=== PATIENT | female | born 1955 | race Caucasian/White ===

== ENCOUNTER 2017-04-27 08:26 | Inpatient (IN) | payer OTHER ==
[2017-04-17 13:00] VITALS: BMI 44.0
--- NOTE | 2017-04-17 13:37 | PAT Medication Instructions ---
Service Date Apr 17, 2017. Current Home Medication List Cholecalciferol (Vitamin D), 1,000 INTER.UNIT PO QAM Diclofenac (Voltaren), 75 MG PO BID Docusate Sodium (Docusate Sodium), 1 CAP PO QAM Furosemide (Lasix), 20 MG PO QAM Hydrocodone/Acetaminophen 5MG/325MG (Beaufort 5MG/325MG), 1 TABLET PO Q6H PRN for N Lisinopril (Zestril), 10 MG PO QAM Lorazepam (Ativan), 0.5 MG PO BID Menthol-Methyl Salicylate (Rosita (Bengay Greaseless), 1 DOSE TOP PRN Nitrofurantoin Macrocrystals (Macrodantin), 50 MG PO QAM Ranitidine (Zantac), 150 MG PO BID Sertraline (Zoloft), 100 MG PO QAM Medication Instructions For Your Scheduled Surgery - Hold the following medications 24 hours prior to surgery: Menthol-Methyl Salicylate (Rosita (Bengay Greaseless), 1 DOSE TOP PRN - Hold the following medications the morning of surgery: Lisinopril (Zestril), 10 MG PO QAM Docusate Sodium (Docusate Sodium), 1 CAP PO QAM Furosemide (Lasix), 20 MG PO QAM Diclofenac (Voltaren), 75 MG PO BID (not told to hold by surgeon) Nitrofurantoin Macrocrystals (Macrodantin), 50 MG PO QAM - Take the following medications the morning of surgery with a sip of water: Ranitidine (Zantac), 150 MG PO BID Sertraline (Zoloft), 100 MG PO QAM Lorazepam (Ativan), 0.5 MG PO BID Hydrocodone/Acetaminophen 5MG/325MG (Beaufort 5MG/325MG), 1 TABLET PO Q6H PRN ( can take up to four hours prior to surgery if needed) - Take the following medications as scheduled the night before surgery: Ranitidine (Zantac), 150 MG PO BID Lorazepam (Ativan), 0.5 MG PO BID Hydrocodone/Acetaminophen 5MG/325MG (Beaufort 5MG/325MG), 1 TABLET PO Q6H PRN for N If you have any questions please call us at [phone] or [phone] ( [place]) or [phone]
[2017-04-27] VITALS (9 sets, daily range): BP systolic 100–126; BP diastolic 53–73; PULSE 88–95; TEMP 36.4–37.2; O2SAT 92–96; Ht 172.7 cm; Wt 131.6 kg
[~2017-04-27] VITALS: Ht 172.7 cm; Wt 131.6 kg
[~2017-04-27 08:26] MED LIST: CEFAZOLIN 3000 MG/65 ML D5W IV SCH; CHOL100010 PO; DICL-201 PO; DOCU100C31 PO; FURO-85 PO; HYDR-5688 PO; LACTATED RINGER'S 1000ML 1,000 ML IV SCH; LINICRE61 TOP; LISI-461 PO; LORA-741 PO; NITR1CAP33 PO; SERT-234 PO; ZNTT/150 PO
[2017-04-27] MEDS ORDERED: LIDOCAINE HCL 2% 2 ML VIAL (20MG/ML) ONE (09:41)
[2017-04-27] MEDS ORDERED: MIDAZOLAM HCL 1 MG/ML 2ML VIAL ONE (09:41)
[2017-04-27] MEDS ORDERED: PROPOFOL IV EMULSION 10 MG/ML 20 ML VIAL IV ONE (09:41)
[2017-04-27] MEDS ORDERED: FENTANYL CITRATE INJ 50 MCG/1 ML 2 ML VIAL ONE ×2 (09:41→12:06)
[2017-04-27] MEDS ORDERED: ONDANSETRON INJ 2 MG/ML 2 ML VIAL IV PRN ×2 (10:30→13:15)
[2017-04-27] MEDS ORDERED: HYDROmorphone INJ 1 MG/ML SYR IV PRN (10:30)
[2017-04-27] MEDS ORDERED: EpHEDrine SULFATE INJ 50 MG/ML AMP IV PRN (10:30)
[2017-04-27] MEDS ORDERED: ATROPINE SULFATE 0.1 MG/ML 5ML SYR IV PRN (10:30)
[2017-04-27] MEDS ORDERED: BUPIVACAINE 0.5 % 5 MG/1 ML MPF 30ML VIAL ONE (11:46)
--- NOTE | 2017-04-27 11:47 | History & Physical Bridge Note ---
H&P Re-Evaluation Bridge Note: I have examined the patient, reviewed the History & Physical and in the interval since the performance of the History & Physical I have noted the following changes of clinical significance: No changes noted
[2017-04-27] MEDS ORDERED: CEFAZOLIN SOD 1 GM VIAL ONE (12:03)
[2017-04-27] MEDS ORDERED: ROCURONIUM BROMIDE 10 MG/ML 5 ML VIAL ONE ×2 (12:15→12:31)
[2017-04-27] MEDS ORDERED: DEXAMETHASONE SOD INJ 4 MG/ML VIAL ONE (12:15)
[2017-04-27] MEDS ORDERED: NEOSTIGMINE METHYLSULFATE 5 MG/5 ML SYR ONE ×2 (12:15→13:42)
[2017-04-27] MEDS ORDERED: SUCCINYLCHOLINE 100MG/5ML SYR IV ONE (12:15)
[2017-04-27] MEDS ORDERED: EpHEDrine SULFATE 50MG/5ML SYR ONE (12:15)
[2017-04-27] MEDS ORDERED: GLYCOPYRROLATE INJ 0.2 MG/ML VIAL ONE (12:15)
[2017-04-27] MEDS ORDERED: PHENYLEPHRINE 100MCG/ML 5ML SYR ONE (12:15)
[2017-04-27] MEDS ORDERED: SODIUM CHLORIDE 0.9% 1000ML 1,000 ML IV SCH (13:09)
--- NOTE | 2017-04-27 13:09 | [facility] Post Operative Brief Note ---
Immediate Operative Summary Operative Date Apr 27, 2017. Pre-Operative Diagnosis Ventral hernia without obstruction or gangrene (primary encounter diagnosis) Post-Operative Diagnosis Ventral hernia without obstruction or gangrene (primary encounter diagnosis) Procedure(s) Performed Ventral Hernia Repair Surgeon Dr. Mauro Fink Fur Plucker Surgeon(s) Ingrid Vázquez PA-C Estimated Blood Loss 5mL Findings See dictation Specimens None per surgeon Drains None Anesthesia General Complication(s) None Disposition Recovery Room / PACU
--- NOTE | 2017-04-27 13:13 | Discharge Instructions ---
Discharge Instructions Date of Service Apr 27, 2017. Admission Reason for Admission: Ventral Hernia Discharge Discharge Diagnosis / Problem: Same Discharge Goals Goal(s): Decrease discomfort Activity Recommendations Activity Limitations: per Instructions/Follow-up section Lifting Limitations: no more than 10 pounds (for 6 weeks) Shower/Bathe: keep incision dry (until Thursday) . Instructions / Follow-Up Instructions / Follow-Up ACTIVITY RECOMMENDATIONS: * Walk as much as possible. * No heavy lifting (>10 lbs.) for 6 weeks. SPECIAL CARE INSTRUCTIONS: * Ice to hernia repair site on and off until bedtime tonight. * May shower in Thursday. Let water run over area and pat dry. * Leave bulky dressing on until Thursday * Leave steri strips on for one week. * Wear abdominal binder at all times until seen in office. * Call the surgeon's office with any questions or concerns - (ex. temperature higher than 101 degrees F, excessive bleeding or pain). MEDICATIONS: Resume previous medications unless instructed otherwise by your surgeon. * Ibuprofen 600 mg every 6 hours with food * Percocet 1 every 4 hours, as needed for pain FOLLOW UP VISIT: If not already scheduled, please call the office to schedule a two week follow- up appointment. Office number Current Hospital Diet Patient's current hospital diet: Discharge Diet Recommended Diet: Regular Diet Procedures Procedures Performed: Ventral Hernia Repair Pending Studies Studies pending at discharge: no Medical Emergencies . Who to Call and When: Medical Emergencies: If at any time you feel your situation is an emergency, please call 911 immediately. . Non-Emergent Contact Non-Emergency issues call your: Primary Care Provider, Surgeon Call Non-Emergent contact if: your pain is worsening, wound has increased redness, wound has increased pain . "Provider Documentation" section prepared by Mauro Fink. . VTE Core Measure Inpt VTE Proph given/why not?: Treatment not indicated
[2017-04-27] MEDS ORDERED: MoRPHine SULFATE 4 MG/ML 1 ML CARP\\VIAL IV PRN (13:15)
[2017-04-27] MEDS ORDERED: LABETALOL HCL IV 5 MG/ML 20ML IV ONE (13:42)
[2017-04-27] MEDS ORDERED: HydrALAZINE HCL 20 MG/ML VIAL ONE (13:42)
[2017-04-27] MEDS ORDERED: ALBUTEROL HFA INHALER 8.5 GM INH ONE (13:42)
[2017-04-27] MEDS: FENTANYL CITRATE INJ 50 MCG/1 ML 2 ML VIAL IV PRN ×4 (14:01→14:16)
[2017-04-27] MEDS ORDERED: IV FLUIDS COMPLETED PRN (14:30)
--- NOTE | 2017-04-27 15:11 | Anesthesiology Progress Note ---
Anesthesia Post Op Note Date & Time Apr 27, 2017 at 14:03 Vital Signs Pain Intensity: 4 Vital Signs Past 12 Hours Date Time Temp Pulse Resp B/P (MAP) Pulse Ox O2 Delivery O2 Flow Rate FiO2 04/27/17 13:50 84 20 158/85 94 Oxymask 10 04/27/17 13:40 84 20 164/69 94 Oxymask 10 04/27/17 13:34 36.3 84 20 174/66 93 Oxymask 10 04/27/17 08:51 37.2 93 20 118/53 (74) 92 Room Air Notes Mental Status: alert / awake / arousable, participated in evaluation Pt Amnestic to Procedure: Yes Nausea / Vomiting: adequately controlled Pain: adequately controlled Airway Patency, RR, SpO2: stable & adequate BP & HR: stable & adequate Hydration State: stable & adequate Anesthetic Complications: no major complications apparent The patient is a 61 y/o female with a h/o HTN, GERD, CKD, Anemia, Depression, morbid obesity and possible BERRY s/p ventral hernia repair with Dr. Fink today. Preoperatively, the patient stated that Dr. Fink stated that she my be admitted depending on the size and complexity of her repair. The patient was only saturating 92% on room air this morning. She stated that this is her baseline. Per the patient, she had an extensive workup for her shortness of breath and low sats which was negative stating that it may be due to her hernia. Her lungs were clear to auscultation. Intraoperatively, the patient did well. She was saturating 99-100% on Fi02 of 1.0. On emergence her BP became elevated to 190s/90s-100s. She received 5mg IV labetalol and 10mg IV Hydralazine which improved her BPs to the 140s-150s/60s- 70s. In recovery, she was saturating 92% on 5L nc. She is a shallow breather. She does have an abdominal binder in place which also makes it more difficult for her to take deep breaths. Her lungs remain clear to auscultation. She was given an incentive spirometer and she was sitting up in bed. I discussed the patient with Dr. Danae Mclean's PA and she agreed that due to the patient's preoperative respiratory status and requirement for oxygen postoperatively that it would be best to keep the patient overnight on continuous pulse oximetry. The patient will be transferred to the floor on continuous pulse oximetry. She is currently saturating 93% on 5L FM.
[2017-04-27] MEDS ORDERED: NURSING VERBAL MED ORDER ONE (16:15)
[2017-04-27] MEDS: OXYCODONE/ACETAMINOPHEN 5-325 TAB PO PRN ×2 (17:19→23:32)
[2017-04-27] MEDS: RANITIDINE HCL 150 MG TAB PO SCH (20:49)
[2017-04-27] MEDS: DICLOFENAC SOD EC 75 MG TABCR PO SCH (20:49)
[2017-04-27] MEDS: LORAZEPAM 0.5 MG TAB PO SCH (20:49)
--- NOTE | 2017-04-27 22:49 | OPERATIVE REPORT ---
DATE OF OPERATION: 04/27/2017 PREOPERATIVE DIAGNOSIS: Ventral hernia. POSTOPERATIVE DIAGNOSIS: Same. PROCEDURE: Repair of ventral hernia. SURGEON: Mauro Fink MD TRAIN CREW MEMBER: Ingrid Vázquez PA-C FINDINGS: The patient had a hernia defect measuring approximately 3.5 cm. The hernia sac; however, was the size of a baseball. There was fat within the hernia, but there was no bowel. Some of the fat was adhesed to the inside of the hernia sac. There were no other defects identified. TECHNIQUE: The patient was given a general anesthetic and the area was prepped and draped in the usual sterile fashion. A previously marked incision was made working superior to inferior over the hernia. The hernia sac was easily identified, off the dermis of the overlying skin and then away from the surrounding connective tissue using cautery and blunt dissection where appropriate. This dissection was carried down and I had to peel the sac off the anterior surface of the fascia in order to then identify the edges of the fascial defect. I was then able to establish the edges of the fascial defect and beginning on the left side I was able to establish a plane between the peritoneum and the fascia. I had to first open the sac and separate any adhesions of the fat that was within it and then was able to reduce all of that fat back into the abdomen. The hernia sac was closed with a running 2-0 Vicryl. The dissection of the peritoneum and the preperitoneal space was then completed superiorly, inferiorly and to the left. Hemostasis was obtained using electrocautery. A 12.5 cm round Surgimesh was then placed in the preperitoneal retrofascial space. It was lying flat. It was secured to the undersurface of the fascia in 4 quadrants using 0 PDS horizontal mattress sutures. The fascial defect was then closed with a running #1 PDS. The skin was closed with a running 3-0 Vicryl and the subcutaneous tissue and then a 4-0 Monocryl in a running fashion for the skin. The incision was anesthetized with 0.5% Marcaine. The skin was cleansed, dried, benzoin placed, Steri-Strips applied and a pressure dressing was applied. Estimated blood loss was 5 mL. Sponge, needle and instrument counts were correct prior to closure. The patient tolerated the surgical procedure without complication and was transferred to recovery. I attest to the content of the Intraoperative Record and any orders documented therein. Any exceptions are noted below. MTDD
[2017-04-28] VITALS (11 sets, daily range): BP systolic 116–143; BP diastolic 50–71; PULSE 76–94; TEMP 36.4–36.8; O2SAT 86–96
--- NOTE | 2017-04-28 07:35 | Anesthesiology Progress Note ---
Anesthesia Post Op Note Date & Time Apr 28, 2017 at 07:35 Vital Signs Vital Signs Past 12 Hours Date Time Temp Pulse Resp B/P (MAP) Pulse Ox O2 Delivery O2 Flow Rate FiO2 04/28/17 07:06 94 Nasal Cannula 1.0 04/28/17 03:40 94 96 Nasal Cannula 2.0 04/28/17 03:32 36.8 76 18 132/70 (90) 95 Nasal Cannula 5.0 04/27/17 23:30 96 Mask 5.0 04/27/17 22:43 36.7 88 14 123/73 (90) 96 Non-Rebreather 5.0 Notes Mental Status: alert / awake / arousable, participated in evaluation Pt Amnestic to Procedure: Yes Nausea / Vomiting: adequately controlled Pain: adequately controlled Airway Patency, RR, SpO2: stable & adequate BP & HR: stable & adequate Hydration State: stable & adequate Anesthetic Complications: no major complications apparent
[2017-04-28] MEDS: OXYCODONE/ACETAMINOPHEN 5-325 TAB PO PRN ×2 (07:53→15:20)
[2017-04-28] MEDS: LORAZEPAM 0.5 MG TAB PO SCH ×2 (08:35→20:35)
[2017-04-28] MEDS: DICLOFENAC SOD EC 75 MG TABCR PO SCH ×2 (08:35→20:35)
[2017-04-28] MEDS: DOCUSATE SODIUM 100 MG CAP PO SCH (08:35)
[2017-04-28] MEDS: RANITIDINE HCL 150 MG TAB PO SCH ×2 (08:35→20:35)
[2017-04-28] MEDS: NITROFURANTOIN MACROCRYSTALS 50 MG CAP PO SCH (08:35)
[2017-04-28] MEDS: LISINOPRIL 10 MG TAB PO SCH (08:35)
[2017-04-28] MEDS: SERTRALINE HCL 100 MG TAB PO SCH (08:35)
[2017-04-28] MEDS: FUROSEMIDE 20 MG TAB PO SCH (08:35)
[2017-04-28] MEDS: CHOLECALCIFEROL 1000 INTER.UNIT TAB PO SCH (08:35)
--- NOTE | 2017-04-28 09:07 | Surgery Progress Note ---
Surgery Progress Note Date of Service Apr 28, 2017. Subjective Post OP Day: 1 (S/p ventral hernia repair with mesh) + feeling well, + flatus, + pain controlled (pain currently 7 out of 10, percocet helps), + diet (regular diet), No complaints, No chest pain, No SOB, No bowel movement, No nausea, No vomiting Patient was on 1 Liter of O2 this morning on first encounter with saturations of 94-96% She was taken off O2 for breakfast and was 86% on room air Patient states she is not short of breath sitting down just when she is exerting herself and her oxygen saturations tends to go down when she is eating Sister present in room when patient was reevaluated around 10:30 am said that their mother had scleroderma. Objective Vital Signs: Date Time Temp Pulse Resp B/P (MAP) Pulse Ox O2 Delivery O2 Flow Rate FiO2 04/28/17 07:56 36.4 80 20 120/50 (73) 94 Nasal Cannula 2.0 04/28/17 07:55 94 Nasal Cannula 2.0 04/28/17 07:06 94 Nasal Cannula 1.0 04/28/17 03:40 94 96 Nasal Cannula 2.0 04/28/17 03:32 36.8 76 18 132/70 (90) 95 Nasal Cannula 5.0 04/27/17 23:30 96 Mask 5.0 04/27/17 22:43 36.7 88 14 123/73 (90) 96 Non-Rebreather 5.0 04/27/17 18:11 37.0 95 18 122/55 (77) 92 Mask 5.0 04/27/17 16:58 36.7 90 18 125/67 (86) 96 Mask 5.0 04/27/17 15:56 36.7 95 20 126/69 (88) 95 Mask 5.0 04/27/17 15:30 36.6 90 18 125/69 (87) 95 Mask 5.0 04/27/17 15:15 94 Nasal Cannula 5.0 04/27/17 15:15 5.0 04/27/17 15:12 36.4 90 20 100/53 (69) 94 Nasal Cannula 5.0 04/27/17 14:40 37.2 91 20 157/66 93 Oxymask 5 94 04/27/17 14:30 91 20 139/71 93 Oxymask 5 04/27/17 14:20 84 20 149/67 93 Nasal Cannula 5 04/27/17 14:10 84 20 147/60 94 Oxymask 7 04/27/17 14:00 84 20 155/69 94 Oxymask 7 04/27/17 13:50 84 20 158/85 94 Oxymask 10 04/27/17 13:40 84 20 164/69 94 Oxymask 10 04/27/17 13:34 36.3 84 20 174/66 93 Oxymask 10 General Appearance: WD/WN, no apparent distress Head: normocephalic, atraumatic Neck: trachea midline Respiratory/Chest: no respiratory distress, no accessory muscle use, + pertinent finding (currently on 1 L o2 via NC) Abdomen: soft, + distended (slightly distended at incision site), + tenderness (at incision site, no rebound, guarding, or peritonitis) Incision(s): clean, dry, intact, no erythema, no drainage, findings (steri strips present) Assessment & Plan POD #1 s/p ventral hernia repair with mesh - vitals stable - O2 currently being weaned, only on 1 liter of O2 via NC - On re-examination, patient was on 1 liter of O2 via NC given O2 sat of 86% on room air during breakfast. Sats 92-97%. No shortness of breath or chest pain. - pain moderate, controlled with Percocet per patient - tolerating regular diet - urinating without difficulty Plan: Hospitalist consult given Hypoxia She has had extensive work-up as an outpatient for dyspnea. No significant findings. However she became 86% on room air this morning. Given this would like Hospitalist to see her and evaluate her. Continue regular diet Continue pain medication as needed Continue home medications Encourage OOB to chair and ambulation with assistance Continue abdominal binder Dr. Fink has seen and examined patient, agrees with above.
--- NOTE | 2017-04-28 15:57 | Medical Consult ---
Consultation Date of Consultation: Apr 28, 2017. Attending Physician: Mauro Fink M.D. Reason for Consultation: hypoxia History of Present Illness Patient seen and examined after undergoing ventral hernia repair yesterday by Dr. Fink. Pt states incision area pain is controlled but does have pain with deep inspiration. This morning postoperatively patient's oxygen was taken off while she was eating breakfast and O2 sat dropped to 86%. She is now saturating 93-94% on 1 liter. I took her oxygen off during conversation and her O2 sat again dropped to 86-87% on RA. She is not on home oxygen, although she did require it 1.5 years ago when recovering from pneumonia. Patient has chronic dyspnea on exertion x 6 years. No recent change from baseline. Patient reports having outpatient workup including credit reference clerk evaluation (Dr. Rice), PFTs, cardiology evaluation. Pt had negative stress echo in 11/2016 and CXR and BNP which were unremarkable. PFT's in 12/2016 showed restriction possibly due to obesity. Per [facility] cardiology visit note Dr. Himanshu Munoz at [place], if workup was negative he suggested BERRY should be entertained and possibly a sleep study referral. Patient has not had sleep study in the past. She is unsure if she snores. Denies morning headaches or daytime somnolence. Denies feeling SOB at rest, cough, aspiration, chest pain. She is tolerating her diet without any N/V and passing flatus. Past Medical/Surgical History Medical Problems: (1) Anxiety Status: Chronic (2) CKD (chronic kidney disease), stage III Status: Chronic (3) Depression Status: Chronic (4) GERD (gastroesophageal reflux disease) Status: Chronic (5) HTN (hypertension) Status: Chronic (6) Notalgia paresthetica Status: Chronic (7) Obesity, morbid, BMI 40.0-49.9 Status: Chronic (8) Recurrent UTI Status: Chronic Surgical Problems: (1) H/O arthroscopy of knee Status: Chronic (2) H/O cystoscopy Status: Chronic (3) H/O gastric bypass Permanent Comment: 1980, reversed in same year Status: Chronic (4) S/P adenoidectomy Status: Chronic (5) S/p removal of kidney stone Status: Chronic Family History Scleroderma MOTHER (CREST syndrome) Social History Smoking Status: Former Smoker (quit 10 years ago. prior 1 pack per week. plus 13 years of second hand smoke from her ex-) Alcohol Use: none Marital Status: Housing Status: lives alone Occupation Status: disabled Allergies Coded Allergies: Levofloxacin (Verified Allergy, Unknown, LE swelling and blistering, ) Shellfish (Verified Allergy, Unknown, NAUSEA,DIARRHEA, VOMITING, 04/27/17) Sulfa Antibiotics (Verified Adverse Reaction, Intermediate, N/V, 04/27/17) Adhesives (Verified Adverse Reaction, Mild, SKIN BLISTERS SOME TIMES, 04/27) Clindamycin (Verified Adverse Reaction, Unknown, PT CONTRACTED C-DIFF, ) Home Medications Active Reported Bengay Greaseless (Menthol-Methyl Salicylate (Rosita) 1 Cre Cre 1 Dose TOP PRN Docusate Sodium 100 Mg Cap 1 Cap PO QAM 7 Days Voltaren (Diclofenac Sodium) 75 Mg Tabcr 75 Mg PO BID WITH FOOD Macrodantin (Nitrofurantoin Macrocrystals) 50 Mg Cap 50 Mg PO QAM Zestril (Lisinopril) 10 Mg Tab 10 Mg PO QAM Zoloft (Sertraline HCl) 100 Mg Tab 100 Mg PO QAM Lasix (Furosemide) 20 Mg Tab 20 Mg PO QAM Ativan (Lorazepam) 0.5 Mg Tab 0.5 Mg PO BID Zantac (Ranitidine HCl) 150 Mg Tab 150 Mg PO BID Vitamin D (Cholecalciferol) 1,000 Inter.unit Tab 1,000 Inter.unit PO QAM Current Inpatient Medications Current Inpatient Medications Medications (Trade) Dose Ordered Sig/Ashlie Route Start Time Stop Time Status Last Admin Dose Admin Oxycodone/ Acetaminophen (Percocet 5-325mg Tab) 1 tab Q4H PRN PO 04/27/17 13:15 05/11/17 13:14 04/28/17 07:53 1 TAB Morphine Sulfate (MoRPHine SULFATE INJ) 4 mg Q1H PRN IV 04/27/17 13:15 05/11/17 13:14 Ondansetron HCl (Zofran Inj) 4 mg Q4H PRN IV 04/27/17 13:15 05/27/17 13:14 Cholecalciferol (Vitamin D Tab) 1,000 inter.unit QAM PO 04/28/17 09:00 05/28/17 08:59 04/28/17 08:35 1,000 INTER.UNIT Diclofenac Sodium (Voltaren Tab) 75 mg BID PO 04/27/17 21:00 05/27/17 20:59 04/28/17 08:35 75 MG Docusate Sodium (coLACE CAP) 100 mg QAM PO 04/28/17 09:00 05/28/17 08:59 04/28/17 08:35 100 MG Furosemide (Lasix Tab) 20 mg QAM PO 04/28/17 09:00 05/28/17 08:59 04/28/17 08:35 20 MG Lisinopril (Zestril Tab) 10 mg QAM PO 04/28/17 09:00 05/28/17 08:59 04/28/17 08:35 10 MG Lorazepam (Ativan Tab) 0.5 mg BID PO 04/27/17 21:00 05/27/17 20:59 04/28/17 08:35 0.5 MG Nitrofurantoin Macrocrystals (Macrodantin Cap) 50 mg QAM PO 04/28/17 09:00 05/08/17 08:59 04/28/17 08:35 50 MG Ranitidine HCl (zANTac TAB) 150 mg BID PO 04/27/17 21:00 05/27/17 20:59 04/28/17 08:35 150 MG Sertraline HCl (Zoloft Tab) 100 mg QAM PO 04/28/17 09:00 05/28/17 08:59 04/28/17 08:35 100 MG Miscellaneous (Iv Fluids Completed) 1 ea PRN PRN N/A 04/27/17 14:30 04/27/18 14:29 Review of Systems Ten systems reviewed and negative except as noted in HPI. Physical Exam Date Time Temp Pulse Resp B/P (MAP) Pulse Ox O2 Delivery O2 Flow Rate FiO2 04/28/17 09:26 93 Nasal Cannula 1.0 04/28/17 09:26 86 Room Air 04/28/17 07:56 36.4 80 20 120/50 (73) 94 Nasal Cannula 2.0 04/28/17 07:55 94 Nasal Cannula 2.0 04/28/17 07:06 94 Nasal Cannula 1.0 04/28/17 03:40 94 96 Nasal Cannula 2.0 04/28/17 03:32 36.8 76 18 132/70 (90) 95 Nasal Cannula 5.0 04/27/17 23:30 96 Mask 5.0 04/27/17 22:43 36.7 88 14 123/73 (90) 96 Non-Rebreather 5.0 04/27/17 18:11 37.0 95 18 122/55 (77) 92 Mask 5.0 04/27/17 16:58 36.7 90 18 125/67 (86) 96 Mask 5.0 04/27/17 15:56 36.7 95 20 126/69 (88) 95 Mask 5.0 04/27/17 15:30 36.6 90 18 125/69 (87) 95 Mask 5.0 04/27/17 15:15 94 Nasal Cannula 5.0 04/27/17 15:15 5.0 04/27/17 15:12 36.4 90 20 100/53 (69) 94 Nasal Cannula 5.0 04/27/17 14:40 37.2 91 20 157/66 93 Oxymask 5 94 04/27/17 14:30 91 20 139/71 93 Oxymask 5 04/27/17 14:20 84 20 149/67 93 Nasal Cannula 5 04/27/17 14:10 84 20 147/60 94 Oxymask 7 04/27/17 14:00 84 20 155/69 94 Oxymask 7 04/27/17 13:50 84 20 158/85 94 Oxymask 10 04/27/17 13:40 84 20 164/69 94 Oxymask 10 04/27/17 13:34 36.3 84 20 174/66 93 Oxymask 10 General Appearance: no apparent distress, + obese, + pertinent finding (alert cooperative morbidly obese 61 year old female, sister at bedside) Head: normocephalic, atraumatic Eyes: normal inspection, PERRL, sclerae normal ENT: hearing grossly normal, pharynx normal Neck: supple, trachea midline Respiratory/Chest: lungs clear, normal breath sounds, no respiratory distress, no accessory muscle use, + pertinent finding (saturating 94-95% on 1 liter NC, desaturated to 86-87% on RA) Cardiovascular: regular rate, rhythm, no murmur Abdomen/GI: normal bowel sounds, + pertinent finding (abdominal binder in place s/p ventral hernia surgery) Extremities/Musculoskelatal: no calf tenderness, no pedal edema Neurologic/Psych: alert, oriented x 3 Skin: normal color, warm/dry Assessment & Plan S/P VENTRAL HERNIA REPAIR POD #[address] Fink Pain control, wound care, activity per general surgery Continue incentive spirometry HYPOXIA Was hypoxic to 86% on RA when O2 removed after surgery; saturating well on 1 liter NC May have obesity hypoventilation Denies feeling SOB at rest; has chronic VINSON x 6 years which is stable; had extensive workup as outpatient- credit reference clerk evaluation (Dr. Rice), cardiology evaluation (Dr. Himanshu Munoz at [place]), negative stress echo in 11/2016, unremarkable CXR and BNP and CXR and BNP; PFT's in 12/2016- restriction possibly due to obesity Aluminum Boat Inspector suggested possible sleep study referral if workup negative Continue supplemental O2 Nocturnal pulse oximetry 2 step prior to discharge Recommend outpatient sleep study HYPERTENSION BP is stable Resume lisinopril and furosemide in am CKD STAGE III Monitor renal function Avoid nephrotoxins DEPRESSION Continue sertraline DVT PROPHYLAXIS Per general surgery DISPOSITION Per general surgery Patient seen in collaboration with Dr. Stratton. Please see his addendum. Patient will be followed by Dr. Silverman tomorrow AM. Attending Addendum: The patient was seen and examined Gets SOB on minimal exertion and has to take rest Has had evaluation by the Cardiology and Pulmonary before to find out the cause of SOB with Hypoxemia Stress test and PFTs were unremarkable Got SOB with low saturation after surgery O/E Obese ,Not in any acute distress Hemodynamically stable Chest-clear to auscultate bilaterally Heart-regular,no murmur appreciated Abdomen-benign,s/p repair of ventral Hernia Extremities-negative for any edema Labs and Imaging studies were reviewed Agree with the assessment and Plan Will need [address] Elpidio Stratton
[2017-04-29 06:40] LABS: BUN/CREATININE RATIO 26.8 (10-20); CALCIUM 8.4 mg/dl (8.5-10.1); POTASSIUM 4.9 mmol/L (3.5-5.1)
[2017-04-29 07:15] VITALS: O2SAT 92
[2017-04-29 08:08] VITALS: BP 114/74; PULSE 77; TEMP 36.6; O2SAT 95
[2017-04-29] MEDS: DOCUSATE SODIUM 100 MG CAP PO SCH (08:40)
[2017-04-29] MEDS: CHOLECALCIFEROL 1000 INTER.UNIT TAB PO SCH (08:40)
[2017-04-29] MEDS: NITROFURANTOIN MACROCRYSTALS 50 MG CAP PO SCH (08:40)
[2017-04-29] MEDS: RANITIDINE HCL 150 MG TAB PO SCH (08:40)
[2017-04-29] MEDS: SERTRALINE HCL 100 MG TAB PO SCH (08:40)
[2017-04-29] MEDS: DICLOFENAC SOD EC 75 MG TABCR PO SCH (08:40)
[2017-04-29] MEDS: FUROSEMIDE 20 MG TAB PO SCH (08:40)
[2017-04-29] MEDS: LISINOPRIL 10 MG TAB PO SCH (08:40)
[2017-04-29] MEDS: LORAZEPAM 0.5 MG TAB PO SCH (08:42)
[2017-04-29] MEDS: OXYCODONE/ACETAMINOPHEN 5-325 TAB PO PRN ×2 (08:42→13:37)
[2017-04-29] MEDS ORDERED: IV FLUIDS COMPLETED PRN (09:00)
[2017-04-29 09:02] VITALS: O2SAT 95
--- NOTE | 2017-04-29 09:09 | Surgery Progress Note ---
Surgery Progress Note Date of Service Apr 29, 2017. Subjective Post OP Day: 2 + feeling well, + ambulating, + SOB (with ambulation, baseline, has been chronic for 6 years), + flatus, + pain controlled, + diet (regular diet), No complaints, No chest pain, No bowel movement, No nausea, No vomiting Objective Vital Signs: Date Time Temp Pulse Resp B/P (MAP) Pulse Ox O2 Delivery O2 Flow Rate FiO2 04/29/17 09:02 95 Nasal Cannula 04/29/17 08:08 36.6 77 16 114/74 (87) 95 Room Air 04/29/17 07:15 92 Room Air 04/28/17 23:20 Nasal Cannula 2.0 04/28/17 23:16 36.5 82 16 116/68 (84) 96 Nasal Cannula 2.0 04/28/17 22:30 87 Room Air 04/28/17 16:57 95 Nasal Cannula 1.0 04/28/17 15:09 36.7 82 18 143/69 (93) 95 Nasal Cannula 1.0 04/28/17 12:08 36.5 81 20 128/71 (90) 92 Nasal Cannula 2.0 04/28/17 09:26 93 Nasal Cannula 1.0 04/28/17 09:26 86 Room Air General Appearance: no apparent distress, + obese Head: normocephalic, atraumatic Neck: trachea midline Respiratory/Chest: lungs clear, normal breath sounds, no respiratory distress, no accessory muscle use Cardiovascular: regular rate, rhythm, no murmur Abdomen: non distended, soft, + tenderness (appropriate post op at incision site, slight edema at incision site) Incision(s): clean, dry, intact, no erythema, no drainage Laboratory Results: Results Past 24 Hours Test 04/29/17 05:25 Range/Units Sodium Level 138 136-145 mmol/L Potassium Level 4.9 3.5-5.1 mmol/L Chloride Level 104 98-107 mmol/L Carbon Dioxide Level 27 21-32 mmol/L Anion Gap 7.0 3-11 mmol/L Blood Urea Nitrogen 27 7-18 mg/dl Creatinine 1.00 0.60-1.20 mg/dl Est Creatinine Clear Calc Drug Dose 82.7 ml/min Estimated GFR () 69.4 Estimated GFR (Non- 59.9 BUN/Creatinine Ratio 26.8 10-20 Random Glucose 130 70-99 mg/dl Calcium Level 8.4 8.5-10.1 mg/dl Assessment & Plan POD #2 s/p ventral hernia repair with mesh - vitals stable - Currently on 2 liters of O2 - pain moderate, controlled with Percocet per patient - tolerating regular diet - urinating without difficulty Plan: Hospitalist consult given Hypoxia- plan for 2 step exercise test prior to discharge Continue, continuous pulse ox Continue pain management with PO Percocet Continue regular diet will await hospitalist evaluation today and their recommendations From surgical standpoint patient can be discharged however awaiting results for exercise test given Hypoxia on room air 85-86%. Dr. Argueta has seen and examined patient, agrees with above Pt seen and examined. Doing well. Will be stable for d/c once medical issues resolved (w/u of shortness of breath).
[2017-04-29] MEDS ORDERED: OXYC-57 PO (13:56)
[2017-04-29 13:58] VITALS: BP 114/74; PULSE 77; TEMP 36.6; O2SAT 95
--- NOTE | 2017-04-29 16:26 | Discharge Summary ---
Discharge Summary Dates Admission Date / Time: Apr 29, 2017 at 07:27 Discharge Date: Apr 29, 2017 Dispostion / Condition Discharge Disposition: Home Condition at Discharge: Good Principal Diagnosis (1) Ventral hernia Problem List (1) Dyspnea on exertion (2) Obesity, morbid, BMI 40.0-49.9 (3) Ventral hernia Consultations / Procedures Consultations: Medicine Procedures: Open ventral hernia repair with mesh Pending Studies / Follow-Up Follow-up with PCP in regards to BERRY testing given chronic dyspnea and hypoxia Medication Reconciliation New Medications: Oxycodone/Acetaminophen 5MG/325MG (Percocet 5MG/325MG) Tab 1 TABLET PO Q4H PRN for Pain, #18 TAB PAIN Continued Medications: Cholecalciferol (Vitamin D) 1,000 Inter.unit Tab 1000 INTER.UNIT PO QAM, TAB Diclofenac (Voltaren) 75 Mg Tabcr 75 MG PO BID, TAB WITH FOOD Docusate Sodium (Docusate Sodium) 100 Mg Cap 1 CAP PO QAM for 7 Days, #7 CAP Furosemide (Lasix) 20 Mg Tab 20 MG PO QAM, TAB Lisinopril (Zestril) 10 Mg Tab 10 MG PO QAM, TAB Lorazepam (Ativan) 0.5 Mg Tab 0.5 MG PO BID, TAB Menthol-Methyl Salicylate (Rosita (Bengay Greaseless) 1 Cre Cre 1 DOSE TOP PRN Nitrofurantoin Macrocrystals (Macrodantin) 50 Mg Cap 50 MG PO QAM, CAP Ranitidine (Zantac) 150 Mg Tab 150 MG PO BID, TAB Sertraline (Zoloft) 100 Mg Tab 100 MG PO QAM, TAB Admission HPI Per the Admitting provider: Patient was scheduled for elective ventral hernia repair with mesh by Dr. Fink on Thursday04/27/2017. She tolerated procedure well without any complications however her oxygen saturations were low prior to surgery about 92 % room air and she required 10 liters of O2 post operatively for some time. It was recommended patient be admitted to the hospital post operatively with continuous pulse ox for evaluation overnight. Hospital Course (1) Ventral hernia Patient underwent elective ventral hernia repair with Mesh without any complications. She required 10 liters of oxygen post op therefore it was recommended she stay for observation on continuous pulse ox. Post op orders included diet advanced as tolerated, IV Morphine and PO Percocet as needed for pain, Iv Zofran, home medications, and IV fluids were discontinued post op. She did well from a surgical standpoint post operatively. Pain was moderate but controlled with Percocet on POD # 1. She tolerated regular diet without difficulty however when she was eating her O2 Saturations dropped to 86% on room air. She required at least 2 liters of O2 since surgery. Medicine was consulted for further evaluation. They recommended continuous pulse ox, pulse ox study, and 2 step exercise test prior to discharge. She passed her exercise test and was discharged on POD # 2 in stable condition. Overall hospital course was uneventful. (2) Hypoxia please refer to above Discharge Instructions as given to patient Copies To Primary Care Provider: Remy Ruiz M.D.. Problem Qualifiers (1) Ventral hernia: Obstruction and gangrene presence: without obstruction or gangrene Qualified Codes: K43.9 - Ventral hernia without obstruction or gangrene
--- NOTE | 2017-04-29 18:44 | Progress Note ---
Internal Med Progress Note Date of Service: Apr 29, 2017. Provider Documentation: SUBJECTIVE: resting comfortably says she did fine in morning without oxygen afebrile no chest pain or sob no cough OBJECTIVE: Vital Signs-as noted below Exam: General-alert and oriented. Not in distress ENT-normal hearing Neck-no neck masses Lungs-cta b/l no wheezing or crackles Heart-s1 and s2 heard regular no murmurs Abdomen-soft bowel sounds present s/p ventral hernia repair no distension Extremities-no edema no erythema Neuro-alert and oriented moves extremities Lab data as noted below. ASSESSMENT & PLAN: S/P VENTRAL HERNIA REPAIR POD #[address] Fink Pain control, wound care, activity per general surgery Continue incentive spirometry stable HYPOXIA Was hypoxic to 86% on RA when O2 removed after surgery; saturating well on 1 liter NC May have obesity hypoventilation most likely secondary to post op state Nocturnal pulse oximetry 2 step prior ok follows with pulmonary Recommend outpatient sleep study HYPERTENSION BP is stable Resume lisinopril and furosemide CKD STAGE III Monitor renal function Avoid nephrotoxins DEPRESSION Continue sertraline DVT PROPHYLAXIS Per general surgery DISPOSITION as per surgery Vital Signs: Date Time Temp Pulse Resp B/P (MAP) Pulse Ox O2 Delivery O2 Flow Rate FiO2 04/29/17 13:58 36.6 77 16 95 Room Air 04/29/17 09:02 95 Nasal Cannula 04/29/17 08:08 36.6 77 16 114/74 (87) 95 Room Air 04/29/17 07:15 92 Room Air 04/28/17 23:20 Nasal Cannula 2.0 04/28/17 23:16 36.5 82 16 116/68 (84) 96 Nasal Cannula 2.0 04/28/17 22:30 87 Room Air Lab Results: Results Past 24 Hours Test 04/29/17 05:25 Range/Units Sodium Level 138 136-145 mmol/L Potassium Level 4.9 3.5-5.1 mmol/L Chloride Level 104 98-107 mmol/L Carbon Dioxide Level 27 21-32 mmol/L Anion Gap 7.0 3-11 mmol/L Blood Urea Nitrogen 27 7-18 mg/dl Creatinine 1.00 0.60-1.20 mg/dl Est Creatinine Clear Calc Drug Dose 82.7 ml/min Estimated GFR () 69.4 Estimated GFR (Non- 59.9 BUN/Creatinine Ratio 26.8 10-20 Random Glucose 130 70-99 mg/dl Calcium Level 8.4 8.5-10.1 mg/dl
[2017-09-17] MEDS ORDERED: CHOL1000 PO (12:05)
[2017-09-17] MEDS ORDERED: FERR1TAB13 PO (12:05)
[2017-09-17] MEDS ORDERED: DICY20TA10 PO (12:05)
== END 2017-04-29 15:05 | disposition home or self-care (01) | DRG 354 ==
LOC: C.ACU 08:26 → C.MSW 08:45 → ENRESERV 14:27 → OBSVTOIN 04-29 07:27
PROVIDERS: ADMIT Surgery; ATTEND Surgery
PROC: 0WQF0ZZ Repair Abdominal Wall, Open Approach (ICD-10-PCS; principal; 2017-04-27 10:20)
PROC: 0WUF0JZ Supplement Abdominal Wall with Synthetic Substitute, Open Approach (ICD-10-PCS; principal; 2017-04-27 10:20)
DX: K43.9 Ventral hernia without obstruction or gangrene (principal); E66.2 Morbid (severe) obesity with alveolar hypoventilation; Z68.41 Body mass index [BMI] 40.0-44.9, adult; N18.3 Chronic kidney disease, stage 3 (moderate); K21.9 Gastro-esophageal reflux disease without esophagitis; I12.9 Hypertensive chronic kidney disease with stage 1 through stage 4 chronic kidney disease, or unspecified chronic kidney disease; F32.9 Major depressive disorder, single episode, unspecified; F41.9 Anxiety disorder, unspecified; Z87.891 Personal history of nicotine dependence; Z79.899 Other long term (current) drug therapy

== ENCOUNTER → 2017-09-25 | Day surgery (SDC) | payer OTHER ==
[2017-09-17 12:07] VITALS: BMI 43.0
[~2017-09-25] VITALS: Ht 172.7 cm; Wt 129.6 kg
[~2017-09-25] MED LIST changes: +ATROPINE SULFATE 0.1 MG/ML 5ML SYR IV PRN; -CEFAZOLIN 3000 MG/65 ML D5W IV SCH; +CHOL1000 PO; -CHOL100010 PO; +DICY20TA10 PO; +EpHEDrine SULFATE INJ 50 MG/ML AMP IV PRN; +FERR1TAB13 PO; -HYDR-5688 PO; -LACTATED RINGER'S 1000ML 1,000 ML IV SCH; +LIDOCAINE HCL 2% 2 ML VIAL (20MG/ML) ONE; -LINICRE61 TOP; +MIDAZOLAM HCL 1 MG/ML 2ML VIAL ONE; +ONDANSETRON INJ 2 MG/ML 2 ML VIAL ONE; +PROPOFOL IV EMULSION 10 MG/ML 20 ML VIAL IV ONE; +SODIUM CHLORIDE 0.9% 500ML 500 ML IV ONE
[2017-09-25 08:16] VITALS: Ht 172.7 cm; Wt 129.6 kg
--- NOTE | 2017-09-25 09:23 | Endo History and Physical ---
History & Physical Date of Service: Sep 25, 2017. Chief Complaint: ABDOMINAL PAIN, BLOATING, SCREENING FOR COLON CANCER Referring Physician: DR GOYO BRODERICK History of Present Illness pt with abdominal pain and need for screening colonoscopy. Past Medical History Anxiety, Reflux, Blood Dyscrasias, Hypertension, Other, Depression Past Surgical History Hx Cardiac Surgery: No Hx Internal Defibrillator: No Hx Pacemaker: No Hx Abdominal Surgery: Yes (GASTRIC STAPLING, REVERSAL OF GASTRIC STAPLING, VENTRAL HERNIA REPAIR) Hx of Implantable Prosthesis: No Hx Post-Op Nausea and Vomiting: No Hx Cancer Surgery: No Hx Thoracic Surgery: No Hx Orthopedic: Yes (LT KNEE SCOPE) Hx Urinary Tract Surgery: Yes (LITHOTRIPSY/STENT (12/2015)) Family History None Social History Smoking Status: Former Smoker Hx Substance Use: No Hx Alcohol Use: No Allergies Coded Allergies: Levofloxacin (Verified Allergy, Unknown, LE swelling and blistering, ) Shellfish (Verified Allergy, Unknown, NAUSEA,DIARRHEA, VOMITING, 09/17/17) Sulfa Antibiotics (Verified Adverse Reaction, Intermediate, N/V, 09/17/17) Adhesives (Verified Adverse Reaction, Mild, SKIN BLISTERS SOME TIMES, 09/17) Clindamycin (Verified Adverse Reaction, Unknown, PT CONTRACTED C-DIFF, 09/17/17) Current Medications Reported Home Medications Medications Dose Route/Sig Max Daily Dose Days Date Category Dose Instructions Dicyclomine Hcl 20 Mg Tab 1 Tab PO BID 09/17/17 Reported Vitamin D3 (Cholecalciferol) 1,000 Unit Tab 1 Tab PO QAM 09/17/17 Reported Kp Ferrous Sulfate (Ferrous Sulfate) 325 Mg Tab 1 Tab PO BID 09/17/17 Reported Docusate Sodium 100 Mg Cap 1 Cap PO BID 04/17/17 Reported Voltaren (Diclofenac Sodium) 75 Mg Tabcr 75 Mg PO BID 04/17/17 Reported WITH FOOD Macrodantin (Nitrofurantoin Macrocrystals) 50 Mg Cap 50 Mg PO QAM 04/17/17 Reported Zestril (Lisinopril) 10 Mg Tab 10 Mg PO QAM 01/08/16 Reported Zoloft (Sertraline HCl) 100 Mg Tab 100 Mg PO QAM 12/13/15 Reported Lasix (Furosemide) 20 Mg Tab 20 Mg PO QAM 12/13/15 Reported Ativan (Lorazepam) 0.5 Mg Tab 0.5 Mg PO BID 12/13/15 Reported Zantac (Ranitidine HCl) 150 Mg Tab 150 Mg PO BID 12/13/15 Reported Vital Signs Weight (Kilograms): 129.55 Height (Feet): 5 Height (Inches): 8 Date Time Temp Pulse Resp B/P (MAP) Pulse Ox O2 Delivery O2 Flow Rate FiO2 09/25/17 08:15 36.8 92 20 153/69 (97) 92 Room Air Physical Exam General Appearance: no apparent distress Respiratory/Chest: Auscultation: breath sounds normal Cardiovascular: Heart Auscultation: RRR Abdomen: Inspection & Palpation: soft Liver: non-tender Assessment and Plan stable for EGD/ [place]
--- NOTE | 2017-09-25 10:10 | Discharge Instructions ---
Endoscopy Patient Instructions Date / Procedure(s) Performed Sep 25, 2017. Colonoscopy, EGD Allergy Information Coded Allergies: Levofloxacin (Verified Allergy, Unknown, LE swelling and blistering, ) Shellfish (Verified Allergy, Unknown, NAUSEA,DIARRHEA, VOMITING, 09/17/17) Sulfa Antibiotics (Verified Adverse Reaction, Intermediate, N/V, 09/17/17) Adhesives (Verified Adverse Reaction, Mild, SKIN BLISTERS SOME TIMES, 09/17) Clindamycin (Verified Adverse Reaction, Unknown, PT CONTRACTED C-DIFF, 09/17/17) Discharge Date / Findings Sep 25, 2017. normal upper and lower endoscopy/ biopsies taken for H. pylori. Medication Instructions Stopped Medication(s): VOLTAREN LAST DOSE 09/22/17 COLACE LAST DOSE 09/23/17 IRON LAST DOSE 09/18/17 Provider Instructions Activity Restrictions - No exercising or heavy lifting for 24 hours. - Do not drink alcohol the day of the procedure. - Do not drive a car or operate machinery until the day after the procedure. - Do not make any important decisions or sign important papers in 24 hours after the procedure. Following Day: - Return to full activity which may include returning to work/school. Diet Start your diet with liquids and light foods (jello, soup, juice, toast). Then eat your usual diet if not nauseated. Treatment For Common After Affects For mild abdominal pain, bloating, or excessive gas: - Rest - Eat lightly - Lie on right side Follow-Up Information Follow-up with DR GOYO BRODERICK as scheduled Anesthesia Information What You Should Know You have had a procedure that required some medicine to reduce anxiety and discomfort. This treatment is called moderate sedation. After receiving the treatment, you may be sleepy, but you will be able to breathe on your own. The effects of the treatment may last for several hours. Follow these instructions along with Activity/Diet recommendations noted above: * Do NOT do anything where dizziness or clumsiness would be dangerous. * Rest quietly at home today, then you can be up and about tomorrow. * Have a responsible person stay with you the rest of today. * You may have had an I.V. today. If so, you may take the dressing off later today. Recommendations Call your doctor if: * Trouble breathing * Continuous vomiting for more than 24 hours * Temperature above 101 degrees * Severe abdominal pain or bloating * Pain not relieved by pain medicine ordered * There is increased drainage or redness from any incision * A large amount of rectal bleeding greater than 2-3 tablespoons. (If you had a polyp/s removed or have hemorrhoids, a small amount of blood - from the rectum is to be expected.) * You have any unanswered questions or concerns. IN THE EVENT OF A SERIOUS EMERGENCY, GO TO THE NEAREST EMERGENCY ROOM Your discharge instructions were prepared by provider Armand Ramírez. Patient Instructions Signature Page Orin Bah Patient (or Guardian) Signature/Date: I have read and understand the instructions given to me by my caregivers. Caregiver/RN/Doctor Signature/Date: The above-named patient and/or guardian has received patient instructions on this date. + Original Patient Signature Page (only) stays with chart. Please make copy for patient.
[2017-09-25 10:46] VITALS: BP 117/70; PULSE 84; O2SAT 92
--- NOTE | 2017-09-25 10:48 | Anesthesiology Progress Note ---
Anesthesia Post Op Note Date & Time Sep 25, 2017 at 10:48 Vital Signs Pain Intensity: 0 Vital Signs Past 12 Hours Date Time Temp Pulse Resp B/P (MAP) Pulse Ox O2 Delivery O2 Flow Rate FiO2 09/25/17 10:29 84 20 122/60 (80) 94 Room Air Mask 09/25/17 10:14 88 16 103/58 (73) 94 Room Air Mask 09/25/17 08:15 36.8 92 20 153/69 (97) 92 Room Air Notes Mental Status: alert / awake / arousable, participated in evaluation Pt Amnestic to Procedure: Yes Nausea / Vomiting: adequately controlled Pain: adequately controlled Airway Patency, RR, SpO2: stable & adequate BP & HR: stable & adequate Hydration State: stable & adequate Anesthetic Complications: no major complications apparent
--- NOTE | 2017-09-25 13:59 | GI REPORT ---
Procedure Date: 09/25/2017 9:33 AM Procedure: Upper GI endoscopy Indications: Epigastric abdominal pain, Abdominal bloating Medicines: See the Anesthesia note for documentation of the administered medications Complications: No immediate complications. Estimated Blood Loss: Estimated blood loss was minimal. Procedure: Pre-Anesthesia Assessment: - Prior to the procedure, a History and Physical was performed, and patient medications, allergies and sensitivities were reviewed. The patient's tolerance of previous anesthesia was reviewed. - The risks and benefits of the procedure and the sedation options and risks were discussed with the patient. All questions were answered and informed consent was obtained. - Patient identification and proposed procedure were verified prior to the procedure by the physician and the nurse. The procedure was verified in the pre-procedure area. - Pre-procedure physical examination revealed no contraindications to sedation. - After reviewing the risks and benefits, the patient was deemed in satisfactory condition to undergo the procedure. After obtaining informed consent, the endoscope was passed under direct vision. Throughout the procedure, the patient's blood pressure, pulse, and oxygen saturations were monitored continuously. The scope was introduced through the mouth, and advanced to the third part of duodenum. The upper GI endoscopy was accomplished without difficulty. The patient tolerated the procedure well. Findings: The esophagus was normal. The entire examined stomach was normal. Biopsies were taken with a cold forceps for Helicobacter pylori testing. Verification of patient identification for the specimen was done by the physician and nurse using the patient's name and medical record number. Estimated blood loss was minimal. The examined duodenum was normal. The cardia and gastric fundus were normal on retroflexion. Impression: - Normal esophagus. - Normal stomach. Biopsied. - Normal examined duodenum. Recommendation: - Await pathology results. - Perform a colonoscopy today. Armand Ramírez M.D. Armand Ramírez MD 09/25/2017 10:07:02 AM This report has been signed electronically. Note Initiated On: 09/25/2017 9:33 AM I attest to the content of the Intraoperative Record and orders documented therein, exceptions below
--- NOTE | 2017-09-25 13:59 | GI REPORT ---
Procedure Date: 09/25/2017 9:33 AM Procedure: Colonoscopy Indications: Screening for colorectal malignant neoplasm Medicines: See the Anesthesia note for documentation of the administered medications Complications: No immediate complications. Estimated Blood Loss: Estimated blood loss: none. Procedure: Pre-Anesthesia Assessment: - See the other procedure note for documentation of the pre-procedure assessment. After I obtained informed consent, the scope was passed under direct vision. Throughout the procedure, the patient's blood pressure, pulse, and oxygen saturations were monitored continuously. The scope was introduced through the anus and advanced to the terminal ileum, with identification of the appendiceal orifice and IC valve. The colonoscopy was performed without difficulty. The patient tolerated the procedure well. The quality of the bowel preparation was good. Findings: The perianal and digital rectal examinations were normal. The terminal ileum appeared normal. The entire examined colon appeared normal on direct and retroflexion views. Impression: - The examined portion of the ileum was normal. - The entire examined colon is normal on direct and retroflexion views. - No specimens collected. Recommendation: - Repeat colonoscopy in 10 years for screening purposes. - Discharge patient to home. Armand Ramírez M.D. Armand Ramírez MD 09/25/2017 10:08:15 AM This report has been signed electronically. Note Initiated On: 09/25/2017 9:33 AM I attest to the content of the Intraoperative Record and orders documented therein, exceptions below
== END | disposition home or self-care (01) ==
LOC: C.GI 07:41
PROVIDERS: ATTEND Internal Medicine Gastroenterology
DX: K29.50 Unspecified chronic gastritis without bleeding (principal); R14.0 Abdominal distension (gaseous); I10 Essential (primary) hypertension; K21.9 Gastro-esophageal reflux disease without esophagitis; F41.9 Anxiety disorder, unspecified; F32.9 Major depressive disorder, single episode, unspecified; Z98.890 Other specified postprocedural states; Z79.899 Other long term (current) drug therapy; Z88.1 Allergy status to other antibiotic agents; Z88.2 Allergy status to sulfonamides; Z91.013 Allergy to seafood; Z90.89 Acquired absence of other organs; E66.01 Morbid (severe) obesity due to excess calories; Z68.41 Body mass index [BMI] 40.0-44.9, adult

== ENCOUNTER → 2018-06-07 | Outpatient (CLI) | payer OTHER ==
[~2018-06-07] MED LIST changes: -ATROPINE SULFATE 0.1 MG/ML 5ML SYR IV PRN; -EpHEDrine SULFATE INJ 50 MG/ML AMP IV PRN; -LIDOCAINE HCL 2% 2 ML VIAL (20MG/ML) ONE; -MIDAZOLAM HCL 1 MG/ML 2ML VIAL ONE; -ONDANSETRON INJ 2 MG/ML 2 ML VIAL ONE; -PROPOFOL IV EMULSION 10 MG/ML 20 ML VIAL IV ONE; +RANI150T85 PO; -SODIUM CHLORIDE 0.9% 500ML 500 ML IV ONE; -ZNTT/150 PO
[2018-06-15 02:11] LABS: ANA SCREEN TC 249X NEGATIVE (NEGATIVE); ANTI-SS-A <1.0 NEG AI (<1.0 NEG); ANTI-SS-B <1.0 NEG AI (<1.0 NEG); COMPLEMENT C4** TC 44982E 32 MG/DL (15-57)
== END | disposition home or self-care (01) ==
LOC: C.LAB1850 16:03
PROVIDERS: ATTEND Internal Medicine Pulmonary Disease
DX: R06.02 Shortness of breath (principal); R91.8 Other nonspecific abnormal finding of lung field

== ENCOUNTER 2019-08-25 10:57 | Inpatient (IN) ==
[2019-08-25] MEDS ORDERED: SODIUM CHLORIDE 0.9% 500 ML IV SCH (11:15)
[2019-08-25] MEDS ORDERED: METOPROLOL TARTRATE 1 MG/ML VIAL IV STA (11:30)
--- NOTE | 2019-08-25 11:45 | XRay Report ---
XR chest 1V portable CLINICAL HISTORY: 64 years-old Female presenting with Chest Pain. TECHNIQUE: Portable upright AP view of the chest was obtained. COMPARISON: 10/18/2018. FINDINGS: Atherosclerosis of the aortic arch. Cardiac silhouette enlarged. Pulmonary vascular prominence. Bronc hial wall cuffing. Interstitial prominence likely indicates interlobular septal thickening. Mildly lo w lung volumes. No focal opacity. No large effusion or pneumothorax. Degenerative changes of the thor acic spine. Surgical clips project over the epigastrium. IMPRESSION: 1. Mild cardiomegaly with volume overload. Congestive change may be present versus chronic coarsened interstitial lung markings. No lissette pulmonary edema. Electronically signed by: Lemuel Alicea M.D. 08/25/2019 11:44 AM
[2019-08-25] MEDS ORDERED: HEPARIN SQ 5000 UNIT HEART ALERT CARP ONE (11:55)
[2019-08-25] MEDS: HEPARIN SODIUM/DEXTROSE 25,000 UNITS/500 ML BAG IV SCH (12:08)
[2019-08-25 12:25] LABS: Basophils # (auto) 0.01 K/uL (0-0.2); Basophils % (auto) 0.2 %; Eosinophils # (auto) 0.09 K/uL (0-0.5); Eosinophils % (auto) 1.8 %; Hematocrit (blood only) 25.8 % (37-47); Hemoglobin 8.4 g/dL (12.0-16.0); Immature Granulocytes # (auto) 0.04 K/uL (0.00-0.02); Immature Granulocytes % (auto) 0.8 %; Lymphocytes # (auto) 0.94 K/uL (1.2-3.4); Lymphocytes % (auto) 19.2 %; Mean Corpuscular Hemoglobin 32.7 pg (25-34); Mean Corpuscular Hgb Conc 32.6 g/dL (32-36); Mean Corpuscular Volume 100.4 fL (80-100); Mean Platelet Volume 10.4 fL (7.4-10.4); Monocytes # (auto) 0.32 K/uL (0.11-0.59); Monocytes % (auto) 6.5 %; Neutrophils # (auto) 3.49 K/uL (1.4-6.5); Neutrophils % (auto) 71.5 %; Nucleated RBC # (auto) 0.03 K/uL (0-0); Nucleated RBC % (auto) 0.7 %; Platelet Count 228 K/uL (130-400); RDW Coefficient of Variation 18.3 % (11.5-14.5); RDW Standard Deviation 65.4 fL (36.4-46.3); Red Blood Count 2.57 M/uL (4.2-5.4); White Blood Count 4.89 K/uL (4.8-10.8)
[2019-08-25 12:41] LABS: Alanine Aminotransferase 22 U/L (12-78); Albumin Level 3.4 gm/dl (3.4-5.0); Aspartate Aminotransferase 16 U/L (15-37); BUN Creatinine Ratio 17.9 (10-20); Blood Urea Nitrogen 21 mg/dl (7-18); Calcium 8.9 mg/dl (8.5-10.1); Carbon Dioxide 24 mmol/L (21-32); Chloride 108 mmol/L (98-107); Creatinine Clr Calc Pharmacy 63.4 ml/min; Est GFR (African American) 56.2; Est GFR (Non-African American) 48.5; Glucose 111 mg/dl (70-99); Lipase 58 U/L (73-393); Potassium 4.5 mmol/L (3.5-5.1); Sodium 139 mmol/L (136-145)
[2019-08-25 12:42] LABS: INR 1.1 (0.9-1.1); Partial Thromboplastin Time 25.8 Seconds (21.0-31.0); Prothrombin Time 10.9 Seconds (9.0-12.0)
[2019-08-25 12:46] LABS: Albumin Globulin Ratio 0.8 (0.9-2); Alkaline Phosphatase 73 U/L (45-117); Bilirubin,Total 0.5 mg/dl (0.2-1); Total Protein 7.4 gm/dl (6.4-8.2); Troponin I < 0.015 ng/ml (0-0.045)
--- NOTE | 2019-08-25 13:04 | Emergency Department Note ---
Entered by Sheng Shields acting as a scribe for Jose Cross DO History of Present Illness General Chief complaint: Cardiac Assessment Stated complaint: REF BY DR - CARDIAC ASSESSMENT Time Seen by Provider: 08/25/19 10:59 Source: patient History of Present Illness Provider complaint: Cardiac assessment Onset (ago): hour(s) (This morning) Location: chest Pain Consistency: + intermittent Relieved By: + none Exacerbated By: + other (Exertion) Associated symptoms: + shortness of breath; no chest pain The patient is a 64 year old female who presents to the Emergency Room for a ca rdiac assessment after being referred here by Dr. Hawthorne following an appointment in his office this morning that revealed she was in new onset Afib. The patient states she was seeing him to have an echo done due to having dyspnea on exertion as of late. The patient denies any chest pain or shortness of breath at this time. The patient does not have any cardiac history. Home Medications Home Medications Medication Instructions Recorded Confirmed Type docusate sodium [Colace] 100 mg PO BID 10/18/18 08/25/19 History lorazepam 0.5 mg PO BID PRN 10/18/18 08/25/19 History ranitidine HCl 150 mg PO BID 10/18/18 08/25/19 History sertraline [Zoloft] 100 mg PO QAM 10/18/18 08/25/19 History potassium citrate ER 15 mEq (1,620 15 meq PO BID #180 tab 07/14/19 08/25/19 History mg) tablet,extended release Oxygen Home #1 ea 07/15/19 08/25/19 History hydrochlorothiazide 25 mg tablet 25 mg PO DAILY #90 tab 07/19/19 08/25/19 Rx ampicillin 500 mg PO HS 08/25/19 08/25/19 History cholecalciferol (vitamin D3) 2,000 units PO QAM 08/25/19 08/25/19 History cyclobenzaprine 5 mg PO TID PRN 08/25/19 08/25/19 History diclofenac sodium 75 mg PO BID 08/25/19 08/25/19 History Allergies Allergy/AdvReac Type Severity Reaction Status Date / Time levofloxacin Allergy Intermediate LE Verified 08/25/19 11:51 swelling and blistering clindamycin AdvReac Intermediate PT Verified 08/25/19 11:51 CONTRACTED C-DIFF adhesive AdvReac Mild SKIN Verified 08/25/19 11:51 BLISTERS SOME TIMES shellfish derived AdvReac Mild NAUSEA,DIARRHEA, Verified 08/25/19 11:51 VOMITING Sulfa (Sulfonamide AdvReac Mild N/V Verified 08/25/19 11:51 Antibiotics) Past Med/Surg History Medical History History of recurrent UTI (urinary tract infection) (Chronic) Obesity, morbid, BMI 40.0-49.9 (Chronic) Ventral hernia (Chronic) Depression (Chronic) HTN (hypertension) (Chronic) CKD (chronic kidney disease), stage III (Chronic) Anxiety (Chronic) Notalgia paresthetica (Chronic) Irritable bowel syndrome (IBS) (Chronic) Anemia (Chronic) CHRONIC; BASELINE HGB 9-10'S Spinal stenosis (Chronic) HX Kidney stones (Chronic) History of blood transfusion (Resolved) 2015 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 SOB (shortness of breath) on exertion On home oxygen therapy 2L/MIN NC HS Urinary tract infection Spinal stenosis of lumbar region Surgical History H/O cystoscopy (Chronic) H/O gastric bypass (Chronic) "1980, reversed in same year" H/O arthroscopy of knee (Chronic) S/P adenoidectomy (Chronic) History of herniorrhaphy (Chronic) VENTRAL HERNIA REPAIR= 04/27/17= GRADE VIEW 2, CLEMENTE#2, ETT 7.0 AT [facility] History of tonsillectomy (Resolved) History of arthroscopy (Resolved) LEFT KNEE History of lithotripsy (Resolved) STENT INSERTION X 2 Family History Other Heart disease Lupus Scleroderma Stroke Social History Preferred Language: Singaporean Communication Ability: Effective Visual Impairment: No Limitations Taproom Attendant Required: No Beliefs That Will Affect Care: None Current Living Situation: Alone Feels Safe at Home: Yes Smoking Status: Never smoker Tobacco Type: cigarettes ; Cigarettes Per Day: SOCIAL ; Second Hand Exposure: No ; Hx Alcohol Use: No Hx Substance Use: No Review of Systems See HPI for pertinent positives & negatives. and A total of 10 systems reviewed and were otherwise negative Physical Exam Vital Signs Vital Signs - 24 hr 08/25/19 11:01 08/25/19 11:12 08/25/19 11:13 Temperature 36.6 C Temperature Source Oral Sepsis Recent Fever Within 48 Hours No Sepsis New/Unexplained Change in Mental Status No Sepsis Action Taken by Nursing No Action Required Pulse Rate 108 H 117 H 127 H Pulse Rate from SpO2 Sensor 115 H Respiratory Rate 18 19 28 H Blood Pressure 139/98 148/85 H Blood Pressure Mean 111 106 Pulse Oximetry 94 93 Oxygen Delivery Method Room Air 08/25/19 11:15 08/25/19 11:26 08/25/19 11:30 Temperature Temperature Source Sepsis Recent Fever Within 48 Hours Sepsis New/Unexplained Change in Mental Status Sepsis Action Taken by Nursing Pulse Rate 119 H 119 H 125 H Pulse Rate from SpO2 Sensor 114 H 123 H 116 H Respiratory Rate 22 27 H 24 Blood Pressure 127/88 130/86 Blood Pressure Mean 101 100 Pulse Oximetry 94 94 96 Oxygen Delivery Method Room Air 08/25/19 11:45 08/25/19 12:00 08/25/19 12:15 Temperature Temperature Source Sepsis Recent Fever Within 48 Hours Sepsis New/Unexplained Change in Mental Status Sepsis Action Taken by Nursing Pulse Rate 122 H 121 H 107 H Pulse Rate from SpO2 Sensor 112 H 111 H 117 H Respiratory Rate 15 27 H 18 Blood Pressure Blood Pressure Mean Pulse Oximetry 96 93 95 Oxygen Delivery Method 08/25/19 12:22 08/25/19 12:24 08/25/19 12:28 Temperature Temperature Source Sepsis Recent Fever Within 48 Hours Sepsis New/Unexplained Change in Mental Status Sepsis Action Taken by Nursing Pulse Rate 106 H 88 80 Pulse Rate from SpO2 Sensor 112 H 91 H 82 Respiratory Rate 23 19 18 Blood Pressure 154/66 H 117/78 129/78 Blood Pressure Mean 95 91 95 Pulse Oximetry 95 95 96 Oxygen Delivery Method 08/25/19 12:30 Temperature Temperature Source Sepsis Recent Fever Within 48 Hours Sepsis New/Unexplained Change in Mental Status Sepsis Action Taken by Nursing Pulse Rate 82 Pulse Rate from SpO2 Sensor 93 H Respiratory Rate 19 Blood Pressure Blood Pressure Mean Pulse Oximetry 96 Oxygen Delivery Method CONSTITUTIONAL/VITAL SIGNS: Reviewed / noted above. GENERAL: Non-toxic in appearance. INTEGUMENTARY: Warm, dry, and [place]. HEAD: Normocephalic. EYES: without scleral icterus or trauma. ENT/OROPHARYNX: clear and moist. LYMPHADENOPATHY/NECK: Is supple without lymphadenopathy or meningismus. RESPIRATORY: Lungs clear and equal. CARDIOVASCULAR: Rapid rate and irregular rhythm. GI/ABDOMEN: Soft and nontender. No organomegaly or pulsatile mass. No rebound or guarding. Normal bowel sounds. EXTREMITIES: Warm and well perfused. BACK: No CVA tenderness. NEUROLOGICAL: Intact without focal deficits. PSYCHIATRIC: normal affect. MUSCULOSKELETAL: Normally developed with good muscle tone. Course 1105: Past medical records reviewed. The patient was evaluated in room C03, and a complete history and physical examination were performed. 1250: I reevaluated the patient and updated her on results. We also discussed the treatment plan and she agreed. 1255: I spoke to Dr. Dimas Dawson about the patient's case. She is going to accept the patient for further evaluation. Consultations Consultation #1: I spoke to Dr. Dimas Dawson about the patient's case. She is going to accept the patient for further evaluation. Time: 12:55 Administered Medications Heparin Sodium/Dextrose (Heparin Sodium/Dextrose) 25,000 units in 500 mls @ 30 mls/hr IV .[id number] [facility]; Protocol Stop: 09/24/19 11:29 Last Admin: 08/25/19 12:08 Dose: 1,500 units/hr, 30 mls/hr Documented by: [id number] Cosigned by: [id number] Discontinued Medications Heparin Sodium (Beef Lung) (Heparin Sod 5000u Heart Alert) Confirm Administered Dose 5,000 units .ROUTE .STK-MED ONE Stop: 08/25/19 11:56 Last Admin: 08/25/19 12:10 Dose: 5,000 units Documented by: [id number] Cosigned by: [id number] Heparin Sodium/Dextrose () 1 ea IV NOW STA; Protocol Stop: 08/25/19 11:31 Last Admin: 08/25/19 12:11 Dose: Not Given Documented by: [id number] Sodium Chloride (Nss) 500 mls @ 999 mls/hr IV .[id number] [facility] Stop: 08/25/19 11:45 Last Admin: 08/25/19 12:07 Dose: 999 mls/hr Documented by: [id number] Metoprolol Tartrate (Lopressor) 5 mg IV NOW STA Stop: 08/25/19 11:31 Last Admin: 08/25/19 12:10 Dose: 5 mg Documented by: [id number] Medical Decision Making Differential Diagnosis Differential: NSR, SVT, PACs, PVCs, Cardiac Dysrhythmia, Endocrine Dysfunction, Electrolyte/Metabolic Abnormality, Pulmonary Embolism, Infectious, GI, amongst other pathologies entertained. Medical Records Attestation: I reviewed the patient's medical records. Home Medications Current Medication List: was personally reviewed by me Laboratory Data Attestation: I reviewed the patient's lab results. Result diagrams: 08/25/19 12:08/25/19 12: Lab Results 08/25/19 08/25/19 08/25/19 Range/Units 12: 12: 12: WBC 4.89 (4.8-10.8) K/uL RBC 2.57 L (4.2-5.4) M/uL Hgb 8.4 L (12.0-16.0) g/dL Hct 25.8 L (37-47) % MCV 100.4 H (80-100) fL MCH 32.7 (25-34) pg MCHC 32.6 (32-36) g/dL RDW Std Deviation 65.4 H (36.4-46.3) fL RDW Coeff of Patrica 18.3 H (11.5-14.5) % Plt Count 228 (130-400) K/uL MPV 10.4 (7.4-10.4) fL Immature Gran % (Auto) 0.8 % Neut % (Auto) 71.5 % Lymph % (Auto) 19.2 % [place] % (Auto) 6.5 % Eos % (Auto) 1.8 % Baso % (Auto) 0.2 % Immature Gran # (Auto) 0.04 H (0.00-0.02) K/uL Neut # (Auto) 3.49 (1.4-6.5) K/uL Lymph # (Auto) 0.94 L (1.2-3.4) K/uL [place] # (Auto) 0.32 (0.11-0.59) K/uL Eos # (Auto) 0.09 (0-0.5) K/uL Baso # (Auto) 0.01 (0-0.2) K/uL Absolute Nucleated RBC 0.03 H (0-0) K/uL Nucleated RBC % (auto) 0.7 % PT 10.9 (9.0-12.0) Seconds INR 1.1 (0.9-1.1) APTT 25.8 (21.0-31.0) Seconds PTT Ratio 1.0 Sodium 139 (136-145) mmol/L Potassium 4.5 (3.5-5.1) mmol/L Chloride 108 H (98-107) mmol/L Carbon Dioxide 24 (21-32) mmol/L Anion Gap 7.0 (3-11) BUN 21 H (7-18) mg/dl Creatinine 1.17 (0.6-1.2) mg/dl Est Cr Clr Drug Dosing 63.4 ml/min Est GFR ( Amer) 56.2 Est GFR (Non-Af Amer) 48.5 BUN/Creatinine Ratio 17.9 (10-20) Glucose 111 H (70-99) mg/dl Calcium 8.9 (8.5-10.1) mg/dl Total Bilirubin 0.5 (0.2-1) mg/dl AST 16 (15-37) U/L ALT 22 (12-78) U/L Alkaline Phosphatase 73 (45-117) U/L Troponin I < 0.015 (0-0.045) ng/ml Total Protein 7.4 (6.4-8.2) gm/dl Albumin 3.4 (3.4-5.0) gm/dl Globulin 4.0 (2.5-4.0) gm/dl Albumin/Globulin Ratio 0.8 L (0.9-2) Lipase 58 L (73-393) U/L Imaging Data Radiologist's Impression: Radiology results as stated below per my review and the radiologist's interpretation: XR chest 1V portable CLINICAL HISTORY: 64 years-old Female presenting with Chest Pain. TECHNIQUE: Portable upright AP view of the chest was obtained. COMPARISON: 10/18/2018. FINDINGS: Atherosclerosis of the aortic arch. Cardiac silhouette enlarged. Pulmonary vascular prominence. Bronchial wall cuffing. Interstitial prominence likely indicates interlobular septal thickening. Mildly low lung volumes. No focal opacity. No large effusion or pneumothorax. Degenerative changes of the thoracic spine. Surgical clips project over the epigastrium. IMPRESSION: 1. Mild cardiomegaly with volume overload. Congestive change may be present versus chronic coarsened interstitial lung markings. No lissette pulmonary edema. Electronically signed by: Lemuel Alicea M.D. 08/25/2019 11:44 AM ECG Data Attestation: I personally reviewed and interpreted this ECG as follows: Indication: palpitations Rate (beats per minute): 116 Rhythm: atrial fibrillation Findings: no PAC, no PVC, no ST elevation and no ectopy Blood Pressure Blood Pressure Findings: Elevated blood pressure Blood Pressure Disposition: Referred to patients primary care provider MDM Narrative This is a 64-year-old female who presents to the ED with a chief complaint of rapid A. fib. The patient was sent by Dr. Hawthorne's office for evaluation. The patient was having a routine echocardiogram done when the A. fib was noticed. She was in A. fib with RVR. The patient denies any specific chest pains or shortness of breath but has been having some shortness of breath with exertion recently. Her physical exam revealed a rapid A. fib. Exam is otherwise unremarkable. She is in no distress. EKG shows A. fib at a rate of 116. No ST elevations or ectopy. Hemoglobin today is 8.4. Chest x-ray reveals cardiomegaly and some volume overload but no overt CHF/pulmonary edema. Complete metabolic panel was unremarkable and troponin was negative. The patient was told the results of the test. I gave the patient IV Lopressor which slowed her heart rate down into the 80's, the patient was started on IV heparin. She will be seen by the hospitalist for further evaluation and care. Dr. Ibarra saw the patient in the ED from cardiology services. Impression & Plan New onset atrial fibrillation, Atrial fibrillation with RVR Critical Care Time Critical Care Time: Yes Total Critical Care Time: 35 I have personally spent greater than 35 minutes of critical care time in the direct management of this patient. This includes bedside care, interpretation of diagnostic studies, and testing, discussion with consultants, patient, and family members, and other required patient management activities. This 35 minutes is in excess of all separately billable procedures. Discharge Plan Visit Data Chief Complaint: Cardiac Assessment Stated Complaint: REF BY DR - CARDIAC ASSESSMENT ED Provider: Jose Cross Discharge Problem: New onset atrial fibrillation, Atrial fibrillation with RVR Patient Disposition: Being Evaluated by Hospitalist Forms Stand Alone Forms: My [employer] Prescriptions Prescriptions: No Action hydrochlorothiazide 25 mg tablet 25 mg PO DAILY Qty: 90 RF: 3 potassium citrate 15 mEq tablet extended release 15 meq PO BID Qty: 180 RF: 0 Oxygen Home Liters Per Minute .ROUTE .MEDSUPPLY Qty: 1 RF: 0 sertraline [Zoloft] 100 mg Tablet 100 mg PO QAM RF: 0 lorazepam 0.5 mg Tablet 0.5 mg PO BID PRN (Reason: Anxiety) RF: 0 docusate sodium [Colace] 100 mg Capsule 100 mg PO BID RF: 0 ranitidine HCl 150 mg Tablet 150 mg PO BID RF: 0 ampicillin 500 mg capsule 500 mg PO HS RF: 0 diclofenac sodium 75 mg tablet,delayed release (DR/EC) 75 mg PO BID RF: 0 cyclobenzaprine 5 mg tablet 5 mg PO TID PRN (Reason: Leg Cramps) RF: 0 cholecalciferol (vitamin D3) 2,000 unit tablet 2,000 units PO QAM RF: 0 Referrals Referrals: Sabra Whatley DO [Primary Care Provider] - The scribe's documentation has been prepared under my direction and personally reviewed by me in its entirety. I confirm that the note above accurately reflects all work, treatment, procedures, and medical decision making performed by me.
[2019-08-25] MEDS ORDERED: FUROSEMIDE 40 MG/4 ML VIAL IV STA (13:17)
--- NOTE | 2019-08-25 13:47 | Cardiology Consultation ---
Date of Consultation August 25, 2019 Assessment & Plan (1) New onset atrial flutter: The pathophysiology and treatment options for which were discussed with the patient and her sister at the bedside at great lengths. At this time we will start her on p.o. metoprolol and IV heparin for short acting anticoagulation. Long-term treatment options of rate versus rhythm control strategy were also discussed along with the caveat that should she have any significant signs of bleeding or worsening anemia that long-term anticoagulation may not be a viable option. But for now we will monitor hemoglobin closely on the heparin. (2) SOB (shortness of breath): Chronic. She denies any significant worsening as of late. She is been seen by pulmonary medicine who is work-up asked to this point has been unremarkable and believe that there is a significant component of obesity hypoventilation. Her work-up is not yet complete as an outpatient sleep study has not been performed. We will obtain an overnight pulse ox tonight. She was also scheduled for nuclear stress test as an outpatient today for ischemic work-up, obviously testing was not completed. Given her lack of findings that might represent acute ischemia we will hold off on further ischemi c work-up at this time. (3) Anemia: Chronic, has been seen by hematology in the past. Now with the need for chronic anticoagulation I will ask our hematology colleagues to evaluate her here as an inpatient. Her H&H will be followed closely. (4) CKD (chronic kidney disease), stage III: Actually somewhat improved from baseline. We will follow closely during admission (5) HTN (hypertension): Controlled (6) Acute diastolic (congestive) heart failure: Volume overloaded suggested by chest x-ray findings and decreased breath sounds in the bilateral bases on examination. I will give her 1 dose of IV Lasix x1 now and follow her volume status clinically. History of Present Illness Reason for Consultation: New onset atrial flutter with rapid ventricular r esponse. Attending Physician: Dr. Cochran History of Present Illness It was my pleasure to see Ms. Bah in consultation today August 25, 2019. She is a very pleasant 64-year-old woman who was recently established with Dr. Hawthorne of our cardiology practice for evaluation of dyspnea with exertion. As part of the work-up she was scheduled for a resting echocardiogram and Lexiscan nuclear stress test today. However, when she presented for her echocardiogram she was found to be in atrial flutter with rapid ventricular response which is a new finding for her. She was seen by Dr. Hawthorne at that time and directed to [facility] emergency department. In the emergency department she received 5 mg of IV Lopressor and started on heparin drip. Clinically, she states that she has not noticed any significant changes of late. She states that she is been short of breath with exertion for approximately 10 years now. She is also chronically fatigued suffering from chronic anemia for which she was previously seen by [facility] hematology however has not followed up since February of this year. She denies any exertional chest discomfort, lightheadedness, dizziness or syncope. She states that she has been taking her medications as directed without issue. She is also being seen by pulmonary medicine as an outpatient was recommended sleep study in the past and as of yet the patient has not completed this as part of her shortness of breath work-up. Allergies Allergy/AdvReac Type Severity Reaction Status Date / Time levofloxacin Allergy Intermediate LE Verified 08/25/19 11:51 swelling and blistering clindamycin AdvReac Intermediate PT Verified 08/25/19 11:51 CONTRACTED C-DIFF adhesive AdvReac Mild SKIN Verified 08/25/19 11:51 BLISTERS SOME TIMES shellfish derived AdvReac Mild NAUSEA,DIARRHEA, Verified 08/25/19 11:51 VOMITING Sulfa (Sulfonamide AdvReac Mild N/V Verified 08/25/19 11:51 Antibiotics) Home Medications Home Medications Medication Instructions Recorded Confirmed Type docusate sodium [Colace] 100 mg PO BID 10/18/18 08/25/19 History lorazepam 0.5 mg PO BID PRN 10/18/18 08/25/19 History ranitidine HCl 150 mg PO BID 10/18/18 08/25/19 History sertraline [Zoloft] 100 mg PO QAM 10/18/18 08/25/19 History potassium citrate ER 15 mEq (1,620 15 meq PO BID #180 tab 07/14/19 08/25/19 History mg) tablet,extended release Oxygen Home #1 ea 07/15/19 08/25/19 History hydrochlorothiazide 25 mg tablet 25 mg PO DAILY #90 tab 07/19/19 08/25/19 Rx ampicillin 500 mg PO HS 08/25/19 08/25/19 History cholecalciferol (vitamin D3) 2,000 units PO QAM 08/25/19 08/25/19 History cyclobenzaprine 5 mg PO TID PRN 08/25/19 08/25/19 History diclofenac sodium 75 mg PO BID 08/25/19 08/25/19 History Patient History Medical History History of recurrent UTI (urinary tract infection) (Chronic) Obesity, morbid, BMI 40.0-49.9 (Chronic) Ventral hernia (Chronic) Depression (Chronic) HTN (hypertension) (Chronic) CKD (chronic kidney disease), stage III (Chronic) Anxiety (Chronic) Notalgia paresthetica (Chronic) Irritable bowel syndrome (IBS) (Chronic) Anemia (Chronic) CHRONIC; BASELINE HGB 9-10'S Spinal stenosis (Chronic) HX Kidney stones (Chronic) History of blood transfusion (Resolved) 2015 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 SOB (shortness of breath) on exertion On home oxygen therapy 2L/MIN NC HS Urinary tract infection Spinal stenosis of lumbar region Surgical History H/O cystoscopy (Chronic) H/O gastric bypass (Chronic) "1980, reversed in same year" H/O arthroscopy of knee (Chronic) S/P adenoidectomy (Chronic) History of herniorrhaphy (Chronic) VENTRAL HERNIA REPAIR= 04/27/17= GRADE VIEW 2, CLEMENTE#2, ETT 7.0 AT [facility] History of tonsillectomy (Resolved) History of arthroscopy (Resolved) LEFT KNEE History of lithotripsy (Resolved) STENT INSERTION X 2 Family History Other Heart disease Lupus Scleroderma Stroke Social History Preferred Language: Nigerian Communication Ability: Effective Visual Impairment: No Limitations Residential Property Manager Required: No Beliefs That Will Affect Care: None Current Living Situation: Alone Feels Safe at Home: Yes Smoking Status: Never smoker Tobacco Type: cigarettes ; Cigarettes Per Day: SOCIAL ; Second Hand Exposure: No ; Hx Alcohol Use: No Hx Substance Use: No Review of Systems Review of Systems: All systems reviewed & are unremarkable except as noted in HPI & below Physical Exam Physical Exam: General: Awake, alert and oriented x 3. No acute distress. Morbidly obese. HEENT: Normocephalic, atraumatic. Pupils equal, round and reactive to light and accommodation. Extraocular muscles are intact. Anicteric sclera. Moist mucous membranes. Neck: No JVD. No bruit. Cardiovascular: irregularly irregular, unable to appreciate murmur, rub or gallop. Pulmonary: Clear to auscultation bilaterally. No rales, rhonchi, or wheezing. Abdomen: Bowel sounds x 4, soft. No rebound, guarding or tenderness. No organomegaly. Extremities: No clubbing, cyanosis or edema. +2 pedal pulses bilaterally. Skin: Warm and dry. Results & Data Vital Signs (Past 12 Hours) Vital Signs Temp Pulse Resp BP Pulse Ox 08/25/19 13:31 92 H 19 127/64 96 08/25/19 13:30 94 H 20 96 08/25/19 13:15 91 H 16 95 08/25/19 13:00 91 H 19 141/78 H 96 08/25/19 12:45 89 16 96 08/25/19 12:30 82 19 96 08/25/19 12:28 80 18 129/78 96 08/25/19 12:24 88 19 117/78 95 08/25/19 12:22 106 H 23 154/66 H 95 08/25/19 12:15 107 H 18 95 08/25/19 12:00 121 H 27 H 93 08/25/19 11:45 122 H 15 96 08/25/19 11:30 125 H 24 130/86 96 08/25/19 11:26 119 H 27 H 127/88 94 08/25/19 11:15 119 H 22 94 08/25/19 11:13 127 H 28 H 148/85 H 93 08/25/19 11:12 117 H 19 08/25/19 11:01 36.6 C 108 H 18 139/98 94 Laboratory Results Laboratory Results - last 24 hr 08/25/19 08/25/19 08/25/19 12:01 12:01 12:01 WBC 4.89 RBC 2.57 L Hgb 8.4 L Hct 25.8 L MCV 100.4 H MCH 32.7 MCHC 32.6 RDW Std Deviation 65.4 H RDW Coeff of Patrica 18.3 H Plt Count 228 MPV 10.4 Immature Gran % (Auto) 0.8 Neut % (Auto) 71.5 Lymph % (Auto) 19.2 [place] % (Auto) 6.5 Eos % (Auto) 1.8 Baso % (Auto) 0.2 Immature Gran # (Auto) 0.04 H Neut # (Auto) 3.49 Lymph # (Auto) 0.94 L [place] # (Auto) 0.32 Eos # (Auto) 0.09 Baso # (Auto) 0.01 Absolute Nucleated RBC 0.03 H Nucleated RBC % (auto) 0.7 PT 10.9 INR 1.1 APTT 25.8 PTT Ratio 1.0 Sodium 139 Potassium 4.5 Chloride 108 H Carbon Dioxide 24 Anion Gap 7.0 BUN 21 H Creatinine 1.17 Est Cr Clr Drug Dosing 63.4 Est GFR ( Amer) 56.2 Est GFR (Non-Af Amer) 48.5 BUN/Creatinine Ratio 17.9 Glucose 111 H Calcium 8.9 Magnesium Total Bilirubin 0.5 AST 16 ALT 22 Alkaline Phosphatase 73 Troponin I < 0.015 Total Protein 7.4 Albumin 3.4 Globulin 4.0 Albumin/Globulin Ratio 0.8 L Lipase 58 L 08/25/19 12:01 WBC RBC Hgb Hct MCV MCH MCHC RDW Std Deviation RDW Coeff of Patrica Plt Count MPV Immature Gran % (Auto) Neut % (Auto) Lymph % (Auto) [place] % (Auto) Eos % (Auto) Baso % (Auto) Immature Gran # (Auto) Neut # (Auto) Lymph # (Auto) [place] # (Auto) Eos # (Auto) Baso # (Auto) Absolute Nucleated RBC Nucleated RBC % (auto) PT INR APTT PTT Ratio Sodium Potassium Chloride Carbon Dioxide Anion Gap BUN Creatinine Est Cr Clr Drug Dosing Est GFR ( Amer) Est GFR (Non-Af Amer) BUN/Creatinine Ratio Glucose Calcium Magnesium Pending Total Bilirubin AST ALT Alkaline Phosphatase Troponin I Total Protein Albumin Globulin Albumin/Globulin Ratio Lipase (1) Anemia Anemia type: due to chronic kidney disease Chronic kidney disease stage: stage 4 (severe) Qualified Code(s): N18.4 - Chronic kidney disease, stage 4 (severe); D63.1 - Anemia in chronic kidney disease (2) HTN (hypertension) Hypertension type: unspecified Qualified Code(s): I10 - Essential (primary) hypertension
[2019-08-25] MEDS ORDERED: CYCLOBENZAPRINE HCL 5 MG TAB PO PRN (14:16)
--- NOTE | 2019-08-25 14:35 | History & Physical Report ---
Date of Service August 25, 2019 Assessment & Plan (1) New onset atrial flutter: New onset of Aflutter w/ RVR Started on IV heparin, received IV metoprolol x1 in the ED Will admit to inpt telemetry for close hemodynamic monitoring Cardiology consulted, evaluated pt, recommend starting PO metoprolol Fluid overload on CXR, was given lasix 40 mg IV x1 in the ED Will closely monitor lytes, goal K>4, Mg>2 Low potassium, fluid restricted diet (also given her CKD) HTN Currently well controlled (and in the setting of aflutter) At home on HCTZ, will cont. Metoprolol started for rate control Will cont. to monitor Shortness of breath currently likely secondary to Aflutter, however pt has hx of dyspnea on exertion (prior to her cardiac iss.) Hx of nocturnal hypoxia, concern for BERRY and obesity hypoventilation syndrome At home on 2L NC at night and during the day w/ exertion Will closely monitor during her hospitalization and provide suppl. O2 as needed Recently underwent sleep study, will follow w/ her outpt. pulm. after discharge Morbid obesity BMI>40 Previously underwent gastric bypass (in 80s) which had to be reversed d/t intolerance Will discuss weight management prior to discharge Present on Admission?: Yes (2) CKD (chronic kidney disease), stage III: Cr 1.2 (close to baseline) Follows w/ outpt. ore washer Dr. Mary Lepe, per her last year note Cr was 0.9 (no recent note available, consider to obtain records) Will try to avoid nephrotoxic agents such as NSAIDs, however pt is currently on diclofenac for back pain Low potassium diet, fluid restricted Currently w/ some fluid overload, for which she received IV lasix Will cont. to closely monitor renal function and electrolytes Present on Admission?: Yes (3) Anemia: Macrocytic w/ MCV slightly over 100 Chronic, likely secondary to CKD stage 3, nutritional deficit, poss. combination of other factors Follows w/ hematology as outpt, also previously received Epo (follows w/ nephrology as outpt) Current Hgb 8.6, usually her hgb is >9 No obvious signs of active bleeding Given her need for anticoag. for aflutter and ongoing anemia, hematology was consulted as inpt Will cont. to closely monitor H&H (4) History of recurrent UTI (urinary tract infection): Seems to be secondary to her hx of nephrolithiasis Follows w/ urology as outpt At home takes ppx amoxicillin, and potassium citrate, will continue during her admission No current issues, will continue to monitor (5) Depression: At home on zoloft, will continue Currently no issues, denies any SI/HI Will continue to monitor Present on Admission?: Yes (6) Anxiety: At home on zoloft and lorazepam (bid), will continue Currently mild anxiety d/t hospital environment, denies any SI/HI Will continue to monitor GERD At home takes zantac, will cont. No current issues Constipation (chronic) At home takes docusate, will cont. Back pain (chronic) At home uses flexeril and diclofenac, will cont. for now Will add Tylenol, as needed will cont. to monitor Present on Admission?: Yes (7) DVT prophylaxis: Pt already on IV heparin (for Aflutter) (8) Discharge planning issues: Pt lives alone in her apartment. Currently do not anticipate any barriers to discharging home after her hospitalization. History of Present Illness Chief Complaint: Aflutter w/ RVR Primary Care Provider: Sabra Whatley, 64-year-old female with hypertension, CKD stage III, anemia (likely secondary to CKD), morbid obesity who presents with new onset of atrial flutter with RVR. 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 There she was found to be in atrial flutter with RVR and was sent to the ED for further evaluation and treatment. Patient has no prior history of cardiac arrhythmia, and denies any current or prior symptoms such as palpitations, dizziness, chest pain. She has been having dyspnea on exertion for some time (several years), however that was attributed to noncardiac issues. She has a history of anemia, likely due to her CKD, she was also seen by pulmonology and had recently sleep study done. She has history of nocturnal hypoxia and uses oxygen at home (2L at night, or during the day w/ exertion). She presented to the ED with her sister Jalyn, who is hemodialysis CURATOR OF MANUSCRIPTS and helped provide history. In the ED patient was started on IV heparin and received 1 dose of 5mg IV metoprolol, which helped to slow down her heart rate. Cardiol raisa was consulted and recommended to start p.o. metoprolol. Patient also showed signs of fluid overload on chest x-ray, and was given IV Lasix while in the emergency room. Allergies Allergy/AdvReac Type Severity Reaction Status Date / Time levofloxacin Allergy Intermediate LE Verified 08/25/19 11:51 swelling and blistering clindamycin AdvReac Intermediate PT Verified 08/25/19 11:51 CONTRACTED C-DIFF adhesive AdvReac Mild SKIN Verified 08/25/19 11:51 BLISTERS SOME TIMES shellfish derived AdvReac Mild NAUSEA,DIARRHEA, Verified 08/25/19 11:51 VOMITING Sulfa (Sulfonamide AdvReac Mild N/V Verified 08/25/19 11:51 Antibiotics) Home Medications Home Medications Medication Instructions Recorded Confirmed Type docusate sodium [Colace] 100 mg PO BID 10/18/18 08/25/19 History lorazepam 0.5 mg PO BID PRN 10/18/18 08/25/19 History ranitidine HCl 150 mg PO BID 10/18/18 08/25/19 History sertraline [Zoloft] 100 mg PO QAM 10/18/18 08/25/19 History potassium citrate ER 15 mEq (1,620 15 meq PO BID #180 tab 07/14/19 08/25/19 History mg) tablet,extended release Oxygen Home #1 ea 07/15/19 08/25/19 History hydrochlorothiazide 25 mg tablet 25 mg PO DAILY #90 tab 07/19/19 08/25/19 Rx ampicillin 500 mg PO HS 08/25/19 08/25/19 History cholecalciferol (vitamin D3) 2,000 units PO QAM 08/25/19 08/25/19 History cyclobenzaprine 5 mg PO TID PRN 08/25/19 08/25/19 History diclofenac sodium 75 mg PO BID 08/25/19 08/25/19 History Past Med/Surg History Medical History New onset atrial flutter (Acute) History of recurrent UTI (urinary tract infection) (Chronic) Obesity, morbid, BMI 40.0-49.9 (Chronic) Ventral hernia (Resolved) Depression (Chronic) HTN (hypertension) (Chronic) CKD (chronic kidney disease), stage III (Chronic) Anxiety (Chronic) Notalgia paresthetica (Chronic) Irritable bowel syndrome (IBS) (Chronic) Anemia (Chronic) CHRONIC; BASELINE HGB 9-10'S Spinal stenosis (Chronic) HX Kidney stones (Chronic) History of blood transfusion (Resolved) 2015 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 SOB (shortness of breath) on exertion (Chronic) On home oxygen therapy (Chronic) 2L/MIN NC HS Urinary tract infection Spinal stenosis of lumbar region Surgical History H/O cystoscopy (Chronic) H/O gastric bypass (Chronic) "1980, reversed in same year" H/O arthroscopy of knee (Chronic) S/P adenoidectomy (Chronic) History of herniorrhaphy (Chronic) VENTRAL HERNIA REPAIR= 04/27/17= GRADE VIEW 2, CLEMENTE#2, ETT 7.0 AT [facility] History of tonsillectomy (Resolved) History of arthroscopy (Resolved) LEFT KNEE History of lithotripsy (Resolved) STENT INSERTION X 2 Social History Preferred Language: Polish Communication Ability: Effective Visual Impairment: No Limitations Caul Puller Required: No Beliefs That Will Affect Care: None marital status: Current Living Situation: Alone Other Information That Helps Us Care for You: No Feels Safe at Home: Yes Smoking Status: Former smoker Tobacco Type: cigarettes ; Number of Years Since Quit: 10 ; Second Hand Exposure: Yes ; Hx Alcohol Use: No Hx Substance Use: No Review of Systems Constitutional: no fever, no chills and no weight loss Eyes: no eye pain, no photophobia and no problem reported Ear, Nose, Mouth, Throat: no dizziness, no sore throat, no dysphagia and no problem reported Respiratory: + dyspnea on exertion uses home oxygen Cardiovascular: + dyspnea on exertion and + palpitations; no chest pain at rest, no chest pain with activity, no lightheadedness and no edema Gastrointestinal: + constipation; no abdominal pain Genitourinary: no dysuria, no hematuria and no flank pain Musculoskeletal: + back pain (chronic) Integumentary: no rash, no lesions, no sores and no problem reported Neurologic: no dizziness, no syncope, no abnormal speech and no behavioral changes Psychiatric: + depression and + anxiety; no abnormal sleep pattern, no confusion, no hallucinations and no substance abuse Endocrine: no polydipsia, no polyuria and no problem reported Hematologic / Lymphatic: no easy bleeding, no easy bruising and no night sweats Allergy / Immunological: no throat swelling, no rash and no problem reported Physical Exam Constitutional: well developed, well nourished and + morbidly obese elderly female in NAD Eyes: PERRL, conjunctivae normal, anicteric sclerae ENMT: external ear and nose normal, oropharynx normal Neck: normal visual inspection supple Respiratory: does not use accessory muscles Auscultation: + diminished lung sounds (at bases b/l) and + crackles (mild bibasilar); no wheezes on 2L NC Cardiovascular: Rate/Rhythm: + tachycardic (irregular) Heart Sounds: no murmur Vessels: no JVD (unable to assess JVD d/t body habitus) Extremities: no edema Chest (Breasts): Chest: normal inspection of chest Gastrointestinal (Abdomen): Inspection/Auscultation: abdomen normal to inspection and normal bowel sounds Percussion/Palpation: abdomen soft; abdo men nontender and no guarding vertical abdominal surgical scar, well healed, no hernia Musculoskeletal: Head/Neck/Chest: normocephalic, head atraumatic and neck supple Extremities: extremities normal to inspection and strength 5/5 throughout Skin: no rashes, warm and dry Neurologic: PERRL, EOMI, accommodation nl, no face palsy, no dysarthria no sensory deficits noted Psychiatric: A+Ox3, euthymic affect Speech: normal rate/rhythm/volume of speech Lymphatic: no lymphedema and no cervical lymphadenopathy Results & Data Vital Signs (Past 12 Hours) Vital Signs Temp Pulse Resp BP Pulse Ox 08/25/19 14:15 122/85 95 08/25/19 14:03 94 08/25/19 13:45 116 H 23 95 08/25/19 13:32 88 17 96 08/25/19 13:31 92 H 19 127/64 96 08/25/19 13:30 94 H 20 96 08/25/19 13:15 91 H 16 95 08/25/19 13:00 91 H 19 141/78 H 96 08/25/19 12:45 89 16 96 08/25/19 12:30 82 19 96 08/25/19 12:28 80 18 129/78 96 08/25/19 12:24 88 19 117/78 95 08/25/19 12:22 106 H 23 154/66 H 95 08/25/19 12:15 107 H 18 95 08/25/19 12:00 121 H 27 H 93 08/25/19 11:45 122 H 15 96 08/25/19 11:30 125 H 24 130/86 96 08/25/19 11:26 119 H 27 H 127/88 94 08/25/19 11:15 119 H 22 94 08/25/19 11:13 127 H 28 H 148/85 H 93 08/25/19 11:12 117 H 19 08/25/19 11:01 36.6 C 108 H 18 139/98 94 Laboratory Results 08/25/19 08/25/19 08/25/19 Range/Units 12:01 12:01 12:01 WBC (4.8-10.8) K/uL RBC (4.2-5.4) M/uL Hgb (12.0-16.0) g/dL Hct (37-47) % MCV (80-100) fL MCH (25-34) pg MCHC (32-36) g/dL RDW Std Deviation (36.4-46.3) fL RDW Coeff of Patrica (11.5-14.5) % Plt Count (130-400) K/uL MPV (7.4-10.4) fL Immature Gran % (Auto) % Neut % (Auto) % Lymph % (Auto) % Posey % (Auto) % Eos % (Auto) % Baso % (Auto) % Immature Gran # (Auto) (0.00-0.02) K/uL Neut # (Auto) (1.4-6.5) K/uL Lymph # (Auto) (1.2-3.4) K/uL Posey # (Auto) (0.11-0.59) K/uL Eos # (Auto) (0-0.5) K/uL Baso # (Auto) (0-0.2) K/uL Absolute Nucleated RBC (0-0) K/uL Nucleated RBC % (auto) % PT 10.9 (9.0-12.0) Seconds INR 1.1 (0.9-1.1) APTT 25.8 (21.0-31.0) Seconds PTT Ratio 1.0 Sodium 139 (136-145) mmol/L Potassium 4.5 (3.5-5.1) mmol/L Chloride 108 H (98-107) mmol/L Carbon Dioxide 24 (21-32) mmol/L Anion Gap 7.0 (3-11) BUN 21 H (7-18) mg/dl Creatinine 1.17 (0.6-1.2) mg/dl Est Cr Clr Drug Dosing 63.4 ml/min Est GFR ( Amer) 56.2 Est GFR (Non-Af Amer) 48.5 BUN/Creatinine Ratio 17.9 (10-20) Glucose 111 H (70-99) mg/dl Calcium 8.9 (8.5-10.1) mg/dl Magnesium 2.0 (1.8-2.4) mg/dl Total Bilirubin 0.5 (0.2-1) mg/dl AST 16 (15-37) U/L ALT 22 (12-78) U/L Alkaline Phosphatase 73 (45-117) U/L Troponin I < 0.015 (0-0.045) ng/ml Total Protein 7.4 (6.4-8.2) gm/dl Albumin 3.4 (3.4-5.0) gm/dl Globulin 4.0 (2.5-4.0) gm/dl Albumin/Globulin Ratio 0.8 L (0.9-2) Lipase 58 L (73-393) U/L 08/25/19 Range/Units 12:01 WBC 4.89 (4.8-10.8) K/uL RBC 2.57 L (4.2-5.4) M/uL Hgb 8.4 L (12.0-16.0) g/dL Hct 25.8 L (37-47) % MCV 100.4 H (80-100) fL MCH 32.7 (25-34) pg MCHC 32.6 (32-36) g/dL RDW Std Deviation 65.4 H (36.4-46.3) fL RDW Coeff of Patrica 18.3 H (11.5-14.5) % Plt Count 228 (130-400) K/uL MPV 10.4 (7.4-10.4) fL Immature Gran % (Auto) 0.8 % Neut % (Auto) 71.5 % Lymph % (Auto) 19.2 % Posey % (Auto) 6.5 % Eos % (Auto) 1.8 % Baso % (Auto) 0.2 % Immature Gran # (Auto) 0.04 H (0.00-0.02) K/uL Neut # (Auto) 3.49 (1.4-6.5) K/uL Lymph # (Auto) 0.94 L (1.2-3.4) K/uL Posey # (Auto) 0.32 (0.11-0.59) K/uL Eos # (Auto) 0.09 (0-0.5) K/uL Baso # (Auto) 0.01 (0-0.2) K/uL Absolute Nucleated RBC 0.03 H (0-0) K/uL Nucleated RBC % (auto) 0.7 % PT (9.0-12.0) Seconds INR (0.9-1.1) APTT (21.0-31.0) Seconds PTT Ratio Sodium (136-145) mmol/L Potassium (3.5-5.1) mmol/L Chloride (98-107) mmol/L Carbon Dioxide (21-32) mmol/L Anion Gap (3-11) BUN (7-18) mg/dl Creatinine (0.6-1.2) mg/dl Est Cr Clr Drug Dosing ml/min Est GFR ( Amer) Est GFR (Non-Af Amer) BUN/Creatinine Ratio (10-20) Glucose (70-99) mg/dl Calcium (8.5-10.1) mg/dl Magnesium (1.8-2.4) mg/dl Total Bilirubin (0.2-1) mg/dl AST (15-37) U/L ALT (12-78) U/L Alkaline Phosphatase (45-117) U/L Troponin I (0-0.045) ng/ml Total Protein (6.4-8.2) gm/dl Albumin (3.4-5.0) gm/dl Globulin (2.5-4.0) gm/dl Albumin/Globulin Ratio (0.9-2) Lipase (73-393) U/L Diagnostic Findings CXR 08/25/2019 FINDINGS: Atherosclerosis of the aortic arch. Cardiac silhouette enlarged. Pulmonary vascular prominence. Bronchial wall cuffing. Interstitial prominence likely indicates interlobular septal thickening. Mildly low lung volumes. No focal opacity. No large effusion or pneumothorax. Degenerative changes of the thoracic spine. Surgical clips project over the epigastrium. IMPRESSION: 1. Mild cardiomegaly with volume overload. Congestive change may be present versus chronic coarsened interstitial lung markings. No lissette pulmonary edema. Electronically signed by: Lemuel Alicea M.D. 08/25/2019 11:44 AM EKG - 08/25/2019 at 11:08 - aflutter w/ variable AV block, vent. rate 116 Code Status & VTE Plan Code Status Full code - code status discussed with the pt and in the presence of pt's sister Patient also states that she does not wish to be on ventilator or any life- prolonging treatments (for long time) if she was not to recover to her baseline. In case she could not make decisions for herself, she would like us to contact her brother Jefry at , and she wishes that he would make any decisions for her. For any other significant updates please contact sister Jalyn at . VTE Prophylaxis Plan VTE Prophylaxis will be ordered: No (1) Anemia Anemia type: due to chronic kidney disease Chronic kidney disease stage: stage 4 (severe) Qualified Code(s): N18.4 - Chronic kidney disease, stage 4 (severe); D63.1 - Anemia in chronic kidney disease (2) Depression Depression Type: unspecified Qualified Code(s): F32.9 - Major depressive disorder, single episode, unspecified
[2019-08-25] MEDS ORDERED: ACETAMINOPHEN 325 MG TAB PO PRN (15:43)
[2019-08-25] MEDS: LORazepam 0.5 MG TAB PO PRN (17:56)
[2019-08-25 18:14] LABS: Partial Thromboplastin Ratio 1.1
[2019-08-25] MEDS: DICLOFENAC SODIUM 75 MG TABCR PO SCH (18:25)
[2019-08-25] MEDS: METOPROLOL TARTRATE 25 MG TAB PO SCH ×2 (18:26→23:53)
[2019-08-25] MEDS ORDERED: AMOXICILLIN 500 MG CAP PO SCH (21:00)
[2019-08-25] MEDS: DOCUSATE SODIUM 100 MG CAP PO SCH (21:05)
[2019-08-25] MEDS: POTASSIUM CITRATE 10 MEQ TAB PO SCH (21:05)
[2019-08-25 21:29] LABS: Partial Thromboplastin Ratio 1.1; Partial Thromboplastin Time 29.4 Seconds (21.0-31.0)
[2019-08-25] MEDS ORDERED: HEPARIN IV BOLUS 7,000 UNITS in SYRINGE 0 ML IV ONE (21:46)
[2019-08-26] MEDS: HEPARIN SODIUM/DEXTROSE 25,000 UNITS/500 ML BAG IV SCH ×2 (03:48→15:13)
[2019-08-26 04:44] LABS: Hematocrit (blood only) 25.9 % (37-47); Hemoglobin 8.3 g/dL (12.0-16.0); Mean Corpuscular Hemoglobin 32.2 pg (25-34); Mean Corpuscular Volume 100.4 fL (80-100); Mean Platelet Volume 9.5 fL (7.4-10.4); Nucleated RBC # (auto) 0.06 K/uL (0-0); Platelet Count 228 K/uL (130-400); RDW Coefficient of Variation 18.4 % (11.5-14.5); RDW Standard Deviation 66.1 fL (36.4-46.3); Red Blood Count 2.58 M/uL (4.2-5.4); White Blood Count 5.82 K/uL (4.8-10.8)
[2019-08-26 04:58] LABS: Partial Thromboplastin Ratio 1.4; Partial Thromboplastin Time 37.4 Seconds (21.0-31.0)
[2019-08-26 05:01] LABS: BUN Creatinine Ratio 16.9 (10-20); Calcium 8.3 mg/dl (8.5-10.1); Creatinine Clr Calc Pharmacy 57.8 ml/min; Est GFR (African American) 49.1; Est GFR (Non-African American) 42.3; Magnesium 2.1 mg/dl (1.8-2.4); Potassium 4.2 mmol/L (3.5-5.1)
[2019-08-26] MEDS ORDERED: HEPARIN IV BOLUS 7,000 UNITS in SYRINGE 0 ML IV ONE (05:05)
[2019-08-26] MEDS: METOPROLOL TARTRATE 25 MG TAB PO SCH ×2 (05:50→11:52)
[2019-08-26] MEDS: DOCUSATE SODIUM 100 MG CAP PO SCH (08:43)
[2019-08-26] MEDS: POTASSIUM CITRATE 10 MEQ TAB PO SCH ×2 (08:43→15:13)
[2019-08-26] MEDS: DICLOFENAC SODIUM 75 MG TABCR PO SCH (08:44)
[2019-08-26] MEDS: LORazepam 0.5 MG TAB PO PRN (08:48)
[2019-08-26] MEDS ORDERED: CHOLECALCIFEROL 1,000 UNITS TAB PO SCH (09:00)
[2019-08-26] MEDS ORDERED: hydroCHLOROthiazide 25 MG TAB PO SCH (09:00)
[2019-08-26] MEDS ORDERED: SERTRALINE HCL 100 MG TABLET PO SCH (09:00)
[2019-08-26 11:48] LABS: Partial Thromboplastin Ratio 1.8
[2019-08-26 11:49] LABS: Partial Thromboplastin Time 47.9 Seconds (21.0-31.0)
--- NOTE | 2019-08-26 11:52 | Hospitalist Progress Note ---
Date of Service August 26, 2019 Results & Data Vital Signs (Past 12 Hours) Vital Signs Temp Pulse Pulse Pulse Resp BP Pulse Ox 08/26/19 11:23 36.7 C 79 18 103/65 92 08/26/19 08:00 89 08/26/19 07:47 36.7 C 74 19 102/69 93 08/26/19 03:44 36.4 C L 81 18 122/75 97 Laboratory Results Short CBC 08/25/19 08/26/19 Range/Units 12:01 04:29 WBC 4.89 5.82 (4.8-10.8) K/uL Hgb 8.4 L 8.3 L (12.0-16.0) g/dL Hct 25.8 L 25.9 L (37-47) % Plt Count 228 228 (130-400) K/uL BMP 08/25/19 08/26/19 12:01 04:29 Sodium 139 136 Potassium 4.5 4.2 Chloride 108 H 105 Carbon Dioxide 24 26 BUN 21 H 22 H Creatinine 1.17 1.31 H Glucose 111 H 138 H Calcium 8.9 8.3 L Cardiac Enzymes 08/25/19 Range/Units 12:01 Troponin I < 0.015 (0-0.045) ng/ml Liver Function 08/25/19 Range/Units 12:01 Total Bilirubin 0.5 (0.2-1) mg/dl AST 16 (15-37) U/L ALT 22 (12-78) U/L Alkaline Phosphatase 73 (45-117) U/L Albumin 3.4 (3.4-5.0) gm/dl Medications Administered Current Inpatient Medications Acetaminophen (Tylenol) 650 mg PO Q4H PRN PRN Reason: Pain or Fever Stop: 09/24/19 15:42 Last Admin: 08/25/19 23:20 Dose: 650 mg Documented by: Amoxicillin (Amoxil) 500 mg PO HS [facility] Stop: 09/24/19 20:59 Last Admin: 08/25/19 21:05 Dose: 500 mg Documented by: Cyclobenzaprine HCl (Flexeril) 5 mg PO TID PRN PRN Reason: Leg Cramps Stop: 09/24/19 14:15 Last Admin: 08/25/19 23:55 Dose: 5 mg Documented by: Diclofenac Sodium (Voltaren) 75 mg PO BIDM [facility] Stop: 09/24/19 17:29 Last Admin: 08/26/19 08:44 Dose: 75 mg Documented by: Docusate Sodium (Colace) 100 mg PO BID [facility] Stop: 09/24/19 20:59 Last Admin: 08/26/19 08:43 Dose: 100 mg Documented by: Hydrochlorothiazide (Hctz) 25 mg PO DAILY [facility] Stop: 09/25/19 08:59 Last Admin: 08/26/19 08:44 Dose: 25 mg Documented by: Heparin Sodium/Dextrose (Heparin Sodium/Dextrose) 25,000 units in 500 mls @ 44 mls/hr IV .[id number] [facility]; Protocol Stop: 09/24/19 11:29 Last Titration: 08/26/19 07:07 Dose: 2,200 units/hr, 44 mls/hr Documented by: Lorazepam (Ativan) 0.5 mg PO BID PRN PRN Reason: Anxiety Stop: 09/24/19 14:15 Last Admin: 08/26/19 08:48 Dose: 0.5 mg Documented by: Metoprolol Tartrate (Lopressor) 12.5 mg PO Q6 [facility] Stop: 09/24/19 17:59 Last Admin: 08/26/19 05:50 Dose: 12.5 mg Documented by: Potassium Citrate (Urocit-K) 10 meq PO TID [facility] Stop: 09/24/19 20:59 Last Admin: 08/26/19 08:43 Dose: 10 meq Documented by: Ranitidine HCl (Zantac) 150 mg PO BID [facility] Stop: 09/24/19 20:59 Last Admin: 08/26/19 08:44 Dose: 150 mg Documented by: Sertraline HCl (Zoloft) 100 mg PO QAM [facility] Stop: 09/25/19 08:59 Last Admin: 08/26/19 08:44 Dose: 100 mg Documented by: Vitamin D (Vitamin D3) 2,000 units PO QAM [facility] Stop: 09/25/19 08:59 Last Admin: 08/26/19 08:44 Dose: 2,000 units Documented by:
--- NOTE | 2019-08-26 16:29 | Discharge Summary ---
Date of Service August 26, 2019 Admission HPI Per Admitting Provider 64-year-old female with hypertension, CKD stage III, anemia (likely secondary to CKD), morbid obesity who presents with new onset of atrial flutter with RVR. Patient was seen earlier today at her outpatient chair maker office for echo/evaluation of her dyspnea on exertion. There she was found to be in atrial flutter with RVR and was sent to the ED for further evaluation and treatment. Patient has no prior history of cardiac arrhythmia, and denies any current or prior symptoms such as palpitations, dizziness, chest pain. She has been having dyspnea on exertion for some time (several years), however that was attributed to noncardiac issues. She has a history of anemia, likely due to her CKD, she was also seen by pulmonology and had recently sleep study done. She has history of nocturnal hypoxia and uses oxygen at home (2L at night, or during the day w/ exertion). She presented to the ED with her sister Jalyn, who is hemodialysis BOROUGH COORDINATOR and helped provide history. In the ED patient was started on IV heparin and received 1 dose of 5mg IV metoprolol, which helped to slow down her heart rate. Cardiology was consulted and recommended to start p.o. metoprolol. Patient also showed signs of fluid overload on chest x-ray, and was given IV Lasix while in the emergency room. Admission Exam Per Admitting Provider Constitutional: well developed, well nourished and + morbidly obese elderly female in NAD Eyes: PERRL, conjunctivae normal, anicteric sclerae ENMT: external ear and nose normal, oropharynx normal Neck: normal visual inspection supple Respiratory: does not use accessory muscles Auscultation: + diminished lung sounds (at bases b/l) and + crackles (mild bibasilar); no wheezes on 2L NC Cardiovascular: Rate/Rhythm: + tachycardic (irregular) Heart Sounds: no murmur Vessels: no JVD (unable to assess JVD d/t body habitus) Extremities: no edema Chest (Breasts): Chest: normal inspection of chest Gastrointestinal (Abdomen): Inspection/Auscultation: abdomen normal to inspection and normal bowel sounds Percussion/Palpation: abdomen soft; abdomen nontender and no guarding vertical abdominal surgical scar, well healed, no hernia Musculoskeletal: Head/Neck/Chest: normocephalic, head atraumatic and neck supple Extremities: extremities normal to inspection and strength 5/5 throughout Skin: no rashes, warm and dry Neurologic: PERRL, EOMI, accommodation nl, no face palsy, no dysarthria no sensory deficits noted Psychiatric: A+Ox3, euthymic affect Speech: normal rate/rhythm/volume of speech Lymphatic: no lymphedema and no cervical lymphadenopathy Principal Diagnosis New onset atrial fibrillation with RVR Obstructive sleep apnea Chronic anemia Obesity Discharge Data Allergies Allergy/AdvReac Type Severity Reaction Status Date / Time levofloxacin Allergy Intermediate LE Verified 08/25/19 11:51 swelling and blistering clindamycin AdvReac Intermediate PT Verified 08/25/19 11:51 CONTRACTED C-DIFF adhesive AdvReac Mild SKIN Verified 08/25/19 11:51 BLISTERS SOME TIMES shellfish derived AdvReac Mild NAUSEA,DIARRHEA, Verified 08/25/19 11:51 VOMITING Sulfa (Sulfonamide AdvReac Mild N/V Verified 08/25/19 11:51 Antibiotics) Consultations 08/25/19 12:59 ED Decision to Admit Stat 08/25/19 15:43 Consult Cardiology Routine 08/25/19 16:02 Consult Hematology Routine Hospital Course (1) New onset atrial fibrillation: (2) Obesity, morbid, BMI 40.0-49.9: (3) Anemia: (4) BERRY (obstructive sleep apnea): 64-year-old female presented to the emergency room prompted by her chair maker. She was undergoing an echocardiogram and was found to be in new onset atrial fibrillation. She was asymptomatic but reported chronic dyspnea which has affected her for approximately 10 years. She denied any worsening of her chronic symptoms. She had no history of chest pain. On arrival to the ER she was afebrile with a pulse of 108. She was placed on a heparin drip and given metoprolol IV. She was noted to have an H&H of 8.4/ and was chronically anemic with a baseline H&H of 08/08, currently being worked up by hematology. Troponin was negative. X-ray revealed mild volume overload and she was given one small dose of Lasix. She did not appear to be symptomatic with her rhythm. No ST elevations or ectopy were noted on EKG. The IV Lopressor dropped her heart rate into the 80s and she was started on IV heparin. [facility] continued on oral metoprolol overnight. She maintained good rate control overnight and remained in atrial flutter. Cardiology was consulted and recommended anticoagulation for decrease stroke risk moving forward. A discussion ensued with her outpatient assistant professor of geography. Ultimately, it appears her anemia is possibly from her varying CKD. She has had multiple insults with infections and obstructive stones, causing episodes of TYLER over the last several years. Her kidney function is currently at baseline which is 1.2 to 1.3. She is set to see her outpatient assistant professor of geography soon, and they are fine with anticoagulation in the current setting. The risks and benefits were discussed with her and Coumadin was recommended for its ability to be reversed. She agreed to starting Coumadin now and will continue metoprolol with close cardiology follow-up. We did discuss her chronic dyspnea. She recently had a sleep study earlier this month which revealed mild obstructive sleep apnea with an CHANDNI of 10.2. Her relay engineer recommended she may do well with a trial of nasal CPAP and has plans to discuss this with her further after the weekend. Obstructive sleep apnea may be driving the underlying atrial fibrillation, also. Close cardiology follow-up is recommended so this can be monitored, especially if she agrees to the trial of CPAP. At time of discharge a [id number] exa mination was performed revealing hemodynamically stable and afebrile patient. She was obese but in no acute distress. Physical exam revealed S1 and S2 that were normal with no evidence of murmurs gallops gallops, rubs. Her lungs were clear to auscultation bilaterally and she was not hypoxic, and in no respiratory distress. No conversational dyspnea was noted. She was discharged in stable condition with close primary care follow-up recommended. Total Time Total Time Spent Total Time Spent (In Minutes): 60 Total Time Includes: Examination of the Patient, Discharge Planning, Medication Reconciliation, Communication With Other Providers and Other (arrange follow-up) Discharge Plan Discharge Items Patient Disposition: Home - Self-Care Reason For Visit: AFLUTTER Discharge Diagnosis: New onset atrial fibrillation with RVR Obstructive sleep apnea Chronic anemia Health Concerns: chronic shortness of breath Goals: lose 10% of you body weight in the next 3-6 months using diet and exercise follow-up with Pulmonology regarding sleep study results follow-up with Hematology to complete the anemia workup. Activity: Resume your previous activity Non-emergency contact: Primary Care Provider Call non-emergency contact if: you have any medication questions, your symptoms worsen, your pain is not controlled, your pain is worsening, your pain is unusual for you, your pain is concerning for you and you have a fever Follow-up/Referrals: Pavel Lucas DO [Physician] - Alen Ibarra DO [Physician] - Sabra Whatley DO [Primary Care Provider] - Diet: Heart Healthy Addtl Attending Provider Instructions: Please take all medications as instructed on discharge list below. As discussed, someone from the Anticoagulation Clinic should be contacting you regarding a recheck of your INR level on Thursday, Thursday at the latest. As you are being put on a blood thinner, please seek immediate medical attention for any overt bleeding issues. Also, on the coumadin you may not take NSAIDs (non-steroidal anti-inflammatories) such as Diclofenac, Motrin, Aleve, etc. Your recent outpatient sleep study test was reviewed and was positive for mild obstructive sleep apnea. I spoke with Dr. Lucas, who is planning to contact you early next week to discuss the plan. He is considering a trial of CPAP, which may improve this new heart rhythm. If you don't hear from him, please contact his office to discuss. Please follow-up with [facility] Cardiology in 4 weeks to follow-up from this hospitalization and ensure you are doing well on your new medications. Please follow-up with Dr. Marion in Hematology regarding your anemia. Please follow-up with your primary care physician to ensure you are doing well on the new medications since hospital discharge, and to continue monitoring of your anemia on coumadin. A CBC (complete blood count) is recommended at this time. 09/01/2019 10:20 AM Liborio Young MD [facility] It was a pleasure taking care of you! Please call if you have any questions or problems. You can reach a [facility] hospitalist on duty at [facility] 24 hours a day by calling [phone]. Take care of yourself. Melissa Coopre DO [facility] Hospitalist Pending Studies at Discharge: No Stand-Alone Forms: My [facility] Medications and DC Order Prescriptions: New metoprolol tartrate 25 mg tablet 25 mg PO BID Qty: 60 RF: 1 warfarin [Coumadin] 5 mg tablet 5 mg PO DAILY Qty: 30 RF: 1 Continued hydrochlorothiazide 25 mg tablet 25 mg PO DAILY Qty: 90 RF: 3 potassium citrate 15 mEq tablet extended release 15 meq PO BID Qty: 180 RF: 0 sertraline [Zoloft] 100 mg Tablet 100 mg PO QAM RF: 0 lorazepam 0.5 mg Tablet 0.5 mg PO BID PRN (Reason: Anxiety) RF: 0 docusate sodium [Colace] 100 mg Capsule 100 mg PO BID RF: 0 ranitidine HCl 150 mg Tablet 150 mg PO BID RF: 0 ampicillin 500 mg capsule 500 mg PO HS RF: 0 cyclobenzaprine 5 mg tablet 5 mg PO TID PRN (Reason: Leg Cramps) RF: 0 cholecalciferol (vitamin D3) 2,000 unit tablet 2,000 units PO QAM RF: 0 Discontinued Oxygen Home Liters Per Minute .ROUTE .MEDSUPPLY Qty: 1 RF: 0 diclofenac sodium 75 mg tablet,delayed release (DR/EC) 75 mg PO BID RF: 0 Discharge Orders: Discharge Order (Routine); Ordered 08/26/19 Ordered By: Melissa Cooper Admission Data Admit Date/Time: 08/25/19 14:12 Attending Provider: Melissa Cooper Admit Provider: Jesse Cochran Primary Care Provider: Sabra Whatley Other Providers: Jesse Cochran ; Alen Ibarra ; Robert Marion
[2019-08-26] MEDS ORDERED: WARFARIN SOD 5 MG TAB PO STA (16:51)
== END 2019-08-26 18:09 | disposition home or self-care (01) | DRG 308 ==
LOC: ED 10:57 → 2S 14:12 → SUATTDRO 14:12 → 2S 15:13

== ENCOUNTER 2020-05-08 08:37 | Inpatient (IN) ==
--- NOTE | 2020-05-08 08:59 | Pre Anesthesia Assessment ---
Date of Service May 08, 2020 Pre Sedation Assessment Cardiovascular + bradycardic Respiratory normal respiratory effort, lungs clear to auscultation Pre-Sedation Airway Assessment Smoking Status: Former smoker Hx Sleep Apnea: No Hx Difficult Intubation: No Short, Thick Neck: No Thyromental Distance: < 3.5 Finger Breadths Oral Cavity: + WNL Mallampati Class: II ASA: ASA3 NPO Status Date of Last Intake of Fluids: 05/07/20 Date of Last Intake of Solid Food: 05/07/20 Procedure Planning Contraindications for Sedation: none Current Medications Reviewed: Yes Notes The planned sedation has been discussed with the patient. Informed Consent was obtained. I have identified the patient, determined the appropriateness of sedation and have assessed the patient immediately prior to the procedure. All medicine(s) and interventions are by my order.
--- NOTE | 2020-05-08 08:59 | History & Physical Bridge Note ---
Date of Service May 08, 2020 History & Physical Bridge Note I have examined the patient, reviewed the History & Physical and in the interval since the performance of the History & Physical I have noted the following changes of clinical significance: no changes noted
[2020-05-08] MEDS ORDERED: BUPIVACAINE 0.25% 30 ML VIAL ONE (09:04)
[2020-05-08] MEDS ORDERED: LIDOCAINE HCL 1% 20 ML VIAL ONE (09:04)
[2020-05-08] MEDS ORDERED: fentaNYL citrate 100 MCG/2 ML VIAL ONE ×2 (09:04→10:00)
[2020-05-08] MEDS ORDERED: MIDAZOLAM HCL 5 MG/ML 1 ML VIAL ONE (09:04)
[2020-05-08] MEDS ORDERED: BACITRACIN INJ 50,000 UNIT VIAL ONE (09:05)
[2020-05-08] MEDS ORDERED: CEFAZOLIN 250 MG/ML 1 GM VIAL ONE (09:16)
[2020-05-08] MEDS ORDERED: MIDAZOLAM HCL 1 MG/ML 2ML VIAL ONE (10:05)
[2020-05-08 10:16] LABS: iSTAT Arterial Blood Gas pCO2 45 mmHg (35-46); iSTAT Arterial Blood Gas pH 7.39 (7.35-7.45); iSTAT Arterial Blood Gas pO2 39 mmHg (80-95); iSTAT Carbon Dioxide 28 mmol/L (24-31); iSTAT Hematocrit 24 % (37-47); iSTAT Hemoglobin 8.2 g/dl (12.0-16.0); iSTAT Potassium 4.7 mmol/L (3.3-5.0); iSTAT Sodium 137 mmol/L (135-144)
[2020-05-08 10:17] LABS: iSTAT Arterial Blood Gas HCO3 27 meg/L (19-24)
[2020-05-08] MEDS ORDERED: NURSING DECISION MEDICATION ONE (11:00)
[2020-05-08] MEDS ORDERED: CYCLOBENZAPRINE HCL 5 MG TAB PO PRN (11:03)
--- NOTE | 2020-05-08 11:53 | Electrocardiogram Report ---
Test Reason : Blood Pressure : / mmHG Vent. Rate : 068 BPM Atrial Rate : 068 BPM P-R Int : 140 ms QRS Dur : 090 ms QT Int : 432 ms P-R-T Axes : 030 014 047 degrees QTc Int : 459 ms Normal sinus rhythm with sinus arrhythmia Left ventricular hypertrophy Nonspecific ST abnormality Anterolateral leads Abnormal ECG When compared with ECG of 26-AUG-2019 08:27, Sinus rhythm has replaced Atrial flutter Borderline criteria for Inferior infarct are no longer Present . Confirmed by Kapil Johnson ([id number]) on 05/08/2020 11:52:52 AM Referred By: Gemini Espinoza Confirmed By:Kapil Johnson
[2020-05-08] MEDS ORDERED: OXYCODONE/ACETAMINOPHEN 5mg/325mg TAB PO ONE (14:00)
[2020-05-08] MEDS: SOTALOL HCL 80 MG TAB PO SCH ×2 (14:08→20:52)
[2020-05-08] MEDS: hydroCHLOROthiazide 25 MG TAB PO SCH (14:08)
[2020-05-08] MEDS: NITROFURANTOIN MONOHYDRATE 100 MG CAP PO SCH ×2 (16:22→20:52)
[2020-05-08] MEDS: ACETAMINOPHEN 325 MG TAB PO PRN (16:26)
--- NOTE | 2020-05-08 16:37 | Electrocardiogram Report ---
Test Reason : Blood Pressure : / mmHG Vent. Rate : 066 BPM Atrial Rate : 066 BPM P-R Int : 140 ms QRS Dur : 086 ms QT Int : 432 ms P-R-T Axes : 035 007 056 degrees QTc Int : 452 ms Suspect unspecified pacemaker failure Sinus rhythm with occasional atrial-paced complexes and occasional ventricular paced complexes Left ventricular hypertrophy with repolarization abnormality Abnormal ECG When compared with ECG of 08-MAY-2020 11:07, Electronic atrial and ventricular pacing now seen occasionally Nonspecific ST abnormality Anterolateral leads less pronounced Confirmed by Kapil Johnson ([id number]) on 05/08/2020 4:37:08 PM Referred By: Gemini Espinoza Confirmed By:Kapil Johnson
[2020-05-08] MEDS: OXYCODONE/ACETAMINOPHEN 5mg/325mg TAB PO PRN (19:53)
[2020-05-08] MEDS: LORazepam 0.5 MG TAB PO PRN (20:51)
[2020-05-08] MEDS: DOCUSATE SODIUM 100 MG CAP PO SCH (20:51)
[2020-05-08] MEDS: PANTOprazole 40 MG TAB PO SCH (20:52)
[2020-05-09] MEDS: OXYCODONE/ACETAMINOPHEN 5mg/325mg TAB PO PRN ×4 (01:36→23:23)
[2020-05-09 04:48] LABS: Hematocrit (blood only) 21.5 % (37-47); Hemoglobin 6.6 g/dL (12.0-16.0); Mean Corpuscular Hemoglobin 26.9 pg (25-34); Mean Corpuscular Hgb Conc 30.7 g/dL (32-36); Mean Corpuscular Volume 87.8 fL (80-100); Mean Platelet Volume 9.4 fL (7.4-10.4); Nucleated RBC # (auto) 0.02 K/uL (0-0); Nucleated RBC % (auto) 0.5 %; Platelet Count 178 K/uL (130-400); RDW Coefficient of Variation 23.3 % (11.5-14.5); RDW Standard Deviation 75.5 fL (36.4-46.3); Red Blood Count 2.45 M/uL (4.2-5.4); White Blood Count 4.96 K/uL (4.8-10.8)
[2020-05-09 04:56] LABS: BUN Creatinine Ratio 16.5 (10-20); Calcium 8.4 mg/dl (8.5-10.1); Creatinine Clr Calc Pharmacy 52.6 ml/min; Est GFR (African American) 46.5; Est GFR (Non-African American) 40.1; Potassium 4.5 mmol/L (3.5-5.1)
--- NOTE | 2020-05-09 07:31 | XRay Report ---
XR chest 2V PA/lateral CLINICAL HISTORY: post ppm COMPARISON STUDY: Chest radiograph August 25, 2019. Chest CT May 28, 2018. FINDINGS: There is no pneumothorax following placement of a dual-lead left subclavian pacemaker. Lead tip projects over the right atrial appendage and right ventricle. Note is made of cardiomegaly. Inte rstitial thickening is probably chronic. No evidence for pulmonary edema. There is no consolidation. Upper abdominal surgical clips are incidentally noted. IMPRESSION: No pneumothorax with placement of a dual-lead left subclavian pacemaker. ACT 112: Negative or not required by law. Electronically signed by: Pro Joya M.D. 05/09/2020 7:29 AM
[2020-05-09] MEDS: PANTOprazole 40 MG TAB PO SCH ×2 (07:46→21:47)
[2020-05-09] MEDS: DOCUSATE SODIUM 100 MG CAP PO SCH ×2 (07:46→21:46)
[2020-05-09] MEDS: NITROFURANTOIN MONOHYDRATE 100 MG CAP PO SCH ×2 (07:46→21:46)
[2020-05-09] MEDS: SERTRALINE HCL 100 MG TABLET PO SCH (07:47)
[2020-05-09] MEDS: hydroCHLOROthiazide 25 MG TAB PO SCH (07:47)
[2020-05-09] MEDS: CHOLECALCIFEROL 1,000 UNITS 25 MCG TAB PO SCH (07:47)
[2020-05-09] MEDS: FOLIC ACID 1 MG TAB PO SCH (07:47)
[2020-05-09] MEDS: LORazepam 0.5 MG TAB PO PRN (07:52)
[2020-05-09] MEDS ORDERED: SODIUM CHLORIDE 0.9% 250 ML IV PRN (08:24)
[2020-05-09] MEDS: SOTALOL HCL 80 MG TAB PO SCH ×2 (10:57→21:46)
--- NOTE | 2020-05-09 11:39 | Cardiology Progress Note ---
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 She continues to have VINSON. Hb is down (not procedural related); pt reports minimal discomfort at ppm site Review of Systems Review of Systems: All systems reviewed & are unremarkable except as noted in HPI & below Physical Exam Physical Exam: aaox3, NAD NC/AT, EOMI Supple No JVD Nrl S1/S2, No murmur CTA b/l no w/r/r soft nt/nd no LE edema b/l skin intact no focal deficits left pectoral incision intact, no hematoma no ecchymosis, dressing in place Results & Data Vital Signs (Past 12 Hours) Vital Signs Temp Pulse Resp BP Pulse Ox 05/09/20 11:29 36.5 C 63 17 143/54 H 91 05/09/20 07:48 36.6 C 59 L 17 142/78 H 92 05/09/20 03:37 36.6 C 60 20 118/57 L 97 Laboratory Results Abnormal Lab Results 05/09/20 05/09/20 05/09/20 04:17 04:17 08:31 WBC 4.96 RBC 2.45 L Hgb 6.6 L* Hct 21.5 L MCV 87.8 MCH 26.9 MCHC 30.7 L RDW Std Deviation 75.5 H RDW Coeff of Patrica 23.3 H Plt Count 178 MPV 9.4 Absolute Nucleated RBC 0.02 H Nucleated RBC % (auto) 0.5 Sodium 135 L Potassium 4.5 Chloride 103 Carbon Dioxide 29 Anion Gap 3.0 BUN 23 H Creatinine 1.37 H Est Cr Clr Drug Dosing 52.6 Est GFR ( Amer) 46.5 Est GFR (Non-Af Amer) 40.1 BUN/Creatinine Ratio 16.5 Glucose 107 H Calcium 8.4 L Blood Type A Positive Antibody Screen NEGATIVE Crossmatch See Detail Diagnostic Findings CXR Leads in position; no PTX Medications Administered Current Inpatient Medications Acetaminophen (Tylenol) 650 mg PO Q4H PRN PRN Reason: Pain Stop: 06/07/20 10:59 Last Admin: 05/08/20 16:26 Dose: 650 mg Documented by: Cyclobenzaprine HCl (Flexeril) 5 mg PO TID PRN PRN Reason: Leg Cramps Stop: 06/07/20 11:02 Docusate Sodium (Colace) 100 mg PO BID [facility] Stop: 06/07/20 20:59 Last Admin: 05/09/20 07:46 Dose: 100 mg Documented by: Folic Acid (Folvite) 1 mg PO DAILY [facility] Stop: 06/08/20 08:59 Last Admin: 05/09/20 07:47 Dose: 1 mg Documented by: Hydrochlorothiazide (Hctz) 25 mg PO DAILY [facility] Stop: 06/07/20 11:14 Last Admin: 05/09/20 07:47 Dose: 25 mg Documented by: Sodium Chloride (Nss) 250 mls @ 15 mls/hr IV .[id number] PRN PRN Reason: For Transfusion Stop: 05/09/20 18:25 Lorazepam (Ativan) 0.5 mg PO BID PRN PRN Reason: Anxiety Stop: 06/07/20 11:02 Last Admin: 05/09/20 07:52 Dose: 0.5 mg Documented by: Miscellaneous (Order Awaiting Action) 1 ea N/A QS [facility] Stop: 06/07/20 15:59 Last Admin: 05/09/20 07:50 Dose: Not Given Documented by: Nitrofurantoin Macrocrystals (Macrobid) 100 mg PO BID [facility] Stop: 05/13/20 14:59 Last Admin: 05/09/20 07:46 Dose: 100 mg Documented by: Oxycodone/Acetaminophen (Percocet 5mg/325mg) 1 - 2 tab PO Q6H PRN PRN Reason: Moderate-Severe Pain Stop: 05/22/20 10:59 Last Admin: 05/09/20 07:45 Dose: 2 tab Documented by: Pantoprazole Sodium (Protonix) 40 mg PO BID [facility] Stop: 06/07/20 20:59 Last Admin: 05/09/20 07:46 Dose: 40 mg Documented by: Sertraline HCl (Zoloft) 100 mg PO QAM [facility] Stop: 06/08/20 08:59 Last Admin: 05/09/20 07:47 Dose: 100 mg Documented by: Sotalol HCl (Betapace) 80 mg PO BID [facility] Stop: 06/07/20 11:14 Last Admin: 05/09/20 10:57 Dose: 80 mg Documented by: Vitamin D (Vitamin D3) 2,000 units PO QAM [facility] Stop: 06/08/20 08:59 Last Admin: 05/09/20 07:47 Dose: 2,000 units Documented by: ECG Rate (beats per minute): atrial paced 60bpm Additional Comments: atrial paced 60bpm QTc 455ms (no change from prior on 05/08/2020) (1) Anemia Anemia type: due to chronic kidney disease Chronic kidney disease stage: stage 4 (severe) Qualified Code(s): N18.4 - Chronic kidney disease, stage 4 (severe); D63.1 - Anemia in chronic kidney disease
--- NOTE | 2020-05-09 14:53 | Electrocardiogram Report ---
Test Reason : Blood Pressure : / mmHG Vent. Rate : 060 BPM Atrial Rate : 060 BPM P-R Int : 190 ms QRS Dur : 088 ms QT Int : 466 ms P-R-T Axes : -12 -01 037 degrees QTc Int : 466 ms Atrial-paced rhythm Left ventricular hypertrophy with repolarization abnormality Abnormal ECG When compared with ECG of 08-MAY-2020 13:52, Electronic ventricular pacing no longer present Otherwise no significant change Confirmed by Kapil Johnson ([id number]) on 05/09/2020 2:52:31 PM Referred By: Gemini Espinoza Confirmed By:Kapil Johnson
[2020-05-09 17:25] LABS: Hemoglobin 7.9 g/dL (12.0-16.0); Mean Corpuscular Hemoglobin 27.4 pg (25-34); Mean Corpuscular Hgb Conc 31.6 g/dL (32-36); Mean Corpuscular Volume 86.8 fL (80-100); Mean Platelet Volume 9.8 fL (7.4-10.4); Nucleated RBC # (auto) 0.08 K/uL (0-0); Nucleated RBC % (auto) 1.3 %; Platelet Count 198 K/uL (130-400); RDW Coefficient of Variation 21.9 % (11.5-14.5); RDW Standard Deviation 69.7 fL (36.4-46.3); Red Blood Count 2.88 M/uL (4.2-5.4); White Blood Count 5.78 K/uL (4.8-10.8)
[2020-05-10] MEDS: ACETAMINOPHEN 325 MG TAB PO PRN (02:10)
[2020-05-10 06:18] LABS: Hematocrit (blood only) 25.2 % (37-47); Hemoglobin 7.8 g/dL (12.0-16.0); Mean Corpuscular Hemoglobin 27.5 pg (25-34); Mean Corpuscular Volume 88.7 fL (80-100); Mean Platelet Volume 9.9 fL (7.4-10.4); Nucleated RBC # (auto) 0.06 K/uL (0-0); Nucleated RBC % (auto) 0.9 %; Platelet Count 211 K/uL (130-400); RDW Standard Deviation 71.9 fL (36.4-46.3); Red Blood Count 2.84 M/uL (4.2-5.4); White Blood Count 6.33 K/uL (4.8-10.8)
[2020-05-10] MEDS ORDERED: SODIUM CHLORIDE 0.9% 250 ML IV PRN (08:12)
[2020-05-10] MEDS: SOTALOL HCL 80 MG TAB PO SCH ×2 (08:26→15:40)
[2020-05-10] MEDS: PANTOprazole 40 MG TAB PO SCH (08:26)
[2020-05-10] MEDS: NITROFURANTOIN MONOHYDRATE 100 MG CAP PO SCH (08:26)
[2020-05-10] MEDS: FOLIC ACID 1 MG TAB PO SCH (08:27)
[2020-05-10] MEDS: CHOLECALCIFEROL 1,000 UNITS 25 MCG TAB PO SCH (08:27)
[2020-05-10] MEDS: SERTRALINE HCL 100 MG TABLET PO SCH (08:27)
[2020-05-10] MEDS: DOCUSATE SODIUM 100 MG CAP PO SCH (08:30)
[2020-05-10] MEDS ORDERED: Nursing to Pharmacy Communication SCH (08:30)
[2020-05-10] MEDS: LORazepam 0.5 MG TAB PO PRN (08:30)
--- NOTE | 2020-05-10 08:31 | Electrocardiogram Report ---
Test Reason : Blood Pressure : / mmHG Vent. Rate : 060 BPM Atrial Rate : 060 BPM P-R Int : 196 ms QRS Dur : 090 ms QT Int : 464 ms P-R-T Axes : 000 012 042 degrees QTc Int : 464 ms Poor data quality, interpretation may be adversely affected Atrial-paced rhythm Left ventricular hypertrophy with repolarization abnormality Abnormal ECG When compared with ECG of 09-MAY-2020 09:37, No significant change was found Confirmed by Kapil Johnson ([id number]) on 05/10/2020 8:30:45 AM Referred By: Gemini Espinoza Confirmed By:Kapil Johnson
[2020-05-10] MEDS: OXYCODONE/ACETAMINOPHEN 5mg/325mg TAB PO PRN (08:51)
[2020-05-10] MEDS: hydroCHLOROthiazide 25 MG TAB PO SCH (09:32)
[2020-05-10 13:23] LABS: Hematocrit (blood only) 29.2 % (37-47); Hemoglobin 9.3 g/dL (12.0-16.0)
--- NOTE | 2020-05-11 11:56 | Electrocardiogram Report ---
Test Reason : Blood Pressure : / mmHG Vent. Rate : 060 BPM Atrial Rate : 060 BPM P-R Int : 206 ms QRS Dur : 096 ms QT Int : 476 ms P-R-T Axes : -25 013 055 degrees QTc Int : 476 ms Atrial-paced rhythm Abnormal ECG When compared with ECG of 10-MAY-2020 06:54, No significant change Confirmed by Kapil Johnson ([id number]) on 05/11/2020 11:56:10 AM Referred By: Gemini Espinoza Confirmed By:Kapil Johnson
--- NOTE | 2020-05-21 02:06 | Operative Report (OR) ---
DATE OF OPERATION: 05/08/2020 PREOPERATIVE DIAGNOSIS: Tachybrady syndrome. POSTOPERATIVE DIAGNOSIS: Tachybrady syndrome. PROCEDURE: Dual chamber rate responsive permanent pacemaker under fluoroscopic guidance. SURGEON: Gemini Espinoza DO ASSISTANTS: None. ANESTHESIA: Monitored conscious sedation administered under my supervision by Varsha Rahman. Start time 9:36, end time 10:55, a total of 7 mg of Versed, 200 mcg of fentanyl. INTRAVENOUS FLUIDS: 37 mL. ANTIBIOTICS: 2 grams of Ancef. BLOOD LOSS: 20 mL URINE OUTPUT: Not applicable. SPECIMENS: None. FINDINGS: See below. DRAINS: None. INDICATIONS: This is a 64-year-old female with a past medical history for paroxysmal atrial tachycardia found on a Zio patch with up to 3.3 second conversion pause, hypertension, atypical atrial flutter, not on Coumadin secondary to anemia, and she did not tolerate amiodarone due to GI issues, obstructive sleep apnea on nocturnal oxygen, did not tolerate CPAP, obesity, recurrent UTIs, on antibiotic suppression, anemia. She has evidence of tachybrady syndrome and was recommended a dual chamber pacemaker. OTHER ADDITIONAL PAST MEDICAL HISTORY: Chronic kidney disease stage III, hyperthyroidism in August 2019, anxiety, osteoarthritis, depression, GERD, and nephrolithiasis. CONSENT: Consent was obtained prior to the patient going into electrophysiology lab. The patient was informed of risks, benefits and alternatives to procedure. Risks include but not limited to sudden cardiac , cardiac arrhythmias, cerebrovascular accident, myocardial infarction, injury to the blood vessels, chamber of the heart, lungs, bleeding and infection. The patient understood these risks and agrees to the procedure as planned. Informed consent was obtained. DESCRIPTION OF THE PROCEDURE: The patient was brought into electrophysiology lab in a fasting state. She was connected to continuous cardiac monitoring. A timeout was performed to ensure patient identity and procedure correctly. The patient was prepped and draped over the left infraclavicular space in normal surgical standard fashion. Monitored conscious sedation was given throughout the procedure for patient's comfort level. [place] precautions were maintained throughout the procedure. A 10 mL of 1% lidocaine and bupivacaine mixture was given in the left deltopectoral groove. Incision was made in the left deltopectoral groove. Blunt dissection was performed down to identify cephalic vein. Cephalic vein was identified and isolated using 0 silk ties. The vein was nicked with a 11 blade and a guidewire was inserted without any resistance. An 8-[place]man[place] sheath was inserted over the guidewire without any resistance. Dilator was removed and a second guidewire was inserted through the 8-[place] sheath to allow for retained venous access. Sheath was removed, flushed, dilator reinserted over it and then was reinserted along the guidewires. Guidewire and dilator removed. Right ventricular lead was advanced into right ventricle and positioned ultimately up into the low right ventricular septum as I never got great placement in the apex. There was adequate pacing and sensing thresholds and no diaphragmatic stimulation with high output pacing. The 8-[place]mani sheath was peeled away and lead was fixated to the pectoralis muscle using 0 silk suture. A second 8-[place]man[place] sheath was inserted over the retained guidewire without any resistance. Guidewire and dilator removed. The right atrial lead was advanced into right atrium and positioned interatrial appendage under fluoroscopic guidance. There was adequate pacing and sensing thresholds and no diaphragmatic stimulation with high output pacing. The 8-[place] sheath was peeled away and the lead was fixated to pectoralis muscle using 0 silk suture. A pursestring using a 2-[address] needle was placed around the venous puncture site to prevent any backbleeding. Then a pacemaker pocket was created using blunt dissection over the pectoralis muscle within the pectoralis fascia. Pocket was flushed with copious amounts of bacitracin saline wash and inspected for hemostasis. Pulse generator was attached to the leads making sure that the pins were in appropriate position, passed set screws, and set screws were all tightened. Pulse generator was then placed in the pocket making sure that the leads were lying flat beneath the device. A stay stitch using 0 silk suture was used to secure the device to the pectoralis muscle. The incision was then closed in a 3-layer fashion with 2-0 Vicryl interrupted suture followed by 3-0 Vicryl interrupted suture followed by 4-0 Monocryl running stitch and Dermabond was applied followed then by a Tegaderm and micropore dressing. EQUIPMENT: 1. Pulse generator is a [employer] [place] XT DR BETTIE Ulloa [id number], serial number [id number]. 2. Right atrial lead is a Medtronic 5076-52 cm, serial number [id number]. 3. Right ventricular lead is a Med[employer]onic 5076-58 cm, serial number [id number]. INTRAOPERATIVE TESTIN. Right atrial lead: P waves 2 millivolts, impedance 342 ohms, threshold 1.1 volt at 0.4 milliseconds. 2. Right ventricular lead: R-wave 5 millivolts, impedance 551 ohms, threshold 0.8 volts at 0.4 milliseconds. FINAL PARAMETERS TO THE DEVICE: 1. Right atrial lead: P waves 2.1 millivolts, impedance 380 ohms, threshold 1 volt at 0.4 milliseconds. 2. Right ventricular lead: R-wave 5.3 millivolts, impedance 551 ohms, threshold 1 volt at 0.4 milliseconds. FINAL PARAMETERS: MVP-R 60/130, right atrial amplitude 3.5 volts, pulse width 0.4 milliseconds, sensitivity 0.3 millivolts. Right ventricular amplitude 3.5 volts, pulse width 0.4 milliseconds, sensitivity 1.2 millivolts. IMPRESSION: Successful implantation of a dual chamber rate responsive permanent pacemaker under fluoroscopic guidance secondary to tachybrady syndrome. PLAN: Monitor patient overnight, 12-lead ECG, chest x-ray. She is not allowed to lift her left elbow or left shoulder for 1 month. She cannot lift more than 10 pounds with the left arm for 2 weeks. She is to keep the dressing on and dry until her wound check next week. I would recommend a sports bra or surgical bra for extra support during the healing process. I attest to the content of the Intraoperative Record and any orders documented therein. Any exceptions are noted below. VIELKA
--- NOTE | 2020-05-30 15:57 | Discharge Summary ---
Date of Service May 10, 2020 Admission HPI Per Admitting Provider pt admitted for elective ppm Admission Exam Per Admitting Provider aaox3, NAD NC/AT, EOMI Supple No JVD Nrl S1/S2, No murmur CTA b/l no w/r/r soft nt/nd no LE edema b/l skin intact no focal deficits Principal Diagnosis TBS s/p ppm Discharge Exam aaox3, NAD NC/AT, EOMI Supple No JVD Nrl S1/S2, No murmur CTA b/l no w/r/r soft nt/nd no LE edema b/l skin intact no focal deficits left pectoral incision intact, no hematoma mild ecchymosis ENMT Mallampati Class: II Respiratory normal respiratory effort, lungs clear to auscultation Discharge Data Allergies Allergy/AdvReac Type Severity Reaction Status Date / Time levofloxacin Allergy Intermediate LE Verified 05/08/20 06:58 swelling and blistering tramadol Allergy Rash Verified 05/08/20 06:58 clindamycin AdvReac Intermediate PT Verified 05/08/20 06:58 CONTRACTED C-DIFF adhesive AdvReac Mild SKIN Verified 05/08/20 06:58 BLISTERS SOME TIMES shellfish derived AdvReac Mild NAUSEA,DIARRHEA, Verified 05/08/20 06:58 VOMITING Sulfa (Sulfonamide AdvReac Mild N/V Verified 05/08/20 06:58 Antibiotics) Procedures Performed Operation Date: 05/08/20 10:00 Actual Procedures p Pacer with A/V Leads (Dual) - Gemini Espinoza, Ordered Studies CXR: no PTX, leads in place ECG: AP VS Pacemaker Interrogation Normal function with stable lead testing since implant 05/08/20 06:48 CL Cath Imgs for PACS use only Stat Hospital Course (1) Atrial fibrillation: (2) Anemia: (3) SOB (shortness of breath): (4) Tachy-elias syndrome: Total Time Total Time Spent Total Time Spent (In Minutes): 40 Total Time Includes: Examination of the Patient, Discharge Planning, Medication Reconciliation and Other Discharge Plan Discharge Items Patient Disposition: Home - Self-Care Reason For Visit: Tachy-Elias Syndrome Discharge Diagnosis: TBS s/p ppm and started on sotalol Condition on Discharge: Good Activity: As commented below Activity Comment: do not raise the left elbow over the left shoulder for 1 month Lifting: No more than 10 pounds Lifting Comment: do not lift more than 10 pounds with the left arm for 2 weeks Bathing: Keep incision dry Bathing Comment: keep dressing on and dry until wound check next week Sexual Activity: After two weeks Non-emergency contact: Blood Bank Attendant Call non-emergency contact if: you have any medication questions Follow-up/Referrals: Sabra Whatley DO [Primary Care Provider] - 05/17/20 11:40 am Diet: Heart Healthy Addtl Attending Provider Instructions: device and wound check at [facility] cardiology as scheduled next week Please wear either the surgical bra or a sports bra daily for the next 3-4 weeks-it helps with healing Pending Studies at Discharge: No Stand-Alone Forms: My [facility] [employer] Medications and DC Order Prescriptions: New sotalol 80 mg Tablet 80 mg PO BID 30 Days Qty: 60 RF: 0 Continued hydrochlorothiazide 25 mg tablet 25 mg PO DAILY Qty: 90 RF: 3 (DME) CPAP Machine Misc See Dose Instructions .ROUTE .MEDSUPPLY Qty: 1 RF: 0 (DME) CPAP Machine Misc See Rx Instructions .ROUTE .MEDSUPPLY Qty: 1 RF: 0 potassium citrate 15 mEq tablet extended release 15 meq PO BID Qty: 180 RF: 3 cholecalciferol (vitamin D3) 50 mcg (2,000 unit) tablet 2,000 units PO QAM Qty: 90 RF: 3 (DME) CPAP Machine Misc See Dose Instructions .ROUTE .MEDSUPPLY Qty: 1 RF: 0 omeprazole 20 mg capsule,delayed release(DR/EC) 20 mg PO BID RF: 0 epoetin sulaiman-epbx See Rx Instructions .ROUTE .COMPLEX RF: 0 naproxen sodium [Aleve] 220 mg tablet 220 mg PO DIRECTED PRN (Reason: Pain) RF: 0 sertraline [Zoloft] 100 mg Tablet 100 mg PO QAM RF: 0 lorazepam 0.5 mg Tablet 0.5 mg PO BID PRN (Reason: Anxiety) RF: 0 docusate sodium [Colace] 100 mg Capsule 100 mg PO BID RF: 0 folic acid 1 mg Tablet 1 mg PO DAILY RF: 0 cyclobenzaprine 5 mg tablet 5 mg PO TID PRN (Reason: Leg Cramps) RF: 0 Discontinued amiodarone 200 mg Tablet 200 mg PO DAILY RF: 0 metoprolol tartrate 25 mg tablet 25 mg PO BID Qty: 60 RF: 1 No Action nitrofurantoin macrocrystal 50 mg capsule 50 mg PO DAILY Qty: 90 RF: 3 Discharge Orders: Discharge Order (Routine); Ordered 05/10/20 Ordered By: Gemini Espinoza Admission Data Admit Date/Time: 05/08/20 11:00 Attending Provider: Gemini Espinoza Admit Provider: Gemini Espinoza Primary Care Provider: Sabra Whatley Other Interventions: Discharge Summary Assessment (RN) Last Done: 05/10/20 18:38 DC Date/Time DO NOT enter until pt leaves facility: 05/10/20 19:16
== END 2020-05-10 19:16 | disposition home or self-care (01) | DRG 243 ==
LOC: EP 08:37 → 1E 11:00 → 2S 05-09 06:31
DX: D64.9 Anemia, unspecified; I12.9 Hypertensive chronic kidney disease with stage 1 through stage 4 chronic kidney disease, or unspecified chronic kidney disease; G47.33 Obstructive sleep apnea (adult) (pediatric); K21.0 Gastro-esophageal reflux disease with esophagitis; F41.9 Anxiety disorder, unspecified; I48.92 Unspecified atrial flutter; G47.34 Idiopathic sleep related nonobstructive alveolar hypoventilation; E66.9 Obesity, unspecified; I48.91 Unspecified atrial fibrillation; N18.3 Chronic kidney disease, stage 3 (moderate); I49.5 Sick sinus syndrome

== ENCOUNTER 2020-10-01 14:29 | Inpatient (IN) ==
[2020-10-01] MEDS ORDERED: SODIUM CHLORIDE 0.9% 1000ML 1,000 ML IV ONE ×2 (15:20→22:14)
--- NOTE | 2020-10-01 15:22 | Emergency Department Note ---
Impression & Plan Complicated UTI (urinary tract infection), Leukopenia, Anemia, Elevated bilirubin ED Provider Note NAME: MICHELLE ARELLANO AGE: 65 SEX: F : 1955 ARRIVES VIA: Walk-In INFORMANT: Patient ED PROVIDER(S): Jonh Rushing DO CHIEF COMPLAINT: Nausea vomiting diarrhea HPI: Patient is a 65-year-old female who presents the ER for nausea, vomiting, and diarrhea. Symptoms started this past Thursday. She has been having about 5-6 episodes of diarrhea per day. Had 2 episodes of vomiting over the weekend. Patient notes that her abdomin is sore from the previous surgery which she had on September 04 following which she went exploratory laparotomy for total abdominal hysterectomy, bilateral salpingooophorectomy and appendectomy. 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 She has not started chemo or radiation at this time. Still awaiting port placement. She noticed that she was jaundiced in the past 24 hours. ROS: See above HPI for pertinent positives & negatives. A total of 10 systems reviewed and were otherwise negative. PAST MEDICAL HISTORY:See Below PAST SURGICAL HISTORY:See Below FAMILY HISTORY:See Below SOCIAL HISTORY:See Below HOME MEDICATIONS:See Below ALLERGIES:See Below VITALS:See Below PHYSICAL EXAMINATION: GENERAL: Sitting up in bed, alert, conically ill-appearing, disheveled EYE EXAM: Scleral icterus OROPHARYNX: Mask in place NECK: supple, no nuchal rigidity, no adenopathy, non-tender LUNGS: Clear to auscultation. Normal chest wall mechanics HEART: no murmurs, S1 normal and S2 normal ABDOMEN: abdomen soft, non-tender, midline incision with dehiscence but is clean dry and intact with packing in place, no surrounding erythema, normo-active bowel sounds, no masses, no rebound or guarding. BACK: Back is symmetrical on inspection and there is no deformity, no midline tenderness, no CVA tenderness. SKIN: no rashes and no bruising UPPER EXTREMITIES: upper extremities are grossly normal. LOWER EXTREMITIES: No pitting edema. NEURO EXAM: Normal sensorium, cranial nerves II-XII grossly intact, normal speech, no gross weakness of arms, no gross weakness of legs. MEDICAL DECISION MAKING: Patient is a 65-year-old female who presents the ER for an elevated bilirubin referred in by hematology oncology. IV established blood work was obtained. Labs show mild leukopenia. Mild anemia at 8.8 consistent with previous. BMP was unremarkable. T bili elevated at 7.3. LFTs were unremarkable. Troponin was negative. Lipase was normal. UA shows UTI. She does take fosfomycin about twice a day. Patient was updated bedside. She has some air in her bladder. CT abdomen pelvis was unremarkable with exception of a likely UTI. Patient was given IV antibiotics and updated bedside discussed the hospitalist for further evaluation of the complicated UTI and elevated bili. Fosfomycin she has been taking twice a day this past week. This can cause some elevation in bilirubin and question if this is the likely cause but cannot be certain. Triage Nursing notes reviewed. Prior medical records reviewed Vital Signs: reviewed and remarkable for HTN Differential diagnosis: Differential diagnoses includes but is not limited to gastritis, peptic ulcer disease, GERD, gallbladder disease, pancreatitis, small bowel obstruction, acute coronary syndrome, pericarditis, ischemic bowel, irritable bowel disease, irritable bowel syndrome, appendicitis, diverticulitis, malignancy, hernia, urinary tract infection, torsion, perforation, trauma, infectious. ER treatment provided: See below Diagnostics interpreted by me: ECG: none Cardiac Monitoring: An order was placed for continuous cardiac monitoring. The monitor shows a rate of 74 with sinus rhythm. Laboratory studies: As stated above and show below. Imaging studies: CT abdomen pelvis was unremarkable Consultation(s): Discussed with the hospitalist for further evaluation ED COURSE: Procedures: none Critical Care: None Past Med/Surg History Medical History (Updated 10/01/20 @ 21:12 by Jonh Rushing DO) Anemia Anxiety and depression CKD (chronic kidney disease), stage III Degenerative disc disease History of blood transfusion 2015 History of kidney stones History of recurrent UTI (urinary tract infection) 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 HTN (hypertension) On home oxygen therapy 2L/MIN NC PRN SOB Osteoarthritis Pacemaker IMPLANTED APRIL 2020 FOR A-FIB (FOLLOWS WITH DR. WELSH) Restless leg syndrome Spinal stenosis HX Spinal stenosis of lumbar region Urinary tract infection "THINKS I HAVE ONE NOW" Surgical History Family history of reaction to anesthesia MOTHER-NAUSEA H/O arthroscopy of knee H/O cystoscopy H/O gastric bypass "1980, reversed in same year" History of arthroscopy LEFT KNEE History of colonoscopy History of esophagogastroduodenoscopy (EGD) History of herniorrhaphy VENTRAL HERNIA REPAIR= 04/27/17= GRADE VIEW 2, CLEMENTE#2, ETT 7.0 AT [facility] History of lithotripsy History of tonsillectomy [place] teeth removed Family History Mother Scleroderma Lupus Father Coronary heart disease Brother Fatty liver Aunt Cancer unspecified Grandfather (Paternal) Heart disease Grandfather (Maternal) Lung disease Grandmother (Paternal) Stroke Grandmother (Maternal) Family history of diabetes mellitus Social History Smoking Status: Never smoker Number of Years Since Quit: 10; Second Hand Exposure: Yes (IN THE PAST); Hx Alcohol Use: No Hx Substance Use: No Preferred Language: Croatian Communication Ability: Effective Visual Impairment: No Limitations Online Marketing Coordinator Required: No Beliefs That Will Affect Care: None marital status: Current Living Situation: Alone Feels Safe at Home: Yes Assistive Devices: Glasses Allergies Allergies Allergy/AdvReac Type Severity Reaction Status Date / Time levofloxacin Allergy Intermediate LE Verified 07/27/20 09:47 swelling and blistering tramadol Allergy Mild Rash Verified 07/27/20 09:47 clindamycin AdvReac Intermediate PT Verified 07/27/20 09:47 CONTRACTED C-DIFF adhesive AdvReac Mild SKIN Verified 07/27/20 09:47 BLISTERS SOME TIMES shellfish derived AdvReac Mild NAUSEA,DIARRHEA, Verified 07/27/20 09:47 VOMITING Home Meds Home Medications Medication Instructions Recorded Confirmed docusate sodium [Colace] 100 mg PO BID PRN 10/18/18 10/01/20 lorazepam 0.5 mg PO BID 10/18/18 10/01/20 sertraline [Zoloft] 100 mg PO QAM 10/18/18 10/01/20 cyclobenzaprine 5 mg PO BID PRN 08/25/19 10/01/20 naproxen sodium 220 mg tablet 220 mg PO DIRECTED PRN 04/12/20 10/01/20 omeprazole 20 mg capsule,delayed 20 mg PO BID 04/12/20 10/01/20 release folic acid 1 mg PO QAM 05/08/20 10/01/20 fosfomycin tromethamine [Monurol] 3 g PO 2XWK 10/01/20 10/01/20 hydrochlorothiazide 25 mg PO QAM 10/01/20 10/01/20 sotalol 80 mg PO BID 10/01/20 10/01/20 Previous Rx's Medication Instructions Recorded potassium citrate 15 mEq (1,620 15 meq PO BID #180 tab 11/21/19 mg) tablet,extended release cholecalciferol (vitamin D3) 50 2,000 units PO QAM #90 tab 04/16/20 mcg (2,000 unit) tablet Results & Data (ED) Vital Signs Vital Signs - 24 hr 10/01/20 14:49 10/01/20 15:37 10/01/20 15:39 Temperature 36.5 C Temperature Source Oral Pulse Rate 65 68 Pulse Rate from SpO2 Sensor 68 Respiratory Rate 16 22 Blood Pressure 147/84 H 143/86 H Blood Pressure Mean 105 110 Pulse Oximetry 93 91 93 Oxygen Delivery Method Room Air Room Air Sepsis Recent Fever Within 48 Hours No Sepsis New/Unexplained Change in Mental Status No Sepsis Action Taken by Nursing No Action Required 10/01/20 15:44 10/01/20 16:00 10/01/20 16:01 Temperature Temperature Source Pulse Rate 68 75 72 Pulse Rate from SpO2 Sensor 68 75 72 Respiratory Rate 21 25 H 25 H Blood Pressure 150/65 H Blood Pressure Mean 90 Pulse Oximetry 91 91 91 Oxygen Delivery Method Room Air Room Air Room Air Sepsis Recent Fever Within 48 Hours Sepsis New/Unexplained Change in Mental Status Sepsis Action Taken by Nursing 10/01/20 16:30 10/01/20 16:31 10/01/20 17:14 Temperature Temperature Source Pulse Rate 68 68 72 Pulse Rate from SpO2 Sensor 68 68 72 Respiratory Rate 20 19 15 Blood Pressure 140/71 Blood Pressure Mean 98 Pulse Oximetry 94 94 93 Oxygen Delivery Method Room Air Room Air Room Air Sepsis Recent Fever Within 48 Hours Sepsis New/Unexplained Change in Mental Status Sepsis Action Taken by Nursing 10/01/20 17:15 10/01/20 17:30 10/01/20 18:00 Temperature Temperature Source Pulse Rate 68 68 69 Pulse Rate from SpO2 Sensor 68 69 69 Respiratory Rate 24 21 24 Blood Pressure 177/78 H 128/60 134/84 Blood Pressure Mean 116 89 93 Pulse Oximetry 93 93 92 Oxygen Delivery Method Room Air Room Air Room Air Sepsis Recent Fever Within 48 Hours Sepsis New/Unexplained Change in Mental Status Sepsis Action Taken by Nursing 10/01/20 18:01 10/01/20 19:00 10/01/20 19:30 Temperature Temperature Source Pulse Rate 68 72 68 Pulse Rate from SpO2 Sensor 67 72 69 Respiratory Rate 23 18 18 Blood Pressure 125/84 140/65 Blood Pressure Mean 92 97 Pulse Oximetry 93 93 94 Oxygen Delivery Method Room Air Sepsis Recent Fever Within 48 Hours Sepsis New/Unexplained Change in Mental Status Sepsis Action Taken by Nursing 10/01/20 20:00 Temperature Temperature Source Pulse Rate 70 Pulse Rate from SpO2 Sensor 71 Respiratory Rate 18 Blood Pressure 139/69 Blood Pressure Mean 94 Pulse Oximetry 93 Oxygen Delivery Method Sepsis Recent Fever Within 48 Hours Sepsis New/Unexplained Change in Mental Status Sepsis Action Taken by Nursing Laboratory Data Result diagrams: 10/01/20 15:37 10/01/20 15:37 Lab Results 10/01/20 10/01/20 10/01/20 Range/Units 15:37 15:37 15:37 WBC 3.49 L (4.8-10.8) K/uL RBC 3.41 L (4.2-5.4) M/uL Hgb 8.8 L (12.0-16.0) g/dL Hct 29.7 L (37-47) % MCV 87.1 (80-100) fL MCH 25.8 (25-34) pg MCHC 29.6 L (32-36) g/dL RDW Std Deviation 85.3 H (36.4-46.3) fL RDW Coeff of Patrica 26.8 H (11.5-14.5) % Plt Count 209 (130-400) K/uL MPV 9.5 (7.4-10.4) fL Immature Gran % (Auto) 0.3 % Neut % (Auto) 67.3 % Lymph % (Auto) 19.5 % [place] % (Auto) 7.4 % Eos % (Auto) 5.2 % Baso % (Auto) 0.3 % Neut # (Auto) 2.35 (1.4-6.5) K/uL Lymph # (Auto) 0.68 L (1.2-3.4) K/uL [place] # (Auto) 0.26 (0.11-0.59) K/uL Eos # (Auto) 0.18 (0-0.5) K/uL Baso # (Auto) 0.01 (0-0.2) K/uL Immature Gran # (Auto) 0.01 (0.00-0.02) K/uL Hypochromasia Present Poikilocytosis Present Anisocytosis Present Sodium 135 L (136-145) mmol/L Potassium 4.5 (3.5-5.1) mmol/L Chloride 103 (98-107) mmol/L Carbon Dioxide 24 (21-32) mmol/L Anion Gap 8.0 (3-11) BUN 26 H (7-18) mg/dl Creatinine 1.02 (0.6-1.2) mg/dl Est Cr Clr Drug Dosing 66.4 ml/min Est GFR ( Amer) 65.9 Est GFR (Non-Af Amer) 56.9 BUN/Creatinine Ratio 25.0 H (10-20) Glucose 81 (70-99) mg/dl Calcium 9.4 (8.5-10.1) mg/dl Magnesium 2.1 (1.8-2.4) mg/dl Total Bilirubin 7.3 H (0.2-1) mg/dl Direct Bilirubin 6.2 H (0-0.2) mg/dl AST 56 H (15-37) U/L ALT 61 (12-78) U/L Alkaline Phosphatase 221 H (45-117) U/L Troponin I < 0.015 (0-0.045) ng/ml Total Protein 7.7 (6.4-8.2) gm/dl Albumin 3.1 L (3.4-5.0) gm/dl Globulin 4.6 H (2.5-4.0) gm/dl Albumin/Globulin Ratio 0.7 L (0.9-2) Lipase 56 L (73-393) U/L Urine Color Urine Appearance (Clear) Urine pH (4.5-7.5) Ur Specific [place] (1.000-1.030) Urine Protein (Negative) Urine Glucose (UA) (Negative) Urine Ketones (Negative) Urine Blood (Negative) Urine Nitrite (Negative) Urine Bilirubin (Negative) Urine Urobilinogen (Negative) Ur Leukocyte Esterase (Negative) Urine WBC (Auto) (0-5) /hpf Urine RBC (Auto) (0-4) /hpf U Hyaline Cast (Auto) (0-5) /lpf U Epithel Cells (Auto) (0-5) /lpf Urine Bacteria (Auto) (Negative) SARS-CoV-2 Ag (Rapid) (Negative) 10/01/20 10/01/20 Range/Units 17:13 Unknown WBC (4.8-10.8) K/uL RBC (4.2-5.4) M/uL Hgb (12.0-16.0) g/dL Hct (37-47) % MCV (80-100) fL MCH (25-34) pg MCHC (32-36) g/dL RDW Std Deviation (36.4-46.3) fL RDW Coeff of Patrica (11.5-14.5) % Plt Count (130-400) K/uL MPV (7.4-10.4) fL Immature Gran % (Auto) % Neut % (Auto) % Lymph % (Auto) % [place] % (Auto) % Eos % (Auto) % Baso % (Auto) % Neut # (Auto) (1.4-6.5) K/uL Lymph # (Auto) (1.2-3.4) K/uL [place] # (Auto) (0.11-0.59) K/uL Eos # (Auto) (0-0.5) K/uL Baso # (Auto) (0-0.2) K/uL Immature Gran # (Auto) (0.00-0.02) K/uL Hypochromasia Poikilocytosis Anisocytosis Sodium (136-145) mmol/L Potassium (3.5-5.1) mmol/L Chloride (98-107) mmol/L Carbon Dioxide (21-32) mmol/L Anion Gap (3-11) BUN (7-18) mg/dl Creatinine (0.6-1.2) mg/dl Est Cr Clr Drug Dosing ml/min Est GFR ( Amer) Est GFR (Non-Af Amer) BUN/Creatinine Ratio (10-20) Glucose (70-99) mg/dl Calcium (8.5-10.1) mg/dl Magnesium (1.8-2.4) mg/dl Total Bilirubin (0.2-1) mg/dl Direct Bilirubin (0-0.2) mg/dl AST (15-37) U/L ALT (12-78) U/L Alkaline Phosphatase (45-117) U/L Troponin I (0-0.045) ng/ml Total Protein (6.4-8.2) gm/dl Albumin (3.4-5.0) gm/dl Globulin (2.5-4.0) gm/dl Albumin/Globulin Ratio (0.9-2) Lipase (73-393) U/L Urine Color Dark Yellow Urine Appearance Clear (Clear) Urine pH 7.0 (4.5-7.5) Ur Specific [place] 1.017 (1.000-1.030) Urine Protein Trace H (Negative) Urine Glucose (UA) Negative (Negative) Urine Ketones Negative (Negative) Urine Blood Negative (Negative) Urine Nitrite Positive A (Negative) Urine Bilirubin 2+ H (Negative) Urine Urobilinogen Negative (Negative) Ur Leukocyte Esterase 2+ H (Negative) Urine WBC (Auto) >30 H (0-5) /hpf Urine RBC (Auto) 0-4 (0-4) /hpf U Hyaline Cast (Auto) 1-5 (0-5) /lpf U Epithel Cells (Auto) 0-5 (0-5) /lpf Urine Bacteria (Auto) 2+ H (Negative) SARS-CoV-2 Ag (Rapid) Negative (Negative) Administered Medications Discontinued Medications Sodium Chloride (Nss 1000ml) 1,000 mls @ 999 mls/hr IV .[id number] ONE Stop: 10/01/20 16:20 Last Infusion: 10/01/20 16:39 Dose: 0 mls/hr Documented by: [id number] Admin: 10/01/20 15:38 Dose: 999 mls/hr Documented by: [id number] Ceftriaxone Sodium (Rocephin) 1,000 mg in 50 mls @ 100 mls/hr IV NOW STA Stop: 10/01/20 18:47 Last Admin: 10/01/20 18:33 Dose: 100 mls/hr Documented by: [id number] Ertapenem (Invanz) 10 mls @ 2 mls/min IV NOW STA Stop: 10/01/20 19:46 Last Admin: 10/01/20 20:21 Dose: 2 mls/min Documented by: [id number] Ioversol (Ioversol 100ml) 94 ml IV ONCE ONE Stop: 10/01/20 17:05 Last Admin: 10/01/20 17:04 Dose: 94 ml Documented by: [id number] Discharge Plan Visit Data Chief Complaint: Abnormal Labs/Diagnostic Testing Stated Complaint: DR REF, ABNORMAL LABS ED Provider: Jonh Rushing Discharge Problem: Complicated UTI (urinary tract infection), Leukopenia, Anemia, Elevated bilirubin Forms Stand Alone Forms: [facility]! Prescriptions Prescriptions: No Action potassium citrate 15 mEq tablet extended release 15 meq PO BID Qty: 180 RF: 3 cholecalciferol (vitamin D3) 50 mcg (2,000 unit) tablet 2,000 units PO QAM Qty: 90 RF: 3 omeprazole 20 mg capsule,delayed release(DR/EC) 20 mg PO BID RF: 0 naproxen sodium [Aleve] 220 mg tablet 220 mg PO DIRECTED PRN (Reason: Pain) RF: 0 sertraline [Zoloft] 100 mg Tablet 100 mg PO QAM RF: 0 lorazepam 0.5 mg Tablet 0.5 mg PO BID RF: 0 docusate sodium [Colace] 100 mg Capsule 100 mg PO BID PRN (Reason: Constipation) RF: 0 folic acid 1 mg Tablet 1 mg PO QAM RF: 0 fosfomycin tromethamine [Monurol] 3 gram packet 3 g PO 2XWK RF: 0 sotalol 80 mg tablet 80 mg PO BID RF: 0 hydrochlorothiazide 25 mg tablet 25 mg PO QAM RF: 0 cyclobenzaprine 5 mg tablet 5 mg PO BID PRN (Reason: Muscle Spasm) RF: 0 Discharge Problem: Leukopenia Qualifiers: Leukopenia type: unspecified Qualified Code(s): D72.819 - Decreased white blood cell count, unspecified Anemia Qualifiers: Anemia type: unspecified type Qualified Code(s): D64.9 - Anemia, unspecified
[2020-10-01 15:49] LABS: Basophils # (auto) 0.01 K/uL (0-0.2); Basophils % (auto) 0.3 %; Eosinophils # (auto) 0.18 K/uL (0-0.5); Eosinophils % (auto) 5.2 %; Hematocrit (blood only) 29.7 % (37-47); Hemoglobin 8.8 g/dL (12.0-16.0); Immature Granulocytes # (auto) 0.01 K/uL (0.00-0.02); Immature Granulocytes % (auto) 0.3 %; Lymphocytes # (auto) 0.68 K/uL (1.2-3.4); Lymphocytes % (auto) 19.5 %; Mean Corpuscular Hemoglobin 25.8 pg (25-34); Mean Corpuscular Hgb Conc 29.6 g/dL (32-36); Mean Corpuscular Volume 87.1 fL (80-100); Mean Platelet Volume 9.5 fL (7.4-10.4); Monocytes # (auto) 0.26 K/uL (0.11-0.59); Monocytes % (auto) 7.4 %; Neutrophils # (auto) 2.35 K/uL (1.4-6.5); Neutrophils % (auto) 67.3 %; Platelet Count 209 K/uL (130-400); RDW Coefficient of Variation 26.8 % (11.5-14.5); RDW Standard Deviation 85.3 fL (36.4-46.3); Red Blood Count 3.41 M/uL (4.2-5.4); White Blood Count 3.49 K/uL (4.8-10.8)
[2020-10-01 16:12] LABS: Alanine Aminotransferase 61 U/L (12-78); Albumin Level 3.1 gm/dl (3.4-5.0); Aspartate Aminotransferase 56 U/L (15-37); Blood Urea Nitrogen 26 mg/dl (7-18); Calcium 9.4 mg/dl (8.5-10.1); Carbon Dioxide 24 mmol/L (21-32); Chloride 103 mmol/L (98-107); Creatinine Clr Calc Pharmacy 66.4 ml/min; Est GFR (African American) 65.9; Est GFR (Non-African American) 56.9; Glucose 81 mg/dl (70-99); Lipase 56 U/L (73-393); Potassium 4.5 mmol/L (3.5-5.1); Sodium 135 mmol/L (136-145)
[2020-10-01 16:18] LABS: Albumin Globulin Ratio 0.7 (0.9-2); Alkaline Phosphatase 221 U/L (45-117); Bilirubin,Total 7.3 mg/dl (0.2-1); Globulin 4.6 gm/dl (2.5-4.0); Total Protein 7.7 gm/dl (6.4-8.2); Troponin I < 0.015 ng/ml (0-0.045)
[2020-10-01 16:25] LABS: Anisocytosis Present; Hypochromasia Present; Poikilocytosis Present
[2020-10-01] MEDS ORDERED: IOVERSOL 100ml IV ONE (17:04)
--- NOTE | 2020-10-01 17:24 | CT Scan Report ---
CT SCAN OF THE ABDOMEN AND PELVIS WITH IV CONTRAST CLINICAL HISTORY: Nausea and vomiting. Jaundice. Diarrhea. COMPARISON STUDY: Abdominal CT dated 06/04/2020. TECHNIQUE: Following the IV administration of 94 cc of Optiray 320, CT scan of the abdomen and pelvi s is performed from the lung bases to the proximal femora. Images are reviewed in the axial, sagittal , and coronal planes. IV contrast was administered without complication. A dose lowering technique wa s utilized adhering to the principles of ALARA. CT DOSE: 1382.56 mGy.cm FINDINGS: Lung bases: The heart is top normal in size and without pericardial effusion. Pacemaker leads are not ed. The lung bases are clear noting bibasilar scarring/atelectasis. Liver: The contrast-enhanced liver is enlarged, measuring 22.4 cm in length. Mild nodularity of the h epatic surface contour suggests early change of cirrhosis. There is no intrahepatic biliary ductal di latation. The hepatic veins and portal veins are patent. Gallbladder: Unremarkable. Spleen: The spleen is enlarged, measuring 19.0 cm in length. Pancreas: Atrophic and grossly unremarkable. Adrenal glands: Unremarkable. Kidneys: The contrast enhanced kidneys demonstrate cortical atrophy and are without hydronephrosis. T he kidneys enhance symmetrically. Foci of cortical scarring are seen in the right upper pole. Scatter ed subcentimeter cortical hypodensities likely represent cysts but are too small for definitive dasha cterization. Numerous nonobstructing calculi are seen in both kidneys. Small foci of gas are noted wi thin the right renal collecting system. Abdominal vasculature: The abdominal aorta is normal in course and caliber. Stomach and bowel: Postoperative change is noted in the stomach. No bowel obstruction is seen. Modera te fecal retention is noted in the colon. There is mild colonic diverticulosis without CT evidence of acute diverticulitis. The appendix is not identified and reported surgically absent. Peritoneum: There is no intraperitoneal free air or abdominal ascites. There is evidence of previous ventral hernia repair. A midline surgical incision is noted in the pelvis with induration of the vent ral abdominal pannus. Lymphadenopathy: None. Pelvic viscera: Foci of gas are noted in the bladder lumen. The bladder is otherwise normal in appear ance. The uterus is surgically absent. No adnexal lesion is seen. Skeletal structures: The skeletal structures are osteopenic. Moderate lumbosacral spondylosis is obse rved. No lytic or blastic lesions are seen. IMPRESSION: 1. Foci of gas within the bladder lumen and the right renal collecting system are nonspecific and may be related to instrumentation. Correlate with urinalysis for evidence of urinary tract infection. 2. There are numerous bilateral nonobstructing renal calculi. No ureteral stone or hydronephrosis is seen. 3. The liver is enlarged and heterogeneous. Nodularity of the surface contour indicates cirrhotic melina nge. 4. Marked splenomegaly. 5. Mild colonic diverticulosis without CT evidence of acute diverticulitis. 6. A midline incision is noted in the pelvis with induration of the pelvic pannus. Correlate with the patient's surgical history and clinically for evidence of cellulitis. 7. Additional findings as above. ACT 112: Negative or not required by law. Electronically signed by: Freddie Mae M.D. 10/01/2020 5:23 PM
[2020-10-01 17:32] LABS: Appearance Urine Clear (Clear); Bacteria Urine Automated 2+ (Negative); Blood Urine Negative (Negative); Color Urine Dark Yellow; Epithelial Cell Urine Auto 0-5 /lpf (0-5); Glucose Urine UA Negative (Negative); Ketones Urine Negative (Negative); Leukocyte Esterase Urine 2+ (Negative); Nitrite Urine Positive (Negative); Protein Urine Trace (Negative); RBC Urine Automated 0-4 /hpf (0-4); Specific Gravity Urine 1.017 (1.000-1.030); Urobilinogen Urine Negative (Negative); WBC Urine Automated >30 /hpf (0-5)
[2020-10-01 17:47] LABS: Bilirubin Urine 2+ (Negative); Ictotest Urine Positive (Negative)
[2020-10-01] MEDS ORDERED: cefTRIAXone SODIUM 1,000 MG/50 ML BAG IV STA (18:18)
[2020-10-01] MEDS ORDERED: ERTAPENEM SODIUM 10 ML IV STA (19:42)
[2020-10-01 19:55] LABS: Bilirubin Direct 6.2 mg/dl (0-0.2); Magnesium 2.1 mg/dl (1.8-2.4)
--- NOTE | 2020-10-01 20:37 | History & Physical Report ---
Date of Service October 01, 2020 Assessment & Plan (1) Abdominal pain: Secondary to complicated UTI (hx recurrent ESBL E. coli UTI) Patient not septic for now. Rule out recurrent C. difficile Abnormal LFTs, new diagnosis cirrhosis hx chronic hepatosplenomegaly on imaging since 2019 Possible fatty liver disease SSS sp PPM not on anticoagulation secondary to GI bleed ovarian cancer status post surgery, slow healing wound without gross infection as per patient chronic anemia, hemoglobin at baseline past tobacco abuse GMF Follow urine cultures, Ertapenem [facility] ID consult if urine CS grow multidrug-resistant bacteria Stool C. difficile GI consult RE abnormal LFTs, cirrhosis on updated imaging DVT prophylaxis with SCDs Re: History of GI bleed Full code Text document was generated using [employer] voice recognition software. It may contain grammatical or spelling errors. Kindly contact undersigned for clarification of any documentation item in question. History of Present Illness Chief Complaint: Abdominal pain, nausea, vomiting, diarrhea Primary Care Provider: Sabra Whatley, History obtained from patient, family, and records. Medical history significant for SSS sp PPM not on anticoagulation secondary to GI bleed, ovarian cancer status post surgery, chronic anemia (baseline hemoglobin 8-9), chronic hepatosplenomegaly, recurrent ESBL E. coli UTI, history of C. difficile secondary to clindamycin, past tobacco abuse. Patient seen by [facility] GI outpatient last December 2018 for evaluation of in cidental findings of hepatosplenomegaly, ascites on CAT scan. Fatty liver disease and hemochromatosis as possibilities as per documentation. Cirrhosis unlikely given CAT scan findings and absence of signs and symptoms of decompensated liver disease at time of consultation as per note. Last confinement August 2019 for new onset A. fib/atrial flutter with RVR. Anticoagulation subsequently discontinued secondary to GI bleed, recurrent anemia. Patient eventually underwent PPM implantation for sick sinus syndrome last April 2020. Last August 2020, patient underwent elective gynecologic surgery for left ovarian cancer. Slow healing abdominal incisional wound as per patient. Patient healing well on outpatient outpatient Gynecology follow-up documentation from 2 weeks ago. Cytotoxic chemotherapy recommended by tumor board. Few days history of achy abdominal discomfort with nausea vomiting diarrhea symptoms. Increased urinary frequency. No fever, no chills. No chest pain, no S OB. Patient's brother thought patient looked yellow. No inordinate Tylenol or recent alcohol intake. Abnormal LFTs noted outpatient. ALT 54, AST 60, alk phos 198, albumin 3.6, total bilirubin 7.4 Sent to the ER for evaluation. Given Ceftriaxone for UTI. 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 Allergies Allergy/AdvReac Type Severity Reaction Status Date / Time levofloxacin Allergy Intermediate LE Verified 07/27/20 09:47 swelling and blistering tramadol Allergy Mild Rash Verified 07/27/20 09:47 clindamycin AdvReac Intermediate PT Verified 07/27/20 09:47 CONTRACTED C-DIFF adhesive AdvReac Mild SKIN Verified 07/27/20 09:47 BLISTERS SOME TIMES shellfish derived AdvReac Mild NAUSEA,DIARRHEA, Verified 07/27/20 09:47 VOMITING Home Medications Medication Instructions Recorded Confirmed Type docusate sodium [Colace] 100 mg PO BID PRN 10/18/18 10/01/20 History lorazepam 0.5 mg PO BID 10/18/18 10/01/20 History sertraline [Zoloft] 100 mg PO QAM 10/18/18 10/01/20 History cyclobenzaprine 5 mg PO BID PRN 08/25/19 10/01/20 History potassium citrate 15 mEq (1,620 15 meq PO BID #180 tab 11/21/19 10/01/20 Rx mg) tablet,extended release naproxen sodium 220 mg tablet 220 mg PO DIRECTED PRN 04/12/20 10/01/20 History omeprazole 20 mg capsule,delayed 20 mg PO BID 04/12/20 10/01/20 History release cholecalciferol (vitamin D3) 50 2,000 units PO QAM #90 tab 04/16/20 10/01/20 Rx mcg (2,000 unit) tablet folic acid 1 mg PO QAM 05/08/20 10/01/20 History fosfomycin tromethamine [Monurol] 3 g PO 2XWK 10/01/20 10/01/20 History hydrochlorothiazide 25 mg PO QAM 10/01/20 10/01/20 History sotalol 80 mg PO BID 10/01/20 10/01/20 History Past Med/Surg History Medical History (Updated 10/02/20 @ 11:04 by TAWANNA Petersen) Anemia Anxiety and depression CKD (chronic kidney disease), stage III Degenerative disc disease History of blood transfusion 2015 History of kidney stones History of recurrent UTI (urinary tract infection) 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 HTN (hypertension) On home oxygen therapy 2L/MIN NC PRN SOB Osteoarthritis Pacemaker IMPLANTED APRIL 2020 FOR A-FIB (FOLLOWS WITH DR. WELSH) Restless leg syndrome Spinal stenosis HX Spinal stenosis of lumbar region Urinary tract infection "THINKS I HAVE ONE NOW" Surgical History Family history of reaction to anesthesia MOTHER-NAUSEA H/O arthroscopy of knee H/O cystoscopy H/O gastric bypass "1980, reversed in same year" History of arthroscopy LEFT KNEE History of colonoscopy History of esophagogastroduodenoscopy (EGD) History of herniorrhaphy VENTRAL HERNIA REPAIR= 04/27/17= GRADE VIEW 2, CLEMENTE#2, ETT 7.0 AT [facility] History of lithotripsy History of tonsillectomy [place] teeth removed Family History Mother Scleroderma Lupus Father Coronary heart disease Brother Fatty liver Aunt Cancer unspecified Grandfather (Paternal) Heart disease Grandfather (Maternal) Lung disease Grandmother (Paternal) Stroke Grandmother (Maternal) Family history of diabetes mellitus Social History Smoking Status: Never smoker Number of Years Since Quit: 10; Second Hand Exposure: Yes (IN THE PAST); Hx Alcohol Use: No Hx Substance Use: No Preferred Language: [place]ese Communication Ability: Effective Visual Impairment: No Limitations Quality Cloth Tester Required: No Beliefs That Will Affect Care: None marital status: Current Living Situation: Alone Feels Safe at Home: Yes Safety Concerns: Feels Safe At This Time Assistive Devices: Glasses Review of Systems Review of Systems: As per HPI, all 10 systems reviewed, all other ROS negative Physical Exam Physical Exam: GENERAL: Comfortable, slightly anxious, obese, no respiratory distress SKIN: Jaundiced, warm HEENT: pale palpebral conjunctivae, no ptosis, dry buccal mucosa NECK : Supple, short neck, no tenderness CHEST : CTA, no tenderness HEART : RRR, no obvious murmurs ABDOMEN: Some distention, dressing over suprapubic area EXTREMITIES : Minimal LE swelling, no LE tenderness, no other conspicuous deformities noted NEUROLOGIC : Coherent, no facial asymmetry, no other gross focality Results & Data Results & Data ([facility]) Vital Signs (Past 12 Hours) Vital Signs Temp Pulse Resp BP Pulse Ox 10/01/20 18:01 68 23 93 10/01/20 18:00 69 24 134/84 92 10/01/20 17:30 68 21 128/60 93 10/01/20 17:15 68 24 177/78 H 93 10/01/20 17:14 72 15 93 10/01/20 16:31 68 19 94 10/01/20 16:30 68 20 140/71 94 10/01/20 16:01 72 25 H 150/65 H 91 10/01/20 16:00 75 25 H 91 10/01/20 15:44 68 21 91 10/01/20 15:39 93 10/01/20 15:37 68 22 143/86 H 91 10/01/20 14:49 36.5 C 65 16 147/84 H 93 Laboratory Results Laboratory Results WBC 3.49 K/uL (4.8-10.8) L 10/01/20 15:37 RBC 3.41 M/uL (4.2-5.4) L 10/01/20 15:37 Hgb 8.8 g/dL (12.0-16.0) L 10/01/20 15:37 Hct 29.7 % (37-47) L 10/01/20 15:37 MCV 87.1 fL (80-100) 10/01/20 15:37 MCH 25.8 pg (25-34) 10/01/20 15:37 MCHC 29.6 g/dL (32-36) L 10/01/20 15:37 RDW Std Deviation 85.3 fL (36.4-46.3) H 10/01/20 15:37 RDW Coeff of Patrica 26.8 % (11.5-14.5) H 10/01/20 15:37 Plt Count 209 K/uL (130-400) 10/01/20 15:37 MPV 9.5 fL (7.4-10.4) 10/01/20 15:37 Immature Gran % (Auto) 0.3 % 10/01/20 15:37 Neut % (Auto) 67.3 % 10/01/20 15:37 Lymph % (Auto) 19.5 % 10/01/20 15:37 [place] % (Auto) 7.4 % 10/01/20 15:37 Eos % (Auto) 5.2 % 10/01/20 15:37 Baso % (Auto) 0.3 % 10/01/20 15:37 Neut # (Auto) 2.35 K/uL (1.4-6.5) 10/01/20 15:37 Lymph # (Auto) 0.68 K/uL (1.2-3.4) L 10/01/20 15:37 [place] # (Auto) 0.26 K/uL (0.11-0.59) 10/01/20 15:37 Eos # (Auto) 0.18 K/uL (0-0.5) 10/01/20 15:37 Baso # (Auto) 0.01 K/uL (0-0.2) 10/01/20 15:37 Immature Gran # (Auto) 0.01 K/uL (0.00-0.02) 10/01/20 15:37 Hypochromasia Present 10/01/20 15:37 Poikilocytosis Present 10/01/20 15:37 Anisocytosis Present 10/01/20 15:37 Sodium 135 mmol/L (136-145) L 10/01/20 15:37 Potassium 4.5 mmol/L (3.5-5.1) 10/01/20 15:37 Chloride 103 mmol/L (98-107) 10/01/20 15:37 Carbon Dioxide 24 mmol/L (21-32) 10/01/20 15:37 Anion Gap 8.0 (3-11) 10/01/20 15:37 BUN 26 mg/dl (7-18) H 10/01/20 15:37 Creatinine 1.02 mg/dl (0.6-1.2) 10/01/20 15:37 Est Cr Clr Drug Dosing 66.4 ml/min 10/01/20 15:37 Est GFR ( Amer) 65.9 10/01/20 15:37 Est GFR (Non-Af Amer) 56.9 10/01/20 15:37 BUN/Creatinine Ratio 25.0 (10-20) H 10/01/20 15:37 Glucose 81 mg/dl (70-99) 10/01/20 15:37 Calcium 9.4 mg/dl (8.5-10.1) 10/01/20 15:37 Magnesium 2.1 mg/dl (1.8-2.4) 10/01/20 15:37 Total Bilirubin 7.3 mg/dl (0.2-1) H 10/01/20 15:37 Direct Bilirubin 6.2 mg/dl (0-0.2) H 10/01/20 15:37 AST 56 U/L (15-37) H 10/01/20 15:37 ALT 61 U/L (12-78) 10/01/20 15:37 Alkaline Phosphatase 221 U/L (45-117) H 10/01/20 15:37 Troponin I < 0.015 ng/ml (0-0.045) 10/01/20 15:37 Total Protein 7.7 gm/dl (6.4-8.2) 10/01/20 15:37 Albumin 3.1 gm/dl (3.4-5.0) L 10/01/20 15:37 Globulin 4.6 gm/dl (2.5-4.0) H 10/01/20 15:37 Albumin/Globulin Ratio 0.7 (0.9-2) L 10/01/20 15:37 Lipase 56 U/L (73-393) L 10/01/20 15:37 Urine Color Dark Yellow 10/01/20 17:13 Urine Appearance Clear (Clear) 10/01/20 17:13 Urine pH 7.0 (4.5-7.5) 10/01/20 17:13 Ur Specific [place] 1.017 (1.000-1.030) 10/01/20 17:13 Urine Protein Trace (Negative) H 10/01/20 17:13 Urine Glucose (UA) Negative (Negative) 10/01/20 17:13 Urine Ketones Negative (Negative) 10/01/20 17:13 Urine Blood Negative (Negative) 10/01/20 17:13 Urine Nitrite Positive (Negative) A 10/01/20 17:13 Urine Bilirubin 2+ (Negative) H 10/01/20 17:13 Urine Urobilinogen Negative (Negative) 10/01/20 17:13 Ur Leukocyte Esterase 2+ (Negative) H 10/01/20 17:13 Urine WBC (Auto) >30 /hpf (0-5) H 10/01/20 17:13 Urine RBC (Auto) 0-4 /hpf (0-4) 10/01/20 17:13 U Hyaline Cast (Auto) 1-5 /lpf (0-5) 10/01/20 17:13 U Epithel Cells (Auto) 0-5 /lpf (0-5) 10/01/20 17:13 Urine Bacteria (Auto) 2+ (Negative) H 10/01/20 17:13 SARS-CoV-2 Ag (Rapid) Negative (Negative) 10/01/[address] abdomen pelvis: 1. Foci of gas within the bladder lumen and the right renal collecting system are nonspecific and may be related to instrumentation. Correlate with urinalysis for evidence of urinary tract infection. 2. There are numerous bilateral nonobstructing renal calculi. No ureteral stone or hydronephrosis is seen. 3. The liver is enlarged and heterogeneous. Nodularity of the surface contour indicates cirrhotic change. 4. Marked splenomegaly. 5. Mild colonic diverticulosis without CT evidence of acute diverticulitis. 6. A midline incision is noted in the pelvis with induration of the pelvic pannus. Correlate with the patient's surgical history and clinically for evidence of cellulitis. Code Status & VTE Plan VTE Prophylaxis Plan VTE Prophylaxis will be ordered: Yes
[2020-10-01] MEDS: SOTALOL HCL 80 MG TAB PO SCH (21:45)
[2020-10-01] MEDS ORDERED: PROMETHAZINE HCL 12.5 MG in SODIUM CHLORIDE 0.9% 50 ML IV PRN (22:14)
[2020-10-01] MEDS ORDERED: oxyCODONE HCL IR 5 MG TAB (IMMEDIATE RELEASE) PO PRN (22:14)
[2020-10-01] MEDS ORDERED: MoRPHine SULFATE 4 MG/ML 1 ML CARP\\VIAL IV PRN (22:14)
[2020-10-01] MEDS ORDERED: ACETAMINOPHEN 325 MG TAB PO PRN (22:14)
[2020-10-01] MEDS ORDERED: NON-FORMULARY MEDICATION (Potassium Citrate 15 mEq tablet extended release) PO SCH (22:14)
[2020-10-01] MEDS ORDERED: ERTAPENEM CONSULT ACTIVE PRN (22:24)
[2020-10-02] MEDS: LORazepam 0.5 MG TAB PO SCH ×3 (00:02→20:26)
[2020-10-02] MEDS: PANTOprazole 40 MG TAB PO SCH ×3 (00:02→20:26)
[2020-10-02 08:27] LABS: Eosinophils # (auto) 0.12 K/uL (0-0.5); Eosinophils % (auto) 5.1 %; Hematocrit (blood only) 29.1 % (37-47); Hemoglobin 8.6 g/dL (12.0-16.0); Immature Granulocytes # (auto) 0.02 K/uL (0.00-0.02); Immature Granulocytes % (auto) 0.8 %; Lymphocytes # (auto) 0.61 K/uL (1.2-3.4); Lymphocytes % (auto) 25.8 %; Mean Corpuscular Hemoglobin 26.1 pg (25-34); Mean Corpuscular Hgb Conc 29.6 g/dL (32-36); Mean Corpuscular Volume 88.2 fL (80-100); Mean Platelet Volume 10.5 fL (7.4-10.4); Monocytes # (auto) 0.26 K/uL (0.11-0.59); Neutrophils # (auto) 1.35 K/uL (1.4-6.5); Neutrophils % (auto) 57.3 %; Platelet Count 225 K/uL (130-400); RDW Coefficient of Variation 26.8 % (11.5-14.5); RDW Standard Deviation 86.5 fL (36.4-46.3); White Blood Count 2.36 K/uL (4.8-10.8)
[2020-10-02 08:42] LABS: INR 1.2 (0.9-1.1); Prothrombin Time 12.8 Seconds (9.0-12.0)
[2020-10-02 08:55] LABS: Anisocytosis Present
[2020-10-02 09:00] LABS: RBC Morphology Unremarkable
[2020-10-02 09:01] LABS: Albumin Level 2.8 gm/dl (3.4-5.0); BUN Creatinine Ratio 21.3 (10-20); Calcium 9.1 mg/dl (8.5-10.1); Creatinine Clr Calc Pharmacy 78.9 ml/min; Est GFR (African American) 82.2; Est GFR (Non-African American) 70.9; Potassium 4.4 mmol/L (3.5-5.1)
[2020-10-02 09:02] LABS: Albumin Globulin Ratio 0.7 (0.9-2); Bilirubin,Total 5.9 mg/dl (0.2-1); Globulin 4.2 gm/dl (2.5-4.0)
[2020-10-02] MEDS: FOLIC ACID 1 MG TAB PO SCH (09:22)
[2020-10-02] MEDS: SOTALOL HCL 80 MG TAB PO SCH ×2 (09:22→20:26)
[2020-10-02] MEDS: SERTRALINE HCL 100 MG TABLET PO SCH (09:22)
--- NOTE | 2020-10-02 11:04 | Gastrointestinal Consultation ---
Date of Consultation October 02, 2020 Assessment & Plan (1) Jaundice: (2) Abdominal pain: (3) Diarrhea: (4) Complicated UTI (urinary tract infection): Pt is a 65 y/o female presented w acute jaundice, nausea, abd pain, diarrhea symptoms. Hx of chronic UTI w current urine cx growing GNB (hx of ESBL ecoli), and recently dx w L ovarian ca s/p total hysterectomy & appendectomy [address] abd/pelvis w signs of early cirrhosis changes in liver. Previous liver dz workup w/o signs of AIH, HFE DNA negative, HCV negative. - Obtain MRCP to r/o biliary obstruction (pt has MR conditional pacemaker) - Check acute hepatitis panel - Cdiff negative, obtain stool cx - UTI management per primary team - Trend LFTs Supervising Physician Co-Signing Physician Notes Late entry: Patient was seen and examined with Macey STACY on 10/02. her note reflects our findings and plan. History of Present Illness Reason for Consultation: Cirrhosis, jaundice Requesting Physician: Dr. Jesse Cochran Attending Physician: Dr. Susan Moon History of Present Illness Pt is a 65 y/o female w PMH hx of chronic UTI, CKD, HTNAFib, GERD, ventral hernia s/p repair, ? fatty liver cirrhosis who is referred to ED for jaundice and elevated LFTs. She was recently dx w L ovarian ca s/p total hysterectomy and appendectomy 1 month ago. Was supposed to get port placement and start chemotherapy soon (Carboplatin + Taxol). She noticed herself being jaundiced 1-2 days ago, also having symptoms of general abd discomfort, nausea, diarrhea for about 2 weeks. Denies fever, chills, CP, SOB. LFTs on admission: Tbili 7.3, AST 56, ALT, AP 221, lipase 56. CBC showed chronic stable anemia, PT INR 12/1.2. Urine cx growing GNB (hx of Ecoli ESBL). Cdiff negative. CT abd/pelvis w contrast showed gas in R renal collecting system ? related to UTI vs instrumentation, bilateral non obstructing renal calculi w/o hydronephrosis, liver is enlarged & heterogenous, indicates possible early cirrhosis, marked splenomegaly, diverticuli w/o diverticulitis, midline incision s/p recent surgery. Her previous w/o for cirrhosis showed no signs of AIH. Ferritin elevated but w normal trans sat and HFE DNA test negative. She denies ETOH, tobacco, IVDU, tattoos, body piercing, or family hx of hepatobiliary dz, ca. New med include Monurol for UTI, no herbal supplements or excessive APAP uses Colonoscopy 07/27/2020 - diverticulosis sigmoid colon, otherwise normal EGD 2017 unremarkable. Allergies Allergy/AdvReac Type Severity Reaction Status Date / Time levofloxacin Allergy Intermediate LE Verified 07/27/20 09:47 swelling and blistering tramadol Allergy Mild Rash Verified 07/27/20 09:47 clindamycin AdvReac Intermediate PT Verified 07/27/20 09:47 CONTRACTED C-DIFF adhesive AdvReac Mild SKIN Verified 07/27/20 09:47 BLISTERS SOME TIMES shellfish derived AdvReac Mild NAUSEA,DIARRHEA, Verified 07/27/20 09:47 VOMITING Home Medications Medication Instructions Recorded Confirmed Type docusate sodium [Colace] 100 mg PO BID PRN 10/18/18 10/01/20 History lorazepam 0.5 mg PO BID 10/18/18 10/01/20 History sertraline [Zoloft] 100 mg PO QAM 10/18/18 10/01/20 History cyclobenzaprine 5 mg PO BID PRN 08/25/19 10/01/20 History potassium citrate 15 mEq (1,620 15 meq PO BID #180 tab 11/21/19 10/01/20 Rx mg) tablet,extended release naproxen sodium 220 mg tablet 220 mg PO DIRECTED PRN 04/12/20 10/01/20 History omeprazole 20 mg capsule,delayed 20 mg PO BID 04/12/20 10/01/20 History release cholecalciferol (vitamin D3) 50 2,000 units PO QAM #90 tab 04/16/20 10/01/20 Rx mcg (2,000 unit) tablet folic acid 1 mg PO QAM 05/08/20 10/01/20 History fosfomycin tromethamine [Monurol] 3 g PO 2XWK 10/01/20 10/01/20 History hydrochlorothiazide 25 mg PO QAM 10/01/20 10/01/20 History sotalol 80 mg PO BID 10/01/20 10/01/20 History Patient History Medical History (Updated 10/02/20 @ 11:04 by TAWANNA Petersen) Anemia Anxiety and depression CKD (chronic kidney disease), stage III Degenerative disc disease History of blood transfusion 2015 History of kidney stones History of recurrent UTI (urinary tract infection) 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 HTN (hypertension) On home oxygen therapy 2L/MIN [place] PRN SOB Osteoarthritis Pacemaker IMPLANTED APRIL 2020 FOR A-FIB (FOLLOWS WITH DR. WELSH) Restless leg syndrome Spinal stenosis HX Spinal stenosis of lumbar region Urinary tract infection "THINKS I HAVE ONE NOW" Surgical History Family history of reaction to anesthesia MOTHER-NAUSEA H/O arthroscopy of knee H/O cystoscopy H/O gastric bypass "1980, reversed in same year" History of arthroscopy LEFT KNEE History of colonoscopy History of esophagogastroduodenoscopy (EGD) History of herniorrhaphy VENTRAL HERNIA REPAIR= 04/27/17= GRADE VIEW 2, CLEMENTE#2, ETT [address] [facility] History of lithotripsy History of tonsillectomy [place] teeth removed Family History Mother Scleroderma Lupus Father Coronary heart disease Brother Fatty liver Aunt Cancer unspecified Grandfather (Paternal) Heart disease Grandfather (Maternal) Lung disease Grandmother (Paternal) Stroke Grandmother (Maternal) Family history of diabetes mellitus Social History Smoking Status: Never smoker Number of Years Since Quit: 10; Second Hand Exposure: Yes (IN THE PAST); Hx Alcohol Use: No Hx Substance Use: No Preferred Language: Tunisian Communication Ability: Effective Visual Impairment: No Limitations Inspector Barrel Required: No Beliefs That Will Affect Care: None marital status: Current Living Situation: Alone Feels Safe at Home: Yes Safety Concerns: Feels Safe At This Time Assistive Devices: Glasses Review of Systems Review of Systems: All systems reviewed & are unremarkable except as noted in HPI & below Physical Exam Constitutional: WD/WN, vitals as above well groomed, cooperative and comfortable Eyes: PERRL, conjunctivae normal, anicteric sclerae + scleral abnormality (icteric sclera) ENMT: external ear and nose normal, oropharynx normal Respiratory: normal respiratory effort, lungs clear to auscultation Cardiovascular: RRR, no murmur, no edema Gastrointestinal (Abdomen): normal bowel sounds, soft, nontender, no hepatosplenomegaly Lower midline incision w packing on wound, no sign of erythema, warmth or tenderness Skin: no rashes, warm and dry + jaundice Neurologic: Motor/Sensory: no asterixis Psychiatric: A+Ox3, euthymic affect Lymphatic: no lymphedema Results & Data ([facility]) Vital Signs (Past 12 Hours) Vital Signs Temp Pulse Pulse Resp BP BP Pulse Ox 10/02/20 07:22 36.6 C 69 19 172/74 H 97 10/01/20 23:03 36.6 C 69 16 153/71 H 93
[2020-10-02 12:25] LABS: Hepatitis B Surface Antigen Neg (Neg)
[2020-10-02 13:00] LABS: Hepatitis C IgG 13Yrs+Old_Rflx Neg (Neg)
--- NOTE | 2020-10-02 13:34 | Magnetic Resonance Report ---
MRCP CLINICAL HISTORY: Jaundice. COMPARISON STUDY: Abdominal CT dated 10/01/2020. TECHNIQUE: Abdominal MRCP is performed utilizing various T2-weighted sequences in the axial and coron al planes. 3-D reformats are created and assessed. IV contrast was not administered for this examinat ion. FINDINGS: The gallbladder is filled with numerous stones. There is no MRI evidence of acute cholecystitis. Ther e is no intra or extrahepatic biliary ductal dilatation. The common bile duct is normal in caliber, m easuring up to 5.5 mm diameter. No intraluminal filling defects are seen to suggest choledocholithias is. The pancreatic duct is normal in caliber. The liver is enlarged, measuring 21.3 cm in length. Mild nodularity of the hepatic surface contour in dicates early change of cirrhosis. The spleen is markedly enlarged measuring 19 cm in length. Numerou s foci of susceptibility artifact in the upper abdomen are related to surgical clips. The adrenal gla nds are grossly normal. Foci of parenchymal scarring are noted in the right kidney. There is no hydro nephrosis. The pancreas is atrophic and grossly unremarkable. The abdominal aorta is normal in calibe r. There is no abdominal ascites. There is evidence of previous ventral hernia repair. No pleural eff usion is seen. The bony structures are intact as imaged. IMPRESSION: 1. Cholelithiasis without MRI evidence of acute cholecystitis. 2. There is no intra or extrahepatic biliary ductal dilatation. 3. The liver is enlarged and demonstrates early changes of cirrhosis. 4. Marked splenomegaly. Electronically signed by: Freddie Mae M.D. 10/02/2020 1:32 PM
[2020-10-02] MEDS ORDERED: ERTAPENEM SODIUM 1,000 MG in SODIUM CHLORIDE 0.9% 50 ML IV SCH (20:00)
[2020-10-03] MEDS: SERTRALINE HCL 100 MG TABLET PO SCH (08:36)
[2020-10-03] MEDS: PANTOprazole 40 MG TAB PO SCH (08:36)
[2020-10-03] MEDS: SOTALOL HCL 80 MG TAB PO SCH (08:36)
[2020-10-03] MEDS: FOLIC ACID 1 MG TAB PO SCH (08:37)
[2020-10-03] MEDS: LORazepam 0.5 MG TAB PO SCH (08:44)
--- NOTE | 2020-10-03 10:13 | Gastroenterology Progress Note ---
Date of Service October 03, 2020 Assessment & Plan (1) Jaundice: (2) Abdominal pain: (3) Diarrhea: (4) Complicated UTI (urinary tract infection): Pt is a 65 y/o female presented w acute jaundice, nausea, abd pain, diarrhea symptoms. Hx of chronic UTI w current urine cx growing GNB (hx of ESBL ecoli), and recently dx w L ovarian ca s/p total hysterectomy & appendectomy [address] abd/pelvis w signs of early cirrhosis changes in liver. Previous liver dz workup w/o signs of AIH, HFE DNA negative, HCV negative. - Obtain MRCP to r/o biliary obstruction (pt has MR conditional pacemaker) -> cholelithiasis and early changes of cirrhosis noted but no signs of biliary ductal dilation, filling defect - F/U acute hepatitis panel - Cdiff negative, obtain stool cx - UTI management per primary team - Trend LFTs (labs pending this AM) Admission and Anticipated Discharge Date Admission Date: October 01, 2020 Supervising Physician Co-Signing Physician Notes I have seen and examined the patient with TAWANNA Amos whose note reflects our findings and plan. Follow LFTs and remainder of pending labs. Urine mgt per primary team. Subjective Pt denies having abd pain, n/v. No BM overnight. Review of Systems Review of Systems: All systems reviewed & are unremarkable except as noted in HPI & below Physical Exam Constitutional: WD/WN, vitals as above well groomed, cooperative and comfortable Eyes: PERRL, conjunctivae normal, anicteric sclerae + scleral abnormality (icteric sclera) ENMT: external ear and nose normal, oropharynx normal Respiratory: normal respiratory effort, lungs clear to auscultation Cardiovascular: RRR, no murmur, no edema Gastrointestinal (Abdomen): normal bowel sounds, soft, nontender, no hepatosplenomegaly Skin: no rashes, warm and dry + jaundice Neurologic: Motor/Sensory: no asterixis Psychiatric: A+Ox3, euthymic affect Lymphatic: no lymphedema Results & Data ([facility]) Vital Signs (Past 12 Hours) Vital Signs Temp Pulse Resp BP Pulse Ox 10/03/20 07:30 36.5 C 64 18 146/79 H 91 10/02/20 23:21 36.4 C L 63 16 146/79 H 92
[2020-10-03 11:11] LABS: Hepatitis A Antibody IgM NON-REACTIVE (NON-REACTIVE); Hepatitis B Core Antibody IgM NON-REACTIVE (NON-REACTIVE)
[2020-10-03 11:22] LABS: Albumin Globulin Ratio 0.7 (0.9-2); BUN Creatinine Ratio 12.9 (10-20); Bilirubin,Total 5.1 mg/dl (0.2-1); Calcium 9.2 mg/dl (8.5-10.1); Creatinine Clr Calc Pharmacy 72.9 ml/min; Est GFR (African American) 74.7; Est GFR (Non-African American) 64.4; Globulin 4.6 gm/dl (2.5-4.0); Potassium 4.5 mmol/L (3.5-5.1); Total Protein 7.6 gm/dl (6.4-8.2)
--- NOTE | 2020-10-03 12:33 | Surgery Consultation ---
Date of Consultation October 03, 2020 Assessment & Plan (1) History of hysterectomy with bilateral oophorectomy: This is a 65y F who is recently s/p exploratory laparotomy, hysterectomy, b/l salpingo-oophorectomy, and appendectomy at [facility] on 09/04/20. Surgery was consulted for concern for wound dehiscence. Patient reports wound has been worsening over some time now. She was seen at post-op by [facility] who noted no apparent concerns. Today on examination patient's inferior portion of the wound is open at the skin and the fascia is intact. Wound bed is clean with mild leni-erythema with no significant drainage. There is no concern for infection or wound dehiscence at the level of the fascia. Wound care has seen the patient and recommended dressings with aquacel gel and optifoam. Agree with current wound care management. There is no indication for surgical intervention at this time. The wound will heal over time by secondary intention. She can follow up with her surgeon as previously scheduled on 10/17/20 as well as wound care as outpatient if wishes. Can continue current wound care in the interim. She may benefit from home nursing to help assist with dressing changes. We will sign off, but please call with any questions/concerns. History of Present Illness Attending Physician: Kwadwo Sierra MD History of Present Illness This is a 65y F who is recently s/p exploratory laparotomy, hysterectomy, b/l salpingo-oophorectomy, and appendectomy at [facility] on 09/04/20 who presented to the [facility] ED on 10/01/20 with abdominal pain, nausea/vomiting. Since admission patient was found to have a UTI and concern for cirrhosis on imaging/Labwork. She is being managed by the hospitalists with GI consultation. Surgery was consulted for concern for wound dehiscence. Patient is concerned the bottom portion of her wound is open and has not been healing well, of which she believes is worsening. She did have postoperative follow up at [facility] and no acute concerns were noted. She is scheduled to see them again this upcoming 10/17. Allergies Allergy/AdvReac Type Severity Reaction Status Date / Time levofloxacin Allergy Intermediate LE Verified 07/27/20 09:47 swelling and blistering tramadol Allergy Mild Rash Verified 07/27/20 09:47 clindamycin AdvReac Intermediate PT Verified 07/27/20 09:47 CONTRACTED C-DIFF adhesive AdvReac Mild SKIN Verified 07/27/20 09:47 BLISTERS SOME TIMES shellfish derived AdvReac Mild NAUSEA,DIARRHEA, Verified 07/27/20 09:47 VOMITING Home Medications Medication Instructions Recorded Confirmed Type docusate sodium [Colace] 100 mg PO BID PRN 10/18/18 10/01/20 History lorazepam 0.5 mg PO BID 10/18/18 10/01/20 History sertraline [Zoloft] 100 mg PO QAM 10/18/18 10/01/20 History cyclobenzaprine 5 mg PO BID PRN 08/25/19 10/01/20 History potassium citrate 15 mEq (1,620 15 meq PO BID #180 tab 11/21/19 10/01/20 Rx mg) tablet,extended release naproxen sodium 220 mg tablet 220 mg PO DIRECTED PRN 04/12/20 10/01/20 History omeprazole 20 mg capsule,delayed 20 mg PO BID 04/12/20 10/01/20 History release cholecalciferol (vitamin D3) 50 2,000 units PO QAM #90 tab 04/16/20 10/01/20 Rx mcg (2,000 unit) tablet folic acid 1 mg PO QAM 05/08/20 10/01/20 History fosfomycin tromethamine [Monurol] 3 g PO 2XWK 10/01/20 10/01/20 History hydrochlorothiazide 25 mg PO QAM 10/01/20 10/01/20 History sotalol 80 mg PO BID 10/01/20 10/01/20 History Patient History Medical History Anemia Anxiety and depression CKD (chronic kidney disease), stage III Degenerative disc disease History of blood transfusion 2015 History of kidney stones History of recurrent UTI (urinary tract infection) 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 HTN (hypertension) On home oxygen therapy 2L/MIN NC PRN SOB Osteoarthritis Pacemaker IMPLANTED APRIL 2020 FOR A-FIB (FOLLOWS WITH DR. WELSH) Restless leg syndrome Spinal stenosis HX Spinal stenosis of lumbar region Urinary tract infection "THINKS I HAVE ONE NOW" Surgical History (Updated 10/03/20 @ 12:17 by Kierra Harding PA-C) Family history of reaction to anesthesia MOTHER-NAUSEA H/O arthroscopy of knee H/O cystoscopy H/O gastric bypass "1980, reversed in same year" History of arthroscopy LEFT KNEE History of colonoscopy History of esophagogastroduodenoscopy (EGD) History of herniorrhaphy VENTRAL HERNIA REPAIR= 04/27/17= GRADE VIEW 2, CLEMENTE#2, ETT 7.0 AT [facility] History of lithotripsy History of tonsillectomy [place] teeth removed Family History Mother Scleroderma Lupus Father Coronary heart disease Brother Fatty liver Aunt Cancer unspecified Grandfather (Paternal) Heart disease Grandfather (Maternal) Lung disease Grandmother (Paternal) Stroke Grandmother (Maternal) Family history of diabetes mellitus Social History Smoking Status: Never smoker Number of Years Since Quit: 10; Second Hand Exposure: Yes (IN THE PAST); Hx Alcohol Use: No Hx Substance Use: No Preferred Language: [place] Communication Ability: Effective Visual Impairment: No Limitations Orthotist/Prosthetist Required: No Beliefs That Will Affect Care: None marital status: Current Living Situation: Alone Feels Safe at Home: Yes Safety Concerns: Feels Safe At This Time Assistive Devices: Glasses Review of Systems Gastrointestinal: surgical wound opening, worsening per pt Physical Exam Physical Exam: awake/alert Respiratory: normal respiratory effort Gastrointestinal (Abdomen): Percussion/Palpation: abdomen soft inferior portion of the wound open at the skin, fascia is intact, wound bed clean. Superior portion clean and healing without sign of infection Results & Data ([facility]) Vital Signs (Past 12 Hours) Vital Signs Temp Pulse Resp BP Pulse Ox 10/03/20 07:30 36.5 C 64 18 146/[address] SCAN OF THE ABDOMEN AND PELVIS WITH IV CONTRAST CLINICAL HISTORY: Nausea and vomiting. Jaundice. Diarrhea. COMPARISON STUDY: Abdominal CT dated 06/04/2020. TECHNIQUE: Following the IV administration of 94 cc of Optiray 320, CT scan of the abdomen and pelvis is performed from the lung bases to the proximal femora. Images are reviewed in the axial, sagittal, and coronal planes. IV contrast was administered without complication. A dose lowering technique was utilized adhering to the principles of ALARA. CT DOSE: 1382.56 mGy.cm FINDINGS: Lung bases: The heart is top normal in size and without pericardial effusion. Pacemaker leads are noted. The lung bases are clear noting bibasilar scarring/atelectasis. Liver: The contrast-enhanced liver is enlarged, measuring 22.4 cm in length. Mild nodularity of the hepatic surface contour suggests early change of cirrhosis. There is no intrahepatic biliary ductal dilatation. The hepatic veins and portal veins are patent. Gallbladder: Unremarkable. Spleen: The spleen is enlarged, measuring 19.0 cm in length. Pancreas: Atrophic and grossly unremarkable. Adrenal glands: Unremarkable. Kidneys: The contrast enhanced kidneys demonstrate cortical atrophy and are without hydronephrosis. The kidneys enhance symmetrically. Foci of cortical scarring are seen in the right upper pole. Scattered subcentimeter cortical hypodensities likely represent cysts but are too small for definitive characterization. Numerous nonobstructing calculi are seen in both kidneys. Small foci of gas are noted within the right renal collecting system. Abdominal vasculature: The abdominal aorta is normal in course and caliber. Stomach and bowel: Postoperative change is noted in the stomach. No bowel obstruction is seen. Moderate fecal retention is noted in the colon. There is mild colonic diverticulosis without CT evidence of acute diverticulitis. The appendix is not identified and reported surgically absent. Peritoneum: There is no intraperitoneal free air or abdominal ascites. There is evidence of previous ventral hernia repair. A midline surgical incision is noted in the pelvis with induration of the ventral abdominal pannus. Lymphadenopathy: None. Pelvic viscera: Foci of gas are noted in the bladder lumen. The bladder is otherwise normal in appearance. The uterus is surgically absent. No adnexal lesion is seen. Skeletal structures: The skeletal structures are osteopenic. Moderate lumbosacral spondylosis is observed. No lytic or blastic lesions are seen. IMPRESSION: 1. Foci of gas within the bladder lumen and the right renal collecting system are nonspecific and may be related to instrumentation. Correlate with urinalysis for evidence of urinary tract infection. 2. There are numerous bilateral nonobstructing renal calculi. No ureteral stone or hydronephrosis is seen. 3. The liver is enlarged and heterogeneous. Nodularity of the surface contour indicates cirrhotic change. 4. Marked splenomegaly. 5. Mild colonic diverticulosis without CT evidence of acute diverticulitis. 6. A midline incision is noted in the pelvis with induration of the pelvic pannus. Correlate with the patient's surgical history and clinically for evide nce of cellulitis. 7. Additional findings as above. ACT 112: Negative or not required by law. PG Care Time/CCT Total # of Minutes Spent Total Time Spent with Patient: Total time spent is greater than 50% in coordination of care (as documented) at patient's floor/unit and/or counseling patient: Coding Level of Care Code 54960 Initial Inpt Care Lvl 1 Diagnoses History of hysterectomy with bilateral oophorectomy Z90.710; Z90.722
--- NOTE | 2020-10-03 13:55 | Hospitalist Progress Note ---
Date of Service October 03, 2020 Assessment & Plan (1) Abdominal pain: Abdominal pain Transaminitis Cholelithiasis History of hysterectomy with bilateral oophorectomy because of Ovarian Cancer -10/02/2020 MRCP 1. Cholelithiasis without MRI evidence of acute cholecystitis. 2. There is no intra or extrahepatic biliary ductal dilatation. 3. The liver is enlarged and demonstrates early changes of cirrhosis. 4. Marked splenomegaly. -C.difficile negative -10/03/2020: hospitalist discussed with gastroenterology team and they recommend outpatient monitoring the liver function enzymes -As per general surgery consultation 10/03/2020 "This is a 65y F who is recently s/p exploratory laparotomy, hysterectomy, b/l salpingo-oophorectomy, and appendectomy at [facility] on 09/04/20. Surgery was consulted for concern for wound dehiscence. Patient reports wound has been worsening over some time now. She was seen at post-op by [facility] who noted no apparent concerns. Today on examination patient's inferior portion of the wound is open at the skin and the fascia is intact. Wound bed is clean with mild leni-erythema with no significant drainage. There is no concern for infection or wound dehiscence at the level of the fascia. Wound care has seen the patient and recommended dressings with aquacel gel and optifoam. Agree with current wound care management. There is no indication for surgical intervention at this time. The wound will heal over time by secondary intention. She can follow up with her surgeon as previously scheduled on 10/17/20 as well as wound care as outpatient if wishes." -patient does not appear jaundice on exam and no acute distress from abdomen of other reasons. She was seen by wound care team who helped change her dressing but the assessment from them that wound vacuum is not needed at this time. Patient was assessed by general surgery consult and no acute surgical intervention. Patient wishes for hospital discharge on 10/03/2020. She is deferring plans for chemoport as outpatient at this time in regards to future chemotherapy plans with oncology Dr. Dmitriy Pyle for the ovarian cancer Complicated UTI (urinary tract infection) -was started on Ertapenem while in the hospital, discharge pharmacy [address], [place] [address] of Bactrim twice a a day for 8 days to complete antibiotic treatment for Klebsiella in the urine. Patient should avoid serum potassium supplements at home until the bactrim antibiotic is completed Hypertension -resume HCTZ as outpatient Chronic Anemia -Hgb 8.6, stable History of Sick Sinus Syndrome, has pacemaker Disposition discharge with [facility] home health services discharge pharmacy [address], [place], [place] [id number] of Bactrim twice a a day for 8 days to complete antibiotic treatment for Klebsiella in the urine upcoming appointments 10/09/2020 11:00 AM Provider Sabra Whatley DO Department Family [facility] 10/10/2020 3:10 PM Provider Lab [facility] Department Laboratory [facility] 10/10/2020 3:45 PM Provider Chair 11 Hem Onc [facility] Department Hematology/Oncology Treatment, [place] 10/15/2020 8:45 AM Provider [facility] Department Cardiology, [facility] 10/17/2020 10:00 AM Provider Delores Mosley PA-C Department Gynecology/Oncology, [address] 10/17/2020 3:10 PM Provider Lab [facility] Department Laboratory [facility] 10/17/2020 3:45 PM Provider Chair 11 Hem Onc [facility] Department Hematology/Oncology Treatment, [place] Admission and Anticipated Discharge Date Admission Date: October 01, 2020 Subjective patient does not appear jaundice on exam and no acute distress from abdomen of other reasons. She was seen by wound care team who helped change her dressing but the assessment from them that wound vacuum is not needed at this time. Patient was assessed by general surgery consult and no acute surgical intervention. Patient wishes for hospital discharge on 10/03/2020. She is deferring plans for chemoport as outpatient at this time in regards to future chemotherapy plans with oncology Dr. Dmitriy Pyle for the ovarian cancer she denies current GI symptoms. no dizziness. no lightheadedness. no dizziness. no chest pain. she is ambulatory and making urine. she denies other symptoms on review of systems Review of Systems Review of Systems: All systems reviewed & are unremarkable except as noted in Subjective Physical Exam Constitutional: comfortable Eyes: PERRL, conjunctivae normal, anicteric sclerae EOM intact bilaterally ENMT: external ear and nose normal, oropharynx normal Neck: normal visual inspection Respiratory: normal respiratory effort, lungs clear to auscultation Cardiovascular: Rate/Rhythm: regular rate Gastrointestinal (Abdomen): Percussion/Palpation: abdomen soft Musculoskeletal: Head/Neck/Chest: normocephalic Skin: Trauma: + evidence of skin trauma (inferior portion of the abdomen wound open at the skin) Neurologic: PERRL, EOMI, accommodation nl, no face palsy, no dysarthria moves all extremities Psychiatric: A+Ox3, euthymic affect Results & Data Results & Data ([facility]) Vital Signs (Past 12 Hours) Vital Signs Temp Pulse Resp BP Pulse Ox 10/03/20 07:30 36.5 C 64 18 146/79 H 91
--- NOTE | 2020-10-03 14:08 | Discharge Summary ---
Date of Service October 03, 2020 Admission HPI Per Admitting Provider History obtained from patient, family, and records. Medical history significant for SSS sp PPM not on anticoagulation secondary to GI bleed, ovarian cancer status post surgery, chronic anemia (baseline hemoglobin 8-9), chronic hepatosplenomegaly, recurrent ESBL E. coli UTI, history of C. difficile secondary to clindamycin, past tobacco abuse. Patient [place] [facility] [place] last December 2018 for evaluation of incidental findings of hepatosplenomegaly, ascites on CAT scan. Fatty liver disease and hemochromatosis as possibilities as per documentation. Cirrhosis unlikely given CAT scan findings and absence of signs and symptoms of decompensated liver disease at time of consultation as per note. Last confinement August 2019 for new onset A. fib/atrial flutter with RVR. Anticoagulation subsequently discontinued secondary to GI bleed, recurrent anemia. Patient eventually underwent PPM implantation for sick sinus syndrome last April 2020. Last August 2020, patient underwent elective gynecologic surgery for left ovarian cancer. Slow healing abdominal incisional wound as per patient. Patient healing well on outpatient outpatient Gynecology follow-up documentation from 2 weeks ago. Cytotoxic chemotherapy recommended by tumor board. Few days history of achy abdominal discomfort with nausea vomiting diarrhea symptoms. Increased urinary frequency. No fever, no chills. No chest pain, no S OB. Patient's brother thought patient looked yellow. No inordinate Tylenol or recent alcohol intake. Abnormal LFTs noted outpatient. ALT 54, AST 60, alk phos 198, albumin 3.6, total bilirubin 7.4 Sent to the ER for evaluation. Given Ceftriaxone for UTI. 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 Principal Diagnosis Abdominal pain Transaminitis Cholelithiasis History of hysterectomy with bilateral oophorectomy because of Ovarian Cancer Complicated UTI (urinary tract infection) Hypertension Chronic Anemia Discharge Exam Constitutional comfortable Eyes PERRL, conjunctivae normal, anicteric sclerae EOM intact bilaterally ENMT external ear and nose normal, oropharynx normal Neck normal visual inspection Respiratory normal respiratory effort, lungs clear to auscultation Cardiovascular Rate/Rhythm: regular rate Gastrointestinal (Abdomen) Percussion/Palpation: abdomen soft Musculoskeletal Head/Neck/Chest: normocephalic Skin Trauma: + evidence of skin trauma (inferior portion of the abdomen wound open at the skin) Neurologic PERRL, EOMI, accommodation nl, no face palsy, no dysarthria moves all extremities Psychiatric A+Ox3, euthymic affect Discharge Data Allergies Allergy/AdvReac Type Severity Reaction Status Date / Time levofloxacin Allergy Intermediate LE Verified 07/27/20 09:47 swelling and blistering tramadol Allergy Mild Rash Verified 07/27/20 09:47 clindamycin AdvReac Intermediate PT Verified 07/27/20 09:47 CONTRACTED C-DIFF adhesive AdvReac Mild SKIN Verified 07/27/20 09:47 BLISTERS SOME TIMES shellfish derived AdvReac Mild NAUSEA,DIARRHEA, Verified 07/27/20 09:47 VOMITING Consultations 10/01/20 18:18 ED Decision to Admit Stat 10/02/20 06:48 Consult Gastroenterology Routine 10/02/20 10:44 Consult Wound Care Provider Routine 10/03/20 11:34 Consult General Surgery Routine Ordered Studies 10/01/20 15:20 CT abd pelvis IV con only Stat 10/02/20 09:27 MR MRCP Routine Hospital Course (1) Abdominal pain: Abdominal pain Transaminitis Cholelithiasis History of hysterectomy with bilateral oophorectomy because of Ovarian Cancer -10/02/2020 MRCP 1. Cholelithiasis without MRI evidence of acute cholecystitis. 2. There is no intra or extrahepatic biliary ductal dilatation. 3. The liver is enlarged and demonstrates early changes of cirrhosis. 4. Marked splenomegaly. -C.difficile negative -10/03/2020: hospitalist discussed with gastroenterology team and they recommend outpatient monitoring the liver function enzymes -As per general surgery consultation 10/03/2020 "This is a 65y F who is recently s/p exploratory laparotomy, hysterectomy, b/l salpingo-oophorectomy, and appendectomy at [facility] on 09/04/20. Surgery was consulted for concern for wound dehiscence. Patient reports wound has been worsening over some time now. She was seen at post-op by [facility] who noted no apparent concerns. Today on examination patient's inferior portion of the wound is open at the skin and the fascia is intact. Wound bed is clean with mild leni-erythema with no significant drainage. There is no concern for infection or wound dehiscence at the level of the fascia. Wound care has seen the patient and recommended dressings with aquacel gel and optifoam. Agree with current wound care management. There is no indication for surgical intervention at this time. The wound will heal over time by secondary intention. She can follow up with her surgeon as previously scheduled on 10/17/20 as well as wound care as outpatient if wishes." -patient does not appear jaundice on exam and no acute distress from abdomen of other reasons. She was seen by wound care team who helped change her dressing but the assessment from them that wound vacuum is not needed at this time. Patient was assessed by general surgery consult and no acute surgical intervention. Patient wishes for hospital discharge on 10/03/2020. She is deferring plans for chemoport as outpatient at this time in regards to future chemotherapy plans with oncology Dr. Dmitriy Pyle for the ovarian cancer Complicated UTI (urinary tract infection) -was started on Ertapenem while in the hospital, discharge [address] [place] [id number] of Bactrim twice a a day for 8 days to complete antibiotic treatment for Klebsiella in the urine. Patient should avoid serum potassium supplements at home until the bactrim antibiotic is completed Hypertension -resume HCTZ as outpatient Chronic Anemia -Hgb 8.6, stable History of Sick Sinus Syndrome, has pacemaker Disposition discharge with [facility] home health services discharge pharmacy [address] [place] [id number] of Bactrim twice a a day for 8 days to complete antibiotic treatment for Klebsiella in the urine upcoming appointments 10/09/2020 11:00 AM Provider Sabra Whatley DO Department [facility] 10/10/2020 3:10 PM Provider Lab [facility] Department Laboratory [facility] 10/10/2020 3:45 PM Provider Chair 11 Hem Onc [facility] Department Hematology/Oncology Treatment, [place] 10/15/2020 8:45 AM Provider Han Candelario [facility] Department Cardiology, [facility] 10/17/2020 10:00 AM Provider Delores Mosley PA-C Department Gynecology/Oncology, [place] 10/17/2020 3:10 PM Provider Lab [facility] Department Laboratory [facility] 10/17/2020 3:45 PM Provider Chair 11 Hem Onc [facility] Total Time Total Time Spent Total Time Spent (In Minutes): 40 minutes Total Time Includes: Examination of the Patient, Discharge Planning, Medication Reconciliation and Communication With Other Providers Discharge Plan Discharge Items Patient Disposition: Home - Home Health Services Reason For Visit: COMP UTI Discharge Diagnosis: Abdominal pain Transaminitis Cholelithiasis History of hysterectomy with bilateral oophorectomy because of Ovarian Cancer Complicated UTI (urinary tract infection) Hypertension Chronic Anemia Condition on Discharge: Good Activity: Per Instructions section Non-emergency contact: Primary Care Provider Call non-emergency contact if: you have any medication questions Follow-up/Referrals: Sabra Whatley DO [Primary Care Provider] - Diet: Heart Healthy and Lactose Intolerant Dominic Attending Provider Instructions: discharge with [facility] home health services discharge pharmacy [address] [place] [id number] of Bactrim twice a a day for 8 days to complete antibiotic treatment for Klebsiella in the urine. Patient should avoid serum potassium supplements at home until the bactrim antibiotic is completed upcoming appointments 10/09/2020 11:00 AM Provider Sabra Whatley DO Department [facility] 10/10/2020 3:10 PM Provider Lab [facility] Department Laboratory [facility] 10/10/2020 3:45 PM Provider Chair 11 Hem Onc [facility] 10/15/2020 8:45 AM Provider [facility] Department Cardiology, [facility] 10/17/2020 10:00 AM Provider Delores Mosley PA-C Department Gynecology/Oncology, [place] 10/17/2020 3:10 PM Provider Lab [facility] [place] Department Laboratory [facility] 10/17/2020 3:45 PM Provider Chair 11 Hem Onc [facility] Department [facility] Dominic [employer] Provider Instructions: As per general surgery consultation 10/03/2020 "This is a 65y F who is recently s/p exploratory laparotomy, hysterectomy, b/l salpingo-oophorectomy, and appendectomy at [facility] on 09/04/20. Surgery was consulted for concern for wound dehiscence. Patient reports wound has been worsening over some time now. She was seen at post-op by [facility] who noted no apparent concerns. Today on examination patient's inferior portion of the wound is open at the skin and the fascia is intact. Wound bed is clean with mild leni-erythema with no significant drainage. There is no concern for infection or wound dehiscence at the level of the fascia. Wound care has seen the patient and recommended dressings with aquacel gel and optifoam. Agree with current wound care management. There is no indication for surgical intervention at this time. The wound will heal over time by secondary intention. She can follow up with her surgeon as previously scheduled on 10/17/20 as well as wound care as outpatient if wishes." 10/02/2020 MRCP 1. Cholelithiasis without MRI evidence of acute cholecystitis. 2. There is no intra or extrahepatic biliary ductal dilatation. 3. The liver is enlarged and demonstrates early changes of cirrhosis. 4. Marked splenomegaly. 10/03/2020: hospitalist discussed with gastroenterology team and they recommend outpatient monitoring the liver function enzymes Pending Studies at Discharge: No Stand-Alone Forms: [facility] [email or web address], Smoking Cessation Medications and DC Order Prescriptions: New sulfamethoxazole-trimethoprim 800-160 mg Tablet 1 tab PO Q12 8 Days Qty: 16 RF: 0 Continued cholecalciferol (vitamin D3) 50 mcg (2,000 unit) tablet 2,000 units PO QAM Qty: 90 RF: 3 omeprazole 20 mg capsule,delayed release(DR/EC) 20 mg PO BID RF: 0 naproxen sodium [Aleve] 220 mg tablet 220 mg PO DIRECTED PRN (Reason: Pain) RF: 0 sertraline [Zoloft] 100 mg Tablet 100 mg PO QAM RF: 0 lorazepam 0.5 mg Tablet 0.5 mg PO BID RF: 0 docusate sodium [Colace] 100 mg Capsule 100 mg PO BID PRN (Reason: Constipation) RF: 0 folic acid 1 mg Tablet 1 mg PO QAM RF: 0 fosfomycin tromethamine [Monurol] 3 gram packet 3 g PO 2XWK RF: 0 sotalol 80 mg tablet 80 mg PO BID RF: 0 hydrochlorothiazide 25 mg tablet 25 mg PO QAM RF: 0 cyclobenzaprine 5 mg tablet 5 mg PO BID PRN (Reason: Muscle Spasm) RF: 0 Discontinued potassium citrate 15 mEq tablet extended release 15 meq PO BID Qty: 180 RF: 3 Discharge Orders: Discharge Order (Routine); Ordered 10/03/20 Ordered By: Kwadwo Sierra Admission Data Admit Date/Time: 10/01/20 20:22 Attending Provider: Kwadwo Sierra Admit Provider: Pavel Hall Primary Care Provider: Sabra Whatley Other Providers: Jose Dixon ; Chau Emmanuel ; Ingrid Salvador ; Bry Adams ; Mary Beth Marr ; Jus Allen ; Kamla Argueta ; Haredep Nicolas ; Bhavesh Mckinney ; Armand Ramírez ; Korin Rivera ; Susan Moon ; Yuridia Martin ; Dee Dee Allen ; Sivakumar Reyes ; Jayme Jordan ; Mauro Fink ; Susana You ; Angie Argueta ; Jason Vidal ; Harley Martinez ; Tiffanie Carrera ; Ingrid Davis ; Sheng Mccoy Jr ; Felecia Mendenhall ; Yoel Moya ; Dee Dee Maradaiga ; [facility]
--- NOTE | 2020-10-03 14:38 | Hospitalist Progress Note ---
Date of Service October 02, 2020 Assessment & Plan (1) Abdominal pain: Abdominal pain Transaminitis History of hysterectomy with bilateral oophorectomy because of Ovarian Cancer Hx chronic hepatosplenomegaly on imaging since 2019 Possible fatty liver disease GI consulted, recommend MRCP, Hepatitis panel Trend LFTs Nonhealed surg. site Wound care consulted for nonhealed surgical site - considering wound vac Diarrhea - c. diff test ordered Complicated UTI (urinary tract infection) -was started on Ertapenem while in the hospital d/t hx of ESBL UTI -follow urine cultx Hypertension -resume HCTZ as outpatient Chronic Anemia -Hgb 8.6, stable History of Sick Sinus Syndrome, has pacemaker -not on anticoagulation secondary to GI bleed Admission and Anticipated Discharge Date Admission Date: October 01, 2020 Subjective Pt is laying in bed in NAD. Currently says she feels better, previously had nausea, diarrhea, now improved. Seen by wound care and considering wound vac. GI consulted, pt went for MRCP. Currently denies any fever, chills, chest pain, abd. pain. Also denies dysuria. She is very worried about jaundice and liver cirrhosis. Review of Systems Review of Systems: All systems reviewed & are unremarkable except as noted in HPI & below Constitutional: no fever and no chills Respiratory: no cough and no dyspnea Cardiovascular: no chest pain and no palpitations Gastrointestinal: no abdominal pain and no vomiting Physical Exam Physical Exam: GENERAL: obese female sitting up in bed, slightly anxious, but in no acute distress SKIN: Jaundiced, warm, dry HEENT: NC/AT, pale palpebral conjunctivae, no ptosis NECK : Supple, short neck, no tenderness CHEST : CTA, no tenderness, no wheezing, rhonchi HEART : RRR, no obvious murmurs ABDOMEN: Some distention, obese, + bowel sounds, dressings over suprapubic area - surg. site EXTREMITIES : Minimal LE swelling, no LE tenderness, moves extremities spontaneously NEUROLOGIC : alert and oriented x3, speech fluent, no facial asymmetry, moves extremities Results & Data Results & Data ([facility]) Vital Signs (Past 12 Hours) Vital Signs Temp Pulse Resp BP Pulse Ox 10/03/20 07:30 36.5 C 64 18 146/79 H 91
--- NOTE | 2020-10-03 15:07 | Wound Consultation ---
Date of Consultation October 03, 2020 Assessment & Plan (1) History of hysterectomy with bilateral oophorectomy: 65-year-old female with surgical wound secondary hysterectomy and bilateral oophorectomy. No debridement was required. Per WOCN wound has significantly dehisced since yesterday. Wound will be dressed with Aquacel Ag and an OPTi foam. Would recommend surgical evaluation. We will continue to follow along. Thank you for limited chest for the care of this patient. Please call with any questions. History of Present Illness Reason for Consultation: Open abdominal wound Attending Physician: Kwadwo Sierra MD History of Present Illness This is a 65-year-old female with a history of ovarian cancer, sick sinus syndrome status post pacemaker not on anticoagulation secondary to GI bleed, chronic anemia, chronic hepatosplenomegaly, elevated liver enzymes and ovarian cancer who was admitted with abdominal pain. She was found to have a UTI and was treated with ceftriaxone. While here she was noted that her abdominal wound was open. Patient reports that she had hysterectomy and bilateral nephrectomy secondary to ovarian cancer on September 04. There is mention in the notes of her potentially starting chemotherapy. Patient reports at this time she is canceled. Allergies Allergy/AdvReac Type Severity Reaction Status Date / Time levofloxacin Allergy Intermediate LE Verified 07/27/20 09:47 swelling and blistering tramadol Allergy Mild Rash Verified 07/27/20 09:47 clindamycin AdvReac Intermediate PT Verified 07/27/20 09:47 CONTRACTED C-DIFF adhesive AdvReac Mild SKIN Verified 07/27/20 09:47 BLISTERS SOME TIMES shellfish derived AdvReac Mild NAUSEA,DIARRHEA, Verified 07/27/20 09:47 VOMITING Home Medications Medication Instructions Recorded Confirmed Type docusate sodium [Colace] 100 mg PO BID PRN 10/18/18 10/01/20 History lorazepam 0.5 mg PO BID 10/18/18 10/01/20 History sertraline [Zoloft] 100 mg PO QAM 10/18/18 10/01/20 History cyclobenzaprine 5 mg PO BID PRN 08/25/19 10/01/20 History naproxen sodium 220 mg tablet 220 mg PO DIRECTED PRN 04/12/20 10/01/20 History omeprazole 20 mg capsule,delayed 20 mg PO BID 04/12/20 10/01/20 History release cholecalciferol (vitamin D3) 50 2,000 units PO QAM #90 tab 04/16/20 10/01/20 Rx mcg (2,000 unit) tablet folic acid 1 mg PO QAM 05/08/20 10/01/20 History fosfomycin tromethamine [Monurol] 3 g PO 2XWK 10/01/20 10/01/20 History hydrochlorothiazide 25 mg PO QAM 10/01/20 10/01/20 History sotalol 80 mg PO BID 10/01/20 10/01/20 History sulfamethoxazole-trimethoprim 1 tab PO Q12 8 Days #16 tab 10/03/20 Rx Patient History Medical History Anemia Anxiety and depression CKD (chronic kidney disease), stage III Degenerative disc disease History of blood transfusion 2015 History of kidney stones History of recurrent UTI (urinary tract infection) 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 HTN (hypertension) On home oxygen therapy 2L/MIN NC PRN SOB Osteoarthritis Pacemaker IMPLANTED APRIL 2020 FOR A-FIB (FOLLOWS WITH DR. WELSH) Restless leg syndrome Spinal stenosis HX Spinal stenosis of lumbar region Urinary tract infection "THINKS I HAVE ONE NOW" Surgical History (Updated 10/03/20 @ 12:17 by Kierra Harding PA-C) Family history of reaction to anesthesia MOTHER-NAUSEA H/O arthroscopy of knee H/O cystoscopy H/O gastric bypass "1980, reversed in same year" History of arthroscopy LEFT KNEE History of colonoscopy History of esophagogastroduodenoscopy (EGD) History of herniorrhaphy VENTRAL HERNIA REPAIR= 04/27/17= GRADE VIEW 2, CLEMENTE#2, ETT 7.0 AT [facility] History of lithotripsy History of tonsillectomy [place] teeth removed Family History Mother Scleroderma Lupus Father Coronary heart disease Brother Fatty liver Aunt Cancer unspecified Grandfather (Paternal) Heart disease Grandfather (Maternal) Lung disease Grandmother (Paternal) Stroke Grandmother (Maternal) Family history of diabetes mellitus Social History Smoking Status: Never smoker Number of Years Since Quit: 10; Second Hand Exposure: Yes (IN THE PAST); Hx Alcohol Use: No Hx Substance Use: No Preferred Language: Burkinan Communication Ability: Effective Visual Impairment: No Limitations Natural Resources Professor Required: No Beliefs That Will Affect Care: None marital status: Current Living Situation: Alone Feels Safe at Home: Yes Safety Concerns: Feels Safe At This Time Assistive Devices: Glasses Review of Systems Review of Systems: All systems reviewed & are unremarkable except as noted in HPI & below Physical Exam Physical Exam: Temp Pulse Resp BP Pulse Ox 36.5 C 64 18 146/79 H 91 10/03/20 07:30 10/03/20 07:30 10/03/20 07:30 10/03/20 07:30 10/03/20 07:30 Constitutional: WD/WN, vitals as above Eyes: + scleral abnormality ENMT: Ears: no hearing impairment Skin: Wound measuring as recorded in nursing documentation. Patient is seen with WOCN at bedside. WOCN saw patient yesterday and feels that the wound has further dehisced. Neurologic: awake; not confused Psychiatric: A+Ox3, euthymic affect Results & Data ([facility]) Vital Signs (Past 12 Hours) Vital Signs Temp Pulse Resp BP Pulse Ox 10/03/20 07:30 36.5 C 64 18 146/79 H 91 PG Care Time/CCT Total # of Minutes Spent Total Time Spent with Patient: Total time spent is greater than 50% in coordination of care (as documented) at patient's floor/unit and/or counseling patient: Coding Level of Care Code 54446 Inpt Consult Level 3 Diagnoses History of hysterectomy with bilateral oophorectomy Z90.710; Z90.722
[2020-10-03] MEDS ORDERED: SULFAMETHOXAZOLE/TRIMETHOPRIM DS 800/160MG TAB PO SCH (21:00)
== END 2020-10-03 16:54 | disposition home health service (06) | DRG 690 ==
LOC: ED 14:29 → SUATTDRO 20:22 → 3W 20:22

== ENCOUNTER 2020-11-28 15:31 | Inpatient (IN) ==
--- NOTE | 2020-11-28 15:41 | Emergency Department Note ---
Impression & Plan Acute hypoxemic respiratory failure, Hyperkalemia, Ovarian cancer ED Provider Note NAME: MICHELLE ARELLANO AGE: 65 SEX: F : 1955 ARRIVES VIA: Ambulance INFORMANT: Patient, ED PROVIDER(S): Sachin Vale MD Chief Complaint: Adverse reaction versus allergic reaction HPI: Patient does present from cancer clinic after receiving chemotherapy at which point the patient did have an adverse reaction requiring administration of Benadryl x2, Solu-Cortef and Solu-Medrol. Patient is requiring some oxygen as the patient was 84% on room air. Patient no prior history of any oxygen requirement. The patient does have a history of A. fib and flutter. Patient is receiving chemotherapy for recent diagnosis of ovarian cancer stage I and does follow with Dr. Marion. The patient reportedly had started her chemo and had some symptoms so they stopped this and then restarted the medication at a much slower rate. The patient did complete approximate three quarters of her chemotherapy at which point the patient had a lot of facial flushing and thus was referred to the emergency department. Patient states that she did have some shortness of breath but denied any chest pains, nausea or vomiting. Patient did have an a port placed by Dr. Fink on October 23. Patient is not on any anticoagulation therapy secondary to history of GI bleeding. ROS: See HPI for pertinent positives and negatives. A total of 10 systems were reviewed and otherwise negative. Past medical history: See below Surgical history: See below Social history: See below Physical Exam: GENERAL: Wearing a mask, nasal cannula in place. NAD, non-toxic. EYE EXAM: Normal conjunctiva. PERRL, no anisocoria and EOM's grossly intact w/o pain. NECK: Supple, no nuchal rigidity, no adenopathy, non-tender. No signs of meningismus. LUNGS: Clear to auscultation. Normal chest wall mechanics. Chest: Device in chest. HEART: NSR, no MRG. ABDOMEN: Abdomen soft, non-tender, normo-active bowel sounds, no masses, no rebound or guarding. BACK: No CVA TTP. SKIN: No rashes and no bruising. UPPER EXTREMITIES: Upper extremities are grossly normal. LOWER EXTREMITIES: Possible left greater than right lower extremity without obvious pitting edema erythema, calf pain. NEURO EXAM: A&O x3, cranial nerves II-XII grossly intact, normal speech, moves a ll 4 extremities on command w/o issue. Differential diagnoses: Reactive airway disease, pneumonia, pneumothorax, COPD, CHF, infections, cardiac ischemia, pulmonary embolism, musculoskeletal, gastroi ntestinal, as well as other pathologies. Course: Patient was seen and evaluated the bedside. Full history physical exam was performed. EKG: Indication: Shortness of breath Normal sinus rhythm, rate of 63, normal intervals, normal axis, no TWI. Imaging Studies: Radiology results as stated below per my review in the radiologist's interpretation: XR chest 1V portable HISTORY: 65 years-old Female Dyspnea acute shortness of breath COMPARISON: Chest radiograph 10/22/2020 TECHNIQUE: Portable AP view of the chest FINDINGS: Cardiac silhouette is upper limits of normal in size. Left subclavian pacer. Right subclavian [id number] catheter redemonstrated. No pneumothorax, large pleural effusion or lobar airspace consolidation. Chronic interstitial coarsening. Degenerative changes of the shoulders and spine. IMPRESSION: No acute process. ACT 112: Negative or not required by law. The above report was generated using voice recognition software. It may contain grammatical, syntax or spelling errors. Electronically signed by: Chas Luong M.D. 11/28/2020 4:04 PM Dictated: 11/28/20 1603Transcribed: 11/28/20 1603 CHEST CTA for PULMONARY ARTERIES CT DOSE: 774.79 mGy.cm HISTORY: Dyspnea TECHNIQUE: Multiaxial CT images of the chest were performed following the intravenous administration of contrast to evaluate the pulmonary arteries. Maximal intensity projection images were also obtained. A dose lowering technique was utilized adhering to the principles of ALARA. COMPARISON STUDY: Chest CTA 05/28/2018. FINDINGS: Normal caliber thoracic aorta with no evidence for dissection. Moderate calcified plaque within the left coronary arteries. The heart is mildly enlarged. No pleural or pericardial effusions. Pacemaker wires are noted. The spleen is partially visualized but appears enlarged. This remains unchanged. The spleen measures 18 cm in AP diameter. There is mild hepatic steatosis. Postoperative changes suggestive of prior gastric bypass. A right subclavian Port-A-Cath terminates in the SVC. Stable prominent left hilar lymph nodes. Therefore, these are likely benign. No mediastinal lymphadenopathy. No suspicious lytic or blastic osseous lesions. No pneumothorax. Mild diffuse bronchial wall thickening, unchanged. There are low lung volumes. There is re spiratory motion artifact. No significant change in the patchy groundglass densities and interstitial thickening seen throughout the lungs. There is associated mild air trapping, unchanged. This appears to be chronic. No new focal lung consolidations to suggest pneumonia. Respiratory motion artifact results in nondiagnostic evaluation of the some of the segmental and subsegmental pulmonary arteries. Otherwise, no definite filling defects within the pulmonary arteries to suggest pulmonary embolus. IMPRESSION: 1. No definite evidence for pulmonary embolus. 2. Stable splenomegaly. 3. Mild diffuse interstitial thickening, bronchial wall thickening, scattered patchy groundglass densities, and evidence for air trapping throughout the lungs. This is similar to the 2018 study and is therefore likely chronic. No new focal lung consolidations to suggest pneumonia. 4. Additional stable findings as described above. ACT 112: Negative or not required by law. Electronically signed by: Karthik Cantu M.D. 11/28/2020 5:30 PM Dictated: 11/28/201720Transcribed: 11/28/201720 Cardiac monitoring: An order was placed for continuous cardiac monitoring. The monitor shows a rate of 66 with sinus rhythm. MDM: Patient did present with concern for hypoxia during recent chemotherapy. The p atient has had a history of requiring oxygen in the past but this was not required after having a pacemaker placed per the patient. Patient did have blood work completed along with a chest x-ray CT angiography of the chest. The patient's chest x-ray is clear. EKG does not show any obvious arrhythmia. Blood work does show hyperkalemia with normal kidney function. The patient is on supplemental potassium. The patient's CT angiography of the chest does not show any obvious PE but has had some chronic changes which are not acute. Get in light of the patient's hypoxia I did speak with the on-call hospitalist and Ginger Argueta PA-C. The patient was admitted to Dr Tovar. I did state that patient does not have any calf pain she believes that her legs appear similar but she may have had some slight left greater than right lower extremity size but without any pain or numbness. Critical Care: I have personally spent 42 minutes of critical care time in direct management of this patient. This includes bedside care, interpretation of diagnostic studies, and testing, discussion with consultants, patient, and family members, and other require inpatient management activities. This 42 minutes is in excess of all separately billable procedures. Past Med/Surg History Medical History (Updated 11/29/20 @ 09:46 by Sachin Vale MD) Anemia S/p blood transfusion 05/2020 Hgb baseline 8-9 Anxiety and depression Atrial fibrillation No AC due to GI bleed and anemia Chronic right-sided HF (heart failure) Likely per cardio secondary to obesity hypo ventilatory syndrome/Pickwickian CKD (chronic kidney disease), stage III GERD (gastroesophageal reflux disease) History of kidney stones 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 HTN (hypertension) On home oxygen therapy 2L/MIN NC PRN SOB BERRY (obstructive sleep apnea) On nocturnal O2- could not tolerate CPAP per records Osteoarthritis Ovarian cancer 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 WELSH) Restless leg syndrome Sick sinus syndrome Spinal stenosis HX Surgical History H/O arthroscopy of knee H/O cystoscopy H/O gastric bypass "1980, reversed in same year" History of appendectomy (~09/07/20) History of arthroscopy LEFT KNEE History of colonoscopy History of ERCP (~09/2020) History of esophagogastroduodenoscopy (EGD) History of herniorrhaphy VENTRAL HERNIA REPAIR= 04/27/17= GRADE VIEW 2, CLEMENTE#2, ETT 7.0 AT [facility] History of lithotripsy History of tonsillectomy History of total hysterectomy with bilateral salpingo-oophorectomy (BSO) (~09/07/20) @ [facility] [place] with appy at same time [place] teeth removed Family History Mother Scleroderma Lupus Family history of reaction to anesthesia nausea Father Coronary heart disease Brother Fatty liver Aunt Cancer unspecified Grandfather (Paternal) Heart disease Grandfather (Maternal) Lung disease Grandmother (Paternal) Stroke Grandmother (Maternal) Family history of diabetes mellitus Social History Smoking Status: Former smoker Number of Years Since Quit: 20; Second Hand Exposure: Yes (ex smoked); Hx Alcohol Use: No Hx Substance Use: No Preferred Language: Faroese Communication Ability: Effective Visual Impairment: No Limitations Platform Loader Required: No Beliefs That Will Affect Care: None marital status: Current Living Situation: Alone Other Information That Helps Us Care for You: No Feels Safe at Home: Yes Safety Concerns: Feels Safe At This Time Assistive Devices: None Allergies Allergies Allergy/AdvReac Type Severity Reaction Status Date / Time levofloxacin Allergy Intermediate LE Verified 10/22/20 09:43 swelling and blistering tramadol Allergy Mild Rash Verified 10/22/20 09:43 clindamycin AdvReac Intermediate PT Verified 10/22/20 09:43 CONTRACTED C-DIFF adhesive AdvReac Mild SKIN Verified 10/22/20 09:43 BLISTERS SOME TIMES shellfish derived AdvReac Mild NAUSEA,DIARRHEA, Verified 10/22/20 09:43 VOMITING doxorubicin AdvReac Hypoxia Verified 11/28/20 18:55 Home Meds Home Medications Medication Instructions Recorded Confirmed docusate sodium [Colace] 100 mg PO BID PRN 10/18/18 11/28/20 lorazepam 0.5 mg PO BID 10/18/18 11/28/20 sertraline [Zoloft] 100 mg PO QAM 10/18/18 11/28/20 cyclobenzaprine 5 mg PO BID PRN 08/25/19 11/28/20 naproxen sodium 220 mg tablet 220 mg PO BID PRN 04/12/20 11/28/20 omeprazole 20 mg capsule,delayed 20 mg PO BID 04/12/20 11/28/20 release folic acid 1 mg PO QAM 05/08/20 11/28/20 fosfomycin tromethamine [Monurol] 3 g PO WK 10/01/20 11/28/20 hydrochlorothiazide 25 mg PO QAM 10/01/20 11/28/20 sotalol 80 mg PO BID 10/01/20 11/28/20 Previous Rx's Medication Instructions Recorded cholecalciferol (vitamin D3) 50 2,000 units PO QAM #90 tab 04/16/20 mcg (2,000 unit) tablet potassium citrate 15 mEq (1,620 15 meq PO BID #60 tab 11/26/20 mg) tablet,extended release Results & Data (ED) Vital Signs Vital Signs - 24 hr 11/28/20 15:42 11/28/20 16:40 11/28/20 17:32 Temperature 36.9 C Temperature Source Oral Pulse Rate 76 Pulse Rate [Left Finger] 61 Pulse Rhythm [Left Finger] Regular Pulse Strength [Left Finger] Normal Respiratory Rate 36 H 22 Respiratory Effort / Characteristics Non-Labored Respiratory Depth Normal Respiratory Pattern Regular Blood Pressure 109/65 Blood Pressure [Left Arm] 119/57 L Blood Pressure Mean 79 Blood Pressure Mean [Left Arm] 77 Blood Pressure Position [Left Arm] Sitting Pulse Oximetry 84 L 96 97 Oxygen Delivery Method Room Air Nasal Cannula Nasal Cannula Oxygen Flow Rate 3 2 Sepsis Recent Fever Within 48 Hours No Sepsis New/Unexplained Change in Mental Status No Sepsis Action Taken by Nursing No Action Required Home Medications Current Medication List: was personally reviewed by me Laboratory Data Attestation: I reviewed the patient's lab results. Result diagrams: 11/29/20 06:45 11/29/20 06:45 Lab Results 11/28/20 11/28/20 11/28/20 Range/Units 16:21 16:21 16:21 WBC 15.21 H (4.8-10.8) K/uL RBC 3.87 L (4.2-5.4) M/uL Hgb 10.6 L (12.0-16.0) g/dL POC Hgb (12.0-16.0) g/dl Hct 34.9 L (37-47) % POC Hct (37-47) % MCV 90.2 (80-100) fL MCH 27.4 (25-34) pg MCHC 30.4 L (32-36) g/dL RDW Std Deviation 79.6 H (36.4-46.3) fL RDW Coeff of Patrica 23.9 H (11.5-14.5) % Plt Count 312 (130-400) K/uL MPV 10.2 (7.4-10.4) fL Immature Gran % (Auto) 1.4 % Neut % (Auto) 93.1 % Lymph % (Auto) 3.1 % [place] % (Auto) 2.2 % Eos % (Auto) 0.1 % Baso % (Auto) 0.1 % Neut # (Auto) 14.16 H (1.4-6.5) K/uL Lymph # (Auto) 0.47 L (1.2-3.4) K/uL [place] # (Auto) 0.33 (0.11-0.59) K/uL Eos # (Auto) 0.02 (0-0.5) K/uL Baso # (Auto) 0.01 (0-0.2) K/uL Immature Gran # (Auto) 0.22 H (0.00-0.02) K/uL Absolute Nucleated RBC 0.21 H (0-0) K/uL Nucleated RBC % (auto) 1.4 % Hypochromasia Present Anisocytosis Present PT 11.3 (9.0-12.0) Seconds INR 1.1 (0.9-1.1) APTT 24.6 (21.0-31.0) Seconds PTT Ratio 0.9 POC Sodium (135-144) mmol/L Sodium 132 L (136-145) mmol/L POC Potassium (3.3-5.0) mmol/L Potassium 5.5 H (3.5-5.1) mmol/L POC Chloride (101-112) mmol/L Chloride 102 (98-107) mmol/L Carbon Dioxide 25 (21-32) mmol/L POC Total CO2 (24-31) mmol/L Anion Gap 5.0 (3-11) POC Anion Gap (16-25) mmol/L POC BUN (7-18) mg/dl BUN 22 H (7-18) mg/dl Creatinine 0.99 (0.6-1.2) mg/dl POC Creatinine (0.6-1.3) mg/dl Est Cr Clr Drug Dosing 79.9 ml/min Est GFR ( Amer) 68.3 Est GFR (Non-Af Amer) 59.0 BUN/Creatinine Ratio 22.5 H (10-20) Glucose 167 H (70-99) mg/dl POC Glucose (other) (70-99) mg/dl Calcium 8.8 (8.5-10.1) mg/dl POC Ioniz Calcium Du (1.12-1.32) mmol/l Total Bilirubin 1.2 H (0.2-1) mg/dl AST 48 H (15-37) U/L ALT 38 (12-78) U/L Alkaline Phosphatase 195 H (45-117) U/L Troponin I < 0.015 (0-0.045) ng/ml NT-Pro-B Natriuret Pep 552 (0-900) pg/ml Total Protein 7.5 (6.4-8.2) gm/dl Albumin 3.0 L (3.4-5.0) gm/dl Globulin 4.5 H (2.5-4.0) gm/dl Albumin/Globulin Ratio 0.7 L (0.9-2) Nasal Screen MRSA (PCR) (Negative) COVID-19 Eval Order SARS-CoV-2 (PCR) (Negative) Influenza Type A (PCR) (Neg) Influenza Type B (PCR) (Neg) RSV (RT-PCR) (Neg) 11/28/20 11/28/20 11/28/20 Range/Units 16:37 18:07 18:07 WBC (4.8-10.8) K/uL RBC (4.2-5.4) M/uL Hgb (12.0-16.0) g/dL POC Hgb 11.6 L (12.0-16.0) g/dl Hct (37-47) % POC Hct 34 L (37-47) % MCV (80-100) fL MCH (25-34) pg MCHC (32-36) g/dL RDW Std Deviation (36.4-46.3) fL RDW Coeff of Patrica (11.5-14.5) % Plt Count (130-400) K/uL MPV (7.4-10.4) fL Immature Gran % (Auto) % Neut % (Auto) % Lymph % (Auto) % [place] % (Auto) % Eos % (Auto) % Baso % (Auto) % Neut # (Auto) (1.4-6.5) K/uL Lymph # (Auto) (1.2-3.4) K/uL [place] # (Auto) (0.11-0.59) K/uL Eos # (Auto) (0-0.5) K/uL Baso # (Auto) (0-0.2) K/uL Immature Gran # (Auto) (0.00-0.02) K/uL Absolute Nucleated RBC (0-0) K/uL Nucleated RBC % (auto) % Hypochromasia Anisocytosis PT (9.0-12.0) Seconds INR (0.9-1.1) APTT (21.0-31.0) Seconds PTT Ratio POC Sodium 132 L (135-144) mmol/L Sodium (136-145) mmol/L POC Potassium 6.1 H* (3.3-5.0) mmol/L Potassium (3.5-5.1) mmol/L POC Chloride 98 L (101-112) mmol/L Chloride (98-107) mmol/L Carbon Dioxide (21-32) mmol/L POC Total CO2 27 (24-31) mmol/L Anion Gap (3-11) POC Anion Gap 14.0 L (16-25) mmol/L POC BUN 31 H (7-18) mg/dl BUN (7-18) mg/dl Creatinine (0.6-1.2) mg/dl POC Creatinine 0.9 (0.6-1.3) mg/dl Est Cr Clr Drug Dosing ml/min Est GFR ( Amer) Est GFR (Non-Af Amer) BUN/Creatinine Ratio (10-20) Glucose (70-99) mg/dl POC Glucose (other) 172 H (70-99) mg/dl Calcium (8.5-10.1) mg/dl POC Ioniz Calcium Du 1.16 (1.12-1.32) mmol/l Total Bilirubin (0.2-1) mg/dl AST (15-37) U/L ALT (12-78) U/L Alkaline Phosphatase (45-117) U/L Troponin I (0-0.045) ng/ml NT-Pro-B Natriuret Pep (0-900) pg/ml Total Protein (6.4-8.2) gm/dl Albumin (3.4-5.0) gm/dl Globulin (2.5-4.0) gm/dl Albumin/Globulin Ratio (0.9-2) Nasal Screen MRSA (PCR) (Negative) COVID-19 Eval Order CovFluRsv at [facility] SARS-CoV-2 (PCR) NEGATIVE (Negative) Influenza Type A (PCR) Negative (Neg) Influenza Type B (PCR) Negative (Neg) RSV (RT-PCR) Negative (Neg) 11/28/20 Range/Units 18:08 WBC (4.8-10.8) K/uL RBC (4.2-5.4) M/uL Hgb (12.0-16.0) g/dL POC Hgb (12.0-16.0) g/dl Hct (37-47) % POC Hct (37-47) % MCV (80-100) fL MCH (25-34) pg MCHC (32-36) g/dL RDW Std Deviation (36.4-46.3) fL RDW Coeff of Patrica (11.5-14.5) % Plt Count (130-400) K/uL MPV (7.4-10.4) fL Immature Gran % (Auto) % Neut % (Auto) % Lymph % (Auto) % [place] % (Auto) % Eos % (Auto) % Baso % (Auto) % Neut # (Auto) (1.4-6.5) K/uL Lymph # (Auto) (1.2-3.4) K/uL [place] # (Auto) (0.11-0.59) K/uL Eos # (Auto) (0-0.5) K/uL Baso # (Auto) (0-0.2) K/uL Immature Gran # (Auto) (0.00-0.02) K/uL Absolute Nucleated RBC (0-0) K/uL Nucleated RBC % (auto) % Hypochromasia Anisocytosis PT (9.0-12.0) Seconds INR (0.9-1.1) APTT (21.0-31.0) Seconds PTT Ratio POC Sodium (135-144) mmol/L Sodium (136-145) mmol/L POC Potassium (3.3-5.0) mmol/L Potassium (3.5-5.1) mmol/L POC Chloride (101-112) mmol/L Chloride (98-107) mmol/L Carbon Dioxide (21-32) mmol/L POC Total CO2 (24-31) mmol/L Anion Gap (3-11) POC Anion Gap (16-25) mmol/L POC BUN (7-18) mg/dl BUN (7-18) mg/dl Creatinine (0.6-1.2) mg/dl POC Creatinine (0.6-1.3) mg/dl Est Cr Clr Drug Dosing ml/min Est GFR ( Amer) Est GFR (Non-Af Amer) BUN/Creatinine Ratio (10-20) Glucose (70-99) mg/dl POC Glucose (other) (70-99) mg/dl Calcium (8.5-10.1) mg/dl POC Ioniz Calcium Du (1.12-1.32) mmol/l Total Bilirubin (0.2-1) mg/dl AST (15-37) U/L ALT (12-78) U/L Alkaline Phosphatase (45-117) U/L Troponin I (0-0.045) ng/ml NT-Pro-B Natriuret Pep (0-900) pg/ml Total Protein (6.4-8.2) gm/dl Albumin (3.4-5.0) gm/dl Globulin (2.5-4.0) gm/dl Albumin/Globulin Ratio (0.9-2) Nasal Screen MRSA (PCR) Negative (Negative) COVID-19 Eval Order SARS-CoV-2 (PCR) (Negative) Influenza Type A (PCR) (Neg) Influenza Type B (PCR) (Neg) RSV (RT-PCR) (Neg) Administered Medications Enoxaparin Sodium (Enoxaparin Inj 40 Mg/0.4 Ml Syr) 40 mg SQ Q12H [facility] Stop: 12/28/20 20:59 Last Admin: 11/29/20 08:21 Dose: 40 mg Documented by: [id number] Admin: 11/28/20 20:55 Dose: 40 mg Documented by: [id number] Folic Acid (Folic Acid 1 Mg Tab) 1 mg PO QAM [facility] Stop: 12/29/20 08:59 Last Admin: 11/29/20 08:21 Dose: 1 mg Documented by: [id number] Hydrochlorothiazide (Hydrochlorothiazide 25 Mg Tab) 25 mg PO QAM [facility] Stop: 12/29/20 08:59 Last Admin: 11/29/20 08:21 Dose: 25 mg Documented by: [id number] Lorazepam (Lorazepam 0.5 Mg Tab) 0.5 mg PO BID [facility] Stop: 12/28/20 20:59 Last Admin: 11/29/20 08:23 Dose: 0.5 mg Documented by: [id number] Admin: 11/28/20 20:54 Dose: 0.5 mg Documented by: [id number] Pantoprazole Sodium (Pantoprazole 40 Mg Tab) 40 mg PO BID [facility] Stop: 12/28/20 20:59 Last Admin: 11/29/20 08:21 Dose: 40 mg Documented by: [id number] Admin: 11/28/20 20:55 Dose: 40 mg Documented by: [id number] Sertraline HCl (Sertraline Hcl 100 Mg Tablet) 100 mg PO QAM [facility] Stop: 12/29/20 08:59 Last Admin: 11/29/20 08:21 Dose: 100 mg Documented by: [id number] Sotalol HCl (Sotalol Hcl 80 Mg Tab) 80 mg PO BID [facility] Stop: 12/28/20 20:59 Last Admin: 11/29/20 08:21 Dose: 80 mg Documented by: [id number] Admin: 11/28/20 20:55 Dose: 80 mg Documented by: [id number] Vitamin D (Cholecalciferol 1,000 Units 25 Mcg Tab) [facility] Stop: 12/29/20 08:59 Last Admin: 11/29/20 08:21 Dose: 2,000 units Documented by: [id number] Discontinued Medications Piperacillin Sod/Tazobactam Sod (Zosyn) 4.5 gm in 120 mls @ 240 mls/hr IV NOW ONE Stop: 11/28/20 18:06 Last Infusion: 11/28/20 18:43 Dose: 0 mls/hr Documented by: [id number] Admin: 11/28/20 18:04 Dose: 240 mls/hr Documented by: [id number] Ioversol (Optiray 320 125ml) 119 ml IV ONCE ONE Stop: 11/28/20 17:11 Last Admin: 11/28/20 17:10 Dose: 119 ml Documented by: [id number] Discharge Plan Visit Data Chief Complaint: Allergic Reaction Stated Complaint: ALLERGIC REACTION ED Provider: Sachin Vale Discharge Problem: Acute hypoxemic respiratory failure, Hyperkalemia, Ovarian cancer Patient Disposition: Admitted As Inpatient Discharge Instructions Interventions: ED Discharge Assessment Last Done: 11/28/20 19:39 Discharge Problem: Ovarian cancer Qualifiers: Laterality: unspecified laterality Qualified Code(s): C56.9 - Malignant neoplasm of unspecified ovary
--- NOTE | 2020-11-28 16:05 | XRay Report ---
XR chest 1V portable HISTORY: 65 years-old Female Dyspnea acute shortness of breath COMPARISON: Chest radiograph 10/22/2020 TECHNIQUE: Portable AP view of the chest FINDINGS: Cardiac silhouette is upper limits of normal in size. Left subclavian pacer. Right subclavian Infuse- a-Port catheter redemonstrated. No pneumothorax, large pleural effusion or lobar airspace consolidati on. Chronic interstitial coarsening. Degenerative changes of the shoulders and spine. IMPRESSION: No acute process. ACT 112: Negative or not required by law. The above report was generated using voice recognition software. It may contain grammatical, syntax o r spelling errors. Electronically signed by: Chas Luogn M.D. 11/28/2020 4:04 PM
[2020-11-28 16:32] LABS: Hematocrit (blood only) 34.9 % (37-47); Hemoglobin 10.6 g/dL (12.0-16.0); Mean Corpuscular Hemoglobin 27.4 pg (25-34); Mean Corpuscular Hgb Conc 30.4 g/dL (32-36); Mean Corpuscular Volume 90.2 fL (80-100); Mean Platelet Volume 10.2 fL (7.4-10.4); Nucleated RBC # (auto) 0.21 K/uL (0-0); Nucleated RBC % (auto) 1.4 %; Platelet Count 312 K/uL (130-400); RDW Coefficient of Variation 23.9 % (11.5-14.5); RDW Standard Deviation 79.6 fL (36.4-46.3); Red Blood Count 3.87 M/uL (4.2-5.4); White Blood Count 15.21 K/uL (4.8-10.8)
[2020-11-28 16:48] LABS: Alanine Aminotransferase 38 U/L (12-78); Aspartate Aminotransferase 48 U/L (15-37); BUN Creatinine Ratio 22.5 (10-20); Blood Urea Nitrogen 22 mg/dl (7-18); Calcium 8.8 mg/dl (8.5-10.1); Carbon Dioxide 25 mmol/L (21-32); Chloride 102 mmol/L (98-107); Creatinine Clr Calc Pharmacy 79.9 ml/min; Est GFR (African American) 68.3; Glucose 167 mg/dl (70-99); Potassium 5.5 mmol/L (3.5-5.1); Sodium 132 mmol/L (136-145)
[2020-11-28 16:49] LABS: Anisocytosis Present; Basophils # (auto) 0.01 K/uL (0-0.2); Basophils % (auto) 0.1 %; Eosinophils # (auto) 0.02 K/uL (0-0.5); Eosinophils % (auto) 0.1 %; Hypochromasia Present; Immature Granulocytes # (auto) 0.22 K/uL (0.00-0.02); Immature Granulocytes % (auto) 1.4 %; Lymphocytes # (auto) 0.47 K/uL (1.2-3.4); Lymphocytes % (auto) 3.1 %; Monocytes # (auto) 0.33 K/uL (0.11-0.59); Monocytes % (auto) 2.2 %; Neutrophils # (auto) 14.16 K/uL (1.4-6.5); Neutrophils % (auto) 93.1 %
[2020-11-28 16:50] LABS: iSTAT Creatinine 0.9 mg/dl (0.6-1.3); iSTAT Hemoglobin 11.6 g/dl (12.0-16.0); iSTAT Ionized Calcium 1.16 mmol/l (1.12-1.32); iSTAT Potassium 6.1 mmol/L (3.3-5.0)
[2020-11-28 16:51] LABS: INR 1.1 (0.9-1.1); Partial Thromboplastin Ratio 0.9; Partial Thromboplastin Time 24.6 Seconds (21.0-31.0); Prothrombin Time 11.3 Seconds (9.0-12.0)
[2020-11-28 16:53] LABS: Albumin Globulin Ratio 0.7 (0.9-2); Alkaline Phosphatase 195 U/L (45-117); Bilirubin,Total 1.2 mg/dl (0.2-1); Globulin 4.5 gm/dl (2.5-4.0); NT Pro B Type Natriuretic Pept 552 pg/ml (0-900); Total Protein 7.5 gm/dl (6.4-8.2); Troponin I < 0.015 ng/ml (0-0.045)
[2020-11-28] MEDS ORDERED: OPTIRAY 320 125ml IV ONE (17:10)
--- NOTE | 2020-11-28 17:31 | CT Scan Report ---
CHEST CTA for PULMONARY ARTERIES CT DOSE: 774.79 mGy.cm HISTORY: Dyspnea TECHNIQUE: Multiaxial CT images of the chest were performed following the intravenous administration of contrast to evaluate the pulmonary arteries. Maximal intensity projection images were also obtaine d. A dose lowering technique was utilized adhering to the principles of ALARA. COMPARISON STUDY: Chest CTA 05/28/2018. FINDINGS: Normal caliber thoracic aorta with no evidence for dissection. Moderate calcified plaque wi thin the left coronary arteries. The heart is mildly enlarged. No pleural or pericardial effusions. P acemaker wires are noted. The spleen is partially visualized but appears enlarged. This remains uncha nged. The spleen measures 18 cm in AP diameter. There is mild hepatic steatosis. Postoperative change s suggestive of prior gastric bypass. A right subclavian Port-A-Cath terminates in the SVC. Stable pr ominent left hilar lymph nodes. Therefore, these are likely benign. No mediastinal lymphadenopathy. N o suspicious lytic or blastic osseous lesions. No pneumothorax. Mild diffuse bronchial wall thickenin g, unchanged. There are low lung volumes. There is respiratory motion artifact. No significant change in the patchy groundglass densities and interstitial thickening seen throughout the lungs. There is associated mild air trapping, unchanged. This appears to be chronic. No new focal lung consolidations to suggest pneumonia. Respiratory motion artifact results in nondiagnostic evaluation of the some of the segmental and subsegmental pulmonary arteries. Otherwise, no definite filling defects within the pulmonary arteries to suggest pulmonary embolus. IMPRESSION: 1. No definite evidence for pulmonary embolus. 2. Stable splenomegaly. 3. Mild diffuse interstitial thickening, bronchial wall thickening, scattered patchy groundglass dens ities, and evidence for air trapping throughout the lungs. This is similar to the 2018 study and is t herefore likely chronic. No new focal lung consolidations to suggest pneumonia. 4. Additional stable findings as described above. ACT 112: Negative or not required by law. Electronically signed by: Karthik Cantu M.D. 11/28/2020 5:30 PM
[2020-11-28] MEDS ORDERED: PIPERACILLIN/TAZOBACTAM 4.5 GM/120 ML BAG IV ONE (17:37)
[2020-11-28] MEDS ORDERED: PIPERACILL/TAZOBAC CONSULT ACTIVE PRN (17:37)
--- NOTE | 2020-11-28 19:00 | History & Physical Report ---
Date of Service November 28, 2020 Assessment & Plan (1) Hypoxia: (2) Allergic reaction: Pt is 65 y/o F with PMH sick sinus syndrome s/p pacemaker, ovarian cancer s/p surgery and currently on chemo, BERRY intolerant to CPAP presented to ER with c/o hypoxia while receiving chemo (doxorubicin) today. Also with reported leg and back pain, facial flushing. Hypoxia improved in clinic with supplemental oxygen. Pt received benadryl, solucortef, solumedrol prior to ER arrival In ER afebrile, P: 76, initial R: 36 down to 22, BP: 109/65, 84% on RA up to 97% on 2L via NC. WBC: 15, Hgb: 10.6 (at baseline), negative influenza and Covid 19 testing CTA Chest: No definite evidence for pulmonary embolus. Mild diffuse interstitial thickening, bronchial wall thickening, scattered patchy groundglass densities, and evidence for air trapping throughout the lungs. This is similar to the 2018 study and is therefore likely chronic. No new focal lung consolidations to suggest pneumonia. Pt with reaction to chemo. Probable underlying chronic lung etiology In ER given Zosyn Will hold on additional antibiotics at this time Supplemental oxygen CBC, BMP in am Consider outpatient pulmonology consult (3) Hyperkalemia: K: 5.5 Hold oral potassium supplement Repeat BMP in am (4) Sick sinus syndrome: S/P pacemaker Continue sotalol (5) BERRY (obstructive sleep apnea): Intolerant to CPAP DVT Prophylaxis -Lovenox SQ Full Code as per discussion with pt Follows with Dr Whatley for routine care Pt was seen and care coordinated with Dr Tovar. See addendum History of Present Illness Chief Complaint: Allergic Reaction Primary Care Provider: Sabra Whatley, Pt is 65 y/o F with PMH sick sinus syndrome s/p pacemaker, ovarian cancer s/p surgery and currently on chemo, BERRY intolerant to CPAP presented to ER with c/o reaction to chemo. Today was receiving doxorubicin when started with leg and back pain, facial flushing and noted hypoxia reported in the 60s on room air and placed on 2L via NC. The doxorubicin was stopped and solucortef 100mg IV was given with pulse ox back up to 91%. Benadryl was given and doxorubicin was restarted and pt with reported SOB and noted hypoxia again and was given solumedrol 125mg and additional dose of Benadryl, supplemental oxygen applied and pt was transferred to ER. Pt denies any facial/lip edema or dysphagia. Since in ER pt reports no SOB, dizziness, CP, abdominal pain. Pt reports in past was on supplemental oxygen per pulmonology however since her pacemaker has not required further oxygen. Denies fever/chills, diaphoresis, N/V/D/C, BOX, dizziness, syncope, vision changes, neck pain, palpitations, cough, sore throat, choking, otalgia, rhinorrhea, paresthesias, weakness, extremity weakness, extremity edema, rashes, urinary symptoms. Allergies Allergy/AdvReac Type Severity Reaction Status Date / Time levofloxacin Allergy Intermediate LE Verified 10/22/20 09:43 swelling and blistering tramadol Allergy Mild Rash Verified 10/22/20 09:43 clindamycin AdvReac Intermediate PT Verified 10/22/20 09:43 CONTRACTED C-DIFF adhesive AdvReac Mild SKIN Verified 10/22/20 09:43 BLISTERS SOME TIMES shellfish derived AdvReac Mild NAUSEA,DIARRHEA, Verified 10/22/20 09:43 VOMITING doxorubicin AdvReac Hypoxia Verified 11/28/20 18:55 Home Medications Medication Instructions Recorded Confirmed Type docusate sodium [Colace] 100 mg PO BID PRN 10/18/18 11/28/20 History lorazepam 0.5 mg PO BID 10/18/18 11/28/20 History sertraline [Zoloft] 100 mg PO QAM 10/18/18 11/28/20 History cyclobenzaprine 5 mg PO BID PRN 08/25/19 11/28/20 History naproxen sodium 220 mg tablet 220 mg PO BID PRN 04/12/20 11/28/20 History omeprazole 20 mg capsule,delayed 20 mg PO BID 04/12/20 11/28/20 History release cholecalciferol (vitamin D3) 50 2,000 units PO QAM #90 tab 04/16/20 11/28/20 Rx mcg (2,000 unit) tablet folic acid 1 mg PO QAM 05/08/20 11/28/20 History fosfomycin tromethamine [Monurol] 3 g PO WK 10/01/20 11/28/20 History hydrochlorothiazide 25 mg PO QAM 10/01/20 11/28/20 History sotalol 80 mg PO BID 10/01/20 11/28/20 History potassium citrate 15 mEq (1,620 15 meq PO BID #60 tab 11/26/20 11/28/20 Rx mg) tablet,extended release Past Med/Surg History Medical History (Updated 11/28/20 @ 19:53 by Ginger Argueta PA-C) Anemia S/p blood transfusion 05/2020 Hgb baseline 8-9 Anxiety and depression Atrial fibrillation No AC due to GI bleed and anemia Chronic right-sided HF (heart failure) Likely per cardio secondary to obesity hypo ventilatory syndrome/Pickwickian CKD (chronic kidney disease), stage III GERD (gastroesophageal reflux disease) History of kidney stones 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 HTN (hypertension) On home oxygen therapy 2L/MIN NC PRN SOB BERRY (obstructive sleep apnea) On nocturnal O2- could not tolerate CPAP per records Osteoarthritis Ovarian cancer 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 WELSH) Restless leg syndrome Sick sinus syndrome Spinal stenosis HX Surgical History H/O arthroscopy of knee H/O cystoscopy H/O gastric bypass "1980, reversed in same year" History of appendectomy (~09/07/20) History of arthroscopy LEFT KNEE History of colonoscopy History of ERCP (~09/2020) History of esophagogastroduodenoscopy (EGD) History of herniorrhaphy VENTRAL HERNIA REPAIR= 04/27/17= GRADE VIEW 2, CLEMENTE#2, ETT 7.0 AT [facility] History of lithotripsy History of tonsillectomy History of total hysterectomy with bilateral salpingo-oophorectomy (BSO) (~09/07/20) @ [facility] [place] with appy at same time Caro teeth removed Family History Mother Scleroderma Lupus Family history of reaction to anesthesia nausea Father Coronary heart disease Brother Fatty liver Aunt Cancer unspecified Grandfather (Paternal) Heart disease Grandfather (Maternal) Lung disease Grandmother (Paternal) Stroke Grandmother (Maternal) Family history of diabetes mellitus Social History Smoking Status: Former smoker Number of Years Since Quit: 20; Second Hand Exposure: Yes (ex smoked); Hx Alcohol Use: No Hx Substance Use: No Preferred Language: Serbian Communication Ability: Effective Visual Impairment: No Limitations Inspector Glass Or Mirror Required: No Beliefs That Will Affect Care: None marital status: Current Living Situation: Alone Feels Safe at Home: Yes Assistive Devices: Cane and Glasses Review of Systems Review of Systems: All systems reviewed & are unremarkable except as noted in HPI & below Physical Exam Physical Exam: General: no distress, obese Head: normocephalic, atraumatic Eyes: conjunctiva non-injected, anicteric ENT: normal inspection external ears, nose, mucous membranes moist Neck: supple, trachea midline Lungs: clear, no respiratory distress, no wheezing/rhonchi/rales CV: RRR, no murmur, no pretibial edema Abd: +incision middle of abdomen, inferior aspect incision with healing dehiscence without surrounding erythema and without discharge, normal BS, soft, non-tender Ext: no cyanosis, no calf tenderness Neuro: A&O x 3, no focal deficits noted, normal affect Skin: warm, dry Results & Data Results & Data ([facility]) Vital Signs (Past 12 Hours) Vital Signs Temp Pulse Pulse Resp BP BP Pulse Ox 11/28/20 17:32 61 22 119/57 L 97 11/28/20 16:40 96 11/28/20 15:42 36.9 C 76 36 H 109/65 84 L Laboratory Results Short CBC 11/28/20 Range/Units 16:21 WBC 15.21 H (4.8-10.8) K/uL Hgb 10.6 L (12.0-16.0) g/dL Hct 34.9 L (37-47) % Plt Count 312 (130-400) K/uL BMP 11/28/20 16:21 Sodium 132 L Potassium 5.5 H Chloride 102 Carbon Dioxide 25 BUN 22 H Creatinine 0.99 Glucose 167 H Calcium 8.8 Cardiac Enzymes 11/28/20 Range/Units 16:21 Troponin I < 0.015 (0-0.045) ng/ml Liver Function 11/28/20 Range/Units 16:21 Total Bilirubin 1.2 H (0.2-1) mg/dl AST 48 H (15-37) U/L ALT 38 (12-78) U/L Alkaline Phosphatase 195 H (45-117) U/L Albumin 3.0 L (3.4-5.0) gm/dl Diagnostic Findings CXR: IMPRESSION: No acute process. CTA CHEST: IMPRESSION: 1. No definite evidence for pulmonary embolus. 2. Stable splenomegaly. 3. Mild diffuse interstitial thickening, bronchial wall thickening, scattered patchy groundglass densities, and evidence for air trapping throughout the lungs. This is similar to the 2018 study and is therefore likely chronic. No new focal lung consolidations to suggest pneumonia. 4. Additional stable findings as described above. Supervising Physician Co-Signing Physician Notes 65-year-old woman with h/o sick sinus syndrome s/p pacemaker, ovarian cancer s/p surgery and currently on chemo, BERRY intolerant to CPAP presented to ER with c/o reaction to chemotherapy. Patient was noted to have developed body pains, facial flushing, hypoxia while receiving IV doxorubicin. Symptoms are currently resolved except for hypoxia currently requiring 2 L/min of oxygen. Physical exam currently unremarkable. Chest is clear to auscultations bilaterally, currently on 2 L/min of oxygen saturating 97% Lab work notable for WBC of 15, hemoglobin of 10.6, potassium of 5.5, alkaline phosphatase of 195 CT angio did not show any sign of PE but shows mild diffuse interstitial/bronchial wall thickening, scattered patchy groundglass densities which were similar to that of 2018, likely chronic without new focal consolidations -Drug reaction -Acute hypoxic respiratory failure Reaction to doxorubicin. Patient denied any anaphylactic symptoms at the time such as difficulty breathing, sore/itchy/swelling throat, rash etc. It is unclear if hypoxia is due to reaction as well as patient has chronic lung findings, h/o BERRY not tolerating CPAP and also reports having required oxygen intermittently in the past. Incentive spirometry for now. Wean down/off oxygen as tolerated. Get ambulatory pulse ox prior to discharge and may need follow up with supervisor polishing Potassium is 5.5. Hold home potassium and monitor Other plans as above
[2020-11-28 19:02] LABS: Influenza A virus by PCR Negative (Neg); Influenza B virus by PCR Negative (Neg); RSV by PCR Negative (Neg); SARS CoV2 RNA(COVID-19) InHosp NEGATIVE (Negative)
[2020-11-28] MEDS ORDERED: NAPROXEN 250 MG TAB PO PRN (20:13)
[2020-11-28] MEDS ORDERED: ACETAMINOPHEN 325 MG TAB PO PRN (20:13)
[2020-11-28] MEDS ORDERED: CYCLOBENZAPRINE HCL 5 MG TAB PO PRN (20:13)
[2020-11-28] MEDS ORDERED: DOCUSATE SODIUM 100 MG CAP PO PRN (20:13)
[2020-11-28] MEDS ORDERED: ONDANSETRON INJ 2 MG/ML 2 ML VIAL IV PRN (20:13)
[2020-11-28] MEDS: LORazepam 0.5 MG TAB PO SCH (20:54)
[2020-11-28] MEDS: ENOXAPARIN INJ 40 MG/0.4 ML SYR SQ SCH (20:55)
[2020-11-28] MEDS: PANTOprazole 40 MG TAB PO SCH (20:55)
[2020-11-28] MEDS: SOTALOL HCL 80 MG TAB PO SCH (20:55)
[2020-11-28] MEDS ORDERED: NON-FORMULARY MEDICATION (Omeprazole 20 mg capsule,delayed release(DR/EC)) PO SCH (21:00)
--- NOTE | 2020-11-29 06:07 | Electrocardiogram Report ---
Test Reason : Blood Pressure : / mmHG Vent. Rate : 063 BPM Atrial Rate : 063 BPM P-R Int : 144 ms QRS Dur : 086 ms QT Int : 452 ms P-R-T Axes : 034 001 037 degrees QTc Int : 462 ms Normal sinus rhythm Minimal voltage criteria for LVH, may be normal variant Nonspecific ST abnormality Abnormal ECG When compared with ECG of 10-MAY-2020 17:57, Sinus rhythm has replaced Atrial pacing Confirmed by Toan Carrion ([id number]) on 11/29/2020 6:06:37 AM Referred By: REFERRED SELF Confirmed By:Toan Carrion
[2020-11-29 07:21] LABS: BUN Creatinine Ratio 26.6 (10-20); Creatinine Clr Calc Pharmacy 67.3 ml/min; Est GFR (African American) 65.1; Est GFR (Non-African American) 56.2; Potassium 4.9 mmol/L (3.5-5.1)
[2020-11-29 07:29] LABS: Hematocrit (blood only) 27.8 % (37-47); Hemoglobin 8.4 g/dL (12.0-16.0); Mean Corpuscular Hemoglobin 27.1 pg (25-34); Mean Corpuscular Hgb Conc 30.2 g/dL (32-36); Mean Corpuscular Volume 89.7 fL (80-100); Mean Platelet Volume 9.7 fL (7.4-10.4); Nucleated RBC # (auto) 0.03 K/uL (0-0); Nucleated RBC % (auto) 0.9 %; Platelet Count 200 K/uL (130-400); RDW Coefficient of Variation 23.3 % (11.5-14.5); RDW Standard Deviation 76.7 fL (36.4-46.3)
[2020-11-29 07:31] LABS: Anisocytosis Present; Hypochromasia Present; Immature Granulocytes # (auto) 0.03 K/uL (0.00-0.02); Immature Granulocytes % (auto) 0.8 %; Lymphocytes # (auto) 0.52 K/uL (1.2-3.4); Lymphocytes % (auto) 14.4 %; Monocytes # (auto) 0.27 K/uL (0.11-0.59); Monocytes % (auto) 7.5 %; Neutrophils # (auto) 2.78 K/uL (1.4-6.5); Neutrophils % (auto) 77.3 %
[2020-11-29] MEDS: PANTOprazole 40 MG TAB PO SCH (08:21)
[2020-11-29] MEDS: SOTALOL HCL 80 MG TAB PO SCH (08:21)
[2020-11-29] MEDS: ENOXAPARIN INJ 40 MG/0.4 ML SYR SQ SCH (08:21)
[2020-11-29] MEDS: LORazepam 0.5 MG TAB PO SCH (08:23)
[2020-11-29] MEDS ORDERED: hydroCHLOROthiazide 25 MG TAB PO SCH (09:00)
[2020-11-29] MEDS ORDERED: FOLIC ACID 1 MG TAB PO SCH (09:00)
[2020-11-29] MEDS ORDERED: CHOLECALCIFEROL 1,000 UNITS 25 MCG TAB PO SCH (09:00)
[2020-11-29] MEDS ORDERED: SERTRALINE HCL 100 MG TABLET PO SCH (09:00)
--- NOTE | 2020-11-29 11:13 | Hospitalist Progress Note ---
Date of Service November 29, 2020 Assessment & Plan (1) Hypoxia: (2) Allergic reaction: Patent is a 65 yr female with H/O sick sinus syndrome s/p pacemaker, ovarian cancer s/p surgery and currently on chemo, BERRY intolerant to CPAP presented to ER with c/o hypoxia while receiving chemo (doxorubicin) today. Allergic Reaction Hypoxia --CTA Chest: No definite evidence for pulmonary embolus. Mild diffuse interstitial thickening, bronchial wall thickening, scattered patchy groundglass densities, and evidence for air trapping throughout the lungs. This is similar to the 2018 study and is therefore likely chronic. No new focal lung consolidations to suggest pneumonia. --DD: Underlying BERRY, Possible Obesity Hypoventilation Syndrome and air trapping could be contributing --Not using CPAP due to Intolerance --States being on supplemental oxygen intermittently before. Received IV Solu-Medrol, Benadryl prior to ED visit Also received IV Zosyn empirically in ED Symptoms resolved Weaned off of supplemental oxygen 2 Step: Did not qualify for oxygen Advised to follow-up with pulmonology as outpatient Ovarian cancer S/P surgery Currently undergoing chemotherapy Follows with [facility] oncology as outpatient Chronic hyponatremia Likely secondary to diuretics Sodium levels at baseline Monitor (3) Hyperkalemia: Resolved Oral potassium supplements discontinued Monitor basic metabolic panel (4) Sick sinus syndrome: S/P pacemaker Pacemaker was recently checked 2 weeks ago as per patient Continue sotalol (5) BERRY (obstructive sleep apnea): Intolerant to CPAP DVT Px Lovenox SQ Code Status Full Code Disposition Follows with Dr Whatley for routine care Admission and Anticipated Discharge Date Admission Date: November 28, 2020 Subjective Patient is seen and examined at bedside States feeling well today Offers no complaints Denies chest pain, shortness of breath, dizziness, nausea, abdominal pain, diarrhea Eager to get discharged 2 step: Did not qualify for oxygen Review of Systems Review of Systems: All systems reviewed & are unremarkable except as noted in HPI & below Physical Exam Physical Exam: Physical Exam: Vitals signs as noted above General Appearance:Obese, no apparent distress Head: normocephalic, Atraumatic Eyes: normal inspection, EOMI Neck: supple, Trachea midline Respiratory/Chest: Normal breath sounds, CTA, + Right side chemo port Cardiovascular: S1, S2, + murmur Abdomen/GI:Soft, Non tender, Bowel sounds present Extremities/Musculoskelatal:normal inspection, Trace edema Neurologic/Psych:AAOX3, grossly no focal neurological deficits Skin: normal color, warm Results & Data Results & Data ([facility]) Vital Signs (Past 12 Hours) Vital Signs Temp Pulse Pulse Pulse Pulse Resp Resp 11/29/20 09:36 74 77 74 18 11/29/20 07:28 36.5 C 66 19 11/29/20 03:35 36.4 C L 67 19 11/28/20 23:19 36.6 C 74 19 Resp Resp BP Pulse Ox Pulse Ox Pulse Ox Pulse Ox 11/29/20 09:36 18 18 92 93 92 11/29/20 07:28 115/65 94 11/29/20 03:35 110/60 91 11/28/20 23:19 105/56 L 91 Laboratory Results Short CBC 11/28/20 11/29/20 Range/Units 16:21 06:45 WBC 15.21 H 3.60 L D (4.8-10.8) K/uL Hgb 10.6 L 8.4 L (12.0-16.0) g/dL Hct 34.9 L 27.8 L (37-47) % Plt Count 312 200 (130-400) K/uL BMP 11/28/20 11/29/20 16:21 06:45 Sodium 132 L 132 L Potassium 5.5 H 4.9 Chloride 102 101 Carbon Dioxide 25 26 BUN 22 H 27 H Creatinine 0.99 1.03 Glucose 167 H 164 H Calcium 8.8 9.0 Cardiac Enzymes 11/28/20 Range/Units 16:21 Troponin I < 0.015 (0-0.045) ng/ml Liver Function 11/28/20 Range/Units 16:21 Total Bilirubin 1.2 H (0.2-1) mg/dl AST 48 H (15-37) U/L ALT 38 (12-78) U/L Alkaline Phosphatase 195 H (45-117) U/L Albumin 3.0 L (3.4-5.0) gm/dl
--- NOTE | 2020-11-29 11:18 | Discharge Summary ---
Date of Service November 29, 2020 Admission HPI Per Admitting Provider Pt is 65 y/o F with PMH sick sinus syndrome s/p pacemaker, ovarian cancer s/p surgery and currently on chemo, BERRY intolerant to CPAP presented to ER with c/o reaction to chemo. Today was receiving doxorubicin when started with leg and back pain, facial flushing and noted hypoxia reported in the 60s on room air and placed on 2L via NC. The doxorubicin was stopped and solucortef 100mg IV was given with pulse ox back up to 91%. Benadryl was given and doxorubicin was restarted and pt with reported SOB and noted hypoxia again and was given solumedrol 125mg and additional dose of Benadryl, supplemental oxygen applied and pt was transferred to ER. Pt denies any facial/lip edema or dysphagia. Since in ER pt reports no SOB, dizziness, CP, abdominal pain. Pt reports in past was on supplemental oxygen per pulmonology however since her pacemaker has not required further oxygen. Denies fever/chills, diaphoresis, N/V/D/C, BOX, dizziness, syncope, vision changes, neck pain, palpitations, cough, sore throat, choking, otalgia, rhinorrhea, paresthesias, weakness, extremity weakness, extremity edema, rashes, urinary symptoms. Admission Exam Per Admitting Provider Physical Exam Physical Exam: General: no distress, obese Head: normocephalic, atraumatic Eyes: conjunctiva non-injected, anicteric ENT: normal inspection external ears, nose, mucous membranes moist Neck: supple, trachea midline Lungs: clear, no respiratory distress, no wheezing/rhonchi/rales CV: RRR, no murmur, no pretibial edema Abd: +incision middle of abdomen, inferior aspect incision with healing dehiscence without surrounding erythema and without discharge, normal BS, soft, non-tender Ext: no cyanosis, no calf tenderness Neuro: A&O x 3, no focal deficits noted, normal affect Skin: warm, dry Principal Diagnosis Allergic reaction Hypoxia Hyperkalemia Hyponatremia Discharge Data Allergies Allergy/AdvReac Type Severity Reaction Status Date / Time levofloxacin Allergy Intermediate LE Verified 10/22/20 09:43 swelling and blistering tramadol Allergy Mild Rash Verified 10/22/20 09:43 clindamycin AdvReac Intermediate PT Verified 10/22/20 09:43 CONTRACTED C-DIFF adhesive AdvReac Mild SKIN Verified 10/22/20 09:43 BLISTERS SOME TIMES shellfish derived AdvReac Mild NAUSEA,DIARRHEA, Verified 10/22/20 09:43 VOMITING doxorubicin AdvReac Hypoxia Verified 11/28/20 18:55 Consultations 11/28/20 18:07 ED Decision to Admit Stat Procedures Performed CTA Chest: No definite evidence for pulmonary embolus. Mild diffuse interstitial thickening, bronchial wall thickening, scattered patchy groundglass densities, and evidence for air trapping throughout the lungs. This is similar to the 2018 study and is therefore likely chronic. No new focal lung consolidations to suggest pneumonia. Ordered Studies 11/28/20 15:55 CT angio chest PE protocol Stat Hospital Course (1) Hypoxia: (2) Allergic reaction: Patent is a 65 yr female with H/O sick sinus syndrome s/p pacemaker, ovarian cancer s/p surgery and currently on chemo, BERRY intolerant to CPAP presented to ER with c/o hypoxia while receiving chemo (doxorubicin) today. Allergic Reaction Hypoxia --CTA Chest: No definite evidence for pulmonary embolus. Mild diffuse interstitial thickening, bronchial wall thickening, scattered patchy groundglass densities, and evidence for air trapping throughout the lungs. This is similar to the 2018 study and is therefore likely chronic. No new focal lung consolidations to suggest pneumonia. --DD: Underlying BERRY, Possible Obesity Hypoventilation Syndrome and air trapping could be contributing --Not using CPAP due to Intolerance --States being on supplemental oxygen intermittently before. Received IV Solu-Medrol, Benadryl prior to ED visit Also received IV Zosyn empirically in ED Symptoms resolved Weaned off of supplemental oxygen 2 Step: Did not qualify for oxygen Advised to follow-up with pulmonology as outpatient Ovarian cancer S/P surgery Currently undergoing chemotherapy Follows with [facility] oncology as outpatient Chronic hyponatremia Likely secondary to diuretics Sodium levels at baseline Monitor (3) Hyperkalemia: Resolved Oral potassium supplements discontinued Monitor basic metabolic panel (4) Sick sinus syndrome: S/P pacemaker Pacemaker was recently checked 2 weeks ago as per patient Continue sotalol (5) BERRY (obstructive sleep apnea): Intolerant to CPAP DVT Px Lovenox SQ Code Status Full Code Disposition Follows with Dr Whatley for routine care Total Time Total Time Spent Total Time Spent (In Minutes): 38 minutes Total Time Includes: Examination of the Patient, Discharge Planning, Medication Reconciliation, Communication With Other Providers and Other Discharge Plan Discharge Items Patient Disposition: Home - Self-Care Reason For Visit: HYPOXIA Discharge Diagnosis: Allergic reaction Hypoxia Hyperkalemia Hyponatremia Activity: Per Instructions section Exercise/Sports: Gradually increase as tolerated Non-emergency contact: Primary Care Provider and Dental Office Receptionist Call non-emergency contact if: you have any medication questions, your symptoms worsen, your pain is not controlled and you have a fever Follow-up/Referrals: Sabra Whatley DO [Primary Care Provider] - (Date & Time 12/04/2020 11:00 AM Provider Sabra Whatley DO Department [facility] ) Diet: Heart Healthy Addtl Attending Provider Instructions: Follow-up with your primary care physician on 12/04/2020 11:00 AM as scheduled Follow-up with your transfer knitter as recommended for further evaluation of your abnormal chest CT scan Your potassium supplements were discontinued secondary to high potassium levels. Further medication adjustment as per your primary care physician. Your blood cultures are pending at the time of discharge. Follow-up with your physician for results. Seek immediate medical attention if your symptoms reoccur or worsen Pending Studies at Discharge: Yes Stand-Alone Forms: My [facility] [employer] Smoking Cessation Medications and DC Order Prescriptions: Continued cholecalciferol (vitamin D3) 50 mcg (2,000 unit) tablet 2,000 units PO QAM Qty: 90 RF: 3 omeprazole 20 mg capsule,delayed release(DR/EC) 20 mg PO BID RF: 0 naproxen sodium [Aleve] 220 mg tablet 220 mg PO BID PRN (Reason: Pain) RF: 0 sertraline [Zoloft] 100 mg Tablet 100 mg PO QAM RF: 0 lorazepam 0.5 mg Tablet 0.5 mg PO BID RF: 0 docusate sodium [Colace] 100 mg Capsule 100 mg PO BID PRN (Reason: Constipation) RF: 0 folic acid 1 mg Tablet 1 mg PO QAM RF: 0 fosfomycin tromethamine [Monurol] 3 gram packet 3 g PO WK RF: 0 sotalol 80 mg tablet 80 mg PO BID RF: 0 hydrochlorothiazide 25 mg tablet 25 mg PO QAM RF: 0 cyclobenzaprine 5 mg tablet 5 mg PO BID PRN (Reason: Muscle Spasm) RF: 0 Discontinued potassium citrate 15 mEq tablet extended release 15 meq PO BID Qty: 60 RF: 2 Discharge Orders: Discharge Order (Routine); Ordered 11/29/20 Ordered By: Jose Dixon Admission Data Admit Date/Time: 11/28/20 18:55 Attending Provider: Jose Dixon Admit Provider: Trina Tovar I. Primary Care Provider: Sabra Whatley Other Providers: Trina Tovar I. Other Interventions: Discharge Summary Assessment (RN) Last Done: 11/29/20 11:18
--- NOTE | 2020-12-10 09:45 | Coding Query ---
To promote full compliance with coding requirements relating to patient care, provider participation is requested in all cases of latex thread machine operator uncertainty. Please assist us with the question(s) below: Coding Question(s): The diagnosis below was documented in the ED note and H&P only then subsequently fell off all further documentation. Please indicate if it is still a possible diagnosis or ruled out. Thank you for your help! Acute Respiratory Failure ( x ) Diagnosed and POA ( ) Diagnosed and not POA ( ) Ruled out ( ) Other (please specify) MTDD
== END 2020-11-29 12:55 | disposition home or self-care (01) | DRG 915 ==
LOC: ED 15:31 → 2S 18:55 → SUATTDRO 18:55 → 2S 19:39

== ENCOUNTER 2020-12-26 14:43 | Inpatient (IN) ==
[2020-12-26] MEDS ORDERED: SODIUM CHLORIDE 0.9% 250 ML IV PRN ×2 (15:09→20:08)
--- NOTE | 2020-12-26 15:28 | Emergency Department Note ---
Impression & Plan Symptomatic anemia, Ovarian cancer, Thrombocytopenia, Neutropenia ED Provider Note NAME: MICHELLE ARELLANO AGE: 65 SEX: F ARRIVES VIA: Walk-In INFORMANT: Patient, ED PROVIDER(S): Darrell Huff MD CHIEF COMPLAINT: Anemia, ovarian cancer on chemotherapy. PLAN: Disposition: Admit MEDICAL DECISION MAKING: The patient is a pleasant 65-year-old woman with a past medical history of atrial fibrillation, sick sinus syndrome, diastolic heart failure, ovarian cancer currently undergoing chemotherapy who presents emergency department for e valuation after being referred for outpatient blood work this morning that showed anemia with hemoglobin of 4.8 and platelets less than 10K. The patient denies any obvious bleeding including denies bloody or black stools or vaginal bleeding. She reports feeling tired and weaker but denies chest pain, shortness of breath, nausea, vomiting, fevers, chills, cough, congestion, known COVID-19 exposures. She is agreeable with admission for transfusion. On arrival the patient is fatigued appearing but no acute distress, afebrile with stable vital signs. She appears pale. EKG without overt acute ischemia. CXR negative for acute cardiopulmonary process with chronic interstitial thickening. WBC 0.97 with ANC of 0.39. H/H 4.3/13.8, platelet 6K. Chemistry without acidosis. Electrolytes and LFTs unremarkable. Troponin negative/undetectable. Covid19 RNA, NAAT negative. Patient consented for blood products, ordered for 3 units PRBCs and 2 units of platelets. Case was discussed with Mandy Argueta, [facility] PAC, [facility] hospitalist who will evaluate the patient for admission. Triage Nursing notes reviewed and agree them. Additional history obtained from [facility] records. Prior medical records reviewed Vital Signs: reviewed and remarkable for no significant abnormalities Differential diagnosis: Infection, dehydration, metabolic abnormality, hypo/hyperglycemia, electrolyte disturbance, anemia, hypoxia, cardiac sources, intracerebral event, toxicologic, neurologic, as well as other pathologies. ER treatment provided: See below. Diagnostics interpreted by me: ECG: NSR, 66 bpm, no ectopy, LVH, nonspecific ST abnormality, no overt ST elevation or depression. Cardiac Monitoring: An order for continuous cardiac monitoring was placed and demonstrated NSR, 66 bpm, no ectopy. Laboratory studies: See below Imaging studies: XR chest 1V portable HISTORY: 65 years-old Female Chest Pain acute atypical chest pain COMPARISON: Chest radiograph and CTA chest 11/28/2020 TECHNIQUE: Portable AP view of the chest. FINDINGS: Cardiac silhouette is upper limits of normal in size. Left subclavian pacer. Right subclavian [id number] catheter. No pneumothorax, pleural effusion or lobar airspace consolidation. Unchanged interstitial coarsening. Degenerative changes of the shoulders and spine. IMPRESSION: Chronic interstitial coarsening without acute process identified. ACT 112: Negative or not required by law. Consultation(s): Mandy Argueta, [facility] PAC, with Zack [facility] hospitalist HPI: The patient is a pleasant 65-year-old woman with a past medical history of atrial fibrillation, sick sinus syndrome, diastolic heart failure, ovarian cancer currently undergoing chemotherapy who presents emergency department for evaluation after being referred for outpatient blood work that showed anemia with hemoglobin of 4.8 and platelets less than 10K. The patient denies any obvious bleeding including denies bloody or black stools or vaginal bleeding. She reports feeling tired and weaker but denies chest pain, shortness of breath, nausea, vomiting, fevers, chills, cough, congestion, known COVID-19 exposures. She is agreeable with admission for transfusion. ROS: See above HPI for pertinent positives & negatives. A total of 10 systems r eviewed and were otherwise negative. PAST MEDICAL HISTORY:See Below PAST SURGICAL HISTORY:See Below FAMILY HISTORY:See Below SOCIAL HISTORY:See Below HOME MEDICATIONS:See Below ALLERGIES:See Below VITALS:See Below PHYSICAL EXAMINATION: GENERAL: Awake, alert, fatigued-appearing, in no distress HENT: Normocephalic, atraumatic. Oropharynx with dry mucous membranes and otherwise unremarkable. EYES: Normal conjunctiva. Sclera non-icteric. NECK: Supple. No nuchal rigidity. FROM. No JVD. RESPIRATORY: Clear to auscultation. CARDIAC: Regular rate, normal rhythm. Extremities warm and well perfused. Pulses equal. ABDOMEN: Soft, non-distended. No tenderness to palpation. No rebound or guar ding. No masses. RECTAL: Deferred. MUSCULOSKELETAL: Chest examination reveals no tenderness. The back is symmetrical on inspection without obvious abnormality. There is no CVA tenderness to palpation. No joint edema. LOWER EXTREMITIES: Calves are equal size bilaterally and non-tender. No edema. No discoloration. NEURO: Normal sensorium. No sensory or motor deficits noted. SKIN: Moderate pallor. No rash or jaundice noted. ED COURSE: Critical Care: I have personally spent greater than 45 minutes of critical care time in the direct management of this patient. This includes bedside care, interpretation of diagnostic studies, and testing, discussion with consultants, patient, and family members, and other required patient management activities. This 45 minutes is in excess of all separately billable procedures. Darrell Huff MD Past Med/Surg History Medical History Anemia S/p blood transfusion 05/2020 Hgb baseline 8-9 Anxiety and depression Atrial fibrillation No AC due to GI bleed and anemia Chronic right-sided HF (heart failure) Likely per cardio secondary to obesity hypo ventilatory syndrome/Pickwickian CKD (chronic kidney disease), stage III GERD (gastroesophageal reflux disease) History of kidney stones 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 HTN (hypertension) On home oxygen therapy 2L/MIN NC PRN SOB BERRY (obstructive sleep apnea) On nocturnal O2- could not tolerate CPAP per records Osteoarthritis Ovarian cancer 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 WELSH) Restless leg syndrome Sick sinus syndrome Spinal stenosis HX Surgical History H/O arthroscopy of knee H/O cystoscopy H/O gastric bypass "1980, reversed in same year" History of appendectomy (~09/07/20) History of arthroscopy LEFT KNEE History of colonoscopy History of ERCP (~09/2020) History of esophagogastroduodenoscopy (EGD) History of herniorrhaphy VENTRAL HERNIA REPAIR= 04/27/17= GRADE VIEW 2, CLEMENTE#2, ETT 7.0 AT [facility] History of lithotripsy History of tonsillectomy History of total hysterectomy with bilateral salpingo-oophorectomy (BSO) (~09/07/20) @ [facility] with appy at same time [place] teeth removed Family History Mother Scleroderma Lupus Family history of reaction to anesthesia nausea Father Coronary heart disease Brother Fatty liver Aunt Cancer unspecified Grandfather (Paternal) Heart disease Grandfather (Maternal) Lung disease Grandmother (Paternal) Stroke Grandmother (Maternal) Family history of diabetes mellitus Social History Smoking Status: Former smoker Tobacco Type: Cigarettes Number of Years Since Quit: 20; Second Hand Exposure: Yes (ex smoked); Hx Alcohol Use: No Hx Substance Use: No Preferred Language: Swedish Communication Ability: Effective Visual Impairment: No Limitations Indoor Plant Technician Required: No Beliefs That Will Affect Care: None marital status: Current Living Situation: Alone Feels Safe at Home: Yes Safety Concerns: Feels Safe At This Time Assistive Devices: None Allergies Allergies Allergy/AdvReac Type Severity Reaction Status Date / Time levofloxacin Allergy Intermediate LE Verified 10/22/20 09:43 swelling and blistering tramadol Allergy Mild Rash Verified 10/22/20 09:43 clindamycin AdvReac Intermediate PT Verified 10/22/20 09:43 CONTRACTED C-DIFF adhesive AdvReac Mild SKIN Verified 10/22/20 09:43 BLISTERS SOME TIMES shellfish derived AdvReac Mild NAUSEA,DIARRHEA, Verified 10/22/20 09:43 VOMITING doxorubicin AdvReac Hypoxia Verified 11/28/20 18:55 Home Meds Home Medications Medication Instructions Recorded Confirmed docusate sodium [Colace] 100 mg PO BID PRN 10/18/18 12/26/20 lorazepam 0.5 mg PO BID 10/18/18 12/26/20 sertraline [Zoloft] 100 mg PO QAM 10/18/18 12/26/20 cyclobenzaprine 5 mg PO BID PRN 08/25/19 12/26/20 naproxen sodium 220 mg tablet 220 mg PO BID PRN 04/12/20 12/26/20 omeprazole 20 mg capsule,delayed 20 mg PO BID 04/12/20 12/26/20 release folic acid 1 mg PO QAM 05/08/20 12/26/20 fosfomycin tromethamine [Monurol] 3 g PO WK 10/01/20 12/26/20 hydrochlorothiazide 25 mg PO QAM 10/01/20 12/26/20 sotalol 80 mg PO BID 10/01/20 12/26/20 Previous Rx's Medication Instructions Recorded cholecalciferol (vitamin D3) 50 2,000 units PO QAM #90 tab 04/16/20 mcg (2,000 unit) tablet Results & Data (ED) Vital Signs Vital Signs - 24 hr 12/26/20 14:44 12/26/20 15:15 12/26/20 15:18 Temperature 35.7 C L Temperature Source Temporal Artery Scan Pulse Rate 66 68 Pulse Rate from SpO2 Sensor Respiratory Rate 18 18 Respiratory Effort / Characteristics Non-Labored Spontaneous Accessory Muscle Use Respiratory Depth Normal Blood Pressure 141/56 H Blood Pressure Mean 84 Blood Pressure Position Sitting Pulse Oximetry 93 91 Oxygen Delivery Method Room Air Room Air Sepsis Recent Fever Within 48 Hours No Sepsis New/Unexplained Change in Mental Status N/A Sepsis Action Taken by Nursing No Action Required 12/26/20 15:20 12/26/20 15:30 12/26/20 15:40 Temperature Temperature Source Pulse Rate 65 67 64 Pulse Rate from SpO2 Sensor 66 64 Respiratory Rate 20 22 21 Respiratory Effort / Characteristics Respiratory Depth Blood Pressure Blood Pressure Mean Blood Pressure Position Pulse Oximetry 91 91 Oxygen Delivery Method Sepsis Recent Fever Within 48 Hours Sepsis New/Unexplained Change in Mental Status Sepsis Action Taken by Nursing 12/26/20 15:50 12/26/20 16:00 12/26/20 16:10 Temperature Temperature Source Pulse Rate 66 67 66 Pulse Rate from SpO2 Sensor 66 67 66 Respiratory Rate 20 20 22 Respiratory Effort / Characteristics Respiratory Depth Blood Pressure Blood Pressure Mean Blood Pressure Position Pulse Oximetry 91 91 94 Oxygen Delivery Method Sepsis Recent Fever Within 48 Hours Sepsis New/Unexplained Change in Mental Status Sepsis Action Taken by Nursing 12/26/20 16:20 Temperature Temperature Source Pulse Rate 66 Pulse Rate from SpO2 Sensor 66 Respiratory Rate 15 Respiratory Effort / Characteristics Respiratory Depth Blood Pressure Blood Pressure Mean Blood Pressure Position Pulse Oximetry 95 Oxygen Delivery Method Sepsis Recent Fever Within 48 Hours Sepsis New/Unexplained Change in Mental Status Sepsis Action Taken by Nursing Laboratory Data Attestation: I reviewed the patient's lab results. Result diagrams: 12/26/20 16:13 12/26/20 15:20 Lab Results 12/26/20 12/26/20 12/26/20 Range/Units 15:20 15:20 15:20 WBC Cancelled RBC Cancelled Hgb Cancelled Hct Cancelled MCV Cancelled MCH Cancelled MCHC Cancelled RDW Std Deviation Cancelled RDW Coeff of Patrica Cancelled Plt Count Cancelled MPV Cancelled Immature Gran % (Auto) Cancelled Neut % (Auto) Cancelled Lymph % (Auto) Cancelled Clinch % (Auto) Cancelled Eos % (Auto) Cancelled Baso % (Auto) Cancelled Neut # (Auto) Cancelled Lymph # (Auto) Cancelled Clinch # (Auto) Cancelled Eos # (Auto) Cancelled Baso # (Auto) Cancelled Immature Gran # (Auto) Cancelled Absolute Nucleated RBC Cancelled Nucleated RBC % (auto) Cancelled Neutrophils % (Manual) Cancelled Band Neutrophils % Cancelled Lymphocytes % (Manual) Cancelled Prolymphocyte % Cancelled Reactive Lymphs % (Man) Cancelled Monocytes % (Manual) Cancelled Eosinophils % (Manual) Cancelled Basophils % (Manual) Cancelled Metamyelocytes % (Man) Cancelled Myelocytes % (Man) Cancelled Promyelocytes % (Man) Cancelled Blast Cells % (Manual) Cancelled Plasma Cell % (Manual) Cancelled Other Cells % Cancelled Nucleated RBC % Cancelled Neutrophils # (Manual) Cancelled Band Neutrophils # Cancelled Total Absolute Neuts Cancelled Lymphocytes # (Manual) Cancelled Prolymphocyte # Cancelled Reactive Lymphs # Cancelled Total Abs Lymphocytes Cancelled Monocytes # (Manual) Cancelled Eosinophils # (Manual) Cancelled Basophils # (Manual) Cancelled Metamyelocytes # (Man) Cancelled Myelocytes # (Manual) Cancelled Promyelocytes # (Man) Cancelled Blast Cells # (Man) Cancelled Plasma Cell # (Manual) Cancelled Other Cells # Cancelled Nucleated RBCs # (Man) Cancelled Hypersegmented Neuts Cancelled Hyposegmented Neuts Cancelled Hypogranular Neuts Cancelled Large Granular Lymphs Cancelled # Lrg Granular Lymphs Cancelled Hairy Cells Cancelled Smudge Cells Cancelled Toxic Granulation Cancelled Toxic Vacuolation Cancelled Dohle Bodies Cancelled Kieran Rods Cancelled Platelet Estimate Cancelled Hypogranular Platelets Cancelled Clumped Platelets Cancelled Giant Platelets Cancelled Platelet Satelliting Cancelled RBC Morphology Cancelled Polychromasia Cancelled Hypochromasia Cancelled Poikilocytosis Cancelled Basophilic Stippling Cancelled Anisocytosis Cancelled Microcytosis Cancelled Macrocytosis Cancelled Spherocytes Cancelled Pappenheimer Bodies Cancelled Sickle Cells Cancelled Target Cells Cancelled Tear Drop Cells Cancelled Ovalocytes Cancelled Stomatocytes Cancelled Miranda-[place] Bodies Cancelled Echinocytes Cancelled Acanthocytes (Spur) Cancelled Rouleaux Cancelled RBC Agglutinates Cancelled Schistocytes Cancelled RBC Morph Comment Cancelled Sezary Cell Cancelled Sodium 136 (136-145) mmol/L Potassium 4.5 (3.5-5.1) mmol/L Chloride 106 (98-107) mmol/L Carbon Dioxide 25 (21-32) mmol/L Anion Gap 5.0 (3-11) BUN 26 H (7-18) mg/dl Creatinine 0.90 (0.6-1.2) mg/dl Est Cr Clr Drug Dosing 75.6 ml/min Est GFR ( Amer) 76.7 Est GFR (Non-Af Amer) 66.2 BUN/Creatinine Ratio 29.4 H (10-20) Glucose 110 H (70-99) mg/dl Calcium 8.8 (8.5-10.1) mg/dl Phosphorus 3.0 (2.5-4.9) mg/dl Magnesium 2.0 (1.8-2.4) mg/dl Total Bilirubin 0.8 (0.2-1) mg/dl Direct Bilirubin 0.3 H (0-0.2) mg/dl AST 20 (15-37) U/L ALT 28 (12-78) U/L Alkaline Phosphatase 208 H (45-117) U/L Troponin I < 0.015 (0-0.045) ng/ml Total Protein 7.1 (6.4-8.2) gm/dl Albumin 3.4 (3.4-5.0) gm/dl Globulin 3.7 (2.5-4.0) gm/dl Albumin/Globulin Ratio 0.9 (0.9-2) Lipase 47 L (73-393) U/L COVID-19 Eval Order SARS-CoV-2, RNA, NAAT (NEGATIVE) Blood Type A Positive Antibody Screen NEGATIVE Crossmatch See Detail 12/26/20 12/26/20 12/26/20 Range/Units 15:52 15:52 16:13 WBC 0.97 L* RBC 1.51 L Hgb 4.3 L* Hct 13.8 L* MCV 91.4 MCH 28.5 MCHC 31.2 L RDW Std Deviation 74.5 H RDW Coeff of Patrica 22.2 H Plt Count 6 L* MPV Immature Gran % (Auto) 2.1 Neut % (Auto) 40.1 Lymph % (Auto) 52.6 Clinch % (Auto) 2.1 Eos % (Auto) 3.1 Baso % (Auto) 0.0 Neut # (Auto) 0.39 L* Lymph # (Auto) 0.51 L Clinch # (Auto) 0.02 L Eos # (Auto) 0.03 Baso # (Auto) 0.00 Immature Gran # (Auto) 0.02 Absolute Nucleated RBC Nucleated RBC % (auto) Neutrophils % (Manual) Band Neutrophils % Lymphocytes % (Manual) Prolymphocyte % Reactive Lymphs % (Man) Monocytes % (Manual) Eosinophils % (Manual) Basophils % (Manual) Metamyelocytes % (Man) Myelocytes % (Man) Promyelocytes % (Man) Blast Cells % (Manual) Plasma Cell % (Manual) Other Cells % Nucleated RBC % Neutrophils # (Manual) Band Neutrophils # Total Absolute Neuts Lymphocytes # (Manual) Prolymphocyte # Reactive Lymphs # Total Abs Lymphocytes Monocytes # (Manual) Eosinophils # (Manual) Basophils # (Manual) Metamyelocytes # (Man) Myelocytes # (Manual) Promyelocytes # (Man) Blast Cells # (Man) Plasma Cell # (Manual) Other Cells # Nucleated RBCs # (Man) Hypersegmented Neuts Hyposegmented Neuts Hypogranular Neuts Large Granular Lymphs # Lrg Granular Lymphs Hairy Cells Smudge Cells Toxic Granulation Toxic Vacuolation Dohle Bodies Kieran Rods Platelet Estimate Hypogranular Platelets Clumped Platelets Giant Platelets Platelet Satelliting RBC Morphology Polychromasia Hypochromasia Present Poikilocytosis Basophilic Stippling Anisocytosis Present Microcytosis Macrocytosis Spherocytes Pappenheimer Bodies Sickle Cells Target Cells Tear Drop Cells Ovalocytes Stomatocytes Miranda-[place] Bodies Echinocytes Acanthocytes (Spur) Rouleaux RBC Agglutinates Schistocytes RBC Morph Comment Sezary Cell Sodium (136-145) mmol/L Potassium (3.5-5.1) mmol/L Chloride (98-107) mmol/L Carbon Dioxide (21-32) mmol/L Anion Gap (3-11) BUN (7-18) mg/dl Creatinine (0.6-1.2) mg/dl Est Cr Clr Drug Dosing ml/min Est GFR ( Amer) Est GFR (Non-Af Amer) BUN/Creatinine Ratio (10-20) Glucose (70-99) mg/dl Calcium (8.5-10.1) mg/dl Phosphorus (2.5-4.9) mg/dl Magnesium (1.8-2.4) mg/dl Total Bilirubin (0.2-1) mg/dl Direct Bilirubin (0-0.2) mg/dl AST (15-37) U/L ALT (12-78) U/L Alkaline Phosphatase (45-117) U/L Troponin I (0-0.045) ng/ml Total Protein (6.4-8.2) gm/dl Albumin (3.4-5.0) gm/dl Globulin (2.5-4.0) gm/dl Albumin/Globulin Ratio (0.9-2) Lipase (73-393) U/L COVID-19 Eval [facility] SARS-CoV-2, RNA, NAAT NEGATIVE (NEGATIVE) Blood Type Antibody Screen Crossmatch Administered Medications Lorazepam (Lorazepam 0.5 Mg Tab) 0.5 mg PO BID ADINA Stop: 01/25/21 20:59 Last Admin: 12/26/20 20:35 Dose: 0.5 mg Documented by: [id number] Pantoprazole Sodium (Pantoprazole 40 Mg Tab) 40 mg PO BID ADINA Stop: 01/25/21 20:59 Last Admin: 12/26/20 20:34 Dose: 40 mg Documented by: [id number] Sotalol HCl (Sotalol Hcl 80 Mg Tab) 80 mg PO BID ADINA Stop: 01/25/21 20:59 Last Admin: 12/26/20 20:34 Dose: 80 mg Documented by: [id number] Discontinued Medications Furosemide 20 mg/ Syringe 2 mls @ 4 mls/min IV NOW ONE Stop: 12/26/20 20:01 Last Admin: 12/26/20 20:32 Dose: 4 mls/min Documented by: [id number] Discharge Plan Visit Data Chief Complaint: Abnormal Labs/Diagnostic Testing Stated Complaint: SOB,PT ON CHEMO ED Provider: Darrell Huff Discharge Problem: Symptomatic anemia, Ovarian cancer, Thrombocytopenia, Neutropenia Patient Disposition: Admitted As Inpatient Discharge Instructions Interventions: ED Discharge Assessment Last Done: 12/26/20 18:58 Discharge Problem: Ovarian cancer Qualifiers: Laterality: unspecified laterality Qualified Code(s): C56.9 - Malignant neoplasm of unspecified ovary Neutropenia Qualifiers: Neutropenia type: unspecified Qualified Code(s): D70.9 - Neutropenia, unspecified
--- NOTE | 2020-12-26 15:44 | XRay Report ---
XR chest 1V portable HISTORY: 65 years-old Female Chest Pain acute atypical chest pain COMPARISON: Chest radiograph and CTA chest 11/28/2020 TECHNIQUE: Portable AP view of the chest. FINDINGS: Cardiac silhouette is upper limits of normal in size. Left subclavian pacer. Right subclavian Infuse- a-Port catheter. No pneumothorax, pleural effusion or lobar airspace consolidation. Unchanged interst itial coarsening. Degenerative changes of the shoulders and spine. IMPRESSION: Chronic interstitial coarsening without acute process identified. ACT 112: Negative or not required by law. The above report was generated using voice recognition software. It may contain grammatical, syntax o r spelling errors. Electronically signed by: Chas Luong M.D. 12/26/2020 3:43 PM
[2020-12-26 15:58] LABS: Albumin Level 3.4 gm/dl (3.4-5.0); BUN Creatinine Ratio 29.4 (10-20); Blood Urea Nitrogen 26 mg/dl (7-18); Calcium 8.8 mg/dl (8.5-10.1); Carbon Dioxide 25 mmol/L (21-32); Chloride 106 mmol/L (98-107); Creatinine Clr Calc Pharmacy 75.6 ml/min; Est GFR (African American) 76.7; Est GFR (Non-African American) 66.2; Glucose 110 mg/dl (70-99); Lipase 47 U/L (73-393); Potassium 4.5 mmol/L (3.5-5.1); Sodium 136 mmol/L (136-145)
[2020-12-26 16:02] LABS: Alanine Aminotransferase 28 U/L (12-78); Albumin Globulin Ratio 0.9 (0.9-2); Alkaline Phosphatase 208 U/L (45-117); Aspartate Aminotransferase 20 U/L (15-37); Bilirubin Direct 0.3 mg/dl (0-0.2); Bilirubin,Total 0.8 mg/dl (0.2-1); Globulin 3.7 gm/dl (2.5-4.0); Total Protein 7.1 gm/dl (6.4-8.2); Troponin I < 0.015 ng/ml (0-0.045)
--- NOTE | 2020-12-26 16:22 | History & Physical Report ---
Date of Service December 26, 2020 Assessment & Plan (1) Pancytopenia: Ovarian Cancer Pt is 65 y/o F with PMH sick sinus syndrome s/p pacemaker, ovarian cancer s/p surgery and currently on chemo, BERRY intolerant to CPAP presented to ER for abnormal labs of pancytopenia. Todays outpatient labs: WBC: 1.38, Hgb: 4.7, Plt<10, ANC: 0.48. 12/19/20 labs: WBC: 2.0, Hgb: 7.2, Plt: [address] Marion. Last treatment 12/12/20 -carboplatin In ER WBC: 0.97, H/H: 4.3/13.8, Plt: 6, ANC: 388 Pancytopenia likely secondary to chemo Type and Cross and transfuse 2 units PRBCs, 1 unit Platelets. Repeat CBC to determine further transfusion Peripheral smear with next blood draw Neutropenic precautions Monitor for fever and if occurs start antibiotics Monitor CBC Sick sinus syndrome: S/P pacemaker Continue sotalol BERRY: Intolerant to CPAP DVT Prophylaxis -Teds for now secondary to anemia, thrombocytopenia Full Code as per discussion with pt Follows with Dr Whatley for routine care Pt was seen and care coordinated with Dr Dixon. See addendum History of Present Illness Chief Complaint: abnormal labs Primary Care Provider: Sabra Whatley, Pt is 65 y/o F with PMH sick sinus syndrome s/p pacemaker, ovarian cancer s/p surgery and currently on chemo, BERRY intolerant to CPAP presented to ER for abnormal labs - pancytopenia. WBC: 1.38, Hgb: 4.7, Plt<10, ANC: 0.48. Pt on carboplatin Q3 weeks. Last treatment 12/12/20. She has had weekly labs with downtrending WBC, Hgb and Plt. Pt states past week has been having fatigue, generalized weakness, SOB on exertion. Denies any epistaxis, melena, hematochezia, vaginal bleeding. Denies fever/chills, diaphoresis, N/V/D/C, BOX, dizziness, syncope, vision changes, neck pain, CP, orthopnea, palpitations, cough, sore throat, choking, otalgia, rhinorrhea, abdominal pain, paresthesias, extremity edema, rashes, urinary symptoms. Allergies Allergy/AdvReac Type Severity Reaction Status Date / Time levofloxacin Allergy Intermediate LE Verified 10/22/20 09:43 swelling and blistering tramadol Allergy Mild Rash Verified 10/22/20 09:43 clindamycin AdvReac Intermediate PT Verified 10/22/20 09:43 CONTRACTED C-DIFF adhesive AdvReac Mild SKIN Verified 10/22/20 09:43 BLISTERS SOME TIMES shellfish derived AdvReac Mild NAUSEA,DIARRHEA, Verified 10/22/20 09:43 VOMITING doxorubicin AdvReac Hypoxia Verified 11/28/20 18:55 Home Medications Medication Instructions Recorded Confirmed Type docusate sodium [Colace] 100 mg PO BID PRN 10/18/18 12/26/20 History lorazepam 0.5 mg PO BID 10/18/18 12/26/20 History sertraline [Zoloft] 100 mg PO QAM 10/18/18 12/26/20 History cyclobenzaprine 5 mg PO BID PRN 08/25/19 12/26/20 History naproxen sodium 220 mg tablet 220 mg PO BID PRN 04/12/20 12/26/20 History omeprazole 20 mg capsule,delayed 20 mg PO BID 04/12/20 12/26/20 History release cholecalciferol (vitamin D3) 50 2,000 units PO QAM #90 tab 04/16/20 12/26/20 Rx mcg (2,000 unit) tablet folic acid 1 mg PO QAM 05/08/20 12/26/20 History fosfomycin tromethamine [Monurol] 3 g PO WK 10/01/20 12/26/20 History hydrochlorothiazide 25 mg PO QAM 10/01/20 12/26/20 History sotalol 80 mg PO BID 10/01/20 12/26/20 History Past Med/Surg History Medical History Anemia S/p blood transfusion 05/2020 Hgb baseline 8-9 Anxiety and depression Atrial fibrillation No AC due to GI bleed and anemia Chronic right-sided HF (heart failure) Likely per cardio secondary to obesity hypo ventilatory syndrome/Pickwickian CKD (chronic kidney disease), stage III GERD (gastroesophageal reflux disease) History of kidney stones 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 HTN (hypertension) On home oxygen therapy 2L/MIN NC PRN SOB BERRY (obstructive sleep apnea) On nocturnal O2- could not tolerate CPAP per records Osteoarthritis Ovarian cancer 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 WELSH) Restless leg syndrome Sick sinus syndrome Spinal stenosis HX Surgical History H/O arthroscopy of knee H/O cystoscopy H/O gastric bypass "1980, reversed in same year" History of appendectomy (~09/07/20) History of arthroscopy LEFT KNEE History of colonoscopy History of ERCP (~09/2020) History of esophagogastroduodenoscopy (EGD) History of herniorrhaphy VENTRAL HERNIA REPAIR= 04/27/17= GRADE VIEW 2, CLEMENTE#2, ETT 7.0 AT [facility] History of lithotripsy History of tonsillectomy History of total hysterectomy with bilateral salpingo-oophorectomy (BSO) (~09/07/20) [place] [facility] [place] [facility] [place] same time [place] teeth removed Family History Mother Scleroderma Lupus Family history of reaction to anesthesia nausea Father Coronary heart disease Brother Fatty liver Aunt Cancer unspecified Grandfather (Paternal) Heart disease Grandfather (Maternal) Lung disease Grandmother (Paternal) Stroke Grandmother (Maternal) Family history of diabetes mellitus Social History Smoking Status: Former smoker Tobacco Type: Cigarettes Number of Years Since Quit: 20; Second Hand Exposure: Yes (ex smoked); Hx Alcohol Use: No Hx Substance Use: No Preferred Language: Czech Communication Ability: Effective Visual Impairment: No Limitations News Gathering Technician Required: No Beliefs That Will Affect Care: None marital status: Current Living Situation: Alone Feels Safe at Home: Yes Safety Concerns: Feels Safe At This Time Assistive Devices: None Review of Systems Review of Systems: All systems reviewed & are unremarkable except as noted in HPI & below Physical Exam Physical Exam: General: no distress, appears fatigued, obese Head: normocephalic, atraumatic Eyes: conjunctiva pale, anicteric ENT: normal inspection external ears, nose, mucous membranes moist Neck: supple, trachea midline, non-tender Lungs: clear, no respiratory distress, no wheezing/rhonchi/rales CV: RRR, no murmur, no pretibial edema Abd: +incision middle of abdomen, inferior aspect incision with healing dehiscence without surrounding erythema and without discharge, normal BS, soft, non-tender Ext: no cyanosis, no calf tenderness Neuro: A&O x 3, no focal deficits noted, normal affect Skin: pale, +scattered petechiae, +scattered ecchymosis, warm, dry Results & Data Results & Data ([facility]) Vital Signs (Past 12 Hours) Vital Signs Temp Pulse Resp BP Pulse Ox 12/26/20 15:15 91 12/26/20 14:44 35.7 C L 66 18 141/56 H 93 Laboratory Results Short CBC 12/26/20 12/26/20 12/26/20 Range/Units 15:20 15:20 16:13 WBC Cancelled 0.97 L* Hgb Cancelled 4.3 L* Hct Cancelled 13.8 L* Plt Count Cancelled 6 L* BUN 26 H (7-18) mg/dl Creatinine 0.90 (0.6-1.2) mg/dl Alkaline Phosphatase 208 H (45-117) U/L BMP 12/26/20 15:20 Sodium 136 Potassium 4.5 Chloride 106 Carbon Dioxide 25 BUN 26 H Creatinine 0.90 Glucose 110 H Calcium 8.8 Cardiac Enzymes 12/26/20 Range/Units 15:20 Troponin I < 0.015 (0-0.045) ng/ml Liver Function 12/26/20 Range/Units 15:20 Total Bilirubin 0.8 (0.2-1) mg/dl Direct Bilirubin 0.3 H (0-0.2) mg/dl AST 20 (15-37) U/L ALT 28 (12-78) U/L Alkaline Phosphatase 208 H (45-117) U/L Albumin 3.4 (3.4-5.0) gm/dl Diagnostic Findings CXR: IMPRESSION: Chronic interstitial coarsening without acute process identified. Supervising Physician Co-Signing Physician Notes Patient is a 65-year-old female with history of sick sinus syndrome, ovarian cancer currently undergoing chemotherapy, obstructive sleep apnea and other medical problems presents for evaluation of abnormal labs. Patient had outpatient blood work which showed pancytopenia and was sent to ED for further evaluation. Patient had last chemotherapy about 2 weeks ago. She admits to having generalized tiredness and weakness and some dyspnea on exertion. Denies any bleeding issues. Also denies chest pain. Patient denies any recent infections, fever, chills. Please review HPI for complete details of presentation. His white blood cell count is 0.97. Hemoglobin 4.3. Hematocrit 13.8. Platelet count 6000. Absolute neutrophil count 390. On exam patient is morbidly obese, no apparent distress, normocephalic atraumatic, lungs are clear to auscultation, normal breath sounds, S1-S2,+ Chemo-Port on right side of the chest, no audible murmur, abdomen soft, nontender, normal bowel sounds, alert, awake, oriented, grossly no focal neurological deficits,+ pallor. Patient is admitted for management of pancytopenia secondary to chemotherapy for ovarian cancer. Will transfuse PRBCs and platelets as needed. Monitor CBC. Placed on neutropenic precautions. Consider empiric antibiotics with patient's daughter fever. Will discuss with oncology as needed. Also check peripheral smear. I personally reviewed the record. Patient is interviewed and examined at bedside. Patient's care is coordinated with Ginger Argueta PA-C. Please refer to the documentation above for details of patient's presentation and for discussion of other issues.
[2020-12-26 16:39] LABS: Hematocrit (blood only) 13.8 % (37-47); Hemoglobin 4.3 g/dL (12.0-16.0); Mean Corpuscular Hemoglobin 28.5 pg (25-34); Mean Corpuscular Hgb Conc 31.2 g/dL (32-36); Mean Corpuscular Volume 91.4 fL (80-100); Platelet Count 6 K/uL (130-400); RDW Coefficient of Variation 22.2 % (11.5-14.5); RDW Standard Deviation 74.5 fL (36.4-46.3); Red Blood Count 1.51 M/uL (4.2-5.4); White Blood Count 0.97 K/uL (4.8-10.8)
[2020-12-26 16:42] LABS: Anisocytosis Present; Eosinophils # (auto) 0.03 K/uL (0-0.5); Eosinophils % (auto) 3.1 %; Hypochromasia Present; Immature Granulocytes # (auto) 0.02 K/uL (0.00-0.02); Immature Granulocytes % (auto) 2.1 %; Lymphocytes # (auto) 0.51 K/uL (1.2-3.4); Lymphocytes % (auto) 52.6 %; Monocytes # (auto) 0.02 K/uL (0.11-0.59); Monocytes % (auto) 2.1 %; Neutrophils % (auto) 40.1 %
[2020-12-26] MEDS ORDERED: FUROSEMIDE 40 MG/4 ML VIAL IV ONE (19:34)
[2020-12-26] MEDS ORDERED: FUROSEMIDE 20 MG in SYRINGE 0 ML IV ONE (20:00)
[2020-12-26] MEDS: SOTALOL HCL 80 MG TAB PO SCH (20:34)
[2020-12-26] MEDS: PANTOprazole 40 MG TAB PO SCH (20:34)
[2020-12-26] MEDS: LORazepam 0.5 MG TAB PO SCH (20:35)
[2020-12-27 06:10] LABS: BUN Creatinine Ratio 32.8 (10-20); Creatinine Clr Calc Pharmacy 78.5 ml/min; Est GFR (African American) 77.7; Est GFR (Non-African American) 67.1; Potassium 4.1 mmol/L (3.5-5.1)
[2020-12-27 06:21] LABS: Hematocrit (blood only) 16.6 % (37-47); Hemoglobin 5.4 g/dL (12.0-16.0); Mean Corpuscular Hemoglobin 28.9 pg (25-34); Mean Corpuscular Hgb Conc 32.5 g/dL (32-36); Mean Corpuscular Volume 88.8 fL (80-100); Platelet Count 4 K/uL (130-400); RDW Coefficient of Variation 20.5 % (11.5-14.5); RDW Standard Deviation 67.2 fL (36.4-46.3); Red Blood Count 1.87 M/uL (4.2-5.4); White Blood Count 0.84 K/uL (4.8-10.8)
[2020-12-27 06:23] LABS: Anisocytosis Present; Eosinophils # (auto) 0.02 K/uL (0-0.5); Eosinophils % (auto) 2.4 %; Lymphocytes # (auto) 0.46 K/uL (1.2-3.4); Lymphocytes % (auto) 54.8 %; Monocytes # (auto) 0.02 K/uL (0.11-0.59); Monocytes % (auto) 2.4 %; Neutrophils # (auto) 0.34 K/uL (1.4-6.5); Neutrophils % (auto) 40.4 %
[2020-12-27] MEDS ORDERED: SODIUM CHLORIDE 0.9% 250 ML IV PRN (06:25)
--- NOTE | 2020-12-27 06:26 | Electrocardiogram Report ---
Test Reason : Blood Pressure : / mmHG Vent. Rate : 066 BPM Atrial Rate : 066 BPM P-R Int : 142 ms QRS Dur : 092 ms QT Int : 460 ms P-R-T Axes : 038 004 051 degrees QTc Int : 482 ms Normal sinus rhythm Minimal voltage criteria for LVH, may be normal variant Nonspecific ST abnormality Abnormal ECG When compared with ECG of 28-NOV-2020 16:08, No significant change was found Confirmed by Toan Carrion ([id number]) on 12/27/2020 6:26:28 AM Referred By: REFERRED SELF Confirmed By:Toan Carrion
[2020-12-27] MEDS ORDERED: ACETAMINOPHEN 325 MG TAB PO ONE (07:30)
[2020-12-27] MEDS: SERTRALINE HCL 100 MG TABLET PO SCH (08:43)
[2020-12-27] MEDS: LORazepam 0.5 MG TAB PO SCH ×2 (08:43→20:04)
[2020-12-27] MEDS: PANTOprazole 40 MG TAB PO SCH ×2 (08:43→20:05)
[2020-12-27] MEDS: SOTALOL HCL 80 MG TAB PO SCH ×2 (08:44→20:04)
[2020-12-27] MEDS: FOLIC ACID 1 MG TAB PO SCH (08:44)
[2020-12-27] MEDS: CHOLECALCIFEROL 1,000 UNITS 25 MCG TAB PO SCH (08:44)
[2020-12-27] MEDS: hydroCHLOROthiazide 25 MG TAB PO SCH (08:44)
[2020-12-27] MEDS ORDERED: FUROSEMIDE 20 MG in SYRINGE 0 ML IV ONE (10:00)
[2020-12-27 11:17] LABS: Neutrophils # (auto) 0.39 K/uL (1.4-6.5)
--- NOTE | 2020-12-27 19:11 | Hospitalist Progress Note ---
Date of Service December 27, 2020 Assessment & Plan (1) Pancytopenia: Ovarian Cancer Profound anemia due to recent chemo tx : Pt is 65 y/o F with PMH sick sinus syndrome s/p pacemaker, ovarian cancer s/p surgery and currently on chemo, BERRY intolerant to CPAP presented to ER for abnormal labs of pancytopenia. outpatient labs: WBC: 1.38, Hgb: 4.7, Plt<10, ANC: 0.48. Follows with Dr Marion. Last treatment 12/12/20 -carboplatin In ER WBC: 0.97, H/H: 4.3/13.8, Plt: 6, ANC: 388 Pancytopenia likely secondary to chemo pt received total 4 units of PRBC tx repeat H&H in evening :hb improved 7 , platelet count 15 ( s/p 1 unit platelet transfusion ) repeat CBC in am transfuse for HB < 7 or with symptoms , Platelet count < 10 or higher level if there is evidence of bleeding avoid all antiplatelets and anticoagulation Sick sinus syndrome: S/P pacemaker Continue sotalol BERRY: Intolerant to CPAP DVT Prophylaxis -Teds for now secondary to anemia, thrombocytopenia Full Code as per discussion with pt Follows with Dr Whatley for routine care possible dc home in am if clinically remains stable /labs : anemia and thrombocytopenia -improved /stable PT/Ot eval prior to discharge home Admission and Anticipated Discharge Date Admission Date: December 26, 2020 Subjective follow up visit for symptomatic anemia /ovarian ca on chemo: pt reports of feeling a bit better still feels weak, improvement of dizzy spell and lightheadedness SOB , VINSON has improved Review of Systems Review of Systems: All systems reviewed & are unremarkable except as noted in Subjective Physical Exam Physical Exam: General: no distress, appears fatigued, obese Head: normocephalic, atraumatic Eyes: conjunctiva pale, anicteric ENT: normal inspection external ears, nose, mucous membranes moist Neck: supple, trachea midline, non-tender Lungs: clear, no respiratory distress, no wheezing/rhonchi/rales CV: RRR, no murmur, no pretibial edema Abd: +incision middle of abdomen, inferior aspect incision with healing dehiscence without surrounding erythema and without discharge, normal BS, soft, non-tender Ext: no cyanosis, no calf tenderness Neuro: A&O x 3, no focal deficits noted, normal affect Skin: pale, +scattered petechiae, +scattered ecchymosis, warm, dry Results & Data Results & Data ([facility]) Vital Signs (Past 12 Hours) Vital Signs Temp Pulse Resp BP Pulse Ox 12/27/20 16:30 36.5 C 68 18 134/77 90 12/27/20 16:07 36.5 C 64 18 147/78 H 90 12/27/20 16:00 66 12/27/20 15:37 36.5 C 64 18 120/54 L 90 12/27/20 15:22 36.6 C 64 18 120/54 L 92 12/27/20 15:06 36.5 C 65 18 129/76 90 12/27/20 14:37 36.5 C 65 20 136/79 87 L 12/27/20 14:10 36.5 C 65 18 129/76 90 12/27/20 13:40 36.5 C 68 18 118/75 90 12/27/20 13:25 36.5 C 65 18 112/68 90 12/27/20 13:08 36.2 C L 70 18 122/62 90 12/27/20 12:17 36.7 C 64 20 130/67 90 12/27/20 12:11 36.6 C 63 20 124/57 L 91 12/27/20 11:11 36.5 C 69 20 131/71 87 L 12/27/20 10:41 36.6 C 63 20 144/77 H 90 12/27/20 10:30 36.4 C L 76 18 166/75 H 87 L 12/27/20 10:26 36.4 C L 76 18 166/75 H 90 12/27/20 10:10 36.8 C 64 18 148/69 H 90 12/27/20 09:50 36.8 C 66 18 153/65 H 90 12/27/20 09:47 36.7 C 75 18 153/65 H 90 12/27/20 08:55 36.7 C 73 18 129/56 L 90 12/27/20 08:32 67 12/27/20 07:55 36.5 C 70 18 143/80 H 90 12/27/20 07:25 36.5 C 70 18 120/63 90 12/27/20 07:10 36.2 C L 68 18 135/72 92
[2020-12-27] MEDS: ACETAMINOPHEN 325 MG TAB PO PRN (20:04)
[2020-12-27 20:34] LABS: Hematocrit (blood only) 20.7 % (37-47); Mean Corpuscular Hemoglobin 29.3 pg (25-34); Mean Corpuscular Hgb Conc 33.8 g/dL (32-36); Mean Corpuscular Volume 86.6 fL (80-100); Platelet Count 15 K/uL (130-400); Platelet Estimate SIGNIFIC DECREASED (Normal); RDW Coefficient of Variation 18.8 % (11.5-14.5); RDW Standard Deviation 59.3 fL (36.4-46.3); Red Blood Count 2.39 M/uL (4.2-5.4); White Blood Count 0.86 K/uL (4.8-10.8)
[2020-12-28] MEDS: LORazepam 0.5 MG TAB PO SCH ×2 (08:39→20:49)
[2020-12-28] MEDS: SOTALOL HCL 80 MG TAB PO SCH ×2 (08:40→20:51)
[2020-12-28] MEDS: FOLIC ACID 1 MG TAB PO SCH (08:40)
[2020-12-28] MEDS: PANTOprazole 40 MG TAB PO SCH ×2 (08:40→20:51)
[2020-12-28] MEDS: hydroCHLOROthiazide 25 MG TAB PO SCH (08:40)
[2020-12-28] MEDS: CHOLECALCIFEROL 1,000 UNITS 25 MCG TAB PO SCH (08:40)
[2020-12-28] MEDS: SERTRALINE HCL 100 MG TABLET PO SCH (08:40)
[2020-12-28 09:40] LABS: Hemoglobin 6.9 g/dL (12.0-16.0); Mean Corpuscular Hemoglobin 28.5 pg (25-34); Mean Corpuscular Hgb Conc 32.9 g/dL (32-36); Mean Corpuscular Volume 86.8 fL (80-100); Platelet Count 14 K/uL (130-400); RDW Coefficient of Variation 18.6 % (11.5-14.5); RDW Standard Deviation 59.4 fL (36.4-46.3); Red Blood Count 2.42 M/uL (4.2-5.4); White Blood Count 0.82 K/uL (4.8-10.8)
[2020-12-28 09:47] LABS: Platelet Estimate SIGNIFIC DECREASED (Normal)
[2020-12-28] MEDS ORDERED: SODIUM CHLORIDE 0.9% 250 ML IV PRN (10:58)
[2020-12-28] MEDS ORDERED: ACETAMINOPHEN 500 MG TAB PO SCH (11:00)
--- NOTE | 2020-12-28 11:08 | Communication Note ---
Date of Service: December 28, 2020 AM lab reviewed: Hemoglobin 6.9/hematocrit 21, Patient is status post 4 unit of PRBC transfusion, Complains of dyspnea on exertion. Hypoxia at rest, Ordered for 1 more unit of PRBC transfusion Two-step exercise to assess home oxygen need Thrombocytopenia: Secondary to chemo induced Platelet count remains stable 14 No evidence of bleeding No need for platelet transfusion, Monitor CBC closely. Rebecca Damon MD
[2020-12-28] MEDS ORDERED: FUROSEMIDE 20 MG in SYRINGE 0 ML IV SCH (12:00)
--- NOTE | 2020-12-28 13:01 | Hospitalist Progress Note ---
Date of Service December 28, 2020 Assessment & Plan (1) Pancytopenia: Ovarian Cancer Profound anemia due to recent chemo tx : Pt is 65 y/o F with PMH sick sinus syndrome s/p pacemaker, ovarian cancer s/p surgery and currently on chemo, BERRY intolerant to CPAP presented to ER for abnormal labs of pancytopenia. outpatient labs: WBC: 1.38, Hgb: 4.7, Plt<10, ANC: 0.48. Follows with Dr Marion. Last treatment 12/12/20 -carboplatin In ER WBC: 0.97, H/H: 4.3/13.8, Plt: 6, ANC: 388 Pancytopenia likely secondary to chemo pt received total 4 units of PRBC tx am labs shows Hb 6.9 pt reports of symptoms of Dizzy spell and VINSON ordered 1 more unit of PRBC to be transfused, repeat CBC in am platelet count remains above 10 , no bleeding episode cont to monitor Acute Hypoxemic resp failure : due to severe symptomatic anemia noted have dizzy spell/lightheadedness , desaturation noted in room air with exertion no fever or chills or cough correction of anemia as above cont supplemental 02 to keep Spo2 > 95% pt reports she already has home 02 Sick sinus syndrome: S/P pacemaker Continue sotalol BERRY: Intolerant to CPAP DVT Prophylaxis -Teds for now secondary to anemia, thrombocytopenia Full Code as per discussion with pt Follows with Dr Whatley for routine care cont to monitor in tele dc home when clinically remains stable /labs : anemia and thrombocytopenia - improved /stable PT/Ot eval prior to discharge home plan of care discussed with patient , all questions answered Admission and Anticipated Discharge Date Admission Date: December 26, 2020 Subjective follow up visit for symptomatic anemia /ovarian ca on chemo: complains of feeling VINSON , felt dizzy and lightheaded while walking back to bed from bathroom no syncope or fall spo2 drops to 84% in RA with exertion receiving PRBC transfusion now worried about returning home too early/may have to return back to ER over weekend if her blood count started to drop again pt is counselled , she will not be discharged till her anemia , symptoms are improved cont to monitor in tele Her Heme /Onc Dr Marion contacted -recommends to keep Hb > 7 , pt gets severely symptomatic @ hb 7 or less Review of Systems Review of Systems: All systems reviewed & are unremarkable except as noted in HPI & below Physical Exam Physical Exam: General: no distress, appears fatigued, obese Head: normocephalic, atraumatic Eyes: conjunctiva pale, anicteric ENT: normal inspection external ears, nose, mucous membranes moist Neck: supple, trachea midline, non-tender Lungs: clear, no respiratory distress, no wheezing/rhonchi/rales CV: RRR, no murmur, no pretibial edema Abd: +incision middle of abdomen, inferior aspect incision with healing dehiscence without surrounding erythema and without discharge, normal BS, soft, non-tender Ext: no cyanosis, no calf tenderness Neuro: A&O x 3, no focal deficits noted, normal affect Skin: pale, +scattered petechiae, +scattered ecchymosis, warm, dry Results & Data Results & Data ([facility]) Vital Signs (Past 12 Hours) Vital Signs Temp Pulse Pulse Pulse Resp BP BP 12/28/20 12:14 36.9 C 66 18 127/74 12/28/20 11:50 37 C 67 18 142/81 H 12/28/20 10:36 36.7 C 67 72 16 131/70 12/28/20 08:14 36.4 C L 71 19 149/59 H 12/28/20 03:03 36.7 C 83 16 124/73 Pulse Ox 12/28/20 12:14 92 12/28/20 11:50 92 12/28/20 10:36 90 12/28/20 08:14 92 12/28/20 03:03 99
[2020-12-28] MEDS ORDERED: HEPARIN 100 UNIT/ML 5ML FLUSH ONE (17:19)
[2020-12-28] MEDS: ACETAMINOPHEN 325 MG TAB PO PRN (21:26)
[2020-12-29] MEDS: PANTOprazole 40 MG TAB PO SCH ×2 (08:20→20:06)
[2020-12-29] MEDS: SOTALOL HCL 80 MG TAB PO SCH ×2 (08:20→20:06)
[2020-12-29] MEDS: LORazepam 0.5 MG TAB PO SCH ×2 (08:22→20:04)
[2020-12-29] MEDS: FOLIC ACID 1 MG TAB PO SCH (08:22)
[2020-12-29] MEDS: hydroCHLOROthiazide 25 MG TAB PO SCH (08:22)
[2020-12-29] MEDS: CHOLECALCIFEROL 1,000 UNITS 25 MCG TAB PO SCH (08:22)
[2020-12-29] MEDS: SERTRALINE HCL 100 MG TABLET PO SCH (08:22)
[2020-12-29] MEDS ORDERED: PHENAZOPYRIDINE HCL 200 MG TAB PO PRN (11:03)
[2020-12-29 11:18] LABS: Platelet Count 9 K/uL (130-400)
[2020-12-29 11:29] LABS: Appearance Urine Clear (Clear); Bacteria Urine Automated 4+ (Negative); Bilirubin Urine Negative (Negative); Blood Urine 1+ (Negative); Color Urine Yellow; Glucose Urine UA Negative (Negative); Ketones Urine Negative (Negative); Leukocyte Esterase Urine 1+ (Negative); Nitrite Urine Positive (Negative); Protein Urine Negative (Negative); Specific Gravity Urine 1.014 (1.000-1.030); Urobilinogen Urine Negative (Negative); WBC Urine Automated >30 /hpf (0-5)
[2020-12-29 11:31] LABS: Hemoglobin 7.6 g/dL (12.0-16.0); Mean Corpuscular Hemoglobin 29.6 pg (25-34); Mean Corpuscular Volume 89.5 fL (80-100); RDW Coefficient of Variation 17.3 % (11.5-14.5); RDW Standard Deviation 56.7 fL (36.4-46.3); Red Blood Count 2.57 M/uL (4.2-5.4); White Blood Count 0.85 K/uL (4.8-10.8)
[2020-12-29] MEDS: cefTRIAXone SODIUM 2,000 MG in DEXTROSE 5% 50 ML IV SCH (12:11)
[2020-12-29] MEDS: HEPARIN 100 UNIT/ML 5ML FLUSH FLUSH PRN (13:00)
--- NOTE | 2020-12-29 15:04 | Communication Note ---
Date of Service: December 29, 2020 complains of urinary frequency /urgency , no nausea /abdominal pain or fever still very SOB with minimum exertion , on 2 L 02 Labs reviewed : Hb 7.6 ( improved ) , platelet count dropped to 8 no bleeding episode noted hx of kidney stone in past , required ureteric stent placement CT /abdomen/Pelvis non contrast for kidney stone , pyelonephritis ordered for UA and culture started on Empiric Abx with IV rocephin Rebecca Damon MD
--- NOTE | 2020-12-29 18:35 | Hospitalist Progress Note ---
Date of Service December 29, 2020 Assessment & Plan (1) Pancytopenia: Ovarian Cancer Profound anemia due to recent chemo tx : Pt is 65 y/o F with PMH sick sinus syndrome s/p pacemaker, ovarian cancer s/p surgery and currently on chemo, BERRY intolerant to CPAP presented to ER for abnormal labs of pancytopenia. outpatient labs: WBC: 1.38, Hgb: 4.7, Plt<10, ANC: 0.48. Follows with Dr Marion. Last treatment 12/12/20 -carboplatin In ER WBC: 0.97, H/H: 4.3/13.8, Plt: 6, ANC: 388 Pancytopenia likely secondary to chemo pt received total 5 units of PRBC tx since admission HB 7.6 platelet count drops 8 , no bleeding episode / repeat CBC in am / Possible UTI : increased frequency , dysuria , hesitancy UA + started on IV rocephin follow urine culture Acute Hypoxemic resp failure : due to severe symptomatic anemia noted have dizzy spell/lightheadedness , desaturation noted in room air with exertion no fever or chills or cough correction of anemia as above cont supplemental 02 to keep Spo2 > 95% pt reports she already has home 02 Sick sinus syndrome: S/P pacemaker Continue sotalol BERRY: Intolerant to CPAP DVT Prophylaxis -Teds for now secondary to anemia, thrombocytopenia Full Code as per discussion with pt Follows with Dr Whatley for routine care cont to monitor in tele dc home when clinically remains stable /labs : anemia and thrombocytopenia - improved /stable PT/Ot eval prior to discharge home plan of care discussed with patient , all questions answered Admission and Anticipated Discharge Date Admission Date: December 26, 2020 Subjective follow up visit for symptomatic anemia /ovarian ca on chemo: complains of Dysuria and increased frequency of urine -like her previous episodes of UTI feeling discomfort on lower abdomen no fever or chills , no nausea or vomiting Review of Systems Genitourinary: + dysuria, + urinary frequency, + urinary hesitancy and + urinary urgency; no flank pain Physical Exam Physical Exam: General: no distress, appears fatigued, obese Head: normocephalic, atraumatic Eyes: conjunctiva pale, anicteric ENT: normal inspection external ears, nose, mucous membranes moist Neck: supple, trachea midline, non-tender Lungs: clear, no respiratory distress, no wheezing/rhonchi/rales CV: RRR, no murmur, no pretibial edema Abd: +incision middle of abdomen, inferior aspect incision with healing dehiscence without surrounding erythema and without discharge, normal BS, soft, non-tender Ext: no cyanosis, no calf tenderness Neuro: A&O x 3, no focal deficits noted, normal affect Skin: pale, +scattered petechiae, +scattered ecchymosis, warm, dry Results & Data Results & Data ([facility]) Vital Signs (Past 12 Hours) Vital Signs Temp Pulse Pulse Resp BP Pulse Ox 12/29/20 15:40 36.9 C 68 19 123/69 93 12/29/20 15:20 65 12/29/20 13:14 93 12/29/20 11:27 36.7 C 66 16 122/58 L 95 12/29/20 10:22 60 12/29/20 07:37 36.6 C 68 19 159/75 H 93
[2020-12-29] MEDS: ACETAMINOPHEN 325 MG TAB PO PRN (18:38)
[2020-12-30] MEDS: FOLIC ACID 1 MG TAB PO SCH (07:47)
[2020-12-30] MEDS: LORazepam 0.5 MG TAB PO SCH ×2 (07:47→21:04)
[2020-12-30] MEDS: hydroCHLOROthiazide 25 MG TAB PO SCH (07:48)
[2020-12-30] MEDS: SOTALOL HCL 80 MG TAB PO SCH ×2 (07:48→21:04)
[2020-12-30] MEDS: PANTOprazole 40 MG TAB PO SCH ×2 (07:48→21:05)
[2020-12-30] MEDS: SERTRALINE HCL 100 MG TABLET PO SCH (07:48)
[2020-12-30] MEDS: CHOLECALCIFEROL 1,000 UNITS 25 MCG TAB PO SCH (07:48)
--- NOTE | 2020-12-30 09:07 | CT Scan Report ---
ABDOMEN AND PELVIS CT WITHOUT CONTRAST CT DOSE: 1395.21 mGy.cm HISTORY: Acute urinary tract infection with history of kidney stones. hx of renal stone /UTI TECHNIQUE: Multiaxial CT images of the abdomen and pelvis were performed without contrast. A dose lo wering technique was utilized adhering to the principles of ALARA. COMPARISON STUDY: CT abdomen and pelvis 10/01/2020, CTA chest 11/28/2020. FINDINGS: Partially imaged pacer leads. Mild cardiomegaly. Coronary artery calcifications. Chronic pa tchy bibasilar groundglass opacities are unchanged from comparison. No pneumatosis or pneumoperitoneu m. The spleen is enlarged measuring up to 18.4 cm in length. Limited evaluation of the solid abdomina l organs without the use of IV contrast. Moderate generalized pancreatic atrophy. Unremarkable adrena l glands. Mildly contracted gallbladder. Mild marginal nodularity of the liver suggestive of cirrhosi s. No hepatic mass lesion identified. Numerous nonobstructing calculi of the bilateral kidneys redemonstrated measuring up to approximately 5 mm on the left and 8 mm on the right. No ureteral calculi or obstructive uropathy. Cortical scarri ng and parenchymal thinning of the anterior interpolar right kidney. 12 mm intermediate density lesio n of the superior pole right kidney with [place]oun[place] of 25 is nonspecific, essentially representing a proteinaceous or hemorrhagic cyst. Decompressed urinary bladder with mild wall thickening. Hysterecto my. No adnexal mass lesion. Calcified plaque of the thoracic aorta. Postoperative changes of the proximal stomach. No bowel obstruction or bowel wall thickening. Moderat e fecal retention. Appendectomy. Postoperative changes of the intra-abdominal wall. Skin thickening w ith subcutaneous edema of the anterior abdominal wall is similar to comparison. Degenerative changes of the spine, pelvis and hips. Lumbar levoscoliosis. No acute fracture. IMPRESSION: 1. Nonobstructing bilateral nephrolithiasis. No ureteral calculi or obstructive uropathy. 2. Urinary bladder wall thickening with partial distention. Correlate with urinalysis. 3. No bowel obstruction or bowel wall thickening. 4. Marked splenomegaly. 5. Marginal nodularity of the liver suggestive of cirrhosis. 6. Additional findings as above. ACT 112: Negative or not required by law. The above report was generated using voice recognition software. It may contain grammatical, syntax o r spelling errors. Electronically signed by: Chas Luong M.D. 12/30/2020 9:05 AM
[2020-12-30 10:40] LABS: Platelet Count 11 K/uL (130-400)
[2020-12-30 10:48] LABS: Hematocrit (blood only) 21.9 % (37-47); Hemoglobin 7.2 g/dL (12.0-16.0); Mean Corpuscular Hemoglobin 29.8 pg (25-34); Mean Corpuscular Hgb Conc 32.9 g/dL (32-36); Mean Corpuscular Volume 90.5 fL (80-100); RDW Standard Deviation 55.8 fL (36.4-46.3); Red Blood Count 2.42 M/uL (4.2-5.4)
--- NOTE | 2020-12-30 11:32 | Communication Note ---
Date of Service: December 30, 2020 AM lab reviewed : Hb remains stable 7.2 platelet 11 no bleeding episode so far no indication for transfusion follow CBC in am Rebecca Damon MD
[2020-12-30] MEDS: cefTRIAXone SODIUM 2,000 MG in DEXTROSE 5% 50 ML IV SCH (12:08)
[2020-12-30] MEDS: HEPARIN 100 UNIT/ML 5ML FLUSH FLUSH PRN ×2 (12:09→22:20)
[2020-12-30] MEDS: DOCUSATE SODIUM 100 MG CAP PO PRN (12:15)
[2020-12-30] MEDS ORDERED: SODIUM CHLORIDE 0.9% 250 ML IV PRN (16:39)
[2020-12-30] MEDS ORDERED: ACETAMINOPHEN 500 MG TAB PO ONE (16:40)
--- NOTE | 2020-12-30 16:43 | Communication Note ---
Date of Service: December 30, 2020 pt reports of feeling fatigue , dizzy spell , lightheadedness , wesley with hb level 7.2 ordered 1 unit of PRBC transfusion 1 gm Tylenol PO will be given pre transfusion ( pt developed low grade fever during pervious transfusion ) Lasix 20 mg IV post transfusion X1 to prevent vol overload repeat CBC in am Rebecca Damon MD
[2020-12-30] MEDS ORDERED: FUROSEMIDE 20 MG in SYRINGE 0 ML IV SCH (17:00)
--- NOTE | 2020-12-30 17:20 | Hospitalist Progress Note ---
Date of Service December 30, 2020 Assessment & Plan (1) Pancytopenia: Ovarian Cancer Profound anemia due to recent chemo tx : Pt is 65 y/o F with PMH sick sinus syndrome s/p pacemaker, ovarian cancer s/p surgery and currently on chemo, BERRY intolerant to CPAP presented to ER for abnormal labs of pancytopenia. outpatient labs: WBC: 1.38, Hgb: 4.7, Plt<10, ANC: 0.48. Follows with Dr Marion. Last treatment 12/12/20 -carboplatin In ER WBC: 0.97, H/H: 4.3/13.8, Plt: 6, ANC: 388 Pancytopenia likely secondary to chemo pt received total 5 units of PRBC tx since admission pt reports of feeling fatigue , dizzy spell , lightheadedness , VINSON with hb level 7.2/platelet improved 11 ordered 1 unit of PRBC transfusion 1 gm Tylenol PO will be given pre transfusion ( pt developed low grade fever during pervious transfusion ) Lasix 20 mg IV post transfusion X1 to prevent vol overload repeat CBC in am Possible UTI : increased frequency , dysuria , hesitancy symptoms has improved UA + started on IV rocephin follow urine culture Acute Hypoxemic resp failure : due to severe symptomatic anemia noted have dizzy spell/lightheadedness , desaturation noted in room air with exertion no fever or chills or cough correction of anemia as above cont supplemental 02 to keep Spo2 > 95% pt reports she already has home 02 Sick sinus syndrome: S/P pacemaker Continue sotalol BERRY: Intolerant to CPAP DVT Prophylaxis -Teds for now secondary to anemia, thrombocytopenia Full Code as per discussion with pt Follows with Dr Whatley for routine care cont to monitor in tele mo home when clinically remains stable /labs : anemia and thrombocytopenia - improved /stable PT/Ot eval prior to discharge home plan of care discussed with patient , all questions answered Admission and Anticipated Discharge Date Admission Date: December 26, 2020 Subjective follow up visit for symptomatic anemia /ovarian ca on chemo: hb remains low 7.2 complains of SOB , VINSON , dizzy spell and lightheadedness while walking worried that if she goes home with Hb in low 7 will have to return back to hospital for blood transfusion -as she gets very symptomatic with Hb < 7 no fever or chills , no Cough or chest pain no bleeding episode urinary hesitancy , urgency has improved Physical Exam Physical Exam: General: no distress, appears fatigued, obese Head: normocephalic, atraumatic Eyes: conjunctiva pale, anicteric ENT: normal inspection external ears, nose, mucous membranes moist Neck: supple, trachea midline, non-tender Lungs: clear, no respiratory distress, no wheezing/rhonchi/rales CV: RRR, no murmur, no pretibial edema Abd: +incision middle of abdomen, inferior aspect incision with healing dehiscence without surrounding erythema and without discharge, normal BS, soft, non-tender Ext: no cyanosis, no calf tenderness Neuro: A&O x 3, no focal deficits noted, normal affect Skin: pale, +scattered petechiae, +scattered ecchymosis, warm, dry Results & Data Results & Data ([facility]) Vital Signs (Past 12 Hours) Vital Signs Temp Pulse Pulse Resp BP Pulse Ox 12/30/20 16:36 61 12/30/20 16:18 36.6 C 64 18 135/79 94 12/30/20 13:06 36.6 C 62 19 117/69 93 12/30/20 09:14 36.6 C 63 20 127/77 93 12/30/20 09:00 79
[2020-12-30] MEDS: POLYETHYLENE (MIRALAX) 17 GM PACK PO PRN (17:44)
[2020-12-31] MEDS: DOCUSATE SODIUM 100 MG CAP PO PRN ×2 (00:52→12:03)
[2020-12-31] MEDS: ACETAMINOPHEN 325 MG TAB PO PRN ×2 (02:52→12:03)
[2020-12-31] MEDS: HEPARIN 100 UNIT/ML 5ML FLUSH FLUSH PRN ×2 (05:36→12:54)
[2020-12-31 06:42] LABS: Hematocrit (blood only) 22.1 % (37-47); Hemoglobin 7.2 g/dL (12.0-16.0); Mean Corpuscular Hemoglobin 29.1 pg (25-34); Mean Corpuscular Hgb Conc 32.6 g/dL (32-36); Mean Corpuscular Volume 89.5 fL (80-100); Platelet Count 12 K/uL (130-400); RDW Coefficient of Variation 16.5 % (11.5-14.5); Red Blood Count 2.47 M/uL (4.2-5.4); White Blood Count 0.76 K/uL (4.8-10.8)
[2020-12-31 07:11] LABS: Eosinophils # (auto) 0.01 K/uL (0-0.5); Eosinophils % (auto) 1.3 %; Lymphocytes # (auto) 0.45 K/uL (1.2-3.4); Lymphocytes % (auto) 59.2 %; Monocytes # (auto) 0.01 K/uL (0.11-0.59); Monocytes % (auto) 1.3 %; Neutrophils # (auto) 0.29 K/uL (1.4-6.5); Neutrophils % (auto) 38.2 %; Platelet Estimate SIGNIFIC DECREASED (Normal); Tear Drop Cells 1+
[2020-12-31] MEDS: CHOLECALCIFEROL 1,000 UNITS 25 MCG TAB PO SCH (08:05)
[2020-12-31] MEDS: PANTOprazole 40 MG TAB PO SCH ×2 (08:05→21:01)
[2020-12-31] MEDS: SERTRALINE HCL 100 MG TABLET PO SCH (08:05)
[2020-12-31] MEDS: SOTALOL HCL 80 MG TAB PO SCH ×2 (08:05→21:01)
[2020-12-31] MEDS: hydroCHLOROthiazide 25 MG TAB PO SCH (08:05)
[2020-12-31] MEDS: FOLIC ACID 1 MG TAB PO SCH (08:06)
[2020-12-31] MEDS: LORazepam 0.5 MG TAB PO SCH ×2 (08:08→21:01)
[2020-12-31] MEDS: POLYETHYLENE (MIRALAX) 17 GM PACK PO PRN (08:09)
[2020-12-31] MEDS: cefTRIAXone SODIUM 2,000 MG in DEXTROSE 5% 50 ML IV SCH (12:00)
[2020-12-31] MEDS ORDERED: SODIUM CHLORIDE 0.9% 250 ML IV PRN ×2 (14:04→14:18)
[2020-12-31] MEDS ORDERED: ACETAMINOPHEN 500 MG TAB PO SCH (14:15)
[2020-12-31] MEDS ORDERED: FUROSEMIDE 20 MG in SYRINGE 0 ML IV SCH (15:00)
--- NOTE | 2020-12-31 17:18 | Hospitalist Progress Note ---
Date of Service December 31, 2020 Assessment & Plan (1) Pancytopenia: Ovarian Cancer Profound anemia due to recent chemo tx : Pt is 65 y/o F with PMH sick sinus syndrome s/p pacemaker, ovarian cancer s/p surgery and currently on chemo, BERRY intolerant to CPAP presented to ER for abnormal labs of pancytopenia. outpatient labs: WBC: 1.38, Hgb: 4.7, Plt<10, ANC: 0.48. Follows with Dr Marion. Last treatment 12/12/20 -carboplatin In ER WBC: 0.97, H/H: 4.3/13.8, Plt: 6, ANC: 388 Pancytopenia likely secondary to chemo pt received multiple units of pRBc transfusion pt reports of feeling fatigue , dizzy spell , lightheadedness , VINSON with hb level 7.2/ ordered for 1 unit of PRBC tx today 12/31/20 will check labs for possible hemolysis: FDP /LDH level ordered Wound dehiscence in lower abdomen : s/p total abdominal hysterectomy in 09/28 for ovarian ca small wound dehiscence on lower part of incision site with surrounding erythema and oozing ordered for wound culture wound care nurse consult Iv vancomycin empirically Thrombocytopenia : due to chemo Plt count 14 , monitor for evicence of active bleeding multiple spontaneous bruise noted on extremities Possible UTI : increased frequency , dysuria , hesitancy symptoms has improved UA + started on IV rocephin follow urine culture Acute Hypoxemic resp failure : due to severe symptomatic anemia noted have dizzy spell/lightheadedness , desaturation noted in room air with exertion no fever or chills or cough correction of anemia as above cont supplemental 02 to keep Spo2 > 95% pt reports she already has home 02 Sick sinus syndrome: S/P pacemaker Continue sotalol BERRY: Intolerant to CPAP DVT Prophylaxis -Teds for now secondary to anemia, thrombocytopenia Full Code as per discussion with pt Follows with Dr Whatley for routine care needs continued hospital stay for multiple medical issues ( anemia , thrombocytopenia , possible post hysterectomy wound infection ) dc home when clinically remains stable /labs : anemia and thrombocytopenia - improved /stable PT/Ot eval prior to discharge home plan of care discussed with patient , all questions answered Admission and Anticipated Discharge Date Admission Date: December 26, 2020 Subjective follow up visit for symptomatic anemia /ovarian ca on chemo: am labs shows : HB 7.2 pt feels weak and tired some VINSON, no dizzy spell new bruise note on left leg , pt is not aware of any bleeding episode urinary hesitancy , urgency has improved redness and oozing noted from lower abdomen /post hysterectomy site with surrounding erythema no fever or chills Review of Systems Review of Systems: All systems reviewed & are unremarkable except as noted in Subjective Physical Exam Physical Exam: General: no distress, appears fatigued, obese Head: normocephalic, atraumatic Eyes: conjunctiva pale, anicteric ENT: normal inspection external ears, nose, mucous membranes moist Neck: supple, trachea midline, non-tender Lungs: clear, no respiratory distress, no wheezing/rhonchi/rales CV: RRR, no murmur, no pretibial edema Abd: +incision middle of abdomen, inferior aspect incision with healing dehiscence /increased erythema , with serous drainage Skin: pale, +scattered petechiae, +scattered ecchymosis, warm, dry Results & Data Results & Data ([facility]) Vital Signs (Past 12 Hours) Vital Signs Temp Pulse Pulse Resp BP BP Pulse Ox 12/31/20 16:00 65 12/31/20 15:50 36.6 C 73 18 132/66 90 12/31/20 15:30 36.7 C 66 18 144/62 H 94 12/31/20 15:00 36.8 C 65 18 132/68 12/31/20 14:48 36.6 C 64 18 124/60 95 12/31/20 14:44 36.6 C 64 18 124/60 95 12/31/20 14:43 36.7 C 61 20 127/68 92 12/31/20 11:18 36.6 C 64 20 147/68 H 96 12/31/20 08:30 79 12/31/20 06:29 36.7 C 61 18 149/79 H 93
[2020-12-31] MEDS ORDERED: VANCOMYCIN CONSULT ACTIVE PRN (17:19)
[2020-12-31] MEDS ORDERED: VANCOMYCIN HCL 1,000 MG/270 ML BAG IV STA (17:19)
[2020-12-31] MEDS ORDERED: VANCOMYCIN HCL 2,500 MG in SODIUM CHLORIDE 0.9% 500 ML IV STA (17:31)
[2020-12-31 18:37] LABS: INR 1.1 (0.9-1.1); Prothrombin Time 10.8 Seconds (9.0-12.0)
[2020-12-31 18:43] LABS: Hematocrit (blood only) 26.5 % (37-47); Hemoglobin 8.5 g/dL (12.0-16.0); Mean Corpuscular Hemoglobin 28.3 pg (25-34); Mean Corpuscular Hgb Conc 32.1 g/dL (32-36); Mean Corpuscular Volume 88.3 fL (80-100); Platelet Count 13 K/uL (130-400); RDW Coefficient of Variation 16.2 % (11.5-14.5); RDW Standard Deviation 51.8 fL (36.4-46.3); White Blood Count 0.91 K/uL (4.8-10.8)
[2020-12-31 18:49] LABS: D Dimer 1090 ug/L FEU (0-500)
--- NOTE | 2020-12-31 20:50 | Pharmacy Report ---
Pharmacy Abx Initial Consult - Date of Service December 31, 2020 - Pharmacy Dosing Scope Date of Consult: 12/31/2020 Consultation requested by: Dr. Damon Pharmacy is consulted to initiate Vancomycin IV dosing therapy, order appropriate labs and adjust drug dose/frequency. - Subjective The patient is a 65 year old F admitted on 12/26/20 16:28. - Objective Height: 5 ft 7 in Weight: 108.9 kg Vital Signs (Past 12hrs): Vital Signs Temp Pulse Pulse Resp BP BP Pulse Ox 12/31/20 19:09 36.7 C 61 22 116/71 92 12/31/20 17:51 36.8 C 67 20 145/76 H 94 12/31/20 16:00 65 12/31/20 15:50 36.6 C 73 18 132/66 90 12/31/20 15:30 36.7 C 66 18 144/62 H 94 12/31/20 15:00 36.8 C 65 18 132/68 12/31/20 14:48 36.6 C 64 18 124/60 95 12/31/20 14:44 36.6 C 64 18 124/60 95 12/31/20 14:43 36.7 C 61 20 127/68 92 12/31/20 11:18 36.6 C 64 20 147/68 H 96 Lab Results (24hrs): Laboratory Tests (24 Hours) 12/31/20 12/31/20 18:12 05:36 WBC 0.91 L* 0.76 L* Neut # (Auto) 0.29 L* Micro Results: 12/31/20 18:05 Gram Stain - Pending Abdomen Wound Culture - Pending 12/29/20 11:05 Urine Culture - Final Urine,Clean Catch Klebsiella pneumoniae - Risk Factors for Resistance * Immunocompromised (chemotherapy) * 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 * PMHx significant for CKD Stage III and ovarian cancer s/p MONIKA in September 2020 and currently on chemotherapy. * Urine culture grew pansensitive K. pneumoniae so patient was started on Ceftriaxone 2000 mg IV Q24H on 12/29. Today is Day #3 of Ceftriaxone. * Patient has small wound dehiscence in lower abdomen that has associated redness, oozing and surrounding erythema. * Renal fxn appears to be stable. Patient is afebrile. White count is 760. Abdomen wound culture taken prior to vancomycin dose today. Plan Vancomycin for treatment of skin and soft tissue infection Vancomycin IV * Loading dose: 2500 mg (23 mg/kg) * Maintenance dose: 1500 mg IV (14 mg/kg) every 12 hours * Goal trough level: 15 to 20 mcg/mL * Trough level ordered for 01/02/21 Pharmacy will continue to follow and will adjust dose/frequency as necessary. Thank you.
[2021-01-01] MEDS ORDERED: VANCOMYCIN HCL 1,500 MG in SODIUM CHLORIDE 0.9% 500 ML IV SCH (06:00)
[2021-01-01 07:03] LABS: Creatinine Clr Calc Pharmacy 71.8 ml/min; Est GFR (African American) 71.8
[2021-01-01 07:20] LABS: Eosinophils # (auto) 0.01 K/uL (0-0.5); Hematocrit (blood only) 26.2 % (37-47); Hemoglobin 8.5 g/dL (12.0-16.0); Lymphocytes # (auto) 0.46 K/uL (1.2-3.4); Lymphocytes % (auto) 45.1 %; Mean Corpuscular Hgb Conc 32.4 g/dL (32-36); Mean Corpuscular Volume 89.4 fL (80-100); Monocytes # (auto) 0.04 K/uL (0.11-0.59); Monocytes % (auto) 3.9 %; Neutrophils # (auto) 0.51 K/uL (1.4-6.5); Platelet Count 17 K/uL (130-400); Platelet Estimate SIGNIFIC DECREASED (Normal); RBC Morphology Unremarkable; RDW Coefficient of Variation 16.4 % (11.5-14.5); RDW Standard Deviation 52.5 fL (36.4-46.3); Red Blood Count 2.93 M/uL (4.2-5.4); White Blood Count 1.02 K/uL (4.8-10.8)
[2021-01-01] MEDS ORDERED: ADVANCED PROBIOTIC 1250 MG CAPSULE PO SCH (09:00)
--- NOTE | 2021-01-01 09:07 | Communication Note ---
Date of Service: January 01, 2021 am LAB reviewed : hb 8.5 with improvement of neutropenia and thrombocytopenia ( WBC 0.91-> 1.02) , platelets ( 13-> 17 ) urine culture : klebsiella -pt be in Iv Rocephin , will change to PO Keflex ( allergic to quinolones ) Wound dehiscence culture on lower abdomen post hysterectomy surgical incision site : gram stain ; few gram positive cocci Abx Keflex should be adequate coverage dc IV Vanco awaiting input from wound care nurse plan to dc home later today with home health ( will need wound check and dressing ) Rebecca Damon MD
[2021-01-01] MEDS: CHOLECALCIFEROL 1,000 UNITS 25 MCG TAB PO SCH (09:23)
[2021-01-01] MEDS: SERTRALINE HCL 100 MG TABLET PO SCH (09:23)
[2021-01-01] MEDS: hydroCHLOROthiazide 25 MG TAB PO SCH (09:23)
[2021-01-01] MEDS: FOLIC ACID 1 MG TAB PO SCH (09:23)
[2021-01-01] MEDS: LORazepam 0.5 MG TAB PO SCH (09:23)
[2021-01-01] MEDS: HEPARIN 100 UNIT/ML 5ML FLUSH FLUSH PRN (09:24)
[2021-01-01] MEDS: PANTOprazole 40 MG TAB PO SCH (09:27)
[2021-01-01] MEDS: SOTALOL HCL 80 MG TAB PO SCH (09:27)
[2021-01-01] MEDS: cephALEXin 500 MG CAP PO SCH ×2 (10:21→13:54)
--- NOTE | 2021-01-01 14:07 | Discharge Summary ---
Date of Service January 01, 2021 Admission HPI Per Admitting Provider Pt is 65 y/o F with PMH sick sinus syndrome s/p pacemaker, ovarian cancer s/p surgery and currently on chemo, BERRY intolerant to CPAP presented to ER for abnormal labs - pancytopenia. WBC: 1.38, Hgb: 4.7, Plt<10, ANC: 0.48. Pt on carboplatin Q3 weeks. Last treatment 12/12/20. She has had weekly labs with downtrending WBC, Hgb and Plt. Pt states past week has been having fatigue, generalized weakness, SOB on exertion. Denies any epistaxis, melena, hematochezia, vaginal bleeding. Denies fever/chills, diaphoresis, N/V/D/C, BOX, dizziness, syncope, vision changes, neck pain, CP, orthopnea, palpitations, cough, sore throat, choking, otalgia, rhinorrhea, abdominal pain, paresthesias, extremity edema, rashes, urinary symptoms. Principal Diagnosis SYMPTOMATIC ANEMIA DUE TO RECENT CHEMO THERAPY OVARIAN CANCER STAGE 1 PANCYTOPENIA DUE TO CHEMO SURGICAL WOUND DEHISCENCE ON LOWER ABDOMEN /POST HYSTERCTOMY SITE Discharge Data Allergies Allergy/AdvReac Type Severity Reaction Status Date / Time levofloxacin Allergy Intermediate LE Verified 10/22/20 09:43 swelling and blistering tramadol Allergy Mild Rash Verified 10/22/20 09:43 clindamycin AdvReac Intermediate PT Verified 10/22/20 09:43 CONTRACTED C-DIFF adhesive AdvReac Mild SKIN Verified 10/22/20 09:43 BLISTERS SOME TIMES shellfish derived AdvReac Mild NAUSEA,DIARRHEA, Verified 10/22/20 09:43 VOMITING doxorubicin AdvReac Hypoxia Verified 11/28/20 18:55 Consultations 12/26/20 15:35 ED Decision to Admit Stat Ordered Studies 12/29/20 14:59 CT abd pelvis wo con Routine Hospital Course (1) Pancytopenia: Ovarian Cancer Profound anemia due to recent chemo tx : Pt is 65 y/o F with PMH sick sinus syndrome s/p pacemaker, ovarian cancer s/p surgery and currently on chemo, BERRY intolerant to CPAP presented to ER for abnormal labs of pancytopenia. outpatient labs: WBC: 1.38, Hgb: 4.7, Plt<10, ANC: 0.48. Follows with Dr Marion. Last treatment 12/12/20 -carboplatin In ER WBC: 0.97, H/H: 4.3/13.8, Plt: 6, ANC: 388 Pancytopenia likely secondary to chemo pt received multiple units of pRBc transfusion pt reports of feeling fatigue , dizzy spell , lightheadedness , VINSON with hb level 7.2/ Hb improved to 8.5 today labs for possible hemolysis: FDP /LDH level negative pt reports of improvement of symptoms stable to be discharged home today Wound dehiscence in lower abdomen : s/p total abdominal hysterectomy in 09/28 for ovarian ca small wound dehiscence on lower part of incision site with surrounding erythema and oozing wound culture : gram positive cocci wound care nurse consult was Iv vancomycin empirically changed to pO keflex on discharged Thrombocytopenia : due to chemo Plt count imoroved , monitor for evicence of active bleeding multiple spontaneous bruise noted on extremities Possible UTI : increased frequency , dysuria , hesitancy symptoms has improved UA + started on IV rocephin discharged on pO KEflex Acute Hypoxemic resp failure : due to severe symptomatic anemia noted have dizzy spell/lightheadedness , desaturation noted in room air with exertion no fever or chills or cough correction of anemia as above cont supplemental 02 to keep Spo2 > 95% pt reports she already has home 02 Sick sinus syndrome: S/P pacemaker Continue sotalol BERRY: Intolerant to CPAP DVT Prophylaxis scd and -Teds for now secondary to anemia, thrombocytopenia Full Code as per discussion with pt Follows with Dr Whatley for routine care dc home today with home health nursing plan of care discussed with patient , all questions answered Total Time Total Time Spent Total Time Spent (In Minutes): 35 mins Total Time Includes: Discharge Planning and Medication Reconciliation Discharge Plan Discharge Items Patient Disposition: Home - Home Health Services Reason For Visit: PANCYTOPENIA Discharge Diagnosis: SYMPTOMATIC ANEMIA DUE TO RECENT CHEMO THERAPY OVARIAN CANCER STAGE 1 PANCYTOPENIA DUE TO CHEMO SURGICAL WOUND DEHISCENCE ON LOWER ABDOMEN /POST HYSTERCTOMY SITE Activity: As commented below Activity Comment: TOLERATED Weightbearing: Left weightbearing Non-emergency contact: Primary Care Provider Call non-emergency contact if: you have any medication questions Follow-up/Referrals: Sabra Whatley DO [Primary Care Provider] - 01/03/21 2:20 pm (Date & Time 01/03/2021 2:20 PM Provider Sabra Whatley, DO Department [facility] ) Robert Marion MD [Hospitalist] - (FOLLOW UP WITH HEME /ONC SCHEDULED ) Diet: Regular Addtl Attending Provider Instructions: Please take all medications as instructed on discharge list below. Hospital follow-up with your primary care physician on 01/03 @ 2:20am to ensure you are still doing well. Antibiotic : Keflex 500 mg 1 tablet 4 times daily for 5 days- Take over the counter Pro Biotics /Lactinex for 1 weeks to prevent diarrhea /loose stool due to antibiotic Lab work: complete blood work : CBC to assess for anemia /thrombocytopenia on 01/03/21 Please call if you have any questions or problems. You can reach a [facility] hospitalist on duty at [facility] 24 hours a day by calling [phone] DO NOT TAKE ASPIRIN , ALEVE , MOTRIN , IBUPROFEN , NAPROXEN , ADVIL -AVOID ALL NASAID'S ( GROUP OF DRUGS ) CAN CAUSE YOU TO BLEED , YOU ALREADY HAVE LOW PLATELET COUNT Pending Studies at Discharge: No Stand-Alone Forms: My [facility], Smoking Cessation Medications and DC Order Prescriptions: New sulfamethoxazole-trimethoprim [Bactrim DS] 800-160 mg tablet 1 tab PO BID 5 Days Qty: 10 RF: 0 Continued cholecalciferol (vitamin D3) 50 mcg (2,000 unit) tablet 2,000 units PO QAM Qty: 90 RF: 3 omeprazole 20 mg capsule,delayed release(DR/EC) 20 mg PO BID RF: 0 sertraline [Zoloft] 100 mg Tablet 100 mg PO QAM RF: 0 lorazepam 0.5 mg Tablet 0.5 mg PO BID RF: 0 docusate sodium [Colace] 100 mg Capsule 100 mg PO BID PRN (Reason: Constipation) RF: 0 folic acid 1 mg Tablet 1 mg PO QAM RF: 0 fosfomycin tromethamine [Monurol] 3 gram packet 3 g PO WK RF: 0 sotalol 80 mg tablet 80 mg PO BID RF: 0 hydrochlorothiazide 25 mg tablet 25 mg PO QAM RF: 0 cyclobenzaprine 5 mg tablet 5 mg PO BID PRN (Reason: Muscle Spasm) RF: 0 Discontinued naproxen sodium [Aleve] 220 mg tablet 220 mg PO BID PRN (Reason: Pain) RF: 0 Discharge Orders: Discharge Order (Routine); Ordered 01/01/21 Ordered By: Rebecca Damon Admission Data Admit Date/Time: 12/26/20 16:28 Attending Provider: Rebecca Daomn Admit Provider: Jose Dixon Primary Care Provider: Sabra Whatley Other Providers: [facility]Home Healthcare ; Jose Dixon Other Interventions: Discharge Summary Assessment (RN) Last Done: 01/01/21 13:08
[2021-01-02] MEDS ORDERED: VANCOMYCIN TROUGH ONE (05:30)
--- NOTE | 2021-01-04 11:58 | Communication Note ---
Date of Service: January 04, 2021 pt's wound culture report reviewed : staph aureus MSSA sensitive to Bactrim pt was discharged on PO Kelflex , new prescription for Bactrim sent to pt's pharmacy at [facility] pt updated over phone of the medication change Rebecca Damon MD
== END 2021-01-01 14:17 | disposition home health service (06) | DRG 754 ==
LOC: ED 14:43 → SUATTDRO 16:28 → 2S 16:28 → 2W 12-27 21:25

== ENCOUNTER 2023-01-16 18:55 | Inpatient (IN) ==
[2023-01-16] MEDS ORDERED: SODIUM CHLORIDE 0.9% 500 ML IV ONE (19:04)
--- NOTE | 2023-01-16 19:06 | Emergency Department Note ---
Impression & Plan Severe sepsis, Hypoxia, Transaminitis, Weakness ED Provider Note Name: MICHELLE ARELLANO Age: 67 Sex: F Arrives Via: Ambulance Informant: Patient, EMS, Family ED Provider: Zachery Aguirre MD Chief Complaint: weakness Impression: As per impressions above Medical Decision Makin-year-old female with quite complex past medical history including A-fib RVR, BERRY, home O2 use, GERD, hypertension, CKD amongst others arrives for evaluation of worsening weakness about 2 weeks post left knee surgery. She was just seen by her surgeon and felt the knee looked good. Notes that she was started on Keflex and its unclear whether this was due to UTI or concern for cellulitis. O n exam the knee looks good. Patient arrives with report of fever at home, low oxygen here, mild tachycardia. Immediately sepsis work-up begun. She was given 500mL normal saline IV. However she does appear to be a bit fluid overloaded and thus further 30/kg was not given. Her lactate is moderately elevated. She is not hypotensive. She does appear to have some sepsis the etiology is not completely clear. Her lung exam possibly has a left lower lobe infiltrate that may just be fluid overload. Her urinalysis has a large amount of bilirubin. Her LFTs are significantly elevated though review of chart appears she did have an episode of transaminitis very similar to this with an infection a few years ago. She does not have abdominal tenderness palpation and the CT of the abdomen pelvis does not reveal any clear evidence of abscess or surgical need. At the moment she has a soft knee which is able to be range of motion slightly without significant pain. It seems unlikely that this is infected. I will note patient was given empiric Zosyn for coverage. MRSA swab was obtained which is negative Prior Medical Record and Triage/Nursing Notes reviewed by Me Extensive external reviewed by me including recent hospitalizations. Differentials:Viral syndrome, otitis, pharyngitis, pneumonia, influenza, meningitis, urinary tract infection, sepsis, bacteremia, as well as other pathologies. Vital Signs: reviewed and remarkable for hypoxia Interventions: Normal saline bolus 500 mL Patient was not given 30 mL/kg IV fluids as she already is fluid overloaded and has a history of CKD and CHF. Instead she was given 500 mL IV fluids initially which she tolerated. Labs:Reviewed and remarkable for elevated procalcitonin, lactate, low mag mildly elevated troponin Imaging:X ray results are stated below per my interpretation: Chest: 1 view: Mild congestive failure with questionable infiltrate in the left lower lobe CT of the abdomen pelvis with IV contrast as per my interpretation reveals no overt obstruction, free fluid, free air or other concerning findings. As per radiologist no acute findings EKG:As per my interpretation indication weakness. Normal sinus rhythm at 96 bpm and QTc of 467. There are some nonspecific ST depressions throughout which do appear similar to a December 26, 2020 EKG. There is no ectopy. Cardiac/Tele Monitoring: Cardiac Monitoring: An Order was placed for continuous cardiac monitoring. The monitor shows a rate of 90 with a normal sinus rhythm. Consults:Dr Rafael OSPINA Hospitalist Plan: Disposition:Hospitalization. Condition: Fair History of Present Illness:67-year-old female arrives for evaluation of fever. Patient states that she had left knee replacement surgery at [facility] about 2 weeks ago. She then spent the last week or so in [facility] rehab facility. She returned home a few days ago. She states she has been tired and exhausted for a few days. Did started some iron infusions due to some anemia and weakness. Patient states that weakness fatigue and exhaustion rapidly worsened today. She is too weak to even really sit up. She also notes that she feels like she has been having urinary burning all day. She is also been having urinary frequency. Patient uses oxygen 2 L at baseline at night but had to start increasing it at home because she was feeling a bit short of breath with the exhaustion. EMS was called who arrived and found the patient hypoxic and febrile. She was given DuoNeb and increased oxygen in route with improvement in her breathing. Patient denies any chest pain or shortness of breath currently. She denies any abdominal pain, back pain, headache, neck stiffness, sore throat or other concerning signs or symptoms. She states her left knee is not hurting her at all. No swelling in the leg or drainage. It has been evaluated by her surgeon recently who felt it was healing well. Patient denies any pain in it currently. Past History:See Below Home Medications:See Below Allergies:See Below Vitals:Blood Pressure: 123/50, Pulse 92, RR 16, T 36.7C, O2 88% on 2L Physical Exam: GENERAL: Patient is unwell/pale appearing and in minimal distress. EYES: No scleral icterus, unremarkable pupils. RESPIRATORY: No dyspnea nor tachypnea. She has diffuse mild crackles no wheeze or rhonchi appreciated. CARDIOVASCULAR: Regular rate and rhythm.No murmurs, rubs, gallops appreciated. GASTROINTESTINAL: Abdomen soft, non-tender, no peritonitis.Bowel sounds positive.No masses appreciated. BACK: No midline tenderness, no CVA tenderness EXTREMITIES: Bilateral lower leg edema no significant pain with range of motion of the left knee beyond what she states is baseline. NEUROLOGIC: Alert and oriented though slightly somnolent, no focal neurologic deficits SKIN: Patient appears pale possibly slightly jaundiced PSYCH: Appropriate GCS: 15 ED Course: Times/Reassessments: Patient much improved with nasal cannula O2 and IV fluid boluses. She is comfortable without any complaints. Critical Care: I have personally spent 35 minutes of critical care time in the direct management of this patient. Severe sepsis with resuscitation. This was a life/limb threatening event. This 35 minutes is in excess of all separately billable procedures. Zachery Aguirre MD Past Med/Surg History Medical History Anemia hx blood transfusions Hgb baseline 8-9 Anxiety and depression Atrial fibrillation No AC due to GI bleed and anemia Chronic hypoxemic respiratory failure Chronic right-sided HF (heart failure) Likely per cardio secondary to obesity hypo ventilatory syndrome/Pickwickian CKD (chronic kidney disease), stage III [address] 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 WELSH). last check 3 weeks ago Restless leg syndrome Sick sinus syndrome Spinal stenosis HX Surgical History H/O arthroscopy of knee H/O cystoscopy H/O gastric bypass "1980, reversed in same year" History of appendectomy (~09/07/20) History of arthroscopy LEFT KNEE History of colonoscopy History of ERCP (~09/2020) History of esophagogastroduodenoscopy (EGD) History of herniorrhaphy VENTRAL HERNIA REPAIR= 04/27/17= GRADE VIEW 2, CLEMENTE#2, ETT 7.0 AT [facility] History of lithotripsy History of tonsillectomy History of total hysterectomy with bilateral salpingo-oophorectomy (BSO) (~09/07/20) [place] [facility] [place] appy at same time History of vascular access device removed [place] teeth removed Family History Mother Scleroderma Lupus Family history of reaction to anesthesia nausea Father Coronary heart disease Brother Fatty liver Aunt Cancer unspecified Grandfather (Paternal) Heart disease Grandfather (Maternal) Lung disease Grandmother (Paternal) Stroke Grandmother (Maternal) Family history of diabetes mellitus Social History Smoking Status: Former smoker Tobacco Type: Cigarettes Cigarettes Per Day: couple cigs on weekends in ; Second Hand Exposure: No; Do You Dip or Chew Tobacco: No; Tobacco Cessation Education Requested by Patient: No Hx Alcohol Use: No Hx Substance Use: No Preferred Language: Rwandan Communication Ability: Effective Visual Impairment: No 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 Beliefs That Will Affect Care: None marital status: Current Living Situation: Alone Current Living Situation Comment: Lives alone in apartment Other Information That Helps Us Care for You: No Feels Safe at Home: Yes Safety Concerns: Feels Safe At This Time Assistive Devices: Oxygen - at Night and Walker Allergies Allergies Allergy/AdvReac Type Severity Reaction Status Date / Time levofloxacin Allergy Intermediate LE Verified 09/25/22 09:33 swelling and blistering tramadol Allergy Mild Rash Verified 09/25/22 09:33 paclitaxel [From Taxol] Allergy facial Verified 09/25/22 09:33 flushing, bradycardia clindamycin AdvReac Intermediate PT Verified 09/25/22 09:33 CONTRACTED C-DIFF adhesive AdvReac Mild SKIN Verified 09/25/22 09:33 BLISTERS SOME TIMES shellfish derived AdvReac Mild NAUSEA,DIARRHEA, Verified 09/25/22 09:33 VOMITING doxorubicin AdvReac Hypoxia Verified 09/25/22 09:33 Home Meds Home Medications Medication Instructions Recorded Confirmed lorazepam 0.5 mg tablet 0.5 mg PO TID PRN Anxiety 10/18/18 01/17/23 sertraline 100 mg tablet (Zoloft) 100 mg PO QAM 10/18/18 01/16/23 cyclobenzaprine 5 mg tablet 5 mg PO BID PRN Muscle Spasm 08/25/19 01/16/23 omeprazole 20 mg capsule,delayed 20 mg PO BID 04/12/20 01/16/23 release folic acid 1 mg tablet 1 mg PO QAM 05/08/20 01/16/23 fosfomycin tromethamine 3 gram 3 g PO WK 10/01/20 01/16/23 oral packet (Monurol) sotalol 80 mg tablet 80 mg PO BID 10/01/20 01/16/23 acetaminophen [Tylenol] 325 mg PO PRN 04/15/21 01/16/23 loratadine 10 mg tablet (Claritin) 10 mg PO QAM 09/18/22 01/16/23 Keflex 01/16/23 Proventil HFA 2 puff 01/16/23 Previous Rx's Medication Instructions Recorded cholecalciferol (vitamin D3) 50 2,000 unit PO QAM #90 tabs 04/09/21 mcg (2,000 unit) tablet Portable Oxygen #1 ea 05/20/22 hydrochlorothiazide 25 mg tablet 25 mg PO QAM #90 tabs 09/17/22 Results & Data (ED) Vital Signs Vital Signs - 24 hr 01/16/23 18:38 01/16/23 18:38 01/16/23 19:04 Temperature 36.7 C Temperature Source Oral Pulse Rate 93 H 92 H Pulse Rate from SpO2 Sensor Pulse Rhythm Regular Respiratory Rate 22 Respiratory Effort / Characteristics Non-Labored Spontaneous Non-Labored Spontaneous Respiratory Depth Normal Blood Pressure 123/50 L Blood Pressure Mean 74 Pulse Oximetry 95 94 Oxygen Delivery Method Nasal Cannula Nasal Cannula Oxygen Flow Rate 4 4 Sepsis Recent Fever Within 48 Hours Yes Sepsis New/Unexplained Change in Mental Status No Sepsis Action Taken by Nursing No Action Required 01/16/23 19:02 01/16/23 19:30 01/16/23 19:01 Temperature Temperature Source Pulse Rate 96 H 90 96 H Pulse Rate from SpO2 Sensor 96 H 90 Pulse Rhythm Respiratory Rate 30 H 20 Respiratory Effort / Characteristics Respiratory Depth Blood Pressure 123/50 L Blood Pressure Mean 74 Pulse Oximetry 90 96 Oxygen Delivery Method Oxygen Flow Rate Sepsis Recent Fever Within 48 Hours Sepsis New/Unexplained Change in Mental Status Sepsis Action Taken by Nursing 01/16/23 20:30 01/16/23 19:50 01/16/23 20:00 Temperature 36.7 C Temperature Source Oral Pulse Rate 86 86 Pulse Rate from SpO2 Sensor 88 86 Pulse Rhythm Respiratory Rate 28 H 30 H Respiratory Effort / Characteristics Respiratory Depth Blood Pressure Blood Pressure Mean Pulse Oximetry 97 98 Oxygen Delivery Method Oxygen Flow Rate Sepsis Recent Fever Within 48 Hours Sepsis New/Unexplained Change in Mental Status Sepsis Action Taken by Nursing 01/16/23 20:10 01/16/23 20:20 01/16/23 20:30 Temperature Temperature Source Pulse Rate 88 83 87 Pulse Rate from SpO2 Sensor 90 85 87 Pulse Rhythm Respiratory Rate 22 29 H 24 Respiratory Effort / Characteristics Respiratory Depth Blood Pressure Blood Pressure Mean Pulse Oximetry 94 96 96 Oxygen Delivery Method Oxygen Flow Rate Sepsis Recent Fever Within 48 Hours Sepsis New/Unexplained Change in Mental Status Sepsis Action Taken by Nursing 01/16/23 20:35 01/16/23 20:53 01/16/23 21:00 Temperature Temperature Source Pulse Rate 85 92 H 84 Pulse Rate from SpO2 Sensor 85 92 H 87 Pulse Rhythm Respiratory Rate 25 H 16 Respiratory Effort / Characteristics Respiratory Depth Blood Pressure 128/53 L 124/47 L Blood Pressure Mean 78 72 Pulse Oximetry 96 98 100 Oxygen Delivery Method Oxygen Flow Rate Sepsis Recent Fever Within 48 Hours Sepsis New/Unexplained Change in Mental Status Sepsis Action Taken by Nursing 01/16/23 21:10 01/16/23 23:11 01/16/23 21:15 Temperature Temperature Source Pulse Rate 85 82 85 Pulse Rate from SpO2 Sensor 85 81 Pulse Rhythm Respiratory Rate 26 H 28 H Respiratory Effort / Characteristics Respiratory Depth Blood Pressure 126/51 L Blood Pressure Mean 76 Pulse Oximetry 100 100 Oxygen Delivery Method Oxygen Flow Rate Sepsis Recent Fever Within 48 Hours Sepsis New/Unexplained Change in Mental Status Sepsis Action Taken by Nursing 01/16/23 21:30 01/16/23 21:45 01/16/23 22:00 Temperature Temperature Source Pulse Rate 84 82 82 Pulse Rate from SpO2 Sensor 84 82 Pulse Rhythm Respiratory Rate 22 26 H 28 H Respiratory Effort / Characteristics Respiratory Depth Blood Pressure 119/52 L 122/49 L Blood Pressure Mean 74 73 Pulse Oximetry 99 96 Oxygen Delivery Method Oxygen Flow Rate Sepsis Recent Fever Within 48 Hours Sepsis New/Unexplained Change in Mental Status Sepsis Action Taken by Nursing 01/16/23 22:15 01/16/23 22:30 01/16/23 22:45 Temperature Temperature Source Pulse Rate 80 80 Pulse Rate from SpO2 Sensor 82 82 Pulse Rhythm Respiratory Rate 27 H 29 H Respiratory Effort / Characteristics Respiratory Depth Blood Pressure 121/49 L 121/48 L Blood Pressure Mean 73 72 Pulse Oximetry 99 97 Oxygen Delivery Method Oxygen Flow Rate Sepsis Recent Fever Within 48 Hours Sepsis New/Unexplained Change in Mental Status Sepsis Action Taken by Nursing 01/16/23 22:45 01/16/23 23:00 01/16/23 23:00 Temperature Temperature Source Pulse Rate 79 81 Pulse Rate from SpO2 Sensor 80 80 Pulse Rhythm Respiratory Rate 25 H 31 H Respiratory Effort / Characteristics Respiratory Depth Blood Pressure 125/46 L Blood Pressure Mean 72 Pulse Oximetry 100 99 Oxygen Delivery Method Oxygen Flow Rate Sepsis Recent Fever Within 48 Hours Sepsis New/Unexplained Change in Mental Status Sepsis Action Taken by Nursing Laboratory Data 01/17/23 05:19 01/17/23 05:19 Lab Results 01/16/23 01/16/23 01/16/23 Range/Units 19:07 19:07 19:07 WBC 14.79 H (4.8-10.8) K/ul RBC 3.15 L (4.20-5.40) M/uL Hgb 8.7 L (12.0-16.0) g/dl Hct 28.6 L (37.0-47.0) % MCV 90.8 (80.0-100.0) fL MCH 27.6 (25.0-34.0) pg MCHC 30.4 L (32.0-36.0) g/dL RDW Std Deviation 72.5 H (36.4-46.3) fL RDW Coeff of Patrica 21.6 H (11.5-14.5) % Plt Count 172 (130-400) K/uL MPV 10.6 (9.4-12.4) fL Immature Gran % (Auto) 1.8 % Neut % (Auto) 92.9 % Lymph % (Auto) 1.7 % [place] % (Auto) 3.4 % Eos % (Auto) 0.1 % Baso % (Auto) 0.1 % Neut # (Auto) 13.73 H (1.40-6.50) K/uL Lymph # (Auto) 0.25 L (1.2-3.4) K/uL [place] # (Auto) 0.50 (0.11-0.59) K/uL Eos # (Auto) 0.02 (0-0.50) K/uL Baso # (Auto) 0.02 (0-0.2) K/uL Immature Gran # (Auto) 0.27 H (0.01-0.20) K/uL Absolute Nucleated RBC 0.05 (0-0.12) K/uL Nucleated RBC % (auto) 0.3 % Anisocytosis Present PT (9.0-12.0) Seconds INR (0.9-1.1) Sodium 135 L (136-145) mmol/L Potassium 3.5 (3.5-5.1) mmol/L Chloride 96 L (98-107) mmol/L Carbon Dioxide 31 (21-32) mmol/L Anion Gap 8 (3-11) BUN 26 H (6-23) mg/dl Creatinine 1.35 H (0.6-1.2) mg/dl Est Cr Clr Drug Dosing 50.8 ml/min Est GFR ( Amer) 46.3 ml/min Est GFR (Non-Af Amer) 40.0 ml/min BUN/Creatinine Ratio 19.3 (10-20) Glucose 204 H (70-99(Fasting)) mg/dl Lactate 2.2 H* (0.4-2.0) mmol/L Calcium 8.7 (8.5-10.1) mg/dl Magnesium 1.5 L (1.7-2.4) mg/dl Total Bilirubin 7.9 H (0.2-1.0) mg/dl Direct Bilirubin 6.0 H (0-0.2) mg/dl AST 218 H (13-39) U/L ALT 111 H (7-52) U/L Alkaline Phosphatase 187 H (34-104) U/L Ammonia (18-72) umol/L Troponin I High Sens 14.3 H (0-14) pg/ml Total Protein 6.8 (6.0-8.3) gm/dl Albumin 3.5 (3.4-5.0) gm/dl Procalcitonin (0-0.5) ng/ml Urine Color Urine Appearance (Clear) Urine pH (4.5-7.5) Ur Specific [place] (1.000-1.030) Urine Protein (Negative) Urine Glucose (UA) (Negative) Urine Ketones (Negative) Urine Blood (Negative) Urine Nitrite (Negative) Urine Bilirubin (Negative) Urine Urobilinogen (Negative) Ur Leukocyte Esterase (Negative) Urine WBC (Auto) (0-5) /hpf Urine RBC (Auto) (0-4) /hpf U Hyaline Cast (Auto) (0-5) /lpf U Epithel Cells (Auto) (0-5) /lpf Urine Bacteria (Auto) (Negative) Nasal Screen MRSA (PCR) (Negative) Acetaminophen (10-30) ug/ml SARS-CoV-2 (PCR) (Negative) Influenza Type A (PCR) (Neg) Influenza Type B (PCR) (Neg) RSV (RT-PCR) (Neg) 01/16/23 01/16/23 01/16/23 Range/Units 19:07 19:19 19:49 WBC (4.8-10.8) K/ul RBC (4.20-5.40) M/uL Hgb (12.0-16.0) g/dl Hct (37.0-47.0) % MCV (80.0-100.0) fL MCH (25.0-34.0) pg MCHC (32.0-36.0) g/dL RDW Std Deviation (36.4-46.3) fL RDW Coeff of Patrica (11.5-14.5) % Plt Count (130-400) K/uL MPV (9.4-12.4) fL Immature Gran % (Auto) % Neut % (Auto) % Lymph % (Auto) % [place] % (Auto) % Eos % (Auto) % Baso % (Auto) % Neut # (Auto) (1.40-6.50) K/uL Lymph # (Auto) (1.2-3.4) K/uL [place] # (Auto) (0.11-0.59) K/uL Eos # (Auto) (0-0.50) K/uL Baso # (Auto) (0-0.2) K/uL Immature Gran # (Auto) (0.01-0.20) K/uL Absolute Nucleated RBC (0-0.12) K/uL Nucleated RBC % (auto) % Anisocytosis PT (9.0-12.0) Seconds INR (0.9-1.1) Sodium (136-145) mmol/L Potassium (3.5-5.1) mmol/L Chloride (98-107) mmol/L Carbon Dioxide (21-32) mmol/L Anion Gap (3-11) BUN (6-23) mg/dl Creatinine (0.6-1.2) mg/dl Est Cr Clr Drug Dosing ml/min Est GFR ( Amer) ml/min Est GFR (Non-Af Amer) ml/min BUN/Creatinine Ratio (10-20) Glucose (70-99(Fasting)) mg/dl Lactate (0.4-2.0) mmol/L Calcium (8.5-10.1) mg/dl Magnesium (1.7-2.4) mg/dl Total Bilirubin (0.2-1.0) mg/dl Direct Bilirubin (0-0.2) mg/dl AST (13-39) U/L ALT (7-52) U/L Alkaline Phosphatase (34-104) U/L Ammonia 40.0 (18-72) umol/L Troponin I High Sens (0-14) pg/ml Total Protein (6.0-8.3) gm/dl Albumin (3.4-5.0) gm/dl Procalcitonin 1.74 H (0-0.5) ng/ml Urine Color Urine Appearance (Clear) Urine pH (4.5-7.5) Ur Specific [place] (1.000-1.030) Urine Protein (Negative) Urine Glucose (UA) (Negative) Urine Ketones (Negative) Urine Blood (Negative) Urine Nitrite (Negative) Urine Bilirubin (Negative) Urine Urobilinogen (Negative) Ur Leukocyte Esterase (Negative) Urine WBC (Auto) (0-5) /hpf Urine RBC (Auto) (0-4) /hpf U Hyaline Cast (Auto) (0-5) /lpf U Epithel Cells (Auto) (0-5) /lpf Urine Bacteria (Auto) (Negative) Nasal Screen MRSA (PCR) (Negative) Acetaminophen (10-30) ug/ml SARS-CoV-2 (PCR) NEGATIVE (Negative) Influenza Type A (PCR) Negative (Neg) Influenza Type B (PCR) Negative (Neg) RSV (RT-PCR) Negative (Neg) 01/16/23 01/16/23 01/16/23 Range/Units 20:30 21:34 21:41 WBC (4.8-10.8) K/ul RBC (4.20-5.40) M/uL Hgb (12.0-16.0) g/dl Hct (37.0-47.0) % MCV (80.0-100.0) fL MCH (25.0-34.0) pg MCHC (32.0-36.0) g/dL RDW Std Deviation (36.4-46.3) fL RDW Coeff of Patrica (11.5-14.5) % Plt Count (130-400) K/uL MPV (9.4-12.4) fL Immature Gran % (Auto) % Neut % (Auto) % Lymph % (Auto) % [place] % (Auto) % Eos % (Auto) % Baso % (Auto) % Neut # (Auto) (1.40-6.50) K/uL Lymph # (Auto) (1.2-3.4) K/uL [place] # (Auto) (0.11-0.59) K/uL Eos # (Auto) (0-0.50) K/uL Baso # (Auto) (0-0.2) K/uL Immature Gran # (Auto) (0.01-0.20) K/uL Absolute Nucleated RBC (0-0.12) K/uL Nucleated RBC % (auto) % Anisocytosis PT (9.0-12.0) Seconds INR (0.9-1.1) Sodium (136-145) mmol/L Potassium (3.5-5.1) mmol/L Chloride (98-107) mmol/L Carbon Dioxide (21-32) mmol/L Anion Gap (3-11) BUN (6-23) mg/dl Creatinine (0.6-1.2) mg/dl Est Cr Clr Drug Dosing ml/min Est GFR ( Amer) ml/min Est GFR (Non-Af Amer) ml/min BUN/Creatinine Ratio (10-20) Glucose (70-99(Fasting)) mg/dl Lactate 1.8 (0.4-2.0) mmol/L Calcium (8.5-10.1) mg/dl Magnesium (1.7-2.4) mg/dl Total Bilirubin (0.2-1.0) mg/dl Direct Bilirubin (0-0.2) mg/dl AST (13-39) U/L ALT (7-52) U/L Alkaline Phosphatase (34-104) U/L Ammonia (18-72) umol/L Troponin I High Sens (0-14) pg/ml Total Protein (6.0-8.3) gm/dl Albumin (3.4-5.0) gm/dl Procalcitonin (0-0.5) ng/ml Urine Color Dark Yellow Urine Appearance Cloudy A (Clear) Urine pH 6.0 (4.5-7.5) Ur Specific [place] 1.022 (1.000-1.030) Urine Protein 1+ H (Negative) Urine Glucose (UA) Trace H (Negative) Urine Ketones Trace H (Negative) Urine Blood Negative (Negative) Urine Nitrite Positive A (Negative) Urine Bilirubin 3+ H (Negative) Urine Urobilinogen Positive H (Negative) Ur Leukocyte Esterase 3+ H (Negative) Urine WBC (Auto) >30 H (0-5) /hpf Urine RBC (Auto) 5-10 H (0-4) /hpf U Hyaline Cast (Auto) 1-5 (0-5) /lpf U Epithel Cells (Auto) 10-20 H (0-5) /lpf Urine Bacteria (Auto) Negative (Negative) Nasal Screen MRSA (PCR) (Negative) Acetaminophen < 3 L (10-30) ug/ml SARS-CoV-2 (PCR) (Negative) Influenza Type A (PCR) (Neg) Influenza Type B (PCR) (Neg) RSV (RT-PCR) (Neg) 01/16/23 01/16/23 Range/Units 22:11 22:16 WBC (4.8-10.8) K/ul RBC (4.20-5.40) M/uL Hgb (12.0-16.0) g/dl Hct (37.0-47.0) % MCV (80.0-100.0) fL MCH (25.0-34.0) pg MCHC (32.0-36.0) g/dL RDW Std Deviation (36.4-46.3) fL RDW Coeff of Patrica (11.5-14.5) % Plt Count (130-400) K/uL MPV (9.4-12.4) fL Immature Gran % (Auto) % Neut % (Auto) % Lymph % (Auto) % [place] % (Auto) % Eos % (Auto) % Baso % (Auto) % Neut # (Auto) (1.40-6.50) K/uL Lymph # (Auto) (1.2-3.4) K/uL [place] # (Auto) (0.11-0.59) K/uL Eos # (Auto) (0-0.50) K/uL Baso # (Auto) (0-0.2) K/uL Immature Gran # (Auto) (0.01-0.20) K/uL Absolute Nucleated RBC (0-0.12) K/uL Nucleated RBC % (auto) % Anisocytosis PT 11.8 (9.0-12.0) Seconds INR 1.1 (0.9-1.1) Sodium (136-145) mmol/L Potassium (3.5-5.1) mmol/L Chloride (98-107) mmol/L Carbon Dioxide (21-32) mmol/L Anion Gap (3-11) BUN (6-23) mg/dl Creatinine (0.6-1.2) mg/dl Est Cr Clr Drug Dosing ml/min Est GFR ( Amer) ml/min Est GFR (Non-Af Amer) ml/min BUN/Creatinine Ratio (10-20) Glucose (70-99(Fasting)) mg/dl Lactate (0.4-2.0) mmol/L Calcium (8.5-10.1) mg/dl Magnesium (1.7-2.4) mg/dl Total Bilirubin (0.2-1.0) mg/dl Direct Bilirubin (0-0.2) mg/dl AST (13-39) U/L ALT (7-52) U/L Alkaline Phosphatase (34-104) U/L Ammonia (18-72) umol/L Troponin I High Sens (0-14) pg/ml Total Protein (6.0-8.3) gm/dl Albumin (3.4-5.0) gm/dl Procalcitonin (0-0.5) ng/ml Urine Color Urine Appearance (Clear) Urine pH (4.5-7.5) Ur Specific [place] (1.000-1.030) Urine Protein (Negative) Urine Glucose (UA) (Negative) Urine Ketones (Negative) Urine Blood (Negative) Urine Nitrite (Negative) Urine Bilirubin (Negative) Urine Urobilinogen (Negative) Ur Leukocyte Esterase (Negative) Urine WBC (Auto) (0-5) /hpf Urine RBC (Auto) (0-4) /hpf U Hyaline Cast (Auto) (0-5) /lpf U Epithel Cells (Auto) (0-5) /lpf Urine Bacteria (Auto) (Negative) Nasal Screen MRSA (PCR) Negative (Negative) Acetaminophen (10-30) ug/ml SARS-CoV-2 (PCR) (Negative) Influenza Type A (PCR) (Neg) Influenza Type B (PCR) (Neg) RSV (RT-PCR) (Neg) Administered Medications Acetaminophen (Acetaminophen 325 Mg Tab) 325 mg PO Q6H PRN PRN Reason: Mild Pain (Scale 1, 2, 3) Stop: 02/16/23 00:58 Last Admin: 01/17/23 11:31 Dose: 325 mg Documented By: KEITH Doxycycline Hyclate (Doxycycline Hyclate 100 Mg Cap) 100 mg PO BID [facility] Stop: 01/24/23 08:59 Last Admin: 01/17/23 09:18 Dose: 100 mg Documented By: KEITH Folic Acid (Folic Acid 1 Mg Tab) [facility] [place]: 02/16/23 08:59 Last Admin: 01/17/23 09:18 Dose: 1 mg Documented By: KEITH Meropenem 500 mg/ Syringe 10 mls @ 2 mls/min IV Q6H [facility]; Protocol Stop: 01/27/23 03:59 Last Admin: 01/17/23 16:31 Dose: 2 mls/min Documented By: Admin: 01/17/23 09:51 Dose: 2 mls/min Documented By: Admin: 01/17/23 04:36 Dose: 2 mls/min Documented By: ADELINA Loratadine (Loratadine 10 Mg Tab) 10 mg PO QAM [facility] Stop: 02/16/23 08:59 Last Admin: 01/17/23 09:17 Dose: 10 mg Documented By: KEITH Lorazepam (Lorazepam 0.5 Mg Tab) 0.5 mg PO TID PRN PRN Reason: Anxiety Stop: 02/16/23 08:59 Last Admin: 01/17/23 09:51 Dose: 0.5 mg Documented By: Admin: 01/17/23 01:34 Dose: 0.5 mg Documented By: ADELINA Oxycodone HCl (Oxycodone Hcl Ir 5 Mg Tab (Immediate Release)) 5 - 10 mg PO QID PRN PRN Reason: Pain Stop: 01/31/23 00:58 Last Admin: 01/17/23 12:55 Dose: 10 mg Documented By: Admin: 01/17/23 01:34 Dose: 10 mg Documented By: ADELINA Pantoprazole Sodium (Pantoprazole 40 Mg Tab) 40 mg PO BID ADINA Stop: 02/16/23 08:59 Last Admin: 01/17/23 09:18 Dose: 40 mg Documented By: KEITH Senna/Docusate Sodium (Docusate Sodium/Senna 50/8.6mg Tab) 1 tab PO QAM ADINA Stop: 02/16/23 00:54 Last Admin: 01/17/23 09:17 Dose: 1 tab Documented By: Admin: 01/17/23 01:35 Dose: 1 tab Documented By: ADELINA Sotalol HCl (Sotalol Hcl 80 Mg Tab) 80 mg PO BID ADIAN Stop: 02/16/23 00:59 Last Admin: 01/17/23 09:17 Dose: 80 mg Documented By: Admin: 01/17/23 01:35 Dose: 80 mg Documented By: ADELINA Discontinued Medications Albuterol (Albut/Ipratrop 3mg/0.5mg Neb 3 Ml Vial) 3 ml NEB NOW STA; Protocol Stop: 01/16/23 22:05 Last Admin: 01/16/23 22:43 Dose: 3 ml Documented By: MAXIMO Furosemide (Furosemide 40 Mg/4 Ml Vial) 40 mg IV ONE STA Stop: 01/16/23 22:09 Last Admin: 01/16/23 22:43 Dose: 40 mg Documented By: MAXIMO Sodium Chloride (Nss) 500 mls @ 999 mls/hr IV .Q31M ONE Stop: 01/16/23 19:34 Last Infusion: 01/16/23 20:19 Dose: 0 mls/hr Documented By: Admin: 01/16/23 19:16 Dose: 999 mls/hr Documented By: MAXIMO Piperacillin Sod/Tazobactam Sod (Zosyn) 4.5 gm in 120 mls @ 240 mls/hr IV NOW ONE Stop: 01/16/23 21:01 Last Infusion: 01/16/23 21:56 Dose: 0 mls/hr Documented By: Admin: 01/16/23 21:02 Dose: 240 mls/hr Documented By: MAXIMO Magnesium Sulfate/Dextrose (Magnesium Sulfate / D5w) 1 gm in 100 mls @ 50 mls/hr IV Q2H ADINA Stop: 01/17/23 02:14 Last Infusion: 01/17/23 05:00 Dose: 0 mls/hr Documented By: Admin: 01/17/23 01:34 Dose: 50 mls/hr Documented By: Infusion: 01/17/23 00:42 Dose: 50 mls/hr Documented By: Admin: 01/16/23 22:42 Dose: 50 mls/hr Documented By: MAXIMO Albumin Human (Albumin 25% 100 Ml) 25 gm in 100 mls @ 50 mls/hr IV ONE STA Stop: 01/17/23 00:08 Last Infusion: 01/17/23 01:57 Dose: 0 mls/hr Documented By: Admin: 01/16/23 22:42 Dose: 50 mls/hr Documented By: MAXIMO Meropenem 500 mg/ Syringe 10 mls @ 2 mls/min IV NOW STA; Protocol Stop: 01/16/23 22:14 Last Admin: 01/16/23 23:09 Dose: 2 mls/min Documented By: MAXIMO Doxycycline Hyclate 100 mg/ (Dextrose) 110 mls @ 50 mls/hr IV NOW STA Stop: 01/17/23 01:45 Last Infusion: 01/17/23 03:02 Dose: 0 mls/hr Documented By: Admin: 01/16/23 23:53 Dose: 50 mls/hr Documented By: MAXIMO Ioversol (Optiray 350 100ml) 80 ml IV ONCE ONE Stop: 01/16/23 20:46 Last Admin: 01/16/23 20:45 Dose: 80 ml Documented By: LUIS Potassium Chloride (Potassium Chloride Pwd 20 Meq Pack) 40 meq PO NOW STA Stop: 01/16/23 22:10 Last Admin: 01/16/23 23:00 Dose: 40 meq Documented By: [facility] Imaging Data Radiologist's Impression: Chest X-Ray 01/16/23 19:04 XR chest 1V portable CLINICAL HISTORY: Sepsis TECHNIQUE: Single frontal radiograph of the chest was obtained. Comparison: Comparison is made to chest radiograph 12/26/2020 FINDINGS: Dual lead pacemaker is seen. Cardiomegaly is noted. Prominence and cephalization of the vasculature is seen. Left greater than right interstitial and airspace opacities. No evidence of pleural effusion or pneumothorax. IMPRESSION: 1. Cardiomegaly and mild pulmonary edema. 2. Interstitial opacities with likely left greater than right airspace opacities which may represent atelectasis, pneumonia, and/or aspiration. ACT 112: Negative or not required by law. Electronically signed by: Lito Carvalho M.D. 01/17/2023 8:37 AM Discharge Plan Visit Data Chief Complaint: Fever Stated Complaint: FEVER, SOB ED Provider: Zachery Aguirre Discharge Problem: Severe sepsis, Hypoxia, Transaminitis, Weakness Patient Disposition: Admitted As Inpatient Discharge Instructions Interventions: ED Discharge Assessment Last Done: 01/17/23 00:54
[2023-01-16 19:50] LABS: Hematocrit (blood only) 28.6 % (37.0-47.0); Hemoglobin 8.7 g/dl (12.0-16.0); Mean Corpuscular Hemoglobin 27.6 pg (25.0-34.0); Mean Corpuscular Hgb Conc 30.4 g/dL (32.0-36.0); Mean Corpuscular Volume 90.8 fL (80.0-100.0); Mean Platelet Volume 10.6 fL (9.4-12.4); Nucleated RBC # (auto) 0.05 K/uL (0-0.12); Nucleated RBC % (auto) 0.3 %; Platelet Count 172 K/uL (130-400); RDW Coefficient of Variation 21.6 % (11.5-14.5); RDW Standard Deviation 72.5 fL (36.4-46.3); Red Blood Count 3.15 M/uL (4.20-5.40); White Blood Count 14.79 K/ul (4.8-10.8)
[2023-01-16 20:05] LABS: BUN Creatinine Ratio 19.3 (10-20); Bilirubin,Total 7.9 mg/dl (0.2-1.0); Calcium 8.7 mg/dl (8.5-10.1); Creatinine Clr Calc Pharmacy 50.8 ml/min; Est GFR (African American) 46.3 ml/min; Magnesium 1.5 mg/dl (1.7-2.4); Potassium 3.5 mmol/L (3.5-5.1)
[2023-01-16 20:06] LABS: Albumin Level 3.5 gm/dl (3.4-5.0); Total Protein 6.8 gm/dl (6.0-8.3)
[2023-01-16 20:09] LABS: Anisocytosis Present; Basophils # (auto) 0.02 K/uL (0-0.2); Basophils % (auto) 0.1 %; Eosinophils # (auto) 0.02 K/uL (0-0.50); Eosinophils % (auto) 0.1 %; Immature Granulocytes # (auto) 0.27 K/uL (0.01-0.20); Immature Granulocytes % (auto) 1.8 %; Lymphocytes # (auto) 0.25 K/uL (1.2-3.4); Lymphocytes % (auto) 1.7 %; Monocytes % (auto) 3.4 %; Neutrophils # (auto) 13.73 K/uL (1.40-6.50); Neutrophils % (auto) 92.9 %
[2023-01-16 20:10] LABS: Troponin I High Sensitivity 14.3 pg/ml (0-14)
[2023-01-16] MEDS ORDERED: PIPERACILLIN/TAZOBACTAM 4.5 GM/120 ML BAG IV ONE (20:32)
[2023-01-16 20:38] LABS: Influenza A virus by PCR Negative (Neg); Influenza B virus by PCR Negative (Neg); RSV by PCR Negative (Neg); SARS CoV2 RNA(COVID-19) Ceph NEGATIVE (Negative)
[2023-01-16] MEDS ORDERED: OPTIRAY 350 100ml IV ONE (20:45)
[2023-01-16 21:17] LABS: Appearance Urine Cloudy (Clear); Bacteria Urine Automated Negative (Negative); Blood Urine Negative (Negative); Color Urine Dark Yellow; Glucose Urine UA Trace (Negative); Ketones Urine Trace (Negative); Leukocyte Esterase Urine 3+ (Negative); Nitrite Urine Positive (Negative); Protein Urine 1+ (Negative); Specific Gravity Urine 1.022 (1.000-1.030); Urobilinogen Urine Positive (Negative); WBC Urine Automated >30 /hpf (0-5)
[2023-01-16 21:18] LABS: Bilirubin Urine 3+ (Negative)
--- NOTE | 2023-01-16 21:33 | CT Scan Report ---
Exam(s): CT ABDOMEN + PELVIS With Contrast EXAM: CT Abdomen and Pelvis With Intravenous Contrast CLINICAL HISTORY: Reason for exam: Fever, LFT elevation. TECHNIQUE: Axial computed tomography images of the abdomen and pelvis with intravenous contrast. CTDI is 35.58 mGy and DLP is 1782.64 mGy-cm. Automated exposure control was utilized for the study. A dose lowering technique was utilized adhering to the principles of ALARA. CONTRAST: 80 mL Optiray 350 IV contrast COMPARISON: MRI abdomen 01/13/22 FINDINGS: Heart size is normal. There are partially imaged cardiac pacer leads. Lung bases are clear. There is hepatomegaly with mildly nodular surface suggesting cirrhosis. Portal vein is patent. Splenomegaly measuring 19 cm is consistent with portal hypertensive change. There is cholelithiasis without acute cholecystitis or biliary dilatation. Pancreas and adrenal glands are unremarkable. Kidneys enhance symmetrically. There is no hydronephrosis. A 12 mm exophytic complex cyst projects medially from the upper pole of the left kidney (series 2, image 40), not significantly changed from prior MRI. There are bilateral nonobstructing kidney stones, more numerous in the right kidney. There is no hydronephrosis. Uterus is surgically absent. Urinary bladder is unremarkable. There is atherosclerosis without aortic aneurysm. There is no adenopathy, free fluid, or free air. Appendix is not identified. There is no bowel obstruction or inflammation. There are postoperative changes of the stomach. There are degenerative changes of the lumbar spine. There are no acute osseous findings. IMPRESSION: 1. No acute or inflammatory process. 2. Cirrhosis with splenomegaly. 3. Nonobstructing kidney stones, more numerous in the right kidney. 4. Complex exophytic cyst arising from the medial aspect of the right kidney upper pole, similar to prior MRI. Electronically signed by: Hussain Castellanos M.D. 01/16/23 21:32 PM
[2023-01-16] MEDS ORDERED: ALBUT/IPRATROP 3MG/0.5MG NEB 3 ML VIAL NEB STA (22:04)
[2023-01-16] MEDS ORDERED: FUROSEMIDE 40 MG/4 ML VIAL IV STA (22:08)
[2023-01-16] MEDS ORDERED: POTASSIUM CHLORIDE PWD 20 MEQ PACK PO STA (22:09)
[2023-01-16] MEDS ORDERED: ALBUMIN 25% 100 mL 25 GM/100 ML VIAL IV STA (22:09)
[2023-01-16] MEDS ORDERED: MEROPENEM 500 MG in SYRINGE 0 ML IV STA (22:10)
[2023-01-16 22:36] LABS: INR 1.1 (0.9-1.1); Prothrombin Time 11.8 Seconds (9.0-12.0)
[2023-01-16] MEDS: MAGNESIUM SULFATE / D5W 1 GM/100 ML BAG IV SCH (22:42)
--- NOTE | 2023-01-16 23:10 | History & Physical Report ---
Date of Service January 16, 2023 Assessment & Plan (1) Severe sepsis: Plan: SIRS plus ARF on CKD plus lactic acidosis Possible sources: complicated UTI (hx recurrent ESBL E. coli UTI on Fosfomycin suppression Rx) ? Postop wound infection, recent left knee surgery started on Keflex course yesterday by orthopedist Hypoxemic respiratory failure Acute on chronic hx chronic respiratory failure secondary to pulmonary hypertension secondary to ILD, hx BERRY/nocturnal hypoxemia secondary to pulmonary congestion Transaminitis secondary to illness/passive congestion hx NAFLD cirrhosis SSS sp PPM, not on anticoagulation secondary to GI bleed history/thrombocytopenia hypertension, stable GERD/history esophageal varices ovarian cancer status post surgery/incomplete chemotherapy prediabetes, hemoglobin A1c of 5.8 last December 2019 chronic anemia, hemoglobin at baseline chronic thrombocytopenia secondary to cirrhosis past tobacco abuse. Medical telemetry CS, Meropenem for complicated UTI (hx ESBL), Doxycycline for possible postop wound infection Wound care nurse consult supplemental O2 Baseline ABG Lasix albumin 1 dose, neb treatment Follow LFTs GI consult if with worsening Follow renal function Nephrology consult if with worsening (Patient known to [facility] PT OT eval once medically stable DVT prophylaxis. SCDs Re: Thrombocytopenia Full code Patient brother requesting updates from providers. Mr. Jefry Bah, contact #[phone]. Total critical care time was 45 minutes. Text document was generated using [employer] voice recognition software. It may contain grammatical or spelling errors. Kindly contact undersigned for clarification of any documentation item in question. History of Present Illness Chief Complaint: Shortness of breath, fever, dysuria Primary Care Provider: Kat Hawthorne DO History obtained from patient, family, and records. Medical history significant for SSS sp PPM not on anticoagulation secondary to GI bleed, hypertension, chronic respiratory failure secondary to pulmonary hypertension secondary to ILD, hx BERRY/nocturnal hypoxemia, NAFLD cirrhosis, GERD, history esophageal varices, ovarian cancer status post surgery/incomplete chemotherapy, recurrent ESBL E. coli UTI on Fosfomycin suppression Rx, history urolithiasis, history of C. difficile secondary to clindamycin, CRI (baseline creatinine 1.1), prediabetes, chronic anemia (baseline hemoglobin of 8), chronic thrombocytopenia, recent left knee surgery, past tobacco abuse. Last [facility] confinement December 2020 for symptomatic anemia secondary to chemotherapy. Recent [facility] confinement from January 05 to January 10, 2023 for elective left robotic assisted total knee arthroplasty. Patient discharged to [facility] for rehab. Patient discharged home 2 days ago. Patient seen on follow-up at [facility] yesterday. Left lower extremity swelling expected as per surgeon as per patient account. Well-healed incisions but evidence of blister formation along inferior aspect of incision for which Keflex was prescribed. Surgeon recommended JOHNIE hoses compression, elevation, outpatient evaluation and dressing changes by home nursing. Patient instructed to continue aspirin twice daily for postop DVT prophylaxis which patient had not complied with due to history of bleeding. Follow-up contemplated after 1 week. Today, patient started not feeling well. Dysuria without abdominal/flank pain. Increasing weakness. Shortness of breath without chest pain or cough symptoms. Denies fluid retention. Constipation and dark stools attributed to iron Rx as per patient. Usual postop left knee/leg swelling/pain without increasing drainage. Patient also noted to be jaundiced by family. IV Zosyn administered at the ER. 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 Allergies Allergy/AdvReac Type Severity Reaction Status Date / Time levofloxacin Allergy Intermediate LE Verified 09/25/22 09:33 swelling and blistering tramadol Allergy Mild Rash Verified 09/25/22 09:33 paclitaxel [From Taxol] Allergy facial Verified 09/25/22 09:33 flushing, bradycardia clindamycin AdvReac Intermediate PT Verified 09/25/22 09:33 CONTRACTED C-DIFF adhesive AdvReac Mild SKIN Verified 09/25/22 09:33 BLISTERS SOME TIMES shellfish derived AdvReac Mild NAUSEA,DIARRHEA, Verified 09/25/22 09:33 VOMITING doxorubicin AdvReac Hypoxia Verified 09/25/22 09:33 Home Medications Medication Instructions Recorded Confirmed Type lorazepam 0.5 mg tablet 0.5 mg PO TID PRN Anxiety 10/18/18 01/17/23 History sertraline 100 mg tablet (Zoloft) 100 mg PO QAM 10/18/18 01/16/23 History cyclobenzaprine 5 mg tablet 5 mg PO BID PRN Muscle Spasm 08/25/19 01/16/23 History omeprazole 20 mg capsule,delayed 20 mg PO BID 04/12/20 01/16/23 History release folic acid 1 mg tablet 1 mg PO QAM 05/08/20 01/16/23 History fosfomycin tromethamine 3 gram 3 g PO WK 10/01/20 01/16/23 History oral packet (Monurol) sotalol 80 mg tablet 80 mg PO BID 10/01/20 01/16/23 History cholecalciferol (vitamin D3) 50 2,000 unit PO QAM #90 tabs 04/09/21 01/16/23 Rx mcg (2,000 unit) tablet acetaminophen [Tylenol] 325 mg PO PRN 04/15/21 01/16/23 History Portable Oxygen #1 ea 05/20/22 01/16/23 Rx hydrochlorothiazide 25 mg tablet 25 mg PO QAM #90 tabs 09/17/22 01/16/23 Rx loratadine 10 mg tablet (Claritin) 10 mg PO QAM 09/18/22 01/16/23 History Keflex 01/16/23 History Proventil HFA 2 puff 01/16/23 History Past Med/Surg History Medical History Anemia hx blood transfusions Hgb baseline 8-9 Anxiety and depression Atrial fibrillation No AC due to GI bleed and anemia Chronic hypoxemic respiratory failure Chronic right-sided HF (heart failure) Likely per cardio secondary to obesity hypo ventilatory syndrome/Sakina CKD (chronic kidney disease), stage III follows [address] Dr. 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 WELSH). last check 3 weeks ago Restless leg syndrome Sick sinus syndrome Spinal stenosis HX Surgical History H/O arthroscopy of knee H/O cystoscopy H/O gastric bypass "1980, reversed in same year" History of appendectomy (~09/07/20) History of arthroscopy LEFT KNEE History of colonoscopy History of ERCP (~09/2020) History of esophagogastroduodenoscopy (EGD) History of herniorrhaphy VENTRAL HERNIA REPAIR= 04/27/17= GRADE VIEW 2, CLEMENTE#2, ETT 7.0 AT [facility] History of lithotripsy History of tonsillectomy History of total hysterectomy with bilateral salpingo-oophorectomy (BSO) (~09/07/20) [place] [facility] [place] History of vascular access device removed [place] teeth removed Family History Mother Scleroderma Lupus Family history of reaction to anesthesia nausea Father Coronary heart disease Brother Fatty liver Aunt Cancer unspecified Grandfather (Paternal) Heart disease Grandfather (Maternal) Lung disease Grandmother (Paternal) Stroke Grandmother (Maternal) Family history of diabetes mellitus Social History Smoking Status: Former smoker Tobacco Type: Cigarettes Cigarettes Per Day: couple cigs on weekends in ; Second Hand Exposure: No; Do You Dip or Chew Tobacco: No; Tobacco Cessation Education Requested by Patient: No Hx Alcohol Use: No Hx Substance Use: No Preferred Language: Belgian Communication Ability: Effective Visual Impairment: No Limitations Hay Buckler Required: No Beliefs That Will Affect Care: None marital status: Current Living Situation: Alone Current Living Situation Comment: Lives alone in apartment Other Information That Helps Us Care for You: No Feels Safe at Home: Yes Safety Concerns: Feels Safe At This Time Assistive Devices: Oxygen - at Night and Walker Review of Systems Review of Systems: As per HPI, all other systems reviewed and negative Physical Exam Physical Exam: GENERAL: Slightly uncomfortable, obese, minimal respiratory distress SKIN: Jaundiced, warm HEENT: pale palpebral conjunctivae, no ptosis, moist buccal mucosa, nasal cannula in place NECK : Supple, short neck, no tenderness CHEST : Decreased breath sounds, no tenderness HEART : RRR, no obvious murmurs ABDOMEN: Some distention, minimal hypogastric tenderness EXTREMITIES : Dressing over LLE, LE swelling, minimal LLE tenderness NEUROLOGIC : Coherent, no facial asymmetry, no other gross focality Results & Data Results & Data ([facility]) Vital Signs (Past 12 Hours) Vital Signs Temp Pulse Resp BP Pulse Ox O2 Del Method O2 Flow Rate 01/16/23 21:10 85 26 H 100 01/16/23 21:00 84 16 124/47 L 100 01/16/23 20:53 92 H 98 01/16/23 20:35 85 25 H 128/53 L 96 01/16/23 20:30 87 24 96 01/16/23 20:20 83 29 H 96 01/16/23 20:10 88 22 94 01/16/23 20:00 86 30 H 98 01/16/23 19:50 86 28 H 97 01/16/23 20:30 36.7 C 01/16/23 19:01 96 H 01/16/23 19:30 90 20 96 01/16/23 19:02 96 H 30 H 123/50 L 90 01/16/23 19:04 92 H 94 Nasal Cannula 4 01/16/23 18:38 36.7 C 93 H 22 123/50 L 95 Nasal Cannula 4 Laboratory Results Laboratory Results WBC 14.79 K/ul (4.8-10.8) H 01/16/23 19:07 RBC 3.15 M/uL (4.20-5.40) L 01/16/23 19:07 Hgb 8.7 g/dl (12.0-16.0) L 01/16/23 19:07 Hct 28.6 % (37.0-47.0) L 01/16/23 19:07 MCV 90.8 fL (80.0-100.0) 01/16/23 19:07 MCH 27.6 pg (25.0-34.0) 01/16/23 19:07 MCHC 30.4 g/dL (32.0-36.0) L 01/16/23 19:07 RDW Std Deviation 72.5 fL (36.4-46.3) H 01/16/23 19:07 RDW Coeff of Patrica 21.6 % (11.5-14.5) H 01/16/23 19:07 Plt Count 172 K/uL (130-400) 01/16/23 19:07 MPV 10.6 fL (9.4-12.4) 01/16/23 19:07 Immature Gran % (Auto) 1.8 % 01/16/23 19:07 Neut % (Auto) 92.9 % 01/16/23 19:07 Lymph % (Auto) 1.7 % 01/16/23 19:07 [place] % (Auto) 3.4 % 01/16/23 19:07 Eos % (Auto) 0.1 % 01/16/23 19:07 Baso % (Auto) 0.1 % 01/16/23 19:07 Neut # (Auto) 13.73 K/uL (1.40-6.50) H 01/16/23 19:07 Lymph # (Auto) 0.25 K/uL (1.2-3.4) L 01/16/23 19:07 [place] # (Auto) 0.50 K/uL (0.11-0.59) 01/16/23 19:07 Eos # (Auto) 0.02 K/uL (0-0.50) 01/16/23 19:07 Baso # (Auto) 0.02 K/uL (0-0.2) 01/16/23 19:07 Immature Gran # (Auto) 0.27 K/uL (0.01-0.20) H 01/16/23 19:07 Absolute Nucleated RBC 0.05 K/uL (0-0.12) 01/16/23 19:07 Nucleated RBC % (auto) 0.3 % 01/16/23 19:07 Anisocytosis Present 01/16/23 19:07 PT 11.8 Seconds (9.0-12.0) 01/16/23 22:16 INR 1.1 (0.9-1.1) 01/16/23 22:16 Sodium 135 mmol/L (136-145) L 01/16/23 19:07 Potassium 3.5 mmol/L (3.5-5.1) 01/16/23 19:07 Chloride 96 mmol/L (98-107) L 01/16/23 19:07 Carbon Dioxide 31 mmol/L (21-32) 01/16/23 19:07 Anion Gap 8 (3-11) 01/16/23 19:07 BUN 26 mg/dl (6-23) H 01/16/23 19:07 Creatinine 1.35 mg/dl (0.6-1.2) H 01/16/23 19:07 Est Cr Clr Drug Dosing 50.8 ml/min 01/16/23 19:07 Est GFR ( Amer) 46.3 ml/min 01/16/23 19:07 Est GFR (Non-Af Amer) 40.0 ml/min 01/16/23 19:07 BUN/Creatinine Ratio 19.3 (10-20) 01/16/23 19:07 Glucose 204 mg/dl (70-99(Fasting)) H 01/16/23 19:07 Lactate 1.8 mmol/L (0.4-2.0) 01/16/23 21:34 Calcium 8.7 mg/dl (8.5-10.1) 01/16/23 19:07 Magnesium 1.5 mg/dl (1.7-2.4) L 01/16/23 19:07 Total Bilirubin 7.9 mg/dl (0.2-1.0) H 01/16/23 19:07 Direct Bilirubin 6.0 mg/dl (0-0.2) H 01/16/23 19:07 AST 218 U/L (13-39) H 01/16/23 19:07 ALT 111 U/L (7-52) H 01/16/23 19:07 Alkaline Phosphatase 187 U/L (34-104) H 01/16/23 19:07 Ammonia 40.0 umol/L (18-72) 01/16/23 19:49 Troponin I High Sens 14.3 pg/ml (0-14) H 01/16/23 19:07 Total Protein 6.8 gm/dl (6.0-8.3) 01/16/23 19:07 Albumin 3.5 gm/dl (3.4-5.0) 01/16/23 19:07 Procalcitonin 1.74 ng/ml (0-0.5) H 01/16/23 19:07 Urine Color Dark Yellow 01/16/23 20:30 Urine Appearance Cloudy (Clear) A 01/16/23 20:30 Urine pH 6.0 (4.5-7.5) 01/16/23 20:30 Ur Specific [place] 1.022 (1.000-1.030) 01/16/23 20:30 Urine Protein 1+ (Negative) H 01/16/23 20:30 Urine Glucose (UA) Trace (Negative) H 01/16/23 20:30 Urine Ketones Trace (Negative) H 01/16/23 20:30 Urine Blood Negative (Negative) 01/16/23 20:30 Urine Nitrite Positive (Negative) A 01/16/23 20:30 Urine Bilirubin 3+ (Negative) H 01/16/23 20:30 Urine Urobilinogen Positive (Negative) H 01/16/23 20:30 Ur Leukocyte Esterase 3+ (Negative) H 01/16/23 20:30 Urine WBC (Auto) >30 /hpf (0-5) H 01/16/23 20:30 Urine RBC (Auto) 5-10 /hpf (0-4) H 01/16/23 20:30 U Hyaline Cast (Auto) 1-5 /lpf (0-5) 01/16/23 20:30 U Epithel Cells (Auto) 10-20 /lpf (0-5) H 01/16/23 20:30 Urine Bacteria (Auto) Negative (Negative) 01/16/23 20:30 Acetaminophen < 3 ug/ml (10-30) L 01/16/23 21:41 SARS-CoV-2 (PCR) NEGATIVE (Negative) 01/16/23 19:19 Influenza Type A (PCR) Negative (Neg) 01/16/23 19:19 Influenza Type B (PCR) Negative (Neg) 01/16/23 19:19 RSV (RT-PCR) Negative (Neg) 01/16/23 19:19 Impressions Abdomen/Pelvis CT 01/16/23 20:25 Exam(s): CT ABDOMEN + PELVIS With Contrast EXAM: CT Abdomen and Pelvis With Intravenous Contrast CLINICAL HISTORY: Reason for exam: Fever, LFT elevation. TECHNIQUE: Axial computed tomography images of the abdomen and pelvis with intravenous contrast. CTDI is 35.58 mGy and DLP is 1782.64 mGy-cm. Automated exposure control was utilized for the study. A dose lowering technique was utilized adhering to the principles of ALARA. CONTRAST: 80 mL Optiray 350 IV contrast COMPARISON: MRI abdomen 01/13/22 FINDINGS: Heart size is normal. There are partially imaged cardiac pacer leads. Lung bases are clear. There is hepatomegaly with mildly nodular surface suggesting cirrhosis. Portal vein is patent. Splenomegaly measuring 19 cm is consistent with portal hypertensive change. There is cholelithiasis without acute cholecystitis or biliary dilatation. Pancreas and adrenal glands are unremarkable. Kidneys enhance symmetrically. There is no hydronephrosis. A 12 mm exophytic complex cyst projects medially from the upper pole of the left kidney (series 2, image 40), not significantly changed from prior MRI. There are bilateral nonobstructing kidney stones, more numerous in the right kidney. There is no hydronephrosis. Uterus is surgically absent. Urinary bladder is unremarkable. There is atherosclerosis without aortic aneurysm. There is no adenopathy, free fluid, or free air. Appendix is not identified. There is no bowel obstruction or inflammation. There are postoperative changes of the stomach. There are degenerative changes of the lumbar spine. There are no acute osseous findings. IMPRESSION: 1. No acute or inflammatory process. 2. Cirrhosis with splenomegaly. 3. Nonobstructing kidney stones, more numerous in the right kidney. 4. Complex exophytic cyst arising from the medial aspect of the right kidney upper pole, similar to prior MRI. Electronically signed by: Hussain Castellanos M.D. 01/16/23 21:32 PM Diagnostic Findings Chest x-ray as per my interpretation: Cardiomegaly, congestion EKG as per my interpretation :Rate 95, NSR, normal axis, incomplete RBBB, LVH, no ischemia.
[2023-01-16] MEDS ORDERED: DOXYCYCLINE HYCLATE 100 MG in DEXTROSE 5% 100 ML IV STA (23:34)
[2023-01-16 23:57] LABS: Base Excess ABG 6.9 mEq/L (-9-1.8); HCO3 ABG 33 mmol/L (19-24); PCO2 ABG 52 mmHg (35-46); PO2 ABG 89 mmHg (80-95); pH ABG 7.41 (7.35-7.45)
[2023-01-17 00:04] LABS: Allen Test Pos (Pos)
[2023-01-17] MEDS ORDERED: PROMETHAZINE HCL 12.5 MG in SODIUM CHLORIDE 0.9% 50 ML IV PRN (00:59)
[2023-01-17] MEDS: LORazepam 0.5 MG TAB PO PRN ×3 (01:34→20:34)
[2023-01-17] MEDS: MAGNESIUM SULFATE / D5W 1 GM/100 ML BAG IV SCH (01:34)
[2023-01-17] MEDS: oxyCODONE HCL IR 5 MG TAB (IMMEDIATE RELEASE) PO PRN ×3 (01:34→20:39)
[2023-01-17] MEDS: DOCUSATE SODIUM/SENNA 50/8.6MG TAB PO SCH ×2 (01:35→09:17)
[2023-01-17] MEDS: SOTALOL HCL 80 MG TAB PO SCH ×3 (01:35→20:35)
[2023-01-17] MEDS: MEROPENEM 500 MG in SYRINGE 0 ML IV SCH ×4 (04:36→22:22)
[2023-01-17 05:55] LABS: Basophils # (auto) 0.01 K/uL (0-0.2); Basophils % (auto) 0.1 %; Eosinophils # (auto) 0.03 K/uL (0-0.50); Eosinophils % (auto) 0.3 %; Hemoglobin 8.5 g/dl (12.0-16.0); Immature Granulocytes # (auto) 0.21 K/uL (0.01-0.20); Immature Granulocytes % (auto) 2.4 %; Lymphocytes # (auto) 0.58 K/uL (1.2-3.4); Lymphocytes % (auto) 6.7 %; Mean Corpuscular Hemoglobin 27.6 pg (25.0-34.0); Mean Corpuscular Hgb Conc 30.4 g/dL (32.0-36.0); Mean Corpuscular Volume 90.9 fL (80.0-100.0); Mean Platelet Volume 9.9 fL (9.4-12.4); Monocytes # (auto) 0.52 K/uL (0.11-0.59); Neutrophils # (auto) 7.34 K/uL (1.40-6.50); Neutrophils % (auto) 84.5 %; Platelet Count 148 K/uL (130-400); RDW Coefficient of Variation 21.6 % (11.5-14.5); RDW Standard Deviation 72.7 fL (36.4-46.3); Red Blood Count 3.08 M/uL (4.20-5.40); White Blood Count 8.69 K/ul (4.8-10.8)
[2023-01-17 06:11] LABS: Albumin Globulin Ratio 1.1 (0.9-2); Albumin Level 3.4 gm/dl (3.4-5.0); BUN Creatinine Ratio 19.8 (10-20); Bilirubin,Total 8.5 mg/dl (0.2-1.0); Calcium 8.3 mg/dl (8.5-10.1); Creatinine Clr Calc Pharmacy 51.6 ml/min; Est GFR (Non-African American) 41.4 ml/min; Globulin 3.2 gm/dl (2.5-4.0); Potassium 3.5 mmol/L (3.5-5.1); Total Protein 6.6 gm/dl (6.0-8.3)
[2023-01-17 06:25] LABS: Anisocytosis Present; Tear Drop Cells 1+
[2023-01-17 06:30] LABS: Troponin I High Sensitivity 18.5 pg/ml (0-14)
--- NOTE | 2023-01-17 08:38 | XRay Report ---
XR chest 1V portable CLINICAL HISTORY: Sepsis TECHNIQUE: Single frontal radiograph of the chest was obtained. Comparison: Comparison is made to chest radiograph 12/26/2020 FINDINGS: Dual lead pacemaker is seen. Cardiomegaly is noted. Prominence and cephalization of the vasculature i s seen. Left greater than right interstitial and airspace opacities. No evidence of pleural effusion or pneumothorax. IMPRESSION: 1. Cardiomegaly and mild pulmonary edema. 2. Interstitial opacities with likely left greater than right airspace opacities which may represent atelectasis, pneumonia, and/or aspiration. ACT 112: Negative or not required by law. Electronically signed by: Lito Carvalho M.D. 01/17/2023 8:37 AM
[2023-01-17] MEDS: LORATADINE 10 MG TAB PO SCH (09:17)
[2023-01-17] MEDS: PANTOprazole 40 MG TAB PO SCH ×2 (09:18→20:35)
[2023-01-17] MEDS: DOXYCYCLINE HYCLATE 100 MG CAP PO SCH ×2 (09:18→22:22)
[2023-01-17] MEDS: FOLIC ACID 1 MG TAB PO SCH (09:18)
[2023-01-17] MEDS: ACETAMINOPHEN 325 MG TAB PO PRN ×2 (11:31→20:38)
--- NOTE | 2023-01-17 14:12 | Electrocardiogram Report ---
Test Reason : Blood Pressure : / mmHG Vent. Rate : 096 BPM Atrial Rate : 096 BPM P-R Int : 150 ms QRS Dur : 098 ms QT Int : 370 ms P-R-T Axes : 026 -02 049 degrees QTc Int : 467 ms Normal sinus rhythm Left ventricular hypertrophy with repolarization abnormality Abnormal ECG When compared with ECG of 26-DEC-2020 15:23, No significant change was found Confirmed by Jayme Lacey ([id number]) on 01/17/2023 2:12:09 PM Referred By: REFERRED SELF Confirmed By:Jayme Lacey
--- NOTE | 2023-01-17 14:40 | Hospitalist Progress Note ---
Date of Service January 17, 2023 Assessment & Plan (1) Severe sepsis: Plan: Severe sepsis SIRS + TYLER on CKD + lactic acidosis Possible sources: Postoperative wound infection, ? Complicated UTI/Pneumonia H/O recurrent ESBL E. coli UTI on fosfomycin suppression treatment Evaluated by her orthopedic physician on 01/15/23 and started on Keflex. (Recent [facility] confinement from Jan 05 to January 10, 2023 for elective left robotic assisted total knee arthroplasty). Blood, urine culture pending Check venous Doppler Received IV fluids Empirically meropenem, doxycycline Consider orthopedics evaluation if needed Mild troponin elevation Likely type II IA secondary to above Denies angina symptoms Hyperbilirubinemia Rule out obstructive jaundice Transaminitis H/O NAFLD cirrhosis Monitor LFTs Avoid hepatotoxic agents as able GI consulted MRCP pending TYLER on CKD stage IIIA Follows with [facility] Avoid nephrotoxic agents as able Monitor renal function Anemia of chronic disease HB at baseline No bleeding issues Monitor CBC Acute on chronic respiratory failure with hypoxia Mild pulmonary edema Possible pneumonia H/O respiratory failure secondary to pulmonary hypertension, ILD, BERRY/nocturnal hypoxemia Elevated procalcitonin Continue antibiotics as above Intolerant to CPAP Other conditions: SSS S/P PPM: Continue sotalol Hypertension GERD/H/O Esophageal varices: Continue Protonix Ovarian cancer S/P surgery/incomplete chemotherapy Prediabetes, HbA1c 5.8 last Dec 2019 chronic thrombocytopenia secondary to cirrhosis Past tobacco abuse DVT Px: SCDs for now Code Status Full code Admission and Anticipated Discharge Date Admission Date: January 16, 2023 Subjective Patient is seen and examined at bedside States feeling tired and has left lower extremity pain at surgical site Also reports minimal dizziness Poor sleep over the last few days States worsening of jaundice over the past couple of days Admits to have urinary frequency but denies any dysuria, hematuria Also denies any chest pain, hematuria, dyspnea, nausea, abdominal pain Review of Systems Review of Systems: All systems reviewed & are unremarkable except as noted in Subjective Physical Exam Physical Exam: Physical Exam: Vitals signs as noted above General Appearance:Obese, no apparent distress Head: normocephalic, Atraumatic Eyes: normal inspection, EOMI, +Icteric Neck: supple, Trachea midline Respiratory/Chest: Decreased breath sounds, CTA, +Pacer, No accessory muscle use Cardiovascular: S1, S2, No murmur Abdomen/GI:Soft, Non tender, Bowel sounds present Extremities/Musculoskeletal:normal inspection, LLE edema, L knee surgical scar Neurologic/Psych:AAOX3, grossly no focal neurological deficits Skin: normal color, warm, +Jaundice Results & Data Results & Data ([facility]) Vital Signs (Past 12 Hours) Vital Signs Temp Pulse Pulse Resp BP Pulse Ox O2 Del Method 01/17/23 12:58 92 01/17/23 11:26 36.5 C 66 18 127/72 94 Nasal Cannula 01/17/23 09:00 Nasal Cannula 01/17/23 07:56 73 01/17/23 07:23 36.6 C 75 18 131/63 90 Nasal Cannula O2 Flow Rate 01/17/23 12:58 01/17/23 11:26 4 01/17/23 09:00 4 01/17/23 07:56 01/17/23 07:23 4 Laboratory Results Short CBC 01/16/23 01/17/23 Range/Units 19:07 05:19 WBC 14.79 H 8.69 (4.8-10.8) K/ul Hgb 8.7 L 8.5 L (12.0-16.0) g/dl Hct 28.6 L 28.0 L (37.0-47.0) % Plt Count 172 148 (130-400) K/uL BMP 01/16/23 01/17/23 19:07 05:19 Sodium 135 L 135 L Potassium 3.5 3.5 Chloride 96 L 95 L Carbon Dioxide 31 35 H BUN 26 H 26 H Creatinine 1.35 H 1.31 H Glucose 204 H 130 H Calcium 8.7 8.3 L Liver Function 01/16/23 01/17/23 Range/Units 19:07 05:19 Total Bilirubin 7.9 H 8.5 H (0.2-1.0) mg/dl Direct Bilirubin 6.0 H (0-0.2) mg/dl AST 218 H 193 H (13-39) U/L ALT 111 H 114 H (7-52) U/L Alkaline Phosphatase 187 H 178 H (34-104) U/L Albumin 3.5 3.4 (3.4-5.0) gm/dl Urine 01/16/23 Range/Units 20:30 Urine Color Dark Yellow Urine Appearance Cloudy A (Clear) Urine pH 6.0 (4.5-7.5) Ur Specific [place] 1.022 (1.000-1.030) Urine Protein 1+ H (Negative) Urine Glucose (UA) Trace H (Negative)
[2023-01-18] MEDS: ACETAMINOPHEN 325 MG TAB PO PRN (03:30)
[2023-01-18] MEDS: MEROPENEM 500 MG in SYRINGE 0 ML IV SCH ×4 (03:35→20:21)
[2023-01-18 06:55] LABS: Hematocrit (blood only) 27.5 % (37.0-47.0); Hemoglobin 8.3 g/dl (12.0-16.0); Mean Corpuscular Hemoglobin 27.9 pg (25.0-34.0); Mean Corpuscular Hgb Conc 30.2 g/dL (32.0-36.0); Mean Corpuscular Volume 92.3 fL (80.0-100.0); Mean Platelet Volume 10.9 fL (9.4-12.4); Nucleated RBC # (auto) 0.03 K/uL (0-0.12); Nucleated RBC % (auto) 0.5 %; Platelet Count 136 K/uL (130-400); RDW Coefficient of Variation 22.3 % (11.5-14.5); RDW Standard Deviation 75.6 fL (36.4-46.3); Red Blood Count 2.98 M/uL (4.20-5.40); White Blood Count 6.19 K/ul (4.8-10.8)
--- NOTE | 2023-01-18 08:08 | Ultrasound Report ---
ULTRASOUND LEFT LOWER EXTREMITY VENOUS CLINICAL HISTORY: Left lower extremity edema. COMPARISON STUDY: No priors. TECHNIQUE: Real-time, grayscale, and color Doppler sonography of the deep veins of the left lower ext remity was performed from the inguinal crease to the calf. Compression and augmentation were utilized . FINDINGS: There is no sonographic evidence of deep venous thrombosis identified in the left lower ext remity. The common femoral, superficial femoral, and popliteal veins are patent and normally compress ible. The greater saphenous vein and the profunda femoris vein at the junction with the common femora l vein are clear. The visualized calf veins are patent. Soft tissue edema is noted in the left leg. IMPRESSION: There is no sonographic evidence of deep venous thrombosis identified in the left lower e xtremity. ACT 112: Negative or not required by law. Electronically signed by: Freddie Mae M.D. 01/18/2023 8:07 AM
[2023-01-18 08:59] LABS: Albumin Level 3.4 gm/dl (3.4-5.0); BUN Creatinine Ratio 21.9 (10-20); Calcium 8.4 mg/dl (8.5-10.1); Creatinine Clr Calc Pharmacy 59.7 ml/min; Est GFR (African American) 56.8 ml/min; Globulin 3.3 gm/dl (2.5-4.0); Potassium 3.8 mmol/L (3.5-5.1); Total Protein 6.7 gm/dl (6.0-8.3)
[2023-01-18] MEDS: LORazepam 0.5 MG TAB PO PRN ×2 (09:08→20:21)
[2023-01-18] MEDS: FOLIC ACID 1 MG TAB PO SCH (09:08)
[2023-01-18] MEDS: SOTALOL HCL 80 MG TAB PO SCH ×2 (09:08→20:21)
[2023-01-18] MEDS: LORATADINE 10 MG TAB PO SCH (09:08)
[2023-01-18] MEDS: DOCUSATE SODIUM/SENNA 50/8.6MG TAB PO SCH (09:08)
[2023-01-18] MEDS: PANTOprazole 40 MG TAB PO SCH ×2 (09:08→20:20)
[2023-01-18] MEDS: DOXYCYCLINE HYCLATE 100 MG CAP PO SCH ×2 (09:08→20:20)
--- NOTE | 2023-01-18 09:40 | Gastrointestinal Consultation ---
Date of Consultation January 18, 2023 Assessment & Plan (1) Transaminitis: She has history of cirrhosis with acute rise in LFT's. Without pain I would assume this is related to her sepsis. At this point I would only follow her LFT's as she improves. She is supposed to have MRCP which will address any concerns about her biliary tract History of Present Illness Reason for Consultation: abnormal LFT's Attending Physician: Jose Dixon MD History of Present Illness 67 year old female admitted with sepsis and noted to have elevated LFT's. She has had these in the past and actually has had evidence of cirrhosis on imaging studies in the past. She has had MRCP in the past as well and there is mention of ERCP although I do not see that report. At any rate she just had left TKR and was admitted with sepsis either from UTI or wound infection. She also had lactic acidosis with this illness. She reports "turning yellow" all of a sudden but having no pain. She recently had an EGD by Dr. Ramírez to evaluate for varices and her esophagus was normal. Allergies Allergy/AdvReac Type Severity Reaction Status Date / Time levofloxacin Allergy Intermediate LE Verified 09/25/22 09:33 swelling and blistering tramadol Allergy Mild Rash Verified 09/25/22 09:33 paclitaxel [From Taxol] Allergy facial Verified 09/25/22 09:33 flushing, bradycardia clindamycin AdvReac Intermediate PT Verified 09/25/22 09:33 CONTRACTED C-DIFF adhesive AdvReac Mild SKIN Verified 09/25/22 09:33 BLISTERS SOME TIMES shellfish derived AdvReac Mild NAUSEA,DIARRHEA, Verified 09/25/22 09:33 VOMITING doxorubicin AdvReac Hypoxia Verified 09/25/22 09:33 Home Medications Medication Instructions Recorded Confirmed Type lorazepam 0.5 mg tablet 0.5 mg PO TID PRN Anxiety 10/18/18 01/17/23 History sertraline 100 mg tablet (Zoloft) 100 mg PO QAM 10/18/18 01/16/23 History cyclobenzaprine 5 mg tablet 5 mg PO BID PRN Muscle Spasm 08/25/19 01/16/23 History omeprazole 20 mg capsule,delayed 20 mg PO BID 04/12/20 01/16/23 History release folic acid 1 mg tablet 1 mg PO QAM 05/08/20 01/16/23 History fosfomycin tromethamine 3 gram 3 g PO WK 10/01/20 01/16/23 History oral packet (Monurol) sotalol 80 mg tablet 80 mg PO BID 10/01/20 01/16/23 History cholecalciferol (vitamin D3) 50 2,000 unit PO QAM #90 tabs 04/09/21 01/16/23 Rx mcg (2,000 unit) tablet acetaminophen [Tylenol] 325 mg PO PRN 04/15/21 01/16/23 History Portable Oxygen #1 ea 05/20/22 01/16/23 Rx hydrochlorothiazide 25 mg tablet 25 mg PO QAM #90 tabs 09/17/22 01/16/23 Rx loratadine 10 mg tablet (Claritin) 10 mg PO QAM 09/18/22 01/16/23 History Keflex 01/16/23 History Proventil HFA 2 puff 01/16/23 History Patient History Medical History Anemia hx blood transfusions Hgb baseline 8-9 Anxiety and depression Atrial fibrillation No AC due to GI bleed and anemia Chronic hypoxemic respiratory failure Chronic right-sided HF (heart failure) Likely per cardio secondary to obesity hypo ventilatory syndrome/Pickwickian CKD (chronic kidney disease), stage III follows [address] Dr. 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 WELSH). last check 3 weeks ago Restless leg syndrome Sick sinus syndrome Spinal stenosis HX Surgical History H/O arthroscopy of knee H/O cystoscopy H/O gastric bypass "1980, reversed in same year" History of appendectomy (~09/07/20) History of arthroscopy LEFT KNEE History of colonoscopy History of ERCP (~09/2020) History of esophagogastroduodenoscopy (EGD) History of herniorrhaphy VENTRAL HERNIA REPAIR= 04/27/17= GRADE VIEW 2, CLEMENTE#2, ETT 7.0 AT [facility] History of lithotripsy History of tonsillectomy History of total hysterectomy with bilateral salpingo-oophorectomy (BSO) (~09/07/20) @ [facility] with appy at same time History of vascular access device removed [place] teeth removed Family History Mother Scleroderma Lupus Family history of reaction to anesthesia nausea Father Coronary heart disease Brother Fatty liver Aunt Cancer unspecified Grandfather (Paternal) Heart disease Grandfather (Maternal) Lung disease Grandmother (Paternal) Stroke Grandmother (Maternal) Family history of diabetes mellitus Social History Smoking Status: Former smoker Tobacco Type: Cigarettes Cigarettes Per Day: couple cigs on weekends in ; Second Hand Exposure: No; Do You Dip or Chew Tobacco: No; Tobacco Cessation Education Requested by Patient: No Hx Alcohol Use: No Hx Substance Use: No Preferred Language: Central [place] Communication Ability: Effective Visual Impairment: No Limitations Conveyor Tender Required: No Beliefs That Will Affect Care: None marital status: Current Living Situation: Alone Current Living Situation Comment: Lives alone in apartment Other Information That Helps Us Care for You: No Feels Safe at Home: Yes Safety Concerns: Feels Safe At This Time Assistive Devices: Oxygen - at Night and Walker Review of Systems Review of Systems: All systems reviewed & are unremarkable except as noted in HPI & below Physical Exam Constitutional: + obese Eyes: + scleral abnormality (icteric sclera) Respiratory: normal respiratory effort, lungs clear to auscultation Cardiovascular: RRR, no murmur, no edema Gastrointestinal (Abdomen): Inspection/Auscultation: abdomen normal to inspection Percussion/Palpation: abdomen soft; abdomen nontender Results & Data ([facility]) Vital Signs (Past 12 Hours) Vital Signs Temp Pulse Pulse Resp BP Pulse Ox O2 Del Method 01/18/23 07:23 36.5 C 66 18 115/67 95 Nasal Cannula 01/17/23 22:06 77 01/18/23 03:14 36.6 C 70 16 130/75 98 Nasal Cannula 01/17/23 22:32 36.7 C 74 16 120/69 97 Nasal Cannula O2 Flow Rate 01/18/23 07:23 3 01/17/23 22:06 01/18/23 03:14 3 01/17/23 22:32 3 Laboratory Results 01/18/23 01/18/23 Range/Units 06:36 06:36 WBC 6.19 (4.8-10.8) K/ul RBC 2.98 L (4.20-5.40) M/uL Hgb 8.3 L (12.0-16.0) g/dl Hct 27.5 L (37.0-47.0) % MCV 92.3 (80.0-100.0) fL MCH 27.9 (25.0-34.0) pg MCHC 30.2 L (32.0-36.0) g/dL RDW Std Deviation 75.6 H (36.4-46.3) fL RDW Coeff of Patrica 22.3 H (11.5-14.5) % Plt Count 136 (130-400) K/uL MPV 10.9 (9.4-12.4) fL Absolute Nucleated RBC 0.03 (0-0.12) K/uL Nucleated RBC % (auto) 0.5 % Sodium 132 L (136-145) mmol/L Potassium 3.8 (3.5-5.1) mmol/L Chloride 93 L (98-107) mmol/L Carbon Dioxide 34 H (21-32) mmol/L Anion Gap 5 (3-11) BUN 25 H (6-23) mg/dl Creatinine 1.14 (0.6-1.2) mg/dl Est Cr Clr Drug Dosing 59.7 ml/min Est GFR ( Amer) 56.8 ml/min Est GFR (Non-Af Amer) 49.0 ml/min BUN/Creatinine Ratio 21.9 H (10-20) Glucose 117 H (70-99(Fasting)) mg/dl Calcium 8.4 L (8.5-10.1) mg/dl Magnesium 2.0 (1.7-2.4) mg/dl Total Bilirubin 6.0 H (0.2-1.0) mg/dl AST 132 H (13-39) U/L ALT 98 H (7-52) U/L Alkaline Phosphatase 159 H (34-104) U/L Total Protein 6.7 (6.0-8.3) gm/dl Albumin 3.4 (3.4-5.0) gm/dl Globulin 3.3 (2.5-4.0) gm/dl Albumin/Globulin Ratio 1.0 (0.9-2) Diagnostic Findings Chest X-Ray 01/16/23 19:04 XR chest 1V portable CLINICAL HISTORY: Sepsis TECHNIQUE: Single frontal radiograph of the chest was obtained. Comparison: Comparison is made to chest radiograph 12/26/2020 FINDINGS: Dual lead pacemaker is seen. Cardiomegaly is noted. Prominence and cephalization of the vasculature is seen. Left greater than right interstitial and airspace opacities. No evidence of pleural effusion or pneumothorax. IMPRESSION: 1. Cardiomegaly and mild pulmonary edema. 2. Interstitial opacities with likely left greater than right airspace opacities which may represent atelectasis, pneumonia, and/or aspiration. ACT 112: Negative or not required by law. Electronically signed by: Lito Carvalho M.D. 01/17/2023 8:37 AM Abdomen/Pelvis CT 01/16/23 20:25 Exam(s): CT ABDOMEN + PELVIS With Contrast EXAM: CT Abdomen and Pelvis With Intravenous Contrast CLINICAL HISTORY: Reason for exam: Fever, LFT elevation. TECHNIQUE: Axial computed tomography images of the abdomen and pelvis with intravenous contrast. CTDI is 35.58 mGy and DLP is 1782.64 mGy-cm. Automated exposure control was utilized for the study. A dose lowering technique was utilized adhering to the principles of ALARA. CONTRAST: 80 mL Optiray 350 IV contrast COMPARISON: MRI abdomen 01/13/22 FINDINGS: Heart size is normal. There are partially imaged cardiac pacer leads. Lung bases are clear. There is hepatomegaly with mildly nodular surface suggesting cirrhosis. Portal vein is patent. Splenomegaly measuring 19 cm is consistent with portal hypertensive change. There is cholelithiasis without acute cholecystitis or biliary dilatation. Pancreas and adrenal glands are unremarkable. Kidneys enhance symmetrically. There is no hydronephrosis. A 12 mm exophytic complex cyst projects medially from the upper pole of the left kidney (series 2, image 40), not significantly changed from prior MRI. There are bilateral nonobstructing kidney stones, more numerous in the right kidney. There is no hydronephrosis. Uterus is surgically absent. Urinary bladder is unremarkable. There is atherosclerosis without aortic aneurysm. There is no adenopathy, free fluid, or free air. Appendix is not identified. There is no bowel obstruction or inflammation. There are postoperative changes of the stomach. There are degenerative changes of the lumbar spine. There are no acute osseous findings. IMPRESSION: 1. No acute or inflammatory process. 2. Cirrhosis with splenomegaly. 3. Nonobstructing kidney stones, more numerous in the right kidney. 4. Complex exophytic cyst arising from the medial aspect of the right kidney upper pole, similar to prior MRI. Electronically signed by: Hussain Castellanos M.D. 01/16/23 21:32 PM Venous Doppler Study 01/17/23 15:03 ULTRASOUND LEFT LOWER EXTREMITY VENOUS CLINICAL HISTORY: Left lower extremity edema. COMPARISON STUDY: No priors. TECHNIQUE: Real-time, grayscale, and color Doppler sonography of the deep veins of the left lower extremity was performed from the inguinal crease to the calf. Compression and augmentation were utilized. FINDINGS: There is no sonographic evidence of deep venous thrombosis identified in the left lower extremity. The common femoral, superficial femoral, and popliteal veins are patent and normally compressible. The greater saphenous vein and the profunda femoris vein at the junction with the common femoral vein are clear. The visualized calf veins are patent. Soft tissue edema is noted in the left leg. IMPRESSION: There is no sonographic evidence of deep venous thrombosis identified in the left lower extremity. ACT 112: Negative or not required by law. Electronically signed by: Freddie Mae M.D. 01/18/2023 8:07 AM
[2023-01-18] MEDS: oxyCODONE HCL IR 5 MG TAB (IMMEDIATE RELEASE) PO PRN ×2 (15:49→22:23)
--- NOTE | 2023-01-18 17:15 | Hospitalist Progress Note ---
Date of Service January 18, 2023 Assessment & Plan (1) Severe sepsis: Plan: Severe sepsis SIRS + TYLER on CKD + lactic acidosis Possible sources: Postoperative Left Knee wound infection, ? Pneumonia UTI ruled out H/O recurrent ESBL E. coli UTI on fosfomycin suppression treatment Evaluated by her orthopedic physician on 01/15/23 and started on Keflex. (Recent [facility] confinement from Jan 05 to January 10, 2023 for elective left robotic assisted total knee arthroplasty). Urine culture negative Blood culture negative to date Venous Doppler:There is no sonographic evidence of deep venous thrombosis identified in the left lower extremity. Received IV fluids Empirically on meropenem, doxycycline Orthopedics consulted Mild troponin elevation Likely type II IA secondary to above Denies angina symptoms Hyperbilirubinemia Rule out obstructive jaundice Transaminitis H/O NAFLD cirrhosis Monitor LFTs Avoid hepatotoxic agents as able GI consulted MRCP pending TYLER on CKD stage IIIA Follows with [facility] nephrology Avoid nephrotoxic agents as able Monitor renal function Anemia of chronic disease HB at baseline No bleeding issues Monitor CBC Acute on chronic respiratory failure with hypoxia Mild pulmonary edema Possible pneumonia H/O respiratory failure secondary to pulmonary hypertension, ILD, BERRY/nocturnal hypoxemia Elevated procalcitonin Continue antibiotics as above Intolerant to CPAP Other conditions: SSS S/P PPM: Continue sotalol Hypertension GERD/H/O Esophageal varices: Continue Protonix Ovarian cancer S/P surgery/incomplete chemotherapy Prediabetes, HbA1c 5.8 last Dec 2019 chronic thrombocytopenia secondary to cirrhosis Past tobacco abuse DVT Px: Heparin SQ Code Status Full code Disposition PT OT prior to discharge Admission and Anticipated Discharge Date Admission Date: January 16, 2023 Subjective Patient is seen and examined at bedside Reports having generalized itchiness especially at night Also reports left leg pain No other complaints Denies any chest pain, hematuria, dyspnea, nausea, abdominal pain MRCP pending Review of Systems Review of Systems: All systems reviewed & are unremarkable except as noted in Subjective Physical Exam Physical Exam: Physical Exam: Vitals signs as noted above General Appearance:Obese, no apparent distress Head: normocephalic, Atraumatic Eyes: normal inspection, EOMI, +Icteric Neck: supple, Trachea midline Respiratory/Chest: Decreased breath sounds, CTA, +Pacer, No accessory muscle use Cardiovascular: S1, S2, No murmur Abdomen/GI:Soft, Non tender, Bowel sounds present Extremities/Musculoskeletal:normal inspection, LLE edema, L knee surgical scar Neurologic/Psych:AAOX3, grossly no focal neurological deficits Skin: normal color, warm, +Jaundice Results & Data Results & Data ([facility]) Vital Signs (Past 12 Hours) Vital Signs Temp Pulse Pulse Resp BP Pulse Ox Pulse Ox 01/18/23 16:24 01/18/23 15:53 36.6 C 69 18 149/69 H 95 01/18/23 15:33 66 01/18/23 12:23 90 01/18/23 11:42 36.4 C L 72 18 164/74 H 93 01/18/23 09:00 01/18/23 07:23 36.5 C 66 18 115/67 95 O2 Del Method O2 Flow Rate O2 Flow Rate 01/18/23 16:24 Nasal Cannula 2 01/18/23 15:53 Room Air 01/18/23 15:33 01/18/23 12:23 3 01/18/23 11:42 Nasal Cannula 3 01/18/23 09:00 Nasal Cannula 2 01/18/23 07:23 Nasal Cannula 3 Laboratory Results Short CBC 01/18/23 Range/Units 06:36 WBC 6.19 (4.8-10.8) K/ul Hgb 8.3 L (12.0-16.0) g/dl Hct 27.5 L (37.0-47.0) % Plt Count 136 (130-400) K/uL BMP 01/18/23 06:36 Sodium 132 L Potassium 3.8 Chloride 93 L Carbon Dioxide 34 H BUN 25 H Creatinine 1.14 Glucose 117 H Calcium 8.4 L Liver Function 01/18/23 Range/Units 06:36 Total Bilirubin 6.0 H (0.2-1.0) mg/dl AST 132 H (13-39) U/L ALT 98 H (7-52) U/L Alkaline Phosphatase 159 H (34-104) U/L Albumin 3.4 (3.4-5.0) gm/dl
[2023-01-18] MEDS: diphenhydrAMINE HCL 25 MG/10 ML UDC PO PRN (21:38)
[2023-01-18] MEDS: HEPARIN SOD 5,000 UNIT/0.5 ML VIAL SQ SCH (21:38)
[2023-01-19] MEDS: MEROPENEM 500 MG in SYRINGE 0 ML IV SCH (04:32)
[2023-01-19] MEDS: oxyCODONE HCL IR 5 MG TAB (IMMEDIATE RELEASE) PO PRN ×3 (04:32→20:43)
[2023-01-19 06:47] LABS: Hemoglobin 7.8 g/dl (12.0-16.0); Mean Corpuscular Hemoglobin 27.3 pg (25.0-34.0); Mean Corpuscular Volume 90.9 fL (80.0-100.0); Nucleated RBC # (auto) 0.02 K/uL (0-0.12); Nucleated RBC % (auto) 0.4 %; Platelet Count 134 K/uL (130-400); RDW Standard Deviation 73.9 fL (36.4-46.3); Red Blood Count 2.86 M/uL (4.20-5.40)
[2023-01-19 07:11] LABS: Albumin Level 3.2 gm/dl (3.4-5.0); BUN Creatinine Ratio 22.6 (10-20); Bilirubin,Total 3.9 mg/dl (0.2-1.0); Calcium 8.6 mg/dl (8.5-10.1); Creatinine Clr Calc Pharmacy 64.2 ml/min; Est GFR (Non-African American) 53.5 ml/min; Globulin 3.3 gm/dl (2.5-4.0); Magnesium 1.9 mg/dl (1.7-2.4); Total Protein 6.5 gm/dl (6.0-8.3)
[2023-01-19] MEDS: HEPARIN SOD 5,000 UNIT/0.5 ML VIAL SQ SCH ×2 (07:44→20:42)
[2023-01-19] MEDS: SOTALOL HCL 80 MG TAB PO SCH ×2 (07:55→20:42)
[2023-01-19] MEDS: LORATADINE 10 MG TAB PO SCH (07:55)
[2023-01-19] MEDS: PANTOprazole 40 MG TAB PO SCH ×2 (07:55→20:42)
[2023-01-19] MEDS: FOLIC ACID 1 MG TAB PO SCH (07:55)
[2023-01-19] MEDS: DOXYCYCLINE HYCLATE 100 MG CAP PO SCH ×2 (07:55→20:41)
[2023-01-19] MEDS: LORazepam 0.5 MG TAB PO PRN ×2 (07:55→19:09)
[2023-01-19] MEDS ORDERED: LORazepam 2 MG/1 ML VIAL IV ONE (08:12)
--- NOTE | 2023-01-19 09:53 | Orthopedic Consultation ---
Date of Consultation January 19, 2023 Assessment & Plan (1) S/P left knee arthroscopy: Patient seen and examined this morning at bedside. There is slight erythema at the distal portion of the site that looks like the beginning of cellulitis. However it does not appear grossly infected at this time. She has been receiving IV antibiotics during her hospital stay. Recommend continuing antibiotics, WBAT to her LLE, and no surgical intervention indicated at this time. She may f/u with her orthopedic surgeon once d/c. Supervising Physician Co-Signing Physician Notes I have seen and examined the patient. She is status post left total knee replacement by Dr. Garcia at [facility] January 05, 2023. She appears to have a cellulitis of the left lower extremity. She does have peripheral edema as well. There is minimal effusion and good range of motion of the knee so I doubt she has a deep infection. She has no drainage regardless and I recommend no orthopedic intervention at this time other than IV antibiotics and continue to care for her medical conditions. She will follow-up with her orthopedic surgeon after discharge. History of Present Illness Attending Physician: Jose Dixon MD History of Present Illness Patient is a 67-year-old female who presented to the ED on 01/16/2023 due to fever and UTI symptoms. Patient recently underwent left TKA on 01/05/23 in [place]. She states she has had one follow up appointment with her surgeon who believes her knee is healing as expected, but did start her on some PO Keflex on 01/15. Post-operatively she did require rehab where she was discharged and home for one day before her symptoms started. She states she normally uses 2L O2 via NC, however she had to start increasing it due to becoming more short of breath. She was found to be hypoxic and febrile when EMS arrived. She was brought to the ED for further evaluation and was admitted for sepsis secondary to possible complicated UTI. She was started on IV antibiotics and orthopedic team was consulted for further evaluation of her previous surgical site to r/o any infec tion. During evaluation today, patient states she has no increasing pain in her left knee. States it looks the same as it has since her surgery. She denies any discharge or increased redness at the site. She has been weightbearing to her LLE without any issues. Allergies Allergy/AdvReac Type Severity Reaction Status Date / Time levofloxacin Allergy Intermediate LE Verified 09/25/22 09:33 swelling and blistering tramadol Allergy Mild Rash Verified 09/25/22 09:33 paclitaxel [From Taxol] Allergy facial Verified 09/25/22 09:33 flushing, bradycardia clindamycin AdvReac Intermediate PT Verified 09/25/22 09:33 CONTRACTED C-DIFF adhesive AdvReac Mild SKIN Verified 09/25/22 09:33 BLISTERS SOME TIMES shellfish derived AdvReac Mild NAUSEA,DIARRHEA, Verified 09/25/22 09:33 VOMITING doxorubicin AdvReac Hypoxia Verified 09/25/22 09:33 Home Medications Medication Instructions Recorded Confirmed Type lorazepam 0.5 mg tablet 0.5 mg PO TID PRN Anxiety 10/18/18 01/17/23 History sertraline 100 mg tablet (Zoloft) 100 mg PO QAM 10/18/18 01/16/23 History cyclobenzaprine 5 mg tablet 5 mg PO BID PRN Muscle Spasm 08/25/19 01/16/23 History omeprazole 20 mg capsule,delayed 20 mg PO BID 04/12/20 01/16/23 History release folic acid 1 mg tablet 1 mg PO QAM 05/08/20 01/16/23 History fosfomycin tromethamine 3 gram 3 g PO WK 10/01/20 01/16/23 History oral packet (Monurol) sotalol 80 mg tablet 80 mg PO BID 10/01/20 01/16/23 History cholecalciferol (vitamin D3) 50 2,000 unit PO QAM #90 tabs 04/09/21 01/16/23 Rx mcg (2,000 unit) tablet acetaminophen [Tylenol] 325 mg PO PRN 04/15/21 01/16/23 History Portable Oxygen #1 ea 05/20/22 01/16/23 Rx hydrochlorothiazide 25 mg tablet 25 mg PO QAM #90 tabs 09/17/22 01/16/23 Rx loratadine 10 mg tablet (Claritin) 10 mg PO QAM 09/18/22 01/16/23 History Keflex 01/16/23 History Proventil HFA 2 puff 01/16/23 History Patient History Medical History Anemia hx blood transfusions Hgb baseline 8-9 Anxiety and depression Atrial fibrillation No AC due to GI bleed and anemia Chronic hypoxemic respiratory failure Chronic right-sided HF (heart failure) Likely per cardio secondary to obesity hypo ventilatory syndrome/Pickwickian CKD (chronic kidney disease), stage III follows [address] Dr. 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 WELSH). last check 3 weeks ago Restless leg syndrome Sick sinus syndrome Spinal stenosis HX Surgical History H/O arthroscopy of knee H/O cystoscopy H/O gastric bypass "1980, reversed in same year" History of appendectomy (~09/07/20) History of arthroscopy LEFT KNEE History of colonoscopy History of ERCP (~09/2020) History of esophagogastroduodenoscopy (EGD) History of herniorrhaphy VENTRAL HERNIA REPAIR= 04/27/17= GRADE VIEW 2, CLEMENTE#2, ETT 7.0 AT [facility] History of lithotripsy History of tonsillectomy History of total hysterectomy with bilateral salpingo-oophorectomy (BSO) (~09/07/20) [place] [facility] [place] at same time History of vascular access device removed Girard teeth removed Family History Mother Scleroderma Lupus Family history of reaction to anesthesia nausea Father Coronary heart disease Brother Fatty liver Aunt Cancer unspecified Grandfather (Paternal) Heart disease Grandfather (Maternal) Lung disease Grandmother (Paternal) Stroke Grandmother (Maternal) Family history of diabetes mellitus Social History Smoking Status: Former smoker Tobacco Type: Cigarettes Cigarettes Per Day: couple cigs on weekends in ; Second Hand Exposure: No; Do You Dip or Chew Tobacco: No; Tobacco Cessation Education Requested by Patient: No Hx Alcohol Use: No Hx Substance Use: No Preferred Language: Yakut Communication Ability: Effective Visual Impairment: No Limitations Floors Buffer Required: No Beliefs That Will Affect Care: None marital status: Current Living Situation: Alone Current Living Situation Comment: Lives alone in apartment Other Information That Helps Us Care for You: No Feels Safe at Home: Yes Safety Concerns: Feels Safe At This Time Assistive Devices: Oxygen - at Night and Walker Review of Systems Review of Systems: All systems reviewed & are unremarkable except as noted in HPI & below Physical Exam Physical Exam: LLE edema appreciated. There is slight erythema at the distal portion of her surgical site, however no warmth and is nontender with palpation. No drainage appreciated. Steri-strips are in place, no calf tenderness, and compartments are soft. Able to wiggle toes without issue, good ROM of left ankle, distal perfusion and sensation are grossly intact. Results & Data ([facility]) Vital Signs (Past 12 Hours) Vital Signs Temp Pulse Pulse Resp BP Pulse Ox O2 Del Method 01/19/23 07:42 36.5 C 69 16 136/68 95 Nasal Cannula 01/19/23 07:13 64 01/19/23 02:57 36.6 C 66 16 117/67 98 Nasal Cannula 01/18/23 23:00 Nasal Cannula 01/19/23 00:35 70 01/18/23 23:00 36.3 C L 69 18 122/53 L 96 Nasal Cannula O2 Flow Rate 01/19/23 07:42 3 01/19/23 07:13 01/19/23 02:57 3 01/18/23 23:00 2 01/19/23 00:35 01/18/23 23:00 3
--- NOTE | 2023-01-19 10:56 | Gastroenterology Progress Note ---
Date of Service January 19, 2023 Assessment & Plan (1) Choledocholithiasis: Plan: 5mm CBD stone on MRCP today. (2) Liver cirrhosis secondary to WEIR: Plan Discussed w Dr. Moon and Eric. Continue broad spectrum antibiotics. Check for C-diff because had a lot of diarrhea in rehab just before transfer here. Clear liquids po today. NPO after midnight. Will plan for ERCP tomorrow afternoon by Dr. Reyes. Admission and Anticipated Discharge Date Admission Date: January 16, 2023 Supervising Physician Co-Signing Physician Notes Patient was seen and examine don 01/19 with TAWANNA Yap whose note reflects our findings and plan. Recent knee surgery at [facility]. Elevated WBC on admission. ?cellulitis. On abx. MRCP reviewed. Possible CBD stone. LFTs with some improvement. H/o "gastric bypass which was reversed in the early ) Plan is for ERCP this afternoon with Subjective 67 yr old female pt of Dr. Hawthorne w a hx ofSSS sp pacer, not anticoagulated, HTN, Pulm HTN/ILD, BERRY, Ovarian CA S/P surgery chemo, prior C-diff who underwent a robotic left total knee replacement at [facility] on 01/05/23 who was admitted w fever, respiratory decomensation and is being tx for sepsis. Regarding her WEIR cirrhosis, dx'ed in 2018, follows w TAWANNA Tabares. No prior decompensation. Most recent EGD Sep 2022 w/o any EV or sequela of portal HTN. Is due for screening for HCC (US in June and CT in Jul negative for liver lesions). Leukocytosis on arrival. On Cefepime, doxycycline 14->4). Though no diarrhea here, was in rehab and had a lot of diarrhea there (about 10 liquid BMs over night but had taken a dose of Miralax). Denies any abdominal pain or pattern of post prandial upper abd pain. Review of Systems Review of Systems: ROS: Gen: Denies weakness, fevers, weight loss Eyes: No eye redness, or pain, no recent vision changes Resp: No SOB, no cough Cardio: No palpitations/irregular beats, no chest pain GI: No abdominal pain, no nausea/vomiting : Denies pain on urination Skin: + jaundice, No itching or rashes M/S left leg robotic knee replacement healing well. Physical Exam Constitutional: WD/WN, vitals as above Sitting up at bedside, appears well, though w mild jaundice and left leg w sutures healing incisions. Eyes: mild icterus ENMT: external ear and nose normal, oropharynx normal Neck: trachea midline, no thyromegaly Respiratory: NO wheezes or crackles, no O2 sat 97% at 3L/min via NC Cardiovascular: RRR, no murmur, no edema Gastrointestinal (Abdomen): normal bowel sounds, soft, nontender, no hepatosplenomegaly Musculoskeletal: L leg w healing incisions, reyna in place; mild ecchymosis, mild edema Skin: + Jaundice Neurologic: PERRL, EOMI, accommodation nl, no face palsy, no dysarthria Psychiatric: A+Ox3, euthymic affect Lymphatic: no cervical or axillary lymphadenopathy Results & Data ([facility]) Vital Signs (Past 12 Hours) Vital Signs Temp Pulse Pulse Resp BP Pulse Ox O2 Del Method 01/19/23 07:42 36.5 C 69 16 136/68 95 Nasal Cannula 01/19/23 07:13 64 01/19/23 02:57 36.6 C 66 16 117/67 98 Nasal Cannula 01/18/23 23:00 Nasal Cannula 01/19/23 00:35 70 01/18/23 23:00 36.3 C L 69 18 122/53 L 96 Nasal Cannula O2 Flow Rate 01/19/23 07:42 3 01/19/23 07:13 01/19/23 02:57 3 01/18/23 23:00 2 01/19/23 00:35 01/18/23 23:00 3 Laboratory Results T Bili 3.9, AST 82, ALT 77, Alk Phos 152. WBC 4, Hb 7.8, Hct 26, Plats 134, Na 131, K 4.0, Cl 94, CO2 32, BUN24, Cr 1.06, glucose 97. Diagnostic Findings CTAP w IV on 01/16/23: 1. No acute or inflammatory process. 2. Cirrhosis with splenomegaly. 3. Nonobstructing kidney stones, more numerous in the right kidney. 4. Complex exophytic cyst arising from the medial aspect of the right kidney upper pole, similar to prior MRI MRCP completed this morning; 5mm CBD stone.
[2023-01-19] MEDS: DOCUSATE SODIUM/SENNA 50/8.6MG TAB PO SCH (11:24)
[2023-01-19] MEDS: CEFEPIME 2,000 MG in SYRINGE 0 ML IV SCH ×2 (11:24→17:12)
--- NOTE | 2023-01-19 11:38 | Magnetic Resonance Report ---
MRCP CLINICAL HISTORY: Jaundice. TECHNIQUE: Utilizing a 1.5 Eva magnet and dedicated coil, multiplanar, multiecho imaging of the upp er abdomen was performed utilizing heavily T2 weighted pulsing sequences without IV contrast. COMPARISON STUDY: MRCP October 02, 2020. MRI of the abdomen January 13, 2022. CT of the abdomen and pe lvis January 16, 2023. FINDINGS: Nodularity of the liver surface is again noted. This indicates cirrhosis. No hepatic lesion s are identified although sensitivity is diminished on this unenhanced exam. Splenomegaly is again no elsa. This is unchanged since prior MRI of January 13, 2022. There is no biliary ductal dilatation. Numer ous gallstones within the gallbladder are noted. There is no evidence for acute cholecystitis. There is a probable 5 mm common bile duct calculus. No evidence for acute pancreatitis. Pancreatic glandula r atrophy is again noted. Postoperative findings from gastric bypass are present. A 1.2 cm T2 hypoint ense lesion within the upper pole of the right kidney is better depicted on MRI of January 13, 2022. Thi s remains unchanged. Prominent upper abdominal lymph nodes are unchanged. IMPRESSION: 1. Probable 5 mm common bile duct calculus. No biliary ductal dilatation. 2. Cholelithiasis. No evidence for acute cholecystitis. 3. Cirrhosis. Stable splenomegaly. ACT 112: Negative or not required by law. Electronically signed by: Pro Joya M.D. 01/19/2023 11:36 AM
--- NOTE | 2023-01-19 14:18 | Hospitalist Progress Note ---
Date of Service January 19, 2023 Assessment & Plan (1) Severe sepsis: Plan: Severe sepsis Left Leg Cellulitis-POA Possible Pneumonia H/O recent Left total knee replacement UTI ruled out H/O recurrent ESBL E. coli UTI on fosfomycin suppression treatment Evaluated by her orthopedic physician on 01/15/23 and started on Keflex. (Recent [facility] confinement from Jan 05 to January 10, 2023 for elective left robotic assisted total knee arthroplasty). Urine culture negative Blood culture negative to date Venous Doppler:There is no sonographic evidence of deep venous thrombosis identified in the left lower extremity. Received IV fluids Continue meropenem, doxycycline>> cefepime, doxycycline Appreciate orthopedics input Needs follow-up with orthopedics upon discharge Mild troponin elevation Likely type II GA secondary to above Denies angina symptoms Hyperbilirubinemia Obstructive jaundice Transaminitis H/O NAFLD cirrhosis MRCP:Probable 5 mm common bile duct calculus. No biliary ductal dilatation. Cho lelithiasis. No evidence for acute cholecystitis. Cirrhosis. Stable splenomegaly. Monitor LFTs Avoid hepatotoxic agents as able Appreciate GI Input Planned for ERCP tomorrow NPO after midnight TYLER on CKD stage IIIA [place] [facility] [place] Avoid nephrotoxic agents as able Monitor renal function Anemia of chronic disease HB at baseline No bleeding issues Monitor CBC Acute on chronic respiratory failure with hypoxia Mild pulmonary edema Possible pneumonia H/O respiratory failure secondary to pulmonary hypertension, ILD, BERRY/nocturnal hypoxemia Elevated procalcitonin Continue antibiotics as above Intolerant to CPAP Other conditions: SSS S/P PPM: Continue sotalol Hypertension GERD/H/O Esophageal varices: Continue Protonix Ovarian cancer S/P surgery/incomplete chemotherapy Prediabetes, HbA1c 5.8 last Dec 2019 chronic thrombocytopenia secondary to cirrhosis Past tobacco abuse DVT Px: Heparin SQ Code Status Full code Disposition PT OT prior to discharge Admission and Anticipated Discharge Date Admission Date: January 16, 2023 Subjective Patient is seen and examined at bedside No new complaints MRCP suggestive of small CBD stone Left leg pain better Denies any chest pain, hematuria, dyspnea, nausea, abdominal pain Review of Systems Review of Systems: All systems reviewed & are unremarkable except as noted in Subjective Physical Exam Physical Exam: Physical Exam: Vitals signs as noted above General Appearance:Obese, no apparent distress Head: normocephalic, Atraumatic Eyes: normal inspection, EOMI, +Icteric Neck: supple, Trachea midline Respiratory/Chest: Decreased breath sounds, CTA, +Pacer, No accessory muscle use Cardiovascular: S1, S2, No murmur Abdomen/GI:Soft, Non tender, Bowel sounds present Extremities/Musculoskeletal:normal inspection, LLE edema, L knee surgical scar Neurologic/Psych:AAOX3, grossly no focal neurological deficits Skin: normal color, warm, +Jaundice Results & Data Results & Data ([facility]) Vital Signs (Past 12 Hours) Vital Signs Temp Pulse Pulse Resp BP Pulse Ox O2 Del Method 01/19/23 08:00 Room Air 01/19/23 10:49 36.5 C 64 16 125/47 L 97 Nasal Cannula 01/19/23 07:42 36.5 C 69 16 136/68 95 Nasal Cannula 01/19/23 07:13 64 01/19/23 02:57 36.6 C 66 16 117/67 98 Nasal Cannula O2 Flow Rate 01/19/23 08:00 01/19/23 10:49 3 01/19/23 07:42 3 01/19/23 07:13 01/19/23 02:57 3 Laboratory Results Short CBC 01/19/23 Range/Units 05:53 WBC 4.70 L (4.8-10.8) K/ul Hgb 7.8 L (12.0-16.0) g/dl Hct 26.0 L (37.0-47.0) % Plt Count 134 (130-400) K/uL BMP 01/19/23 05:53 Sodium 131 L Potassium 4.0 Chloride 94 L Carbon Dioxide 32 BUN 24 H Creatinine 1.06 Glucose 97 Calcium 8.6 Liver Function 01/19/23 Range/Units 05:53 Total Bilirubin 3.9 H (0.2-1.0) mg/dl AST 82 H (13-39) U/L ALT 77 H (7-52) U/L Alkaline Phosphatase 152 H (34-104) U/L Albumin 3.2 L (3.4-5.0) gm/dl
[2023-01-19] MEDS: diphenhydrAMINE HCL 25 MG/10 ML UDC PO PRN (19:10)
[2023-01-20] MEDS: CEFEPIME 2,000 MG in SYRINGE 0 ML IV SCH ×3 (01:20→17:56)
[2023-01-20] MEDS: FOLIC ACID 1 MG TAB PO SCH (08:47)
[2023-01-20] MEDS: DOCUSATE SODIUM/SENNA 50/8.6MG TAB PO SCH (08:47)
[2023-01-20] MEDS: LORATADINE 10 MG TAB PO SCH (08:47)
[2023-01-20] MEDS: PANTOprazole 40 MG TAB PO SCH ×2 (08:48→20:02)
[2023-01-20] MEDS: DOXYCYCLINE HYCLATE 100 MG CAP PO SCH ×2 (08:48→20:01)
[2023-01-20] MEDS: HEPARIN SOD 5,000 UNIT/0.5 ML VIAL SQ SCH ×2 (08:48→20:02)
[2023-01-20] MEDS: SOTALOL HCL 80 MG TAB PO SCH ×2 (08:48→20:02)
[2023-01-20] MEDS: LORazepam 0.5 MG TAB PO PRN ×3 (08:50→20:13)
[2023-01-20 09:17] LABS: Hematocrit (blood only) 26.8 % (37.0-47.0); Mean Corpuscular Hemoglobin 27.1 pg (25.0-34.0); Mean Corpuscular Hgb Conc 29.9 g/dL (32.0-36.0); Mean Corpuscular Volume 90.8 fL (80.0-100.0); Mean Platelet Volume 10.2 fL (9.4-12.4); Nucleated RBC # (auto) 0.02 K/uL (0-0.12); Nucleated RBC % (auto) 0.7 %; Platelet Count 130 K/uL (130-400); RDW Coefficient of Variation 21.5 % (11.5-14.5); Red Blood Count 2.95 M/uL (4.20-5.40); White Blood Count 2.77 K/ul (4.8-10.8)
[2023-01-20 09:34] LABS: Albumin Globulin Ratio 1.1 (0.9-2); Albumin Level 3.5 gm/dl (3.4-5.0); BUN Creatinine Ratio 26.4 (10-20); Bilirubin,Total 3.2 mg/dl (0.2-1.0); Calcium 8.7 mg/dl (8.5-10.1); Creatinine Clr Calc Pharmacy 74.8 ml/min; Est GFR (African American) 74.6 ml/min; Est GFR (Non-African American) 64.4 ml/min; Globulin 3.3 gm/dl (2.5-4.0); Potassium 4.3 mmol/L (3.5-5.1); Total Protein 6.8 gm/dl (6.0-8.3)
--- NOTE | 2023-01-20 10:07 | Gastroenterology Progress Note ---
Date of Service January 20, 2023 Assessment & Plan (1) Liver cirrhosis secondary to WEIR: (2) Choledocholithiasis: Plan 1. ERCP this afternoon by Dr. Reyes for choledocholithiasis. 2. Keep NPO. 3. Follow LFTs periodically. 4. Continue OP GI f/u w Yuridia Martin NP for cirrhosis. Admission and Anticipated Discharge Date Admission Date: January 16, 2023 Supervising Physician Co-Signing Physician Notes Patient was seen and examined with TAWANNA Yap 01/20 her note reflects our findings and plan. Subjective 67 yr female w WEIR cirrhosis admitted w jaundice a wk after knee replacement. MRCP w probable 5mm CBD stone. LFTs el but improving T Bili 7.9->3.9, AST 218->82, ALT 114->22, Alk Phos 187-> 152. No abd pain. Review of Systems Review of Systems: ROS: Gen: Denies weakness, fevers, weight loss Eyes: No eye redness, or pain, no recent vision changes Resp: No SOB, no cough Cardio: No palpitations/irregular beats, no chest pain GI: No abdominal pain, no nausea/vomiting : Denies pain on urination Skin: + jaundice, No itching or rashes M/S left leg robotic knee replacement healing well. Physical Exam Constitutional: WD/WN, vitals as above ENMT: external ear and nose normal, oropharynx normal Neck: trachea midline, no thyromegaly Respiratory: normal respiratory effort, lungs clear to auscultation (sat at 99% on 3L, no SOB) Cardiovascular: RRR, no murmur, no edema Gastrointestinal (Abdomen): normal bowel sounds, soft, nontender, no hepatosplenomegaly Musculoskeletal: Left leg incisions healing well. Neurologic: PERRL, EOMI, accommodation nl, no face palsy, no dysarthria Psychiatric: A+Ox3, euthymic affect Lymphatic: no cervical or axillary lymphadenopathy Results & Data ([facility]) Vital Signs (Past 12 Hours) Vital Signs Temp Pulse Pulse Resp BP Pulse Ox O2 Del Method 01/20/23 07:40 36.4 C L 61 18 125/71 99 Nasal Cannula 01/20/23 03:42 36.6 C 62 20 147/77 H 93 Nasal Cannula 01/19/23 23:36 36.7 C 65 18 113/69 93 Nasal Cannula 01/19/23 22:55 63 O2 Flow Rate 01/20/23 07:40 3 01/20/23 03:42 3 01/19/23 23:36 3 01/19/23 22:55 Laboratory Results LFTs see HPI WBC 4, Hb 7.8, Hct 26, Plts 134, Na 131, K 4.0, Cl 94, CO2 32, BUN 24, Cr 1.06, glucose 97. Diagnostic Findings MRCP 01/19/23: 1. Probable 5 mm common bile duct calculus. No biliary ductal dilatation. 2. Cholelithiasis. No evidence for acute cholecystitis. 3. Cirrhosis. Stable splenomegaly. CTAP w IV 01/16/23: 1. No acute or inflammatory process. 2. Cirrhosis with splenomegaly. 3. Nonobstructing kidney stones, more numerous in the right kidney. 4. Complex exophytic cyst arising from the medial aspect of the right kidney upper pole, similar to prior MRI.
[2023-01-20] MEDS ORDERED: diphenhydrAMINE 50 MG/ML VIAL IV ONE (12:27)
--- NOTE | 2023-01-20 14:12 | Hospitalist Progress Note ---
Date of Service January 20, 2023 Assessment & Plan (1) Severe sepsis: Plan: Severe sepsis Left Leg Cellulitis-POA Possible Pneumonia H/O recent Left total knee replacement UTI ruled out H/O recurrent ESBL E. coli UTI on fosfomycin suppression treatment Evaluated by her orthopedic physician on 01/15/23 and started on Keflex. (Recent [facility] confinement from Jan 05 to January 10, 2023 for elective left robotic assisted total knee arthroplasty). Urine culture negative Blood culture negative to date Venous Doppler:There is no sonographic evidence of deep venous thrombosis identified in the left lower extremity. Received IV fluids Continue meropenem, doxycycline>> cefepime, doxycycline Appreciate orthopedics input Needs follow-up with orthopedics upon discharge Transition to p.o. antibiotics as able Mild troponin elevation Likely type II ME secondary to above Denies angina symptoms Hyperbilirubinemia Obstructive jaundice Transaminitis H/O NAFLD cirrhosis MRCP:Probable 5 mm common bile duct calculus. No biliary ductal dilatation. Cholelithiasis. No evidence for acute cholecystitis. Cirrhosis. Stable splenomegaly. Monitor LFTs Avoid hepatotoxic agents as able Appreciate GI Input Planned for ERCP today--pending Needs follow-up with GI upon discharge LFTs improving TYLER on CKD stage IIIA Follows with [facility] nephrology Avoid nephrotoxic agents as able Monitor renal function Renal function back to baseline Anemia of chronic disease HB at baseline No bleeding issues Monitor CBC Acute on chronic respiratory failure with hypoxia Mild pulmonary edema Possible pneumonia H/O respiratory failure secondary to pulmonary hypertension, ILD, BERRY/nocturnal hypoxemia --CXR:Cardiomegaly and mild pulmonary edema. Interstitial opacities with likely left greater than right airspace opacities which may represent atelectasis, pneumonia, and/or aspiration. Elevated procalcitonin Continue antibiotics as above Intolerant to CPAP Other conditions: SSS S/P PPM: Continue sotalol Hypertension GERD/H/O Esophageal varices: Continue Protonix Ovarian cancer S/P surgery/incomplete chemotherapy Prediabetes, HbA1c 5.8 last Dec 2019 chronic thrombocytopenia secondary to cirrhosis Past tobacco abuse DVT Px: Heparin SQ Code Status Full code Disposition PT OT prior to discharge Admission and Anticipated Discharge Date Admission Date: January 16, 2023 Subjective Patient is seen and examined at bedside Left knee pain is controlled Plan for ERCP today No new complaints Feels tired Denies any chest pain, hematuria, dyspnea, nausea, abdominal pain Review of Systems Review of Systems: All systems reviewed & are unremarkable except as noted in Subjective Physical Exam Physical Exam: Physical Exam: Vitals signs as noted above General Appearance:Obese, no apparent distress Head: normocephalic, Atraumatic Eyes: normal inspection, EOMI, +Icteric Neck: supple, Trachea midline Respiratory/Chest: Decreased breath sounds, CTA, +Pacer, No accessory muscle use Cardiovascular: S1, S2, No murmur Abdomen/GI:Soft, Non tender, Bowel sounds present Extremities/Musculoskeletal:normal inspection, LLE edema, L knee surgical scar Neurologic/Psych:AAOX3, grossly no focal neurological deficits Skin: normal color, warm, +Jaundice Results & Data Results & Data ([facility]) Vital Signs (Past 12 Hours) Vital Signs Temp Pulse Pulse Resp BP Pulse Ox O2 Del Method 01/20/23 11:00 68 01/20/23 11:16 36.5 C 60 18 117/69 97 Nasal Cannula 01/20/23 09:30 Nasal Cannula 01/20/23 07:40 36.4 C L 61 18 125/71 99 Nasal Cannula 01/20/23 03:42 36.6 C 62 20 147/77 H 93 Nasal Cannula O2 Flow Rate 01/20/23 11:00 01/20/23 11:16 3 01/20/23 09:30 2 01/20/23 07:40 3 01/20/23 03:42 3 Laboratory Results Short CBC 01/20/23 Range/Units 08:03 WBC 2.77 L (4.8-10.8) K/ul Hgb 8.0 L (12.0-16.0) g/dl Hct 26.8 L (37.0-47.0) % Plt Count 130 (130-400) K/uL BMP 01/20/23 08:03 Sodium 133 L Potassium 4.3 Chloride 96 L Carbon Dioxide 32 BUN 24 H Creatinine 0.91 Glucose 93 Calcium 8.7 Liver Function 01/20/23 Range/Units 08:03 Total Bilirubin 3.2 H (0.2-1.0) mg/dl AST 58 H (13-39) U/L ALT 63 H (7-52) U/L Alkaline Phosphatase 162 H (34-104) U/L Albumin 3.5 (3.4-5.0) gm/dl
--- NOTE | 2023-01-20 14:29 | History & Physical Bridge Note ---
Date of Service January 20, 2023 History & Physical Bridge Note I have examined the patient, reviewed the History & Physical and in the interval since the performance of the History & Physical I have noted the following changes of clinical significance: no changes noted EUS/ERCP Patient was explained in detail regarding risks, benefits, limitations and alternatives of the above endoscopic procedure. Risks of intravenous sedation used for procedure were also explained. Risks include, but not limited to perforation, bleeding, infection, respiratory distress, cardiac arrest and . Patient is also aware about the possibility of missed lesion. Patient's questions were answered. The patient verbalized understanding the information and agreed to undergo the procedure.
--- NOTE | 2023-01-20 14:30 | Anesthesiology Consultation ---
Date of Service January 20, 2023 Assessment & Plan Chart Review Chart Review: Acceptable Risk for Surgery Consults Requested none History Surgery Operation Date: 01/20/23 07:00 Proposed Procedures p Endoscopic Retrograde Cholangiopancreatogram - Sivakumar Reyes MD Height/Weight Height: 5 ft 7 in Weight: 110.5 kg Allergies Allergy/AdvReac Type Severity Reaction Status Date / Time levofloxacin Allergy Intermediate LE Verified 09/25/22 09:33 swelling and blistering tramadol Allergy Mild Rash Verified 09/25/22 09:33 paclitaxel [From Taxol] Allergy facial Verified 09/25/22 09:33 flushing, bradycardia clindamycin AdvReac Intermediate PT Verified 09/25/22 09:33 CONTRACTED C-DIFF adhesive AdvReac Mild SKIN Verified 09/25/22 09:33 BLISTERS SOME TIMES shellfish derived AdvReac Mild NAUSEA,DIARRHEA, Verified 09/25/22 09:33 VOMITING doxorubicin AdvReac Hypoxia Verified 09/25/22 09:33 Medications Home Medications Medication Instructions Recorded Confirmed Last Taken lorazepam 0.5 mg tablet 0.5 mg PO TID PRN Anxiety 10/18/18 01/17/23 09/25/22 07:15 sertraline 100 mg tablet (Zoloft) 100 mg PO QAM 10/18/18 01/16/23 01/16/23 10:00 cyclobenzaprine 5 mg tablet 5 mg PO BID PRN Muscle Spasm 08/25/19 01/16/23 01/16/23 10:00 omeprazole 20 mg capsule,delayed 20 mg PO BID 04/12/20 01/16/23 01/16/23 10:00 release folic acid 1 mg tablet 1 mg PO QAM 05/08/20 01/16/23 01/16/23 10:00 fosfomycin tromethamine 3 gram 3 g PO WK 10/01/20 01/16/23 01/11/23 oral packet (Monurol) sotalol 80 mg tablet 80 mg PO BID 10/01/20 01/16/23 01/16/23 10:00 cholecalciferol (vitamin D3) 50 2,000 unit PO QAM #90 tabs 04/09/21 01/16/23 01/16/23 10:00 mcg (2,000 unit) tablet acetaminophen [Tylenol] 325 mg PO PRN 04/15/21 01/16/23 01/16/23 14:00 Portable Oxygen #1 ea 05/20/22 01/16/23 Unknown hydrochlorothiazide 25 mg tablet 25 mg PO QAM #90 tabs 09/17/22 01/16/23 01/16/23 10:00 loratadine 10 mg tablet (Claritin) 10 mg PO QAM 09/18/22 01/16/23 01/16/23 10:00 Keflex 01/16/23 01/16/23 Proventil HFA 2 puff 01/16/23 12/28/22 Active Medications Generic Name Dose Route Start Last Admin Trade Name Freq PRN Reason Stop Dose Admin Acetaminophen 325 mg 01/17/23 00:59 01/18/23 03:30 Acetaminophen 325 Mg Tab PO 02/16/23 00:58 325 mg Q6H PRN Administration Mild Pain (Scale 1, 2, 3) Diphenhydramine HCl 12.5 mg 01/18/23 14:56 01/19/23 19:10 Diphenhydramine Hcl 25 Mg/10 Ml Udc PO 02/17/23 14:55 12.5 mg Q8H PRN Administration Itching Doxycycline Hyclate 100 mg 01/17/23 09:00 01/20/23 08:48 Doxycycline Hyclate 100 Mg Cap PO 01/24/23 08:59 100 mg BID ADINA Administration Folic Acid 1 mg 01/17/23 09:00 01/20/23 08:47 Folic Acid 1 Mg Tab PO 02/16/23 08:59 1 mg QAM ADINA Administration Heparin Sodium (Porcine) 5,000 units 01/18/23 21:00 01/20/23 08:48 Heparin Sod 5,000 Unit/0.5 Ml Vial SQ 02/17/23 20:59 Not Given Q12 ADINA Cefepime HCl 2,000 mg/ Syringe 20 mls @ 5 mls/min 01/19/23 10:00 01/20/23 08:51 IV 01/26/23 09:59 5 mls/min Q8H ADINA Administration Loratadine 10 mg 01/17/23 09:00 01/20/23 08:47 Loratadine 10 Mg Tab PO 02/16/23 08:59 10 mg QAM ADINA Administration Lorazepam 0.5 mg 01/17/23 00:50 01/20/23 13:36 Lorazepam 0.5 Mg Tab PO 02/16/23 08:59 0.5 mg TID PRN Administration Anxiety Oxycodone HCl 5 - 10 mg 01/17/23 00:59 01/19/23 20:43 Oxycodone Hcl Ir 5 Mg Tab (Immediate Release) PO 01/31/23 00:58 10 mg QID PRN Administration Pain Pantoprazole Sodium 40 mg 01/17/23 09:00 01/20/23 08:48 Pantoprazole 40 Mg Tab PO 02/16/23 08:59 40 mg BID ADINA Administration Senna/Docusate Sodium 1 tab 01/17/23 00:55 01/20/23 08:47 Docusate Sodium/Senna 50/8.6mg Tab PO 02/16/23 00:54 1 tab QAM ADINA Administration Sotalol HCl 80 mg 01/17/23 01:00 01/20/23 08:48 Sotalol Hcl 80 Mg Tab PO 02/16/23 00:59 80 mg BID ADINA Administration NPO Date Last Intake of Fluids: 01/19/23 Time Last Intake of Fluids: 21:00 Date Last Intake of Solids: 01/18/23 Time Last Intake of Solids: 08:00 Past Medical History Medical History Anemia hx blood transfusions Hgb baseline 8-9 Anxiety and depression Atrial fibrillation No AC due to GI bleed and anemia Chronic hypoxemic respiratory failure Chronic right-sided HF (heart failure) Likely per cardio secondary to obesity hypo ventilatory syndrome/Pickwickian CKD (chronic kidney disease), stage [address] 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 WELSH). last check 3 weeks ago Restless leg syndrome Sick sinus syndrome Spinal stenosis HX Past Family History Family History Mother Scleroderma Lupus Family history of reaction to anesthesia nausea Father Coronary heart disease Brother Fatty liver Aunt Cancer unspecified Grandfather (Paternal) Heart disease Grandfather (Maternal) Lung disease Grandmother (Paternal) Stroke Grandmother (Maternal) Family history of diabetes mellitus Past Surgical History Surgical History H/O arthroscopy of knee H/O cystoscopy H/O gastric bypass "1980, reversed in same year" History of appendectomy (~09/07/20) History of arthroscopy LEFT KNEE History of colonoscopy History of ERCP (~09/2020) History of esophagogastroduodenoscopy (EGD) History of herniorrhaphy VENTRAL HERNIA REPAIR= 04/27/17= GRADE VIEW 2, CLEMENTE#2, ETT 7.0 AT [facility] History of lithotripsy History of tonsillectomy History of total hysterectomy with bilateral salpingo-oophorectomy (BSO) (~09/07/20) @ [facility] – [place] with appy at same time History of vascular access device removed [place] teeth removed Social History Smoking Status: Former smoker tobacco type: cigarettes Smoking cigarettes per day: couple cigs on weekends in [place] or Chew Tobacco: No Hx Alcohol Use: No Hx Substance Use: No substance use type: does not use Physical Exam Vital Signs Last Vital Signs Temp 36.3 C L 01/20/23 14:10 Pulse 67 01/20/23 14:10 Resp 20 01/20/23 14:10 BP 141/74 H 01/20/23 14:10 Pulse Ox 99 01/20/23 14:10 O2 Del Method Nasal Cannula 01/20/23 14:10 O2 Flow Rate 3 01/20/23 14:10 Testing Laboratory Results 01/20/23 08:03 01/20/23 08:03 PT 11.8 Seconds (9.0-12.0) 01/16/23 22:16 INR 1.1 (0.9-1.1) 01/16/23 22:16 Urine Color Dark Yellow 01/16/23 20:30 Urine Appearance Cloudy (Clear) A 01/16/23 20:30 Urine pH 6.0 (4.5-7.5) 01/16/23 20:30 Ur Specific [place] 1.022 (1.000-1.030) 01/16/23 20:30 Urine Protein 1+ (Negative) H 01/16/23 20:30 Urine Glucose (UA) Trace (Negative) H 01/16/23 20:30 Urine Ketones Trace (Negative) H 01/16/23 20:30 Urine Nitrite Positive (Negative) A 01/16/23 20:30 Ur Leukocyte Esterase 3+ (Negative) H 01/16/23 20:30 Urine WBC (Auto) >30 /hpf (0-5) H 01/16/23 20:30 Urine RBC (Auto) 5-10 /hpf (0-4) H 01/16/23 20:30 U Hyaline Cast (Auto) 1-5 /lpf (0-5) 01/16/23 20:30 U Epithel Cells (Auto) 10-20 /lpf (0-5) H 01/16/23 20:30 Urine Bacteria (Auto) Negative (Negative) 01/16/23 20:30 01/16/23 19:49 Aerobic Blood Culture - Preliminary Blood No growth in Aerobic bottle after 48 hours. Anaerobic Blood Culture - Preliminary No growth in Anaerobic bottle after 48 hours. 01/16/23 19:19 Aerobic Blood Culture - Preliminary Blood No growth in Aerobic bottle after 48 hours. Anaerobic Blood Culture - Preliminary No growth in Anaerobic bottle after 48 hours. 01/16/23 20:30 Urine Culture - Final Urine,Straight Cath No growth - less than 1,000 colonies/mL.
[2023-01-20] MEDS ORDERED: ePHEDrine sulfate 50 MG/ML AMP IV PRN (14:31)
[2023-01-20] MEDS ORDERED: PROMETHAZINE HCL 12.5 MG in SODIUM CHLORIDE 0.9% 50 ML IV PRN (14:31)
[2023-01-20] MEDS ORDERED: ONDANSETRON INJ 2 MG/ML 2 ML VIAL IV PRN (14:31)
[2023-01-20] MEDS ORDERED: fentaNYL citrate PF 100 MCG/2 ML VIAL IV PRN (14:31)
[2023-01-20] MEDS ORDERED: HYDROmorphone INJ 2 MG/ML SYR/VIAL IV PRN (14:31)
[2023-01-20] MEDS ORDERED: ATROPINE SULFATE 0.1 MG/ML 10ML SYR IV PRN (14:31)
[2023-01-20] MEDS ORDERED: fentaNYL citrate PF 100 MCG/2 ML VIAL ONE (14:47)
[2023-01-20] MEDS ORDERED: PROPOFOL IV EMULSION 10 MG/ML 20 ML VIAL IV ONE (14:48)
[2023-01-20] MEDS ORDERED: ONDANSETRON INJ 2 MG/ML 2 ML VIAL ONE (14:48)
[2023-01-20] MEDS ORDERED: MIDAZOLAM HCL 1 MG/ML 2ML VIAL ONE (14:54)
[2023-01-20] MEDS ORDERED: INDOMETHACIN 50 MG SUPP PR ONE (15:16)
--- NOTE | 2023-01-20 16:04 | Operative Report ---
Post Operative Report Pre & Post Diagnosis Operation Date: 01/20/23 07:00 <No data on this case meets the specified criteria> I identified the patient and participated in the time-out.: Yes Procedure Operation Date: 01/20/23 07:00 Actual Procedures p Esophagogastroduodenoscopy(Not Applicable) - Sivakumar Reyes MD s Endoscopic Ultrasonography Upper(Not Applicable) - Sivakumar Reyes MD p Endoscopic Retrograde Cholangiopancreato(Not Applicable) - Sivakumar Reyes MD Surgeon Sivakumar Reyes MD Shellfish Harvester None Estimated Blood Loss 0 Findings See Below (CBD stones removed, stent placed) Specimens None Description of Procedure EUS/ERCP I attest to the content of the Intraoperative Record and any orders documented therein. Any exceptions are noted below.
--- NOTE | 2023-01-20 16:11 | GI REPORT ---
Patient Name: Orin Bah Procedure Date: 01/20/2023 2:59 PM Date of : 1955 Admit Type: Inpatient Age: 67 Gender: Female Attending MD: Sivakumar Reyes MD, Procedure: Upper GI endoscopy Providers: Sivakumar Reyes MD Referring MD: Jose Dixon Md Indications: Abnormal MRI of the GI tract Medicines: General Anesthesia Complications: No immediate complications. Estimated Blood Loss: Estimated blood loss: none. Procedure: Pre-Anesthesia Assessment: - Prior to the procedure, a History and Physical was performed, and patient medications, allergies and sensitivities were reviewed. The patient's tolerance of previous anesthesia was reviewed. - The risks and benefits of the procedure and the sedation options and risks were discussed with the patient. All questions were answered and informed consent was obtained. - Patient identification and proposed procedure were verified prior to the procedure by the physician and the nurse. The procedure was verified in the procedure room. - Pre-procedure physical examination revealed no contraindications to sedation. After obtaining informed consent, the endoscope was passed under direct vision. Throughout the procedure, the patient's blood pressure, pulse, and oxygen saturations were monitored continuously. The Scope was introduced through the mouth, and advanced to the second part of duodenum. The upper GI endoscopy was accomplished without difficulty. The patient tolerated the procedure well. Findings: The examined esophagus was normal. Evidence of a gastric bypass was found in the stomach. The duodenal bulb and second portion of the duodenum were normal. Impression: - Normal esophagus. - A reversed gastric bypass was found. - Normal duodenal bulb and second portion of the duodenum. Recommendation: - Perform an upper endoscopic ultrasound (UEUS) today. Sivakumar Reyes MD 01/20/2023 4:11:11 PM This report has been signed electronically. Note Initiated On: 01/20/2023 2:59 PM Number of Addenda: 0 I attest to the content of the Intraoperative Record and orders documented therein, exceptions below {[id number]}
--- NOTE | 2023-01-20 16:14 | GI REPORT ---
Patient Name: Orin Bah Procedure Date: 01/20/2023 3:00 PM Date of : 1955 Admit Type: Inpatient Age: 67 Gender: Female Attending MD: Sivakumar Reyes MD, Procedure: Upper EUS Providers: Sivakumar Reyes MD Referring MD: Jose Dixon Md Indications: Elevated liver enzymes, Suspected choledocholithiasis Medicines: General Anesthesia Complications: No immediate complications. Estimated Blood Loss: Estimated blood loss: none. Procedure: Pre-Anesthesia Assessment: - Prior to the procedure, a History and Physical was performed, and patient medications, allergies and sensitivities were reviewed. The patient's tolerance of previous anesthesia was reviewed. - The risks and benefits of the procedure and the sedation options and risks were discussed with the patient. All questions were answered and informed consent was obtained. - Patient identification and proposed procedure were verified prior to the procedure by the physician and the nurse. The procedure was verified in the procedure room. - Pre-procedure physical examination revealed no contraindications to sedation. After obtaining informed consent, the endoscope was passed under direct vision. Throughout the procedure, the patient's blood pressure, pulse, and oxygen saturations were monitored continuously. The scope was introduced through the mouth, and advanced to the second part of duodenum. The upper EUS was accomplished without difficulty. The patient tolerated the procedure well. Findings: ENDOSONOGRAPHIC FINDING: : There was no sign of significant endosonographic abnormality in the ampulla. No masses were identified. There was dilation in the common bile duct which measured up to 9 mm. Many stones were visualized endosonographically in the common bile duct. The stones were round. They were hyperechoic and characterized by shadowing. Many stones were visualized endosonographically in the gallbladder. They were hyperechoic and characterized by shadowing. There was abnormal echogenicity in the entire examined liver. This area was hyperechoic. Pancreatic parenchymal abnormalities were noted in the entire pancreas. These consisted of diffuse echogenicity and hyperechoic strands. There was no sign of significant endosonographic abnormality in the left adrenal gland. There was no sign of significant endosonographic abnormality involving the celiac trunk. Impression: - There was no sign of significant pathology in the ampulla. - There was dilation in the common bile duct which measured up to 9 mm. - Many stones were visualized endosonographically in the common bile duct. - Many stones were visualized endosonographically in the gallbladder. - Fatty liver. - Pancreatic parenchymal abnormalities consisting of diffuse echogenicity and hyperechoic strands were noted in the entire pancreas. - Endosonographic images of the left adrenal gland were unremarkable. - The celiac trunk was endosonographically normal. Recommendation: - Perform an ERCP today. Sivakumar Reyes MD 01/20/2023 4:13:50 PM This report has been signed electronically. Note Initiated On: 01/20/2023 3:00 PM Number of Addenda: 0 I attest to the content of the Intraoperative Record and orders documented therein, exceptions below {[id number]}
--- NOTE | 2023-01-20 16:17 | GI REPORT ---
Patient Name: Orin Bah Procedure Date: 01/20/2023 3:01 PM Date of : 1955 Admit Type: Inpatient Age: 67 Gender: Female Attending MD: Sivakumar Reyes MD, Procedure: ERCP Providers: Sivakumar Reyes MD Referring MD: Jose Dixon Md Indications: For therapy of bile duct stone(s) Medicines: General Anesthesia Complications: No immediate complications. Estimated Blood Loss: Estimated blood loss: none. Procedure: Pre-Anesthesia Assessment: - Prior to the procedure, a History and Physical was performed, and patient medications, allergies and sensitivities were reviewed. The patient's tolerance of previous anesthesia was reviewed. - The risks and benefits of the procedure and the sedation options and risks were discussed with the patient. All questions were answered and informed consent was obtained. - Patient identification and proposed procedure were verified prior to the procedure by the physician and the nurse. The procedure was verified in the procedure room. - Pre-procedure physical examination revealed no contraindications to sedation. After obtaining informed consent, the scope was passed under direct vision. Throughout the procedure, the patient's blood pressure, pulse, and oxygen saturations were monitored continuously. The Duodenoscope was introduced through the mouth, and advanced to the duodenum and used to inject contrast into the bile duct. The ERCP was accomplished without difficulty. The patient tolerated the procedure well. Findings: The hospitality associate film was normal. The esophagus was successfully intubated under direct vision. The scope was advanced to a normal major papilla in the descending duodenum without detailed examination of the pharynx, larynx and associated structures, and upper GI tract. The upper GI tract was grossly normal. A 0.025 inch x 270 cm angled Visiglide wire was passed into the biliary tree. The short-nosed traction sphincterotome was passed over the guidewire and the bile duct was then deeply cannulated. Contrast was injected. I personally interpreted the bile duct images. Ductal flow of contrast was adequate. Image quality was adequate. Contrast extended to the main bile duct. Opacification of the entire biliary tree was successful. The maximum diameter of the ducts was 10 mm. Biliary sphincterotomy was made with a monofilament traction (standard) sphincterotome using ERBE electrocautery. There was no post-sphincterotomy bleeding. The biliary tree was swept with a 12 mm balloon starting at the bifurcation. Two stones were removed. No stones remained. Sludge was swept from the duct. One 10 Fr by 8 cm plastic biliary stent with a single external flap and a single internal flap was placed into the common bile duct. Bile flowed through the stent. The stent was in good position. Indomethacin 100 mg was given via suppository to decrease the risk of post-ERCP pancreatitis (PEP). Impression: - Choledocholithiasis was found. Complete removal was accomplished by biliary sphincterotomy and balloon extraction. - One plastic biliary stent was placed into the common bile duct. Recommendation: - Return patient to hospital winter for ongoing care. - Repeat ERCP in 2 months to remove stent. - Surgery consult for cholecystectomy. Sivakumar Reyes MD 01/20/2023 4:16:51 PM This report has been signed electronically. Note Initiated On: 01/20/2023 3:01 PM Number of Addenda: 0 I attest to the content of the Intraoperative Record and orders documented therein, exceptions below {[id number]}
--- NOTE | 2023-01-20 16:26 | Fluoroscopy Report ---
[place] ERCP biliary ductal CLINICAL HISTORY: EXPLORE DUCTS. Choledocholithiasis. COMPARISON STUDY: MRCP 01/19/2023. FLUOROSCOPY TIME: 46 seconds FLUOROSCOPY IMAGES: 5 Ka,r: 41.8 mGy FINDINGS: The ampulla was cannulated and contrast was injected into the common bile duct. A balloon s weep was performed. This is followed by placement of a common bile duct stent which appears in good p osition. IMPRESSION: Fluoroscopic assistance as above. ACT 112: Negative or not required by law. Electronically signed by: Karthik Cantu M.D. 01/20/2023 4:25 PM
--- NOTE | 2023-01-20 17:09 | Anesthesiology Progress Note ---
Date of Service January 20, 2023 Anesthesia Post Procedure Vital Signs Vital Signs: Temp Pulse Pulse Pulse Resp BP Pulse Ox 01/20/23 17:00 64 17 149/66 H 96 01/20/23 16:50 65 20 128/79 89 L 01/20/23 16:40 66 15 139/82 96 01/20/23 16:30 36.0 C L 68 19 150/80 H 94 01/20/23 14:10 36.3 C L 67 20 141/74 H 99 01/20/23 11:00 68 01/20/23 11:16 36.5 C 60 18 117/69 97 01/20/23 09:30 01/20/23 07:40 36.4 C L 61 18 125/71 99 01/20/23 03:42 36.6 C 62 20 147/77 H 93 01/19/23 23:36 36.7 C 65 18 113/69 93 01/19/23 22:55 63 01/19/23 19:35 36.6 C 66 18 123/69 97 O2 Del Method O2 Flow Rate 01/20/23 17:00 Oxymask 5 01/20/23 16:50 Nasal Cannula 3 01/20/23 16:40 Oxymask 7 01/20/23 16:30 Oxymask 7 01/20/23 14:10 Nasal Cannula 3 01/20/23 11:00 01/20/23 11:16 Nasal Cannula 3 01/20/23 09:30 Nasal Cannula 2 01/20/23 07:40 Nasal Cannula 3 01/20/23 03:42 Nasal Cannula 3 01/19/23 23:36 Nasal Cannula 3 01/19/23 22:55 01/19/23 19:35 Nasal Cannula 3 Pain Intensity Left Knee: Pain Intensity: 5 Transfer of Care Handoff Completed per policy Notes Mental Status: alert / awake / arousable and participated in evaluation Patient Amnestic to Procedure: Yes Nausea / Vomiting: adequately controlled Pain: adequately controlled Airway Patency, RR, SpO2: stable & adequate BP & HR: stable & adequate Hydration State: stable & adequate Anesthetic Complications: no major complications apparent
--- NOTE | 2023-01-20 19:22 | Surgery Consultation ---
I discussed this case with the surgical PA. I also reviewed the patient's results including labs and imaging. I agree with the plan. The patient is not agreeable to surgery during this admission. I spent a great length of time explaining the condition to her and potential implications. She then expressed understanding and agrees to see me in the office after discharge. The patient has hematology issues she would like further evaluated since her left knee surgery and has concerns about her kidneys. Date of Consultation January 20, 2023 Assessment & Plan (1) Cholelithiasis: I discussed at bedside that she is noted to have cholelithiasis without signs of cholecystitis. I did discuss with her the findings of her ERCP and noted that she has gallstones in her gallbladder that could result in the same problem in the future and therefore she should consider having a cholecystectomy. At the present time it appears as though the patient's LFTs are improving and she is completely asymptomatic in regards to her gallstones. The patient notes that if possible she would like to potentially consider being discharged home and having a cholecystectomy on an elective basis. I did tell her that this is not out of the question but would be santos to see how her LFTs appear tomorrow following her ERCP. The patient be reevaluated tomorrow we will revisit topic of the timing of potential cholecystectomy. At the present time I recommend continued patient on antibiotics that she is receiving in the form of cefepime and doxycycline. Remainder of plan as directed by primary service History of Present Illness Reason for Consultation: Cholelithiasis Attending Physician: Jose Dixon MD History of Present Illness This is a 67-year-old female who was admitted to [facility] on 01/16/2023. The patient recently underwent a left robotic assisted total knee arthroplasty on January 05 of this year. She was hospitalized until January 10 of this year. Following the surgery the patient was discharged to [facility] for acute inpatient rehab and she was discharged to home 2 days p rior to her presentation to [facility] emergency department. The day the patient presented to the emergency department she started to not feel well. She was complaining of some dysuria without flank or abdominal pain and she also noted some increased weakness. She did report some shortness of breath without any cough. She was also reporting issues with constipation. In addition the patient's family reported that she had appeared somewhat jaundiced. The patient specifically denies any fevers, shakes, or chills. She notes that she has not had any abdominal pain or nausea or vomiting. She denies any postprandial pain over the past several months. I did question her on previous abdominal surgeries and she says that she did have a gastric stapling many years ago for weight loss. In addition the patient had exploratory laparotomy and a ventral hernia repair. She has undergone a total abdominal hysterectomy, as well as an appendectomy. Since admission the patient has been treated with systemic inflammatory response syndrome with acute kidney injury and lactic acidosis and was felt that she may have been septic from either a urinary tract infection or pneumonia as well as a possible surgical site infection. She has been treated with antibiotics in form of meropenem and doxycycline. The patient was also noted to have transaminitis. The patient has had numerous labs and imaging which I independent reviewed. On day of admission she had a chest x-ray that showed mild pulmonary edema with some interstitial opacities which were felt to potentially represent pneumonia. A CT scan of the abdomen pelvis on date of admission showed patient had cirrhosis with splenomegaly and multiple nonobstructing kidney stones. There is no acute inflammatory process noted within the abdomen. Cholelithiasis was noted but there were no changes indicative of acute cholecystitis. She did have a left lower extremity venous Doppler which was negative for DVT. On 01/19/2023 due to her transaminitis she did undergo an MRCP which showed probable choledocholithiasis and cholelithiasis without evidence of cholecystitis. Because of these findings the patient underwent an ERCP today by [facility] gastro[facility]ology. Multiple stones were noted in the common bile duct which were removed. A common bile duct stent was put in place. The patient's most recent labs from today include a CBC her white blood cell count was 2.7. Hemoglobin and hematocrit were 8.0 and 26.8 which were near her baseline. Platelet count is within normal range. Chemistry profile showed sod ium and potassium were 133 and 4.3 respectively. Her BUN was 24 with a creatinine of 0.9. At time of admission her creatinine was 1.35. The patient was noted to have a total bilirubin of 8.5 at time of admission which has improved today to 3.2. She was noted to have transaminitis with an AST of 218 at time of admission which has improved to 58. Her ALT was 114 at time of admission is now improved to 63. Her alkaline phosphatase at time of admission was noted to be 187 which has improved to 162. She did not had have any evidence of elevated lipase. Due to the ERCP findings general surgery was asked to see her for consideration of cholecystectomy. At the time of my interview she was resting comfortably in bed and she was in no distress. Allergies Allergy/AdvReac Type Severity Reaction Status Date / Time levofloxacin Allergy Intermediate LE Verified 09/25/22 09:33 swelling and blistering tramadol Allergy Mild Rash Verified 09/25/22 09:33 paclitaxel [From Taxol] Allergy facial Verified 09/25/22 09:33 flushing, bradycardia clindamycin AdvReac Intermediate PT Verified 09/25/22 09:33 CONTRACTED C-DIFF adhesive AdvReac Mild SKIN Verified 09/25/22 09:33 BLISTERS SOME TIMES shellfish derived AdvReac Mild NAUSEA,DIARRHEA, Verified 09/25/22 09:33 VOMITING doxorubicin AdvReac Hypoxia Verified 09/25/22 09:33 Home Medications Medication Instructions Recorded Confirmed Type lorazepam 0.5 mg tablet 0.5 mg PO TID PRN Anxiety 10/18/18 01/17/23 History sertraline 100 mg tablet (Zoloft) 100 mg PO QAM 10/18/18 01/16/23 History cyclobenzaprine 5 mg tablet 5 mg PO BID PRN Muscle Spasm 08/25/19 01/16/23 History omeprazole 20 mg capsule,delayed 20 mg PO BID 04/12/20 01/16/23 History release folic acid 1 mg tablet 1 mg PO QAM 05/08/20 01/16/23 History fosfomycin tromethamine 3 gram 3 g PO WK 10/01/20 01/16/23 History oral packet (Monurol) sotalol 80 mg tablet 80 mg PO BID 10/01/20 01/16/23 History cholecalciferol (vitamin D3) 50 2,000 unit PO QAM #90 tabs 04/09/21 01/16/23 Rx mcg (2,000 unit) tablet acetaminophen [Tylenol] 325 mg PO PRN 04/15/21 01/16/23 History Portable Oxygen #1 ea 05/20/22 01/16/23 Rx hydrochlorothiazide 25 mg tablet 25 mg PO QAM #90 tabs 09/17/22 01/16/23 Rx loratadine 10 mg tablet (Claritin) 10 mg PO QAM 09/18/22 01/16/23 History Keflex 01/16/23 History Proventil HFA 2 puff 01/16/23 History Patient History Medical History Anemia hx blood transfusions Hgb baseline 8-9 Anxiety and depression Atrial fibrillation No AC due to GI bleed and anemia Chronic hypoxemic respiratory failure Chronic right-sided HF (heart failure) Likely per cardio secondary to obesity hypo ventilatory syndrome/Pickwickian CKD (chronic kidney disease), stage III follows [address] Dr[address] 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 WELSH). last check 3 weeks ago Restless leg syndrome Sick sinus syndrome Spinal stenosis HX Surgical History H/O arthroscopy of knee H/O cystoscopy H/O gastric bypass "1980, reversed in same year" History of appendectomy (~09/07/20) History of arthroscopy LEFT KNEE History of colonoscopy History of ERCP (~09/2020) History of esophagogastroduodenoscopy (EGD) History of herniorrhaphy VENTRAL HERNIA REPAIR= 04/27/17= GRADE VIEW 2, CLEMENTE#2, ETT 7.0 AT [facility] History of lithotripsy History of tonsillectomy History of total hysterectomy with bilateral salpingo-oophorectomy (BSO) (~1 ) @ [facility] with appy at same time History of vascular access device removed [place] teeth removed Family History Mother Scleroderma Lupus Family history of reaction to anesthesia nausea Father Coronary heart disease Brother Fatty liver Aunt Cancer unspecified Grandfather (Paternal) Heart disease Grandfather (Maternal) Lung disease Grandmother (Paternal) Stroke Grandmother (Maternal) Family history of diabetes mellitus Social History Smoking Status: Former smoker Tobacco Type: Cigarettes Cigarettes Per Day: couple cigs on weekends in ; Second Hand Exposure: No; Do You Dip or Chew Tobacco: No; Tobacco Cessation Education Requested by Patient: No Hx Alcohol Use: No Hx Substance Use: No Preferred Language: [place] Islander Communication Ability: Effective Visual Impairment: No Limitations Quality Assurance Project Manager Required: No Beliefs That Will Affect Care: None marital status: Current Living Situation: Alone Current Living Situation Comment: Lives alone in apartment Other Information That Helps Us Care for You: No Feels Safe at Home: Yes Safety Concerns: Feels Safe At This Time Assistive Devices: Glasses, Oxygen - at Night and Walker Review of Systems Constitutional: no fever and no chills Eyes: no eye pain Ear, Nose, Mouth, Throat: no ear pain Respiratory: no cough Cardiovascular: no chest pain Gastrointestinal: + constipation; no abdominal pain, no nausea and no vomiting Genitourinary: + dysuria Musculoskeletal: no back pain Integumentary: no rash Neurologic: + generalized weakness; no localized weakness Physical Exam Constitutional: WD/WN, vitals as above Eyes: + anicteric sclerae; no conjunctival abnormality ENMT: Ears: no hearing impairment and no external ear abnormality Mouth: no oropharynx abnormality Neck: trachea midline Respiratory: normal respiratory effort; no respiratory distress and no labored breathing Cardiovascular: Rate/Rhythm: regular rate and regular rhythm Gastrointestinal (Abdomen): Abdomen is rotund and soft. It is nonrigid and nondistended. There is no rebound tenderness or guarding. There is no pain with palpation specifically in the right upper quadrant. Musculoskeletal: No calf tenderness. Patient has evidence of a recent left knee arthroplasty. Her incision is clean, dry, intact with some surrounding erythema of the incision. Skin: no rashes Neurologic: moves all extremities Psychiatric: A+Ox3, euthymic affect Results & Data ([facility]) Vital Signs (Past 12 Hours) Vital Signs Temp Pulse Pulse Pulse Resp BP BP 01/20/23 18:40 36.3 C L 63 18 128/63 01/20/23 18:23 36.3 C L 67 18 142/65 H 01/20/23 18:16 01/20/23 18:15 64 01/20/23 17:49 36.7 C 68 18 150/69 H 01/20/23 17:35 62 16 149/55 H 01/20/23 17:20 62 18 128/65 01/20/23 17:10 36.4 C L 64 16 151/72 H 01/20/23 17:00 64 17 149/66 H 01/20/23 16:50 65 20 128/79 01/20/23 16:40 66 15 139/82 01/20/23 16:30 36.0 C L 68 19 150/80 H 01/20/23 14:10 36.3 C L 67 20 141/74 H 01/20/23 11:00 68 01/20/23 11:16 36.5 C 60 18 117/69 01/20/23 09:30 01/20/23 07:40 36.4 C L 61 18 125/71 Pulse Ox O2 Del Method O2 Flow Rate 01/20/23 18:40 92 Nasal Cannula 3 01/20/23 18:23 95 Nasal Cannula 4 01/20/23 18:16 Nasal Cannula 3 01/20/23 18:15 01/20/23 17:49 01/20/23 17:35 98 Oxymask 5 01/20/23 17:20 97 Oxymask 5 01/20/23 17:10 97 Oxymask 5 01/20/23 17:00 96 Oxymask 5 01/20/23 16:50 89 L Nasal Cannula 3 01/20/23 16:40 96 Oxymask 7 01/20/23 16:30 94 Oxymask 7 01/20/23 14:10 99 Nasal Cannula 3 01/20/23 11:00 01/20/23 11:16 97 Nasal Cannula 3 01/20/23 09:30 Nasal Cannula 2 01/20/23 07:40 99 Nasal Cannula 3 PG Care Time/CCT Total # of Minutes Spent Total Time Spent with Patient: Total time spent is greater than 50% in coordination of care (as documented) at patient's floor/unit and/or counseling patient: Coding Level of Care Code 24595 INT INP/OBS CARE 3/75MIN Diagnoses Cholelithiasis K80.20
[2023-01-20] MEDS: oxyCODONE HCL IR 5 MG TAB (IMMEDIATE RELEASE) PO PRN (20:13)
[2023-01-21] MEDS: CEFEPIME 2,000 MG in SYRINGE 0 ML IV SCH ×3 (01:04→17:20)
[2023-01-21 06:41] LABS: Hematocrit (blood only) 26.2 % (37.0-47.0); Hemoglobin 7.6 g/dl (12.0-16.0); Mean Corpuscular Hemoglobin 27.2 pg (25.0-34.0); Mean Corpuscular Volume 93.9 fL (80.0-100.0); Mean Platelet Volume 10.4 fL (9.4-12.4); Nucleated RBC # (auto) 0.02 K/uL (0-0.12); Nucleated RBC % (auto) 0.5 %; Platelet Count 126 K/uL (130-400); RDW Coefficient of Variation 21.5 % (11.5-14.5); Red Blood Count 2.79 M/uL (4.20-5.40); White Blood Count 3.82 K/ul (4.8-10.8)
[2023-01-21 06:57] LABS: Albumin Level 3.3 gm/dl (3.4-5.0); Bilirubin,Total 2.6 mg/dl (0.2-1.0); Calcium 8.5 mg/dl (8.5-10.1); Creatinine Clr Calc Pharmacy 58.6 ml/min; Est GFR (African American) 55.6 ml/min; Globulin 3.2 gm/dl (2.5-4.0); Potassium 4.9 mmol/L (3.5-5.1); Total Protein 6.5 gm/dl (6.0-8.3)
[2023-01-21] MEDS: SOTALOL HCL 80 MG TAB PO SCH ×2 (07:53→19:34)
[2023-01-21] MEDS: LORATADINE 10 MG TAB PO SCH (07:54)
[2023-01-21] MEDS: FOLIC ACID 1 MG TAB PO SCH (07:54)
[2023-01-21] MEDS: DOCUSATE SODIUM/SENNA 50/8.6MG TAB PO SCH (07:54)
[2023-01-21] MEDS: DOXYCYCLINE HYCLATE 100 MG CAP PO SCH (07:55)
[2023-01-21] MEDS: PANTOprazole 40 MG TAB PO SCH ×2 (07:55→19:34)
[2023-01-21] MEDS: HEPARIN SOD 5,000 UNIT/0.5 ML VIAL SQ SCH (07:56)
[2023-01-21] MEDS: oxyCODONE HCL IR 5 MG TAB (IMMEDIATE RELEASE) PO PRN ×3 (08:03→22:30)
[2023-01-21] MEDS: LORazepam 0.5 MG TAB PO PRN ×3 (08:04→22:30)
--- NOTE | 2023-01-21 10:07 | Gastroenterology Progress Note ---
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 Surgery consulted, offered choley; Pt would like to recover from knee replacement, and will consider choley as an OP. 2. Low fat diet. 3 Because had leukocytosis on arrival, would cont broad spectrum antibiotics total 7 days. 4. F/u w surgery as an OP 5. Continue OP GI f/u w Yuridia Martin NP for cirrhosis. 6. GI will sign off. Please notify us of new/worsening GI issues. Admission and Anticipated Discharge Date Admission Date: January 16, 2023 Supervising Physician Co-Signing Physician Notes I have seen and examined the patient with TAWANNA Yap whose note reflects our findings and plan. s/p ERCP. Feels good today. Outpatient rayshawn to be arranged. She will get a repeat ERCP in 8 weeks. Complete cours eof abx. Has GI follow arranged for cirrhosis. Please call with questions. Subjective 67, female Underwent ERCP yesterday w sphincterotomy, sweeping of the bile duct for mult stones/stenting. Doing well. Sitting up eating a regular diet. LFTs improving T Bili 3.2->2.6. AST 58->45, ALT 62->50. Alk Phos did sl increase 162->183. Review of Systems Review of Systems: ROS: Gen: Denies weakness, fevers, weight loss Eyes: No eye redness, or pain, no recent vision changes Resp: No SOB, no cough Cardio: No palpitations/irregular beats, no chest pain GI: No abdominal pain, no nausea/vomiting : Denies pain on urination Skin: + jaundice, No itching or rashes M/S left leg robotic knee replacement healing well. Physical Exam Constitutional: WD/WN, vitals as above ENMT: external ear and nose normal, oropharynx normal Neck: trachea midline, no thyromegaly Respiratory: normal respiratory effort, lungs clear to auscultation (sat at 99% on 3L, no SOB) Cardiovascular: RRR, no murmur, no edema Gastrointestinal (Abdomen): normal bowel sounds, soft, nontender, no hepatosplenomegaly Skin: no rashes, warm and dry Neurologic: PERRL, EOMI, accommodation nl, no face palsy, no dysarthria Psychiatric: A+Ox3, euthymic affect Lymphatic: no cervical or axillary lymphadenopathy Results & Data ([facility]) Vital Signs (Past 12 Hours) Vital Signs Temp Pulse Pulse Pulse Resp BP BP 01/21/23 08:11 36.5 C 62 16 146/64 H 01/21/23 08:16 01/21/23 00:00 61 01/20/23 23:51 36.4 C L 61 18 114/55 L Pulse Ox O2 Del Method O2 Flow Rate 01/21/23 08:11 99 Room Air 01/21/23 08:16 Nasal Cannula 3 01/21/23 00:00 01/20/23 23:51 97 Nasal Cannula 3 Laboratory Results LFTs: She HPI WBC 3.8, Hgb 7.6, Hct 26, plts 126, PT 11.8, INR 1.1, Na 134, K 4.2, Cl 102, CO2 18, BUN 102, Cr 3.2 Diagnostic Findings ERCP 01/20/23: Impression: - Choledocholithiasis was found. Complete removal was accomplished by biliary sphincterotomy and balloon extraction. - One plastic biliary stent was placed into the common bile duct. Recommendation: - Return patient to hospital winter for ongoing care. - Repeat ERCP in 2 months to remove stent. - Surgery consult for cholecystectomy
--- NOTE | 2023-01-21 12:25 | Surgery Progress Note ---
I saw this patient with the PA and devised the plan. Date of Service January 21, 2023 Assessment & Plan (1) Choledocholithiasis: Plan: Patient is POD#1 ERCP for choledocholithiasis. stent placed. gen surgery consulted for consideration of lap rayshawn WBC 3, Hbg 7.6. LFTs improving-- tb 2.6(3.2), AST 46, ALT 50 She has no abdominal complaints. tolerating diet. no pain/n/v discussed with pt reasoning behind performing lap rayshawn after choledocholithiasis is found. she is agreeable, however feels as though she has been through a lot [facility] santos over the last month or so. concerned about her Hbg and it dropping even lower should she have surgery and not being able to recover fully from her knee surgery, etc. Reassurance was given to the patient. As labs are improving, she has no abdominal complaints, tolerating a diet agree she can be optimized prior to surgical intervention. She wishes her reporting coordinator dr. lopez and sonar watchstander to be aware...if hospital summary could be sent to them upon discharge that would be appreciated we will see her in the office next week to discuss lap rayshawn in short order and she is agreeable with plan pt seen/examined with dr. maguire (2) Cholelithiasis: Admission and Anticipated Discharge Date Admission Date: January 16, 2023 Subjective Patient is feeling well. Tolerating a diet. No n/v. very concerned about her Hbg. She is understanding to why it is recommended to have her gallbladder removed, but wants to wait until she is in a bit better health and optimized medically prior to proceeding. Reports some SOB when the supplemental oxygen is removed. Physical Exam Physical Exam: awake/alert, no distress Respiratory: normal respiratory effort (on supplemental O2) Gastrointestinal (Abdomen): Inspection/Auscultation: abdomen not distended Percussion/Palpation: abdomen soft; abdomen nontender Results & Data Vital Signs (Past 12 Hours) Vital Signs Temp Pulse Pulse Resp BP Pulse Ox O2 Del Method 01/21/23 11:30 36.9 C 61 16 166/73 H 93 Nasal Cannula 01/21/23 07:00 65 01/21/23 08:11 36.5 C 62 16 146/64 H 99 Room Air 01/21/23 08:16 Nasal Cannula O2 Flow Rate 01/21/23 11:30 3 01/21/23 07:00 01/21/23 08:11 01/21/23 08:16 3 PG Care Time/CCT Total # of Minutes Spent Total Time Spent with Patient: Total time spent is greater than 50% in coordination of care (as documented) at patient's floor/unit and/or counseling patient: Coding Level of Care Code 08749 SUB INP/OBS CARE 12/03MIN Diagnoses Choledocholithiasis K80.50 Cholelithiasis K80.20
[2023-01-21] MEDS ORDERED: SODIUM CHLORIDE 0.9% 250 ML IV PRN (16:58)
--- NOTE | 2023-01-21 17:35 | Hospitalist Progress Note ---
Date of Service January 21, 2023 Assessment & Plan (1) Severe sepsis: (2) Post-op pneumonia: (3) Choledocholithiasis: (4) Liver cirrhosis secondary to WEIR: (5) S/P left knee arthroscopy: (6) Hypoxia: (7) Hyperbilirubinemia: (8) BERRY (obstructive sleep apnea): (9) Atrial fibrillation: (10) HTN (hypertension): (11) CKD (chronic kidney disease), stage III: (12) Obesity, morbid, BMI 40.0-49.9: (13) Depression: Plan Sepsis appears to have been from post operative pneumnia as there has never been any significant concern for cellulitis of the left leg around her surgical sites. Additionally, there were no concerns for a biliary tract infection, only CBD obstruction. UTI ruled out H/O recurrent ESBL E. coli UTI on fosfomycin suppression treatment Blood culture negative to date Venous Doppler:There is no sonographic evidence of deep venous thrombosis identi fied in the left lower extremity. Received IV fluids Continue meropenem, doxycycline>> cefepime, doxycycline>> Augmentin Needs follow-up with orthopedics upon discharge, already completed rehab recently. Mild troponin elevation Likely type II [place] secondary to above Denies angina symptoms, no further workup at this time. Hyperbilirubinemia with Obstructive jaundice and Transaminitis H/O NAFLD cirrhosis MRCP:Probable 5 mm common bile duct calculus. No biliary ductal dilatation. Cholelithiasis. No evidence for acute cholecystitis. Cirrhosis. Stable splenomegaly. ERCP performed 01/20 with stent placed Needs follow-up with GI upon discharge for stent removal. LFTs/bili improved/resolved to normal levels. TYLER on CKD stage IIIA [place] [facility] Anemia of chronic disease with recent acute post operative blood loss anemia: Baseline H/H is 10-12 on retacrit (intermittently held because of high Hb levels recently) She has no active bleeding issues, but is concerned as a result of bleeding in the past. She received 1 unit of blood post operatively at [facility] [place] a couple of weeks ago. She is demanding enough blood to get her levels up preoperatively, prior to any consideration for lap rayshawn Offered 1 unit with reported symptoms of SOB and fatigue. Repeat CBC and reassess with new hospitalist in am. Ongoing post operative hypoxia, worse from her baseline. Mild pulmonary edema vs. Possible pneumonia Given sepsis picture on admission and elevated procalcitonin, favoring the latter) H/O respiratory failure secondary to pulmonary hypertension, ILD, BERRY/nocturnal hypoxemia (unable to tolerate CPAP per records review) Other chronic, stable conditions: SSS S/P PPM: Continue sotalol Hypertension GERD/H/O Esophageal varices: Continue Protonix Ovarian cancer S/P surgery/incomplete chemotherapy Prediabetes, HbA1c 5.8 last Dec 2019 chronic thrombocytopenia secondary to cirrhosis Past tobacco abuse DVT Px: Lovenox Full code Dispo-uncertain at this time. Patient doesn't feel well enough to leave the hospital at this time. Re-evaluate symptoms and H/H in am. I spent a total [id number] coordinating, documenting, and providing care for this patient excluding time spent in the performance of separately billed services Melissa Cooper DO [facility] Hospitalist Admission and Anticipated Discharge Date Admission Date: January 16, 2023 Subjective 67 yo F presented with sepsis likely related to a post operative pneumonia. Today she denies cough, fevers, chills but reports needing oxygen with ambulation since her surgery, an increase from her typical need for oxygen at night We discussed the issue of her CBD stone and that her bilirubin levels came down and there was no sign of GI infection Labs and imaging studies including her CXR, were reviewed in detail with she and her siblings at bedside She became upset about her Hb level saying it was 7.6 and has been low post- operatively. She said she hasn't received her retacrit (which on review of the notes and with her assembly line driver, was stopped becuase her Hb exceeded the threshold to give) She became upset when we talked about indications for giving blood saying her Hb can drop "6 to 4 like that (snapping fingers)" she answered to me that yes she was short of breath and more fatigued than normal and we discussed giving her 1 unit of blood today for symptomatic anemia. She said that one unit of blood wont' be enough, especially with the surgery, if she were to have it because her Hb will surely fall again. I explained that we would monitor it and could even check it more than once daily, and she shook her head. She was very upset and her sister was also upset, and when I asked her sister why she was upset, she said, "because I don't feel like anyone is listening to my sister." I offered for her to call her assembly line driver to discuss recommendations, but stated that he doesn't round at the hospital. She snapped that she already had. I left the room and contacted the service excellence rep who came to the room. It appeared that everything was fine and I went back into the room around 5pm, about 1/5 to 2 hours after the initial encounter. A friend was now at bedside. I asked the patient permission to discuss her issues in front of the friend and she gave permission. I explained that I had spoken with Dr. Marion by phone and he was fine with the plan to give her one unit of blood now and push the repeat retacrit dose to next week. She said that one unit wont be enough. I again stated that we would reassess and if she were still having issues, we could give more but not at once because of side effects of transfusions. She seemed reluctant and stated that "Im not declining surgery, I just want my assembly line driver involved" I asked if she were ok with what I could offer her, and she said "I just don't feel you care anything about my blood" I asked if she would prefer a different hospitalist, and she said yes. I told her we would hold off on the blood transfusion until she were more comfortable and had a chance to speak wtih that new hospitalist Primary RN was present for my second conversation with her this afternoon. Review of Systems Review of Systems: All systems were reviewed and negative except as indicated on subjective above. Physical Exam Physical Exam: CONSTITUTIONAL: obese, vitals as above, generally well-appearing, NAD (limited exam as patient declines) EYES: normal conjunctivae, no scleral icterus ENT: external ear and nose normal NECK: trachea midline RESPIRATORY: normal respiratory effort, speaking in full sentences with no breathlessness at rest. CARDIOVASCULAR: declines CHEST: declines GASTROINTESTINAL: declines MUSCULOSKELETAL: declines, no gross focal deficits SKIN: warm and dry, vertical incision on left knee with steristrips in place. There is significant bruising present and the left leg is generally more swollen than the right. NEUROLOGIC: CN 2-12 grossly intact, normal cognition, normal speech, no tremor PSYCHIATRIC: alert cooperative and oriented to person, place and time. Euthymic mood, makes good eye contact, language grossly intact, recent and remote memory grossly intact. Results & Data Results & Data Vital Signs (Past 12 Hours) Vital Signs Temp Pulse Pulse Resp BP Pulse Ox O2 Del Method 01/21/23 16:02 36.5 C 65 16 117/55 L 94 Nasal Cannula 01/21/23 14:10 65 01/21/23 11:30 36.9 C 61 16 166/73 H 93 Nasal Cannula 01/21/23 07:00 65 01/21/23 08:11 36.5 C 62 16 146/64 H 99 Room Air 01/21/23 08:16 Nasal Cannula O2 Flow Rate 01/21/23 16:02 3 01/21/23 14:10 01/21/23 11:30 3 01/21/23 07:00 01/21/23 08:11 01/21/23 08:16 3 Laboratory Results Short CBC 01/21/23 Range/Units 05:58 WBC 3.82 L (4.8-10.8) K/ul Hgb 7.6 L (12.0-16.0) g/dl Hct 26.2 L (37.0-47.0) % Plt Count 126 L (130-400) K/uL BMP 01/21/23 05:58 Sodium 134 L Potassium 4.9 Chloride 98 Carbon Dioxide 31 BUN 29 H Creatinine 1.16 Glucose 106 H Calcium 8.5 Liver Function 01/21/23 Range/Units 05:58 Total Bilirubin 2.6 H (0.2-1.0) mg/dl AST 46 H (13-39) U/L ALT 50 (7-52) U/L Alkaline Phosphatase 183 H (34-104) U/L Albumin 3.3 L (3.4-5.0) gm/dl Medications Administered Current Inpatient Medications Acetaminophen (Acetaminophen 325 Mg Tab) 325 mg PO Q6H PRN PRN Reason: Mild Pain (Scale 1, 2, 3) Stop: 02/16/23 00:58 Last Admin: 01/18/23 03:30 Dose: 325 mg Diphenhydramine HCl (Diphenhydramine Hcl 25 Mg/10 Ml Udc) 12.5 mg PO Q8H PRN PRN Reason: Itching Stop: 02/17/23 14:55 Last Admin: 01/19/23 19:10 Dose: 12.5 mg Doxycycline Hyclate (Doxycycline Hyclate 100 Mg Cap) 100 mg PO BID [facility] Stop: 01/24/23 08:59 Last Admin: 01/21/23 07:55 Dose: 100 mg Folic Acid (Folic Acid 1 Mg Tab) 1 mg PO QAM [facility] Stop: 02/16/23 08:59 Last Admin: 01/21/23 07:54 Dose: 1 mg Heparin Sodium (Porcine) (Heparin Sod 5,000 Unit/0.5 Ml Vial) 5,000 units SQ Q12 [facility] Stop: 02/17/23 20:59 Last Admin: 01/21/23 07:56 Dose: 5,000 units Cefepime HCl 2,000 mg/ Syringe 20 mls @ 5 mls/min IV Q8H [facility] Stop: 01/26/23 09:59 Last Admin: 01/21/23 17:20 Dose: 5 mls/min Loratadine (Loratadine 10 Mg Tab) 10 mg PO QAM [facility] Stop: 02/16/23 08:59 Last Admin: 01/21/23 07:54 Dose: 10 mg Lorazepam (Lorazepam 0.5 Mg Tab) 0.5 mg PO TID PRN PRN Reason: Anxiety Stop: 02/16/23 08:59 Last Admin: 01/21/23 17:17 Dose: 0.5 mg Oxycodone HCl (Oxycodone Hcl Ir 5 Mg Tab (Immediate Release)) 5 - 10 mg PO QID PRN PRN Reason: Pain Stop: 01/31/23 00:58 Last Admin: 01/21/23 16:50 Dose: 5 mg Pantoprazole Sodium (Pantoprazole 40 Mg Tab) 40 mg PO BID [facility] Stop: 02/16/23 08:59 Last Admin: 01/21/23 07:55 Dose: 40 mg Senna/Docusate Sodium (Docusate Sodium/Senna 50/8.6mg Tab) 1 tab PO QAM [facility] Stop: 02/16/23 00:54 Last Admin: 01/21/23 07:54 Dose: 1 tab Sotalol HCl (Sotalol Hcl 80 Mg Tab) 80 mg PO BID [facility] Stop: 02/16/23 00:59 Last Admin: 01/21/23 07:53 Dose: 80 mg (10) HTN (hypertension) Hypertension type: unspecified Qualified Code(s): I10 - Essential (primary) hypertension (13) Depression Depression Type: unspecified Qualified Code(s): F32.9 - Major depressive disorder, single episode, unspecified
[2023-01-21] MEDS ORDERED: AMOXICILLIN/CLAVULANATE 875 MG TAB PO STA (17:36)
[2023-01-21] MEDS ORDERED: ACETAMINOPHEN 325 MG TAB PO PRN (17:48)
[2023-01-21] MEDS: AMOXICILLIN/CLAVULANATE 875 MG TAB PO SCH (19:33)
[2023-01-21] MEDS: ENOXAPARIN INJ 40 MG/0.4 ML SYR SQ SCH (19:33)
[2023-01-22] MEDS ORDERED: diphenhydrAMINE HCL 25 MG/10 ML UDC PO ONE ×2 (02:48→20:27)
[2023-01-22 06:19] LABS: Hematocrit (blood only) 24.6 % (37.0-47.0); Hemoglobin 7.2 g/dl (12.0-16.0); Mean Corpuscular Hemoglobin 27.1 pg (25.0-34.0); Mean Corpuscular Hgb Conc 29.3 g/dL (32.0-36.0); Mean Corpuscular Volume 92.5 fL (80.0-100.0); Mean Platelet Volume 10.6 fL (9.4-12.4); Platelet Count 129 K/uL (130-400); RDW Coefficient of Variation 22.1 % (11.5-14.5); RDW Standard Deviation 75.9 fL (36.4-46.3); Red Blood Count 2.66 M/uL (4.20-5.40); White Blood Count 4.39 K/ul (4.8-10.8)
[2023-01-22 06:25] LABS: Albumin Level 3.4 gm/dl (3.4-5.0); Bilirubin,Total 2.2 mg/dl (0.2-1.0); Calcium 8.7 mg/dl (8.5-10.1); Est GFR (African American) 66.6 ml/min; Est GFR (Non-African American) 57.4 ml/min; Globulin 3.3 gm/dl (2.5-4.0); Potassium 4.8 mmol/L (3.5-5.1); Total Protein 6.7 gm/dl (6.0-8.3)
[2023-01-22] MEDS: LORATADINE 10 MG TAB PO SCH (07:43)
[2023-01-22] MEDS: AMOXICILLIN/CLAVULANATE 875 MG TAB PO SCH ×2 (07:43→15:29)
[2023-01-22] MEDS: SOTALOL HCL 80 MG TAB PO SCH ×2 (07:44→19:42)
[2023-01-22] MEDS: hydroCHLOROthiazide 25 MG TAB PO SCH (07:44)
[2023-01-22] MEDS: DOCUSATE SODIUM/SENNA 50/8.6MG TAB PO SCH (07:44)
[2023-01-22] MEDS: PANTOprazole 40 MG TAB PO SCH ×2 (07:44→19:42)
[2023-01-22] MEDS: FOLIC ACID 1 MG TAB PO SCH (07:45)
[2023-01-22] MEDS: ENOXAPARIN INJ 40 MG/0.4 ML SYR SQ SCH ×2 (07:45→19:43)
[2023-01-22] MEDS: oxyCODONE HCL IR 5 MG TAB (IMMEDIATE RELEASE) PO PRN ×2 (07:51→15:28)
[2023-01-22] MEDS: LORazepam 0.5 MG TAB PO PRN ×2 (07:51→19:42)
[2023-01-22] MEDS ORDERED: SODIUM CHLORIDE 0.9% 250 ML IV PRN (10:23)
[2023-01-22] MEDS ORDERED: FUROSEMIDE 40 MG/4 ML VIAL IV ONE (10:25)
--- NOTE | 2023-01-22 10:25 | Surgery Progress Note ---
Date of Service January 22, 2023 Assessment & Plan (1) Cholelithiasis: Plan: Currently asymptomatic (2) Choledocholithiasis: Plan: Resolved with intervention, s/p ERCP with stent insertion (3) Anemia: Plan: H/H continues to trend down Plan Not recommending surgery for cholecystectomy at this time as patient is not currently in the best operative condition unless she is in an immediate life threatening circumstance that can be altered with surgery. She has not returned to her medical baseline since her left knee orthopedic procedure on January 05. She says her SOB feels worse and her H/H continues to trend down. I think the patient should recover more from her previous surgery and feel well enough to undergo a second procedure. She should follow up with me in the office in 1-2 weeks. In addition to her specialist for optimization. Admission and Anticipated Discharge Date Admission Date: January 16, 2023 Subjective Patient seen this am. Continues to be without abdominal pain, no fevers or chills, no nausea. Has SOB with exertion and feels better with the oxygen while sitting. Appears slightly winded when I walk in the room as she just traveled from the bathroom. Physical Exam Constitutional: + obese and cooperative; no acute distress, no altered mental status and not in distress Respiratory: normal respiratory effort (Although does appear to have mild SOB); no respiratory distress, no labored breathing and no cough Gastrointestinal (Abdomen): Inspection/Auscultation: abdomen normal to inspection and + significant pannus Percussion/Palpation: abdomen soft; abdomen nontender, no guarding and abdomen not rigid Results & Data Vital Signs (Past 12 Hours) Vital Signs Temp Pulse Pulse Pulse Resp BP Pulse Ox 01/22/23 07:39 36.5 C 64 20 133/72 98 01/22/23 07:08 64 01/22/23 04:20 36.6 C 71 20 127/65 94 01/22/23 01:08 67 01/21/23 23:42 36.6 C 75 20 118/70 93 O2 Del Method O2 Flow Rate 01/22/23 07:39 Nasal Cannula 3 01/22/23 07:08 01/22/23 04:20 Nasal Cannula 3 01/22/23 01:08 01/21/23 23:42 Nasal Cannula 3 Laboratory Results H/H 7.2/24.6 from yesterday PG Care Time/CCT Total # of Minutes Spent Total Time Spent with Patient: Total time spent is greater than 50% in coordination of care (as documented) at patient's floor/unit and/or counseling patient: Coding Level of Care Code 00563 SUB INP/OBS CARE 12/03MIN Diagnoses Cholelithiasis K80.20 Choledocholithiasis K80.50 Anemia D64.9 Anemia type: unspecified type (3) Anemia Anemia type: unspecified type Qualified Code(s): D64.9 - Anemia, unspecified
--- NOTE | 2023-01-22 15:56 | Hospitalist Progress Note ---
Date of Service January 22, 2023 Assessment & Plan (1) Severe sepsis: Plan: Sepsis appears to have been from post operative pneumonia as there has never been any significant concern for cellulitis of the left leg around her surgical sites. Status post left knee surgery and had been on Keflex Additionally, there were no concerns for a biliary tract infection, only CBD obstruction. UTI ruled out H/O recurrent ESBL E. coli UTI on fosfomycin suppression treatment Blood culture negative to date Venous Doppler:There is no sonographic evidence of deep venous thrombosis identified in the left lower extremity. Received IV fluids Continue meropenem, doxycycline>> cefepime, doxycycline>> Augmentin Needs follow-up with orthopedics upon discharge, already completed rehab recently. Clinically much better and has been getting physical therapy (2) Post-op pneumonia: Plan: Likely the cause of sepsis Received meropenem, doxycycline, cefepime and now he is on Augmentin Clinically improved denies any respiratory symptoms (3) Choledocholithiasis: Plan: Hyperbilirubinemia with Obstructive jaundice and Transaminitis H/O NAFLD cirrhosis MRCP:Probable 5 mm common bile duct calculus. No biliary ductal dilatation. Cholelithiasis. No evidence for acute cholecystitis. Cirrhosis. Stable splenomegaly. ERCP performed 01/20 with stent placed Needs follow-up with GI upon discharge for stent removal. LFTs/bili improved/resolved to normal levels. Denies any abdominal symptoms (4) Chronic anemia: Plan: Anemia of chronic disease with recent acute post operative blood loss anemia: Baseline H/H is 10-12 on retacrit (intermittently held because of high Hb levels recently) She has no active bleeding issues, but is concerned as a result of bleeding in the past. She received 1 unit of blood post operatively at [facility] a couple of weeks ago. She is demanding enough blood to get her levels up preoperatively, prior to any consideration for lap rayshawn Offered 1 unit with reported symptoms of SOB and fatigue. Hemoglobin dropped down to 7.2 as of today and the patient remains pale and symptomatic Prior hospitalist did discuss the case with the curb builder Will give 1 unit of blood transfusion with 40 mg of intravenous Lasix today Check CBC tomorrow and may need more blood transfusion before discharge (5) Liver cirrhosis secondary to WEIR: (6) S/P left knee arthroscopy: Plan: As above (7) Hypoxia: Plan: Ongoing post operative hypoxia, worse from her baseline. Mild pulmonary edema vs. Possible pneumonia Given sepsis picture on admission and elevated procalcitonin, favoring the latter) H/O respiratory failure secondary to pulmonary hypertension, ILD, BERRY/nocturnal hypoxemia (unable to tolerate CPAP per records review) Improved (8) Hyperbilirubinemia: Plan: Hyperbilirubinemia has been improving following ERCP and stent placement (9) BERRY (obstructive sleep apnea): (10) Atrial fibrillation: Plan: Rate is controlled (11) HTN (hypertension): (12) CKD (chronic kidney disease), stage III: Plan: TYLER on CKD stage IIIA Follows with [facility] nephrology (13) Obesity, morbid, BMI 40.0-49.9: (14) Depression: Plan Mild troponin elevation Likely type II [place] secondary to above Denies angina symptoms, no further workup at this time. Other chronic, stable conditions: SSS S/P PPM: Continue sotalol Hypertension GERD/H/O Esophageal varices: Continue Protonix Ovarian cancer S/P surgery/incomplete chemotherapy Prediabetes, HbA1c 5.8 last Dec 2019 chronic thrombocytopenia secondary to cirrhosis Past tobacco abuse DVT Px: Lovenox Full code Dispo-uncertain at this time. Patient doesn't feel well enough to leave the hospital at this time. Re-evaluate symptoms and H/H in am. Admission and Anticipated Discharge Date Admission Date: January 16, 2023 Subjective 01/22/2023 The patient was seen and examined in medical telemetry unit She has been feeling shortness of breath with exertion and complains to have ongoing weakness and tiredness Her swelling in the legs have been improving No fever and or chills and getting physical therapy Review of Systems Review of Systems: All systems reviewed and are unremarkable except as noted below Respiratory: Shortness of breath on exertion Neurologic: Generalized weakness Physical Exam Physical Exam: Sitting on a chair without any acute distress Constitutional: well developed, well nourished, + ill appearing and + obese Eyes: PERRL, conjunctivae normal, anicteric sclerae ENMT: external ear and nose normal, oropharynx normal Neck: trachea midline, no thyromegaly Respiratory: no respiratory distress Auscultation: + diminished lung sounds and + crackles (Minimal bibasilar crackles) Cardiovascular: Rate/Rhythm: regular rate and regular rhythm; not tachycardic Heart Sounds: normal S1 and normal S2; no murmur Extremities: + edema (Bilateral leg edema, 1+ on the right and 2+ on the left side) Gastrointestinal (Abdomen): Inspection/Auscultation: normal bowel sounds; abdomen not distended Percussion/Palpation: abdomen soft; abdomen nontender Musculoskeletal: Left knee pain with movement Neurologic: normal touch/pain/proprioception and moves all extremities; no focal motor deficits Lymphatic: no cervical or axillary lymphadenopathy Results & Data Results & Data Vital Signs (Past 12 Hours) Vital Signs Temp Pulse Pulse Pulse Resp BP BP 01/22/23 15:10 36.7 C 65 20 132/72 01/22/23 14:10 36.2 C L 64 18 121/65 01/22/23 13:10 36.2 C L 65 20 137/66 01/22/23 12:36 36.7 C 65 16 121/70 01/22/23 12:18 36.4 C L 74 20 148/58 H 01/22/23 11:40 36.9 C 63 18 118/62 01/22/23 07:39 36.5 C 64 20 133/72 01/22/23 07:08 64 01/22/23 04:20 36.6 C 71 20 127/65 Pulse Ox O2 Del Method O2 Flow Rate 01/22/23 15:10 96 01/22/23 14:10 96 01/22/23 13:10 96 3 01/22/23 12:36 93 3 01/22/23 12:18 91 3 01/22/23 11:40 95 Nasal Cannula 01/22/23 07:39 98 Nasal Cannula 3 01/22/23 07:08 01/22/23 04:20 94 Nasal Cannula 3 Laboratory Results Short CBC 01/22/23 Range/Units 05:49 WBC 4.39 L (4.8-10.8) K/ul Hgb 7.2 L (12.0-16.0) g/dl Hct 24.6 L (37.0-47.0) % Plt Count 129 L (130-400) K/uL BMP 01/22/23 05:49 Sodium 134 L Potassium 4.8 Chloride 99 Carbon Dioxide 31 BUN 30 H Creatinine 1.00 Glucose 106 H Calcium 8.7 Liver Function 01/22/23 Range/Units 05:49 Total Bilirubin 2.2 H (0.2-1.0) mg/dl AST 45 H (13-39) U/L ALT 45 (7-52) U/L Alkaline Phosphatase 199 H (34-104) U/L Albumin 3.4 (3.4-5.0) gm/dl Medications Administered Current Inpatient Medications Acetaminophen (Acetaminophen 325 Mg Tab) 325 mg PO Q6H PRN PRN Reason: pain Stop: 02/16/23 00:58 Amoxicillin/Clavulanate Potassium (Amoxicillin/Clavulanate 875 Mg Tab) 1 tab PO BIDM [facility] Stop: 01/28/23 18:14 Last Admin: 01/22/23 15:29 Dose: 1 tab Enoxaparin Sodium (Enoxaparin Inj 40 Mg/0.4 Ml Syr) 40 mg SQ BID [facility] Stop: 02/20/23 20:59 Last Admin: 01/22/23 07:45 Dose: 40 mg Folic Acid (Folic Acid 1 Mg Tab) 1 mg PO QAM [facility] Stop: 02/16/23 08:59 Last Admin: 01/22/23 07:45 Dose: 1 mg Hydrochlorothiazide (Hydrochlorothiazide 25 Mg Tab) 25 mg PO QAM [facility] Stop: 02/21/23 08:59 Last Admin: 01/22/23 07:44 Dose: 25 mg Sodium Chloride (Nss) 250 mls @ 15 mls/hr IV .[id number] PRN PRN Reason: For Transfusion Duration Stop: 01/22/23 20:23 Loratadine (Loratadine 10 Mg Tab) 10 mg PO QAM [facility] Stop: 02/16/23 08:59 Last Admin: 01/22/23 07:43 Dose: 10 mg Lorazepam (Lorazepam 0.5 Mg Tab) 0.5 mg PO TID PRN PRN Reason: Anxiety Stop: 02/16/23 08:59 Last Admin: 01/22/23 07:51 Dose: 0.5 mg Oxycodone HCl (Oxycodone Hcl Ir 5 Mg Tab (Immediate Release)) 5 - 10 mg PO QID PRN PRN Reason: Pain Stop: 01/31/23 00:58 Last Admin: 01/22/23 15:28 Dose: 10 mg Pantoprazole Sodium (Pantoprazole 40 Mg Tab) 40 mg PO BID [facility] Stop: 02/16/23 08:59 Last Admin: 01/22/23 07:44 Dose: 40 mg Senna/Docusate Sodium (Docusate Sodium/Senna 50/8.6mg Tab) 1 tab PO QAM [facility] Stop: 02/16/23 00:54 Last Admin: 01/22/23 07:44 Dose: 1 tab Sotalol HCl (Sotalol Hcl 80 Mg Tab) 80 mg PO BID [facility] Stop: 02/16/23 00:59 Last Admin: 01/22/23 07:44 Dose: 80 mg (11) HTN (hypertension) Hypertension type: unspecified Qualified Code(s): I10 - Essential (primary) hypertension (14) Depression Depression Type: unspecified Qualified Code(s): F32.9 - Major depressive disorder, single episode, unspecified
[2023-01-23] MEDS: AMOXICILLIN/CLAVULANATE 875 MG TAB PO SCH (07:42)
[2023-01-23] MEDS: LORazepam 0.5 MG TAB PO PRN (07:46)
[2023-01-23] MEDS: oxyCODONE HCL IR 5 MG TAB (IMMEDIATE RELEASE) PO PRN (07:47)
[2023-01-23] MEDS: PANTOprazole 40 MG TAB PO SCH (07:48)
[2023-01-23] MEDS: DOCUSATE SODIUM/SENNA 50/8.6MG TAB PO SCH (07:48)
[2023-01-23] MEDS: FOLIC ACID 1 MG TAB PO SCH (07:48)
[2023-01-23] MEDS: hydroCHLOROthiazide 25 MG TAB PO SCH (07:48)
[2023-01-23] MEDS: SOTALOL HCL 80 MG TAB PO SCH (07:48)
[2023-01-23] MEDS: ENOXAPARIN INJ 40 MG/0.4 ML SYR SQ SCH (07:49)
[2023-01-23] MEDS: LORATADINE 10 MG TAB PO SCH (07:49)
[2023-01-23 08:23] LABS: Basophils # (auto) 0.01 K/uL (0-0.2); Basophils % (auto) 0.2 %; Eosinophils # (auto) 0.08 K/uL (0-0.50); Eosinophils % (auto) 1.8 %; Hematocrit (blood only) 27.4 % (37.0-47.0); Hemoglobin 8.6 g/dl (12.0-16.0); Immature Granulocytes # (auto) 0.08 K/uL (0.01-0.20); Immature Granulocytes % (auto) 1.8 %; Lymphocytes # (auto) 0.65 K/uL (1.2-3.4); Lymphocytes % (auto) 14.7 %; Mean Corpuscular Hemoglobin 28.7 pg (25.0-34.0); Mean Corpuscular Hgb Conc 31.4 g/dL (32.0-36.0); Mean Corpuscular Volume 91.3 fL (80.0-100.0); Mean Platelet Volume 10.8 fL (9.4-12.4); Monocytes # (auto) 0.29 K/uL (0.11-0.59); Monocytes % (auto) 6.6 %; Neutrophils % (auto) 74.9 %; Platelet Count 137 K/uL (130-400); RDW Coefficient of Variation 21.1 % (11.5-14.5); RDW Standard Deviation 71.9 fL (36.4-46.3); White Blood Count 4.41 K/ul (4.8-10.8)
[2023-01-23 08:50] LABS: BUN Creatinine Ratio 32.2 (10-20); Calcium 8.9 mg/dl (8.5-10.1); Creatinine Clr Calc Pharmacy 75.9 ml/min; Est GFR (African American) 75.6 ml/min; Est GFR (Non-African American) 65.2 ml/min; Potassium 4.4 mmol/L (3.5-5.1)
[2023-01-23 08:53] LABS: Anisocytosis Present; Stomatocytes 1+
--- NOTE | 2023-01-23 11:54 | Surgery Progress Note ---
Agree with the plan Date of Service January 23, 2023 Assessment & Plan (1) Cholelithiasis: Plan: Currently asymptomatic (2) Choledocholithiasis: Plan: Resolved with intervention, s/p ERCP with stent insertion (3) Anemia: Plan: H/H continues to trend down Plan Patient remains asymptomatic from gallbladder standpoint after ERCP intervention Normal WBC count, LFTs were downtrending as of yesterday Tolerating diet, no abdominal pain/n/v. Having + bowel function Working on weaning off oxygen. CXR ordered today for further evaluation We have schedule pt outpatient follow up with us in the office to discuss elective lap rayshawn as outpatient As previously discussed it will likely be in the patient's best interest to recover more from her previous surgery prior to undergoing another a second procedure. In addition to her following with her specialists for optimization Will follow peripherally, but please call with any questions/concerns. Krysten covering wknd if issues Admission and Anticipated Discharge Date Admission Date: January 16, 2023 Subjective Patient feeling okay this AM. Denies abdominal pain/nausea/vomiting. Tolerating a diet. Having a difficult time weaning oxygen. Physical Exam Physical Exam: awake/alert, no distress Respiratory: normal respiratory effort (on supplemental O2) Gastrointestinal (Abdomen): Inspection/Auscultation: abdomen not distended Percussion/Palpation: abdomen soft; abdomen nontender Results & Data Vital Signs (Past 12 Hours) Vital Signs Temp Pulse Pulse Pulse Pulse Pulse Pulse 01/23/23 11:10 36.8 C 01/23/23 09:37 60 01/23/23 09:11 01/23/23 08:33 78 86 84 80 66 01/23/23 07:48 36.6 C 01/23/23 02:51 36.6 C Pulse Resp Resp Resp Resp Resp Resp 01/23/23 11:10 63 18 01/23/23 09:37 01/23/23 09:11 01/23/23 08:33 22 20 20 20 20 01/23/23 07:48 61 18 01/23/23 02:51 63 18 BP BP Pulse Ox Pulse Ox Pulse Ox Pulse Ox Pulse Ox 01/23/23 11:10 115/65 95 01/23/23 09:37 01/23/23 09:11 01/23/23 08:33 85 L 91 89 L 92 01/23/23 07:48 129/71 94 03/17/23 02:51 138/69 95 Pulse Ox O2 Del Method O2 Flow Rate O2 Flow Rate O2 Flow Rate O2 Flow Rate O2 Flow Rate 01/23/23 11:10 Nasal Cannula 3 01/23/23 09:37 01/23/23 09:11 Nasal Cannula 3 01/23/23 08:33 72 L 2 3 3 3 01/23/23 07:48 Nasal Cannula 2 01/23/23 02:51 Nasal Cannula 3 PG Care Time/CCT Total # of Minutes Spent Total Time Spent with Patient: Total time spent is greater than 50% in coordination of care (as documented) at patient's floor/unit and/or counseling patient: Coding Level of Care Code 34488 SUB INP/OBS CARE 12/03MIN Diagnoses Cholelithiasis K80.20 Choledocholithiasis K80.50 Anemia D64.9 Anemia type: unspecified type (3) Anemia Anemia type: unspecified type Qualified Code(s): D64.9 - Anemia, unspecified
--- NOTE | 2023-01-23 12:36 | XRay Report ---
XR chest 2V PA/lateral CLINICAL HISTORY: Congestive heart failure. COMPARISON STUDY: Chest CT November 28, 2020 and chest radiograph January 16, 2023. FINDINGS: Dual lead left subclavian pacemaker is in place. Cardiomegaly is unchanged from earlier exa ms. There is no pneumothorax or pleural effusion. Diffuse interstitial thickening is present with pos sible left lung opacities. This is stable to slightly increased since chest radiograph January 16, 2023 . This is minimally increased since chest radiograph of December 26, 2020. IMPRESSION: Diffuse interstitial thickening with possible left lung opacities. This may be chronic. Mild superimposed pulmonary edema or an infectious process would be difficult to exclude. ACT 112: Negative or not required by law. Electronically signed by: Pro Joya M.D. 01/23/2023 12:35 PM
[2023-01-23] MEDS ORDERED: FUROSEMIDE 40 MG TAB PO SCH (12:45)
[2023-01-23] MEDS ORDERED: POTASSIUM CHLORIDE CRTAB 20 MEQ TABCR PO SCH (12:45)
--- NOTE | 2023-01-23 13:05 | Hospitalist Progress Note ---
Date of Service January 23, 2023 Assessment & Plan (1) Severe sepsis: Plan: Sepsis appears to have been from post operative pneumonia as there has never been any significant concern for cellulitis of the left leg around her surgical sites. Status post left knee surgery and had been on Keflex Additionally, there were no concerns for a biliary tract infection, only CBD obstruction. UTI ruled out H/O recurrent ESBL E. coli UTI on fosfomycin suppression treatment Blood culture negative to date Venous Doppler:There is no sonographic evidence of deep venous thrombosis identified in the left lower extremity. Received IV fluids Continue meropenem, doxycycline>> cefepime, doxycycline>> Augmentin Needs follow-up with orthopedics upon discharge, already completed rehab recently. Clinically much better and has been getting physical therapy Will finish the course of antibiotic for 10 days in total Chest x-ray showed possible infectious process/pulmonary edema She has been feeling much better though (2) Post-op pneumonia: Plan: Likely the cause of sepsis Received meropenem, doxycycline, cefepime and now he is on Augmentin Clinically improved denies any respiratory symptoms (3) Choledocholithiasis: Plan: Hyperbilirubinemia with Obstructive jaundice and Transaminitis H/O NAFLD cirrhosis MRCP:Probable 5 mm common bile duct calculus. No biliary ductal dilatation. Cholelithiasis. No evidence for acute cholecystitis. Cirrhosis. Stable splenomegaly. ERCP performed 01/20 with stent placed Needs follow-up with GI upon discharge for stent removal. LFTs/bili improved/resolved to normal levels. Denies any abdominal symptoms Will have outpatient surgical evaluation for cholecystectomy in the near future (4) Chronic anemia: Plan: Anemia of chronic disease with recent acute post operative blood loss anemia: Baseline H/H is 10-12 on retacrit (intermittently held because of high Hb levels recently) She has no active bleeding issues, but is concerned as a result of bleeding in the past. She received 1 unit of blood post operatively at [facility] a couple of weeks ago. She is demanding enough blood to get her levels up preoperatively, prior to any consideration for lap rayshawn Offered 1 unit with reported symptoms of SOB and fatigue. Hemoglobin dropped down to 7.2 as of today and the patient remains pale and symptomatic Prior hospitalist did discuss the case with the alpine patroller Will give 1 unit of blood transfusion with 40 mg of intravenous Lasix today Check CBC tomorrow and may need more blood transfusion before discharge (5) Liver cirrhosis secondary to WEIR: (6) S/P left knee arthroscopy: Plan: As above (7) Hypoxia: Plan: Ongoing post operative hypoxia, worse from her baseline. Mild pulmonary edema vs. Possible pneumonia Given sepsis picture on admission and elevated procalcitonin, favoring the latter) H/O respiratory failure secondary to pulmonary hypertension, ILD, BERRY/nocturnal hypoxemia (unable to tolerate CPAP per records review) Has had 2 steps O2 saturation test and will require 2 L of oxygen via nasal cannula continuously Chest x-ray showed possible infectious process/pulmonary edema We will put her on Lasix 40 mg once a day and potassium supplement (8) Hyperbilirubinemia: Plan: Hyperbilirubinemia has been improving following ERCP and stent placement (9) BERRY (obstructive sleep apnea): Plan: Noncompliant with CPAP (10) Atrial fibrillation: Plan: Rate is controlled Echo in May 2022 showed normal EF and grade 1 diastolic dysfunction (11) HTN (hypertension): Plan: Blood pressure is controlled We will start hydrochlorothiazide and continue with Lasix for bilateral leg edema and possible pulmonary edema Echocardiogram in May 2022 did show normal EF (12) CKD (chronic kidney disease), stage III: Plan: TYLER on CKD stage IIIA Follows with [facility] nephrology (13) Obesity, morbid, BMI 40.0-49.9: (14) Depression: Plan Mild troponin elevation Likely type II [place] secondary to above Denies angina symptoms, no further workup at this time. Other chronic, stable conditions: SSS S/P PPM: Continue sotalol Hypertension GERD/H/O Esophageal varices: Continue Protonix Ovarian cancer S/P surgery/incomplete chemotherapy Prediabetes, HbA1c 5.8 last Dec 2019 chronic thrombocytopenia secondary to cirrhosis Past tobacco abuse DVT Px: Lovenox Full code Dispo-uncertain at this time. Patient doesn't feel well enough to leave the hospital at this time. Re-evaluate symptoms and H/H in am. Admission and Anticipated Discharge Date Admission Date: January 16, 2023 Subjective 01/22/2023 The patient was seen and examined in medical telemetry unit She has been feeling shortness of breath with exertion and complains to have ongoing weakness and tiredness Her swelling in the legs have been improving No fever and or chills and getting physical therapy 01/23/2023 The patient was seen and examined in medical telemetry unit She has been feeling better today still has some tiredness Has had 2 steps O2 saturation test and will require 3 L of oxygen all the time She will be discharged home this afternoon Review of Systems Review of Systems: All systems reviewed and are unremarkable except as noted below Respiratory: Shortness of breath on exertion Neurologic: Generalized weakness Physical Exam Physical Exam: Sitting on a chair without any acute distress Constitutional: well developed, well nourished, + ill appearing and + obese Eyes: PERRL, conjunctivae normal, anicteric sclerae ENMT: external ear and nose normal, oropharynx normal Neck: trachea midline, no thyromegaly Respiratory: no respiratory distress Auscultation: + diminished lung sounds and + crackles (Minimal bibasilar crackles) Cardiovascular: Rate/Rhythm: regular rate and regular rhythm; not tachycardic Heart Sounds: normal S1 and normal S2; no murmur Extremities: + edema (Bilateral leg edema, 1+ on the right and 2+ on the left side) Gastrointestinal (Abdomen): Inspection/Auscultation: normal bowel sounds; abdomen not distended Percussion/Palpation: abdomen soft; abdomen nontender Neurologic: normal touch/pain/proprioception and moves all extremities; no focal motor deficits Lymphatic: no cervical or axillary lymphadenopathy Results & Data Results & Data Vital Signs (Past 12 Hours) Vital Signs Temp Pulse Pulse Pulse Pulse Pulse Pulse 01/23/23 11:10 36.8 C 01/23/23 09:37 60 01/23/23 09:11 01/23/23 08:33 78 86 84 80 66 01/23/23 07:48 36.6 C 01/23/23 02:51 36.6 C Pulse Resp Resp Resp Resp Resp Resp 01/23/23 11:10 63 18 01/23/23 09:37 01/23/23 09:11 01/23/23 08:33 22 20 20 20 20 01/23/23 07:48 61 18 01/23/23 02:51 63 18 BP BP Pulse Ox Pulse Ox Pulse Ox Pulse Ox Pulse Ox 01/23/23 11:10 115/65 95 01/23/23 09:37 01/23/23 09:11 01/23/23 08:33 85 L 91 89 L 92 01/23/23 07:48 129/71 94 01/23/23 02:51 138/69 95 Pulse Ox O2 Del Method O2 Flow Rate O2 Flow Rate O2 Flow Rate O2 Flow Rate O2 Flow Rate 01/23/23 11:10 Nasal Cannula 3 01/23/23 09:37 01/23/23 09:11 Nasal Cannula 3 01/23/23 08:33 72 L 2 3 3 3 01/23/23 07:48 Nasal Cannula 2 01/23/23 02:51 Nasal Cannula 3 Laboratory Results Short CBC 01/23/23 Range/Units 07:57 WBC 4.41 L (4.8-10.8) K/ul Hgb 8.6 L (12.0-16.0) g/dl Hct 27.4 L (37.0-47.0) % Plt Count 137 (130-400) K/uL BMP 01/23/23 07:57 Sodium 134 L Potassium 4.4 Chloride 96 L Carbon Dioxide 33 H BUN 29 H Creatinine 0.90 Glucose 119 H Calcium 8.9 Medications Administered Current Inpatient Medications Acetaminophen (Acetaminophen 325 Mg Tab) 325 mg PO Q6H PRN PRN Reason: pain Stop: 02/16/23 00:58 Amoxicillin/Clavulanate Potassium (Amoxicillin/Clavulanate 875 Mg Tab) 1 tab PO BIDM [facility] Stop: 01/28/23 18:14 Last Admin: 01/23/23 07:42 Dose: 1 tab Enoxaparin Sodium (Enoxaparin Inj 40 Mg/0.4 Ml Syr) 40 mg SQ BID [facility] Stop: 02/20/23 20:59 Last Admin: 01/23/23 07:49 Dose: 40 mg Folic Acid (Folic Acid 1 Mg Tab) 1 mg PO QAM [facility] Stop: 02/16/23 08:59 Last Admin: 01/23/23 07:48 Dose: 1 mg Furosemide (Furosemide 40 Mg Tab) 40 mg PO QAM [facility] Stop: 02/22/23 12:44 Loratadine (Loratadine 10 Mg Tab) 10 mg PO QAM [facility] Stop: 02/16/23 08:59 Last Admin: 01/23/23 07:49 Dose: 10 mg Lorazepam (Lorazepam 0.5 Mg Tab) 0.5 mg PO TID PRN PRN Reason: Anxiety Stop: 02/16/23 08:59 Last Admin: 01/23/23 07:46 Dose: 0.5 mg Oxycodone HCl (Oxycodone Hcl Ir 5 Mg Tab (Immediate Release)) 5 - 10 mg PO QID PRN PRN Reason: Pain Stop: 01/31/23 00:58 Last Admin: 01/23/23 07:47 Dose: 10 mg Pantoprazole Sodium (Pantoprazole 40 Mg Tab) 40 mg PO BID [facility] Stop: 02/16/23 08:59 Last Admin: 01/23/23 07:48 Dose: 40 mg Potassium Chloride (Potassium Chloride Crtab 20 Meq Tabcr) 20 meq PO QAM [facility] Stop: 02/22/23 12:44 Senna/Docusate Sodium (Docusate Sodium/Senna 50/8.6mg Tab) 1 tab PO QAM [facility] Stop: 02/16/23 00:54 Last Admin: 01/23/23 07:48 Dose: 1 tab Sotalol HCl (Sotalol Hcl 80 Mg Tab) 80 mg PO BID [facility] Stop: 02/16/23 00:59 Last Admin: 01/23/23 07:48 Dose: 80 mg (11) HTN (hypertension) Hypertension type: unspecified Qualified Code(s): I10 - Essential (primary) hypertension (14) Depression Depression Type: unspecified Qualified Code(s): F32.9 - Major depressive disorder, single episode, unspecified
--- NOTE | 2023-01-23 17:18 | Discharge Summary ---
Date of Service January 23, 2023 Admission HPI Per Admitting Provider History obtained from patient, family, and records. Medical history significant for SSS sp PPM not on anticoagulation secondary to GI bleed, hypertension, chronic respiratory failure secondary to pulmonary hypertension secondary to ILD, hx BERRY/nocturnal hypoxemia, NAFLD cirrhosis, GERD, history esophageal varices, ovarian cancer status post surgery/incomplete chemotherapy, recurrent ESBL E. coli UTI on Fosfomycin suppression Rx, history urolithiasis, history of C. difficile secondary to clindamycin, CRI (baseline creatinine 1.1), prediabetes, chronic anemia (baseline hemoglobin of 8), chronic thrombocytopenia, recent left knee surgery, past tobacco abuse. Last [facility] confinement December 2020 for symptomatic anemia secondary to chemotherapy. Recent [facility] confinement from January 05 to January 10, 2023 for elective left robotic assisted total knee arthroplasty. Patient discharged to [facility] [place] for rehab. Patient discharged home 2 days ago. Patient seen on follow-up at [facility] yesterday. Left lower extremity swelling expected as per surgeon as per patient account. Well-healed incisions but evidence of blister formation along inferior aspect of incision for which Keflex was prescribed. Surgeon recommended JOHNIE hoses compression, elevation, outpatient evaluation and dressing changes by home nursing. Patient instructed to continue aspirin twice daily for postop DVT prophylaxis which patient had not complied with due to history of bleeding. Follow-up contemplated after 1 week. Today, patient started not feeling well. Dysuria without abdominal/flank pain. Increasing weakness. Shortness of breath without chest pain or cough symptoms. Denies fluid retention. Constipation and dark stools attributed to iron Rx as per patient. Usual postop left knee/leg swelling/pain without increasing drainage. Patient also noted to be jaundiced by family. IV Zosyn administered at the ER. 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 Admission Exam Per Admitting Provider Physical Exam: GENERAL: Slightly uncomfortable, obese, minimal respiratory distress SKIN: Jaundiced, warm HEENT: pale palpebral conjunctivae, no ptosis, moist buccal mucosa, nasal cannula in place NECK : Supple, short neck, no tenderness CHEST : Decreased breath sounds, no tenderness HEART : RRR, no obvious murmurs ABDOMEN: Some distention, minimal hypogastric tenderness EXTREMITIES : Dressing over LLE, LE swelling, minimal LLE tenderness NEUROLOGIC : Coherent, no facial asymmetry, no other gross focality Principal Diagnosis Sepsis likely secondary to postoperative pneumonia, choledocholithiasis status post ERCP and stent, cholelithiasis, chronic anemia, BERRY, atrial fibrillation Discharge Exam Sitting on a chair without any acute distress Constitutional well developed, well nourished, + ill appearing and + obese Eyes PERRL, conjunctivae normal, anicteric sclerae ENMT external ear and nose normal, oropharynx normal Neck trachea midline, no thyromegaly Respiratory no respiratory distress Auscultation: + diminished lung sounds and + crackles (Minimal bibasilar crackles) Cardiovascular Rate/Rhythm: regular rate and regular rhythm; not tachycardic Heart Sounds: normal S1 and normal S2; no murmur Extremities: + edema (Bilateral leg edema, 1+ on the right and 2+ on the left side) Gastrointestinal (Abdomen) Inspection/Auscultation: normal bowel sounds; abdomen not distended Percussion/Palpation: abdomen soft; abdomen nontender Neurologic normal touch/pain/proprioception and moves all extremities; no focal motor deficits Lymphatic no cervical or axillary lymphadenopathy Discharge Data Allergies Allergy/AdvReac Type Severity Reaction Status Date / Time levofloxacin Allergy Intermediate LE Verified 09/25/22 09:33 swelling and blistering tramadol Allergy Mild Rash Verified 09/25/22 09:33 paclitaxel [From Taxol] Allergy facial Verified 09/25/22 09:33 flushing, bradycardia clindamycin AdvReac Intermediate PT Verified 09/25/22 09:33 CONTRACTED C-DIFF adhesive AdvReac Mild SKIN Verified 09/25/22 09:33 BLISTERS SOME TIMES shellfish derived AdvReac Mild NAUSEA,DIARRHEA, Verified 09/25/22 09:33 VOMITING doxorubicin AdvReac Hypoxia Verified 09/25/22 09:33 Consultations 01/16/23 21:51 ED Decision to Admit Stat 01/17/23 10:44 Consult Gastroenterology Routine 01/18/23 14:56 Consult Orthopedic Surgery Routine 01/20/23 16:17 Consult General Surgery Routine Procedures Performed Operation Date: 01/20/23 07:00 Actual Procedures s Endoscopic Ultrasonography Upper(Not Applicable) - Sivakumar Reyes MD p Endoscopic Retrograde Cholangiopancreato(Not Applicable) - Sivakumar Reyes MD p Esophagogastrectomy(Not Applicable) - Sivakumar Reyes MD Ordered Studies 01/16/23 20:25 CT abd pelvis IV con only Stat 01/17/23 15:03 US venous doppler LE LT Routine 01/19/23 00:00 MR MRCP Routine 01/20/23 14:17 US upper EUS PACS images Routine 01/20/23 14:30 FL ERCP biliary ductal Routine Hospital Course (1) Severe sepsis: Sepsis appears to have been from post operative pneumonia as there has never been any significant concern for cellulitis of the left leg around her surgical sites. Status post left knee surgery and had been on Keflex Additionally, there were no concerns for a biliary tract infection, only CBD obstruction. UTI ruled out H/O recurrent ESBL E. coli UTI on fosfomycin suppression treatment Blood culture negative to date Venous Doppler:There is no sonographic evidence of deep venous thrombosis identified in the left lower extremity. Received IV fluids Continue meropenem, doxycycline>> cefepime, doxycycline>> Augmentin Needs follow-up with orthopedics upon discharge, already completed rehab recently. Clinically much better and has been getting physical therapy Will finish the course of antibiotic for 10 days in total Chest x-ray showed possible infectious process/pulmonary edema She has been feeling much better though (2) Post-op pneumonia: Likely the cause of sepsis Received meropenem, doxycycline, cefepime and now he is on Augmentin Clinically improved denies any respiratory symptoms (3) Choledocholithiasis: Hyperbilirubinemia with Obstructive jaundice and Transaminitis H/O NAFLD cirrhosis MRCP:Probable 5 mm common bile duct calculus. No biliary ductal dilatation. Cholelithiasis. No evidence for acute cholecystitis. Cirrhosis. Stable splenom egaly. ERCP performed 01/20 with stent placed Needs follow-up with GI upon discharge for stent removal. LFTs/bili improved/resolved to normal levels. Denies any abdominal symptoms Will have outpatient surgical evaluation for cholecystectomy in the near future (4) Chronic anemia: Anemia of chronic disease with recent acute post operative blood loss anemia: Baseline H/H is 10-12 on retacrit (intermittently held because of high Hb levels recently) She has no active bleeding issues, but is concerned as a result of bleeding in the past. She received 1 unit of blood post operatively at [facility] a couple of weeks ago. She is demanding enough blood to get her levels up preoperatively, prior to any consideration for lap rayshawn Offered 1 unit with reported symptoms of SOB and fatigue. Hemoglobin dropped down to 7.2 as of today and the patient remains pale and symptomatic Prior hospitalist did discuss the case with the painting manager Will give 1 unit of blood transfusion with 40 mg of intravenous Lasix today Check CBC tomorrow and may need more blood transfusion before discharge (5) Liver cirrhosis secondary to WEIR: (6) S/P left knee arthroscopy: As above (7) Hypoxia: Ongoing post operative hypoxia, worse from her baseline. Mild pulmonary edema vs. Possible pneumonia Given sepsis picture on admission and elevated procalcitonin, favoring the latter) H/O respiratory failure secondary to pulmonary hypertension, ILD, BERRY/nocturnal hypoxemia (unable to tolerate CPAP per records review) Has had 2 steps O2 saturation test and will require 2 L of oxygen via nasal cannula continuously Chest x-ray showed possible infectious process/pulmonary edema We will put her on Lasix 40 mg once a day and potassium supplement (8) Hyperbilirubinemia: Hyperbilirubinemia has been improving following ERCP and stent placement (9) BERRY (obstructive sleep apnea): Noncompliant with CPAP (10) Atrial fibrillation: Rate is controlled Echo in May 2022 showed normal EF and grade 1 diastolic dysfunction (11) HTN (hypertension): Blood pressure is controlled We will start hydrochlorothiazide and continue with Lasix for bilateral leg edema and possible pulmonary edema Echocardiogram in May 2022 did show normal EF (12) CKD (chronic kidney disease), stage III: TYLER on CKD stage IIIA Follows with [facility] nephrology (13) Obesity, morbid, BMI 40.0-49.9: (14) Depression: Plan Mild troponin elevation Likely type II [place] secondary to above Denies angina symptoms, no further workup at this time. Other chronic, stable conditions: SSS S/P PPM: Continue sotalol Hypertension GERD/H/O Esophageal varices: Continue Protonix Ovarian cancer S/P surgery/incomplete chemotherapy Prediabetes, HbA1c 5.8 last Dec 2019 chronic thrombocytopenia secondary to cirrhosis Past tobacco abuse DVT Px: Lovenox Full code Dispo-uncertain at this time. Patient doesn't feel well enough to leave the hospital at this time. Re-evaluate symptoms and H/H in am. Total Time Total Time Spent Total Time Spent (In Minutes): 40 minutes Discharge Plan Discharge Items Patient Disposition: Home - Home Health Services Reason For Visit: SEPSIS Discharge Diagnosis: Sepsis likely secondary to postoperative pneumonia, choledocholithiasis status post ERCP and stent, cholelithiasis, chronic anemia, BERRY, atrial fibrillation Condition on Discharge: Fair Activity: Resume your previous activity Non-emergency contact: Primary Care Provider Call non-emergency contact if: you have any medication questions and your symptoms worsen Follow-up/Referrals: Kat Hawthorne DO [Primary Care Provider] - (Date & Time 01/28/2023 10:50 AM Provider Kat Hawthorne DO Department [facility] ) Sivakumar Reyes MD [Physician] - (The gastroenterology office will call you with an appointment for stent removal.) Carina Shelton DO [Physician] - 01/27/23 9:00 am (Please follow up in the office next week with the general surgeon to discuss removal of your gallbladder as an outpatient on 01/27/23 at 9am) Diet: Heart Healthy Addtl Attending Provider Instructions: Please take precautions to avoid fall. Please take your medications as advised Please finish the course of antibiotic Appointments with your healthcare providers Try to use less of oxycodone to avoid drowsiness, constipation and addiction. Pending Studies at Discharge: No Stand-Alone Forms: My [facility] Essential Viewing, Smoking Cessation Medications and DC Order Prescriptions: New furosemide 40 mg Tablet 40 mg PO QAM 30 Days Qty: 30 0RF potassium chloride 20 mEq Tablet,Er Particles/Crystals 20 meq PO QAM Qty: 30 0RF amoxicillin-pot clavulanate 875-125 mg Tablet 1 tab PO BIDM 5 Days Qty: 10 0RF oxycodone 5 mg Tablet 5 mg PO QID PRN (Reason: pain (scale score 7-10)) Qty: 10 0RF Continued cholecalciferol (vitamin D3) 50 mcg (2,000 unit) tablet 2,000 unit PO QAM Qty: 90 3RF omeprazole 20 mg capsule,delayed release(DR/EC) 20 mg PO BID acetaminophen 325 mg PO PRN sertraline [Zoloft] 100 mg Tablet 100 mg PO QAM lorazepam 0.5 mg Tablet 0.5 mg PO TID PRN (Reason: Anxiety) folic acid 1 mg Tablet 1 mg PO QAM fosfomycin tromethamine [Monurol] 3 gram packet 3 g PO WK Rx Instructions: TAKE THIS MEDICATION EVERY THURSDAY sotalol 80 mg tablet 80 mg PO BID cyclobenzaprine 5 mg tablet 5 mg PO BID PRN (Reason: Muscle Spasm) loratadine [Claritin] 10 mg Tablet 10 mg PO QAM Proventil HFA inhaler 2 puff Changed (DME) Portable Oxygen Misc See Rx Instructions .Route Qty: 1 0RF Rx Instructions: 3lpm via nasal cannula. Test for portability (POC) Discontinued hydrochlorothiazide 25 mg tablet 25 mg PO QAM Qty: 90 3RF Keflex Discharge Orders: Discharge Order (Routine); Ordered 01/23/23 Ordered By: Destiny Stratton Admission Data Admit Date/Time: 01/16/23 23:12 Attending Provider: Destiny Strattno Admit Provider: Pavel Hall Primary Care Provider: Kat Hawthorne Other Providers: Pavel Hall ; Deandra Deal Jr ; Parag Carlin ; Camron Blair ; Latanya Peña Thomas J ; Carissa Ramey ; Brown Ornelas ; Adolfo Lama ; Mauro Landry Andrew J. ; Adolfo Lyons ; Harley Arreguin ; Melchor Gonzalez ; Renan Mclain ; Iain Mitchell ; Carissa Rodriguez Casey R ; Harjeet Daly ; Lisa Rodriguez John ; Hunter Barr ; Samantha Rubio ; Adi Mccabe ; Makayla Sanchez ; Jerry Hardin ; Robbie Stephens ; Mauro Fink ; Susana Diaz ; Angie Argueta ; Jason Vidal ; Harley Martinez ; Tiffanie Carrera ; Ingrid Davis ; Sheng Mccoy Jr ; Felecia Mendenhall ; Yoel Moya ; Dee Dee Maradiaga ; Melissa Cooper Other Interventions: Discharge Summary Assessment (RN) Last Done: 01/23/23 14:40
[2023-01-24] MEDS ORDERED: hydroCHLOROthiazide 25 MG TAB PO SCH (09:00)
== END 2023-01-23 15:31 | disposition home health service (06) | DRG 862 ==
LOC: ED 18:55 → 2N 23:12 → SUATTDRO 23:12 → 2N 01-17 00:54
DX: N18.31 Chronic kidney disease, stage 3a; Y83.8 Other surgical procedures as the cause of abnormal reaction of the patient, or of later complication, without mention of misadventure at the time of the procedure; D63.8 Anemia in other chronic diseases classified elsewhere; J18.9 Pneumonia, unspecified organism; Z87.440 Personal history of urinary (tract) infections; R65.20 Severe sepsis without septic shock; A41.9 Sepsis, unspecified organism; N17.9 Acute kidney failure, unspecified; Z85.43 Personal history of malignant neoplasm of ovary; I21.A1 Myocardial infarction type 2; Z95.0 Presence of cardiac pacemaker; E87.20 Acidosis, unspecified; J96.91 Respiratory failure, unspecified with hypoxia; K75.81 Nonalcoholic steatohepatitis (NASH); I13.0 Hypertensive heart and chronic kidney disease with heart failure and stage 1 through stage 4 chronic kidney disease, or unspecified chronic kidney disease; Z96.652 Presence of left artificial knee joint; I85.00 Esophageal varices without bleeding; Y92.019 Unspecified place in single-family (private) house as the place of occurrence of the external cause; K80.51 Calculus of bile duct without cholangitis or cholecystitis with obstruction; I50.812 Chronic right heart failure; N39.0 Urinary tract infection, site not specified; R74.01 Elevation of levels of liver transaminase levels; K74.60 Unspecified cirrhosis of liver; Z98.890 Other specified postprocedural states; G47.33 Obstructive sleep apnea (adult) (pediatric); J96.21 Acute and chronic respiratory failure with hypoxia; Z88.1 Allergy status to other antibiotic agents; Z98.84 Bariatric surgery status; R16.1 Splenomegaly, not elsewhere classified; Z87.891 Personal history of nicotine dependence; Z99.81 Dependence on supplemental oxygen; I48.91 Unspecified atrial fibrillation; T81.44XA Sepsis following a procedure, initial encounter

== ENCOUNTER 2023-02-27 19:05 | Inpatient (IN) ==
--- NOTE | 2023-02-27 19:13 | Emergency Department Note ---
Impression & Plan Supracondylar fracture of right femur, Interstitial lung disease, Chronic hypoxemic respiratory failure, Fall ED Provider Note NAME: MICHELLE ARELLANO AGE: 67 SEX: F : 1955 ARRIVES VIA: Ambulance INFORMANT: Patient, ED PROVIDER(S): Sachin Vale MD CHIEF COMPLAINT: Fall, leg pain MEDICAL DECISION MAKING: Patient presents from home due to ground-level fall. IV was established blood work was obtained. Patient did receive pain medication routes but was noted to be 75% on room air so additional narcotics were avoided initially. The patient did have a CT of the head and cervical spine ordered given the patient's fall and head strike. Patient also did have right lower extremity x-rays completed. Patient's right lower extremity x-rays do show distal femur fracture. CT of the knee was also added for additional evaluation. Patient CT of the head and cervical spine were negative. Patient's CT of the knee does show comminuted intra-articular fracture of the distal femur. I did convey that the patient did have a distal femur fracture to the on-call orthopedist Dr. Daly. I subsequently did speak with the on-call hospitalist service Dr. Hall and the patient was admitted to the medicine service. Prior /Outside records reviewed: Did review the patient's most recent discharge summary from Dr. Stratton in January 2023. History of sick sinus syndrome status post pacemaker placement not on anticoagulation secondary to GI bleed hypertension chronic respiratory failure secondary to pulmonary hypertension from interstitial lung disease history of BERRY cirrhosis GERD esophageal varices. Differential diagnosis: Fracture, subluxation, dislocation, contusion, ligamentous injury, neurovascular, compartment syndrome, rhabdomyolysis, ICH, CHI as well as other pathologies. Diagnostics, as interpreted by me: ECG: Normal sinus rhythm, rate of 66 normal intervals normal axis no obvious ST elevations. Cardiac monitoring: An order was placed for continuous cardiac monitoring. The monitor shows a rate of 72 with sinus rhythm. Patient was placed on pulse oximetry Medical decision rules: None Imaging studies: See below I informally reviewed the patient's right lower extremity x-rays which do show a distal femur fracture HPI: Patient presents from home due to concern for ground-level fall. Patient states that she was walking into her bathroom and had a sudden jolt of sciatica related pain that radiated down her right lower extremity which caused her to fall. The patient believes that she struck the back of her head against her door frame and fell to the ground causing her right lower extremity to roll underneath her. The patient does complain of right lower extremity pain. The patient states she initially had some head pain but this has since resolved. The patient did receive 100 mics of fentanyl in route. Patient denies any chest pains or shortness of breath. Nursing did place the patient on oxygen as she did receive pain meds in route was noted to be 75% on room air. Patient denies any abdominal pain. The patient denies any back pain. Patient has no head or neck pain currently no extra upper extremity pain. Patient does relate that she did have a right total knee replacement completed by Dr. Garcia at [facility] in December. The patient does use a cane and sometimes has been using a walker. The patient states that she believes that the cause of her sciatica flare was secondary to PT try to strengthen her left lower extremity. Patient did try taking Aleve for that yesterday but it did not significantly improve her symptoms PAST MEDICAL HISTORY: See Below PAST SURGICAL HISTORY: See Below SOCIAL HISTORY: See Below HOME MEDICATIONS: See Below ALLERGIES: See Below VITALS: See Below PHYSICAL EXAMINATION: GENERAL: NAD, wearing a mask, non-toxic. Nasal cannula in place. EYE EXAM: Normal conjunctiva. PERRL, no anisocoria and EOM's grossly intact w/o pain. Oropharynx: Grossly normal dentition, dry mucous membranes NECK: Supple, no nuchal rigidity, no adenopathy, non-tender. No signs of meningismus. FROM of the neck with good chin to chest and neck extension. No stridor. LUNGS: Clear to auscultation. Normal chest wall mechanics. HEART: NSR, no MRG. ABDOMEN: Abdomen soft, non-tender, no masses, no rebound or guarding. BACK: No CVA TTP. SKIN: No rashes and no bruising. UPPER EXTREMITIES: Upper extremities are grossly normal. LOWER EXTREMITIES: Right lower extremity held in flexion and externally rotated, mild TTP to hip knee and foot. Swelling and ecchymosis noted to the right foot, neurovascular intact with no crepitus. Well-perfused. NEURO EXAM: A&O x3, cranial nerves II-XII grossly intact, normal speech, moves all 4 extremities. Past Med/Surg History Medical History Anemia hx blood transfusions Hgb baseline 8-9 Anxiety and depression Atrial fibrillation No AC due to GI bleed and anemia Chronic hypoxemic respiratory failure Chronic right-sided HF (heart failure) Likely per cardio secondary to obesity hypo ventilatory syndrome/Pickwickian CKD (chronic kidney disease), stage III [address] 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 WELSH). last check 3 weeks ago Restless leg syndrome Secondary pulmonary hypertension Sick sinus syndrome Spinal stenosis HX Surgical History H/O arthroscopy of knee H/O cystoscopy H/O gastric bypass "1980, reversed in same year" History of appendectomy (~09/07/20) History of arthroscopy LEFT KNEE History of colonoscopy History of ERCP (~09/2020) History of esophagogastroduodenoscopy (EGD) History of herniorrhaphy VENTRAL HERNIA REPAIR= 04/27/17= GRADE VIEW 2, CLEMENTE#2, ETT 7.0 AT [facility] History of lithotripsy History of tonsillectomy History of total hysterectomy with bilateral salpingo-oophorectomy (BSO) (~09/07/20) [place] [facility] [place] History of vascular access device removed [place] teeth removed Family History Mother Scleroderma Lupus Family history of reaction to anesthesia nausea Father Coronary heart disease Heart disease Brother Fatty liver Aunt Cancer unspecified Grandfather (Paternal) Heart disease Grandfather (Maternal) Lung disease Grandmother (Paternal) Stroke Grandmother (Maternal) Family history of diabetes mellitus Social History Smoking Status: Never smoker Tobacco Type: Cigarettes Cigarettes Per Day: couple cigs on weekends in ; Second Hand Exposure: No; Hx Alcohol Use: No Hx Substance Use: No Preferred Language: Bangladeshi Communication Ability: Effective Visual Impairment: No Limitations Cranberry Sorter Required: No Beliefs That Will Affect Care: None marital status: Current Living Situation: Alone Current Living Situation Comment: Lives alone in apartment current occupational status: retired How many Children do You have: 0 Feels Safe at Home: Yes during the past year weight has: remained stable Assistive Devices: Glasses, Oxygen - at Night and Walker Allergies Allergies Allergy/AdvReac Type Severity Reaction Status Date / Time levofloxacin Allergy Intermediate LE Verified 02/27/23 21:16 swelling and blistering paclitaxel [From Taxol] Allergy Intermediate facial Verified 02/27/23 21:16 flushing, bradycardia tramadol Allergy Intermediate Rash Verified 02/27/23 21:16 doxorubicin AdvReac Severe Hypoxia Verified 02/27/23 21:16 clindamycin AdvReac Intermediate PT Verified 02/27/23 21:16 CONTRACTED C-DIFF shellfish derived AdvReac Intermediate NAUSEA,DIARRHEA, Verified 02/27/23 21:16 VOMITING adhesive AdvReac Mild SKIN Verified 02/27/23 21:16 BLISTERS SOME TIMES Home Meds Home Medications Medication Instructions Recorded Confirmed lorazepam 0.5 mg tablet 0.5 mg PO Q8H PRN Anxiety 10/18/18 02/27/23 sertraline 100 mg tablet (Zoloft) 100 mg PO QAM 10/18/18 02/27/23 cyclobenzaprine 5 mg tablet 5 mg PO BID PRN Muscle Spasm 08/25/19 02/27/23 omeprazole 20 mg capsule,delayed 20 mg PO BID 04/12/20 02/27/23 release folic acid 1 mg tablet 1 mg PO QAM 05/08/20 02/27/23 fosfomycin tromethamine 3 gram 3 g PO WK 10/01/20 02/27/23 oral packet (Monurol) sotalol 80 mg tablet 80 mg PO BID 10/01/20 02/27/23 loratadine 10 mg tablet (Claritin) 10 mg PO QAM 09/18/22 02/27/23 acetaminophen 325 mg tablet 325 mg PO DIRECTED PRN 02/27/23 02/27/23 (Tylenol) PAIN/FEVER albuterol sulfate 90 mcg/actuation 2 puff inhalation Q4H PRN Wheezing 02/27/23 02/27/23 aerosol inhaler docusate sodium 100 mg capsule 100 mg PO BID 02/27/23 02/27/23 (Stool Softener) fluoride (sodium) 1.1 % dental 1 applic dental BID 02/27/23 02/27/23 cream (SF 5000 Plus) furosemide 40 mg tablet 40 mg PO QAM 02/27/23 02/27/23 hydroxyzine HCl 25 mg tablet 25 mg PO HS PRN Itching 02/27/23 02/27/23 Previous Rx's Medication Instructions Recorded cholecalciferol (vitamin D3) 50 2,000 unit PO QAM #90 tabs 04/09/21 mcg (2,000 unit) tablet Portable Oxygen #1 ea 01/23/23 potassium chloride 20 mEq 20 meq PO QAM #30 tabs 01/23/23 tablet,extended release(part/cryst) Results & Data (ED) Vital Signs Vital Signs - 24 hr 02/27/23 18:53 02/27/23 19:26 02/27/23 20:32 Temperature 36.8 C Temperature Source Oral Pulse Rate 69 72 Pulse Rate from SpO2 Sensor 72 Respiratory Rate 12 17 Respiratory Effort / Characteristics Non-Labored Respiratory Depth Normal Blood Pressure 155/119 H 152/82 H Blood Pressure Mean 131 105 Pulse Oximetry 75 L 94 94 Oxygen Delivery Method Room Air Nasal Cannula Nasal Cannula Oxygen Flow Rate 4 4 Sepsis Recent Fever Within 48 Hours No Sepsis New/Unexplained Change in Mental Status No Sepsis Action Taken by Nursing No Action Required 02/27/23 21:00 02/27/23 22:00 02/27/23 23:00 Temperature Temperature Source Pulse Rate 72 65 64 Pulse Rate from SpO2 Sensor 65 65 Respiratory Rate 18 18 Respiratory Effort / Characteristics Respiratory Depth Blood Pressure 145/80 H 162/83 H Blood Pressure Mean 101 109 Pulse Oximetry 96 98 Oxygen Delivery Method Nasal Cannula Nasal Cannula Oxygen Flow Rate 4 4 Sepsis Recent Fever Within 48 Hours Sepsis New/Unexplained Change in Mental Status Sepsis Action Taken by Nursing 02/28/23 00:30 Temperature Temperature Source Pulse Rate 63 Pulse Rate from SpO2 Sensor Respiratory Rate 20 Respiratory Effort / Characteristics Respiratory Depth Blood Pressure 136/63 Blood Pressure Mean 87 Pulse Oximetry 97 Oxygen Delivery Method Oxygen Flow Rate Sepsis Recent Fever Within 48 Hours Sepsis New/Unexplained Change in Mental Status Sepsis Action Taken by Assisted Medications Current Medication List: was personally reviewed by me Laboratory Data Attestation: I reviewed the patient's lab results. 02/28/23 06:06 02/28/23 06:06 Lab Results 02/27/23 02/27/23 02/27/23 Range/Units 20:53 20:53 20:57 WBC 7.94 (4.8-10.8) K/ul RBC 3.15 L (4.20-5.40) M/uL Hgb 8.9 L (12.0-16.0) g/dl Hct 28.7 L (37.0-47.0) % MCV 91.1 (80.0-100.0) fL MCH 28.3 (25.0-34.0) pg MCHC 31.0 L (32.0-36.0) g/dL RDW Std Deviation 77.1 H (36.4-46.3) fL RDW Coeff of Patrica 22.8 H (11.5-14.5) % Plt Count 202 (130-400) K/uL MPV 10.7 (9.4-12.4) fL Immature Gran % (Auto) 2.8 % Neut % (Auto) 80.0 % Lymph % (Auto) 10.5 % Calhoun % (Auto) 5.4 % Eos % (Auto) 0.9 % Baso % (Auto) 0.4 % Neut # (Auto) 6.36 (1.40-6.50) K/uL Lymph # (Auto) 0.83 L (1.2-3.4) K/uL Calhoun # (Auto) 0.43 (0.11-0.59) K/uL Eos # (Auto) 0.07 (0-0.50) K/uL Baso # (Auto) 0.03 (0-0.2) K/uL Immature Gran # (Auto) 0.22 H (0.01-0.20) K/uL Absolute Nucleated RBC 0.03 (0-0.12) K/uL Nucleated RBC % (auto) 0.4 % Anisocytosis Present Tear Drop Cells 1+ APTT (21.0-31.0) Seconds PTT Ratio ABG pH (7.35-7.45) ABG pCO2 (35-46) mmHg ABG pO2 (80-95) mmHg ABG HCO3 (19-24) mmol/L ABG O2 Saturation (90-95) % ABG Base Excess (-9-1.8) mEq/L Nitin Test (Pos) Oxygen Given Sodium 138 (136-145) mmol/L Potassium 4.2 (3.5-5.1) mmol/L Chloride 106 (98-107) mmol/L Carbon Dioxide 27 (21-32) mmol/L Anion Gap 5 (3-11) BUN 22 (6-23) mg/dl Creatinine 0.76 (0.6-1.2) mg/dl Est Cr Clr Drug Dosing 88.5 ml/min Est GFR ( Amer) 92.8 ml/min Est GFR (Non-Af Amer) 80.0 ml/min BUN/Creatinine Ratio 28.9 H (10-20) Glucose 130 H (70-99(Fasting)) mg/dl Calcium 8.7 (8.6-10.3) mg/dl Magnesium 1.6 L (1.7-2.4) mg/dl Total Bilirubin 0.7 (0.2-1.0) mg/dl AST 39 (13-39) U/L ALT 29 (7-52) U/L Alkaline Phosphatase 132 H (34-104) U/L Total Protein 6.5 (6.0-8.3) gm/dl Albumin 3.5 (3.4-5.0) gm/dl Globulin 3.0 (2.5-4.0) gm/dl Albumin/Globulin Ratio 1.2 (0.9-2) SARS-CoV-2, RNA, NAAT NEGATIVE (NEGATIVE) 02/27/23 02/27/23 Range/Units 23:06 23:06 WBC (4.8-10.8) K/ul RBC (4.20-5.40) M/uL Hgb (12.0-16.0) g/dl Hct (37.0-47.0) % MCV (80.0-100.0) fL MCH (25.0-34.0) pg MCHC (32.0-36.0) g/dL RDW Std Deviation (36.4-46.3) fL RDW Coeff of Patrica (11.5-14.5) % Plt Count (130-400) K/uL MPV (9.4-12.4) fL Immature Gran % (Auto) % Neut % (Auto) % Lymph % (Auto) % Calhoun % (Auto) % Eos % (Auto) % Baso % (Auto) % Neut # (Auto) (1.40-6.50) K/uL Lymph # (Auto) (1.2-3.4) K/uL [place]oun # (Auto) (0.11-0.59) K/uL Eos # (Auto) (0-0.50) K/uL Baso # (Auto) (0-0.2) K/uL Immature Gran # (Auto) (0.01-0.20) K/uL Absolute Nucleated RBC (0-0.12) K/uL Nucleated RBC % (auto) % Anisocytosis Tear Drop Cells APTT 27.4 (21.0-31.0) Seconds PTT Ratio 1.0 ABG pH 7.32 L (7.35-7.45) ABG pCO2 53 H (35-46) mmHg ABG pO2 97 H (80-95) mmHg ABG HCO3 27 H (19-24) mmol/L ABG O2 Saturation 97.3 H (90-95) % ABG Base Excess 0.3 (-9-1.8) mEq/L Nitin Test POS (Pos) Oxygen Given 4L O2 Sodium (136-145) mmol/L Potassium (3.5-5.1) mmol/L Chloride (98-107) mmol/L Carbon Dioxide (21-32) mmol/L Anion Gap (3-11) BUN (6-23) mg/dl Creatinine (0.6-1.2) mg/dl Est Cr Clr Drug Dosing ml/min Est GFR ( Amer) ml/min Est GFR (Non-Af Amer) ml/min BUN/Creatinine Ratio (10-20) Glucose (70-99(Fasting)) mg/dl Calcium (8.6-10.3) mg/dl Magnesium (1.7-2.4) mg/dl Total Bilirubin (0.2-1.0) mg/dl AST (13-39) U/L ALT (7-52) U/L Alkaline Phosphatase (34-104) U/L Total Protein (6.0-8.3) gm/dl Albumin (3.4-5.0) gm/dl Globulin (2.5-4.0) gm/dl Albumin/Globulin Ratio (0.9-2) SARS-CoV-2, RNA, NAAT (NEGATIVE) Administered Medications Discontinued Medications Cyclobenzaprine HCl (Cyclobenzaprine Hcl 5 Mg Tab) 5 mg PO BID PRN PRN Reason: Muscle Spasm Stop: 03/30/23 03:18 Last Admin: 02/28/23 08:23 Dose: 5 mg Documented By: ELTON Docusate Sodium (Docusate Sodium 100 Mg Cap) 100 mg PO BID ADINA Stop: 03/30/23 08:59 Last Admin: 02/28/23 08:23 Dose: 100 mg Documented By: ELTON Fentanyl Citrate (Fentanyl Citrate Pf 100 Mcg/2 Ml Vial) 25 mcg IV NOW STA Stop: 02/27/23 21:45 Last Admin: 02/27/23 21:58 Dose: 25 mcg Documented By: VILMA Folic Acid (Folic Acid 1 Mg Tab) 1 mg PO QAM ADINA Stop: 03/30/23 08:59 Last Admin: 02/28/23 08:23 Dose: 1 mg Documented By: ELTON Hydromorphone HCl (Hydromorphone Inj 0.5 Mg/0.5 Ml Syr) 0.5 mg IV Q4H PRN PRN Reason: Pain Stop: 03/14/23 01:03 Last Admin: 02/28/23 14:06 Dose: 0.5 mg Documented By: Admin: 02/28/23 05:23 Dose: 0.5 mg Documented By: SHI Acetaminophen (Ofirmev) 1,000 mg in 100 mls @ 400 mls/hr IV NOW STA Stop: 02/27/23 19:39 Last Infusion: 02/27/23 23:36 Dose: 0 mls/hr Documented By: Admin: 02/27/23 20:26 Dose: 400 mls/hr Documented By: VILMA Sodium Chloride (Nss 1000ml) 500 mls @ 999 mls/hr IV .Q31M ONE Stop: 02/27/23 19:55 Last Infusion: 02/27/23 23:36 Dose: 0 mls/hr Documented By: Admin: 02/27/23 20:26 Dose: 999 mls/hr Documented By: VILMA Magnesium Sulfate/Dextrose (Magnesium Sulfate / D5w) 1 gm in 100 mls @ 50 mls/hr IV Q2H ADINA Stop: 02/28/23 04:44 Last Infusion: 02/28/23 07:00 Dose: 0 mls/hr Documented By: Admin: 02/28/23 04:40 Dose: 50 mls/hr Documented By: Infusion: 02/28/23 04:36 Dose: 50 mls/hr Documented By: Admin: 02/28/23 02:36 Dose: 50 mls/hr Documented By: LUCY Ketorolac Tromethamine (Ketorolac Tromethamine 15 Mg/Ml Vial) 15 mg IV NOW ONE Stop: 02/27/23 23:46 Last Admin: 02/28/23 00:18 Dose: 15 mg Documented By: LUCY Lidocaine (Lidocaine 5% 1 Patch) 1 patch TD NOW ONE Stop: 02/28/23 01:31 Last Admin: 02/28/23 02:37 Dose: 1 patch Documented By: LUCY Loratadine (Loratadine 10 Mg Tab) 10 mg PO QAM ADINA Stop: 03/30/23 08:59 Last Admin: 02/28/23 08:23 Dose: 10 mg Documented By: ELTON Lorazepam (Lorazepam 0.5 Mg Tab) 0.25 mg PO Q8H PRN PRN Reason: Anxiety Stop: 03/30/23 03:18 Last Admin: 02/28/23 08:19 Dose: 0.25 mg Documented By: ELTON Miscellaneous (Remove Lidoderm Patch) 1 each N/A DAILY@2100 [facility] Stop: 03/30/23 13:59 Last Admin: 02/28/23 13:40 Dose: 1 each Documented By: ELTON Oxycodone HCl (Oxycodone Hcl Ir 5 Mg Tab (Immediate Release)) 5 - 10 mg PO QID PRN PRN Reason: Pain Stop: 03/13/23 23:36 Last Admin: 02/28/23 10:26 Dose: 5 mg Documented By: ELTON Oxycodone HCl (Oxycodone Hcl Ir 5 Mg Tab (Immediate Release)) 5 mg PO NOW STA Stop: 02/28/23 00:55 Last Admin: 02/28/23 02:37 Dose: 5 mg Documented By: LUCY Pantoprazole Sodium (Pantoprazole 40 Mg Tab) 40 mg PO BID [facility] Stop: 03/30/23 08:59 Last Admin: 02/28/23 08:23 Dose: 40 mg Documented By: ELTON Sertraline HCl (Sertraline Hcl 100 Mg Tablet) 100 mg PO QAM ADINA Stop: 03/30/23 08:59 Last Admin: 02/28/23 08:24 Dose: 100 mg Documented By: ELTON Sotalol HCl (Sotalol Hcl 80 Mg Tab) 80 mg PO NOW ONE Stop: 02/28/23 00:16 Last Admin: 02/28/23 02:36 Dose: 80 mg Documented By: LUCY Sotalol HCl (Sotalol Hcl 80 Mg Tab) 80 mg PO BID [facility] Stop: 03/30/23 08:59 Last Admin: 02/28/23 08:24 Dose: 80 mg Documented By: ELTON Imaging Data Radiologist's Impression: Ankle X-Ray 02/27/23 19:25 RIGHT ANKLE 3 VIEWS CLINICAL HISTORY: Fall. Right leg injury. FINDINGS: 3 views of the right ankle are obtained. No prior studies are available for comparison at the time of dictation. The skeletal structures are osteopenic. No fracture is seen. The ankle mortise is intact. There are large dorsal and plantar calcaneal enthesophytes. Degenerative spurring is seen along the dorsal aspect of the tarsal bones. No joint effusion is identified. Soft tissue calcifications are seen at the attachment of the Achilles tendon. Mild soft tissue edema is present in the calf. IMPRESSION: Mild soft tissue swelling with no fracture identified at the ankle joint. Electronically signed by: Freddie Mae M.D. 02/27/2023 8:44 PM Femur X-Ray 02/27/23 19:25 RIGHT FEMUR 3 VIEWS CLINICAL HISTORY: Fall. Right leg injury. FINDINGS: AP, crosstable lateral, and frog-leg views of the right femur are obtained. No prior studies are available for comparison at the time of dictation. The skeletal structures are osteopenic. There is a comminuted frac ture of the distal femoral metadiaphysis with minimally displaced fragments. Overlying soft tissue edema is noted. The proximal right femur appears intact. Degenerative change is noted in the hip and knee joints. The visualized right hemipelvis appears intact. IMPRESSION: Distal femoral metadiaphyseal fracture as above. Electronically signed by: Freddie Mae M.D. 02/27/2023 8:48 PM Foot X-Ray 02/27/23 19:25 RIGHT FOOT 3 VIEWS CLINICAL HISTORY: Fall. Right leg injury. FINDINGS: 3 views of the right foot are obtained. No prior studies are available for comparison at the time of dictation. The skeletal structures are osteopenic. No fracture is seen. Mild degenerative change is seen throughout the foot. There are large dorsal and plantar calcaneal enthesophytes. There is calcification at the attachment of Achilles tendon. Soft tissue swelling is noted in the foot. IMPRESSION: 1. Soft tissue swelling with no radiographic evidence of acute fracture. 2. Osteopenia, degenerative change, and heel spurs as above. Electronically signed by: Freddie Mae M.D. 02/27/2023 8:46 PM Knee X-Ray 02/27/23 19:25 RIGHT KNEE 2 VIEWS; RIGHT TIBIA AND FIBULA 2 VIEWS CLINICAL HISTORY: Fall. Right leg injury. FINDINGS: Crosstable AP and lateral views of the right knee with crosstable AP and lateral views of the right tibia and fibula are obtained. No prior studies are available for comparison at the time of dictation. The skeletal structures are osteopenic. There is a comminuted fracture of the distal femoral met adiaphysis. There is minimal displacement of fragments and overlying soft tissue edema. No additional fracture is seen at the knee joint. There is no radiographic evidence of right tibial or fibular fracture. There is advanced tricompartmental degenerative joint space narrowing of the right knee. There are large marginal osteophytes and patellar enthesophytes. Bony overgrowth is seen around the the joint. There is a knee joint effusion. The ankle mortise appears intact. There are large dorsal and plantar calcaneal enthesophytes. Calcification is seen at the attachment of the Achilles tendon. Mild soft tissue swelling is noted in the right calf. IMPRESSION: 1. Comminuted fracture of the distal right femoral metadiaphysis as above. 2. No additional fracture seen at the right knee joint. 3. There is no radiographic evidence of right tibial or fibular fracture. 4. Osteopenia and degenerative change as above. Electronically signed by: Freddie Mae M.D. 02/27/2023 8:24 PM Pelvis X-Ray 02/27/23 19:25 SINGLE VIEW PELVIS CLINICAL HISTORY: Fall. Right leg pain. FINDINGS: An AP view of the pelvis is correlated with pelvic CT dated 01/16/2023. The skeletal structures are osteopenic. There is no radiographic evidence of acute fracture involving the hips or bony pelvis. Degenerative sclerosis is noted in the sacroiliac joints. Mild arthritic change and joint space narrowing is seen in the hips. Enthesophytes arise from the anterior superior iliac spines. Lumbosacral spondylosis is partially imaged. The overlying soft tissues are within normal limits. Numerous phleboliths are seen in the pelvis. IMPRESSION: No acute bony abnormality is identified. Electronically signed by: Freddie Mae M.D. 02/27/2023 8:43 PM Tibia/Fibula X-Ray 02/27/23 19:25 RIGHT KNEE 2 VIEWS; RIGHT TIBIA AND FIBULA 2 VIEWS CLINICAL HISTORY: Fall. Right leg injury. FINDINGS: Crosstable AP and lateral views of the right knee with crosstable AP and lateral views of the right tibia and fibula are obtained. No prior studies are available for comparison at the time of dictation. The skeletal structures are osteopenic. There is a comminuted fracture of the distal femoral metadiaphysis. There is minimal displacement of fragments and overlying soft tissue edema. No additional fracture is seen at the knee joint. There is no radiographic evidence of right tibial or fibular fracture. There is advanced tricompartmental degenerative joint space narrowing of the right knee. There are large marginal osteophytes and patellar enthesophytes. Bony overgrowth is seen around the the joint. There is a knee joint effusion. The ankle mortise appears intact. There are large dorsal and plantar calcaneal enthesophytes. Calcificatio n is seen at the attachment of the Achilles tendon. Mild soft tissue swelling is noted in the right calf. IMPRESSION: 1. Comminuted fracture of the distal right femoral metadiaphysis as above. 2. No additional fracture seen at the right knee joint. 3. There is no radiographic evidence of right tibial or fibular fracture. 4. Osteopenia and degenerative change as above. Electronically signed by: Freddie Mae M.D. 02/27/2023 8:[address] 02/27/23 19:26 Exam(s): CT C SPINE EXAM: CT Cervical Spine Without Intravenous Contrast CLINICAL HISTORY: Reason for exam: Trauma. TECHNIQUE: Axial computed tomography images of the cervical spine without intravenous contrast. CTDI is 21.37 mGy and DLP is 471.77 mGy-cm. Automated exposure control was utilized for the study. A dose lowering technique was utilized adhering to the principles of ALARA. COMPARISON: None. FINDINGS: Vertebrae: Grade 1 anterolisthesis of C4 and C4 on C5. No acute fracture. Discs/spinal canal/neural foramina: Degenerative disc disease and facet arthrosis throughout the cervical spine which yields varying the foraminal narrowing. No high-grade spinal canal stenosis. Soft tissues: Unremarkable. Vasculature: Atherosclerotic calcifications of the carotid bifurcations. IMPRESSION: No acute fracture or traumatic malalignment of the cervical spine. Electronically signed by: Boni Paredes MD 02/27/23 22:[address] 02/27/23 19:26 Exam(s): CT HEAD Without Contrast EXAM: CT Head Without Intravenous Contrast CLINICAL HISTORY: Reason for exam: Trauma. TECHNIQUE: Axial computed tomography images of the head/brain without intravenous contrast. CTDI is 50.48 mGy and DLP is 884.08 mGy-cm. Automated exposure control was utilized for the study. A dose lowering technique was utilized adhering to the principles of ALARA. COMPARISON: None. FINDINGS: Brain: Global parenchymal volume loss with chronic microvascular ischemic changes. No hemorrhage. Ventricles: Unremarkable. No ventriculomegaly. Bones/joints: Unremarkable. No acute fracture. Soft tissues: Unremarkable. Sinuses: Mucosal thickening right sphenoid sinus. Mastoid air cells: Unremarkable as visualized. No mastoid effusion. IMPRESSION: 1. No intracranial hemorrhage or other acute intracranial abnormality. 2. Global parenchymal volume loss with chronic microvascular ischemic changes. Electronically signed by: Boni Paredes MD 02/27/23 21:54 PM Chest X-Ray 02/27/23 19:28 SINGLE VIEW CHEST CLINICAL HISTORY: Hypoxia. Fall. FINDINGS: An AP, portable, semierect chest radiograph is compared to study dated 01/23/2023. Correlation is made with chest CT dated 11/28/2020. The examination is degraded by portable technique and apical lordotic positioning. A 2-lead cardiac pacemaker is unchanged in position. The heart is enlarged. Atherosclerotic calcification of the thoracic aorta. The pulmonary vasculature is noncongested. Chronic interstitial thickening is similar to previous. Foci of parenchymal scarring are again seen throughout both lungs. Scarring/atelectasis is also seen at the lung bases. No airspace consolidation or large pleural effusion is identified. No pneumothorax is seen. The skeletal structures are osteopenic. The bony thorax is grossly intact. IMPRESSION: 1. Cardiomegaly and cardiac pacemaker without radiographic evidence of congestive failure. 2. No airspace consolidation or large pleural effusion is identified. ACT 112: Negative or not required by law. Electronically signed by: Freddie Mae M.D. 02/27/2023 8:[address] 02/27/23 20:12 Exam(s): CT RIGHT KNEE Without Contrast EXAM: CT Right Lower Extremity Without Intravenous Contrast, Knee CLINICAL HISTORY: Reason for exam: periprosthetic frx on XR. TECHNIQUE: Axial computed tomography images of the right knee without intravenous contrast. CTDI is 28.02 mGy and DLP is 709.02 mGy-cm. Automated exposure control was utilized for the study. A dose lowering technique was utilized adhering to the principles of ALARA. COMPARISON: Right knee radiographs 02/27/2023. FINDINGS: Bones/joints: Comminuted intra-articular fracture of the distal femur. Severe tricompartmental osteoarthritis of the right knee. Suprapatellar joint effusion. No dislocation. Soft tissues: Soft tissue swelling about the knee. Vasculature: Atherosclerotic calcifications present. IMPRESSION: 1. Comminuted intra-articular fracture of the distal femur. 2. Severe tricompartmental osteoarthritis of the right knee. Electronically signed by: Boni Paredes MD 02/27/23 22:21 PM Discharge Plan Visit Data Chief Complaint: Fall Stated Complaint: Leg Pain ED Provider: Sachin Vale Discharge Problem: Supracondylar fracture of right femur, Interstitial lung disease, Chronic hypoxemic respiratory failure, Fall Patient Disposition: Admitted As Inpatient Discharge Instructions Interventions: ED Discharge Assessment Last Done: 02/28/23 02:55
[2023-02-27] MEDS ORDERED: ACETAMINOPHEN 1,000 MG/100 ML VIAL IV STA (19:25)
[2023-02-27] MEDS ORDERED: SODIUM CHLORIDE 0.9% 1000ML 500 ML IV ONE (19:25)
--- NOTE | 2023-02-27 20:26 | XRay Report ---
RIGHT KNEE 2 VIEWS; RIGHT TIBIA AND FIBULA 2 VIEWS CLINICAL HISTORY: Fall. Right leg injury. FINDINGS: Crosstable AP and lateral views of the right knee with crosstable AP and lateral views of t he right tibia and fibula are obtained. No prior studies are available for comparison at the time of dictation. The skeletal structures are osteopenic. There is a comminuted fracture of the distal femor al metadiaphysis. There is minimal displacement of fragments and overlying soft tissue edema. No amaury tional fracture is seen at the knee joint. There is no radiographic evidence of right tibial or fibul ar fracture. There is advanced tricompartmental degenerative joint space narrowing of the right knee. There are large marginal osteophytes and patellar enthesophytes. Bony overgrowth is seen around the the joint. There is a knee joint effusion. The ankle mortise appears intact. There are large dorsal a nd plantar calcaneal enthesophytes. Calcification is seen at the attachment of the Achilles tendon. M ild soft tissue swelling is noted in the right calf. IMPRESSION: 1. Comminuted fracture of the distal right femoral metadiaphysis as above. 2. No additional fracture seen at the right knee joint. 3. There is no radiographic evidence of right tibial or fibular fracture. 4. Osteopenia and degenerative change as above. Electronically signed by: Freddie Mae M.D. 02/27/2023 8:24 PM
--- NOTE | 2023-02-27 20:38 | XRay Report ---
SINGLE VIEW CHEST CLINICAL HISTORY: Hypoxia. Fall. FINDINGS: An AP, portable, semierect chest radiograph is compared to study dated 01/23/2023. Correlati on is made with chest CT dated 11/28/2020. The examination is degraded by portable technique and apica l lordotic positioning. A 2-lead cardiac pacemaker is unchanged in position. The heart is enlarged. A therosclerotic calcification of the thoracic aorta. The pulmonary vasculature is noncongested. Chroni c interstitial thickening is similar to previous. Foci of parenchymal scarring are again seen through out both lungs. Scarring/atelectasis is also seen at the lung bases. No airspace consolidation or lar ge pleural effusion is identified. No pneumothorax is seen. The skeletal structures are osteopenic. T he bony thorax is grossly intact. IMPRESSION: 1. Cardiomegaly and cardiac pacemaker without radiographic evidence of congestive failure. 2. No airspace consolidation or large pleural effusion is identified. ACT 112: Negative or not required by law. Electronically signed by: Freddie Mae M.D. 02/27/2023 8:37 PM
--- NOTE | 2023-02-27 20:44 | XRay Report ---
SINGLE VIEW PELVIS CLINICAL HISTORY: Fall. Right leg pain. FINDINGS: An AP view of the pelvis is correlated with pelvic CT dated 01/16/2023. The skeletal structu res are osteopenic. There is no radiographic evidence of acute fracture involving the hips or bony pe lvis. Degenerative sclerosis is noted in the sacroiliac joints. Mild arthritic change and joint space narrowing is seen in the hips. Enthesophytes arise from the anterior superior iliac spines. Lumbosac ral spondylosis is partially imaged. The overlying soft tissues are within normal limits. Numerous ph leboliths are seen in the pelvis. IMPRESSION: No acute bony abnormality is identified. Electronically signed by: Freddie Mae M.D. 02/27/2023 8:43 PM
--- NOTE | 2023-02-27 20:46 | XRay Report ---
RIGHT ANKLE 3 VIEWS CLINICAL HISTORY: Fall. Right leg injury. FINDINGS: 3 views of the right ankle are obtained. No prior studies are available for comparison at t he time of dictation. The skeletal structures are osteopenic. No fracture is seen. The ankle mortise is intact. There are large dorsal and plantar calcaneal enthesophytes. Degenerative spurring is seen along the dorsal aspect of the tarsal bones. No joint effusion is identified. Soft tissue calcificati ons are seen at the attachment of the Achilles tendon. Mild soft tissue edema is present in the calf. IMPRESSION: Mild soft tissue swelling with no fracture identified at the ankle joint. Electronically signed by: Freddei Mae M.D. 02/27/2023 8:44 PM
--- NOTE | 2023-02-27 20:47 | XRay Report ---
RIGHT FOOT 3 VIEWS CLINICAL HISTORY: Fall. Right leg injury. FINDINGS: 3 views of the right foot are obtained. No prior studies are available for comparison at th e time of dictation. The skeletal structures are osteopenic. No fracture is seen. Mild degenerative c hange is seen throughout the foot. There are large dorsal and plantar calcaneal enthesophytes. There is calcification at the attachment of Achilles tendon. Soft tissue swelling is noted in the foot. IMPRESSION: 1. Soft tissue swelling with no radiographic evidence of acute fracture. 2. Osteopenia, degenerative change, and heel spurs as above. Electronically signed by: Freddie Mae M.D. 02/27/2023 8:46 PM
--- NOTE | 2023-02-27 20:49 | XRay Report ---
RIGHT FEMUR 3 VIEWS CLINICAL HISTORY: Fall. Right leg injury. FINDINGS: AP, crosstable lateral, and frog-leg views of the right femur are obtained. No prior studie s are available for comparison at the time of dictation. The skeletal structures are osteopenic. Ther e is a comminuted fracture of the distal femoral metadiaphysis with minimally displaced fragments. Ov erlying soft tissue edema is noted. The proximal right femur appears intact. Degenerative change is n oted in the hip and knee joints. The visualized right hemipelvis appears intact. IMPRESSION: Distal femoral metadiaphyseal fracture as above. Electronically signed by: Freddie Mae M.D. 02/27/2023 8:48 PM
[2023-02-27 21:27] LABS: Albumin Globulin Ratio 1.2 (0.9-2); Albumin Level 3.5 gm/dl (3.4-5.0); BUN Creatinine Ratio 28.9 (10-20); Bilirubin,Total 0.7 mg/dl (0.2-1.0); Calcium 8.7 mg/dl (8.6-10.3); Creatinine Clr Calc Pharmacy 88.5 ml/min; Est GFR (African American) 92.8 ml/min; Potassium 4.2 mmol/L (3.5-5.1); Total Protein 6.5 gm/dl (6.0-8.3)
[2023-02-27 21:40] LABS: Basophils # (auto) 0.03 K/uL (0-0.2); Basophils % (auto) 0.4 %; Eosinophils # (auto) 0.07 K/uL (0-0.50); Eosinophils % (auto) 0.9 %; Hematocrit (blood only) 28.7 % (37.0-47.0); Hemoglobin 8.9 g/dl (12.0-16.0); Immature Granulocytes # (auto) 0.22 K/uL (0.01-0.20); Immature Granulocytes % (auto) 2.8 %; Lymphocytes # (auto) 0.83 K/uL (1.2-3.4); Lymphocytes % (auto) 10.5 %; Mean Corpuscular Hemoglobin 28.3 pg (25.0-34.0); Mean Corpuscular Volume 91.1 fL (80.0-100.0); Mean Platelet Volume 10.7 fL (9.4-12.4); Monocytes # (auto) 0.43 K/uL (0.11-0.59); Monocytes % (auto) 5.4 %; Neutrophils # (auto) 6.36 K/uL (1.40-6.50); Nucleated RBC # (auto) 0.03 K/uL (0-0.12); Nucleated RBC % (auto) 0.4 %; Platelet Count 202 K/uL (130-400); RDW Coefficient of Variation 22.8 % (11.5-14.5); RDW Standard Deviation 77.1 fL (36.4-46.3); Red Blood Count 3.15 M/uL (4.20-5.40); White Blood Count 7.94 K/ul (4.8-10.8)
[2023-02-27] MEDS ORDERED: fentaNYL citrate PF 100 MCG/2 ML VIAL IV STA (21:44)
--- NOTE | 2023-02-27 21:55 | CT Scan Report ---
Exam(s): CT HEAD Without Contrast EXAM: CT Head Without Intravenous Contrast CLINICAL HISTORY: Reason for exam: Trauma. TECHNIQUE: Axial computed tomography images of the head/brain without intravenous contrast. CTDI is 50.48 mGy and DLP is 884.08 mGy-cm. Automated exposure control was utilized for the study. A dose lowering technique was utilized adhering to the principles of ALARA. COMPARISON: None. FINDINGS: Brain: Global parenchymal volume loss with chronic microvascular ischemic changes. No hemorrhage. Ventricles: Unremarkable. No ventriculomegaly. Bones/joints: Unremarkable. No acute fracture. Soft tissues: Unremarkable. Sinuses: Mucosal thickening right sphenoid sinus. Mastoid air cells: Unremarkable as visualized. No mastoid effusion. IMPRESSION: 1. No intracranial hemorrhage or other acute intracranial abnormality. 2. Global parenchymal volume loss with chronic microvascular ischemic changes. Electronically signed by: Boni Paredes MD 02/27/23 21:54 PM
[2023-02-27 22:17] LABS: Anisocytosis Present; Tear Drop Cells 1+
--- NOTE | 2023-02-27 22:18 | CT Scan Report ---
Exam(s): CT C SPINE EXAM: CT Cervical Spine Without Intravenous Contrast CLINICAL HISTORY: Reason for exam: Trauma. TECHNIQUE: Axial computed tomography images of the cervical spine without intravenous contrast. CTDI is 21.37 mGy and DLP is 471.77 mGy-cm. Automated exposure control was utilized for the study. A dose lowering technique was utilized adhering to the principles of ALARA. COMPARISON: None. FINDINGS: Vertebrae: Grade 1 anterolisthesis of C4 and C4 on C5. No acute fracture. Discs/spinal canal/neural foramina: Degenerative disc disease and facet arthrosis throughout the cervical spine which yields varying the foraminal narrowing. No high-grade spinal canal stenosis. Soft tissues: Unremarkable. Vasculature: Atherosclerotic calcifications of the carotid bifurcations. IMPRESSION: No acute fracture or traumatic malalignment of the cervical spine. Electronically signed by: Boni Paredes MD 02/27/23 22:17 PM
--- NOTE | 2023-02-27 22:22 | CT Scan Report ---
Exam(s): CT RIGHT KNEE Without Contrast EXAM: CT Right Lower Extremity Without Intravenous Contrast, Knee CLINICAL HISTORY: Reason for exam: periprosthetic frx on XR. TECHNIQUE: Axial computed tomography images of the right knee without intravenous contrast. CTDI is 28.02 mGy and DLP is 709.02 mGy-cm. Automated exposure control was utilized for the study. A dose lowering technique was utilized adhering to the principles of ALARA. COMPARISON: Right knee radiographs 02/27/2023. FINDINGS: Bones/joints: Comminuted intra-articular fracture of the distal femur. Severe tricompartmental osteoarthritis of the right knee. Suprapatellar joint effusion. No dislocation. Soft tissues: Soft tissue swelling about the knee. Vasculature: Atherosclerotic calcifications present. IMPRESSION: 1. Comminuted intra-articular fracture of the distal femur. 2. Severe tricompartmental osteoarthritis of the right knee. Electronically signed by: Boni Paredes MD 02/27/23 22:21 PM
[2023-02-27 22:56] LABS: Magnesium 1.6 mg/dl (1.7-2.4)
[2023-02-27 23:21] LABS: Base Excess ABG 0.3 mEq/L (-9-1.8); HCO3 ABG 27 mmol/L (19-24); Oxygen Saturation ABG 97.3 % (90-95); PCO2 ABG 53 mmHg (35-46); PO2 ABG 97 mmHg (80-95); pH ABG 7.32 (7.35-7.45)
[2023-02-27 23:33] LABS: Allen Test POS (Pos)
[2023-02-27 23:37] LABS: Partial Thromboplastin Time 27.4 Seconds (21.0-31.0)
[2023-02-27] MEDS ORDERED: oxyCODONE HCL IR 5 MG TAB (IMMEDIATE RELEASE) PO PRN (23:37)
[2023-02-27] MEDS ORDERED: ACETAMINOPHEN 325 MG TAB PO PRN (23:37)
[2023-02-27] MEDS ORDERED: KETOROLAC TROMETHAMINE 15 MG/ML VIAL IV ONE (23:45)
[2023-02-28] MEDS ORDERED: ACETAMINOPHEN 500 MG TAB PO PRN (00:13)
[2023-02-28] MEDS ORDERED: SOTALOL HCL 80 MG TAB PO ONE (00:15)
[2023-02-28] MEDS ORDERED: oxyCODONE HCL IR 5 MG TAB (IMMEDIATE RELEASE) PO STA (00:54)
--- NOTE | 2023-02-28 00:56 | History & Physical Report ---
Date of Service February 28, 2023 Assessment & Plan (1) Respiratory failure with hypercapnia: Plan: Acute on chronic hx chronic respiratory failure secondary to pulmonary hypertension secondary to ILD, likely OHS, hx BERRY (CPAP intolerance)/nocturnal hypoxemia on home O2 Patient without respiratory complaints. Hypoxemia possibly secondary to hypoventilation post IV narcotic administration for traumatic right femoral fracture en route to the ER. SSS sp PPM not on anticoagulation secondary to GI bleed, hypertension NAFLD cirrhosis, no overt decompensation hx GERD, history esophageal varices ovarian cancer status post surgery/incomplete chemotherapy hx recurrent ESBL E. coli UTI on Fosfomycin suppression Rx/history urolithiasis CRI creatinine at baseline prediabetes, hemoglobin A1c of 5.17 December 2022 chronic anemia, hemoglobin at baseline chronic thrombocytopenia secondary to liver disease, platelets currently within normal limits past tobacco abuse Medical telemetry Supplemental O2 Patient adamantly refusing BiPAP. Recheck ABG Analgesia, hold parameters for narcotics for sedation confusion Orthopedics consult Re: Traumatic right femoral fracture Pulmonary consult Re: Respiratory failure, preop eval N.p.o. until patient seen by orthopedics in anticipation of procedure. DVT prophylaxis. SCDs Re: Possible procedure, history thrombocytopenia DNR Patient requests for her brother to be given updates by providers. Mr. Jefry Bah, contact #[phone]. Text document was generated using [employer] voice recognition software. It may contain grammatical or spelling errors. Kindly contact undersigned for clarification of any documentation item in question. History of Present Illness Chief Complaint: Fall, right leg pain Primary Care Provider: Kat Hawthorne DO History obtained from patient, family, and records. Medical history significant for SSS sp PPM not on anticoagulation secondary to GI bleed, hypertension, chronic respiratory failure secondary to pulmonary hypertension secondary to ILD, hx BERRY (CPAP intolerance)/nocturnal hypoxemia on home O2, NAFLD cirrhosis, cholelithiasis, GERD, history esophageal varices, ovarian cancer status post surgery/incomplete chemotherapy, recurrent ESBL E. coli UTI on Fosfomycin suppression Rx, history urolithiasis, history of C. difficile secondary to clindamycin, CRI (baseline creatinine 1.1), prediabetes, chronic anemia (baseline hemoglobin of 8), chronic thrombocytopenia, hx left knee surgery ([facility], December 2022), past tobacco abuse. Recent [facility] confinement last month for sepsis secondary to postop pneumonia following elective left robotic assisted total knee arthroplasty at [facility]. Obstructive jaundice also noted during confinement attributed to choledocholithiasis status post ERCP and stent placement. Last week, patient noted low back pain symptoms more on the right which he attributed to sciatica from intense outpatient physical therapy. No leg weakness/numbness, fever, chills, incontinence symptoms. Pain worse on motion. Patient had worsening right-sided back pain causing her to fall down yesterday afternoon. Excruciating right leg pain. Some head trauma without LOC. No unusual chest pain, SOB. Patient received Fentanyl from EMS on route to the hospital. O2 sat 70s upon arrival at the ER. 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 Allergies Allergy/AdvReac Type Severity Reaction Status Date / Time levofloxacin Allergy Intermediate LE Verified 02/27/23 21:16 swelling and blistering paclitaxel [From Taxol] Allergy Intermediate facial Verified 02/27/23 21:16 flushing, bradycardia tramadol Allergy Intermediate Rash Verified 02/27/23 21:16 doxorubicin AdvReac Severe Hypoxia Verified 02/27/23 21:16 clindamycin AdvReac Intermediate PT Verified 02/27/23 21:16 CONTRACTED C-DIFF shellfish derived AdvReac Intermediate NAUSEA,DIARRHEA, Verified 02/27/23 21:16 VOMITING adhesive AdvReac Mild SKIN Verified 02/27/23 21:16 BLISTERS SOME TIMES Home Medications Medication Instructions Recorded Confirmed Type lorazepam 0.5 mg tablet 0.5 mg PO Q8H PRN Anxiety 10/18/18 02/27/23 History sertraline 100 mg tablet (Zoloft) 100 mg PO QAM 10/18/18 02/27/23 History cyclobenzaprine 5 mg tablet 5 mg PO BID PRN Muscle Spasm 08/25/19 02/27/23 History omeprazole 20 mg capsule,delayed 20 mg PO BID 04/12/20 02/27/23 History release folic acid 1 mg tablet 1 mg PO QAM 05/08/20 02/27/23 History fosfomycin tromethamine 3 gram 3 g PO WK 10/01/20 02/27/23 History oral packet (Monurol) sotalol 80 mg tablet 80 mg PO BID 10/01/20 02/27/23 History cholecalciferol (vitamin D3) 50 2,000 unit PO QAM #90 tabs 04/09/21 02/27/23 Rx mcg (2,000 unit) tablet loratadine 10 mg tablet (Claritin) 10 mg PO QAM 09/18/22 02/27/23 History Portable Oxygen #1 ea 01/23/23 01/16/23 Rx potassium chloride 20 mEq 20 meq PO QAM #30 tabs 01/23/23 02/27/23 Rx tablet,extended release(part/cryst) acetaminophen 325 mg tablet 325 mg PO DIRECTED PRN 02/27/23 02/27/23 History (Tylenol) PAIN/FEVER albuterol sulfate 90 mcg/actuation 2 puff inhalation Q4H PRN Wheezing 02/27/23 02/27/23 History aerosol inhaler docusate sodium 100 mg capsule 100 mg PO BID 02/27/23 02/27/23 History (Stool Softener) fluoride (sodium) 1.1 % dental 1 applic dental BID 02/27/23 02/27/23 History cream (SF 5000 Plus) furosemide 40 mg tablet 40 mg PO QAM 02/27/23 02/27/23 History hydroxyzine HCl 25 mg tablet 25 mg PO HS PRN Itching 02/27/23 02/27/23 History Past Med/Surg History Medical History Anemia hx blood transfusions Hgb baseline 8-9 Anxiety and depression Atrial fibrillation No AC due to GI bleed and anemia Chronic hypoxemic respiratory failure Chronic right-sided HF (heart failure) Likely per cardio secondary to obesity hypo ventilatory syndrome/Pickwickian CKD (chronic kidney disease), stage [address] 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 WELSH). last check 3 weeks ago Restless leg syndrome Sick sinus syndrome Spinal stenosis HX Surgical History H/O arthroscopy of knee H/O cystoscopy H/O gastric bypass "1980, reversed in same year" History of appendectomy (~09/07/20) History of arthroscopy LEFT KNEE History of colonoscopy History of ERCP (~09/2020) History of esophagogastroduodenoscopy (EGD) History of herniorrhaphy VENTRAL HERNIA REPAIR= 04/27/17= GRADE VIEW 2, CLEMENTE#2, ETT 7.0 AT [facility] History of lithotripsy History of tonsillectomy History of total hysterectomy with bilateral salpingo-oophorectomy (BSO) (~09/07/20) @ [facility] with appy at same time History of vascular access device removed [place] teeth removed Family History Mother Scleroderma Lupus Family history of reaction to anesthesia nausea Father Coronary heart disease Heart disease Brother Fatty liver Aunt Cancer unspecified Grandfather (Paternal) Heart disease Grandfather (Maternal) Lung disease Grandmother (Paternal) Stroke Grandmother (Maternal) Family history of diabetes mellitus Social History Smoking Status: Never smoker Tobacco Type: Cigarettes Cigarettes Per Day: couple cigs on weekends in ; Second Hand Exposure: No; Do You Dip or Chew Tobacco: No; Tobacco Cessation Education Requested by Patient: No Hx Alcohol Use: No Hx Substance Use: No Preferred Language: Arabic Communication Ability: Effective Visual Impairment: No Limitations Lens Mold Setter Required: No Beliefs That Will Affect Care: None marital status: Current Living Situation: Alone Current Living Situation Comment: Lives alone in apartment current occupational status: retired How many Children do You have: 0 Other Information That Helps Us Care for You: No Feels Safe at Home: Yes Safety Concerns: Feels Safe At This Time during the past year weight has: remained stable Assistive Devices: Glasses, Oxygen - at Night and Walker Review of Systems Review of Systems: As per HPI, all other systems reviewed and negative Physical Exam Physical Exam: GENERAL: Slightly uncomfortable, obese, no respiratory distress SKIN: pale, warm HEENT: pale palpebral conjunctivae, no ptosis, moist buccal mucosa, nasal cannula in place NECK : Supple, short neck, no tenderness CHEST : Decreased breath sounds, no tenderness HEART : RRR, no obvious murmurs ABDOMEN: Some distention, no tenderness EXTREMITIES : Bilateral LE swelling, right knee tenderness NEUROLOGIC : Coherent, no facial asymmetry, no other gross focality Results & Data Results & Data Vital Signs (Past 12 Hours) Vital Signs Temp Pulse Resp BP Pulse Ox O2 Del Method O2 Flow Rate 02/28/23 00:30 63 20 136/63 97 02/27/23 23:00 64 98 Nasal Cannula 4 02/27/23 22:00 65 18 162/83 H 96 Nasal Cannula 4 02/27/23 21:00 72 18 145/80 H 02/27/23 20:32 72 17 152/82 H 94 Nasal Cannula 4 02/27/23 19:26 94 Nasal Cannula 4 02/27/23 18:53 36.8 C 69 12 155/119 H 75 L Room Air Laboratory Results Laboratory Results WBC 7.94 K/ul (4.8-10.8) 02/27/23 20:53 RBC 3.15 M/uL (4.20-5.40) L 02/27/23 20:53 Hgb 8.9 g/dl (12.0-16.0) L 02/27/23 20:53 Hct 28.7 % (37.0-47.0) L 02/27/23 20:53 MCV 91.1 fL (80.0-100.0) 02/27/23 20:53 MCH 28.3 pg (25.0-34.0) 02/27/23 20:53 MCHC 31.0 g/dL (32.0-36.0) L 02/27/23 20:53 RDW Std Deviation 77.1 fL (36.4-46.3) H 02/27/23 20:53 RDW Coeff of Patrica 22.8 % (11.5-14.5) H 02/27/23 20:53 Plt Count 202 K/uL (130-400) 02/27/23 20:53 MPV 10.7 fL (9.4-12.4) 02/27/23 20:53 Immature Gran % (Auto) 2.8 % 02/27/23 20:53 Neut % (Auto) 80.0 % 02/27/23 20:53 Lymph % (Auto) 10.5 % 02/27/23 20:53 Rankin % (Auto) 5.4 % 02/27/23 20:53 Eos % (Auto) 0.9 % 02/27/23 20:53 Baso % (Auto) 0.4 % 02/27/23 20:53 Neut # (Auto) 6.36 K/uL (1.40-6.50) 02/27/23 20:53 Lymph # (Auto) 0.83 K/uL (1.2-3.4) L 02/27/23 20:53 Rankin # (Auto) 0.43 K/uL (0.11-0.59) 02/27/23 20:53 Eos # (Auto) 0.07 K/uL (0-0.50) 02/27/23 20:53 Baso # (Auto) 0.03 K/uL (0-0.2) 02/27/23 20:53 Immature Gran # (Auto) 0.22 K/uL (0.01-0.20) H 02/27/23 20:53 Absolute Nucleated RBC 0.03 K/uL (0-0.12) 02/27/23 20:53 Nucleated RBC % (auto) 0.4 % 02/27/23 20:53 Anisocytosis Present 02/27/23 20:53 Tear Drop Cells 1+ 02/27/23 20:53 APTT 27.4 Seconds (21.0-31.0) 02/27/23 23:06 PTT Ratio 1.0 02/27/23 23:06 ABG pH 7.32 (7.35-7.45) L 02/27/23 23:06 ABG pCO2 53 mmHg (35-46) H 02/27/23 23:06 ABG pO2 97 mmHg (80-95) H 02/27/23 23:06 ABG HCO3 27 mmol/L (19-24) H 02/27/23 23:06 ABG O2 Saturation 97.3 % (90-95) H 02/27/23 23:06 ABG Base Excess 0.3 mEq/L (-9-1.8) 04/21/23 23:06 Nitin Test POS (Pos) 02/27/23 23:06 Oxygen Given 4L O2 02/27/23 23:06 Sodium 138 mmol/L (136-145) 02/27/23 20:53 Potassium 4.2 mmol/L (3.5-5.1) 02/27/23 20:53 Chloride 106 mmol/L (98-107) 02/27/23 20:53 Carbon Dioxide 27 mmol/L (21-32) 02/27/23 20:53 Anion Gap 5 (3-11) 02/27/23 20:53 BUN 22 mg/dl (6-23) 02/27/23 20:53 Creatinine 0.76 mg/dl (0.6-1.2) 02/27/23 20:53 Est Cr Clr Drug Dosing 88.5 ml/min 02/27/23 20:53 Est GFR ( Amer) 92.8 ml/min 02/27/23 20:53 Est GFR (Non-Af Amer) 80.0 ml/min 02/27/23 20:53 BUN/Creatinine Ratio 28.9 (10-20) H 02/27/23 20:53 Glucose 130 mg/dl (70-99(Fasting)) H 02/27/23 20:53 Calcium 8.7 mg/dl (8.6-10.3) 02/27/23 20:53 Magnesium 1.6 mg/dl (1.7-2.4) L 02/27/23 20:53 Total Bilirubin 0.7 mg/dl (0.2-1.0) 02/27/23 20:53 AST 39 U/L (13-39) 02/27/23 20:53 ALT 29 U/L (7-52) 02/27/23 20:53 Alkaline Phosphatase 132 U/L (34-104) H 02/27/23 20:53 Total Protein 6.5 gm/dl (6.0-8.3) 02/27/23 20:53 Albumin 3.5 gm/dl (3.4-5.0) 02/27/23 20:53 Globulin 3.0 gm/dl (2.5-4.0) 02/27/23 20:53 Albumin/Globulin Ratio 1.2 (0.9-2) 02/27/23 20:53 SARS-CoV-2, RNA, NAAT NEGATIVE (NEGATIVE) 02/27/23 20:57 Impressions Ankle X-Ray 02/27/23 19:25 RIGHT ANKLE 3 VIEWS CLINICAL HISTORY: Fall. Right leg injury. FINDINGS: 3 views of the right ankle are obtained. No prior studies are available for comparison at the time of dictation. The skeletal structures are osteopenic. No fracture is seen. The ankle mortise is intact. There are large dorsal and plantar calcaneal enthesophytes. Degenerative spurring is seen along the dorsal aspect of the tarsal bones. No joint effusion is identified. Soft tissue calcifications are seen at the attachment of the Achilles tendon. Mild soft tissue edema is present in the calf. IMPRESSION: Mild soft tissue swelling with no fracture identified at the ankle joint. Electronically signed by: Freddie Mae M.D. 02/27/2023 8:44 PM Femur X-Ray 02/27/23 19:25 RIGHT FEMUR 3 VIEWS CLINICAL HISTORY: Fall. Right leg injury. FINDINGS: AP, crosstable lateral, and frog-leg views of the right femur are obtained. No prior studies are available for comparison at the time of dictation. The skeletal structures are osteopenic. There is a comminuted fracture of the distal femoral metadiaphysis with minimally displaced fragments. Overlying soft tissue edema is noted. The proximal right femur appears intact. Degenerative change is noted in the hip and knee joints. The visualized right hemipelvis appears intact. IMPRESSION: Distal femoral metadiaphyseal fracture as above. Electronically signed by: Freddie Mae M.D. 02/27/2023 8:48 PM Foot X-Ray 02/27/23 19:25 RIGHT FOOT 3 VIEWS CLINICAL HISTORY: Fall. Right leg injury. FINDINGS: 3 views of the right foot are obtained. No prior studies are available for comparison at the time of dictation. The skeletal structures are osteopenic. No fracture is seen. Mild degenerative change is seen throughout the foot. There are large dorsal and plantar calcaneal enthesophytes. There is calcification at the attachment of Achilles tendon. Soft tissue swelling is noted in the foot. IMPRESSION: 1. Soft tissue swelling with no radiographic evidence of acute fracture. 2. Osteopenia, degenerative change, and heel spurs as above. Electronically signed by: Freddie Mae M.D. 02/27/2023 8:46 PM Knee X-Ray 02/27/23 19:25 RIGHT KNEE 2 VIEWS; RIGHT TIBIA AND FIBULA 2 VIEWS CLINICAL HISTORY: Fall. Right leg injury. FINDINGS: Crosstable AP and lateral views of the right knee with crosstable AP and lateral views of the right tibia and fibula are obtained. No prior studies are available for comparison at the time of dictation. The skeletal structures are osteopenic. There is a comminuted fracture of the distal femoral metadiaphysis. There is minimal displacement of fragments and overlying soft ti ssue edema. No additional fracture is seen at the knee joint. There is no radiographic evidence of right tibial or fibular fracture. There is advanced tricompartmental degenerative joint space narrowing of the right knee. There are large marginal osteophytes and patellar enthesophytes. Bony overgrowth is seen around the the joint. There is a knee joint effusion. The ankle mortise appears intact. There are large dorsal and plantar calcaneal enthesophytes. Calcification is seen at the attachment of the Achilles tendon. Mild soft tissue swelling is noted in the right calf. IMPRESSION: 1. Comminuted fracture of the distal right femoral metadiaphysis as above. 2. No additional fracture seen at the right knee joint. 3. There is no radiographic evidence of right tibial or fibular fracture. 4. Osteopenia and degenerative change as above. Electronically signed by: Freddie Mae M.D. 02/27/2023 8:24 PM Pelvis X-Ray 02/27/23 19:25 SINGLE VIEW PELVIS CLINICAL HISTORY: Fall. Right leg pain. FINDINGS: An AP view of the pelvis is correlated with pelvic CT dated 01/16/2023. The skeletal structures are osteopenic. There is no radiographic evidence of acute fracture involving the hips or bony pelvis. Degenerative sclerosis is noted in the sacroiliac joints. Mild arthritic change and joint space narrowing is seen in the hips. Enthesophytes arise from the anterior superior iliac spines. Lumbosacral spondylosis is partially imaged. The overlying soft tissues are within normal limits. Numerous phleboliths are seen in the pelvis. IMPRESSION: No acute bony abnormality is identified. Electronically signed by: Freddie Mae M.D. 02/27/2023 8:43 PM Tibia/Fibula X-Ray 02/27/23 19:25 RIGHT KNEE 2 VIEWS; RIGHT TIBIA AND FIBULA 2 VIEWS CLINICAL HISTORY: Fall. Right leg injury. FINDINGS: Crosstable AP and lateral views of the right knee with crosstable AP and lateral views of the right tibia and fibula are obtained. No prior studies are available for comparison at the time of dictation. The skeletal structures are osteopenic. There is a comminuted fracture of the distal femoral metadiaphysis. There is minimal displacement of fragments and overlying soft tissue edema. No additional fracture is seen at the knee joint. There is no radiographic evidence of right tibial or fibular fracture. There is advanced tricompartmental degenerative joint space narrowing of the right knee. There are large marginal osteophytes and patellar enthesophytes. Bony overgrowth is seen around the the joint. There is a knee joint effusion. The ankle mortise appears intact. There are large dorsal and plantar calcaneal enthesophytes. Calcification is seen at the attachment of the Achilles tendon. Mild soft tissue swelling is noted in the right calf. IMPRESSION: 1. Comminuted fracture of the distal right femoral metadiaphysis as above. 2. No additional fracture seen at the right knee joint. 3. There is no radiographic evidence of right tibial or fibular fracture. 4. Osteopenia and degenerative change as above. Electronically signed by: Freddie Mae M.D. 02/27/2023 8:[address] 02/27/23 19:26 Exam(s): CT C SPINE EXAM: CT Cervical Spine Without Intravenous Contrast CLINICAL HISTORY: Reason for exam: Trauma. TECHNIQUE: Axial computed tomography images of the cervical spine without intravenous contrast. CTDI is 21.37 mGy and DLP is 471.77 mGy-cm. Automated exposure control was utilized for the study. A dose lowering technique was utilized adhering to the principles of ALARA. COMPARISON: None. FINDINGS: Vertebrae: Grade 1 anterolisthesis of C4 and C4 on C5. No acute fracture. Discs/spinal canal/neural foramina: Degenerative disc disease and facet arthrosis throughout the cervical spine which yields varying the foraminal narrowing. No high-grade spinal canal stenosis. Soft tissues: Unremarkable. Vasculature: Atherosclerotic calcifications of the carotid bifurcations. IMPRESSION: No acute fracture or traumatic malalignment of the cervical spine. Electronically signed by: Boni Paredes MD 02/27/23 22:[address] 02/27/23 19:26 Exam(s): CT HEAD Without Contrast EXAM: CT Head Without Intravenous Contrast CLINICAL HISTORY: Reason for exam: Trauma. TECHNIQUE: Axial computed tomography images of the head/brain without intravenous contrast. CTDI is 50.48 mGy and DLP is 884.08 mGy-cm. Automated exposure control was utilized for the study. A dose lowering technique was utilized adhering to the principles of ALARA. COMPARISON: None. FINDINGS: Brain: Global parenchymal volume loss with chronic microvascular ischemic changes. No hemorrhage. Ventricles: Unremarkable. No ventriculomegaly. Bones/joints: Unremarkable. No acute fracture. Soft tissues: Unremarkable. Sinuses: Mucosal thickening right sphenoid sinus. Mastoid air cells: Unremarkable as visualized. No mastoid effusion. IMPRESSION: 1. No intracranial hemorrhage or other acute intracranial abnormality. 2. Global parenchymal volume loss with chronic microvascular ischemic changes. Electronically signed by: Boni Paredes MD 02/27/23 21:54 PM Chest X-Ray 02/27/23 19:28 SINGLE VIEW CHEST CLINICAL HISTORY: Hypoxia. Fall. FINDINGS: An AP, portable, semierect chest radiograph is compared to study dated 01/23/2023. Correlation is made with chest CT dated 11/28/2020. The examination is degraded by portable technique and apical lordotic positioning. A 2-lead cardiac pacemaker is unchanged in position. The heart is enlarged. Atherosclerotic calcification of the thoracic aorta. The pulmonary vasculature is noncongested. Chronic interstitial thickening is similar to previous. Foci of parenchymal scarring are again seen throughout both lungs. Scarring/atelectasis is also seen at the lung bases. No airspace consolidation or large pleural effusion is identified. No pneumothorax is seen. The skeletal structures are osteopenic. The bony thorax is grossly intact. IMPRESSION: 1. Cardiomegaly and cardiac pacemaker without radiographic evidence of congestive failure. 2. No airspace consolidation or large pleural effusion is identified. ACT 112: Negative or not required by law. Electronically signed by: Freddie Mae M.D. 02/27/2023 8:[address] 02/27/23 20:12 Exam(s): CT RIGHT KNEE Without Contrast EXAM: CT Right Lower Extremity Without Intravenous Contrast, Knee CLINICAL HISTORY: Reason for exam: periprosthetic frx on XR. TECHNIQUE: Axial computed tomography images of the right knee without intravenous contrast. CTDI is 28.02 mGy and DLP is 709.02 mGy-cm. Automated exposure control was utilized for the study. A dose lowering technique was utilized adhering to the principles of ALARA. COMPARISON: Right knee radiographs 02/27/2023. FINDINGS: Bones/joints: Comminuted intra-articular fracture of the distal femur. Severe tricompartmental osteoarthritis of the right knee. Suprapatellar joint effusion. No dislocation. Soft tissues: Soft tissue swelling about the knee. Vasculature: Atherosclerotic calcifications present. IMPRESSION: 1. Comminuted intra-articular fracture of the distal femur. 2. Severe tricompartmental osteoarthritis of the right knee. Electronically signed by: Boni Paredes MD 02/27/23 22:21 PM Diagnostic Findings EKG as per my interpretation : Rate 65, NSR, normal axis, no ischemia
[2023-02-28] MEDS ORDERED: HYDROmorphone INJ 0.5 MG/0.5 ML SYR IV PRN (01:04)
[2023-02-28] MEDS ORDERED: LIDOCAINE 5% 1 PATCH TD ONE (01:30)
[2023-02-28 01:40] LABS: HCO3 ABG 30 mmol/L (19-24); PCO2 ABG 63 mmHg (35-46); PO2 ABG 43 mmHg (80-95); pH ABG 7.29 (7.35-7.45)
[2023-02-28 01:41] LABS: Allen Test Pos (Pos); Oxygen Saturation ABG 73.4 % (90-95)
[2023-02-28] MEDS: MAGNESIUM SULFATE / D5W 1 GM/100 ML BAG IV SCH ×2 (02:36→04:40)
[2023-02-28] MEDS ORDERED: XOPENEX/ATROVENT 1.25mg/0.5MG NEB COMBO NEB PRN (03:19)
[2023-02-28] MEDS ORDERED: LORazepam 0.5 MG TAB PO PRN (03:19)
[2023-02-28] MEDS ORDERED: LEVALBUTEROL 1.25MG/0.5ML NEB INH PRN (03:19)
[2023-02-28] MEDS ORDERED: IPRATROPIUM BROMIDE NEB SOLN 0.02% 2.5 ML VIAL INH PRN (03:19)
[2023-02-28] MEDS ORDERED: CYCLOBENZAPRINE HCL 5 MG TAB PO PRN (03:19)
[2023-02-28] MEDS: HYDROmorphone INJ 0.5 MG/0.5 ML SYR IV PRN ×2 (05:23→14:06)
[2023-02-28 06:32] LABS: Basophils # (auto) 0.02 K/uL (0-0.2); Basophils % (auto) 0.3 %; Eosinophils # (auto) 0.11 K/uL (0-0.50); Eosinophils % (auto) 1.7 %; Hematocrit (blood only) 28.7 % (37.0-47.0); Hemoglobin 8.8 g/dl (12.0-16.0); Immature Granulocytes # (auto) 0.15 K/uL (0.01-0.20); Immature Granulocytes % (auto) 2.3 %; Lymphocytes # (auto) 0.78 K/uL (1.2-3.4); Lymphocytes % (auto) 11.8 %; Mean Corpuscular Hemoglobin 27.8 pg (25.0-34.0); Mean Corpuscular Hgb Conc 30.7 g/dL (32.0-36.0); Mean Corpuscular Volume 90.8 fL (80.0-100.0); Mean Platelet Volume 9.6 fL (9.4-12.4); Monocytes # (auto) 0.45 K/uL (0.11-0.59); Monocytes % (auto) 6.8 %; Neutrophils # (auto) 5.08 K/uL (1.40-6.50); Neutrophils % (auto) 77.1 %; Nucleated RBC # (auto) 0.04 K/uL (0-0.12); Nucleated RBC % (auto) 0.6 %; Platelet Count 179 K/uL (130-400); RDW Coefficient of Variation 22.5 % (11.5-14.5); Red Blood Count 3.16 M/uL (4.20-5.40); White Blood Count 6.59 K/ul (4.8-10.8)
[2023-02-28 07:04] LABS: BUN Creatinine Ratio 23.9 (10-20); Calcium 8.7 mg/dl (8.6-10.3); Creatinine Clr Calc Pharmacy 76.3 ml/min; Est GFR (African American) 77.7 ml/min; Magnesium 2.2 mg/dl (1.7-2.4); Potassium 4.6 mmol/L (3.5-5.1)
[2023-02-28 07:13] LABS: Anisocytosis Present; Polychromasia 1+; Tear Drop Cells 1+
--- NOTE | 2023-02-28 08:10 | Orthopedic Consultation ---
Date of Consultation February 28, 2023 Assessment & Plan (1) Supracondylar fracture of right femur: She has a significantly comminuted distal femur fracture with very distal comminuted fracture line just above the articular surface in the setting of severe tricompartmental knee arthritis. With this very distal comminuted fracture line, it does not appear that this fracture pattern would be amenable to plate fixation. In the setting of very severe knee arthritis, she may require something like a distal femoral replacement total knee arthroplasty. This is well out of my scope of practice. She is also a very poor high risk surgical candidate with respiratory failure, chronic anemia, cirrhosis, kidney disease, morbid obesity, etc. and would likely require an intensive care unit stay after such a large surgery. I would therefore recommend transfer to a tertiary care facility for further management of this injury. She is already established in the [facility] system, who recently did her left total knee arthroplasty earlier this year. It would therefore be logical to transfer her to [facility] in [place]. In the meantime, I would recommend knee immobilizer and nonweightbearing on this right leg. History of Present Illness Reason for Consultation: Right knee injury Attending Physician: Jose Eduardo Ribeiro MD History of Present Illness Ms. Bah is a 67-year-old morbidly obese female with numerous severe medical problems including respiratory failure, interstitial lung disease, pulmonary hypertension, chronic anemia on Retacrit injections, atrial fibrillation, chronic kidney disease, bradycardia treated with a pacemaker, NAFLD liver cirrhosis, and ovarian cancer unable to undergo chemotherapy after surgical t reatment due to allergies and worsening anemia. She states she has had problems with right leg sciatica for quite some time. She is walking through her house today and got a severe jolt of pain down her right leg from the sciatic, and this caused her to fall and injure her right knee. She thinks her right leg got bent underneath her. She had immediate pain and inability to bear weight on her right leg. She was brought to the emergency room for further evaluation. Oxygen saturations were noted to be 75% on room air upon admission. Allergies Allergy/AdvReac Type Severity Reaction Status Date / Time levofloxacin Allergy Intermediate LE Verified 02/27/23 21:16 swelling and blistering paclitaxel [From Taxol] Allergy Intermediate facial Verified 02/27/23 21:16 flushing, bradycardia tramadol Allergy Intermediate Rash Verified 02/27/23 21:16 doxorubicin AdvReac Severe Hypoxia Verified 02/27/23 21:16 clindamycin AdvReac Intermediate PT Verified 02/27/23 21:16 CONTRACTED C-DIFF shellfish derived AdvReac Intermediate NAUSEA,DIARRHEA, Verified 02/27/23 21:16 VOMITING adhesive AdvReac Mild SKIN Verified 02/27/23 21:16 BLISTERS SOME TIMES Home Medications Medication Instructions Recorded Confirmed Type lorazepam 0.5 mg tablet 0.5 mg PO Q8H PRN Anxiety 10/18/18 02/27/23 History sertraline 100 mg tablet (Zoloft) 100 mg PO QAM 10/18/18 02/27/23 History cyclobenzaprine 5 mg tablet 5 mg PO BID PRN Muscle Spasm 08/25/19 02/27/23 History omeprazole 20 mg capsule,delayed 20 mg PO BID 04/12/20 02/27/23 History release folic acid 1 mg tablet 1 mg PO QAM 05/08/20 02/27/23 History fosfomycin tromethamine 3 gram 3 g PO WK 10/01/20 02/27/23 History oral packet (Monurol) sotalol 80 mg tablet 80 mg PO BID 10/01/20 02/27/23 History cholecalciferol (vitamin D3) 50 2,000 unit PO QAM #90 tabs 04/09/21 02/27/23 Rx mcg (2,000 unit) tablet loratadine 10 mg tablet (Claritin) 10 mg PO QAM 09/18/22 02/27/23 History Portable Oxygen #1 ea 01/23/23 01/16/23 Rx potassium chloride 20 mEq 20 meq PO QAM #30 tabs 01/23/23 02/27/23 Rx tablet,extended release(part/cryst) acetaminophen 325 mg tablet 325 mg PO DIRECTED PRN 02/27/23 02/27/23 History (Tylenol) PAIN/FEVER albuterol sulfate 90 mcg/actuation 2 puff inhalation Q4H PRN Wheezing 02/27/23 02/27/23 History aerosol inhaler docusate sodium 100 mg capsule 100 mg PO BID 02/27/23 02/27/23 History (Stool Softener) fluoride (sodium) 1.1 % dental 1 applic dental BID 02/27/23 02/27/23 History cream (SF 5000 Plus) furosemide 40 mg tablet 40 mg PO QAM 02/27/23 02/27/23 History hydroxyzine HCl 25 mg tablet 25 mg PO HS PRN Itching 02/27/23 02/27/23 History Patient History Medical History Anemia hx blood transfusions Hgb baseline 8-9 Anxiety and depression Atrial fibrillation No AC due to GI bleed and anemia Chronic hypoxemic respiratory failure Chronic right-sided HF (heart failure) Likely per cardio secondary to obesity hypo ventilatory syndrome/Pickwickian CKD (chronic kidney disease), stage [address] 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 WELSH). last check 3 weeks ago Restless leg syndrome Sick sinus syndrome Spinal stenosis HX Surgical History H/O arthroscopy of knee H/O cystoscopy H/O gastric bypass "1980, reversed in same year" History of appendectomy (~09/07/20) History of arthroscopy LEFT KNEE History of colonoscopy History of ERCP (~09/2020) History of esophagogastroduodenoscopy (EGD) History of herniorrhaphy VENTRAL HERNIA REPAIR= 04/27/17= GRADE VIEW 2, CLEMENTE#2, ETT 7.0 AT [facility] History of lithotripsy History of tonsillectomy History of total hysterectomy with bilateral salpingo-oophorectomy (BSO) (~09/07/20) [place] [facility] [place] History of vascular access device removed [place] teeth removed Family History Mother Scleroderma Lupus Family history of reaction to anesthesia nausea Father Coronary heart disease Heart disease Brother Fatty liver Aunt Cancer unspecified Grandfather (Paternal) Heart disease Grandfather (Maternal) Lung disease Grandmother (Paternal) Stroke Grandmother (Maternal) Family history of diabetes mellitus Social History Smoking Status: Never smoker Tobacco Type: Cigarettes Cigarettes Per Day: couple cigs on weekends in ; Second Hand Exposure: No; Do You Dip or Chew Tobacco: No; Tobacco Cessation Education Requested by Patient: No Hx Alcohol Use: No Hx Substance Use: No Preferred Language: French Communication Ability: Effective Visual Impairment: No Limitations Brush Polisher Required: No Beliefs That Will Affect Care: None marital status: Current Living Situation: Alone Current Living Situation Comment: Lives alone in apartment current occupational status: retired How many Children do You have: 0 Other Information That Helps Us Care for You: No Feels Safe at Home: Yes Safety Concerns: Feels Safe At This Time during the past year weight has: remained stable Assistive Devices: Glasses, Oxygen - at Night and Walker Physical Exam Physical Exam: She is resting comfortably in bed in no apparent distress and conversing with her family. Examination of the right leg reveals no open wounds. Moderate swelling around the knee. She is unable to move her knee due to pain. Motor and sensory function is intact distally. Foot is warm and well-perfused. Compartments are soft and compressible. Results & Data Vital Signs (Past 12 Hours) Vital Signs Temp Pulse Pulse Resp BP BP BP 02/28/23 07:22 36.4 C L 62 18 149/81 H 02/28/23 03:50 02/28/23 03:19 36.8 C 65 18 154/77 H 02/28/23 03:19 02/28/23 02:30 63 18 152/59 H 02/28/23 01:30 64 20 150/89 H 02/28/23 01:12 02/28/23 00:30 63 20 136/63 02/27/23 23:00 64 02/27/23 22:00 65 18 162/83 H 02/27/23 21:00 72 18 145/80 H 02/27/23 20:32 72 17 152/82 H Pulse Ox Pulse Ox O2 Del Method O2 Del Method O2 Flow Rate O2 Flow Rate 02/28/23 07:22 95 Nasal Cannula 4 02/28/23 03:50 Nasal Cannula 4 02/28/23 03:19 92 Nasal Cannula 4 02/28/23 03:19 92 Nasal Cannula 4 02/28/23 02:30 93 02/28/23 01:30 90 02/28/23 01:12 94 Nasal Cannula 2 02/28/23 00:30 97 02/27/23 23:00 98 Nasal Cannula 4 02/27/23 22:00 96 Nasal Cannula 4 02/27/23 21:00 02/27/23 20:32 94 Nasal Cannula 4 Laboratory Results H&H - 8.8/28.7 Diagnostic Findings Right knee x-rays and CT scan were reviewed. They show a comminuted supracondylar distal femur fracture in the setting of severe end-stage tricompartmental knee arthritis. Bone is obviously osteoporotic. The transverse fracture line is very distal, just above the intercondylar notch, with significant comminution in this area although relatively mild displacement. (1) Supracondylar fracture of right femur Encounter type: initial encounter Fracture type: closed Qualified Code(s): S72.451A - Displaced supracondylar fracture without intracondylar extension of lower end of right femur, initial encounter for closed fracture
[2023-02-28] MEDS ORDERED: SERTRALINE HCL 100 MG TABLET PO SCH (09:00)
[2023-02-28] MEDS ORDERED: PANTOprazole 40 MG TAB PO SCH (09:00)
[2023-02-28] MEDS ORDERED: LORATADINE 10 MG TAB PO SCH (09:00)
[2023-02-28] MEDS ORDERED: SOTALOL HCL 80 MG TAB PO SCH (09:00)
[2023-02-28] MEDS ORDERED: DOCUSATE SODIUM 100 MG CAP PO SCH (09:00)
[2023-02-28] MEDS ORDERED: FOLIC ACID 1 MG TAB PO SCH (09:00)
--- NOTE | 2023-02-28 12:02 | Hospitalist Progress Note ---
Date of Service February 28, 2023 Assessment & Plan (1) Respiratory failure with hypercapnia: Plan: Right femur fracture, comminuted Evaluated by orthopedic service, Dr. Donahue Recommending distal femoral replacement total knee arthroplasty in tertiary care facility Discussed with orthopedic surgeon at [facility], Dr. Lofton-who accepted the patient Awaiting callback from [facility]/trauma department for acceptance to their service Patient moderate to high risk for cardiopulmonary complications perioperatively given comorbidities Continue pain control Wean of oxygen accordingly Status post pacemaker check December 2022-normal device function Acute on chronic hx chronic respiratory failure secondary to pulmonary hypertension secondary to ILD, likely OHS, hx BERRY (CPAP intolerance)/nocturnal hypoxemia on home O2 Hypoxemia possibly secondary to hypoventilation post IV narcotic administration for traumatic right femoral fracture en route to the ER. -- Chest x-ray: No acute process noted --Patient normally uses oxygen 2 L at bedtime, uses 2 to 3 L as needed during the daytime with ambulation --No respiratory symptoms at this point, wean of oxygen accordingly SSS sp PPM not on anticoagulation secondary to GI bleed, hypertension NAFLD cirrhosis, no overt decompensation hx GERD, history esophageal varices ovarian cancer status post surgery/incomplete chemotherapy hx recurrent ESBL E. coli UTI on Fosfomycin suppression Rx/history urolithiasis CRI creatinine at baseline prediabetes, hemoglobin A1c of 5.17 December 2022 chronic anemia, hemoglobin at baseline chronic thrombocytopenia secondary to liver disease, platelets currently within normal limits past tobacco abuse DVT prophylaxis. SCDs Re: Possible procedure, history thrombocytopenia DNR plan of care discussed with patient in detail and at length all questions answered she is understanding, agreeable, comfortable with the plan of care Admission and Anticipated Discharge Date Admission Date: February 28, 2023 Subjective Follow-up for right femur fracture, etc. Patient seen resting in bed, sitting up, not in distress, on 4 L of oxygen States that she feels fine overall, pain well managed Denies shortness of breath, cough, sputum production, fevers or chills Denies chest pain, palpitations, dizziness Has had ongoing low back pain with sciatica pain on the right side for about a week now leading to her fall according to the patient No other symptoms Review of Systems Review of Systems: all noted and negative except for above Physical Exam Physical Exam: General- oriented x 3, not in distress, speaks in sentences with no effort or accessory muscle use Head- atraumatic Eyes- PERRL, EOMI, anicteric ENT- oropharynx clear Neck- supple, no JVD, no adenopathy, no thyromegaly; carotids +2/2, no bruits appreciated Lungs- clear to auscultation bilaterally, no rales/wheezes Heart- normal rate, regular rhythm; no murmur, no gallop, no rub appreciated Abdomen- normal bowel sounds, nondistended, soft, nontender, no masses or hepatosplenomegaly Extremities-positive mild edema of the right lower extremity, no erythema/war mth/tenderness, positive mild hematoma on the right foot Neuro- alert, oriented x 3; CN 2-12 grossly intact; motor 5/5 bilaterally;sensation 100% on all extremities; no other gross focal neurologic d eficits Skin- warm & dry Results & Data Results & Data Vital Signs (Past 12 Hours) Vital Signs Temp Pulse Pulse Resp BP BP BP 02/28/23 11:30 36.6 C 60 18 111/48 L 02/28/23 10:38 61 02/28/23 07:22 36.4 C L 62 18 149/81 H 02/28/23 03:50 02/28/23 03:19 36.8 C 65 18 154/77 H 02/28/23 03:19 02/28/23 02:30 63 18 152/59 H 02/28/23 01:30 64 20 150/89 H 02/28/23 01:12 02/28/23 00:30 63 20 136/63 Pulse Ox Pulse Ox O2 Del Method O2 Del Method O2 Flow Rate O2 Flow Rate 02/28/23 11:30 97 Nasal Cannula 4 02/28/23 10:38 02/28/23 07:22 95 Nasal Cannula 4 02/28/23 03:50 Nasal Cannula 4 02/28/23 03:19 92 Nasal Cannula 4 02/28/23 03:19 92 Nasal Cannula 4 02/28/23 02:30 93 02/28/23 01:30 90 02/28/23 01:12 94 Nasal Cannula 2 02/28/23 00:30 97 all noted and reviewed including below
--- NOTE | 2023-02-28 12:33 | Discharge Summary ---
Discharge Summary Date of Service February 28, 2023 Notes For Next Care Provider Medication Changes From Visit None Admission HPI Per Admitting Provider History obtained from patient, family, and records. Medical history significant for SSS sp PPM not on anticoagulation secondary to GI bleed, hypertension, chronic respiratory failure secondary to pulmonary hypertension secondary to ILD, hx BERRY (CPAP intolerance)/nocturnal hypoxemia on home O2, NAFLD cirrhosis, cholelithiasis, GERD, history esophageal varices, ovarian cancer status post surgery/incomplete chemotherapy, recurrent ESBL E. coli UTI on Fosfomycin suppression Rx, history urolithiasis, history of C. difficile secondary to clindamycin, CRI (baseline creatinine 1.1), prediabetes, chronic anemia (baseline hemoglobin of 8), chronic thrombocytopenia, hx left knee surgery ([facility], December 2022), past tobacco abuse. Recent [facility] confinement last month for sepsis secondary to postop pneumonia following elective left robotic assisted total knee arthroplasty at [facility]. Obstructive jaundice also noted during confinement attributed to choledocholithiasis status post ERCP and stent placement. Last week, patient noted low back pain symptoms more on the right which he attributed to sciatica from intense outpatient physical therapy. No leg weakness/numbness, fever, chills, incontinence symptoms. Pain worse on motion. Patient had worsening right-sided back pain causing her to fall down yesterday afternoon. Excruciating right leg pain. Some head trauma without LOC. No unusual chest pain, SOB. Patient received Fentanyl from EMS on route to the hospital. O2 sat 70s upon arrival at the ER. 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 Hypoxemia possibly secondary to hypoventilation post IV narcotic administration for traumatic right femoral fracture en route to the ER. SSS sp PPM not on anticoagulation secondary to GI bleed, hypertension NAFLD cirrhosis, no overt decompensation hx GERD, history esophageal varices ovarian cancer status post surgery/incomplete chemotherapy hx recurrent ESBL E. coli UTI on Fosfomycin suppression Rx/history urolithiasis CRI creatinine at baseline prediabetes, hemoglobin A1c of 5.17 December 2022 chronic anemia, hemoglobin at baseline chronic thrombocytopenia secondary to liver disease, platelets currently within normal limits past tobacco abuse Medical telemetry Supplemental O2 Patient adamantly refusing BiPAP. Recheck ABG Analgesia, hold parameters for narcotics for sedation confusion Orthopedics consult Re: Traumatic right femoral fracture Pulmonary consult Re: Respiratory failure, preop eval N.p.o. until patient seen by orthopedics in anticipation of procedure. DVT prophylaxis. SCDs Re: Possible procedure, history thrombocytopenia DNR Patient requests for her brother to be given updates by providers. Mr. Jefry Bah, contact #[phone]. Principal Dx & Hospital Course #1 = Principal Diagnosis (1) Supracondylar fracture of right femur: RIGHT FEMUR FRACTURE, COMMINUTED STATUS POST MECHANICAL FALL Evaluated by orthopedic service, Dr. Donahue Recommending distal femoral replacement total knee arthroplasty in tertiary care facility Discussed with orthopedic surgeon at [facility], Dr. Lofton-who accepted the patient Awaiting callback from [facility] hospitalist/trauma department for acceptance to their service Patient moderate to high risk for cardiopulmonary complications perioperatively given comorbidities Continue pain control Wean of oxygen accordingly Status post pacemaker check December 2022-normal device function Pain control DVT prophylaxis RIGHT-SIDED SCIATICA PAIN Will need lumbar spine MRI for further evaluation ACUTE ON CHRONIC HX CHRONIC RESPIRATORY FAILURE secondary to pulmonary hypertension secondary to ILD, likely OHS, hx BERRY (CPAP intolerance)/nocturnal hypoxemia on home O2 Hypoxemia possibly secondary to hypoventilation post IV narcotic administration for traumatic right femoral fracture en route to the ER. -- Chest x-ray: No acute process noted --Patient normally uses oxygen 2 L at bedtime, uses 2 to 3 L as needed during the daytime with ambulation --No respiratory symptoms at this point, wean of oxygen accordingly SSS sp PPM not on anticoagulation secondary to GI bleed, hypertension -- Status post pacemaker check December 2022-normal device function NAFLD cirrhosis, no overt decompensation hx GERD, history esophageal varices ovarian cancer status post surgery/incomplete chemotherapy hx recurrent ESBL E. coli UTI on Fosfomycin suppression Rx/history urolithiasis CRI creatinine at baseline prediabetes, hemoglobin A1c of 5.17 December 2022 chronic anemia, hemoglobin at baseline chronic thrombocytopenia secondary to liver disease, platelets currently within normal limits past tobacco abuse DVT prophylaxis. SCDs Re: Possible procedure, history thrombocytopenia DNR plan of care discussed with patient in detail and at length all questions answered she is understanding, agreeable, comfortable with the plan of care Discharge Exam General- oriented x 3, not in distress, speaks in sentences with no effort or accessory muscle use Head- atraumatic Eyes- PERRL, EOMI, anicteric ENT- oropharynx clear Neck- supple, no JVD, no adenopathy, no thyromegaly; carotids +2/2, no bruits appreciated Lungs- clear to auscultation bilaterally, no rales/wheezes Heart- normal rate, regular rhythm; no murmur, no gallop, no rub appreciated Abdomen- normal bowel sounds, nondistended, soft, nontender, no masses or hepatosplenomegaly Extremities-positive mild edema of the right lower extremity, no erythema/warmth/tenderness, positive mild hematoma on the right foot Neuro- alert, oriented x 3; CN 2-12 grossly intact; motor 5/5 bilaterally;sensation 100% on all extremities; no other gross focal neurologic deficits Skin- warm & dry Updated Medication List Medication Instructions Recorded Confirmed Type lorazepam 0.5 mg tablet 0.5 mg PO Q8H PRN Anxiety 10/18/18 02/27/23 History sertraline 100 mg tablet (Zoloft) 100 mg PO QAM 10/18/18 02/27/23 History cyclobenzaprine 5 mg tablet 5 mg PO BID PRN Muscle Spasm 08/25/19 02/27/23 History omeprazole 20 mg capsule,delayed 20 mg PO BID 04/12/20 02/27/23 History release folic acid 1 mg tablet 1 mg PO QAM 05/08/20 02/27/23 History fosfomycin tromethamine 3 gram 3 g PO WK 10/01/20 02/27/23 History oral packet (Monurol) sotalol 80 mg tablet 80 mg PO BID 10/01/20 02/27/23 History cholecalciferol (vitamin D3) 50 2,000 unit PO QAM #90 tabs 04/09/21 02/27/23 Rx mcg (2,000 unit) tablet loratadine 10 mg tablet (Claritin) 10 mg PO QAM 09/18/22 02/27/23 History Portable Oxygen #1 ea 01/23/23 01/16/23 Rx potassium chloride 20 mEq 20 meq PO QAM #30 tabs 01/23/23 02/27/23 Rx tablet,extended release(part/cryst) acetaminophen 325 mg tablet 325 mg PO DIRECTED PRN 02/27/23 02/27/23 History (Tylenol) PAIN/FEVER albuterol sulfate 90 mcg/actuation 2 puff inhalation Q4H PRN Wheezing 02/27/23 02/27/23 History aerosol inhaler docusate sodium 100 mg capsule 100 mg PO BID 02/27/23 02/27/23 History (Stool Softener) fluoride (sodium) 1.1 % dental 1 applic dental BID 02/27/23 02/27/23 History cream (SF 5000 Plus) furosemide 40 mg tablet 40 mg PO QAM 02/27/23 02/27/23 History hydroxyzine HCl 25 mg tablet 25 mg PO HS PRN Itching 02/27/23 02/27/23 History Hospital Stay Data Consultations 02/27/23 21:44 ED Decision to Admit Stat 02/28/23 03:19 Consult Pulmonology Routine 02/28/23 07:56 Consult Orthopedic Surgery Routine Diagnostic Imagining Performed 02/27/23 19:26 CT cervical spine wo con Stat CT head/brain wo con Stat 02/27/23 20:12 CT knee RT wo con Stat Pending Results Patient Have Any Pending Studies at Discharge: No Discharge Instructions Given to Patient (Per Discharging Provider) Please refer to accompanying hospital discharge summary. Total Time Total Time Spent Total Time Spent (In Minutes): >30 minutes
--- NOTE | 2023-02-28 12:59 | Pulmonary Consultation ---
Date of Consultation February 28, 2023 Assessment & Plan (1) Respiratory failure with hypercapnia: (2) Liver cirrhosis secondary to WEIR: (3) Secondary pulmonary hypertension: (4) Supracondylar fracture of right femur: Encounter type: initial encounter Fracture type: closed Qualified Code(s): S72.451A - Displaced supracondylar fracture without intracondylar extension of lower end of right femur, initial encounter for closed fracture Plan The patient is at high risk for perioperative pulmonary complications given her chronic oxygen demands, secondary pulmonary hypertension and morbid obesity. Recommend maintaining euvolemia. Recommend a lung protective ventilation strategy if general anesthesia is utilized with minimizing sedation. Recommend that she be extubated to BiPAP. Recommend an incentive spirometer. Consider cardiology consult. It appears that she will be transferred to a tertiary care center for consideration of surgery. At this time I have nothing further to add. Thank you for the consultation. Please call questions. History of Present Illness Reason for Consultation: Preoperative clearance Attending Physician: Jose Eduardo Ribeiro MD History of Present Illness 67-year-old female with a history of sick sinus syndrome status post pacemaker placement, pulm hypertension, ovarian cancer, cirrhosis and BERRY who presented to the hospital due to intense sciatica. She was found to have a supracondylar fracture of the right femur. She endorses chronic shortness of breath with minimal activity. She is chronically on 2 to 3 L of oxygen. She is currently requiring 4 L and maintaining saturations in the high 90s. She denies any recent fevers, chills or night sweats. She denies any cough. She was discharged from the hospital last month for multifocal pneumonia and biliary sepsis. Her chest x-ray at this admission reveals pulmonary edema. Allergies Allergy/AdvReac Type Severity Reaction Status Date / Time levofloxacin Allergy Intermediate LE Verified 02/27/23 21:16 swelling and blistering paclitaxel [From Taxol] Allergy Intermediate facial Verified 02/27/23 21:16 flushing, bradycardia tramadol Allergy Intermediate Rash Verified 02/27/23 21:16 doxorubicin AdvReac Severe Hypoxia Verified 02/27/23 21:16 clindamycin AdvReac Intermediate PT Verified 02/27/23 21:16 CONTRACTED C-DIFF shellfish derived AdvReac Intermediate NAUSEA,DIARRHEA, Verified 02/27/23 21:16 VOMITING adhesive AdvReac Mild SKIN Verified 02/27/23 21:16 BLISTERS SOME TIMES Home Medications Medication Instructions Recorded Confirmed Type lorazepam 0.5 mg tablet 0.5 mg PO Q8H PRN Anxiety 10/18/18 02/27/23 History sertraline 100 mg tablet (Zoloft) 100 mg PO QAM 10/18/18 02/27/23 History cyclobenzaprine 5 mg tablet 5 mg PO BID PRN Muscle Spasm 08/25/19 02/27/23 History omeprazole 20 mg capsule,delayed 20 mg PO BID 04/12/20 02/27/23 History release folic acid 1 mg tablet 1 mg PO QAM 05/08/20 02/27/23 History fosfomycin tromethamine 3 gram 3 g PO WK 10/01/20 02/27/23 History oral packet (Monurol) sotalol 80 mg tablet 80 mg PO BID 10/01/20 02/27/23 History cholecalciferol (vitamin D3) 50 2,000 unit PO QAM #90 tabs 04/09/21 02/27/23 Rx mcg (2,000 unit) tablet loratadine 10 mg tablet (Claritin) 10 mg PO QAM 09/18/22 02/27/23 History Portable Oxygen #1 ea 01/23/23 01/16/23 Rx potassium chloride 20 mEq 20 meq PO QAM #30 tabs 01/23/23 02/27/23 Rx tablet,extended release(part/cryst) acetaminophen 325 mg tablet 325 mg PO DIRECTED PRN 02/27/23 02/27/23 History (Tylenol) PAIN/FEVER albuterol sulfate 90 mcg/actuation 2 puff inhalation Q4H PRN Wheezing 02/27/23 02/27/23 History aerosol inhaler docusate sodium 100 mg capsule 100 mg PO BID 02/27/23 02/27/23 History (Stool Softener) fluoride (sodium) 1.1 % dental 1 applic dental BID 02/27/23 02/27/23 History cream (SF 5000 Plus) furosemide 40 mg tablet 40 mg PO QAM 02/27/23 02/27/23 History hydroxyzine HCl 25 mg tablet 25 mg PO HS PRN Itching 02/27/23 02/27/23 History Patient History Medical History (Updated 02/28/23 @ 12:56 by Manuel Cook MD) Anemia hx blood transfusions Hgb baseline 8-9 Anxiety and depression Atrial fibrillation No AC due to GI bleed and anemia Chronic hypoxemic respiratory failure Chronic right-sided HF (heart failure) Likely per cardio secondary to obesity hypo ventilatory syndrome/Pickwickian CKD (chronic kidney disease), stage [address] 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 WELSH). last check 3 weeks ago Restless leg syndrome Secondary pulmonary hypertension Sick sinus syndrome Spinal stenosis HX Surgical History H/O arthroscopy of knee H/O cystoscopy H/O gastric bypass "1980, reversed in same year" History of appendectomy (~09/07/20) History of arthroscopy LEFT KNEE History of colonoscopy History of ERCP (~09/2020) History of esophagogastroduodenoscopy (EGD) History of herniorrhaphy VENTRAL HERNIA REPAIR= 04/27/17= GRADE VIEW 2, CLEMENTE#2, ETT 7.0 AT [facility] History of lithotripsy History of tonsillectomy History of total hysterectomy with bilateral salpingo-oophorectomy (BSO) (~09/07/20[place] [facility] [place] History of vascular access device removed [place] teeth removed Family History Mother Scleroderma Lupus Family history of reaction to anesthesia nausea Father Coronary heart disease Heart disease Brother Fatty liver Aunt Cancer unspecified Grandfather (Paternal) Heart disease Grandfather (Maternal) Lung disease Grandmother (Paternal) Stroke Grandmother (Maternal) Family history of diabetes mellitus Social History Smoking Status: Never smoker Tobacco Type: Cigarettes Cigarettes Per Day: couple cigs on weekends in ; Second Hand Exposure: No; Do You Dip or Chew Tobacco: No; Tobacco Cessation Education Requested by Patient: No Hx Alcohol Use: No Hx Substance Use: No Preferred Language: [place] Communication Ability: Effective Visual Impairment: No Limitations Infection Control Manager Required: No Beliefs That Will Affect Care: None marital status: Current Living Situation: Alone Current Living Situation Comment: Lives alone in apartment current occupational status: retired How many Children do You have: 0 Other Information That Helps Us Care for You: No Feels Safe at Home: Yes Safety Concerns: Feels Safe At This Time during the past year weight has: remained stable Assistive Devices: Glasses, Oxygen - at Night and Walker Review of Systems Review of Systems: All systems reviewed & are unremarkable except as noted in HPI & below Physical Exam Physical Exam: Constitutional: Patient appears to be of their stated age. Patient is in no apparent distress. Patient is well-developed. Eyes: Pupils are equal round and reactive to light. Conjunctivae are normal. Anicteric sclera. Ears nose, mouth and throat: Mallampati class 3. Normal posterior oropharynx. Uvula is midline. Neck: Trachea is midline. Visual inspection is normal. Respiratory: Diffuse crackles bilaterally. Cardiovascular: Regular rate and rhythm. No murmurs. No edema. Gastrointestinal: Normal bowel sounds, soft, nontender and nondistended. No hepatosplenomegaly noted. Musculoskeletal: Decreased range of motion of the lower extremities. Skin: No rashes, warm dry and intact. Neurologic: No obvious focal neurological deficits seen. Psychiatric: Alert and oriented x3 with a euthymic affect. Results & Data Results & Data Vital Signs (Past 12 Hours) Vital Signs Temp Pulse Pulse Resp BP BP BP 02/28/23 11:30 36.6 C 60 18 111/48 L 02/28/23 10:38 61 02/28/23 07:22 36.4 C L 62 18 149/81 H 02/28/23 03:50 02/28/23 03:19 36.8 C 65 18 154/77 H 02/28/23 03:19 02/28/23 02:30 63 18 152/59 H 02/28/23 01:30 64 20 150/89 H 02/28/23 01:12 Pulse Ox Pulse Ox O2 Del Method O2 Del Method O2 Flow Rate O2 Flow Rate 02/28/23 11:30 97 Nasal Cannula 4 02/28/23 10:38 02/28/23 07:22 95 Nasal Cannula 4 02/28/23 03:50 Nasal Cannula 4 02/28/23 03:19 92 Nasal Cannula 4 02/28/23 03:19 92 Nasal Cannula 4 02/28/23 02:30 93 02/28/23 01:30 90 02/28/23 01:12 94 Nasal Cannula 2 PG Care Time/CCT Total # of Minutes Spent Total Time Spent with Patient: Total time spent is greater than 50% in coordination of care (as documented) at patient's floor/unit and/or counseling patient: Coding Level of Care Code 89521 INT INP/OBS CARE 2/55MIN Diagnoses Respiratory failure with hypercapnia J96.92 Liver cirrhosis secondary to WEIR K75.81; K74.60 Secondary pulmonary hypertension Supracondylar fracture of right femur S72.451A Encounter type: initial encounter Fracture type: closed
--- NOTE | 2023-02-28 13:05 | Electrocardiogram Report ---
Test Reason : Blood Pressure : / mmHG Vent. Rate : 066 BPM Atrial Rate : 066 BPM P-R Int : 130 ms QRS Dur : 086 ms QT Int : 454 ms P-R-T Axes : 026 022 047 degrees QTc Int : 475 ms Poor data quality, interpretation may be adversely affected Normal sinus rhythm atrial-paced complexes Nonspecific ST and T wave abnormality Abnormal ECG When compared with ECG of 16-JAN-2023 19:01, atrial-paced complexes now present Confirmed by Bhavesh Kiser ([id number]) on 02/28/2023 1:05:40 PM Referred By: REFERRED SELF Confirmed By:Bhavesh Kiser
[2023-03-01] MEDS ORDERED: LIDOCAINE 5% 1 PATCH TD SCH (09:00)
== END 2023-02-28 15:11 | disposition short-term general hospital (02) | DRG 533 ==
LOC: ED 19:05 → 2N 02-28 00:59

== ENCOUNTER 2023-05-19 10:41 | Inpatient (IN) ==
--- NOTE | 2023-05-19 11:04 | Emergency Department Note ---
Impression & Plan Respiratory failure with hypoxia, Pneumonia ED Provider Note NAME: MICHELLE ARELLANO AGE: 67 SEX: F : 1955 ARRIVES VIA: Walk-In INFORMANT: Patient ED PROVIDER(S): Jonh Rushing DO CHIEF COMPLAINT: shortness of breath HPI: Patient is a 67-year-old female with a past medical history of pulmonary hypertension, liver cirrhosis secondary to WEIR, anxiety and shortness of breath as well as A-fib who presents to the ER for shortness of breath which started this past weekend. Patient denies any headache or change in vision. No cough, congestion, or runny nose. No chest pain. No belly pain, nausea, vomiting, or diarrhea. She notes she has been going to the wound care center for her right lower leg. She notes her left lower leg is newly enlarged. No dysuria, urge ncy, or frequency. No other exacerbating or remitting factors. She does wear 2 L nasal cannula only at night prior to this weekend. PAST MEDICAL HISTORY:See Below PAST SURGICAL HISTORY:See Below FAMILY HISTORY:See Below SOCIAL HISTORY:See Below HOME MEDICATIONS:See Below ALLERGIES:See Below VITALS:See Below PHYSICAL EXAMINATION: GENERAL: Sitting up in bed, alert, well appearing, well nourished, no distress, non-toxic EYE EXAM: normal conjunctiva. OROPHARYNX: no exudate, no erythema, lips, buccal mucosa, and tongue normal and mucous membranes are moist NECK: supple, no nuchal rigidity, no adenopathy, non-tender LUNGS: Clear to auscultation. Normal chest wall mechanics HEART: no murmurs, S1 normal and S2 normal ABDOMEN: abdomen soft, non-tender, normo-active bowel sounds, no masses, no rebound or guarding. UPPER EXTREMITIES: upper extremities are grossly normal. LOWER EXTREMITIES: Left lower extremity/calf larger than right NEURO EXAM: Normal sensorium, cranial nerves II-XII grossly intact, normal speech, no gross weakness of arms, no gross weakness of legs. MEDICAL DECISION MAKING: Patient is a 67-year-old female who presents the ER for shortness of breath which started this weekend. IV was established blood work was obtained. External records reviewed. Labs show no significant leukocytosis. Mild anemia at 11. BMP along with LFTs and bilirubin was unremarkable. Troponin was negative. Lipase normal. Pro-Ramirez negative. COVID-negative. Chest CT showed multifocal infiltrates. Was given Rocephin and azithromycin. Do favor this because of the hypoxia. Patient was updated bedside. She had no other upper respiratory symptoms including no cough congestion runny nose. Did discuss with the hospitalist Love further evaluation management and treatment. She remained on 6 L while in the ER. Triage Nursing notes reviewed. Limited review of prior medical records performed Vital Signs: reviewed and remarkable for hypoxia Differential diagnosis: Differential diagnoses includes but is not limited to pneumonia, bronchitis, COPD/Asthma exacerbation, pneumothorax, pulmonary embolism, congestive heart failure, acute coronary syndrome ER treatment provided: See below Diagnostics interpreted by me include EKG and cardiac monitoring as listed below: -Cardiac Monitoring: An order was placed for continuous cardiac monitoring. The monitor shows a rate of 70 with sinus rhythm. -ECG: Sinus rhythm rate 68 Normal axis No PVCs QTc 429 -Laboratory studies:Interpreted by me as stated above in MDM and shown below. Imaging studies: Xrays: As interpreted by me: Chest x-ray with multifocal infiltrates CTs show: CT angio chest shows multifocal infiltrates Consultation(s): As described in [facility] Procedures:none Critical Care: I have personally spent 40 minutes of critical care time in the direct management of this patient. This includes bedside care, interpretation of diagnostic studies, and testing, discussion with consultants, patient, and family members, and other required patient management activities. This 40 minutes is in excess of all separately billable procedures. Past Med/Surg History Medical History Anemia hx blood transfusions Hgb baseline 8-9 Anxiety and depression Atrial fibrillation No AC due to GI bleed and anemia Chronic hypoxemic respiratory failure Chronic right-sided HF (heart failure) Likely per cardio secondary to obesity hypo ventilatory syndrome/Pickwickian CKD (chronic kidney disease), stage III [address] 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 WELSH). last check 3 weeks ago Restless leg syndrome Secondary pulmonary hypertension Sick sinus syndrome Spinal stenosis HX Surgical History H/O arthroscopy of knee H/O cystoscopy H/O gastric bypass "1980, reversed in same year" History of appendectomy (~09/07/20) History of arthroscopy LEFT KNEE History of colonoscopy History of ERCP (~09/2020) History of esophagogastroduodenoscopy (EGD) History of herniorrhaphy VENTRAL HERNIA REPAIR= 04/27/17= GRADE VIEW 2, CLEMENTE#2, ETT 7.0 AT [facility] History of lithotripsy History of tonsillectomy History of total hysterectomy with bilateral salpingo-oophorectomy (BSO) (~09/07/20) @ [facility] [place] with appy at same time History of vascular access device removed [place] teeth removed Family History Mother Scleroderma Lupus Family history of reaction to anesthesia nausea Father Coronary heart disease Heart disease Brother Fatty liver Aunt Cancer unspecified Grandfather (Paternal) Heart disease Grandfather (Maternal) Lung disease Grandmother (Paternal) Stroke Grandmother (Maternal) Family history of diabetes mellitus Social History Smoking Status: Former smoker Tobacco Type: Cigarettes Cigarettes Per Day: couple cigs on weekends in ; Second Hand Exposure: No; Do You Dip or Chew Tobacco: No; Hx Alcohol Use: No Hx Substance Use: No Preferred Language: Malian Communication Ability: Effective Visual Impairment: No Limitations Hat Block Maker Required: No Beliefs That Will Affect Care: None marital status: Current Living Situation: Alone Current Living Situation Comment: Lives alone in apartment current occupational status: retired How many Children do You have: 0 Feels Safe at Home: Yes Diet: regular during the past year weight has: remained stable Assistive Devices: Glasses, Oxygen - at Night and Walker Allergies Allergies Allergy/AdvReac Type Severity Reaction Status Date / Time levofloxacin Allergy Intermediate LE Verified 05/19/23 09:54 swelling and blistering paclitaxel [From Taxol] Allergy Intermediate facial Verified 05/19/23 09:54 flushing, bradycardia doxorubicin AdvReac Severe Hypoxia Verified 05/19/23 09:54 clindamycin AdvReac Intermediate PT Verified 05/19/23 09:54 CONTRACTED C-DIFF shellfish derived AdvReac Intermediate NAUSEA,DIARRHEA, Verified 05/19/23 09:54 VOMITING adhesive AdvReac Mild SKIN Verified 05/19/23 09:54 BLISTERS SOME TIMES Home Meds Home Medications Medication Instructions Recorded Confirmed lorazepam 0.5 mg tablet 0.5 mg PO Q8H PRN Anxiety 10/18/18 05/19/23 sertraline 100 mg tablet (Zoloft) 100 mg PO QAM 10/18/18 05/19/23 cyclobenzaprine 5 mg tablet 5 mg PO BID PRN Muscle Spasm 08/25/19 05/19/23 omeprazole 20 mg capsule,delayed 20 mg PO BID 04/12/20 05/19/23 release folic acid 1 mg tablet 1 mg PO QAM 05/08/20 05/19/23 fosfomycin tromethamine 3 gram 3 g PO WK 10/01/20 05/19/23 oral packet (Monurol) sotalol 80 mg tablet 80 mg PO BID 10/01/20 05/19/23 loratadine 10 mg tablet (Claritin) 10 mg PO QAM 09/18/22 05/19/23 acetaminophen 325 mg tablet 325 mg PO DIRECTED PRN 02/27/23 05/19/23 (Tylenol) PAIN/FEVER albuterol sulfate 90 mcg/actuation 2 puff inhalation Q4H PRN Wheezing 02/27/23 05/19/23 aerosol inhaler docusate sodium 100 mg capsule 100 mg PO BID 02/27/23 05/19/23 (Stool Softener) fluoride (sodium) 1.1 % dental 1 applic dental BID 02/27/23 05/19/23 cream (SF 5000 Plus) hydroxyzine HCl 25 mg tablet 25 mg PO HS PRN Itching 02/27/23 05/19/23 gabapentin 300 mg tablet 300 mg PO TID 03/26/23 05/19/23 hydrochlorothiazide 25 mg tablet 25 mg PO DAILY 04/16/23 05/19/23 Previous Rx's Medication Instructions Recorded cholecalciferol (vitamin D3) 50 2,000 unit PO QAM #90 tabs 04/09/21 mcg (2,000 unit) tablet Portable Oxygen #1 ea 01/23/23 Results & Data (ED) Vital Signs Vital Signs - 24 hr 05/19/23 10:46 05/19/23 10:49 05/19/23 11:05 Temperature 36.8 C Temperature Source Temporal Artery Scan Pulse Rate 71 Pulse Rate [Apical] Pulse Rate from SpO2 Sensor Respiratory Rate 24 Respiratory Effort / Characteristics Spontaneous Respiratory Depth Normal Respiratory Pattern Regular Blood Pressure 133/79 Blood Pressure [Left Arm] Blood Pressure Mean 97 Blood Pressure Mean [Left Arm] Blood Pressure Position Sitting Pulse Oximetry 84 L 84 L 96 Oxygen Delivery Method Nasal Cannula Nasal Cannula Nasal Cannula Oxygen Flow Rate 4 4 6 Sepsis Recent Fever Within 48 Hours No Sepsis New/Unexplained Change in Mental Status No Sepsis Action Taken by Nursing No Action Required Oxygen Flow Rate - Titration 6 Pulse Oximetry Post Tiitration 93 05/19/23 11:24 05/19/23 12:41 05/19/23 12:43 Temperature Temperature Source Pulse Rate 68 67 Pulse Rate [Apical] 66 Pulse Rate from SpO2 Sensor Respiratory Rate 23 20 Respiratory Effort / Characteristics Respiratory Depth Respiratory Pattern Blood Pressure Blood Pressure [Left Arm] 133/71 Blood Pressure Mean Blood Pressure Mean [Left Arm] 91 Blood Pressure Position Pulse Oximetry 96 96 Oxygen Delivery Method Nasal Cannula Nasal Cannula Oxygen Flow Rate 6 6 Sepsis Recent Fever Within 48 Hours Sepsis New/Unexplained Change in Mental Status Sepsis Action Taken by Nursing Oxygen Flow Rate - Titration Pulse Oximetry Post Tiitration 05/19/23 11:11 05/19/23 11:20 05/19/23 11:30 Temperature Temperature Source Pulse Rate 68 70 71 Pulse Rate [Apical] Pulse Rate from SpO2 Sensor 68 68 74 Respiratory Rate 27 H 28 H 21 Respiratory Effort / Characteristics Respiratory Depth Respiratory Pattern Blood Pressure Blood Pressure [Left Arm] Blood Pressure Mean Blood Pressure Mean [Left Arm] Blood Pressure Position Pulse Oximetry 97 97 96 Oxygen Delivery Method Oxygen Flow Rate Sepsis Recent Fever Within 48 Hours Sepsis New/Unexplained Change in Mental Status Sepsis Action Taken by Nursing Oxygen Flow Rate - Titration Pulse Oximetry Post Tiitration 05/19/23 11:45 05/19/23 11:50 05/19/23 12:00 Temperature Temperature Source Pulse Rate Pulse Rate [Apical] Pulse Rate from SpO2 Sensor 71 71 Respiratory Rate Respiratory Effort / Characteristics Respiratory Depth Respiratory Pattern Blood Pressure Blood Pressure [Left Arm] Blood Pressure Mean Blood Pressure Mean [Left Arm] Blood Pressure Position Pulse Oximetry 94 96 94 Oxygen Delivery Method Oxygen Flow Rate Sepsis Recent Fever Within 48 Hours Sepsis New/Unexplained Change in Mental Status Sepsis Action Taken by Nursing Oxygen Flow Rate - Titration Pulse Oximetry Post Tiitration 05/19/23 12:10 05/19/23 12:20 05/19/23 12:30 Temperature Temperature Source Pulse Rate Pulse Rate [Apical] Pulse Rate from SpO2 Sensor 69 70 69 Respiratory Rate Respiratory Effort / Characteristics Respiratory Depth Respiratory Pattern Blood Pressure Blood Pressure [Left Arm] Blood Pressure Mean Blood Pressure Mean [Left Arm] Blood Pressure Position Pulse Oximetry 95 96 97 Oxygen Delivery Method Oxygen Flow Rate Sepsis Recent Fever Within 48 Hours Sepsis New/Unexplained Change in Mental Status Sepsis Action Taken by Nursing Oxygen Flow Rate - Titration Pulse Oximetry Post Tiitration 05/19/23 12:38 05/19/23 12:38 05/19/23 12:40 Temperature Temperature Source Pulse Rate 68 Pulse Rate [Apical] Pulse Rate from SpO2 Sensor 67 68 Respiratory Rate 20 Respiratory Effort / Characteristics Respiratory Depth Respiratory Pattern Blood Pressure 134/66 Blood Pressure [Left Arm] Blood Pressure Mean 99 Blood Pressure Mean [Left Arm] Blood Pressure Position Pulse Oximetry 94 96 Oxygen Delivery Method Oxygen Flow Rate Sepsis Recent Fever Within 48 Hours Sepsis New/Unexplained Change in Mental Status Sepsis Action Taken by Nursing Oxygen Flow Rate - Titration Pulse Oximetry Post Tiitration 05/19/23 12:42 05/19/23 12:42 05/19/23 12:50 Temperature Temperature Source Pulse Rate 68 66 Pulse Rate [Apical] Pulse Rate from SpO2 Sensor 68 66 Respiratory Rate 20 24 Respiratory Effort / Characteristics Respiratory Depth Respiratory Pattern Blood Pressure 133/71 Blood Pressure [Left Arm] Blood Pressure Mean 101 Blood Pressure Mean [Left Arm] Blood Pressure Position Pulse Oximetry 96 97 Oxygen Delivery Method Oxygen Flow Rate Sepsis Recent Fever Within 48 Hours Sepsis New/Unexplained Change in Mental Status Sepsis Action Taken by Nursing Oxygen Flow Rate - Titration Pulse Oximetry Post Tiitration 05/19/23 13:00 05/19/23 13:00 05/19/23 13:10 Temperature Temperature Source Pulse Rate 66 65 Pulse Rate [Apical] Pulse Rate from SpO2 Sensor 67 65 Respiratory Rate 17 21 Respiratory Effort / Characteristics Respiratory Depth Respiratory Pattern Blood Pressure 137/65 Blood Pressure [Left Arm] Blood Pressure Mean 85 Blood Pressure Mean [Left Arm] Blood Pressure Position Pulse Oximetry 95 95 Oxygen Delivery Method Oxygen Flow Rate Sepsis Recent Fever Within 48 Hours Sepsis New/Unexplained Change in Mental Status Sepsis Action Taken by Nursing Oxygen Flow Rate - Titration Pulse Oximetry Post Tiitration 05/19/23 13:20 05/19/23 13:30 05/19/23 13:40 Temperature Temperature Source Pulse Rate 66 66 65 Pulse Rate [Apical] Pulse Rate from SpO2 Sensor 66 65 68 Respiratory Rate 20 22 14 Respiratory Effort / Characteristics Respiratory Depth Respiratory Pattern Blood Pressure Blood Pressure [Left Arm] Blood Pressure Mean Blood Pressure Mean [Left Arm] Blood Pressure Position Pulse Oximetry 97 97 96 Oxygen Delivery Method Oxygen Flow Rate Sepsis Recent Fever Within 48 Hours Sepsis New/Unexplained Change in Mental Status Sepsis Action Taken by Nursing Oxygen Flow Rate - Titration Pulse Oximetry Post Tiitration 05/19/23 13:50 05/19/23 14:00 05/19/23 14:00 Temperature Temperature Source Pulse Rate 65 65 Pulse Rate [Apical] Pulse Rate from SpO2 Sensor 65 65 Respiratory Rate 23 21 Respiratory Effort / Characteristics Respiratory Depth Respiratory Pattern Blood Pressure 136/71 Blood Pressure [Left Arm] Blood Pressure Mean 105 Blood Pressure Mean [Left Arm] Blood Pressure Position Pulse Oximetry 96 97 Oxygen Delivery Method Oxygen Flow Rate Sepsis Recent Fever Within 48 Hours Sepsis New/Unexplained Change in Mental Status Sepsis Action Taken by Nursing Oxygen Flow Rate - Titration Pulse Oximetry Post Tiitration 05/19/23 14:10 05/19/23 14:20 Temperature Temperature Source Pulse Rate 69 66 Pulse Rate [Apical] Pulse Rate from SpO2 Sensor 69 67 Respiratory Rate 22 22 Respiratory Effort / Characteristics Respiratory Depth Respiratory Pattern Blood Pressure Blood Pressure [Left Arm] Blood Pressure Mean Blood Pressure Mean [Left Arm] Blood Pressure Position Pulse Oximetry 94 97 Oxygen Delivery Method Oxygen Flow Rate Sepsis Recent Fever Within 48 Hours Sepsis New/Unexplained Change in Mental Status Sepsis Action Taken by Nursing Oxygen Flow Rate - Titration Pulse Oximetry Post Tiitration Laboratory Data 05/19/23 11:10 05/19/23 11:10 Lab Results 05/19/23 05/19/23 05/19/23 Range/Units 11:10 11:10 11:11 WBC 6.17 (4.8-10.8) K/ul RBC 3.84 L (4.20-5.40) M/uL Hgb 11.0 L (12.0-16.0) g/dl POC Hgb (12.0-16.0) g/dl Hct 35.4 L (37.0-47.0) % POC Hct (37-47) % MCV 92.2 (80.0-100.0) fL MCH 28.6 (25.0-34.0) pg MCHC 31.1 L (32.0-36.0) g/dL RDW Std Deviation 71.2 H (36.4-46.3) fL RDW Coeff of Patrica 20.9 H (11.5-14.5) % Plt Count 160 (130-400) K/uL MPV 10.9 (9.4-12.4) fL Immature Gran % (Auto) 0.8 % Neut % (Auto) 74.9 % Lymph % (Auto) 13.8 % Hall % (Auto) 8.4 % Eos % (Auto) 1.9 % Baso % (Auto) 0.2 % Neut # (Auto) 4.62 (1.40-6.50) K/uL Lymph # (Auto) 0.85 L (1.2-3.4) K/uL Hall # (Auto) 0.52 (0.11-0.59) K/uL Eos # (Auto) 0.12 (0-0.50) K/uL Baso # (Auto) 0.01 (0-0.2) K/uL Immature Gran # (Auto) 0.05 (0.01-0.20) K/uL Anisocytosis Present Tear Drop Cells 1+ POC Sodium (135-144) mmol/L Sodium 139 (136-145) mmol/L POC Potassium (3.3-5.0) mmol/L Potassium 4.3 (3.5-5.1) mmol/L POC Chloride (101-112) mmol/L Chloride 102 (98-107) mmol/L Carbon Dioxide 32 (21-32) mmol/L POC Total CO2 (24-31) mmol/L Anion Gap 5 (3-11) POC Anion Gap (16-25) mmol/L POC BUN (7-18) mg/dl BUN 23 (6-23) mg/dl Creatinine 0.93 (0.6-1.2) mg/dl POC Creatinine (0.6-1.3) mg/dl Est Cr Clr Drug Dosing Not Reportable Est GFR ( Amer) 72.7 ml/min Est GFR (Non-Af Amer) 62.7 ml/min BUN/Creatinine Ratio 24.7 H (10-20) Glucose 118 H (70-99(Fasting)) mg/dl POC Glucose (other) (70-99) mg/dl Calcium 9.6 (8.6-10.3) mg/dl POC Ioniz Calcium Du (1.12-1.32) mmol/l Total Bilirubin 0.4 (0.2-1.0) mg/dl AST 19 (13-39) U/L ALT 24 (7-52) U/L Alkaline Phosphatase 128 H (34-104) U/L Troponin I High Sens 7.1 (0-14) pg/ml Total Protein 7.4 (6.0-8.3) gm/dl Albumin 3.8 (3.4-5.0) gm/dl Globulin 3.6 (2.5-4.0) gm/dl Albumin/Globulin Ratio 1.1 (0.9-2) Lipase 15 (11-82) U/L Procalcitonin < 0.05 (0-0.5) ng/ml SARS-CoV-2, RNA, NAAT (NEGATIVE) 05/19/23 05/19/23 Range/Units 11:17 12:39 WBC (4.8-10.8) K/ul RBC (4.20-5.40) M/uL Hgb (12.0-16.0) g/dl POC Hgb 11.9 L (12.0-16.0) g/dl Hct (37.0-47.0) % POC Hct 35 L (37-47) % MCV (80.0-100.0) fL MCH (25.0-34.0) pg MCHC (32.0-36.0) g/dL RDW Std Deviation (36.4-46.3) fL RDW Coeff of Patrica (11.5-14.5) % Plt Count (130-400) K/uL MPV (9.4-12.4) fL Immature Gran % (Auto) % Neut % (Auto) % Lymph % (Auto) % Hall % (Auto) % Eos % (Auto) % Baso % (Auto) % Neut # (Auto) (1.40-6.50) K/uL Lymph # (Auto) (1.2-3.4) K/uL Hall # (Auto) (0.11-0.59) K/uL Eos # (Auto) (0-0.50) K/uL Baso # (Auto) (0-0.2) K/uL Immature Gran # (Auto) (0.01-0.20) K/uL Anisocytosis Tear Drop Cells POC Sodium 140 (135-144) mmol/L Sodium (136-145) mmol/L POC Potassium 4.3 (3.3-5.0) mmol/L Potassium (3.5-5.1) mmol/L POC Chloride 99 L (101-112) mmol/L Chloride (98-107) mmol/L Carbon Dioxide (21-32) mmol/L POC Total CO2 31 (24-31) mmol/L Anion Gap (3-11) POC Anion Gap 15.0 L (16-25) mmol/L POC BUN 24 H (7-18) mg/dl BUN (6-23) mg/dl Creatinine (0.6-1.2) mg/dl POC Creatinine 1.0 (0.6-1.3) mg/dl Est Cr Clr Drug Dosing Est GFR ( Amer) ml/min Est GFR (Non-Af Amer) ml/min BUN/Creatinine Ratio (10-20) Glucose (70-99(Fasting)) mg/dl POC Glucose (other) 119 H (70-99) mg/dl Calcium (8.6-10.3) mg/dl POC Ioniz Calcium Du 1.20 (1.12-1.32) mmol/l Total Bilirubin (0.2-1.0) mg/dl AST (13-39) U/L ALT (7-52) U/L Alkaline Phosphatase (34-104) U/L Troponin I High Sens (0-14) pg/ml Total Protein (6.0-8.3) gm/dl Albumin (3.4-5.0) gm/dl Globulin (2.5-4.0) gm/dl Albumin/Globulin Ratio (0.9-2) Lipase (11-82) U/L Procalcitonin (0-0.5) ng/ml SARS-CoV-2, RNA, NAAT NEGATIVE (NEGATIVE) Administered Medications Discontinued Medications Ceftriaxone Sodium (Rocephin) 2,000 mg in 70 mls @ 140 mls/hr IV NOW STA Stop: 05/19/23 12:49 Last Infusion: 05/19/23 13:07 Dose: 0 mls/hr Documented By: Admin: 05/19/23 12:34 Dose: 140 mls/hr Documented By: ML Azithromycin 500 mg/ Dextrose 255 mls @ 127.5 mls/hr IV NOW STA Stop: 05/19/23 14:19 Last Admin: 05/19/23 14:01 Dose: 127.5 mls/hr Documented By: ML Ioversol (Optiray 320 125ml) 120 ml IV ONCE ONE Stop: 05/19/23 11:43 Last Admin: 05/19/23 11:42 Dose: 120 ml Documented By: GEORGE Imaging Data Radiologist's Impression: Chest CTA 05/19/23 11:00 CT ANGIOGRAM OF THE CHEST CLINICAL HISTORY: Hypoxia. Dyspnea. Lower extremity edema. COMPARISON STUDY: Chest x-ray dated 05/19/2023. Chest CT dated 11/28/2020. TECHNIQUE: Following the IV administration of 120 cc of Optiray 320, CT angiogram of the chest was performed from the upper abdomen to the thoracic inlet utilizing the pulmonary embolus protocol. Images are reviewed in the axial, sagittal, and coronal planes. 3-D MIPS images are created and assessed. IV contrast was administered without complication. A dose lowering technique was utilized adhering to the principles of ALARA. CT DOSE: 1099.12 mGy.cm FINDINGS: Thyroid: Imaged portions of the thyroid gland are normal in size and attenuation. Thoracic aorta: There is atherosclerotic calcification of the thoracic aorta, which is normal in caliber and demonstrates standard 3-vessel arch anatomy. No dissection is seen. Pulmonary vasculature: The main pulmonary arteries are dilated suggesting pulmonary artery hypertension. There are no filling defects identified in main, lobar, or segmental pulmonary branches to suggest pulmonary embolus. Evaluation of the distal segmental and subsegmental branches is degraded by motion artifact. Heart: A cardiac pacemaker is present in the left chest wall. The heart is en larged and without pericardial effusion. The coronary arteries and mitral annulus are densely calcified. Lungs and pleural spaces: Evaluation of the lung parenchyma is degraded by motion artifact. Parenchymal scarring and architectural distortion is seen throughout both lungs. Multifocal patchy airspace consolidation is seen throughout both lungs. No pleural effusion is identified. The trachea and central airways are clear. Mediastinum: There are numerous mildly enlarged mediastinal lymph nodes. An AP window node measures 11 mm short axis. Prevascular nodes measure up to 10 mm short axis. Deirdre: Mildly enlarged hilar nodes measure up to 10 mm in short axis. Axillae: There is no axillary lymphadenopathy. Upper abdomen: The gallbladder surgically absent. Postoperative changes noted in the stomach. The spleen is markedly enlarged measuring at least 18.7 cm in le ngth. The liver is enlarged. Nodularity of the hepatic surface contour indicates morphologic changes of cirrhosis. Skeletal structures: The skeletal structures are osteopenic. No lytic or blastic bony lesions are seen. Degenerative change is seen in the shoulders and spine. There is a mild an age indeterminant superior endplate compression deformity of T5. This is new from 2020. IMPRESSION: 1. There is no evidence of pulmonary embolus in the main, lobar, or segmental pulmonary arteries. 2. Cardiomegaly and cardiac pacemaker. 3. Multifocal airspace consolidation is seen throughout both lungs, and the the appearance favors an infectious/inflammatory pneumonitis. This may be viral. Pulmonary edema could appear similar. Clinical correlation will be essential and radiographic follow-up to resolution is recommended. 4. There is no pleural effusion. 5. Mildly enlarged mediastinal and hilar nodes are nonspecific and may be reactive. 6. The liver is enlarged with morphological change of cirrhosis. 7. Marked splenomegaly. 8. Mild and age indeterminant compression deformity of T5. Correlate for point tenderness. 9. Additional findings as above. ACT 112: Negative or not required by law. Electronically signed by: Freddie Mae M.D. 05/19/2023 11:58 AM Chest X-Ray 05/19/23 11:00 XR chest 1V portable CLINICAL HISTORY: Chest pain, nonspecific TECHNIQUE: Single frontal radiograph of the chest was obtained. Comparison: Comparison is made to chest radiograph 02/27/2023 FINDINGS: Dual lead pacemaker is seen. Cardiomegaly is noted. Multifocal airspace opacities are seen. No evidence of pleural effusion or pneumothorax. IMPRESSION: Multifocal airspace opacities may represent atelectasis, pneumonia, and/or aspiration. ACT 112: Negative or not required by law. Electronically signed by: Lito Carvalho M.D. 05/19/2023 11:22 AM Discharge Plan Visit Data Chief Complaint: Shortness of Breath/Dyspnea Stated Complaint: MENTAL HEALTH EVALUATION ED Provider: Jonh Rusihng Discharge Problem: Respiratory failure with hypoxia, Pneumonia Forms Stand Alone Forms: My [facility] Prescriptions Prescriptions: No Action hydrochlorothiazide 25 mg tablet 25 mg PO DAILY cholecalciferol (vitamin D3) 50 mcg (2,000 unit) tablet 2,000 unit PO QAM Qty: 90 3RF omeprazole 20 mg capsule,delayed release(DR/EC) 20 mg PO BID sertraline [Zoloft] 100 mg Tablet 100 mg PO QAM lorazepam 0.5 mg Tablet 0.5 mg PO Q8H PRN (Reason: Anxiety) folic acid 1 mg Tablet 1 mg PO QAM fosfomycin tromethamine [Monurol] 3 gram packet 3 g PO WK Rx Instructions: TAKE THIS MEDICATION EVERY THURSDAY sotalol 80 mg tablet 80 mg PO BID cyclobenzaprine 5 mg tablet 5 mg PO BID PRN (Reason: Muscle Spasm) loratadine [Claritin] 10 mg Tablet 10 mg PO QAM acetaminophen [Tylenol] 325 mg Tablet 325 mg PO DIRECTED PRN (Reason: PAIN/FEVER) docusate sodium [Stool Softener] 100 mg Capsule 100 mg PO BID hydroxyzine HCl 25 mg tablet 25 mg PO HS PRN (Reason: Itching) albuterol sulfate 90 mcg/actuation HFA aerosol inhaler 2 puff INHALATION Q4H PRN (Reason: Wheezing) fluoride (sodium) [SF 5000 Plus] 1.1 % Cream 1 applic DENTAL BID (DME) Portable Oxygen Misc See Rx Instructions .Route Qty: 1 0RF Rx Instructions: 3lpm via nasal cannula. Test for portability (POC) gabapentin 300 mg Tablet 300 mg PO TID Referrals Referrals: Kat Hawthorne DO [Primary Care Provider] -
--- NOTE | 2023-05-19 11:23 | XRay Report ---
XR chest 1V portable CLINICAL HISTORY: Chest pain, nonspecific TECHNIQUE: Single frontal radiograph of the chest was obtained. Comparison: Comparison is made to chest radiograph 02/27/2023 FINDINGS: Dual lead pacemaker is seen. Cardiomegaly is noted. Multifocal airspace opacities are seen. No eviden ce of pleural effusion or pneumothorax. IMPRESSION: Multifocal airspace opacities may represent atelectasis, pneumonia, and/or aspiration. ACT 112: Negative or not required by law. Electronically signed by: Lito Carvalho M.D. 05/19/2023 11:22 AM
[2023-05-19 11:30] LABS: iSTAT Hemoglobin 11.9 g/dl (12.0-16.0); iSTAT Ionized Calcium 1.2 mmol/l (1.12-1.32); iSTAT Potassium 4.3 mmol/L (3.3-5.0)
[2023-05-19 11:35] LABS: Basophils # (auto) 0.01 K/uL (0-0.2); Basophils % (auto) 0.2 %; Eosinophils # (auto) 0.12 K/uL (0-0.50); Eosinophils % (auto) 1.9 %; Hematocrit (blood only) 35.4 % (37.0-47.0); Immature Granulocytes # (auto) 0.05 K/uL (0.01-0.20); Immature Granulocytes % (auto) 0.8 %; Lymphocytes # (auto) 0.85 K/uL (1.2-3.4); Lymphocytes % (auto) 13.8 %; Mean Corpuscular Hemoglobin 28.6 pg (25.0-34.0); Mean Corpuscular Hgb Conc 31.1 g/dL (32.0-36.0); Mean Corpuscular Volume 92.2 fL (80.0-100.0); Mean Platelet Volume 10.9 fL (9.4-12.4); Monocytes # (auto) 0.52 K/uL (0.11-0.59); Monocytes % (auto) 8.4 %; Neutrophils # (auto) 4.62 K/uL (1.40-6.50); Neutrophils % (auto) 74.9 %; Platelet Count 160 K/uL (130-400); RDW Coefficient of Variation 20.9 % (11.5-14.5); RDW Standard Deviation 71.2 fL (36.4-46.3); Red Blood Count 3.84 M/uL (4.20-5.40); White Blood Count 6.17 K/ul (4.8-10.8)
[2023-05-19] MEDS ORDERED: OPTIRAY 320 125ml IV ONE (11:42)
[2023-05-19 11:50] LABS: Alanine Aminotransferase 24 U/L (7-52); Albumin Globulin Ratio 1.1 (0.9-2); Albumin Level 3.8 gm/dl (3.4-5.0); Alkaline Phosphatase 128 U/L (34-104); Anion Gap 5 (3-11); Aspartate Aminotransferase 19 U/L (13-39); BUN Creatinine Ratio 24.7 (10-20); Bilirubin,Total 0.4 mg/dl (0.2-1.0); Blood Urea Nitrogen 23 mg/dl (6-23); Calcium 9.6 mg/dl (8.6-10.3); Carbon Dioxide 32 mmol/L (21-32); Chloride 102 mmol/L (98-107); Est GFR (African American) 72.7 ml/min; Est GFR (Non-African American) 62.7 ml/min; Globulin 3.6 gm/dl (2.5-4.0); Glucose 118 mg/dl (70-99(Fasting)); Lipase 15 U/L (11-82); Potassium 4.3 mmol/L (3.5-5.1); Sodium 139 mmol/L (136-145); Total Protein 7.4 gm/dl (6.0-8.3)
[2023-05-19 11:57] LABS: Troponin I High Sensitivity 7.1 pg/ml (0-14)
--- NOTE | 2023-05-19 12:00 | CT Scan Report ---
CT ANGIOGRAM OF THE CHEST CLINICAL HISTORY: Hypoxia. Dyspnea. Lower extremity edema. COMPARISON STUDY: Chest x-ray dated 05/19/2023. Chest CT dated 11/28/2020. TECHNIQUE: Following the IV administration of 120 cc of Optiray 320, CT angiogram of the chest was pe rformed from the upper abdomen to the thoracic inlet utilizing the pulmonary embolus protocol. Images are reviewed in the axial, sagittal, and coronal planes. 3-D MIPS images are created and assessed. I V contrast was administered without complication. A dose lowering technique was utilized adhering to the principles of ALARA. CT DOSE: 1099.12 mGy.cm FINDINGS: Thyroid: Imaged portions of the thyroid gland are normal in size and attenuation. Thoracic aorta: There is atherosclerotic calcification of the thoracic aorta, which is normal in jacqueline kailyn and demonstrates standard 3-vessel arch anatomy. No dissection is seen. Pulmonary vasculature: The main pulmonary arteries are dilated suggesting pulmonary artery hypertensi on. There are no filling defects identified in main, lobar, or segmental pulmonary branches to sugges t pulmonary embolus. Evaluation of the distal segmental and subsegmental branches is degraded by jagjit on artifact. Heart: A cardiac pacemaker is present in the left chest wall. The heart is enlarged and without peric ardial effusion. The coronary arteries and mitral annulus are densely calcified. Lungs and pleural spaces: Evaluation of the lung parenchyma is degraded by motion artifact. Parenchym al scarring and architectural distortion is seen throughout both lungs. Multifocal patchy airspace co nsolidation is seen throughout both lungs. No pleural effusion is identified. The trachea and central airways are clear. Mediastinum: There are numerous mildly enlarged mediastinal lymph nodes. An AP window node measures 1 1 mm short axis. Prevascular nodes measure up to 10 mm short axis. Deirdre: Mildly enlarged hilar nodes measure up to 10 mm in short axis. Axillae: There is no axillary lymphadenopathy. Upper abdomen: The gallbladder surgically absent. Postoperative changes noted in the stomach. The spl een is markedly enlarged measuring at least 18.7 cm in length. The liver is enlarged. Nodularity of t he hepatic surface contour indicates morphologic changes of cirrhosis. Skeletal structures: The skeletal structures are osteopenic. No lytic or blastic bony lesions are see n. Degenerative change is seen in the shoulders and spine. There is a mild an age indeterminant super ior endplate compression deformity of T5. This is new from 2020. IMPRESSION: 1. There is no evidence of pulmonary embolus in the main, lobar, or segmental pulmonary arteries. 2. Cardiomegaly and cardiac pacemaker. 3. Multifocal airspace consolidation is seen throughout both lungs, and the the appearance favors an infectious/inflammatory pneumonitis. This may be viral. Pulmonary edema could appear similar. Clinica l correlation will be essential and radiographic follow-up to resolution is recommended. 4. There is no pleural effusion. 5. Mildly enlarged mediastinal and hilar nodes are nonspecific and may be reactive. 6. The liver is enlarged with morphological change of cirrhosis. 7. Marked splenomegaly. 8. Mild and age indeterminant compression deformity of T5. Correlate for point tenderness. 9. Additional findings as above. ACT 112: Negative or not required by law. Electronically signed by: Freddie Mae M.D. 05/19/2023 11:58 AM
[2023-05-19 12:07] LABS: Anisocytosis Present; Tear Drop Cells 1+
[2023-05-19] MEDS ORDERED: AZITHROMYCIN 500 MG in DEXTROSE 5% 250 ML IV STA (12:20)
[2023-05-19] MEDS ORDERED: cefTRIAXone SODIUM 2,000 MG/70 ML BAG IV STA (12:20)
--- NOTE | 2023-05-19 12:40 | History & Physical Report ---
Date of Service May 19, 2023 Assessment & Plan (1) Acute and chronic respiratory failure with hypoxia: (2) Multifocal pneumonia: (3) Interstitial lung disease: (4) Hematoma of right foot: (5) Chronic anemia: (6) Liver cirrhosis secondary to WEIR: (7) Elevated CA 19-9 level: (8) BERRY (obstructive sleep apnea): (9) Sick sinus syndrome: (10) Atrial fibrillation: (11) CKD (chronic kidney disease), stage III: (12) HTN (hypertension): (13) Depression: (14) Anxiety: (15) Obesity, morbid, BMI 40.0-49.9: Plan This is a 67yo F with a PMH of chronic respiratory failure 2/2 pulmonary hypertension and ILD, h/o BERRY (CPAP intolerance)/nocturnal hypoxemia on home 2L O2 HS,SSS s/p PPM, paroxysmal atrial fibrillation not on anticoagulation secondary to GI bleed, hypertension, NAFLD cirrhosis, history esophageal varices, ovarian cancer status post surgery/incomplete chemotherapy, recurrent ESBL E. coli UTI on Fosfomycin suppression Rx, history of C. difficile secondary to clindamycin, CRI (baseline creatinine 1.1), prediabetes, chronic anemia (baseline hemoglobin of 8), chronic thrombocytopenia, past tobacco abuse, [place] [facility] [place] other medical problems listed below who presents with SOB that began a few days ago and was found to have acute on chronic hypoxic respiratory failure and multifocal pneumonia. Acute on chronic hypoxic respiratory failure Multifocal pneumonia H/o ILD Sent from wound care clinic hypoxic in 70s, improved to 95% on 6 L NC Afebrile, no leukocytosis, procal WNL. Does not meet sepsis criteria, non-toxic in appearance Underlying ILD and pulm HTN, on 2L NC O2 at baseline with exertion and HS. 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 Multifocal airspace consolidation is seen throughout both lungs, and the the appearance favors an infectious/inflammatory pneumonitis. This may be viral. Pulmonary edema could appear similar Continue Rocephin, doxycycline (avoid continuation of azithromycin due to drug- drug interaction with Sotalol) Viral resp PCR pending, sputum and blood cx Incentive spirometry, duonebs Q4H PRN SOB or wheezing Continue supplemental O2 (at 2L NC at baseline, currently requiring 6L) Elevated CA 19-9 level H/o ovarian cancer status post surgery/incomplete chemotherapy, recently seen in surveillance [place] [facility] [place] 19-9 elevated at 169 on 05/05/[address] Marion who requested a CT abd/pelvis, ordered Hematoma of R foot Following with wound care, h/o wound vac. Previously had CTA LE that ruled out DVT. Continue wound care Chronic anemia Hgb 11 (improved from previous). On prednisone taper per Dr. 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 Continue at current dose of 20mg daily Paroxysmal atrial fibrillation Continue sotalol BID, not on anticoagulation due to h/o GI bleed Mood disorder Continue Zoloft, Ativan PRN SSS S/p pacemaker placement NAFLD cirrhosis Appears compensated, continue low sodium diet CKD III Cr at baseline ~ 1. Continue to monitor with daily BMP BERRY Intolerant to CPAP, uses 2L NC O2 HS DVT Ppx: SQ heparin Code status: FULL PCP: Christoph Dispo: Admitted to med/tele Patient seen in collaboration with Dr. Chester. Please see addendum. I spent a total of 75 minutes coordinating, documenting, and providing care for this patient excluding time spent in the performance of separately billed services. History of Present Illness Chief Complaint: SOB Primary Care Provider: Kat Hawthorne DO This is a 67yo F with a PMH of chronic respiratory failure 2/2 pulmonary hypertension and ILD, h/o BERRY (CPAP intolerance)/nocturnal hypoxemia on home 2L O2 HS,SSS s/p PPM, paroxysmal atrial fibrillation not on anticoagulation secondary to GI bleed, hypertension, NAFLD cirrhosis, history esophageal varices, ovarian cancer status post surgery/incomplete chemotherapy, recurrent ESBL E. coli UTI on Fosfomycin suppression Rx, history of C. difficile secondary to clindamycin, CRI (baseline creatinine 1.1), prediabetes, chronic anemia (baseline hemoglobin of 8), chronic thrombocytopenia, past tobacco abuse, [place] [facility] [place] other medical problems listed below who presents with SOB that began a few days ago. Noticed feeling winded on Thursday evening after she was preparing supper and went back to pulse ox with the lowest reading of 69%. Usually only uses 2L HS oxygen at night but since recent surgeries has been also using 2L as needed over the day. Since Thursday, patient has been requiring oxygen at all times and has raised oxygen up to 5L earlier today at wound care appointment prior to being redirected to ED. In ED, initially found to be hypoxic at 75% initially in ED and is now 96% on 6 L L/min. Endorses feeling fatigued and lightheaded and has been sleeping a lot more over the past 2 days. Denies fever, chills, cough, congestion, sore throat, CP, N/V, abdominal pain, dysuria, diarrhea or constipation. Due for a CT abd/pelvis scan and heme/onc follow up due to increased CA 10-9 lab work in surveillance of L ovarian cancer history. Allergies Allergy/AdvReac Type Severity Reaction Status Date / Time levofloxacin Allergy Intermediate LE Verified 05/19/23 09:54 swelling and blistering paclitaxel [From Taxol] Allergy Intermediate facial Verified 05/19/23 09:54 flushing, bradycardia doxorubicin AdvReac Severe Hypoxia Verified 05/19/23 09:54 clindamycin AdvReac Intermediate PT Verified 05/19/23 09:54 CONTRACTED C-DIFF shellfish derived AdvReac Intermediate NAUSEA,DIARRHEA, Verified 05/19/23 09:54 VOMITING adhesive AdvReac Mild SKIN Verified 05/19/23 09:54 BLISTERS SOME TIMES Home Medications Medication Instructions Recorded Confirmed Type lorazepam 0.5 mg tablet 0.5 mg PO Q8H PRN Anxiety 10/18/18 05/19/23 History sertraline 100 mg tablet (Zoloft) 100 mg PO QAM 10/18/18 05/19/23 History cyclobenzaprine 5 mg tablet 5 mg PO BID PRN Muscle Spasm 08/25/19 05/19/23 History omeprazole 20 mg capsule,delayed 20 mg PO BID 04/12/20 05/19/23 History release folic acid 1 mg tablet 1 mg PO QAM 05/08/20 05/19/23 History fosfomycin tromethamine 3 gram 3 g PO WK 10/01/20 05/19/23 History oral packet (Monurol) sotalol 80 mg tablet 80 mg PO BID 10/01/20 05/19/23 History cholecalciferol (vitamin D3) 50 2,000 unit PO QAM #90 tabs 04/09/21 05/19/23 Rx mcg (2,000 unit) tablet loratadine 10 mg tablet (Claritin) 10 mg PO QAM 09/18/22 05/19/23 History Portable Oxygen #1 ea 01/23/23 05/19/23 Rx acetaminophen 325 mg tablet 325 mg PO DIRECTED PRN 02/27/23 05/19/23 History (Tylenol) PAIN/FEVER albuterol sulfate 90 mcg/actuation 2 puff inhalation Q4H PRN Wheezing 02/27/23 05/19/23 History aerosol inhaler docusate sodium 100 mg capsule 100 mg PO BID 02/27/23 05/19/23 History (Stool Softener) fluoride (sodium) 1.1 % dental 1 applic dental BID 02/27/23 05/19/23 History cream (SF 5000 Plus) hydroxyzine HCl 25 mg tablet 25 mg PO HS PRN Itching 02/27/23 05/19/23 History gabapentin 300 mg tablet 300 mg PO TID 03/26/23 05/19/23 History hydrochlorothiazide 25 mg tablet 25 mg PO DAILY 04/16/23 05/19/23 History Past Med/Surg History Medical History Anemia hx blood transfusions Hgb baseline 8-9 Anxiety and depression Atrial fibrillation No AC due to GI bleed and anemia Chronic hypoxemic respiratory failure Chronic right-sided HF (heart failure) Likely per cardio secondary to obesity hypo ventilatory syndrome/Pickwickian CKD (chronic kidney disease), stage [address] 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 WELSH). last check 3 weeks ago Restless leg syndrome Secondary pulmonary hypertension Sick sinus syndrome Spinal stenosis HX Surgical History H/O arthroscopy of knee H/O cystoscopy H/O gastric bypass "1980, reversed in same year" History of appendectomy (~09/07/20) History of arthroscopy LEFT KNEE History of colonoscopy History of ERCP (~09/2020) History of esophagogastroduodenoscopy (EGD) History of herniorrhaphy VENTRAL HERNIA REPAIR= 04/27/17= GRADE VIEW 2, CLEMENTE#2, ETT 7.0 AT [facility] History of lithotripsy History of tonsillectomy History of total [place]rectomy with bilateral [place]pingo[place] ([place]O) [place]07[place] [facility] [place] History of vascular access device removed [place] teeth removed Family History Mother Scleroderma Lupus Family history of reaction to anesthesia nausea Father Coronary heart disease Heart disease Brother Fatty liver Aunt Cancer unspecified Grandfather (Paternal) Heart disease Grandfather (Maternal) Lung disease Grandmother (Paternal) Stroke Grandmother (Maternal) Family history of diabetes mellitus Social History Smoking Status: Former smoker Tobacco Type: Cigarettes Cigarettes Per Day: couple cigs on weekends in ; Second Hand Exposure: No; Do You Dip or Chew Tobacco: No; Hx Alcohol Use: No Hx Substance Use: No Preferred Language: Macedonian Communication Ability: Effective Visual Impairment: No Limitations Bread Molder Required: No Beliefs That Will Affect Care: None marital status: Current Living Situation: Alone Current Living Situation Comment: Lives alone in apartment current occupational status: retired How many Children do You have: 0 Feels Safe at Home: Yes Diet: regular during the past year weight has: remained stable Assistive Devices: Glasses, Oxygen - at Night and Walker Review of Systems Review of Systems: At least ten systems reviewed and negative except as noted in the HPI. Physical Exam Physical Exam: Please see Dr. Chester's addendum for physical exam. Results & Data Results & Data Vital Signs (Past 12 Hours) Vital Signs Temp Pulse Resp BP Pulse Ox O2 Del Method O2 Flow Rate 05/19/23 11:24 68 05/19/23 11:05 96 Nasal Cannula 6 05/19/23 10:49 84 L Nasal Cannula 4 05/19/23 10:46 36.8 C 71 24 133/79 84 L Nasal Cannula 4 Laboratory Results Short CBC 05/19/23 Range/Units 11:10 WBC 6.17 (4.8-10.8) K/ul Hgb 11.0 L (12.0-16.0) g/dl Hct 35.4 L (37.0-47.0) % Plt Count 160 (130-400) K/uL BMP 05/19/23 11:10 Sodium 139 Potassium 4.3 Chloride 102 Carbon Dioxide 32 BUN 23 Creatinine 0.93 Glucose 118 H Calcium 9.6 Liver Function 05/19/23 Range/Units 11:10 Total Bilirubin 0.4 (0.2-1.0) mg/dl AST 19 (13-39) U/L ALT 24 (7-52) U/L Alkaline Phosphatase 128 H (34-104) U/L Albumin 3.8 (3.4-5.0) gm/dl Diagnostic Findings Chest CTA 05/19/23 11:00 CT ANGIOGRAM OF THE CHEST CLINICAL HISTORY: Hypoxia. Dyspnea. Lower extremity edema. COMPARISON STUDY: Chest x-ray dated 05/19/2023. Chest CT dated 11/28/2020. FINDINGS: Thyroid: Imaged portions of the thyroid gland are normal in size and attenuatio n. Thoracic aorta: There is atherosclerotic calcification of the thoracic aorta, which is normal in caliber and demonstrates standard 3-vessel arch anatomy. No dissection is seen. Pulmonary vasculature: The main pulmonary arteries are dilated suggesting pulmonary artery hypertension. There are no filling defects identified in main, lobar, or segmental pulmonary branches to suggest pulmonary embolus. Evaluation of the distal segmental and subsegmental branches is degraded by motion artifact. Heart: A cardiac pacemaker is present in the left chest wall. The heart is enlarged and without pericardial effusion. The coronary arteries and mitral annulus are densely calcified. Lungs and pleural spaces: Evaluation of the lung parenchyma is degraded by motion artifact. Parenchymal scarring and architectural distortion is seen throughout both lungs. Multifocal patchy airspace consolidation is seen throughout both lungs. No pleural effusion is identified. The trachea and central airways are clear. Mediastinum: There are numerous mildly enlarged mediastinal lymph nodes. An AP window node measures 11 mm short axis. Prevascular nodes measure up to 10 mm short axis. Deirdre: Mildly enlarged hilar nodes measure up to 10 mm in short axis. Axillae: There is no axillary lymphadenopathy. Upper abdomen: The gallbladder surgically absent. Postoperative changes noted in the stomach. The spleen is markedly enlarged measuring at least 18.7 cm in length. The liver is enlarged. Nodularity of the hepatic surface contour indicates morphologic changes of cirrhosis. Skeletal structures: The skeletal structures are osteopenic. No lytic or blastic bony lesions are seen. Degenerative change is seen in the shoulders and spine. There is a mild an age indeterminant superior endplate compression deformity of T5. This is new from 2020. IMPRESSION: 1. There is no evidence of pulmonary embolus in the main, lobar, or segmental pulmonary arteries. 2. Cardiomegaly and cardiac pacemaker. 3. Multifocal airspace consolidation is seen throughout both lungs, and the the appearance favors an infectious/inflammatory pneumonitis. This may be viral. Pulmonary edema could appear similar. Clinical correlation will be essential and radiographic follow-up to resolution is recommended. 4. There is no pleural effusion. 5. Mildly enlarged mediastinal and hilar nodes are nonspecific and may be reactive. 6. The liver is enlarged with morphological change of cirrhosis. 7. Marked splenomegaly. 8. Mild and age indeterminant compression deformity of T5. Correlate for point tenderness. 9. Additional findings as above. Electronically signed by: Freddie Mae M.D. 05/19/2023 11:58 AM Chest X-Ray 05/19/23 11:00 XR chest 1V portable Comparison: Comparison is made to chest radiograph 02/27/2023 FINDINGS: Dual lead pacemaker is seen. Cardiomegaly is noted. Multifocal airspace opacities are seen. No evidence of pleural effusion or pneumothorax. IMPRESSION: Multifocal airspace opacities may represent atelectasis, pneumonia, and/or aspiration. Electronically signed by: Lito Carvalho M.D. 05/19/2023 11:22 AM ECG Additional Comments: EKG reviewed: 68 bpm, NSR. No acute ST changes Supervising Physician Co-Signing Physician Notes Ms. Bah is a a 67 yo F with a PMHx including but not limited to former smoker, ovarian cancer, SSS s/p PPM, chronic HFpEF, paroxysmal AFib (not on AC d/t hx of GIB and anemia), HTN, chronic hypoxic respiratory failure 2/2 pulmonary hypertension and ILD, h/o BERRY (CPAP intolerance)/nocturnal hypoxemia on home 2L O2 HS, pre-DM-II, NAFLD cirrhosis, hx esophageal varices, ovarian cancer s/p hysterectomy/incomplete chemotherapy, recurrent ESBL E. coli UTI on Fosfomycin suppression, history of C. difficile secondary to clindamycin, chronic anemia and thrombocytopenia. She presented d/t SOB x a few days. Pt reports short of breath with usual activity over the last few days, such as preparing meals. She usually uses O2 for sleep, but over the past few days has needed it during the day and turned it up to 3 LPM. This is associated with sleeping more, malaise, and generalized weakness. At home O2 was as low as 69% on room air. She denies BOX, f/c/n/v, sweats, cough, congestion, rhinorrhea, sore throat, CP, abdominal pain, and diarrhea. She was shocked to hear she has pna. She was not going to seek evaluation for her symptoms however today at wound care clinic she required 5 LPM O2 so they recommend she come in. ED course: VS notable for O2 75% on 2 LPM up to 96% on 6 L L/min. b/w notable for h/h 11.0/31.9, alk phos 128, remaining cbc, cmp, lipase wnl/unimpressive. Trop I 7.1, procalcitonin < 0.05 CXR and CTA chest notable for pna, possibly viral. Details above under imaging reports. Phys Exam: General: NAD, well nourished, non-toxic appearing Head: NC AT Eyes: anicteric sclera, no conjunctival injection Nose: normal, nares patent Mouth: MMM Neck: supple, trachea midline CV: RRR S1 S2 Pulm: b/l crackles and diminished breath sounds throughout, no wheezing or rhonchi Abd/GI: + BS, soft, NT, ND, no guarding : no dejesus Ext: trace b/l distal LE edema, normal peripheral pulses MSK: normal bulk and tone Neuro: moving all 4 extremities symmetrically, grossly intact Psych: pleasant mood and affect Skin: for the most part visible skin is warm, dry, and without rash. She has bruising on right fontana > left, and the left foot. She has dry peeling skin on th e bottoms of both feet with some mild lesions on her toes that are not infected appearing. She has a dressing on her left foot that was just applied at wound care clinic and not taken down. Pt not fully undressed for exam. # acute on chronic respiratory failure with hypoxia: CXR read as multifocal opacities compatible with PNA, atelectasis, or aspiration. CTA chest read as neg for PE but notable for Multifocal airspace consolidation is seen throughout both lungs, and the the appearance favors an infectious/inflammatory pneumonitis, possibly viral. Pulmonary edema could appear similar. continue Ceftriaxone and Doxycycline to cover for CAP, consider d/c abx if pt remains afebrile as this is more likely viral f/u blood and sputum cultures, and respiratory pathogen panel Incentive spirometry, duonebs Q4H PRN SOB or wheezing continue supplemental O2, wean as able, titrate as needed continue supportive care # HFpEF: no e/o exacerbation on exam, continue home regimen # paroxysmal afib: currently in NSR not on AC d/t hx of GIB and anemia # Elevated CA 19-9 level: H/o ovarian cancer status post surgery/incomplete chemotherapy, recently seen in surveillance [place] [facility] [place] 19-9 elevated at 169 on 05/05/[address] Marion who requested a CT abd/pelvis, ordered Rest per attested note above (12) HTN (hypertension) Hypertension type: unspecified Qualified Code(s): I10 - Essential (primary) hypertension (13) Depression Depression Type: unspecified Qualified Code(s): F32.9 - Major depressive disorder, single episode, unspecified
[2023-05-19] MEDS ORDERED: predniSONE 20 MG TAB PO STA (14:02)
[2023-05-19] MEDS ORDERED: CYCLOBENZAPRINE HCL 5 MG TAB PO PRN (14:03)
[2023-05-19] MEDS ORDERED: ALBUTEROL HFA 8 GM INHALER INH PRN (14:03)
[2023-05-19] MEDS ORDERED: hydrOXYzine HCl 25 MG TAB PO PRN (14:03)
[2023-05-19] MEDS ORDERED: OPTIRAY 320 100ml IV ONE (15:15)
[2023-05-19] MEDS ORDERED: POLYETHYLENE (MIRALAX) 17 GM PACK PO PRN (15:43)
[2023-05-19] MEDS ORDERED: ALBUT/IPRATROP 3MG/0.5MG NEB 3 ML VIAL NEB PRN (15:43)
--- NOTE | 2023-05-19 16:23 | CT Scan Report ---
CT SCAN OF THE ABDOMEN AND PELVIS WITH IV CONTRAST CLINICAL HISTORY: Elevated tumor markers. History of ovarian cancer. COMPARISON STUDY: Abdominal CT dated 01/16/2023. TECHNIQUE: Following the IV administration of 95 cc of Optiray 320, CT scan of the abdomen and pelvi s is performed from the lung bases to the proximal femora. Images are reviewed in the axial, sagittal , and coronal planes. IV contrast was administered without complication. A dose lowering technique wa s utilized adhering to the principles of ALARA. CT DOSE: 1488.10 mGy.cm FINDINGS: Lung bases: The heart is enlarged and and without pericardial effusion. Pacemaker leads are in place. Multifocal airspace consolidation is present at both lung bases with associated architectural distor tion. No pleural effusion is seen. Liver: The contrast-enhanced liver is enlarged, measuring 21.8 cm in length. Attenuation is heterogen eous. Nodularity of the surface contour indicates morphologic change of cirrhosis. There is no intrah epatic biliary ductal dilatation. A common bile duct stent is in place. Pneumobilia suggests patency of the stent. The hepatic veins and portal veins are patent. Gallbladder: Stones and gas are present within the gallbladder lumen. There is no CT evidence of acut e cholecystitis. Spleen: The spleen is enlarged measuring 18.9 cm in length. Pancreas: There is moderate fatty atrophy of the pancreas. Adrenal glands: Unremarkable. Kidneys: The contrast enhanced kidneys demonstrate mild cortical atrophy and are without hydronephros is. Foci of cortical scarring are present in both kidneys. The kidneys enhance symmetrically. Excrete d IV contrast fills the renal collecting system and ureters. This obscures known bilateral renal calc stephanie. Abdominal vasculature: The abdominal aorta is normal in course and caliber noting moderate atheroscle rotic calcification. Bowel: Postoperative changes noted involving the stomach. No bowel obstruction is seen. There is mild colonic diverticulosis without CT evidence of acute diverticulitis. Moderate fecal retention is note d throughout the colon. The appendix is not identified and reported surgically absent. Peritoneum: There is no intraperitoneal free air or abdominal ascites. There is evidence of previous ventral hernia repair. Lymphadenopathy: None. Pelvic viscera: The bladder is decompressed and filled with excreted IV contrast. The uterus is surgi stephanie absent. No adnexal lesion is seen. Skeletal structures: The skeletal structures are osteopenic. There is moderate to advanced lumbosacra l spondylosis. No lytic or blastic lesions are seen. IMPRESSION: 1. There is no evidence of metastatic disease in the abdomen or pelvis. 2. No acute infectious or inflammatory findings are identified in the abdomen or pelvis. 3. Multifocal airspace consolidation is again seen at both lung bases. 4. The common bile duct stent is new from previous. Pneumobilia and gas within the gallbladder sugges ts patency of the stent. 5. Cholelithiasis. 6. The liver is enlarged, heterogeneous, and cirrhotic in morphology. 7. Marked splenomegaly. 8. Excreted contrast within the renal collecting systems obscures known bilateral renal calculi. 9. Additional findings as above. ACT 112: Negative or not required by law. Electronically signed by: Freddie Mae M.D. 05/19/2023 4:21 PM
[2023-05-19 17:17] LABS: Adenovirus PCR Not Detected (NotDetected); Bordetella parapertussis PCR Not Detected (NotDetected); Bordetella pertussis PCR Not Detected (NotDetected); Chlamydia pneumoniae PCR Not Detected (NotDetected); Coronavirus 229E PCR Not Detected (NotDetected); Coronavirus CoV-2 (COVID19)PCR Not Detected (NotDetected); Coronavirus HKU1 PCR Not Detected (NotDetected); Coronavirus NL63 PCR Not Detected (NotDetected); Coronavirus OC43PCR Not Detected (NotDetected); Human Metapneumovirus PCR Not Detected (NotDetected); Influenza A PCR Not Detected (NotDetected); Influenza B PCR Not Detected (NotDetected); Mycoplasma pneumoniae PCR Not Detected (NotDetected); Parainfluenza Virus 1 PCR Not Detected (NotDetected); Parainfluenza Virus 2 PCR Not Detected (NotDetected); Parainfluenza Virus 3 PCR Not Detected (NotDetected); Parainfluenza Virus 4 PCR Not Detected (NotDetected); Respiratory Syncytial VirusPCR Not Detected (NotDetected); Rhinovirus/Enterovirus PCR Not Detected (NotDetected)
[2023-05-19] MEDS: ADVANCED PROBIOTIC 1250 MG CAPSULE PO SCH (17:58)
--- NOTE | 2023-05-19 18:06 | Electrocardiogram Report ---
Test Reason : Blood Pressure : / mmHG Vent. Rate : 068 BPM Atrial Rate : 068 BPM P-R Int : 132 ms QRS Dur : 084 ms QT Int : 404 ms P-R-T Axes : 030 -04 023 degrees QTc Int : 429 ms Normal sinus rhythm Moderate voltage criteria for LVH, may be normal variant Borderline ECG When compared with ECG of 27-FEB-2023 20:34, Sinus rhythm has replaced Electronic atrial pacemaker Nonspecific T wave abnormality no longer evident in Lateral leads Confirmed by Adolfo Dunn ([id number] on 05/19/2023 6:06:21 PM Referred By: Provider Outside Confirmed By:Erasmo Dunn
[2023-05-19] MEDS ORDERED: FLUORIDE DT SCH (21:00)
[2023-05-19] MEDS: DOCUSATE SODIUM 100 MG CAP PO SCH (21:06)
[2023-05-19] MEDS: ACETAMINOPHEN 325 MG TAB PO PRN (21:06)
[2023-05-19] MEDS: DOXYCYCLINE HYCLATE 100 MG in DEXTROSE 5% 100 ML IV SCH (21:06)
[2023-05-19] MEDS: HEPARIN SOD 5,000 UNIT/0.5 ML VIAL SQ SCH (21:08)
[2023-05-19] MEDS: LORazepam 0.5 MG TAB PO PRN (21:08)
[2023-05-19] MEDS: SOTALOL HCL 80 MG TAB PO SCH (21:09)
[2023-05-19] MEDS: GABAPENTIN 300 MG CAP PO SCH (21:09)
[2023-05-19] MEDS: PANTOprazole 40 MG TAB PO SCH (21:09)
[2023-05-20] MEDS: HEPARIN SOD 5,000 UNIT/0.5 ML VIAL SQ SCH ×3 (05:51→22:24)
[2023-05-20 06:40] LABS: Hematocrit (blood only) 32.7 % (37.0-47.0); Hemoglobin 10.1 g/dl (12.0-16.0); Mean Corpuscular Hemoglobin 28.7 pg (25.0-34.0); Mean Corpuscular Hgb Conc 30.9 g/dL (32.0-36.0); Mean Corpuscular Volume 92.9 fL (80.0-100.0); Mean Platelet Volume 10.1 fL (9.4-12.4); Platelet Count 140 K/uL (130-400); RDW Coefficient of Variation 20.8 % (11.5-14.5); RDW Standard Deviation 70.8 fL (36.4-46.3); Red Blood Count 3.52 M/uL (4.20-5.40); White Blood Count 5.68 K/ul (4.8-10.8)
[2023-05-20 06:54] LABS: BUN Creatinine Ratio 24.1 (10-20); Calcium 9.2 mg/dl (8.6-10.3); Creatinine Clr Calc Pharmacy 78.9 ml/min; Est GFR (African American) 83.4 ml/min; Est GFR (Non-African American) 71.9 ml/min
[2023-05-20] MEDS: SOTALOL HCL 80 MG TAB PO SCH ×2 (08:44→20:33)
[2023-05-20] MEDS: PANTOprazole 40 MG TAB PO SCH ×2 (08:44→20:32)
[2023-05-20] MEDS: GABAPENTIN 300 MG CAP PO SCH ×3 (08:45→20:32)
[2023-05-20] MEDS: DOCUSATE SODIUM 100 MG CAP PO SCH ×2 (08:45→20:32)
[2023-05-20] MEDS: ADVANCED PROBIOTIC 1250 MG CAPSULE PO SCH (08:46)
[2023-05-20] MEDS: hydroCHLOROthiazide 25 MG TAB PO SCH (08:46)
[2023-05-20] MEDS: SERTRALINE HCL 100 MG TABLET PO SCH (08:46)
[2023-05-20] MEDS: LORATADINE 10 MG TAB PO SCH (08:46)
[2023-05-20] MEDS: CHOLECALCIFEROL 1,000 UNITS 25 MCG TAB PO SCH (08:46)
[2023-05-20] MEDS: FOLIC ACID 1 MG TAB PO SCH (08:47)
[2023-05-20] MEDS: cefTRIAXone SODIUM 2,000 MG in DEXTROSE 5% 50 ML IV SCH (08:53)
[2023-05-20] MEDS: DOXYCYCLINE HYCLATE 100 MG in DEXTROSE 5% 100 ML IV SCH ×2 (09:28→20:32)
[2023-05-20] MEDS: predniSONE 20 MG TAB PO SCH (11:37)
--- NOTE | 2023-05-20 16:48 | Hospitalist Progress Note ---
Date of Service May 20, 2023 Assessment & Plan (1) Acute and chronic respiratory failure with hypoxia: (2) Multifocal pneumonia: (3) Interstitial lung disease: (4) Hematoma of right foot: (5) Chronic anemia: (6) Liver cirrhosis secondary to WEIR: (7) Elevated CA 19-9 level: (8) BERRY (obstructive sleep apnea): (9) Sick sinus syndrome: (10) Atrial fibrillation: (11) CKD (chronic kidney disease), stage III: (12) HTN (hypertension): (13) Depression: (14) Anxiety: (15) Obesity, morbid, BMI 40.0-49.9: Plan 67yo F with a PMH of chronic respiratory failure 2/2 pulmonary hypertension and ILD, h/o BERRY (CPAP intolerance)/nocturnal hypoxemia on home 2L O2 HS, SSS s/p PPM, paroxysmal atrial fibrillation not on anticoagulation secondary to GI bleed, hypertension, NAFLD cirrhosis, esophageal varices, ovarian cancer status post surgery/incomplete chemotherapy, recurrent ESBL E. coli UTI on Fosfomycin suppression Rx, history of C. difficile secondary to clindamycin, CRI (baseline creatinine 1.1), prediabetes, chronic anemia (baseline hemoglobin of 8), chronic thrombocytopenia, past tobacco abuse presented 05/19 with SOB that began a few days ago and was found to have acute on chronic hypoxic respiratory failure and multifocal pneumonia. She is being managed for the following: Acute on chronic hypoxic respiratory failure Multifocal pneumonia H/o ILD Sent from wound care clinic after noting hypoxic in 70s, improved to 95% on 6 L NC At presentation, Afebrile, no leukocytosis, procal WNL. Does not meet sepsis criteria, non-toxic in appearance Underlying ILD and pulm HTN, on 2L NC O2 at baseline with exertion and HS. Has been on prednisone taper for past month due to possible hemolytic anemia (see below) Chest CTA without evidence of pulmonary embolus in the main, lobar, or segmental pulmonary arteries. Multifocal airspace consolidation is seen throughout both lungs, and the the appearance favors an infectious/inflammatory pneumonitis. Continue Rocephin, doxycycline (avoid azithromycin due to drug-drug interaction with Sotalol) Viral resp PCR negative, sputum and blood cx pending Incentive spirometry, duonebs Q4H PRN SOB or wheezing Continue supplemental O2 (at 2L NC at baseline, currently requiring 6L), wean down as tolerated. Elevated CA 19-9 level H/o ovarian cancer status post surgery/incomplete chemotherapy, recently seen in surveillance by slot floor attendant onc at [facility] and CA 19-9 elevated at 169 on 05/05/[address] Marion who requested a CT abd/pelvis, no evidence of metastatic dz in the abd and pelvis. Hematoma of R foot: Following with wound care, h/o wound vac. Previously had CTA LE that ruled out DVT. Continue wound care Chronic anemia: Hgb 11 (improved from previous). On prednisone taper per Dr. 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 Continue at current dose of 20mg daily Paroxysmal atrial fibrillation : Continue sotalol BID, not on anticoagulation due to h/o GI bleed Mood disorder: Continue Zoloft, Ativan PRN SSS: S/p pacemaker placement NAFLD cirrhosis : Appears compensated, continue low sodium diet CKD III: Cr at baseline ~ 1. Continue to monitor with daily BMP BERRY: Intolerant to CPAP, uses 2L NC O2 HS DVT Ppx: SQ heparin Code status: FULL PCP: Christoph Admission and Anticipated Discharge Date Admission Date: May 19, 2023 Subjective Patient seen and examined at bedside as a follow-up of multifocal pneumonia, acute on chronic hypoxic respiratory failure. Patient was lying in bed, on 6 L oxygen via nasal cannula, NAD, reports no unusual cough, reports improving dyspnea on exertion, reports eating okay and moving bowels okay. Patient does not like to be put on salt restricting diet. Requesting regular diet, ordered. Patient denies fever/chills/chest pain. Physical Exam Physical Exam: GENERAL: Alert and oriented x3. NAD, on 6 L oxygen via nasal cannula HEENT: No pallor, no icterus. Pupils equal, round and reactive to light. Oral mucosa moist. NECK: No JVD, no neck masses. HEART: S1 and S2 heard. Regular rate and rhythm. No murmur, no gallop. RESPIRATORY SYSTEM: Normal AP diameter. No accessory muscle use. No wheezing, b/l crackles. ABDOMEN: Soft, bowel sounds present, nontender, no distention. CENTRAL NERVOUS SYSTEM: No facial droop. Speech is clear. Obeys simple commands. Moves extremities. EXTREMITIES: No edema, no erythema seen. RLE bruise over the leg noted. Results & Data Results & Data Vital Signs (Past 12 Hours) Vital Signs Temp Pulse Pulse Resp BP BP Pulse Ox 05/20/23 15:50 37 C 67 20 164/79 H 90 05/20/23 15:06 65 05/20/23 11:26 36.6 C 68 16 154/80 H 94 05/20/23 09:19 05/20/23 07:57 36.5 C 66 20 154/75 H 92 05/20/23 07:26 65 O2 Del Method O2 Flow Rate 05/20/23 15:50 Nasal Cannula 5 05/20/23 15:06 05/20/23 11:26 Nasal Cannula 6 05/20/23 09:19 Nasal Cannula 6 05/20/23 07:57 Nasal Cannula 6 05/20/23 07:26 (12) HTN (hypertension) Hypertension type: unspecified Qualified Code(s): I10 - Essential (primary) hypertension (13) Depression Depression Type: unspecified Qualified Code(s): F32.9 - Major depressive disorder, single episode, unspecified
[2023-05-20] MEDS: LORazepam 0.5 MG TAB PO PRN (22:27)
--- NOTE | 2023-05-21 02:31 | Communication Note ---
Date of Service: May 21, 2023 Made aware by RN of uncontrolled blood pressure. SBP 150s to 170s the last 24 hours. Cardiac rate 60s to 70s Patient asymptomatic as per RN. sodium 135, potassium 5 (05/20) AP Uncontrolled hypertension Hyponatremia, borderline hyperkalemia Add amlodipine to sotalol Hold HCTZ for now Will relay to AM provider.
[2023-05-21] MEDS: amLODIPine BESYLATE 5 MG TAB PO SCH (02:57)
[2023-05-21] MEDS: HEPARIN SOD 5,000 UNIT/0.5 ML VIAL SQ SCH ×3 (05:34→21:05)
[2023-05-21] MEDS: cefTRIAXone SODIUM 2,000 MG in DEXTROSE 5% 50 ML IV SCH (08:49)
[2023-05-21 08:50] LABS: Hematocrit (blood only) 34.3 % (37.0-47.0); Hemoglobin 10.9 g/dl (12.0-16.0); Mean Corpuscular Hemoglobin 28.6 pg (25.0-34.0); Mean Corpuscular Hgb Conc 31.8 g/dL (32.0-36.0); Mean Platelet Volume 11.7 fL (9.4-12.4); Platelet Count 164 K/uL (130-400); RDW Coefficient of Variation 20.4 % (11.5-14.5); RDW Standard Deviation 67.7 fL (36.4-46.3); Red Blood Count 3.81 M/uL (4.20-5.40); White Blood Count 5.94 K/ul (4.8-10.8)
[2023-05-21] MEDS: LORATADINE 10 MG TAB PO SCH (08:55)
[2023-05-21] MEDS: CHOLECALCIFEROL 1,000 UNITS 25 MCG TAB PO SCH (08:55)
[2023-05-21] MEDS: ADVANCED PROBIOTIC 1250 MG CAPSULE PO SCH (08:55)
[2023-05-21] MEDS: hydroCHLOROthiazide 25 MG TAB PO SCH (08:55)
[2023-05-21] MEDS: predniSONE 20 MG TAB PO SCH (08:55)
[2023-05-21] MEDS: DOCUSATE SODIUM 100 MG CAP PO SCH ×2 (08:55→21:04)
[2023-05-21] MEDS: GABAPENTIN 300 MG CAP PO SCH ×3 (08:55→21:04)
[2023-05-21] MEDS: FOLIC ACID 1 MG TAB PO SCH (08:55)
[2023-05-21] MEDS: SERTRALINE HCL 100 MG TABLET PO SCH (08:55)
[2023-05-21] MEDS: SOTALOL HCL 80 MG TAB PO SCH ×2 (08:56→21:05)
[2023-05-21] MEDS: PANTOprazole 40 MG TAB PO SCH ×2 (08:56→21:04)
[2023-05-21 09:11] LABS: Calcium 9.7 mg/dl (8.6-10.3); Creatinine Clr Calc Pharmacy 86.5 ml/min; Est GFR (African American) 94.3 ml/min; Est GFR (Non-African American) 81.3 ml/min; Potassium 4.3 mmol/L (3.5-5.1)
[2023-05-21] MEDS: LORazepam 0.5 MG TAB PO PRN ×2 (09:36→21:04)
[2023-05-21] MEDS: DOXYCYCLINE HYCLATE 100 MG in DEXTROSE 5% 100 ML IV SCH ×2 (10:06→21:04)
--- NOTE | 2023-05-21 18:11 | Hospitalist Progress Note ---
Date of Service May 21, 2023 Assessment & Plan (1) Acute and chronic respiratory failure with hypoxia: (2) Multifocal pneumonia: (3) Interstitial lung disease: (4) Hematoma of right foot: (5) Chronic anemia: (6) Liver cirrhosis secondary to WEIR: (7) Elevated CA 19-9 level: (8) BERRY (obstructive sleep apnea): (9) Sick sinus syndrome: (10) Atrial fibrillation: (11) CKD (chronic kidney disease), stage III: (12) HTN (hypertension): (13) Depression: (14) Anxiety: (15) Obesity, morbid, BMI 40.0-49.9: Plan 67yo F with a PMH of chronic respiratory failure 2/2 pulmonary hypertension and ILD, h/o BERRY (CPAP intolerance)/nocturnal hypoxemia on home 2L O2 HS, SSS s/p PPM, paroxysmal atrial fibrillation not on anticoagulation secondary to GI bleed, hypertension, NAFLD cirrhosis, esophageal varices, ovarian cancer status post surgery/incomplete chemotherapy, recurrent ESBL E. coli UTI on Fosfomycin suppression Rx, history of C. difficile secondary to clindamycin, CRI (baseline creatinine 1.1), prediabetes, chronic anemia (baseline hemoglobin of 8), chronic thrombocytopenia, past tobacco abuse presented 05/19 with SOB that began a few days ago and was found to have acute on chronic hypoxic respiratory failure and multifocal pneumonia. She is being managed for the following: Acute on chronic hypoxic respiratory failure Multifocal pneumonia H/o ILD Sent from wound care clinic after noting hypoxic in 70s, improved to 95% on 6 L NC At presentation, Afebrile, no leukocytosis, procal WNL. Does not meet sepsis criteria, non-toxic in appearance Underlying ILD and pulm HTN, on 2L NC O2 at baseline with exertion and HS. Has been on prednisone taper for past month due to possible hemolytic anemia (see below) Chest CTA without evidence of pulmonary embolus in the main, lobar, or segmental pulmonary arteries. Multifocal airspace consolidation is seen throughout both lungs, and the the appearance favors an infectious/inflammatory pneumonitis. Continue Rocephin, doxycycline (avoid azithromycin due to drug-drug interaction with Sotalol) Viral resp PCR negative, sputum and blood cx pending Incentive spirometry, duonebs Q4H PRN SOB or wheezing Continue supplemental O2 (at 2L NC at baseline, currently requiring 5L), wean down as tolerated. Elevated CA 19-9 level H/o ovarian cancer status post surgery/incomplete chemotherapy, recently seen in surveillance by plant guard onc at [facility] and CA 19-9 elevated at 169 on 05/05/[address] Marion who requested a CT abd/pelvis, no evidence of metastatic dz in the abd and pelvis. Hematoma of R foot: Following with wound care, h/o wound vac. Previously had CTA LE that ruled out DVT. Continue wound care Chronic anemia: Hgb 11 (improved from previous). On prednisone taper per Dr. 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 Continue at current dose of 20mg daily Paroxysmal atrial fibrillation : Continue sotalol BID, not on anticoagulation due to h/o GI bleed Mood disorder: Continue Zoloft, Ativan PRN SSS: S/p pacemaker placement NAFLD cirrhosis : Appears compensated, continue low sodium diet CKD III: Cr at baseline ~ 1. Continue to monitor with daily BMP BERRY: Intolerant to CPAP, uses 2L NC O2 HS DVT Ppx: SQ heparin Code status: FULL PCP: Christoph Dispo: pt/ot. Admission and Anticipated Discharge Date Admission Date: May 19, 2023 Subjective Patient seen and examined at bedside as a follow-up of multifocal pneumonia, acute on chronic hypoxic respiratory failure. Patient was lying in bed, on 5 L oxygen via nasal cannula, NAD, reports no unusual cough, reports improving dyspnea on exertion, reports eating okay and moving bowels okay. Patient does not like to be put on salt restricting diet. has been taking reg diet. BP slightly high likely 2/2 steroid use and dietary indiscretion, will up titrate bp meds. Patient denies fever/chills/chest pain. NO further loose stool since yesterday afternoon. Physical Exam Physical Exam: GENERAL: Alert and oriented x3. NAD, on 5 L oxygen via nasal cannula HEENT: No pallor, no icterus. Pupils equal, round and reactive to light. Oral mucosa moist. NECK: No JVD, no neck masses. HEART: S1 and S2 heard. Regular rate and rhythm. No murmur, no gallop. RESPIRATORY SYSTEM: Normal AP diameter. No accessory muscle use. No wheezing, b/l crackles. ABDOMEN: Soft, bowel sounds present, nontender, no distention. CENTRAL NERVOUS SYSTEM: No facial droop. Speech is clear. Obeys simple commands. Moves extremities. EXTREMITIES: No edema, no erythema seen. RLE bruise over the leg noted. Results & Data Results & Data Vital Signs (Past 12 Hours) Vital Signs Temp Pulse Pulse Pulse Resp BP Pulse Ox 05/21/23 17:48 91 05/21/23 14:00 62 05/21/23 15:50 36.6 C 65 18 132/67 95 05/21/23 13:44 05/21/23 10:00 05/21/23 07:46 36.4 C L 63 18 151/79 H 96 Pulse Ox Pulse Ox Pulse Ox Pulse Ox O2 Del Method O2 Flow Rate O2 Flow Rate 05/21/23 17:48 Nasal Cannula 5 05/21/23 14:00 05/21/23 15:50 High Flow Nasal Cannula 5 05/21/23 13:44 90 90 87 L 77 L 5 05/21/23 10:00 Nasal Cannula 5 05/21/23 07:46 Room Air 5 O2 Flow Rate O2 Flow Rate O2 Flow Rate 05/21/23 17:48 05/21/23 14:00 05/21/23 15:50 05/21/23 13:44 5 5 5 05/21/23 10:00 05/21/23 07:46 (12) HTN (hypertension) Hypertension type: unspecified Qualified Code(s): I10 - Essential (primary) hypertension (13) Depression Depression Type: unspecified Qualified Code(s): F32.9 - Major depressive disorder, single episode, unspecified
[2023-05-22] MEDS: HEPARIN SOD 5,000 UNIT/0.5 ML VIAL SQ SCH ×3 (05:22→20:21)
[2023-05-22 07:28] LABS: Hematocrit (blood only) 32.9 % (37.0-47.0); Hemoglobin 10.6 g/dl (12.0-16.0); Mean Corpuscular Hemoglobin 28.6 pg (25.0-34.0); Mean Corpuscular Hgb Conc 32.2 g/dL (32.0-36.0); Mean Corpuscular Volume 88.7 fL (80.0-100.0); Mean Platelet Volume 10.9 fL (9.4-12.4); Platelet Count 164 K/uL (130-400); RDW Coefficient of Variation 20.5 % (11.5-14.5); RDW Standard Deviation 66.7 fL (36.4-46.3); Red Blood Count 3.71 M/uL (4.20-5.40); White Blood Count 5.96 K/ul (4.8-10.8)
[2023-05-22 07:51] LABS: BUN Creatinine Ratio 32.9 (10-20); Calcium 9.3 mg/dl (8.6-10.3); Creatinine Clr Calc Pharmacy 76.4 ml/min; Est GFR (Non-African American) 69.9 ml/min; Potassium 3.8 mmol/L (3.5-5.1)
[2023-05-22] MEDS: GABAPENTIN 300 MG CAP PO SCH ×3 (09:10→20:22)
[2023-05-22] MEDS: SERTRALINE HCL 100 MG TABLET PO SCH (09:10)
[2023-05-22] MEDS: PANTOprazole 40 MG TAB PO SCH ×2 (09:10→20:22)
[2023-05-22] MEDS: predniSONE 20 MG TAB PO SCH (09:10)
[2023-05-22] MEDS: SOTALOL HCL 80 MG TAB PO SCH ×2 (09:10→20:22)
[2023-05-22] MEDS: amLODIPine BESYLATE 5 MG TAB PO SCH (09:11)
[2023-05-22] MEDS: LORATADINE 10 MG TAB PO SCH (09:12)
[2023-05-22] MEDS: CHOLECALCIFEROL 1,000 UNITS 25 MCG TAB PO SCH (09:12)
[2023-05-22] MEDS: FOLIC ACID 1 MG TAB PO SCH (09:13)
[2023-05-22] MEDS: hydroCHLOROthiazide 25 MG TAB PO SCH (09:13)
[2023-05-22] MEDS: DOCUSATE SODIUM 100 MG CAP PO SCH ×2 (09:13→20:22)
[2023-05-22] MEDS: ADVANCED PROBIOTIC 1250 MG CAPSULE PO SCH (09:13)
[2023-05-22] MEDS: LORazepam 0.5 MG TAB PO PRN ×2 (09:18→20:31)
[2023-05-22] MEDS: cefTRIAXone SODIUM 2,000 MG in DEXTROSE 5% 50 ML IV SCH (09:25)
[2023-05-22] MEDS: DOXYCYCLINE HYCLATE 100 MG in DEXTROSE 5% 100 ML IV SCH ×2 (10:46→20:31)
--- NOTE | 2023-05-22 15:48 | Hospitalist Progress Note ---
Date of Service May 22, 2023 Assessment & Plan (1) Acute and chronic respiratory failure with hypoxia: (2) Multifocal pneumonia: (3) Interstitial lung disease: (4) Hematoma of right foot: (5) Chronic anemia: (6) Liver cirrhosis secondary to WEIR: (7) Elevated CA 19-9 level: (8) BERRY (obstructive sleep apnea): (9) Sick sinus syndrome: (10) Atrial fibrillation: (11) CKD (chronic kidney disease), stage III: (12) HTN (hypertension): (13) Depression: (14) Anxiety: (15) Obesity, morbid, BMI 40.0-49.9: Plan 67yo F with a PMH of chronic respiratory failure 2/2 pulmonary hypertension and ILD, h/o BERRY (CPAP intolerance)/nocturnal hypoxemia on home 2L O2 HS, SSS s/p PPM, paroxysmal atrial fibrillation not on anticoagulation secondary to GI bleed, hypertension, NAFLD cirrhosis, esophageal varices, ovarian cancer status post surgery/incomplete chemotherapy, recurrent ESBL E. coli UTI on Fosfomycin suppression Rx, history of C. difficile secondary to clindamycin, CRI (baseline creatinine 1.1), prediabetes, chronic anemia (baseline hemoglobin of 8), chronic thrombocytopenia, past tobacco abuse presented 05/19 with SOB that began a few days ago and was found to have acute on chronic hypoxic respiratory failure and multifocal pneumonia. She is being managed for the following: Acute on chronic hypoxic respiratory failure Multifocal pneumonia H/o ILD Sent from wound care clinic after noting hypoxic in 70s, improved to 95% on 6 L NC At presentation, Afebrile, no leukocytosis, procal WNL. Does not meet sepsis criteria, non-toxic in appearance Underlying ILD and pulm HTN, on 2L NC O2 at baseline with exertion and HS. Has been on prednisone taper for past month due to possible hemolytic anemia (see below) Chest CTA without evidence of pulmonary embolus in the main, lobar, or segmental pulmonary arteries. Multifocal airspace consolidation is seen throughout both lungs, and the the appearance favors an infectious/inflammatory pneumonitis. Continue Rocephin, doxycycline (avoid azithromycin due to drug-drug interaction with Sotalol) Viral resp PCR negative, sputum and blood cx pending Incentive spirometry, duonebs Q4H PRN SOB or wheezing Continue supplemental O2 (at 2L NC at baseline, currently requiring 5L), wean down as tolerated. O2 requirement not much improving, will get f/u CXR in AM. Elevated CA 19-9 level H/o ovarian cancer status post surgery/incomplete chemotherapy, recently seen in surveillance by regulatory affairs specialist onc at [facility] and CA 19-9 elevated at 169 on 05/05/[address] Frey who requested a CT abd/pelvis, no evidence of metastatic dz in the abd and pelvis. Hematoma of R foot: Following with wound care, h/o wound vac. Previously had CTA LE that ruled out DVT. Continue wound care Chronic anemia: Hgb 11 (improved from previous). On prednisone taper per Dr. 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 Continue at current dose of 20mg daily, f/u w/ dr frey on dc for ongoing taper. Paroxysmal atrial fibrillation : Continue sotalol BID, not on anticoagulation due to h/o GI bleed Mood disorder: Continue Zoloft, Ativan PRN SSS: S/p pacemaker placement NAFLD cirrhosis : Appears compensated, continue low sodium diet if patient agreeable. CKD III: Cr at baseline ~ 1. Continue to monitor with daily BMP BERRY: Intolerant to CPAP, uses 2L NC O2 HS DVT Ppx: SQ heparin Code status: FULL PCP: Christoph Dispo: pt/ot. likely snf. needs reeval. Admission and Anticipated Discharge Date Admission Date: May 19, 2023 Subjective Patient seen and examined at bedside as a follow-up of multifocal pneumonia, acute on chronic hypoxic respiratory failure. Patient was sitting up in chair, on 5 L oxygen via nasal cannula, NAD, reports no unusual cough, performed poorly w/ 2 step test today, will likely need rehab/snf, reports eating okay and moving bowels okay, no diarrhea per pt. Patient does not like to be put on salt restricting diet. has been taking reg diet. BP slightly high likely 2/2 steroid use and dietary indiscretion, will up titrate bp meds. Patient denies fever/chills/chest pain. Physical Exam Physical Exam: GENERAL: Alert and oriented x3. NAD, on 5 L oxygen via nasal cannula HEENT: No pallor, no icterus. Pupils equal, round and reactive to light. Oral mucosa moist. NECK: No JVD, no neck masses. HEART: S1 and S2 heard. Regular rate and rhythm. No murmur, no gallop. RESPIRATORY SYSTEM: Normal AP diameter. No accessory muscle use. No wheezing, b/l crackles. ABDOMEN: Soft, bowel sounds present, nontender, no distention. CENTRAL NERVOUS SYSTEM: No facial droop. Speech is clear. Obeys simple commands. Moves extremities. EXTREMITIES: No edema, no erythema seen. RLE bruise over the leg noted. Results & Data Results & Data Vital Signs (Past 12 Hours) Vital Signs Temp Pulse Pulse Pulse Pulse Pulse Pulse 05/22/23 15:11 37.1 C 72 05/22/23 07:15 64 05/22/23 11:32 36.8 C 70 05/22/23 11:08 05/22/23 10:01 82 84 83 73 05/22/23 07:27 36.6 C 67 Pulse Pulse Resp Resp Resp Resp Resp 05/22/23 15:11 20 05/22/23 07:15 05/22/23 11:32 16 05/22/23 11:08 05/22/23 10:01 72 72 22 22 22 18 05/22/23 07:27 20 Resp Resp BP BP Pulse Ox Pulse Ox Pulse Ox 05/22/23 15:11 131/65 89 L 05/22/23 07:15 05/22/23 11:32 133/76 86 L 05/22/23 11:08 05/22/23 10:01 18 18 83 L 85 L 05/22/23 07:27 150/66 H 94 Pulse Ox Pulse Ox Pulse Ox Pulse Ox O2 Del Method O2 Flow Rate O2 Flow Rate 05/22/23 15:11 Nasal Cannula 4 05/22/23 07:15 05/22/23 11:32 Nasal Cannula 3 05/22/23 11:08 Nasal Cannula 5 05/22/23 10:01 88 L 86 L 90 79 L 3 05/22/23 07:27 Nasal Cannula 5 O2 Flow Rate O2 Flow Rate O2 Flow Rate O2 Flow Rate 05/22/23 15:11 05/22/23 07:15 05/22/23 11:32 05/22/23 11:08 05/22/23 10:01 4 6 2 3 05/22/23 07:27 (12) HTN (hypertension) Hypertension type: unspecified Qualified Code(s): I10 - Essential (primary) hypertension (13) Depression Depression Type: unspecified Qualified Code(s): F32.9 - Major depressive disorder, single episode, unspecified
[2023-05-22] MEDS: ACETAMINOPHEN 325 MG TAB PO PRN (23:24)
[2023-05-23] MEDS: HEPARIN SOD 5,000 UNIT/0.5 ML VIAL SQ SCH ×3 (04:49→21:09)
--- NOTE | 2023-05-23 08:13 | XRay Report ---
XR chest 1V portable HISTORY: Shortness of breath. COMPARISON: Chest 05/19/2023. FINDINGS: No pneumothorax. No pleural effusions. The cardiac silhouette remains mildly enlarged. Is l eft-sided dual-chamber pacemaker. Epigastric surgical clips are again noted. There are low lung volum es. Multifocal bilateral airspace opacities and interstitial thickening have slightly improved. IMPRESSION: Slight improvement in the multifocal bilateral airspace opacities and interstitial thickening. ACT 112: Negative or not required by law. Electronically signed by: Karthik Cantu M.D. 05/23/2023 8:12 AM
[2023-05-23] MEDS: DOCUSATE SODIUM 100 MG CAP PO SCH ×2 (08:31→21:09)
[2023-05-23] MEDS: PANTOprazole 40 MG TAB PO SCH ×2 (08:31→21:09)
[2023-05-23] MEDS: amLODIPine BESYLATE 5 MG TAB PO SCH (08:32)
[2023-05-23] MEDS: SERTRALINE HCL 100 MG TABLET PO SCH (08:32)
[2023-05-23] MEDS: hydroCHLOROthiazide 25 MG TAB PO SCH (08:33)
[2023-05-23] MEDS: GABAPENTIN 300 MG CAP PO SCH ×3 (08:33→21:10)
[2023-05-23] MEDS: SOTALOL HCL 80 MG TAB PO SCH ×2 (08:33→21:09)
[2023-05-23] MEDS: ADVANCED PROBIOTIC 1250 MG CAPSULE PO SCH (08:33)
[2023-05-23] MEDS: LORATADINE 10 MG TAB PO SCH (08:34)
[2023-05-23] MEDS: CHOLECALCIFEROL 1,000 UNITS 25 MCG TAB PO SCH (08:34)
[2023-05-23] MEDS: predniSONE 20 MG TAB PO SCH (08:34)
[2023-05-23] MEDS: FOLIC ACID 1 MG TAB PO SCH (08:34)
[2023-05-23] MEDS: LORazepam 0.5 MG TAB PO PRN ×2 (08:45→21:09)
[2023-05-23] MEDS: cefTRIAXone SODIUM 2,000 MG in DEXTROSE 5% 50 ML IV SCH (08:55)
[2023-05-23] MEDS: DOXYCYCLINE HYCLATE 100 MG in DEXTROSE 5% 100 ML IV SCH ×2 (09:36→21:10)
--- NOTE | 2023-05-23 17:25 | Hospitalist Progress Note ---
Date of Service May 23, 2023 Assessment & Plan (1) Acute and chronic respiratory failure with hypoxia: (2) Multifocal pneumonia: (3) Interstitial lung disease: (4) Hematoma of right foot: (5) Chronic anemia: (6) Liver cirrhosis secondary to WEIR: (7) Elevated CA 19-9 level: (8) BERRY (obstructive sleep apnea): (9) Sick sinus syndrome: (10) Atrial fibrillation: (11) CKD (chronic kidney disease), stage III: (12) HTN (hypertension): (13) Depression: (14) Anxiety: (15) Obesity, morbid, BMI 40.0-49.9: Plan 67yo F with a PMH of chronic respiratory failure 2/2 pulmonary hypertension and ILD, h/o BERRY (CPAP intolerance)/nocturnal hypoxemia on home 2L O2 HS, SSS s/p PPM, paroxysmal atrial fibrillation not on anticoagulation secondary to GI bleed, hypertension, NAFLD cirrhosis, esophageal varices, ovarian cancer status post surgery/incomplete chemotherapy, recurrent ESBL E. coli UTI on Fosfomycin suppression Rx, history of C. difficile secondary to clindamycin, CRI (baseline creatinine 1.1), prediabetes, chronic anemia (baseline hemoglobin of 8), chronic thrombocytopenia, past tobacco abuse presented 05/19 with SOB that began a few days ago and was found to have acute on chronic hypoxic respiratory failure and multifocal pneumonia. She is being managed for the following: Acute on chronic hypoxic respiratory failure Multifocal pneumonia H/o ILD Sent from wound care clinic after noting hypoxic in 70s, improved to 95% on 6 L NC At presentation, Afebrile, no leukocytosis, procal WNL. Does not meet sepsis criteria, non-toxic in appearance Underlying ILD and pulm HTN, on 2L NC O2 at baseline with exertion and HS. Has been on prednisone taper for past month due to possible hemolytic anemia (see below) Chest CTA without evidence of pulmonary embolus in the main, lobar, or segmental pulmonary arteries. Multifocal airspace consolidation is seen throughout both lungs, and the the appearance favors an infectious/inflammatory pneumonitis. Continue Rocephin, doxycycline (avoid azithromycin due to drug-drug interaction with Sotalol) Viral resp PCR negative, sputum and blood cx pending Incentive spirometry, duonebs Q4H PRN SOB or wheezing Continue supplemental O2 (at 2L NC at baseline, currently requiring 5L), wean down as tolerated. O2 requirement slowly coming down, repeat CXR w/ improvement. Elevated CA 19-9 level H/o ovarian cancer status post surgery/incomplete chemotherapy, recently seen in surveillance [place] search analyst [place] [facility] [place] 19-9 elevated at 169 on 05/05/[address] Frey who requested a CT abd/pelvis, no evidence of metastatic dz in the abd and pelvis. Hematoma of R foot: Following with wound care, h/o wound vac. Previously had CTA LE that ruled out DVT. Continue wound care Chronic anemia: Hgb 11 (improved from previous). On prednisone taper per Dr. 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 Continue at current dose of 20mg daily, f/u w/ dr frey on dc for ongoing taper. Paroxysmal atrial fibrillation : Continue sotalol BID, not on anticoagulation due to h/o GI bleed Mood disorder: Continue Zoloft, Ativan PRN SSS: S/p pacemaker placement NAFLD cirrhosis : Appears compensated, continue low sodium diet if patient agreeable. CKD III: Cr at baseline ~ 1. Continue to monitor with daily BMP BERRY: Intolerant to CPAP, uses 2L NC O2 HS DVT Ppx: SQ heparin Code status: FULL PCP: Christoph Dispo: pt/ot. likely snf. needs pt/ot reeval. Admission and Anticipated Discharge Date Admission Date: May 19, 2023 Subjective Patient seen and examined at bedside as a follow-up of multifocal pneumonia, acute on chronic hypoxic respiratory failure. Patient was sitting up in chair, on 4 L oxygen via nasal cannula, NAD, reports no unusual cough, performed poorly w/ 2 step test 05/22, will likely need rehab/snf, reports eating okay and moving bowels okay, no diarrhea per pt. Patient does not like to be put on salt restricting diet. has been taking reg diet. BP slightly high likely 2/2 steroid use and dietary indiscretion, will up titrate bp meds. Patient denies fever/chills/chest pain. Physical Exam Physical Exam: GENERAL: Alert and oriented x3. NAD, on 4 L oxygen via nasal cannula HEENT: No pallor, no icterus. Pupils equal, round and reactive to light. Oral mucosa moist. NECK: No JVD, no neck masses. HEART: S1 and S2 heard. Regular rate and rhythm. No murmur, no gallop. RESPIRATORY SYSTEM: Normal AP diameter. No accessory muscle use. No wheezing, b/l crackles. ABDOMEN: Soft, bowel sounds present, nontender, no distention. CENTRAL NERVOUS SYSTEM: No facial droop. Speech is clear. Obeys simple commands. Moves extremities. EXTREMITIES: No edema, no erythema seen. RLE bruise over the leg noted. Results & Data Results & Data Vital Signs (Past 12 Hours) Vital Signs Temp Pulse Pulse Resp BP BP Pulse Ox 05/23/23 16:19 36.6 C 70 20 137/73 93 05/23/23 13:33 68 20 90 05/23/23 07:15 64 05/23/23 11:23 36.7 C 62 20 136/76 92 05/23/23 07:46 05/23/23 07:35 36.4 C L 62 20 143/81 H 93 O2 Del Method O2 Flow Rate 05/23/23 16:19 Nasal Cannula 4 05/23/23 13:33 Nasal Cannula 5 05/23/23 07:15 05/23/23 11:23 Nasal Cannula 4 05/23/23 07:46 Nasal Cannula 4 05/23/23 07:35 Nasal Cannula 4 (12) HTN (hypertension) Hypertension type: unspecified Qualified Code(s): I10 - Essential (primary) hypertension (13) Depression Depression Type: unspecified Qualified Code(s): F32.9 - Major depressive disorder, single episode, unspecified
[2023-05-23] MEDS: ACETAMINOPHEN 325 MG TAB PO PRN (23:41)
[2023-05-24] MEDS: HEPARIN SOD 5,000 UNIT/0.5 ML VIAL SQ SCH ×3 (05:16→21:05)
[2023-05-24] MEDS: cefTRIAXone SODIUM 2,000 MG in DEXTROSE 5% 50 ML IV SCH (08:51)
[2023-05-24] MEDS: GABAPENTIN 300 MG CAP PO SCH ×3 (08:51→21:06)
[2023-05-24] MEDS: PANTOprazole 40 MG TAB PO SCH ×2 (08:51→21:06)
[2023-05-24] MEDS: SOTALOL HCL 80 MG TAB PO SCH ×2 (08:51→21:06)
[2023-05-24] MEDS: amLODIPine BESYLATE 5 MG TAB PO SCH (08:52)
[2023-05-24] MEDS: DOCUSATE SODIUM 100 MG CAP PO SCH ×2 (08:52→21:06)
[2023-05-24] MEDS: SERTRALINE HCL 100 MG TABLET PO SCH (08:53)
[2023-05-24] MEDS: CHOLECALCIFEROL 1,000 UNITS 25 MCG TAB PO SCH (08:53)
[2023-05-24] MEDS: predniSONE 20 MG TAB PO SCH (08:53)
[2023-05-24] MEDS: hydroCHLOROthiazide 25 MG TAB PO SCH (08:53)
[2023-05-24] MEDS: ADVANCED PROBIOTIC 1250 MG CAPSULE PO SCH (08:53)
[2023-05-24] MEDS: FOLIC ACID 1 MG TAB PO SCH (08:53)
[2023-05-24] MEDS: LORATADINE 10 MG TAB PO SCH (08:53)
[2023-05-24] MEDS: LORazepam 0.5 MG TAB PO PRN (11:15)
[2023-05-24] MEDS: ACETAMINOPHEN 325 MG TAB PO PRN (11:58)
[2023-05-24] MEDS: DOXYCYCLINE HYCLATE 100 MG in DEXTROSE 5% 100 ML IV SCH ×2 (11:59→21:18)
[2023-05-24] MEDS ORDERED: SODIUM CHLORIDE 0.65% NA SOLN 45 ML (OCEAN) PRN (16:22)
--- NOTE | 2023-05-24 16:23 | Hospitalist Progress Note ---
Date of Service May 24, 2023 Assessment & Plan (1) Acute and chronic respiratory failure with hypoxia: (2) Multifocal pneumonia: (3) Interstitial lung disease: (4) Hematoma of right foot: (5) Chronic anemia: (6) Liver cirrhosis secondary to WEIR: (7) Elevated CA 19-9 level: (8) BERRY (obstructive sleep apnea): (9) Sick sinus syndrome: (10) Atrial fibrillation: (11) CKD (chronic kidney disease), stage III: (12) HTN (hypertension): (13) Depression: (14) Anxiety: (15) Obesity, morbid, BMI 40.0-49.9: Plan 67yo F with a PMH of chronic respiratory failure 2/2 pulmonary hypertension and ILD, h/o BERRY (CPAP intolerance)/nocturnal hypoxemia on home 2L O2 HS, SSS s/p PPM, paroxysmal atrial fibrillation not on anticoagulation secondary to GI bleed, hypertension, NAFLD cirrhosis, esophageal varices, ovarian cancer status post surgery/incomplete chemotherapy, recurrent ESBL E. coli UTI on Fosfomycin suppression Rx, history of C. difficile secondary to clindamycin, CRI (baseline creatinine 1.1), prediabetes, chronic anemia (baseline hemoglobin of 8), chronic thrombocytopenia, past tobacco abuse presented 05/19 with SOB that began a few days ago and was found to have acute on chronic hypoxic respiratory failure and multifocal pneumonia. She is being managed for the following: Acute on chronic hypoxic respiratory failure Multifocal pneumonia H/o ILD Sent from wound care clinic after noting hypoxic in 70s, improved to 95% on 6 L NC At presentation, Afebrile, no leukocytosis, procal WNL. Does not meet sepsis criteria, non-toxic in appearance Underlying ILD and pulm HTN, on 2L NC O2 at baseline with exertion and HS. Has been on prednisone taper for past month due to possible hemolytic anemia (see below) Chest CTA without evidence of pulmonary embolus in the main, lobar, or segmental pulmonary arteries. Multifocal airspace consolidation is seen throughout both lungs, and the the appearance favors an infectious/inflammatory pneumonitis. Continue Rocephin, doxycycline (avoid azithromycin due to drug-drug interaction with Sotalol) Viral resp PCR negative, sputum and blood cx pending Incentive spirometry, duonebs Q4H PRN SOB or wheezing Continue supplemental O2 (at 2L NC at baseline, currently requiring 4L), wean down as tolerated. O2 requirement slowly coming down, repeat CXR w/ improvement. Elevated CA 19-9 level H/o ovarian cancer status post surgery/incomplete chemotherapy, recently seen in surveillance by systems consultant onc at [facility] [place] and CA 19-9 elevated at 169 on 05/05/[address] Frey who requested a CT abd/pelvis, no evidence of metastatic dz in the abd and pelvis. Hematoma of R foot: Following with wound care, h/o wound vac. Previously had CTA LE that ruled out DVT. Continue wound care Chronic anemia: Hgb 11 (improved from previous). On prednisone taper per Dr. 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 Continue at current dose of 20mg daily, f/u w/ dr frey on dc for ongoing taper. Paroxysmal atrial fibrillation : Continue sotalol BID, not on anticoagulation due to h/o GI bleed Mood disorder: Continue Zoloft, Ativan PRN SSS: S/p pacemaker placement NAFLD cirrhosis : Appears compensated, continue low sodium diet if patient agreeable. CKD III: Cr at baseline ~ 1. Continue to monitor with daily BMP BERRY: Intolerant to CPAP, uses 2L NC O2 HS DVT Ppx: SQ heparin Code status: FULL PCP: Christoph Dispo: pt/ot. likely snf. needs pt/ot re-eval. Admission and Anticipated Discharge Date Admission Date: May 19, 2023 Subjective Patient seen and examined at bedside as a follow-up of multifocal pneumonia, acute on chronic hypoxic respiratory failure. Patient was sitting up in chair, on 4 L oxygen via nasal cannula, NAD, reports no unusual cough, performed poorly w/ 2 step test 05/22, will likely need rehab/snf, reports eating okay and moving bowels okay, no diarrhea per pt. Today reports improving strength and starting to feel better. Patient does not like to be put on salt restricting diet. has been taking reg diet. BP slightly high likely 2/2 steroid use and dietary indiscretion, will up titrate bp meds. Patient denies fever/chills/chest pain. Physical Exam Physical Exam: GENERAL: Alert and oriented x3. NAD, on 4 L oxygen via nasal cannula HEENT: No pallor, no icterus. Pupils equal, round and reactive to light. Oral mucosa moist. NECK: No JVD, no neck masses. HEART: S1 and S2 heard. Regular rate and rhythm. No murmur, no gallop. RESPIRATORY SYSTEM: Normal AP diameter. No accessory muscle use. No wheezing, b/l crackles. ABDOMEN: Soft, bowel sounds present, nontender, no distention. CENTRAL NERVOUS SYSTEM: No facial droop. Speech is clear. Obeys simple commands. Moves extremities. EXTREMITIES: No edema, no erythema seen. RLE bruise over the leg noted. Results & Data Results & Data Vital Signs (Past 12 Hours) Vital Signs Temp Pulse Pulse Resp BP Pulse Ox O2 Del Method 05/24/23 15:37 36.9 C 65 20 131/73 96 Nasal Cannula 05/24/23 11:33 36.7 C 64 20 133/79 93 Nasal Cannula 05/24/23 08:00 Nasal Cannula 05/24/23 07:39 36.4 C L 64 20 152/79 H 92 Nasal Cannula 05/24/23 07:18 65 O2 Flow Rate 05/24/23 15:37 4 05/24/23 11:33 4 05/24/23 08:00 4 05/24/23 07:39 4 05/24/23 07:18 (12) HTN (hypertension) Hypertension type: unspecified Qualified Code(s): I10 - Essential (primary) hypertension (13) Depression Depression Type: unspecified Qualified Code(s): F32.9 - Major depressive disorder, single episode, unspecified
[2023-05-25] MEDS: HEPARIN SOD 5,000 UNIT/0.5 ML VIAL SQ SCH ×3 (05:30→21:02)
[2023-05-25 07:02] LABS: Hematocrit (blood only) 30.4 % (37.0-47.0); Hemoglobin 9.8 g/dl (12.0-16.0); Mean Corpuscular Hemoglobin 28.8 pg (25.0-34.0); Mean Corpuscular Hgb Conc 32.2 g/dL (32.0-36.0); Mean Corpuscular Volume 89.4 fL (80.0-100.0); Mean Platelet Volume 10.5 fL (9.4-12.4); Platelet Count 140 K/uL (130-400); RDW Coefficient of Variation 19.9 % (11.5-14.5); RDW Standard Deviation 65.4 fL (36.4-46.3); White Blood Count 5.57 K/ul (4.8-10.8)
[2023-05-25] MEDS: ACETAMINOPHEN 325 MG TAB PO PRN (07:54)
[2023-05-25] MEDS: PANTOprazole 40 MG TAB PO SCH ×2 (07:54→20:37)
[2023-05-25] MEDS: DOCUSATE SODIUM 100 MG CAP PO SCH ×2 (07:54→20:37)
[2023-05-25] MEDS: amLODIPine BESYLATE 5 MG TAB PO SCH (07:55)
[2023-05-25] MEDS: SOTALOL HCL 80 MG TAB PO SCH ×2 (07:55→20:37)
[2023-05-25] MEDS: predniSONE 20 MG TAB PO SCH (07:55)
[2023-05-25] MEDS: GABAPENTIN 300 MG CAP PO SCH ×3 (07:55→20:37)
[2023-05-25] MEDS: ADVANCED PROBIOTIC 1250 MG CAPSULE PO SCH (07:56)
[2023-05-25] MEDS: FOLIC ACID 1 MG TAB PO SCH (07:56)
[2023-05-25] MEDS: CHOLECALCIFEROL 1,000 UNITS 25 MCG TAB PO SCH (07:56)
[2023-05-25] MEDS: SERTRALINE HCL 100 MG TABLET PO SCH (07:56)
[2023-05-25] MEDS: hydroCHLOROthiazide 25 MG TAB PO SCH (07:56)
[2023-05-25] MEDS: LORATADINE 10 MG TAB PO SCH (07:56)
[2023-05-25] MEDS: cefTRIAXone SODIUM 2,000 MG in DEXTROSE 5% 50 ML IV SCH (08:32)
[2023-05-25] MEDS: DOXYCYCLINE HYCLATE 100 MG in DEXTROSE 5% 100 ML IV SCH ×2 (09:13→20:50)
[2023-05-25] MEDS: LORazepam 0.5 MG TAB PO PRN ×2 (14:00→22:28)
[2023-05-25] MEDS ORDERED: IBUPROFEN 200 MG TAB PO ONE ×2 (15:24→16:06)
--- NOTE | 2023-05-25 16:36 | Hospitalist Progress Note ---
Date of Service May 25, 2023 Assessment & Plan (1) Acute and chronic respiratory failure with hypoxia: (2) Multifocal pneumonia: (3) Interstitial lung disease: (4) Hematoma of right foot: (5) Chronic anemia: (6) Liver cirrhosis secondary to WEIR: (7) Elevated CA 19-9 level: (8) BERRY (obstructive sleep apnea): (9) Sick sinus syndrome: (10) Atrial fibrillation: (11) CKD (chronic kidney disease), stage III: (12) HTN (hypertension): (13) Depression: (14) Anxiety: (15) Obesity, morbid, BMI 40.0-49.9: Plan 67yo F with a PMH of chronic respiratory failure 2/2 pulmonary hypertension and ILD, h/o BERRY (CPAP intolerance)/nocturnal hypoxemia on home 2L O2 HS, SSS s/p PPM, paroxysmal atrial fibrillation not on anticoagulation secondary to GI bleed, hypertension, NAFLD cirrhosis, esophageal varices, ovarian cancer status post surgery/incomplete chemotherapy, recurrent ESBL E. coli UTI on Fosfomycin suppression Rx, history of C. difficile secondary to clindamycin, CRI (baseline creatinine 1.1), prediabetes, chronic anemia (baseline hemoglobin of 8), chronic thrombocytopenia, past tobacco abuse presented 05/19 with SOB that began a few days ago and was found to have acute on chronic hypoxic respiratory failure and multifocal pneumonia. She is being managed for the following: Acute on chronic hypoxic respiratory failure Multifocal pneumonia H/o ILD Sent from wound care clinic after noting hypoxic in 70s, improved to 95% on 6 L NC At presentation, Afebrile, no leukocytosis, procal WNL. Does not meet sepsis criteria, non-toxic in appearance Underlying ILD and pulm HTN, on 2L NC O2 at baseline with exertion and HS. Has been on prednisone taper for past month due to possible hemolytic anemia (see below) Chest CTA without evidence of pulmonary embolus in the main, lobar, or segmental pulmonary arteries. Multifocal airspace consolidation is seen throughout both lungs, and the the appearance favors an infectious/inflammatory pneumonitis. Continue Rocephin, doxycycline (avoid azithromycin due to drug-drug interaction with Sotalol) Viral resp PCR negative, sputum and blood cx pending Incentive spirometry, duonebs Q4H PRN SOB or wheezing Continue supplemental O2 (at 2L NC at baseline, currently requiring 4L), wean down as tolerated. Oxygen requirement has a started on 4 L of which might be new baseline but had repeat CXR w/ improvement. Oxygen prescription provided to CM. And supplies Elevated CA 19-9 level H/o ovarian cancer status post surgery/incomplete chemotherapy, recently seen in surveillance by jammer hooker onc at [facility] [place] and CA 19-9 elevated at 169 on 05/05/[address] Frey who requested a CT abd/pelvis, no evidence of metastatic dz in the abd and pelvis. Hematoma of R foot: Following with wound care, h/o wound vac. Previously had CTA LE that ruled out DVT. Continue wound care Chronic anemia: Hgb 11 (improved from previous). On prednisone taper per Dr. 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 Continue at current dose of 20mg daily, f/u w/ dr frey on dc for ongoing taper. Haptoglobin/reticulocyte panel/LDH sent upon request from Dr. Frey's office. Paroxysmal atrial fibrillation : Continue sotalol BID, not on anticoagulation due to h/o GI bleed Mood disorder: Continue Zoloft, Ativan PRN SSS: S/p pacemaker placement NAFLD cirrhosis : Appears compensated, continue low sodium diet if patient agreeable. CKD III: Cr at baseline ~ 1. Continue to monitor with daily BMP BERRY: Intolerant to CPAP, uses 2L NC O2 HS DVT Ppx: SQ heparin Code status: FULL PCP: Christoph Dispo: pt/ot. Patient would like to go home tomorrow. Patient to continue physical therapy. Admission and Anticipated Discharge Date Admission Date: May 19, 2023 Subjective Patient seen and examined at bedside as a follow-up of multifocal pneumonia, acute on chronic hypoxic respiratory failure. Patient was sitting up in chair, on 4 L oxygen via nasal cannula, NAD, reports no unusual cough, performed poorly w/ 2 step test 05/22, reports eating okay and moving bowels okay, no diarrhea per pt. in the morning, patient reports getting better and his strength getting back. But after PT/OT and three-step test, she felt exhausted and would like to go home tomorrow. New oxygen prescription and prescription for the supplies provided to the CM. Patient does not like to be put on salt restricting diet. has been taking reg diet. BP slightly high likely 2/2 steroid use and dietary indiscretion, will up titrate bp meds. Patient denies fever/chills/chest pain. Discussed with patient's oncology office, sent haptoglobin/reticulocyte panel/LDH for tomorrow morning lab, based on those results plan to work on prednisone dose. Physical Exam Physical Exam: GENERAL: Alert and oriented x3. NAD, on 4 L oxygen via nasal cannula HEENT: No pallor, no icterus. Pupils equal, round and reactive to light. Oral mucosa moist. NECK: No JVD, no neck masses. HEART: S1 and S2 heard. Regular rate and rhythm. No murmur, no gallop. RESPIRATORY SYSTEM: Normal AP diameter. No accessory muscle use. No wheezing, b/l crackles. ABDOMEN: Soft, bowel sounds present, nontender, no distention. CENTRAL NERVOUS SYSTEM: No facial droop. Speech is clear. Obeys simple commands. Moves extremities. EXTREMITIES: No edema, no erythema seen. RLE bruise over the leg noted. Results & Data Results & Data Vital Signs (Past 12 Hours) Vital Signs Temp Pulse Pulse Pulse Pulse Pulse Pulse 05/25/23 15:00 67 05/25/23 15:32 36.6 C 69 05/25/23 15:24 88 90 70 68 05/25/23 12:08 36.4 C L 70 05/25/23 11:40 05/25/23 07:40 36.7 C 64 05/25/23 07:00 60 Resp Resp Resp Resp Resp BP Pulse Ox 05/25/23 15:00 05/25/23 15:32 20 150/79 H 96 05/25/23 15:24 24 22 20 24 05/25/23 12:08 18 138/61 94 05/25/23 11:40 05/25/23 07:40 18 133/80 93 05/25/23 07:00 Pulse Ox Pulse Ox Pulse Ox Pulse Ox O2 Del Method O2 Flow Rate O2 Flow Rate 05/25/23 15:00 05/25/23 15:32 Nasal Cannula 4 05/25/23 15:24 82 L 90 90 72 L 3 05/25/23 12:08 Room Air 05/25/23 11:40 Nasal Cannula 3 05/25/23 07:40 Nasal Cannula 4 05/25/23 07:00 O2 Flow Rate O2 Flow Rate 05/25/23 15:00 05/25/23 15:32 07/17/23 15:24 6 3 05/25/23 12:08 05/25/23 11:40 05/25/23 07:40 05/25/23 07:00 (12) HTN (hypertension) Hypertension type: unspecified Qualified Code(s): I10 - Essential (primary) hypertension (13) Depression Depression Type: unspecified Qualified Code(s): F32.9 - Major depressive disorder, single episode, unspecified
[2023-05-26] MEDS: ACETAMINOPHEN 325 MG TAB PO PRN ×2 (02:39→11:31)
[2023-05-26] MEDS: HEPARIN SOD 5,000 UNIT/0.5 ML VIAL SQ SCH (05:43)
[2023-05-26] MEDS: LORazepam 0.5 MG TAB PO PRN (08:09)
[2023-05-26] MEDS: CHOLECALCIFEROL 1,000 UNITS 25 MCG TAB PO SCH (08:11)
[2023-05-26] MEDS: FOLIC ACID 1 MG TAB PO SCH (08:11)
[2023-05-26] MEDS: DOCUSATE SODIUM 100 MG CAP PO SCH (08:11)
[2023-05-26] MEDS: amLODIPine BESYLATE 5 MG TAB PO SCH (08:11)
[2023-05-26] MEDS: GABAPENTIN 300 MG CAP PO SCH (08:11)
[2023-05-26] MEDS: hydroCHLOROthiazide 25 MG TAB PO SCH (08:11)
[2023-05-26] MEDS: SERTRALINE HCL 100 MG TABLET PO SCH (08:12)
[2023-05-26] MEDS: predniSONE 20 MG TAB PO SCH (08:12)
[2023-05-26] MEDS: PANTOprazole 40 MG TAB PO SCH (08:12)
[2023-05-26] MEDS: LORATADINE 10 MG TAB PO SCH (08:12)
[2023-05-26] MEDS: ADVANCED PROBIOTIC 1250 MG CAPSULE PO SCH (08:12)
[2023-05-26] MEDS: SOTALOL HCL 80 MG TAB PO SCH (08:12)
[2023-05-26 08:13] LABS: Hematocrit (blood only) 28.3 % (37.0-47.0); Hemoglobin 9.4 g/dl (12.0-16.0); Immature Retic Fraction 8.5 % (2.3-15.9); Mean Corpuscular Hgb Conc 33.2 g/dL (32.0-36.0); Mean Corpuscular Volume 87.3 fL (80.0-100.0); Mean Platelet Volume 11.4 fL (9.4-12.4); Platelet Count 139 K/uL (130-400); RDW Coefficient of Variation 19.7 % (11.5-14.5); RDW Standard Deviation 63.1 fL (36.4-46.3); Red Blood Count 3.24 M/uL (4.20-5.40); Reticulated Hemoglobin 27.2 pg (28.2-36.6); Reticulocyte % 0.3 % (0.5-2.0); Reticulocytes # 0.01 10^6/uL (0.02-0.10); White Blood Count 5.36 K/ul (4.8-10.8)
[2023-05-26] MEDS: cefTRIAXone SODIUM 2,000 MG in DEXTROSE 5% 50 ML IV SCH (08:18)
[2023-05-26 08:22] LABS: BUN Creatinine Ratio 33.3 (10-20); Calcium 9.3 mg/dl (8.6-10.3); Creatinine Clr Calc Pharmacy 78.2 ml/min; Est GFR (African American) 82.2 ml/min; Est GFR (Non-African American) 70.9 ml/min; Potassium 3.9 mmol/L (3.5-5.1)
[2023-05-26] MEDS: DOXYCYCLINE HYCLATE 100 MG in DEXTROSE 5% 100 ML IV SCH (11:21)
--- NOTE | 2023-05-26 11:54 | Discharge Summary ---
Date of Service May 26, 2023 Admission HPI Per Admitting Provider This is a 67yo F with a PMH of chronic respiratory failure 2/2 pulmonary hypertension and ILD, h/o BERRY (CPAP intolerance)/nocturnal hypoxemia on home 2L O2 HS,SSS s/p PPM, paroxysmal atrial fibrillation not on anticoagulation secondary to GI bleed, hypertension, NAFLD cirrhosis, history esophageal varices, ovarian cancer status post surgery/incomplete chemotherapy, recurrent ESBL E. coli UTI on Fosfomycin suppression Rx, history of C. difficile secondary to clindamycin, CRI (baseline creatinine 1.1), prediabetes, chronic anemia (baseline hemoglobin of 8), chronic thrombocytopenia, past tobacco abuse, post distal femoral replacement on 03/03/23 at [facility] and other medical problems listed below who presents with SOB that began a few days ago. Noticed feeling winded on Thursday evening after she was preparing supper and went back to pulse ox with the lowest reading of 69%. Usually only uses 2L HS oxygen at night but since recent surgeries has been also using 2L as needed over the day. Since Thursday, patient has been requiring oxygen at all times and has raised oxygen up to 5L earlier today at wound care appointment prior to being redirected to ED. In ED, initially found to be hypoxic at 75% initially in ED and is now 96% on 6 L L/min. Endorses feeling fatigued and lightheaded and has been sleeping a lot more over the past 2 days. Denies fever, chills, cough, congestion, sore throat, CP, N/V, abdominal pain, dysuria, diarrhea or constipation. Due for a CT abd/pelvis scan and heme/onc follow up due to increased CA 10-9 lab work in surveillance of L ovarian cancer history. Admission Exam Per Admitting Provider General:NAD, well nourished, non-toxic appearing Head:NC AT Eyes: anicteric sclera, no conjunctival injection Nose:normal, nares patent Mouth:MMM Neck:supple, trachea midline CV:RRR S1 S2 Pulm:b/l crackles and diminished breath sounds throughout, no wheezing or rhonchi Abd/GI:+ BS, soft, NT, ND, no guarding :no dejesus Ext:trace b/l distal LE edema, normal peripheral pulses MSK:normal bulk and tone Neuro:moving all 4 extremities symmetrically, grossly intact Psych:pleasant mood and affect Skin:for the most part visible skin is warm, dry, and without rash. She has bruising on right fontana > left, and the left foot. She has dry peeling skin on the bottoms of both feet with some mild lesions on her toes that are not infected appearing. She has a dressing on her left foot that was just applied at wound care clinic and not taken down. Pt not fully undressed for exam. Principal Diagnosis Acute on chronic hypoxemic respiratory failure Multifocal pneumonia History of interstitial lung disease Chronic anemia Discharge Exam GENERAL: Alert and oriented x3. NAD, on 4 L oxygen via nasal cannula HEENT: No pallor, no icterus. Pupils equal, round and reactive to light. Oral mucosa moist. NECK: No JVD, no neck masses. HEART: S1 and S2 heard. Regular rate and rhythm. No murmur, no gallop. RESPIRATORY SYSTEM: Normal AP diameter. No accessory muscle use. No wheezing, b/l rales. ABDOMEN: Soft, bowel sounds present, nontender, no distention. CENTRAL NERVOUS SYSTEM: No facial droop. Speech is clear. Obeys simple commands. Moves extremities. EXTREMITIES: No edema, no erythema seen. RLE bruise over the leg noted. Discharge Data Allergies Allergy/AdvReac Type Severity Reaction Status Date / Time levofloxacin Allergy Intermediate LE Verified 05/19/23 09:54 swelling and blistering paclitaxel [From Taxol] Allergy Intermediate facial Verified 05/19/23 09:54 flushing, bradycardia doxorubicin AdvReac Severe Hypoxia Verified 05/19/23 09:54 clindamycin AdvReac Intermediate PT Verified 05/19/23 09:54 CONTRACTED C-DIFF shellfish derived AdvReac Intermediate NAUSEA,DIARRHEA, Verified 05/19/23 09:54 VOMITING adhesive AdvReac Mild SKIN Verified 05/19/23 09:54 BLISTERS SOME TIMES Consultations 05/19/23 12:20 ED Decision to Admit Stat Ordered Studies 05/19/23 11:00 CT angio chest PE protocol Stat 05/19/23 14:02 CT Abd and Pelvis [CT abd pelvis IV con only] Routine Hospital Course (1) Acute and chronic respiratory failure with hypoxia: (2) Multifocal pneumonia: (3) Interstitial lung disease: (4) Hematoma of right foot: (5) Chronic anemia: (6) Liver cirrhosis secondary to WEIR: (7) Elevated CA 19-9 level: (8) BERRY (obstructive sleep apnea): (9) Sick sinus syndrome: (10) Atrial fibrillation: (11) CKD (chronic kidney disease), stage III: (12) HTN (hypertension): (13) Depression: (14) Anxiety: (15) Obesity, morbid, BMI 40.0-49.9: Plan 67yo F with a PMH of chronic respiratory failure 2/2 pulmonary hypertension and ILD, h/o BERRY (CPAP intolerance)/nocturnal hypoxemia on home 2L O2 HS, SSS s/p PPM, paroxysmal atrial fibrillation not on anticoagulation secondary to GI bleed, hypertension, NAFLD cirrhosis, esophageal varices, ovarian cancer status post surgery/incomplete chemotherapy, recurrent ESBL E. coli UTI on Fosfomycin suppression Rx, history of C. difficile secondary to clindamycin, CRI (baseline creatinine 1.1), prediabetes, chronic anemia (baseline hemoglobin of 8), chronic thrombocytopenia, past tobacco abuse presented 05/19 with SOB that began a few days ago and was found to have acute on chronic hypoxic respiratory failure and multifocal pneumonia. She is being managed for the following: Acute on chronic hypoxic respiratory failure Multifocal pneumonia H/o ILD Sent from wound care clinic after noting hypoxic in 70s, improved to 95% on 6 L NC At presentation, Afebrile, no leukocytosis, procal WNL. Does not meet sepsis criteria, non-toxic in appearance Underlying ILD and pulm HTN, on 2L NC O2 at baseline with exertion and HS. Has been on prednisone taper for past month due to possible hemolytic anemia (see below) Chest CTA without evidence of pulmonary embolus in the main, lobar, or segmental pulmonary arteries. Multifocal airspace consolidation is seen throughout both lungs, and the the appearance favors an infectious/inflammatory pneumonitis. Continue Rocephin, doxycycline (avoid azithromycin due to drug-drug interaction with Sotalol) -- s/p atb course. Viral resp PCR negative, Blood culture negative. Incentive spirometry, duonebs Q4H PRN SOB or wheezing Oxygen requirement has a started on 4 L of which might be new baseline but had repeat CXR w/ improvement. Oxygen and supplies prescription provided to CM. Pt will need repeat CXR in 6 weeks upon DC, she will benefit from establishing with Pulm as OP. Elevated CA 19-9 level H/o ovarian cancer status post surgery/incomplete chemotherapy, recently seen in surveillance by technology project manager onc at [facility] and CA 19-9 elevated at 169 on 05/05/[address] Frey who requested a CT abd/pelvis, no evidence of metastatic dz in the abd and pelvis. Hematoma of R foot: Following with wound care, h/o wound vac. Previously had CTA LE that ruled out DVT. Continue wound care Chronic anemia: Hgb 11 (improved from previous). On prednisone taper per Dr. 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 Continue at current dose of 20mg daily, f/u w/ dr frey on dc for ongoing taper. Haptoglobin/reticulocyte panel/LDH sent upon request from Dr. Frey's office ---> connected w/ Dr. Frey's office again today, plan to dc her on 20 mg daily of prednisone and follow up w/ oncology office on this . Paroxysmal atrial fibrillation : Continue sotalol BID, not on anticoagulation due to h/o GI bleed Mood disorder: Continue Zoloft, Ativan PRN SSS: S/p pacemaker placement NAFLD cirrhosis : Appears compensated, continue low sodium diet if patient agreeable. CKD III: Cr at baseline ~ 1. BERRY: Intolerant to CPAP, uses 2L NC O2 HS DVT Ppx: SQ heparin Code status: FULL PCP: Christoph Patient being discharged home with home health with following instruction at the point of discharge: Follow-up with your primary care physician within a week time and likely you will need labs CBC/CMP/magnesium/phosphorus. Recommend establishing with pulmonology as an outpatient, communicate with PCP office for referral. You were treated for multifocal pneumonia while in the hospital, you completed the course of antibiotic. Recommend repeat chest imaging in 6-week upon discharge, coordinate with your PCP office. Because your blood pressure were elevated while in the hospital, a new medication amlodipine has been added at a small dose. Continue to measure your blood pressure twice a day and maintain a log to take to your primary care office for further evaluation/management of your blood pressure medications. Follow-up with your oncology in 1 to 2 weeks time upon discharge. Continue with incentive spirometry. Please make sure that you are able to get your medications today by calling your pharmacy before you leave the hospital so that your treatment continuity is not broken. Home Health Attestation I certify that this patient is under my care and that I, or a physicians assistant portfolio manager working with me, had a face to-face encounter that meets the home health [id number] encounter requirements with this patient. The encounter with the patient was in whole, or in part, for the following medical condition, which is the primary reason for home health care (list medical condition): multifocal pneumonia I certify that, based on my findings, the following services are medically necessary home health services: My clinical findings support the need for the above services because: Home Safety Assessment Medication Compliance Oxygen Safety and Management PT Assessment for Endurance / Balance / Strength PT Eval for Safety and Mobility PT Eval for Safety, Gait Training, Assistive Devices PT Gait and Balance Training, Strengthening and Safety Safety Skilled Nsg Assessment Skilled Nsg Assess Pt Illness, Disease and Sx Monitoring S/S to Report to Provider Further, I certify that my clinical findings support that this patient is homebound (i.e. absences from home require considerable and taxing effort and are for medical reasons or taoism services or infrequently or of short duration when for other reasons) because: Transportation Assistance/Unable to Leave Home Unassisted Certification for Home Health Services: Based on the above findings, I certify that this patient is confined to the home and needs intermittent half-way care, physical therapy and/or speech therapy or continues to need occupational therapy. The patient is under my care, and I have initiated the establishment of the plan of care. This patient will be followed by a physician who will periodically review the plan of care. Total Time Total Time Spent Total Time Spent (In Minutes): 50 Discharge Plan Discharge Items Patient Disposition: Home - Home Health Services Reason For Visit: MULTIFOCAL PNA Discharge Diagnosis: Acute on chronic hypoxemic respiratory failure Multifocal pneumonia History of interstitial lung disease Chronic anemia Activity: Resume your previous activity Non-emergency contact: Primary Care Provider Call non-emergency contact if: you have any medication questions, your symptoms worsen and your temperature is above 101 Follow-up/Referrals: Kat Hawthorne DO [Primary Care Provider] - (Date & Time 05/29/2023 10:00 AM Provider Angie Trejo MD [facility] ) Diet: Regular Addtl Attending Provider Instructions: Follow-up with your primary care physician within a week time and likely you will need labs CBC/CMP/magnesium/phosphorus. Recommend establishing with pulmonology as an outpatient, communicate with PCP office for referral. You were treated for multifocal pneumonia while in the hospital, you completed the course of antibiotic. Recommend repeat chest imaging in 6-week upon discharge, coordinate with your PCP office. Because your blood pressure were elevated while in the hospital, a new me dication amlodipine has been added at a small dose. Continue to measure your blood pressure twice a day and maintain a log to take to your primary care office for further evaluation/management of your blood pressure medications. Follow-up with your oncology in 1 to 2 weeks time upon discharge. Continue with incentive spirometry. Please make sure that you are able to get your medications today by calling your pharmacy before you leave the hospital so that your treatment continuity is not broken. Pending Studies at Discharge: No Stand-Alone Forms: My [facility] [employer], Smoking Cessation Medications and DC Order Prescriptions: New amlodipine [Norvasc] 5 mg Tablet 2.5 mg PO QAM Qty: 15 0RF Advanced Probiotic 625 mg (10 billion cell) Capsule 2 cap PO DAILY 7 Days Qty: 14 0RF prednisone 20 mg Tablet 20 mg PO DAILY Qty: 14 0RF Continued hydrochlorothiazide 25 mg tablet 25 mg PO DAILY cholecalciferol (vitamin D3) 50 mcg (2,000 unit) tablet 2,000 unit PO QAM Qty: 90 3RF omeprazole 20 mg capsule,delayed release(DR/EC) 20 mg PO BID sertraline [Zoloft] 100 mg Tablet 100 mg PO QAM lorazepam 0.5 mg Tablet 0.5 mg PO Q8H PRN (Reason: Anxiety) folic acid 1 mg Tablet 1 mg PO QAM fosfomycin tromethamine [Monurol] 3 gram packet 3 g PO WK Rx Instructions: TAKE THIS MEDICATION EVERY THURSDAY sotalol 80 mg tablet 80 mg PO BID cyclobenzaprine 5 mg tablet 5 mg PO BID PRN (Reason: Muscle Spasm) loratadine [Claritin] 10 mg Tablet 10 mg PO QAM acetaminophen [Tylenol] 325 mg Tablet 325 mg PO DIRECTED PRN (Reason: PAIN/FEVER) docusate sodium [Stool Softener] 100 mg Capsule 100 mg PO BID hydroxyzine HCl 25 mg tablet 25 mg PO HS PRN (Reason: Itching) albuterol sulfate 90 mcg/actuation HFA aerosol inhaler 2 puff INHALATION Q4H PRN (Reason: Wheezing) fluoride (sodium) [SF 5000 Plus] 1.1 % Cream 1 applic DENTAL BID (DME) Portable Oxygen Misc See Rx Instructions .Route Qty: 1 0RF Rx Instructions: 3lpm via nasal cannula. Test for portability (POC) gabapentin 300 mg Tablet 300 mg PO TID Discharge Orders: Discharge Order (Routine); Ordered 05/26/23 Ordered By: Oleg Weathers Admission Data Admit Date/Time: 05/19/23 13:08 Attending Provider: Oleg Weathers Admit Provider: Jyothi Chester Primary Care Provider: Kat Hawthorne Other Providers: Jyothi Chester ; [facility]
== END 2023-05-26 14:44 | disposition home health service (06) | DRG 193 ==
LOC: ED 10:41 → 2N 13:08 → SUATTDRO 13:08 → 2N 14:56

== ENCOUNTER 2023-06-17 14:09 | Inpatient (IN) ==
--- NOTE | 2023-06-17 15:14 | Emergency Department Note ---
Impression & Plan Acute and chronic respiratory failure, Hypomagnesemia, Pulmonary edema ED Provider Note NAME: MICHELLE ARELLANO AGE: 67 SEX: F : 1955 ARRIVES VIA: Walk-In INFORMANT: Patient, ED PROVIDER(S): Sachin Vale MD CHIEF COMPLAINT: Shortness of breath MEDICAL DECISION MAKING: Patient presents due to concern for worsening shortness of breath and was referred by her home health nurse due to concerns for hypoxemia at home. IV was established blood was obtained and the patient did have a chest x-ray completed. chest x-ray does show likely pulmonary edema. Patient is a normal white count chronic and stable anemia hemoglobin 9.1. The patient's platelet count is slightly low but has been low in the past. Currently at 111. Kidney function unremarkable. Magnesium low at 1.5. Given pulmonary edema Lasix 40 IV was ordered and the patient was ordered magnesium for repleted. Patient does not complain of any tongue cough and has a normal white count. No antibiotics Prior /Outside records reviewed: I reviewed a discharge summary from Dr. Weathers from May 26, 2023. Patient has known history of pulmonary hypertension ILD BERRY CPAP intolerance nocturnal hypoxemia on home oxygen therapy. Patient was treated for acute on chronic hypoxic respiratory failure multifocal pneumonia. Patient's oxygen requirement was 4 L at the time of discharge. Differential diagnosis: Pneumonia, pneumonitis, atelectasis, chronic respiratory failure, interstitial lung disease, pulmonary hypertension among others were considered Diagnostics, as interpreted by me: ECG: Normal sinus rhythm, rate 70, normal intervals, normal axis no ST elevations, T wave inversion in lead III not in contiguous leads. Cardiac monitoring: An order was placed for continuous cardiac monitoring. The monitor shows a rate of 77 with sinus rhythm. Patient was placed on pulse oximetry Medical decision rules: none Imaging studies: See below I informally reviewed the patient's chest x-ray which does not show evidence of obvious pneumothorax. HPI: Patient presents due to concern for worsening shortness of breath as well as exertional dyspnea. The patient has noted her symptoms have gotten progressively worse over the last 1 week. No cough. The patient does have remote history of smoking but has not smoked in many many years. Patient does wear chronic oxygen at all times. The patient's home health nurse was there today to evaluate a chronic right foot wound as well as an infiltrated IV site which was bandaged. The patient was noted to have exertional hypoxia. Patient states that she dipped down to as low as 82% even on increasing her home oxygen from 4 L to 5 L. Patient does complain of VINSON. Patient states that she does take hydrochlorothiazide and typically does not have any lower extremity swelling and does not complain of this today. Patient [place] any fevers or chills. No chest pains PAST MEDICAL HISTORY: See Below PAST SURGICAL HISTORY: See Below SOCIAL HISTORY: See Below HOME MEDICATIONS: See Below ALLERGIES: See Below VITALS: See Below PHYSICAL EXAMINATION: GENERAL: NAD, non-toxic. EYE EXAM: Normal conjunctiva. PERRL, no anisocoria and EOM's grossly intact w/o pain. OROPHARYNX: Moist mucus membranes, grossly normal dentition. NECK: Supple, no nuchal rigidity, no adenopathy, non-tender. No signs of meningismus. FROM of the neck with good chin to chest and neck extension. No stridor. LUNGS: Trace bibasilar crackles. No rhonchi or wheezing normal chest wall mechanics. HEART: NSR, no MRG. ABDOMEN: Abdomen soft, non-tender, no masses, no rebound or guarding. BACK: No CVA TTP. SKIN: No rashes and no bruising. UPPER EXTREMITIES: Upper extremities are grossly normal. LOWER EXTREMITIES: Grossly normal, no edema. NEURO EXAM: A&O x3, cranial nerves II-XII grossly intact, normal speech, moves all 4 extremities. Past Med/Surg History Medical History Anemia hx blood transfusions Hgb baseline 8-9 Anxiety and depression Atrial fibrillation No AC due to GI bleed and anemia Chronic hypoxemic respiratory failure Chronic right-sided HF (heart failure) Likely per cardio secondary to obesity hypo ventilatory syndrome/Pickwickian CKD (chronic kidney disease), stage [address] 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 WELSH). last check 3 weeks ago Restless leg syndrome Secondary pulmonary hypertension Sick sinus syndrome Spinal stenosis HX Surgical History H/O arthroscopy of knee H/O cystoscopy H/O gastric bypass "1980, reversed in same year" History of appendectomy (~09/07/20) History of arthroscopy LEFT KNEE History of colonoscopy History of ERCP (~09/2020) History of esophagogastroduodenoscopy (EGD) History of herniorrhaphy VENTRAL HERNIA REPAIR= 04/27/17= GRADE VIEW 2, CLEMENTE#2, ETT [address] [facility] History of lithotripsy History of tonsillectomy History of total hysterectomy with bilateral salpingo-oophorectomy (BSO) (~09/07/20) @ [facility] with appy at same time History of vascular access device removed [place] teeth removed Family History Mother Scleroderma Lupus Family history of reaction to anesthesia nausea Father Coronary heart disease Heart disease Brother Fatty liver Aunt Cancer unspecified Grandfather (Paternal) Heart disease Grandfather (Maternal) Lung disease Grandmother (Paternal) Stroke Grandmother (Maternal) Family history of diabetes mellitus Social History Smoking Status: Former smoker Tobacco Type: Cigarettes Cigarettes Per Day: couple cigs on weekends in ; Second Hand Exposure: No; Do You Dip or Chew Tobacco: No; Tobacco Cessation Education Requested by Patient: No Hx Alcohol Use: No Hx Substance Use: No Preferred Language: Arabic Communication Ability: Effective Visual Impairment: No Limitations [employer] Required: No Beliefs That Will Affect Care: None marital status: Current Living Situation: Alone Current Living Situation Comment: home health current occupational status: retired How many Children do You have: 0 Other Information That Helps Us Care for You: No Feels Safe at Home: Yes Safety Concerns: Feels Safe At This Time Diet: regular during the past year weight has: remained stable Assistive Devices: Cane, Oxygen - Continuous and Wheelchair Allergies Allergies Allergy/AdvReac Type Severity Reaction Status Date / Time levofloxacin Allergy Intermediate LE Verified 06/15/23 09:27 swelling and blistering paclitaxel [From Taxol] Allergy Intermediate facial Verified 06/15/23 09:27 flushing, bradycardia doxorubicin AdvReac Severe Hypoxia Verified 06/15/23 09:27 clindamycin AdvReac Intermediate PT Verified 06/15/23 09:27 CONTRACTED C-DIFF shellfish derived AdvReac Intermediate NAUSEA,DIARRHEA, Verified 06/15/23 09:27 VOMITING adhesive AdvReac Mild SKIN Verified 06/15/23 09:27 BLISTERS SOME TIMES Home Meds Home Medications Medication Instructions Recorded Confirmed lorazepam 0.5 mg tablet 0.5 mg PO Q8H PRN Anxiety 10/18/18 06/17/23 sertraline 100 mg tablet (Zoloft) 100 mg PO QAM 10/18/18 06/17/23 cyclobenzaprine 5 mg tablet 5 mg PO BID PRN Muscle Spasm 08/25/19 06/17/23 omeprazole 20 mg capsule,delayed 20 mg PO BID 04/12/20 06/17/23 release folic acid 1 mg tablet 1 mg PO QAM 05/08/20 06/17/23 fosfomycin tromethamine 3 gram 3 g PO WK 10/01/20 06/17/23 oral packet (Monurol) sotalol 80 mg tablet 80 mg PO BID 10/01/20 06/17/23 loratadine 10 mg tablet (Claritin) 10 mg PO QAM 09/18/22 06/17/23 acetaminophen 325 mg tablet 325 mg PO DIRECTED PRN 02/27/23 06/17/23 (Tylenol) PAIN/FEVER albuterol sulfate 90 mcg/actuation 2 puff inhalation Q4H PRN Wheezing 02/27/23 06/17/23 aerosol inhaler docusate sodium 100 mg capsule 100 mg PO BID 02/27/23 06/17/23 (Stool Softener) fluoride (sodium) 1.1 % dental 1 applic dental BID 02/27/23 06/17/23 cream (SF 5000 Plus) hydroxyzine HCl 25 mg tablet 25 mg PO HS PRN Itching 02/27/23 06/17/23 hydrochlorothiazide 25 mg tablet 25 mg PO DAILY 04/16/23 06/17/23 gabapentin 300 mg capsule 300 mg PO TID 06/17/23 06/17/23 prednisone 10 mg tablet 10 mg PO DAILY 06/17/23 06/17/23 Previous Rx's Medication Instructions Recorded cholecalciferol (vitamin D3) 50 2,000 unit PO QAM #90 tabs 04/09/21 mcg (2,000 unit) tablet Portable Oxygen #1 ea 01/23/23 amlodipine 5 mg tablet (Norvasc) 2.5 mg PO QAM #15 tabs 05/26/23 nystatin 100,000 unit/gram topical 1 applic topical DAILY 7 days #15 06/17/23 cream grams Results & Data (ED) Vital Signs Vital Signs - 24 hr 06/17/23 14:19 06/17/23 14:47 06/17/23 14:47 Temperature 36.0 C L Temperature Source Temporal Artery Scan Pulse Rate 73 Pulse Rate from SpO2 Sensor Respiratory Rate 20 Respiratory Effort / Characteristics Non-Labored Spontaneous Non-Labored Respiratory Depth Normal Normal Respiratory Pattern Regular Blood Pressure 122/85 Blood Pressure Mean 97 Pulse Oximetry 87 L 87 L Oxygen Delivery Method Nasal Cannula Nasal Cannula Nasal Cannula Oxygen Flow Rate 4 5 4 Sepsis Recent Fever Within 48 Hours No Sepsis New/Unexplained Change in Mental Status N/A Sepsis Action Taken by Nursing No Action Required Oxygen Flow Rate - Titration 5 Pulse Oximetry Post Tiitration 95 06/17/23 15:37 06/17/23 15:19 06/17/23 15:20 Temperature Temperature Source Pulse Rate 68 68 Pulse Rate from SpO2 Sensor 66 68 Respiratory Rate 21 24 Respiratory Effort / Characteristics Respiratory Depth Respiratory Pattern Blood Pressure Blood Pressure Mean Pulse Oximetry 94 94 95 Oxygen Delivery Method Nasal Cannula Oxygen Flow Rate 5 Sepsis Recent Fever Within 48 Hours Sepsis New/Unexplained Change in Mental Status Sepsis Action Taken by Nursing Oxygen Flow Rate - Titration Pulse Oximetry Post Tiitration 06/17/23 15:30 06/17/23 15:31 06/17/23 15:31 Temperature Temperature Source Pulse Rate 68 69 Pulse Rate from SpO2 Sensor 68 68 Respiratory Rate 27 H 18 Respiratory Effort / Characteristics Respiratory Depth Respiratory Pattern Blood Pressure 139/57 L Blood Pressure Mean 103 Pulse Oximetry 94 96 Oxygen Delivery Method Oxygen Flow Rate Sepsis Recent Fever Within 48 Hours Sepsis New/Unexplained Change in Mental Status Sepsis Action Taken by Nursing Oxygen Flow Rate - Titration Pulse Oximetry Post Tiitration 06/17/23 15:40 06/17/23 15:50 06/17/23 16:00 Temperature Temperature Source Pulse Rate 66 65 71 Pulse Rate from SpO2 Sensor 67 66 71 Respiratory Rate 25 H 25 H 18 Respiratory Effort / Characteristics Respiratory Depth Respiratory Pattern Blood Pressure Blood Pressure Mean Pulse Oximetry 94 95 92 Oxygen Delivery Method Oxygen Flow Rate Sepsis Recent Fever Within 48 Hours Sepsis New/Unexplained Change in Mental Status Sepsis Action Taken by Nursing Oxygen Flow Rate - Titration Pulse Oximetry Post Tiitration 06/17/23 16:01 06/17/23 16:01 06/17/23 16:10 Temperature Temperature Source Pulse Rate 69 67 Pulse Rate from SpO2 Sensor 69 67 Respiratory Rate 18 24 Respiratory Effort / Characteristics Respiratory Depth Respiratory Pattern Blood Pressure 138/62 Blood Pressure Mean 109 Pulse Oximetry 92 93 Oxygen Delivery Method Oxygen Flow Rate Sepsis Recent Fever Within 48 Hours Sepsis New/Unexplained Change in Mental Status Sepsis Action Taken by Nursing Oxygen Flow Rate - Titration Pulse Oximetry Post Tiitration 06/17/23 16:20 06/17/23 16:42 06/17/23 16:30 Temperature Temperature Source Pulse Rate 67 68 Pulse Rate from SpO2 Sensor 67 Respiratory Rate 23 Respiratory Effort / Characteristics Respiratory Depth Respiratory Pattern Blood Pressure 130/64 Blood Pressure Mean 88 Pulse Oximetry 93 Oxygen Delivery Method Nasal Cannula Oxygen Flow Rate 5 Sepsis Recent Fever Within 48 Hours Sepsis New/Unexplained Change in Mental Status Sepsis Action Taken by Nursing Oxygen Flow Rate - Titration Pulse Oximetry Post Tiitration 06/17/23 16:30 06/17/23 16:40 06/17/23 16:50 Temperature Temperature Source Pulse Rate 66 67 66 Pulse Rate from SpO2 Sensor 66 66 66 Respiratory Rate 19 26 H 23 Respiratory Effort / Characteristics Respiratory Depth Respiratory Pattern Blood Pressure Blood Pressure Mean Pulse Oximetry 94 92 94 Oxygen Delivery Method Oxygen Flow Rate Sepsis Recent Fever Within 48 Hours Sepsis New/Unexplained Change in Mental Status Sepsis Action Taken by Nursing Oxygen Flow Rate - Titration Pulse Oximetry Post Tiitration 06/17/23 17:00 06/17/23 17:00 06/17/23 17:10 Temperature Temperature Source Pulse Rate 67 71 Pulse Rate from SpO2 Sensor 69 76 Respiratory Rate 21 19 Respiratory Effort / Characteristics Respiratory Depth Respiratory Pattern Blood Pressure 136/65 Blood Pressure Mean 96 Pulse Oximetry 93 90 Oxygen Delivery Method Oxygen Flow Rate Sepsis Recent Fever Within 48 Hours Sepsis New/Unexplained Change in Mental Status Sepsis Action Taken by Nursing Oxygen Flow Rate - Titration Pulse Oximetry Post Tiitration 06/17/23 17:20 06/17/23 17:30 06/17/23 17:40 Temperature Temperature Source Pulse Rate 68 65 65 Pulse Rate from SpO2 Sensor 67 66 64 Respiratory Rate 20 21 22 Respiratory Effort / Characteristics Respiratory Depth Respiratory Pattern Blood Pressure Blood Pressure Mean Pulse Oximetry 93 94 95 Oxygen Delivery Method Nasal Cannula Oxygen Flow Rate 5 Sepsis Recent Fever Within 48 Hours Sepsis New/Unexplained Change in Mental Status Sepsis Action Taken by Nursing Oxygen Flow Rate - Titration Pulse Oximetry Post Tiitration Home Medications Current Medication List: was personally reviewed by me Laboratory Data Attestation: I reviewed the patient's lab results. 06/17/23 14:44 06/17/23 14:44 Lab Results 06/17/23 06/17/23 06/17/23 Range/Units 14:44 14:44 14:44 WBC 6.29 (4.8-10.8) K/ul RBC 3.16 L (4.20-5.40) M/uL Hgb 9.1 L (12.0-16.0) g/dl Hct 29.2 L (37.0-47.0) % MCV 92.4 (80.0-100.0) fL MCH 28.8 (25.0-34.0) pg MCHC 31.2 L (32.0-36.0) g/dL RDW Std Deviation 69.0 H (36.4-46.3) fL RDW Coeff of Patrica 20.5 H (11.5-14.5) % Plt Count 111 L (130-400) K/uL MPV 11.8 (9.4-12.4) fL Immature Gran % (Auto) 1.4 % Neut % (Auto) 87.9 % Lymph % (Auto) 7.0 % [place] % (Auto) 3.0 % Eos % (Auto) 0.5 % Baso % (Auto) 0.2 % Neut # (Auto) 5.53 (1.40-6.50) K/uL Lymph # (Auto) 0.44 L (1.2-3.4) K/uL [place] # (Auto) 0.19 (0.11-0.59) K/uL Eos # (Auto) 0.03 (0-0.50) K/uL Baso # (Auto) 0.01 (0-0.2) K/uL Immature Gran # (Auto) 0.09 (0.01-0.20) K/uL Absolute Nucleated RBC 0.02 (0-0.12) K/uL Nucleated RBC % (auto) 0.3 % Hypochromasia Present Anisocytosis Present PT 10.7 (9.0-12.0) Seconds INR 1.0 (0.9-1.1) APTT 27.6 (21.0-31.0) Seconds PTT Ratio 1.0 Sodium 136 (136-145) mmol/L Potassium 4.5 (3.5-5.1) mmol/L Chloride 97 L (98-107) mmol/L Carbon Dioxide 32 (21-32) mmol/L Anion Gap 7 (3-11) BUN 23 (6-23) mg/dl Creatinine 0.87 (0.6-1.2) mg/dl Est Cr Clr Drug Dosing Not Reportable Est GFR ( Amer) 78.8 ml/min Est GFR (Non-Af Amer) 68.0 ml/min BUN/Creatinine Ratio 26.4 H (10-20) Glucose 185 H (70-99(Fasting)) mg/dl Calcium 9.5 (8.6-10.3) mg/dl Magnesium 1.5 L (1.7-2.4) mg/dl Total Bilirubin 0.5 (0.2-1.0) mg/dl AST 25 (13-39) U/L ALT 32 (7-52) U/L Alkaline Phosphatase 106 H (34-104) U/L Troponin I High Sens 6.2 (0-14) pg/ml Total Protein 7.2 (6.0-8.3) gm/dl Albumin 3.8 (3.4-5.0) gm/dl Globulin 3.4 (2.5-4.0) gm/dl Albumin/Globulin Ratio 1.1 (0.9-2) Adenovirus (PCR) (NotDetected) B. pertussis DNA (PCR) (NotDetected) B.parapertussis DNA PCR (NotDetected) C. pneumoniae DNA (PCR) (NotDetected) Coronavirus OC43 (PCR) (NotDetected) Coronavirus HKU1 (PCR) (NotDetected) Coronavirus 229E (PCR) (NotDetected) SARS-CoV-2 (PCR) (NotDetected) Coronavirus NL63 (PCR) (NotDetected) Human Metapneumovir PCR (NotDetected) Influenza Type A (PCR) (NotDetected) Influenza Type B (PCR) (NotDetected) M. pneumoniae (PCR) (NotDetected) Parainfluenza 1 (PCR) (NotDetected) Parainfluenza 2 (PCR) (NotDetected) Parainfluenza 3 (PCR) (NotDetected) Parainfluenza 4 (PCR) (NotDetected) RSV (PCR) (NotDetected) Entero/Rhino (PCR) (NotDetected) 06/17/23 Range/Units 16:29 WBC (4.8-10.8) K/ul RBC (4.20-5.40) M/uL Hgb (12.0-16.0) g/dl Hct (37.0-47.0) % MCV (80.0-100.0) fL MCH (25.0-34.0) pg MCHC (32.0-36.0) g/dL RDW Std Deviation (36.4-46.3) fL RDW Coeff of Patrica (11.5-14.5) % Plt Count (130-400) K/uL MPV (9.4-12.4) fL Immature Gran % (Auto) % Neut % (Auto) % Lymph % (Auto) % [place] % (Auto) % Eos % (Auto) % Baso % (Auto) % Neut # (Auto) (1.40-6.50) K/uL Lymph # (Auto) (1.2-3.4) K/uL [place] # (Auto) (0.11-0.59) K/uL Eos # (Auto) (0-0.50) K/uL Baso # (Auto) (0-0.2) K/uL Immature Gran # (Auto) (0.01-0.20) K/uL Absolute Nucleated RBC (0-0.12) K/uL Nucleated RBC % (auto) % Hypochromasia Anisocytosis PT (9.0-12.0) Seconds INR (0.9-1.1) APTT (21.0-31.0) Seconds PTT Ratio Sodium (136-145) mmol/L Potassium (3.5-5.1) mmol/L Chloride (98-107) mmol/L Carbon Dioxide (21-32) mmol/L Anion Gap (3-11) BUN (6-23) mg/dl Creatinine (0.6-1.2) mg/dl Est Cr Clr Drug Dosing Est GFR ( Amer) ml/min Est GFR (Non-Af Amer) ml/min BUN/Creatinine Ratio (10-20) Glucose (70-99(Fasting)) mg/dl Calcium (8.6-10.3) mg/dl Magnesium (1.7-2.4) mg/dl Total Bilirubin (0.2-1.0) mg/dl AST (13-39) U/L ALT (7-52) U/L Alkaline Phosphatase (34-104) U/L Troponin I High Sens (0-14) pg/ml Total Protein (6.0-8.3) gm/dl Albumin (3.4-5.0) gm/dl Globulin (2.5-4.0) gm/dl Albumin/Globulin Ratio (0.9-2) Adenovirus (PCR) Not Detected (NotDetected) B. pertussis DNA (PCR) Not Detected (NotDetected) B.parapertussis DNA PCR Not Detected (NotDetected) C. pneumoniae DNA (PCR) Not Detected (NotDetected) Coronavirus OC43 (PCR) Not Detected (NotDetected) Coronavirus HKU1 (PCR) Not Detected (NotDetected) Coronavirus 229E (PCR) Not Detected (NotDetected) SARS-CoV-2 (PCR) Not Detected (NotDetected) Coronavirus NL63 (PCR) Not Detected (NotDetected) Human Metapneumovir PCR Not Detected (NotDetected) Influenza Type A (PCR) Not Detected (NotDetected) Influenza Type B (PCR) Not Detected (NotDetected) M. pneumoniae (PCR) Not Detected (NotDetected) Parainfluenza 1 (PCR) Not Detected (NotDetected) Parainfluenza 2 (PCR) Not Detected (NotDetected) Parainfluenza 3 (PCR) Not Detected (NotDetected) Parainfluenza 4 (PCR) Not Detected (NotDetected) RSV (PCR) Not Detected (NotDetected) Entero/Rhino (PCR) Not Detected (NotDetected) Administered Medications Docusate Sodium (Docusate Sodium 100 Mg Cap) 100 mg PO BID [facility], [facility]1983 Stop: 07/17/23 20:59 Last Admin: 06/17/23 21:32 Dose: 100 mg Documented By: MCS Gabapentin (Gabapentin 300 Mg Cap) 300 mg PO TID ADINA Stop: 07/17/23 20:59 Last Admin: 06/17/23 21:33 Dose: 300 mg Documented By: MCS Heparin Sodium (Porcine) (Heparin Sod 5,000 Unit/0.5 Ml Vial) 5,000 units SQ Q12 ADINA Stop: 07/17/23 20:59 Last Admin: 06/17/23 21:33 Dose: 5,000 units Documented By: MCS Ceftriaxone Sodium 2,000 mg/ (Dextrose) 70 mls @ 100 mls/hr IV Q24H [facility], [facility]–1983; Protocol Stop: 06/24/23 20:59 Last Admin: 06/17/23 21:33 Dose: 100 mls/hr Documented By: MCS Doxycycline Hyclate 100 mg/ (Dextrose) 110 mls @ 50 mls/hr IV Q12H [facility], 1928–1983 Stop: 06/24/23 20:59 Last Admin: 06/17/23 21:34 Dose: 50 mls/hr Documented By: MCS Methylprednisolone 40 mg/ (Syringe) 0.64 mls @ 1.5 mls/min IV DAILY [facility], [facility]–1983 Stop: 07/17/23 20:59 Last Admin: 06/17/23 21:33 Dose: 1.5 mls/min Documented By: MCS Lorazepam (Lorazepam 0.5 Mg Tab) 0.5 mg PO Q8H PRN PRN Reason: Anxiety Stop: 07/17/23 20:15 Last Admin: 06/17/23 21:33 Dose: 0.5 mg Documented By: MCS Pantoprazole Sodium (Pantoprazole 40 Mg Tab) 40 mg PO BID ADINA Stop: 07/17/23 20:59 Last Admin: 06/17/23 21:33 Dose: 40 mg Documented By: MCS Sotalol HCl (Sotalol Hcl 80 Mg Tab) 80 mg PO BID ADINA Stop: 07/17/23 20:59 Last Admin: 06/17/23 21:32 Dose: 80 mg Documented By: MCS Discontinued Medications Furosemide (Furosemide 40 Mg/4 Ml Vial) 40 mg IV ONE ONE Stop: 06/17/23 16:54 Last Admin: 06/17/23 17:21 Dose: 40 mg Documented By: QUINTIN Magnesium Sulfate/Dextrose (Magnesium Sulfate / D5w) 1 gm in 100 mls @ 100 mls/hr IV NOW STA Stop: 06/17/23 17:54 Last Infusion: 06/17/23 18:24 Dose: 0 mls/hr Documented By: Admin: 06/17/23 17:21 Dose: 100 mls/hr Documented By: QUINTIN Imaging Data Radiologist's Impression: Chest X-Ray 06/17/23 15:36 SINGLE VIEW CHEST CLINICAL HISTORY: Dyspnea. FINDINGS: An AP, portable, upright chest radiograph is compared to study dated 05/23/2023 and correlated with chest CT dated 05/19/2023. A 2-lead cardiac pacemaker is unchanged in position. The heart is enlarged noting atherosclerotic calcification of the thoracic aorta. There is pulmonary vascular congestion. Bilateral airspace opacities are seen throughout both lungs. No large pleural effusion or pneumothorax is seen. The skeletal structures are osteopenic. The bony thorax is grossly intact. Surgical clips are noted in the upper abdomen. IMPRESSION: 1. Cardiomegaly and cardiac pacemaker with evidence of congestive failure. 2. Diffuse bilateral airspace opacities likely represent pulmonary edema. C orrelate clinically for evidence of a superimposed infectious/inflammatory pneumonitis. Radiographic follow-up to resolution is recommended. ACT 112: Negative or not required by law. Electronically signed by: Freddie Mae M.D. 06/17/2023 4:05 PM Discharge Plan Visit Data Chief Complaint: Shortness of Breath/Dyspnea Stated Complaint: SOB,CRACKLING IN LUNGS ED Provider: Sachin Vale Discharge Problem: Acute and chronic respiratory failure, Hypomagnesemia, Pulmonary edema Patient Disposition: Admitted As Inpatient Discharge Instructions Interventions: ED Discharge Assessment Last Done: 06/17/23 19:49
[2023-06-17 16:05] LABS: Basophils # (auto) 0.01 K/uL (0-0.2); Basophils % (auto) 0.2 %; Eosinophils # (auto) 0.03 K/uL (0-0.50); Eosinophils % (auto) 0.5 %; Hematocrit (blood only) 29.2 % (37.0-47.0); Hemoglobin 9.1 g/dl (12.0-16.0); Immature Granulocytes # (auto) 0.09 K/uL (0.01-0.20); Immature Granulocytes % (auto) 1.4 %; Lymphocytes # (auto) 0.44 K/uL (1.2-3.4); Mean Corpuscular Hemoglobin 28.8 pg (25.0-34.0); Mean Corpuscular Hgb Conc 31.2 g/dL (32.0-36.0); Mean Corpuscular Volume 92.4 fL (80.0-100.0); Mean Platelet Volume 11.8 fL (9.4-12.4); Monocytes # (auto) 0.19 K/uL (0.11-0.59); Neutrophils # (auto) 5.53 K/uL (1.40-6.50); Neutrophils % (auto) 87.9 %; Nucleated RBC # (auto) 0.02 K/uL (0-0.12); Nucleated RBC % (auto) 0.3 %; Platelet Count 111 K/uL (130-400); RDW Coefficient of Variation 20.5 % (11.5-14.5); Red Blood Count 3.16 M/uL (4.20-5.40); White Blood Count 6.29 K/ul (4.8-10.8)
--- NOTE | 2023-06-17 16:06 | XRay Report ---
SINGLE VIEW CHEST CLINICAL HISTORY: Dyspnea. FINDINGS: An AP, portable, upright chest radiograph is compared to study dated 05/23/2023 and correlat ed with chest CT dated 05/19/2023. A 2-lead cardiac pacemaker is unchanged in position. The heart is e nlarged noting atherosclerotic calcification of the thoracic aorta. There is pulmonary vascular conge stion. Bilateral airspace opacities are seen throughout both lungs. No large pleural effusion or pneu mothorax is seen. The skeletal structures are osteopenic. The bony thorax is grossly intact. Surgical clips are noted in the upper abdomen. IMPRESSION: 1. Cardiomegaly and cardiac pacemaker with evidence of congestive failure. 2. Diffuse bilateral airspace opacities likely represent pulmonary edema. Correlate clinically for ev idence of a superimposed infectious/inflammatory pneumonitis. Radiographic follow-up to resolution is recommended. ACT 112: Negative or not required by law. Electronically signed by: Freddie Mae M.D. 06/17/2023 4:05 PM
[2023-06-17 16:08] LABS: Alanine Aminotransferase 32 U/L (7-52); Albumin Globulin Ratio 1.1 (0.9-2); Albumin Level 3.8 gm/dl (3.4-5.0); Alkaline Phosphatase 106 U/L (34-104); Anion Gap 7 (3-11); Aspartate Aminotransferase 25 U/L (13-39); BUN Creatinine Ratio 26.4 (10-20); Bilirubin,Total 0.5 mg/dl (0.2-1.0); Blood Urea Nitrogen 23 mg/dl (6-23); Calcium 9.5 mg/dl (8.6-10.3); Carbon Dioxide 32 mmol/L (21-32); Chloride 97 mmol/L (98-107); Est GFR (African American) 78.8 ml/min; Globulin 3.4 gm/dl (2.5-4.0); Glucose 185 mg/dl (70-99(Fasting)); Magnesium 1.5 mg/dl (1.7-2.4); Potassium 4.5 mmol/L (3.5-5.1); Sodium 136 mmol/L (136-145); Total Protein 7.2 gm/dl (6.0-8.3)
[2023-06-17 16:13] LABS: Troponin I High Sensitivity 6.2 pg/ml (0-14)
[2023-06-17 16:33] LABS: Partial Thromboplastin Time 27.6 Seconds (21.0-31.0); Prothrombin Time 10.7 Seconds (9.0-12.0)
[2023-06-17 16:35] LABS: Anisocytosis Present; Hypochromasia Present
[2023-06-17] MEDS ORDERED: FUROSEMIDE 40 MG/4 ML VIAL IV ONE (16:53)
[2023-06-17] MEDS ORDERED: MAGNESIUM SULFATE / D5W 1 GM/100 ML BAG IV STA (16:55)
--- NOTE | 2023-06-17 17:23 | History & Physical Report ---
Date of Service June 17, 2023 Assessment & Plan (1) Acute and chronic respiratory failure with hypoxia: (2) Interstitial lung disease: (3) Dyspnea on exertion: (4) Hypomagnesemia: (5) Paroxysmal atrial fibrillation: (6) Tachy-lakeisha syndrome: (7) CKD (chronic kidney disease), stage III: (8) Chronic anemia: (9) Choledocholithiasis: (10) Mood disorder: (11) BERRY (obstructive sleep apnea): Plan: Patient is 67 y/o F with PMH chronic respiratory failure, recently on 4 L continuous, interstitial lung disease, paroxysmal atrial fibrillation not anticoagulated secondary to history of GI bleed, sick sinus syndrome s/p pacemaker, NAFLD cirrhosis, CKD III, chronic anemia, mood disorder, BERRY, history of ovarian cancer, and others listed below presented to ER with complaint of worsening hypoxia with exertion. Acute on chronic hypoxic respiratory failure H/O ILD Volume Overload Possible Pneumonia On chronic 4L at baseline. Recent treatment for multifocal pneumonia in 05/2023 Afebrile, no leukocytosis, procalcitonin negative. BNP: 128. Negative HS troponin. negative respiratory panel. Currenlty 93% on 5L in ER CXR: Cardiomegaly and cardiac pacemaker with evidence of congestive failure. Diffuse bilateral airspace opacities likely represent pulmonary edema. Correlate clinically for evidence of a superimposed infectious/inflammatory pneumonitis. In ER given Lasix 40mg IV Lasix 40mg IV daily Monitor I's & O's, daily weight. Patient denies low sodium diet Currently on prednisone due to possible hemolytic anemia. hold home prednisone and start Solumedrol 40mg IV daily x 4 days Rocephin, doxycycline Duonebs Q4H PRN SOB or wheezing Continue supplemental O2 Echo History echo 05/2022: EF: 60-64%, moderate mitral calcification May need to consider pulmonology, cardiology consult Hypomagnesemia Magnesium: 1.5 In ER given 1GM magnesium sulfate Magnesium lab in am Chronic anemia Hgb:9.[address] Marion for possible hemolytic anemia. She was on Prednisone 20mg daily however was decreased to 10mg daily on 06/10/23 secondary to Hgb 10.7. 06/15/23 Hgb: 9.7 Paroxysmal atrial fibrillation Not on anticoagulation due to history of GI bleed Continue sotalol Mood disorder Continue sertraline Continue Ativan prn SSS S/P pacemaker placement NAFLD cirrhosis Denies low sodium diet No significant ascites noted on exam CKD III Cr: 0.87. At baseline Monitor renal functions, avoid nephrotoxic agents when possible BERRY Intolerant to CPAP, uses O2 HS History choledocholithiasis History ERCP with stone removal and biliary stent Is to have repeat ERCP with stent removal planned in July 2023 No cholecystectomy planned History Ovarian Cancer S/P surgery/incomplete chemotherapy, recently seen in surveillance [place] medical assisting program [place] [facility] [place] 19-9 elevated at 169 on 05/05/[address] Marion DVT Prophylaxis Heparin SQ Full Code as per discussion with pt Follows with Dr Kat Hawthorne for routine care Pt was seen and care coordinated with Dr Stratton. See addendum I spent a total of 80 minutes reviewing notes, outpatient records, labs, medication, coordinating, documenting and providing care for this patient excluding time spent in the performance of separately billed services. History of Present Illness Chief Complaint: hypoxia Primary Care Provider: Kat Hawthorne DO Patient is 67 y/o F with PMH chronic respiratory failure, recently on 4 L continuous, interstitial lung disease, paroxysmal atrial fibrillation not anticoagulated secondary to history of GI bleed, sick sinus syndrome s/p pacemaker, NAFLD cirrhosis, CKD III, chronic anemia, mood disorder, BERRY, history of ovarian cancer, and others listed below presented to ER with complaint of worsening hypoxia with exertion. History obtained from patient as well as inpatient and outpatient chart review. Inpatient admission on 05/19/2023- 05/26/2023 for acute on chronic respiratory failure, multifocal pneumonia treated with Rocephin, doxycycline. Had required 4 L oxygen during admission and was discharged on 4 L oxygen. Patient states has been using 4L oxygen continuous. She has been having home PT and states while participating in PT she increases to 5L secondary to pulse ox dropping in high 80's and exertional SOB. States at rest no SOB however SOB with ambulating through house. Hasn't noticed increased exertional breath but today home health nurse had patient ambulate and reported pulse ox dropped to 80% on 4L. She also reports that home health nurse was concerned about hearing crackles to patient's lungs and patient referred to ER for further evaluation. Denies cough or fever/chills. Patient on prednisone for possible hemolytic anemia and following with Dr Marion. She was on Prednisone 20mg daily however was decreased to 10mg daily on 06/10/23 secondary to Hgb stable at 10.7. She has labs done weekly to monitor. Denies diaphoresis, N/V/D/C, BOX, dizziness, syncope, vision changes, neck pain, CP, SOB, orthopnea, palpitations, cough, sore throat, choking, otalgia, rhinorrhea, abdominal pain, paresthesias, extremity weakness, extremity edema, rashes, urinary symptoms. Allergies Allergy/AdvReac Type Severity Reaction Status Date / Time levofloxacin Allergy Intermediate LE Verified 06/15/23 09:27 swelling and blistering paclitaxel [From Taxol] Allergy Intermediate facial Verified 06/15/23 09:27 flushing, bradycardia doxorubicin AdvReac Severe Hypoxia Verified 06/15/23 09:27 clindamycin AdvReac Intermediate PT Verified 06/15/23 09:27 CONTRACTED C-DIFF shellfish derived AdvReac Intermediate NAUSEA,DIARRHEA, Verified 06/15/23 09:27 VOMITING adhesive AdvReac Mild SKIN Verified 06/15/23 09:27 BLISTERS SOME TIMES Home Medications Medication Instructions Recorded Confirmed Type lorazepam 0.5 mg tablet 0.5 mg PO Q8H PRN Anxiety 10/18/18 06/17/23 History sertraline 100 mg tablet (Zoloft) 100 mg PO QAM 10/18/18 06/17/23 History cyclobenzaprine 5 mg tablet 5 mg PO BID PRN Muscle Spasm 08/25/19 06/17/23 History omeprazole 20 mg capsule,delayed 20 mg PO BID 04/12/20 06/17/23 History release folic acid 1 mg tablet 1 mg PO QAM 05/08/20 06/17/23 History fosfomycin tromethamine 3 gram 3 g PO WK 10/01/20 06/17/23 History oral packet (Monurol) sotalol 80 mg tablet 80 mg PO BID 10/01/20 06/17/23 History cholecalciferol (vitamin D3) 50 2,000 unit PO QAM #90 tabs 04/09/21 06/17/23 Rx mcg (2,000 unit) tablet loratadine 10 mg tablet (Claritin) 10 mg PO QAM 09/18/22 06/17/23 History Portable Oxygen #1 ea 01/23/23 06/17/23 Rx acetaminophen 325 mg tablet 325 mg PO DIRECTED PRN 02/27/23 06/17/23 History (Tylenol) PAIN/FEVER albuterol sulfate 90 mcg/actuation 2 puff inhalation Q4H PRN Wheezing 02/27/23 06/17/23 History aerosol inhaler docusate sodium 100 mg capsule 100 mg PO BID 02/27/23 06/17/23 History (Stool Softener) fluoride (sodium) 1.1 % dental 1 applic dental BID 02/27/23 06/17/23 History cream (SF 5000 Plus) hydroxyzine HCl 25 mg tablet 25 mg PO HS PRN Itching 02/27/23 06/17/23 History hydrochlorothiazide 25 mg tablet 25 mg PO DAILY 04/16/23 06/17/23 History amlodipine 5 mg tablet (Norvasc) 2.5 mg PO QAM #15 tabs 05/26/23 06/17/23 Rx gabapentin 300 mg capsule 300 mg PO TID 06/17/23 06/17/23 History nystatin 100,000 unit/gram topical 1 applic topical DAILY 7 days #15 06/17/23 06/17/23 Rx cream grams prednisone 10 mg tablet 10 mg PO DAILY 06/17/23 06/17/23 History Past Med/Surg History Medical History Anemia hx blood transfusions Hgb baseline 8-9 Anxiety and depression Atrial fibrillation No AC due to GI bleed and anemia Chronic hypoxemic respiratory failure Chronic right-sided HF (heart failure) Likely per cardio secondary to obesity hypo ventilatory syndrome/Pickwickian CKD (chronic kidney disease), stage III follows [address] Lepe Dyspnea on exertion GERD (gastroesophageal reflux disease) History of kidney stones HTN (hypertension) Interstitial lung disease Obesity (BMI 30-39.9) On home oxygen therapy 3L/MIN NC PRN SOB BERRY (obstructive sleep apnea) On nocturnal O2 at 2lpm- could not tolerate CPAP per records Osteoarthritis Ovarian cancer dx'd 07/2020 - surgery + chemo Pacemaker IMPLANTED APRIL 2020 FOR A-FIB/TACHY-LAKEISHA SYNDROME (FOLLOWS WITH DR. WELSH). last check 3 weeks ago Restless leg syndrome Secondary pulmonary hypertension Sick sinus syndrome Spinal stenosis HX Surgical History H/O arthroscopy of knee H/O cystoscopy H/O gastric bypass "1980, reversed in same year" History of appendectomy (~09/07/20) History of arthroscopy LEFT KNEE History of colonoscopy History of ERCP (~09/2020) History of esophagogastroduodenoscopy (EGD) History of herniorrhaphy VENTRAL HERNIA REPAIR= 04/27/17= GRADE VIEW 2, CLEMENTE#2, ETT 7.0 AT [facility] History of lithotripsy History of tonsillectomy History of total hysterectomy with bilateral salpingo-[place]oph[place] (BSO) (~09[place]07/[place] [facility] [place] History of vascular access device removed [place] teeth removed Family History Mother Scleroderma Lupus Family history of reaction to anesthesia nausea Father Coronary heart disease Heart disease Brother Fatty liver Aunt Cancer unspecified Grandfather (Paternal) Heart disease Grandfather (Maternal) Lung disease Grandmother (Paternal) Stroke Grandmother (Maternal) Family history of diabetes mellitus Social History Smoking Status: Former smoker Tobacco Type: Cigarettes Cigarettes Per Day: couple cigs on weekends in ; Second Hand Exposure: No; Do You Dip or Chew Tobacco: No; Tobacco Cessation Education Requested by Patient: No Hx Alcohol Use: No Hx Substance Use: No Preferred Language: Dominican Communication Ability: Effective Visual Impairment: No Limitations Gum Sprayer Required: No Beliefs That Will Affect Care: None marital status: Current Living Situation: Alone Current Living Situation Comment: home health current occupational status: retired How many Children do You have: 0 Other Information That Helps Us Care for You: No Feels Safe at Home: Yes Safety Concerns: Feels Safe At This Time Diet: regular during the past year weight has: remained stable Assistive Devices: Cane, Oxygen - Continuous and Wheelchair Review of Systems Review of Systems: All systems reviewed & are unremarkable except as noted in HPI & below Physical Exam Physical Exam: General: no acute distress, obese Head: normocephalic, atraumatic Eyes: conjunctiva non-injected, anicteric ENT: normal inspection external ears, nose, mucous membranes moist Neck: supple, trachea midline Lungs: no respiratory distress on current 5L oxygen via NC with sat 93%, faint rales bases, otherwise no wheezing or rhonchi noted CV: RRR, no murmur, trace pretibial edema Abd: normal BS, soft, non-tender Ext: no cyanosis, no calf tenderness Neuro: A&O x 3, no focal deficits noted, normal affect Skin: warm, dry Results & Data Results & Data Vital Signs (Past 12 Hours) Vital Signs Temp Pulse Resp BP Pulse Ox O2 Del Method O2 Flow Rate 06/17/23 16:42 68 06/17/23 16:20 67 23 93 Nasal Cannula 5 06/17/23 16:10 67 24 93 06/17/23 16:01 69 18 92 06/17/23 16:01 138/62 06/17/23 16:00 71 18 92 06/17/23 15:50 65 25 H 95 06/17/23 15:40 66 25 H 94 06/17/23 15:31 139/57 L 06/17/23 15:31 69 18 96 06/17/23 15:30 68 27 H 94 06/17/23 15:20 68 24 95 06/17/23 15:19 68 21 94 06/17/23 15:37 94 Nasal Cannula 5 06/17/23 14:47 87 L Nasal Cannula 4 06/17/23 14:47 Nasal Cannula 5 06/17/23 14:19 36.0 C L 73 20 122/85 87 L Nasal Cannula 4 Laboratory Results Short CBC 06/17/23 Range/Units 14:44 WBC 6.29 (4.8-10.8) K/ul Hgb 9.1 L (12.0-16.0) g/dl Hct 29.2 L (37.0-47.0) % Plt Count 111 L (130-400) K/uL BMP 06/17/23 14:44 Sodium 136 Potassium 4.5 Chloride 97 L Carbon Dioxide 32 BUN 23 Creatinine 0.87 Glucose 185 H Calcium 9.5 Liver Function 06/17/23 Range/Units 14:44 Total Bilirubin 0.5 (0.2-1.0) mg/dl AST 25 (13-39) U/L ALT 32 (7-52) U/L Alkaline Phosphatase 106 H (34-104) U/L Albumin 3.8 (3.4-5.0) gm/dl Diagnostic Findings Chest X-Ray 06/17/23 15:36 SINGLE VIEW CHEST CLINICAL HISTORY: Dyspnea. FINDINGS: An AP, portable, upright chest radiograph is compared to study dated 05/23/2023 and correlated with chest CT dated 05/19/2023. A 2-lead cardiac pacemaker is unchanged in position. The heart is enlarged noting atherosclerotic calcification of the thoracic aorta. There is pulmonary vascular congestion. Bilateral airspace opacities are seen throughout both lungs. No large pleural effusion or pneumothorax is seen. The skeletal structures are osteopenic. The bony thorax is grossly intact. Surgical clips are noted in the upper abdomen. IMPRESSION: 1. Cardiomegaly and cardiac pacemaker with evidence of congestive failure. 2. Diffuse bilateral airspace opacities likely represent pulmonary edema. Correlate clinically for evidence of a superimposed infectious/inflammatory pneumonitis. Radiographic follow-up to resolution is recommended. ACT 112: Negative or not required by law. Electronically signed by: Freddie Mae M.D. 06/17/2023 4:05 PM ECG Additional Comments: reviewed: rate 70, sinus rhythm. nonspecific st changes are similar to EKG compared on 05/19/23 per my review Supervising Physician Co-Signing Physician Notes Attending addendum: The patient was seen and examined in the emergency room She has been complaining of more shortness of breath with minimal exertion for the last few days Does have occasional cough but denies any fever and or chills Denies any weight gain and does not have any swelling of the legs No chest pain and/or palpitation On examination Minimal shortness of breath at rest Hemodynamically stable Chest decreased breath sounds bilaterally with occasional crackles right base HeartS1, S2 regular Abdomen benign Extremitiestrace edema bilaterally Her admission labs, EKG and imaging studies reviewed Has acute on chronic respiratory failure with hypoxia likely secondary to congestive heart failure with history of interstitial lung disease and is complicated by possible pneumonia Has been requiring more oxygen at home to maintain saturation and getting more short of breath with minimal exertion Personal atrial fibrillation status post pacemaker BERRY Will start her on intravenous ceftriaxone and doxycycline, Solu-Medrol, intravenous Lasix and continue with nebulized bronchodilators Agree with assessment and plan as outlined above by DEAN Dasilva Dr
[2023-06-17 17:34] LABS: Adenovirus PCR Not Detected (NotDetected); Bordetella parapertussis PCR Not Detected (NotDetected); Bordetella pertussis PCR Not Detected (NotDetected); Chlamydia pneumoniae PCR Not Detected (NotDetected); Coronavirus 229E PCR Not Detected (NotDetected); Coronavirus CoV-2 (COVID19)PCR Not Detected (NotDetected); Coronavirus HKU1 PCR Not Detected (NotDetected); Coronavirus NL63 PCR Not Detected (NotDetected); Coronavirus OC43PCR Not Detected (NotDetected); Human Metapneumovirus PCR Not Detected (NotDetected); Influenza A PCR Not Detected (NotDetected); Influenza B PCR Not Detected (NotDetected); Mycoplasma pneumoniae PCR Not Detected (NotDetected); Parainfluenza Virus 1 PCR Not Detected (NotDetected); Parainfluenza Virus 2 PCR Not Detected (NotDetected); Parainfluenza Virus 3 PCR Not Detected (NotDetected); Parainfluenza Virus 4 PCR Not Detected (NotDetected); Respiratory Syncytial VirusPCR Not Detected (NotDetected); Rhinovirus/Enterovirus PCR Not Detected (NotDetected)
--- NOTE | 2023-06-17 18:04 | Electrocardiogram Report ---
Test Reason : Blood Pressure : / mmHG Vent. Rate : 070 BPM Atrial Rate : 070 BPM P-R Int : 140 ms QRS Dur : 084 ms QT Int : 408 ms P-R-T Axes : 041 -05 026 degrees QTc Int : 440 ms Normal sinus rhythm Minimal voltage criteria for LVH, may be normal variant Nonspecific ST abnormality Abnormal ECG When compared with ECG of 19-MAY-2023 11:06, No significant change was found Confirmed by Adolfo Dunn ([id number] on 06/17/2023 6:04:20 PM Referred By: Kat Hawthorne Confirmed By:Erasmo Dunn
[2023-06-17] MEDS ORDERED: ALBUT/IPRATROP 3MG/0.5MG NEB 3 ML VIAL NEB PRN (20:16)
[2023-06-17] MEDS ORDERED: POLYETHYLENE (MIRALAX) 17 GM PACK PO PRN (20:16)
[2023-06-17] MEDS ORDERED: CYCLOBENZAPRINE HCL 5 MG TAB PO PRN (20:16)
[2023-06-17] MEDS ORDERED: FLUORIDE DT SCH (21:00)
[2023-06-17] MEDS: DOCUSATE SODIUM 100 MG CAP PO SCH (21:32)
[2023-06-17] MEDS: SOTALOL HCL 80 MG TAB PO SCH (21:32)
[2023-06-17] MEDS: HEPARIN SOD 5,000 UNIT/0.5 ML VIAL SQ SCH (21:33)
[2023-06-17] MEDS: GABAPENTIN 300 MG CAP PO SCH (21:33)
[2023-06-17] MEDS: LORazepam 0.5 MG TAB PO PRN (21:33)
[2023-06-17] MEDS: cefTRIAXone SODIUM 2,000 MG in DEXTROSE 5% 50 ML IV SCH (21:33)
[2023-06-17] MEDS: PANTOprazole 40 MG TAB PO SCH (21:33)
[2023-06-17] MEDS: methylPREDNISolone 40 MG in SYRINGE 0 ML IV SCH (21:33)
[2023-06-17] MEDS: DOXYCYCLINE HYCLATE 100 MG in DEXTROSE 5% 100 ML IV SCH (21:34)
[2023-06-18 06:28] LABS: Basophils # (auto) 0.01 K/uL (0-0.2); Basophils % (auto) 0.2 %; Hemoglobin 8.7 g/dl (12.0-16.0); Immature Granulocytes # (auto) 0.11 K/uL (0.01-0.20); Immature Granulocytes % (auto) 2.1 %; Lymphocytes # (auto) 0.55 K/uL (1.2-3.4); Lymphocytes % (auto) 10.6 %; Mean Corpuscular Hemoglobin 28.3 pg (25.0-34.0); Mean Corpuscular Hgb Conc 31.1 g/dL (32.0-36.0); Mean Corpuscular Volume 91.2 fL (80.0-100.0); Mean Platelet Volume 10.9 fL (9.4-12.4); Monocytes # (auto) 0.21 K/uL (0.11-0.59); Neutrophils # (auto) 4.33 K/uL (1.40-6.50); Neutrophils % (auto) 83.1 %; Platelet Count 109 K/uL (130-400); RDW Coefficient of Variation 20.1 % (11.5-14.5); RDW Standard Deviation 66.9 fL (36.4-46.3); Red Blood Count 3.07 M/uL (4.20-5.40); White Blood Count 5.21 K/ul (4.8-10.8)
[2023-06-18 06:29] LABS: BUN Creatinine Ratio 24.1 (10-20); Calcium 9.3 mg/dl (8.6-10.3); Creatinine Clr Calc Pharmacy 75.6 ml/min; Est GFR (African American) 78.8 ml/min; Magnesium 1.7 mg/dl (1.7-2.4); Potassium 4.5 mmol/L (3.5-5.1)
[2023-06-18 06:52] LABS: Anisocytosis Present; Polychromasia 1+
[2023-06-18] MEDS: SOTALOL HCL 80 MG TAB PO SCH ×2 (09:24→20:24)
[2023-06-18] MEDS: LORATADINE 10 MG TAB PO SCH (09:24)
[2023-06-18] MEDS: FOLIC ACID 1 MG TAB PO SCH (09:24)
[2023-06-18] MEDS: SERTRALINE HCL 100 MG TABLET PO SCH (09:24)
[2023-06-18] MEDS: PANTOprazole 40 MG TAB PO SCH ×2 (09:24→20:26)
[2023-06-18] MEDS: DOCUSATE SODIUM 100 MG CAP PO SCH ×2 (09:25→20:30)
[2023-06-18] MEDS: CHOLECALCIFEROL 1,000 UNITS 25 MCG TAB PO SCH (09:25)
[2023-06-18] MEDS: amLODIPine BESYLATE 5 MG TAB PO SCH (09:25)
[2023-06-18] MEDS: GABAPENTIN 300 MG CAP PO SCH ×3 (09:26→20:25)
[2023-06-18] MEDS: FUROSEMIDE 40 MG/4 ML VIAL IV SCH (09:26)
[2023-06-18] MEDS: HEPARIN SOD 5,000 UNIT/0.5 ML VIAL SQ SCH ×2 (09:26→20:25)
[2023-06-18] MEDS: NYSTATIN CR 15 GM TUBE EXT SCH (09:27)
[2023-06-18] MEDS: ACETAMINOPHEN 325 MG TAB PO PRN (09:28)
[2023-06-18] MEDS: LORazepam 0.5 MG TAB PO PRN ×2 (09:29→20:25)
[2023-06-18] MEDS: DOXYCYCLINE HYCLATE 100 MG in DEXTROSE 5% 100 ML IV SCH ×2 (09:46→21:05)
[2023-06-18] MEDS: methylPREDNISolone 40 MG in SYRINGE 0 ML IV SCH (11:07)
[2023-06-18 13:29] LABS: Estimated Average Glucose 128 mg/dl; Hemoglobin A1C 6.1 % (4.5-5.6)
[2023-06-18] MEDS: ADVANCED PROBIOTIC 1250 MG CAPSULE PO SCH (14:05)
--- NOTE | 2023-06-18 14:26 | Hospitalist Progress Note ---
Date of Service June 18, 2023 Assessment & Plan (1) Acute and chronic respiratory failure with hypoxia: (2) Interstitial lung disease: (3) Dyspnea on exertion: (4) Hypomagnesemia: (5) Paroxysmal atrial fibrillation: (6) Tachy-lakeisha syndrome: (7) CKD (chronic kidney disease), stage III: (8) Chronic anemia: (9) Choledocholithiasis: (10) Mood disorder: (11) BERRY (obstructive sleep apnea): Plan: Patient is 67 y/o F with PMH chronic respiratory failure, recently on 4 L continuous, interstitial lung disease, paroxysmal atrial fibrillation not anticoagulated secondary to history of GI bleed, sick sinus syndrome s/p pacemaker, NAFLD cirrhosis, CKD III, chronic anemia, mood disorder, BERRY, history of ovarian cancer, and others listed below presented to ER with complaint of worsening hypoxia with exertion. Recent treatment for multifocal pneumonia in 2022 Acute on chronic hypoxic respiratory failure Interstitial lung disease Volume Overload Suspected Pneumonia--Less Likely Possible acute on chronic right-sided heart failure Mild pulmonary hypertension Chronic oxygen dependency on 4 L at baseline --CXR:Cardiomegaly and cardiac pacemaker with evidence of congestive failure. Diffuse bilateral airspace opacities likely represent pulmonary edema. Correlate clinically for evidence of a superimposed infectious/inflammatory pneumonitis. Radiographic follow-up to resolution is recommended. --ECHO: Mild concentric LVH. Left ventricle wall motion is normal. Left residual pressure is normal. EF 60 to 65%. Left atrium is mildly dilated. Mild mitral and tricuspid regurgitation. Mild pulmonary hypertension is present. Grade 1 diastolic dysfunction. --BNP:128 --Negative HS troponin --Negative respiratory panel -- Normal procalcitonin -- Empirically on Rocephin, doxycycline --IV Solu-Medrol transition to prednisone Continue supplemental oxygen as needed Continue IV Lasix Monitor I's and O's, daily weight Will consider cardiology/Pulm evaluation if needed May need 2 step prior to discharge Hypomagnesemia Replete electrolytes as needed Monitor Prediabetes Hyperglycemia Likely secondary to steroids HbA1c 6.1 Chronic anemia On prednisone from Dr. Marion for possible hemolytic anemia. She was on Prednisone 20mg daily however was decreased to 10mg daily No obvious bleeding issues Monitor CBC Paroxysmal atrial fibrillation Not on anticoagulation due to h/o GI bleed Continue sotalol Mood disorder Continue sertraline Continue Ativan prn SSS S/P pacemaker placement NAFLD cirrhosis Follows with [facility] gastroenterology CKD III Renal function at baseline Monitor renal functions, avoid nephrotoxic agents when possible BERRY Intolerant to CPAP, uses O2 HS H/O Choledocholithiasis H/O ERCP with stone removal and biliary stent Is to have repeat ERCP with stent removal planned in July 2023 No cholecystectomy planned H/O Ovarian Cancer S/P surgery/incomplete chemotherapy, recently seen in surveillance by epic manager onc [place] [facility] [place] 19-9 elevated at 169 on 05/05/[address] Marion DVT Px Heparin SQ Code Status Full Code Admission and Anticipated Discharge Date Admission Date: June 17, 2023 Subjective Patient is seen and examined at bedside States feeling better today Dyspnea on exertion improving Saturating well on baseline supplemental oxygen Denies any cough, chest pain, dizziness, nausea, vomiting, abdominal pain Offers no other complaints Review of Systems Review of Systems: All systems reviewed & are unremarkable except as noted in Subjective Physical Exam Physical Exam: Physical Exam: Vitals signs as noted above General Appearance:Obese, no apparent distress Head: normocephalic, Atraumatic Eyes: normal inspection, EOMI Neck: supple, Trachea midline Respiratory/Chest: Decreased breath sounds, Basal crackles, No accessory muscle use Cardiovascular: S1, S2, No murmur Abdomen/GI:Soft, Non tender, Bowel sounds present Extremities/Musculoskeletal:normal inspection, Trace pedal edema Neurologic/Psych:AAOX3, grossly no focal neurological deficits Skin: normal color, warm Results & Data Results & Data Vital Signs (Past 12 Hours) Vital Signs Temp Pulse Pulse Resp BP Pulse Ox O2 Del Method 06/18/23 11:40 60 06/18/23 11:32 Nasal Cannula 06/18/23 11:21 36.7 C 71 18 158/79 H 91 Nasal Cannula 06/18/23 08:01 36.6 C 65 18 138/63 93 Nasal Cannula 06/18/23 04:41 36.5 C 63 18 128/67 94 Nasal Cannula O2 Flow Rate 06/18/23 11:40 06/18/23 11:32 4.5 06/18/23 11:21 4 06/18/23 08:01 4 06/18/23 04:41 2 Laboratory Results Short CBC 06/17/23 06/18/23 Range/Units 14:44 05:47 WBC 6.29 5.21 (4.8-10.8) K/ul Hgb 9.1 L 8.7 L (12.0-16.0) g/dl Hct 29.2 L 28.0 L (37.0-47.0) % Plt Count 111 L 109 L (130-400) K/uL BMP 06/17/23 06/18/23 14:44 05:47 Sodium 136 136 Potassium 4.5 4.5 Chloride 97 L 96 L Carbon Dioxide 32 35 H BUN 23 21 Creatinine 0.87 0.87 Glucose 185 H 221 H Calcium 9.5 9.3 Liver Function 06/17/23 Range/Units 14:44 Total Bilirubin 0.5 (0.2-1.0) mg/dl AST 25 (13-39) U/L ALT 32 (7-52) U/L Alkaline Phosphatase 106 H (34-104) U/L Albumin 3.8 (3.4-5.0) gm/dl
[2023-06-18] MEDS: cefTRIAXone SODIUM 2,000 MG in DEXTROSE 5% 50 ML IV SCH (20:12)
[2023-06-19 08:20] LABS: BUN Creatinine Ratio 27.3 (10-20); Calcium 9.4 mg/dl (8.6-10.3); Creatinine Clr Calc Pharmacy 66.3 ml/min; Est GFR (African American) 67.4 ml/min; Est GFR (Non-African American) 58.1 ml/min; Magnesium 1.6 mg/dl (1.7-2.4)
[2023-06-19] MEDS: LORazepam 0.5 MG TAB PO PRN ×2 (08:27→21:35)
[2023-06-19] MEDS: ACETAMINOPHEN 325 MG TAB PO PRN (08:27)
[2023-06-19] MEDS: PANTOprazole 40 MG TAB PO SCH ×2 (08:28→21:25)
[2023-06-19] MEDS: GABAPENTIN 300 MG CAP PO SCH ×3 (08:28→21:24)
[2023-06-19] MEDS: SOTALOL HCL 80 MG TAB PO SCH ×2 (08:28→21:25)
[2023-06-19] MEDS: NYSTATIN CR 15 GM TUBE EXT SCH ×2 (08:29→17:42)
[2023-06-19] MEDS: amLODIPine BESYLATE 5 MG TAB PO SCH (08:29)
[2023-06-19 08:30] LABS: Hematocrit (blood only) 31.7 % (37.0-47.0); Hemoglobin 9.7 g/dl (12.0-16.0); Mean Corpuscular Hemoglobin 28.1 pg (25.0-34.0); Mean Corpuscular Hgb Conc 30.6 g/dL (32.0-36.0); Mean Corpuscular Volume 91.9 fL (80.0-100.0); Mean Platelet Volume 11.1 fL (9.4-12.4); Nucleated RBC # (auto) 0.03 K/uL (0-0.12); Nucleated RBC % (auto) 0.5 %; Platelet Count 128 K/uL (130-400); RDW Coefficient of Variation 20.4 % (11.5-14.5); RDW Standard Deviation 67.8 fL (36.4-46.3); Red Blood Count 3.45 M/uL (4.20-5.40)
[2023-06-19] MEDS: LORATADINE 10 MG TAB PO SCH (08:30)
[2023-06-19] MEDS: predniSONE 20 MG TAB PO SCH (08:30)
[2023-06-19] MEDS: ADVANCED PROBIOTIC 1250 MG CAPSULE PO SCH (08:30)
[2023-06-19] MEDS: FOLIC ACID 1 MG TAB PO SCH (08:30)
[2023-06-19] MEDS: CHOLECALCIFEROL 1,000 UNITS 25 MCG TAB PO SCH (08:30)
[2023-06-19] MEDS: SERTRALINE HCL 100 MG TABLET PO SCH (08:30)
[2023-06-19] MEDS: HEPARIN SOD 5,000 UNIT/0.5 ML VIAL SQ SCH ×2 (08:31→21:24)
[2023-06-19] MEDS: FUROSEMIDE 40 MG/4 ML VIAL IV SCH (08:53)
[2023-06-19] MEDS: DOCUSATE SODIUM 100 MG CAP PO SCH ×2 (08:53→21:35)
[2023-06-19] MEDS: DOXYCYCLINE HYCLATE 100 MG in DEXTROSE 5% 100 ML IV SCH ×2 (08:56→21:35)
[2023-06-19] MEDS ORDERED: MAGNESIUM SULFATE / D5W 1 GM/100 ML BAG IV ONE (09:45)
[2023-06-19] MEDS ORDERED: POTASSIUM CHLORIDE CRTAB 20 MEQ TABCR PO STA (10:50)
--- NOTE | 2023-06-19 10:53 | Cardiology Consultation ---
Date of Consultation June 19, 2023 Assessment & Plan (1) Acute and chronic respiratory failure with hypoxia: (2) Diastolic dysfunction: (3) Paroxysmal atrial fibrillation: Plan Please refer to physician addendum for further information as well as full plan of care. Supervising Physician Co-Signing Physician Notes Attending Staff: Pt seen and examined with [facility] staff. Concur with observations and plans 67 yo woman presenting with dyspnea and hypoxia Consult for: Question of CHF overlying ILD ProBNP - 128 (marginally elevated) ECHO * LVEF 60-65% * No WMA * Mild LVH * Mild MR/TR * Mild PH * Grade 1 diastolic dysfunction * IVC is WNL CXR - our read - prominent interstitial pattern; radiology read (evidence of CHF - superimposed) EKG: LVH; no active ischemic changes Troponin - not checked Review of weights in EMR - no dramatic changes - stable Pt noted to desat on trip to bathroom to 80% Hx: * ILD * Chronic Hypoxic Respiratory Failure * Home O2 - 4 Liters * Chronic Anemia - ? hemolytic * PAF - not on DOAC - bleeding challenges - antiarrhythmic - on Sotalol * CKD Stage 3 * HTN * Fatty Liver * Obesity Plans: * Patient may have superimposed pulmonary edema, but suspect that it is a small part of a more complex clinical picture * BNP is mildly elevated - false negative BNPs may happen with obesity, but fits with her not being markedly volume expanded * IVC is not dilated -corroborates that volume status is not expanded * + LVH, but no major left-sided valvular heart disease * No LE edema noted * Suspect that Lasix should be part of her regular regimen at a low dose to maintain current body weight * Pt appears to have PH with ILD * In order to more comprehensively review her cardiac contributions to dyspnea, would consider elective outpt Right and Left Heart Cath * + ASCVD risks; check LDL as an outpt * SBP 155 - consider increase Amlodipine to 10 mg po per day * If Pulmonary Hypertension is confirmed on RHC, patient may be a candidate for Inhaled Prostacyclin - Tyvaso - which has been approved for PH + ILD * If Pulmonary Hypertension is confirmed, would consider eval for CTEPH - given hx of CA * Consider sleep disorders/ PFTs as an outpt * Pt has an indication for anticoagulation (afib) but not on at present * Pt may benefit from High Resolution Chest CT * Pt may benefit from Pulmonary Rehab * Continue supplemental O2 * If diurese - please keep K+ at goal of 4.5-5 and Mag >2 (to avoid metabolic alkalosis) * Please call with any additional questions or concerns Fady Osorio History of Present Illness Attending Physician: Jose Dixon MD History of Present Illness 67-year-old female who presents to the emergency department due to worsening shortness of breath and hypoxia. Recent admission 05/19 and 05/26 for acute on chronic respiratory failure secondary to multifocal pneumonia treated with Rocephin and doxycycline. Has been utilizing supplemental oxygen therapy since discharge. Has been doing physical therapy at home, pulse ox dropping in the high 80s with exertional shortness of breath. Chest x-ray revealed: Pulmonary edema CHF versus superimposed infectious/inflammatory pneumonitis. Was given 40 mg of IV Lasix in the emergency department. Not normally on diuretic therapy. EKG showing normal sinus rhythm, 70 bpm with a stable QTc of [address] segment changes suggestive of ischemia. Echocardiogram revealed a preserved LV systolic function of 60 to 65% without wall motion abnormality. Mild concentric LVH. Mild MR and TR. Mild pulmonary hypertension with a PASP of 40 mmHg. Grade 1 diastolic dysfunction. Past medical history: Paroxysmal atrial fibrillation/flutter with tachybradycardia syndrome, status post permanent pacemaker 04/2020. On sotalol, started 04/2020 Not on Coumadin due to bleeding issues Did not tolerate amiodarone due to GI issues Chronic anemia, follows with hematology-questionable hemolytic anemia Morbid obesity with BERRY, noncompliant with CPAP. Wears supplemental O2. Interstitial lung disease, follows with pulmonary CKD stable Hypertension Ovarian CA in remission Nonalcoholic fatty liver cirrhosis CKD stage III Allergies Allergy/AdvReac Type Severity Reaction Status Date / Time levofloxacin Allergy Intermediate LE Verified 06/15/23 09:27 swelling and blistering paclitaxel [From Taxol] Allergy Intermediate facial Verified 06/15/23 09:27 flushing, bradycardia doxorubicin AdvReac Severe Hypoxia Verified 06/15/23 09:27 clindamycin AdvReac Intermediate PT Verified 06/15/23 09:27 CONTRACTED C-DIFF shellfish derived AdvReac Intermediate NAUSEA,DIARRHEA, Verified 06/15/23 09:27 VOMITING adhesive AdvReac Mild SKIN Verified 06/15/23 09:27 BLISTERS SOME TIMES Home Medications Medication Instructions Recorded Confirmed Type lorazepam 0.5 mg tablet 0.5 mg PO Q8H PRN Anxiety 10/18/18 06/17/23 History sertraline 100 mg tablet (Zoloft) 100 mg PO QAM 10/18/18 06/17/23 History cyclobenzaprine 5 mg tablet 5 mg PO BID PRN Muscle Spasm 08/25/19 06/17/23 History omeprazole 20 mg capsule,delayed 20 mg PO BID 04/12/20 06/17/23 History release folic acid 1 mg tablet 1 mg PO QAM 05/08/20 06/17/23 History fosfomycin tromethamine 3 gram 3 g PO WK 10/01/20 06/17/23 History oral packet (Monurol) sotalol 80 mg tablet 80 mg PO BID 10/01/20 06/17/23 History cholecalciferol (vitamin D3) 50 2,000 unit PO QAM #90 tabs 04/09/21 06/17/23 Rx mcg (2,000 unit) tablet loratadine 10 mg tablet (Claritin) 10 mg PO QAM 09/18/22 06/17/23 History Portable Oxygen #1 ea 01/23/23 06/17/23 Rx acetaminophen 325 mg tablet 325 mg PO DIRECTED PRN 02/27/23 06/17/23 History (Tylenol) PAIN/FEVER albuterol sulfate 90 mcg/actuation 2 puff inhalation Q4H PRN Wheezing 02/27/23 06/17/23 History aerosol inhaler docusate sodium 100 mg capsule 100 mg PO BID 02/27/23 06/17/23 History (Stool Softener) fluoride (sodium) 1.1 % dental 1 applic dental BID 02/27/23 06/17/23 History cream (SF 5000 Plus) hydroxyzine HCl 25 mg tablet 25 mg PO HS PRN Itching 02/27/23 06/17/23 History hydrochlorothiazide 25 mg tablet 25 mg PO DAILY 04/16/23 06/17/23 History amlodipine 5 mg tablet (Norvasc) 2.5 mg PO QAM #15 tabs 05/26/23 06/17/23 Rx gabapentin 300 mg capsule 300 mg PO TID 06/17/23 06/17/23 History nystatin 100,000 unit/gram topical 1 applic topical DAILY 7 days #15 06/17/23 06/17/23 Rx cream grams prednisone 10 mg tablet 10 mg PO DAILY 06/17/23 06/17/23 History Patient History Medical History Anemia hx blood transfusions Hgb baseline 8-9 Anxiety and depression Atrial fibrillation No AC due to GI bleed and anemia Chronic hypoxemic respiratory failure Chronic right-sided HF (heart failure) Likely per cardio secondary to obesity hypo ventilatory syndrome/Pickwickian CKD (chronic kidney disease), stage III follows [address] 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 WELSH). last check 3 weeks ago Restless leg syndrome Secondary pulmonary hypertension Sick sinus syndrome Spinal stenosis HX Surgical History H/O arthroscopy of knee H/O cystoscopy H/O gastric bypass "1980, reversed in same year" History of appendectomy (~09/07/20) History of arthroscopy LEFT KNEE History of colonoscopy History of ERCP (~09/2020) History of esophagogastroduodenoscopy (EGD) History of herniorrhaphy VENTRAL HERNIA REPAIR= 04/27/17= GRADE VIEW 2, CLEMENTE#2, ETT 7.0 AT [facility] History of lithotripsy History of tonsillectomy History of total hysterectomy with bilateral salpingo-oophorectomy (BSO) (~09/07/20) @ [facility] with appy at same time History of vascular access device removed [place] teeth removed Family History Mother Scleroderma Lupus Family history of reaction to anesthesia nausea Father Coronary heart disease Heart disease Brother Fatty liver Aunt Cancer unspecified Grandfather (Paternal) Heart disease Grandfather (Maternal) Lung disease Grandmother (Paternal) Stroke Grandmother (Maternal) Family history of diabetes mellitus Social History Smoking Status: Former smoker Tobacco Type: Cigarettes Cigarettes Per Day: couple cigs on weekends in ; Second Hand Exposure: No; Do You Dip or Chew Tobacco: No; Tobacco Cessation Education Requested by Patient: No Hx Alcohol Use: No Hx Substance Use: No Preferred Language: Icelandic Communication Ability: Effective Visual Impairment: No Limitations Clay Transporter Required: No Beliefs That Will Affect Care: None marital status: Current Living Situation: Alone Current Living Situation Comment: home health current occupational status: retired How many Children do You have: 0 Other Information That Helps Us Care for You: No Feels Safe at Home: Yes Safety Concerns: Feels Safe At This Time Diet: regular during the past year weight has: remained stable Assistive Devices: Oxygen - Continuous, Raised Toilet Seat and Walker Physical Exam Physical Exam: Obese No elevation in JVP S1S2 soft 2/6 systolic murmur Crackles peripherally No edema Warm and perfusing Results & Data Vital Signs (Past 12 Hours) Vital Signs Temp Pulse Resp BP BP Pulse Ox O2 Del Method 06/19/23 08:39 Nasal Cannula 06/19/23 08:29 36.7 C 71 18 155/78 H 93 Nasal Cannula 06/19/23 08:26 36.5 C 62 16 149/73 H 92 Nasal Cannula 06/19/23 04:37 36.4 C L 64 20 163/83 H 95 Nasal Cannula 06/18/23 23:30 36.7 C 64 20 146/71 H 92 Nasal Cannula 06/19/23 01:00 Nasal Cannula O2 Flow Rate 06/19/23 08:39 4 06/19/23 08:29 4 06/19/23 08:26 4 06/19/23 04:37 4 06/18/23 23:30 4 06/19/23 01:00 4 Laboratory Results CBC 06/19/23 Range/Units 07:03 WBC 6.60 (4.8-10.8) K/ul RBC 3.45 L (4.20-5.40) M/uL Hgb 9.7 L (12.0-16.0) g/dl Hct 31.7 L (37.0-47.0) % Plt Count 128 L (130-400) K/uL Comprehensive Metabolic Panel 06/19/23 Range/Units 07:03 Sodium 134 L (136-145) mmol/L Potassium 4.0 (3.5-5.1) mmol/L Chloride 93 L (98-107) mmol/L Carbon Dioxide 34 H (21-32) mmol/L BUN 27 H (6-23) mg/dl Creatinine 0.99 (0.6-1.2) mg/dl Glucose 101 H (70-99(Fasting)) mg/dl Calcium 9.4 (8.6-10.3) mg/dl Intake and Output 06/18/23 06/19/23 06/19/23 22:59 06:59 14:59 Intake Total 260 / 1780 830 / 1780 Balance 260 / 1780 830 / 1780 Intake: IV 180 / 290 Doxycycline Hyclate 100 mg In 110 / 220 Dextrose 5% 100 ml @ 50 mls/hr IV Q12H [facility] Rx#:[id number] cefTRIAXone SODIUM 2,000 mg In 70 / 70 Dextrose 5% 50 ml @ 100 mls/hr IV Q24H [facility] Rx#:[id number] Oral 260 / 1490 650 / 1490 Other: # Unmeasured Voids 1 Weight 103.5 kg Weight Measurement Method Standing Scale Stated by Patient Medications Administered Current Inpatient Medications Acetaminophen (Acetaminophen 325 Mg Tab) 650 mg PO Q4H PRN PRN Reason: Pain or Fever Stop: 07/17/23 20:15 Last Admin: 06/19/23 08:27 Dose: 650 mg Albuterol (Albut/Ipratrop 3mg/0.5mg Neb 3 Ml Vial) 3 ml NEB Q4H PRN; Protocol PRN Reason: Shortness Of Breath Or Wheezing Stop: 07/17/23 20:15 Amlodipine Besylate (Amlodipine Besylate 5 Mg Tab) 2.[facility] Stop: 07/18/23 08:59 Last Admin: 06/19/23 08:29 Dose: 2.5 mg Cyclobenzaprine HCl (Cyclobenzaprine Hcl 5 Mg Tab) 5 mg PO BID PRN PRN Reason: Muscle Spasm Stop: 07/17/23 20:15 Docusate Sodium (Docusate Sodium 100 Mg Cap) 100 mg PO BID [facility] Stop: 07/17/23 20:59 Last Admin: 06/19/23 08:53 Dose: 100 mg Folic Acid (Folic Acid 1 Mg Tab) 1 mg PO QAM [facility] Stop: 07/18/23 08:59 Last Admin: 06/19/23 08:30 Dose: 1 mg Furosemide (Furosemide 40 Mg/4 Ml Vial) 40 mg IV DAILY [facility] Stop: 07/18/23 08:59 Last Admin: 06/19/23 08:53 Dose: 40 mg Gabapentin (Gabapentin 300 Mg Cap) 300 mg PO TID [facility] Stop: 07/17/23 20:59 Last Admin: 06/19/23 08:28 Dose: 300 mg Heparin Sodium (Porcine) (Heparin Sod 5,000 Unit/0.5 Ml Vial) 5,000 units SQ Q12 [facility] Stop: 07/17/23 20:59 Last Admin: 06/19/23 08:31 Dose: 5,000 units Ceftriaxone Sodium 2,000 mg/ (Dextrose) 70 mls @ 100 mls/hr IV Q24H [facility]; Protocol Stop: 06/24/23 20:59 Last Infusion: 06/18/23 23:17 Dose: Infused Doxycycline Hyclate 100 mg/ (Dextrose) 110 mls @ 50 mls/hr IV Q12H [facility] Stop: 06/24/23 20:59 Last Admin: 06/19/23 08:56 Dose: 50 mls/hr Magnesium Sulfate/Dextrose (Magnesium Sulfate / D5w) 1 gm in 100 mls @ 50 mls/hr IV ONE ONE Stop: 06/19/23 11:44 Lactobacillus Acidophilus (Advanced Probiotic 1250 Mg Capsule) 2 cap PO DAILY [facility] Stop: 07/18/23 12:29 Last Admin: 06/19/23 08:30 Dose: 2 cap Loratadine (Loratadine 10 Mg Tab) 10 mg PO QAM [facility] Stop: 07/18/23 08:59 Last Admin: 06/19/23 08:30 Dose: 10 mg Lorazepam (Lorazepam 0.5 Mg Tab) 0.5 mg PO Q8H PRN PRN Reason: Anxiety Stop: 07/17/23 20:15 Last Admin: 06/19/23 08:27 Dose: 0.5 mg Nystatin (Nystatin Cr 15 Gm Tube) 1 appln EXT DAILY [facility] Stop: 07/18/23 08:59 Last Admin: 06/19/23 08:29 Dose: 1 appln Pantoprazole Sodium (Pantoprazole 40 Mg Tab) 40 mg PO BID [facility] Stop: 07/17/23 20:59 Last Admin: 06/19/23 08:28 Dose: 40 mg Polyethylene Glycol (Polyethylene (Miralax) 17 Gm Pack) 17 gm PO DAILY PRN PRN Reason: Constipation Stop: 07/17/23 20:15 Prednisone (Prednisone 20 Mg Tab) 20 mg PO DAILY [facility] Stop: 07/19/23 08:59 Last Admin: 06/19/23 08:30 Dose: 20 mg Sertraline HCl (Sertraline Hcl 100 Mg Tablet) 100 mg [facility] Stop: 07/18/23 08:59 Last Admin: 06/19/23 08:30 Dose: 100 mg Sotalol HCl (Sotalol Hcl 80 Mg Tab) 80 mg PO BID [facility] Stop: 07/17/23 20:59 Last Admin: 06/19/23 08:28 Dose: 80 mg Vitamin D (Cholecalciferol 1,000 Units 25 Mcg Tab) 2,000 units PO QAM [facility] Stop: 07/18/23 08:59 Last Admin: 06/19/23 08:30 Dose: 2,000 units
--- NOTE | 2023-06-19 17:06 | Hospitalist Progress Note ---
Date of Service June 19, 2023 Assessment & Plan (1) Acute and chronic respiratory failure with hypoxia: (2) Interstitial lung disease: (3) Dyspnea on exertion: (4) Hypomagnesemia: (5) Paroxysmal atrial fibrillation: (6) Tachy-lakeisha syndrome: (7) CKD (chronic kidney disease), stage III: (8) Chronic anemia: (9) Choledocholithiasis: (10) Mood disorder: (11) BERRY (obstructive sleep apnea): Plan: Patient is 67 y/o F with PMH chronic respiratory failure, recently on 4 L continuous, interstitial lung disease, paroxysmal atrial fibrillation not anticoagulated secondary to history of GI bleed, sick sinus syndrome s/p pacemaker, NAFLD cirrhosis, CKD III, chronic anemia, mood disorder, BERRY, history of ovarian cancer, and others listed below presented to ER with complaint of worsening hypoxia with exertion. Recent treatment for multifocal pneumonia in 2022 Acute on chronic hypoxic respiratory failure Interstitial lung disease Volume Overload Suspected Pneumonia--Less Likely Possible acute on chronic right-sided heart failure Mild pulmonary hypertension Chronic oxygen dependency on 4 L at baseline --CXR:Cardiomegaly and cardiac pacemaker with evidence of congestive failure. Diffuse bilateral airspace opacities likely represent pulmonary edema. Correlate clinically for evidence of a superimposed infectious/inflammatory pneumonitis. Radiographic follow-up to resolution is recommended. --ECHO: Mild concentric LVH. Left ventricle wall motion is normal. Left residual pressure is normal. EF 60 to 65%. Left atrium is mildly dilated. Mild mitral and tricuspid regurgitation. Mild pulmonary hypertension is present. Grade 1 diastolic dysfunction. --BNP:128 --Negative HS troponin --Negative respiratory panel -- Normal procalcitonin -- Empirically on Rocephin, doxycycline --IV Solu-Medrol transition to prednisone Continue supplemental oxygen as needed Continue IV Lasix Monitor I's and O's, daily weight Will consider cardiology/Pulm evaluation if needed May need 2 step prior to discharge Appreciate cardiology Will likely need right and left heart cardiac catheterization as outpatient Increase amlodipine dose as recommended by cardiology Monitor BP Continue IV diuresis for now Hypomagnesemia Replete electrolytes as needed Monitor Prediabetes Hyperglycemia Likely secondary to steroids HbA1c 6.1 Chronic anemia On prednisone from Dr. Marion for possible hemolytic anemia. She was on Prednisone 20mg daily however was decreased to 10mg daily No obvious bleeding issues Monitor CBC Paroxysmal atrial fibrillation Not on anticoagulation due to h/o GI bleed Continue sotalol Mood disorder Continue sertraline Continue Ativan prn SSS S/P pacemaker placement NAFLD cirrhosis Follows with [facility] gastroenterology CKD III Renal function at baseline Monitor renal functions, avoid nephrotoxic agents when possible BERRY Intolerant to CPAP, uses O2 HS H/O Choledocholithiasis H/O ERCP with stone removal and biliary stent Is to have repeat ERCP with stent removal planned in July 2023 No cholecystectomy planned H/O Ovarian Cancer S/P surgery/incomplete chemotherapy, recently seen in surveillance by processing tech onc at [facility] and [place] 19-9 elevated at 169 on 05/05/[address] Marion DVT Px Heparin SQ Code Status Full Code Admission and Anticipated Discharge Date Admission Date: June 17, 2023 Subjective Patient is seen and examined at bedside States having dyspnea on exertion Reports desaturation with ambulation this morning No other complaints Denies any cough, chest pain, dizziness, nausea, vomiting, abdominal pain Review of Systems Review of Systems: All systems reviewed & are unremarkable except as noted in Subjective Physical Exam Physical Exam: Physical Exam: Vitals signs as noted above General Appearance:Obese, no apparent distress Head: normocephalic, Atraumatic Eyes: normal inspection, EOMI Neck: supple, Trachea midline Respiratory/Chest: Decreased breath sounds, Basal crackles, No accessory muscle use Cardiovascular: S1, S2, No murmur Abdomen/GI:Soft, Non tender, Bowel sounds present Extremities/Musculoskeletal:normal inspection, Trace pedal edema Neurologic/Psych:AAOX3, grossly no focal neurological deficits Skin: normal color, warm Results & Data Results & Data Vital Signs (Past 12 Hours) Vital Signs Temp Pulse Pulse Resp BP BP Pulse Ox 06/19/23 16:05 36.9 C 69 20 132/75 90 06/19/23 15:26 71 06/19/23 13:42 62 06/19/23 11:52 36.5 C 64 18 146/65 H 91 06/19/23 08:39 06/19/23 08:29 36.7 C 71 18 155/78 H 93 06/19/23 08:26 36.5 C 62 16 149/73 H 92 O2 Del Method O2 Flow Rate 06/19/23 16:05 Nasal Cannula 4 06/19/23 15:26 06/19/23 13:42 06/19/23 11:52 Nasal Cannula 4 06/19/23 08:39 Nasal Cannula 4 06/19/23 08:29 Nasal Cannula 4 06/19/23 08:26 Nasal Cannula 4 Laboratory Results Short CBC 06/19/23 Range/Units 07:03 WBC 6.60 (4.8-10.8) K/ul Hgb 9.7 L (12.0-16.0) g/dl Hct 31.7 L (37.0-47.0) % Plt Count 128 L (130-400) K/uL BMP 06/19/23 07:03 Sodium 134 L Potassium 4.0 Chloride 93 L Carbon Dioxide 34 H BUN 27 H Creatinine 0.99 Glucose 101 H Calcium 9.4
[2023-06-19] MEDS: cefTRIAXone SODIUM 2,000 MG in DEXTROSE 5% 50 ML IV SCH (21:35)
[2023-06-20 06:43] LABS: Hematocrit (blood only) 31.3 % (37.0-47.0); Hemoglobin 9.6 g/dl (12.0-16.0); Mean Corpuscular Hemoglobin 28.3 pg (25.0-34.0); Mean Corpuscular Hgb Conc 30.7 g/dL (32.0-36.0); Mean Corpuscular Volume 92.3 fL (80.0-100.0); Mean Platelet Volume 10.8 fL (9.4-12.4); Platelet Count 131 K/uL (130-400); RDW Coefficient of Variation 20.6 % (11.5-14.5); RDW Standard Deviation 69.5 fL (36.4-46.3); Red Blood Count 3.39 M/uL (4.20-5.40); White Blood Count 6.56 K/ul (4.8-10.8)
[2023-06-20 06:58] LABS: BUN Creatinine Ratio 29.6 (10-20); Calcium 9.5 mg/dl (8.6-10.3); Creatinine Clr Calc Pharmacy 59.7 ml/min; Est GFR (African American) 60.7 ml/min; Est GFR (Non-African American) 52.3 ml/min; Magnesium 1.8 mg/dl (1.7-2.4); Potassium 3.9 mmol/L (3.5-5.1)
[2023-06-20] MEDS: predniSONE 20 MG TAB PO SCH (09:10)
[2023-06-20] MEDS: SERTRALINE HCL 100 MG TABLET PO SCH (09:10)
[2023-06-20] MEDS: amLODIPine BESYLATE 5 MG TAB PO SCH (09:10)
[2023-06-20] MEDS: CHOLECALCIFEROL 1,000 UNITS 25 MCG TAB PO SCH (09:10)
[2023-06-20] MEDS: PANTOprazole 40 MG TAB PO SCH ×2 (09:10→20:24)
[2023-06-20] MEDS: SOTALOL HCL 80 MG TAB PO SCH ×2 (09:10→20:24)
[2023-06-20] MEDS: LORATADINE 10 MG TAB PO SCH (09:10)
[2023-06-20] MEDS: ADVANCED PROBIOTIC 1250 MG CAPSULE PO SCH (09:11)
[2023-06-20] MEDS: GABAPENTIN 300 MG CAP PO SCH ×3 (09:11→20:23)
[2023-06-20] MEDS: HEPARIN SOD 5,000 UNIT/0.5 ML VIAL SQ SCH ×2 (09:11→20:25)
[2023-06-20] MEDS: NYSTATIN CR 15 GM TUBE EXT SCH (09:11)
[2023-06-20] MEDS: FOLIC ACID 1 MG TAB PO SCH (09:11)
[2023-06-20] MEDS: DOXYCYCLINE HYCLATE 100 MG in DEXTROSE 5% 100 ML IV SCH ×2 (09:19→21:44)
[2023-06-20] MEDS: FUROSEMIDE 40 MG/4 ML VIAL IV SCH ×2 (09:19→18:23)
[2023-06-20] MEDS: DOCUSATE SODIUM 100 MG CAP PO SCH ×2 (09:19→20:30)
[2023-06-20] MEDS: ACETAMINOPHEN 325 MG TAB PO PRN (09:19)
[2023-06-20] MEDS: LORazepam 0.5 MG TAB PO PRN ×2 (09:21→20:30)
--- NOTE | 2023-06-20 10:27 | XRay Report ---
XR chest 1V portable HISTORY: Congestive heart failure. Shortness of breath. COMPARISON: Chest 06/17/2023. FINDINGS: There are low lung volumes. No pneumothorax. There is left-sided dual-chamber pacemaker aga in noted. The heart remains mildly enlarged. There are surgical clips at the epigastric region. Inter stitial/vascular thickening most pronounced on the left is again noted. This is similar to the prior study. There are left perihilar airspace and patchy right lung airspace opacities. This also remains unchanged. IMPRESSION: Overall, no significant change compared to the prior study. Mild cardiomegaly with interstitial thick ening and bilateral airspace opacities persist. This favors pulmonary edema. A superimposed pneumonia could also have a similar appearance in the appropriate clinical setting. ACT 112: Negative or not required by law. Electronically signed by: Karthik Cantu M.D. 06/20/2023 10:26 AM
--- NOTE | 2023-06-20 14:11 | Hospitalist Progress Note ---
Date of Service June 20, 2023 Assessment & Plan (1) Acute and chronic respiratory failure with hypoxia: (2) Interstitial lung disease: (3) Dyspnea on exertion: (4) Hypomagnesemia: (5) Paroxysmal atrial fibrillation: (6) Tachy-lakeisha syndrome: (7) CKD (chronic kidney disease), stage III: (8) Chronic anemia: (9) Choledocholithiasis: (10) Mood disorder: (11) BERRY (obstructive sleep apnea): Plan: Patient is 67 y/o F with PMH chronic respiratory failure, recently on 4 L continuous, interstitial lung disease, paroxysmal atrial fibrillation not anticoagulated secondary to history of GI bleed, sick sinus syndrome s/p pacemaker, NAFLD cirrhosis, CKD III, chronic anemia, mood disorder, BERRY, history of ovarian cancer, and others listed below presented to ER with complaint of worsening hypoxia with exertion. Recent treatment for multifocal pneumonia in 2022 Acute on chronic hypoxic respiratory failure Interstitial lung disease Volume Overload Suspected Pneumonia--Less Likely Possible acute on chronic right-sided heart failure Mild pulmonary hypertension Chronic oxygen dependency on 4 L at baseline --CXR:Cardiomegaly and cardiac pacemaker with evidence of congestive failure. Diffuse bilateral airspace opacities likely represent pulmonary edema. Correlate clinically for evidence of a superimposed infectious/inflammatory pneumonitis. Radiographic follow-up to resolution is recommended. --ECHO: Mild concentric LVH. Left ventricle wall motion is normal. Left residual pressure is normal. EF 60 to 65%. Left atrium is mildly dilated. Mild mitral and tricuspid regurgitation. Mild pulmonary hypertension is present. Grade 1 diastolic dysfunction. --BNP:128 --Negative HS troponin --Negative respiratory panel -- Normal procalcitonin -- Empirically on Rocephin, doxycycline --IV Solu-Medrol transition to prednisone--continue home dose 10mg daily Continue supplemental oxygen as needed Monitor I's and O's, daily weight Appreciate Cardiology Input Needs 2 step prior to discharge Appreciate cardiology Input Will likely need right and left heart cardiac catheterization as outpatient Increase amlodipine dose to 5mg daily Increase Lasix to 40 mg twice daily We will consider pulmonary evaluation Will benefit from pulmonary rehab upon discharge Recheck BNP in AM Hypomagnesemia Replete electrolytes as needed Monitor Prediabetes Hyperglycemia Likely secondary to steroids HbA1c 6.1 Chronic anemia On prednisone from Dr. Marion for possible hemolytic anemia. She was on Prednisone 20mg daily however was decreased to 10mg daily No obvious bleeding issues Monitor CBC Paroxysmal atrial fibrillation Not on anticoagulation due to h/o GI bleed Continue sotalol Mood disorder Continue sertraline Continue Ativan prn SSS S/P pacemaker placement NAFLD cirrhosis Follows with [facility] gastroenterology CKD III Renal function at baseline Monitor renal functions, avoid nephrotoxic agents when possible BERRY Intolerant to CPAP, uses O2 HS H/O Choledocholithiasis H/O ERCP with stone removal and biliary stent Is to have repeat ERCP with stent removal planned in July 2023 No cholecystectomy planned H/O Ovarian Cancer S/P surgery/incomplete chemotherapy, recently seen in surveillance by [employer] [employer] onc at [facility] and [place] 19-9 elevated at 169 on 05/05/[address] Marion DVT Px Heparin SQ Code Status Full Code Admission and Anticipated Discharge Date Admission Date: June 17, 2023 Subjective Patient is seen and examined at bedside Clinically no significant change from yesterday Patient desaturates with ambulation Chest x-ray today showed findings suggestive of pulmonary edema Reports dyspnea on exertion Denies any cough, chest pain, dizziness, nausea, vomiting, abdominal pain Review of Systems Review of Systems: All systems reviewed & are unremarkable except as noted in Subjective Physical Exam Physical Exam: Physical Exam: Vitals signs as noted above General Appearance:Obese, no apparent distress Head: normocephalic, Atraumatic Eyes: normal inspection, EOMI Neck: supple, Trachea midline Respiratory/Chest: Decreased breath sounds, Basal crackles, No accessory muscle use Cardiovascular: S1, S2, No murmur Abdomen/GI:Soft, Non tender, Bowel sounds present Extremities/Musculoskeletal:normal inspection, Trace pedal edema Neurologic/Psych:AAOX3, grossly no focal neurological deficits Skin: normal color, warm Results & Data Results & Data Vital Signs (Past 12 Hours) Vital Signs Temp Pulse Pulse Pulse Pulse Pulse Pulse 06/20/23 11:35 37.0 C 06/20/23 10:20 99 H 84 83 73 73 70 06/20/23 07:49 36.7 C 06/20/23 03:00 36.4 C L Pulse Resp Resp Resp Resp Resp Resp 06/20/23 11:35 62 18 06/20/23 10:20 26 H 26 H 26 H 18 18 06/20/23 07:49 70 20 06/20/23 03:00 61 20 Resp BP BP Pulse Ox Pulse Ox Pulse Ox Pulse Ox 06/20/23 11:35 136/76 91 06/20/23 10:20 18 85 L 87 L 91 06/20/23 07:49 144/81 H 92 06/20/23 03:00 153/74 H 92 Pulse Ox Pulse Ox Pulse Ox O2 Del Method O2 Flow Rate O2 Flow Rate O2 Flow Rate 06/20/23 11:35 Nasal Cannula 3 06/20/23 10:20 81 L 92 74 L 3 4 06/20/23 07:49 Nasal Cannula 4 06/20/23 03:00 Nasal Cannula 4 O2 Flow Rate O2 Flow Rate O2 Flow Rate 06/20/23 11:35 06/20/23 10:20 6 2 3 06/20/23 07:49 06/20/23 03:00 Laboratory Results Short CBC 06/20/23 Range/Units 05:42 WBC 6.56 (4.8-10.8) K/ul Hgb 9.6 L (12.0-16.0) g/dl Hct 31.3 L (37.0-47.0) % Plt Count 131 (130-400) K/uL BMP 06/20/23 05:42 Sodium 138 Potassium 3.9 Chloride 98 Carbon Dioxide 35 H BUN 32 H Creatinine 1.08 Glucose 102 H Calcium 9.5
[2023-06-20] MEDS: cefTRIAXone SODIUM 2,000 MG in DEXTROSE 5% 50 ML IV SCH (20:12)
[2023-06-21] MEDS: FOLIC ACID 1 MG TAB PO SCH (07:39)
[2023-06-21] MEDS: amLODIPine BESYLATE 5 MG TAB PO SCH (07:39)
[2023-06-21] MEDS: CHOLECALCIFEROL 1,000 UNITS 25 MCG TAB PO SCH (07:40)
[2023-06-21] MEDS: ADVANCED PROBIOTIC 1250 MG CAPSULE PO SCH (07:40)
[2023-06-21] MEDS: predniSONE 10 MG TABLET PO SCH (07:40)
[2023-06-21] MEDS: HEPARIN SOD 5,000 UNIT/0.5 ML VIAL SQ SCH ×2 (07:41→21:06)
[2023-06-21] MEDS: SOTALOL HCL 80 MG TAB PO SCH ×2 (07:41→21:07)
[2023-06-21] MEDS: LORATADINE 10 MG TAB PO SCH (07:41)
[2023-06-21] MEDS: PANTOprazole 40 MG TAB PO SCH ×2 (07:41→21:06)
[2023-06-21] MEDS: NYSTATIN CR 15 GM TUBE EXT SCH (07:42)
[2023-06-21] MEDS: SERTRALINE HCL 100 MG TABLET PO SCH (07:42)
[2023-06-21] MEDS: FUROSEMIDE 40 MG/4 ML VIAL IV SCH ×2 (07:42→16:48)
[2023-06-21] MEDS: GABAPENTIN 300 MG CAP PO SCH ×3 (07:42→21:06)
[2023-06-21] MEDS: LORazepam 0.5 MG TAB PO PRN ×2 (07:45→21:05)
[2023-06-21] MEDS: DOCUSATE SODIUM 100 MG CAP PO SCH ×2 (07:45→21:06)
[2023-06-21] MEDS: DOXYCYCLINE HYCLATE 100 MG in DEXTROSE 5% 100 ML IV SCH (07:55)
[2023-06-21] MEDS: ACETAMINOPHEN 325 MG TAB PO PRN ×2 (07:55→21:05)
[2023-06-21 08:31] LABS: BUN Creatinine Ratio 36.6 (10-20); Calcium 9.2 mg/dl (8.6-10.3); Creatinine Clr Calc Pharmacy 64.8 ml/min; Est GFR (African American) 65.8 ml/min; Est GFR (Non-African American) 56.8 ml/min; Potassium 3.8 mmol/L (3.5-5.1)
--- NOTE | 2023-06-21 08:51 | Pulmonary Consultation ---
Date of Consultation June 21, 2023 Assessment & Plan (1) Acute and chronic respiratory failure: Previous procalcitonin was negative on 06/17/2023. Repeat procalcitonin this morning is again negative at less than 0.5. Serum CO2 is similar to values going back to January 2023 Supplemental oxygen use at home 3 to 4 L/min via nasal cannula Respiratory failure complication: hypoxia Qualified Code(s): J96.21 - Acute and chronic respiratory failure with hypoxia (2) Obesity, morbid, BMI 40.0-49.9: (3) Atrial fibrillation with RVR: Cardiology following Home medications include sotalol 80 mg p.o. twice daily as well as amlodipine 2.5 mg p.o. daily for hypertension Patient does not appear to be on anticoagulants as an outpatient secondary to history of bleeding issues. ECHO * LVEF 60-65% * No WMA * Mild LVH * Mild MR/TR * Mild PH * Grade 1 diastolic dysfunction * IVC is WNL (4) BERRY (obstructive sleep apnea): She was intolerant of CPAP in the past. Her home sleep study revealed mild BERRY with hypoxemia. She uses oxygen at night. (5) On home oxygen therapy: 3 to 4 L/min via nasal cannula Plan Attending: Dr. Kelly Impression: 67-year-old female admitted in May and again this month for findings of increased hypoxia with ambulation. Patient had question of pneumonia based on radiographic findings with no increased sputum, hemoptysis, fever, chills, rigors. Patient was placed on IV antibiotics during her previous admission with no improvement of symptoms. Patient was again placed on antibiotics this admission and again had no improvement of symptoms. Patient does have evidence of pulmonary edema on imaging as well as with clinical findings. Patient was seen by cardiology who had increased her diuretics and is also recommending right and left heart catheterization with suggestion of epoprostenol (prostacyclin) for pulmonary arterial hypertension. Patient has no acute complaints. She is scheduled for pulmonary follow-[facility]. Recommendations: 1. Dyspnea with exertion: * Most likely multifactorial. Patient does have possibility of significant pulmonary hypertension and is scheduled for outpatient right/left heart catheterization. * At this time, we will continue to titrate supplemental oxygen with ambulation. Long discussion with patient. She is very capable of managing her hypoxemia and titrating supplemental oxygen as she has been doing this at home. * No acute pulmonary findings that need to be addressed during this hospital stay. Would defer to outpatient pulmonary team for continued management * Patient does appear to have significant pulmonary edema on imaging. We will continue with diuretics as tolerated * Would also recommend use of incentive spirometer hourly while awake. Patient also would most likely benefit from pulmonary rehab * Out of bed to chair as tolerated. Increase ambulation in hallway as tolerated . 2. Pneumonia: * Although patient may have had a viral etiology that was not detectable on viral panel, she does not appear to have a bacterial pneumonia as serial procalcitonin has been negative, patient has no leukocytosis, no increased sputum, no discolored sputum, no hemoptysis. * Will discontinue antibiotics at this time * No history of dysphagia or aspiration. Would educate patient on oral hygiene as well as continued aspiration precautions both inpatient and at home. 3. Chronic respiratory failure: * Patient has been on supplemental oxygen for several years with requirements being 3 L/min via nasal cannula or greater. Patient does have finger pulse oximeter. Advised her to continue to titrate supplemental oxygen with ambulation and with rest to maintain SPO2 greater than 90%. * Although patient does have a smoking history, no significant COPD is noted on PFTs. * Continue albuterol HFA as needed. 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 4. Obstructive sleep apnea: * Patient diagnosed by polysomnography in the past. She reports that she attempted to use CPAP for approxi-1 month and could not tolerate the mask. Positive air pressure therapy definitely would help with her pulmonary edema as well as with the patient's known obstructive sleep apnea. * Discussed various masks, nasal cannula's, face coverings as options with patient and encouraged her to further discuss treatment of her sleep apnea with her pulmonary team as an outpatient. 5. Obesity secondary to excess calories: * This most likely plays a factor in the patient's shortness of breath as sequela to decreased activity and possible restrictive pathology * EGD from 01/20/2023 reveals history of gastric bypass with reversal. No evidence of gastritis or esophagitis was noted. * Continue to work on calorie reduction and increasing activity * Patient may benefit from supervised weight loss as she does have significant musculoskeletal limitations to increasing activity 6. Stage Ic ovarian cancer status post surgery: * Status postchemotherapy with Taxol/carboplatin. Patient had an allergic reaction to Taxol and was changed to Doxil. She also had allergic reaction to this. Patient completed 1 cycle of carboplatin on 12/12/2020. She refused further chemotherapy. * CT imaging of the chest reveals no evidence of pulmonary nodules or masses or evidence of metastatic disease that would contribute to patient's hypoxia 7. Tobacco abuse history: * 3-pack-year smoking history * Patient quit smoking 09/10/2011 Thank you for including us in the care of this patient. The pulmonary team will sign off at this time. Patient highly encouraged to follow-up with [facility] pulmonology on discharge for further management of her chronic pulmonary issues. SPIROGRAM 05/13/2023: Shows pre bronchodilator FEV1 to be 42% of predicted, FVC is 43% of predicted. FEV1/FVC ratio is increased. Post bronchodilator FEV1 isdecreased. There is no significant bronchodilator response SMALL AIRWAYS: The flow of air at 25 - 75% of vital capacity is decreased LUNG VOLUMES: Lung volumes when measured by body plethysmography shows TLC and SVC are reduced, but the FRC is normal. DIFFUSION CAPACITY: Diffusion capacity is decreased. CONCLUSION: PFT shows evidence of combined obstructive and restrictive ventilatory impairment. Diffusion capacity is moderately decreased at 61% of predicted. This interpretation has been electronically signed: Darrell Mix 05/21/2023 07:18:53 PM Supervising Physician Co-Signing Physician Notes Patient seen and examined. EMR reviewed. Discussed with MARCIAL. Agree with assessment plan as noted. The patient appears to be at her baseline from a pulmonary standpoint. She is e stablished with the [facility] pulmonary group and will continue to follow with them. Will defer decisions regarding outpatient pulmonary rehab to them. Her oxygen requirement appears at baseline. She should have follow-up outpatient PFTs and correlate for any clinical progression. No indication for additional immune suppression at this point in time or antifibrotic agents in the acute setting. Pulmonary will sign off at this point in time. Feel free to contact us with questions or concerns History of Present Illness Attending Physician: Jose Dixon MD History of Present Illness Attending: Dr. Kelly 67-year-old female admitted 06/17/2023 with a past medical history of hypersensitivity pneumonitis, BERRY, chronic hypoxemic respiratory failure, obesity, CKD stage III, hypertension, atrial fibrillation, urine cancer status post total abdominal hysterectomy and chemotherapy, GERD and osteoarthritis presenting to the pulmonary clinic for follow-up and preoperative pulmonary clearance. At that time her PFTs demonstrated restriction and a decreased DLCO which was thought to be related to her obesity and hypersensitivity pneumonitis. Patient previously followed with Dr. Lucas and Dr. Cook in the [facility] pulmonary office. She currently follows with [facility] pulmonology and has an appointment with a nurse practitioner at [facility] tomorrow afternoon. Recent admission from 05/19/2023 through 05/26/2023 and treated for multifocal pneumonia and treated with doxycycline and ceftriaxone. No azithromycin was g iven secondary to drug to drug interaction with sotalol. No clear evidence of pneumonia at that time other than radio opacification on chest x-ray. Patient has no significant sputum production. She denies fever, chills, sweats, rigors. No chest pain or tightness. Patient's only symptom is objective finding of decrease in saturations with ambulation. Patient also notes that with rest she has very rapid recovery. Patient states that for her admission in May she was found to be hypoxic with ambulation by wound care team and was referred her to the emergency department for evaluation. Other than decreased pulse oximetry, she had no acute pulmonary complaints at that time. For this admission, patient had a visiting nurse who had similar findings and recommended ER evaluation subsequent to discussion with patient's primary care provider. Patient again found with abnormal chest x-ray with question of pneumonitis so antibiotics were started. Of note, patient does follow with [facility] oncology who has placed her on daily prednisone 10 mg p.o. for anemia to stimulate bone marrow. Patient has noted increased shortness of breath since starting this regimen. During this hospital stay, patient did have documented increased hypoxia with ambulation. Again rapid recovery with rest. Apparently it was suggested by physical therapy that pulmonary rehabilitation be considered. Physical therapy also commented that an Oxymizer be considered. Decreased ambulation over the last 2 to 3 years secondary to musculoskeletal issues particularly with her knees. Patient also follows with wound care clinic. Patient reports that her weight has been stable over the last 12 months. Patient smokes tobacco socially in her 20s. 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 She was also raised on a farm. She denies any exposures to birds. He had a dog about 10 years ago. She was to a smoker for 11 years. She her 14 years ago. She does note that her mother from scleroderma. Had an autoimmune panel checked in 2018 and this was negative for PEDRO, Sjogren's antibodies, scleroderma. Complement levels were normal. She had a hypersensitivity pneumonitis panel checked on 06/07/2018 which revealed positivity to several different molds. Allergies Allergy/AdvReac Type Severity Reaction Status Date / Time levofloxacin Allergy Intermediate LE Verified 06/15/23 09:27 swelling and blistering paclitaxel [From Taxol] Allergy Intermediate facial Verified 06/15/23 09:27 flushing, bradycardia doxorubicin AdvReac Severe Hypoxia Verified 06/15/23 09:27 clindamycin AdvReac Intermediate PT Verified 06/15/23 09:27 CONTRACTED C-DIFF shellfish derived AdvReac Intermediate NAUSEA,DIARRHEA, Verified 06/15/23 09:27 VOMITING adhesive AdvReac Mild SKIN Verified 06/15/23 09:27 BLISTERS SOME TIMES Home Medications Medication Instructions Recorded Confirmed Type lorazepam 0.5 mg tablet 0.5 mg PO Q8H PRN Anxiety 10/18/18 06/17/23 History sertraline 100 mg tablet (Zoloft) 100 mg PO QAM 10/18/18 06/17/23 History cyclobenzaprine 5 mg tablet 5 mg PO BID PRN Muscle Spasm 08/25/19 06/17/23 History omeprazole 20 mg capsule,delayed 20 mg PO BID 04/12/20 06/17/23 History release folic acid 1 mg tablet 1 mg PO QAM 05/08/20 06/17/23 History fosfomycin tromethamine 3 gram 3 g PO WK 10/01/20 06/17/23 History oral packet (Monurol) sotalol 80 mg tablet 80 mg PO BID 10/01/20 06/17/23 History cholecalciferol (vitamin D3) 50 2,000 unit PO QAM #90 tabs 04/09/21 06/17/23 Rx mcg (2,000 unit) tablet loratadine 10 mg tablet (Claritin) 10 mg PO QAM 09/18/22 06/17/23 History Portable Oxygen #1 ea 01/23/23 06/17/23 Rx acetaminophen 325 mg tablet 325 mg PO DIRECTED PRN 02/27/23 06/17/23 History (Tylenol) PAIN/FEVER albuterol sulfate 90 mcg/actuation 2 puff inhalation Q4H PRN Wheezing 02/27/23 06/17/23 History aerosol inhaler docusate sodium 100 mg capsule 100 mg PO BID 02/27/23 06/17/23 History (Stool Softener) fluoride (sodium) 1.1 % dental 1 applic dental BID 02/27/23 06/17/23 History cream (SF 5000 Plus) hydroxyzine HCl 25 mg tablet 25 mg PO HS PRN Itching 02/27/23 06/17/23 History hydrochlorothiazide 25 mg tablet 25 mg PO DAILY 04/16/23 06/17/23 History amlodipine 5 mg tablet (Norvasc) 2.5 mg PO QAM #15 tabs 05/26/23 06/17/23 Rx gabapentin 300 mg capsule 300 mg PO TID 06/17/23 06/17/23 History nystatin 100,000 unit/gram topical 1 applic topical DAILY 7 days #15 06/17/23 06/17/23 Rx cream grams prednisone 10 mg tablet 10 mg PO DAILY 06/17/23 06/17/23 History Patient History Medical History Anemia hx blood transfusions Hgb baseline 8-9 Anxiety and depression Atrial fibrillation No AC due to GI bleed and anemia Chronic hypoxemic respiratory failure Chronic right-sided HF (heart failure) Likely per cardio secondary to obesity hypo ventilatory syndrome/Pickwickian CKD (chronic kidney disease), stage III follows [address] Dr. 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 WELSH). last check 3 weeks ago Restless leg syndrome Secondary pulmonary hypertension Sick sinus syndrome Spinal stenosis HX Surgical History H/O arthroscopy of knee H/O cystoscopy H/O gastric bypass "1980, reversed in same year" History of appendectomy (~09/07/20) History of arthroscopy LEFT KNEE History of colonoscopy History of ERCP (~09/2020) History of esophagogastroduodenoscopy (EGD) History of herniorrhaphy VENTRAL HERNIA REPAIR= 04/27/17= GRADE VIEW 2, CLEMENTE#2, ETT 7.0 AT [facility] History of lithotripsy History of tonsillectomy History of total [place] with [place] ([place]O) [place] [facility] [place] History of vascular access device removed [place] teeth removed Family History Mother Scleroderma Lupus Family history of reaction to anesthesia nausea Father Coronary heart disease Heart disease Brother Fatty liver Aunt Cancer unspecified Grandfather (Paternal) Heart disease Grandfather (Maternal) Lung disease Grandmother (Paternal) Stroke Grandmother (Maternal) Family history of diabetes mellitus Social History Smoking Status: Former smoker Tobacco Type: Cigarettes Cigarettes Per Day: couple cigs on weekends in ; Second Hand Exposure: No; Do You Dip or Chew Tobacco: No; Tobacco Cessation Education Requested by Patient: No Hx Alcohol Use: No Hx Substance Use: No Preferred Language: Stateless Communication Ability: Effective Visual Impairment: No Limitations Fire Control Technician B Required: No Beliefs That Will Affect Care: None marital status: Current Living Situation: Alone Current Living Situation Comment: home health current occupational status: retired How many Children do You have: 0 Other Information That Helps Us Care for You: No Feels Safe at Home: Yes Safety Concerns: Feels Safe At This Time Diet: regular during the past year weight has: remained stable Assistive Devices: Oxygen - Continuous, Raised Toilet Seat and Walker Review of Systems Review of Systems: A total of 10 systems was reviewed and is negative other than as listed in the HPI Physical Exam Physical Exam: GENERAL : No acute distress. No conversational dyspnea. EYES: No icterus, gaze conjugate NOSE: No evidence of epistaxis. Nasal cannula is in place and secure. MOUTH: No lesions or candidiasis NECK: Supple LUNGS: CTA B/L, no wheezes, rales or rhonchi HEART: Regular, rate controlled ABDOMEN: Soft, NT, ND, BS Present EXTREMITIES: No LE edema, pedal pulses intact. Bilateral lower legs are wrapped NEURO: A&OX3 Results & Data Results & Data Vital Signs (Past 12 Hours) Vital Signs Temp Pulse Pulse Resp BP Pulse Ox O2 Del Method 06/21/23 07:44 36.7 C 65 16 144/78 H 95 Nasal Cannula 06/21/23 07:20 Nasal Cannula 06/21/23 07:18 63 06/20/23 22:00 68 06/21/23 03:00 36.6 C 60 20 137/71 94 Nasal Cannula 06/20/23 22:00 36.7 C 75 20 153/73 H 93 Nasal Cannula O2 Flow Rate 06/21/23 07:44 4 06/21/23 07:20 4 06/21/23 07:18 06/20/23 22:00 06/21/23 03:00 4 06/20/23 22:00 4 Critical Care Results & Data Vital Signs (Past 12 Hours) Vital Signs Temp Pulse Pulse Resp BP Pulse Ox O2 Del Method 06/21/23 07:44 36.7 C 65 16 144/78 H 95 Nasal Cannula 06/21/23 07:20 Nasal Cannula 06/21/23 07:18 63 06/20/23 22:00 68 06/21/23 03:00 36.6 C 60 20 137/71 94 Nasal Cannula 06/20/23 22:00 36.7 C 75 20 153/73 H 93 Nasal Cannula O2 Flow Rate 06/21/23 07:44 4 06/21/23 07:20 4 06/21/23 07:18 06/20/23 22:00 06/21/23 03:00 4 06/20/23 22:00 4 Lab & Micro Results (Past 24 Hours) No Data to Display Na 138 mmol/L (136-145) 06/21/23 K 3.8 mmol/L (3.5-5.1) 06/21/23 Cl 96 mmol/L (98-107) L 06/21/23 CO2 36 mmol/L (21-32) H 06/21/23 Anion Gap 6 (3-11) 06/21/23 BUN 37 mg/dl (6-23) H 06/21/23 Creatinine 1.01 mg/dl (0.6-1.2) 06/21/23 Estimated GFR ( Amer) 65.8 ml/min 06/21/23 Estimated GFR (Non-Af Amer) 56.8 ml/min 06/21/23 BUN/Creatinine Ratio 36.6 (10-20) H 06/21/23 Glu 100 mg/dl (70-99(Fasting)) H 06/21/23 Ca 9.2 mg/dl (8.6-10.3) 06/21/23 Calcium Level 9.2 mg/dl (8.6-10.3) 06/21/23 07:33 Diagnostic Findings (Past 24 Hours) Chest X-Ray 06/20/23 08:46 XR chest 1V portable HISTORY: Congestive heart failure. Shortness of breath. COMPARISON: Chest 06/17/2023. FINDINGS: There are low lung volumes. No pneumothorax. There is left-sided dual- chamber pacemaker again noted. The heart remains mildly enlarged. There are surg ical clips at the epigastric region. Interstitial/vascular thickening most pronounced on the left is again noted. This is similar to the prior study. There are left perihilar airspace and patchy right lung airspace opacities. This also remains unchanged. IMPRESSION: Overall, no significant change compared to the prior study. Mild cardiomegaly with interstitial thickening and bilateral airspace opacities persist. This favors pulmonary edema. A superimposed pneumonia could also have a similar appearance in the appropriate clinical setting. ACT 112: Negative or not required by law. Electronically signed by: Karthik Cantu M.D. 06/20/2023 10:26 AM CTA chest 05/19/2023: CT ANGIOGRAM OF THE CHEST CLINICAL HISTORY: Hypoxia. Dyspnea. Lower extremity edema. COMPARISON STUDY: Chest x-ray dated 05/19/2023. Chest CT dated 11/28/2020. TECHNIQUE: Following the IV administration of 120 cc of Optiray 320, CT angiogram of the chest was performed from the upper abdomen to the thoracic inlet utilizing the pulmonary embolus protocol. Images are reviewed in the axial, sagittal, and coronal planes. 3-D MIPS images are created and assessed. IV contrast was administered without complication. A dose lowering technique was utilized adhering to the principles of ALARA. CT DOSE: 1099.12 mGy.cm FINDINGS: Thyroid: Imaged portions of the thyroid gland are normal in size and attenuation. Thoracic aorta: There is atherosclerotic calcification of the thoracic aorta, which is normal in caliber and demonstrates standard 3-vessel arch anatomy. No dissection is seen. Pulmonary vasculature: The main pulmonary arteries are dilated suggesting pulmonary artery hypertension. There are no filling defects identified in main, lobar, or segmental pulmonary branches to suggest pulmonary embolus. Evaluation of the distal segmental and subsegmental branches is degraded by motion artifact. Heart: A cardiac pacemaker is present in the left chest wall. The heart is enlarged and without pericardial effusion. The coronary arteries and mitral annulus are densely calcified. Lungs and pleural spaces: Evaluation of the lung parenchyma is degraded by motion artifact. Parenchymal scarring and architectural distortion is seen throu ghout both lungs. Multifocal patchy airspace consolidation is seen throughout both lungs. No pleural effusion is identified. The trachea and central airways are clear. Mediastinum: There are numerous mildly enlarged mediastinal lymph nodes. An AP window node measures 11 mm short axis. Prevascular nodes measure up to 10 mm short axis. Deirdre: Mildly enlarged hilar nodes measure up to 10 mm in short axis. Axillae: There is no axillary lymphadenopathy. Upper abdomen: The gallbladder surgically absent. Postoperative changes noted in the stomach. The spleen is markedly enlarged measuring at least 18.7 cm in length. The liver is enlarged. Nodularity of the hepatic surface contour indicates morphologic changes of cirrhosis. Skeletal structures: The skeletal structures are osteopenic. No lytic or blastic bony lesions are seen. Degenerative change is seen in the shoulders and spine. There is a mild an age indeterminant superior endplate compression deformity of T5. This is new from 2020. IMPRESSION: 1. There is no evidence of pulmonary embolus in the main, lobar, or segmental pulmonary arteries. 2. Cardiomegaly and cardiac pacemaker. 3. Multifocal airspace consolidation is seen throughout both lungs, and the the appearance favors an infectious/inflammatory finding (05/19/2023) . This may be viral. Pulmonary edema could appear similar. Clinical correlation will be essential and radiographic follow-up to resolution is recommended. 4. There is no pleural effusion. 5. Mildly enlarged mediastinal and hilar nodes are nonspecific and may be reactive. 6. The liver is enlarged with morphological change of cirrhosis. 7. Marked splenomegaly. 8. Mild and age indeterminant compression deformity of T5. Correlate for point tenderness. 9. Additional findings as above. ACT 112: Negative or not required by law. Electronically signed by: Freddie Mae M.D. 05/19/2023 11:58 AM I & O Totals 24 Hours 06/20/23 06/21/23 06/22/23 06:59 06:59 06:59 Intake Total 1460 / 1460 1520 / 1520 Output Total / Balance 1459 / 1459 1520 / 1520 Cumulative 06/17/23 14:09 thru 06/21/23 06:00 Intake Total 5600 Output Total 1 Balance 5599 RT Ventilator Mngmt (Last Documented) Ventilator Ordered Settings Respiratory Rate [Exercise O2 26 06/20/23 10:20 Corrective 3] Respiratory Rate [Exercise O2 26 06/20/23 10 :20 Corrective 2] Respiratory Rate [Exercise O2 26 06/20/23 10:20 Corrective 1] Respiratory Rate [Resting 18 06/20/23 10:20 Corrective 2] Respiratory Rate [Resting 18 06/20/23 10:20 Corrective 1] Respiratory Rate [Resting] 18 06/20/23 10:20 Respiratory Rate 16 06/21/23 07:44 Ventilator - PT Measurements Respiratory Rate [Exercise O2 26 Corrective 3] Respiratory Rate [Exercise O2 26 Corrective 2] Respiratory Rate [Exercise O2 26 Corrective 1] Respiratory Rate [Resting 18 Corrective 2] Respiratory Rate [Resting 18 Corrective 1] Respiratory Rate [Resting] 18 Respiratory Rate 16 PG Care Time/CCT Total # of Minutes Spent Total Time Spent with Patient: Total time spent is greater than 50% in coordination of care (as documented) at patient's floor/unit and/or counseling patient:60 minutes Coding Level of Care Code 70445 IN/OBS CONSULT LVL 4,60M Diagnoses Acute and chronic respiratory failure J96.21 Respiratory failure complication: hypoxia Obesity, morbid, BMI 40.0-49.9 E66.01 Atrial fibrillation with RVR I48.91 BERRY (obstructive sleep apnea) G47.33 On home oxygen therapy Z99.81 Time Spent (min) 60
--- NOTE | 2023-06-21 09:00 | Cardiology Consultation ---
Date of Consultation June 21, 2023 Supervising Physician Co-Signing Physician Notes Attending Staff: Pt seen and examined with [facility] staff. Concur with observations and plans 67 yo woman presenting with dyspnea and hypoxia Consult for: Question of CHF overlying ILD ProBNP - 128 (marginally elevated) ECHO * LVEF 60-65% * No WMA * Mild LVH * Mild MR/TR * Mild PH * Grade 1 diastolic dysfunction * IVC is WNL CXR - our read - prominent interstitial pattern; radiology read (evidence of CHF - superimposed) EKG: LVH; no active ischemic changes Troponin - not checked Review of weights in EMR - no dramatic changes - stable Pt noted to desat on trip to bathroom to 80% Hx: * ILD * Chronic Hypoxic Respiratory Failure * Home O2 - 4 Liters * Chronic Anemia - ? hemolytic * PAF - not on DOAC - bleeding challenges - antiarrhythmic - on Sotalol * CKD Stage 3 * HTN * Fatty Liver * Obesity Plans: * Patient may have superimposed pulmonary edema, but suspect that it is a small part of a more complex clinical picture * BNP is mildly elevated - false negative BNPs may happen with obesity, but fits with her not being markedly volume expanded * IVC is not dilated -corroborates that volume status is not expanded * + LVH, but no major left-sided valvular heart disease * No LE edema noted * Suspect that Lasix should be part of her regular regimen at a low dose to maintain current body weight * Pt appears to have PH with ILD * In order to more comprehensively review her cardiac contributions to dyspnea, would consider elective outpt Right and Left Heart Cath * + ASCVD risks; check LDL as an outpt * SBP 155 - consider increase Amlodipine to 10 mg po per day * If Pulmonary Hypertension is confirmed on RHC, patient may be a candidate for Inhaled Prostacyclin - Tyvaso - which has been approved for PH + ILD * If Pulmonary Hypertension is confirmed, would consider eval for CTEPH - given hx of CA * Consider sleep disorders/ PFTs as an outpt * Pt has an indication for anticoagulation (afib) but not on at present * Pt may benefit from High Resolution Chest CT * Pt may benefit from Pulmonary Rehab * Continue supplemental O2 * If diurese - please keep K+ at goal of 4.5-5 and Mag >2 (to avoid metabolic alkalosis) * Please call with any additional questions or concerns Fady Osorio History of Present Illness Attending Physician: Jose Dixon MD Allergies Allergy/AdvReac Type Severity Reaction Status Date / Time levofloxacin Allergy Intermediate LE Verified 06/15/23 09:27 swelling and blistering paclitaxel [From Taxol] Allergy Intermediate facial Verified 06/15/23 09:27 flushing, bradycardia doxorubicin AdvReac Severe Hypoxia Verified 06/15/23 09:27 clindamycin AdvReac Intermediate PT Verified 06/15/23 09:27 CONTRACTED C-DIFF shellfish derived AdvReac Intermediate NAUSEA,DIARRHEA, Verified 06/15/23 09:27 VOMITING adhesive AdvReac Mild SKIN Verified 06/15/23 09:27 BLISTERS SOME TIMES Home Medications Medication Instructions Recorded Confirmed Type lorazepam 0.5 mg tablet 0.5 mg PO Q8H PRN Anxiety 10/18/18 06/17/23 History sertraline 100 mg tablet (Zoloft) 100 mg PO QAM 10/18/18 06/17/23 History cyclobenzaprine 5 mg tablet 5 mg PO BID PRN Muscle Spasm 08/25/19 06/17/23 History omeprazole 20 mg capsule,delayed 20 mg PO BID 04/12/20 06/17/23 History release folic acid 1 mg tablet 1 mg PO QAM 05/08/20 06/17/23 History fosfomycin tromethamine 3 gram 3 g PO WK 10/01/20 06/17/23 History oral packet (Monurol) sotalol 80 mg tablet 80 mg PO BID 10/01/20 06/17/23 History cholecalciferol (vitamin D3) 50 2,000 unit PO QAM #90 tabs 04/09/21 06/17/23 Rx mcg (2,000 unit) tablet loratadine 10 mg tablet (Claritin) 10 mg PO QAM 09/18/22 06/17/23 History Portable Oxygen #1 ea 01/23/23 06/17/23 Rx acetaminophen 325 mg tablet 325 mg PO DIRECTED PRN 02/27/23 06/17/23 History (Tylenol) PAIN/FEVER albuterol sulfate 90 mcg/actuation 2 puff inhalation Q4H PRN Wheezing 02/27/23 06/17/23 History aerosol inhaler docusate sodium 100 mg capsule 100 mg PO BID 02/27/23 06/17/23 History (Stool Softener) fluoride (sodium) 1.1 % dental 1 applic dental BID 02/27/23 06/17/23 History cream (SF 5000 Plus) hydroxyzine HCl 25 mg tablet 25 mg PO HS PRN Itching 02/27/23 06/17/23 History hydrochlorothiazide 25 mg tablet 25 mg PO DAILY 04/16/23 06/17/23 History amlodipine 5 mg tablet (Norvasc) 2.5 mg PO QAM #15 tabs 05/26/23 06/17/23 Rx gabapentin 300 mg capsule 300 mg PO TID 06/17/23 06/17/23 History nystatin 100,000 unit/gram topical 1 applic topical DAILY 7 days #15 06/17/23 06/17/23 Rx cream grams prednisone 10 mg tablet 10 mg PO DAILY 06/17/23 06/17/23 History Patient History Medical History Anemia hx blood transfusions Hgb baseline 8-9 Anxiety and depression Atrial fibrillation No AC due to GI bleed and anemia Chronic hypoxemic respiratory failure Chronic right-sided HF (heart failure) Likely per cardio secondary to obesity hypo ventilatory syndrome/Pickwickian CKD (chronic kidney disease), stage III follows [address] 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 WELSH). last check 3 weeks ago Restless leg syndrome Secondary pulmonary hypertension Sick sinus syndrome Spinal stenosis HX Surgical History H/O arthroscopy of knee H/O cystoscopy H/O gastric bypass "1980, reversed in same year" History of appendectomy (~09/07/20) History of arthroscopy LEFT KNEE History of colonoscopy History of ERCP (~09/2020) History of esophagogastroduodenoscopy (EGD) History of herniorrhaphy VENTRAL HERNIA REPAIR= 04/27/17= GRADE VIEW 2, CLEMENTE#2, ETT 7.0 AT [facility] History of lithotripsy History of tonsillectomy History of total hysterectomy with bilateral salpingo-oophorectomy (BSO) (~09/07/20) @ [facility] [place] with appy at same time History of vascular access device removed [place] teeth removed Family History Mother Scleroderma Lupus Family history of reaction to anesthesia nausea Father Coronary heart disease Heart disease Brother Fatty liver Aunt Cancer unspecified Grandfather (Paternal) Heart disease Grandfather (Maternal) Lung disease Grandmother (Paternal) Stroke Grandmother (Maternal) Family history of diabetes mellitus Social History Smoking Status: Former smoker Tobacco Type: Cigarettes Cigarettes Per Day: couple cigs on weekends in ; Second Hand Exposure: No; Do You Dip or Chew Tobacco: No; Tobacco Cessation Education Requested by Patient: No Hx Alcohol Use: No Hx Substance Use: No Preferred Language: Australian Communication Ability: Effective Visual Impairment: No Limitations Director Operating Required: No Beliefs That Will Affect Care: None marital status: Current Living Situation: Alone Current Living Situation Comment: home health current occupational status: retired How many Children do You have: 0 Other Information That Helps Us Care for You: No Feels Safe at Home: Yes Safety Concerns: Feels Safe At This Time Diet: regular during the past year weight has: remained stable Assistive Devices: Oxygen - Continuous, Raised Toilet Seat and Walker Physical Exam Physical Exam: Obese No elevation in JVP S1S2 soft 2/6 systolic murmur Crackles peripherally No edema Warm and perfusing Results & Data Vital Signs (Past 12 Hours) Vital Signs Temp Pulse Pulse Resp BP Pulse Ox O2 Del Method 06/21/23 07:44 36.7 C 65 16 144/78 H 95 Nasal Cannula 06/21/23 07:20 Nasal Cannula 06/21/23 07:18 63 06/20/23 22:00 68 06/21/23 03:00 36.6 C 60 20 137/71 94 Nasal Cannula 06/20/23 22:00 36.7 C 75 20 153/73 H 93 Nasal Cannula O2 Flow Rate 06/21/23 07:44 4 06/21/23 07:20 4 06/21/23 07:18 06/20/23 22:00 06/21/23 03:00 4 06/20/23 22:00 4
--- NOTE | 2023-06-21 15:26 | Hospitalist Progress Note ---
Date of Service June 21, 2023 Assessment & Plan (1) Acute and chronic respiratory failure with hypoxia: (2) Interstitial lung disease: (3) Dyspnea on exertion: (4) Hypomagnesemia: (5) Paroxysmal atrial fibrillation: (6) Tachy-lakeisha syndrome: (7) CKD (chronic kidney disease), stage III: (8) Chronic anemia: (9) Choledocholithiasis: (10) Mood disorder: (11) BERRY (obstructive sleep apnea): Plan: Patient is 67 y/o F with PMH chronic respiratory failure, recently on 4 L continuous, interstitial lung disease, paroxysmal atrial fibrillation not anticoagulated secondary to history of GI bleed, sick sinus syndrome s/p pacemaker, NAFLD cirrhosis, CKD III, chronic anemia, mood disorder, BERRY, history of ovarian cancer, and others listed below presented to ER with complaint of worsening hypoxia with exertion. Recent treatment for multifocal pneumonia in 2022 Acute on chronic hypoxic respiratory failure Interstitial lung disease Volume Overload Suspected Pneumonia--Less Likely Possible acute on chronic right-sided heart failure Mild pulmonary hypertension Chronic oxygen dependency on 4 L at baseline --CXR:Cardiomegaly and cardiac pacemaker with evidence of congestive failure. Diffuse bilateral airspace opacities likely represent pulmonary edema. Correlate clinically for evidence of a superimposed infectious/inflammatory pneumonitis. Radiographic follow-up to resolution is recommended. --ECHO: Mild concentric LVH. Left ventricle wall motion is normal. Left residual pressure is normal. EF 60 to 65%. Left atrium is mildly dilated. Mild mitral and tricuspid regurgitation. Mild pulmonary hypertension is present. Grade 1 diastolic dysfunction. --BNP:128 --Negative HS troponin --Negative respiratory panel -- Normal procalcitonin -- Empirically started on Rocephin, doxycycline--Will discontinue --IV Solu-Medrol transition to prednisone--continue home dose 10mg daily Continue supplemental oxygen as needed Monitor I's and O's, daily weight Appreciate Cardiology,Pulmonology Input Needs 2 step prior to discharge Will likely need right and left heart cardiac catheterization as outpatient Increased amlodipine dose to 5mg daily Currently on IV lasix Transition to PO Lasix upon discharge We need pulmonary rehab upon discharge Hypomagnesemia Replete electrolytes as needed Monitor Prediabetes Hyperglycemia Likely secondary to steroids HbA1c 6.1 Chronic anemia On prednisone from Dr. Marion for possible hemolytic anemia. She was on Prednisone 20mg daily however was decreased to 10mg daily No obvious bleeding issues Monitor CBC Paroxysmal atrial fibrillation Not on anticoagulation due to h/o GI bleed Continue sotalol Mood disorder Continue sertraline Continue Ativan prn SSS S/P pacemaker placement NAFLD cirrhosis Follows with [facility] gastroenterology CKD III Renal function at baseline Monitor renal functions, avoid nephrotoxic agents when possible BERRY Intolerant to CPAP, uses O2 HS H/O Choledocholithiasis H/O ERCP with stone removal and biliary stent Is to have repeat ERCP with stent removal planned in July 2023 No cholecystectomy planned H/O Ovarian Cancer S/P surgery/incomplete chemotherapy, recently seen in surveillance by dance artist onc at [facility] [place] and [place] 19-9 elevated at 169 on 05/05/[address] Marion DVT Px Heparin SQ Code Status Full Code Admission and Anticipated Discharge Date Admission Date: June 17, 2023 Subjective Patient is seen and examined at bedside States feeling about the same as yesterday Reports dyspnea on exertion No new complaints Denies any cough, chest pain, dizziness, nausea, vomiting, abdominal pain Discussed with Pulmonology today Review of Systems Review of Systems: All systems reviewed & are unremarkable except as noted in Subjective Physical Exam Physical Exam: Physical Exam: Vitals signs as noted above General Appearance:Obese, no apparent distress Head: normocephalic, Atraumatic Eyes: normal inspection, EOMI Neck: supple, Trachea midline Respiratory/Chest: Decreased breath sounds, CTA, No accessory muscle use Cardiovascular: S1, S2, No murmur Abdomen/GI:Soft, Non tender, Bowel sounds present Extremities/Musculoskeletal:normal inspection, Trace pedal edema Neurologic/Psych:AAOX3, grossly no focal neurological deficits Skin: normal color, warm Results & Data Results & Data Vital Signs (Past 12 Hours) Vital Signs Temp Pulse Pulse Resp BP Pulse Ox O2 Del Method 06/21/23 11:41 36.9 C 20 130/69 94 Nasal Cannula 06/21/23 07:44 36.7 C 65 16 144/78 H 95 Nasal Cannula 06/21/23 07:20 Nasal Cannula 06/21/23 07:18 63 O2 Flow Rate 06/21/23 11:41 4 06/21/23 07:44 4 06/21/23 07:20 4 06/21/23 07:18 Laboratory Results BMP 06/21/23 07:33 Sodium 138 Potassium 3.8 Chloride 96 L Carbon Dioxide 36 H BUN 37 H Creatinine 1.01 Glucose 100 H Calcium 9.2
[2023-06-22 06:14] LABS: Hematocrit (blood only) 29.3 % (37.0-47.0); Hemoglobin 9.1 g/dl (12.0-16.0); Mean Corpuscular Hemoglobin 28.4 pg (25.0-34.0); Mean Corpuscular Hgb Conc 31.1 g/dL (32.0-36.0); Mean Corpuscular Volume 91.6 fL (80.0-100.0); Mean Platelet Volume 10.8 fL (9.4-12.4); Nucleated RBC # (auto) 0.02 K/uL (0-0.12); Nucleated RBC % (auto) 0.3 %; Platelet Count 135 K/uL (130-400); RDW Coefficient of Variation 20.5 % (11.5-14.5); RDW Standard Deviation 69.1 fL (36.4-46.3); White Blood Count 6.49 K/ul (4.8-10.8)
[2023-06-22 06:29] LABS: BUN Creatinine Ratio 33.9 (10-20); Creatinine Clr Calc Pharmacy 56.9 ml/min; Est GFR (African American) 56.2 ml/min; Est GFR (Non-African American) 48.5 ml/min; Magnesium 1.5 mg/dl (1.7-2.4); Potassium 3.5 mmol/L (3.5-5.1)
[2023-06-22] MEDS: LORazepam 0.5 MG TAB PO PRN (09:52)
[2023-06-22] MEDS: CHOLECALCIFEROL 1,000 UNITS 25 MCG TAB PO SCH (09:52)
[2023-06-22] MEDS: ACETAMINOPHEN 325 MG TAB PO PRN (09:52)
[2023-06-22] MEDS: amLODIPine BESYLATE 5 MG TAB PO SCH (09:52)
[2023-06-22] MEDS: predniSONE 10 MG TABLET PO SCH (09:53)
[2023-06-22] MEDS: PANTOprazole 40 MG TAB PO SCH (09:53)
[2023-06-22] MEDS: ADVANCED PROBIOTIC 1250 MG CAPSULE PO SCH (09:53)
[2023-06-22] MEDS: GABAPENTIN 300 MG CAP PO SCH (09:53)
[2023-06-22] MEDS: FOLIC ACID 1 MG TAB PO SCH (09:53)
[2023-06-22] MEDS: LORATADINE 10 MG TAB PO SCH (09:53)
[2023-06-22] MEDS: FUROSEMIDE 40 MG/4 ML VIAL IV SCH (09:53)
[2023-06-22] MEDS: SERTRALINE HCL 100 MG TABLET PO SCH (09:54)
[2023-06-22] MEDS: HEPARIN SOD 5,000 UNIT/0.5 ML VIAL SQ SCH (09:54)
[2023-06-22] MEDS: SOTALOL HCL 80 MG TAB PO SCH (09:54)
[2023-06-22] MEDS ORDERED: MAGNESIUM SULFATE / D5W 1 GM/100 ML BAG IV ONE (10:00)
[2023-06-22] MEDS: NYSTATIN CR 15 GM TUBE EXT SCH (10:03)
[2023-06-22] MEDS: DOCUSATE SODIUM 100 MG CAP PO SCH (10:41)
--- NOTE | 2023-06-22 13:02 | Hospitalist Progress Note ---
Date of Service June 22, 2023 Assessment & Plan (1) Acute and chronic respiratory failure with hypoxia: (2) Interstitial lung disease: (3) Dyspnea on exertion: (4) Hypomagnesemia: (5) Paroxysmal atrial fibrillation: (6) Tachy-lakeisha syndrome: (7) CKD (chronic kidney disease), stage III: (8) Chronic anemia: (9) Choledocholithiasis: (10) Mood disorder: (11) BERRY (obstructive sleep apnea): Plan: Patient is 67 y/o F with PMH chronic respiratory failure, recently on 4 L continuous, interstitial lung disease, paroxysmal atrial fibrillation not anticoagulated secondary to history of GI bleed, sick sinus syndrome s/p pacemaker, NAFLD cirrhosis, CKD III, chronic anemia, mood disorder, BERRY, history of ovarian cancer, and others listed below presented to ER with complaint of worsening hypoxia with exertion. Recent treatment for multifocal pneumonia in 2022 Acute on chronic hypoxic respiratory failure Interstitial lung disease Volume Overload Suspected Pneumonia--Less Likely Possible acute on chronic right-sided heart failure Mild pulmonary hypertension Chronic oxygen dependency on 4 L at baseline --CXR:Cardiomegaly and cardiac pacemaker with evidence of congestive failure. Diffuse bilateral airspace opacities likely represent pulmonary edema. Correlate clinically for evidence of a superimposed infectious/inflammatory pneumonitis. Radiographic follow-up to resolution is recommended. --ECHO: Mild concentric LVH. Left ventricle wall motion is normal. Left residual pressure is normal. EF 60 to 65%. Left atrium is mildly dilated. Mild mitral and tricuspid regurgitation. Mild pulmonary hypertension is present. Grade 1 diastolic dysfunction. --BNP:128 --Negative HS troponin --Negative respiratory panel -- Normal procalcitonin -- Empirically started on Rocephin, doxycycline--Will discontinue --IV Solu-Medrol transition to prednisone--continue home dose 10mg daily Continue supplemental oxygen as needed Monitor I's and O's, daily weight Appreciate Cardiology,Pulmonology Input 2 step: Continue 4 L supplemental oxygen at rest and 6 L with activity. Will likely need right and left heart cardiac catheterization as outpatient Increased amlodipine dose to 5mg daily Currently on IV lasix>> transition to p.o. Lasix and discontinue HCTZ Will need pulmonary rehab upon discharge Advised to follow-up with pulmonology, cardiology upon discharge Hypomagnesemia Replete electrolytes as needed Monitor Prediabetes Hyperglycemia Likely secondary to steroids HbA1c 6.1 Chronic anemia On prednisone from Dr. Marion for possible hemolytic anemia. She was on Prednisone 20mg daily however was decreased to 10mg daily No obvious bleeding issues Monitor CBC Paroxysmal atrial fibrillation Not on anticoagulation due to h/o GI bleed Continue sotalol Mood disorder Continue sertraline Continue Ativan prn SSS S/P pacemaker placement NAFLD cirrhosis Follows with [facility] gastroenterology CKD III Renal function at baseline Monitor renal functions, avoid nephrotoxic agents when possible BERRY Intolerant to CPAP, uses O2 HS H/O Choledocholithiasis H/O ERCP with stone removal and biliary stent Is to have repeat ERCP with stent removal planned in July 2023 No cholecystectomy planned H/O Ovarian Cancer S/P surgery/incomplete chemotherapy, recently seen in surveillance [place] 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 Marion DVT Px Heparin SQ Code Status Full Code Disoposition Home Admission and Anticipated Discharge Date Admission Date: June 17, 2023 Subjective Patient is seen and examined at bedside Subjectively feels dyspnea is better today No new complaints Plan to be discharged home today Denies any cough, chest pain, dizziness, nausea, vomiting, abdominal pain Review of Systems Review of Systems: All systems reviewed & are unremarkable except as noted in Subjective Physical Exam Physical Exam: Physical Exam: Vitals signs as noted above General Appearance:Obese, no apparent distress Head: normocephalic, Atraumatic Eyes: normal inspection, EOMI Neck: supple, Trachea midline Respiratory/Chest: Decreased breath sounds, CTA, No accessory muscle use Cardiovascular: S1, S2, No murmur Abdomen/GI:Soft, Non tender, Bowel sounds present Extremities/Musculoskeletal:normal inspection, Trace pedal edema Neurologic/Psych:AAOX3, grossly no focal neurological deficits Skin: normal color, warm Results & Data Results & Data Vital Signs (Past 12 Hours) Vital Signs Temp Pulse Pulse Resp BP Pulse Ox O2 Del Method 06/22/23 12:15 37.0 C 68 16 146/76 H 91 Nasal Cannula 06/22/23 11:46 63 06/22/23 11:37 Nasal Cannula 06/22/23 08:00 36.5 C 67 16 148/75 H 93 Nasal Cannula O2 Flow Rate 06/22/23 12:15 4 06/22/23 11:46 06/22/23 11:37 4 06/22/23 08:00 4 Laboratory Results Short CBC 06/22/23 Range/Units 05:46 WBC 6.49 (4.8-10.8) K/ul Hgb 9.1 L (12.0-16.0) g/dl Hct 29.3 L (37.0-47.0) % Plt Count 135 (130-400) K/uL BMP 06/22/23 05:46 Sodium 138 Potassium 3.5 Chloride 96 L Carbon Dioxide 38 H BUN 39 H Creatinine 1.15 Glucose 110 H Calcium 9.0
--- NOTE | 2023-06-22 13:10 | Discharge Summary ---
Date of Service June 22, 2023 Admission HPI Per Admitting Provider Patient is 67 y/o F with PMH chronic respiratory failure, recently on 4 L continuous, interstitial lung disease, paroxysmal atrial fibrillation not anticoagulated secondary to history of GI bleed, sick sinus syndrome s/p pacemaker, NAFLD cirrhosis, CKD III, chronic anemia, mood disorder, BERRY, history of ovarian cancer, and others listed below presented to ER with complaint of worsening hypoxia with exertion. History obtained from patient as well as inpatient and outpatient chart review. Inpatient admission on 05/19/2023- 05/26/2023 for acute on chronic respiratory failure, multifocal pneumonia treated with Rocephin, doxycycline. Had required 4 L oxygen during admission and was discharged on 4 L oxygen. Patient states has been using 4L oxygen continuous. She has been having home PT and states while participating in PT she increases to 5L secondary to pulse ox dropping in high 80's and exertional SOB. States at rest no SOB however SOB with ambulating through house. Hasn't noticed increased exertional breath but today home health nurse had patient ambulate and reported pulse ox dropped to 80% on 4L. She also reports that home health nurse was concerned about hearing crackles to patient's lungs and patient referred to ER for further evaluation. Denies cough or fever/chills. Patient on prednisone for possible hemolytic anemia and following with Dr Marion. She was on Prednisone 20mg daily however was decreased to 10mg daily on 06/10/23 secondary to Hgb stable at 10.7. She has labs done weekly to monitor. Denies diaphoresis, N/V/D/C, BOX, dizziness, syncope, vision changes, neck pain, CP, SOB, orthopnea, palpitations, cough, sore throat, choking, otalgia, rhinorrhea, abdominal pain, paresthesias, extremity weakness, extremity edema, rashes, urinary symptoms. Admission Exam Per Admitting Provider General: no acute distress, obese Head: normocephalic, atraumatic Eyes: conjunctiva non-injected, anicteric ENT: normal inspection external ears, nose, mucous membranes moist Neck: supple, trachea midline Lungs: no respiratory distress on current 5L oxygen via NC with sat 93%, faint rales bases, otherwise no wheezing or rhonchi noted CV: RRR, no murmur, trace pretibial edema Abd: normal BS, soft, non-tender Ext: no cyanosis, no calf tenderness Neuro: A&O x 3, no focal deficits noted, normal affect Skin: warm, dry Principal Diagnosis Acute on chronic hypoxic respiratory failure Interstitial lung disease Volume overload Pulmonary hypertension Acute on chronic diastolic dysfunction Discharge Data Allergies Allergy/AdvReac Type Severity Reaction Status Date / Time levofloxacin Allergy Intermediate LE Verified 06/15/23 09:27 swelling and blistering paclitaxel [From Taxol] Allergy Intermediate facial Verified 06/15/23 09:27 flushing, bradycardia doxorubicin AdvReac Severe Hypoxia Verified 06/15/23 09:27 clindamycin AdvReac Intermediate PT Verified 06/15/23 09:27 CONTRACTED C-DIFF shellfish derived AdvReac Intermediate NAUSEA,DIARRHEA, Verified 06/15/23 09:27 VOMITING adhesive AdvReac Mild SKIN Verified 06/15/23 09:27 BLISTERS SOME TIMES Consultations 06/17/23 16:56 ED Decision to Admit Stat 06/19/23 10:26 Consult Cardiology Routine 06/21/23 07:25 Consult Pulmonology Routine Procedures Performed Laboratory Results WBC 6.49 K/ul (4.8-10.8) 06/22/23 05:46 RBC 3.20 M/uL (4.20-5.40) L 06/22/23 05:46 Hgb 9.1 g/dl (12.0-16.0) L 06/22/23 05:46 Hct 29.3 % (37.0-47.0) L 06/22/23 05:46 MCV 91.6 fL (80.0-100.0) 06/22/23 05:46 MCH 28.4 pg (25.0-34.0) 06/22/23 05:46 MCHC 31.1 g/dL (32.0-36.0) L 06/22/23 05:46 RDW Std Deviation 69.1 fL (36.4-46.3) H 06/22/23 05:46 RDW Coeff of Patrica 20.5 % (11.5-14.5) H 06/22/23 05:46 Plt Count 135 K/uL (130-400) 06/22/23 05:46 MPV 10.8 fL (9.4-12.4) 06/22/23 05:46 Immature Gran % (Auto) 2.1 % 06/18/23 05:47 Neut % (Auto) 83.1 % 06/18/23 05:47 Lymph % (Auto) 10.6 % 06/18/23 05:47 [place] % (Auto) 4.0 % 06/18/23 05:47 Eos % (Auto) 0.0 % 06/18/23 05:47 Baso % (Auto) 0.2 % 06/18/23 05:47 Neut # (Auto) 4.33 K/uL (1.40-6.50) 06/18/23 05:47 Lymph # (Auto) 0.55 K/uL (1.2-3.4) L 06/18/23 05:47 [place] # (Auto) 0.21 K/uL (0.11-0.59) 06/18/23 05:47 Eos # (Auto) 0.00 K/uL (0-0.50) 06/18/23 05:47 Baso # (Auto) 0.01 K/uL (0-0.2) 06/18/23 05:47 Immature Gran # (Auto) 0.11 K/uL (0.01-0.20) 06/18/23 05:47 Absolute Nucleated RBC 0.02 K/uL (0-0.12) 06/22/23 05:46 Nucleated RBC % (auto) 0.3 % 06/22/23 05:46 Polychromasia 1+ 06/18/23 05:47 Hypochromasia Present 06/17/23 14:44 Anisocytosis Present 06/18/23 05:47 PT 10.7 Seconds (9.0-12.0) 06/17/23 14:44 INR 1.0 (0.9-1.1) 06/17/23 14:44 APTT 27.6 Seconds (21.0-31.0) 06/17/23 14:44 PTT Ratio 1.0 06/17/23 14:44 Sodium 138 mmol/L (136-145) 06/22/23 05:46 Potassium 3.5 mmol/L (3.5-5.1) 06/22/23 05:46 Chloride 96 mmol/L (98-107) L 06/22/23 05:46 Carbon Dioxide 38 mmol/L (21-32) H 06/22/23 05:46 Anion Gap 4 (3-11) 06/22/23 05:46 BUN 39 mg/dl (6-23) H 06/22/23 05:46 Creatinine 1.15 mg/dl (0.6-1.2) 06/22/23 05:46 Est Cr Clr Drug Dosing 56.9 ml/min 06/22/23 05:46 Est GFR ( Amer) 56.2 ml/min 06/22/23 05:46 Est GFR (Non-Af Amer) 48.5 ml/min 06/22/23 05:46 BUN/Creatinine Ratio 33.9 (10-20) H 06/22/23 05:46 Glucose 110 mg/dl (70-99(Fasting)) H 06/22/23 05:46 POC Glucose 185 mg/dl (70-99) H 06/18/23 16:34 Estimat Average Glucose 128 mg/dl 06/18/23 05:47 Hemoglobin A1c 6.1 % (4.5-5.6) H 06/18/23 05:47 Calcium 9.0 mg/dl (8.6-10.3) 06/22/23 05:46 Magnesium 1.5 mg/dl (1.7-2.4) L 06/22/23 05:46 Total Bilirubin 0.5 mg/dl (0.2-1.0) 06/17/23 14:44 AST 25 U/L (13-39) 06/17/23 14:44 ALT 32 U/L (7-52) 06/17/23 14:44 Alkaline Phosphatase 106 U/L (34-104) H 06/17/23 14:44 Troponin I High Sens 6.2 pg/ml (0-14) 06/17/23 14:44 B-Natriuretic Peptide 73 pg/ml (0-100) 06/21/23 07:33 Total Protein 7.2 gm/dl (6.0-8.3) 06/17/23 14:44 Albumin 3.8 gm/dl (3.4-5.0) 06/17/23 14:44 Globulin 3.4 gm/dl (2.5-4.0) 06/17/23 14:44 Albumin/Globulin Ratio 1.1 (0.9-2) 06/17/23 14:44 Procalcitonin < 0.05 ng/ml (0-0.5) 06/21/23 07:33 Adenovirus (PCR) Not Detected (NotDetected) 06/17/23 16:29 B. pertussis DNA (PCR) Not Detected (NotDetected) 06/17/23 16:29 B.parapertussis DNA PCR Not Detected (NotDetected) 06/17/23 16:29 C. pneumoniae DNA (PCR) Not Detected (NotDetected) 06/17/23 16:29 Coronavirus OC43 (PCR) Not Detected (NotDetected) 06/17/23 16:29 Coronavirus HKU1 (PCR) Not Detected (NotDetected) 06/17/23 16:29 Coronavirus 229E (PCR) Not Detected (NotDetected) 06/17/23 16:29 SARS-CoV-2 (PCR) Not Detected (NotDetected) 06/17/23 16:29 Coronavirus NL63 (PCR) Not Detected (NotDetected) 06/17/23 16:29 Human Metapneumovir PCR Not Detected (NotDetected) 06/17/23 16:29 Influenza Type A (PCR) Not Detected (NotDetected) 06/17/23 16:29 Influenza Type B (PCR) Not Detected (NotDetected) 06/17/23 16:29 M. pneumoniae (PCR) Not Detected (NotDetected) 06/17/23 16:29 Parainfluenza 1 (PCR) Not Detected (NotDetected) 06/17/23 16:29 Parainfluenza 2 (PCR) Not Detected (NotDetected) 06/17/23 16:29 Parainfluenza 3 (PCR) Not Detected (NotDetected) 06/17/23 16:29 Parainfluenza 4 (PCR) Not Detected (NotDetected) 06/17/23 16:29 RSV (PCR) Not Detected (NotDetected) 06/17/23 16:29 Entero/Rhino (PCR) Not Detected (NotDetected) 06/17/23 16:29 Impressions Chest X-Ray 06/20/23 08:46 XR chest 1V portable HISTORY: Congestive heart failure. Shortness of breath. COMPARISON: Chest 06/17/2023. FINDINGS: There are low lung volumes. No pneumothorax. There is left-sided dual- chamber pacemaker again noted. The heart remains mildly enlarged. There are surgical clips at the epigastric region. Interstitial/vascular thickening most pronounced on the left is again noted. This is similar to the prior study. There are left perihilar airspace and patchy right lung airspace opacities. This also remains unchanged. IMPRESSION: Overall, no significant change compared to the prior study. Mild cardiomegaly with interstitial thickening and bilateral airspace opacities persist. This favors pulmonary edema. A superimposed pneumonia could also have a similar appearance in the appropriate clinical setting. ACT 112: Negative or not required by law. Electronically signed by: Karthik Cantu M.D. 06/20/2023 10:26 AM Hospital Course (1) Acute and chronic respiratory failure with hypoxia: (2) Interstitial lung disease: (3) Dyspnea on exertion: (4) Hypomagnesemia: (5) Paroxysmal atrial fibrillation: (6) Tachy-lakeisha syndrome: (7) CKD (chronic kidney disease), stage III: (8) Chronic anemia: (9) Choledocholithiasis: (10) Mood disorder: (11) BERRY (obstructive sleep apnea): Patient is 67 y/o F with PMH chronic respiratory failure, recently on 4 L continuous, interstitial lung disease, paroxysmal atrial fibrillation not anticoagulated secondary to history of GI bleed, sick sinus syndrome s/p pacemaker, NAFLD cirrhosis, CKD III, chronic anemia, mood disorder, BERRY, history of ovarian cancer, and others listed below presented to ER with complaint of worsening hypoxia with exertion. Recent treatment for multifocal pneumonia in 05/2023 Acute on chronic hypoxic respiratory failure Interstitial lung disease Volume Overload Suspected Pneumonia--Less Likely Possible acute on chronic right-sided heart failure Mild pulmonary hypertension Chronic oxygen dependency on 4 L at baseline --CXR:Cardiomegaly and cardiac pacemaker with evidence of congestive failure. Diffuse bilateral airspace opacities likely represent pulmonary edema. Correlate clinically for evidence of a superimposed infectious/inflammatory pneumonitis. Radiographic follow-up to resolution is recommended. --ECHO: Mild concentric LVH. Left ventricle wall motion is normal. Left residual pressure is normal. EF 60 to 65%. Left atrium is mildly dilated. Mild mitral and tricuspid regurgitation. Mild pulmonary hypertension is present. Grade 1 diastolic dysfunction. --BNP:128 --Negative HS troponin --Negative respiratory panel -- Normal procalcitonin -- Empirically started on Rocephin, doxycycline--Will discontinue --IV Solu-Medrol transition to prednisone--continue home dose 10mg daily Continue supplemental oxygen as needed Monitor I's and O's, daily weight Appreciate Cardiology,Pulmonology Input 2 step: Continue 4 L supplemental oxygen at rest and 6 L with activity. Will likely need right and left heart cardiac catheterization as outpatient Increased amlodipine dose to 5mg daily Currently on IV lasix>> transition to p.o. Lasix and discontinue HCTZ Will need pulmonary rehab upon discharge Advised to follow-up with pulmonology, cardiology upon discharge Hypomagnesemia Replete electrolytes as needed Monitor Prediabetes Hyperglycemia Likely secondary to steroids HbA1c 6.1 Chronic anemia On prednisone from Dr. Marion for possible hemolytic anemia. She was on Prednisone 20mg daily however was decreased to 10mg daily No obvious bleeding issues Monitor CBC Paroxysmal atrial fibrillation Not on anticoagulation due to h/o GI bleed Continue sotalol Mood disorder Continue sertraline Continue Ativan prn SSS S/P pacemaker placement NAFLD cirrhosis Follows with [facility] gastroenterology CKD III Renal function at baseline Monitor renal functions, avoid nephrotoxic agents when possible BERRY Intolerant to CPAP, uses O2 HS H/O Choledocholithiasis H/O ERCP with stone removal and biliary stent Is to have repeat ERCP with stent removal planned in July 2023 No cholecystectomy planned H/O Ovarian Cancer S/P surgery/incomplete chemotherapy, recently seen in surveillance by anger control counselor onc at [facility] and [place] [id number] elevated at 169 on 05/05/[address] Marion DVT Px Heparin SQ Code Status Full Code Disoposition Home Total Time Total Time Spent Total Time Spent (In Minutes): 55 minutes Discharge Plan Discharge Items Patient Disposition: Home - Home Health Services Reason For Visit: SOB Discharge Diagnosis: Acute on chronic hypoxic respiratory failure Interstitial lung disease Volume overload Pulmonary hypertension Acute on chronic diastolic dysfunction Activity: Per Instructions section Exercise/Sports: Wait until after follow-up appointment Non-emergency contact: Primary Care Provider, Band Nailer and [employer]er Mill Operator Call non-emergency contact if: you have any medication questions, your symptoms worsen, your pain is concerning for you and you have a fever Follow-up/Referrals: Kat Hawthorne DO [Primary Care Provider] - (Date & Time 06/26/2023 2:00 PM Provider [facility] Lillie Machado CRNP [Outside Practitioners] - (Date & Time 06/22/2023 3:00 PM Provider TAWANNA Gavin Department Pulmonary Medicine, [facility] ) Diet: Regular Addtl Attending Provider Instructions: Follow-up with your primary care physician Dr. Hawthorne on 06/26/2023 2:00 PM Follow-up with your gravel machine operator on 06/22/2023 as scheduled Follow-up with your machine sprayer as advised for possible right and left heart catheterization for further evaluation for pulmonary hypertension -- Discussed with your physicians regarding prednisone use as advised. Seek immediate medical attention if your symptoms reoccur or worsen Please take all medications as instructed on discharge list below. Please call if you have any questions or problems. You can reach a [facility] hospitalist on duty at [facility] 24 hours a day by calling [phone] Call your Primary Care doctor if any of the following symptoms or problems start or get worse: * Shortness of breath or difficulty breathing * Wake up at night short of breath * Chest pain * Cough * Swelling of your hands, feet, or legs * More fatigued or tired with your normal activity * Palpitations - sudden fast heart beats WEIGHT * Weigh yourself every morning after using the bathroom. * Use the same scale. * Wear the same amount of clothing. * Write your weight down on a chart. * Call your Primary Care doctor if you gain more than 2-3 pounds in 1-2 days. MEDICATIONS * Use this discharge instruction sheet for medication instructions. * Take your medications at the time your doctor ordered. * Do not skip a dose of your medicines. * If you miss a dose of medicine, take it as soon as possible, but DO NOT DOUBLE A DOSE. * Read your medicine information when you get home. * Know all of the side effects of your medicine. If in doubt, ask your pharmacist * Call your Primary Care doctor's office if you have any side effects. * Be sure all of your doctors know what medicine and herbs you take (including cold, flu, and herbal medicine). Take the following with you to your follow-up doctor appointments: * Weight Chart * Medication List * List of questions Do not drink excessive alcohol, beer or wine. Pending Studies at Discharge: No Stand-Alone Forms: My [facility], Smoking Cessation Medications and DC Order Prescriptions: New amlodipine [Norvasc] 5 mg Tablet 5 mg PO QAM Qty: 30 1RF Mag 64 64 mg Tablet,Delayed Release (Dr/Ec) 64 mg PO BID Qty: 30 0RF furosemide [Lasix] 40 mg tablet 40 mg PO DAILY Qty: 30 0RF Continued cholecalciferol (vitamin D3) 50 mcg (2,000 unit) tablet 2,000 unit PO QAM Qty: 90 3RF nystatin 100,000 unit/gram cream 1 applic topical DAILY 7 Days Qty: 15 0RF Rx Instructions: Apply to left wrist periwound daily x 7 days. omeprazole 20 mg capsule,delayed release(DR/EC) 20 mg PO BID sertraline [Zoloft] 100 mg Tablet 100 mg PO QAM lorazepam 0.5 mg Tablet 0.5 mg PO Q8H PRN (Reason: Anxiety) folic acid 1 mg Tablet 1 mg PO QAM fosfomycin tromethamine [Monurol] 3 gram packet 3 g PO WK Rx Instructions: TAKE THIS MEDICATION EVERY THURSDAY sotalol 80 mg tablet 80 mg PO BID cyclobenzaprine 5 mg tablet 5 mg PO BID PRN (Reason: Muscle Spasm) loratadine [Claritin] 10 mg Tablet 10 mg PO QAM acetaminophen [Tylenol] 325 mg Tablet 325 mg PO DIRECTED PRN (Reason: PAIN/FEVER) docusate sodium [Stool Softener] 100 mg Capsule 100 mg PO BID hydroxyzine HCl 25 mg tablet 25 mg PO HS PRN (Reason: Itching) albuterol sulfate 90 mcg/actuation HFA aerosol inhaler 2 puff INHALATION Q4H PRN (Reason: Wheezing) fluoride (sodium) [SF 5000 Plus] 1.1 % Cream 1 applic DENTAL BID (DME) Portable Oxygen Misc See Rx Instructions .Route Qty: 1 0RF Rx Instructions: 3lpm via nasal cannula. Test for portability (POC) gabapentin 300 mg capsule 300 mg PO TID prednisone 10 mg tablet 10 mg PO DAILY Discontinued hydrochlorothiazide 25 mg tablet 25 mg PO DAILY amlodipine [Norvasc] 5 mg Tablet 2.5 mg PO QAM Qty: 15 0RF Discharge Orders: Discharge Order (Routine); Ordered 06/22/23 Ordered By: Jose Jones/Other Patient Handouts: Prediabetes, 5 Steps for Eating Healthier Admission Data Admit Date/Time: 06/17/23 17:47 Attending Provider: Jose Dixon Admit Provider: Melissa Cooper Primary Care Provider: Kat Hawthorne Other Providers: Melissa Cooper ; [facility] ; Freddie Fong ; Judah Yan ; Manuel Cook ; Parag Kelly ; Anders Silva ; Cynthia Villegas ; Nancy Choudhary ; Alen Trejo
[2023-06-22] MEDS ORDERED: MAGNESIUM CHLORIDE W/CALCIUM 64MG DELAYED REL TAB PO SCH (21:00)
== END 2023-06-22 14:35 | disposition home health service (06) | DRG 291 ==
LOC: ED 14:09 → SUATTDRO 17:47 → 2W 17:47

== ENCOUNTER 2023-07-06 10:26 | Inpatient (IN) ==
--- NOTE | 2023-07-06 11:03 | XRay Report ---
XR chest 1V portable CLINICAL HISTORY: sob, hypoxic TECHNIQUE: Single frontal radiograph of the chest was obtained. Comparison: Comparison is made to chest radiograph 06/20/2023 FINDINGS: Dual lead pacemaker is seen. The cardiomediastinal silhouette is stable. Multifocal airspace opacitie s are seen. No evidence of pleural effusion or pneumothorax. IMPRESSION: Interval worsening of multifocal airspace disease compatible with pneumonia and/or pulmonary edema. ACT 112: Negative or not required by law. Electronically signed by: Lito Carvalho M.D. 07/06/2023 11:02 AM
[2023-07-06 11:23] LABS: Hemoglobin 8.9 g/dl (12.0-16.0); Mean Corpuscular Hgb Conc 29.7 g/dL (32.0-36.0); Mean Corpuscular Volume 94.3 fL (80.0-100.0); Mean Platelet Volume 11.2 fL (9.4-12.4); Nucleated RBC # (auto) 0.03 K/uL (0.00-0.12); Nucleated RBC % (auto) 0.4 %; Platelet Count 137 K/uL (130-400); RDW Coefficient of Variation 20.5 % (11.5-14.5); RDW Standard Deviation 71.3 fL (36.4-46.3); Red Blood Count 3.18 M/uL (4.20-5.40); White Blood Count 8.32 K/ul (4.8-10.8)
[2023-07-06] MEDS ORDERED: CEFEPIME 20 ML IV STA (11:29)
[2023-07-06] MEDS ORDERED: VANCOMYCIN HCL 2,000 MG in SODIUM CHLORIDE 0.9% 500 ML IV STA (11:30)
[2023-07-06 11:31] LABS: Prothrombin Time 10.9 Seconds (9.0-12.0)
[2023-07-06 11:43] LABS: Albumin Globulin Ratio 1.1 (0.9-2); BUN Creatinine Ratio 37.8 (10-20); Bilirubin,Total 0.6 mg/dl (0.2-1.0); Calcium 9.8 mg/dl (8.6-10.3); Creatinine Clr Calc Pharmacy 80.5 ml/min; Est GFR (African American) 84.6 ml/min; Globulin 3.8 gm/dl (2.5-4.0); Magnesium 1.7 mg/dl (1.7-2.4); Potassium 4.1 mmol/L (3.5-5.1); Total Protein 7.8 gm/dl (6.0-8.3)
[2023-07-06 11:50] LABS: Troponin I High Sensitivity 7.2 pg/ml (0-14)
[2023-07-06 12:09] LABS: Anisocytosis Present; Basophils # (auto) 0.02 K/uL (0.00-0.20); Basophils % (auto) 0.2 %; Eosinophils % (auto) 1.2 %; Immature Granulocytes # (auto) 0.11 K/uL (0.01-0.20); Immature Granulocytes % (auto) 1.3 %; Lymphocytes # (auto) 0.64 K/uL (1.20-3.40); Lymphocytes % (auto) 7.7 %; Monocytes # (auto) 0.41 K/uL (0.11-0.59); Monocytes % (auto) 4.9 %; Neutrophils # (auto) 7.04 K/uL (1.40-6.50); Neutrophils % (auto) 84.7 %; Polychromasia 1+; Tear Drop Cells 1+
--- NOTE | 2023-07-06 12:51 | Emergency Department Note ---
Impression & Plan Acute respiratory failure, Hypoxia, Pneumonia, Pulmonary edema ED Provider Note ED Provider Note NAME: MICHELLE ARELLANO AGE:67 SEX: Female : 1955 ARRIVES VIA: EMS INFORMANT: Patient ED PROVIDER(s): Martha Hernandez DO CHIEF COMPLAINT: hypoxia HPI: This is a 67-year-old female sent to the emergency department from wound care due to the finding of hypoxia. Patient with recent history of pneumonia and pulmonary edema. She does wear oxygen at home at 5 L/min at rest. Patient does have history of interstitial lung disease additionally. No prior history of tobacco abuse. Patient states she did not notice any recent changes over the weekend in her breathing. No change in her cough or sputum production. She denies fevers or chills. Patient states she did complete the entire course of doxycycline she had been discharged on for her pneumonia. She denies any chest pain or palpitations. She denies any recent leg swelling. Patient states she is taking her Lasix daily. Patient states she was transferring from one chair to the bed and dropped her oxygen into the 40s and staff became concerned. On arrival here patient noted to be hypoxic and was placed on 15 L via nonrebreather and still hypoxic so she was placed in room B1 and I was called to come to the room urgently due to the hypoxia and increased work of breathing. PAST MEDICAL HISTORY:See Below PAST SURGICAL HISTORY:See Below FAMILY HISTORY:See Below SOCIAL HISTORY:See Below HOME MEDICATIONS:See Below ALLERGIES:See Below VITALS:See Below PHYSICAL EXAMINATION: GENERAL: alert, well appearing, well nourished, no distress, non-toxic EYE EXAM: normal conjunctiva, PERRL and EOM's grossly intact OROPHARYNX: no exudate, no erythema, lips, buccal mucosa, and tongue normal and mucous membranes are moist NECK: supple, no nuchal rigidity, no adenopathy, non-tender LUNGS: Clear to auscultation. Normal chest wall mechanics, no w/r/r, slightly increased work of breathing, NRB in place HEART: no murmurs, S1 normal and S2 normal ABDOMEN: abdomen soft, non-tender, normo-active bowel sounds, no masses, no rebound or guarding. BACK: Back is symmetrical on inspection and there is no deformity, no midline tenderness, no CVA tenderness. SKIN: no rashes, petechiae, orbruising UPPER EXTREMITIES: upper extremities are grossly normal. FROM, nml pulses b/l. LOWER EXTREMITIES: No pitting edema. FROM, nml pulses b/l. NEURO EXAM: Normal sensorium, cranial nerves II-XII grossly intact, normal speech, no facial droop,nogross weakness of arms, no gross weakness of legs. Gross sensation intact. No ataxia. Vital Signs: reviewed and remarkable Differential Diagnosis: CHF, pneumonia, pleural effusion, ACS, pericardial effusion, worsening interstitial lung disease, COPD exacerbation, bronchospasm, aspiration, foreign body, as well as others were MEDICAL DECISION MAKING: This is a 67-year-old female with a complicated recent pulmonary history who presents emergency room profoundly hypoxic. She was placed in resuscitation room urgently and I was called to see her emergently at bedside. Patient's oxygen level did improve after several minutes on 15 L via nonrebreather and BiPAP was deferred as this had been initially discussed due to her hypoxia and work of breathing. Labs are drawn and sent, IV established, EKG and chest x-ray performed at bedside and interpreted by me and patient monitored on telemetry. Patient's work of breathing decreased when she was laying still and not speaking. Patient's chest x-ray appears worse than the prior chest x-ray at time of discharge. Blood cultures added as was procalcitonin and patient started on IV antibiotics after discussion with the ED pharmacist. Patient's vital signs remained stable throughout. She was started on a dose of Lasix additionally. Case discussed with Samantha of the [facility] team for additional inpatient evaluation and monitoring. Patient noted to be anemic however this appears stable compared to prior. Consultation(s): 1305: Discussed with Samantha Coronado, [facility] team. ER Treatment Provided: See below Diagnostics Interpreted By Me: -ECG: NSR at 72, nml axis, nml intervals, no acute ST/T wave changes -Cardiac Monitoring: An order was placed for continuous cardiac monitoring. The monitor shows a rate of 70 with normal sinus rhythm. -Laboratory studies: As stated above and show below. -Imaging studies: Chest x-ray: Appearance of increased interstitial markings bilaterally suggestive of pulmonary edema, possible bibasilar infiltrate per my interpretation, +CM Triage Nursing Note Reviewed Prior/Outside Records Reviewed -prior discharge summary reviewed Past Med/Surg History Medical History Anemia hx blood transfusions Hgb baseline 8-9 Anxiety Anxiety and depression Choledocholithiasis with obstruction S/p ERCP with stent placement on 01/20/23 Chronic hypoxemic respiratory failure Chronic right-sided HF (heart failure) Likely per cardio secondary to obesity hypo ventilatory syndrome/Pickwickian CKD (chronic kidney disease), stage III [address] 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 WELSH). 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: underwent procedure without any complications; was monitored for 6 doses of sotalol before being discharged home Ventral hernia Surgical History H/O arthroscopy of knee H/O cystoscopy H/O gastric bypass "1980, reversed in same year" History of appendectomy (~09/07/20) History of arthroscopy LEFT KNEE History of colonoscopy History of ERCP (~09/2020) History of esophagogastroduodenoscopy (EGD) History of herniorrhaphy VENTRAL HERNIA REPAIR= 04/27/17= GRADE VIEW 2, CLEMENTE#2, ETT 7.0 AT [facility] History of lithotripsy History of tonsillectomy History of total hysterectomy with bilateral salpingo-oophorectomy (BSO) (~09/07/20) @ [facility] [place] with appy at same time History of vascular access device removed S/P adenoidectomy S/P left knee arthroscopy [place] teeth removed Family History Mother Scleroderma Lupus Family history of reaction to anesthesia nausea Father Coronary heart disease Heart disease Brother Fatty liver Aunt Cancer unspecified Grandfather (Paternal) Heart disease Grandfather (Maternal) Lung disease Grandmother (Paternal) Stroke Grandmother (Maternal) Family history of diabetes mellitus Social History Smoking Status: Unknown if ever smoked Tobacco Type: Cigarettes Cigarettes Per Day: couple cigs on weekends in ; Second Hand Exposure: No; Do You Dip or Chew Tobacco: No; Hx Alcohol Use: No Hx Substance Use: No Preferred Language: Finnish Communication Ability: Effective Visual Impairment: No Limitations Ic Design Manager Required: No Beliefs That Will Affect Care: None marital status: Current Living Situation: Alone Current Living Situation Comment: home health current occupational status: retired How many Children do You have: 0 Feels Safe at Home: Yes Diet: regular during the past year weight has: remained stable Assistive Devices: Oxygen - Continuous, Raised Toilet Seat and Walker Allergies Allergies Allergy/AdvReac Type Severity Reaction Status Date / Time levofloxacin Allergy Intermediate LE Verified 07/06/23 12:06 swelling and blistering paclitaxel [From Taxol] Allergy Intermediate facial Verified 07/06/23 12:06 flushing, bradycardia doxorubicin AdvReac Severe Hypoxia Verified 07/06/23 12:06 clindamycin AdvReac Intermediate PT Verified 07/06/23 12:06 CONTRACTED C-DIFF shellfish derived AdvReac Intermediate NAUSEA,DIARRHEA, Verified 07/06/23 12:06 VOMITING adhesive AdvReac Mild SKIN Verified 07/06/23 12:06 BLISTERS SOME TIMES Home Meds Home Medications Medication Instructions Recorded Confirmed lorazepam 0.5 mg tablet 0.5 mg PO Q8H PRN Anxiety 10/18/18 07/06/23 sertraline 100 mg tablet (Zoloft) 100 mg PO QAM 10/18/18 07/06/23 cyclobenzaprine 5 mg tablet 5 mg PO BID PRN Muscle Spasm 08/25/19 07/06/23 omeprazole 20 mg capsule,delayed 20 mg PO BID 04/12/20 07/06/23 release folic acid 1 mg tablet 1 mg PO QAM 05/08/20 07/06/23 sotalol 80 mg tablet 80 mg PO BID 10/01/20 07/06/23 loratadine 10 mg tablet (Claritin) 10 mg PO QAM 09/18/22 07/06/23 acetaminophen 325 mg tablet 325 mg PO DIRECTED PRN 02/27/23 07/06/23 (Tylenol) PAIN/FEVER albuterol sulfate 90 mcg/actuation 2 puff inhalation Q4H PRN Wheezing 02/27/23 07/06/23 aerosol inhaler docusate sodium 100 mg capsule 100 mg PO BID 02/27/23 07/06/23 (Stool Softener) fluoride (sodium) 1.1 % dental 1 applic dental BID 02/27/23 07/06/23 cream (SF 5000 Plus) hydroxyzine HCl 25 mg tablet 25 mg PO HS PRN Itching 02/27/23 07/06/23 gabapentin 300 mg capsule 300 mg PO TID 06/17/23 07/06/23 prednisone 10 mg tablet 10 mg PO QAM 06/17/23 07/06/23 furosemide 40 mg tablet (Lasix) 40 mg PO QAM 07/06/23 07/06/23 Previous Rx's Medication Instructions Recorded cholecalciferol (vitamin D3) 50 2,000 unit PO QAM #90 tabs 04/09/21 mcg (2,000 unit) tablet Portable Oxygen #1 ea 01/23/23 amlodipine 5 mg tablet (Norvasc) 5 mg PO QAM #30 tabs 06/22/23 magnesium chloride 64 mg 64 mg PO BID #30 tabs 06/22/23 (magnesium chloride) tablet,delayed release (Mag 64) Results & Data (ED) Vital Signs Vital Signs - 24 hr 07/06/23 10:26 07/06/23 10:30 07/06/23 10:52 Temperature 36.9 C Temperature Source Temporal Artery Scan Pulse Rate 73 Pulse Rate [Apical] Pulse Rate from SpO2 Sensor Pulse Rhythm [Apical] Respiratory Rate 28 H Respiratory Effort / Characteristics Respiratory Depth Respiratory Pattern Blood Pressure Blood Pressure [Left Arm] Blood Pressure Mean Blood Pressure Mean [Left Arm] Pulse Oximetry 49 L 84 L 49 L Oxygen Delivery Method Oxymask Non-rebreather Nasal Cannula Oxygen Flow Rate 5 15 5 Sepsis Recent Fever Within 48 Hours No Sepsis New/Unexplained Change in Mental Status No Sepsis Action Taken by Nursing No Action Required Oxygen Flow Rate - Titration 15 Pulse Oximetry Post Tiitration 100 07/06/23 10:59 07/06/23 10:37 07/06/23 10:40 Temperature Temperature Source Pulse Rate 69 73 72 Pulse Rate [Apical] Pulse Rate from SpO2 Sensor 73 72 Pulse Rhythm [Apical] Respiratory Rate 17 16 Respiratory Effort / Characteristics Respiratory Depth Respiratory Pattern Blood Pressure Blood Pressure [Left Arm] Blood Pressure Mean Blood Pressure Mean [Left Arm] Pulse Oximetry 100 100 Oxygen Delivery Method Oxygen Flow Rate Sepsis Recent Fever Within 48 Hours Sepsis New/Unexplained Change in Mental Status Sepsis Action Taken by Nursing Oxygen Flow Rate - Titration Pulse Oximetry Post Tiitration 07/06/23 10:43 07/06/23 10:43 07/06/23 10:50 Temperature Temperature Source Pulse Rate 80 69 Pulse Rate [Apical] Pulse Rate from SpO2 Sensor 80 68 Pulse Rhythm [Apical] Respiratory Rate 20 24 Respiratory Effort / Characteristics Respiratory Depth Respiratory Pattern Blood Pressure 199/95 H Blood Pressure [Left Arm] Blood Pressure Mean 129 Blood Pressure Mean [Left Arm] Pulse Oximetry 100 99 Oxygen Delivery Method Nasal Cannula Oxygen Flow Rate 6 Sepsis Recent Fever Within 48 Hours Sepsis New/Unexplained Change in Mental Status Sepsis Action Taken by Nursing Oxygen Flow Rate - Titration Pulse Oximetry Post Tiitration 07/06/23 11:00 07/06/23 11:13 07/06/23 12:13 Temperature Temperature Source Pulse Rate 69 Pulse Rate [Apical] 68 67 Pulse Rate from SpO2 Sensor 69 Pulse Rhythm [Apical] Regular Respiratory Rate 22 20 20 Respiratory Effort / Characteristics Non-Labored Non-Labored Respiratory Depth Normal Respiratory Pattern Regular Blood Pressure Blood Pressure [Left Arm] 134/70 113/84 Blood Pressure Mean Blood Pressure Mean [Left Arm] 91 93 Pulse Oximetry 94 96 93 Oxygen Delivery Method Nasal Cannula Nasal Cannula Nasal Cannula Oxygen Flow Rate 6 6 6 Sepsis Recent Fever Within 48 Hours Sepsis New/Unexplained Change in Mental Status Sepsis Action Taken by Nursing Oxygen Flow Rate - Titration Pulse Oximetry Post Tiitration Laboratory Data 07/06/23 10:49 07/06/23 10:49 Lab Results 07/06/23 07/06/23 07/06/23 Range/Units 10:49 10:49 10:49 WBC 8.32 (4.8-10.8) K/ul RBC 3.18 L (4.20-5.40) M/uL Hgb 8.9 L (12.0-16.0) g/dl Hct 30.0 L (37.0-47.0) % MCV 94.3 (80.0-100.0) fL MCH 28.0 (25.0-34.0) pg MCHC 29.7 L (32.0-36.0) g/dL RDW Std Deviation 71.3 H (36.4-46.3) fL RDW Coeff of Patrica 20.5 H (11.5-14.5) % Plt Count 137 (130-400) K/uL MPV 11.2 (9.4-12.4) fL Immature Gran % (Auto) 1.3 % Neut % (Auto) 84.7 % Lymph % (Auto) 7.7 % Parker % (Auto) 4.9 % Eos % (Auto) 1.2 % Baso % (Auto) 0.2 % Neut # (Auto) 7.04 H (1.40-6.50) K/uL Lymph # (Auto) 0.64 L (1.20-3.40) K/uL Parker # (Auto) 0.41 (0.11-0.59) K/uL Eos # (Auto) 0.10 (0.00-0.50) K/uL Baso # (Auto) 0.02 (0.00-0.20) K/uL Immature Gran # (Auto) 0.11 (0.01-0.20) K/uL Absolute Nucleated RBC 0.03 (0.00-0.12) K/uL Nucleated RBC % (auto) 0.4 % Polychromasia 1+ Anisocytosis Present Tear Drop Cells 1+ PT 10.9 (9.0-12.0) Seconds INR 1.0 (0.9-1.1) Sodium 138 (136-145) mmol/L Potassium 4.1 (3.5-5.1) mmol/L Chloride 95 L (98-107) mmol/L Carbon Dioxide 37 H (21-32) mmol/L Anion Gap 6 (3-11) BUN 31 H (6-23) mg/dl Creatinine 0.82 (0.6-1.2) mg/dl Est Cr Clr Drug Dosing 80.5 ml/min Est GFR ( Amer) 84.6 ml/min Est GFR (Non-Af Amer) 73.0 ml/min BUN/Creatinine Ratio 37.8 H (10-20) Glucose 145 H (70-99(Fasting)) mg/dl Calcium 9.8 (8.6-10.3) mg/dl Magnesium 1.7 (1.7-2.4) mg/dl Total Bilirubin 0.6 (0.2-1.0) mg/dl AST 19 (13-39) U/L ALT 14 (7-52) U/L Alkaline Phosphatase 85 (34-104) U/L Troponin I High Sens 7.2 (0-14) pg/ml B-Natriuretic Peptide (0-100) pg/ml Total Protein 7.8 (6.0-8.3) gm/dl Albumin 4.0 (3.4-5.0) gm/dl Globulin 3.8 (2.5-4.0) gm/dl Albumin/Globulin Ratio 1.1 (0.9-2) Procalcitonin (0-0.5) ng/ml TSH (0.300-4.500) uIu/ml Adenovirus (PCR) (NotDetected) B. pertussis DNA (PCR) (NotDetected) B.parapertussis DNA PCR (NotDetected) C. pneumoniae DNA (PCR) (NotDetected) Coronavirus OC43 (PCR) (NotDetected) Coronavirus HKU1 (PCR) (NotDetected) Coronavirus 229E (PCR) (NotDetected) SARS-CoV-2 (PCR) (NotDetected) Coronavirus NL63 (PCR) (NotDetected) Human Metapneumovir PCR (NotDetected) Influenza Type A (PCR) (NotDetected) Influenza Type B (PCR) (NotDetected) M. pneumoniae (PCR) (NotDetected) Parainfluenza 1 (PCR) (NotDetected) Parainfluenza 2 (PCR) (NotDetected) Parainfluenza 3 (PCR) (NotDetected) Parainfluenza 4 (PCR) (NotDetected) RSV (PCR) (NotDetected) Entero/Rhino (PCR) (NotDetected) 07/06/23 07/06/23 07/06/23 Range/Units 10:49 10:49 11:28 WBC (4.8-10.8) K/ul RBC (4.20-5.40) M/uL Hgb (12.0-16.0) g/dl Hct (37.0-47.0) % MCV (80.0-100.0) fL MCH (25.0-34.0) pg MCHC (32.0-36.0) g/dL RDW Std Deviation (36.4-46.3) fL RDW Coeff of Patrica (11.5-14.5) % Plt Count (130-400) K/uL MPV (9.4-12.4) fL Immature Gran % (Auto) % Neut % (Auto) % Lymph % (Auto) % Parker % (Auto) % Eos % (Auto) % Baso % (Auto) % Neut # (Auto) (1.40-6.50) K/uL Lymph # (Auto) (1.20-3.40) K/uL Parker # (Auto) (0.11-0.59) K/uL Eos # (Auto) (0.00-0.50) K/uL Baso # (Auto) (0.00-0.20) K/uL Immature Gran # (Auto) (0.01-0.20) K/uL Absolute Nucleated RBC (0.00-0.12) K/uL Nucleated RBC % (auto) % Polychromasia Anisocytosis Tear Drop Cells PT (9.0-12.0) Seconds INR (0.9-1.1) Sodium (136-145) mmol/L Potassium (3.5-5.1) mmol/L Chloride (98-107) mmol/L Carbon Dioxide (21-32) mmol/L Anion Gap (3-11) BUN (6-23) mg/dl Creatinine (0.6-1.2) mg/dl Est Cr Clr Drug Dosing ml/min Est GFR ( Amer) ml/min Est GFR (Non-Af Amer) ml/min BUN/Creatinine Ratio (10-20) Glucose (70-99(Fasting)) mg/dl Calcium (8.6-10.3) mg/dl Magnesium (1.7-2.4) mg/dl Total Bilirubin (0.2-1.0) mg/dl AST (13-39) U/L ALT (7-52) U/L Alkaline Phosphatase (34-104) U/L Troponin I High Sens (0-14) pg/ml B-Natriuretic Peptide 257 H (0-100) pg/ml Total Protein (6.0-8.3) gm/dl Albumin (3.4-5.0) gm/dl Globulin (2.5-4.0) gm/dl Albumin/Globulin Ratio (0.9-2) Procalcitonin (0-0.5) ng/ml TSH 1.688 (0.300-4.500) uIu/ml Adenovirus (PCR) Not Detected (NotDetected) B. pertussis DNA (PCR) Not Detected (NotDetected) B.parapertussis DNA PCR Not Detected (NotDetected) C. pneumoniae DNA (PCR) Not Detected (NotDetected) Coronavirus OC43 (PCR) Not Detected (NotDetected) Coronavirus HKU1 (PCR) Not Detected (NotDetected) Coronavirus 229E (PCR) Not Detected (NotDetected) SARS-CoV-2 (PCR) Not Detected (NotDetected) Coronavirus NL63 (PCR) Not Detected (NotDetected) Human Metapneumovir PCR Not Detected (NotDetected) Influenza Type A (PCR) Not Detected (NotDetected) Influenza Type B (PCR) Not Detected (NotDetected) M. pneumoniae (PCR) Not Detected (NotDetected) Parainfluenza 1 (PCR) Not Detected (NotDetected) Parainfluenza 2 (PCR) Not Detected (NotDetected) Parainfluenza 3 (PCR) Not Detected (NotDetected) Parainfluenza 4 (PCR) Not Detected (NotDetected) RSV (PCR) Not Detected (NotDetected) Entero/Rhino (PCR) Not Detected (NotDetected) 07/06/23 Range/Units 12:45 WBC (4.8-10.8) K/ul RBC (4.20-5.40) M/uL Hgb (12.0-16.0) g/dl Hct (37.0-47.0) % MCV (80.0-100.0) fL MCH (25.0-34.0) pg MCHC (32.0-36.0) g/dL RDW Std Deviation (36.4-46.3) fL RDW Coeff of Patrica (11.5-14.5) % Plt Count (130-400) K/uL MPV (9.4-12.4) fL Immature Gran % (Auto) % Neut % (Auto) % Lymph % (Auto) % Parker % (Auto) % Eos % (Auto) % Baso % (Auto) % Neut # (Auto) (1.40-6.50) K/uL Lymph # (Auto) (1.20-3.40) K/uL Parker # (Auto) (0.11-0.59) K/uL Eos # (Auto) (0.00-0.50) K/uL Baso # (Auto) (0.00-0.20) K/uL Immature Gran # (Auto) (0.01-0.20) K/uL Absolute Nucleated RBC (0.00-0.12) K/uL Nucleated RBC % (auto) % Polychromasia Anisocytosis Tear Drop Cells PT (9.0-12.0) Seconds INR (0.9-1.1) Sodium (136-145) mmol/L Potassium (3.5-5.1) mmol/L Chloride (98-107) mmol/L Carbon Dioxide (21-32) mmol/L Anion Gap (3-11) BUN (6-23) mg/dl Creatinine (0.6-1.2) mg/dl Est Cr Clr Drug Dosing ml/min Est GFR ( Amer) ml/min Est GFR (Non-Af Amer) ml/min BUN/Creatinine Ratio (10-20) Glucose (70-99(Fasting)) mg/dl Calcium (8.6-10.3) mg/dl Magnesium (1.7-2.4) mg/dl Total Bilirubin (0.2-1.0) mg/dl AST (13-39) U/L ALT (7-52) U/L Alkaline Phosphatase (34-104) U/L Troponin I High Sens (0-14) pg/ml B-Natriuretic Peptide (0-100) pg/ml Total Protein (6.0-8.3) gm/dl Albumin (3.4-5.0) gm/dl Globulin (2.5-4.0) gm/dl Albumin/Globulin Ratio (0.9-2) Procalcitonin 0.05 (0-0.5) ng/ml TSH (0.300-4.500) uIu/ml Adenovirus (PCR) (NotDetected) B. pertussis DNA (PCR) (NotDetected) B.parapertussis DNA PCR (NotDetected) C. pneumoniae DNA (PCR) (NotDetected) Coronavirus OC43 (PCR) (NotDetected) Coronavirus HKU1 (PCR) (NotDetected) Coronavirus 229E (PCR) (NotDetected) SARS-CoV-2 (PCR) (NotDetected) Coronavirus NL63 (PCR) (NotDetected) Human Metapneumovir PCR (NotDetected) Influenza Type A (PCR) (NotDetected) Influenza Type B (PCR) (NotDetected) M. pneumoniae (PCR) (NotDetected) Parainfluenza 1 (PCR) (NotDetected) Parainfluenza 2 (PCR) (NotDetected) Parainfluenza 3 (PCR) (NotDetected) Parainfluenza 4 (PCR) (NotDetected) RSV (PCR) (NotDetected) Entero/Rhino (PCR) (NotDetected) Administered Medications Discontinued Medications Furosemide (Furosemide 40 Mg/4 Ml Vial) 40 mg IV ONE ONE Stop: 07/06/23 13:07 Last Admin: 07/06/23 13:20 Dose: 40 mg Documented By: NICO Cefepime HCl (Maxipime) 20 mls @ 5 mls/min IV NOW STA Stop: 07/06/23 11:32 Last Admin: 07/06/23 12:09 Dose: 5 mls/min Documented By: NICO Vancomycin HCl 2,000 mg/ (Sodium Chloride) 540 mls @ 200 mls/hr IV NOW STA Stop: 07/06/23 14:11 Last Infusion: 07/06/23 15:12 Dose: 0 mls/hr Documented By: Admin: 07/06/23 12:10 Dose: 200 mls/hr Documented By: NICO Imaging Data Radiologist's Impression: Chest X-Ray 07/06/23 10:40 XR chest 1V portable CLINICAL HISTORY: sob, hypoxic TECHNIQUE: Single frontal radiograph of the chest was obtained. Comparison: Comparison is made to chest radiograph 06/20/2023 FINDINGS: Dual lead pacemaker is seen. The cardiomediastinal silhouette is stable. Multifocal airspace opacities are seen. No evidence of pleural effusion or pneumothorax. IMPRESSION: Interval worsening of multifocal airspace disease compatible with pneumonia a nd/or pulmonary edema. ACT 112: Negative or not required by law. Electronically signed by: Lito Carvalho M.D. 07/06/2023 11:02 AM Discharge Plan Visit Data Chief Complaint: Shortness of Breath/Dyspnea Stated Complaint: SOB, [facility] SENT THEM ED Provider: Martha Hernandez Discharge Problem: Acute respiratory failure, Hypoxia, Pneumonia, Pulmonary edema Patient Disposition: Admitted As Inpatient Discharge Instructions Interventions: ED Discharge Assessment Last Done: 07/06/23 14:18
[2023-07-06] MEDS ORDERED: FUROSEMIDE 40 MG/4 ML VIAL IV ONE (13:06)
[2023-07-06 13:17] LABS: Adenovirus PCR Not Detected (NotDetected); Bordetella parapertussis PCR Not Detected (NotDetected); Bordetella pertussis PCR Not Detected (NotDetected); Chlamydia pneumoniae PCR Not Detected (NotDetected); Coronavirus 229E PCR Not Detected (NotDetected); Coronavirus CoV-2 (COVID19)PCR Not Detected (NotDetected); Coronavirus HKU1 PCR Not Detected (NotDetected); Coronavirus NL63 PCR Not Detected (NotDetected); Coronavirus OC43PCR Not Detected (NotDetected); Human Metapneumovirus PCR Not Detected (NotDetected); Influenza A PCR Not Detected (NotDetected); Influenza B PCR Not Detected (NotDetected); Mycoplasma pneumoniae PCR Not Detected (NotDetected); Parainfluenza Virus 1 PCR Not Detected (NotDetected); Parainfluenza Virus 2 PCR Not Detected (NotDetected); Parainfluenza Virus 3 PCR Not Detected (NotDetected); Parainfluenza Virus 4 PCR Not Detected (NotDetected); Respiratory Syncytial VirusPCR Not Detected (NotDetected); Rhinovirus/Enterovirus PCR Not Detected (NotDetected)
[2023-07-06] MEDS ORDERED: VANCOMYCIN CONSULT ACTIVE PRN (14:17)
--- NOTE | 2023-07-06 14:48 | Pharmacy Report ---
Pharmacy PK ABX Note - Date of Service July 06, 2023 - Assessment and Plan Assessment 67 year old F receiving CEFEPIME/VANCOMYCIN for treatment of PNEUMONIA. Pertinent microbiologic data includes: blood cultures pending, procalcitonin pending, MRSA nasal swab ordered. Hx of ESBL E. coli (urine 2019). Afebrile, normal WBC. CXray read "interval worsening of multifocal airspace disease compatible with pneumonia and/or pulmonary edema." Plan Vancomycin * Loading dose: 2000 mg IV x 1 * Maintenance dose: 1250 mg IV every 12 hours * Regimen is predicted to achieve target AUC/ASHLEY of 400-600 mg/L.hr * Level to be ordered if continued >48 hours Pharmacy will continue to follow and will adjust dose/frequency as necessary. Thank you. Pharmacy has transitioned to AUC monitoring for vancomycin. AUC/ASHLEY is the preferred PK/PD target and is associated with decreased risk of nephrotoxicity compared to traditional trough targets.
--- NOTE | 2023-07-06 14:50 | History & Physical Report ---
Date of Service July 06, 2023 Assessment & Plan (1) Acute on chronic respiratory failure with hypoxia: (2) Interstitial lung disease: (3) Pulmonary HTN: (4) Chronic right-sided HF (heart failure): Plan: Admit to tele Patient presenting from home with reports of worsening shortness of breath and hypoxia. Recently admitted for acute on chronic hypoxic respiratory failure due to CHF and/or pneumonia in the setting of underlying interstitial lung disease. Patient discharged on increased O2 requirement --4 L at rest and 6 L with activity. Patient now requiring 6 L of oxygen with rest. PFTs from 05/2023 showed a significant worsening of lung function. CT chest without contrast 06/23/2023 showed progression of interstitial and fibrotic lung disease. In the ED, CXR suggestive of volume overload and/or pneumonia Currently afebrile, no leukocytosis, normal procalcitonin Suspect multifactorial etiology S/p Vanco and cefepime in the ED. Given recent hospitalization, will continue with both. Check MRSA nasal swab and if negative, can discontinue vancomycin. Follow blood cultures Started on Lasix 40 mg PO during last admission, received Lasix 40 mg IV in the ED, continue with Lasix 40 mg IV BID. May need titration of PO doses. Patient is to establish with ILD/PH clinic in [place]. Considering right and left heart cath for additional work-up. Pulmonary consult, input appreciated (5) Paroxysmal atrial fibrillation: Plan: Rhythm controlled on sotalol Not anticoagulated due to history of chronic anemia and bleeding issues (6) Hemolytic anemia: Plan: Possible, follows with heme-onc, currently on prednisone 10 mg daily Hgb 8.9, stable, at baseline Follow CBC (7) Pacemaker: (8) Tachy-lakeisha syndrome: Plan: No acute issue DVT PROPHYLAXIS SQ Lovenox Patient seen in collaboration with Dr. Romero. I spent a total of 75 minutes coordinating, documenting, and providing care for this patient excluding time spent in the performance of separately billed services. This included personally reviewing all current laboratories and imaging studies, medication reconciliation, outpatient chart review, and discussion with specialists. Admission and Anticipated Discharge Date Admission Date: July 06, 2023 History of Present Illness Chief Complaint: Shortness of Breath, Hypoxia Primary Care Provider: Kat Hawthorne DO 67 year old female with PMH chronic hypoxic respiratory failure on home O2, ILD, BERRY, ovarian cancer, paroxysmal atrial tachycardia, tachybradycardia syndrome s/p pacemaker, paroxysmal atrial fibrillation on sotalol, not anticoagulated due to anemia and bleeding issues, pulmonary hypertension, HTN, chronic diastolic CHF, and other problems listed below who presents to the ED for evaluation of shortness of breath and hypoxia. History obtained from the patient and review of outpatient PCP, pulmonary, cardiology records and recent inpatient records. Patient recently admitted to [facility] 06/17 through 06/22 for acute on chronic hypoxic respiratory failure felt to be due to pneumonia and/or volume overload. Patient discharged on Lasix. Patient is to follow with ILD specialist as an outpatient however has not had an appointment yet. There is also consideration for right and left heart cath. Patient notes increasing shortness of breath about one week ago. She states that her activity has been fairly limited recently due to shortness of breath. Home health nurse came to evaluate the patient 3 days ago and she was noted to have worsening hypoxia. She typically uses 4L with rest and 6L with activity and was requiring 6L at rest. Patient states her weights have been stable however she did take additional Lasix dose on 07/03 and 07/04. She feels like her shortness of breath was slightly improved with increased oxygen a nd after the additional Lasix. States that she feels like the worsening hypoxia was due to being rushed by the home health nurse. Patient denies cough and sputum production. No fever or chills. Today, she was at the wound care center and became short of breath when transferring. Patient was found to be profoundly hypoxic and was transferred to the ED for further evaluation. She denies chest pain. Reports intermittent mild lightheadedness however no dizziness or syncopal event. No abdominal pain, nausea, vomiting, diarrhea. Denies urinary symptoms. In the ED, patient was hypoxic at 84% on 15 L, patient did slowly improve and is currently saturating well on 6 L of oxygen. CXR is suggestive of pneumonia and/or CHF. She was given Lasix 40 mg IV, cefepime, Vanco. Allergies Allergy/AdvReac Type Severity Reaction Status Date / Time levofloxacin Allergy Intermediate LE Verified 07/06/23 12:06 swelling and blistering paclitaxel [From Taxol] Allergy Intermediate facial Verified 07/06/23 12:06 flushing, bradycardia doxorubicin AdvReac Severe Hypoxia Verified 07/06/23 12:06 clindamycin AdvReac Intermediate PT Verified 07/06/23 12:06 CONTRACTED C-DIFF shellfish derived AdvReac Intermediate NAUSEA,DIARRHEA, Verified 07/06/23 12:06 VOMITING adhesive AdvReac Mild SKIN Verified 07/06/23 12:06 BLISTERS SOME TIMES Home Medications Medication Instructions Recorded Confirmed Type lorazepam 0.5 mg tablet 0.5 mg PO Q8H PRN Anxiety 10/18/18 07/06/23 History sertraline 100 mg tablet (Zoloft) 100 mg PO QAM 10/18/18 07/06/23 History cyclobenzaprine 5 mg tablet 5 mg PO BID PRN Muscle Spasm 08/25/19 07/06/23 History omeprazole 20 mg capsule,delayed 20 mg PO BID 04/12/20 07/06/23 History release folic acid 1 mg tablet 1 mg PO QAM 05/08/20 07/06/23 History sotalol 80 mg tablet 80 mg PO BID 10/01/20 07/06/23 History cholecalciferol (vitamin D3) 50 2,000 unit PO QAM #90 tabs 04/09/21 07/06/23 Rx mcg (2,000 unit) tablet loratadine 10 mg tablet (Claritin) 10 mg PO QAM 09/18/22 07/06/23 History Portable Oxygen #1 ea 01/23/23 07/06/23 Rx acetaminophen 325 mg tablet 325 mg PO DIRECTED PRN 02/27/23 07/06/23 History (Tylenol) PAIN/FEVER albuterol sulfate 90 mcg/actuation 2 puff inhalation Q4H PRN Wheezing 02/27/23 07/06/23 History aerosol inhaler docusate sodium 100 mg capsule 100 mg PO BID 02/27/23 07/06/23 History (Stool Softener) fluoride (sodium) 1.1 % dental 1 applic dental BID 02/27/23 07/06/23 History cream (SF 5000 Plus) hydroxyzine HCl 25 mg tablet 25 mg PO HS PRN Itching 02/27/23 07/06/23 History gabapentin 300 mg capsule 300 mg PO TID 06/17/23 07/06/23 History prednisone 10 mg tablet 10 mg PO QAM 06/17/23 07/06/23 History amlodipine 5 mg tablet (Norvasc) 5 mg PO QAM #30 tabs 06/22/23 07/06/23 Rx magnesium chloride 64 mg 64 mg PO BID #30 tabs 06/22/23 07/06/23 Rx (magnesium chloride) tablet,delayed release (Mag 64) furosemide 40 mg tablet (Lasix) 40 mg PO QAM 07/06/23 07/06/23 History Past Med/Surg History Medical History (Updated 07/06/23 @ 16:21 by TAWANNA Edward) Anemia hx blood transfusions Hgb baseline 8-9 Anxiety Anxiety and depression Choledocholithiasis with obstruction S/p ERCP with stent placement on 01/20/23 Chronic hypoxemic respiratory failure Chronic right-sided HF (heart failure) Likely per cardio secondary to obesity hypo ventilatory syndrome/Pickwickian CKD (chronic kidney disease), stage [address] 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 WELSH). 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: underwent procedure without any complications; was monitored for 6 doses of sotalol before being discharged home Ventral hernia Surgical History H/O arthroscopy of knee H/O cystoscopy H/O gastric bypass "1980, reversed in same year" History of appendectomy (~09/07/20) History of arthroscopy LEFT KNEE History of colonoscopy History of ERCP (~09/2020) History of esophagogastroduodenoscopy (EGD) History of herniorrhaphy VENTRAL HERNIA REPAIR= 04/27/17= GRADE VIEW 2, CLEMENTE#2, ETT 7.0 AT [facility] History of lithotripsy History of tonsillectomy History of total hysterectomy with bilateral salpingo-oophorectomy (BSO) (~09/07/20) @ [facility] [place] with appy at same time History of vascular access device removed S/P adenoidectomy S/P left knee arthroscopy [place] teeth removed Family History Mother Scleroderma Lupus Family history of reaction to anesthesia nausea Father Coronary heart disease Heart disease Brother Fatty liver Aunt Cancer unspecified Grandfather (Paternal) Heart disease Grandfather (Maternal) Lung disease Grandmother (Paternal) Stroke Grandmother (Maternal) Family history of diabetes mellitus Social History Smoking Status: Never smoker Tobacco Type: Cigarettes Cigarettes Per Day: couple cigs on weekends in ; Second Hand Exposure: No; Do You Dip or Chew Tobacco: No; Tobacco Cessation Education Requested by Patient: No Hx Alcohol Use: No Hx Substance Use: No Preferred Language: Pashto Communication Ability: Effective Visual Impairment: No Limitations Production Supervisor Off Shift Required: No Beliefs That Will Affect Care: None marital status: Current Living Situation: Alone Current Living Situation Comment: home health current occupational status: retired How many Children do You have: 0 Other Information That Helps Us Care for You: No Feels Safe at Home: Yes Diet: regular during the past year weight has: remained stable Assistive Devices: Oxygen - Continuous, Raised Toilet Seat and Walker Physical Exam Constitutional: WD/WN, vitals as above no acute distress Eyes: PERRL, conjunctivae normal, anicteric sclerae ENMT: external ear and nose normal, oropharynx normal Respiratory: normal respiratory effort; no respiratory distress Auscultation: + diminished lung sounds and + crackles (BL bases) Cardiovascular: Rate/Rhythm: regular rate and regular rhythm Vessels: normal peripheral pulses Extremities: no edema Gastrointestinal (Abdomen): normal bowel sounds, soft, nontender, no hepatosplenomegaly Musculoskeletal: no cyanosis or clubbing, extremities motor strength 5/5 Skin: no rashes, warm and dry Neurologic: PERRL, EOMI, accommodation nl, no face palsy, no dysarthria Psychiatric: A+Ox3, euthymic affect Results & Data Results & Data Vital Signs (Past 12 Hours) Vital Signs Temp Pulse Pulse Resp BP BP Pulse Ox 07/06/23 12:13 67 20 113/84 93 07/06/23 11:13 68 20 134/70 96 07/06/23 11:00 69 22 94 07/06/23 10:50 69 24 99 07/06/23 10:43 80 20 100 07/06/23 10:43 199/95 H 07/06/23 10:40 72 16 100 07/06/23 10:37 73 17 100 07/06/23 10:59 69 07/06/23 10:52 49 L 07/06/23 10:30 84 L 07/06/23 10:26 36.9 C 73 28 H 49 L O2 Del Method O2 Flow Rate 07/06/23 12:13 Nasal Cannula 6 07/06/23 11:13 Nasal Cannula 6 07/06/23 11:00 Nasal Cannula 6 07/06/23 10:50 Nasal Cannula 6 07/06/23 10:43 07/06/23 10:43 07/06/23 10:40 07/06/23 10:37 07/06/23 10:59 07/06/23 10:52 Nasal Cannula 5 07/06/23 10:30 Non-rebreather 15 07/06/23 10:26 Oxymask 5 Laboratory Results Short CBC 07/06/23 Range/Units 10:49 WBC 8.32 (4.8-10.8) K/ul Hgb 8.9 L (12.0-16.0) g/dl Hct 30.0 L (37.0-47.0) % Plt Count 137 (130-400) K/uL BMP 07/06/23 10:49 Sodium 138 Potassium 4.1 Chloride 95 L Carbon Dioxide 37 H BUN 31 H Creatinine 0.82 Glucose 145 H Calcium 9.8 Liver Function 07/06/23 Range/Units 10:49 Total Bilirubin 0.6 (0.2-1.0) mg/dl AST 19 (13-39) U/L ALT 14 (7-52) U/L Alkaline Phosphatase 85 (34-104) U/L Albumin 4.0 (3.4-5.0) gm/dl Diagnostic Findings Chest X-Ray 07/06/23 10:40 XR chest 1V portable CLINICAL HISTORY: sob, hypoxic TECHNIQUE: Single frontal radiograph of the chest was obtained. Comparison: Comparison is made to chest radiograph 06/20/2023 FINDINGS: Dual lead pacemaker is seen. The cardiomediastinal silhouette is stable. Mult ifocal airspace opacities are seen. No evidence of pleural effusion or pneumothorax. IMPRESSION: Interval worsening of multifocal airspace disease compatible with pneumonia and/or pulmonary edema. ACT 112: Negative or not required by law. Electronically signed by: Lito Carvalho M.D. 07/06/2023 11:02 AM Code Status & VTE Plan VTE Prophylaxis Plan VTE Prophylaxis will be ordered: Yes Supervising Physician Co-Signing Physician Notes 73 yr old female presenting with acute on chronic respiratory failure with chronic heart failure treated with bronchodilaters, antibiotics oxygen. Continue vanco and cefepime. Chest xray suggestive of volume overload Anemia stable and close to baseline
[2023-07-06] MEDS: ENOXAPARIN INJ 40 MG/0.4 ML SYR SQ SCH (18:37)
[2023-07-06] MEDS: LORazepam 0.5 MG TAB PO PRN (19:44)
[2023-07-06] MEDS: CEFEPIME 2,000 MG in SYRINGE 0 ML IV SCH (20:17)
[2023-07-06] MEDS: SOTALOL HCL 80 MG TAB PO SCH (20:32)
[2023-07-06] MEDS: PANTOprazole 40 MG TAB PO SCH (20:32)
[2023-07-06] MEDS: MAGNESIUM CHLORIDE W/CALCIUM 64MG DELAYED REL TAB PO SCH (20:33)
[2023-07-06] MEDS: GABAPENTIN 300 MG CAP PO SCH (20:33)
[2023-07-06] MEDS: DOCUSATE SODIUM 100 MG CAP PO SCH (20:33)
[2023-07-07] MEDS ORDERED: VANCOMYCIN HCL 1,250 MG in SODIUM CHLORIDE 0.9% 250 ML IV SCH
[2023-07-07] MEDS: CEFEPIME 2,000 MG in SYRINGE 0 ML IV SCH ×3 (04:05→20:13)
--- NOTE | 2023-07-07 06:13 | Electrocardiogram Report ---
Test Reason : Blood Pressure : / mmHG Vent. Rate : 072 BPM Atrial Rate : 072 BPM P-R Int : 138 ms QRS Dur : 090 ms QT Int : 424 ms P-R-T Axes : 031 000 037 degrees QTc Int : 464 ms Normal sinus rhythm Moderate voltage criteria for LVH, may be normal variant Borderline ECG When compared with ECG of 17-JUN-2023 14:32, No significant change was found Confirmed by Toan Carrion ([id number]) on 07/07/2023 6:12:55 AM Referred By: REFERRED SELF Confirmed By:Toan Carrion
[2023-07-07 06:21] LABS: Hematocrit (blood only) 27.8 % (37.0-47.0); Hemoglobin 8.2 g/dl (12.0-16.0); Mean Corpuscular Hemoglobin 27.8 pg (25.0-34.0); Mean Corpuscular Hgb Conc 29.5 g/dL (32.0-36.0); Mean Corpuscular Volume 94.2 fL (80.0-100.0); Mean Platelet Volume 11.3 fL (9.4-12.4); Nucleated RBC # (auto) 0.03 K/uL (0.00-0.12); Nucleated RBC % (auto) 0.4 %; Platelet Count 135 K/uL (130-400); RDW Coefficient of Variation 20.9 % (11.5-14.5); RDW Standard Deviation 72.4 fL (36.4-46.3); Red Blood Count 2.95 M/uL (4.20-5.40); White Blood Count 7.31 K/ul (4.8-10.8)
[2023-07-07 06:34] LABS: BUN Creatinine Ratio 36.6 (10-20); Calcium 9.4 mg/dl (8.6-10.3); Creatinine Clr Calc Pharmacy 80.5 ml/min; Est GFR (African American) 84.6 ml/min; Potassium 3.9 mmol/L (3.5-5.1)
[2023-07-07] MEDS: SOTALOL HCL 80 MG TAB PO SCH ×2 (08:27→20:16)
[2023-07-07] MEDS: MAGNESIUM CHLORIDE W/CALCIUM 64MG DELAYED REL TAB PO SCH ×2 (08:27→20:16)
[2023-07-07] MEDS: PANTOprazole 40 MG TAB PO SCH ×2 (08:27→20:15)
[2023-07-07] MEDS: GABAPENTIN 300 MG CAP PO SCH ×3 (08:27→20:15)
[2023-07-07] MEDS: LORATADINE 10 MG TAB PO SCH (08:28)
[2023-07-07] MEDS: FUROSEMIDE 40 MG/4 ML VIAL IV SCH ×2 (08:28→20:20)
[2023-07-07] MEDS: CHOLECALCIFEROL 1,000 UNITS 25 MCG TAB PO SCH (08:28)
[2023-07-07] MEDS: DOCUSATE SODIUM 100 MG CAP PO SCH ×2 (08:28→20:20)
[2023-07-07] MEDS: amLODIPine BESYLATE 5 MG TAB PO SCH (08:28)
[2023-07-07] MEDS: FOLIC ACID 1 MG TAB PO SCH (08:28)
[2023-07-07] MEDS: predniSONE 10 MG TABLET PO SCH (08:28)
[2023-07-07] MEDS: SERTRALINE HCL 100 MG TABLET PO SCH (08:28)
[2023-07-07] MEDS: LORazepam 0.5 MG TAB PO PRN ×2 (08:35→20:20)
--- NOTE | 2023-07-07 13:09 | Critical Care Consultation ---
Date of Consultation July 07, 2023 Assessment & Plan (1) Pacemaker: (2) Hemolytic anemia: (3) Chronic right-sided HF (heart failure): (4) Pulmonary HTN: (5) Acute on chronic respiratory failure with hypoxia: (6) Liver cirrhosis secondary to WEIR: (7) Paroxysmal atrial fibrillation: (8) Ovarian cancer: (9) BERRY (obstructive sleep apnea): (10) Chronic hypoxemic respiratory failure: (11) BERRY (obstructive sleep apnea): (12) CKD (chronic kidney disease), stage III: Plan ASSESSMENT/PLAN: 1. Acute on Chronic Respiratory Failure -Known ILD/Pulmonary HTN -recommend outpt right & Left Cardiac catheterization -continue steroids -using Cefepime -supplemental oxygen -send sputum culture -F/U with [facility] in [place] 2. ILD -currently no treatment with Pirfenidone(Omfev) -follows with pulmonary clinic at [facility] -continue oxygen -PFT'S in May 2023 3. Pulmonary HTN -recent ECHO has shown only mild pulm HTN 4. Ovarian CA -Stage 1c -S/P chemotherapy: Taxol/Carboplatin 5. BERRY -intolerant of CPAP -may require other options of treatment 6. Chronic Right HF -Diastolic Dysfunction-Grade 1 -diuresis and negative I's + O's Total pulmonary time spent examining and speaking to patient, reviewing all of her diagnostic studies and her past consultations and documentation, radiologic studies and discussing her pulmonary management with the pulmonary team, including Judah Yan PA-C exclusive any invasive procedures or family conferences today was 50 minutes on 07/07/2023. History of Present Illness Reason for Consultation: Increasing dyspnea and patient known to pulmonary service Requesting Physician: Solo Romero MD Attending Physician: Nixon Sherman MD History of Present Illness This 67-year-old woman with an underlying history of ILD/pulmonary hypertension presents to [facility] after recently being admitted the beginning of June for increasing shortness of breath with similar symptoms at this time where she is normally seen at the [facility] in [place]. Patient states that her next follow-up appointment is not till October 2023. She was seen by the pulmonary service on June 21 due to increa sing shortness of breath recommended that she undergo both a left and right heart catheterization for further evaluation of pulmonary hypertension which may be adding to her symptomatology regarding her dyspnea. Normally she is on 4 L nasal cannula at rest and 6 L with activity. Currently at this time while in the hospital she is on 6 L nasal cannula. Admission procalcitonin was normal. She was given a dose of vancomycin and cefepime in the emergency room. Patient did have full pulmonary function test performed in May 2023 showing worsening pulmonary function at that time. Allergies Allergy/AdvReac Type Severity Reaction Status Date / Time levofloxacin Allergy Intermediate LE Verified 07/06/23 12:06 swelling and blistering paclitaxel [From Taxol] Allergy Intermediate facial Verified 07/06/23 12:06 flushing, bradycardia doxorubicin AdvReac Severe Hypoxia Verified 07/06/23 12:06 clindamycin AdvReac Intermediate PT Verified 07/06/23 12:06 CONTRACTED C-DIFF shellfish derived AdvReac Intermediate NAUSEA,DIARRHEA, Verified 07/06/23 12:06 VOMITING adhesive AdvReac Mild SKIN Verified 07/06/23 12:06 BLISTERS SOME TIMES Home Medications Medication Instructions Recorded Confirmed Type lorazepam 0.5 mg tablet 0.5 mg PO Q8H PRN Anxiety 10/18/18 07/06/23 History sertraline 100 mg tablet (Zoloft) 100 mg PO QAM 10/18/18 07/06/23 History cyclobenzaprine 5 mg tablet 5 mg PO BID PRN Muscle Spasm 08/25/19 07/06/23 History omeprazole 20 mg capsule,delayed 20 mg PO BID 04/12/20 07/06/23 History release folic acid 1 mg tablet 1 mg PO QAM 05/08/20 07/06/23 History sotalol 80 mg tablet 80 mg PO BID 10/01/20 07/06/23 History cholecalciferol (vitamin D3) 50 2,000 unit PO QAM #90 tabs 04/09/21 07/06/23 Rx mcg (2,000 unit) tablet loratadine 10 mg tablet (Claritin) 10 mg PO QAM 09/18/22 07/06/23 History Portable Oxygen #1 ea 01/23/23 07/06/23 Rx acetaminophen 325 mg tablet 325 mg PO DIRECTED PRN 02/27/23 07/06/23 History (Tylenol) PAIN/FEVER albuterol sulfate 90 mcg/actuation 2 puff inhalation Q4H PRN Wheezing 02/27/23 07/06/23 History aerosol inhaler docusate sodium 100 mg capsule 100 mg PO BID 02/27/23 07/06/23 History (Stool Softener) fluoride (sodium) 1.1 % dental 1 applic dental BID 02/27/23 07/06/23 History cream (SF 5000 Plus) hydroxyzine HCl 25 mg tablet 25 mg PO HS PRN Itching 02/27/23 07/06/23 History gabapentin 300 mg capsule 300 mg PO TID 06/17/23 07/06/23 History prednisone 10 mg tablet 10 mg PO QAM 06/17/23 07/06/23 History amlodipine 5 mg tablet (Norvasc) 5 mg PO QAM #30 tabs 06/22/23 07/06/23 Rx magnesium chloride 64 mg 64 mg PO BID #30 tabs 06/22/23 07/06/23 Rx (magnesium chloride) tablet,delayed release (Mag 64) furosemide 40 mg tablet (Lasix) 40 mg PO QAM 07/06/23 07/06/23 History Patient History Medical History (Updated 07/06/23 @ 16:21 by TAWANNA Edward) Anemia hx blood transfusions Hgb baseline 8-9 Anxiety Anxiety and depression Choledocholithiasis with obstruction S/p ERCP with stent placement on 01/20/23 Chronic hypoxemic respiratory failure Chronic right-sided HF (heart failure) Likely per cardio secondary to obesity hypo ventilatory syndrome/Pickwickian CKD (chronic kidney disease), stage III [address] 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 WELSH). 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: underwent procedure without any complications; was monitored for 6 doses of sotalol before being discharged home Ventral hernia Surgical History H/O arthroscopy of knee H/O cystoscopy H/O gastric bypass "1980, reversed in same year" History of appendectomy (~09/07/20) History of arthroscopy LEFT KNEE History of colonoscopy History of ERCP (~09/2020) History of esophagogastroduodenoscopy (EGD) History of herniorrhaphy VENTRAL HERNIA REPAIR= 04/27/17= GRADE VIEW 2, CLEMENTE#2, ETT 7.0 AT [facility] History of lithotripsy History of tonsillectomy History of total hysterectomy with bilateral salpingo-oophorectomy (BSO) (~09/07/20[place] [facility] [place] History of vascular access device removed S/P adenoidectomy S/P left knee arthroscopy [place] teeth removed Family History Mother Scleroderma Lupus Family history of reaction to anesthesia nausea Father Coronary heart disease Heart disease Brother Fatty liver Aunt Cancer unspecified Grandfather (Paternal) Heart disease Grandfather (Maternal) Lung disease Grandmother (Paternal) Stroke Grandmother (Maternal) Family history of diabetes mellitus Social History Smoking Status: Never smoker Tobacco Type: Cigarettes Cigarettes Per Day: couple cigs on weekends in ; Second Hand Exposure: No; Do You Dip or Chew Tobacco: No; Tobacco Cessation Education Requested by Patient: No Hx Alcohol Use: No Hx Substance Use: No Preferred Language: Luxembourgish Communication Ability: Effective Visual Impairment: No Limitations Breakdown Person Required: No Beliefs That Will Affect Care: None marital status: Current Living Situation: Alone Current Living Situation Comment: home health current occupational status: retired How many Children do You have: 0 Other Information That Helps Us Care for You: No Feels Safe at Home: Yes Diet: regular during the past year weight has: remained stable Assistive Devices: Oxygen - Continuous, Raised Toilet Seat and Walker Review of Systems Review of Systems: All systems reviewed & are unremarkable except as noted in Subjective Physical Exam Constitutional: Patient resting comfortably on 6 L nasal cannula does not appear to be in any acute distress. She is mildly obese. Eyes: PERRL, conjunctivae normal, anicteric sclerae ENMT: external ear and nose normal, oropharynx normal Neck: trachea midline, no thyromegaly Respiratory: Find end expiratory crackles noted to both left and right posterior thoraces in the inferior region although patient has good inspiratory and expiratory efforts. Reviewed the chest x-ray revealed her lung alexander to be consistent with fine reticular nodular pattern mostly to the lower lung zones consistent with interstitial lung disease. No new effusions or pulmonary masses observed Cardiovascular: RRR, no murmur, no edema Rate/Rhythm: regular rate and regular rhythm Gastrointestinal (Abdomen): normal bowel sounds, soft, nontender, no hepatosplenomegaly Musculoskeletal: Some bony deformities to patient's wrist hands knees and feet consistent with arthritis. No significant pleural effusion no evidence of clubbing or cyanosis. Skin: Thin and frail without any evidence of skin tears abrasions or significant ecchymosis Neurologic: patellar DTR's 2+ bilat, sensation intact and PERRL, EOMI, accommodation nl, no face palsy, no dysarthria Psychiatric: A+Ox3, euthymic affect Results & Data Results & Data Vital Signs (Past 12 Hours) Vital Signs Temp Pulse Resp BP BP Pulse Ox O2 Del Method 07/07/23 09:00 Nasal Cannula 07/07/23 10:30 36.8 C 65 18 135/76 88 L Nasal Cannula 07/07/23 07:38 36.6 C 64 17 133/77 90 Room Air 07/07/23 04:06 36.5 C 63 20 131/76 91 Nasal Cannula O2 Flow Rate 07/07/23 09:00 6 07/07/23 10:30 6 07/07/23 07:38 07/07/23 04:06 6.0 Diagnostic Findings Portable chest x-ray consistent with interval worsening of multifocal airspace disease compatible with pneumonia and/or pulmonary edema. Abdominal and pelvic CT scan performed on revealed multifocal airspace consolidation in both lung bases. Cholelithiasis. Marked splenomegaly. Presence of pacemaker. Chemistry Results CMP Results: Na 138 mmol/L (136-145) 07/07/23 K 3.9 mmol/L (3.5-5.1) 07/07/23 Cl 95 mmol/L (98-107) L 07/07/23 CO2 38 mmol/L (21-32) H 07/07/23 Anion Gap 5 (3-11) 07/07/23 BUN 30 mg/dl (6-23) H 07/07/23 Creatinine 0.82 mg/dl (0.6-1.2) 07/07/23 Estimated GFR ( Amer) 84.6 ml/min 07/07/23 Estimated GFR (Non-Af Amer) 73.0 ml/min 07/07/23 BUN/Creatinine Ratio 36.6 (10-20) H 07/07/23 Glu 128 mg/dl (70-99(Fasting)) H 07/07/23 Ca 9.4 mg/dl (8.6-10.3) 07/07/23 Phosphorus Level 3.9 mg/dL (2.5-4.9) 12/25/21 Total Bilirubin 0.6 mg/dl (0.2-1.0) 07/06/23 Direct Bilirubin 6.0 mg/dl (0-0.2) H 01/16/23 AST 19 U/L (13-39) 07/06/23 ALT 14 U/L (7-52) 07/06/23 Alkaline Phosphatase 85 U/L (34-104) 07/06/23 TP 7.8 gm/dl (6.0-8.3) 07/06/23 Albumin 4.0 gm/dl (3.4-5.0) 07/06/23 Globulin 3.8 gm/dl (2.5-4.0) 07/06/23 Albumin/Globulin Ratio 1.1 (0.9-2) 07/06/23 Lactate Dehydrogenase 194 U/L (86-244) 05/26/23 COVID-19 Results Results COVID-19 Adm Lab Results: RBC 2.95 M/uL (4.20-5.40) L 07/07/23 WBC 7.31 K/ul (4.8-10.8) 07/07/23 Hgb 8.2 g/dl (12.0-16.0) L 07/07/23 Hct 27.8 % (37.0-47.0) L 07/07/23 Plt Count 135 K/uL (130-400) 07/07/23 Neutrophils (%) (Auto) 84.7 % 07/06/23 Lymphocytes (%) (Auto) 7.7 % 07/06/23 Monocytes # (Auto) 0.41 K/uL (0.11-0.59) 07/06/23 Eosinophils # (Auto) 0.10 K/uL (0.00-0.50) 07/06/23 Immature Granulocyte % (Auto) 1.3 % 07/06/23 Neutrophils # (Auto) 7.04 K/uL (1.40-6.50) H 07/06/23 Lymphocytes # (Auto) 0.64 K/uL (1.20-3.40) L 07/06/23 Monocytes # (Auto) 0.41 K/uL (0.11-0.59) 07/06/23 Eosinophils # (Auto) 0.10 K/uL (0.00-0.50) 07/06/23 Basophils # (Auto) 0.02 K/uL (0.00-0.20) 07/06/23 Immature Granulocyte # (Auto) 0.11 K/uL (0.01-0.20) 3 Polychromasia 1+ 07/06/23 Anisocytosis Present 07/06/23 Tear Drop Cells 1+ 07/06/23 Na 138 mmol/L (136-145) 07/07/23 K 3.9 mmol/L (3.5-5.1) 07/07/23 Cl 95 mmol/L (98-107) L 07/07/23 CO2 38 mmol/L (21-32) H 07/07/23 Anion Gap 5 (3-11) 07/07/23 BUN 30 mg/dl (6-23) H 07/07/23 Creatinine 0.82 mg/dl (0.6-1.2) 07/07/23 BUN/Creatinine Ratio 36.6 (10-20) H 07/07/23 Glucose Level 128 mg/dl (70-99(Fasting)) H 07/07/23 Ca 9.4 mg/dl (8.6-10.3) 07/07/23 Total Bilirubin 0.6 mg/dl (0.2-1.0) 07/06/23 AST/SGOT 19 U/L (13-39) 07/06/23 ALT/SGPT 14 U/L (7-52) 07/06/23 Alkaline Phosphatase 85 U/L (34-104) 07/06/23 Total Protein 7.8 gm/dl (6.0-8.3) 07/06/23 Albumin 4.0 gm/dl (3.4-5.0) 07/06/23 Globulin 3.8 gm/dl (2.5-4.0) 07/06/23 Albumin/Globulin Ratio 1.1 (0.9-2) 07/06/23 Procalcitonin 0.05 ng/ml (0-0.5) 07/06/23 INR 1.0 (0.9-1.1) 07/06/23 Adenovirus (PCR) Not Detected (NotDetected) 07/06/23 B. parapertussis DNA (PCR) Not Detected (NotDetected) 06/10 07/01 B. pertussis DNA (PCR) Not Detected (NotDetected) 07/06/23 C. pneumoniae DNA (PCR) Not Detected (NotDetected) 3 Coronavirus Type OC43 (PCR) Not Detected (NotDetected) Coronavirus Type HKU1 (PCR) Not Detected (NotDetected) Coronavirus Type 229E (PCR) Not Detected (NotDetected) COVID-19 PCR Not Detected (NotDetected) 07/06/23 Coronavirus Type NL63 (PCR) Not Detected (NotDetected) Human Metapneumovirus (PCR) Not Detected (NotDetected) Influenza Virus Type A (PCR) Not Detected (NotDetected) Influenza Virus Type B (PCR) Not Detected (NotDetected) M. pneumoniae (PCR) Not Detected (NotDetected) 07/06/23 Parainfluenza Type 1 (PCR) Not Detected (NotDetected) 06/10 07/01 Parainfluenza Type 2 (PCR) Not Detected (NotDetected) 06/10 07/01 Parainfluenza Type 3 (PCR) Not Detected (NotDetected) 06/10 07/01 Parainfluenza Type 4 (PCR) Not Detected (NotDetected) 06/10 07/01 RSV (PCR) Not Detected (NotDetected) 07/06/23 Enterovirus/Rhinovirus (PCR) Not Detected (NotDetected) Chest X-Ray 07/06/23 Coding Level of Care Code 05756 IN/OBS CONSULT LVL 3,45M Diagnoses Pacemaker Z95.0 Hemolytic anemia D58.9 Chronic right-sided HF (heart failure) I50.812 Pulmonary HTN I27.20 Acute on chronic respiratory failure with hypoxia J96.21 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 (8) Ovarian cancer Laterality: unspecified laterality Qualified Code(s): C56.9 - Malignant neoplasm of unspecified ovary
--- NOTE | 2023-07-07 13:11 | Hospitalist Progress Note ---
Date of Service July 07, 2023 Assessment & Plan (1) Acute on chronic respiratory failure with hypoxia: (2) Interstitial lung disease: (3) Pulmonary HTN: (4) Chronic right-sided HF (heart failure): Plan: Patient presenting from home with reports of worsening shortness of breath and hypoxia. Recently admitted for acute on chronic hypoxic respiratory failure due to CHF and/or pneumonia in the setting of underlying interstitial lung disease. Patient discharged on increased O2 requirement --4 L at rest and 6 L with activity. Patient now requiring 6 L of oxygen with rest. PFTs from 05/2023 showed a significant worsening of lung function. CT chest without contrast 06/23/2023 showed progression of interstitial and fibrotic lung disease. Chest x-ray on admission personally reviewed; increasing bilateral infiltrate. Currently afebrile, no leukocytosis, normal procalcitonin Was started on cefepime and Vanco for possible pneumonia. Vancomycin DC'd as MRSA is negative. Started on IV Lasix 40 mg twice daily for possible pulmonary edema. Pulmonology consulted; appreciate recommendation. Follow blood cultures (5) Paroxysmal atrial fibrillation: Plan: Rhythm controlled on sotalol EKG personally reviewed from admission; normal sinus rhythm. QTc of 464 Not anticoagulated due to history of chronic anemia and bleeding issues (6) Hemolytic anemia: Plan: Follows with heme-onc, currently on prednisone 10 mg daily Hgb 8.9, stable, at baseline LDH, reticulocyte and haptoglobin ordered for a.m. labs as per recommended by her outpatient medication specialist Dr. Marion (7) Pacemaker: (8) Tachy-lakeisha syndrome: Plan: No acute issue Continue to monitor on telemetry. DVT PROPHYLAXIS SQ Lovenox Time spent evaluating patient, direct bedside care, chart review, placing orders, interpretation of diagnostic studies, discussion with consultants, patient, and family members, as well as other required patient management activities is 60 minutes. Please note the above document was generated using voice recognition software. It may contain grammatical, syntax or spelling errors. Any formal questions or concerns about the content, text or information contained within the body of this dictation should be directly addressed to the provider for clarification Admission and Anticipated Discharge Date Admission Date: July 06, 2023 Subjective Patient seen and examined at bedside. She appears to be short of breath. She reports that she got short of breath on ambulation to the toilet. Reports that her SPO2 dropped down to 70s on ambulation. Review of Systems Review of Systems: All systems reviewed & are unremarkable except as noted in Subjective Physical Exam Physical Exam: Constitutional: Awake, alert orient x3; appears to be in mild to moderate respiratory distress. Respiratory: Bilateral crackles heard Cardiovascular: RRR, no murmur, no edema Vessels: no JVD or carotid bruit Chest: normal inspection of chest Abdomen: normal bowel sounds, soft, nontender, no hepatosplenomegaly Musculoskeletal: no cyanosis or clubbing, extremities motor strength 5/5. Wound present in dorsal aspect of left foot; healing well. Also wound on hand healing as well. Skin: no rashes, warm and dry normal turgor Neurologic: PERRL, EOMI, accommodation nl, no face palsy, no dysarthria CN's II- XI intact bilaterally and moves all extremities Psychiatric: A+Ox3, euthymic affect Results & Data Results & Data Vital Signs (Past 12 Hours) Vital Signs Temp Pulse Resp BP BP Pulse Ox O2 Del Method 07/07/23 09:00 Nasal Cannula 07/07/23 10:30 36.8 C 65 18 135/76 88 L Nasal Cannula 07/07/23 07:38 36.6 C 64 17 133/77 90 Room Air 07/07/23 04:06 36.5 C 63 20 131/76 91 Nasal Cannula O2 Flow Rate 07/07/23 09:00 6 07/07/23 10:30 6 07/07/23 07:38 07/07/23 04:06 6.0 Laboratory Results Laboratory Results WBC 7.31 K/ul (4.8-10.8) 07/07/23 05:56 RBC 2.95 M/uL (4.20-5.40) L 07/07/23 05:56 Hgb 8.2 g/dl (12.0-16.0) L 07/07/23 05:56 Hct 27.8 % (37.0-47.0) L 07/07/23 05:56 MCV 94.2 fL (80.0-100.0) 07/07/23 05:56 MCH 27.8 pg (25.0-34.0) 07/07/23 05:56 MCHC 29.5 g/dL (32.0-36.0) L 07/07/23 05:56 RDW Std Deviation 72.4 fL (36.4-46.3) H 07/07/23 05:56 RDW Coeff of Patrica 20.9 % (11.5-14.5) H 07/07/23 05:56 Plt Count 135 K/uL (130-400) 07/07/23 05:56 MPV 11.3 fL (9.4-12.4) 07/07/23 05:56 Immature Gran % (Auto) 1.3 % 07/06/23 10:49 Neut % (Auto) 84.7 % 07/06/23 10:49 Lymph % (Auto) 7.7 % 07/06/23 10:49 [place] % (Auto) 4.9 % 07/06/23 10:49 Eos % (Auto) 1.2 % 07/06/23 10:49 Baso % (Auto) 0.2 % 07/06/23 10:49 Neut # (Auto) 7.04 K/uL (1.40-6.50) H 07/06/23 10:49 Lymph # (Auto) 0.64 K/uL (1.20-3.40) L 07/06/23 10:49 [place] # (Auto) 0.41 K/uL (0.11-0.59) 07/06/23 10:49 Eos # (Auto) 0.10 K/uL (0.00-0.50) 07/06/23 10:49 Baso # (Auto) 0.02 K/uL (0.00-0.20) 07/06/23 10:49 Immature Gran # (Auto) 0.11 K/uL (0.01-0.20) 07/06/23 10:49 Absolute Nucleated RBC 0.03 K/uL (0.00-0.12) 07/07/23 05:56 Nucleated RBC % (auto) 0.4 % 07/07/23 05:56 Polychromasia 1+ 07/06/23 10:49 Anisocytosis Present 07/06/23 10:49 Tear Drop Cells 1+ 07/06/23 10:49 PT 10.9 Seconds (9.0-12.0) 07/06/23 10:49 INR 1.0 (0.9-1.1) 07/06/23 10:49 Sodium 138 mmol/L (136-145) 07/07/23 05:56 Potassium 3.9 mmol/L (3.5-5.1) 07/07/23 05:56 Chloride 95 mmol/L (98-107) L 07/07/23 05:56 Carbon Dioxide 38 mmol/L (21-32) H 07/07/23 05:56 Anion Gap 5 (3-11) 07/07/23 05:56 BUN 30 mg/dl (6-23) H 07/07/23 05:56 Creatinine 0.82 mg/dl (0.6-1.2) 07/07/23 05:56 Est Cr Clr Drug Dosing 80.5 ml/min 07/07/23 05:56 Est GFR ( Amer) 84.6 ml/min 07/07/23 05:56 Est GFR (Non-Af Amer) 73.0 ml/min 07/07/23 05:56 BUN/Creatinine Ratio 36.6 (10-20) H 07/07/23 05:56 Glucose 128 mg/dl (70-99(Fasting)) H 07/07/23 05:56 Calcium 9.4 mg/dl (8.6-10.3) 07/07/23 05:56 Magnesium 1.7 mg/dl (1.7-2.4) 07/06/23 10:49 Total Bilirubin 0.6 mg/dl (0.2-1.0) 07/06/23 10:49 AST 19 U/L (13-39) 07/06/23 10:49 ALT 14 U/L (7-52) 07/06/23 10:49 Alkaline Phosphatase 85 U/L (34-104) 07/06/23 10:49 Troponin I High Sens 7.2 pg/ml (0-14) 07/06/23 10:49 B-Natriuretic Peptide 257 pg/ml (0-100) H 07/06/23 10:49 Total Protein 7.8 gm/dl (6.0-8.3) 07/06/23 10:49 Albumin 4.0 gm/dl (3.4-5.0) 07/06/23 10:49 Globulin 3.8 gm/dl (2.5-4.0) 07/06/23 10:49 Albumin/Globulin Ratio 1.1 (0.9-2) 07/06/23 10:49 Procalcitonin 0.05 ng/ml (0-0.5) 07/06/23 12:45 TSH 1.688 uIu/ml (0.300-4.500) 07/06/23 10:49 Nasal Screen MRSA (PCR) Negative (Negative) 07/06/23 19:50 Adenovirus (PCR) Not Detected (NotDetected) 07/06/23 11:28 B. pertussis DNA (PCR) Not Detected (NotDetected) 07/06/23 11:28 B.parapertussis DNA PCR Not Detected (NotDetected) 07/06/23 11:28 C. pneumoniae DNA (PCR) Not Detected (NotDetected) 07/06/23 11:28 Coronavirus OC43 (PCR) Not Detected (NotDetected) 07/06/23 11:28 Coronavirus HKU1 (PCR) Not Detected (NotDetected) 07/06/23 11:28 Coronavirus 229E (PCR) Not Detected (NotDetected) 07/06/23 11:28 SARS-CoV-2 (PCR) Not Detected (NotDetected) 07/06/23 11:28 Coronavirus NL63 (PCR) Not Detected (NotDetected) 07/06/23 11:28 Human Metapneumovir PCR Not Detected (NotDetected) 07/06/23 11:28 Influenza Type A (PCR) Not Detected (NotDetected) 07/06/23 11:28 Influenza Type B (PCR) Not Detected (NotDetected) 07/06/23 11:28 M. pneumoniae (PCR) Not Detected (NotDetected) 07/06/23 11:28 Parainfluenza 1 (PCR) Not Detected (NotDetected) 07/06/23 11:28 Parainfluenza 2 (PCR) Not Detected (NotDetected) 07/06/23 11:28 Parainfluenza 3 (PCR) Not Detected (NotDetected) 07/06/23 11:28 Parainfluenza 4 (PCR) Not Detected (NotDetected) 07/06/23 11:28 RSV (PCR) Not Detected (NotDetected) 07/06/23 11:28 Entero/Rhino (PCR) Not Detected (NotDetected) 07/06/23 11:28 Impressions Chest X-Ray 07/06/23 10:40 XR chest 1V portable CLINICAL HISTORY: sob, hypoxic TECHNIQUE: Single frontal radiograph of the chest was obtained. Comparison: Comparison is made to chest radiograph 06/20/2023 FINDINGS: Dual lead pacemaker is seen. The cardiomediastinal silhouette is stable. Multifocal airspace opacities are seen. No evidence of pleural effusion or pneumothorax. IMPRESSION: Interval worsening of multifocal airspace disease compatible with pneumonia and/or pulmonary edema. ACT 112: Negative or not required by law. Electronically signed by: Lito Carvalho M.D. 07/06/2023 11:02 AM
[2023-07-07] MEDS: ENOXAPARIN INJ 40 MG/0.4 ML SYR SQ SCH (15:58)
[2023-07-08] MEDS: ACETAMINOPHEN 325 MG TAB PO PRN ×2 (01:13→21:25)
[2023-07-08] MEDS: CEFEPIME 2,000 MG in SYRINGE 0 ML IV SCH ×3 (03:38→20:38)
[2023-07-08] MEDS: LORazepam 0.5 MG TAB PO PRN ×2 (08:06→20:38)
[2023-07-08] MEDS: PANTOprazole 40 MG TAB PO SCH ×2 (08:07→20:40)
[2023-07-08] MEDS: GABAPENTIN 300 MG CAP PO SCH ×3 (08:07→20:39)
[2023-07-08] MEDS: MAGNESIUM CHLORIDE W/CALCIUM 64MG DELAYED REL TAB PO SCH ×2 (08:07→20:40)
[2023-07-08] MEDS: FOLIC ACID 1 MG TAB PO SCH (08:07)
[2023-07-08] MEDS: SOTALOL HCL 80 MG TAB PO SCH ×2 (08:07→20:40)
[2023-07-08] MEDS: SERTRALINE HCL 100 MG TABLET PO SCH (08:08)
[2023-07-08] MEDS: LORATADINE 10 MG TAB PO SCH (08:08)
[2023-07-08] MEDS: CHOLECALCIFEROL 1,000 UNITS 25 MCG TAB PO SCH (08:08)
[2023-07-08] MEDS: predniSONE 10 MG TABLET PO SCH (08:08)
[2023-07-08] MEDS: amLODIPine BESYLATE 5 MG TAB PO SCH (08:08)
[2023-07-08] MEDS: FUROSEMIDE 40 MG/4 ML VIAL IV SCH ×2 (08:13→20:38)
[2023-07-08 08:18] LABS: Hematocrit (blood only) 26.4 % (37.0-47.0); Hemoglobin 8.1 g/dl (12.0-16.0); Mean Corpuscular Hemoglobin 28.3 pg (25.0-34.0); Mean Corpuscular Hgb Conc 30.7 g/dL (32.0-36.0); Mean Corpuscular Volume 92.3 fL (80.0-100.0); Mean Platelet Volume 10.7 fL (9.4-12.4); Nucleated RBC # (auto) 0.03 K/uL (0.00-0.12); Nucleated RBC % (auto) 0.4 %; Platelet Count 136 K/uL (130-400); Red Blood Count 2.86 M/uL (4.20-5.40); White Blood Count 6.75 K/ul (4.8-10.8)
[2023-07-08 08:37] LABS: Albumin Level 3.7 gm/dl (3.4-5.0); BUN Creatinine Ratio 28.9 (10-20); Bilirubin,Total 0.7 mg/dl (0.2-1.0); Calcium 9.4 mg/dl (8.6-10.3); Creatinine Clr Calc Pharmacy 67.6 ml/min; Est GFR (African American) 69.1 ml/min; Est GFR (Non-African American) 59.6 ml/min; Globulin 3.6 gm/dl (2.5-4.0); Potassium 3.7 mmol/L (3.5-5.1); Total Protein 7.3 gm/dl (6.0-8.3)
[2023-07-08 08:40] LABS: Basophils # (auto) 0.01 K/uL (0.00-0.20); Basophils % (auto) 0.1 %; Eosinophils # (auto) 0.11 K/uL (0.00-0.50); Eosinophils % (auto) 1.6 %; Immature Granulocytes % (auto) 1.5 %; Lymphocytes # (auto) 1.03 K/uL (1.20-3.40); Lymphocytes % (auto) 15.3 %; Monocytes # (auto) 0.49 K/uL (0.11-0.59); Monocytes % (auto) 7.3 %; Neutrophils # (auto) 5.01 K/uL (1.40-6.50); Neutrophils % (auto) 74.2 %; Polychromasia 1+; Reticulocyte % 2.6 % (0.5-2.0); Reticulocytes # 0.07 10^6/uL (0.02-0.10); Tear Drop Cells 1+
[2023-07-08] MEDS: DOCUSATE SODIUM 100 MG CAP PO SCH ×2 (08:44→20:51)
[2023-07-08] MEDS ORDERED: SODIUM CHLORIDE 0.9% 250 ML IV PRN (11:42)
--- NOTE | 2023-07-08 12:10 | Hospitalist Progress Note ---
Date of Service July 08, 2023 Assessment & Plan (1) Acute on chronic respiratory failure with hypoxia: (2) Interstitial lung disease: (3) Pulmonary HTN: (4) Chronic right-sided HF (heart failure): Plan: Patient presenting from home with reports of worsening shortness of breath and hypoxia. Recently admitted for acute on chronic hypoxic respiratory failure due to CHF and/or pneumonia in the setting of underlying interstitial lung disease. Patient discharged on increased O2 requirement --4 L at rest and 6 L with activity. Patient now requiring 6 L of oxygen with rest. PFTs from 05/2023 showed a significant worsening of lung function. CT chest without contrast 06/23/2023 showed progression of interstitial and fibrotic lung disease. Chest x-ray on admission personally reviewed; increasing bilateral infiltrate. Currently afebrile, no leukocytosis, normal procalcitonin Blood culture no growth till date Was started on cefepime and Vanco for possible pneumonia. Vancomycin DC'd as MRSA is negative. Continue on cefepime. Continue oon IV Lasix 40 mg twice daily for possible pulmonary edema. (5) Paroxysmal atrial fibrillation: Plan: Rhythm controlled on sotalol EKG personally reviewed from admission; normal sinus rhythm. QTc of 464 Not anticoagulated due to history of chronic anemia and bleeding issues (6) Hemolytic anemia: Plan: Follows with heme-onc, currently on prednisone 10 mg daily Hemoglobin slightly lower to 8.1 today. LDH, haptoglobin and reticulocyte leukocyte count obtained as per recommendation by her outpatient museum exhibit designer (Dr. Marion).LDH within normal limits. Reticulocyte count of 2.6. Recommended 1 unit of packed RBC transfusion. (7) Pacemaker: (8) Tachy-lakeisha syndrome: Plan: No acute issue Continue to monitor on telemetry. DVT PROPHYLAXIS SQ Lovenox Time spent evaluating patient, direct bedside care, chart review, placing orders, interpretation of diagnostic studies, discussion with consultants, patient, and family members, as well as other required patient management malorie tang is 60 minutes. Please note the above document was generated using voice recognition software. It may contain grammatical, syntax or spelling errors. Any formal questions or concerns about the content, text or information contained within the body of this dictation should be directly addressed to the provider for clarification Admission and Anticipated Discharge Date Admission Date: July 06, 2023 Subjective Patient seen and examined at bedside. She comfortably sitting up on the bed; not in distress. She is requiring 6 L of oxygen. Denies any increasing shortness of breath. Review of Systems Review of Systems: All systems reviewed & are unremarkable except as noted in Subjective Physical Exam Physical Exam: Constitutional: Awake, alert orient x3; appears to be in mild to moderate respiratory distress. Respiratory: Bilateral crackles heard at bases Cardiovascular: RRR, no murmur, no edema Vessels: no JVD or carotid bruit Chest: normal inspection of chest Abdomen: normal bowel sounds, soft, nontender, no hepatosplenomegaly Musculoskeletal: no cyanosis or clubbing, extremities motor strength 5/5. Wound present in dorsal aspect of left foot; healing well. Also wound on hand healing as well. Skin: no rashes, warm and dry normal turgor Neurologic: PERRL, EOMI, accommodation nl, no face palsy, no dysarthria CN's II- XI intact bilaterally and moves all extremities Psychiatric: A+Ox3, euthymic affect Results & Data Results & Data Vital Signs (Past 12 Hours) Vital Signs Temp Pulse Pulse Resp BP BP Pulse Ox 07/08/23 10:26 36.8 C 67 19 139/75 90 07/08/23 09:00 65 07/08/23 09:00 07/08/23 07:26 36.4 C L 66 19 136/79 92 07/08/23 06:00 90 07/08/23 04:00 36.4 C L 66 20 115/73 90 O2 Del Method O2 Flow Rate 07/08/23 10:26 Room Air 07/08/23 09:00 07/08/23 09:00 Nasal Cannula 6 07/08/23 07:26 Nasal Cannula 6.5 07/08/23 06:00 Nasal Cannula 6 07/08/23 04:00 Nasal Cannula, High Flow Nasal Cannula 7 Laboratory Results Laboratory Results WBC 6.75 K/ul (4.8-10.8) 07/08/23 07:08 RBC 2.86 M/uL (4.20-5.40) L 07/08/23 07:08 Hgb 8.1 g/dl (12.0-16.0) L 07/08/23 07:08 Hct 26.4 % (37.0-47.0) L 07/08/23 07:08 MCV 92.3 fL (80.0-100.0) 07/08/23 07:08 MCH 28.3 pg (25.0-34.0) 07/08/23 07:08 MCHC 30.7 g/dL (32.0-36.0) L 07/08/23 07:08 RDW Std Deviation 70.0 fL (36.4-46.3) H 07/08/23 07:08 RDW Coeff of Patrica 21.0 % (11.5-14.5) H 07/08/23 07:08 Plt Count 136 K/uL (130-400) 07/08/23 07:08 MPV 10.7 fL (9.4-12.4) 07/08/23 07:08 Immature Gran % (Auto) 1.5 % 07/08/23 07:08 Neut % (Auto) 74.2 % 07/08/23 07:08 Lymph % (Auto) 15.3 % 07/08/23 07:08 [place] % (Auto) 7.3 % 07/08/23 07:08 Eos % (Auto) 1.6 % 07/08/23 07:08 Baso % (Auto) 0.1 % 07/08/23 07:08 Reticulocyte % (Auto) 2.6 % (0.5-2.0) H 07/08/23 07:08 Neut # (Auto) 5.01 K/uL (1.40-6.50) 07/08/23 07:08 Lymph # (Auto) 1.03 K/uL (1.20-3.40) L 07/08/23 07:08 [place] # (Auto) 0.49 K/uL (0.11-0.59) 07/08/23 07:08 Eos # (Auto) 0.11 K/uL (0.00-0.50) 07/08/23 07:08 Baso # (Auto) 0.01 K/uL (0.00-0.20) 07/08/23 07:08 Reticulocyte # 0.07 10^6/uL (0.02-0.10) 07/08/23 07:08 Immature Gran # (Auto) 0.10 K/uL (0.01-0.20) 07/08/23 07:08 Absolute Nucleated RBC 0.03 K/uL (0.00-0.12) 07/08/23 07:08 Nucleated RBC % (auto) 0.4 % 07/08/23 07:08 Polychromasia 1+ 07/08/23 07:08 Anisocytosis Present 07/06/23 10:49 Tear Drop Cells 1+ 07/08/23 07:08 PT 10.9 Seconds (9.0-12.0) 07/06/23 10:49 INR 1.0 (0.9-1.1) 07/06/23 10:49 Sodium 135 mmol/L (136-145) L 07/08/23 07:08 Potassium 3.7 mmol/L (3.5-5.1) 07/08/23 07:08 Chloride 90 mmol/L (98-107) L 07/08/23 07:08 Carbon Dioxide 41 mmol/L (21-32) H* 07/08/23 07:08 Anion Gap 4 (3-11) 07/08/23 07:08 BUN 28 mg/dl (6-23) H 07/08/23 07:08 Creatinine 0.97 mg/dl (0.6-1.2) 07/08/23 07:08 Est Cr Clr Drug Dosing 67.6 ml/min 07/08/23 07:08 Est GFR ( Amer) 69.1 ml/min 07/08/23 07:08 Est GFR (Non-Af Amer) 59.6 ml/min 07/08/23 07:08 BUN/Creatinine Ratio 28.9 (10-20) H 07/08/23 07:08 Glucose 114 mg/dl (70-99(Fasting)) H 07/08/23 07:08 Calcium 9.4 mg/dl (8.6-10.3) 07/08/23 07:08 Magnesium 1.7 mg/dl (1.7-2.4) 07/06/23 10:49 Total Bilirubin 0.7 mg/dl (0.2-1.0) 07/08/23 07:08 AST 13 U/L (13-39) 07/08/23 07:08 ALT 10 U/L (7-52) 07/08/23 07:08 Alkaline Phosphatase 69 U/L (34-104) 07/08/23 07:08 Lactate Dehydrogenase 208 U/L (86-244) 07/08/23 07:08 Troponin I High Sens 7.2 pg/ml (0-14) 07/06/23 10:49 B-Natriuretic Peptide 257 pg/ml (0-100) H 07/06/23 10:49 Total Protein 7.3 gm/dl (6.0-8.3) 07/08/23 07:08 Albumin 3.7 gm/dl (3.4-5.0) 07/08/23 07:08 Globulin 3.6 gm/dl (2.5-4.0) 07/08/23 07:08 Albumin/Globulin Ratio 1.0 (0.9-2) 07/08/23 07:08 Procalcitonin 0.05 ng/ml (0-0.5) 07/06/23 12:45 TSH 1.688 uIu/ml (0.300-4.500) 07/06/23 10:49 Nasal Screen MRSA (PCR) Negative (Negative) 07/06/23 19:50 Adenovirus (PCR) Not Detected (NotDetected) 07/06/23 11:28 B. pertussis DNA (PCR) Not Detected (NotDetected) 07/06/23 11:28 B.parapertussis DNA PCR Not Detected (NotDetected) 07/06/23 11:28 C. pneumoniae DNA (PCR) Not Detected (NotDetected) 07/06/23 11:28 Coronavirus OC43 (PCR) Not Detected (NotDetected) 07/06/23 11:28 Coronavirus HKU1 (PCR) Not Detected (NotDetected) 07/06/23 11:28 Coronavirus 229E (PCR) Not Detected (NotDetected) 07/06/23 11:28 SARS-CoV-2 (PCR) Not Detected (NotDetected) 07/06/23 11:28 Coronavirus NL63 (PCR) Not Detected (NotDetected) 07/06/23 11:28 Human Metapneumovir PCR Not Detected (NotDetected) 07/06/23 11:28 Influenza Type A (PCR) Not Detected (NotDetected) 07/06/23 11:28 Influenza Type B (PCR) Not Detected (NotDetected) 07/06/23 11:28 M. pneumoniae (PCR) Not Detected (NotDetected) 07/06/23 11:28 Parainfluenza 1 (PCR) Not Detected (NotDetected) 07/06/23 11:28 Parainfluenza 2 (PCR) Not Detected (NotDetected) 07/06/23 11:28 Parainfluenza 3 (PCR) Not Detected (NotDetected) 07/06/23 11:28 Parainfluenza 4 (PCR) Not Detected (NotDetected) 07/06/23 11:28 RSV (PCR) Not Detected (NotDetected) 07/06/23 11:28 Entero/Rhino (PCR) Not Detected (NotDetected) 07/06/23 11:28 Crossmatch See Detail 07/08/23 11:53 Impressions Chest X-Ray 07/06/23 10:40 XR chest 1V portable CLINICAL HISTORY: sob, hypoxic TECHNIQUE: Single frontal radiograph of the chest was obtained. Comparison: Comparison is made to chest radiograph 06/20/2023 FINDINGS: Dual lead pacemaker is seen. The cardiomediastinal silhouette is stable. Multifocal airspace opacities are seen. No evidence of pleural effusion or pneumothorax. IMPRESSION: Interval worsening of multifocal airspace disease compatible with pneumonia and/or pulmonary edema. ACT 112: Negative or not required by law. Electronically signed by: Lito Carvalho M.D. 07/06/2023 11:02 AM
--- NOTE | 2023-07-08 14:29 | Pulmonology Progress Note ---
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 Acute on Chronic Respiratory Failure -Known ILD/Pulmonary HTN -recommend outpt right & Left Cardiac catheterization -continue steroids -using Cefepime -supplemental oxygen -send sputum culture -F/U with [facility] in [place] 2. ILD -currently no treatment with Pirfenidone(Omfev) -follows with pulmonary clinic at [facility] -continue oxygen -PFT'S in May 2023 -needs right & left heart catheterization 3. Pulmonary HTN -recent ECHO has shown only mild pulm HTN 4. Ovarian CA -Stage 1c -S/P chemotherapy: Taxol/Carboplatin 5. BERRY -intolerant of CPAP -may require other options of treatment with repeat polysomnography 6. Chronic Right HF -Diastolic Dysfunction-Grade 1 -diuresis and negative I's + O's Total pulmonary time spent examining and speaking to patient, reviewing all of her diagnostic studies and her past consultations and documentation, radiologic studies and discussing her pulmonary management with the pulmonary team, in cluding Judah Yan PA-C exclusive any invasive procedures or family conferences today was 37 minutes on 07/08/2023. Admission and Anticipated Discharge Date Admission Date: July 06, 2023 Subjective Patient feeling better today remaining on 6 L nasal cannula. She informs us that she does have a office visit with the pulmonary clinic in [place]. No new problems. Review of Systems Review of Systems: All systems reviewed & are unremarkable except as noted in Subjective Physical Exam Constitutional: WD/WN, vitals as above Eyes: PERRL, conjunctivae normal, anicteric sclerae ENMT: external ear and nose normal, oropharynx normal Neck: trachea midline, no thyromegaly Cardiovascular: RRR, no murmur, no edema Rate/Rhythm: regular rate and regular rhythm Chest (Breasts): Additional Comments: Breath sounds diminished to the bases with some fine crackles but good overall inspiratory and expiratory effort. Gastrointestinal (Abdomen): normal bowel sounds, soft, nontender, no hepatosplenomegaly Musculoskeletal: no cyanosis or clubbing, extremities motor strength 5/5 Skin: Frail thin but no rashes tears or abrasions Neurologic: patellar DTR's 2+ bilat, sensation intact and PERRL, EOMI, accommodation nl, no face palsy, no dysarthria Psychiatric: A+Ox3, euthymic affect Results & Data Results & Data Vital Signs (Past 12 Hours) Vital Signs Temp Pulse Pulse Resp BP BP Pulse Ox 07/08/23 10:26 36.8 C 67 19 139/75 90 07/08/23 09:00 65 07/08/23 09:00 07/08/23 07:26 36.4 C L 66 19 136/79 92 07/08/23 06:00 90 07/08/23 04:00 36.4 C L 66 20 115/73 90 O2 Del Method O2 Flow Rate 07/08/23 10:26 Room Air 07/08/23 09:00 07/08/23 09:00 Nasal Cannula 6 07/08/23 07:26 Nasal Cannula 6.5 07/08/23 06:00 Nasal Cannula 6 07/08/23 04:00 Nasal Cannula, High Flow Nasal Cannula 7 Laboratory Results Laboratory Results WBC 6.75 K/ul (4.8-10.8) 07/08/23 07:08 RBC 2.86 M/uL (4.20-5.40) L 07/08/23 07:08 Hgb 8.1 g/dl (12.0-16.0) L 07/08/23 07:08 Hct 26.4 % (37.0-47.0) L 07/08/23 07:08 MCV 92.3 fL (80.0-100.0) 07/08/23 07:08 MCH 28.3 pg (25.0-34.0) 07/08/23 07:08 MCHC 30.7 g/dL (32.0-36.0) L 07/08/23 07:08 RDW Std Deviation 70.0 fL (36.4-46.3) H 07/08/23 07:08 RDW Coeff of Patrica 21.0 % (11.5-14.5) H 07/08/23 07:08 Plt Count 136 K/uL (130-400) 07/08/23 07:08 MPV 10.7 fL (9.4-12.4) 07/08/23 07:08 Immature Gran % (Auto) 1.5 % 07/08/23 07:08 Neut % (Auto) 74.2 % 07/08/23 07:08 Lymph % (Auto) 15.3 % 07/08/23 07:08 [place] % (Auto) 7.3 % 07/08/23 07:08 Eos % (Auto) 1.6 % 07/08/23 07:08 Baso % (Auto) 0.1 % 07/08/23 07:08 Reticulocyte % (Auto) 2.6 % (0.5-2.0) H 07/08/23 07:08 Neut # (Auto) 5.01 K/uL (1.40-6.50) 07/08/23 07:08 Lymph # (Auto) 1.03 K/uL (1.20-3.40) L 07/08/23 07:08 [place] # (Auto) 0.49 K/uL (0.11-0.59) 07/08/23 07:08 Eos # (Auto) 0.11 K/uL (0.00-0.50) 07/08/23 07:08 Baso # (Auto) 0.01 K/uL (0.00-0.20) 07/08/23 07:08 Reticulocyte # 0.07 10^6/uL (0.02-0.10) 07/08/23 07:08 Immature Gran # (Auto) 0.10 K/uL (0.01-0.20) 07/08/23 07:08 Absolute Nucleated RBC 0.03 K/uL (0.00-0.12) 07/08/23 07:08 Nucleated RBC % (auto) 0.4 % 07/08/23 07:08 Polychromasia 1+ 07/08/23 07:08 Anisocytosis Present 07/06/23 10:49 Tear Drop Cells 1+ 07/08/23 07:08 PT 10.9 Seconds (9.0-12.0) 07/06/23 10:49 INR 1.0 (0.9-1.1) 07/06/23 10:49 Sodium 135 mmol/L (136-145) L 07/08/23 07:08 Potassium 3.7 mmol/L (3.5-5.1) 07/08/23 07:08 Chloride 90 mmol/L (98-107) L 07/08/23 07:08 Carbon Dioxide 41 mmol/L (21-32) H* 07/08/23 07:08 Anion Gap 4 (3-11) 07/08/23 07:08 BUN 28 mg/dl (6-23) H 07/08/23 07:08 Creatinine 0.97 mg/dl (0.6-1.2) 07/08/23 07:08 Est Cr Clr Drug Dosing 67.6 ml/min 07/08/23 07:08 Est GFR ( Amer) 69.1 ml/min 07/08/23 07:08 Est GFR (Non-Af Amer) 59.6 ml/min 07/08/23 07:08 BUN/Creatinine Ratio 28.9 (10-20) H 07/08/23 07:08 Glucose 114 mg/dl (70-99(Fasting)) H 07/08/23 07:08 Calcium 9.4 mg/dl (8.6-10.3) 07/08/23 07:08 Magnesium 1.7 mg/dl (1.7-2.4) 07/06/23 10:49 Total Bilirubin 0.7 mg/dl (0.2-1.0) 07/08/23 07:08 AST 13 U/L (13-39) 07/08/23 07:08 ALT 10 U/L (7-52) 07/08/23 07:08 Alkaline Phosphatase 69 U/L (34-104) 07/08/23 07:08 Lactate Dehydrogenase 208 U/L (86-244) 07/08/23 07:08 Troponin I High Sens 7.2 pg/ml (0-14) 07/06/23 10:49 B-Natriuretic Peptide 257 pg/ml (0-100) H 07/06/23 10:49 Total Protein 7.3 gm/dl (6.0-8.3) 07/08/23 07:08 Albumin 3.7 gm/dl (3.4-5.0) 07/08/23 07:08 Globulin 3.6 gm/dl (2.5-4.0) 07/08/23 07:08 Albumin/Globulin Ratio 1.0 (0.9-2) 07/08/23 07:08 Procalcitonin 0.05 ng/ml (0-0.5) 07/06/23 12:45 TSH 1.688 uIu/ml (0.300-4.500) 07/06/23 10:49 Nasal Screen MRSA (PCR) Negative (Negative) 07/06/23 19:50 Adenovirus (PCR) Not Detected (NotDetected) 07/06/23 11:28 B. pertussis DNA (PCR) Not Detected (NotDetected) 07/06/23 11:28 B.parapertussis DNA PCR Not Detected (NotDetected) 07/06/23 11:28 C. pneumoniae DNA (PCR) Not Detected (NotDetected) 07/06/23 11:28 Coronavirus OC43 (PCR) Not Detected (NotDetected) 07/06/23 11:28 Coronavirus HKU1 (PCR) Not Detected (NotDetected) 07/06/23 11:28 Coronavirus 229E (PCR) Not Detected (NotDetected) 07/06/23 11:28 SARS-CoV-2 (PCR) Not Detected (NotDetected) 07/06/23 11:28 Coronavirus NL63 (PCR) Not Detected (NotDetected) 07/06/23 11:28 Human Metapneumovir PCR Not Detected (NotDetected) 07/06/23 11:28 Influenza Type A (PCR) Not Detected (NotDetected) 07/06/23 11:28 Influenza Type B (PCR) Not Detected (NotDetected) 07/06/23 11:28 M. pneumoniae (PCR) Not Detected (NotDetected) 07/06/23 11:28 Parainfluenza 1 (PCR) Not Detected (NotDetected) 07/06/23 11:28 Parainfluenza 2 (PCR) Not Detected (NotDetected) 07/06/23 11:28 Parainfluenza 3 (PCR) Not Detected (NotDetected) 07/06/23 11:28 Parainfluenza 4 (PCR) Not Detected (NotDetected) 07/06/23 11:28 RSV (PCR) Not Detected (NotDetected) 07/06/23 11:28 Entero/Rhino (PCR) Not Detected (NotDetected) 07/06/23 11:28 Blood Type A Positive 07/08/23 11:53 Antibody Screen NEGATIVE 07/08/23 11:53 Crossmatch See Detail 07/08/23 11:53 Impressions Chest X-Ray 07/06/23 10:40 XR chest 1V portable CLINICAL HISTORY: sob, hypoxic TECHNIQUE: Single frontal radiograph of the chest was obtained. Comparison: Comparison is made to chest radiograph 06/20/2023 FINDINGS: Dual lead pacemaker is seen. The cardiomediastinal silhouette is stable. Multifocal airspace opacities are seen. No evidence of pleural effusion or pneumothorax. IMPRESSION: Interval worsening of multifocal airspace disease compatible with pneumonia and/or pulmonary edema. ACT 112: Negative or not required by law. Electronically signed by: Lito Carvalho M.D. 07/06/2023 11:02 AM Medications Administered Home Medications Medication Instructions Recorded Confirmed Last Taken lorazepam 0.5 mg tablet 0.5 mg PO Q8H PRN Anxiety 10/18/18 07/06/23 05/19/23 sertraline 100 mg tablet (Zoloft) 100 mg PO QAM 10/18/18 07/06/23 07/06/23 cyclobenzaprine 5 mg tablet 5 mg PO BID PRN Muscle Spasm 08/25/19 07/06/23 01/16/23 10:00 omeprazole 20 mg capsule,delayed 20 mg PO BID 04/12/20 07/06/23 07/06/23 release folic acid 1 mg tablet 1 mg PO QAM 05/08/20 07/06/23 07/06/23 sotalol 80 mg tablet 80 mg PO BID 10/01/20 07/06/23 07/06/23 cholecalciferol (vitamin D3) 50 2,000 unit PO QAM #90 tabs 04/09/21 07/06/23 07/06/23 mcg (2,000 unit) tablet loratadine 10 mg tablet (Claritin) 10 mg PO QAM 09/18/22 07/06/23 07/06/23 Portable Oxygen #1 ea 01/23/23 07/06/23 Unknown acetaminophen 325 mg tablet 325 mg PO DIRECTED PRN 02/27/23 07/06/23 Unknown (Tylenol) PAIN/FEVER albuterol sulfate 90 mcg/actuation 2 puff inhalation Q4H PRN Wheezing 02/27/23 07/06/23 Unknown aerosol inhaler docusate sodium 100 mg capsule 100 mg PO BID 02/27/23 07/06/23 07/06/23 (Stool Softener) fluoride (sodium) 1.1 % dental 1 applic dental BID 02/27/23 07/06/23 07/06/23 cream (SF 5000 Plus) hydroxyzine HCl 25 mg tablet 25 mg PO HS PRN Itching 02/27/23 07/06/23 Unknown gabapentin 300 mg capsule 300 mg PO TID 06/17/23 07/06/23 07/06/23 prednisone 10 mg tablet 10 mg PO QAM 06/17/23 07/06/23 07/06/23 amlodipine 5 mg tablet (Norvasc) 5 mg PO QAM #30 tabs 06/22/23 07/06/23 07/06/23 magnesium chloride 64 mg 64 mg PO BID #30 tabs 06/22/23 07/06/23 07/06/23 (magnesium chloride) tablet,delayed release (Mag 64) furosemide 40 mg tablet (Lasix) 40 mg PO QAM 07/06/23 07/06/23 07/06/23 Active Medications Generic Name Dose Route Start Last Admin Trade Name Freq PRN Reason Stop Dose Admin Acetaminophen 650 mg 07/06/23 14:17 07/08/23 01:13 Acetaminophen 325 Mg Tab PO 08/05/23 14:16 650 mg Q4H PRN Administration Pain or Fever Amlodipine Besylate 5 mg 07/07/23 09:00 07/08/23 08:08 Amlodipine Besylate 5 Mg Tab PO 08/06/23 08:59 5 mg QAM ADINA Administration Docusate Sodium 100 mg 07/06/23 21:00 07/08/23 08:44 Docusate Sodium 100 Mg Cap PO 08/05/23 20:59 Not Given BID ADINA Enoxaparin Sodium 40 mg 07/06/23 15:00 07/07/23 15:58 Enoxaparin Inj 40 Mg/0.4 Ml Syr SQ 08/05/23 14:59 40 mg Q24H ADINA Administration Folic Acid 1 mg 07/07/23 09:00 07/08/23 08:07 Folic Acid 1 Mg Tab PO 08/06/23 08:59 1 mg QAM ADINA Administration Furosemide 40 mg 07/07/23 09:00 07/08/23 08:13 Furosemide 40 Mg/4 Ml Vial IV 08/06/23 08:59 40 mg BID ADINA Administration Gabapentin 300 mg 07/06/23 21:00 07/08/23 13:54 Gabapentin 300 Mg Cap PO 08/05/23 20:59 300 mg TID ADINA Administration Cefepime HCl 2,000 mg/ Syringe 20 mls @ 5 mls/min 07/06/23 20:00 07/08/23 11:36 IV 07/13/23 19:59 5 mls/min Q8H ADINA Administration Protocol Loratadine 10 mg 07/07/23 09:00 07/08/23 08:08 Loratadine 10 Mg Tab PO 08/06/23 08:59 10 mg QAM ADINA Administration Lorazepam 0.5 mg 07/06/23 14:23 07/08/23 08:06 Lorazepam 0.5 Mg Tab PO 08/05/23 14:22 0.5 mg Q8H PRN Administration Anxiety Magnesium Chloride 64 mg 07/06/23 21:00 07/08/23 08:07 Magnesium Chloride W/Calcium 64mg Delayed Rel Tab PO 08/05/23 20:59 64 mg BID ADINA Administration Pantoprazole Sodium 40 mg 07/06/23 21:00 07/08/23 08:07 Pantoprazole 40 Mg Tab PO 08/05/23 20:59 40 mg BID ADINA Administration Protocol Prednisone 10 mg 07/07/23 09:00 07/08/23 08:08 Prednisone 10 Mg Tablet PO 08/06/23 08:59 10 mg QAM ADINA Administration Sertraline HCl 100 mg 07/07/23 09:00 07/08/23 08:08 Sertraline Hcl 100 Mg Tablet PO 08/06/23 08:59 100 mg QAM ADINA Administration Sotalol HCl 80 mg 07/06/23 21:00 07/08/23 08:07 Sotalol Hcl 80 Mg Tab PO 08/05/23 20:59 80 mg BID ADINA Administration Vitamin D 2,000 units 07/07/23 09:00 07/08/23 08:08 Cholecalciferol 1,000 Units 25 Mcg Tab PO 08/06/23 08:59 2,000 units QAM ADINA Administration PG Care Time/CCT Total # of Minutes Spent Total Time Spent with Patient: Total time spent is greater than 50% in coordination of care (as documented) at patient's floor/unit and/or counseling patient: Coding Level of Care Code 65831 SUB INP/OBS CARE 2/35MIN Diagnoses Pacemaker Z95.0 Hemolytic anemia D58.9 Chronic right-sided HF (heart failure) I50.812 Pulmonary HTN I27.20 Acute on chronic respiratory failure with hypoxia J96.21 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
[2023-07-08] MEDS: ENOXAPARIN INJ 40 MG/0.4 ML SYR SQ SCH (15:11)
[2023-07-09] MEDS: CEFEPIME 2,000 MG in SYRINGE 0 ML IV SCH ×3 (03:22→20:04)
[2023-07-09 06:37] LABS: Hemoglobin 8.5 g/dl (12.0-16.0); Mean Corpuscular Hemoglobin 27.4 pg (25.0-34.0); Mean Corpuscular Hgb Conc 30.4 g/dL (32.0-36.0); Mean Corpuscular Volume 90.3 fL (80.0-100.0); Mean Platelet Volume 11.1 fL (9.4-12.4); Nucleated RBC # (auto) 0.02 K/uL (0.00-0.12); Nucleated RBC % (auto) 0.3 %; Platelet Count 123 K/uL (130-400); RDW Coefficient of Variation 20.9 % (11.5-14.5); RDW Standard Deviation 68.9 fL (36.4-46.3)
[2023-07-09 07:00] LABS: BUN Creatinine Ratio 32.2 (10-20); Calcium 9.4 mg/dl (8.6-10.3); Creatinine Clr Calc Pharmacy 72.7 ml/min; Est GFR (African American) 75.6 ml/min; Est GFR (Non-African American) 65.2 ml/min; Potassium 3.6 mmol/L (3.5-5.1)
[2023-07-09 07:02] LABS: Anisocytosis Present; Basophils # (auto) 0.02 K/uL (0.00-0.20); Basophils % (auto) 0.3 %; Eosinophils % (auto) 1.5 %; Immature Granulocytes # (auto) 0.11 K/uL (0.01-0.20); Immature Granulocytes % (auto) 1.6 %; Lymphocytes # (auto) 1.11 K/uL (1.20-3.40); Lymphocytes % (auto) 16.6 %; Monocytes # (auto) 0.49 K/uL (0.11-0.59); Monocytes % (auto) 7.3 %; Neutrophils # (auto) 4.87 K/uL (1.40-6.50); Neutrophils % (auto) 72.7 %; Polychromasia 1+; Stomatocytes 2+
[2023-07-09] MEDS: FOLIC ACID 1 MG TAB PO SCH (08:03)
[2023-07-09] MEDS: amLODIPine BESYLATE 5 MG TAB PO SCH (08:03)
[2023-07-09] MEDS: CHOLECALCIFEROL 1,000 UNITS 25 MCG TAB PO SCH (08:03)
[2023-07-09] MEDS: MAGNESIUM CHLORIDE W/CALCIUM 64MG DELAYED REL TAB PO SCH ×2 (08:03→20:06)
[2023-07-09] MEDS: LORazepam 0.5 MG TAB PO PRN ×2 (08:03→20:04)
[2023-07-09] MEDS: predniSONE 10 MG TABLET PO SCH (08:03)
[2023-07-09] MEDS: SOTALOL HCL 80 MG TAB PO SCH ×2 (08:04→20:07)
[2023-07-09] MEDS: PANTOprazole 40 MG TAB PO SCH ×2 (08:04→20:05)
[2023-07-09] MEDS: SERTRALINE HCL 100 MG TABLET PO SCH (08:05)
[2023-07-09] MEDS: FUROSEMIDE 40 MG/4 ML VIAL IV SCH ×2 (08:05→20:04)
[2023-07-09] MEDS: GABAPENTIN 300 MG CAP PO SCH ×3 (08:05→20:06)
[2023-07-09] MEDS: LORATADINE 10 MG TAB PO SCH (08:05)
[2023-07-09] MEDS: ACETAMINOPHEN 325 MG TAB PO PRN (09:07)
[2023-07-09] MEDS: DOCUSATE SODIUM 100 MG CAP PO SCH ×2 (09:07→20:22)
[2023-07-09] MEDS ORDERED: IBUPROFEN 600 MG TAB PO STA (10:43)
--- NOTE | 2023-07-09 14:02 | Hospitalist Progress Note ---
Date of Service July 09, 2023 Assessment & Plan (1) Acute on chronic respiratory failure with hypoxia: (2) Interstitial lung disease: (3) Pulmonary HTN: (4) Chronic right-sided HF (heart failure): Plan: Patient presenting from home with reports of worsening shortness of breath and hypoxia. Recently admitted for acute on chronic hypoxic respiratory failure due to CHF and/or pneumonia in the setting of underlying interstitial lung disease. Patient discharged on increased O2 requirement --4 L at rest and 6 L with activity. Patient now requiring 6 L of oxygen with rest. PFTs from 05/2023 showed a significant worsening of lung function. CT chest without contrast 06/23/2023 showed progression of interstitial and fibrotic lung disease. Chest x-ray on admission personally reviewed; increasing bilateral infiltrate. Currently afebrile, no leukocytosis, normal procalcitonin Blood culture no growth till date Was started on cefepime and Vanco for possible pneumonia. Vancomycin DC'd as MRSA is negative. Continue on cefepime. Continue oon IV Lasix 40 mg twice daily for possible pulmonary edema. We will repeat follow-up x-ray for pulmonary congestion. Strict input and output monitoring. (5) Paroxysmal atrial fibrillation: Plan: Rhythm controlled on sotalol EKG personally reviewed from admission; normal sinus rhythm. QTc of 464 Not anticoagulated due to history of chronic anemia and bleeding issues (6) Hemolytic anemia: Plan: Follows with heme-onc, currently on prednisone 10 mg daily Hemoglobin slightly lower to 8.1 today. LDH, haptoglobin and reticulocyte leukocyte count obtained as per recommendation by her outpatient production honing machine operator (Dr. Marion).LDH within normal limits. Reticulocyte count of 2.6. Haptoglobin of 136. Recommended 1 unit of packed RBC transfusion which was transfused on 07/08/2023. (7) Pacemaker: (8) Tachy-lakeisha syndrome: Plan: No acute issue Continue to monitor on telemetry. DVT PROPHYLAXIS SQ Lovenox Time spent evaluating patient, direct bedside care, chart review, placing orders , interpretation of diagnostic studies, discussion with consultants, patient, and family members, as well as other required patient management activities is 60 minutes. Please note the above document was generated using voice recognition software. It may contain grammatical, syntax or spelling errors. Any formal questions or concerns about the content, text or information contained within the body of this dictation should be directly addressed to the provider for clarification Admission and Anticipated Discharge Date Admission Date: July 06, 2023 Subjective Patient seen and examined at bedside. She is sitting up on the bed; not in distress. Reports that her oxygen saturation drops down on exertion. Review of Systems Review of Systems: All systems reviewed & are unremarkable except as noted in Subjective Physical Exam Physical Exam: Constitutional: Awake, alert orient x3; appears to be in mild to moderate respiratory distress. Respiratory: Bilateral crackles heard at bases Cardiovascular: RRR, no murmur, no edema Vessels: no JVD or carotid bruit Chest: normal inspection of chest Abdomen: normal bowel sounds, soft, nontender, no hepatosplenomegaly Musculoskeletal: no cyanosis or clubbing, extremities motor strength 5/5. Wound present in dorsal aspect of left foot; healing well. Also wound on hand healing as well. Skin: no rashes, warm and dry normal turgor Neurologic: PERRL, EOMI, accommodation nl, no face palsy, no dysarthria CN's II- XI intact bilaterally and moves all extremities Psychiatric: A+Ox3, euthymic affect Results & Data Results & Data Vital Signs (Past 12 Hours) Vital Signs Temp Pulse Resp BP Pulse Ox O2 Del Method O2 Flow Rate 07/09/23 11:34 36.7 C 69 18 133/60 90 High Flow Nasal Cannula 5 07/09/23 10:55 87 L 07/09/23 09:00 Nasal Cannula 5 07/09/23 07:53 36.6 C 69 22 150/73 H 91 High Flow Nasal Cannula 5 07/09/23 03:00 36.5 C 65 21 124/62 91 Nasal Cannula Laboratory Results Laboratory Results WBC 6.70 K/ul (4.8-10.8) 07/09/23 05:48 RBC 3.10 M/uL (4.20-5.40) L 07/09/23 05:48 Hgb 8.5 g/dl (12.0-16.0) L 07/09/23 05:48 Hct 28.0 % (37.0-47.0) L 07/09/23 05:48 MCV 90.3 fL (80.0-100.0) 07/09/23 05:48 MCH 27.4 pg (25.0-34.0) 07/09/23 05:48 MCHC 30.4 g/dL (32.0-36.0) L 07/09/23 05:48 RDW Std Deviation 68.9 fL (36.4-46.3) H 07/09/23 05:48 RDW Coeff of Patrica 20.9 % (11.5-14.5) H 07/09/23 05:48 Plt Count 123 K/uL (130-400) L 07/09/23 05:48 MPV 11.1 fL (9.4-12.4) 07/09/23 05:48 Immature Gran % (Auto) 1.6 % 07/09/23 05:48 Neut % (Auto) 72.7 % 07/09/23 05:48 Lymph % (Auto) 16.6 % 07/09/23 05:48 [place] % (Auto) 7.3 % 07/09/23 05:48 Eos % (Auto) 1.5 % 07/09/23 05:48 Baso % (Auto) 0.3 % 07/09/23 05:48 Reticulocyte % (Auto) 2.6 % (0.5-2.0) H 07/08/23 07:08 Neut # (Auto) 4.87 K/uL (1.40-6.50) 07/09/23 05:48 Lymph # (Auto) 1.11 K/uL (1.20-3.40) L 07/09/23 05:48 [place] # (Auto) 0.49 K/uL (0.11-0.59) 07/09/23 05:48 Eos # (Auto) 0.10 K/uL (0.00-0.50) 07/09/23 05:48 Baso # (Auto) 0.02 K/uL (0.00-0.20) 07/09/23 05:48 Reticulocyte # 0.07 10^6/uL (0.02-0.10) 07/08/23 07:08 Immature Gran # (Auto) 0.11 K/uL (0.01-0.20) 07/09/23 05:48 Absolute Nucleated RBC 0.02 K/uL (0.00-0.12) 07/09/23 05:48 Nucleated RBC % (auto) 0.3 % 07/09/23 05:48 Polychromasia 1+ 07/09/23 05:48 Anisocytosis Present 07/09/23 05:48 Tear Drop Cells 1+ 07/08/23 07:08 Stomatocytes 2+ 07/09/23 05:48 Haptoglobin 136 mg/dL (43-212) 07/08/23 07:08 PT 10.9 Seconds (9.0-12.0) 07/06/23 10:49 INR 1.0 (0.9-1.1) 07/06/23 10:49 Sodium 135 mmol/L (136-145) L 07/09/23 05:48 Potassium 3.6 mmol/L (3.5-5.1) 07/09/23 05:48 Chloride 91 mmol/L (98-107) L 07/09/23 05:48 Carbon Dioxide 40 mmol/L (21-32) H 07/09/23 05:48 Anion Gap 4 (3-11) 07/09/23 05:48 BUN 29 mg/dl (6-23) H 07/09/23 05:48 Creatinine 0.90 mg/dl (0.6-1.2) 07/09/23 05:48 Est Cr Clr Drug Dosing 72.7 ml/min 07/09/23 05:48 Est GFR ( Amer) 75.6 ml/min 07/09/23 05:48 Est GFR (Non-Af Amer) 65.2 ml/min 07/09/23 05:48 BUN/Creatinine Ratio 32.2 (10-20) H 07/09/23 05:48 Glucose 114 mg/dl (70-99(Fasting)) H 07/09/23 05:48 Calcium 9.4 mg/dl (8.6-10.3) 07/09/23 05:48 Magnesium 1.7 mg/dl (1.7-2.4) 07/06/23 10:49 Total Bilirubin 0.7 mg/dl (0.2-1.0) 07/08/23 07:08 AST 13 U/L (13-39) 07/08/23 07:08 ALT 10 U/L (7-52) 07/08/23 07:08 Alkaline Phosphatase 69 U/L (34-104) 07/08/23 07:08 Lactate Dehydrogenase 208 U/L (86-244) 07/08/23 07:08 Troponin I High Sens 7.2 pg/ml (0-14) 07/06/23 10:49 B-Natriuretic Peptide 257 pg/ml (0-100) H 07/06/23 10:49 Total Protein 7.3 gm/dl (6.0-8.3) 07/08/23 07:08 Albumin 3.7 gm/dl (3.4-5.0) 07/08/23 07:08 Globulin 3.6 gm/dl (2.5-4.0) 07/08/23 07:08 Albumin/Globulin Ratio 1.0 (0.9-2) 07/08/23 07:08 Procalcitonin 0.05 ng/ml (0-0.5) 07/06/23 12:45 TSH 1.688 uIu/ml (0.300-4.500) 07/06/23 10:49 Nasal Screen MRSA (PCR) Negative (Negative) 07/06/23 19:50 Adenovirus (PCR) Not Detected (NotDetected) 07/06/23 11:28 B. pertussis DNA (PCR) Not Detected (NotDetected) 07/06/23 11:28 B.parapertussis DNA PCR Not Detected (NotDetected) 07/06/23 11:28 C. pneumoniae DNA (PCR) Not Detected (NotDetected) 07/06/23 11:28 Coronavirus OC43 (PCR) Not Detected (NotDetected) 07/06/23 11:28 Coronavirus HKU1 (PCR) Not Detected (NotDetected) 07/06/23 11:28 Coronavirus 229E (PCR) Not Detected (NotDetected) 07/06/23 11:28 SARS-CoV-2 (PCR) Not Detected (NotDetected) 07/06/23 11:28 Coronavirus NL63 (PCR) Not Detected (NotDetected) 07/06/23 11:28 Human Metapneumovir PCR Not Detected (NotDetected) 07/06/23 11:28 Influenza Type A (PCR) Not Detected (NotDetected) 07/06/23 11:28 Influenza Type B (PCR) Not Detected (NotDetected) 07/06/23 11:28 M. pneumoniae (PCR) Not Detected (NotDetected) 07/06/23 11:28 Parainfluenza 1 (PCR) Not Detected (NotDetected) 07/06/23 11:28 Parainfluenza 2 (PCR) Not Detected (NotDetected) 07/06/23 11:28 Parainfluenza 3 (PCR) Not Detected (NotDetected) 07/06/23 11:28 Parainfluenza 4 (PCR) Not Detected (NotDetected) 07/06/23 11:28 RSV (PCR) Not Detected (NotDetected) 07/06/23 11:28 Entero/Rhino (PCR) Not Detected (NotDetected) 07/06/23 11:28 Blood Type A Positive 07/08/23 11:53 Antibody Screen NEGATIVE 07/08/23 11:53 Crossmatch See Detail 07/08/23 11:53 Impressions Chest X-Ray 07/06/23 10:40 XR chest 1V portable CLINICAL HISTORY: sob, hypoxic TECHNIQUE: Single frontal radiograph of the chest was obtained. Comparison: Comparison is made to chest radiograph 06/20/2023 FINDINGS: Dual lead pacemaker is seen. The cardiomediastinal silhouette is stable. Mu ltifocal airspace opacities are seen. No evidence of pleural effusion or pneumothorax. IMPRESSION: Interval worsening of multifocal airspace disease compatible with pneumonia and/or pulmonary edema. ACT 112: Negative or not required by law. Electronically signed by: Lito Carvalho M.D. 07/06/2023 11:02 AM
--- NOTE | 2023-07-09 14:38 | XRay Report ---
XR chest 1V portable CLINICAL HISTORY: Follow up on pulmonary congestion TECHNIQUE: Single frontal radiograph of the chest was obtained. Comparison: Comparison is made to chest radiograph 06/29/2023 FINDINGS: Dual lead pacemaker is seen. The cardiomediastinal silhouette is normal. Multifocal airspace opacitie s are seen. No evidence of pleural effusion or pneumothorax. IMPRESSION: Multifocal airspace opacities are again seen, stable to minimally improved from prior exam. ACT 112: Negative or not required by law. Electronically signed by: Lito Carvalho M.D. 07/09/2023 2:36 PM
[2023-07-09] MEDS: ENOXAPARIN INJ 40 MG/0.4 ML SYR SQ SCH (15:30)
[2023-07-09] MEDS: ALBUT/IPRATROP 3MG/0.5MG NEB 3 ML VIAL NEB SCH (19:07)
[2023-07-10] MEDS: CEFEPIME 2,000 MG in SYRINGE 0 ML IV SCH ×2 (04:44→11:42)
[2023-07-10 07:00] LABS: Basophils # (auto) 0.01 K/uL (0.00-0.20); Basophils % (auto) 0.1 %; Eosinophils % (auto) 1.3 %; Hematocrit (blood only) 28.2 % (37.0-47.0); Hemoglobin 8.7 g/dl (12.0-16.0); Immature Granulocytes # (auto) 0.13 K/uL (0.01-0.20); Immature Granulocytes % (auto) 1.6 %; Lymphocytes # (auto) 1.13 K/uL (1.20-3.40); Lymphocytes % (auto) 14.3 %; Mean Corpuscular Hemoglobin 27.4 pg (25.0-34.0); Mean Corpuscular Hgb Conc 30.9 g/dL (32.0-36.0); Mean Platelet Volume 11.3 fL (9.4-12.4); Monocytes # (auto) 0.59 K/uL (0.11-0.59); Monocytes % (auto) 7.5 %; Neutrophils # (auto) 5.93 K/uL (1.40-6.50); Neutrophils % (auto) 75.2 %; Nucleated RBC # (auto) 0.03 K/uL (0.00-0.12); Nucleated RBC % (auto) 0.4 %; Platelet Count 122 K/uL (130-400); RDW Standard Deviation 66.2 fL (36.4-46.3); Red Blood Count 3.17 M/uL (4.20-5.40); White Blood Count 7.89 K/ul (4.8-10.8)
[2023-07-10] MEDS: ALBUT/IPRATROP 3MG/0.5MG NEB 3 ML VIAL NEB SCH ×2 (07:10→10:58)
[2023-07-10 07:18] LABS: BUN Creatinine Ratio 33.3 (10-20); Calcium 9.5 mg/dl (8.6-10.3); Creatinine Clr Calc Pharmacy 68.1 ml/min; Est GFR (African American) 69.9 ml/min; Est GFR (Non-African American) 60.3 ml/min; Potassium 3.6 mmol/L (3.5-5.1)
[2023-07-10] MEDS: LORazepam 0.5 MG TAB PO PRN (08:24)
[2023-07-10] MEDS: SOTALOL HCL 80 MG TAB PO SCH (08:24)
[2023-07-10] MEDS: amLODIPine BESYLATE 5 MG TAB PO SCH (08:25)
[2023-07-10] MEDS: CHOLECALCIFEROL 1,000 UNITS 25 MCG TAB PO SCH (08:25)
[2023-07-10] MEDS: MAGNESIUM CHLORIDE W/CALCIUM 64MG DELAYED REL TAB PO SCH (08:25)
[2023-07-10] MEDS: PANTOprazole 40 MG TAB PO SCH (08:25)
[2023-07-10] MEDS: LORATADINE 10 MG TAB PO SCH (08:25)
[2023-07-10] MEDS: predniSONE 10 MG TABLET PO SCH (08:25)
[2023-07-10] MEDS: GABAPENTIN 300 MG CAP PO SCH (08:25)
[2023-07-10] MEDS: FOLIC ACID 1 MG TAB PO SCH (08:25)
[2023-07-10] MEDS: SERTRALINE HCL 100 MG TABLET PO SCH (08:26)
[2023-07-10] MEDS: FUROSEMIDE 40 MG/4 ML VIAL IV SCH (08:28)
[2023-07-10] MEDS: DOCUSATE SODIUM 100 MG CAP PO SCH (08:28)
--- NOTE | 2023-07-10 13:12 | Discharge Summary ---
Date of Service July 10, 2023 Admission HPI Per Admitting Provider 67 year old female with PMH chronic hypoxic respiratory failure on home O2, ILD, BERRY, ovarian cancer, paroxysmal atrial tachycardia, tachybradycardia syndrome s/p pacemaker, paroxysmal atrial fibrillation on sotalol, not anticoagulated due to anemia and bleeding issues, pulmonary hypertension, HTN, chronic diastolic CHF, and other problems listed below who presents to the ED for evaluation of shortness of breath and hypoxia. History obtained from the patient and review of outpatient PCP, pulmonary, cardiology records and recent inpatient records. Patient recently admitted to [facility] 06/17 through 06/22 for acute on chronic hypoxic respiratory failure felt to be due to pneumonia and/or volume overload. Patient discharged on Lasix. Patient is to follow with ILD specialist as an outpatient however has not had an appointment yet. There is also consideration for right and left heart cath. Patient notes increasing shortness of breath about one week ago. She states that her activity has been fairly limited recently due to shortness of breath. Home health nurse came to evaluate the patient 3 days ago and she was noted to have worsening hypoxia. She typically uses 4L with rest and 6L with activity and was requiring 6L at rest. Patient states her weights have been stable however she did take additional Lasix dose on 07/03 and 07/04. She feels like her shortness of breath was slightly improved with increased oxygen and after the additional Lasix. States that she feels like the worsening hypoxia was due to being rushed by the home health nurse. Patient denies cough and sputum production. No fever or chills. Today, she was at the wound care center and became short of breath when transferring. Patient was found to be profoundly hypoxic and was transferred to the ED for further evaluation. She de nies chest pain. Reports intermittent mild lightheadedness however no dizziness or syncopal event. No abdominal pain, nausea, vomiting, diarrhea. Denies urinary symptoms. In the ED, patient was hypoxic at 84% on 15 L, patient did slowly improve and is currently saturating well on 6 L of oxygen. CXR is suggestive of pneumonia and/or CHF. She was given Lasix 40 mg IV, cefepime, Vanco. Admission Exam Per Admitting Provider Constitutional: WD/WN, vitals as above no acute distress Eyes: PERRL, conjunctivae normal, anicteric sclerae ENMT: external ear and nose normal, oropharynx normal Respiratory: normal respiratory effort; no respiratory distress Auscultation: + diminished lung sounds and + crackles (BL bases) Cardiovascular: Rate/Rhythm: regular rate and regular rhythm Vessels: normal peripheral pulses Extremities: no edema Gastrointestinal (Abdomen): normal bowel sounds, soft, nontender, no hepatosplenomegaly B Musculoskeletal: no cyanosis or clubbing, extremities motor strength 5/5 Skin: no rashes, warm and dry Neurologic: PERRL, EOMI, accommodation nl, no face palsy, no dysarthria Psychiatric: A+Ox3, euthymic affect Principal Diagnosis Acute on chronic hypoxic respiratory failure Acute on chronic CHF Interstitial lung disease Discharge Exam Constitutional: Awake, alert orient x3; appears to be in mild to moderate respiratory distress. Respiratory: Bilateral crackles heard at bases Cardiovascular: RRR, no murmur, no edema Vessels: no JVD or carotid bruit Chest: normal inspection of chest Abdomen: normal bowel sounds, soft, nontender, no hepatosplenomegaly Musculoskeletal: no cyanosis or clubbing, extremities motor strength 5/5. Wound present in dorsal aspect of left foot; healing well. Also wound on hand healing as well. Skin: no rashes, warm and dry normal turgor Neurologic: PERRL, EOMI, accommodation nl, no face palsy, no dysarthria CN's II- XI intact bilaterally and moves all extremities Psychiatric: A+Ox3, euthymic affect Discharge Data Allergies Allergy/AdvReac Type Severity Reaction Status Date / Time levofloxacin Allergy Intermediate LE Verified 07/06/23 12:06 swelling and blistering paclitaxel [From Taxol] Allergy Intermediate facial Verified 07/06/23 12:06 flushing, bradycardia doxorubicin AdvReac Severe Hypoxia Verified 07/06/23 12:06 clindamycin AdvReac Intermediate PT Verified 07/06/23 12:06 CONTRACTED C-DIFF shellfish derived AdvReac Intermediate NAUSEA,DIARRHEA, Verified 07/06/23 12:06 VOMITING adhesive AdvReac Mild SKIN Verified 07/06/23 12:06 BLISTERS SOME TIMES Consultations 07/06/23 13:07 ED Decision to Admit Stat 07/06/23 14:17 Consult Pulmonology Routine Hospital Course (1) Acute on chronic respiratory failure with hypoxia: (2) Interstitial lung disease: (3) Pulmonary HTN: (4) Chronic right-sided HF (heart failure): Patient presenting from home with reports of worsening shortness of breath and hypoxia. Recently admitted for acute on chronic hypoxic respiratory failure due to CHF and/or pneumonia in the setting of underlying interstitial lung disease. Patient discharged on increased O2 requirement --4 L at rest and 6 L with activity. Patient now requiring 6 L of oxygen with rest. PFTs from 05/2023 showed a significant worsening of lung function. CT chest without contrast 06/23/2023 showed progression of interstitial and fibrotic lung disease. Chest x-ray on admission showed increasing bilateral infiltrate. She was afebrile. No leukocytosis was present and had normal procalcitonin. She was admitted to medical floor for further management. Pulmonology was consulted for comanagement. She was started on IV diuretics and antibiotics. Over the course of the hospitalization, patient reported improvement in her symptoms with decreasing shortness of breath. She was also started on DuoNeb [id number] which she reported to help her. At discharge, she was prescribed cefdinir to complete duration of antibiotic. Also, her dose of Lasix was increased to 40 mg twice daily. She was also prescribed nebulizer machine along with DuoNeb. Patient was discharged home with instruction to follow-up with PCP, pulmonology. (5) Paroxysmal atrial fibrillation: Rhythm controlled on sotalol EKG personally reviewed from admission; normal sinus rhythm. QTc of 464 Not anticoagulated due to history of chronic anemia and bleeding issues Remained in sinus rhythm throughout the hospitalization. (6) Hemolytic anemia: Follows with heme-onc, currently on prednisone 10 mg daily Hemoglobin slightly lower to 8.1 today. LDH, haptoglobin and reticulocyte leukocyte count obtained as per recommendation by her outpatient operations vocational instructor (Dr. Marion).LDH within normal limits. Reticulocyte count of 2.6. Haptoglobin of 136. Recommended 1 unit of packed RBC transfusion which was transfused on 07/08/2023. (7) Pacemaker: (8) Tachy-lakeisha syndrome: Please note the above document was generated using voice recognition software. It may contain grammatical, syntax or spelling errors. Any formal questions or concerns about the content, text or information contained within the body of this dictation should be directly addressed to the provider for clarification Total Time Total Time Spent Total Time Spent (In Minutes): 45 Total Time Includes: Examination of the Patient, Discharge Planning, Medication Reconciliation, Communication With Other Providers and Other Discharge Plan Discharge Items Patient Disposition: Home - Self-Care Reason For Visit: RESP FAILURE Discharge Diagnosis: Acute on chronic respiratory failure Activity: Resume your previous activity Non-emergency contact: Primary Care Provider Call non-emergency contact if: you have any medication questions and your symptoms worsen Follow-up/Referrals: Kat Hawthorne DO [Primary Care Provider] - (Date & Time 07/16/2023 10:20 AM Provider Angie Trejo MD Department [facility] ) Darrell Mix M.D. [Outside Practitioners] - (Date & Time 07/24/2023 11:20 AM Provider Darrell Mix MD Department Pulmonary Medicine, [facility] ) Diet: Regular Addtl Attending Provider Instructions: You were admitted to the hospital for increasing shortness of breath. The most likely cause for it is pneumonia and heart failure. Also, progression of the interstitial disease can contribute to it. You are prescribed following medication: 1) Cefdinir 300 mg twice a day for 5 more days. 2) Nebulizer with DuoNebs as needed for up to 4 times a day for shortness of breath. Lasix dosage increased from 40 mg once a day to 40 mg twice a day. Please follow-up with your primary care doctor. An appointment will be set up for sometime next week. Please follow-up with pulmonology and interstitial lung disease clinic. Pending Studies at Discharge: No Stand-Alone Forms: My Zite, Smoking Cessation Medications and DC Order Prescriptions: New ipratropium-albuterol 0.5 mg-3 mg(2.5 mg base)/3 mL Solution For Nebulization 3 ml NEB QIDR PRN (Reason: shortness of breath) Qty: 180 0RF cefdinir 300 mg capsule 300 mg PO BID 5 Days Qty: 10 0RF Continued cholecalciferol (vitamin D3) 50 mcg (2,000 unit) tablet 2,000 unit PO QAM Qty: 90 3RF omeprazole 20 mg capsule,delayed release(DR/EC) 20 mg PO BID sertraline [Zoloft] 100 mg Tablet 100 mg PO QAM lorazepam 0.5 mg Tablet 0.5 mg PO Q8H PRN (Reason: Anxiety) folic acid 1 mg Tablet 1 mg PO QAM sotalol 80 mg tablet 80 mg PO BID cyclobenzaprine 5 mg tablet 5 mg PO BID PRN (Reason: Muscle Spasm) loratadine [Claritin] 10 mg Tablet 10 mg PO QAM acetaminophen [Tylenol] 325 mg Tablet 325 mg PO DIRECTED PRN (Reason: PAIN/FEVER) docusate sodium [Stool Softener] 100 mg Capsule 100 mg PO BID hydroxyzine HCl 25 mg tablet 25 mg PO HS PRN (Reason: Itching) albuterol sulfate 90 mcg/actuation HFA aerosol inhaler 2 puff INHALATION Q4H PRN (Reason: Wheezing) fluoride (sodium) [SF 5000 Plus] 1.1 % Cream 1 applic DENTAL BID (DME) Portable Oxygen Misc See Rx Instructions .Route Qty: 1 0RF Rx Instructions: 3lpm via nasal cannula. Test for portability (POC) gabapentin 300 mg capsule 300 mg PO TID prednisone 10 mg tablet 10 mg PO QAM amlodipine [Norvasc] 5 mg Tablet 5 mg PO QAM Qty: 30 1RF Mag 64 64 mg Tablet,Delayed Release (Dr/Ec) 64 mg PO BID Qty: 30 0RF Changed furosemide [Lasix] 40 mg tablet 40 mg PO BID Qty: 60 0RF Discharge Orders: Discharge Order (Routine); Ordered 07/10/23 Ordered By: Nixon Sherman Admission Data Admit Date/Time: 07/06/23 13:26 Attending Provider: Nixon Sherman Admit Provider: Solo Romero Primary Care Provider: Kat Hawthorne Other Providers: [facility] ; Solo Romero ; Dakota Brothers Other Interventions: Discharge Summary Assessment (RN) Last Done: 07/10/23 11:07
== END 2023-07-10 13:29 | disposition home or self-care (01) | DRG 189 ==
LOC: ED 10:26 → EDINP 13:26 → SUATTDRO 13:26 → 2S 14:18

== ENCOUNTER 2023-07-22 12:51 | Inpatient (IN) ==
--- NOTE | 2023-07-22 13:39 | Electrocardiogram Report ---
Test Reason : Blood Pressure : / mmHG Vent. Rate : 066 BPM Atrial Rate : 066 BPM P-R Int : 138 ms QRS Dur : 088 ms QT Int : 424 ms P-R-T Axes : 041 -04 031 degrees QTc Int : 444 ms Normal sinus rhythm Possible Left atrial enlargement Left ventricular hypertrophy ( R in aVL ) Nonspecific ST abnormality Abnormal ECG When compared with ECG of 06-JUL-2023 10:40, No significant change was found Confirmed by Bhavesh Kiser ([id number]) on 07/22/2023 1:38:53 PM Referred By: Confirmed By:Bhavseh Kiser
[2023-07-22 13:44] LABS: Base Excess VBG 14.1 mEq/L; HCO3 VBG 45 mmol/L; Oxygen Saturation VBG 72.2 %; PCO2 VBG 94 mmHg (38-50); PO2 VBG 45 mmHg; pH VBG 7.29 (7.36-7.41)
[2023-07-22 14:02] LABS: Hematocrit (blood only) 28.4 % (37.0-47.0); Hemoglobin 8.1 g/dl (12.0-16.0); Mean Corpuscular Hemoglobin 26.2 pg (25.0-34.0); Mean Corpuscular Hgb Conc 28.5 g/dL (32.0-36.0); Mean Corpuscular Volume 91.9 fL (80.0-100.0); Mean Platelet Volume 10.7 fL (9.4-12.4); Nucleated RBC # (auto) 0.02 K/uL (0.00-0.12); Nucleated RBC % (auto) 0.2 %; Platelet Count 153 K/uL (130-400); RDW Coefficient of Variation 21.2 % (11.5-14.5); RDW Standard Deviation 71.3 fL (36.4-46.3); Red Blood Count 3.09 M/uL (4.20-5.40); White Blood Count 8.36 K/ul (4.8-10.8)
[2023-07-22 14:11] LABS: Troponin I High Sensitivity 7.3 pg/ml (0-14)
--- NOTE | 2023-07-22 14:13 | XRay Report ---
XR chest 1V portable HISTORY: Sepsis COMPARISON: Chest 07/09/2023. FINDINGS: There are low lung volumes. No pneumothorax. The cardiac silhouette remains mildly enlarged . There is a left-sided dual-chamber pacemaker. Interstitial thickening and multifocal bilateral airs pace opacities have progressed. Trace bilateral pleural effusions again noted. There are surgical cli ps within the upper abdomen. IMPRESSION: Interval progression of the interstitial thickening and multifocal bilateral airspace opacities. ACT 112: Negative or not required by law. Electronically signed by: Karthik Cantu M.D. 07/22/2023 2:12 PM
[2023-07-22 14:26] LABS: Anisocytosis Present; Basophilic Stippling 1+; Basophils # (auto) 0.02 K/uL (0.00-0.20); Basophils % (auto) 0.2 %; Eosinophils # (auto) 0.13 K/uL (0.00-0.50); Eosinophils % (auto) 1.6 %; Immature Granulocytes # (auto) 0.15 K/uL (0.01-0.20); Immature Granulocytes % (auto) 1.8 %; Lymphocytes # (auto) 0.78 K/uL (1.20-3.40); Lymphocytes % (auto) 9.3 %; Monocytes # (auto) 0.46 K/uL (0.11-0.59); Monocytes % (auto) 5.5 %; Neutrophils # (auto) 6.82 K/uL (1.40-6.50); Neutrophils % (auto) 81.6 %; Polychromasia 1+; Stomatocytes 2+; Tear Drop Cells 1+
[2023-07-22 14:32] LABS: Albumin Level 3.8 gm/dl (3.4-5.0); BUN Creatinine Ratio 43.6 (10-20); Bilirubin Direct 0.1 mg/dl (0-0.2); Bilirubin,Total 0.7 mg/dl (0.2-1.0); Calcium 9.8 mg/dl (8.6-10.3); Est GFR (African American) 89.9 ml/min; Est GFR (Non-African American) 77.6 ml/min; Magnesium 1.8 mg/dl (1.7-2.4); Potassium 4.2 mmol/L (3.5-5.1); Total Protein 7.7 gm/dl (6.0-8.3)
--- NOTE | 2023-07-22 15:03 | Emergency Department Note ---
Impression & Plan Acute dyspnea, Acute respiratory failure with hypoxia and hypercapnia, Acute exacerbation of CHF (congestive heart failure) ED Provider Note HISTORY OF PRESENT ILLNESS: Patient is a 67-year-old female presenting with shortness of breath. Patient has a history of COPD and wears 6 L nasal cannula at baseline. Reports that she has had progressively worsening shortness of breath over the last few days. She states she woke up today and felt like she could not catch her breath. She called 911 and on EMS arrival the patient was on 9 L and her saturations were in the 70s. She was placed on 15 L nonrebreather with some improvement in her saturations. Patient denies any chest pain. Denies any significant weight gain over the last few days. She does take 40 mg of Lasix twice daily. Denies any abdominal pain. Denies any cough or fevers. Denies any recent sick contact ex posures. She states that 5 days ago she did get her flu vaccine and reports that she started not feeling well shortly after that ROS: as above PHYSICAL EXAM: Constitutional: Patient appears in no acute distress. HENT: Head: Normocephalic and atraumatic. Eyes: EOMI, PERRL Mouth/Throat: Mucous membranes moist. Neck: Trachea midline. Neck supple. Cardiovascular: RRR, No murmurs, rubs or gallops. Intact distal pulses. Pulmonary/Chest: Patient is tachypneic. She is on a nonrebreather with saturations of 98%. Abdominal: Abdomen soft, no tenderness, rebound or guarding. Musculoskeletal: No edema, tenderness or deformity noted. Skin: Warm and dry. No rash, erythema, pallor or cyanosis Psychiatric: Appropriate mood and affect for situation. Neurological: Alert and keenly responsive. CN II-XII grossly intact, moving all extremities equally and fully. MDM: - Vitals signs showed hypoxia. Patient was attempted to transition to a high flow nasal cannula, but she does not seem to be breathing through her nose and more of a mouth breather, as her saturations decreased to the 80s. She was transitioned to an OxyMask, but her saturations were persistently in the 80s. She was placed back on a nonrebreather. - History obtained via patient. Patient presents with progressively worsening shortness of breath. Patient reports progressively worsening shortness of breath over the last few days. She was found to be hypoxic by EMS today. Denies any chest pain. Denies any fevers - Chronic conditions affecting care: anxiety/depression; COPD; CHF; CKD stage 3; HTN - Differential diagnoses include, but are not limited to: Congestive heart failure; acute coronary syndrome; COPD/asthma exacerbation; pulmonary edema; pulmonary embolism; pneumonia; pneumothorax; viral syndrome - Order placed for continuous cardiac monitoring. At this time, monitor showed rate of 65 bpm with normal sinus rhythm, per my interpretation. - External medical records reviewed. EMS run sheet was reviewed. Patient was hypoxic on their arrival with saturations in the 70s on 9 L nasal cannula. She was placed on 15 L nonrebreather with saturations improving to the low 90s. - EKG reviewed by myself showed normal sinus rhythm. Rate 66 bpm. QTc 444. No acute ischemic changes - Laboratory workup interpreted by myself showed normal WBC; chronic anemia; normal lactate; normal potassium; elevated bicarb (44); elevated BUN (34); normal creatinine; normal troponin; normal procalcitonin; elevated BNP (325) - VBG shows respiratory acidosis (pH 7.1; pCO2 94) - CXR bilateral airspace opacities, per my interpretation - CT PE negative for PE. Noted to have extensive multifocal consolidation and groundglass opacities in the lungs. Also has trace right and left pleural effusions - Patient started on BiPAP at 15:55. Plan for repeat VBG at 16:30 to reassess. - Discussion was had with social group worker about patient's case and need for admission - Hospitalist consulted for admission - [facility] I provided 34 minutes of critical care time to this patient's care outside of billable procedures. ASSESSMENT AND PLAN: Diagnosis: dyspnea; acute hypoxic and hypercarbic respiratory failure; CHF exacerbation Plan: admit Past Med/Surg History Medical History (Updated 07/22/23 @ 15:18 by Cheryl Blakely MD) Anemia hx blood transfusions Hgb baseline 8-9 Anxiety Anxiety and depression Choledocholithiasis with obstruction S/p ERCP with stent placement on 01/20/23 Chronic hypoxemic respiratory failure Chronic right-sided HF (heart failure) Likely per cardio secondary to obesity hypo ventilatory syndrome/Pickwickian CKD (chronic kidney disease), stage III [address] Dr[address] 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 WELSH). 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: underwent procedure without any complications; was monitored for 6 doses of sotalol before being discharged home Ventral hernia Surgical History H/O arthroscopy of knee H/O cystoscopy H/O gastric bypass "1980, reversed in same year" History of appendectomy (~09/07/20) History of arthroscopy LEFT KNEE History of colonoscopy History of ERCP (~09/2020) History of esophagogastroduodenoscopy (EGD) History of herniorrhaphy VENTRAL HERNIA REPAIR= 04/27/17= GRADE VIEW 2, CLEMENTE#2, ETT 7.0 AT [facility] History of lithotripsy History of tonsillectomy History of total hysterectomy with bilateral salpingo-oophorectomy (BSO) (~09/07/20) @ [facility] [place] with appy at same time History of vascular access device removed S/P adenoidectomy S/P left knee arthroscopy [place] teeth removed Family History Mother Scleroderma Lupus Family history of reaction to anesthesia nausea Father Coronary heart disease Heart disease Brother Fatty liver Aunt Cancer unspecified Grandfather (Paternal) Heart disease Grandfather (Maternal) Lung disease Grandmother (Paternal) Stroke Grandmother (Maternal) Family history of diabetes mellitus Social History Smoking Status: Unknown if ever smoked Tobacco Type: Cigarettes Cigarettes Per Day: couple cigs on weekends in ; Second Hand Exposure: No; Do You Dip or Chew Tobacco: No; Hx Alcohol Use: No Hx Substance Use: No Preferred Language: Chinese Communication Ability: Effective Visual Impairment: No Limitations Bottom Presser Required: No Beliefs That Will Affect Care: None marital status: Current Living Situation: Alone Current Living Situation Comment: home health current occupational status: retired How many Children do You have: 0 Feels Safe at Home: Yes Diet: regular during the past year weight has: remained stable Assistive Devices: Oxygen - Continuous and Walker Allergies Allergies Allergy/AdvReac Type Severity Reaction Status Date / Time levofloxacin Allergy Intermediate LE Verified 07/22/23 15:30 swelling and blistering paclitaxel [From Taxol] Allergy Intermediate facial Verified 07/22/23 15:30 flushing, bradycardia doxorubicin AdvReac Severe Hypoxia Verified 07/22/23 15:30 clindamycin AdvReac Intermediate PT Verified 07/22/23 15:30 CONTRACTED C-DIFF shellfish derived AdvReac Intermediate NAUSEA,DIARRHEA, Verified 07/22/23 15:30 VOMITING adhesive AdvReac Mild SKIN Verified 07/22/23 15:30 BLISTERS SOME TIMES Home Meds Home Medications Medication Instructions Recorded Confirmed lorazepam 0.5 mg tablet 0.5 mg PO Q8H PRN Anxiety 10/18/18 07/22/23 sertraline 100 mg tablet (Zoloft) 100 mg PO QAM 10/18/18 07/22/23 cyclobenzaprine 5 mg tablet 5 mg PO BID PRN Muscle Spasm 08/25/19 07/22/23 omeprazole 20 mg capsule,delayed 20 mg PO BID 04/12/20 07/22/23 release folic acid 1 mg tablet 1 mg PO QAM 05/08/20 07/22/23 sotalol 80 mg tablet 80 mg PO BID 10/01/20 07/22/23 loratadine 10 mg tablet (Claritin) 10 mg PO QAM 09/18/22 07/22/23 acetaminophen 325 mg tablet 325 mg PO DIRECTED PRN 02/27/23 07/22/23 (Tylenol) PAIN/FEVER albuterol sulfate 90 mcg/actuation 2 puff inhalation Q4H PRN Wheezing 02/27/23 07/22/23 aerosol inhaler docusate sodium 100 mg capsule 100 mg PO BID 02/27/23 07/22/23 (Stool Softener) fluoride (sodium) 1.1 % dental 1 applic dental BID 02/27/23 07/22/23 cream (SF 5000 Plus) hydroxyzine HCl 25 mg tablet 25 mg PO HS PRN Itching 02/27/23 07/22/23 gabapentin 300 mg capsule 300 mg PO TID 06/17/23 07/22/23 prednisone 10 mg tablet 10 mg PO QAM 06/17/23 07/22/23 montelukast 10 mg tablet 10 mg PO QAM 07/22/23 07/22/23 Previous Rx's Medication Instructions Recorded cholecalciferol (vitamin D3) 50 2,000 unit PO QAM #90 tabs 04/09/21 mcg (2,000 unit) tablet Portable Oxygen #1 ea 01/23/23 amlodipine 5 mg tablet (Norvasc) 5 mg PO QAM #30 tabs 06/22/23 magnesium chloride 64 mg 64 mg PO BID #30 tabs 06/22/23 (magnesium chloride) tablet,delayed release (Mag 64) furosemide 40 mg tablet (Lasix) 40 mg PO BID #60 tabs 07/10/23 ipratropium 0.5 mg-albuterol 3 mg 3 ml NEB QIDR PRN shortness of 07/10/23 (2.5 mg base)/3 mL nebulization breath #180 mL soln Results & Data (ED) Vital Signs Vital Signs - 24 hr 07/22/23 13:12 07/22/23 12:39 07/22/23 12:39 Temperature 36.4 C L Temperature Source Oral Pulse Rate 67 67 Pulse Rate [Apical] Pulse Rate from SpO2 Sensor Respiratory Rate 19 Respiratory Effort / Characteristics Spontaneous Spontaneous Respiratory Depth Normal Normal Respiratory Pattern Regular Regular Blood Pressure 146/76 H Blood Pressure Mean 99 Pulse Oximetry 97 Oxygen Delivery Method Non-rebreather Non-rebreather Oxygen Flow Rate 15 15 Fraction of Inspired Oxygen Sepsis Recent Fever Within 48 Hours No Sepsis New/Unexplained Change in Mental Status N/A Sepsis Action Taken by Nursing No Action Required Oxygen Flow Rate - Titration Pulse Oximetry Post Tiitration 07/22/23 12:39 07/22/23 13:24 07/22/23 13:38 Temperature Temperature Source Pulse Rate Pulse Rate [Apical] 63 Pulse Rate from SpO2 Sensor Respiratory Rate 22 Respiratory Effort / Characteristics Spontaneous Respiratory Depth Respiratory Pattern Blood Pressure Blood Pressure Mean Pulse Oximetry 75 L 97 94 Oxygen Delivery Method Room Air Non-rebreather High Flow Nasal Cannula Oxygen Flow Rate 0 15 30 Fraction of Inspired Oxygen 70 Sepsis Recent Fever Within 48 Hours Sepsis New/Unexplained Change in Mental Status Sepsis Action Taken by Nursing Oxygen Flow Rate - Titration 15 Pulse Oximetry Post Tiitration 97 07/22/23 12:57 07/22/23 13:00 07/22/23 13:00 Temperature Temperature Source Pulse Rate 67 66 Pulse Rate [Apical] Pulse Rate from SpO2 Sensor 66 Respiratory Rate 21 23 Respiratory Effort / Characteristics Respiratory Depth Respiratory Pattern Blood Pressure 125/64 Blood Pressure Mean 99 Pulse Oximetry 98 Oxygen Delivery Method Oxygen Flow Rate Fraction of Inspired Oxygen Sepsis Recent Fever Within 48 Hours Sepsis New/Unexplained Change in Mental Status Sepsis Action Taken by Nursing Oxygen Flow Rate - Titration Pulse Oximetry Post Tiitration 07/22/23 13:15 07/22/23 13:30 07/22/23 13:30 Temperature Temperature Source Pulse Rate 65 64 Pulse Rate [Apical] Pulse Rate from SpO2 Sensor 65 64 Respiratory Rate 18 19 Respiratory Effort / Characteristics Respiratory Depth Respiratory Pattern Blood Pressure 132/71 Blood Pressure Mean 111 Pulse Oximetry 100 97 Oxygen Delivery Method Oxygen Flow Rate Fraction of Inspired Oxygen Sepsis Recent Fever Within 48 Hours Sepsis New/Unexplained Change in Mental Status Sepsis Action Taken by Nursing Oxygen Flow Rate - Titration Pulse Oximetry Post Tiitration 07/22/23 13:45 07/22/23 14:00 07/22/23 14:00 Temperature Temperature Source Pulse Rate 63 63 Pulse Rate [Apical] Pulse Rate from SpO2 Sensor 64 63 Respiratory Rate 20 21 Respiratory Effort / Characteristics Respiratory Depth Respiratory Pattern Blood Pressure 133/69 Blood Pressure Mean 92 Pulse Oximetry 93 87 L Oxygen Delivery Method Non-rebreather Oxymask Oxygen Flow Rate 15 15 Fraction of Inspired Oxygen Sepsis Recent Fever Within 48 Hours Sepsis New/Unexplained Change in Mental Status Sepsis Action Taken by Nursing Oxygen Flow Rate - Titration Pulse Oximetry Post Tiitration 07/22/23 14:15 07/22/23 14:15 07/22/23 14:30 Temperature Temperature Source Pulse Rate 63 Pulse Rate [Apical] Pulse Rate from SpO2 Sensor 64 Respiratory Rate 19 Respiratory Effort / Characteristics Respiratory Depth Respiratory Pattern Blood Pressure 132/75 Blood Pressure Mean 115 Pulse Oximetry 96 97 Oxygen Delivery Method Non-rebreather Non-rebreather Oxygen Flow Rate 15 15 Fraction of Inspired Oxygen Sepsis Recent Fever Within 48 Hours Sepsis New/Unexplained Change in Mental Status Sepsis Action Taken by Nursing Oxygen Flow Rate - Titration Pulse Oximetry Post Tiitration 07/22/23 14:30 07/22/23 14:45 07/22/23 15:00 Temperature Temperature Source Pulse Rate 64 65 Pulse Rate [Apical] Pulse Rate from SpO2 Sensor 64 65 Respiratory Rate 18 20 Respiratory Effort / Characteristics Respiratory Depth Respiratory Pattern Blood Pressure 141/76 H Blood Pressure Mean 120 Pulse Oximetry 97 97 Oxygen Delivery Method Non-rebreather Oxygen Flow Rate 15 Fraction of Inspired Oxygen Sepsis Recent Fever Within 48 Hours Sepsis New/Unexplained Change in Mental Status Sepsis Action Taken by Nursing Oxygen Flow Rate - Titration Pulse Oximetry Post Tiitration 07/22/23 15:00 07/22/23 15:23 07/22/23 15:30 Temperature Temperature Source Pulse Rate 64 67 Pulse Rate [Apical] Pulse Rate from SpO2 Sensor 64 67 Respiratory Rate 19 22 Respiratory Effort / Characteristics Respiratory Depth Respiratory Pattern Blood Pressure 134/70 Blood Pressure Mean 116 Pulse Oximetry 97 93 Oxygen Delivery Method Oxygen Flow Rate Fraction of Inspired Oxygen Sepsis Recent Fever Within 48 Hours Sepsis New/Unexplained Change in Mental Status Sepsis Action Taken by Nursing Oxygen Flow Rate - Titration Pulse Oximetry Post Tiitration 07/22/23 15:30 07/22/23 15:52 Temperature Temperature Source Pulse Rate 66 65 Pulse Rate [Apical] Pulse Rate from SpO2 Sensor 67 Respiratory Rate 20 18 Respiratory Effort / Characteristics Spontaneous Respiratory Depth Respiratory Pattern Blood Pressure Blood Pressure Mean Pulse Oximetry 95 95 Oxygen Delivery Method Non-rebreather Oxygen Flow Rate 15 Fraction of Inspired Oxygen 70 Sepsis Recent Fever Within 48 Hours Sepsis New/Unexplained Change in Mental Status Sepsis Action Taken by Nursing Oxygen Flow Rate - Titration Pulse Oximetry Post Tiitration Laboratory Data 07/22/23 12:39 07/22/23 12:39 Lab Results 07/22/23 07/22/23 07/22/23 Range/Units 12:39 12:39 12:39 WBC 8.36 (4.8-10.8) K/ul RBC 3.09 L (4.20-5.40) M/uL Hgb 8.1 L (12.0-16.0) g/dl Hct 28.4 L (37.0-47.0) % MCV 91.9 (80.0-100.0) fL MCH 26.2 (25.0-34.0) pg MCHC 28.5 L (32.0-36.0) g/dL RDW Std Deviation 71.3 H (36.4-46.3) fL RDW Coeff of Patrica 21.2 H (11.5-14.5) % Plt Count 153 (130-400) K/uL MPV 10.7 (9.4-12.4) fL Immature Gran % (Auto) 1.8 % Neut % (Auto) 81.6 % Lymph % (Auto) 9.3 % Dukes % (Auto) 5.5 % Eos % (Auto) 1.6 % Baso % (Auto) 0.2 % Neut # (Auto) 6.82 H (1.40-6.50) K/uL Lymph # (Auto) 0.78 L (1.20-3.40) K/uL Dukes # (Auto) 0.46 (0.11-0.59) K/uL Eos # (Auto) 0.13 (0.00-0.50) K/uL Baso # (Auto) 0.02 (0.00-0.20) K/uL Immature Gran # (Auto) 0.15 (0.01-0.20) K/uL Absolute Nucleated RBC 0.02 (0.00-0.12) K/uL Nucleated RBC % (auto) 0.2 % Hyposegmented Neuts 1+ Polychromasia 1+ Basophilic Stippling 1+ Anisocytosis Present Tear Drop Cells 1+ Stomatocytes 2+ VBG pH (7.36-7.41) VBG pCO2 (38-50) mmHg VBG pO2 mmHg VBG HCO3 mmol/L VBG O2 Saturation % VBG Base Excess mEq/L Sodium 139 (136-145) mmol/L Potassium 4.2 (3.5-5.1) mmol/L Chloride 93 L (98-107) mmol/L Carbon Dioxide 44 H* (21-32) mmol/L Anion Gap 2 L (3-11) BUN 34 H (6-23) mg/dl Creatinine 0.78 (0.6-1.2) mg/dl Est Cr Clr Drug Dosing 84.0 ml/min Est GFR ( Amer) 89.9 ml/min Est GFR (Non-Af Amer) 77.6 ml/min BUN/Creatinine Ratio 43.6 H (10-20) Glucose 125 H (70-99(Fasting)) mg/dl Lactate (0.4-2.0) mmol/L Calcium 9.8 (8.6-10.3) mg/dl Magnesium 1.8 (1.7-2.4) mg/dl Total Bilirubin 0.7 (0.2-1.0) mg/dl Direct Bilirubin 0.1 (0-0.2) mg/dl AST 13 (13-39) U/L ALT 10 (7-52) U/L Alkaline Phosphatase 93 (34-104) U/L Troponin I High Sens 7.3 (0-14) pg/ml B-Natriuretic Peptide (0-100) pg/ml Total Protein 7.7 (6.0-8.3) gm/dl Albumin 3.8 (3.4-5.0) gm/dl Procalcitonin 0.05 (0-0.5) ng/ml 07/22/23 07/22/23 07/22/23 Range/Units 12:39 12:39 Unknown WBC (4.8-10.8) K/ul RBC (4.20-5.40) M/uL Hgb (12.0-16.0) g/dl Hct (37.0-47.0) % MCV (80.0-100.0) fL MCH (25.0-34.0) pg MCHC (32.0-36.0) g/dL RDW Std Deviation (36.4-46.3) fL RDW Coeff of Patrica (11.5-14.5) % Plt Count (130-400) K/uL MPV (9.4-12.4) fL Immature Gran % (Auto) % Neut % (Auto) % Lymph % (Auto) % Dukes % (Auto) % Eos % (Auto) % Baso % (Auto) % Neut # (Auto) (1.40-6.50) K/uL Lymph # (Auto) (1.20-3.40) K/uL Dukes # (Auto) (0.11-0.59) K/uL Eos # (Auto) (0.00-0.50) K/uL Baso # (Auto) (0.00-0.20) K/uL Immature Gran # (Auto) (0.01-0.20) K/uL Absolute Nucleated RBC (0.00-0.12) K/uL Nucleated RBC % (auto) % Hyposegmented Neuts Polychromasia Basophilic Stippling Anisocytosis Tear Drop Cells Stomatocytes VBG pH 7.29 L (7.36-7.41) VBG pCO2 94 H (38-50) mmHg VBG pO2 45 mmHg VBG HCO3 45 mmol/L VBG O2 Saturation 72.2 % VBG Base Excess 14.1 mEq/L Sodium (136-145) mmol/L Potassium (3.5-5.1) mmol/L Chloride (98-107) mmol/L Carbon Dioxide (21-32) mmol/L Anion Gap (3-11) BUN (6-23) mg/dl Creatinine (0.6-1.2) mg/dl Est Cr Clr Drug Dosing ml/min Est GFR ( Amer) ml/min Est GFR (Non-Af Amer) ml/min BUN/Creatinine Ratio (10-20) Glucose (70-99(Fasting)) mg/dl Lactate 0.8 (0.4-2.0) mmol/L Calcium (8.6-10.3) mg/dl Magnesium (1.7-2.4) mg/dl Total Bilirubin (0.2-1.0) mg/dl Direct Bilirubin (0-0.2) mg/dl AST (13-39) U/L ALT (7-52) U/L Alkaline Phosphatase (34-104) U/L Troponin I High Sens (0-14) pg/ml B-Natriuretic Peptide 325 H (0-100) pg/ml Total Protein (6.0-8.3) gm/dl Albumin (3.4-5.0) gm/dl Procalcitonin (0-0.5) ng/ml Administered Medications Discontinued Medications Ioversol (Ioversol 350 Mg 125ml Prefilled Syringe) 118 ml IV ONCE ONE Stop: 07/22/23 15:21 Last Admin: 07/22/23 15:21 Dose: 118 ml Documented By: IDF Imaging Data Radiologist's Impression: Chest X-Ray 07/22/23 13:24 XR chest 1V portable HISTORY: Sepsis COMPARISON: Chest 07/09/2023. FINDINGS: There are low lung volumes. No pneumothorax. The cardiac silhouette remains mildly enlarged. There is a left-sided dual-chamber pacemaker. Interstitial thickening and multifocal bilateral airspace opacities have progressed. Trace bilateral pleural effusions again noted. There are surgical clips within the upper abdomen. IMPRESSION: Interval progression of the interstitial thickening and multifocal bilateral airspace opacities. ACT 112: Negative or not required by law. Electronically signed by: Karthik Cantu M.D. 07/22/2023 2:12 PM Chest CTA 07/22/23 14:48 CT ANGIOGRAPHY OF THE CHEST, PULMONARY EMBOLUS PROTOCOL CLINICAL HISTORY: Shortness of breath COMPARISON STUDY: Chest CT May 19, 2023. Chest radiograph July 09, 2023 and July 22, 2023. TECHNIQUE: Following IV administration of 118 mL of Optiray, helical axial images of the chest were obtained utilizing the pulmonary embolus protocol. Maximal intensity projections and sagittal and coronal reformats were viewed on an independent 3D workstation. IV contrast was administered without complication. Automated exposure control was utilized for the study. A dose lowering technique was utilized adhering to the principles of ALARA. CT DOSE: 1064.73 mGy.cm FINDINGS: No pulmonary emboli are identified although the segmental and subsegmental pulmonary arteries are suboptimally assessed. There is mild dilatation of the central pulmonary arteries. There is no thoracic aortic dissection. A dual-lead left subclavian pacer is in place. There is no pericardial effusion. Mildly enlarged mediastinal and bilateral hilar lymph nodes are similar to CT of May 19, 2023. Index prevascular node on image 120 at 199 measures 1 cm short axis diameter. Index left hilar node on image 108 measures 1.4 cm. Cardiomegaly is unchanged. Small right and trace left pleural effusions have developed. There is no pneumothorax. Extensive multifocal consolidation and groundglass opacities within the lungs have progressed since CT of May 19, 2023. The central airways are patent. There is no cavitation. Old mild T5 compression deformity is unchanged. Splenomegaly is unchanged. The liver is cirrhotic. IMPRESSION: 1. No pulmonary emboli identified although segmental and subsegmental pulmonary arteries suboptimally assessed. 2. Progression of extensive multifocal consolidation and groundglass opacities within the lungs since CT of May 19, 2023. These are nonspecific. Primary considerations include multifocal pneumonia, pulmonary edema and ARDS. 3. Interval development of small right and trace left pleural effusions. 4. Moderate cardiomegaly and coronary artery calcification. Mild dilatation of the central pulmonary arteries which raises the possibility of pulmonary arter ial hypertension. 5. No change in mild mediastinal and bilateral hilar lymphadenopathy. This is nonspecific and may be reactive. ACT 112: Negative or not required by law. Electronically signed by: Pro Joya M.D. 07/22/2023 3:46 PM Discharge Plan Visit Data Chief Complaint: Shortness of Breath/Dyspnea Stated Complaint: SOB ED Provider: Cheryl Blakely Discharge Problem: Acute dyspnea, Acute respiratory failure with hypoxia and hypercapnia, Acute exacerbation of CHF (congestive heart failure) Forms Stand Alone Forms: [employer] Prescriptions Prescriptions: No Action cholecalciferol (vitamin D3) 50 mcg (2,000 unit) tablet 2,000 unit PO QAM Qty: 90 3RF omeprazole 20 mg capsule,delayed release(DR/EC) 20 mg PO BID sertraline [Zoloft] 100 mg Tablet 100 mg PO QAM lorazepam 0.5 mg Tablet 0.5 mg PO Q8H PRN (Reason: Anxiety) folic acid 1 mg Tablet 1 mg PO QAM sotalol 80 mg tablet 80 mg PO BID cyclobenzaprine 5 mg tablet 5 mg PO BID PRN (Reason: Muscle Spasm) loratadine [Claritin] 10 mg Tablet 10 mg PO QAM acetaminophen [Tylenol] 325 mg Tablet 325 mg PO DIRECTED PRN (Reason: PAIN/FEVER) docusate sodium [Stool Softener] 100 mg Capsule 100 mg PO BID hydroxyzine HCl 25 mg tablet 25 mg PO HS PRN (Reason: Itching) albuterol sulfate 90 mcg/actuation HFA aerosol inhaler 2 puff INHALATION Q4H PRN (Reason: Wheezing) fluoride (sodium) [SF 5000 Plus] 1.1 % Cream 1 applic DENTAL BID ipratropium-albuterol 0.5 mg-3 mg(2.5 mg base)/3 mL Solution For Nebulization 3 ml NEB QIDR PRN (Reason: shortness of breath) Qty: 180 0RF furosemide [Lasix] 40 mg tablet 40 mg PO BID Qty: 60 0RF (DME) Portable Oxygen Misc See Rx Instructions .Route Qty: 1 0RF Rx Instructions: 3lpm via nasal cannula. Test for portability (POC) gabapentin 300 mg capsule 300 mg PO TID prednisone 10 mg tablet 10 mg PO QAM Rx Instructions: PER EXT MED HX--FILLED 04/10/23 FOR 100 TABS/TAPER DIRECTED. UNSURE OF PT STILL ON THIS MED. PER [facility]--10 MG DAILY. amlodipine [Norvasc] 5 mg Tablet 5 mg PO QAM Qty: 30 1RF Mag 64 64 mg Tablet,Delayed Release (Dr/Ec) 64 mg PO BID Qty: 30 0RF montelukast 10 mg tablet 10 mg PO QAM Referrals Referrals: Kat Hawthorne DO [Primary Care Provider] -
[2023-07-22] MEDS ORDERED: IOVERSOL 350 MG 125mL Prefilled Syringe IV ONE (15:20)
[2023-07-22] MEDS ORDERED: FUROSEMIDE 40 MG/4 ML VIAL IV ONE (15:40)
--- NOTE | 2023-07-22 15:47 | CT Scan Report ---
CT ANGIOGRAPHY OF THE CHEST, PULMONARY EMBOLUS PROTOCOL CLINICAL HISTORY: Shortness of breath COMPARISON STUDY: Chest CT May 19, 2023. Chest radiograph July 09, 2023 and July 22, 2023. TECHNIQUE: Following IV administration of 118 mL of Optiray, helical axial images of the chest were o btained utilizing the pulmonary embolus protocol. Maximal intensity projections and sagittal and cor onal reformats were viewed on an independent 3D workstation. IV contrast was administered without co mplication. Automated exposure control was utilized for the study. A dose lowering technique was ut ilized adhering to the principles of ALARA. CT DOSE: 1064.73 mGy.cm FINDINGS: No pulmonary emboli are identified although the segmental and subsegmental pulmonary arter ies are suboptimally assessed. There is mild dilatation of the central pulmonary arteries. There is n o thoracic aortic dissection. A dual-lead left subclavian pacer is in place. There is no pericardial effusion. Mildly enlarged mediastinal and bilateral hilar lymph nodes are similar to CT of May 19 023. Index prevascular node on image 120 at 199 measures 1 cm short axis diameter. Index left hilar n ode on image 108 measures 1.4 cm. Cardiomegaly is unchanged. Small right and trace left pleural effus ions have developed. There is no pneumothorax. Extensive multifocal consolidation and groundglass opa cities within the lungs have progressed since CT of May 19, 2023. The central airways are patent. Th ere is no cavitation. Old mild T5 compression deformity is unchanged. Splenomegaly is unchanged. The liver is cirrhotic. IMPRESSION: 1. No pulmonary emboli identified although segmental and subsegmental pulmonary arteries suboptimally assessed. 2. Progression of extensive multifocal consolidation and groundglass opacities within the lungs since CT of May 19, 2023. These are nonspecific. Primary considerations include multifocal pneumonia, pul monary edema and ARDS. 3. Interval development of small right and trace left pleural effusions. 4. Moderate cardiomegaly and coronary artery calcification. Mild dilatation of the central pulmonary arteries which raises the possibility of pulmonary arterial hypertension. 5. No change in mild mediastinal and bilateral hilar lymphadenopathy. This is nonspecific and may be reactive. ACT 112: Negative or not required by law. Electronically signed by: Pro Joya M.D. 07/22/2023 3:46 PM
--- NOTE | 2023-07-22 16:14 | History & Physical Report ---
Date of Service July 22, 2023 Assessment & Plan (1) Acute respiratory failure with hypoxia and hypercapnia: (2) Acute dyspnea: (3) BERRY (obstructive sleep apnea): (4) Acute exacerbation of CHF (congestive heart failure): (5) Paroxysmal atrial fibrillation: (6) Pacemaker: (7) CKD (chronic kidney disease), stage III: (8) Obesity, morbid, BMI 40.0-49.9: (9) Chronic anemia: (10) GERD (gastroesophageal reflux disease): (11) HTN (hypertension): Plan: Acute on chronic respiratory failure with hypoxia and hypercarbia Interstitial lung disease Pulmonary hypertension BERRY Chronic right-sided heart failure, possible acute exacerbation - Admit to pcu - Pt has been placed on bipap in the ER -- repeat ABG pending, follow -- will titrate to highflow NC if pt tolerates. At home wears 6L via NC since most recent discharge on 07/10. - CT chest reviewed personally: No PE, Progression of extensive multifocal consolidation and groundglass opacities within the lungs since CT of May 19, 2023. These are nonspecific. Primary considerations include multifocal pneumonia, pulmonary edema and ARDS. Interval development of small right and trace left pleural effusions. Moderate cardiomegaly and coronary artery calcification. Mild dilatation of the central pulmonary arteries which raises the possibility of pulmonary arterial hypertension. -VBG completed initially showingpH 7.29, PCO2 94, HCO3 45. Bicarb on blood work is elevated at 44. -Patient was initially wearing 9 L at home yesterday which is increased from her 6 L baseline, was placed on a 15 L nonrebreather mask in the ER and then transition to BiPAP 08/13. -Administered Lasix 80 mg IV in the ER, continue 40 mg BID IV diuresis - Hypertonic saline nebulizers Q6H prn - afebrile. No leukocytosis, check procalcitonin - Initiate IV cefepime and doxycycline, was recently completed course of cefdinir on 07/17, procalcitonin pending, wbc of 8.36 with left shift - IV solumedrol 40 mg Q8H - Consult pulmonology - Consider palliative care consultation - discussion held at bedside regarding not prolonging life on ventilator, not wanting extra tests, wanting regular diet, medications for sensation of shortness of breath. She is a DNR/DNI. Pt would not want intubation if necessary. 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 QTc of 464 Not anticoagulated due to history of chronic anemia and bleeding issues Hemolytic anemia: Follows with heme-onc, currently on prednisone 10 mg daily Hemoglobin 9.29 on admission - Recently required1 unit of packed RBC transfusion which was transfused on 07/08/2023. CKD stage III - chronic, stable, cr 0.78 on admission, likely volume up reflecting in her cr. GERD -Cont protonix DVT ppx: teds, scds FEN/GI: Allow heart healthy diet for now as she is trending towards wanting comfort only per discussion with Dr. Sherman Lines: 2 PIV CODE: DNR/DNI Dispo: From home, likely to remain in hospital x 2 days. History of Present Illness Chief Complaint: Shortness of breath Primary Care Provider: Kat Hawthorne DO This is a 67-year-old female with PMHx of chronic hypoxic respiratory failure on home O2, ILD, BERRY, ovarian cancer, paroxysmal atrial tachycardia, tac hybradycardia syndrome s/p pacemaker, paroxysmal atrial fibrillation on sotalol, not anticoagulated due to anemia and hx of bleeding issues, pulmonary hypertension, HTN, chronic diastolic CHF, hemolytic anemia, and other problems listed below who presents to the ED for evaluation of shortness of breath and hypoxia.Recently admitted for acute on chronic hypoxic respiratory failure due to CHF and/or pneumonia in the setting of underlying interstitial lung disease. Patient discharged on increased O2 requirement --4 L at rest and 6 L with activity on 07/10/23. Pt reports having a flu shot given on Thursday last week, and since then has not been feeling herself. She is weak, with progressive shortness of breath. Breathing worsened within the past 24 hrs, and increased her o2 from 6 L to 9L, however still did not improve her sob. Pt completed course of antibiotics on 07/17 from the previous admission. She has been able to take her home medications. 3 days ago she received the nebulizer in the mail to start treatments at home. She has been taking lasix 40 mg BID at home, and does not feel swollen at all. Denies fever, chills, sweats. Her brother, Jefry, is present at bedside and assists with the history. In the instance that her breathing would worsen, she is agreeable that she would not want to be on a ventilator. Pt would want to be kept comfortable and does not want to be placed on a ventilator. Recent Admissions: 06/17 through 06/22 for acute on chronic hypoxic respiratory failure felt to be due to pneumonia and/or volume overload. 07/06 -07/10 for similar issues treated again for pneumonia, ILD, and acute on chronic hypoxic resp failure. Allergies Allergy/AdvReac Type Severity Reaction Status Date / Time levofloxacin Allergy Intermediate LE Verified 07/22/23 15:30 swelling and blistering paclitaxel [From Taxol] Allergy Intermediate facial Verified 07/22/23 15:30 flushing, bradycardia doxorubicin AdvReac Severe Hypoxia Verified 07/22/23 15:30 clindamycin AdvReac Intermediate PT Verified 07/22/23 15:30 CONTRACTED C-DIFF shellfish derived AdvReac Intermediate NAUSEA,DIARRHEA, Verified 07/22/23 15:30 VOMITING adhesive AdvReac Mild SKIN Verified 07/22/23 15:30 BLISTERS SOME TIMES Home Medications Medication Instructions Recorded Confirmed Type lorazepam 0.5 mg tablet 0.5 mg PO Q8H PRN Anxiety 10/18/18 07/22/23 History sertraline 100 mg tablet (Zoloft) 100 mg PO QAM 10/18/18 07/22/23 History cyclobenzaprine 5 mg tablet 5 mg PO BID PRN Muscle Spasm 08/25/19 07/22/23 History omeprazole 20 mg capsule,delayed 20 mg PO BID 04/12/20 07/22/23 History release folic acid 1 mg tablet 1 mg PO QAM 05/08/20 07/22/23 History sotalol 80 mg tablet 80 mg PO BID 10/01/20 07/22/23 History cholecalciferol (vitamin D3) 50 2,000 unit PO QAM #90 tabs 04/09/21 07/22/23 Rx mcg (2,000 unit) tablet loratadine 10 mg tablet (Claritin) 10 mg PO QAM 09/18/22 07/22/23 History Portable Oxygen #1 ea 01/23/23 07/22/23 Rx acetaminophen 325 mg tablet 325 mg PO DIRECTED PRN 02/27/23 07/22/23 History (Tylenol) PAIN/FEVER albuterol sulfate 90 mcg/actuation 2 puff inhalation Q4H PRN Wheezing 02/27/23 07/22/23 History aerosol inhaler docusate sodium 100 mg capsule 100 mg PO BID 02/27/23 07/22/23 History (Stool Softener) fluoride (sodium) 1.1 % dental 1 applic dental BID 02/27/23 07/22/23 History cream (SF 5000 Plus) hydroxyzine HCl 25 mg tablet 25 mg PO HS PRN Itching 02/27/23 07/22/23 History gabapentin 300 mg capsule 300 mg PO TID 06/17/23 07/22/23 History prednisone 10 mg tablet 10 mg PO QAM 06/17/23 07/22/23 History amlodipine 5 mg tablet (Norvasc) 5 mg PO QAM #30 tabs 06/22/23 07/22/23 Rx magnesium chloride 64 mg 64 mg PO BID #30 tabs 06/22/23 07/22/23 Rx (magnesium chloride) tablet,delayed release (Mag 64) furosemide 40 mg tablet (Lasix) 40 mg PO BID #60 tabs 07/10/23 07/22/23 Rx ipratropium 0.5 mg-albuterol 3 mg 3 ml NEB QIDR PRN shortness of 07/10/23 07/22/23 Rx (2.5 mg base)/3 mL nebulization breath #180 mL soln montelukast 10 mg tablet 10 mg PO QAM 07/22/23 07/22/23 History Past Med/Surg History Medical History (Updated 07/23/23 @ 09:03 by Parag Kelly MD) Anemia hx blood transfusions Hgb baseline 8-9 Anxiety Anxiety and depression Choledocholithiasis with obstruction S/p ERCP with stent placement on 01/20/23 Chronic hypoxemic respiratory failure Chronic right-sided HF (heart failure) Likely per cardio secondary to obesity hypo ventilatory syndrome/Pickwickian CKD (chronic kidney disease), stage [address] 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 WELSH). 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: underwent procedure without any co mplications; was monitored for 6 doses of sotalol before being discharged home Ventral hernia Surgical History H/O arthroscopy of knee H/O cystoscopy H/O gastric bypass "1980, reversed in same year" History of appendectomy (~09/07/20) History of arthroscopy LEFT KNEE History of colonoscopy History of ERCP (~09/2020) History of esophagogastroduodenoscopy (EGD) History of herniorrhaphy VENTRAL HERNIA REPAIR= 04/27/17= GRADE VIEW 2, CLEMENTE#2, ETT 7.0 AT [facility] History of lithotripsy History of tonsillectomy History of total hysterectomy with bilateral salpingo-oophorectomy (BSO) (~09/07/20) @ [facility] [place] with appy at same time History of vascular access device removed S/P adenoidectomy S/P left knee arthroscopy [place] teeth removed Family History Mother Scleroderma Lupus Family history of reaction to anesthesia nausea Father Coronary heart disease Heart disease Brother Fatty liver Aunt Cancer unspecified Grandfather (Paternal) Heart disease Grandfather (Maternal) Lung disease Grandmother (Paternal) Stroke Grandmother (Maternal) Family history of diabetes mellitus Social History Smoking Status: Never smoker Tobacco Type: Cigarettes Cigarettes Per Day: couple cigs on weekends in ; Second Hand Exposure: No; Do You Dip or Chew Tobacco: No; Tobacco Cessation Education Requested by Patient: No Hx Alcohol Use: No Hx Substance Use: No Preferred Language: Armenian Communication Ability: Effective Visual Impairment: No Limitations Leaf Conditioner Helper Required: No Beliefs That Will Affect Care: None marital status: Current Living Situation: Alone Current Living Situation Comment: home health current occupational status: retired How many Children do You have: 0 Other Information That Helps Us Care for You: No Feels Safe at Home: Yes Diet: regular during the past year weight has: remained stable Assistive Devices: BiPap Review of Systems Review of Systems: Constitutional: No fever, sweats or chills Eyes: No diplopia, no worsening or blurred vision ENT: normal hearing, no trouble swallowing Respiratory: Progressive shortness of breath, no cough, no chest tightness Cardiovascular: No chest pain, tightness or palpitations Abdomen: No pain, nausea, vomiting, diarrhea or constipation Musculoskeletal: No joint pain, calf pain, swelling Neurologic: No weakness, numbness/tingling, or balance problems Psychiatric: No anxiety or depression Skin: No rash or itch Physical Exam Physical Exam: General: awake, alert, no apparent distress, + morbidly obese white female, + somnolent and closes eyes throughout much of conversation Head: Normocephalic, atraumatic ENT: PERRL, EOMI, no pharyngeal exudate, mucous membranes moist Chest: Coarse rhonchus breath sounds with absent sounds at bases bilaterally, on bipap 10/5, no wheeze or rales Cardiac: Regular rate and rhythm, +systolic murmur grade II/, no JVD, normal peripheral pulses, good capillary refill Abdominal: NABS x 4 quadrants, soft, nondistended, nontender to palpation, no rebound or guarding Extremities: Normal inspection, + minimal peripheral edema or erythema, calfs nontender to palpation, + left foot leg wound healing Psych: Normal mood and affect Neuro: AAO x 3, strength intact bilaterally and rated 5/5, no motor deficits, speech is clear, no peripheral sensory deficits Results & Data Results & Data Vital Signs (Past 12 Hours) Vital Signs Temp Pulse Pulse Resp BP Pulse Ox O2 Del Method 07/22/23 15:52 65 18 95 07/22/23 15:30 66 20 95 Non-rebreather 07/22/23 15:30 134/70 07/22/23 15:23 67 22 93 07/22/23 15:00 64 19 97 07/22/23 15:00 141/76 H 07/22/23 14:45 65 20 97 Non-rebreather 07/22/23 14:30 64 18 97 07/22/23 14:30 132/75 07/22/23 14:15 63 19 97 Non-rebreather 07/22/23 14:15 96 Non-rebreather 07/22/23 14:00 63 21 87 L Oxymask 07/22/23 14:00 133/69 07/22/23 13:45 63 20 93 Non-rebreather 07/22/23 13:30 64 19 97 07/22/23 13:30 132/71 07/22/23 13:15 65 18 100 07/22/23 13:00 66 23 98 07/22/23 13:00 125/64 07/22/23 12:57 67 21 07/22/23 13:38 63 22 94 High Flow Nasal Cannula 07/22/23 13:24 97 Non-rebreather 07/22/23 12:39 75 L Room Air 07/22/23 12:39 36.4 C L 67 19 146/76 H 97 Non-rebreather 07/22/23 12:39 Non-rebreather 07/22/23 13:12 67 O2 Flow Rate FiO2 07/22/23 15:52 70 07/22/23 15:30 15 07/22/23 15:30 07/22/23 15:23 07/22/23 15:00 07/22/23 15:00 07/22/23 14:45 15 07/22/23 14:30 07/22/23 14:30 07/22/23 14:15 15 07/22/23 14:15 15 07/22/23 14:00 15 07/22/23 14:00 07/22/23 13:45 15 07/22/23 13:30 07/22/23 13:30 07/22/23 13:15 07/22/23 13:00 07/22/23 13:00 07/22/23 12:57 07/22/23 13:38 30 70 07/22/23 13:24 15 07/22/23 12:39 0 07/22/23 12:39 15 07/22/23 12:39 15 07/22/23 13:12 Laboratory Results 07/22/23 15:05 Aerobic Blood Culture - Pending Blood Anaerobic Blood Culture - Pending 07/22/23 14:07 Aerobic Blood Culture - Pending Blood Anaerobic Blood Culture - Pending 07/22/23 07/22/23 07/22/23 Unknown 12:39 12:39 WBC RBC Hgb Hct MCV MCH MCHC RDW Std Deviation RDW Coeff of Patrica Plt Count MPV Immature Gran % (Auto) Neut % (Auto) Lymph % (Auto) Kerr % (Auto) Eos % (Auto) Baso % (Auto) Neut # (Auto) Lymph # (Auto) Kerr # (Auto) Eos # (Auto) Baso # (Auto) Immature Gran # (Auto) Absolute Nucleated RBC Nucleated RBC % (auto) Hyposegmented Neuts Polychromasia Basophilic Stippling Anisocytosis Tear Drop Cells Stomatocytes VBG pH 7.29 L VBG pCO2 94 H VBG pO2 45 VBG HCO3 45 VBG O2 Saturation 72.2 VBG Base Excess 14.1 Sodium Potassium Chloride Carbon Dioxide Anion Gap BUN Creatinine Est Cr Clr Drug Dosing Est GFR ( Amer) Est GFR (Non-Af Amer) BUN/Creatinine Ratio Glucose Lactate 0.8 Calcium Magnesium Total Bilirubin Direct Bilirubin AST ALT Alkaline Phosphatase Troponin I High Sens B-Natriuretic Peptide 325 H Total Protein Albumin Procalcitonin 07/22/23 07/22/23 07/22/23 12:39 12:39 12:39 WBC 8.36 RBC 3.09 L Hgb 8.1 L Hct 28.4 L MCV 91.9 MCH 26.2 MCHC 28.5 L RDW Std Deviation 71.3 H RDW Coeff of Patrica 21.2 H Plt Count 153 MPV 10.7 Immature Gran % (Auto) 1.8 Neut % (Auto) 81.6 Lymph % (Auto) 9.3 Kerr % (Auto) 5.5 Eos % (Auto) 1.6 Baso % (Auto) 0.2 Neut # (Auto) 6.82 H Lymph # (Auto) 0.78 L Kerr # (Auto) 0.46 Eos # (Auto) 0.13 Baso # (Auto) 0.02 Immature Gran # (Auto) 0.15 Absolute Nucleated RBC 0.02 Nucleated RBC % (auto) 0.2 Hyposegmented Neuts 1+ Polychromasia 1+ Basophilic Stippling 1+ Anisocytosis Present Tear Drop Cells 1+ Stomatocytes 2+ VBG pH VBG pCO2 VBG pO2 VBG HCO3 VBG O2 Saturation VBG Base Excess Sodium 139 Potassium 4.2 Chloride 93 L Carbon Dioxide 44 H* Anion Gap 2 L BUN 34 H Creatinine 0.78 Est Cr Clr Drug Dosing 84.0 Est GFR ( Amer) 89.9 Est GFR (Non-Af Amer) 77.6 BUN/Creatinine Ratio 43.6 H Glucose 125 H Lactate Calcium 9.8 Magnesium 1.8 Total Bilirubin 0.7 Direct Bilirubin 0.1 AST 13 ALT 10 Alkaline Phosphatase 93 Troponin I High Sens 7.3 B-Natriuretic Peptide Total Protein 7.7 Albumin 3.8 Procalcitonin 0.05 Diagnostic Findings Chest X-Ray 07/22/23 13:24 XR chest 1V portable HISTORY: Sepsis COMPARISON: Chest 07/09/2023. FINDINGS: There are low lung volumes. No pneumothorax. The cardiac silhouette remains mildly enlarged. There is a left-sided dual-chamber pacemaker. Interstitial thickening and multifocal bilateral airspace opacities have progressed. Trace bilateral pleural effusions again noted. There are surgical clips within the upper abdomen. IMPRESSION: Interval progression of the interstitial thickening and multifocal bilateral airspace opacities. ACT 112: Negative or not required by law. Electronically signed by: Karthik Cantu M.D. 07/22/2023 2:12 PM Chest CTA 07/22/23 14:48 CT ANGIOGRAPHY OF THE CHEST, PULMONARY EMBOLUS PROTOCOL CLINICAL HISTORY: Shortness of breath COMPARISON STUDY: Chest CT May 19, 2023. Chest radiograph July 09, 2023 and July 22, 2023. TECHNIQUE: Following IV administration of 118 mL of Optiray, helical axial im ages of the chest were obtained utilizing the pulmonary embolus protocol. Maximal intensity projections and sagittal and coronal reformats were viewed on an independent 3D workstation. IV contrast was administered without complication. Automated exposure control was utilized for the study. A dose lowering technique was utilized adhering to the principles of ALARA. CT DOSE: 1064.73 mGy.cm FINDINGS: No pulmonary emboli are identified although the segmental and subsegmental pulmonary arteries are suboptimally assessed. There is mild dilatation of the central pulmonary arteries. There is no thoracic aortic dissection. A dual-lead left subclavian pacer is in place. There is no pericardial effusion. Mildly enlarged mediastinal and bilateral hilar lymph nodes are similar to CT of May 19, 2023. Index prevascular node on image 120 at 199 measures 1 cm short axis diameter. Index left hilar node on image 108 measures 1.4 cm. Cardiomegaly is unchanged. Small right and trace left pleural effusions have developed. There is no pneumothorax. Extensive multifocal consolidation and groundglass opacities within the lungs have progressed since CT of May 19, 2023. The central airways are patent. There is no cavitation. Old mild T5 compression deformity is unchanged. Splenomegaly is unchanged. The liver is cirrhotic. IMPRESSION: 1. No pulmonary emboli identified although segmental and subsegmental pulmonary arteries suboptimally assessed. 2. Progression of extensive multifocal consolidation and groundglass opacities within the lungs since CT of May 19, 2023. These are nonspecific. Primary considerations include multifocal pneumonia, pulmonary edema and ARDS. 3. Interval development of small right and trace left pleural effusions. 4. Moderate cardiomegaly and coronary artery calcification. Mild dilatation of the central pulmonary arteries which raises the possibility of pulmonary arterial hypertension. 5. No change in mild mediastinal and bilateral hilar lymphadenopathy. This is nonspecific and may be reactive. ACT 112: Negative or not required by law. Electronically signed by: Pro Joya M.D. 07/22/2023 3:46 PM ECG Additional Comments: Reviewed personally showing NSR. 22-JUL-2023 13:00:48 [facility]-EDSTAT ROUTINE RETRIEVAL Normal sinus rhythm Possible Left atrial enlargement Left ventricular hypertrophy ( R in aVL ) Nonspecific ST abnormality Abnormal ECG When compared with ECG of 06-JUL-2023 10:40, No significant change was found Confirmed by Bhavesh Kiser ([id number]) on 07/22/2023 1:38:53 PM 25mm/s10mm/[id number] 243CID: 21Confirmed By: Bhavesh Limon. rate 66 BPM TN interval 138 ms QRS duration 88 ms QT/QTc 424/444 ms Code Status & VTE Plan Code Status DNR/DNI - discussed with the patient at bedside. Supervising Physician Co-Signing Physician Notes Patient seen and examined independently. Discussed with above provider. 67-year-old female with history of chronic hypoxic respite failure on 5 L of oxygen at bases, interstitial lung disease, pulmonary hypertension, CHFpEF presents with shortness of breath and hypoxia. She presented with oxygen saturation of 75%. VITAL stable. No leukocytosis; recently completed antibiotic course. VBG reviewed; acute on chronic hypercapnic respiratory failure CTA chest reviewed; progressive extensive multifocal consolidation and g roundglass opacities within the left lung. Assessment/plan Acute on chronic hypercapnic respiratory failure; likely secondary to progression of interstitial lung disease disease/pneumonia/ CHFpEF: We will start antibiotics with doxycycline and cefepime Diuretics with Lasix 40 mg IV twice daily DuoNebs every 6 along with hypertonic saline Will start her on methylprednisolone 40 mg 3 times daily Currently on BiPAP; wean as tolerated. Discussed goals of care; she would not want CPR or intubation. Her brother was at bedside. He will be the surrogate decision maker if patient is not able to make a decision. (10) GERD (gastroesophageal reflux disease) Esophagitis presence: without esophagitis Qualified Code(s): K21.9 - Gastro- esophageal reflux disease without esophagitis (11) HTN (hypertension) Hypertension type: unspecified Qualified Code(s): I10 - Essential (primary) hypertension
[2023-07-22] MEDS ORDERED: SODIUM CHLOR 7% 4 ML NEB NEB SCH (17:15)
[2023-07-22 17:44] LABS: Base Excess VBG 14.8 mEq/L; HCO3 VBG 46 mmol/L; Oxygen Saturation VBG 88.2 %; PCO2 VBG 93 mmHg (38-50); PO2 VBG 59 mmHg
[2023-07-22] MEDS ORDERED: ONDANSETRON INJ 2 MG/ML 2 ML VIAL IV PRN (18:26)
[2023-07-22] MEDS ORDERED: ALBUT/IPRATROP 3MG/0.5MG NEB 3 ML VIAL NEB PRN (18:26)
[2023-07-22] MEDS ORDERED: hydrOXYzine HCl 25 MG TAB PO PRN (18:26)
[2023-07-22] MEDS: CEFEPIME 2,000 MG in SYRINGE 0 ML IV SCH (18:40)
[2023-07-22] MEDS: DOXYCYCLINE HYCLATE 100 MG in DEXTROSE 5% 100 ML IV SCH (18:40)
[2023-07-22 18:44] LABS: Adenovirus PCR Not Detected (NotDetected); Bordetella parapertussis PCR Not Detected (NotDetected); Bordetella pertussis PCR Not Detected (NotDetected); Chlamydia pneumoniae PCR Not Detected (NotDetected); Coronavirus 229E PCR Not Detected (NotDetected); Coronavirus CoV-2 (COVID19)PCR Not Detected (NotDetected); Coronavirus HKU1 PCR Not Detected (NotDetected); Coronavirus NL63 PCR Not Detected (NotDetected); Coronavirus OC43PCR Not Detected (NotDetected); Human Metapneumovirus PCR Not Detected (NotDetected); Influenza A PCR Not Detected (NotDetected); Influenza B PCR Not Detected (NotDetected); Mycoplasma pneumoniae PCR Not Detected (NotDetected); Parainfluenza Virus 1 PCR Not Detected (NotDetected); Parainfluenza Virus 2 PCR Not Detected (NotDetected); Parainfluenza Virus 3 PCR Not Detected (NotDetected); Parainfluenza Virus 4 PCR Not Detected (NotDetected); Respiratory Syncytial VirusPCR Not Detected (NotDetected); Rhinovirus/Enterovirus PCR Not Detected (NotDetected)
[2023-07-22] MEDS: SODIUM CHLOR 7% 4 ML NEB NEB SCH (19:22)
[2023-07-22] MEDS: ALBUT/IPRATROP 3MG/0.5MG NEB 3 ML VIAL NEB SCH ×2 (19:39→22:22)
[2023-07-22] MEDS: PANTOprazole 40 MG TAB PO SCH (20:26)
[2023-07-22] MEDS: SOTALOL HCL 80 MG TAB PO SCH (20:26)
[2023-07-22] MEDS: methylPREDNISolone 40 MG in SYRINGE 0 ML IV SCH (20:26)
[2023-07-22] MEDS: GABAPENTIN 300 MG CAP PO SCH (20:26)
[2023-07-22] MEDS: DOCUSATE SODIUM 100 MG CAP PO SCH (20:26)
[2023-07-22] MEDS: MONTELUKAST SODIUM 10 MG TABLET PO SCH (20:26)
[2023-07-22] MEDS: MAGNESIUM CHLORIDE W/CALCIUM 64MG DELAYED REL TAB PO SCH (20:26)
[2023-07-22] MEDS: guaiFENesin 600 MG TABCR PO SCH (20:26)
[2023-07-22] MEDS: LORATADINE 10 MG TAB PO SCH (20:26)
[2023-07-22 21:38] LABS: Appearance Urine Clear (Clear); Bacteria Urine Automated Negative (Negative); Bilirubin Urine Negative (Negative); Blood Urine Negative (Negative); Cast Urine Automated 0 /lpf (0-5); Color Urine Yellow; Epithelial Cell Urine Auto 0-5 /lpf (0-5); Glucose Urine UA Negative (Negative); Ketones Urine Negative (Negative); Leukocyte Esterase Urine 1+ (Negative); Nitrite Urine Negative (Negative); Protein Urine Negative (Negative); RBC Urine Automated 0-4 /hpf (0-4); Specific Gravity Urine 1.016 (1.000-1.030); Urobilinogen Urine Negative (Negative)
[2023-07-23] MEDS: ALBUT/IPRATROP 3MG/0.5MG NEB 3 ML VIAL NEB SCH ×6 (02:03→22:11)
[2023-07-23] MEDS: methylPREDNISolone 40 MG in SYRINGE 0 ML IV SCH ×2 (02:35→08:48)
[2023-07-23] MEDS: CEFEPIME 2,000 MG in SYRINGE 0 ML IV SCH (02:35)
[2023-07-23] MEDS: DOXYCYCLINE HYCLATE 100 MG in DEXTROSE 5% 100 ML IV SCH (05:57)
[2023-07-23] MEDS: SODIUM CHLOR 7% 4 ML NEB NEB SCH ×2 (06:18→19:12)
[2023-07-23 07:03] LABS: Hematocrit (blood only) 26.9 % (37.0-47.0); Hemoglobin 7.9 g/dl (12.0-16.0); Mean Corpuscular Hemoglobin 26.6 pg (25.0-34.0); Mean Corpuscular Hgb Conc 29.4 g/dL (32.0-36.0); Mean Corpuscular Volume 90.6 fL (80.0-100.0); Mean Platelet Volume 10.4 fL (9.4-12.4); Nucleated RBC # (auto) 0.03 K/uL (0.00-0.12); Nucleated RBC % (auto) 0.5 %; Platelet Count 130 K/uL (130-400); RDW Coefficient of Variation 20.8 % (11.5-14.5); RDW Standard Deviation 69.2 fL (36.4-46.3); Red Blood Count 2.97 M/uL (4.20-5.40); White Blood Count 6.57 K/ul (4.8-10.8)
[2023-07-23 07:27] LABS: Albumin Level 3.7 gm/dl (3.4-5.0); BUN Creatinine Ratio 44.7 (10-20); Bilirubin,Total 0.6 mg/dl (0.2-1.0); Calcium 9.4 mg/dl (8.6-10.3); Creatinine Clr Calc Pharmacy 76.1 ml/min; Est GFR (Non-African American) 69.9 ml/min; Globulin 3.7 gm/dl (2.5-4.0); Magnesium 1.8 mg/dl (1.7-2.4); Potassium 4.7 mmol/L (3.5-5.1); Total Protein 7.4 gm/dl (6.0-8.3)
[2023-07-23] MEDS: SERTRALINE HCL 100 MG TABLET PO SCH (08:49)
[2023-07-23] MEDS: MAGNESIUM CHLORIDE W/CALCIUM 64MG DELAYED REL TAB PO SCH ×2 (08:49→21:21)
[2023-07-23] MEDS: DOCUSATE SODIUM 100 MG CAP PO SCH ×2 (08:49→21:21)
[2023-07-23] MEDS: PANTOprazole 40 MG TAB PO SCH ×2 (08:49→21:23)
[2023-07-23] MEDS: SOTALOL HCL 80 MG TAB PO SCH ×2 (08:49→21:21)
[2023-07-23] MEDS: amLODIPine BESYLATE 5 MG TAB PO SCH (08:49)
[2023-07-23] MEDS: FOLIC ACID 1 MG TAB PO SCH (08:49)
[2023-07-23] MEDS: CHOLECALCIFEROL 1,000 UNITS 25 MCG TAB PO SCH (08:49)
[2023-07-23] MEDS: LORATADINE 10 MG TAB PO SCH (08:49)
[2023-07-23] MEDS: GABAPENTIN 300 MG CAP PO SCH ×3 (08:49→21:20)
[2023-07-23] MEDS: guaiFENesin 600 MG TABCR PO SCH ×2 (08:49→21:22)
--- NOTE | 2023-07-23 08:56 | Pulmonary Consultation ---
Date of Consultation July 23, 2023 Assessment & Plan (1) Acute respiratory failure with hypoxia and hypercapnia: (2) Hypersensitivity pneumonitis: Plan Impression: 67-year-old female with history of hypersensitivity pneumonitis. Unclear how the diagnosis was made or what the offending agent is but she has had recurrent hospitalizations with progressive infiltrates. She is been treated aggressively with antibiotics with no significant improvement and is now both hypoxemic and hypercarbic. Her current oxygen requirement and respiratory status would preclude bronchoscopy at this point time. Recommendations: 1. Hypersensitivity pneumonitis: Placed the patient on high-dose steroids (125 mg Solu-Medrol IV every 8) and see how she does. If she responds favorably, consideration for the addition of a steroid sparing agent such as mycophenolate or azathioprine might be appropriate. We will recheck serologies including HP panel to try and better define this disease process. If chronic steroids are entertained, PJP prophylaxis will need to be initiated 2. With the lack of fever, normal procalcitonin, and absence of white blood cell count, I think holding antibiotics at this point time is reasonable. They will be discontinued and will follow the patient clinically. 3. Hypoxemic and hypercarbic respiratory failure. Given her significant hypercarbia would not try and target oxygen saturations much above 88 to 89%. We will place the patient on empiric CPAP overnight and as needed during the day. If the patient is not willing or able to tolerate CPAP, the only other alternative would be tracheostomy with long-term ventilatory support which the patient is not in agreement with. She understands the potential risks and does not want to pursue aggressive interventions. 4. Weight loss would ultimately be beneficial. 5. Given the patient's anemia (questionable hemolytic). This does raise the possibility for other potential etiologies involving the pulmonary infiltrates. Again bronchoscopy with biopsy and BAL would be beneficial however her res piratory status would preclude any additional invasive respiratory procedures at this time. We will treat empirically in the hopes that the patient has clinical improvement. Should she fail to respond to the above therapy or certainly if she should decline, transition to a palliative approach would be recommended. The above recommendations and plan were extensively discussed with the patient at bedside. Questions were answered to the best my ability. She expressed understanding and is in agreement with the plan as outlined. History of Present Illness Attending Physician: Nixon Sherman MD History of Present Illness Asked by hospitalist to assist in evaluation management this patient with chronic hypersensitivity pneumonitis admitted with progressive hypoxemic respiratory failure and progressive pulmonary infiltrates. History is obtained from review the electronic medical record as well as discussion with the patient. This 67-year-old female has been followed in the pulmonary clinic. She saw Dr. Rendon about a year ago. She was placed on oxygen. Since that time she appears to be transitioning her care to [facility]. She is not on any immune suppressive regimens. She was admitted to the hospital and treated for pneumonia around the middle of June. Right and left heart catheterizations were recommended at that point in time. She was readmitted about 2 weeks later and treated with an additional course of antibiotics. Does not appear she has been on prednisone. She presented back to the emergency room with hypoxemia and shortness of breath. She has had increase her oxygen up to 6 L/min. She is not coughing or expectorating phlegm. Her CT scan demonstrated progression of the nodular mostly upper lobe infiltrates. She was placed again on broad-spectrum antibiotics. She is afebrile. Her white count is normal. Her procalcitonin was negative. The patient is followed at [facility] hematology for anemia of unclear etiology. Allergies Allergy/AdvReac Type Severity Reaction Status Date / Time levofloxacin Allergy Intermediate LE Verified 07/22/23 15:30 swelling and blistering paclitaxel [From Taxol] Allergy Intermediate facial Verified 07/22/23 15:30 flushing, bradycardia doxorubicin AdvReac Severe Hypoxia Verified 07/22/23 15:30 clindamycin AdvReac Intermediate PT Verified 07/22/23 15:30 CONTRACTED C-DIFF shellfish derived AdvReac Intermediate NAUSEA,DIARRHEA, Verified 07/22/23 15:30 VOMITING adhesive AdvReac Mild SKIN Verified 07/22/23 15:30 BLISTERS SOME TIMES Home Medications Medication Instructions Recorded Confirmed Type lorazepam 0.5 mg tablet 0.5 mg PO Q8H PRN Anxiety 10/18/18 07/22/23 History sertraline 100 mg tablet (Zoloft) 100 mg PO QAM 10/18/18 07/22/23 History cyclobenzaprine 5 mg tablet 5 mg PO BID PRN Muscle Spasm 08/25/19 07/22/23 History omeprazole 20 mg capsule,delayed 20 mg PO BID 04/12/20 07/22/23 History release folic acid 1 mg tablet 1 mg PO QAM 05/08/20 07/22/23 History sotalol 80 mg tablet 80 mg PO BID 10/01/20 07/22/23 History cholecalciferol (vitamin D3) 50 2,000 unit PO QAM #90 tabs 04/09/21 07/22/23 Rx mcg (2,000 unit) tablet loratadine 10 mg tablet (Claritin) 10 mg PO QAM 09/18/22 07/22/23 History Portable Oxygen #1 ea 01/23/23 07/22/23 Rx acetaminophen 325 mg tablet 325 mg PO DIRECTED PRN 02/27/23 07/22/23 History (Tylenol) PAIN/FEVER albuterol sulfate 90 mcg/actuation 2 puff inhalation Q4H PRN Wheezing 02/27/23 07/22/23 History aerosol inhaler docusate sodium 100 mg capsule 100 mg PO BID 02/27/23 07/22/23 History (Stool Softener) fluoride (sodium) 1.1 % dental 1 applic dental BID 02/27/23 07/22/23 History cream (SF 5000 Plus) hydroxyzine HCl 25 mg tablet 25 mg PO HS PRN Itching 02/27/23 07/22/23 History gabapentin 300 mg capsule 300 mg PO TID 06/17/23 07/22/23 History prednisone 10 mg tablet 10 mg PO QAM 06/17/23 07/22/23 History amlodipine 5 mg tablet (Norvasc) 5 mg PO QAM #30 tabs 06/22/23 07/22/23 Rx magnesium chloride 64 mg 64 mg PO BID #30 tabs 06/22/23 07/22/23 Rx (magnesium chloride) tablet,delayed release (Mag 64) furosemide 40 mg tablet (Lasix) 40 mg PO BID #60 tabs 07/10/23 07/22/23 Rx ipratropium 0.5 mg-albuterol 3 mg 3 ml NEB QIDR PRN shortness of 07/10/23 Rx (2.5 mg base)/3 mL nebulization breath #180 mL soln montelukast 10 mg tablet 10 mg PO QAM 07/22/23 07/22/23 History Patient History Medical History (Updated 07/23/23 @ 09:03 by Parag Kelly MD) Anemia hx blood transfusions Hgb baseline 8-9 Anxiety Anxiety and depression Choledocholithiasis with obstruction S/p ERCP with stent placement on 01/20/23 Chronic hypoxemic respiratory failure Chronic right-sided HF (heart failure) Likely per cardio secondary to obesity hypo ventilatory syndrome/Pickwickian CKD (chronic kidney disease), stage [address] 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 WELSH). 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: underwent procedure without any complications; was monitored for 6 doses of sotalol before being discharged home Ventral hernia Surgical History H/O arthroscopy of knee H/O cystoscopy H/O gastric bypass "1980, reversed in same year" History of appendectomy (~09/07/20) History of arthroscopy LEFT KNEE History of colonoscopy History of ERCP (~09/2020) History of esophagogastroduodenoscopy (EGD) History of herniorrhaphy VENTRAL HERNIA REPAIR= 04/27/17= GRADE VIEW 2, CLEMENTE#2, ETT 7.0 AT [facility] History of lithotripsy History of tonsillectomy History of total hysterectomy with bilateral salpingo-oophorectomy (BSO) (~09/07/20) @ [facility] with appy at same time History of vascular access device removed S/P adenoidectomy S/P left knee arthroscopy [place] teeth removed Family History Mother Scleroderma Lupus Family history of reaction to anesthesia nausea Father Coronary heart disease Heart disease Brother Fatty liver Aunt Cancer unspecified Grandfather (Paternal) Heart disease Grandfather (Maternal) Lung disease Grandmother (Paternal) Stroke Grandmother (Maternal) Family history of diabetes mellitus Social History Smoking Status: Never smoker Tobacco Type: Cigarettes Cigarettes Per Day: couple cigs on weekends in ; Second Hand Exposure: No; Do You Dip or Chew Tobacco: No; Tobacco Cessation Education Requested by Patient: No Hx Alcohol Use: No Hx Substance Use: No Preferred Language: Pakistani Communication Ability: Effective Visual Impairment: No Limitations Machine Rigger Required: No Beliefs That Will Affect Care: None marital status: Current Living Situation: Alone Current Living Situation Comment: home health current occupational status: retired How many Children do You have: 0 Other Information That Helps Us Care for You: No Feels Safe at Home: Yes Diet: regular during the past year weight has: remained stable Assistive Devices: BiPap Review of Systems Review of Systems: Please refer to admission H&P. No additions or deletions Physical Exam Constitutional: WD/WN, vitals as above Eyes: PERRL, conjunctivae normal, anicteric sclerae ENMT: external ear and nose normal, oropharynx normal Neck: trachea midline, no thyromegaly Cardiovascular: RRR, no murmur, no edema Rate/Rhythm: regular rate and regular rhythm Chest (Breasts): Additional Comments: Breath sounds diminished to the bases with some fine crackles but good overall inspiratory and expiratory effort. Gastrointestinal (Abdomen): normal bowel sounds, soft, nontender, no hep atosplenomegaly Musculoskeletal: no cyanosis or clubbing, extremities motor strength 5/5 Skin: Frail thin but no rashes tears or abrasions Neurologic: patellar DTR's 2+ bilat, sensation intact and PERRL, EOMI, accommodation nl, no face palsy, no dysarthria Psychiatric: A+Ox3, euthymic affect Results & Data Results & Data Vital Signs (Past 12 Hours) Vital Signs Temp Pulse Pulse Resp BP Pulse Ox O2 Del Method 07/23/23 08:06 36.4 C L 62 19 138/69 90 Oxymask 07/23/23 07:00 62 07/23/23 06:18 62 18 91 Oxymask 07/23/23 02:33 36.6 C 66 20 141/74 H 90 Oxymask 07/23/23 02:04 63 16 91 Oxymask 07/22/23 23:04 36.6 C 69 22 146/69 H 90 Oxymask 07/22/23 22:42 66 07/22/23 22:22 66 19 89 L Oxymask O2 Flow Rate 07/23/23 08:06 15 07/23/23 07:00 07/23/23 06:18 15 07/23/23 02:33 15 07/23/23 02:04 15 07/22/23 23:04 15 07/22/23 22:42 07/22/23 22:22 15 Critical Care Results & Data Vital Signs (Past 12 Hours) Vital Signs Temp Pulse Pulse Resp BP Pulse Ox O2 Del Method 07/23/23 08:06 36.4 C L 62 19 138/69 90 Oxymask 07/23/23 07:00 62 07/23/23 06:18 62 18 91 Oxymask 07/23/23 02:33 36.6 C 66 20 141/74 H 90 Oxymask 07/23/23 02:04 63 16 91 Oxymask 07/22/23 23:04 36.6 C 69 22 146/69 H 90 Oxymask 07/22/23 22:42 66 07/22/23 22:22 66 19 89 L Oxymask O2 Flow Rate 07/23/23 08:06 15 07/23/23 07:00 07/23/23 06:18 15 07/23/23 02:33 15 07/23/23 02:04 15 07/22/23 23:04 15 07/22/23 22:42 07/22/23 22:22 15 Lab & Micro Results (Past 24 Hours) RBC 2.97 M/uL (4.20-5.40) L 07/23/23 WBC 6.57 K/ul (4.8-10.8) 07/23/23 Hgb 7.9 g/dl (12.0-16.0) L 07/23/23 Hct 26.9 % (37.0-47.0) L 07/23/23 MCV 90.6 fL (80.0-100.0) 07/23/23 MCH 26.6 pg (25.0-34.0) 07/23/23 MCHC 29.4 g/dL (32.0-36.0) L 07/23/23 RDW Standard Deviation 69.2 fL (36.4-46.3) H 07/23/23 RDW Coefficient of Variation 20.8 % (11.5-14.5) H 07/23/23 Plt Count 130 K/uL (130-400) 07/23/23 MPV 10.4 fL (9.4-12.4) 07/23/23 Nucleated Red Blood Cells % (auto) 0.5 % 07/23 Nucleated RBC Absolute Count (auto) 0.03 K/uL (0.00-0.12) 0 07/23/23 Neutrophils (%) (Auto) 81.6 % 07/22/23 Lymphocytes (%) (Auto) 9.3 % 07/22/23 Monocytes # (Auto) 0.46 K/uL (0.11-0.59) 07/22/23 Eosinophils # (Auto) 0.13 K/uL (0.00-0.50) 07/22/23 Immature Granulocyte % (Auto) 1.8 % 07/22/23 Neutrophils # (Auto) 6.82 K/uL (1.40-6.50) H 07/22/23 Lymphocytes # (Auto) 0.78 K/uL (1.20-3.40) L 07/22/23 Monocytes # (Auto) 0.46 K/uL (0.11-0.59) 07/22/23 Eosinophils # (Auto) 0.13 K/uL (0.00-0.50) 07/22/23 Basophils # (Auto) 0.02 K/uL (0.00-0.20) 07/22/23 Immature Granulocyte # (Auto) 0.15 K/uL (0.01-0.20) 3 Hyposegmented Neutrophils 1+ 07/22/23 Polychromasia 1+ 07/22/23 Basophilic Stippling 1+ 07/22/23 Anisocytosis Present 07/22/23 Tear Drop Cells 1+ 07/22/23 Stomatocytes 2+ 07/22/23 Na 138 mmol/L (136-145) 07/23/23 K 4.7 mmol/L (3.5-5.1) 07/23/23 Cl 92 mmol/L (98-107) L 07/23/23 CO2 43 mmol/L (21-32) H* 07/23/23 Anion Gap 3 (3-11) 07/23/23 BUN 38 mg/dl (6-23) H 07/23/23 Creatinine 0.85 mg/dl (0.6-1.2) 07/23/23 Estimated GFR ( Amer) 81.0 ml/min 07/23/23 Estimated GFR (Non-Af Amer) 69.9 ml/min 07/23/23 BUN/Creatinine Ratio 44.7 (10-20) H 07/23/23 Glu 176 mg/dl (70-99(Fasting)) H 07/23/23 Ca 9.4 mg/dl (8.6-10.3) 07/23/23 Total Bilirubin 0.6 mg/dl (0.2-1.0) 07/23/23 Direct Bilirubin 0.1 mg/dl (0-0.2) 07/22/23 AST 11 U/L (13-39) L 07/23/23 ALT 8 U/L (7-52) 07/23/23 Alkaline Phosphatase 83 U/L (34-104) 07/23/23 TP 7.4 gm/dl (6.0-8.3) 07/23/23 Albumin 3.7 gm/dl (3.4-5.0) 07/23/23 Globulin 3.7 gm/dl (2.5-4.0) 07/23/23 Albumin/Globulin Ratio 1.0 (0.9-2) 07/23/23 Mg 1.8 mg/dl (1.7-2.4) 07/23/23 06:46 Calcium Level 9.4 mg/dl (8.6-10.3) 07/23/23 06:46 Venous Blood pH 7.30 (7.36-7.41) L 07/22/23 17:31 Venous Blood Partial Pressure CO2 93 mmHg (38-50) H 07/22/23 17 :31 Venous Blood Partial Pressure O2 59 mmHg 07/22/23 17:31 Venous Blood HCO3 46 mmol/L 07/22/23 17:31 Venous Blood Base Excess 14.8 mEq/L 07/22/23 17:31 Venous Blood Oxygen Saturation 88.2 % 07/22/23 17:31 Diagnostic Findings (Past 24 Hours) Chest X-Ray 07/22/23 13:24 XR chest 1V portable HISTORY: Sepsis COMPARISON: Chest 07/09/2023. FINDINGS: There are low lung volumes. No pneumothorax. The cardiac silhouette remains mildly enlarged. There is a left-sided dual-chamber pacemaker. Interstitial thickening and multifocal bilateral airspace opacities have progres sed. Trace bilateral pleural effusions again noted. There are surgical clips within the upper abdomen. IMPRESSION: Interval progression of the interstitial thickening and multifocal bilateral airspace opacities. ACT 112: Negative or not required by law. Electronically signed by: Karthik Cantu M.D. 07/22/2023 2:12 PM Chest CTA 07/22/23 14:48 CT ANGIOGRAPHY OF THE CHEST, PULMONARY EMBOLUS PROTOCOL CLINICAL HISTORY: Shortness of breath COMPARISON STUDY: Chest CT May 19, 2023. Chest radiograph July 09, 2023 and July 22, 2023. TECHNIQUE: Following IV administration of 118 mL of Optiray, helical axial images of the chest were obtained utilizing the pulmonary embolus protocol. Maximal intensity projections and sagittal and coronal reformats were viewed on an independent 3D workstation. IV contrast was administered without complication. Automated exposure control was utilized for the study. A dose lowering technique was utilized adhering to the principles of ALARA. CT DOSE: 1064.73 mGy.cm FINDINGS: No pulmonary emboli are identified although the segmental and subsegmental pulmonary arteries are suboptimally assessed. There is mild dilatation of the central pulmonary arteries. There is no thoracic aortic dissection. A dual-lead left subclavian pacer is in place. There is no pericardial effusion. Mildly enlarged mediastinal and bilateral hilar lymph nodes are similar to CT of May 19, 2023. Index prevascular node on image 120 at 199 measures 1 cm short axis diameter. Index left hilar node on image 108 measures 1.4 cm. Cardiomegaly is unchanged. Small right and trace left pleural effusions have developed. There is no pneumothorax. Extensive multifocal consolidation and groundglass opacities within the lungs have progressed since CT of May 19, 2023. The central airways are patent. There is no cavitation. Old mild T5 compression deformity is unchanged. Splenomegaly is unchanged. The liver is cirrhotic. IMPRESSION: 1. No pulmonary emboli identified although segmental and subsegmental pulmonary arteries suboptimally assessed. 2. Progression of extensive multifocal consolidation and groundglass opacities within the lungs since CT of May 19, 2023. These are nonspecific. Primary considerations include multifocal pneumonia, pulmonary edema and ARDS. 3. Interval development of small right and trace left pleural effusions. 4. Moderate cardiomegaly and coronary artery calcification. Mild dilatation of the central pulmonary arteries which raises the possibility of pulmonary arterial hypertension. 5. No change in mild mediastinal and bilateral hilar lymphadenopathy. This is nonspecific and may be reactive. ACT 112: Negative or not required by law. Electronically signed by: Pro Joya M.D. 07/22/2023 3:46 PM I & O Totals 24 Hours 07/22/23 07/23/23 07/24/23 06:59 06:59 06:59 Intake Total 1050 / 1050 Output Total 1050 / 1050 Balance 0 / 0 Cumulative 07/22/23 12:39 thru 07/23/23 06:37 Intake Total 1050 Output Total 1050 Balance 0 RT Ventilator Mngmt (Last Documented) Ventilator Ordered Settings Respiratory Rate 19 07/23/23 08:06 Fraction of Inspired Oxygen 70 07/22/23 15:52 Ventilator - PT Measurements Respiratory Rate 19 PG Care Time/CCT Total # of Minutes Spent Total Time Spent with Patient: Total time spent is greater than 50% in coordination of care (as documented) at patient's floor/unit and/or counseling patient: Coding Level of Care Code 38855 INT INP/OBS CARE 3/75MIN Diagnoses Acute respiratory failure with hypoxia and hypercapnia J96.01; J96.02 Hypersensitivity pneumonitis J67.9
[2023-07-23] MEDS ORDERED: FUROSEMIDE 40 MG/4 ML VIAL IV SCH (09:00)
[2023-07-23] MEDS ORDERED: methylPREDNISolone 80 MG in SYRINGE 0 ML IV STA (09:11)
--- NOTE | 2023-07-23 11:27 | Hospitalist Progress Note ---
Date of Service July 23, 2023 Assessment & Plan (1) Acute respiratory failure with hypoxia and hypercapnia: (2) Acute dyspnea: (3) BERRY (obstructive sleep apnea): (4) Acute exacerbation of CHF (congestive heart failure): (5) Paroxysmal atrial fibrillation: (6) Pacemaker: (7) CKD (chronic kidney disease), stage III: (8) Obesity, morbid, BMI 40.0-49.9: (9) Chronic anemia: (10) GERD (gastroesophageal reflux disease): (11) HTN (hypertension): Plan: Acute on chronic respiratory failure with hypoxia and hypercarbia Chronic hypersensitivity pneumonitis Pulmonary hypertension BERRY 67-year-old female with history of chronic hypersensitive pneumonitis with multiple hospitalization presented with increasing shortness of breath. At baseline she uses 5 L of oxygen at rest. As per her outpatient pulmonology; HP panel was checked which showed sensitivity to several molds. Autoimmune panel are negative. - CT chest reviewed personally: Progression of extensive multifocal consolidation and groundglass opacities within the lungs since CT of May 19, 2023. These are nonspecific. Primary considerations include multifocal pneumonia, pulmonary edema and ARDS. Interval development of small right and trace left pleural effusions. Moderate cardiomegaly and coronary artery calcification. Mild dilatation of the central pulmonary arteries which raises the possibility of pulmonary arterial hypertension. - Patient seen by pulmonology; started on trial of high-dose steroids with 125 Solu-Medrol IV every 8 hours to see if patient will respond to that. Repeat HP panel and autoimmune panel. -Discontinue antibiotic for now. Monitor closely. Patient is afebrile, with no leukocytosis and no elevation in procalcitonin. 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 QTc of 464 Not anticoagulated due to history of chronic anemia and bleeding issues Hemolytic anemia: Follows with heme-onc, currently on prednisone 10 mg daily. Prednisone currently on hold as patient is on high-dose steroids. Hemoglobin 9.29 on admission Hold outpatient prednisone CKD stage III - chronic, stable, cr 0.78 on admission, likely volume up reflecting in her cr. GERD -Cont protonix DVT ppx: Heparin FEN/GI: General Lines: 2 PIV CODE: DNR/DNI Dispo: From home, PT OT ordered Time spent evaluating patient, direct bedside care, chart review, placing orders, interpretation of diagnostic studies, discussion with consultants, patient, and family members, as well as other required patient management activities is 60-minute Please note the above document was generated using voice recognition software. It may contain grammatical, syntax or spelling errors. Any formal questions or concerns about the content, text or information contained within the body of this dictation should be directly addressed to the provider for clarification Admission and Anticipated Discharge Date Admission Date: July 22, 2023 Subjective Patient seen and examined at bedside. She reports that she is feeling slightly better compared to yesterday. She continues to be on nonrebreather mask; saturating around 92- 95%. No overnight events. Review of Systems Review of Systems: All systems reviewed & are unremarkable except as noted in Subjective Physical Exam Physical Exam: General: awake, alert, + morbidly obese female, + Head: Normocephalic, atraumatic ENT: PERRL, EOMI, no pharyngeal exudate, mucous membranes moist Chest: Bilateral crackles heard. Cardiac: Regular rate and rhythm, +systolic murmur grade II/, no JVD, normal peripheral pulses, good capillary refill Abdominal: NABS x 4 quadrants, soft, nondistended, nontender to palpation, no rebound or guarding Extremities: Normal inspection, + minimal peripheral edema or erythema, calfs nontender to palpation, + left foot leg wound healing Psych: Normal mood and affect Neuro: AAO x 3, strength intact bilaterally and rated 5/5, no motor deficits, speech is clear, no peripheral sensory deficits Results & Data Results & Data Vital Signs (Past 12 Hours) Vital Signs Temp Pulse Pulse Resp BP Pulse Ox O2 Del Method 07/23/23 11:07 61 20 90 High Flow Nasal Cannula 07/23/23 08:00 Oxymask 07/23/23 08:06 36.4 C L 62 19 138/69 90 Oxymask 07/23/23 07:00 62 07/23/23 06:18 62 18 91 Oxymask 07/23/23 02:33 36.6 C 66 20 141/74 H 90 Oxymask 07/23/23 02:04 63 16 91 Oxymask O2 Flow Rate FiO2 07/23/23 11:07 30 80 07/23/23 08:00 15 07/23/23 08:06 15 07/23/23 07:00 07/23/23 06:18 15 07/23/23 02:33 15 07/23/23 02:04 15 Laboratory Results Laboratory Results WBC 6.57 K/ul (4.8-10.8) 07/23/23 06:46 RBC 2.97 M/uL (4.20-5.40) L 07/23/23 06:46 Hgb 7.9 g/dl (12.0-16.0) L 07/23/23 06:46 Hct 26.9 % (37.0-47.0) L 07/23/23 06:46 MCV 90.6 fL (80.0-100.0) 07/23/23 06:46 MCH 26.6 pg (25.0-34.0) 07/23/23 06:46 MCHC 29.4 g/dL (32.0-36.0) L 07/23/23 06:46 RDW Std Deviation 69.2 fL (36.4-46.3) H 07/23/23 06:46 RDW Coeff of Patrica 20.8 % (11.5-14.5) H 07/23/23 06:46 Plt Count 130 K/uL (130-400) 07/23/23 06:46 MPV 10.4 fL (9.4-12.4) 07/23/23 06:46 Immature Gran % (Auto) 1.8 % 07/22/23 12:39 Neut % (Auto) 81.6 % 07/22/23 12:39 Lymph % (Auto) 9.3 % 07/22/23 12:39 [place] % (Auto) 5.5 % 07/22/23 12:39 Eos % (Auto) 1.6 % 07/22/23 12:39 Baso % (Auto) 0.2 % 07/22/23 12:39 Neut # (Auto) 6.82 K/uL (1.40-6.50) H 07/22/23 12:39 Lymph # (Auto) 0.78 K/uL (1.20-3.40) L 07/22/23 12:39 [place] # (Auto) 0.46 K/uL (0.11-0.59) 07/22/23 12:39 Eos # (Auto) 0.13 K/uL (0.00-0.50) 07/22/23 12:39 Baso # (Auto) 0.02 K/uL (0.00-0.20) 07/22/23 12:39 Immature Gran # (Auto) 0.15 K/uL (0.01-0.20) 07/22/23 12:39 Absolute Nucleated RBC 0.03 K/uL (0.00-0.12) 07/23/23 06:46 Nucleated RBC % (auto) 0.5 % 07/23/23 06:46 Hyposegmented Neuts 1+ 07/22/23 12:39 Polychromasia 1+ 07/22/23 12:39 Basophilic Stippling 1+ 07/22/23 12:39 Anisocytosis Present 07/22/23 12:39 Tear Drop Cells 1+ 07/22/23 12:39 Stomatocytes 2+ 07/22/23 12:39 ESR 79 mm/hr (0-30) H 07/23/23 09:14 VBG pH 7.30 (7.36-7.41) L 07/22/23 17:31 VBG pCO2 93 mmHg (38-50) H 07/22/23 17:31 VBG pO2 59 mmHg 07/22/23 17:31 VBG HCO3 46 mmol/L 07/22/23 17:31 VBG O2 Saturation 88.2 % 07/22/23 17:31 VBG Base Excess 14.8 mEq/L 07/22/23 17:31 Sodium 138 mmol/L (136-145) 07/23/23 06:46 Potassium 4.7 mmol/L (3.5-5.1) 07/23/23 06:46 Chloride 92 mmol/L (98-107) L 07/23/23 06:46 Carbon Dioxide 43 mmol/L (21-32) H* 07/23/23 06:46 Anion Gap 3 (3-11) 07/23/23 06:46 BUN 38 mg/dl (6-23) H 07/23/23 06:46 Creatinine 0.85 mg/dl (0.6-1.2) 07/23/23 06:46 Est Cr Clr Drug Dosing 76.1 ml/min 07/23/23 06:46 Est GFR ( Amer) 81.0 ml/min 07/23/23 06:46 Est GFR (Non-Af Amer) 69.9 ml/min 07/23/23 06:46 BUN/Creatinine Ratio 44.7 (10-20) H 07/23/23 06:46 Glucose 176 mg/dl (70-99(Fasting)) H 07/23/23 06:46 Lactate 0.8 mmol/L (0.4-2.0) 07/22/23 Unknown Calcium 9.4 mg/dl (8.6-10.3) 07/23/23 06:46 Magnesium 1.8 mg/dl (1.7-2.4) 07/23/23 06:46 Total Bilirubin 0.6 mg/dl (0.2-1.0) 07/23/23 06:46 Direct Bilirubin 0.1 mg/dl (0-0.2) 07/22/23 12:39 AST 11 U/L (13-39) L 07/23/23 06:46 ALT 8 U/L (7-52) 07/23/23 06:46 Alkaline Phosphatase 83 U/L (34-104) 07/23/23 06:46 Troponin I High Sens 7.3 pg/ml (0-14) 07/22/23 12:39 C-Reactive Protein 2.90 mg/dl (0-0.5) H 07/23/23 09:14 B-Natriuretic Peptide 325 pg/ml (0-100) H 07/22/23 12:39 Total Protein 7.4 gm/dl (6.0-8.3) 07/23/23 06:46 Albumin 3.7 gm/dl (3.4-5.0) 07/23/23 06:46 Globulin 3.7 gm/dl (2.5-4.0) 07/23/23 06:46 Albumin/Globulin Ratio 1.0 (0.9-2) 07/23/23 06:46 Procalcitonin 0.05 ng/ml (0-0.5) 07/22/23 12:39 Urine Color Yellow 07/22/23 Unknown Urine Appearance Clear (Clear) 07/22/23 Unknown Urine pH 6.0 (4.5-7.5) 07/22/23 Unknown Ur Specific [place] 1.016 (1.000-1.030) 07/22/23 Unknown Urine Protein Negative (Negative) 07/22/23 Unknown Urine Glucose (UA) Negative (Negative) 07/22/23 Unknown Urine Ketones Negative (Negative) 07/22/23 Unknown Urine Blood Negative (Negative) 07/22/23 Unknown Urine Nitrite Negative (Negative) 07/22/23 Unknown Urine Bilirubin Negative (Negative) 07/22/23 Unknown Urine Urobilinogen Negative (Negative) 07/22/23 Unknown Ur Leukocyte Esterase 1+ (Negative) H 07/22/23 Unknown Urine WBC (Auto) 5-10 /hpf (0-5) H 07/22/23 Unknown Urine RBC (Auto) 0-4 /hpf (0-4) 07/22/23 Unknown U Hyaline Cast (Auto) 0 /lpf (0-5) 07/22/23 Unknown U Epithel Cells (Auto) 0-5 /lpf (0-5) 07/22/23 Unknown Urine Bacteria (Auto) Negative (Negative) 07/22/23 Unknown Adenovirus (PCR) Not Detected (NotDetected) 07/22/23 17:31 B. pertussis DNA (PCR) Not Detected (NotDetected) 07/22/23 17:31 B.parapertussis DNA PCR Not Detected (NotDetected) 07/22/23 17:31 C. pneumoniae DNA (PCR) Not Detected (NotDetected) 07/22/23 17:31 Coronavirus OC43 (PCR) Not Detected (NotDetected) 07/22/23 17:31 Coronavirus HKU1 (PCR) Not Detected (NotDetected) 07/22/23 17:31 Coronavirus 229E (PCR) Not Detected (NotDetected) 07/22/23 17:31 SARS-CoV-2 (PCR) Not Detected (NotDetected) 07/22/23 17:31 Coronavirus NL63 (PCR) Not Detected (NotDetected) 07/22/23 17:31 Human Metapneumovir PCR Not Detected (NotDetected) 07/22/23 17:31 Influenza Type A (PCR) Not Detected (NotDetected) 07/22/23 17:31 Influenza Type B (PCR) Not Detected (NotDetected) 07/22/23 17:31 M. pneumoniae (PCR) Not Detected (NotDetected) 07/22/23 17:31 Parainfluenza 1 (PCR) Not Detected (NotDetected) 07/22/23 17:31 Parainfluenza 2 (PCR) Not Detected (NotDetected) 07/22/23 17:31 Parainfluenza 3 (PCR) Not Detected (NotDetected) 07/22/23 17:31 Parainfluenza 4 (PCR) Not Detected (NotDetected) 07/22/23 17:31 RSV (PCR) Not Detected (NotDetected) 07/22/23 17:31 Entero/Rhino (PCR) Not Detected (NotDetected) 07/22/23 17:31 Impressions Chest X-Ray 07/22/23 13:24 XR chest 1V portable HISTORY: Sepsis COMPARISON: Chest 07/09/2023. FINDINGS: There are low lung volumes. No pneumothorax. The cardiac silhouette remains mildly enlarged. There is a left-sided dual-chamber pacemaker. Interstitial thickening and multifocal bilateral airspace opacities have progressed. Trace bilateral pleural effusions again noted. There are surgical clips within the upper abdomen. IMPRESSION: Interval progression of the interstitial thickening and multifocal bilateral airspace opacities. ACT 112: Negative or not required by law. Electronically signed by: Karthik Cantu M.D. 07/22/2023 2:12 PM Chest CTA 07/22/23 14:48 CT ANGIOGRAPHY OF THE CHEST, PULMONARY EMBOLUS PROTOCOL CLINICAL HISTORY: Shortness of breath COMPARISON STUDY: Chest CT May 19, 2023. Chest radiograph July 09, 2023 and July 22, 2023. TECHNIQUE: Following IV administration of 118 mL of Optiray, helical axial images of the chest were obtained utilizing the pulmonary embolus protocol. Maximal intensity projections and sagittal and coronal reformats were viewed on an independent 3D workstation. IV contrast was administered without complication. Automated exposure control was utilized for the study. A dose lowering technique was utilized adhering to the principles of ALARA. CT DOSE: 1064.73 mGy.cm FINDINGS: No pulmonary emboli are identified although the segmental and subsegmental pulmonary arteries are suboptimally assessed. There is mild dilatation of the central pulmonary arteries. There is no thoracic aortic dissection. A dual-lead left subclavian pacer is in place. There is no pericardial effusion. Mildly enlarged mediastinal and bilateral hilar lymph nodes are similar to CT of May 19, 2023. Index prevascular node on image 120 at 199 measures 1 cm short axis diameter. Index left hilar node on image 108 measures 1.4 cm. Cardiomegaly is unchanged. Small right and trace left pleural effusions have developed. There is no pneumothorax. Extensive multifocal consolidation and groundglass opacities within the lungs have progressed since CT of May 19, 2023. The central airways are patent. There is no cavitation. Old mild T5 compression deformity is unchanged. Splenomegaly is unchanged. The liver is cirrhotic. IMPRESSION: 1. No pulmonary emboli identified although segmental and subsegmental pulmonary arteries suboptimally assessed. 2. Progression of extensive multifocal consolidation and groundglass opacities within the lungs since CT of May 19, 2023. These are nonspecific. Primary considerations include multifocal pneumonia, pulmonary edema and ARDS. 3. Interval development of small right and trace left pleural effusions. 4. Moderate cardiomegaly and coronary artery calcification. Mild dilatation of the central pulmonary arteries which raises the possibility of pulmonary arterial hypertension. 5. No change in mild mediastinal and bilateral hilar lymphadenopathy. This is nonspecific and may be reactive. ACT 112: Negative or not required by law. Electronically signed by: Pro Joya M.D. 07/22/2023 3:46 PM (10) GERD (gastroesophageal reflux disease) Esophagitis presence: without esophagitis Qualified Code(s): K21.9 - Gastro- esophageal reflux disease without esophagitis (11) HTN (hypertension) Hypertension type: unspecified Qualified Code(s): I10 - Essential (primary) hypertension
[2023-07-23] MEDS: HEPARIN SOD 5,000 UNIT/0.5 ML VIAL SQ SCH ×2 (14:37→21:22)
[2023-07-23] MEDS: methylPREDNISolone 125 MG in SYRINGE 0 ML IV SCH ×2 (17:06→23:46)
[2023-07-23] MEDS: LORazepam 0.5 MG TAB PO PRN (19:34)
[2023-07-23] MEDS: MONTELUKAST SODIUM 10 MG TABLET PO SCH (21:23)
[2023-07-24] MEDS: ALBUT/IPRATROP 3MG/0.5MG NEB 3 ML VIAL NEB SCH ×6 (02:03→22:15)
[2023-07-24] MEDS: HEPARIN SOD 5,000 UNIT/0.5 ML VIAL SQ SCH ×3 (05:29→21:10)
[2023-07-24 06:25] LABS: Basophils # (auto) 0.01 K/uL (0.00-0.20); Basophils % (auto) 0.2 %; Hematocrit (blood only) 25.3 % (37.0-47.0); Hemoglobin 7.4 g/dl (12.0-16.0); Immature Granulocytes # (auto) 0.07 K/uL (0.01-0.20); Immature Granulocytes % (auto) 1.6 %; Lymphocytes # (auto) 0.32 K/uL (1.20-3.40); Lymphocytes % (auto) 7.4 %; Mean Corpuscular Hemoglobin 26.1 pg (25.0-34.0); Mean Corpuscular Hgb Conc 29.2 g/dL (32.0-36.0); Mean Corpuscular Volume 89.4 fL (80.0-100.0); Mean Platelet Volume 11.4 fL (9.4-12.4); Monocytes # (auto) 0.19 K/uL (0.11-0.59); Monocytes % (auto) 4.4 %; Neutrophils # (auto) 3.72 K/uL (1.40-6.50); Neutrophils % (auto) 86.4 %; Nucleated RBC # (auto) 0.05 K/uL (0.00-0.12); Nucleated RBC % (auto) 1.2 %; Platelet Count 132 K/uL (130-400); RDW Coefficient of Variation 20.1 % (11.5-14.5); RDW Standard Deviation 66.4 fL (36.4-46.3); Red Blood Count 2.83 M/uL (4.20-5.40); White Blood Count 4.31 K/ul (4.8-10.8)
[2023-07-24 06:44] LABS: Albumin Globulin Ratio 1.1 (0.9-2); Albumin Level 3.5 gm/dl (3.4-5.0); BUN Creatinine Ratio 47.4 (10-20); Bilirubin,Total 0.5 mg/dl (0.2-1.0); Calcium 9.4 mg/dl (8.6-10.3); Est GFR (African American) 89.9 ml/min; Est GFR (Non-African American) 77.6 ml/min; Globulin 3.3 gm/dl (2.5-4.0); Potassium 4.6 mmol/L (3.5-5.1); Total Protein 6.8 gm/dl (6.0-8.3)
[2023-07-24 07:02] LABS: Anisocytosis Present; Polychromasia 1+; Stomatocytes 1+; Tear Drop Cells 1+
[2023-07-24] MEDS: SODIUM CHLOR 7% 4 ML NEB NEB SCH ×2 (07:22→19:08)
[2023-07-24] MEDS: methylPREDNISolone 125 MG in SYRINGE 0 ML IV SCH ×2 (08:08→15:54)
[2023-07-24] MEDS: amLODIPine BESYLATE 5 MG TAB PO SCH (08:09)
[2023-07-24] MEDS: guaiFENesin 600 MG TABCR PO SCH ×2 (08:09→21:10)
[2023-07-24] MEDS: DOCUSATE SODIUM 100 MG CAP PO SCH ×2 (08:09→21:11)
[2023-07-24] MEDS: FOLIC ACID 1 MG TAB PO SCH (08:09)
[2023-07-24] MEDS: MAGNESIUM CHLORIDE W/CALCIUM 64MG DELAYED REL TAB PO SCH ×2 (08:09→21:09)
[2023-07-24] MEDS: SOTALOL HCL 80 MG TAB PO SCH ×2 (08:09→21:11)
[2023-07-24] MEDS: SERTRALINE HCL 100 MG TABLET PO SCH (08:09)
[2023-07-24] MEDS: PANTOprazole 40 MG TAB PO SCH ×2 (08:09→21:10)
[2023-07-24] MEDS: CHOLECALCIFEROL 1,000 UNITS 25 MCG TAB PO SCH (08:09)
[2023-07-24] MEDS: LORATADINE 10 MG TAB PO SCH (08:09)
[2023-07-24] MEDS: GABAPENTIN 300 MG CAP PO SCH ×3 (08:10→21:08)
[2023-07-24] MEDS: LORazepam 0.5 MG TAB PO PRN (08:39)
--- NOTE | 2023-07-24 08:56 | Pulmonology Progress Note ---
Date of Service July 24, 2023 Assessment & Plan (1) Acute respiratory failure with hypoxia and hypercapnia: (2) Hypersensitivity pneumonitis: Plan Impression: 67-year-old female with history of hypersensitivity pneumonitis. Unclear how the diagnosis was made or what the offending agent is but she has had recurrent hospitalizations with progressive infiltrates. She is been treated aggressively with antibiotics with no significant improvement and is now both hypoxemic and hypercarbic. Her current oxygen requirement and respiratory status would preclude bronchoscopy at this point time. She is currently being treated for potentially reversible etiologies with high-dose steroids. Recommendations: 1. Hypersensitivity pneumonitis: Continue high-dose steroids (125 mg Solu- Medrol IV every 8) and see how she does. If she responds favorably, consideration for the addition of a steroid sparing agent such as mycophenolate or azathioprine might be appropriate. Repeat serologies are pending. If chronic steroids are entertained, PJP prophylaxis will need to be initiated 2. Unclear how much of this process is reversible but the patient clearly has shown evidence of clinical decline over the last several weeks. 3. Hypoxemic and hypercarbic respiratory failure. Given her significant hypercarbia would not try and target oxygen saturations much above 88 to 89%. Continue empiric CPAP overnight and as needed during the day. If the patient is not willing or able to tolerate CPAP, the only other alternative would be tracheostomy with long-term ventilatory support which the patient is not in agreement with. She understands the potential risks and does not want to pursue aggressive interventions. 4. Weight loss would ultimately be beneficial. 5. Given the patient's anemia (questionable hemolytic). This does raise the possibility for other potential etiologies involving the pulmonary infiltrates. Again bronchoscopy with biopsy and BAL would be beneficial however her respiratory status would preclude any additional invasive respiratory procedures at this time. We will treat empirically in the hopes that the patient has clinical improvement. Given her leukopenia and anemia, hematology consultation may be appropriate. The above recommendations and plan were extensively discussed with the patient at bedside. Questions were answered to the best my ability. She expressed understanding and is in agreement with the plan as outlined. Admission and Anticipated Discharge Date Admission Date: July 22, 2023 Subjective Patient seen and examined. EMR reviewed. The patient is transition to high flow. Per discussion with the nurse, they had issues overnight maintaining her oxygen saturation. She reports she did use her positive airway pressure overnight. She is coughing but not expectorating any phlegm. She denies fevers or chills. No night sweats. No other constitutional symptoms. Apparently there are palliative care discussions in the works for today. Review of Systems Review of Systems: All systems reviewed & are unremarkable except as noted in Subjective Physical Exam 2 Constitutional: WD/WN, vitals as above Eyes: PERRL, conjunctivae normal, anicteric sclerae ENMT: external ear and nose normal, oropharynx normal Neck: trachea midline, no thyromegaly Cardiovascular: RRR, no murmur, no edema Rate/Rhythm: regular rate and regular rhythm Gastrointestinal (Abdomen): normal bowel sounds, soft, nontender, no hepatosplenomegaly Musculoskeletal: no cyanosis or clubbing, extremities motor strength 5/5 Neurologic: patellar DTR's 2+ bilat, sensation intact and PERRL, EOMI, accommodation nl, no face palsy, no dysarthria Psychiatric: A+Ox3, euthymic affect Results & Data Results & Data Vital Signs (Past 12 Hours) Vital Signs Temp Pulse Pulse Resp BP BP Pulse Ox 07/24/23 07:17 36.8 C 66 18 132/76 92 07/24/23 07:00 65 07/24/23 07:23 21 95 07/24/23 03:36 19 93 07/24/23 03:32 36.8 C 63 18 126/70 93 07/24/23 02:38 66 07/24/23 00:34 93 07/24/23 00:19 66 07/23/23 23:44 38.0 C H 67 18 133/80 95 07/23/23 22:15 66 20 91 07/23/23 22:11 66 20 91 07/23/23 21:30 O2 Del Method O2 Flow Rate FiO2 07/24/23 07:17 High Flow Nasal Cannula 25 70 07/24/23 07:00 07/24/23 07:23 High Flow Nasal Cannula 30 75 07/24/23 03:36 High Flow Nasal Cannula 30 75 07/24/23 03:32 High Flow Nasal Cannula 30 75 07/24/23 02:38 High Flow Nasal Cannula 30 100 07/24/23 00:34 High Flow Nasal Cannula 30 80 07/24/23 00:19 07/23/23 23:44 High Flow Nasal Cannula 30 07/23/23 22:15 High Flow Nasal Cannula 30 85 07/23/23 22:11 High Flow Nasal Cannula 30 85 07/23/23 21:30 High Flow Nasal Cannula 30 Laboratory Results 07/24/23 05:28 07/24/23 05:28 ESR 79 BNP 325 CRP 2.99 serologies pending Diagnostic Findings No new imaging PG Care Time/CCT Total # of Minutes Spent Total Time Spent with Patient: Total time spent is greater than 50% in coordination of care (as documented) at patient's floor/unit and/or counseling patient: Coding Level of Care Code 61526 SUB INP/OBS CARE 2/35MIN Diagnoses Acute respiratory failure with hypoxia and hypercapnia J96.01; J96.02 Hypersensitivity pneumonitis J67.9
[2023-07-24] MEDS ORDERED: SODIUM CHLORIDE 0.9% 250 ML IV PRN (10:50)
--- NOTE | 2023-07-24 10:55 | Hospitalist Progress Note ---
Date of Service July 24, 2023 Assessment & Plan (1) Acute respiratory failure with hypoxia and hypercapnia: (2) Acute dyspnea: (3) BERRY (obstructive sleep apnea): (4) Acute exacerbation of CHF (congestive heart failure): (5) Paroxysmal atrial fibrillation: (6) Pacemaker: (7) CKD (chronic kidney disease), stage III: (8) Obesity, morbid, BMI 40.0-49.9: (9) Chronic anemia: (10) GERD (gastroesophageal reflux disease): (11) HTN (hypertension): Plan: Acute on chronic respiratory failure with hypoxia and hypercarbia Chronic hypersensitivity pneumonitis Pulmonary hypertension BERRY 67-year-old female with history of chronic hypersensitive pneumonitis with multiple hospitalization presented with increasing shortness of breath. At baseline she uses 5 L of oxygen at rest. As per her outpatient pulmonology; HP panel was checked which showed sensitivity to several molds. Autoimmune panel are negative. - CT chest reviewed personally: Progression of extensive multifocal consolidation and groundglass opacities within the lungs since CT of May 19, 2023. These are nonspecific. Primary considerations include multifocal pneumonia, pulmonary edema and ARDS. Interval development of small right and trace left pleural effusions. Moderate cardiomegaly and coronary artery calcification. Mild dilatation of the central pulmonary arteries which raises the possibility of pulmonary arterial hypertension. -Wean down oxygen as tolerated to keep SPO2 around 88 to 89%. - Patient seen by pulmonology; started on trial of high-dose steroids with 125 Solu-Medrol IV every 8 hours since July 23 to see if patient will respond to that. Repeat HP panel and autoimmune panel. -Discontinue antibiotic for now. Monitor closely. Patient is afebrile, with no leukocytosis and no elevation in procalcitonin. 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 QTc of 464 Not anticoagulated due to history of chronic anemia and bleeding issues Hemolytic anemia: Follows with heme-onc, currently on prednisone 10 mg daily. Prednisone currently on hold as patient is on high-dose steroids. Hemoglobin down trended.Hemoglobin is 7.4. We will transfuse 1 unit of blood Hold outpatient prednisone CKD stage III - chronic, stable, cr 0.78 on admission, likely volume up reflecting in her cr. GERD -Cont protonix DVT ppx: Heparin FEN/GI: General Lines: 2 PIV CODE: DNR/DNI Dispo: From home, PT OT ordered. Patient is open to going to rehab. Time spent evaluating patient, direct bedside care, chart review, placing orders, interpretation of diagnostic studies, discussion with consultants, patient, and family members, as well as other required patient management activities is 60-minute Please note the above document was generated using voice recognition software. It may contain grammatical, syntax or spelling errors. Any formal questions or concerns about the content, text or information contained within the body of this dictation should be directly addressed to the provider for clarification Admission and Anticipated Discharge Date Admission Date: July 22, 2023 Subjective Patient seen and examined at bedside. She was sitting up on the bed; not in distress. She reports that her breathing is slightly better compared to admission. No overnight events. Review of Systems Review of Systems: All systems reviewed & are unremarkable except as noted in Subjective Physical Exam Physical Exam: General: awake, alert, + morbidly obese female, + Head: Normocephalic, atraumatic ENT: PERRL, EOMI, no pharyngeal exudate, mucous membranes moist Chest: Bilateral crackles heard. Cardiac: Regular rate and rhythm, +systolic murmur grade II/, no JVD, normal peripheral pulses, good capillary refill Abdominal: NABS x 4 quadrants, soft, nondistended, nontender to palpation, no rebound or guarding Extremities: Normal inspection, + minimal peripheral edema or erythema, calfs nontender to palpation, + left foot leg wound healing Psych: Normal mood and affect Neuro: AAO x 3, strength intact bilaterally and rated 5/5, no motor deficits, speech is clear, no peripheral sensory deficits Results & Data Results & Data Vital Signs (Past 12 Hours) Vital Signs Temp Pulse Pulse Resp BP BP Pulse Ox 07/24/23 07:17 36.8 C 66 18 132/76 92 07/24/23 07:00 65 07/24/23 07:23 21 95 07/24/23 03:36 19 93 07/24/23 03:32 36.8 C 63 18 126/70 93 07/24/23 02:38 66 07/24/23 00:34 93 07/24/23 00:19 66 07/23/23 23:44 38.0 C H 67 18 133/80 95 O2 Del Method O2 Flow Rate FiO2 07/24/23 07:17 High Flow Nasal Cannula 25 70 07/24/23 07:00 07/24/23 07:23 High Flow Nasal Cannula 30 75 07/24/23 03:36 High Flow Nasal Cannula 30 75 07/24/23 03:32 High Flow Nasal Cannula 30 75 07/24/23 02:38 High Flow Nasal Cannula 30 100 07/24/23 00:34 High Flow Nasal Cannula 30 80 07/24/23 00:19 07/23/23 23:44 High Flow Nasal Cannula 30 Laboratory Results Laboratory Results WBC 4.31 K/ul (4.8-10.8) L 07/24/23 05:28 RBC 2.83 M/uL (4.20-5.40) L 07/24/23 05:28 Hgb 7.4 g/dl (12.0-16.0) L 07/24/23 05:28 Hct 25.3 % (37.0-47.0) L 07/24/23 05:28 MCV 89.4 fL (80.0-100.0) 07/24/23 05:28 MCH 26.1 pg (25.0-34.0) 07/24/23 05:28 MCHC 29.2 g/dL (32.0-36.0) L 07/24/23 05:28 RDW Std Deviation 66.4 fL (36.4-46.3) H 07/24/23 05:28 RDW Coeff of Patrica 20.1 % (11.5-14.5) H 07/24/23 05:28 Plt Count 132 K/uL (130-400) 07/24/23 05:28 MPV 11.4 fL (9.4-12.4) 07/24/23 05:28 Immature Gran % (Auto) 1.6 % 07/24/23 05:28 Neut % (Auto) 86.4 % 07/24/23 05:28 Lymph % (Auto) 7.4 % 07/24/23 05:28 [place] % (Auto) 4.4 % 07/24/23 05:28 Eos % (Auto) 0.0 % 07/24/23 05:28 Baso % (Auto) 0.2 % 07/24/23 05:28 Neut # (Auto) 3.72 K/uL (1.40-6.50) 07/24/23 05:28 Lymph # (Auto) 0.32 K/uL (1.20-3.40) L 07/24/23 05:28 [place] # (Auto) 0.19 K/uL (0.11-0.59) 07/24/23 05:28 Eos # (Auto) 0.00 K/uL (0.00-0.50) 07/24/23 05:28 Baso # (Auto) 0.01 K/uL (0.00-0.20) 07/24/23 05:28 Immature Gran # (Auto) 0.07 K/uL (0.01-0.20) 07/24/23 05:28 Absolute Nucleated RBC 0.05 K/uL (0.00-0.12) 07/24/23 05:28 Nucleated RBC % (auto) 1.2 % 07/24/23 05:28 Hyposegmented Neuts 1+ 07/22/23 12:39 Polychromasia 1+ 07/24/23 05:28 Basophilic Stippling 1+ 07/22/23 12:39 Anisocytosis Present 07/24/23 05:28 Tear Drop Cells 1+ 07/24/23 05:28 Stomatocytes 1+ 07/24/23 05:28 ESR 79 mm/hr (0-30) H 07/23/23 09:14 VBG pH 7.30 (7.36-7.41) L 07/22/23 17:31 VBG pCO2 93 mmHg (38-50) H 07/22/23 17:31 VBG pO2 59 mmHg 07/22/23 17:31 VBG HCO3 46 mmol/L 07/22/23 17:31 VBG O2 Saturation 88.2 % 07/22/23 17:31 VBG Base Excess 14.8 mEq/L 07/22/23 17:31 Sodium 137 mmol/L (136-145) 07/24/23 05:28 Potassium 4.6 mmol/L (3.5-5.1) 07/24/23 05:28 Chloride 92 mmol/L (98-107) L 07/24/23 05:28 Carbon Dioxide 40 mmol/L (21-32) H 07/24/23 05:28 Anion Gap 5 (3-11) 07/24/23 05:28 BUN 37 mg/dl (6-23) H 07/24/23 05:28 Creatinine 0.78 mg/dl (0.6-1.2) 07/24/23 05:28 Est Cr Clr Drug Dosing 83.0 ml/min 07/24/23 05:28 Est GFR ( Amer) 89.9 ml/min 07/24/23 05:28 Est GFR (Non-Af Amer) 77.6 ml/min 07/24/23 05:28 BUN/Creatinine Ratio 47.4 (10-20) H 07/24/23 05:28 Glucose 168 mg/dl (70-99(Fasting)) H 07/24/23 05:28 Lactate 0.8 mmol/L (0.4-2.0) 07/22/23 Unknown Calcium 9.4 mg/dl (8.6-10.3) 07/24/23 05:28 Magnesium 1.8 mg/dl (1.7-2.4) 07/23/23 06:46 Total Bilirubin 0.5 mg/dl (0.2-1.0) 07/24/23 05:28 Direct Bilirubin 0.1 mg/dl (0-0.2) 07/22/23 12:39 AST 11 U/L (13-39) L 07/24/23 05:28 ALT 7 U/L (7-52) 07/24/23 05:28 Alkaline Phosphatase 70 U/L (34-104) 07/24/23 05:28 Troponin I High Sens 7.3 pg/ml (0-14) 07/22/23 12:39 C-Reactive Protein 2.90 mg/dl (0-0.5) H 07/23/23 09:14 B-Natriuretic Peptide 325 pg/ml (0-100) H 07/22/23 12:39 Total Protein 6.8 gm/dl (6.0-8.3) 07/24/23 05:28 Albumin 3.5 gm/dl (3.4-5.0) 07/24/23 05:28 Globulin 3.3 gm/dl (2.5-4.0) 07/24/23 05:28 Albumin/Globulin Ratio 1.1 (0.9-2) 07/24/23 05:28 Procalcitonin 0.05 ng/ml (0-0.5) 07/22/23 12:39 Urine Color Yellow 07/22/23 Unknown Urine Appearance Clear (Clear) 07/22/23 Unknown Urine pH 6.0 (4.5-7.5) 07/22/23 Unknown Ur Specific [place] 1.016 (1.000-1.030) 07/22/23 Unknown Urine Protein Negative (Negative) 07/22/23 Unknown Urine Glucose (UA) Negative (Negative) 07/22/23 Unknown Urine Ketones Negative (Negative) 07/22/23 Unknown Urine Blood Negative (Negative) 07/22/23 Unknown Urine Nitrite Negative (Negative) 07/22/23 Unknown Urine Bilirubin Negative (Negative) 07/22/23 Unknown Urine Urobilinogen Negative (Negative) 07/22/23 Unknown Ur Leukocyte Esterase 1+ (Negative) H 07/22/23 Unknown Urine WBC (Auto) 5-10 /hpf (0-5) H 07/22/23 Unknown Urine RBC (Auto) 0-4 /hpf (0-4) 07/22/23 Unknown U Hyaline Cast (Auto) 0 /lpf (0-5) 07/22/23 Unknown U Epithel Cells (Auto) 0-5 /lpf (0-5) 07/22/23 Unknown Urine Bacteria (Auto) Negative (Negative) 07/22/23 Unknown Adenovirus (PCR) Not Detected (NotDetected) 07/22/23 17:31 B. pertussis DNA (PCR) Not Detected (NotDetected) 07/22/23 17:31 B.parapertussis DNA PCR Not Detected (NotDetected) 07/22/23 17:31 C. pneumoniae DNA (PCR) Not Detected (NotDetected) 07/22/23 17:31 Coronavirus OC43 (PCR) Not Detected (NotDetected) 07/22/23 17:31 Coronavirus HKU1 (PCR) Not Detected (NotDetected) 07/22/23 17:31 Coronavirus 229E (PCR) Not Detected (NotDetected) 07/22/23 17:31 SARS-CoV-2 (PCR) Not Detected (NotDetected) 07/22/23 17:31 Coronavirus NL63 (PCR) Not Detected (NotDetected) 07/22/23 17:31 Human Metapneumovir PCR Not Detected (NotDetected) 07/22/23 17:31 Influenza Type A (PCR) Not Detected (NotDetected) 07/22/23 17:31 Influenza Type B (PCR) Not Detected (NotDetected) 07/22/23 17:31 M. pneumoniae (PCR) Not Detected (NotDetected) 07/22/23 17:31 Parainfluenza 1 (PCR) Not Detected (NotDetected) 07/22/23 17:31 Parainfluenza 2 (PCR) Not Detected (NotDetected) 07/22/23 17:31 Parainfluenza 3 (PCR) Not Detected (NotDetected) 07/22/23 17:31 Parainfluenza 4 (PCR) Not Detected (NotDetected) 07/22/23 17:31 RSV (PCR) Not Detected (NotDetected) 07/22/23 17:31 Entero/Rhino (PCR) Not Detected (NotDetected) 07/22/23 17:31 Impressions Chest X-Ray 07/22/23 13:24 XR chest 1V portable HISTORY: Sepsis COMPARISON: Chest 07/09/2023. FINDINGS: There are low lung volumes. No pneumothorax. The cardiac silhouette remains mildly enlarged. There is a left-sided dual-chamber pacemaker. Interstitial thickening and multifocal bilateral airspace opacities have progressed. Trace bilateral pleural effusions again noted. There are surgical clips within the upper abdomen. IMPRESSION: Interval progression of the interstitial thickening and multifocal bilateral airspace opacities. ACT 112: Negative or not required by law. Electronically signed by: Karthik Cantu M.D. 07/22/2023 2:12 PM Chest CTA 07/22/23 14:48 CT ANGIOGRAPHY OF THE CHEST, PULMONARY EMBOLUS PROTOCOL CLINICAL HISTORY: Shortness of breath COMPARISON STUDY: Chest CT May 19, 2023. Chest radiograph July 09, 2023 and July 22, 2023. TECHNIQUE: Following IV administration of 118 mL of Optiray, helical axial images of the chest were obtained utilizing the pulmonary embolus protocol. Maximal intensity projections and sagittal and coronal reformats were viewed on an independent 3D workstation. IV contrast was administered without complication. Automated exposure control was utilized for the study. A dose lowering technique was utilized adhering to the principles of ALARA. CT DOSE: 1064.73 mGy.cm FINDINGS: No pulmonary emboli are identified although the segmental and subsegmental pulmonary arteries are suboptimally assessed. There is mild dila tation of the central pulmonary arteries. There is no thoracic aortic dissection. A dual-lead left subclavian pacer is in place. There is no pericardial effusion. Mildly enlarged mediastinal and bilateral hilar lymph nodes are similar to CT of May 19, 2023. Index prevascular node on image 120 at 199 measures 1 cm short axis diameter. Index left hilar node on image 108 measures 1.4 cm. Cardiomegaly is unchanged. Small right and trace left pleural effusions have developed. There is no pneumothorax. Extensive multifocal consolidation and groundglass opacities within the lungs have progressed since CT of May 19, 2023. The central airways are patent. There is no cavitation. Old mild T5 compression deformity is unchanged. Splenomegaly is unchanged. The liver is cirrhotic. IMPRESSION: 1. No pulmonary emboli identified although segmental and subsegmental pulmonary arteries suboptimally assessed. 2. Progression of extensive multifocal consolidation and groundglass opacities within the lungs since CT of May 19, 2023. These are nonspecific. Primary considerations include multifocal pneumonia, pulmonary edema and ARDS. 3. Interval development of small right and trace left pleural effusions. 4. Moderate cardiomegaly and coronary artery calcification. Mild dilatation of the central pulmonary arteries which raises the possibility of pulmonary arterial hypertension. 5. No change in mild mediastinal and bilateral hilar lymphadenopathy. This is nonspecific and may be reactive. ACT 112: Negative or not required by law. Electronically signed by: Pro Joya M.D. 07/22/2023 3:46 PM (10) GERD (gastroesophageal reflux disease) Esophagitis presence: without esophagitis Qualified Code(s): K21.9 - Gastro- esophageal reflux disease without esophagitis (11) HTN (hypertension) Hypertension type: unspecified Qualified Code(s): I10 - Essential (primary) hypertension
[2023-07-24] MEDS: MONTELUKAST SODIUM 10 MG TABLET PO SCH (21:09)
[2023-07-25] MEDS: methylPREDNISolone 125 MG in SYRINGE 0 ML IV SCH ×3 (00:53→17:21)
[2023-07-25] MEDS: ALBUT/IPRATROP 3MG/0.5MG NEB 3 ML VIAL NEB SCH ×6 (02:01→22:31)
[2023-07-25] MEDS: HEPARIN SOD 5,000 UNIT/0.5 ML VIAL SQ SCH ×3 (06:06→21:06)
[2023-07-25 07:11] LABS: Hematocrit (blood only) 29.4 % (37.0-47.0); Hemoglobin 8.9 g/dl (12.0-16.0); Immature Granulocytes % (auto) 1.4 %; Lymphocytes # (auto) 0.35 K/uL (1.20-3.40); Lymphocytes % (auto) 4.8 %; Mean Corpuscular Hemoglobin 26.3 pg (25.0-34.0); Mean Corpuscular Hgb Conc 30.3 g/dL (32.0-36.0); Mean Platelet Volume 11.2 fL (9.4-12.4); Monocytes # (auto) 0.29 K/uL (0.11-0.59); Neutrophils # (auto) 6.57 K/uL (1.40-6.50); Neutrophils % (auto) 89.8 %; Nucleated RBC # (auto) 0.02 K/uL (0.00-0.12); Nucleated RBC % (auto) 0.3 %; Platelet Count 137 K/uL (130-400); RDW Coefficient of Variation 19.8 % (11.5-14.5); RDW Standard Deviation 63.6 fL (36.4-46.3); Red Blood Count 3.38 M/uL (4.20-5.40); White Blood Count 7.31 K/ul (4.8-10.8)
[2023-07-25 07:19] LABS: Albumin Globulin Ratio 1.1 (0.9-2); Albumin Level 3.6 gm/dl (3.4-5.0); BUN Creatinine Ratio 45.3 (10-20); Bilirubin,Total 0.5 mg/dl (0.2-1.0); Calcium 9.2 mg/dl (8.6-10.3); Creatinine Clr Calc Pharmacy 75.2 ml/min; Est GFR (African American) 79.9 ml/min; Est GFR (Non-African American) 68.9 ml/min; Globulin 3.3 gm/dl (2.5-4.0); Potassium 4.8 mmol/L (3.5-5.1); Total Protein 6.9 gm/dl (6.0-8.3)
[2023-07-25] MEDS: SODIUM CHLOR 7% 4 ML NEB NEB SCH ×2 (07:28→18:08)
[2023-07-25] MEDS: guaiFENesin 600 MG TABCR PO SCH ×2 (08:30→21:06)
[2023-07-25] MEDS: LORazepam 0.5 MG TAB PO PRN ×2 (08:30→21:05)
[2023-07-25] MEDS: SERTRALINE HCL 100 MG TABLET PO SCH (08:30)
[2023-07-25] MEDS: LORATADINE 10 MG TAB PO SCH (08:31)
[2023-07-25] MEDS: GABAPENTIN 300 MG CAP PO SCH ×3 (08:31→21:05)
[2023-07-25] MEDS: CHOLECALCIFEROL 1,000 UNITS 25 MCG TAB PO SCH (08:31)
[2023-07-25] MEDS: amLODIPine BESYLATE 5 MG TAB PO SCH (08:31)
[2023-07-25] MEDS: FOLIC ACID 1 MG TAB PO SCH (08:31)
[2023-07-25] MEDS: MAGNESIUM CHLORIDE W/CALCIUM 64MG DELAYED REL TAB PO SCH ×2 (08:31→21:05)
[2023-07-25] MEDS: PANTOprazole 40 MG TAB PO SCH ×2 (08:31→21:07)
[2023-07-25] MEDS: DOCUSATE SODIUM 100 MG CAP PO SCH ×2 (08:31→21:05)
[2023-07-25] MEDS: SOTALOL HCL 80 MG TAB PO SCH ×2 (08:31→21:06)
--- NOTE | 2023-07-25 11:27 | Pulmonology Progress Note ---
Date of Service July 25, 2023 Assessment & Plan (1) Acute respiratory failure with hypoxia and hypercapnia: (2) Hypersensitivity pneumonitis: Plan Impression: 67-year-old female with history of hypersensitivity pneumonitis. Unclear how the diagnosis was made or what the offending agent is but she has had recurrent hospitalizations with progressive infiltrates. She is been treated aggressively with antibiotics with no significant improvement and is now both hypoxemic and hypercarbic. Her current oxygen requirement and respiratory status would preclude bronchoscopy at this point time. She is currently being treated for potentially reversible etiologies with high-dose steroids. Recommendations: 1. Hypersensitivity pneumonitis: Continue high-dose steroids (125 mg Solu- Medrol IV every 8) and see how she does. May require 3 to 4 days before we can assess whether or not she is responding clinically. If she responds favorably, consideration for the addition of a steroid sparing agent such as mycophenolate or azathioprine might be appropriate. Repeat serologies are pending. If chronic steroids are entertained, PJP prophylaxis will need to be initiated 2. Unclear how much of this process is reversible but the patient clearly has shown evidence of clinical decline over the last several weeks. 3. Hypoxemic and hypercarbic respiratory failure. Given her significant hypercarbia would not try and target oxygen saturations much above 88 to 89%. Continue empiric CPAP overnight and as needed during the day. If the patient is not willing or able to tolerate CPAP, the only other alternative would be tracheostomy with long-term ventilatory support which the patient is not in agreement with. She understands the potential risks and does not want to pursue aggressive interventions. 4. Weight loss would ultimately be beneficial. The above recommendations and plan were extensively discussed with the patient at bedside. Questions were answered to the best my ability. She expressed understanding and is in agreement with the plan as outlined. Admission and Anticipated Discharge Date Admission Date: July 22, 2023 Subjective Patient seen and examined. EMR reviewed. The patient thinks her breathing might be a little better. She remains with a significantly high oxygen requirement. She believes she used CPAP/BiPAP last evening. She has an occasional cough but is not producing any phlegm. No significant chest pain. She remains quite sedentary Review of Systems Review of Systems: All systems reviewed & are unremarkable except as noted in Subjective Physical Exam Constitutional: WD/WN, vitals as above Eyes: PERRL, conjunctivae normal, anicteric sclerae ENMT: external ear and nose normal, oropharynx normal Neck: trachea midline, no thyromegaly Cardiovascular: RRR, no murmur, no edema Rate/Rhythm: regular rate and regular rhythm Gastrointestinal (Abdomen): normal bowel sounds, soft, nontender, no hepatosplenomegaly Musculoskeletal: no cyanosis or clubbing, extremities motor strength 5/5 Neurologic: patellar DTR's 2+ bilat, sensation intact and PERRL, EOMI, accommodation nl, no face palsy, no dysarthria Psychiatric: A+Ox3, euthymic affect Results & Data Results & Data Vital Signs (Past 12 Hours) Vital Signs Temp Pulse Pulse Resp BP BP Pulse Ox 07/25/23 11:10 71 20 93 07/25/23 10:00 63 07/25/23 07:33 36.9 C 64 18 143/66 H 93 07/25/23 07:30 68 20 92 07/25/23 03:47 99/56 L 07/25/23 03:00 36.8 C 64 18 138/65 88 L 07/25/23 02:02 63 21 91 07/25/23 02:01 63 21 91 07/25/23 00:12 36.8 C 64 20 140/76 92 O2 Del Method O2 Flow Rate FiO2 07/25/23 11:10 High Flow Nasal Cannula 25 80 07/25/23 10:00 07/25/23 07:33 High Flow Nasal Cannula, Nebulizer 25 07/25/23 07:30 High Flow Nasal Cannula 25 80 07/25/23 03:47 07/25/23 03:00 High Flow Nasal Cannula 25 80 07/25/23 02:02 High Flow Nasal Cannula 25 80 07/25/23 02:01 High Flow Nasal Cannula 25 80 07/25/23 00:12 High Flow Nasal Cannula 25 Laboratory Results 07/25/23 06:15 07/25/23 06:15 Diagnostic Findings No new imaging PG Care Time/CCT Total # of Minutes Spent Total Time Spent with Patient: Total time spent is greater than 50% in coordination of care (as documented) at patient's floor/unit and/or counseling patient: Coding Level of Care Code 79350 SUB INP/OBS CARE 2/35MIN Diagnoses Acute respiratory failure with hypoxia and hypercapnia J96.01; J96.02 Hypersensitivity pneumonitis J67.9
--- NOTE | 2023-07-25 12:30 | Hospitalist Progress Note ---
Date of Service July 25, 2023 Assessment & Plan (1) Acute respiratory failure with hypoxia and hypercapnia: (2) Acute dyspnea: (3) BERRY (obstructive sleep apnea): (4) Acute exacerbation of CHF (congestive heart failure): (5) Paroxysmal atrial fibrillation: (6) Pacemaker: (7) CKD (chronic kidney disease), stage III: (8) Obesity, morbid, BMI 40.0-49.9: (9) Chronic anemia: (10) GERD (gastroesophageal reflux disease): (11) HTN (hypertension): Plan: Acute on chronic respiratory failure with hypoxia and hypercarbia Chronic hypersensitivity pneumonitis Pulmonary hypertension BERRY 67-year-old female with history of chronic hypersensitive pneumonitis with multiple hospitalization presented with increasing shortness of breath. At baseline she uses 5 L of oxygen at rest. As per her outpatient pulmonology; HP panel was checked which showed sensitivity to several molds. Autoimmune panel are negative. - CT chest reviewed personally: Progression of extensive multifocal consolidation and groundglass opacities within the lungs since CT of May 19, 2023. These are nonspecific. Primary considerations include multifocal pneumonia, pulmonary edema and ARDS. Interval development of small right and trace left pleural effusions. Moderate cardiomegaly and coronary artery calcification. Mild dilatation of the central pulmonary arteries which raises the possibility of pulmonary arterial hypertension. -Wean down oxygen as tolerated to keep SPO2 around 88 to 89%. - Patient seen by pulmonology; started on trial of high-dose steroids with 125 Solu-Medrol IV every 8 hours since July 23 to see if patient will respond to that. Repeat HP panel and autoimmune panel. -Discontinue antibiotic for now. Monitor closely. Patient is afebrile, with no leukocytosis and no elevation in procalcitonin. 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 QTc of 464 Not anticoagulated due to history of chronic anemia and bleeding issues Hemolytic anemia: Follows with heme-onc, currently on prednisone 10 mg daily. Prednisone currently on hold as patient is on high-dose steroids. Given 1 unit of packed RBC on July 24, 2023. Hb is 8.9. CKD stage III - chronic, stable, cr 0.78 on admission, likely volume up reflecting in her cr. GERD -Cont protonix DVT ppx: Heparin FEN/GI: General Lines: 2 PIV CODE: DNR/DNI Dispo: From home, PT OT ordered. Patient is open to going to rehab. Time spent evaluating patient, direct bedside care, chart review, placing orders, interpretation of diagnostic studies, discussion with consultants, patient, and family members, as well as other required patient management activities is 60-minute Please note the above document was generated using voice recognition software. It may contain grammatical, syntax or spelling errors. Any formal questions or concerns about the content, text or information contained within the body of this dictation should be directly addressed to the provider for clarification Admission and Anticipated Discharge Date Admission Date: July 22, 2023 Subjective Patient seen and examined at bedside. She reports that she is feeling a lot better compared to previous days. Still continues to require high flow nasal cannula. She desaturates easily on exertion. Review of Systems Review of Systems: All systems reviewed & are unremarkable except as noted in Subjective Physical Exam Physical Exam: General: awake, alert, + morbidly obese female, + Head: Normocephalic, atraumatic ENT: PERRL, EOMI, no pharyngeal exudate, mucous membranes moist Chest: Bilateral crackles heard up to mid lung field. Cardiac: Regular rate and rhythm, +systolic murmur grade II/, no JVD, normal peripheral pulses, good capillary refill Abdominal: NABS x 4 quadrants, soft, nondistended, nontender to palpation, no rebound or guarding Extremities: Normal inspection, + minimal peripheral edema or erythema, calfs nontender to palpation, + left foot leg wound healing Psych: Normal mood and affect Neuro: AAO x 3, strength intact bilaterally and rated 5/5, no motor deficits, speech is clear, no peripheral sensory deficits Results & Data Results & Data Vital Signs (Past 12 Hours) Vital Signs Temp Pulse Pulse Resp BP BP Pulse Ox 07/25/23 11:27 36.7 C 63 20 134/76 91 07/25/23 11:10 71 20 93 07/25/23 10:00 63 07/25/23 07:33 36.9 C 64 18 143/66 H 93 07/25/23 07:30 68 20 92 07/25/23 03:47 99/56 L 07/25/23 03:00 36.8 C 64 18 138/65 88 L 07/25/23 02:02 63 21 91 07/25/23 02:01 63 21 91 O2 Del Method O2 Flow Rate FiO2 07/25/23 11:27 High Flow Nasal Cannula 25 07/25/23 11:10 High Flow Nasal Cannula 25 80 07/25/23 10:00 07/25/23 07:33 High Flow Nasal Cannula, Nebulizer 25 07/25/23 07:30 High Flow Nasal Cannula 25 80 07/25/23 03:47 07/25/23 03:00 High Flow Nasal Cannula 25 80 07/25/23 02:02 High Flow Nasal Cannula 25 80 07/25/23 02:01 High Flow Nasal Cannula 25 80 Laboratory Results Laboratory Results WBC 7.31 K/ul (4.8-10.8) 07/25/23 06:15 RBC 3.38 M/uL (4.20-5.40) L 07/25/23 06:15 Hgb 8.9 g/dl (12.0-16.0) L 07/25/23 06:15 Hct 29.4 % (37.0-47.0) L 07/25/23 06:15 MCV 87.0 fL (80.0-100.0) 07/25/23 06:15 MCH 26.3 pg (25.0-34.0) 07/25/23 06:15 MCHC 30.3 g/dL (32.0-36.0) L 07/25/23 06:15 RDW Std Deviation 63.6 fL (36.4-46.3) H 07/25/23 06:15 RDW Coeff of Patrica 19.8 % (11.5-14.5) H 07/25/23 06:15 Plt Count 137 K/uL (130-400) 07/25/23 06:15 MPV 11.2 fL (9.4-12.4) 07/25/23 06:15 Immature Gran % (Auto) 1.4 % 07/25/23 06:15 Neut % (Auto) 89.8 % 07/25/23 06:15 Lymph % (Auto) 4.8 % 07/25/23 06:15 [place] % (Auto) 4.0 % 07/25/23 06:15 Eos % (Auto) 0.0 % 07/25/23 06:15 Baso % (Auto) 0.0 % 07/25/23 06:15 Neut # (Auto) 6.57 K/uL (1.40-6.50) H 07/25/23 06:15 Lymph # (Auto) 0.35 K/uL (1.20-3.40) L 07/25/23 06:15 [place] # (Auto) 0.29 K/uL (0.11-0.59) 07/25/23 06:15 Eos # (Auto) 0.00 K/uL (0.00-0.50) 07/25/23 06:15 Baso # (Auto) 0.00 K/uL (0.00-0.20) 07/25/23 06:15 Immature Gran # (Auto) 0.10 K/uL (0.01-0.20) 07/25/23 06:15 Absolute Nucleated RBC 0.02 K/uL (0.00-0.12) 07/25/23 06:15 Nucleated RBC % (auto) 0.3 % 07/25/23 06:15 Hyposegmented Neuts 1+ 07/22/23 12:39 Polychromasia 1+ 07/24/23 05:28 Basophilic Stippling 1+ 07/22/23 12:39 Anisocytosis Present 07/24/23 05:28 Tear Drop Cells 1+ 07/24/23 05:28 Stomatocytes 1+ 07/24/23 05:28 ESR 79 mm/hr (0-30) H 07/23/23 09:14 VBG pH 7.30 (7.36-7.41) L 07/22/23 17:31 VBG pCO2 93 mmHg (38-50) H 07/22/23 17:31 VBG pO2 59 mmHg 07/22/23 17:31 VBG HCO3 46 mmol/L 07/22/23 17:31 VBG O2 Saturation 88.2 % 07/22/23 17:31 VBG Base Excess 14.8 mEq/L 07/22/23 17:31 Sodium 133 mmol/L (136-145) L 07/25/23 06:15 Potassium 4.8 mmol/L (3.5-5.1) 07/25/23 06:15 Chloride 91 mmol/L (98-107) L 07/25/23 06:15 Carbon Dioxide 40 mmol/L (21-32) H 07/25/23 06:15 Anion Gap 2 (3-11) L 07/25/23 06:15 BUN 39 mg/dl (6-23) H 07/25/23 06:15 Creatinine 0.86 mg/dl (0.6-1.2) 07/25/23 06:15 Est Cr Clr Drug Dosing 75.2 ml/min 07/25/23 06:15 Est GFR ( Amer) 79.9 ml/min 07/25/23 06:15 Est GFR (Non-Af Amer) 68.9 ml/min 07/25/23 06:15 BUN/Creatinine Ratio 45.3 (10-20) H 07/25/23 06:15 Glucose 198 mg/dl (70-99(Fasting)) H 07/25/23 06:15 Lactate 0.8 mmol/L (0.4-2.0) 07/22/23 Unknown Calcium 9.2 mg/dl (8.6-10.3) 07/25/23 06:15 Magnesium 1.8 mg/dl (1.7-2.4) 07/23/23 06:46 Total Bilirubin 0.5 mg/dl (0.2-1.0) 07/25/23 06:15 Direct Bilirubin 0.1 mg/dl (0-0.2) 07/22/23 12:39 AST 14 U/L (13-39) 07/25/23 06:15 ALT 10 U/L (7-52) 07/25/23 06:15 Alkaline Phosphatase 71 U/L (34-104) 07/25/23 06:15 Troponin I High Sens 7.3 pg/ml (0-14) 07/22/23 12:39 C-Reactive Protein 2.90 mg/dl (0-0.5) H 07/23/23 09:14 B-Natriuretic Peptide 325 pg/ml (0-100) H 07/22/23 12:39 Total Protein 6.9 gm/dl (6.0-8.3) 07/25/23 06:15 Albumin 3.6 gm/dl (3.4-5.0) 07/25/23 06:15 Globulin 3.3 gm/dl (2.5-4.0) 07/25/23 06:15 Albumin/Globulin Ratio 1.1 (0.9-2) 07/25/23 06:15 Procalcitonin 0.05 ng/ml (0-0.5) 07/22/23 12:39 Urine Color Yellow 07/22/23 Unknown Urine Appearance Clear (Clear) 07/22/23 Unknown Urine pH 6.0 (4.5-7.5) 07/22/23 Unknown Ur Specific [place] 1.016 (1.000-1.030) 07/22/23 Unknown Urine Protein Negative (Negative) 07/22/23 Unknown Urine Glucose (UA) Negative (Negative) 07/22/23 Unknown Urine Ketones Negative (Negative) 07/22/23 Unknown Urine Blood Negative (Negative) 07/22/23 Unknown Urine Nitrite Negative (Negative) 07/22/23 Unknown Urine Bilirubin Negative (Negative) 07/22/23 Unknown Urine Urobilinogen Negative (Negative) 07/22/23 Unknown Ur Leukocyte Esterase 1+ (Negative) H 07/22/23 Unknown Urine WBC (Auto) 5-10 /hpf (0-5) H 07/22/23 Unknown Urine RBC (Auto) 0-4 /hpf (0-4) 07/22/23 Unknown U Hyaline Cast (Auto) 0 /lpf (0-5) 07/22/23 Unknown U Epithel Cells (Auto) 0-5 /lpf (0-5) 07/22/23 Unknown Urine Bacteria (Auto) Negative (Negative) 07/22/23 Unknown Adenovirus (PCR) Not Detected (NotDetected) 07/22/23 17:31 B. pertussis DNA (PCR) Not Detected (NotDetected) 07/22/23 17:31 B.parapertussis DNA PCR Not Detected (NotDetected) 07/22/23 17:31 C. pneumoniae DNA (PCR) Not Detected (NotDetected) 07/22/23 17:31 Coronavirus OC43 (PCR) Not Detected (NotDetected) 07/22/23 17:31 Coronavirus HKU1 (PCR) Not Detected (NotDetected) 07/22/23 17:31 Coronavirus 229E (PCR) Not Detected (NotDetected) 07/22/23 17:31 SARS-CoV-2 (PCR) Not Detected (NotDetected) 07/22/23 17:31 Coronavirus NL63 (PCR) Not Detected (NotDetected) 07/22/23 17:31 Human Metapneumovir PCR Not Detected (NotDetected) 07/22/23 17:31 Influenza Type A (PCR) Not Detected (NotDetected) 07/22/23 17:31 Influenza Type B (PCR) Not Detected (NotDetected) 07/22/23 17:31 M. pneumoniae (PCR) Not Detected (NotDetected) 07/22/23 17:31 Parainfluenza 1 (PCR) Not Detected (NotDetected) 07/22/23 17:31 Parainfluenza 2 (PCR) Not Detected (NotDetected) 07/22/23 17:31 Parainfluenza 3 (PCR) Not Detected (NotDetected) 07/22/23 17:31 Parainfluenza 4 (PCR) Not Detected (NotDetected) 07/22/23 17:31 RSV (PCR) Not Detected (NotDetected) 07/22/23 17:31 Entero/Rhino (PCR) Not Detected (NotDetected) 07/22/23 17:31 Blood Type A Positive 07/24/23 10:58 Antibody Screen NEGATIVE 07/24/23 10:58 Crossmatch See Detail 07/24/23 10:58 Impressions Chest X-Ray 07/22/23 13:24 XR chest 1V portable HISTORY: Sepsis COMPARISON: Chest 07/09/2023. FINDINGS: There are low lung volumes. No pneumothorax. The cardiac silhouette remains mildly enlarged. There is a left-sided dual-chamber pacemaker. Interstitial thickening and multifocal bilateral airspace opacities have progressed. Trace bilateral pleural effusions again noted. There are surgical clips within the upper abdomen. IMPRESSION: Interval progression of the interstitial thickening and multifocal bilateral airspace opacities. ACT 112: Negative or not required by law. Electronically signed by: Karthik Cantu M.D. 07/22/2023 2:12 PM Chest CTA 07/22/23 14:48 CT ANGIOGRAPHY OF THE CHEST, PULMONARY EMBOLUS PROTOCOL CLINICAL HISTORY: Shortness of breath COMPARISON STUDY: Chest CT May 19, 2023. Chest radiograph July 09, 2023 and July 22, 2023. TECHNIQUE: Following IV administration of 118 mL of Optiray, helical axial images of the chest were obtained utilizing the pulmonary embolus protocol. Maximal intensity projections and sagittal and coronal reformats were viewed on an independent 3D workstation. IV contrast was administered without complication. Automated exposure control was utilized for the study. A dose lowering technique was utilized adhering to the principles of ALARA. CT DOSE: 1064.73 mGy.cm FINDINGS: No pulmonary emboli are identified although the segmental and subsegmental pulmonary arteries are suboptimally assessed. There is mild dilatation of the central pulmonary arteries. There is no thoracic aortic dissection. A dual-lead left subclavian pacer is in place. There is no pericardial effusion. Mildly enlarged mediastinal and bilateral hilar lymph nodes are similar to CT of May 19, 2023. Index prevascular node on image 120 at 199 measures 1 cm short axis diameter. Index left hilar node on image 108 measures 1.4 cm. Cardiomegaly is unchanged. Small right and trace left pleural effusions have developed. There is no pneumothorax. Extensive multifocal consolidation and groundglass opacities within the lungs have progressed since CT of May 19, 2023. The central airways are patent. There is no cavitation. Old mild T5 compression deformity is unchanged. Splenomegaly is unchanged. The liver is cirrhotic. IMPRESSION: 1. No pulmonary emboli identified although segmental and subsegmental pulmonary arteries suboptimally assessed. 2. Progression of extensive multifocal consolidation and groundglass opacities within the lungs since CT of May 19, 2023. These are nonspecific. Primary considerations include multifocal pneumonia, pulmonary edema and ARDS. 3. Interval development of small right and trace left pleural effusions. 4. Moderate cardiomegaly and coronary artery calcification. Mild dilatation of the central pulmonary arteries which raises the possibility of pulmonary arterial hypertension. 5. No change in mild mediastinal and bilateral hilar lymphadenopathy. This is nonspecific and may be reactive. ACT 112: Negative or not required by law. Electronically signed by: Pro Joya M.D. 07/22/2023 3:46 PM (10) GERD (gastroesophageal reflux disease) Esophagitis presence: without esophagitis Qualified Code(s): K21.9 - Gastro- esophageal reflux disease without esophagitis (11) HTN (hypertension) Hypertension type: unspecified Qualified Code(s): I10 - Essential (primary) hypertension
[2023-07-25] MEDS: MONTELUKAST SODIUM 10 MG TABLET PO SCH (21:07)
[2023-07-26] MEDS: methylPREDNISolone 125 MG in SYRINGE 0 ML IV SCH ×3 (00:08→15:19)
[2023-07-26] MEDS: ALBUT/IPRATROP 3MG/0.5MG NEB 3 ML VIAL NEB SCH ×6 (02:09→22:47)
[2023-07-26] MEDS: HEPARIN SOD 5,000 UNIT/0.5 ML VIAL SQ SCH ×3 (05:00→22:50)
[2023-07-26 06:25] LABS: Hematocrit (blood only) 29.9 % (37.0-47.0); Hemoglobin 9.1 g/dl (12.0-16.0); Immature Granulocytes # (auto) 0.08 K/uL (0.01-0.20); Immature Granulocytes % (auto) 1.8 %; Lymphocytes # (auto) 0.25 K/uL (1.20-3.40); Lymphocytes % (auto) 5.7 %; Mean Corpuscular Hemoglobin 26.8 pg (25.0-34.0); Mean Corpuscular Hgb Conc 30.4 g/dL (32.0-36.0); Mean Corpuscular Volume 87.9 fL (80.0-100.0); Monocytes # (auto) 0.14 K/uL (0.11-0.59); Monocytes % (auto) 3.2 %; Neutrophils # (auto) 3.88 K/uL (1.40-6.50); Neutrophils % (auto) 89.3 %; Nucleated RBC # (auto) 0.02 K/uL (0.00-0.12); Nucleated RBC % (auto) 0.5 %; Platelet Count 115 K/uL (130-400); RDW Coefficient of Variation 19.6 % (11.5-14.5); RDW Standard Deviation 63.9 fL (36.4-46.3); White Blood Count 4.35 K/ul (4.8-10.8)
[2023-07-26 06:35] LABS: BUN Creatinine Ratio 48.6 (10-20); Calcium 9.3 mg/dl (8.6-10.3); Creatinine Clr Calc Pharmacy 87.3 ml/min; Est GFR (African American) 95.8 ml/min; Est GFR (Non-African American) 82.7 ml/min; Potassium 4.9 mmol/L (3.5-5.1)
[2023-07-26] MEDS: SODIUM CHLOR 7% 4 ML NEB NEB SCH ×3 (07:16→19:28)
--- NOTE | 2023-07-26 08:20 | Pulmonology Progress Note ---
Date of Service July 26, 2023 Assessment & Plan (1) Acute respiratory failure with hypoxia and hypercapnia: (2) Hypersensitivity pneumonitis: Plan Impression: 67-year-old female with history of hypersensitivity pneumonitis. Unclear how the diagnosis was made or what the offending agent is but she has had recurrent hospitalizations with progressive infiltrates. She is been treated aggressively with antibiotics with no significant improvement and is now both hypoxemic and hypercarbic. Her current oxygen requirement and respiratory status would preclude bronchoscopy at this point time. She is currently being treated for potentially reversible etiologies with high-dose steroids. Recommendations: 1. Hypersensitivity pneumonitis: Continue high-dose steroids (125 mg Solu- Medrol IV every 8) and see how she does. If she responds favorably, consideration for the addition of a steroid sparing agent such as mycophenolate or azathioprine might be appropriate. Repeat serologies are pending. If chronic steroids are entertained, PJP prophylaxis will need to be initiated. We will repeat chest x-ray in a.m.. she remains too unstable to consider bronchoscopy even for be a certainly for transbronchial biopsies. 2. Unclear how much of this process is reversible but the patient clearly has shown evidence of clinical decline over the last several weeks. 3. Hypoxemic and hypercarbic respiratory failure. Given her significant hypercarbia would not try and target oxygen saturations much above 88 to 89%. Patient again was educated regarding the importance of compliance with nocturnal noninvasive positive pressure ventilation. Her hypoxemia is certainly impacted by her resting CO2 levels in the 80s or 90s. May be able to significantly improve her oxygen requirement if we can get her CO2 levels lowered. 4. Weight loss would ultimately be beneficial. The above recommendations and plan were extensively discussed with the patient at bedside. Questions were answered to the best my ability. She expressed understanding and is in agreement with the plan as outlined. Admission and Anticipated Discharge Date Admission Date: July 22, 2023 Subjective Patient seen and examined. She thinks she is feeling a little bit better. Her oxygen requirement is slightly reduced from yesterday. She is coughing but not bringing up phlegm. She states she does desaturate with any significant physical activity such as dangling at the bedside. He is not having any chest pain. She states she did not use her noninvasive positive pressure ventilation last night as the staff were busy and could not get her set up. Review of Systems Review of Systems: All systems reviewed & are unremarkable except as noted in Subjective Physical Exam Constitutional: WD/WN, vitals as above Eyes: PERRL, conjunctivae normal, anicteric sclerae ENMT: external ear and nose normal, oropharynx normal Neck: trachea midline, no thyromegaly Respiratory: no respiratory distress, no labored breathing, no cough and not tachypneic Auscultation: + crackles and + wheezes Cardiovascular: RRR, no murmur, no edema Rate/Rhythm: regular rate and regular rhythm Gastrointestinal (Abdomen): normal bowel sounds, soft, nontender, no hepatosplenomegaly Musculoskeletal: no cyanosis or clubbing, extremities motor strength 5/5 Neurologic: patellar DTR's 2+ bilat, sensation intact and PERRL, EOMI, accommodation nl, no face palsy, no dysarthria Psychiatric: A+Ox3, euthymic affect Results & Data Results & Data Vital Signs (Past 12 Hours) Vital Signs Temp Pulse Pulse Resp BP BP Pulse Ox 07/26/23 07:22 36.9 C 70 20 133/64 90 07/26/23 07:15 66 20 90 07/26/23 06:45 61 07/26/23 04:03 37.0 C 65 21 147/93 H 91 07/26/23 02:09 65 19 88 L 07/25/23 23:48 71 07/25/23 23:12 36.9 C 68 18 131/71 92 07/25/23 22:00 07/25/23 22:22 69 19 89 L O2 Del Method O2 Flow Rate FiO2 07/26/23 07:22 High Flow Nasal Cannula 25 70 07/26/23 07:15 High Flow Nasal Cannula 25 70 07/26/23 06:45 07/26/23 04:03 High Flow Nasal Cannula 25 07/26/23 02:09 High Flow Nasal Cannula 25 75 07/25/23 23:48 07/25/23 23:12 High Flow Nasal Cannula 07/25/23 22:00 High Flow Nasal Cannula 25 80 07/25/23 22:22 High Flow Nasal Cannula 25 80 Laboratory Results 07/26/23 05:40 07/26/23 05:40 Diagnostic Findings No updated imaging PG Care Time/CCT Total # of Minutes Spent Total Time Spent with Patient: Total time spent is greater than 50% in coordination of care (as documented) at patient's floor/unit and/or counseling patient: Coding Level of Care Code 23333 SUB INP/OBS CARE 2MIN Diagnoses Acute respiratory failure with hypoxia and hypercapnia J96.01; J96.02 Hypersensitivity pneumonitis J67.9
[2023-07-26] MEDS: guaiFENesin 600 MG TABCR PO SCH ×2 (08:45→21:00)
[2023-07-26] MEDS: LORATADINE 10 MG TAB PO SCH (08:45)
[2023-07-26] MEDS: GABAPENTIN 300 MG CAP PO SCH ×3 (08:45→21:01)
[2023-07-26] MEDS: PANTOprazole 40 MG TAB PO SCH ×2 (08:45→21:01)
[2023-07-26] MEDS: SOTALOL HCL 80 MG TAB PO SCH ×2 (08:45→21:01)
[2023-07-26] MEDS: DOCUSATE SODIUM 100 MG CAP PO SCH ×2 (08:45→21:00)
[2023-07-26] MEDS: FOLIC ACID 1 MG TAB PO SCH (08:45)
[2023-07-26] MEDS: amLODIPine BESYLATE 5 MG TAB PO SCH (08:45)
[2023-07-26] MEDS: MAGNESIUM CHLORIDE W/CALCIUM 64MG DELAYED REL TAB PO SCH ×2 (08:45→21:02)
[2023-07-26] MEDS: CHOLECALCIFEROL 1,000 UNITS 25 MCG TAB PO SCH (08:45)
[2023-07-26] MEDS: SERTRALINE HCL 100 MG TABLET PO SCH (08:45)
--- NOTE | 2023-07-26 10:57 | Hospitalist Progress Note ---
Date of Service July 26, 2023 Assessment & Plan (1) Acute respiratory failure with hypoxia and hypercapnia: (2) Acute dyspnea: (3) BERRY (obstructive sleep apnea): (4) Acute exacerbation of CHF (congestive heart failure): (5) Paroxysmal atrial fibrillation: (6) Pacemaker: (7) CKD (chronic kidney disease), stage III: (8) Obesity, morbid, BMI 40.0-49.9: (9) Chronic anemia: (10) GERD (gastroesophageal reflux disease): (11) HTN (hypertension): Plan: Acute on chronic respiratory failure with hypoxia and hypercarbia Chronic hypersensitivity pneumonitis Pulmonary hypertension BERRY 67-year-old female with history of chronic hypersensitive pneumonitis with multiple hospitalization presented with increasing shortness of breath. At baseline she uses 5 L of oxygen at rest. As per her outpatient pulmonology; HP panel was checked which showed sensitivity to several molds. Autoimmune panel are negative. - CT chest reviewed personally: Progression of extensive multifocal consolidation and groundglass opacities within the lungs since CT of May 19, 2023. These are nonspecific. Primary considerations include multifocal pneumonia, pulmonary edema and ARDS. Interval development of small right and trace left pleural effusions. Moderate cardiomegaly and coronary artery calcification. Mild dilatation of the central pulmonary arteries which raises the possibility of pulmonary arterial hypertension. -Wean down oxygen as tolerated to keep SPO2 around 88 to 89%. - Patient seen by pulmonology; currently on trial of high-dose steroids with 125 Solu-Medrol IV every 8 hours since July 23 to see if patient will respond to that. Repeat HP panel and autoimmune panel. -Repeat chest x-ray tomorrow AM. -Discontinue antibiotic for now. Monitor closely. Patient is afebrile, with no leukocytosis and no elevation in procalcitonin. 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 QTc of 464 Not anticoagulated due to history of chronic anemia and bleeding issues Continue telemetry monitoring Hemolytic anemia: Follows with heme-onc, currently on prednisone 10 mg daily. Prednisone currently on hold as patient is on high-dose steroids. Given 1 unit of packed RBC on July 24, 2023. Hemoglobin around 8-9 CKD stage III - chronic, stable, c GERD -Cont protonix DVT ppx: Heparin FEN/GI: General Lines: 2 PIV CODE: DNR/DNI Dispo: From home, PT OT ordered. Patient is open to going to rehab. Time spent evaluating patient, direct bedside care, chart review, placing orders, interpretation of diagnostic studies, discussion with consultants, patient, and family members, as well as other required patient management activities is 60-minute Please note the above document was generated using voice recognition software. It may contain grammatical, syntax or spelling errors. Any formal questions or concerns about the content, text or information contained within the body of this dictation should be directly addressed to the provider for clarification Admission and Anticipated Discharge Date Admission Date: July 22, 2023 Subjective Patient seen and examined at bedside. She is sitting up on the bed; not in any distress. She reports that her breathing is better compared to previous days. However, she desaturates easily on physical exertion. Physical Exam Physical Exam: General: awake, alert, + morbidly obese female, + Head: Normocephalic, atraumatic ENT: PERRL, EOMI, no pharyngeal exudate, mucous membranes moist Chest: Bilateral crackles heard up to mid lung field. Cardiac: Regular rate and rhythm, +systolic murmur grade II/, no JVD, normal peripheral pulses, good capillary refill Abdominal: NABS x 4 quadrants, soft, nondistended, nontender to palpation, no rebound or guarding Extremities: Normal inspection, + minimal peripheral edema or erythema, calfs nontender to palpation, + left foot leg wound healing Psych: Normal mood and affect Neuro: AAO x 3, strength intact bilaterally and rated 5/5, no motor deficits, speech is clear, no peripheral sensory deficits Results & Data Results & Data Vital Signs (Past 12 Hours) Vital Signs Temp Pulse Pulse Resp BP BP Pulse Ox 07/26/23 10:40 63 22 91 07/26/23 07:00 07/26/23 07:22 36.9 C 70 20 133/64 90 07/26/23 07:15 66 20 90 07/26/23 06:45 61 07/26/23 04:03 37.0 C 65 21 147/93 H 91 07/26/23 02:09 65 19 88 L 07/25/23 23:48 71 07/25/23 23:12 36.9 C 68 18 131/71 92 O2 Del Method O2 Flow Rate FiO2 07/26/23 10:40 High Flow Nasal Cannula 25 70 07/26/23 07:00 High Flow Nasal Cannula 25 07/26/23 07:22 High Flow Nasal Cannula 25 70 07/26/23 07:15 High Flow Nasal Cannula 25 70 07/26/23 06:45 07/26/23 04:03 High Flow Nasal Cannula 25 07/26/23 02:09 High Flow Nasal Cannula 25 75 07/25/23 23:48 07/25/23 23:12 High Flow Nasal Cannula Laboratory Results Laboratory Results WBC 4.35 K/ul (4.8-10.8) L 07/26/23 05:40 RBC 3.40 M/uL (4.20-5.40) L 07/26/23 05:40 Hgb 9.1 g/dl (12.0-16.0) L 07/26/23 05:40 Hct 29.9 % (37.0-47.0) L 07/26/23 05:40 MCV 87.9 fL (80.0-100.0) 07/26/23 05:40 MCH 26.8 pg (25.0-34.0) 07/26/23 05:40 MCHC 30.4 g/dL (32.0-36.0) L 07/26/23 05:40 RDW Std Deviation 63.9 fL (36.4-46.3) H 07/26/23 05:40 RDW Coeff of Patrica 19.6 % (11.5-14.5) H 07/26/23 05:40 Plt Count 115 K/uL (130-400) L 07/26/23 05:40 MPV 11.0 fL (9.4-12.4) 07/26/23 05:40 Immature Gran % (Auto) 1.8 % 07/26/23 05:40 Neut % (Auto) 89.3 % 07/26/23 05:40 Lymph % (Auto) 5.7 % 07/26/23 05:40 [place] % (Auto) 3.2 % 07/26/23 05:40 Eos % (Auto) 0.0 % 07/26/23 05:40 Baso % (Auto) 0.0 % 07/26/23 05:40 Neut # (Auto) 3.88 K/uL (1.40-6.50) 07/26/23 05:40 Lymph # (Auto) 0.25 K/uL (1.20-3.40) L 07/26/23 05:40 [place] # (Auto) 0.14 K/uL (0.11-0.59) 07/26/23 05:40 Eos # (Auto) 0.00 K/uL (0.00-0.50) 07/26/23 05:40 Baso # (Auto) 0.00 K/uL (0.00-0.20) 07/26/23 05:40 Immature Gran # (Auto) 0.08 K/uL (0.01-0.20) 07/26/23 05:40 Absolute Nucleated RBC 0.02 K/uL (0.00-0.12) 07/26/23 05:40 Nucleated RBC % (auto) 0.5 % 07/26/23 05:40 Hyposegmented Neuts 1+ 07/22/23 12:39 Polychromasia 1+ 07/24/23 05:28 Basophilic Stippling 1+ 07/22/23 12:39 Anisocytosis Present 07/24/23 05:28 Tear Drop Cells 1+ 07/24/23 05:28 Stomatocytes 1+ 07/24/23 05:28 ESR 79 mm/hr (0-30) H 07/23/23 09:14 VBG pH 7.30 (7.36-7.41) L 07/22/23 17:31 VBG pCO2 93 mmHg (38-50) H 07/22/23 17:31 VBG pO2 59 mmHg 07/22/23 17:31 VBG HCO3 46 mmol/L 07/22/23 17:31 VBG O2 Saturation 88.2 % 07/22/23 17:31 VBG Base Excess 14.8 mEq/L 07/22/23 17:31 Sodium 134 mmol/L (136-145) L 07/26/23 05:40 Potassium 4.9 mmol/L (3.5-5.1) 07/26/23 05:40 Chloride 93 mmol/L (98-107) L 07/26/23 05:40 Carbon Dioxide 39 mmol/L (21-32) H 07/26/23 05:40 Anion Gap 2 (3-11) L 07/26/23 05:40 BUN 36 mg/dl (6-23) H 07/26/23 05:40 Creatinine 0.74 mg/dl (0.6-1.2) 07/26/23 05:40 Est Cr Clr Drug Dosing 87.3 ml/min 07/26/23 05:40 Est GFR ( Amer) 95.8 ml/min 07/26/23 05:40 Est GFR (Non-Af Amer) 82.7 ml/min 07/26/23 05:40 BUN/Creatinine Ratio 48.6 (10-20) H 07/26/23 05:40 Glucose 217 mg/dl (70-99(Fasting)) H 07/26/23 05:40 Lactate 0.8 mmol/L (0.4-2.0) 07/22/23 Unknown Calcium 9.3 mg/dl (8.6-10.3) 07/26/23 05:40 Magnesium 1.8 mg/dl (1.7-2.4) 07/23/23 06:46 Total Bilirubin 0.5 mg/dl (0.2-1.0) 07/25/23 06:15 Direct Bilirubin 0.1 mg/dl (0-0.2) 07/22/23 12:39 AST 14 U/L (13-39) 07/25/23 06:15 ALT 10 U/L (7-52) 07/25/23 06:15 Alkaline Phosphatase 71 U/L (34-104) 07/25/23 06:15 Troponin I High Sens 7.3 pg/ml (0-14) 07/22/23 12:39 C-Reactive Protein 2.90 mg/dl (0-0.5) H 07/23/23 09:14 B-Natriuretic Peptide 325 pg/ml (0-100) H 07/22/23 12:39 Total Protein 6.9 gm/dl (6.0-8.3) 07/25/23 06:15 Albumin 3.6 gm/dl (3.4-5.0) 07/25/23 06:15 Globulin 3.3 gm/dl (2.5-4.0) 07/25/23 06:15 Albumin/Globulin Ratio 1.1 (0.9-2) 07/25/23 06:15 Procalcitonin 0.05 ng/ml (0-0.5) 07/22/23 12:39 Urine Color Yellow 07/22/23 Unknown Urine Appearance Clear (Clear) 07/22/23 Unknown Urine pH 6.0 (4.5-7.5) 07/22/23 Unknown Ur Specific [place] 1.016 (1.000-1.030) 07/22/23 Unknown Urine Protein Negative (Negative) 07/22/23 Unknown Urine Glucose (UA) Negative (Negative) 07/22/23 Unknown Urine Ketones Negative (Negative) 07/22/23 Unknown Urine Blood Negative (Negative) 07/22/23 Unknown Urine Nitrite Negative (Negative) 07/22/23 Unknown Urine Bilirubin Negative (Negative) 07/22/23 Unknown Urine Urobilinogen Negative (Negative) 07/22/23 Unknown Ur Leukocyte Esterase 1+ (Negative) H 07/22/23 Unknown Urine WBC (Auto) 5-10 /hpf (0-5) H 07/22/23 Unknown Urine RBC (Auto) 0-4 /hpf (0-4) 07/22/23 Unknown U Hyaline Cast (Auto) 0 /lpf (0-5) 07/22/23 Unknown U Epithel Cells (Auto) 0-5 /lpf (0-5) 07/22/23 Unknown Urine Bacteria (Auto) Negative (Negative) 07/22/23 Unknown Adenovirus (PCR) Not Detected (NotDetected) 07/22/23 17:31 B. pertussis DNA (PCR) Not Detected (NotDetected) 07/22/23 17:31 B.parapertussis DNA PCR Not Detected (NotDetected) 07/22/23 17:31 C. pneumoniae DNA (PCR) Not Detected (NotDetected) 07/22/23 17:31 Coronavirus OC43 (PCR) Not Detected (NotDetected) 07/22/23 17:31 Coronavirus HKU1 (PCR) Not Detected (NotDetected) 07/22/23 17:31 Coronavirus 229E (PCR) Not Detected (NotDetected) 07/22/23 17:31 SARS-CoV-2 (PCR) Not Detected (NotDetected) 07/22/23 17:31 Coronavirus NL63 (PCR) Not Detected (NotDetected) 07/22/23 17:31 Human Metapneumovir PCR Not Detected (NotDetected) 07/22/23 17:31 Influenza Type A (PCR) Not Detected (NotDetected) 07/22/23 17:31 Influenza Type B (PCR) Not Detected (NotDetected) 07/22/23 17:31 M. pneumoniae (PCR) Not Detected (NotDetected) 07/22/23 17:31 Parainfluenza 1 (PCR) Not Detected (NotDetected) 07/22/23 17:31 Parainfluenza 2 (PCR) Not Detected (NotDetected) 07/22/23 17:31 Parainfluenza 3 (PCR) Not Detected (NotDetected) 07/22/23 17:31 Parainfluenza 4 (PCR) Not Detected (NotDetected) 07/22/23 17:31 RSV (PCR) Not Detected (NotDetected) 07/22/23 17:31 Entero/Rhino (PCR) Not Detected (NotDetected) 07/22/23 17:31 Blood Type A Positive 07/24/23 10:58 Antibody Screen NEGATIVE 07/24/23 10:58 Crossmatch See Detail 07/24/23 10:58 Impressions Chest X-Ray 07/22/23 13:24 XR chest 1V portable HISTORY: Sepsis COMPARISON: Chest 07/09/2023. FINDINGS: There are low lung volumes. No pneumothorax. The cardiac silhouette remains mildly enlarged. There is a left-sided dual-chamber pacemaker. Interstitial thickening and multifocal bilateral airspace opacities have progressed. Trace bilateral pleural effusions again noted. There are surgical clips within the upper abdomen. IMPRESSION: Interval progression of the interstitial thickening and multifocal bilateral airspace opacities. ACT 112: Negative or not required by law. Electronically signed by: Karthik Cantu M.D. 07/22/2023 2:12 PM Chest CTA 07/22/23 14:48 CT ANGIOGRAPHY OF THE CHEST, PULMONARY EMBOLUS PROTOCOL CLINICAL HISTORY: Shortness of breath COMPARISON STUDY: Chest CT May 19, 2023. Chest radiograph July 09, 2023 and July 22, 2023. TECHNIQUE: Following IV administration of 118 mL of Optiray, helical axial images of the chest were obtained utilizing the pulmonary embolus protocol. Maximal intensity projections and sagittal and coronal reformats were viewed on an independent 3D workstation. IV contrast was administered without complication. Automated exposure control was utilized for the study. A dose lowering technique was utilized adhering to the principles of ALARA. CT DOSE: 1064.73 mGy.cm FINDINGS: No pulmonary emboli are identified although the segmental and subsegmental pulmonary arteries are suboptimally assessed. There is mild dilat ation of the central pulmonary arteries. There is no thoracic aortic dissection. A dual-lead left subclavian pacer is in place. There is no pericardial effusion. Mildly enlarged mediastinal and bilateral hilar lymph nodes are similar to CT of May 19, 2023. Index prevascular node on image 120 at 199 measures 1 cm short axis diameter. Index left hilar node on image 108 measures 1.4 cm. Cardiomegaly is unchanged. Small right and trace left pleural effusions have developed. There is no pneumothorax. Extensive multifocal consolidation and groundglass opacities within the lungs have progressed since CT of May 19, 2023. The central airways are patent. There is no cavitation. Old mild T5 compression deformity is unchanged. Splenomegaly is unchanged. The liver is cirrhotic. IMPRESSION: 1. No pulmonary emboli identified although segmental and subsegmental pulmonary arteries suboptimally assessed. 2. Progression of extensive multifocal consolidation and groundglass opacities within the lungs since CT of May 19, 2023. These are nonspecific. Primary considerations include multifocal pneumonia, pulmonary edema and ARDS. 3. Interval development of small right and trace left pleural effusions. 4. Moderate cardiomegaly and coronary artery calcification. Mild dilatation of the central pulmonary arteries which raises the possibility of pulmonary arterial hypertension. 5. No change in mild mediastinal and bilateral hilar lymphadenopathy. This is nonspecific and may be reactive. ACT 112: Negative or not required by law. Electronically signed by: Pro Joya M.D. 07/22/2023 3:46 PM (10) GERD (gastroesophageal reflux disease) Esophagitis presence: without esophagitis Qualified Code(s): K21.9 - Gastro- esophageal reflux disease without esophagitis (11) HTN (hypertension) Hypertension type: unspecified Qualified Code(s): I10 - Essential (primary) hypertension
[2023-07-26] MEDS: LORazepam 0.5 MG TAB PO PRN (20:59)
[2023-07-26] MEDS: MONTELUKAST SODIUM 10 MG TABLET PO SCH (21:01)
[2023-07-27] MEDS: methylPREDNISolone 125 MG in SYRINGE 0 ML IV SCH ×4 (00:03→23:39)
[2023-07-27] MEDS: ALBUT/IPRATROP 3MG/0.5MG NEB 3 ML VIAL NEB SCH ×6 (02:38→23:02)
[2023-07-27] MEDS: HEPARIN SOD 5,000 UNIT/0.5 ML VIAL SQ SCH ×3 (05:41→22:00)
[2023-07-27 06:13] LABS: Hematocrit (blood only) 27.9 % (37.0-47.0); Hemoglobin 8.3 g/dl (12.0-16.0); Immature Granulocytes # (auto) 0.08 K/uL (0.01-0.20); Immature Granulocytes % (auto) 1.7 %; Lymphocytes # (auto) 0.31 K/uL (1.20-3.40); Lymphocytes % (auto) 6.7 %; Mean Corpuscular Hemoglobin 26.3 pg (25.0-34.0); Mean Corpuscular Hgb Conc 29.7 g/dL (32.0-36.0); Mean Corpuscular Volume 88.6 fL (80.0-100.0); Monocytes # (auto) 0.19 K/uL (0.11-0.59); Monocytes % (auto) 4.1 %; Neutrophils # (auto) 4.08 K/uL (1.40-6.50); Neutrophils % (auto) 87.5 %; Nucleated RBC # (auto) 0.02 K/uL (0.00-0.12); Nucleated RBC % (auto) 0.4 %; Platelet Count 104 K/uL (130-400); RDW Coefficient of Variation 19.5 % (11.5-14.5); RDW Standard Deviation 63.1 fL (36.4-46.3); Red Blood Count 3.15 M/uL (4.20-5.40); White Blood Count 4.66 K/ul (4.8-10.8)
[2023-07-27 06:26] LABS: BUN Creatinine Ratio 45.3 (10-20); Calcium 9.1 mg/dl (8.6-10.3); Creatinine Clr Calc Pharmacy 100.9 ml/min; Est GFR (African American) 105.5 ml/min; Potassium 5.2 mmol/L (3.5-5.1)
[2023-07-27] MEDS: SODIUM CHLOR 7% 4 ML NEB NEB SCH ×2 (07:19→19:15)
--- NOTE | 2023-07-27 07:35 | XRay Report ---
SINGLE VIEW CHEST CLINICAL HISTORY: Dyspnea FINDINGS: An AP, portable, upright chest radiograph is compared to chest x-ray and chest CT dated 07/10. A 2-lead cardiac pacemaker is unchanged in position. The heart is enlarged noting atheroscler otic calcification of the thoracic aorta. Extensive/diffuse airspace opacities have modestly cleared as compared to 07/22/2023. Small pleural effusions are noted. No pneumothorax is seen. The skeletal st ructures are osteopenic. The bony thorax is grossly intact. IMPRESSION: 1. Cardiomegaly and cardiac pacemaker. 2. Extensive/diffuse multifocal airspace opacities have modestly cleared as compared to 07/22/2023. Co rrelate clinically. 3. Small pleural effusions. ACT 112: Negative or not required by law. Electronically signed by: Freddie Mae M.D. 07/27/2023 7:33 AM
--- NOTE | 2023-07-27 08:06 | Pulmonology Progress Note ---
Date of Service July 27, 2023 Assessment & Plan (1) Acute respiratory failure with hypoxia and hypercapnia: (2) Hypersensitivity pneumonitis: (3) Steroid dependent: (4) BERRY (obstructive sleep apnea): Plan Impression: 67-year-old female with history of hypersensitivity pneumonitis. Unclear how the diagnosis was made or what the offending agent is but she has had recurrent hospitalizations with progressive infiltrates. She is been treated aggressively with antibiotics with no significant improvement and is now both hypoxemic and hypercarbic. Her current oxygen requirement and respiratory status would preclude bronchoscopy at this point time. She is currently being treated for potentially reversible etiologies with high-dose steroids. CT chest 07/22/2023 personally reviewed: Bilateral patchy opacities appreciated especially in the upper lobes Small right-sided pleural effusion Minimal minimal mediastinal lymphadenopathy Bilateral opacities have worsened compared to CT chest 05/2023 2D echo 06/18/2023: EF 60-65%, grade 1 diastolic dysfunction, PASP 40 mmHg Recommendations: -- Acute on chronic hypoxic hypercapnic respiratory failure Likely secondary to exacerbation of underlying hypersensitive pneumonitis HFpEF also playing a sport On Solu-Medrol 125 mg Q8, continue with pantoprazole 40 mg twice daily while on high-dose steroids Consideration for mycophenolate or azathioprine based on patient's response PJP prophylaxis to be considered if patient needs to this admission. Too unstable for bronchoscopy Respiratory bio fire negative for everything on 07/22/2023 BNP 325 --BERRY Patient was intolerant to CPAP in the past --Obesity Advised to lose with diet and exercise --Chronic prednisone dependence 10 mg on a daily basis Used to be on 80 mg back in March 2023. The reason for prednisone is autoi mmune/hemolytic anemia Plan: In/out: -2 L since coming to the hospital Continue with diuretics to keep the patient negative balance O2 supplementation to keep oxygen saturation between 88-92%. BiPAP/CPAP nightly and as needed shortness of breath will also be beneficial Patient was on high-dose steroids since March and gradually being titrated off to 10 mg prednisone I will order PJP PCR from the sputum. We will consider empirically treating the patient with Bactrim. Patient's potassium is on the higher side. Bactrim might make it worse. Would recommend giving her potassium binder right now Case was discussed with Dr. Garner as well as RN at bedside Please note the above document was generated using voice recognition software. It may contain grammatical, syntax or spelling errors.Any formal questions or concerns about the content, text or information contained within the body of this dictation should be directly addressed to the provider for clarification. Admission and Anticipated Discharge Date Admission Date: July 22, 2023 Subjective Patient seen and examined at bedside. No acute distress. No adverse events ove rnight She was saturating 86% on 25 L, 80% FiO2. I increase it to 30 L. She does desaturate when she talks. When she is breathing through the nose her saturation is maintained around 90-92%. Denies any chest pain. Shortness of breath is still persistent especially on minimal exertion. Has not bringing up any phlegm. No dizziness, no headache Fair appetite Review of Systems Review of Systems: All systems reviewed & are unremarkable except as noted in Subjective Physical Exam Physical Exam: Constitutional: No acute distress HEENT: EOMI, PERRLA Respiratory system: Decreased air entry bilaterally, no wheeze, rhonchi, positive crackles appreciated bilaterally posteriorly and anteriorly CVS: S1-S2 positive, no murmurs or gallops Abdomen: Soft, nontender, nondistended, positive bowel sounds x4 Extremities: +2 pulses bilaterally radialis/ dorsalis pedis, no cyanosis, +1 pitting edema bilateral lower extremity Neuro: Awake alert oriented x3 Psych: Normal mood and affect G/U: Positive [place] Skin: no rashes, warm and dry Lymphatic: no cervical or axillary lymphadenopathy Results & Data Results & Data Vital Signs (Past 12 Hours) Vital Signs Temp Pulse Pulse Resp BP Pulse Ox O2 Del Method 07/27/23 07:20 18 90 High Flow Nasal Cannula 07/27/23 04:59 61 22 93 07/27/23 02:58 36.6 C 63 20 137/82 89 L High Flow Nasal Cannula 07/26/23 22:00 High Flow Nasal Cannula, Other 07/26/23 22:05 66 07/27/23 02:39 64 19 93 High Flow Nasal Cannula 07/27/23 02:38 64 19 93 Free Flow/Blow-by 07/26/23 23:13 36.8 C 70 20 136/75 90 High Flow Nasal Cannula 07/26/23 22:47 67 22 92 High Flow Nasal Cannula 07/26/23 20:12 37.0 C 71 27 H 136/75 90 High Flow Nasal Cannula O2 Flow Rate FiO2 07/27/23 07:20 25 80 07/27/23 04:59 60 07/27/23 02:58 25 07/26/23 22:00 25 80 07/26/23 22:05 07/27/23 02:39 25 75 07/27/23 02:38 25 75 07/26/23 23:13 25 07/26/23 22:47 25 80 07/26/23 20:12 25 Laboratory Results 07/27/23 05:37 07/27/23 05:37 PG Care Time/CCT Total # of Minutes Spent Total Time Spent with Patient: Total time spent is greater than 50% in coordination of care (as documented) at patient's floor/unit and/or counseling patient: Coding Level of Care Code 44866 SUB INP/OBS CARE 3/50MIN Diagnoses Acute respiratory failure with hypoxia and hypercapnia J96.01; J96.02 Hypersensitivity pneumonitis J67.9 Steroid dependent F19.20 BERRY (obstructive sleep apnea) G47.33
[2023-07-27] MEDS: SERTRALINE HCL 100 MG TABLET PO SCH (08:27)
[2023-07-27] MEDS: SOTALOL HCL 80 MG TAB PO SCH ×2 (08:27→20:07)
[2023-07-27] MEDS: LORATADINE 10 MG TAB PO SCH (08:27)
[2023-07-27] MEDS: LORazepam 0.5 MG TAB PO PRN ×2 (08:27→17:58)
[2023-07-27] MEDS: amLODIPine BESYLATE 5 MG TAB PO SCH (08:27)
[2023-07-27] MEDS: PANTOprazole 40 MG TAB PO SCH ×2 (08:27→20:07)
[2023-07-27] MEDS: CHOLECALCIFEROL 1,000 UNITS 25 MCG TAB PO SCH (08:27)
[2023-07-27] MEDS: MAGNESIUM CHLORIDE W/CALCIUM 64MG DELAYED REL TAB PO SCH ×2 (08:27→20:08)
[2023-07-27] MEDS: guaiFENesin 600 MG TABCR PO SCH ×2 (08:28→20:06)
[2023-07-27] MEDS: GABAPENTIN 300 MG CAP PO SCH ×3 (08:28→20:05)
[2023-07-27] MEDS: DOCUSATE SODIUM 100 MG CAP PO SCH ×2 (08:28→20:05)
[2023-07-27] MEDS: FOLIC ACID 1 MG TAB PO SCH (08:28)
--- NOTE | 2023-07-27 12:06 | Hospitalist Progress Note ---
Date of Service July 27, 2023 Assessment & Plan (1) Acute respiratory failure with hypoxia and hypercapnia: (2) Acute dyspnea: (3) BERRY (obstructive sleep apnea): (4) Acute exacerbation of CHF (congestive heart failure): (5) Paroxysmal atrial fibrillation: (6) Pacemaker: (7) CKD (chronic kidney disease), stage III: (8) Obesity, morbid, BMI 40.0-49.9: (9) Chronic anemia: (10) GERD (gastroesophageal reflux disease): (11) HTN (hypertension): Plan: Acute on chronic respiratory failure with hypoxia and hypercarbia Chronic hypersensitivity pneumonitis Pulmonary hypertension BERRY 67-year-old female with history of chronic hypersensitive pneumonitis with multiple hospitalization presented with increasing shortness of breath. At baseline she uses 5 L of oxygen at rest. As per her outpatient pulmonology; HP panel was checked which showed sensitivity to several molds. Autoimmune panel are negative. - CT chest reviewed personally: Progression of extensive multifocal consolidation and groundglass opacities within the lungs since CT of May 19, 2023. These are nonspecific. Primary considerations include multifocal pneumonia, pulmonary edema and ARDS. Interval development of small right and trace left pleural effusions. Moderate cardiomegaly and coronary artery calcification. Mild dilatation of the central pulmonary arteries which raises the possibility of pulmonary arterial hypertension. -Repeat chest x-ray done on July 27 personally reviewed; slight improvement in the groundglass opacities. -Wean down oxygen as tolerated to keep SPO2 around 88 to 89%. - Patient seen by pulmonology; currently on trial of high-dose steroids with 125 Solu-Medrol IV every 8 hours since July 23 to see if patient will respond to that. Repeat HP panel and autoimmune panel. Also, PJP PCR sent. -Discontinue antibiotic for now. Monitor closely. Patient is afebrile, with no leukocytosis and no elevation in procalcitonin. -Lasix 40 mg IV twice daily. 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 QTc of 464 Not anticoagulated due to history of chronic anemia and bleeding issues Continue telemetry monitoring Hemolytic anemia: Follows with heme-onc, currently on prednisone 10 mg daily. Prednisone currently on hold as patient is on high-dose steroids. Given 1 unit of packed RBC on July 24, 2023. Hemoglobin around 8-9 CKD stage III - chronic, stable, c GERD -Cont protonix DVT ppx: Heparin FEN/GI: General Lines: 2 PIV CODE: DNR/DNI Dispo: From home, PT OT ordered. Patient is open to going to rehab. Time spent evaluating patient, direct bedside care, chart review, placing orders, interpretation of diagnostic studies, discussion with consultants, patient, and family members, as well as other required patient management activities is 60-minute Please note the above document was generated using voice recognition software. It may contain grammatical, syntax or spelling errors. Any formal questions or concerns about the content, text or information contained within the body of this dictation should be directly addressed to the provider for clarification Admission and Anticipated Discharge Date Admission Date: July 22, 2023 Subjective Patient seen and examined at bedside. She is sitting up on the chair at the side of the bed. Continues to be on high flow nasal cannula Reports that she is feeling slightly better. Review of Systems Review of Systems: All systems reviewed & are unremarkable except as noted in Subjective Physical Exam Physical Exam: General: awake, alert, + morbidly obese female, + Head: Normocephalic, atraumatic ENT: PERRL, EOMI, no pharyngeal exudate, mucous membranes moist Chest: Bilateral crackles heard up to mid lung field. Cardiac: Regular rate and rhythm, +systolic murmur grade II/, no JVD, normal peripheral pulses, good capillary refill Abdominal: NABS x 4 quadrants, soft, nondistended, nontender to palpation, no rebound or guarding Extremities: Normal inspection, + minimal peripheral edema or erythema, calfs nontender to palpation, + left foot leg wound healing Psych: Normal mood and affect Neuro: AAO x 3, strength intact bilaterally and rated 5/5, no motor deficits, speech is clear, no peripheral sensory deficits Results & Data Results & Data Vital Signs (Past 12 Hours) Vital Signs Temp Pulse Pulse Resp BP BP Pulse Ox 07/27/23 11:49 37.4 C 66 16 146/74 H 91 07/27/23 11:00 62 18 92 07/27/23 08:00 07/27/23 07:00 60 07/27/23 08:02 36.6 C 67 15 146/74 H 90 07/27/23 07:20 18 90 07/27/23 04:59 61 22 93 07/27/23 02:58 36.6 C 63 20 137/82 89 L 07/27/23 02:39 64 19 93 07/27/23 02:38 64 19 93 O2 Del Method O2 Flow Rate FiO2 07/27/23 11:49 High Flow Nasal Cannula 30 07/27/23 11:00 High Flow Nasal Cannula 30 80 07/27/23 08:00 High Flow Nasal Cannula 30 07/27/23 07:00 07/27/23 08:02 High Flow Nasal Cannula 25 80 07/27/23 07:20 High Flow Nasal Cannula 25 80 07/27/23 04:59 60 07/27/23 02:58 High Flow Nasal Cannula 25 07/27/23 02:39 High Flow Nasal Cannula 25 75 07/27/23 02:38 Free Flow/Blow-by 25 75 Laboratory Results Laboratory Results WBC 4.66 K/ul (4.8-10.8) L 07/27/23 05:37 RBC 3.15 M/uL (4.20-5.40) L 07/27/23 05:37 Hgb 8.3 g/dl (12.0-16.0) L 07/27/23 05:37 Hct 27.9 % (37.0-47.0) L 07/27/23 05:37 MCV 88.6 fL (80.0-100.0) 07/27/23 05:37 MCH 26.3 pg (25.0-34.0) 07/27/23 05:37 MCHC 29.7 g/dL (32.0-36.0) L 07/27/23 05:37 RDW Std Deviation 63.1 fL (36.4-46.3) H 07/27/23 05:37 RDW Coeff of Patrica 19.5 % (11.5-14.5) H 07/27/23 05:37 Plt Count 104 K/uL (130-400) L 07/27/23 05:37 MPV 11.0 fL (9.4-12.4) 07/27/23 05:37 Immature Gran % (Auto) 1.7 % 07/27/23 05:37 Neut % (Auto) 87.5 % 07/27/23 05:37 Lymph % (Auto) 6.7 % 07/27/23 05:37 Prentiss % (Auto) 4.1 % 07/27/23 05:37 Eos % (Auto) 0.0 % 07/27/23 05:37 Baso % (Auto) 0.0 % 07/27/23 05:37 Neut # (Auto) 4.08 K/uL (1.40-6.50) 07/27/23 05:37 Lymph # (Auto) 0.31 K/uL (1.20-3.40) L 07/27/23 05:37 Prentiss # (Auto) 0.19 K/uL (0.11-0.59) 07/27/23 05:37 Eos # (Auto) 0.00 K/uL (0.00-0.50) 07/27/23 05:37 Baso # (Auto) 0.00 K/uL (0.00-0.20) 07/27/23 05:37 Immature Gran # (Auto) 0.08 K/uL (0.01-0.20) 07/27/23 05:37 Absolute Nucleated RBC 0.02 K/uL (0.00-0.12) 07/27/23 05:37 Nucleated RBC % (auto) 0.4 % 07/27/23 05:37 Hyposegmented Neuts 1+ 07/22/23 12:39 Polychromasia 1+ 07/24/23 05:28 Basophilic Stippling 1+ 07/22/23 12:39 Anisocytosis Present 07/24/23 05:28 Tear Drop Cells 1+ 07/24/23 05:28 Stomatocytes 1+ 07/24/23 05:28 ESR 79 mm/hr (0-30) H 07/23/23 09:14 VBG pH 7.30 (7.36-7.41) L 07/22/23 17:31 VBG pCO2 93 mmHg (38-50) H 07/22/23 17:31 VBG pO2 59 mmHg 07/22/23 17:31 VBG HCO3 46 mmol/L 07/22/23 17:31 VBG O2 Saturation 88.2 % 07/22/23 17:31 VBG Base Excess 14.8 mEq/L 07/22/23 17:31 Sodium 136 mmol/L (136-145) 07/27/23 05:37 Potassium 5.2 mmol/L (3.5-5.1) H 07/27/23 05:37 Chloride 96 mmol/L (98-107) L 07/27/23 05:37 Carbon Dioxide 38 mmol/L (21-32) H 07/27/23 05:37 Anion Gap 2 (3-11) L 07/27/23 05:37 BUN 29 mg/dl (6-23) H 07/27/23 05:37 Creatinine 0.64 mg/dl (0.6-1.2) 07/27/23 05:37 Est Cr Clr Drug Dosing 100.9 ml/min 07/27/23 05:37 Est GFR ( Amer) 105.5 ml/min 07/27/23 05:37 Est GFR (Non-Af Amer) 91.0 ml/min 07/27/23 05:37 BUN/Creatinine Ratio 45.3 (10-20) H 07/27/23 05:37 Glucose 195 mg/dl (70-99(Fasting)) H 07/27/23 05:37 Lactate 0.8 mmol/L (0.4-2.0) 07/22/23 Unknown Calcium 9.1 mg/dl (8.6-10.3) 07/27/23 05:37 Magnesium 1.8 mg/dl (1.7-2.4) 07/23/23 06:46 Total Bilirubin 0.5 mg/dl (0.2-1.0) 07/25/23 06:15 Direct Bilirubin 0.1 mg/dl (0-0.2) 07/22/23 12:39 AST 14 U/L (13-39) 07/25/23 06:15 ALT 10 U/L (7-52) 07/25/23 06:15 Alkaline Phosphatase 71 U/L (34-104) 07/25/23 06:15 Troponin I High Sens 7.3 pg/ml (0-14) 07/22/23 12:39 C-Reactive Protein 2.90 mg/dl (0-0.5) H 07/23/23 09:14 B-Natriuretic Peptide 325 pg/ml (0-100) H 07/22/23 12:39 Total Protein 6.9 gm/dl (6.0-8.3) 07/25/23 06:15 Albumin 3.6 gm/dl (3.4-5.0) 07/25/23 06:15 Globulin 3.3 gm/dl (2.5-4.0) 07/25/23 06:15 Albumin/Globulin Ratio 1.1 (0.9-2) 07/25/23 06:15 Procalcitonin 0.05 ng/ml (0-0.5) 07/22/23 12:39 Urine Color Yellow 07/22/23 Unknown Urine Appearance Clear (Clear) 07/22/23 Unknown Urine pH 6.0 (4.5-7.5) 07/22/23 Unknown Ur Specific [place] 1.016 (1.000-1.030) 07/22/23 Unknown Urine Protein Negative (Negative) 07/22/23 Unknown Urine Glucose (UA) Negative (Negative) 07/22/23 Unknown Urine Ketones Negative (Negative) 07/22/23 Unknown Urine Blood Negative (Negative) 07/22/23 Unknown Urine Nitrite Negative (Negative) 07/22/23 Unknown Urine Bilirubin Negative (Negative) 07/22/23 Unknown Urine Urobilinogen Negative (Negative) 07/22/23 Unknown Ur Leukocyte Esterase 1+ (Negative) H 07/22/23 Unknown Urine WBC (Auto) 5-10 /hpf (0-5) H 07/22/23 Unknown Urine RBC (Auto) 0-4 /hpf (0-4) 07/22/23 Unknown U Hyaline Cast (Auto) 0 /lpf (0-5) 07/22/23 Unknown U Epithel Cells (Auto) 0-5 /lpf (0-5) 07/22/23 Unknown Urine Bacteria (Auto) Negative (Negative) 07/22/23 Unknown Adenovirus (PCR) Not Detected (NotDetected) 07/22/23 17:31 B. pertussis DNA (PCR) Not Detected (NotDetected) 07/22/23 17:31 B.parapertussis DNA PCR Not Detected (NotDetected) 07/22/23 17:31 C. pneumoniae DNA (PCR) Not Detected (NotDetected) 07/22/23 17:31 Coronavirus OC43 (PCR) Not Detected (NotDetected) 07/22/23 17:31 Coronavirus HKU1 (PCR) Not Detected (NotDetected) 07/22/23 17:31 Coronavirus 229E (PCR) Not Detected (NotDetected) 07/22/23 17:31 SARS-CoV-2 (PCR) Not Detected (NotDetected) 07/22/23 17:31 Coronavirus NL63 (PCR) Not Detected (NotDetected) 07/22/23 17:31 Human Metapneumovir PCR Not Detected (NotDetected) 07/22/23 17:31 Influenza Type A (PCR) Not Detected (NotDetected) 07/22/23 17:31 Influenza Type B (PCR) Not Detected (NotDetected) 07/22/23 17:31 M. pneumoniae (PCR) Not Detected (NotDetected) 07/22/23 17:31 Parainfluenza 1 (PCR) Not Detected (NotDetected) 07/22/23 17:31 Parainfluenza 2 (PCR) Not Detected (NotDetected) 07/22/23 17:31 Parainfluenza 3 (PCR) Not Detected (NotDetected) 07/22/23 17:31 Parainfluenza 4 (PCR) Not Detected (NotDetected) 07/22/23 17:31 RSV (PCR) Not Detected (NotDetected) 07/22/23 17:31 Entero/Rhino (PCR) Not Detected (NotDetected) 07/22/23 17:31 Blood Type A Positive 07/24/23 10:58 Antibody Screen NEGATIVE 07/24/23 10:58 Crossmatch See Detail 07/24/23 10:58 Impressions Chest CTA 07/22/23 14:48 CT ANGIOGRAPHY OF THE CHEST, PULMONARY EMBOLUS PROTOCOL CLINICAL HISTORY: Shortness of breath COMPARISON STUDY: Chest CT May 19, 2023. Chest radiograph July 09, 2023 and July 22, 2023. TECHNIQUE: Following IV administration of 118 mL of Optiray, helical axial images of the chest were obtained utilizing the pulmonary embolus protocol. Maximal intensity projections and sagittal and coronal reformats were viewed on an independent 3D workstation. IV contrast was administered without complication. Automated exposure control was utilized for the study. A dose lowering technique was utilized adhering to the principles of ALARA. CT DOSE: 1064.73 mGy.cm FINDINGS: No pulmonary emboli are identified although the segmental and subse gmental pulmonary arteries are suboptimally assessed. There is mild dilatation of the central pulmonary arteries. There is no thoracic aortic dissection. A dual-lead left subclavian pacer is in place. There is no pericardial effusion. Mildly enlarged mediastinal and bilateral hilar lymph nodes are similar to CT of May 19, 2023. Index prevascular node on image 120 at 199 measures 1 cm short axis diameter. Index left hilar node on image 108 measures 1.4 cm. Cardiomegaly is unchanged. Small right and trace left pleural effusions have developed. There is no pneumothorax. Extensive multifocal consolidation and groundglass opacities within the lungs have progressed since CT of May 19, 2023. The central airways are patent. There is no cavitation. Old mild T5 compression deformity is unchanged. Splenomegaly is unchanged. The liver is cirrhotic. IMPRESSION: 1. No pulmonary emboli identified although segmental and subsegmental pulmonary arteries suboptimally assessed. 2. Progression of extensive multifocal consolidation and groundglass opacities within the lungs since CT of May 19, 2023. These are nonspecific. Primary considerations include multifocal pneumonia, pulmonary edema and ARDS. 3. Interval development of small right and trace left pleural effusions. 4. Moderate cardiomegaly and coronary artery calcification. Mild dilatation of the central pulmonary arteries which raises the possibility of pulmonary arterial hypertension. 5. No change in mild mediastinal and bilateral hilar lymphadenopathy. This is nonspecific and may be reactive. ACT 112: Negative or not required by law. Electronically signed by: Pro Joya M.D. 07/22/2023 3:46 PM Chest X-Ray 07/27/23 07:00 SINGLE VIEW CHEST CLINICAL HISTORY: Dyspnea FINDINGS: An AP, portable, upright chest radiograph is compared to chest x-ray and chest CT dated 07/22/2018. A 2-lead cardiac pacemaker is unchanged in position. The heart is enlarged noting atherosclerotic calcification of the thoracic aorta. Extensive/diffuse airspace opacities have modestly cleared as compared to 07/22/2023. Small pleural effusions are noted. No pneumothorax is seen. The skeletal structures are osteopenic. The bony thorax is grossly intact. IMPRESSION: 1. Cardiomegaly and cardiac pacemaker. 2. Extensive/diffuse multifocal airspace opacities have modestly cleared as compared to 07/22/2023. Correlate clinically. 3. Small pleural effusions. ACT 112: Negative or not required by law. Electronically signed by: Freddie Mae M.D. 07/27/2023 7:33 AM (10) GERD (gastroesophageal reflux disease) Esophagitis presence: without esophagitis Qualified Code(s): K21.9 - Gastro- esophageal reflux disease without esophagitis (11) HTN (hypertension) Hypertension type: unspecified Qualified Code(s): I10 - Essential (primary) hypertension
[2023-07-27] MEDS: FUROSEMIDE 40 MG/4 ML VIAL IV SCH (14:45)
[2023-07-27] MEDS: MONTELUKAST SODIUM 10 MG TABLET PO SCH (20:08)
[2023-07-28] MEDS: ALBUT/IPRATROP 3MG/0.5MG NEB 3 ML VIAL NEB SCH ×6 (02:40→22:19)
[2023-07-28] MEDS: LORazepam 0.5 MG TAB PO PRN ×2 (04:58→17:35)
[2023-07-28] MEDS: HEPARIN SOD 5,000 UNIT/0.5 ML VIAL SQ SCH ×3 (05:54→20:55)
[2023-07-28 06:43] LABS: Hematocrit (blood only) 27.9 % (37.0-47.0); Hemoglobin 8.3 g/dl (12.0-16.0); Immature Granulocytes # (auto) 0.14 K/uL (0.01-0.20); Immature Granulocytes % (auto) 2.6 %; Lymphocytes # (auto) 0.35 K/uL (1.20-3.40); Lymphocytes % (auto) 6.5 %; Mean Corpuscular Hemoglobin 26.6 pg (25.0-34.0); Mean Corpuscular Hgb Conc 29.7 g/dL (32.0-36.0); Mean Corpuscular Volume 89.4 fL (80.0-100.0); Mean Platelet Volume 11.6 fL (9.4-12.4); Monocytes # (auto) 0.31 K/uL (0.11-0.59); Monocytes % (auto) 5.8 %; Neutrophils # (auto) 4.56 K/uL (1.40-6.50); Neutrophils % (auto) 85.1 %; Nucleated RBC # (auto) 0.04 K/uL (0.00-0.12); Nucleated RBC % (auto) 0.7 %; Platelet Count 112 K/uL (130-400); RDW Coefficient of Variation 19.3 % (11.5-14.5); RDW Standard Deviation 63.7 fL (36.4-46.3); Red Blood Count 3.12 M/uL (4.20-5.40); White Blood Count 5.36 K/ul (4.8-10.8)
[2023-07-28] MEDS: SODIUM CHLOR 7% 4 ML NEB NEB SCH ×2 (07:19→20:08)
[2023-07-28 07:23] LABS: BUN Creatinine Ratio 42.3 (10-20); Calcium 9.2 mg/dl (8.6-10.3); Creatinine Clr Calc Pharmacy 91.4 ml/min; Est GFR (African American) 100.7 ml/min; Est GFR (Non-African American) 86.9 ml/min; Potassium 4.5 mmol/L (3.5-5.1)
[2023-07-28] MEDS: FUROSEMIDE 40 MG/4 ML VIAL IV SCH ×2 (08:31→14:58)
[2023-07-28] MEDS: PANTOprazole 40 MG TAB PO SCH ×2 (08:31→20:55)
[2023-07-28] MEDS: FOLIC ACID 1 MG TAB PO SCH (08:31)
[2023-07-28] MEDS: GABAPENTIN 300 MG CAP PO SCH ×3 (08:32→20:55)
[2023-07-28] MEDS: methylPREDNISolone 125 MG in SYRINGE 0 ML IV SCH (08:32)
[2023-07-28] MEDS: CHOLECALCIFEROL 1,000 UNITS 25 MCG TAB PO SCH (08:32)
[2023-07-28] MEDS: MAGNESIUM CHLORIDE W/CALCIUM 64MG DELAYED REL TAB PO SCH ×2 (08:33→20:55)
[2023-07-28] MEDS: SOTALOL HCL 80 MG TAB PO SCH ×2 (08:33→20:55)
[2023-07-28] MEDS: LORATADINE 10 MG TAB PO SCH (08:33)
[2023-07-28] MEDS: amLODIPine BESYLATE 5 MG TAB PO SCH (08:33)
[2023-07-28] MEDS: SERTRALINE HCL 100 MG TABLET PO SCH (08:34)
[2023-07-28] MEDS: guaiFENesin 600 MG TABCR PO SCH ×2 (08:34→20:55)
[2023-07-28] MEDS: DOCUSATE SODIUM 100 MG CAP PO SCH ×2 (08:34→20:54)
--- NOTE | 2023-07-28 10:42 | Pulmonology Progress Note ---
Date of Service July 28, 2023 Assessment & Plan (1) Acute respiratory failure with hypoxia and hypercapnia: (2) Hypersensitivity pneumonitis: (3) Steroid dependent: (4) BERRY (obstructive sleep apnea): Plan Impression: 67-year-old female with history of hypersensitivity pneumonitis. Unclear how the diagnosis was made or what the offending agent is but she has had recurrent hospitalizations with progressive infiltrates. She is been treated aggressively with antibiotics with no significant improvement and is now both hypoxemic and hypercarbic. Her current oxygen requirement and respiratory status would preclude bronchoscopy at this point time. She is currently being treated for potentially reversible etiologies with high-dose steroids. CT chest 07/22/2023 personally reviewed: Bilateral patchy opacities appreciated especially in the upper lobes Small right-sided pleural effusion Minimal minimal mediastinal lymphadenopathy Bilateral opacities have worsened compared to CT chest 05/2023 2D echo 06/18/2023: EF 60-65%, grade 1 diastolic dysfunction, PASP 40 mmHg Recommendations: -- Acute on chronic hypoxic hypercapnic respiratory failure Likely secondary to exacerbation of underlying hypersensitive pneumonitis HFpEF also playing a sport On Solu-Medrol 125 mg Q8, continue with pantoprazole 40 mg twice daily while on high-dose steroids Consideration for mycophenolate or azathioprine based on patient's response PJP prophylaxis to be considered if patient needs to this admission. Too unstable for bronchoscopy Respiratory bio fire negative for everything on 07/22/2023 BNP 325 --BERRY Patient was intolerant to CPAP in the past --Obesity Advised to lose with diet and exercise --Chronic prednisone dependence 10 mg on a daily basis Used to be on 80 mg back in March 2023. The reason for prednisone is autoi mmune/hemolytic anemia Plan: In/out: -2.7 L since coming to the hospital Follow-up PJP PCR from sputum. I will decrease the Solu-Medrol to 60 mg Q8. I will empirically start treating the patient for PJP pneumonia. For oral thrush we will give the patient nystatin swish and swallow Continue with diuretics to keep the patient negative balance O2 supplementation to keep oxygen saturation between 88-92%. BiPAP/CPAP nightly and as needed shortness of breath will also be beneficial Case was discussed with Dr. Garner as well as RN at bedside Please note the above document was generated using voice recognition software. It may contain grammatical, syntax or spelling errors.Any formal questions or concerns about the content, text or information contained within the body of this dictation should be directly addressed to the provider for clarification. Admission and Anticipated Discharge Date Admission Date: July 22, 2023 Subjective Patient seen and examined at bedside. No acute distress, no adverse events overnight She was saturating 88-89% on 30 L high flow, 80% FiO2 She is not bringing up any phlegm Denies any chest pain. Overall she is feeling the same. She is a little bit emotionally depressed as she is not improving. Emotional support was given to the patient Review of Systems Review of Systems: All systems reviewed & are unremarkable except as noted in Subjective Physical Exam Physical Exam: Constitutional: No acute distress HEENT: EOMI, PERRLA Respiratory system: Decreased air entry bilaterally, no wheeze, rhonchi, positive crackles appreciated bilaterally posteriorly and anteriorly CVS: S1-S2 positive, no murmurs or gallops Abdomen: Soft, nontender, nondistended, positive bowel sounds x4 Extremities: +2 pulses bilaterally radialis/ dorsalis pedis, no cyanosis, +1 pitting edema bilateral lower extremity Neuro: Awake alert oriented x3 Psych: Normal mood and affect G/U: Positive [place] Skin: no rashes, warm and dry Lymphatic: no cervical or axillary lymphadenopathy Results & Data Results & Data Vital Signs (Past 12 Hours) Vital Signs Temp Pulse Resp BP BP Pulse Ox O2 Del Method 07/28/23 07:52 36.4 C L 69 15 163/93 H 93 High Flow Nasal Cannula 07/28/23 07:22 68 20 93 High Flow Nasal Cannula 07/28/23 07:20 68 20 93 High Flow Nasal Cannula 07/28/23 03:07 36.5 C 70 18 154/97 H 83 L High Flow Nasal Cannula 07/28/23 02:40 65 22 90 High Flow Nasal Cannula 07/27/23 23:03 65 18 92 High Flow Nasal Cannula 07/27/23 22:43 36.7 C 68 19 134/66 92 High Flow Nasal Cannula O2 Flow Rate FiO2 07/28/23 07:52 30 75 07/28/23 07:22 30 75 07/28/23 07:20 30 75 07/28/23 03:07 07/28/23 02:40 30 75 07/27/23 23:03 30 75 07/27/23 22:43 Laboratory Results 07/28/23 05:26 07/28/23 05:26 PG Care Time/CCT Total # of Minutes Spent Total Time Spent with Patient: Total time spent is greater than 50% in coordination of care (as documented) at patient's floor/unit and/or counseling patient: Coding Level of Care Code 73109 SUB INP/OBS CARE 3/50MIN Diagnoses Acute respiratory failure with hypoxia and hypercapnia J96.01; J96.02 Hypersensitivity pneumonitis J67.9 Steroid dependent F19.20 BERRY (obstructive sleep apnea) G47.33
--- NOTE | 2023-07-28 11:12 | Hospitalist Progress Note ---
Date of Service July 28, 2023 Assessment & Plan (1) Acute respiratory failure with hypoxia and hypercapnia: (2) Acute dyspnea: (3) BERRY (obstructive sleep apnea): (4) Acute exacerbation of CHF (congestive heart failure): (5) Paroxysmal atrial fibrillation: (6) Pacemaker: (7) CKD (chronic kidney disease), stage III: (8) Obesity, morbid, BMI 40.0-49.9: (9) Chronic anemia: (10) GERD (gastroesophageal reflux disease): (11) HTN (hypertension): Plan: Acute on chronic respiratory failure with hypoxia and hypercarbia Chronic hypersensitivity pneumonitis Pulmonary hypertension BERRY 67-year-old female with history of chronic hypersensitive pneumonitis with multiple hospitalization presented with increasing shortness of breath. At baseline she uses 5 L of oxygen at rest. As per her outpatient pulmonology; HP panel was checked which showed sensitivity to several molds. Autoimmune panel are negative. - CT chest reviewed personally: Progression of extensive multifocal consolidation and groundglass opacities within the lungs since CT of May 19, 2023. These are nonspecific. Primary considerations include multifocal pneumonia, pulmonary edema and ARDS. Interval development of small right and trace left pleural effusions. Moderate cardiomegaly and coronary artery calcification. Mild dilatation of the central pulmonary arteries which raises the possibility of pulmonary arterial hypertension. -Repeat chest x-ray done on July 27 personally reviewed; slight improvement in the groundglass opacities. -Wean down oxygen as tolerated to keep SPO2 around 88 to 89%. - Patient seen by pulmonology; was placed on high-dose steroid with 125 mg methylprednisolone from July 23 to July 27. Dose of steroid decreased to 60 mg 3 times daily from today. To be started on Bactrim for PJP empirically. We will see the response. Repeat HP panel and autoimmune panel pending. -Lasix 40 mg IV twice daily. Continue airway clearance therapy -Wean down oxygen as tolerated to keep SPO2 around 88 to 92% Oral thrush Developed on high-dose steroid. Started on nystatin p.o. 4 times daily. 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 QTc of 464 Not anticoagulated due to history of chronic anemia and bleeding issues Continue telemetry monitoring Hemolytic anemia: Follows with heme-onc, currently on prednisone 10 mg daily. Prednisone currently on hold as patient is on high-dose steroids. Given 1 unit of packed RBC on July 24, 2023. Hemoglobin around 8-9 CKD stage III - chronic, stable, c GERD -Cont protonix DVT ppx: Heparin FEN/GI: General Lines: 2 PIV CODE: DNR/DNI Dispo: From home, PT OT ordered. Patient is open to going to rehab. she continues to be hospitalized as she is requiring high flow nasal cannula to maintain saturation. Time spent evaluating patient, direct bedside care, chart review, placing orders, interpretation of diagnostic studies, discussion with consultants, patient, and family members, as well as other required patient management activities is 60-minute Please note the above document was generated using voice recognition software. It may contain grammatical, syntax or spelling errors. Any formal questions or concerns about the content, text or information contained within the body of this dictation should be directly addressed to the provider for clarification Admission and Anticipated Discharge Date Admission Date: July 22, 2023 Subjective Patient seen and examined at bedside. She continues to require high flow oxygen. Reports she is comfortable on current oxygen requirement. Denies any coughing. Review of Systems Review of Systems: All systems reviewed & are unremarkable except as noted in Subjective Physical Exam Physical Exam: General: awake, alert, + morbidly obese female, + Head: Normocephalic, atraumatic ENT: PERRL, EOMI, no pharyngeal exudate, mucous membranes moist Chest: Bilateral crackles heard up to mid lung field. Cardiac: Regular rate and rhythm, +systolic murmur grade II/, no JVD, normal peripheral pulses, good capillary refill Abdominal: NABS x 4 quadrants, soft, nondistended, nontender to palpation, no rebound or guarding Extremities: Normal inspection, + minimal peripheral edema or erythema, calfs nontender to palpation, + left foot leg wound healing Psych: Normal mood and affect Neuro: AAO x 3, strength intact bilaterally and rated 5/5, no motor deficits, s peech is clear, no peripheral sensory deficits Results & Data Results & Data Vital Signs (Past 12 Hours) Vital Signs Temp Pulse Resp BP BP Pulse Ox O2 Del Method 07/28/23 07:52 36.4 C L 69 15 163/93 H 93 High Flow Nasal Cannula 07/28/23 07:22 68 20 93 High Flow Nasal Cannula 07/28/23 07:20 68 20 93 High Flow Nasal Cannula 07/28/23 03:07 36.5 C 70 18 154/97 H 83 L High Flow Nasal Cannula 07/28/23 02:40 65 22 90 High Flow Nasal Cannula O2 Flow Rate FiO2 07/28/23 07:52 30 75 07/28/23 07:22 30 75 07/28/23 07:20 30 75 07/28/23 03:07 07/28/23 02:40 30 75 Laboratory Results Laboratory Results WBC 5.36 K/ul (4.8-10.8) 07/28/23 05:26 RBC 3.12 M/uL (4.20-5.40) L 07/28/23 05:26 Hgb 8.3 g/dl (12.0-16.0) L 07/28/23 05:26 Hct 27.9 % (37.0-47.0) L 07/28/23 05:26 MCV 89.4 fL (80.0-100.0) 07/28/23 05:26 MCH 26.6 pg (25.0-34.0) 07/28/23 05:26 MCHC 29.7 g/dL (32.0-36.0) L 07/28/23 05:26 RDW Std Deviation 63.7 fL (36.4-46.3) H 07/28/23 05:26 RDW Coeff of Patrica 19.3 % (11.5-14.5) H 07/28/23 05:26 Plt Count 112 K/uL (130-400) L 07/28/23 05:26 MPV 11.6 fL (9.4-12.4) 07/28/23 05:26 Immature Gran % (Auto) 2.6 % 07/28/23 05:26 Neut % (Auto) 85.1 % 07/28/23 05:26 Lymph % (Auto) 6.5 % 07/28/23 05:26 Love % (Auto) 5.8 % 07/28/23 05:26 Eos % (Auto) 0.0 % 07/28/23 05:26 Baso % (Auto) 0.0 % 07/28/23 05:26 Neut # (Auto) 4.56 K/uL (1.40-6.50) 07/28/23 05:26 Lymph # (Auto) 0.35 K/uL (1.20-3.40) L 07/28/23 05:26 Love # (Auto) 0.31 K/uL (0.11-0.59) 07/28/23 05:26 Eos # (Auto) 0.00 K/uL (0.00-0.50) 07/28/23 05:26 Baso # (Auto) 0.00 K/uL (0.00-0.20) 07/28/23 05:26 Immature Gran # (Auto) 0.14 K/uL (0.01-0.20) 07/28/23 05:26 Absolute Nucleated RBC 0.04 K/uL (0.00-0.12) 07/28/23 05:26 Nucleated RBC % (auto) 0.7 % 07/28/23 05:26 Hyposegmented Neuts 1+ 07/22/23 12:39 Polychromasia 1+ 07/24/23 05:28 Basophilic Stippling 1+ 07/22/23 12:39 Anisocytosis Present 07/24/23 05:28 Tear Drop Cells 1+ 07/24/23 05:28 Stomatocytes 1+ 07/24/23 05:28 ESR 79 mm/hr (0-30) H 07/23/23 09:14 VBG pH 7.30 (7.36-7.41) L 07/22/23 17:31 VBG pCO2 93 mmHg (38-50) H 07/22/23 17:31 VBG pO2 59 mmHg 07/22/23 17:31 VBG HCO3 46 mmol/L 07/22/23 17:31 VBG O2 Saturation 88.2 % 07/22/23 17:31 VBG Base Excess 14.8 mEq/L 07/22/23 17:31 Sodium 137 mmol/L (136-145) 07/28/23 05:26 Potassium 4.5 mmol/L (3.5-5.1) 07/28/23 05:26 Chloride 95 mmol/L (98-107) L 07/28/23 05:26 Carbon Dioxide 39 mmol/L (21-32) H 07/28/23 05:26 Anion Gap 3 (3-11) 07/28/23 05:26 BUN 30 mg/dl (6-23) H 07/28/23 05:26 Creatinine 0.71 mg/dl (0.6-1.2) 07/28/23 05:26 Est Cr Clr Drug Dosing 91.4 ml/min 07/28/23 05:26 Est GFR ( Amer) 100.7 ml/min 07/28/23 05:26 Est GFR (Non-Af Amer) 86.9 ml/min 07/28/23 05:26 BUN/Creatinine Ratio 42.3 (10-20) H 07/28/23 05:26 Glucose 182 mg/dl (70-99(Fasting)) H 07/28/23 05:26 Lactate 0.8 mmol/L (0.4-2.0) 07/22/23 Unknown Calcium 9.2 mg/dl (8.6-10.3) 07/28/23 05:26 Magnesium 1.8 mg/dl (1.7-2.4) 07/23/23 06:46 Total Bilirubin 0.5 mg/dl (0.2-1.0) 07/25/23 06:15 Direct Bilirubin 0.1 mg/dl (0-0.2) 07/22/23 12:39 AST 14 U/L (13-39) 07/25/23 06:15 ALT 10 U/L (7-52) 07/25/23 06:15 Alkaline Phosphatase 71 U/L (34-104) 07/25/23 06:15 Troponin I High Sens 7.3 pg/ml (0-14) 07/22/23 12:39 C-Reactive Protein 2.90 mg/dl (0-0.5) H 07/23/23 09:14 B-Natriuretic Peptide 325 pg/ml (0-100) H 07/22/23 12:39 Total Protein 6.9 gm/dl (6.0-8.3) 07/25/23 06:15 Albumin 3.6 gm/dl (3.4-5.0) 07/25/23 06:15 Globulin 3.3 gm/dl (2.5-4.0) 07/25/23 06:15 Albumin/Globulin Ratio 1.1 (0.9-2) 07/25/23 06:15 Procalcitonin 0.05 ng/ml (0-0.5) 07/22/23 12:39 Urine Color Yellow 07/22/23 Unknown Urine Appearance Clear (Clear) 07/22/23 Unknown Urine pH 6.0 (4.5-7.5) 07/22/23 Unknown Ur Specific [place] 1.016 (1.000-1.030) 07/22/23 Unknown Urine Protein Negative (Negative) 07/22/23 Unknown Urine Glucose (UA) Negative (Negative) 07/22/23 Unknown Urine Ketones Negative (Negative) 07/22/23 Unknown Urine Blood Negative (Negative) 07/22/23 Unknown Urine Nitrite Negative (Negative) 07/22/23 Unknown Urine Bilirubin Negative (Negative) 07/22/23 Unknown Urine Urobilinogen Negative (Negative) 07/22/23 Unknown Ur Leukocyte Esterase 1+ (Negative) H 07/22/23 Unknown Urine WBC (Auto) 5-10 /hpf (0-5) H 07/22/23 Unknown Urine RBC (Auto) 0-4 /hpf (0-4) 07/22/23 Unknown U Hyaline Cast (Auto) 0 /lpf (0-5) 07/22/23 Unknown U Epithel Cells (Auto) 0-5 /lpf (0-5) 07/22/23 Unknown Urine Bacteria (Auto) Negative (Negative) 07/22/23 Unknown Adenovirus (PCR) Not Detected (NotDetected) 07/22/23 17:31 B. pertussis DNA (PCR) Not Detected (NotDetected) 07/22/23 17:31 B.parapertussis DNA PCR Not Detected (NotDetected) 07/22/23 17:31 C. pneumoniae DNA (PCR) Not Detected (NotDetected) 07/22/23 17:31 Coronavirus OC43 (PCR) Not Detected (NotDetected) 07/22/23 17:31 Coronavirus HKU1 (PCR) Not Detected (NotDetected) 07/22/23 17:31 Coronavirus 229E (PCR) Not Detected (NotDetected) 07/22/23 17:31 SARS-CoV-2 (PCR) Not Detected (NotDetected) 07/22/23 17:31 Coronavirus NL63 (PCR) Not Detected (NotDetected) 07/22/23 17:31 Human Metapneumovir PCR Not Detected (NotDetected) 07/22/23 17:31 Influenza Type A (PCR) Not Detected (NotDetected) 07/22/23 17:31 Influenza Type B (PCR) Not Detected (NotDetected) 07/22/23 17:31 M. pneumoniae (PCR) Not Detected (NotDetected) 07/22/23 17:31 Parainfluenza 1 (PCR) Not Detected (NotDetected) 07/22/23 17:31 Parainfluenza 2 (PCR) Not Detected (NotDetected) 07/22/23 17:31 Parainfluenza 3 (PCR) Not Detected (NotDetected) 07/22/23 17:31 Parainfluenza 4 (PCR) Not Detected (NotDetected) 07/22/23 17:31 RSV (PCR) Not Detected (NotDetected) 07/22/23 17:31 Entero/Rhino (PCR) Not Detected (NotDetected) 07/22/23 17:31 Blood Type A Positive 07/24/23 10:58 Antibody Screen NEGATIVE 07/24/23 10:58 Crossmatch See Detail 07/24/23 10:58 Impressions Chest CTA 07/22/23 14:48 CT ANGIOGRAPHY OF THE CHEST, PULMONARY EMBOLUS PROTOCOL CLINICAL HISTORY: Shortness of breath COMPARISON STUDY: Chest CT May 19, 2023. Chest radiograph July 09, 2023 and July 22, 2023. TECHNIQUE: Following IV administration of 118 mL of Optiray, helical axial images of the chest were obtained utilizing the pulmonary embolus protocol. Maximal intensity projections and sagittal and coronal reformats were viewed on an independent 3D workstation. IV contrast was administered without complication. Automated exposure control was utilized for the study. A dose lo wering technique was utilized adhering to the principles of ALARA. CT DOSE: 1064.73 mGy.cm FINDINGS: No pulmonary emboli are identified although the segmental and subsegmental pulmonary arteries are suboptimally assessed. There is mild dilatation of the central pulmonary arteries. There is no thoracic aortic dissection. A dual-lead left subclavian pacer is in place. There is no pericardial effusion. Mildly enlarged mediastinal and bilateral hilar lymph nodes are similar to CT of May 19, 2023. Index prevascular node on image 120 at 199 measures 1 cm short axis diameter. Index left hilar node on image 108 measures 1.4 cm. Cardiomegaly is unchanged. Small right and trace left pleural effusions have developed. There is no pneumothorax. Extensive multifocal consolidation and groundglass opacities within the lungs have progressed since CT of May 19, 2023. The central airways are patent. There is no cavitation. Old mild T5 compression deformity is unchanged. Splenomegaly is unchanged. The liver is cirrhotic. IMPRESSION: 1. No pulmonary emboli identified although segmental and subsegmental pulmonary arteries suboptimally assessed. 2. Progression of extensive multifocal consolidation and groundglass opacities within the lungs since CT of May 19, 2023. These are nonspecific. Primary considerations include multifocal pneumonia, pulmonary edema and ARDS. 3. Interval development of small right and trace left pleural effusions. 4. Moderate cardiomegaly and coronary artery calcification. Mild dilatation of the central pulmonary arteries which raises the possibility of pulmonary arterial hypertension. 5. No change in mild mediastinal and bilateral hilar lymphadenopathy. This is nonspecific and may be reactive. ACT 112: Negative or not required by law. Electronically signed by: Pro Joya M.D. 07/22/2023 3:46 PM Chest X-Ray 07/27/23 07:00 SINGLE VIEW CHEST CLINICAL HISTORY: Dyspnea FINDINGS: An AP, portable, upright chest radiograph is compared to chest x-ray and chest CT dated 07/22/2018. A 2-lead cardiac pacemaker is unchanged in position. The heart is enlarged noting atherosclerotic calcification of the thoracic aorta. Extensive/diffuse airspace opacities have modestly cleared as compared to 07/22/2023. Small pleural effusions are noted. No pneumothorax is seen. The skeletal structures are osteopenic. The bony thorax is grossly intact. IMPRESSION: 1. Cardiomegaly and cardiac pacemaker. 2. Extensive/diffuse multifocal airspace opacities have modestly cleared as compared to 07/22/2023. Correlate clinically. 3. Small pleural effusions. ACT 112: Negative or not required by law. Electronically signed by: Freddie Mae M.D. 07/27/2023 7:33 AM (10) GERD (gastroesophageal reflux disease) Esophagitis presence: without esophagitis Qualified Code(s): K21.9 - Gastro- esophageal reflux disease without esophagitis (11) HTN (hypertension) Hypertension type: unspecified Qualified Code(s): I10 - Essential (primary) hypertension
[2023-07-28] MEDS: NYSTATIN SUSP 500,000 U/5 ML UDC PO SCH ×3 (12:22→20:55)
[2023-07-28] MEDS: SULFAMETHOXAZOLE/TRIMETHOPRIM DS 800/160MG TAB PO SCH ×2 (12:22→20:54)
[2023-07-28] MEDS ORDERED: NYSTATIN 500,000 UNIT TAB PO SCH (13:00)
[2023-07-28] MEDS: methylPREDNISolone 60 MG in SYRINGE 0 ML IV SCH ×2 (16:31→21:00)
[2023-07-28] MEDS: MONTELUKAST SODIUM 10 MG TABLET PO SCH (20:55)
[2023-07-29] MEDS: LORazepam 0.5 MG TAB PO PRN ×3 (01:56→23:24)
[2023-07-29] MEDS: ALBUT/IPRATROP 3MG/0.5MG NEB 3 ML VIAL NEB SCH ×6 (02:09→22:25)
[2023-07-29] MEDS: HEPARIN SOD 5,000 UNIT/0.5 ML VIAL SQ SCH ×3 (06:07→20:52)
[2023-07-29] MEDS: SULFAMETHOXAZOLE/TRIMETHOPRIM DS 800/160MG TAB PO SCH ×3 (06:07→21:03)
[2023-07-29] MEDS: FUROSEMIDE 40 MG/4 ML VIAL IV SCH ×2 (06:08→14:54)
[2023-07-29] MEDS: methylPREDNISolone 60 MG in SYRINGE 0 ML IV SCH (06:08)
[2023-07-29 07:06] LABS: Hematocrit (blood only) 32.8 % (37.0-47.0); Hemoglobin 9.8 g/dl (12.0-16.0); Mean Corpuscular Hemoglobin 26.2 pg (25.0-34.0); Mean Corpuscular Hgb Conc 29.9 g/dL (32.0-36.0); Mean Corpuscular Volume 87.7 fL (80.0-100.0); Mean Platelet Volume 11.2 fL (9.4-12.4); Nucleated RBC # (auto) 0.13 K/uL (0.00-0.12); Platelet Count 162 K/uL (130-400); RDW Coefficient of Variation 19.5 % (11.5-14.5); RDW Standard Deviation 62.4 fL (36.4-46.3); Red Blood Count 3.74 M/uL (4.20-5.40); White Blood Count 13.18 K/ul (4.8-10.8)
[2023-07-29] MEDS: SODIUM CHLOR 7% 4 ML NEB NEB SCH ×2 (07:16→19:32)
[2023-07-29 07:31] LABS: BUN Creatinine Ratio 33.7 (10-20); Calcium 9.5 mg/dl (8.6-10.3); Creatinine Clr Calc Pharmacy 67.8 ml/min; Est GFR (African American) 70.8 ml/min; Est GFR (Non-African American) 61.1 ml/min; Potassium 4.6 mmol/L (3.5-5.1)
[2023-07-29] MEDS: SOTALOL HCL 80 MG TAB PO SCH ×2 (07:34→20:58)
[2023-07-29] MEDS: MAGNESIUM CHLORIDE W/CALCIUM 64MG DELAYED REL TAB PO SCH ×2 (07:34→20:59)
[2023-07-29] MEDS: SERTRALINE HCL 100 MG TABLET PO SCH (07:34)
[2023-07-29] MEDS: LORATADINE 10 MG TAB PO SCH ×2 (07:34→20:54)
[2023-07-29] MEDS: MONTELUKAST SODIUM 10 MG TABLET PO SCH (07:34)
[2023-07-29] MEDS: DOCUSATE SODIUM 100 MG CAP PO SCH ×2 (07:34→20:55)
[2023-07-29] MEDS: FOLIC ACID 1 MG TAB PO SCH (07:34)
[2023-07-29] MEDS: amLODIPine BESYLATE 5 MG TAB PO SCH (07:35)
[2023-07-29] MEDS: CHOLECALCIFEROL 1,000 UNITS 25 MCG TAB PO SCH (07:35)
[2023-07-29] MEDS: PANTOprazole 40 MG TAB PO SCH ×2 (07:35→21:00)
[2023-07-29] MEDS: NYSTATIN SUSP 500,000 U/5 ML UDC PO SCH ×4 (07:35→20:59)
[2023-07-29] MEDS: guaiFENesin 600 MG TABCR PO SCH ×2 (07:36→21:01)
[2023-07-29] MEDS: GABAPENTIN 300 MG CAP PO SCH ×3 (07:36→20:56)
--- NOTE | 2023-07-29 07:43 | Pulmonology Progress Note ---
Date of Service July 29, 2023 Assessment & Plan (1) Acute respiratory failure with hypoxia and hypercapnia: (2) Hypersensitivity pneumonitis: (3) Steroid dependent: (4) BERRY (obstructive sleep apnea): Plan Impression: 67-year-old female with history of hypersensitivity pneumonitis. Unclear how the diagnosis was made or what the offending agent is but she has had recurrent hospitalizations with progressive infiltrates. She is been treated aggressively with antibiotics with no significant improvement and is now both hypoxemic and hypercarbic. Her current oxygen requirement and respiratory status would preclude bronchoscopy at this point time. She is currently being treated for potentially reversible etiologies with high-dose steroids. CT chest 07/22/2023 personally reviewed: Bilateral patchy opacities appreciated especially in the upper lobes Small right-sided pleural effusion Minimal minimal mediastinal lymphadenopathy Bilateral opacities have worsened compared to CT chest 05/2023 2D echo 06/18/2023: EF 60-65%, grade 1 diastolic dysfunction, PASP 40 mmHg Recommendations: -- Acute on chronic hypoxic hypercapnic respiratory failure Likely secondary to exacerbation of underlying hypersensitive pneumonitis HFpEF also playing a sport On Solu-Medrol 125 mg Q8, continue with pantoprazole 40 mg twice daily while on high-dose steroids Consideration for mycophenolate or azathioprine based on patient's response PJP prophylaxis to be considered if patient needs to this admission. Too unstable for bronchoscopy Respiratory bio fire negative for everything on 07/22/2023 BNP 325 Treatment with Bactrim for PJP empirically started 07/28/2023 --BERRY Patient was intolerant to CPAP in the past --Obesity Advised to lose with diet and exercise --Chronic prednisone dependence 10 mg on a daily basis Used to be on 80 mg back in March 2023. The reason for prednisone is autoimmune/hemolytic anemia Plan: In/out: - 4.8 L since coming to the hospital Follow-up PJP PCR from sputum. I will decrease the Solu-Medrol to 40 mg Q8. Continue empiric treatment for for PJP pneumonia with Bactrim. Keep an eye on potassium as well as sodium while patient is on Bactrim Continue with diuretics to keep the patient negative balance O2 supplementation to keep oxygen saturation between 88-92%. BiPAP/CPAP nightly and as needed shortness of breath will also be beneficial Case was discussed with Dr. Dixon as well as RN at bedside Please note the above document was generated using voice recognition software. It may contain grammatical, syntax or spelling errors.Any formal questions or concerns about the content, text or information contained within the body of this dictation should be directly addressed to the provider for clarification. Admission and Anticipated Discharge Date Admission Date: July 22, 2023 Subjective Patient seen and examined at bedside. No acute distress, no adverse events overnight. She was saturating 88-89% on 30 L, 75% high flow Overall she says she is feeling the same. She has not been bringing up any phlegm Denies any chest pain. No headache, no nausea, no vomiting She did try to use the BiPAP overnight and use it for only 2 hours. Encouraged her to use it more. Review of Systems Review of Systems: All systems reviewed & are unremarkable except as noted in Subjective Physical Exam Physical Exam: Constitutional: No acute distress HEENT: EOMI, PERRLA Respiratory system: Decreased air entry bilaterally, no wheeze, no rhonchi, positive crackles appreciated bilaterally posteriorly and anteriorly CVS: S1-S2 positive, no murmurs or gallops Abdomen: Soft, nontender, nondistended, positive bowel sounds x4 Extremities: +2 pulses bilaterally radialis/ dorsalis pedis, no cyanosis, +1 pitting edema bilateral lower extremity Neuro: Awake alert oriented x3 Psych: Normal mood and affect G/U: Positive [place] Skin: no rashes, warm and dry Lymphatic: no cervical or axillary lymphadenopathy Results & Data Results & Data Vital Signs (Past 12 Hours) Vital Signs Temp Pulse Pulse Resp BP BP Pulse Ox 07/29/23 07:26 36.6 C 60 18 127/71 97 07/29/23 04:04 20 92 07/29/23 03:37 36.4 C L 63 17 150/71 H 95 07/29/23 00:00 65 07/29/23 02:09 67 22 96 07/29/23 01:53 64 22 92 07/29/23 00:00 07/29/23 00:38 63 93 07/28/23 23:51 07/28/23 20:00 07/28/23 23:12 36.9 C 69 19 133/50 L 90 07/28/23 22:20 67 22 89 L 07/28/23 20:09 27 H 89 L Pulse Ox O2 Del Method O2 Del Method O2 Flow Rate O2 Flow Rate FiO2 07/29/23 07:26 Nasal Cannula, High Flow Nasal Cannula 07/29/23 04:04 High Flow Nasal Cannula 30 70 07/29/23 03:37 BiPAP 07/29/23 00:00 07/29/23 02:09 BiPAP 70 07/29/23 01:53 60 07/29/23 00:00 93 High Flow Nasal Cannula 30 07/29/23 00:38 High Flow Nasal Cannula 30 70 07/28/23 23:51 91 High Flow Nasal Cannula 30 07/28/23 20:00 High Flow Nasal Cannula 30 75 07/28/23 23:12 High Flow Nasal Cannula 30 75 07/28/23 22:20 High Flow Nasal Cannula 30 75 07/28/23 20:09 High Flow Nasal Cannula 30 80 Laboratory Results 07/29/23 06:53 07/29/23 06:53 PG Care Time/CCT Total # of Minutes Spent Total Time Spent with Patient: Total time spent is greater than 50% in coordination of care (as documented) at patient's floor/unit and/or counseling patient: Coding Level of Care Code 92450 SUB INP/OBS CARE 3/50MIN Diagnoses Acute respiratory failure with hypoxia and hypercapnia J96.01; J96.02 Hypersensitivity pneumonitis J67.9 Steroid dependent F19.20 BERRY (obstructive sleep apnea) G47.33
[2023-07-29 08:01] LABS: Basophilic Stippling 1+; Basophils # (auto) 0.01 K/uL (0.00-0.20); Basophils % (auto) 0.1 %; Eosinophils # (auto) 0.01 K/uL (0.00-0.50); Eosinophils % (auto) 0.1 %; Immature Granulocytes # (auto) 0.26 K/uL (0.01-0.20); Lymphocytes # (auto) 0.94 K/uL (1.20-3.40); Lymphocytes % (auto) 7.1 %; Monocytes # (auto) 0.83 K/uL (0.11-0.59); Monocytes % (auto) 6.3 %; Neutrophils # (auto) 11.13 K/uL (1.40-6.50); Neutrophils % (auto) 84.4 %; Polychromasia 1+; Stomatocytes 1+; Tear Drop Cells 1+
--- NOTE | 2023-07-29 13:51 | Hospitalist Progress Note ---
Date of Service July 29, 2023 Assessment & Plan (1) Acute respiratory failure with hypoxia and hypercapnia: (2) Acute dyspnea: (3) BERRY (obstructive sleep apnea): (4) Acute exacerbation of CHF (congestive heart failure): (5) Paroxysmal atrial fibrillation: (6) Pacemaker: (7) CKD (chronic kidney disease), stage III: (8) Obesity, morbid, BMI 40.0-49.9: (9) Chronic anemia: (10) GERD (gastroesophageal reflux disease): (11) HTN (hypertension): Plan: Patient is a 67 yr female with history of chronic hypersensitive pneumonitis with multiple hospitalization presented with increasing shortness of breath. At baseline she uses 5 L of oxygen at rest. As per her outpatient pulmonology; HP panel was checked which showed sensitivity to several molds. Autoimmune panel are negative. Acute on chronic respiratory failure with hypoxia and hypercarbia Chronic hypersensitivity pneumonitis Exacerbation Pulmonary hypertension BERRY Chronic oxygen dependency--on 5 L of oxygen at baseline - CT chest reviewed personally: Progression of extensive multifocal consolidation and groundglass opacities within the lungs since CT of May 19, 2023. These are nonspecific. Primary considerations include multifocal pneumonia, pulmonary edema and ARDS. Interval development of small right and trace left pleural effusions. Moderate cardiomegaly and coronary artery calcification. Mild dilatation of the central pulmonary arteries which raises the possibility of pulmonary arterial hypertension. -Repeat chest x-ray done on July 27 personally reviewed; slight improvement in the groundglass opacities. --Blood Cx:Negative to date --Biofire:Negative -- Other serological test pending -- Sputum for PJP pending --Urine for Legionella pending --ECHO: July 01: Mild concentric LVH. EF 60 to 65%. Mild mitral, tricuspid regurgitation, grade 1 diastolic dysfunction. Mild pulmonary hypertension. Patient currently unstable for bronchoscopy Continue BiPAP as tolerated Continue high flow oxygen for now Appreciate pulmonology input Continue IV Solu-Medrol continue Bactrim Continue IV diuresis Monitor I's and O's, daily weight, renal function Leukocytosis secondary to steroids Oral thrush Developed on high-dose steroid. Continue Nystatin p.o. 4 times daily. H/O Tachy-lakeisha syndrome: S/P Pacemaker Paroxysmal atrial fibrillation Rhythm controlled on sotalo Not anticoagulated due to history of chronic anemia and bleeding issues Hemolytic anemia: Follows with heme-onc, currently on prednisone 10 mg daily. Prednisone currently on hold as patient is on high-dose steroids. Given 1 unit of packed RBC on July 24, 2023. Hemoglobin around 8-9 Monitor CKD stage III Stable Mood disorder Continue home medications GERD Continue Protonix DVT Px: Heparin SQ Code Status DNI/DNR Disposition: PT/OT prior to discharge Admission and Anticipated Discharge Date Admission Date: July 22, 2023 Subjective Patient is seen and examined at bedside States feeling better today Currently on high flow oxygen Denies any significant cough Reports dyspnea on exertion Was able to tolerate BiPAP for 2hrs overnight Review of Systems Review of Systems: All systems reviewed & are unremarkable except as noted in Subjective Physical Exam Physical Exam: Physical Exam: Vitals signs as noted above General Appearance:Moderately built and nourished, no apparent distress Head: normocephalic, Atraumatic Eyes: normal inspection, EOMI Neck: supple, Trachea midline Respiratory/Chest: Decreased breath sounds, CTA, No accessory muscle use Cardiovascular: S1, S2, No murmur Abdomen/GI:Soft, Non tender, Bowel sounds present Extremities/Musculoskeletal:normal inspection, +1 LE edema Neurologic/Psych:AAOX3, grossly no focal neurological deficits Skin: normal color, warm,+Ecchymosis on UE Results & Data Results & Data Vital Signs (Past 12 Hours) Vital Signs Temp Pulse Pulse Resp BP BP Pulse Ox 07/29/23 11:20 64 20 90 07/29/23 11:00 36.6 C 66 18 129/96 90 07/29/23 10:01 07/29/23 09:58 67 07/29/23 07:18 60 20 90 07/29/23 07:26 36.6 C 60 18 127/71 97 07/29/23 04:04 20 92 07/29/23 03:37 36.4 C L 63 17 150/71 H 95 07/29/23 02:09 67 22 96 07/29/23 01:53 64 22 92 O2 Del Method O2 Flow Rate FiO2 07/29/23 11:20 High Flow Nasal Cannula 30 75 07/29/23 11:00 Nasal Cannula 07/29/23 10:01 High Flow Nasal Cannula 30 07/29/23 09:58 07/29/23 07:18 High Flow Nasal Cannula 30 70 07/29/23 07:26 Nasal Cannula, High Flow Nasal Cannula 07/29/23 04:04 High Flow Nasal Cannula 30 70 07/29/23 03:37 BiPAP 07/29/23 02:09 BiPAP 70 07/29/23 01:53 60 Laboratory Results Short CBC 07/29/23 Range/Units 06:53 WBC 13.18 H (4.8-10.8) K/ul Hgb 9.8 L (12.0-16.0) g/dl Hct 32.8 L (37.0-47.0) % Plt Count 162 (130-400) K/uL BMP 07/29/23 06:53 Sodium 136 Potassium 4.6 Chloride 92 L Carbon Dioxide 40 H BUN 32 H Creatinine 0.95 Glucose 136 H Calcium 9.5 (10) GERD (gastroesophageal reflux disease) Esophagitis presence: without esophagitis Qualified Code(s): K21.9 - Gastro- esophageal reflux disease without esophagitis (11) HTN (hypertension) Hypertension type: unspecified Qualified Code(s): I10 - Essential (primary) hypertension
[2023-07-29] MEDS: methylPREDNISolone 40 MG in SYRINGE 0 ML IV SCH ×2 (15:02→20:51)
[2023-07-30] MEDS: ALBUT/IPRATROP 3MG/0.5MG NEB 3 ML VIAL NEB SCH ×6 (03:07→23:43)
[2023-07-30] MEDS: FUROSEMIDE 40 MG/4 ML VIAL IV SCH (06:07)
[2023-07-30] MEDS: HEPARIN SOD 5,000 UNIT/0.5 ML VIAL SQ SCH ×3 (06:07→21:25)
[2023-07-30] MEDS: methylPREDNISolone 40 MG in SYRINGE 0 ML IV SCH ×3 (06:08→21:18)
[2023-07-30] MEDS: SULFAMETHOXAZOLE/TRIMETHOPRIM DS 800/160MG TAB PO SCH ×3 (06:09→21:21)
[2023-07-30 06:40] LABS: Hematocrit (blood only) 29.9 % (37.0-47.0); Hemoglobin 9.2 g/dl (12.0-16.0); Mean Corpuscular Hemoglobin 26.7 pg (25.0-34.0); Mean Corpuscular Hgb Conc 30.8 g/dL (32.0-36.0); Mean Corpuscular Volume 86.7 fL (80.0-100.0); Mean Platelet Volume 11.5 fL (9.4-12.4); Nucleated RBC # (auto) 0.08 K/uL (0.00-0.12); Nucleated RBC % (auto) 0.7 %; Platelet Count 156 K/uL (130-400); RDW Coefficient of Variation 19.9 % (11.5-14.5); RDW Standard Deviation 62.4 fL (36.4-46.3); Red Blood Count 3.45 M/uL (4.20-5.40); White Blood Count 11.46 K/ul (4.8-10.8)
[2023-07-30] MEDS: SODIUM CHLOR 7% 4 ML NEB NEB SCH ×2 (07:11→19:19)
[2023-07-30 07:22] LABS: Calcium 9.3 mg/dl (8.6-10.3); Est GFR (Non-African American) 53.5 ml/min; Potassium 4.7 mmol/L (3.5-5.1)
[2023-07-30] MEDS: amLODIPine BESYLATE 5 MG TAB PO SCH (08:13)
[2023-07-30] MEDS: guaiFENesin 600 MG TABCR PO SCH ×2 (08:14→21:22)
[2023-07-30] MEDS: FOLIC ACID 1 MG TAB PO SCH (08:14)
[2023-07-30] MEDS: DOCUSATE SODIUM 100 MG CAP PO SCH ×2 (08:14→21:26)
[2023-07-30] MEDS: GABAPENTIN 300 MG CAP PO SCH ×3 (08:14→21:20)
[2023-07-30] MEDS: CHOLECALCIFEROL 1,000 UNITS 25 MCG TAB PO SCH (08:14)
[2023-07-30] MEDS: MAGNESIUM CHLORIDE W/CALCIUM 64MG DELAYED REL TAB PO SCH ×2 (08:15→21:24)
[2023-07-30] MEDS: LORATADINE 10 MG TAB PO SCH (08:15)
[2023-07-30] MEDS: NYSTATIN SUSP 500,000 U/5 ML UDC PO SCH ×4 (08:15→21:19)
[2023-07-30] MEDS: PANTOprazole 40 MG TAB PO SCH ×2 (08:15→21:23)
[2023-07-30] MEDS: SERTRALINE HCL 100 MG TABLET PO SCH (08:15)
[2023-07-30] MEDS: SOTALOL HCL 80 MG TAB PO SCH ×2 (08:15→21:19)
--- NOTE | 2023-07-30 12:47 | Pulmonology Progress Note ---
Date of Service July 30, 2023 Assessment & Plan (1) Acute respiratory failure with hypoxia and hypercapnia: (2) Hypersensitivity pneumonitis: (3) Steroid dependent: (4) BERRY (obstructive sleep apnea): Plan Impression: 67-year-old female with history of hypersensitivity pneumonitis. Unclear how the diagnosis was made or what the offending agent is but she has had recurrent hospitalizations with progressive infiltrates. She is been treated aggressively with antibiotics with no significant improvement and is now both hypoxemic and hypercarbic. Her current oxygen requirement and respiratory status would preclude bronchoscopy at this point time. She is currently being treated for potentially reversible etiologies with high-dose steroids. CT chest 07/22/2023 personally reviewed: Bilateral patchy opacities appreciated especially in the upper lobes Small right-sided pleural effusion Minimal minimal mediastinal lymphadenopathy Bilateral opacities have worsened compared to CT chest 05/2023 2D echo 06/18/2023: EF 60-65%, grade 1 diastolic dysfunction, PASP 40 mmHg Recommendations: -- Acute on chronic hypoxic hypercapnic respiratory failure Likely secondary to exacerbation of underlying hypersensitive pneumonitis HFpEF also playing a sport On Solu-Medrol 125 mg Q8, continue with pantoprazole 40 mg twice daily while on high-dose steroids Consideration for mycophenolate or azathioprine based on patient's response PJP prophylaxis to be considered if patient needs to this admission. Too unstable for bronchoscopy Respiratory bio fire negative for everything on 07/22/2023 BNP 325 Treatment with Bactrim for PJP empirically started 07/28/2023 --BERRY Patient was intolerant to CPAP in the past --Obesity Advised to lose with diet and exercise --Chronic prednisone dependence 10 mg on a daily basis Used to be on 80 mg back in March 2023. The reason for prednisone is autoimmune/hemolytic anemia Plan: In/out: - 8.4 L since coming to the hospital Follow-up PJP PCR from sputum. I spoke with RT to get into sputum as patient is not able to bring anything up. I will decrease the Solu-Medrol to 40 mg every 12 Continue empiric treatment for for PJP pneumonia with Bactrim. Keep an eye on potassium as well as sodium while patient is on Bactrim Continue with gentle diuresis O2 supplementation to keep oxygen saturation between 88-92%. BiPAP/CPAP nightly and as needed shortness of breath will also be beneficial Case was discussed with Dr. Dixon as well as RN/RT at bedside Please note the above document was generated using voice recognition software. It may contain grammatical, syntax or spelling errors.Any formal questions or concerns about the content, text or information contained within the body of this dictation should be directly addressed to the provider for clarification. Admission and Anticipated Discharge Date Admission Date: July 22, 2023 Subjective Patient seen and examined at bedside. No acute distress, no adverse events o vernight. Patient was saturating 91-92% on 75% FiO2, 30 L high flow She said she is feeling a little bit better compared to yesterday Has been using incentive spirometry. -Using flutter valve but not bringing up any phlegm No chest pain Urinating well Has been afebrile Fair appetite Review of Systems Review of Systems: All systems reviewed & are unremarkable except as noted in Subjective Physical Exam Physical Exam: Constitutional: No acute distress HEENT: EOMI, PERRLA Respiratory system: Decreased air entry bilaterally, no wheeze, no rhonchi, positive crackles appreciated bilaterally posteriorly and anteriorly CVS: S1-S2 positive, no murmurs or gallops Abdomen: Soft, nontender, nondistended, positive bowel sounds x4 Extremities: +2 pulses bilaterally radialis/ dorsalis pedis, no cyanosis, +1 pitting edema bilateral lower extremity Neuro: Awake alert oriented x3 Psych: Normal mood and affect G/U: Positive Yuen Skin: no rashes, warm and dry Lymphatic: no cervical or axillary lymphadenopathy Results & Data Results & Data Vital Signs (Past 12 Hours) Vital Signs Temp Pulse Pulse Resp BP BP Pulse Ox 07/30/23 11:10 64 22 90 07/30/23 10:09 61 07/30/23 08:27 07/30/23 08:16 66 23 146/67 H 93 07/30/23 07:00 36.8 C 66 20 135/67 97 07/30/23 07:11 60 20 92 07/30/23 03:54 64 22 90 07/30/23 03:10 36.6 C 61 19 142/71 H 95 07/30/23 03:08 62 21 95 07/30/23 03:07 62 21 95 O2 Del Method O2 Flow Rate FiO2 07/30/23 11:10 High Flow Nasal Cannula 30 70 07/30/23 10:09 07/30/23 08:27 High Flow Nasal Cannula 30 75 07/30/23 08:16 High Flow Nasal Cannula 30 75 07/30/23 07:00 Room Air 07/30/23 07:11 High Flow Nasal Cannula 30 75 07/30/23 03:54 High Flow Nasal Cannula 30 75 07/30/23 03:10 BiPAP 07/30/23 03:08 60 07/30/23 03:07 BiPAP 60 Laboratory Results 07/30/23 05:55 07/30/23 05:55 PG Care Time/CCT Total # of Minutes Spent Total Time Spent with Patient: Total time spent is greater than 50% in coordination of care (as documented) at patient's floor/unit and/or counseling patient: Coding Level of Care Code 03766 SUB INP/OBS CARE 3/50MIN Diagnoses Acute respiratory failure with hypoxia and hypercapnia J96.01; J96.02 Hypersensitivity pneumonitis J67.9 Steroid dependent F19.20 BERRY (obstructive sleep apnea) G47.33
--- NOTE | 2023-07-30 15:12 | Hospitalist Progress Note ---
Date of Service July 30, 2023 Assessment & Plan (1) Acute respiratory failure with hypoxia and hypercapnia: (2) Acute dyspnea: (3) BERRY (obstructive sleep apnea): (4) Acute exacerbation of CHF (congestive heart failure): (5) Paroxysmal atrial fibrillation: (6) Pacemaker: (7) CKD (chronic kidney disease), stage III: (8) Obesity, morbid, BMI 40.0-49.9: (9) Chronic anemia: (10) GERD (gastroesophageal reflux disease): (11) HTN (hypertension): Plan: Patient is a 67 yr female with history of chronic hypersensitive pneumonitis with multiple hospitalization presented with increasing shortness of breath. At baseline she uses 5 L of oxygen at rest. As per her outpatient pulmonology; HP panel was checked which showed sensitivity to several molds. Autoimmune panel are negative. Acute on chronic respiratory failure with hypoxia and hypercarbia Chronic hypersensitivity pneumonitis Exacerbation Pulmonary hypertension BERRY Chronic oxygen dependency--on 5 L of oxygen at baseline - CT chest reviewed personally: Progression of extensive multifocal consolidation and groundglass opacities within the lungs since CT of May 19, 2023. These are nonspecific. Primary considerations include multifocal pneumonia, pulmonary edema and ARDS. Interval development of small right and trace left pleural effusions. Moderate cardiomegaly and coronary artery calcification. Mild dilatation of the central pulmonary arteries which raises the possibility of pulmonary arterial hypertension. -Repeat chest x-ray done on July 27 personally reviewed; slight improvement in the groundglass opacities. --Blood Cx:Negative to date --Biofire:Negative -- Other serological test pending -- Sputum for PJP pending --Urine for Legionella pending --ECHO: July 01: Mild concentric LVH. EF 60 to 65%. Mild mitral, tricuspid regurgitation, grade 1 diastolic dysfunction. Mild pulmonary hypertension. Patient currently unstable for bronchoscopy Continue BiPAP at bedtime Continue high flow oxygen for now Appreciate pulmonology input Continue IV Solu-Medrol--decreased to 40 mg every 12 hours Continue Bactrim--plan for 21-day course Continue IV diuresis--decrease to 40 mg daily Monitor I's and O's, daily weight, renal function Continue aggressive pulmonary hygiene Plan to transition to p.o. diuretics as able Oral thrush Developed on high-dose steroid. Continue Nystatin p.o. 4 times daily. H/O Tachy-lakeisha syndrome: S/P Pacemaker Paroxysmal atrial fibrillation Rhythm controlled on sotalo Not anticoagulated due to history of chronic anemia and bleeding issues Hemolytic anemia: Follows with heme-onc, currently on prednisone 10 mg daily. Prednisone currently on hold as patient is on high-dose steroids. Given 1 unit of packed RBC on July 24, 2023. Hemoglobin around 8-9 Monitor CKD stage III Stable Mood disorder Continue home medications GERD Continue Protonix DVT Px: Heparin SQ Code Status DNI/DNR Disposition: PT/OT prior to discharge Admission and Anticipated Discharge Date Admission Date: July 22, 2023 Subjective Patient is seen and examined at bedside Subjectively feels better No new complaints Discussed with pulmonology today Remains on high flow Denies any significant cough, chest pain, nausea, vomiting, abdominal pain Review of Systems Review of Systems: All systems reviewed & are unremarkable except as noted in Subjective Physical Exam Physical Exam: Physical Exam: Vitals signs as noted above General Appearance:Moderately built and nourished, no apparent distress Head: normocephalic, Atraumatic Eyes: normal inspection, EOMI Neck: supple, Trachea midline Respiratory/Chest: Decreased breath sounds, CTA, No accessory muscle use Cardiovascular: S1, S2, No murmur Abdomen/GI:Soft, Non tender, Bowel sounds present Extremities/Musculoskeletal:normal inspection, +1 LE edema Neurologic/Psych:AAOX3, grossly no focal neurological deficits Skin: normal color, warm,+Ecchymosis on UE Results & Data Results & Data Vital Signs (Past 12 Hours) Vital Signs Temp Pulse Pulse Resp BP BP Pulse Ox 07/30/23 11:10 64 22 90 07/30/23 10:09 61 07/30/23 08:27 07/30/23 08:16 66 23 146/67 H 93 07/30/23 07:00 36.8 C 66 20 135/67 97 07/30/23 07:11 60 20 92 07/30/23 03:54 64 22 90 07/30/23 03:10 36.6 C 61 19 142/71 H 95 07/30/23 03:08 62 21 95 O2 Del Method O2 Flow Rate FiO2 07/30/23 11:10 High Flow Nasal Cannula 30 70 07/30/23 10:09 07/30/23 08:27 High Flow Nasal Cannula 30 75 07/30/23 08:16 High Flow Nasal Cannula 30 75 07/30/23 07:00 Room Air 07/30/23 07:11 High Flow Nasal Cannula 30 75 07/30/23 03:54 High Flow Nasal Cannula 30 75 07/30/23 03:10 BiPAP 07/30/23 03:08 60 Laboratory Results Short CBC 07/30/23 Range/Units 05:55 WBC 11.46 H (4.8-10.8) K/ul Hgb 9.2 L (12.0-16.0) g/dl Hct 29.9 L (37.0-47.0) % Plt Count 156 (130-400) K/uL BMP 07/30/23 05:55 Sodium 133 L Potassium 4.7 Chloride 89 L Carbon Dioxide 43 H* BUN 35 H Creatinine 1.06 Glucose 120 H Calcium 9.3 (10) GERD (gastroesophageal reflux disease) Esophagitis presence: without esophagitis Qualified Code(s): K21.9 - Gastro- esophageal reflux disease without esophagitis (11) HTN (hypertension) Hypertension type: unspecified Qualified Code(s): I10 - Essential (primary) hypertension
[2023-07-30 16:17] LABS: ANCA Screen Negative (Negative); Anti Nuclear Antibody Screen NEGATIVE (NEGATIVE); Aspergillus fumigatus NEGATIVE (NEGATIVE); Cyclic Citrullinated Pep IgG <16 UNITS; Myeloperoxidase Ab <1.0 AI (<1.0); Proteinase-3 AB <1.0 AI (<1.0)
[2023-07-30] MEDS: MONTELUKAST SODIUM 10 MG TABLET PO SCH (21:25)
[2023-07-30] MEDS: LORazepam 0.5 MG TAB PO PRN (21:53)
[2023-07-31] MEDS: ALBUT/IPRATROP 3MG/0.5MG NEB 3 ML VIAL NEB SCH ×6 (03:15→22:55)
[2023-07-31] MEDS: HEPARIN SOD 5,000 UNIT/0.5 ML VIAL SQ SCH ×3 (06:07→21:44)
[2023-07-31 06:16] LABS: Hematocrit (blood only) 28.7 % (37.0-47.0); Hemoglobin 8.6 g/dl (12.0-16.0); Mean Corpuscular Hemoglobin 26.3 pg (25.0-34.0); Mean Corpuscular Volume 87.8 fL (80.0-100.0); Mean Platelet Volume 10.5 fL (9.4-12.4); Nucleated RBC # (auto) 0.06 K/uL (0.00-0.12); Nucleated RBC % (auto) 0.7 %; Platelet Count 114 K/uL (130-400); RDW Coefficient of Variation 20.2 % (11.5-14.5); RDW Standard Deviation 65.5 fL (36.4-46.3); Red Blood Count 3.27 M/uL (4.20-5.40); White Blood Count 8.32 K/ul (4.8-10.8)
[2023-07-31 06:33] LABS: Calcium 9.1 mg/dl (8.6-10.3); Creatinine Clr Calc Pharmacy 55.3 ml/min; Est GFR (African American) 55.6 ml/min; Potassium 5.2 mmol/L (3.5-5.1)
[2023-07-31] MEDS: SODIUM CHLOR 7% 4 ML NEB NEB SCH ×2 (07:07→19:32)
[2023-07-31] MEDS: methylPREDNISolone 40 MG in SYRINGE 0 ML IV SCH ×2 (07:51→21:41)
[2023-07-31] MEDS: SOTALOL HCL 80 MG TAB PO SCH ×2 (07:52→20:14)
[2023-07-31] MEDS: CHOLECALCIFEROL 1,000 UNITS 25 MCG TAB PO SCH (07:52)
[2023-07-31] MEDS: DOCUSATE SODIUM 100 MG CAP PO SCH ×2 (07:52→21:38)
[2023-07-31] MEDS: PANTOprazole 40 MG TAB PO SCH ×2 (07:52→21:39)
[2023-07-31] MEDS: MAGNESIUM CHLORIDE W/CALCIUM 64MG DELAYED REL TAB PO SCH ×2 (07:52→21:40)
[2023-07-31] MEDS: LORATADINE 10 MG TAB PO SCH (07:52)
[2023-07-31] MEDS: amLODIPine BESYLATE 5 MG TAB PO SCH (07:52)
[2023-07-31] MEDS: SULFAMETHOXAZOLE/TRIMETHOPRIM DS 800/160MG TAB PO SCH ×2 (07:53→21:43)
[2023-07-31] MEDS: guaiFENesin 600 MG TABCR PO SCH ×2 (07:53→21:40)
[2023-07-31] MEDS: SERTRALINE HCL 100 MG TABLET PO SCH (07:53)
[2023-07-31] MEDS: GABAPENTIN 300 MG CAP PO SCH ×3 (07:53→21:39)
[2023-07-31] MEDS: FOLIC ACID 1 MG TAB PO SCH (07:53)
[2023-07-31] MEDS: NYSTATIN SUSP 500,000 U/5 ML UDC PO SCH ×4 (07:54→21:42)
[2023-07-31] MEDS ORDERED: PATIROMER CALCIUM SORBITEX 8.4 GM PACK PO ONE (08:26)
--- NOTE | 2023-07-31 08:28 | Pulmonology Progress Note ---
Date of Service July 31, 2023 Assessment & Plan (1) Acute respiratory failure with hypoxia and hypercapnia: (2) Hypersensitivity pneumonitis: (3) Steroid dependent: (4) BERRY (obstructive sleep apnea): Plan Impression: 67-year-old female with history of hypersensitivity pneumonitis. Unclear how the diagnosis was made or what the offending agent is but she has had recurrent hospitalizations with progressive infiltrates. She is been treated aggressively with antibiotics with no significant improvement and is now both hypoxemic and hypercarbic. Her current oxygen requirement and respiratory status would preclude bronchoscopy at this point time. She is currently being treated for potentially reversible etiologies with high-dose steroids. CT chest 07/22/2023 personally reviewed: Bilateral patchy opacities appreciated especially in the upper lobes Small right-sided pleural effusion Minimal minimal mediastinal lymphadenopathy Bilateral opacities have worsened compared to CT chest 05/2023 2D echo 06/18/2023: EF 60-65%, grade 1 diastolic dysfunction, PASP 40 mmHg Recommendations: -- Acute on chronic hypoxic hypercapnic respiratory failure Likely secondary to exacerbation of underlying hypersensitive pneumonitis HFpEF also playing a sport On Solu-Medrol 125 mg Q8, continue with pantoprazole 40 mg twice daily while on high-dose steroids Consideration for mycophenolate or azathioprine based on patient's response PJP prophylaxis to be considered if patient needs to this admission. Too unstable for bronchoscopy Respiratory bio fire negative for everything on 07/22/2023 BNP 325 Treatment with Bactrim for PJP empirically started 07/28/2023 --BERRY Patient was intolerant to CPAP in the past --Obesity Advised to lose with diet and exercise --Chronic prednisone dependence 10 mg on a daily basis Used to be on 80 mg back in March 2023. The reason for prednisone is autoimmune/hemolytic anemia Plan: In/out: - 8.4 L since coming to the hospital Tomorrow we will go down to Solu-Medrol to 40 mg daily Continue empiric treatment for for PJP pneumonia with Bactrim. Keep an eye on potassium as well as sodium while patient is on Bactrim Dose of patiromer given today as potassium was 5.2 O2 supplementation to keep oxygen saturation between 88-92%. BiPAP/CPAP nightly and as needed shortness of breath will also be beneficial Follow-up PJP PCR from sputum. I spoke with RT to get into sputum as patient is not able to bring anything up. Case was discussed with Dr. Dixon as well as RN at bedside Please note the above document was generated using voice recognition software. It may contain grammatical, syntax or spelling errors.Any formal questions or concerns about the content, text or information contained within the body of this dictation should be directly addressed to the provider for clarification. Admission and Anticipated Discharge Date Admission Date: July 22, 2023 Subjective Patient seen and examined at bedside. No acute distress, no adverse events overnight She was saturating 88-89% on 30 L, 70% high flow. She did use BiPAP overnight for approximately 4 hours. Denied any chest pain. Still not bringing up any phlegm No nausea vomiting Fair appetite. No headache, no blurry vision Review of Systems Review of Systems: All systems reviewed & are unremarkable except as noted in Subjective Physical Exam Physical Exam: Constitutional: No acute distress HEENT: EOMI, PERRLA Respiratory system: Decreased air entry bilaterally, no wheeze, no rhonchi, positive crackles appreciated bilaterally posteriorly and anteriorly CVS: S1-S2 positive, no murmurs or gallops Abdomen: Soft, nontender, nondistended, positive bowel sounds x4 Extremities: +2 pulses bilaterally radialis/ dorsalis pedis, no cyanosis, +1 pitting edema bilateral lower extremity Neuro: Awake alert oriented x3 Psych: Normal mood and affect G/U: Positive Yuen Skin: no rashes, warm and dry Lymphatic: no cervical or axillary lymphadenopathy Results & Data Results & Data Vital Signs (Past 12 Hours) Vital Signs Temp Pulse Pulse Resp BP BP Pulse Ox 07/31/23 07:47 37.0 C 62 20 149/78 H 92 07/31/23 07:07 62 20 89 L 07/31/23 03:15 61 21 91 07/31/23 03:10 36.7 C 65 19 143/80 H 90 07/31/23 01:19 64 07/30/23 21:20 07/30/23 23:43 18 94 07/30/23 23:00 63 90 07/30/23 22:48 36.8 C 62 20 115/62 90 O2 Del Method O2 Flow Rate FiO2 07/31/23 07:47 High Flow Nasal Cannula 07/31/23 07:07 High Flow Nasal Cannula 30 70 07/31/23 03:15 High Flow Nasal Cannula 30 70 07/31/23 03:10 High Flow Nasal Cannula 30 70 07/31/23 01:19 07/30/23 21:20 High Flow Nasal Cannula 30 70 07/30/23 23:43 BiPAP 55 07/30/23 23:00 60 07/30/23 22:48 High Flow Nasal Cannula 30 70 Laboratory Results 07/31/23 05:30 07/31/23 05:30 PG Care Time/CCT Total # of Minutes Spent Total Time Spent with Patient: Total time spent is greater than 50% in coordination of care (as documented) at patient's floor/unit and/or counseling patient: Coding Level of Care Code 77722 SUB INP/OBS CARE 3/50MIN Diagnoses Acute respiratory failure with hypoxia and hypercapnia J96.01; J96.02 Hypersensitivity pneumonitis J67.9 Steroid dependent F19.20 BERRY (obstructive sleep apnea) G47.33
[2023-07-31] MEDS ORDERED: FUROSEMIDE 40 MG/4 ML VIAL IV SCH (09:00)
--- NOTE | 2023-07-31 14:04 | Hospitalist Progress Note ---
Date of Service July 31, 2023 Assessment & Plan (1) Acute respiratory failure with hypoxia and hypercapnia: (2) Acute dyspnea: (3) BERRY (obstructive sleep apnea): (4) Acute exacerbation of CHF (congestive heart failure): (5) Paroxysmal atrial fibrillation: (6) Pacemaker: (7) CKD (chronic kidney disease), stage III: (8) Obesity, morbid, BMI 40.0-49.9: (9) Chronic anemia: (10) GERD (gastroesophageal reflux disease): (11) HTN (hypertension): Plan: Patient is a 67 yr female with history of chronic hypersensitive pneumonitis with multiple hospitalization presented with increasing shortness of breath. At baseline she uses 5 L of oxygen at rest. As per her outpatient pulmonology; HP panel was checked which showed sensitivity to several molds. Autoimmune panel are negative. Acute on chronic respiratory failure with hypoxia and hypercarbia Chronic hypersensitivity pneumonitis Exacerbation Pulmonary hypertension BERRY Chronic oxygen dependency--on 5 L of oxygen at baseline - CT chest reviewed personally: Progression of extensive multifocal consolidation and groundglass opacities within the lungs since CT of May 19, 2023. These are nonspecific. Primary considerations include multifocal pneumonia, pulmonary edema and ARDS. Interval development of small right and trace left pleural effusions. Moderate cardiomegaly and coronary artery calcification. Mild dilatation of the central pulmonary arteries which raises the possibility of pulmonary arterial hypertension. -Repeat chest x-ray done on July 27 personally reviewed; slight improvement in the groundglass opacities. --Blood Cx:Negative to date --Biofire:Negative -- Other serological/Immunological tests reviewed -- Sputum for PJP pending --Urine for Legionella, Histoplasmosis pending --ECHO: July 01: Mild concentric LVH. EF 60 to 65%. Mild mitral, tricuspid regurgitation, grade 1 diastolic dysfunction. Mild pulmonary hypertension. Patient currently unstable for bronchoscopy Continue BiPAP at bedtime Continue high flow oxygen--Titrate as able Appreciate pulmonology input Continue IV Solu-Medrol--decreased to 40 mg every 12 hours Continue Bactrim Continue IV diuresis--decrease to PO lasix 40 mg daily Monitor I's and O's, daily weight, renal function Continue aggressive pulmonary hygiene Continue current management Hyperkalemia Received patiromer Repeat K normalized Low potassium diet Oral thrush Developed on high-dose steroid. Continue Nystatin p.o. 4 times daily. H/O Tachy-lakeisha syndrome: S/P Pacemaker Paroxysmal atrial fibrillation Rhythm controlled on sotalo Not anticoagulated due to history of chronic anemia and bleeding issues Hemolytic anemia: Follows with heme-onc, currently on prednisone 10 mg daily. Prednisone currently on hold as patient is on high-dose steroids. Given 1 unit of packed RBC on July 24, 2023. Hemoglobin around 8-9 Monitor CKD stage III Stable Monitor renal function Mood disorder Continue home medications GERD Continue Protonix DVT Px: Heparin SQ Code Status DNI/DNR Disposition: PT/OT prior to discharge Admission and Anticipated Discharge Date Admission Date: July 22, 2023 Subjective Patient is seen and examined at bedside Subjectively feels unchanged from yesterday No new complaints Admits to eating pineapple every day which she attributes to high potassium Denies any significant cough, chest pain, nausea, vomiting, abdominal pain Remains on high flow oxygen Review of Systems Review of Systems: All systems reviewed & are unremarkable except as noted in Subjective Physical Exam Physical Exam: Physical Exam: Vitals signs as noted above General Appearance:Moderately built and nourished, no apparent distress Head: normocephalic, Atraumatic Eyes: normal inspection, EOMI Neck: supple, Trachea midline Respiratory/Chest: Decreased breath sounds, CTA, No accessory muscle use Cardiovascular: S1, S2, No murmur Abdomen/GI:Soft, Non tender, Bowel sounds present Extremities/Musculoskeletal:normal inspection, +1 LE edema Neurologic/Psych:AAOX3, grossly no focal neurological deficits Skin: normal color, warm,+Ecchymosis on UE Results & Data Results & Data Vital Signs (Past 12 Hours) Vital Signs Temp Pulse Resp BP BP Pulse Ox O2 Del Method 07/31/23 11:34 66 18 89 L High Flow Nasal Cannula 07/31/23 11:33 36.9 C 61 20 121/52 L 89 L High Flow Nasal Cannula 07/31/23 08:00 High Flow Nasal Cannula 07/31/23 07:47 37.0 C 62 20 149/78 H 92 High Flow Nasal Cannula 07/31/23 07:07 62 20 89 L High Flow Nasal Cannula 07/31/23 03:15 61 21 91 High Flow Nasal Cannula 07/31/23 03:10 36.7 C 65 19 143/80 H 90 High Flow Nasal Cannula O2 Flow Rate FiO2 07/31/23 11:34 30 70 07/31/23 11:33 07/31/23 08:00 30 70 07/31/23 07:47 07/31/23 07:07 30 70 07/31/23 03:15 30 70 07/31/23 03:10 30 70 Laboratory Results Short CBC 07/31/23 Range/Units 05:30 WBC 8.32 (4.8-10.8) K/ul Hgb 8.6 L (12.0-16.0) g/dl Hct 28.7 L (37.0-47.0) % Plt Count 114 L (130-400) K/uL BMP 07/31/23 07/31/23 05:30 12:12 Sodium 132 L Potassium 5.2 H 5.0 Chloride 90 L Carbon Dioxide 37 H BUN 36 H Creatinine 1.16 Glucose 183 H Calcium 9.1 (10) GERD (gastroesophageal reflux disease) Esophagitis presence: without esophagitis Qualified Code(s): K21.9 - Gastro- esophageal reflux disease without esophagitis (11) HTN (hypertension) Hypertension type: unspecified Qualified Code(s): I10 - Essential (primary) hypertension
[2023-07-31] MEDS: LORazepam 0.5 MG TAB PO PRN ×2 (15:16→21:37)
[2023-07-31] MEDS: MONTELUKAST SODIUM 10 MG TABLET PO SCH (21:41)
[2023-08-01] MEDS: ALBUT/IPRATROP 3MG/0.5MG NEB 3 ML VIAL NEB SCH ×4 (03:25→19:53)
[2023-08-01] MEDS: HEPARIN SOD 5,000 UNIT/0.5 ML VIAL SQ SCH ×3 (05:53→21:32)
[2023-08-01 07:02] LABS: Hematocrit (blood only) 29.8 % (37.0-47.0); Hemoglobin 9.1 g/dl (12.0-16.0); Mean Corpuscular Hemoglobin 26.8 pg (25.0-34.0); Mean Corpuscular Hgb Conc 30.5 g/dL (32.0-36.0); Mean Corpuscular Volume 87.6 fL (80.0-100.0); Mean Platelet Volume 10.9 fL (9.4-12.4); Nucleated RBC # (auto) 0.04 K/uL (0.00-0.12); Nucleated RBC % (auto) 0.4 %; Platelet Count 136 K/uL (130-400); RDW Coefficient of Variation 20.3 % (11.5-14.5); RDW Standard Deviation 63.8 fL (36.4-46.3); White Blood Count 10.74 K/ul (4.8-10.8)
[2023-08-01] MEDS: SODIUM CHLOR 7% 4 ML NEB NEB SCH ×2 (07:16→19:53)
[2023-08-01 07:17] LABS: BUN Creatinine Ratio 35.9 (10-20); Calcium 9.4 mg/dl (8.6-10.3); Creatinine Clr Calc Pharmacy 62.3 ml/min; Est GFR (African American) 64.2 ml/min; Est GFR (Non-African American) 55.4 ml/min; Potassium 5.2 mmol/L (3.5-5.1)
[2023-08-01] MEDS: CHOLECALCIFEROL 1,000 UNITS 25 MCG TAB PO SCH (08:50)
[2023-08-01] MEDS: amLODIPine BESYLATE 5 MG TAB PO SCH (08:50)
[2023-08-01] MEDS: FOLIC ACID 1 MG TAB PO SCH (08:51)
[2023-08-01] MEDS: DOCUSATE SODIUM 100 MG CAP PO SCH ×2 (08:51→21:31)
[2023-08-01] MEDS: GABAPENTIN 300 MG CAP PO SCH ×3 (08:52→21:30)
[2023-08-01] MEDS: guaiFENesin 600 MG TABCR PO SCH ×2 (08:53→21:32)
[2023-08-01] MEDS: LORATADINE 10 MG TAB PO SCH (08:54)
[2023-08-01] MEDS: MAGNESIUM CHLORIDE W/CALCIUM 64MG DELAYED REL TAB PO SCH ×2 (08:54→21:34)
[2023-08-01] MEDS: methylPREDNISolone 40 MG in SYRINGE 0 ML IV SCH ×2 (08:54→21:34)
[2023-08-01] MEDS: PANTOprazole 40 MG TAB PO SCH ×2 (08:55→21:33)
[2023-08-01] MEDS: SERTRALINE HCL 100 MG TABLET PO SCH (08:55)
[2023-08-01] MEDS: SOTALOL HCL 80 MG TAB PO SCH ×2 (08:56→21:33)
[2023-08-01] MEDS: SULFAMETHOXAZOLE/TRIMETHOPRIM DS 800/160MG TAB PO SCH ×2 (08:56→21:32)
[2023-08-01] MEDS: NYSTATIN SUSP 500,000 U/5 ML UDC PO SCH ×4 (08:57→21:30)
[2023-08-01] MEDS: LORazepam 0.5 MG TAB PO PRN (09:04)
[2023-08-01] MEDS: FUROSEMIDE 40 MG TAB PO SCH (09:29)
[2023-08-01] MEDS ORDERED: PATIROMER CALCIUM SORBITEX 8.4 GM PACK PO ONE (12:00)
--- NOTE | 2023-08-01 13:50 | Pulmonology Progress Note ---
Date of Service August 01, 2023 Assessment & Plan (1) Acute respiratory failure with hypoxia and hypercapnia: (2) Hypersensitivity pneumonitis: (3) Steroid dependent: (4) BERRY (obstructive sleep apnea): Plan Impression: 67-year-old female with history of hypersensitivity pneumonitis. Unclear how the diagnosis was made or what the offending agent is but she has had recurrent hospitalizations with progressive infiltrates. She is been treated aggressively with antibiotics with no significant improvement and is now both hypoxemic and hypercarbic. Her current oxygen requirement and respiratory status would preclude bronchoscopy at this point time. She is currently being treated for potentially reversible etiologies with high-dose steroids. CT chest 07/22/2023 personally reviewed: Bilateral patchy opacities appreciated especially in the upper lobes Small right-sided pleural effusion Minimal minimal mediastinal lymphadenopathy Bilateral opacities have worsened compared to CT chest 05/2023 2D echo 06/18/2023: EF 60-65%, grade 1 diastolic dysfunction, PASP 40 mmHg Recommendations: -- Acute on chronic hypoxic hypercapnic respiratory failure Likely secondary to exacerbation of underlying hypersensitive pneumonitis HFpEF also playing a sport On Solu-Medrol 125 mg Q8, continue with pantoprazole 40 mg twice daily while on high-dose steroids Consideration for mycophenolate or azathioprine based on patient's response PJP prophylaxis to be considered if patient needs to this admission. Too unstable for bronchoscopy Respiratory bio fire negative for everything on 07/22/2023 BNP 325 Treatment with Bactrim for PJP empirically started 07/28/2023 --BERRY Patient was intolerant to CPAP in the past --Obesity Advised to lose with diet and exercise --Chronic prednisone dependence 10 mg on a daily basis Used to be on 80 mg back in March 2023. The reason for prednisone is autoimmune/hemolytic anemia Plan: In/out: - 8.4 L since coming to the hospital Tomorrow we will go down to Solu-Medrol to 40 mg daily and day after tomorrow and just give prednisone 40 mg on a daily basis Continue empiric treatment for for PJP pneumonia with Bactrim. Keep an eye on potassium as well as sodium while patient is on Bactrim Dose of patiromer given today as potassium was 5.2 O2 supplementation to keep oxygen saturation between 88-92%. BiPAP/CPAP nightly and as needed shortness of breath will also be beneficial Follow-up PJP PCR from sputum. I spoke with RT to get into sputum as patient is not able to bring anything up. Case was discussed with Dr. Dixon as well as RN at bedside Please note the above document was generated using voice recognition software. It may contain grammatical, syntax or spelling errors.Any formal questions or concerns about the content, text or information contained within the body of this dictation should be directly addressed to the provider for clarification. Admission and Anticipated Discharge Date Admission Date: July 22, 2023 Subjective Patient seen and examined at bedside. No acute distress, no adverse events overnight. She was saturating 88-99% on 30 L, 70% FiO2 Not in any respiratory distress Overall she is feeling the same She did use the BiPAP for 6 hours overnight. Fair appetite No nausea vomiting No headache, no blurry vision Review of Systems Review of Systems: All systems reviewed & are unremarkable except as noted in Subjective Physical Exam Physical Exam: Constitutional: No acute distress HEENT: EOMI, PERRLA Respiratory system: Decreased air entry bilaterally, no wheeze, no rhonchi, positive crackles appreciated bilaterally posteriorly and anteriorly CVS: S1-S2 positive, no murmurs or gallops Abdomen: Soft, nontender, nondistended, positive bowel sounds x4 Extremities: +2 pulses bilaterally radialis/ dorsalis pedis, no cyanosis, +1 pitting edema bilateral lower extremity Neuro: Awake alert oriented x3 Psych: Normal mood and affect G/U: Positive Yuen Skin: no rashes, warm and dry Lymphatic: no cervical or axillary lymphadenopathy Results & Data Results & Data Vital Signs (Past 12 Hours) Vital Signs Temp Pulse Pulse Resp BP BP Pulse Ox 08/01/23 11:50 36.6 C 67 21 133/63 89 L 08/01/23 11:00 66 20 90 08/01/23 10:58 66 20 90 08/01/23 08:00 08/01/23 07:19 70 16 93 08/01/23 07:18 70 19 93 08/01/23 06:42 36.4 C L 61 18 115/63 89 L 08/01/23 04:17 36.5 C 63 15 144/71 H 96 08/01/23 03:30 64 20 94 08/01/23 03:26 61 19 94 O2 Del Method O2 Flow Rate FiO2 08/01/23 11:50 High Flow Nasal Cannula 08/01/23 11:00 High Flow Nasal Cannula 35 70 08/01/23 10:58 High Flow Nasal Cannula 35 70 08/01/23 08:00 High Flow Nasal Cannula 35 70 08/01/23 07:19 High Flow Nasal Cannula 35 70 08/01/23 07:18 High Flow Nasal Cannula 35 70 08/01/23 06:42 High Flow Nasal Cannula 08/01/23 04:17 BiPAP 08/01/23 03:30 BiPAP 60 08/01/23 03:26 60 PG Care Time/CCT Total # of Minutes Spent Total Time Spent with Patient: Total time spent is greater than 50% in coordination of care (as documented) at patient's floor/unit and/or counseling patient: Coding Level of Care Code 25354 SUB INP/OBS CARE 235MIN Diagnoses Acute respiratory failure with hypoxia and hypercapnia J96.01; J96.02 Hypersensitivity pneumonitis J67.9 Steroid dependent F19.20 BERRY (obstructive sleep apnea) G47.33
--- NOTE | 2023-08-01 15:38 | Hospitalist Progress Note ---
Date of Service August 01, 2023 Assessment & Plan (1) Acute respiratory failure with hypoxia and hypercapnia: (2) Acute dyspnea: (3) BERRY (obstructive sleep apnea): (4) Acute exacerbation of CHF (congestive heart failure): (5) Paroxysmal atrial fibrillation: (6) Pacemaker: (7) CKD (chronic kidney disease), stage III: (8) Obesity, morbid, BMI 40.0-49.9: (9) Chronic anemia: (10) GERD (gastroesophageal reflux disease): (11) HTN (hypertension): Plan: Patient is a 67 yr female with history of chronic hypersensitive pneumonitis with multiple hospitalization presented with increasing shortness of breath. At baseline she uses 5 L of oxygen at rest. As per her outpatient pulmonology; HP panel was checked which showed sensitivity to several molds. Autoimmune panel are negative. Acute on chronic respiratory failure with hypoxia and hypercarbia Chronic hypersensitivity pneumonitis Exacerbation Pulmonary hypertension BERRY Chronic oxygen dependency--on 5 L of oxygen at baseline - CT chest reviewed personally: Progression of extensive multifocal consolidation and groundglass opacities within the lungs since CT of May 19, 2023. These are nonspecific. Primary considerations include multifocal pneumonia, pulmonary edema and ARDS. Interval development of small right and trace left pleural effusions. Moderate cardiomegaly and coronary artery calcification. Mild dilatation of the central pulmonary arteries which raises the possibility of pulmonary arterial hypertension. -Repeat chest x-ray done on July 27 personally reviewed; slight improvement in the groundglass opacities. --Blood Cx:Negative to date --Biofire:Negative -- Other serological/Immunological tests reviewed -- Sputum for PJP pending (unable to produce sputum) --Urine for Legionella, Histoplasmosis pending --ECHO: July 01: Mild concentric LVH. EF 60 to 65%. Mild mitral, tricuspid regurgitation, grade 1 diastolic dysfunction. Mild pulmonary hypertension. Patient currently unstable for bronchoscopy Continue BiPAP at bedtime Continue high flow oxygen--Titrate as able Appreciate pulmonology input Continue IV Solu-Medrol--decreased to 40 mg every 12 hours Continue Bactrim Continue IV diuresis--decrease to PO lasix 40 mg daily Monitor I's and O's, daily weight, renal function Continue aggressive pulmonary hygiene Titrate down steroids, supplemental oxygen as able Hyperkalemia Received patiromer Repeat K normalized Low potassium diet Continue to monitor Oral thrush Developed on high-dose steroid. Continue Nystatin p.o. 4 times daily. H/O Tachy-lakeisha syndrome: S/P Pacemaker Paroxysmal atrial fibrillation Rhythm controlled on sotalo Not anticoagulated due to history of chronic anemia and bleeding issues Hemolytic anemia: Follows with heme-onc, currently on prednisone 10 mg daily. Prednisone currently on hold as patient is on high-dose steroids. Given 1 unit of packed RBC on July 24, 2023. Hemoglobin around 8-9 Monitor CKD stage III Stable Monitor renal function Mood disorder Continue home medications GERD Continue Protonix DVT Px: Heparin SQ Code Status DNI/DNR Disposition: PT/OT prior to discharge Admission and Anticipated Discharge Date Admission Date: July 22, 2023 Subjective Patient is seen and examined at bedside Patient states that she was able to use BiPAP overnight for about 6 hours No significant cough or expectoration Subjectively feels well Remains on high flow oxygen Denies any significant cough, chest pain, nausea, vomiting, abdominal pain Review of Systems Review of Systems: All systems reviewed & are unremarkable except as noted in Subjective Physical Exam Physical Exam: Physical Exam: Vitals signs as noted above General Appearance:Moderately built and nourished, no apparent distress Head: normocephalic, Atraumatic Eyes: normal inspection, EOMI Neck: supple, Trachea midline Respiratory/Chest: Decreased breath sounds, CTA, No accessory muscle use Cardiovascular: S1, S2, No murmur Abdomen/GI:Soft, Non tender, Bowel sounds present Extremities/Musculoskeletal:normal inspection, +1 LE edema Neurologic/Psych:AAOX3, grossly no focal neurological deficits Skin: normal color, warm,+Ecchymosis on UE Results & Data Results & Data Vital Signs (Past 12 Hours) Vital Signs Temp Pulse Resp BP BP Pulse Ox O2 Del Method 08/01/23 14:56 66 20 92 High Flow Nasal Cannula 08/01/23 14:01 High Flow Nasal Cannula 08/01/23 11:50 36.6 C 67 21 133/63 89 L High Flow Nasal Cannula 08/01/23 11:00 66 20 90 High Flow Nasal Cannula 08/01/23 10:58 66 20 90 High Flow Nasal Cannula 08/01/23 08:00 High Flow Nasal Cannula 08/01/23 07:19 70 16 93 High Flow Nasal Cannula 08/01/23 07:18 70 19 93 High Flow Nasal Cannula 08/01/23 06:42 36.4 C L 61 18 115/63 89 L High Flow Nasal Cannula 08/01/23 04:17 36.5 C 63 15 144/71 H 96 BiPAP O2 Flow Rate FiO2 08/01/23 14:56 30 70 08/01/23 14:01 35 70 08/01/23 11:50 08/01/23 11:00 35 70 08/01/23 10:58 35 70 08/01/23 08:00 35 70 08/01/23 07:19 35 70 08/01/23 07:18 35 70 08/01/23 06:42 08/01/23 04:17 Laboratory Results Short CBC 08/01/23 Range/Units 05:29 WBC 10.74 (4.8-10.8) K/ul Hgb 9.1 L (12.0-16.0) g/dl Hct 29.8 L (37.0-47.0) % Plt Count 136 (130-400) K/uL BMP 08/01/23 05:29 Sodium 133 L Potassium 5.2 H Chloride 90 L Carbon Dioxide 38 H BUN 37 H Creatinine 1.03 Glucose 160 H Calcium 9.4 (10) GERD (gastroesophageal reflux disease) Esophagitis presence: without esophagitis Qualified Code(s): K21.9 - Gastro- esophageal reflux disease without esophagitis (11) HTN (hypertension) Hypertension type: unspecified Qualified Code(s): I10 - Essential (primary) hypertension
[2023-08-01] MEDS: MONTELUKAST SODIUM 10 MG TABLET PO SCH (21:34)
[2023-08-02] MEDS: HEPARIN SOD 5,000 UNIT/0.5 ML VIAL SQ SCH ×3 (05:04→21:32)
[2023-08-02 07:04] LABS: Hematocrit (blood only) 28.3 % (37.0-47.0); Hemoglobin 8.5 g/dl (12.0-16.0); Mean Corpuscular Hemoglobin 26.6 pg (25.0-34.0); Mean Corpuscular Volume 88.7 fL (80.0-100.0); Mean Platelet Volume 10.5 fL (9.4-12.4); Nucleated RBC # (auto) 0.05 K/uL (0.00-0.12); Nucleated RBC % (auto) 0.7 %; Platelet Count 123 K/uL (130-400); RDW Coefficient of Variation 20.5 % (11.5-14.5); RDW Standard Deviation 66.3 fL (36.4-46.3); Red Blood Count 3.19 M/uL (4.20-5.40); White Blood Count 7.66 K/ul (4.8-10.8)
[2023-08-02 07:22] LABS: BUN Creatinine Ratio 44.1 (10-20); Calcium 9.4 mg/dl (8.6-10.3); Creatinine Clr Calc Pharmacy 68.7 ml/min; Est GFR (African American) 72.7 ml/min; Est GFR (Non-African American) 62.7 ml/min; Potassium 5.1 mmol/L (3.5-5.1)
[2023-08-02] MEDS: ALBUT/IPRATROP 3MG/0.5MG NEB 3 ML VIAL NEB SCH ×2 (07:28→19:37)
[2023-08-02] MEDS: SODIUM CHLOR 7% 4 ML NEB NEB SCH ×2 (07:28→19:37)
[2023-08-02] MEDS: methylPREDNISolone 40 MG in SYRINGE 0 ML IV SCH (09:09)
[2023-08-02] MEDS: FUROSEMIDE 40 MG TAB PO SCH (09:10)
[2023-08-02] MEDS: FOLIC ACID 1 MG TAB PO SCH (09:10)
[2023-08-02] MEDS: LORATADINE 10 MG TAB PO SCH (09:11)
[2023-08-02] MEDS: PANTOprazole 40 MG TAB PO SCH ×2 (09:11→21:27)
[2023-08-02] MEDS: MAGNESIUM CHLORIDE W/CALCIUM 64MG DELAYED REL TAB PO SCH ×2 (09:11→21:24)
[2023-08-02] MEDS: SOTALOL HCL 80 MG TAB PO SCH ×2 (09:12→21:25)
[2023-08-02] MEDS: SULFAMETHOXAZOLE/TRIMETHOPRIM DS 800/160MG TAB PO SCH ×2 (09:12→21:25)
[2023-08-02] MEDS: SERTRALINE HCL 100 MG TABLET PO SCH (09:13)
[2023-08-02] MEDS: DOCUSATE SODIUM 100 MG CAP PO SCH ×2 (09:13→21:27)
[2023-08-02] MEDS: CHOLECALCIFEROL 1,000 UNITS 25 MCG TAB PO SCH (09:13)
[2023-08-02] MEDS: amLODIPine BESYLATE 5 MG TAB PO SCH (09:14)
[2023-08-02] MEDS: guaiFENesin 600 MG TABCR PO SCH ×2 (09:14→21:26)
[2023-08-02] MEDS: GABAPENTIN 300 MG CAP PO SCH ×3 (09:14→21:24)
[2023-08-02] MEDS: NYSTATIN SUSP 500,000 U/5 ML UDC PO SCH ×4 (09:15→21:24)
[2023-08-02] MEDS: FOSFOMYCIN TROMETHAMINE 3 GM PACKET PO SCH (09:16)
[2023-08-02] MEDS: LORazepam 0.5 MG TAB PO PRN ×2 (09:20→18:39)
--- NOTE | 2023-08-02 10:54 | Pulmonology Progress Note ---
Date of Service August 02, 2023 Assessment & Plan (1) Acute respiratory failure with hypoxia and hypercapnia: (2) Hypersensitivity pneumonitis: (3) Steroid dependent: (4) BERRY (obstructive sleep apnea): Plan Impression: 67-year-old female with history of hypersensitivity pneumonitis. Unclear how the diagnosis was made or what the offending agent is but she has had recurrent hospitalizations with progressive infiltrates. She is been treated aggressively with antibiotics with no significant improvement and is now both hypoxemic and hypercarbic. Her current oxygen requirement and respiratory status would preclude bronchoscopy at this point time. She is currently being treated for potentially reversible etiologies with high-dose steroids. CT chest 07/22/2023 personally reviewed: Bilateral patchy opacities appreciated especially in the upper lobes Small right-sided pleural effusion Minimal minimal mediastinal lymphadenopathy Bilateral opacities have worsened compared to CT chest 05/2023 2D echo 06/18/2023: EF 60-65%, grade 1 diastolic dysfunction, PASP 40 mmHg Recommendations: -- Acute on chronic hypoxic hypercapnic respiratory failure Likely secondary to exacerbation of underlying hypersensitive pneumonitis HFpEF also playing a sport On Solu-Medrol 125 mg Q8, continue with pantoprazole 40 mg twice daily while on high-dose steroids Consideration for mycophenolate or azathioprine based on patient's response PJP prophylaxis to be considered if patient needs to this admission. Too unstable for bronchoscopy Respiratory bio fire negative for everything on 07/22/2023 BNP 325 Treatment with Bactrim for PJP empirically started 07/28/2023 --BERRY Patient was intolerant to CPAP in the past --Obesity Advised to lose with diet and exercise --Chronic prednisone dependence 10 mg on a daily basis Used to be on 80 mg back in March 2023. The reason for prednisone is autoimmune/hemolytic anemia Plan: In/out: -10 L since coming to the hospital Go down on Solu-Medrol to 40 mg daily Continue empiric treatment for for PJP pneumonia with Bactrim. Keep an eye on potassium as well as sodium while patient is on Bactrim O2 supplementation to keep oxygen saturation between 88-92%. BiPAP/CPAP nightly and as needed shortness of breath will also be beneficial Follow-up PJP PCR from sputum. I spoke with RT to get into sputum as patient is not able to bring anything up. Case was discussed with Dr. Dixon as well as RN at bedside Please note the above document was generated using voice recognition software. It may contain grammatical, syntax or spelling errors.Any formal questions or concerns about the content, text or information contained within the body of this dictation should be directly addressed to the provider for clarification. Admission and Anticipated Discharge Date Admission Date: July 22, 2023 Subjective Patient seen and examined at bedside. No acute distress, notable since overnight Stable on 30 L, 70% high flow. Saturating 88-89% Did use BiPAP overnight. Not bringing up any phlegm Diuresing well Denied any chest pain, no headache, no nausea, no vomiting Fair appetite Review of Systems Review of Systems: All systems reviewed & are unremarkable except as noted in Subjective Physical Exam Physical Exam: Constitutional: No acute distress HEENT: EOMI, PERRLA Respiratory system: Decreased air entry bilaterally, no wheeze, no rhonchi, positive crackles appreciated bilaterally posteriorly and anteriorly CVS: S1-S2 positive, no murmurs or gallops Abdomen: Soft, nontender, nondistended, positive bowel sounds x4 Extremities: +2 pulses bilaterally radialis/ dorsalis pedis, no cyanosis, +1 pi tting edema bilateral lower extremity Neuro: Awake alert oriented x3 Psych: Normal mood and affect G/U: Positive Yuen Skin: no rashes, warm and dry Lymphatic: no cervical or axillary lymphadenopathy Results & Data Results & Data Vital Signs (Past 12 Hours) Vital Signs Temp Pulse Pulse Resp BP BP Pulse Ox 08/02/23 07:42 36.4 C L 61 19 126/62 94 08/02/23 07:42 61 20 94 08/02/23 07:29 60 18 96 08/02/23 07:18 62 08/02/23 04:27 90 19 94 08/01/23 23:10 63 26 H 93 08/02/23 04:07 37 C 61 20 131/84 96 08/02/23 01:55 64 08/01/23 23:17 36.7 C 61 20 126/49 L 95 O2 Del Method O2 Flow Rate FiO2 08/02/23 07:42 BiPAP 08/02/23 07:42 High Flow Nasal Cannula 30 70 08/02/23 07:29 BiPAP 60 08/02/23 07:18 08/02/23 04:27 60 08/01/23 23:10 60 08/02/23 04:07 BiPAP 08/02/23 01:55 08/01/23 23:17 BiPAP Laboratory Results 08/02/23 06:07 08/02/23 06:07 PG Care Time/CCT Total # of Minutes Spent Total Time Spent with Patient: Total time spent is greater than 50% in coordination of care (as documented) at patient's floor/unit and/or counseling patient: Coding Level of Care Code 17977 SUB INP/OBS CARE 2/35MIN Diagnoses Acute respiratory failure with hypoxia and hypercapnia J96.01; J96.02 Hypersensitivity pneumonitis J67.9 Steroid dependent F19.20 BERRY (obstructive sleep apnea) G47.33
[2023-08-02] MEDS: PATIROMER CALCIUM SORBITEX 8.4 GM PACK PO SCH (13:33)
--- NOTE | 2023-08-02 16:25 | Hospitalist Progress Note ---
Date of Service August 02, 2023 Assessment & Plan (1) Acute respiratory failure with hypoxia and hypercapnia: (2) Acute dyspnea: (3) BERRY (obstructive sleep apnea): (4) Acute exacerbation of CHF (congestive heart failure): (5) Paroxysmal atrial fibrillation: (6) Pacemaker: (7) CKD (chronic kidney disease), stage III: (8) Obesity, morbid, BMI 40.0-49.9: (9) Chronic anemia: (10) GERD (gastroesophageal reflux disease): (11) HTN (hypertension): Plan: Patient is a 67 yr female with history of chronic hypersensitive pneumonitis with multiple hospitalization presented with increasing shortness of breath. At baseline she uses 5 L of oxygen at rest. As per her outpatient pulmonology; HP panel was checked which showed sensitivity to several molds. Autoimmune panel are negative. Acute on chronic respiratory failure with hypoxia and hypercarbia Chronic hypersensitivity pneumonitis Exacerbation Pulmonary hypertension BERRY Chronic oxygen dependency--on 5 L of oxygen at baseline - CT chest reviewed personally: Progression of extensive multifocal consolidation and groundglass opacities within the lungs since CT of May 19, 2023. These are nonspecific. Primary considerations include multifocal pneumonia, pulmonary edema and ARDS. Interval development of small right and trace left pleural effusions. Moderate cardiomegaly and coronary artery calcification. Mild dilatation of the central pulmonary arteries which raises the possibility of pulmonary arterial hypertension. -Repeat chest x-ray done on July 27 personally reviewed; slight improvement in the groundglass opacities. --Blood Cx:Negative to date --Biofire:Negative -- Other serological/Immunological tests reviewed -- Sputum for PJP pending (unable to produce sputum) --Urine for Legionella, Histoplasmosis pending --ECHO: July 01: Mild concentric LVH. EF 60 to 65%. Mild mitral, tricuspid regurgitation, grade 1 diastolic dysfunction. Mild pulmonary hypertension. Patient currently unstable for bronchoscopy Continue BiPAP at bedtime Continue high flow oxygen--Titrate as able Appreciate pulmonology input Continue Bactrim for suspected PJP Continue IV diuresis--decrease to PO lasix 40 mg daily Monitor I's and O's, daily weight, renal function Continue aggressive pulmonary hygiene IV Solu-Medrol decreased to 40 mg daily Hyperkalemia Received patiromer Low potassium diet Monitor Oral thrush Developed on high-dose steroid. Continue Nystatin p.o. 4 times daily. H/O Tachy-lakeisha syndrome: S/P Pacemaker Paroxysmal atrial fibrillation Rhythm controlled on sotalo Not anticoagulated due to history of chronic anemia and bleeding issues Hemolytic anemia: Follows with heme-onc, currently on prednisone 10 mg daily. Prednisone currently on hold as patient is on high-dose steroids. Given 1 unit of packed RBC on July 24, 2023. Hemoglobin around 8-9 Monitor CKD stage III Stable Monitor renal function Mood disorder Continue home medications GERD Continue Protonix DVT Px: Heparin SQ Code Status DNI/DNR Disposition: PT/OT prior to discharge Admission and Anticipated Discharge Date Admission Date: July 22, 2023 Subjective Patient is seen and examined at bedside Subjectively feels no significant change from yesterday Had transient nausea earlier today but resolved later Was able to tolerate BiPAP for about 8 hours per patient Denies any significant cough, chest pain, nausea, vomiting, abdominal pain Review of Systems Review of Systems: All systems reviewed & are unremarkable except as noted in Subjective Physical Exam Physical Exam: Physical Exam: Vitals signs as noted above General Appearance:Moderately built and nourished, no apparent distress Head: normocephalic, Atraumatic Eyes: normal inspection, EOMI Neck: supple, Trachea midline Respiratory/Chest: Decreased breath sounds, CTA, No accessory muscle use Cardiovascular: S1, S2, No murmur Abdomen/GI:Soft, Non tender, Bowel sounds present Extremities/Musculoskeletal:normal inspection, +1 LE edema Neurologic/Psych:AAOX3, grossly no focal neurological deficits Skin: normal color, warm,+Ecchymosis on UE Results & Data Results & Data Vital Signs (Past 12 Hours) Vital Signs Temp Pulse Pulse Resp BP Pulse Ox O2 Del Method 08/02/23 16:01 36.8 C 63 20 130/93 93 High Flow Nasal Cannula 08/02/23 15:24 High Flow Nasal Cannula 08/02/23 14:43 64 17 93 High Flow Nasal Cannula 08/02/23 12:26 37.0 C 62 19 122/75 93 High Flow Nasal Cannula 08/02/23 11:19 61 19 94 High Flow Nasal Cannula 08/02/23 07:42 36.4 C L 61 19 126/62 94 BiPAP 08/02/23 07:42 61 20 94 High Flow Nasal Cannula 08/02/23 07:29 60 18 96 BiPAP 08/02/23 07:18 62 08/02/23 04:27 90 19 94 O2 Flow Rate FiO2 08/02/23 16:01 08/02/23 15:24 35 70 08/02/23 14:43 30 70 08/02/23 12:26 08/02/23 11:19 30 70 08/02/23 07:42 08/02/23 07:42 30 70 08/02/23 07:29 60 08/02/23 07:18 08/02/23 04:27 60 Laboratory Results Short CBC 08/02/23 Range/Units 06:07 WBC 7.66 (4.8-10.8) K/ul Hgb 8.5 L (12.0-16.0) g/dl Hct 28.3 L (37.0-47.0) % Plt Count 123 L (130-400) K/uL BMP 08/02/23 06:07 Sodium 134 L Potassium 5.1 Chloride 92 L Carbon Dioxide 38 H BUN 41 H Creatinine 0.93 Glucose 151 H Calcium 9.4 (10) GERD (gastroesophageal reflux disease) Esophagitis presence: without esophagitis Qualified Code(s): K21.9 - Gastro- esophageal reflux disease without esophagitis (11) HTN (hypertension) Hypertension type: unspecified Qualified Code(s): I10 - Essential (primary) hypertension
[2023-08-02] MEDS: MONTELUKAST SODIUM 10 MG TABLET PO SCH (21:27)
[2023-08-03 06:04] LABS: Hematocrit (blood only) 29.8 % (37.0-47.0); Hemoglobin 8.7 g/dl (12.0-16.0)
[2023-08-03] MEDS: HEPARIN SOD 5,000 UNIT/0.5 ML VIAL SQ SCH ×3 (06:05→21:08)
[2023-08-03 06:20] LABS: BUN Creatinine Ratio 31.5 (10-20); Calcium 9.6 mg/dl (8.6-10.3); Creatinine Clr Calc Pharmacy 57.5 ml/min; Est GFR (African American) 58.7 ml/min; Est GFR (Non-African American) 50.6 ml/min; Potassium 4.9 mmol/L (3.5-5.1)
[2023-08-03] MEDS: ALBUT/IPRATROP 3MG/0.5MG NEB 3 ML VIAL NEB SCH ×2 (07:21→19:44)
[2023-08-03] MEDS: SODIUM CHLOR 7% 4 ML NEB NEB SCH (07:21)
--- NOTE | 2023-08-03 07:38 | Pulmonology Progress Note ---
Date of Service August 03, 2023 Assessment & Plan (1) Acute respiratory failure with hypoxia and hypercapnia: (2) Hypersensitivity pneumonitis: Plan Impression: 67-year-old female with history of hypersensitivity pneumonitis. Unclear how the diagnosis was made or what the offending agent is but she has had recurrent hospitalizations with progressive infiltrates. She is been treated aggressively with antibiotics with no significant improvement and is now both hypoxemic and hypercarbic. She may admitted to the hospital for 12 days and been on high-dose steroids as well as empiric antibiotics for PJP without significant improvement. She is trying to be compliant with nocturnal noninvasive positive pressure ventilation Recommendations: 1. Hypersensitivity pneumonitis: Does not appear that the patient has responded favorably to high-dose steroids as her oxygen requirement is not significantly improved. We will check a chest x-ray in the a.m. to see where we are from a radiologic standpoint. She is down to 40 of Solu-Medrol daily. If she did not respond to aggressive Solu-Medrol, its unlikely that additional immune suppression such as IVIG, azathioprine, or plasmapheresis would be beneficial. Before considering these options would need to pursue a definitive diagnosis which again would likely require intubation mechanical ventilation which the patient does not want. 2. Unclear how much of this process is reversible but the patient clearly has shown evidence of clinical decline over the last several weeks. 3. Hypoxemic and hypercarbic respiratory failure. Given her significant hypercarbia would not try and target oxygen saturations much above 88 to 89%. Continue nightly attempts with noninvasive positive pressure ventilation to try and lower CO2 levels. Her hypoxemia is certainly impacted by her resting CO2 levels in the 80s or 90s. May be able to significantly improve her oxygen requirement if we can get her CO2 levels lowered. 4. Weight loss would ultimately be beneficial. 5. Patient may benefit from consideration of long-term acute care hospital as I think her oxygen requirements would preclude rehab. The above recommendations and plan were extensively discussed with the patient at bedside. Questions were answered to the best my ability. She expressed understanding and is in agreement with the plan as outlined. Admission and Anticipated Discharge Date Admission Date: July 22, 2023 Subjective Patient seen and examined. EMR reviewed. Discussed with off going hat sizer. Patient states that she may feel little bit better. Unfortunately she appears clinically stagnant with regards to her oxygen requirement. She remains on high flow. She is not much different than when I saw her over a week ago. She denies fevers chills night sweats. She is not coughing or expectorating phlegm. Review of Systems Review of Systems: All systems reviewed & are unremarkable except as noted in Subjective Physical Exam Constitutional: WD/WN, vitals as above Eyes: PERRL, conjunctivae normal, anicteric sclerae ENMT: external ear and nose normal, oropharynx normal Neck: trachea midline, no thyromegaly Respiratory: no respiratory distress, no labored breathing, no cough and not tachypneic Auscultation: + crackles; no wheezes Cardiovascular: RRR, no murmur, no edema Rate/Rhythm: regular rate and regular rhythm Gastrointestinal (Abdomen): normal bowel sounds, soft, nontender, no hepatosplenomegaly Musculoskeletal: no cyanosis or clubbing, extremities motor strength 5/5 Neurologic: patellar DTR's 2+ bilat, sensation intact and PERRL, EOMI, accommodation nl, no face palsy, no dysarthria Psychiatric: A+Ox3, euthymic affect Results & Data Results & Data Vital Signs (Past 12 Hours) Vital Signs Temp Pulse Pulse Resp BP Pulse Ox O2 Del Method 08/03/23 07:23 60 18 90 High Flow Nasal Cannula 08/03/23 07:22 60 18 90 High Flow Nasal Cannula 08/03/23 07:14 36.6 C 60 18 131/58 L 94 High Flow Nasal Cannula, Nebulizer 08/03/23 03:28 60 20 92 08/03/23 00:25 65 19 94 08/03/23 02:32 36.6 C 63 18 123/78 93 BiPAP 08/02/23 21:30 High Flow Nasal Cannula 08/03/23 00:36 66 08/02/23 22:41 36.6 C 66 18 134/75 94 BiPAP 08/02/23 21:51 67 27 H 91 08/02/23 19:39 63 20 89 L High Flow Nasal Cannula O2 Flow Rate FiO2 08/03/23 07:23 35 70 08/03/23 07:22 35 70 08/03/23 07:14 35 70 08/03/23 03:28 55 08/03/23 00:25 55 08/03/23 02:32 08/02/23 21:30 35 70 08/03/23 00:36 08/02/23 22:41 08/02/23 21:51 60 08/02/23 19:39 30 70 Laboratory Results 08/03/23 05:42 08/03/23 05:42 LDH from 07/08/2023 was normal at 208 Diagnostic Findings No new imaging PG Care Time/CCT Total # of Minutes Spent Total Time Spent with Patient: Total time spent is greater than 50% in coordination of care (as documented) at patient's floor/unit and/or counseling patient: Coding Level of Care Code 87884 SUB INP/OBS CARE 3/50MIN Diagnoses Acute respiratory failure with hypoxia and hypercapnia J96.01; J96.02 Hypersensitivity pneumonitis J67.9
[2023-08-03] MEDS: PANTOprazole 40 MG TAB PO SCH ×2 (08:32→21:09)
[2023-08-03] MEDS: guaiFENesin 600 MG TABCR PO SCH ×2 (08:33→21:05)
[2023-08-03] MEDS: SERTRALINE HCL 100 MG TABLET PO SCH (08:33)
[2023-08-03] MEDS: FOLIC ACID 1 MG TAB PO SCH (08:33)
[2023-08-03] MEDS: SULFAMETHOXAZOLE/TRIMETHOPRIM DS 800/160MG TAB PO SCH ×2 (08:33→21:08)
[2023-08-03] MEDS: CHOLECALCIFEROL 1,000 UNITS 25 MCG TAB PO SCH (08:33)
[2023-08-03] MEDS: SOTALOL HCL 80 MG TAB PO SCH ×2 (08:33→20:00)
[2023-08-03] MEDS: FUROSEMIDE 40 MG TAB PO SCH (08:33)
[2023-08-03] MEDS: LORATADINE 10 MG TAB PO SCH (08:33)
[2023-08-03] MEDS: amLODIPine BESYLATE 5 MG TAB PO SCH (08:33)
[2023-08-03] MEDS: methylPREDNISolone 40 MG in SYRINGE 0 ML IV SCH (08:34)
[2023-08-03] MEDS: GABAPENTIN 300 MG CAP PO SCH ×3 (08:34→21:04)
[2023-08-03] MEDS: MAGNESIUM CHLORIDE W/CALCIUM 64MG DELAYED REL TAB PO SCH ×2 (08:34→21:05)
[2023-08-03] MEDS: NYSTATIN SUSP 500,000 U/5 ML UDC PO SCH ×4 (08:35→21:09)
[2023-08-03] MEDS: DOCUSATE SODIUM 100 MG CAP PO SCH ×2 (08:35→21:10)
[2023-08-03] MEDS: LORazepam 0.5 MG TAB PO PRN ×2 (08:39→21:04)
[2023-08-03] MEDS: PATIROMER CALCIUM SORBITEX 8.4 GM PACK PO SCH (12:04)
--- NOTE | 2023-08-03 14:28 | Hospitalist Progress Note ---
Date of Service August 03, 2023 Assessment & Plan (1) Acute respiratory failure with hypoxia and hypercapnia: (2) Acute dyspnea: (3) BERRY (obstructive sleep apnea): (4) Acute exacerbation of CHF (congestive heart failure): (5) Paroxysmal atrial fibrillation: (6) Pacemaker: (7) CKD (chronic kidney disease), stage III: (8) Obesity, morbid, BMI 40.0-49.9: (9) Chronic anemia: (10) GERD (gastroesophageal reflux disease): (11) HTN (hypertension): Plan: Patient is a 67 yr female with history of chronic hypersensitive pneumonitis with multiple hospitalization presented with increasing shortness of breath. At baseline she uses 5 L of oxygen at rest. As per her outpatient pulmonology; HP panel was checked which showed sensitivity to several molds. Autoimmune panel are negative. Acute on chronic respiratory failure with hypoxia and hypercarbia Chronic hypersensitivity pneumonitis Exacerbation Pulmonary hypertension BERRY Chronic oxygen dependency--on 5 L of oxygen at baseline - CT chest reviewed personally: Progression of extensive multifocal consolidation and groundglass opacities within the lungs since CT of May 19, 2023. These are nonspecific. Primary considerations include multifocal pneumonia, pulmonary edema and ARDS. Interval development of small right and trace left pleural effusions. Moderate cardiomegaly and coronary artery calcification. Mild dilatation of the central pulmonary arteries which raises the possibility of pulmonary arterial hypertension. -Repeat chest x-ray done on July 27 personally reviewed; slight improvement in the groundglass opacities. --Blood Cx:Negative to date --Biofire:Negative -- Other serological/Immunological tests reviewed -- Sputum for PJP pending (unable to produce sputum) --Serology for Legionella, Histoplasmosis Negative --ECHO: July 01: Mild concentric LVH. EF 60 to 65%. Mild mitral, tricuspid regurgitation, grade 1 diastolic dysfunction. Mild pulmonary hypertension. Patient currently unstable for bronchoscopy Continue BiPAP at bedtime Continue high flow oxygen--Titrate as able Appreciate pulmonology input Continue Bactrim for suspected PJP Continue IV diuresis--decrease to PO lasix 40 mg daily Monitor I's and O's, daily weight, renal function Continue aggressive pulmonary hygiene IV Solu-Medrol decreased to 40 mg daily Clinically did not show any significant improvement Continue current management May need LTAC Hyperkalemia Received patiromer Low potassium diet Monitor Oral thrush Developed on high-dose steroid. Continue Nystatin p.o. 4 times daily. H/O Tachy-lakeisha syndrome: S/P Pacemaker Paroxysmal atrial fibrillation Rhythm controlled on sotalo Not anticoagulated due to history of chronic anemia and bleeding issues Hemolytic anemia: Follows with heme-onc, currently on prednisone 10 mg daily. Prednisone curren tly on hold as patient is on high-dose steroids. Given 1 unit of packed RBC on July 24, 2023. Hemoglobin around 8-9 Monitor CKD stage III Stable Monitor renal function Mood disorder Continue home medications GERD Continue Protonix DVT Px: Heparin SQ Code Status DNI/DNR Disposition: PT/OT prior to discharge Admission and Anticipated Discharge Date Admission Date: July 22, 2023 Subjective Patient is seen and examined at bedside Was able to tolerate BiPAP for about 8 hours overnight Subjectively feels better Still requiring significant supplemental oxygen to maintain saturations Denies any cough, chest pain, dizziness, nausea, vomiting Remains on high flow oxygen Review of Systems Review of Systems: All systems reviewed & are unremarkable except as noted in Subjective Physical Exam Physical Exam: Physical Exam: Vitals signs as noted above General Appearance:Moderately built and nourished, no apparent distress Head: normocephalic, Atraumatic Eyes: normal inspection, EOMI Neck: supple, Trachea midline Respiratory/Chest: Decreased breath sounds, CTA, No accessory muscle use Cardiovascular: S1, S2, No murmur Abdomen/GI:Soft, Non tender, Bowel sounds present Extremities/Musculoskeletal:normal inspection, +1 LE edema Neurologic/Psych:AAOX3, grossly no focal neurological deficits Skin: normal color, warm,+Ecchymosis on UE Results & Data Results & Data Vital Signs (Past 12 Hours) Vital Signs Temp Pulse Pulse Resp BP Pulse Ox O2 Del Method 08/03/23 12:00 36.6 C 64 20 120/64 95 High Flow Nasal Cannula 08/03/23 10:30 60 17 90 High Flow Nasal Cannula 08/03/23 09:00 High Flow Nasal Cannula 08/03/23 07:30 60 08/03/23 07:23 60 18 90 High Flow Nasal Cannula 08/03/23 07:22 60 18 90 High Flow Nasal Cannula 08/03/23 07:14 36.6 C 60 18 131/58 L 94 High Flow Nasal Cannula, Nebulizer 08/03/23 03:28 60 20 92 08/03/23 02:32 36.6 C 63 18 123/78 93 BiPAP O2 Flow Rate FiO2 08/03/23 12:00 08/03/23 10:30 35 70 08/03/23 09:00 35 70 08/03/23 07:30 08/03/23 07:23 35 70 08/03/23 07:22 35 70 08/03/23 07:14 35 70 08/03/23 03:28 55 08/03/23 02:32 Laboratory Results Short CBC 08/03/23 Range/Units 05:42 Hgb 8.7 L (12.0-16.0) g/dl Hct 29.8 L (37.0-47.0) % BMP 08/03/23 05:42 Sodium 135 L Potassium 4.9 Chloride 93 L Carbon Dioxide 38 H BUN 35 H Creatinine 1.11 Glucose 96 Calcium 9.6 (10) GERD (gastroesophageal reflux disease) Esophagitis presence: without esophagitis Qualified Code(s): K21.9 - Gastro- esophageal reflux disease without esophagitis (11) HTN (hypertension) Hypertension type: unspecified Qualified Code(s): I10 - Essential (primary) hypertension
[2023-08-03] MEDS: ACETAMINOPHEN 325 MG TAB PO PRN (21:04)
[2023-08-03] MEDS: MONTELUKAST SODIUM 10 MG TABLET PO SCH (21:05)
[2023-08-04] MEDS: ACETAMINOPHEN 325 MG TAB PO PRN ×2 (05:24→21:38)
[2023-08-04] MEDS: HEPARIN SOD 5,000 UNIT/0.5 ML VIAL SQ SCH ×3 (05:26→22:15)
[2023-08-04] MEDS: LORazepam 0.5 MG TAB PO PRN ×2 (06:01→21:38)
[2023-08-04 06:23] LABS: Hematocrit (blood only) 28.5 % (37.0-47.0); Hemoglobin 8.5 g/dl (12.0-16.0); Mean Corpuscular Hemoglobin 26.6 pg (25.0-34.0); Mean Corpuscular Hgb Conc 29.8 g/dL (32.0-36.0); Mean Corpuscular Volume 89.1 fL (80.0-100.0); Mean Platelet Volume 11.3 fL (9.4-12.4); Nucleated RBC # (auto) 0.03 K/uL (0.00-0.12); Nucleated RBC % (auto) 0.5 %; Platelet Count 115 K/uL (130-400); RDW Standard Deviation 67.7 fL (36.4-46.3); White Blood Count 5.81 K/ul (4.8-10.8)
[2023-08-04 06:43] LABS: BUN Creatinine Ratio 29.8 (10-20); Calcium 9.4 mg/dl (8.6-10.3); Creatinine Clr Calc Pharmacy 61.4 ml/min; Est GFR (African American) 63.5 ml/min; Est GFR (Non-African American) 54.8 ml/min; Potassium 4.5 mmol/L (3.5-5.1)
[2023-08-04] MEDS: ALBUT/IPRATROP 3MG/0.5MG NEB 3 ML VIAL NEB SCH ×2 (07:18→19:47)
--- NOTE | 2023-08-04 08:22 | XRay Report ---
XR chest 1V portable HISTORY: hypoxemia COMPARISON: Chest 07/27/2023. FINDINGS: There are low lung volumes. No pneumothorax. No pleural effusions. The heart remains mildly enlarged. There is left-sided dual-chamber pacemaker. Multifocal patchy bilateral airspace opacities are again noted. These have slightly improved in the interval. No acute fractures. Surgical clips wi thin the upper abdomen. IMPRESSION: Multifocal bilateral airspace opacities again noted. These have slightly improved in the interval. ACT 112: Negative or not required by law. Electronically signed by: Karthik Cantu M.D. 08/04/2023 8:20 AM
[2023-08-04] MEDS: methylPREDNISolone 40 MG in SYRINGE 0 ML IV SCH (08:52)
[2023-08-04] MEDS: DOCUSATE SODIUM 100 MG CAP PO SCH ×2 (08:52→22:10)
[2023-08-04] MEDS: FOLIC ACID 1 MG TAB PO SCH (08:53)
[2023-08-04] MEDS: MAGNESIUM CHLORIDE W/CALCIUM 64MG DELAYED REL TAB PO SCH ×2 (08:53→22:11)
[2023-08-04] MEDS: NYSTATIN SUSP 500,000 U/5 ML UDC PO SCH ×4 (08:53→22:11)
[2023-08-04] MEDS: amLODIPine BESYLATE 5 MG TAB PO SCH (08:53)
[2023-08-04] MEDS: SOTALOL HCL 80 MG TAB PO SCH ×2 (08:54→22:12)
[2023-08-04] MEDS: FUROSEMIDE 40 MG TAB PO SCH (08:54)
[2023-08-04] MEDS: guaiFENesin 600 MG TABCR PO SCH ×2 (08:54→22:10)
[2023-08-04] MEDS: CHOLECALCIFEROL 1,000 UNITS 25 MCG TAB PO SCH (08:55)
[2023-08-04] MEDS: SULFAMETHOXAZOLE/TRIMETHOPRIM DS 800/160MG TAB PO SCH ×2 (08:55→22:14)
[2023-08-04] MEDS: GABAPENTIN 300 MG CAP PO SCH ×3 (08:55→22:10)
[2023-08-04] MEDS: LORATADINE 10 MG TAB PO SCH (08:55)
[2023-08-04] MEDS: SERTRALINE HCL 100 MG TABLET PO SCH (08:57)
[2023-08-04] MEDS: PANTOprazole 40 MG TAB PO SCH ×2 (08:58→22:12)
--- NOTE | 2023-08-04 12:19 | Pulmonology Progress Note ---
Date of Service August 04, 2023 Assessment & Plan (1) Acute respiratory failure with hypoxia and hypercapnia: (2) Hypersensitivity pneumonitis: Plan Impression: 67-year-old female with history of hypersensitivity pneumonitis. Unclear how the diagnosis was made or what the offending agent is but she has had recurrent hospitalizations with progressive infiltrates. She is been treated aggressively with antibiotics with no significant improvement and is now both hypoxemic and hypercarbic. She may admitted to the hospital for 13 days and been on high-dose steroids as well as empiric antibiotics for PJP without significant improvement. She is trying to be compliant with nocturnal noninvasive positive pressure ventilation. She is currently down to 30 L/60% on HFNC. Recommendations: 1. Hypersensitivity pneumonitis: Does not appear that the patient has responded favorably to high-dose steroids as her oxygen requirement is not significantly improved. CXR suggest "slightly improved" today. She is down to 40 of Solu- Medrol daily. If she did not respond to aggressive Solu-Medrol, its unlikely that additional immune suppression such as IVIG, azathioprine, or plasmapheresis would be beneficial. Before considering these options would need to pursue a definitive diagnosis which again would likely require intubation mechanical ventilation which the patient does not want. 2. Unclear how much of this process is reversible but the patient clearly has shown evidence of clinical decline over the last several weeks. 3. Hypoxemic and hypercarbic respiratory failure. Given her significant hypercarbia would not try and target oxygen saturations much above 88 to 89%. Continue nightly attempts with noninvasive positive pressure ventilation to try and lower CO2 levels. Her hypoxemia is certainly impacted by her resting CO2 levels in the 80s or 90s. May be able to significantly improve her oxygen requirement if we can get her CO2 levels lowered. 4. Weight loss would ultimately be beneficial. 5. Patient may benefit from consideration of long-term acute care hospital as I think her oxygen requirements would preclude rehab. The above recommendations and plan were extensively discussed with the patient at bedside. Questions were answered to the best my ability. She expressed understanding and is in agreement with the plan as outlined. Admission and Anticipated Discharge Date Admission Date: July 22, 2023 Subjective Patient was seen and evaluated at bedside. She has persistent shortness of breath with exertion. She continues to use her flutter valve and incentive spirometer. No cough, chest pain, or new symptoms otherwise. Review of Systems Review of Systems: Please refer to admission H&P. No additions or deletions Physical Exam Physical Exam: VITAL SIGNS - Vital signs and nursing notes were reviewed. GENERAL - 67-year-old female appearing her stated age who is in no acute distress. Communicates well with provider and answers questions appropriately. LUNGS - Auscultation reveals bibasilar rales. No wheezes or rhonchi appreciated. CARDIAC - RRR with S1/S2. No murmur, rubs, or gallops appreciated. PSYCH - A&Ox3 and cooperates fully with examiner. Pt is very pleasant and interacts well with examiner. Results & Data Results & Data Vital Signs (Past 12 Hours) Vital Signs Temp Pulse Pulse Resp BP Pulse Ox O2 Del Method 08/04/23 11:00 36.9 C 65 20 124/62 97 Free Flow/Blow-by 08/04/23 08:00 36.8 C 63 18 111/71 97 Free Flow/Blow-by 08/04/23 07:20 63 18 94 High Flow Nasal Cannula 08/04/23 02:10 65 19 95 08/04/23 02:31 36.6 C 61 18 129/67 93 BiPAP O2 Flow Rate FiO2 08/04/23 11:00 08/04/23 08:00 08/04/23 07:20 30 60 08/04/23 02:10 55 08/04/23 02:31 PG Care Time/CCT Total # of Minutes Spent Total Time Spent with Patient: Total time spent is greater than 50% in coordination of care (as documented) at patient's floor/unit and/or counseling patient: Coding Level of Care Code 61963 SUB INP/OBS CARE 2/35MIN Diagnoses Acute respiratory failure with hypoxia and hypercapnia J96.01; J96.02 Hypersensitivity pneumonitis J67.9
[2023-08-04] MEDS: DOCUSATE SODIUM/SENNA 50/8.6MG TAB PO SCH (14:34)
[2023-08-04] MEDS: PATIROMER CALCIUM SORBITEX 8.4 GM PACK PO SCH (14:38)
--- NOTE | 2023-08-04 16:37 | Hospitalist Progress Note ---
Date of Service August 04, 2023 Assessment & Plan (1) Acute respiratory failure with hypoxia and hypercapnia: (2) Acute dyspnea: (3) BERRY (obstructive sleep apnea): (4) Acute exacerbation of CHF (congestive heart failure): (5) Paroxysmal atrial fibrillation: (6) Pacemaker: (7) CKD (chronic kidney disease), stage III: (8) Obesity, morbid, BMI 40.0-49.9: (9) Chronic anemia: (10) GERD (gastroesophageal reflux disease): (11) HTN (hypertension): Plan: Patient is a 67 yr female with history of chronic hypersensitive pneumonitis with multiple hospitalization presented with increasing shortness of breath. At baseline she uses 5 L of oxygen at rest. As per her outpatient pulmonology; HP panel was checked which showed sensitivity to several molds. Autoimmune panel are negative. Acute on chronic respiratory failure with hypoxia and hypercarbia Chronic hypersensitivity pneumonitis Exacerbation Pulmonary hypertension BERRY Chronic oxygen dependency--on 5 L of oxygen at baseline - CT chest reviewed personally: Progression of extensive multifocal consolidation and groundglass opacities within the lungs since CT of May 19, 2023. These are nonspecific. Primary considerations include multifocal pneumonia, pulmonary edema and ARDS. Interval development of small right and trace left pleural effusions. Moderate cardiomegaly and coronary artery calcification. Mild dilatation of the central pulmonary arteries which raises the possibility of pulmonary arterial hypertension. -Repeat chest x-ray done on July 27 personally reviewed; slight improvement in the groundglass opacities. --Blood Cx:Negative to date --Biofire:Negative -- Other serological/Immunological tests reviewed -- Sputum for PJP pending (unable to produce sputum) --Serology for Legionella, Histoplasmosis Negative --ECHO: July 01: Mild concentric LVH. EF 60 to 65%. Mild mitral, tricuspid regurgitation, grade 1 diastolic dysfunction. Mild pulmonary hypertension. Patient currently unstable for bronchoscopy Continue BiPAP at bedtime Continue high flow oxygen--Titrate as able Appreciate pulmonology input Continue Bactrim for suspected PJP Continue IV diuresis--decrease to PO lasix 40 mg daily Monitor I's and O's, daily weight, renal function Continue aggressive pulmonary hygiene IV Solu-Medrol decreased to 40 mg daily May need LTAC Supplemental oxygen requirement slowly trending down Currently saturating well on 30 L, 55% FiO2 Chest x-ray today suggestive slightly improved multifocal bilateral airspace opacities Hyperkalemia Received patiromer Low potassium diet Resolved Monitor Constipation Started on bowel regimen Oral thrush Developed on high-dose steroid. Continue Nystatin p.o. 4 times daily. H/O Tachy-lakeisha syndrome: S/P Pacemaker Paroxysmal atrial fibrillation Rhythm controlled on sotalol Not anticoagulated due to history of chronic anemia and bleeding issues Hemolytic anemia: Follows with heme-onc, currently on prednisone 10 mg daily. Prednisone currently on hold as patient is on high-dose steroids. Given 1 unit of packed RBC on July 24, 2023. Hemoglobin around 8-9 Monitor CKD stage III Stable Monitor renal function Mood disorder Continue home medications GERD Continue Protonix DVT Px: Heparin SQ Code Status DNI/DNR Disposition: PT/OT prior to discharge Case management to help with discharge planning Admission and Anticipated Discharge Date Admission Date: July 22, 2023 Subjective Patient is seen and examined at bedside No new complaints Persistent shortness of breath on exertion Family at bedside Saturating well on 55% FiO2, 30 L Tries to be compliant with BiPAP. Denies any cough, chest pain, dizziness, nausea, vomiting Review of Systems Review of Systems: All systems reviewed & are unremarkable except as noted in Subjective Physical Exam Physical Exam: Physical Exam: Vitals signs as noted above General Appearance:Moderately built and nourished, no apparent distress Head: normocephalic, Atraumatic Eyes: normal inspection, EOMI Neck: supple, Trachea midline Respiratory/Chest: Decreased breath sounds, CTA, No accessory muscle use Cardiovascular: S1, S2, No murmur Abdomen/GI:Soft, Non tender, Bowel sounds present Extremities/Musculoskeletal:normal inspection, +1 LE edema Neurologic/Psych:AAOX3, grossly no focal neurological deficits Skin: normal color, warm,+Ecchymosis on UE Results & Data Results & Data Vital Signs (Past 12 Hours) Vital Signs Temp Pulse Resp BP BP Pulse Ox O2 Del Method 08/04/23 16:21 High Flow Nasal Cannula 08/04/23 16:07 36.9 C 62 20 108/70 93 High Flow Nasal Cannula 08/04/23 10:55 61 20 89 L High Flow Nasal Cannula 08/04/23 15:35 62 18 94 High Flow Nasal Cannula 08/04/23 11:00 36.9 C 65 20 124/62 97 Free Flow/Blow-by 08/04/23 08:00 36.8 C 63 18 111/71 97 Free Flow/Blow-by 08/04/23 07:20 63 18 94 High Flow Nasal Cannula O2 Flow Rate FiO2 08/04/23 16:21 30 55 08/04/23 16:07 30 08/04/23 10:55 30 60 08/04/23 15:35 30 60 08/04/23 11:00 08/04/23 08:00 08/04/23 07:20 30 60 Laboratory Results Short CBC 08/04/23 Range/Units 05:34 WBC 5.81 (4.8-10.8) K/ul Hgb 8.5 L (12.0-16.0) g/dl Hct 28.5 L (37.0-47.0) % Plt Count 115 L (130-400) K/uL BMP 08/04/23 05:34 Sodium 135 L Potassium 4.5 Chloride 94 L Carbon Dioxide 36 H BUN 31 H Creatinine 1.04 Glucose 96 Calcium 9.4 (10) GERD (gastroesophageal reflux disease) Esophagitis presence: without esophagitis Qualified Code(s): K21.9 - Gastro- esophageal reflux disease without esophagitis (11) HTN (hypertension) Hypertension type: unspecified Qualified Code(s): I10 - Essential (primary) hypertension
[2023-08-04] MEDS: MONTELUKAST SODIUM 10 MG TABLET PO SCH (22:10)
[2023-08-05 06:36] LABS: BUN Creatinine Ratio 25.2 (10-20); Calcium 9.3 mg/dl (8.6-10.3); Creatinine Clr Calc Pharmacy 59.6 ml/min; Est GFR (African American) 56.2 ml/min; Est GFR (Non-African American) 48.5 ml/min; Potassium 4.4 mmol/L (3.5-5.1)
[2023-08-05] MEDS: HEPARIN SOD 5,000 UNIT/0.5 ML VIAL SQ SCH ×3 (06:42→21:36)
[2023-08-05] MEDS: ALBUT/IPRATROP 3MG/0.5MG NEB 3 ML VIAL NEB SCH ×2 (08:06→19:24)
[2023-08-05] MEDS: LORazepam 0.5 MG TAB PO PRN ×2 (09:15→21:37)
[2023-08-05] MEDS: DOCUSATE SODIUM 100 MG CAP PO SCH ×2 (09:16→20:37)
[2023-08-05] MEDS: ACETAMINOPHEN 325 MG TAB PO PRN ×2 (09:16→14:33)
[2023-08-05] MEDS: GABAPENTIN 300 MG CAP PO SCH ×3 (09:16→20:40)
[2023-08-05] MEDS: amLODIPine BESYLATE 5 MG TAB PO SCH (09:19)
[2023-08-05] MEDS: SERTRALINE HCL 100 MG TABLET PO SCH (09:19)
[2023-08-05] MEDS: SOTALOL HCL 80 MG TAB PO SCH ×2 (09:19→20:41)
[2023-08-05] MEDS: MAGNESIUM CHLORIDE W/CALCIUM 64MG DELAYED REL TAB PO SCH ×2 (09:20→20:40)
[2023-08-05] MEDS: CHOLECALCIFEROL 1,000 UNITS 25 MCG TAB PO SCH (09:20)
[2023-08-05] MEDS: methylPREDNISolone 40 MG in SYRINGE 0 ML IV SCH (09:20)
[2023-08-05] MEDS: FUROSEMIDE 40 MG TAB PO SCH (09:20)
[2023-08-05] MEDS: DOCUSATE SODIUM/SENNA 50/8.6MG TAB PO SCH (09:20)
[2023-08-05] MEDS: guaiFENesin 600 MG TABCR PO SCH ×2 (09:20→20:43)
[2023-08-05] MEDS: SULFAMETHOXAZOLE/TRIMETHOPRIM DS 800/160MG TAB PO SCH ×2 (09:20→20:39)
[2023-08-05] MEDS: PANTOprazole 40 MG TAB PO SCH ×2 (09:20→20:42)
[2023-08-05] MEDS: NYSTATIN SUSP 500,000 U/5 ML UDC PO SCH ×4 (09:21→20:38)
[2023-08-05] MEDS: LORATADINE 10 MG TAB PO SCH (09:21)
[2023-08-05] MEDS: FOLIC ACID 1 MG TAB PO SCH (09:21)
[2023-08-05] MEDS: POLYETHYLENE (MIRALAX) 17 GM PACK PO PRN (10:38)
--- NOTE | 2023-08-05 11:28 | Pulmonology Progress Note ---
Date of Service August 05, 2023 Assessment & Plan (1) Acute respiratory failure with hypoxia and hypercapnia: (2) Hypersensitivity pneumonitis: Plan Impression: 67-year-old female with history of hypersensitivity pneumonitis. Unclear how the diagnosis was made or what the offending agent is but she has had recurrent hospitalizations with progressive infiltrates. She is been treated aggressively with antibiotics with no significant improvement and is now both hypoxemic and hypercarbic. She may admitted to the hospital for 13 days and been on high-dose steroids as well as empiric antibiotics for PJP without significant improvement. She is trying to be compliant with nocturnal noninvasive positive pressure ventilation. She continues to require high flow oxygen. Recommendations: 1. Hypersensitivity pneumonitis: Does not appear that the patient has responded favorably to high-dose steroids as her oxygen requirement is not significantly improved. CXR suggest "slightly improved" today. She is down to 40 of Solu- Medrol daily. Will transition to prednisone 40 mg a day at this point. If she did not respond to aggressive Solu-Medrol, its unlikely that additional immune suppression such as IVIG, azathioprine, or plasmapheresis would be beneficial. Before considering these options would need to pursue a definitive diagnosis which again would likely require intubation mechanical ventilation which the patient does not want. Agree with plans to pursue long-term acute care facility as I think her oxygen requirement would preclude acute rehab or long-term facility. 2. Unclear how much of this process is reversible 3. Hypoxemic and hypercarbic respiratory failure. Given her significant hypercarbia would not try and target oxygen saturations much above 88 to 89%. Continue nightly attempts with noninvasive positive pressure ventilation to try and lower CO2 levels. Her hypoxemia is certainly impacted by her resting CO2 levels in the 80s or 90s. May be able to significantly improve her oxygen requirement if we can get her CO2 levels lowered. 4. Weight loss would ultimately be beneficial. 5. The patient is on high-dose trimethoprim/sulfamethoxazole for presumptive PJP. Her LDH was normal. She does not appear to be responding favorably and she is day 6 of antimicrobial therapy. We will continue an additional 24 hours and if negative, may consider discontinuation at that point time. Continue her p.o. Lasix The above recommendations and plan were extensively discussed with the patient at bedside. Questions were answered to the best my ability. She expressed understanding and is in agreement with the plan as outlined. Admission and Anticipated Discharge Date Admission Date: July 22, 2023 Subjective Patient seen and examined. EMR reviewed. Patient sitting up in a chair. She actually looks a little bit better and she has been able to wean her FiO2 down to 30 L/min 70% with oxygen saturations in the mid to upper 90% range. She is not coughing. She states she slept poorly last night. She is depressed about her lack of clinical progress. She has been referred for evaluation of LTAC given her persistently high oxygen requirement Review of Systems Review of Systems: All systems reviewed & are unremarkable except as noted in Subjective Physical Exam Constitutional: WD/WN, vitals as above Eyes: PERRL, conjunctivae normal, anicteric sclerae Respiratory: no respiratory distress, no labored breathing, no cough and not tachypneic Auscultation: + crackles; no wheezes Cardiovascular: RRR, no murmur, no edema Rate/Rhythm: regular rate and regular rhythm Gastrointestinal (Abdomen): normal bowel sounds, soft, nontender, no hepatosplenomegaly Musculoskeletal: no cyanosis or clubbing, extremities motor strength 5/5 Neurologic: patellar DTR's 2+ bilat, sensation intact and PERRL, EOMI, accommodation nl, no face palsy, no dysarthria Psychiatric: A+Ox3, euthymic affect Results & Data Results & Data Vital Signs (Past 12 Hours) Vital Signs Temp Pulse Pulse Resp BP BP Pulse Ox 08/05/23 10:54 63 23 96 08/05/23 08:08 60 20 94 08/05/23 08:06 36.6 C 62 22 132/69 93 08/05/23 07:39 63 18 08/05/23 03:10 36.0 C L 64 20 139/57 L 96 08/05/23 00:52 66 21 95 08/05/23 02:02 64 08/05/23 00:00 36.8 C 66 22 142/65 H 93 O2 Del Method O2 Flow Rate FiO2 08/05/23 10:54 High Flow Nasal Cannula 30 60 08/05/23 08:08 High Flow Nasal Cannula 30 70 08/05/23 08:06 BiPAP 08/05/23 07:39 High Flow Nasal Cannula 30 70 08/05/23 03:10 BiPAP 55 08/05/23 00:52 55 08/05/23 02:02 08/05/23 00:00 High Flow Nasal Cannula 30 60 Laboratory Results 08/04/23 05:34 08/05/23 05:29 PG Care Time/CCT Total # of Minutes Spent Total Time Spent with Patient: Total time spent is greater than 50% in coordination of care (as documented) at patient's floor/unit and/or counseling patient: Coding Level of Care Code 84312 SUB INP/OBS CARE 2/35MIN Diagnoses Acute respiratory failure with hypoxia and hypercapnia J96.01; J96.02 Hypersensitivity pneumonitis J67.9
[2023-08-05] MEDS: PATIROMER CALCIUM SORBITEX 8.4 GM PACK PO SCH (12:30)
[2023-08-05 15:27] LABS: iSTAT Allen Test Pass; iSTAT Art Bld Gas pCO2 Correct 58 mmHg (35-46); iSTAT Art Bld Gas pH Corrected 7.324 (7.35-7.45); iSTAT Arterial Blood Gas HCO3 30 meg/L (19-24); iSTAT Arterial Blood Gas pCO2 58 mmHg (35-46); iSTAT Arterial Blood Gas pH 7.32 (7.35-7.45); iSTAT Arterial Blood Gas pO2 61 mmHg (80-95); iSTAT Arterial Blood Gas pO2 C 60; iSTAT Carbon Dioxide 32 mmol/L (24-31); iSTAT Hematocrit 29 % (37-47); iSTAT Hemoglobin 9.9 g/dl (12.0-16.0); iSTAT Potassium 5.3 mmol/L (3.3-5.0); iSTAT Site L Radial; iSTAT Sodium 129 mmol/L (135-144)
--- NOTE | 2023-08-05 16:34 | Hospitalist Progress Note ---
Date of Service August 05, 2023 Assessment & Plan (1) Acute respiratory failure with hypoxia and hypercapnia: (2) Acute dyspnea: (3) BERRY (obstructive sleep apnea): (4) Acute exacerbation of CHF (congestive heart failure): (5) Paroxysmal atrial fibrillation: (6) Pacemaker: (7) CKD (chronic kidney disease), stage III: (8) Obesity, morbid, BMI 40.0-49.9: (9) Chronic anemia: (10) GERD (gastroesophageal reflux disease): (11) HTN (hypertension): Plan: Patient is a 67 yr female with history of chronic hypersensitive pneumonitis with multiple hospitalization presented with increasing shortness of breath. At baseline she uses 5 L of oxygen at rest. As per her outpatient pulmonology; HP panel was checked which showed sensitivity to several molds. Autoimmune panel are negative. Acute on chronic respiratory failure with hypoxia and hypercarbia Chronic hypersensitivity pneumonitis Exacerbation Pulmonary hypertension BERRY Chronic oxygen dependency--on 5 L of oxygen at baseline - CT chest reviewed personally: Progression of extensive multifocal consolidation and groundglass opacities within the lungs since CT of May 19, 2023. These are nonspecific. Primary considerations include multifocal pneumonia, pulmonary edema and ARDS. Interval development of small right and trace left pleural effusions. Moderate cardiomegaly and coronary artery calcification. Mild dilatation of the central pulmonary arteries which raises the possibility of pulmonary arterial hypertension. -Repeat chest x-ray done on July 27 personally reviewed; slight improvement in the groundglass opacities. --Blood Cx:Negative to date --Biofire:Negative -- Other serological/Immunological tests reviewed -- Sputum for PJP pending (unable to produce sputum) --Serology for Legionella, Histoplasmosis Negative --ECHO: July 01: Mild concentric LVH. EF 60 to 65%. Mild mitral, tricuspid regurgitation, grade 1 diastolic dysfunction. Mild pulmonary hypertension. Patient currently unstable for bronchoscopy. Definitive diagnosis may need i ntubation, patient currently not interested given risks per record. Continue BiPAP at bedtime Continue high flow oxygen--Titrate down to keep sats greater than 88% given hypercarbia on ABG Appreciate pulmonology input Continue Bactrim for suspected PJP--Plan to discontinue as recommended by pulm Continue IV diuresis--decrease to PO lasix 40 mg daily Monitor I's and O's, daily weight, renal function Continue aggressive pulmonary hygiene IV Solu-Medrol decreased to prednisone 40 mg daily Repeat Chest x-ray today suggestive slightly improved multifocal bilateral airspace opacities Titrate down oxygen as able Plan to discharge to LTAC as able Hyperkalemia Received patiromer Low potassium diet Resolved Monitor Constipation Started on bowel regimen Oral thrush Developed on high-dose steroid. Continue Nystatin p.o. 4 times daily. H/O Tachy-lakeisha syndrome: S/P Pacemaker Paroxysmal atrial fibrillation Rhythm controlled on sotalol Not anticoagulated due to history of chronic anemia and bleeding issues Hemolytic anemia: Follows with heme-onc, currently on prednisone 10 mg daily. Prednisone currently on hold as patient is on high-dose steroids. Given 1 unit of packed RBC on July 24, 2023. Hemoglobin around 8-9 Monitor CKD stage III Stable Monitor renal function Mood disorder Continue home medications GERD Continue Protonix DVT Px: Heparin SQ Code Status DNI/DNR Disposition: PT/OT prior to discharge Case management to help with discharge planning Admission and Anticipated Discharge Date Admission Date: July 22, 2023 Subjective Patient is seen and examined at bedside States having some sacral soreness Noted hypercarbia on ABG Offers no other complaints Denies any cough, dyspnea at rest Also denies any cough, chest pain, dizziness, nausea, vomiting Review of Systems Review of Systems: All systems reviewed & are unremarkable except as noted in Subjective Physical Exam Physical Exam: Physical Exam: Vitals signs as noted above General Appearance:Moderately built and nourished, no apparent distress Head: normocephalic, Atraumatic Eyes: normal inspection, EOMI Neck: supple, Trachea midline Respiratory/Chest: Decreased breath sounds, CTA, No accessory muscle use Cardiovascular: S1, S2, No murmur Abdomen/GI:Soft, Non tender, Bowel sounds present Extremities/Musculoskeletal:normal inspection, +1 LE edema Neurologic/Psych:AAOX3, grossly no focal neurological deficits Skin: normal color, warm,+Ecchymosis on UE Results & Data Results & Data Vital Signs (Past 12 Hours) Vital Signs Temp Pulse Pulse Resp BP Pulse Ox O2 Del Method 08/05/23 14:30 60 08/05/23 07:30 60 08/05/23 15:21 36.9 C 65 20 129/64 91 High Flow Nasal Cannula 08/05/23 08:30 BiPAP, High Flow Nasal Cannula 08/05/23 12:45 64 20 93 Nasal Cannula 08/05/23 11:30 91 08/05/23 10:54 63 23 96 High Flow Nasal Cannula 08/05/23 08:08 60 20 94 High Flow Nasal Cannula 08/05/23 08:06 36.6 C 62 22 132/69 93 BiPAP 08/05/23 07:39 63 18 High Flow Nasal Cannula O2 Flow Rate FiO2 08/05/23 14:30 08/05/23 07:30 08/05/23 15:21 8 08/05/23 08:30 08/05/23 12:45 12 08/05/23 11:30 30 08/05/23 10:54 30 60 08/05/23 08:08 30 70 08/05/23 08:06 08/05/23 07:39 30 70 Laboratory Results [facility] 08/05/23 05:29 Sodium 133 L Potassium 4.4 Chloride 94 L Carbon Dioxide 34 H BUN 29 H Creatinine 1.15 Glucose 119 H Calcium 9.3 (10) GERD (gastroesophageal reflux disease) Esophagitis presence: without esophagitis Qualified Code(s): K21.9 - Gastro- esophageal reflux disease without esophagitis (11) HTN (hypertension) Hypertension type: unspecified Qualified Code(s): I10 - Essential (primary) hypertension
[2023-08-05] MEDS: predniSONE 20 MG TAB PO SCH (17:21)
[2023-08-05] MEDS: MONTELUKAST SODIUM 10 MG TABLET PO SCH (20:39)
[2023-08-06] MEDS: HEPARIN SOD 5,000 UNIT/0.5 ML VIAL SQ SCH ×3 (06:21→21:29)
--- NOTE | 2023-08-06 07:48 | Pulmonology Progress Note ---
Date of Service August 06, 2023 Assessment & Plan (1) Acute respiratory failure with hypoxia and hypercapnia: (2) Hypersensitivity pneumonitis: Plan Impression: 67-year-old female with history of hypersensitivity pneumonitis. Unclear how the diagnosis was made or what the offending agent is but she has had recurrent hospitalizations with progressive infiltrates. She is been treated aggressively with antibiotics with no significant improvement and is now both hypoxemic and hypercarbic. She has been empirically treated for PJP as well as HP with high-dose steroids and Bactrim and over the last 24 hours has seen significant improvement in her oxygen requirement. Recommendations: 1. Hypersensitivity pneumonitis: Continue prednisone at 40 mg a day with plans to decrease by 5 mg every week as long as oxygen saturations are preserved. Recommend she follow-up with pulmonary (Dr. Cook) with a repeat chest x-ray or CT scan in 6 to 8 weeks. If she flares, consideration of a steroid sparing agent such as mycophenolate might be a consideration. 2. Hypoxemic and hypercarbic respiratory failure. Given her significant hypercarbia would not try and target oxygen saturations much above 88 to 89%. Continue nightly attempts with noninvasive positive pressure ventilation to try and lower CO2 levels. Her hypoxemia is certainly impacted by her resting CO2 levels in the 80s or 90s. May be able to significantly improve her oxygen requirement if we can get her CO2 levels lowered. Continue nightly CPAP 3. The patient is on high-dose trimethoprim/sulfamethoxazole for presumptive PJP. Her LDH was normal. Given her clinical improvement, it seems reasonable t o complete the course. Would complete Bactrim for 21 days (currently day #9). She is already covered with steroids. At the 21-day nannette if she remains on prednisone above 20 mg a day, would transition to Bactrim 1 double strength tablet every Thursday and Thursday for PJP prophylaxis The patient appears appropriate to discharge to acute rehab or a [facility] facility locally. Outpatient pulmonary follow-up as noted above The above recommendations and plan were extensively discussed with the patient at bedside. Questions were answered to the best my ability. She expressed unde rstanding and is in agreement with the plan as outlined. Pulmonary available to see as needed but the patient again appears on a trajectory to potentially dismiss from the hospital in short order Admission and Anticipated Discharge Date Admission Date: July 22, 2023 Subjective Patient seen and examined. EMR reviewed. The patient is awake alert and conversant. She has been able to be weaned down significantly with regards to her oxygen requirement. She is now down to 8 or 9 L/min via conventional nasal cannula. She feels better. She is not coughing or wheezing. She is not experiencing any chest pain or palpitations. Review of Systems Review of Systems: All systems reviewed & are unremarkable except as noted in Subjective Physical Exam Constitutional: WD/WN, vitals as above Neck: trachea midline, no thyromegaly Respiratory: no respiratory distress, no labored breathing, no cough and not tachypneic Auscultation: + crackles; no wheezes Cardiovascular: RRR, no murmur, no edema Rate/Rhythm: regular rate and regular rhythm Gastrointestinal (Abdomen): normal bowel sounds, soft, nontender, no hepatosplenomegaly Musculoskeletal: no cyanosis or clubbing, extremities motor strength 5/5 Neurologic: patellar DTR's 2+ bilat, sensation intact and PERRL, EOMI, accommodation nl, no face palsy, no dysarthria Psychiatric: A+Ox3, euthymic affect Results & Data Results & Data Vital Signs (Past 12 Hours) Vital Signs Temp Pulse Pulse Resp BP Pulse Ox O2 Del Method 08/06/23 04:26 60 21 93 08/06/23 03:41 36.5 C 65 18 142/67 H 97 BiPAP 08/05/23 23:00 67 08/05/23 23:29 36.6 C 69 18 145/66 H 94 BiPAP 08/05/23 22:10 67 23 90 08/05/23 21:00 BiPAP, High Flow Nasal Cannula O2 Flow Rate FiO2 08/06/23 04:26 45 08/06/23 03:41 08/05/23 23:00 08/05/23 23:29 08/05/23 22:10 50 08/05/23 21:00 8 Laboratory Results 08/04/23 05:34 08/05/23 05:29 Diagnostic Findings No new imaging PG Care Time/CCT Total # of Minutes Spent Total Time Spent with Patient: Total time spent is greater than 50% in coordination of care (as documented) at patient's floor/unit and/or counseling patient: Coding Level of Care Code 53174 SUB INP/OBS CARE 2/35MIN Diagnoses Acute respiratory failure with hypoxia and hypercapnia J96.01; J96.02 Hypersensitivity pneumonitis J67.9
[2023-08-06] MEDS: ALBUT/IPRATROP 3MG/0.5MG NEB 3 ML VIAL NEB SCH ×2 (08:04→19:28)
[2023-08-06 09:27] LABS: BUN Creatinine Ratio 30.6 (10-20); Calcium 9.2 mg/dl (8.6-10.3); Creatinine Clr Calc Pharmacy 66.1 ml/min; Est GFR (African American) 68.2 ml/min; Est GFR (Non-African American) 58.9 ml/min; Potassium 5.2 mmol/L (3.5-5.1)
[2023-08-06] MEDS: LORazepam 0.5 MG TAB PO PRN ×2 (09:52→21:29)
[2023-08-06] MEDS: NYSTATIN SUSP 500,000 U/5 ML UDC PO SCH ×4 (09:52→20:23)
[2023-08-06] MEDS: POLYETHYLENE (MIRALAX) 17 GM PACK PO PRN (09:52)
[2023-08-06] MEDS: SULFAMETHOXAZOLE/TRIMETHOPRIM DS 800/160MG TAB PO SCH ×2 (09:53→20:27)
[2023-08-06] MEDS: CHOLECALCIFEROL 1,000 UNITS 25 MCG TAB PO SCH (09:53)
[2023-08-06] MEDS: FUROSEMIDE 40 MG TAB PO SCH (09:53)
[2023-08-06] MEDS: FOLIC ACID 1 MG TAB PO SCH (09:53)
[2023-08-06] MEDS: amLODIPine BESYLATE 5 MG TAB PO SCH (09:53)
[2023-08-06] MEDS: predniSONE 20 MG TAB PO SCH (09:53)
[2023-08-06] MEDS: LORATADINE 10 MG TAB PO SCH (09:53)
[2023-08-06] MEDS: GABAPENTIN 300 MG CAP PO SCH ×3 (09:54→20:24)
[2023-08-06] MEDS: MAGNESIUM CHLORIDE W/CALCIUM 64MG DELAYED REL TAB PO SCH ×2 (09:54→20:25)
[2023-08-06] MEDS: SERTRALINE HCL 100 MG TABLET PO SCH (09:54)
[2023-08-06] MEDS: guaiFENesin 600 MG TABCR PO SCH ×2 (09:55→20:24)
[2023-08-06] MEDS: SOTALOL HCL 80 MG TAB PO SCH ×2 (09:55→20:26)
[2023-08-06] MEDS: DOCUSATE SODIUM 100 MG CAP PO SCH ×2 (09:55→20:22)
[2023-08-06] MEDS: PANTOprazole 40 MG TAB PO SCH ×2 (09:55→20:26)
[2023-08-06] MEDS: ACETAMINOPHEN 325 MG TAB PO PRN (10:05)
[2023-08-06] MEDS: DOCUSATE SODIUM/SENNA 50/8.6MG TAB PO SCH (10:22)
[2023-08-06] MEDS ORDERED: PATIROMER CALCIUM SORBITEX 8.4 GM PACK PO ONE (11:20)
[2023-08-06] MEDS: PATIROMER CALCIUM SORBITEX 8.4 GM PACK PO SCH (12:15)
--- NOTE | 2023-08-06 14:08 | Hospitalist Progress Note ---
Date of Service August 06, 2023 Assessment & Plan (1) Acute respiratory failure with hypoxia and hypercapnia: (2) Acute dyspnea: (3) BERRY (obstructive sleep apnea): (4) Acute exacerbation of CHF (congestive heart failure): (5) Paroxysmal atrial fibrillation: (6) Pacemaker: (7) CKD (chronic kidney disease), stage III: (8) Obesity, morbid, BMI 40.0-49.9: (9) Chronic anemia: (10) GERD (gastroesophageal reflux disease): (11) HTN (hypertension): Plan: Patient is a 67 yr female with history of chronic hypersensitive pneumonitis with multiple hospitalization presented with increasing shortness of breath. At baseline she uses 5 L of oxygen at rest. As per her outpatient pulmonology; HP panel was checked which showed sensitivity to several molds. Autoimmune panel are negative. Acute on chronic respiratory failure with hypoxia and hypercarbia Chronic hypersensitivity pneumonitis Exacerbation Pulmonary hypertension BERRY Chronic oxygen dependency--on 5 L of oxygen at baseline - CT chest reviewed personally: Progression of extensive multifocal consolidation and groundglass opacities within the lungs since CT of May 19, 2023. These are nonspecific. Primary considerations include multifocal pneumonia, pulmonary edema and ARDS. Interval development of small right and trace left pleural effusions. Moderate cardiomegaly and coronary artery calcification. Mild dilatation of the central pulmonary arteries which raises the possibility of pulmonary arterial hypertension. -Repeat chest x-ray done on July 27 personally reviewed; slight improvement in the groundglass opacities. -Repeat Chest x-ray today suggestive slightly improved multifocal bilateral airspace opacities --Blood Cx:Negative to date --Biofire:Negative -- Other serological/Immunological tests reviewed -- Sputum for PJP pending (unable to produce sputum) --Serology for Legionella, Histoplasmosis Negative --ECHO: July 01: Mild concentric LVH. EF 60 to 65%. Mild mitral, tricuspid regurgitation, grade 1 diastolic dysfunction. Mild pulmonary hypertension. Patient currently unstable for bronchoscopy. Definitive diagnosis may need intubation, patient currently not interested given risks per record. Continue BiPAP/CPAP at bedtime Continue high flow oxygen--Titrate down to keep sats greater than 88% given hypercarbia on ABG Appreciate pulmonology input Continue Bactrim for suspected PJP--Plan to complete the course Continue IV diuresis--decrease to PO lasix 40 mg daily Monitor I's and O's, daily weight, renal function Continue aggressive pulmonary hygiene IV Solu-Medrol decreased to prednisone 40 mg daily>> plan to taper down steroids as recommended by pulmonology Titrate down supplemental oxygen as able Currently saturating well on 8 L supplemental oxygen Will need follow-up with pulmonology upon discharge with repeat CT scan of the chest in 6 to 8 weeks Hyperkalemia Continue patiromer Low potassium diet Monitor Potassium 5.2 today Constipation Started on bowel regimen Encouraged to ambulate Oral thrush Developed on high-dose steroid. Continue Nystatin p.o. 4 times daily. H/O Tachy-lakeisha syndrome: S/P Pacemaker Paroxysmal atrial fibrillation Rhythm controlled on sotalol Not anticoagulated due to history of chronic anemia and bleeding issues Hemolytic anemia: Follows with heme-onc, currently on prednisone 10 mg daily. Prednisone currently on hold as patient is on high-dose steroids. Given 1 unit of packed RBC on July 24, 2023. Hemoglobin around 8-9 Monitor CKD stage III Stable Monitor renal function Mood disorder Continue home medications GERD Continue Protonix DVT Px: Heparin SQ Code Status DNI/DNR Disposition: PT/OT prior to discharge Case management to help with discharge planning SNF as able Admission and Anticipated Discharge Date Admission Date: July 22, 2023 Subjective Patient is seen and examined at bedside States feeling much better today Saturating well on 8 L supplemental oxygen Reports constipation but denies any nausea, vomiting, abdominal pain Also denies any chest pain, dyspnea No other complaints Review of Systems Review of Systems: All systems reviewed & are unremarkable except as noted in Subjective Physical Exam Physical Exam: Physical Exam: Vitals signs as noted above General Appearance:Moderately built and nourished, no apparent distress Head: normocephalic, Atraumatic Eyes: normal inspection, EOMI Neck: supple, Trachea midline Respiratory/Chest: Decreased breath sounds, CTA, No accessory muscle use Cardiovascular: S1, S2, No murmur Abdomen/GI:Soft, Non tender, Bowel sounds present Extremities/Musculoskeletal:normal inspection, +1 LE edema Neurologic/Psych:AAOX3, grossly no focal neurological deficits Skin: normal color, warm,+Ecchymosis on UE Results & Data Results & Data Vital Signs (Past 12 Hours) Vital Signs Temp Pulse Pulse Resp BP BP Pulse Ox 08/06/23 11:51 36.7 C 61 18 114/56 L 92 08/06/23 08:00 08/06/23 08:00 60 08/06/23 08:04 60 18 98 08/06/23 08:02 36.5 C 64 20 134/94 90 08/06/23 04:26 60 21 93 08/06/23 03:41 36.5 C 65 18 142/67 H 97 O2 Del Method O2 Flow Rate FiO2 08/06/23 11:51 Nasal Cannula 8.0 08/06/23 08:00 High Flow Nasal Cannula 8 08/06/23 08:00 08/06/23 08:04 Nasal Cannula 8 08/06/23 08:02 Nasal Cannula 8.0 08/06/23 04:26 45 08/06/23 03:41 BiPAP Laboratory Results BMP 08/06/23 08:35 Sodium 131 L Potassium 5.2 H Chloride 97 L Carbon Dioxide 33 H BUN 30 H Creatinine 0.98 Glucose 125 H Calcium 9.2 (10) GERD (gastroesophageal reflux disease) Esophagitis presence: without esophagitis Qualified Code(s): K21.9 - Gastro- esophageal reflux disease without esophagitis (11) HTN (hypertension) Hypertension type: unspecified Qualified Code(s): I10 - Essential (primary) hypertension
[2023-08-06] MEDS: bisacodyL 10 MG SUPP PR PRN (14:18)
[2023-08-06] MEDS: MONTELUKAST SODIUM 10 MG TABLET PO SCH (20:23)
[2023-08-06] MEDS: SENNA 8.6 MG TAB PO SCH (20:26)
[2023-08-07] MEDS: HEPARIN SOD 5,000 UNIT/0.5 ML VIAL SQ SCH ×3 (06:20→21:01)
[2023-08-07 06:23] LABS: Calcium 9.3 mg/dl (8.6-10.3); Creatinine Clr Calc Pharmacy 58.9 ml/min; Est GFR (African American) 59.3 ml/min; Est GFR (Non-African American) 51.2 ml/min; Magnesium 1.9 mg/dl (1.7-2.4)
[2023-08-07 06:32] LABS: Hematocrit (blood only) 26.2 % (37.0-47.0); Hemoglobin 7.7 g/dl (12.0-16.0); Mean Corpuscular Hemoglobin 26.6 pg (25.0-34.0); Mean Corpuscular Hgb Conc 29.4 g/dL (32.0-36.0); Mean Corpuscular Volume 90.3 fL (80.0-100.0); Mean Platelet Volume 10.5 fL (9.4-12.4); Nucleated RBC # (auto) 0.08 K/uL (0.00-0.12); Nucleated RBC % (auto) 1.7 %; Platelet Count 103 K/uL (130-400); RDW Coefficient of Variation 21.3 % (11.5-14.5); RDW Standard Deviation 70.6 fL (36.4-46.3); White Blood Count 4.82 K/ul (4.8-10.8)
[2023-08-07] MEDS: ALBUT/IPRATROP 3MG/0.5MG NEB 3 ML VIAL NEB SCH ×2 (07:11→19:07)
[2023-08-07] MEDS: SOTALOL HCL 80 MG TAB PO SCH ×2 (08:33→21:01)
[2023-08-07] MEDS: SULFAMETHOXAZOLE/TRIMETHOPRIM DS 800/160MG TAB PO SCH ×2 (08:33→21:01)
[2023-08-07] MEDS: LORazepam 0.5 MG TAB PO PRN ×2 (08:33→21:00)
[2023-08-07] MEDS: guaiFENesin 600 MG TABCR PO SCH ×2 (08:34→21:00)
[2023-08-07] MEDS: DOCUSATE SODIUM 100 MG CAP PO SCH ×2 (08:34→21:01)
[2023-08-07] MEDS: FOLIC ACID 1 MG TAB PO SCH (08:34)
[2023-08-07] MEDS: amLODIPine BESYLATE 5 MG TAB PO SCH (08:34)
[2023-08-07] MEDS: GABAPENTIN 300 MG CAP PO SCH ×3 (08:34→21:01)
[2023-08-07] MEDS: predniSONE 20 MG TAB PO SCH (08:34)
[2023-08-07] MEDS: PANTOprazole 40 MG TAB PO SCH ×2 (08:34→21:01)
[2023-08-07] MEDS: MAGNESIUM CHLORIDE W/CALCIUM 64MG DELAYED REL TAB PO SCH ×2 (08:34→21:00)
[2023-08-07] MEDS: LORATADINE 10 MG TAB PO SCH (08:34)
[2023-08-07] MEDS: SERTRALINE HCL 100 MG TABLET PO SCH (08:34)
[2023-08-07] MEDS: CHOLECALCIFEROL 1,000 UNITS 25 MCG TAB PO SCH (08:35)
[2023-08-07] MEDS: NYSTATIN SUSP 500,000 U/5 ML UDC PO SCH (08:35)
[2023-08-07] MEDS: FUROSEMIDE 40 MG TAB PO SCH (08:35)
[2023-08-07] MEDS ORDERED: Nursing to Pharmacy Communication SCH (12:30)
[2023-08-07] MEDS ORDERED: PATIROMER CALCIUM SORBITEX 8.4 GM PACK PO SCH (14:00)
[2023-08-07] MEDS: PATIROMER CALCIUM SORBITEX 8.4 GM PACK PO SCH (14:27)
--- NOTE | 2023-08-07 15:56 | Hospitalist Progress Note ---
Date of Service August 07, 2023 Assessment & Plan (1) Acute respiratory failure with hypoxia and hypercapnia: (2) Acute dyspnea: (3) BERRY (obstructive sleep apnea): (4) Acute exacerbation of CHF (congestive heart failure): (5) Paroxysmal atrial fibrillation: (6) Pacemaker: (7) CKD (chronic kidney disease), stage III: (8) Obesity, morbid, BMI 40.0-49.9: (9) Chronic anemia: (10) GERD (gastroesophageal reflux disease): (11) HTN (hypertension): Plan: Patient is a 67 yr female with history of chronic hypersensitive pneumonitis with multiple hospitalization presented with increasing shortness of breath. At baseline she uses 5 L of oxygen at rest. As per her outpatient pulmonology; HP panel was checked which showed sensitivity to several molds. Autoimmune panel are negative. Acute on chronic respiratory failure with hypoxia and hypercarbia Chronic hypersensitivity pneumonitis Exacerbation Pulmonary hypertension BERRY Chronic oxygen dependency--on 5 L of oxygen at baseline - CT chest reviewed personally: Progression of extensive multifocal consolidation and groundglass opacities within the lungs since CT of May 19, 2023. These are nonspecific. Primary considerations include multifocal pneumonia, pulmonary edema and ARDS. Interval development of small right and trace left pleural effusions. Moderate cardiomegaly and coronary artery calcification. Mild dilatation of the central pulmonary arteries which raises the possibility of pulmonary arterial hypertension. -Repeat chest x-ray shows improvement --Blood Cx:Negative to date --Biofire:Negative -- Other serological/Immunological tests reviewed -- Sputum for PJP pending (unable to produce sputum) --Serology for Legionella, Histoplasmosis Negative --ECHO: July 01: Mild concentric LVH. EF 60 to 65%. Mild mitral, tricuspid regurgitation, grade 1 diastolic dysfunction. Mild pulmonary hypertension. Patient currently unstable for bronchoscopy. Definitive diagnosis may need intubation, patient currently not interested given risks per record. Continue BiPAP/CPAP at bedtime Status post high flow oxygen and now down to 8 L of oxygen via nasal cannula. Continue to wean down as tolerated. Appreciate pulmonology input Continue Bactrim for suspected PJP--Plan to complete 21-day Bactrim course currently D#08/29 per pulmonology. At the 21-day nannette if she remains on prednisone above 20 mg a day, would transition to Bactrim 1 double strength tablet every Thursday and Thursday for PJP prophylaxis IV Solu-Medrol switched to prednisone 40 mg daily>> plan to taper down steroids as recommended by pulmonology (decrease prednisone by 5 mg every week as long as oxygen saturations are preserved. Recommend she follow-up with pulmonary (Dr. Cook) with a repeat chest x-ray or CT scan in 6 to 8 weeks. If she flares, consideration of a steroid sparing agent such as mycophenolate might be a consideration). S/p IV Lasix- now on PO lasix 40 mg daily. Monitor I's and O's, daily weight, renal function Will need follow-up with pulmonology upon discharge with repeat CT scan of the chest in 6 to 8 weeks Hyperkalemia-resolved, Continue patiromer, Low potassium diet. Recheck in a.m. Constipation-resolved with suppository. Continue bowel regimen Oral thrush- Developed on high-dose steroid. Continue Nystatin p.o. 4 times daily. H/O Tachy-lakeisha syndrome S/P Pacemaker Paroxysmal atrial fibrillation - Rhythm controlled on sotalol - Not anticoagulated due to history of chronic anemia and bleeding issues Hemolytic anemia: - Follows with heme-onc, on maintenance dose of prednisone 10 mg daily. Currently on steroid taper as above. -Status post 1 unit of PRBC. Monitor H&H. Recheck in AM. CKD stage III-creatinine stable. Monitor renal function Mood disorder-stable, continue home medications GERD- Continue Protonix DVT Px: Heparin SQ Code Status - DNI/DNR Disposition: Patient is stable to transfer to rehab. Anticipated tomorrow. CM following Admission and Anticipated Discharge Date Admission Date: July 22, 2023 Subjective Patient was seen and examined at bedside. Sitting in chair, on 8 L of oxygen by nasal cannula. Feels fine. Denies any chest pain, shortness of breath, nausea, vomiting, abdominal pain. Normal appetite. Had a bowel movement yesterday after suppository. She is looking forward to going to rehab tomorrow. Review of Systems Review of Systems: All systems reviewed & are unremarkable except as noted in Subjective Physical Exam Physical Exam: General: Sitting comfortably in chair,, not in distress, on 8 L of oxygen by nasal cannula HEENT: EOMI, FAY, MMM Chest: Decreased breath sounds, clear to auscultation, no accessory muscle use CVS: Regular rate and rhythm, normal heart sounds, no murmur Abdomen: Soft, non tender, not distended, normal bowel sounds Neuro: Awake, alert, oriented, conversing well, non focal Extremities: No cyanosis, clubbing. 1+ lower extremity Results & Data Results & Data Vital Signs (Past 12 Hours) Vital Signs Temp Pulse Pulse Resp BP BP Pulse Ox 08/07/23 11:56 36.9 C 65 19 114/79 92 08/07/23 09:00 65 08/07/23 09:51 60 08/07/23 09:00 08/07/23 07:59 36.8 C 64 18 116/66 89 L 08/07/23 07:11 60 18 93 08/07/23 04:40 36.5 C 60 16 128/73 96 O2 Del Method O2 Flow Rate 08/07/23 11:56 Nasal Cannula 9.0 08/07/23 09:00 08/07/23 09:51 08/07/23 09:00 Oxymask 08/07/23 07:59 Nasal Cannula 8.0 08/07/23 07:11 Nasal Cannula 8 08/07/23 04:40 BiPAP (10) GERD (gastroesophageal reflux disease) Esophagitis presence: without esophagitis Qualified Code(s): K21.9 - Gastro- esophageal reflux disease without esophagitis (11) HTN (hypertension) Hypertension type: unspecified Qualified Code(s): I10 - Essential (primary) hypertension
[2023-08-07] MEDS: SENNA 8.6 MG TAB PO SCH (21:00)
[2023-08-07] MEDS: MONTELUKAST SODIUM 10 MG TABLET PO SCH (21:01)
[2023-08-08] MEDS: HEPARIN SOD 5,000 UNIT/0.5 ML VIAL SQ SCH ×3 (05:52→20:58)
[2023-08-08 06:29] LABS: Hematocrit (blood only) 26.6 % (37.0-47.0); Hemoglobin 7.8 g/dl (12.0-16.0); Mean Corpuscular Hemoglobin 26.6 pg (25.0-34.0); Mean Corpuscular Hgb Conc 29.3 g/dL (32.0-36.0); Mean Corpuscular Volume 90.8 fL (80.0-100.0); Mean Platelet Volume 10.5 fL (9.4-12.4); Nucleated RBC # (auto) 0.06 K/uL (0.00-0.12); Nucleated RBC % (auto) 1.4 %; Platelet Count 104 K/uL (130-400); RDW Coefficient of Variation 21.7 % (11.5-14.5); Red Blood Count 2.93 M/uL (4.20-5.40); White Blood Count 4.25 K/ul (4.8-10.8)
[2023-08-08 06:42] LABS: BUN Creatinine Ratio 28.1 (10-20); Calcium 9.3 mg/dl (8.6-10.3); Creatinine Clr Calc Pharmacy 53.6 ml/min; Est GFR (African American) 52.9 ml/min; Est GFR (Non-African American) 45.6 ml/min; Potassium 4.6 mmol/L (3.5-5.1)
[2023-08-08] MEDS: ALBUT/IPRATROP 3MG/0.5MG NEB 3 ML VIAL NEB SCH ×2 (08:10→19:01)
[2023-08-08] MEDS: guaiFENesin 600 MG TABCR PO SCH ×2 (08:21→20:58)
[2023-08-08] MEDS: SULFAMETHOXAZOLE/TRIMETHOPRIM DS 800/160MG TAB PO SCH ×2 (08:21→20:58)
[2023-08-08] MEDS: SOTALOL HCL 80 MG TAB PO SCH ×2 (08:22→20:57)
[2023-08-08] MEDS: GABAPENTIN 300 MG CAP PO SCH ×3 (08:22→20:58)
[2023-08-08] MEDS: DOCUSATE SODIUM 100 MG CAP PO SCH ×2 (08:22→20:57)
[2023-08-08] MEDS: SERTRALINE HCL 100 MG TABLET PO SCH (08:22)
[2023-08-08] MEDS: MAGNESIUM CHLORIDE W/CALCIUM 64MG DELAYED REL TAB PO SCH ×2 (08:22→20:57)
[2023-08-08] MEDS: PANTOprazole 40 MG TAB PO SCH ×2 (08:22→20:58)
[2023-08-08] MEDS: amLODIPine BESYLATE 5 MG TAB PO SCH (08:22)
[2023-08-08] MEDS: CHOLECALCIFEROL 1,000 UNITS 25 MCG TAB PO SCH (08:23)
[2023-08-08] MEDS: predniSONE 20 MG TAB PO SCH (08:23)
[2023-08-08] MEDS: FOLIC ACID 1 MG TAB PO SCH (08:23)
[2023-08-08] MEDS: LORATADINE 10 MG TAB PO SCH (08:23)
[2023-08-08] MEDS: FUROSEMIDE 40 MG TAB PO SCH (08:23)
[2023-08-08] MEDS: LORazepam 0.5 MG TAB PO PRN ×2 (08:33→20:58)
[2023-08-08] MEDS: ACETAMINOPHEN 325 MG TAB PO PRN (10:18)
[2023-08-08] MEDS: POLYETHYLENE (MIRALAX) 17 GM PACK PO PRN (10:19)
--- NOTE | 2023-08-08 13:33 | Hospitalist Progress Note ---
Date of Service August 08, 2023 Assessment & Plan (1) Acute respiratory failure with hypoxia and hypercapnia: (2) Acute exacerbation of CHF (congestive heart failure): (3) BERRY (obstructive sleep apnea): (4) Paroxysmal atrial fibrillation: (5) CKD (chronic kidney disease), stage III: (6) Obesity, morbid, BMI 40.0-49.9: (7) Chronic anemia: (8) GERD (gastroesophageal reflux disease): (9) HTN (hypertension): Plan: Patient is a 67 yr female with history of chronic hypersensitive pneumonitis with multiple hospitalization presented with increasing shortness of breath. At baseline she uses 5 L of oxygen at rest. As per her outpatient pulmonology; HP panel was checked which showed sensitivity to several molds. Autoimmune panel are negative. Acute on chronic respiratory failure with hypoxia and hypercarbia Chronic hypersensitivity pneumonitis with exacerbation Possible PJP pneumonia Pulmonary hypertension BERRY Chronic oxygen dependency--on 5 L of oxygen at baseline -- CT chest: Progression of extensive multifocal consolidation and groundglass opacities within the lungs since CT of May 19, 2023. These are nonspecific. Primary considerations include multifocal pneumonia, pulmonary edema and ARDS. Interval development of small right and trace left pleural effusions. Moderate cardiomegaly and coronary artery calcification. Mild dilatation of the central pulmonary arteries which raises the possibility of pulmonary arterial h ypertension. -- Repeat chest x-ray shows improvement --ECHO: July 01: Mild concentric LVH. EF 60 to 65%. Mild mitral, tricuspid regurgitation, grade 1 diastolic dysfunction. Mild pulmonary hypertension --Blood Cx:Negative to date -- Respiratory Biofire:Negative --Serology for Legionella, Histoplasmosis negative -- Unable to produce sputum for PJP testing and her tenuous respiratory status w ould not allow for bronchoscopy, hence started on empiric treatment for PJP infection with improvement Status post high flow oxygen and now down to 8 L of oxygen via nasal cannula. Continue to wean down as tolerated. Appreciate pulmonology input Continue Bactrim for suspected PJP--Plan to complete 21-day Bactrim course currently D#09/29 per pulmonology. At the 21-day nannette if she remains on prednisone above 20 mg a day, would transition to Bactrim 1 double strength tablet every Thursday and Thursday for PJP prophylaxis IV Solu-Medrol switched to prednisone 40 mg daily>> plan to taper down steroids as recommended by pulmonology (decrease prednisone by 5 mg every week as long as oxygen saturations are preserved. Recommend she follow-up with pulmonary (Dr. Cook) with a repeat chest x-ray or CT scan in 6 to 8 weeks. If she flares, consideration of a steroid sparing agent such as mycophenolate might be a consideration). S/p IV Lasix- now on PO lasix 40 mg daily. Monitor I's and O's, daily weight, renal function Continue BiPAP/CPAP at bedtime Will need follow-up with pulmonology upon discharge with repeat CT scan of the chest in 6 to 8 weeks Hyperkalemia-resolved, status post patiromer-we will hold for now and monitor. Continue low potassium diet. Recheck BMP in a.m. Constipation-resolved with suppository. Continue bowel regimen Oral thrush- Developed on high-dose steroid. Continue Nystatin p.o. 4 times daily. H/O Tachy-lakeisha syndrome S/P Pacemaker Paroxysmal atrial fibrillation - Rhythm controlled on sotalol - Not anticoagulated due to history of chronic anemia and bleeding issues Hemolytic anemia: - Follows with heme-onc, on maintenance dose of prednisone 10 mg daily. Curr ently on steroid taper as above. -Status post 1 unit of PRBC. H&H stable around 8. Recheck in AM. CKD stage III-creatinine stable. Monitor renal function Mood disorder-stable, continue home medications GERD- Continue Protonix DVT Px: Heparin SQ Code Status - DNI/DNR Disposition: Patient is stable to transfer to rehab pending insurance authorization, likely on Thursday. Admission and Anticipated Discharge Date Admission Date: July 22, 2023 Subjective Patient was seen and examined at bedside. Denies any new issues. Feels breathing is fine. No fever, chills, chest pain, shortness of breath, nausea or vomiting. She feels ready to go to rehab. Review of Systems Review of Systems: All systems reviewed & are unremarkable except as noted in Subjective Physical Exam Physical Exam: General: Lying comfortably in bed, not in distress, on 8 L of oxygen by nasal cannula HEENT: EOMI, FAY, MMM Chest: Decreased breath sounds, clear to auscultation, no accessory muscle use CVS: Regular rate and rhythm, normal heart sounds, no murmur Abdomen: Soft, non tender, not distended, normal bowel sounds Neuro: Awake, alert, oriented, conversing well, non focal Extremities: No cyanosis, clubbing. 1+ lower extremity Results & Data Results & Data Vital Signs (Past 12 Hours) Vital Signs Temp Pulse Pulse Resp BP Pulse Ox O2 Del Method 08/08/23 12:12 36.7 C 60 15 116/58 L 94 Nasal Cannula 08/08/23 09:00 Nasal Cannula 08/08/23 08:10 62 18 96 Nasal Cannula 08/08/23 07:57 36.7 C 77 17 133/54 L 95 Nasal Cannula 08/08/23 07:16 60 08/08/23 02:52 36.3 C L 60 18 123/65 94 Nasal Cannula 08/08/23 02:31 61 22 96 O2 Flow Rate FiO2 08/08/23 12:12 8 08/08/23 09:00 8 08/08/23 08:10 9 08/08/23 07:57 10 08/08/23 07:16 08/08/23 02:52 10 08/08/23 02:31 45 Laboratory Results Short CBC 08/08/23 Range/Units 05:43 WBC 4.25 L (4.8-10.8) K/ul Hgb 7.8 L (12.0-16.0) g/dl Hct 26.6 L (37.0-47.0) % Plt Count 104 L (130-400) K/uL BMP 08/08/23 05:43 Sodium 134 L Potassium 4.6 Chloride 95 L Carbon Dioxide 34 H BUN 34 H Creatinine 1.21 H Glucose 83 Calcium 9.3 Medications Administered Current Inpatient Medications Acetaminophen (Acetaminophen 325 Mg Tab) 650 mg PO Q4H PRN PRN Reason: Moderate Pain (Scale 4, 5, 6) Stop: 08/21/23 18:25 Last Admin: 08/08/23 10:18 Dose: 650 mg Albuterol (Albut/Ipratrop 3mg/0.5mg Neb 3 Ml Vial) 3 ml NEB QIDR PRN; Protocol PRN Reason: shortness of breath Stop: 08/21/23 18:25 Last Admin: 07/22/23 19:07 Dose: 3 ml Albuterol (Albut/Ipratrop 3mg/0.5mg Neb 3 Ml Vial) 3 ml NEB BIDR ADINA; Protocol Stop: 08/31/23 18:59 Last Admin: 08/08/23 08:10 Dose: 3 ml Amlodipine Besylate (Amlodipine Besylate 5 Mg Tab) 5 mg PO QAM [facility] Stop: 08/22/23 08:59 Last Admin: 08/08/23 08:22 Dose: 5 mg Bisacodyl (Bisacodyl 10 Mg Supp) 10 mg OR DAILY PRN PRN Reason: Constipation Stop: 09/05/23 09:41 Last Admin: 08/06/23 14:18 Dose: 10 mg Docusate Sodium (Docusate Sodium 100 Mg Cap) 100 mg PO BID [facility] Stop: 08/21/23 20:59 Last Admin: 08/08/23 08:22 Dose: 100 mg Folic Acid (Folic Acid 1 Mg Tab) [facility] Stop: 08/22/23 08:59 Last Admin: 08/08/23 08:23 Dose: 1 mg Fosfomycin Tromethamine (Fosfomycin Tromethamine 3 Gm Packet) 3 gm PO Tavarez@0900 [facility] Stop: 09/01/23 08:59 Last Admin: 08/02/23 09:16 Dose: 3 gm Furosemide (Furosemide 40 Mg Tab) 40 mg PO QAM [facility] Stop: 08/31/23 08:59 Last Admin: 08/08/23 08:23 Dose: 40 mg Gabapentin (Gabapentin 300 Mg Cap) 300 mg PO TID [facility] Stop: 08/21/23 20:59 Last Admin: 08/08/23 08:22 Dose: 300 mg Guaifenesin (Guaifenesin 600 Mg Tabcr) 1,200 mg PO Q12 [facility] Stop: 08/21/23 20:59 Last Admin: 08/08/23 08:21 Dose: 1,200 mg Heparin Sodium (Porcine) (Heparin Sod 5,000 Unit/0.5 Ml Vial) 5,000 units SQ Q8 [facility] Stop: 08/22/23 13:59 Last Admin: 08/08/23 05:52 Dose: 5,000 units Hydroxyzine HCl (Hydroxyzine Hcl 25 Mg Tab) 25 mg PO HS PRN PRN Reason: Itching Stop: 08/21/23 18:25 Loratadine (Loratadine 10 Mg Tab) 10 mg PO QAM [facility] Stop: 08/21/23 18:25 Last Admin: 08/08/23 08:23 Dose: 10 mg Lorazepam (Lorazepam 0.5 Mg Tab) 0.5 mg PO Q8H PRN PRN Reason: Anxiety Stop: 08/21/23 18:25 Last Admin: 08/08/23 08:33 Dose: 0.5 mg Magnesium Chloride (Magnesium Chloride W/Calcium 64mg Delayed Rel Tab) 64 mg PO BID ADINA Stop: 08/21/23 20:59 Last Admin: 08/08/23 08:22 Dose: 64 mg Montelukast Sodium (Montelukast Sodium 10 Mg Tablet) 10 mg PO HS ADINA Stop: 08/21/23 20:59 Last Admin: 08/07/23 21:01 Dose: 10 mg Ondansetron HCl (Ondansetron Inj 2 Mg/Ml 2 Ml Vial) 4 mg IV Q4H PRN PRN Reason: Nausea And Vomiting Stop: 08/21/23 18:25 Last Admin: 07/31/23 03:58 Dose: 4 mg Pantoprazole Sodium (Pantoprazole 40 Mg Tab) 40 mg PO BID ADINA Stop: 08/21/23 20:59 Last Admin: 08/08/23 08:22 Dose: 40 mg Patiromer (Patiromer Calcium Sorbitex 8.4 Gm Pack) 8.4 gm PO DAILY@1400 [facility] Stop: 09/06/23 13:59 Last Admin: 08/07/23 14:35 Dose: 8.4 gm Polyethylene Glycol (Polyethylene (Miralax) 17 Gm Pack) 17 gm PO DAILY PRN PRN Reason: Constipation Stop: 09/03/23 13:37 Last Admin: 08/08/23 10:19 Dose: 17 gm Prednisone (Prednisone 20 Mg Tab) 40 mg PO DAILY ADINA Stop: 09/04/23 17:59 Last Admin: 08/08/23 08:23 Dose: 40 mg Sennosides (Senna 8.6 Mg Tab) 17.2 mg PO HS ADINA Stop: 09/05/23 20:59 Last Admin: 08/07/23 21:00 Dose: 17.2 mg Sertraline HCl (Sertraline Hcl 100 Mg Tablet) 100 mg PO QAM ADINA Stop: 08/22/23 08:59 Last Admin: 08/08/23 08:22 Dose: 100 mg Sotalol HCl (Sotalol Hcl 80 Mg Tab) 80 mg PO BID ADINA Stop: 08/21/23 20:59 Last Admin: 08/08/23 08:22 Dose: 80 mg Trimethoprim/Sulfamethoxazole (Sulfamethoxazole/Trimethoprim Ds 800/160mg Tab) 3 tab PO Q12 ADINA Stop: 08/20/23 20:59 Last Admin: 08/08/23 08:21 Dose: 3 tab Vitamin D (Cholecalciferol 1,000 Units 25 Mcg Tab) 2,000 units PO QAM ADINA Stop: 08/22/23 08:59 Last Admin: 08/08/23 08:23 Dose: 2,000 units (8) GERD (gastroesophageal reflux disease) Esophagitis presence: without esophagitis Qualified Code(s): K21.9 - Gastro- esophageal reflux disease without esophagitis (9) HTN (hypertension) Hypertension type: unspecified Qualified Code(s): I10 - Essential (primary) hypertension
[2023-08-08] MEDS: bisacodyL 10 MG SUPP PR PRN (13:59)
[2023-08-08] MEDS: MONTELUKAST SODIUM 10 MG TABLET PO SCH (20:57)
[2023-08-08] MEDS: SENNA 8.6 MG TAB PO SCH (20:57)
[2023-08-09] MEDS: HEPARIN SOD 5,000 UNIT/0.5 ML VIAL SQ SCH ×3 (05:12→20:38)
[2023-08-09] MEDS: ALBUT/IPRATROP 3MG/0.5MG NEB 3 ML VIAL NEB SCH ×2 (06:55→19:42)
[2023-08-09 07:35] LABS: Hemoglobin 7.8 g/dl (12.0-16.0)
[2023-08-09 07:47] LABS: BUN Creatinine Ratio 29.1 (10-20); Calcium 9.3 mg/dl (8.6-10.3); Creatinine Clr Calc Pharmacy 58.9 ml/min; Est GFR (African American) 59.3 ml/min; Est GFR (Non-African American) 51.2 ml/min; Potassium 4.7 mmol/L (3.5-5.1)
[2023-08-09] MEDS: SOTALOL HCL 80 MG TAB PO SCH ×2 (08:39→20:38)
[2023-08-09] MEDS: SULFAMETHOXAZOLE/TRIMETHOPRIM DS 800/160MG TAB PO SCH ×2 (08:39→20:38)
[2023-08-09] MEDS: guaiFENesin 600 MG TABCR PO SCH ×2 (08:39→20:38)
[2023-08-09] MEDS: predniSONE 20 MG TAB PO SCH (08:40)
[2023-08-09] MEDS: DOCUSATE SODIUM 100 MG CAP PO SCH ×2 (08:40→20:38)
[2023-08-09] MEDS: GABAPENTIN 300 MG CAP PO SCH ×3 (08:40→20:38)
[2023-08-09] MEDS: FOLIC ACID 1 MG TAB PO SCH (08:40)
[2023-08-09] MEDS: MAGNESIUM CHLORIDE W/CALCIUM 64MG DELAYED REL TAB PO SCH ×2 (08:40→20:38)
[2023-08-09] MEDS: LORATADINE 10 MG TAB PO SCH (08:40)
[2023-08-09] MEDS: amLODIPine BESYLATE 5 MG TAB PO SCH (08:40)
[2023-08-09] MEDS: SERTRALINE HCL 100 MG TABLET PO SCH (08:40)
[2023-08-09] MEDS: PANTOprazole 40 MG TAB PO SCH ×2 (08:40→20:38)
[2023-08-09] MEDS: CHOLECALCIFEROL 1,000 UNITS 25 MCG TAB PO SCH (08:40)
[2023-08-09] MEDS: FUROSEMIDE 40 MG TAB PO SCH (08:41)
[2023-08-09] MEDS: FOSFOMYCIN TROMETHAMINE 3 GM PACKET PO SCH (08:41)
--- NOTE | 2023-08-09 10:17 | Hospitalist Progress Note ---
Date of Service August 09, 2023 Assessment & Plan (1) Acute respiratory failure with hypoxia and hypercapnia: (2) Acute exacerbation of CHF (congestive heart failure): (3) BERRY (obstructive sleep apnea): (4) Paroxysmal atrial fibrillation: (5) CKD (chronic kidney disease), stage III: (6) Obesity, morbid, BMI 40.0-49.9: (7) Chronic anemia: (8) GERD (gastroesophageal reflux disease): (9) HTN (hypertension): Plan: Patient is a 67 yr female with history of chronic hypersensitive pneumonitis with multiple hospitalization presented with increasing shortness of breath. At baseline she uses 5 L of oxygen at rest. As per her outpatient pulmonology; HP panel was checked which showed sensitivity to several molds. Autoimmune panel are negative. Acute on chronic respiratory failure with hypoxia and hypercarbia Chronic hypersensitivity pneumonitis with exacerbation Possible PJP pneumonia Pulmonary hypertension BERRY Chronic oxygen dependency--on 5 L of oxygen at baseline -- CT chest: Progression of extensive multifocal consolidation and groundglass opacities within the lungs since CT of May 19, 2023. These are nonspecific. Primary considerations include multifocal pneumonia, pulmonary edema and ARDS. Interval development of small right and trace left pleural effusions. Moderate cardiomegaly and coronary artery calcification. Mild dilatation of the central pulmonary arteries which raises the possibility of pulmonary arterial hype rtension. -- Repeat chest x-ray shows improvement --ECHO: July 01: Mild concentric LVH. EF 60 to 65%. Mild mitral, tricuspid regurgitation, grade 1 diastolic dysfunction. Mild pulmonary hypertension --Blood Cx:Negative to date -- Respiratory Biofire:Negative --Serology for Legionella, Histoplasmosis negative -- Unable to produce sputum for PJP testing and her tenuous respiratory status would not allow for bronchoscopy, hence started on empiric treatment for PJP infection with improvement Status post high flow oxygen and now down to 8 L of oxygen via nasal cannula. Continue to wean down as tolerated. Appreciate pulmonology input Continue Bactrim for suspected PJP--Plan to complete 21-day Bactrim course currently D#12 per pulmonology. At the 21-day nannette if she remains on prednisone above 20 mg a day, would transition to Bactrim 1 double strength tablet every Thursday and Thursday for PJP prophylaxis IV Solu-Medrol switched to prednisone 40 mg daily>> plan to taper down steroids as recommended by pulmonology (decrease prednisone by 5 mg every week as long as oxygen saturations are preserved. Recommend she follow-up with pulmonary (Dr. Cook) with a repeat chest x-ray or CT scan in 6 to 8 weeks. If she flares, consideration of a steroid sparing agent such as mycophenolate might be a consideration). S/p IV Lasix- now on PO lasix 40 mg daily. Monitor I's and O's, daily weight, renal function Continue BiPAP/CPAP at bedtime Will need follow-up with pulmonology upon discharge with repeat CT scan of the chest in 6 to 8 weeks Hyperkalemia-resolved, status post patiromer-we will hold for now and monitor. Continue low potassium diet. Recheck BMP in a.m. Constipation-resolved with suppository. Continue bowel regimen Oral thrush- Developed on high-dose steroid. Continue Nystatin p.o. 4 times daily. H/O Tachy-lakeisha syndrome S/P Pacemaker Paroxysmal atrial fibrillation - Rhythm controlled on sotalol - Not anticoagulated due to history of chronic anemia and bleeding issues Hemolytic anemia: - Follows with heme-onc, on maintenance dose of prednisone 10 mg daily. Current ly on steroid taper as above. -Status post 1 unit of PRBC. H&H stable around 8. Recheck in AM. CKD stage III-creatinine stable. Monitor renal function Mood disorder-stable, continue home medications GERD- Continue Protonix DVT Px: Heparin SQ Code Status - DNI/DNR Disposition: Patient is stable to transfer to rehab pending insurance authorization, likely on Thursday. Admission and Anticipated Discharge Date Admission Date: July 22, 2023 Subjective Patient was seen and examined at bedside. States she feels good today. No new issues. Still on 8 L of supplemental oxygen but denies any shortness of breath. No chest pain or shortness of breath, nausea vomiting. She finally was able to have a bowel movement yesterday after multiple laxatives. Review of Systems Review of Systems: All systems reviewed & are unremarkable except as noted in Subjective Physical Exam Physical Exam: General: Lying comfortably in bed, not in distress, on 8 L of oxygen by nasal cannula HEENT: EOMI, FAY, MMM Chest: Decreased breath sounds, clear to auscultation, no accessory muscle use CVS: Regular rate and rhythm, normal heart sounds, no murmur Abdomen: Soft, non tender, not distended, normal bowel sounds Neuro: Awake, alert, oriented, conversing well, non focal Extremities: No cyanosis, clubbing. 1+ lower extremity Results & Data Results & Data Vital Signs (Past 12 Hours) Vital Signs Temp Pulse Pulse Resp BP Pulse Ox O2 Del Method 08/09/23 09:00 Nasal Cannula 08/09/23 07:55 36.9 C 60 17 111/49 L 92 Nasal Cannula 08/09/23 07:44 60 08/09/23 06:55 60 18 94 Nasal Cannula 08/09/23 03:00 36.3 C L 60 18 127/53 L 95 BiPAP 08/09/23 02:03 21 91 08/08/23 23:19 63 08/08/23 23:07 66 22 92 O2 Flow Rate FiO2 08/09/23 09:00 8 08/09/23 07:55 8 08/09/23 07:44 08/09/23 06:55 9 08/09/23 03:00 08/09/23 02:03 45 08/08/23 23:19 08/08/23 23:07 45 Laboratory Results Short CBC 08/09/23 Range/Units 06:37 Hgb 7.8 L (12.0-16.0) g/dl Hct 26.0 L (37.0-47.0) % BMP 08/09/23 06:37 Sodium 134 L Potassium 4.7 Chloride 95 L Carbon Dioxide 34 H BUN 32 H Creatinine 1.10 Glucose 83 Calcium 9.3 Medications Administered Current Inpatient Medications Acetaminophen (Acetaminophen 325 Mg Tab) 650 mg PO Q4H PRN PRN Reason: Moderate Pain (Scale 4, 5, 6) Stop: 08/21/23 18:25 Last Admin: 08/08/23 10:18 Dose: 650 mg Albuterol (Albut/Ipratrop 3mg/0.5mg Neb 3 Ml Vial) 3 ml NEB QIDR PRN; Protocol PRN Reason: shortness of breath Stop: 08/21/23 18:25 Last Admin: 07/22/23 19:07 Dose: 3 ml Albuterol (Albut/Ipratrop 3mg/0.5mg Neb 3 Ml Vial) 3 ml NEB BIDR ADINA; Protocol Stop: 08/31/23 18:59 Last Admin: 08/09/23 06:55 Dose: 3 ml Amlodipine Besylate (Amlodipine Besylate 5 Mg Tab) 5 mg PO QAM [facility] Stop: 08/22/23 08:59 Last Admin: 08/09/23 08:40 Dose: 5 mg Bisacodyl (Bisacodyl 10 Mg Supp) 10 mg RI DAILY PRN PRN Reason: Constipation Stop: 09/05/23 09:41 Last Admin: 08/08/23 13:59 Dose: 10 mg Docusate Sodium (Docusate Sodium 100 Mg Cap) 100 mg PO BID [facility] Stop: 08/21/23 20:59 Last Admin: 08/09/23 08:40 Dose: 100 mg Folic Acid (Folic Acid 1 Mg Tab) 1 mg PO QAM [facility] Stop: 08/22/23 08:59 Last Admin: 08/09/23 08:40 Dose: 1 mg Fosfomycin Tromethamine (Fosfomycin Tromethamine 3 Gm Packet) 3 gm PO Tavarez@0900 [facility] Stop: 09/01/23 08:59 Last Admin: 08/09/23 08:41 Dose: 3 gm Furosemide (Furosemide 40 Mg Tab) 40 mg PO QAM [facility] Stop: 08/31/23 08:59 Last Admin: 08/09/23 08:41 Dose: 40 mg Gabapentin (Gabapentin 300 Mg Cap) 300 mg PO TID [facility] Stop: 08/21/23 20:59 Last Admin: 08/09/23 08:40 Dose: 300 mg Guaifenesin (Guaifenesin 600 Mg Tabcr) 1,200 mg PO Q12 [facility] Stop: 08/21/23 20:59 Last Admin: 08/09/23 08:39 Dose: 1,200 mg Heparin Sodium (Porcine) (Heparin Sod 5,000 Unit/0.5 Ml Vial) 5,000 units SQ Q8 [facility] Stop: 08/22/23 13:59 Last Admin: 08/09/23 05:12 Dose: 5,000 units Hydroxyzine HCl (Hydroxyzine Hcl 25 Mg Tab) 25 mg PO HS PRN PRN Reason: Itching Stop: 08/21/23 18:25 Loratadine (Loratadine 10 Mg Tab) 10 mg PO QAM [facility] Stop: 08/21/23 18:25 Last Admin: 08/09/23 08:40 Dose: 10 mg Lorazepam (Lorazepam 0.5 Mg Tab) 0.5 mg PO Q8H PRN PRN Reason: Anxiety Stop: 08/21/23 18:25 Last Admin: 08/08/23 20:58 Dose: 0.5 mg Magnesium Chloride (Magnesium Chloride W/Calcium 64mg Delayed Rel Tab) 64 mg PO BID ADINA Stop: 08/21/23 20:59 Last Admin: 08/09/23 08:40 Dose: 64 mg Montelukast Sodium (Montelukast Sodium 10 Mg Tablet) 10 mg PO HS ADINA Stop: 08/21/23 20:59 Last Admin: 08/08/23 20:57 Dose: 10 mg Ondansetron HCl (Ondansetron Inj 2 Mg/Ml 2 Ml Vial) 4 mg IV Q4H PRN PRN Reason: Nausea And Vomiting Stop: 08/21/23 18:25 Last Admin: 07/31/23 03:58 Dose: 4 mg Pantoprazole Sodium (Pantoprazole 40 Mg Tab) 40 mg PO BID ADINA Stop: 08/21/23 20:59 Last Admin: 08/09/23 08:40 Dose: 40 mg Polyethylene Glycol (Polyethylene (Miralax) 17 Gm Pack) 17 gm PO DAILY PRN PRN Reason: Constipation Stop: 09/03/23 13:37 Last Admin: 08/08/23 10:19 Dose: 17 gm Prednisone (Prednisone 20 Mg Tab) 40 mg PO DAILY ADINA Stop: 09/04/23 17:59 Last Admin: 08/09/23 08:40 Dose: 40 mg Sennosides (Senna 8.6 Mg Tab) 17.2 mg PO HS ADINA Stop: 09/05/23 20:59 Last Admin: 08/08/23 20:57 Dose: 17.2 mg Sertraline HCl (Sertraline Hcl 100 Mg Tablet) 100 mg PO QAM ADINA Stop: 08/22/23 08:59 Last Admin: 08/09/23 08:40 Dose: 100 mg Sotalol HCl (Sotalol Hcl 80 Mg Tab) 80 mg PO BID ADINA Stop: 08/21/23 20:59 Last Admin: 08/09/23 08:39 Dose: 80 mg Trimethoprim/Sulfamethoxazole (Sulfamethoxazole/Trimethoprim Ds 800/160mg Tab) 3 tab PO Q12 ADINA Stop: 08/20/23 20:59 Last Admin: 08/09/23 08:39 Dose: 3 tab Vitamin D (Cholecalciferol 1,000 Units 25 Mcg Tab) [facility] [place] Stop: 08/22/23 08:59 Last Admin: 08/09/23 08:40 Dose: 2,000 units (8) GERD (gastroesophageal reflux disease) Esophagitis presence: without esophagitis Qualified Code(s): K21.9 - Gastro- esophageal reflux disease without esophagitis (9) HTN (hypertension) Hypertension type: unspecified Qualified Code(s): I10 - Essential (primary) hypertension
[2023-08-09] MEDS: LORazepam 0.5 MG TAB PO PRN (17:37)
[2023-08-09] MEDS: MONTELUKAST SODIUM 10 MG TABLET PO SCH (20:38)
[2023-08-09] MEDS: SENNA 8.6 MG TAB PO SCH (20:38)
[2023-08-10] MEDS: LORazepam 0.5 MG TAB PO PRN ×2 (05:26→21:35)
[2023-08-10] MEDS: HEPARIN SOD 5,000 UNIT/0.5 ML VIAL SQ SCH ×3 (05:26→21:35)
[2023-08-10 06:00] LABS: Hematocrit (blood only) 24.3 % (37.0-47.0); Hemoglobin 7.1 g/dl (12.0-16.0)
[2023-08-10 06:08] LABS: BUN Creatinine Ratio 26.6 (10-20); Calcium 9.1 mg/dl (8.6-10.3); Creatinine Clr Calc Pharmacy 60.6 ml/min; Est GFR (Non-African American) 51.8 ml/min; Magnesium 1.9 mg/dl (1.7-2.4); Potassium 4.5 mmol/L (3.5-5.1)
[2023-08-10] MEDS: ALBUT/IPRATROP 3MG/0.5MG NEB 3 ML VIAL NEB SCH ×2 (07:06→19:31)
--- NOTE | 2023-08-10 08:10 | Hospitalist Progress Note ---
Date of Service August 10, 2023 Assessment & Plan (1) Acute respiratory failure with hypoxia and hypercapnia: (2) Acute exacerbation of CHF (congestive heart failure): (3) BERRY (obstructive sleep apnea): (4) Paroxysmal atrial fibrillation: (5) CKD (chronic kidney disease), stage III: (6) Obesity, morbid, BMI 40.0-49.9: (7) Chronic anemia: (8) GERD (gastroesophageal reflux disease): (9) HTN (hypertension): Plan: Patient is a 67 yr female with a history of chronic hypersensitive pneumonitis with multiple associated hospitalizations admitted with acute on chronic hypoxic respiratory failure. Acute on chronic respiratory failure with hypoxia and hypercarbia Chronic hypersensitivity pneumonitis with exacerbation PJP pneumonia Pulmonary hypertension BERRY Chronic oxygen dependency Pt presented with SOB, hypoxic as low as the 70s. 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 Autoimmune panel was negative. CT chest concerning for multifocal pneumonia, pulmonary edema and ARDS. Small right and trace left pleural effusions, moderate cardiomegaly and possible pulmonary arterial hypertension were also noted. ECHO 07/01 noted LVH, EF 60 to 65%, mild pulmonary hypertension Blood Cx:Negative to date Sputum culture could not be obtained, would not be able to tolerate bronch. On high flow oxygen as needed, transition to nasal cannula. Continue to wean down as tolerated. Appreciate pulmonology input: -Goal O2 >88-89% -Continue CPAP -Continue Prednisone 40mg daily- decrease by 5mg each week. Decreased to 35mg daily on 08/10. -Continue Bactrim for suspected PJP--Plan to complete 21-day Bactrim course currently D#13/ per pulmonology. At the 21-day nannette if she remains on prednisone above 20 mg a day, would transition to Bactrim 1 double strength tablet every Thursday and Thursday for PJP prophylaxis -Consider a steroid sparing agent such as mycophenolate if pt flares -Recommending follow-up with pulmonary (Dr. Cook) with a repeat chest x- ray or CT scan in 6 to 8 weeks. S/p IV Lasix- continue PO lasix 40 mg daily. Hemolytic anemia -Follows with heme-onc, on maintenance dose of prednisone 10 mg daily. -Currently on higher dose steroid taper as above. -Status post 1 unit of pRBCs. -H&H stable around 7.8 Hx of UTIs Continue weekly fosfomycin Hyperkalemia In setting of rn long term care Bactrim use status post patiromer Currently resolved Continue low potassium diet Monitor levels Constipation Resolved with suppository Continue bowel regimen Oral thrush Developed on high-dose steroid. Previously treated with Nystatin p.o. 4 times daily. Continue to monitor H/O Tachy-lakeisha syndrome S/P Pacemaker Paroxysmal atrial fibrillation Rhythm controlled on sotalol Not anticoagulated due to history of chronic anemia and bleeding issues CKD stage III Creatinine stable. Continue to monitor renal function Mood disorder stable continue home medications GERD Continue Protonix Diet: Low potassium, regular DVT Px: Heparin SQ Code Status - DNR/DNI Disposition: Patient is stable to transfer to rehab pending insurance authorization Admission and Anticipated Discharge Date Admission Date: July 22, 2023 Subjective Pt seen this AM. Sitting at bedside, no acute distress watching TV. States she feels like she is at baseline. Has NC in nares but denies SOB, chest pain. Denies acute concerns. Review of Systems Review of Systems: All systems reviewed & are unremarkable except as noted in Subjective Physical Exam Physical Exam: General: Alert, oriented. No acute distress Psych: Appropriate mood and affect Neuro: No gross deficits HEENT: NC/AT Chest: Nontender to palpation. CV: RRR, Normal s1, s2. No murmurs appreciated Resp: Breath sounds clear bilaterally, no increased effort of breathing. Abdomen: Soft, nontender Extremities: edema in lower extremities bilaterally. Results & Data Results & Data Vital Signs (Past 12 Hours) Vital Signs Temp Pulse Pulse Resp BP Pulse Ox O2 Del Method 08/10/23 07:12 36.5 C 62 19 159/79 H 99 High Flow Nasal Cannula 08/10/23 07:06 87 16 99 Nasal Cannula 08/10/23 04:00 36.6 C 62 18 121/59 L 95 BiPAP 08/10/23 02:55 61 19 94 08/09/23 23:58 36.6 C 63 23 152/61 H 96 Nasal Cannula 08/09/23 23:12 65 08/09/23 22:37 67 20 93 08/09/23 20:59 High Flow Nasal Cannula O2 Flow Rate FiO2 08/10/23 07:12 8 08/10/23 07:06 8 08/10/23 04:00 08/10/23 02:55 45 08/09/23 23:58 8 08/09/23 23:12 08/09/23 22:37 45 08/09/23 20:59 8 (8) GERD (gastroesophageal reflux disease) Esophagitis presence: without esophagitis Qualified Code(s): K21.9 - Gastro- esophageal reflux disease without esophagitis (9) HTN (hypertension) Hypertension type: unspecified Qualified Code(s): I10 - Essential (primary) hypertension
[2023-08-10] MEDS: SOTALOL HCL 80 MG TAB PO SCH ×2 (09:11→20:05)
[2023-08-10] MEDS: MAGNESIUM CHLORIDE W/CALCIUM 64MG DELAYED REL TAB PO SCH ×2 (09:11→20:04)
[2023-08-10] MEDS: PANTOprazole 40 MG TAB PO SCH ×2 (09:11→20:03)
[2023-08-10] MEDS: SULFAMETHOXAZOLE/TRIMETHOPRIM DS 800/160MG TAB PO SCH ×2 (09:12→20:02)
[2023-08-10] MEDS: guaiFENesin 600 MG TABCR PO SCH ×2 (09:13→20:03)
[2023-08-10] MEDS: LORATADINE 10 MG TAB PO SCH (09:14)
[2023-08-10] MEDS: GABAPENTIN 300 MG CAP PO SCH ×3 (09:14→20:04)
[2023-08-10] MEDS: DOCUSATE SODIUM 100 MG CAP PO SCH ×2 (09:14→20:01)
[2023-08-10] MEDS: CHOLECALCIFEROL 1,000 UNITS 25 MCG TAB PO SCH (09:15)
[2023-08-10] MEDS: FOLIC ACID 1 MG TAB PO SCH (09:15)
[2023-08-10] MEDS: amLODIPine BESYLATE 5 MG TAB PO SCH (09:16)
[2023-08-10] MEDS: SERTRALINE HCL 100 MG TABLET PO SCH (09:16)
[2023-08-10] MEDS: FUROSEMIDE 40 MG TAB PO SCH (09:17)
[2023-08-10] MEDS: predniSONE 20 MG TAB PO SCH (10:54)
[2023-08-10 12:34] LABS: Hematocrit (blood only) 26.1 % (37.0-47.0); Hemoglobin 7.8 g/dl (12.0-16.0)
[2023-08-10] MEDS: ACETAMINOPHEN 325 MG TAB PO PRN (15:35)
[2023-08-10] MEDS: MONTELUKAST SODIUM 10 MG TABLET PO SCH (20:02)
[2023-08-10] MEDS: SENNA 8.6 MG TAB PO SCH (20:05)
[2023-08-11] MEDS: HEPARIN SOD 5,000 UNIT/0.5 ML VIAL SQ SCH (06:14)
[2023-08-11 06:53] LABS: Hematocrit (blood only) 23.2 % (37.0-47.0); Hemoglobin 6.9 g/dl (12.0-16.0); Mean Corpuscular Hemoglobin 26.6 pg (25.0-34.0); Mean Corpuscular Hgb Conc 29.7 g/dL (32.0-36.0); Mean Corpuscular Volume 89.6 fL (80.0-100.0); Mean Platelet Volume 11.1 fL (9.4-12.4); Nucleated RBC # (auto) 0.12 K/uL (0.00-0.12); Nucleated RBC % (auto) 2.8 %; Platelet Count 107 K/uL (130-400); RDW Coefficient of Variation 22.1 % (11.5-14.5); RDW Standard Deviation 72.6 fL (36.4-46.3); Red Blood Count 2.59 M/uL (4.20-5.40); White Blood Count 4.24 K/ul (4.8-10.8)
[2023-08-11 07:12] LABS: BUN Creatinine Ratio 19.9 (10-20); Calcium 8.7 mg/dl (8.6-10.3); Creatinine Clr Calc Pharmacy 47.5 ml/min; Est GFR (African American) 45.9 ml/min; Est GFR (Non-African American) 39.6 ml/min; Potassium 4.5 mmol/L (3.5-5.1)
[2023-08-11] MEDS: ALBUT/IPRATROP 3MG/0.5MG NEB 3 ML VIAL NEB SCH (07:18)
[2023-08-11 07:52] LABS: Hematocrit (blood only) 22.8 % (37.0-47.0); Hemoglobin 6.8 g/dl (12.0-16.0)
[2023-08-11] MEDS: SOTALOL HCL 80 MG TAB PO SCH (07:55)
[2023-08-11] MEDS: GABAPENTIN 300 MG CAP PO SCH (07:56)
[2023-08-11] MEDS: amLODIPine BESYLATE 5 MG TAB PO SCH (07:56)
[2023-08-11] MEDS: MAGNESIUM CHLORIDE W/CALCIUM 64MG DELAYED REL TAB PO SCH (07:56)
[2023-08-11] MEDS: guaiFENesin 600 MG TABCR PO SCH (07:57)
[2023-08-11] MEDS: PANTOprazole 40 MG TAB PO SCH (07:57)
[2023-08-11] MEDS: FUROSEMIDE 40 MG TAB PO SCH (07:58)
[2023-08-11] MEDS: SULFAMETHOXAZOLE/TRIMETHOPRIM DS 800/160MG TAB PO SCH (07:58)
[2023-08-11] MEDS: FOLIC ACID 1 MG TAB PO SCH (07:59)
[2023-08-11] MEDS: CHOLECALCIFEROL 1,000 UNITS 25 MCG TAB PO SCH (07:59)
[2023-08-11] MEDS: LORATADINE 10 MG TAB PO SCH (07:59)
[2023-08-11] MEDS: DOCUSATE SODIUM 100 MG CAP PO SCH (07:59)
[2023-08-11] MEDS: SERTRALINE HCL 100 MG TABLET PO SCH (07:59)
[2023-08-11] MEDS ORDERED: SODIUM CHLORIDE 0.9% 250 ML IV PRN (08:14)
--- NOTE | 2023-08-11 08:42 | Discharge Summary ---
Discharge Summary Date of Service August 11, 2023 Notes For Next Care Provider Ensure follow up with outpatient commercial lending assistant (Dr. Cook) with a repeat chest x-ray or CT scan in 6 to 8 weeks. Medication changes noted below Medication Changes From Visit -Bactrim DS 3 tabs BID for an additional 7 days for total 21 days. Then Bactrim DS 1 tab every MWF for PJP prophylaxis if still on prednisone dose above 20mg. -Prednisone taper from 35mg. Decrease by 5mg every week or 7 days until back to home 10mg daily dosing -Lasix home dose decreased to 40mg daily, consider titrating up to home BID dosing. Admission HPI Per Admitting Provider This is a 67-year-old female with PMHx of chronic hypoxic respiratory failure on home O2, ILD, BERRY, ovarian cancer, paroxysmal atrial tachycardia, tachybradycardia syndrome s/p pacemaker, paroxysmal atrial fibrillation on sotalol, not anticoagulated due to anemia and hx of bleeding issues, pulmonary hypertension, HTN, chronic diastolic CHF, hemolytic anemia, and other problems listed below who presents to the ED for evaluation of shortness of breath and hypoxia.Recently admitted for acute on chronic hypoxic respiratory failure due to CHF and/or pneumonia in the setting of underlying interstitial lung disease. Patient discharged on increased O2 requirement --4 L at rest and 6 L with activity on 07/10/23. Pt reports having a flu shot given on Thursday last week, and since then has not been feeling herself. She is weak, with progressive shortness of breath. Breathing worsened within the past 24 hrs, and increased her o2 from 6 L to 9L, however still did not improve her sob. Pt completed course of antibiotics on 07/17 from the previous admission. She has been able to take her home medica tions. 3 days ago she received the nebulizer in the mail to start treatments at home. She has been taking lasix 40 mg BID at home, and does not feel swollen at all. Denies fever, chills, sweats. Her brother, Jefry, is present at bedside and assists with the history. In the instance that her breathing would worsen, she is agreeable that she would not want to be on a ventilator. Pt would want to be kept comfortable and does not want to be placed on a ventilator. Recent Admissions: 06/17 through 06/22 for acute on chronic hypoxic respiratory failure felt to be due to pneumonia and/or volume overload. 07/06 -07/10 for similar issues treated again for pneumonia, ILD, and acute on chronic hypoxic resp failure. Admission Exam Per Admitting Provider General: awake, alert, no apparent distress, + morbidly obese white female, + somnolent and closes eyes throughout much of conversation Head: Normocephalic, atraumatic ENT: PERRL, EOMI, no pharyngeal exudate, mucous membranes moist Chest: Coarse rhonchus breath sounds with absent sounds at bases bilaterally, on bipap 10/5, no wheeze or rales Cardiac: Regular rate and rhythm, +systolic murmur grade II/, no JVD, normal peripheral pulses, good capillary refill Abdominal: NABS x 4 quadrants, soft, nondistended, nontender to palpation, no rebound or guarding Extremities: Normal inspection, + minimal peripheral edema or erythema, calfs nontender to palpation, + left foot leg wound healing Psych: Normal mood and affect Neuro: AAO x 3, strength intact bilaterally and rated 5/5, no motor deficits, speech is clear, no peripheral sensory deficits Principal Dx & Hospital Course #1 = Principal Diagnosis (1) Acute respiratory failure with hypoxia and hypercapnia: (2) Acute exacerbation of CHF (congestive heart failure): (3) BERRY (obstructive sleep apnea): (4) Paroxysmal atrial fibrillation: (5) CKD (chronic kidney disease), stage III: (6) Obesity, morbid, BMI 40.0-49.9: (7) Chronic anemia: (8) GERD (gastroesophageal reflux disease): (9) HTN (hypertension): Plan Patient is a 67 yr female with a history of chronic hypersensitive pneumonitis with multiple associated hospitalizations admitted with acute on chronic hypoxic respiratory failure. Acute on chronic respiratory failure with hypoxia and hypercarbia Chronic hypersensitivity pneumonitis with exacerbation PJP pneumonia Pulmonary hypertension BERRY Chronic oxygen dependency Pt presented with SOB, hypoxic as low as the 70s. On 5 L of oxygen at baseline Respiratory panel: Negative, Legionella negative, Histoplasmosis negative As per her outpatient commercial lending assistant; hypersensitivity panel was checked which showed sensitivity to several molds. Autoimmune panel was negative. CT chest concerning for multifocal pneumonia, pulmonary edema and ARDS. Small right and trace left pleural effusions, moderate cardiomegaly and possible pulmonary arterial hypertension were also noted. ECHO 07/01 noted LVH, EF 60 to 65%, mild pulmonary hypertension Blood Cx x2: Negative to date Sputum culture could not be obtained, would not be able to tolerate bronch per pulmonology. Pt being treated for empiric PJP pneumonia with Bactrim DS. On high flow oxygen as needed, transition to nasal cannula. Continue to wean down as tolerated. Appreciate pulmonology input: -Goal O2 >88-89% -Continue CPAP at night -Continue Prednisone taper by decreasing by 5mg every week. On 08/10, prednisone decreased from 40mg daily to 35mg daily. Continue for an additional 7 days before decreasing by 5mg. -Continue Bactrim for suspected PJP--Per Pulmonology: Plan is to complete 21- day Bactrim DS course, 3 tabs BID. Currently Day# on discharge. At the 21-day nannette if she remains on prednisone above 20 mg a day, would transition to Bactrim 1 double strength tablet every Thursday and Thursday for PJP prophylaxis. -Consider a steroid sparing agent such as mycophenolate if pt flares on above regimen. -Recommending follow-up with pulmonary (Dr. Cook) with a repeat chest x- ray or CT scan in 6 to 8 weeks. S/p IV Lasix- continue PO lasix 40 mg daily. Hemolytic anemia -Follows with heme-onc, on maintenance dose of prednisone 10 mg daily. -Currently on higher dose steroid taper as noted above. -Status post 1 unit of pRBCs on 07/24and 1U of pRBCs on day of discharge. -H&H stable with repeat Hgb on discharge of 8.5 Hx of UTIs Continue weekly fosfomycin Hyperkalemia In setting of terminal makeup operator Bactrim use status post patiromer Currently resolved, K+ of 4.5 on discharge Continue low potassium diet Monitor levels Constipation Resolved with suppository Continue bowel regimen Oral thrush Developed on high-dose steroid. Previously treated with Nystatin p.o. 4 times daily. Continue to monitor H/O Tachy-lakeisha syndrome S/P Pacemaker Paroxysmal atrial fibrillation Rhythm controlled on sotalol Not anticoagulated due to history of chronic anemia and bleeding issues CKD stage III Creatinine stable. Continue to monitor renal function Mood disorder stable continue home medications GERD Continue Protonix Discharge Exam General: Alert, oriented. No acute distress Psych: Appropriate mood and affect Neuro: No gross deficits HEENT: NC/AT Chest: Nontender to palpation. CV: RRR, Normal s1, s2. No murmurs appreciated Resp: Breath sounds clear bilaterally, no increased effort of breathing. Abdomen: Soft, nontender Extremities: edema in lower extremities bilaterally. Updated Medication List Medication Instructions Recorded Confirmed Type lorazepam 0.5 mg tablet 0.5 mg PO Q8H PRN Anxiety 10/18/18 07/22/23 History sertraline 100 mg tablet (Zoloft) 100 mg PO QAM 10/18/18 07/22/23 History cyclobenzaprine 5 mg tablet 5 mg PO BID PRN Muscle Spasm 08/25/19 07/22/23 History omeprazole 20 mg capsule,delayed 20 mg PO BID 04/12/20 07/22/23 History release folic acid 1 mg tablet 1 mg PO QAM 05/08/20 07/22/23 History sotalol 80 mg tablet 80 mg PO BID 10/01/20 07/22/23 History cholecalciferol (vitamin D3) 50 2,000 unit PO QAM #90 tabs 04/09/21 07/22/23 Rx mcg (2,000 unit) tablet loratadine 10 mg tablet (Claritin) 10 mg PO QAM 09/18/22 07/22/23 History Portable Oxygen #1 ea 01/23/23 07/22/23 Rx acetaminophen 325 mg tablet 325 mg PO DIRECTED PRN 02/27/23 07/22/23 History (Tylenol) PAIN/FEVER albuterol sulfate 90 mcg/actuation 2 puff inhalation Q4H PRN Wheezing 02/27/23 07/22/23 History aerosol inhaler docusate sodium 100 mg capsule 100 mg PO BID 02/27/23 07/22/23 History (Stool Softener) fluoride (sodium) 1.1 % dental 1 applic dental BID 02/27/23 07/22/23 History cream (SF 5000 Plus) hydroxyzine HCl 25 mg tablet 25 mg PO HS PRN Itching 02/27/23 07/22/23 History gabapentin 300 mg capsule 300 mg PO TID 06/17/23 07/22/23 History prednisone 10 mg tablet 10 mg PO QAM 06/17/23 07/22/23 History amlodipine 5 mg tablet (Norvasc) 5 mg PO QAM #30 tabs 06/22/23 07/22/23 Rx magnesium chloride 64 mg 64 mg PO BID #30 tabs 06/22/23 07/22/23 Rx (magnesium chloride) tablet,delayed release (Mag 64) ipratropium 0.5 mg-albuterol 3 mg 3 ml NEB QIDR PRN shortness of 07/10/23 07/22/23 Rx (2.5 mg base)/3 mL nebulization breath #180 mL soln montelukast 10 mg tablet 10 mg PO QAM 07/22/23 07/22/23 History fosfomycin tromethamine 3 gram 3 g PO WK 07/31/23 07/31/23 History oral packet furosemide 40 mg tablet 40 mg PO QAM #30 tabs 08/11/23 Rx prednisone 10 mg tablet See Rx Instructions .Route 08/11/23 Rx .COMPLEX #53 tabs sulfamethoxazole 800 3 tab PO Q12 #42 tabs 08/11/23 Rx mg-trimethoprim 160 mg tablet (Bactrim DS) Hospital Stay Data Consultations 07/22/23 16:01 ED Decision to Admit Stat 07/22/23 16:27 Consult Pulmonology Routine Diagnostic Imagining Performed 07/22/23 14:48 CT for pulmonary embolism PE [CT angio chest PE protocol] Stat Chest X-Ray 07/22/23 13:24 XR chest 1V portable HISTORY: Sepsis COMPARISON: Chest 07/09/2023. FINDINGS: There are low lung volumes. No pneumothorax. The cardiac silhouette remains mildly enlarged. There is a left-sided dual-chamber pacemaker. Interstitial thickening and multifocal bilateral airspace opacities have progressed. Trace bilateral pleural effusions again noted. There are surgical clips within the upper abdomen. IMPRESSION: Interval progression of the interstitial thickening and multifocal bilateral airspace opacities. ACT 112: Negative or not required by law. Electronically signed by: Karthik Cantu M.D. 07/22/2023 2:12 PM Chest CTA 07/22/23 14:48 CT ANGIOGRAPHY OF THE CHEST, PULMONARY EMBOLUS PROTOCOL CLINICAL HISTORY: Shortness of breath COMPARISON STUDY: Chest CT May 19, 2023. Chest radiograph July 09, 2023 and July 22, 2023. TECHNIQUE: Following IV administration of 118 mL of Optiray, helical axial images of the chest were obtained utilizing the pulmonary embolus protocol. Maximal intensity projections and sagittal and coronal reformats were viewed on an independent 3D workstation. IV contrast was administered without complication. Automated exposure control was utilized for the study. A dose lowering technique was utilized adhering to the principles of ALARA. CT DOSE: 1064.73 mGy.cm FINDINGS: No pulmonary emboli are identified although the segmental and subsegmental pulmonary arteries are suboptimally assessed. There is mild dilatation of the central pulmonary arteries. There is no thoracic aortic dissection. A dual-lead left subclavian pacer is in place. There is no pericardial effusion. Mildly enlarged mediastinal and bilateral hilar lymph nodes are similar to CT of May 19, 2023. Index prevascular node on image 120 at 199 measures 1 cm short axis diameter. Index left hilar node on image 108 measures 1.4 cm. Cardiomegaly is unchanged. Small right and trace left pleural effusions have developed. There is no pneumothorax. Extensive multifocal consolidation and groundglass opacities within the lungs have progressed since CT of May 19, 2023. The central airways are patent. There is no cavitation. Old mild T5 compression deformity is unchanged. Splenomegaly is unchanged. The liver is cirrhotic. IMPRESSION: 1. No pulmonary emboli identified although segmental and subsegmental pulmonary arteries suboptimally assessed. 2. Progression of extensive multifocal consolidation and groundglass opacities within the lungs since CT of May 19, 2023. These are nonspecific. Primary considerations include multifocal pneumonia, pulmonary edema and ARDS. 3. Interval development of small right and trace left pleural effusions. 4. Moderate cardiomegaly and coronary artery calcification. Mild dilatation of the central pulmonary arteries which raises the possibility of pulmonary arterial hypertension. 5. No change in mild mediastinal and bilateral hilar lymphadenopathy. This is nonspecific and may be reactive. ACT 112: Negative or not required by law. Electronically signed by: Pro Joya M.D. 07/22/2023 3:46 PM Chest X-Ray 07/27/23 07:00 SINGLE VIEW CHEST CLINICAL HISTORY: Dyspnea FINDINGS: An AP, portable, upright chest radiograph is compared to chest x-ray and chest CT dated 07/22/2018. A 2-lead cardiac pacemaker is unchanged in position. The heart is enlarged noting atherosclerotic calcification of the thoracic aorta. Extensive/diffuse airspace opacities have modestly cleared as compared to 07/22/2023. Small pleural effusions are noted. No pneumothorax is seen. The skeletal structures are osteopenic. The bony thorax is grossly intact. IMPRESSION: 1. Cardiomegaly and cardiac pacemaker. 2. Extensive/diffuse multifocal airspace opacities have modestly cleared as comp ared to 07/22/2023. Correlate clinically. 3. Small pleural effusions. ACT 112: Negative or not required by law. Electronically signed by: Freddie Mae M.D. 07/27/2023 7:33 AM Chest X-Ray 08/04/23 07:00 XR chest 1V portable HISTORY: hypoxemia COMPARISON: Chest 07/27/2023. FINDINGS: There are low lung volumes. No pneumothorax. No pleural effusions. The heart remains mildly enlarged. There is left-sided dual-chamber pacemaker. Multifocal patchy bilateral airspace opacities are again noted. These have slightly improved in the interval. No acute fractures. Surgical clips within the upper abdomen. IMPRESSION: Multifocal bilateral airspace opacities again noted. These have slightly improved in the interval. ACT 112: Negative or not required by law. Electronically signed by: Karthik Cantu M.D. 08/04/2023 8:20 AM Discharge Instructions Given to Patient (Per Discharging Provider) Patient is a 67 yr female with a history of chronic hypersensitive pneumonitis with multiple associated hospitalizations admitted with acute on chronic hypoxic respiratory failure. Acute on chronic respiratory failure with hypoxia and hypercarbia Chronic hypersensitivity pneumonitis with exacerbation PJP pneumonia Pulmonary hypertension BERRY Chronic oxygen dependency Pt presented with SOB, hypoxic as low as the 70s. On 5 L of oxygen at baseline Respiratory panel: Negative, Legionella negative, Histoplasmosis negative As per her outpatient commercial lending assistant; hypersensitivity panel was checked which showed sensitivity to several molds. Autoimmune panel was negative. CT chest concerning for multifocal pneumonia, pulmonary edema and ARDS. Small right and trace left pleural effusions, moderate cardiomegaly and possible pulmonary arterial hypertension were also noted. ECHO 07/01 noted LVH, EF 60 to 65%, mild pulmonary hypertension Blood Cx x2: Negative to date Sputum culture could not be obtained, would not be able to tolerate bronch per pulmonology. Pt being treated for empiric PJP pneumonia with Bactrim DS. On high flow oxygen as needed, transition to nasal cannula. Continue to wean down as tolerated. Appreciate pulmonology input: -Goal O2 >88-89% -Continue CPAP at night -Continue Prednisone taper by decreasing by 5mg every week. On 08/10, prednisone decreased from 40mg daily to 35mg daily. Continue for an additional 7 days before decreasing by 5mg. -Continue Bactrim for suspected PJP--Per Pulmonology: Plan is to complete 21- day Bactrim DS course, 3 tabs BID. Currently Day#14 on discharge. At the 21-day nannette if she remains on prednisone above 20 mg a day, would transition to Bactrim 1 double strength tablet every Thursday and Thursday for PJP prophylaxis. -Consider a steroid sparing agent such as mycophenolate if pt flares on above regimen. -Recommending follow-up with pulmonary (Dr. Cook) with a repeat chest x- ray or CT scan in 6 to 8 weeks. S/p IV Lasix- continue PO lasix 40 mg daily. Hemolytic anemia -Follows with heme-onc, on maintenance dose of prednisone 10 mg daily. -Currently on higher dose steroid taper as noted above. -Status post 1 unit of pRBCs on 07/24and 1U of pRBCs on day of discharge. -H&H stable. Hx of UTIs Continue weekly fosfomycin Hyperkalemia In setting of terminal makeup operator Bactrim use status post patiromer Currently resolved, K+ of 4.5 on discharge Continue low potassium diet Monitor levels Constipation Resolved with suppository Continue bowel regimen Oral thrush Developed on high-dose steroid. Previously treated with Nystatin p.o. 4 times daily. Continue to monitor H/O Tachy-lakeisha syndrome S/P Pacemaker Paroxysmal atrial fibrillation Rhythm controlled on sotalol Not anticoagulated due to history of chronic anemia and bleeding issues CKD stage III Creatinine stable. Continue to monitor renal function Mood disorder stable continue home medications GERD Continue Protonix Total Time Total Time Spent Total Time Spent (In Minutes): >30 minutes
[2023-08-11] MEDS: LORazepam 0.5 MG TAB PO PRN (08:57)
[2023-08-11] MEDS ORDERED: predniSONE 10 MG TABLET PO SCH (09:00)
[2023-08-11 13:05] LABS: Hematocrit (blood only) 28.2 % (37.0-47.0); Hemoglobin 8.5 g/dl (12.0-16.0)
== END 2023-08-11 12:55 | DRG 196 ==
LOC: ED 12:51 → SUATTDRO 16:24 → 2E 16:24

== ENCOUNTER 2024-03-15 18:02 | Inpatient (IN) ==
[2024-03-15 18:44] LABS: Base Excess VBG 9.4 mEq/L; HCO3 VBG 39 mmol/L; Oxygen Saturation VBG 67.3 %; PCO2 VBG 82 mmHg (38-50); PO2 VBG 42 mmHg; pH VBG 7.29 (7.36-7.41)
--- NOTE | 2024-03-15 18:46 | Emergency Department Note ---
Impression & Plan Acute on chronic respiratory failure with hypoxia, Interstitial lung disease ED Provider Note Provider: Jeovanny Hale MD DATE OF SERVICE: 03/15/2024 CHIEF COMPLAINT: Hypoxia HISTORY OF PRESENT ILLNESS: Patient is a 68-year-old female history of chronic hypoxic respiratory failure normally on 4 to 5 L of nasal cannula oxygen related to ILD versus pulmonary hypertension. States she was doing fine. Noted after a shower this afternoon that began to feel off and her oxygen level drops. She states she is wearing her oxygen using her concentrator is normal. She wonders if there could be something wrong with the machine. Was found to be hypoxic into the 50s. Improving with oxygen supplementation for EMS and upon arrival here. Denies any pain or chest pain. Denies any recent falls. Does have some scattered chronic skin changes to her extremities and states she does have a resolving bruise on her left foot where she dropped something on it. Denies GI symptoms or fever. Denies significant new cough. Denies significant weight gain. PAST MEDICAL HISTORY: As noted above MEDICATIONS: Reviewed home medications not on anticoagulants. SOCIAL HISTORY: Lives by herself PHYSICAL EXAM: GENERAL: alert and oriented in no acute distress on stretcher seated with nursing at bedside Head: normocephalic and atraumatic EYES: No injection, discharge or icterus. NECK: Trachea midline. ENT: Mucous membranes pink and moist. LUNGS: Airway patent. No retractions. Breath sounds clear with good air entry bilaterally. HEART: Regular rate and rhythm. No chest wall tenderness ABDOMEN: Soft and non-tender, without guarding or rebound. No hepatosplenomegaly or masses BACK: No midline tenderness, no SI joint tenderness. No bilateral flank tenderness. SKIN: Acyanotic, warm, dry with some scattered contusions in the upper and lower extremities. EXTREMITIES: Without swelling, tenderness or deformity NEUROLOGICAL: No focal deficits. No aphasia. No facial droop or slurred speech. Normal strength and tone in the extremities. Sensation to gross touch normal. Ambulatory. EK bpm normal sinus rhythm. No PVC or PAC. No acute ST segment elevation or depression with some LVH findings and a QTc of 450. CONTINUOUS CARDIAC MONITORING: was ordered and showed a heart rate of 70s-90s bpm in normal sinus rhythm Patient's laboratory studies and imaging reviewed. Differential includes Reactive airway disease, pneumonia, pneumothorax, COPD, CHF, infections, cardiac ischemia, pulmonary embolism, musculoskeletal, gastrointestinal, as well as other pathologies. IMPRESSION/MEDICAL DECISION MAKING: Unclear if her hypoxia was related to oxygen malfunction at home. Seems to have improved with our use of oxygen. No significant swelling of the lower extremities noted here. Lower suspicion for CHF. Denies significant infectious symptoms but will send respiratory viral panel. Blood work obtained. Will obtain x-ray. Denies any pain or syncope but chest x-ray and troponin were completed. Will give the steroids as it does appear that she has had some improvement with steroids in the past based on prior pulmonary notes. Does not seem severely encephalopathic at this point. VBG obtained upon arrival shows a pH of 7.29 and a CO2 elevated at 82. No significant leukocytosis upon arrival with moderate anemia at 9.3 not far off prior baseline. Discussed with the patient I will initiate BiPAP with hypercarbia. Chest x-ray radiology questions chronic lung space opacities unclear etiology. No leukocytosis or fevers reported. Will send procalcitonin but seems less likely to be acutely infectious at this time. Patient agreeable for trial of some BiPAP. Respiratory viral panel negative. Will bring to the hospital and the patient will need to determine if her machine at home is truly functional. Hospitalist team contacted. DIAGNOSIS: Acute on chronic hypoxic respiratory failure, interstitial lung disease DISPOSITION: Hospitalist will evaluate Patient was agreeable with this plan. Critical Care I have personally spent 32 minutes of critical care time in the direct management of this patient. This includes bedside care, interpretation of diagnostic studies, and testing, discussion with consultants, patient, and family members, and other required patient management activities. These 32 minutes is in excess of all separately billable procedures. Past Med/Surg History Medical History (Updated 03/15/24 @ 22:08 by Jeovanny Hale M.D.) Mood disorder Hemolytic anemia Pulmonary HTN Paroxysmal atrial fibrillation Supracondylar fracture of right femur Choledocholithiasis with obstruction S/p ERCP with stent placement on 01/20/23 Liver cirrhosis secondary to WEIR Obesity (BMI 30-39.9) Chronic hypoxemic respiratory failure Interstitial lung disease Sick sinus syndrome Chronic right-sided HF (heart failure) Likely per cardio secondary to obesity hypo ventilatory syndrome/Pickwickian Ovarian cancer dx'd 07/2020 - surgery + chemo Osteoarthritis Anxiety and depression Restless leg syndrome History of kidney stones Pacemaker IMPLANTED APRIL 2020 FOR A-FIB/TACHY-LAKEISHA SYNDROME (FOLLOWS WITH DR. WELSH). 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 Lepe HTN (hypertension) GERD (gastroesophageal reflux disease) Depression Ventral hernia Surgical History S/P left knee arthroscopy History of vascular access device removed History of ERCP (~09/2020) History of appendectomy (~09/07/20) History of total [place]rectomy with bilateral [place]pingo[place]ophorectomy (BSO) (~09[place]07[place] [facility] [place] History of esophagogastroduodenoscopy (EGD) History of colonoscopy [place] teeth removed History of lithotripsy History of arthroscopy LEFT KNEE History of tonsillectomy History of herniorrhaphy VENTRAL HERNIA REPAIR= 04/27/17= GRADE VIEW 2, CLEMENTE#2, ETT 7.0 AT [facility] S/P adenoidectomy H/O arthroscopy of knee H/O gastric bypass "1980, reversed in same year" H/O cystoscopy Family History Mother Scleroderma Lupus Family history of reaction to anesthesia nausea Father Coronary heart disease Heart disease Brother Fatty liver Aunt Cancer unspecified Grandfather (Paternal) Heart disease Grandfather (Maternal) Lung disease Grandmother (Paternal) Stroke Grandmother (Maternal) Family history of diabetes mellitus Social History Smoking Status: Former smoker Tobacco Type: Cigarettes Age Started Using Tobacco: 26; Age Quit Using Tobacco: 38; Cigarettes Per Day: couple cigs on weekends in ; Second Hand Exposure: Yes; Do You Dip or Chew Tobacco: No; Hx Alcohol Use: No Hx Substance Use: No Preferred Language: Bangladeshi Communication Ability: Effective Visual Impairment: No Limitations Antenna Engineer Required: No Beliefs That Will Affect Care: None marital status: Current Living Situation: Alone Current Living Situation Comment: home health current occupational status: retired How many Children do You have: 0 Feels Safe at Home: Yes Diet: regular during the past year weight has: remained stable Assistive Devices: Oxygen - Continuous and Wheelchair Allergies Allergies Allergy/AdvReac Type Severity Reaction Status Date / Time levofloxacin Allergy Intermediate LE Verified 03/15/24 20:04 swelling and blistering paclitaxel [From Taxol] Allergy Intermediate facial Verified 03/15/24 20:04 flushing, bradycardia doxorubicin AdvReac Severe Hypoxia Verified 03/15/24 20:04 clindamycin AdvReac Intermediate PT Verified 03/15/24 20:04 CONTRACTED C-DIFF shellfish derived AdvReac Intermediate NAUSEA,DIARRHEA, Verified 03/15/24 20:04 VOMITING adhesive AdvReac Mild SKIN Verified 03/15/24 20:04 BLISTERS SOME TIMES Home Meds Home Medications Medication Instructions Recorded Confirmed lorazepam 0.5 mg tablet 0.5 mg PO BID Anxiety 10/18/18 03/15/24 sertraline 100 mg tablet (Zoloft) 100 mg PO QAM 10/18/18 03/15/24 cyclobenzaprine 5 mg tablet 5 mg PO BID PRN Muscle Spasm 08/25/19 03/15/24 omeprazole 20 mg capsule,delayed 20 mg PO BID 04/12/20 03/15/24 release folic acid 1 mg tablet 1 mg PO QAM 05/08/20 03/15/24 sotalol 80 mg tablet 80 mg PO BID 10/01/20 03/15/24 loratadine 10 mg tablet (Claritin) 10 mg PO QAM 09/18/22 03/15/24 acetaminophen 325 mg tablet 325 mg PO DIRECTED PRN 02/27/23 03/15/24 (Tylenol) PAIN/FEVER albuterol sulfate 90 mcg/actuation 2 puff inhalation Q4H PRN Wheezing 02/27/23 03/15/24 aerosol inhaler docusate sodium 100 mg capsule 100 mg PO BID 02/27/23 03/15/24 (Stool Softener) fluoride (sodium) 1.1 % dental 1 applic dental BID 02/27/23 03/15/24 cream (SF 5000 Plus) hydroxyzine HCl 25 mg tablet 25 mg PO HS PRN Itching 02/27/23 03/15/24 gabapentin 300 mg capsule 300 mg PO TID 06/17/23 03/15/24 montelukast 10 mg tablet 10 mg PO QAM 07/22/23 03/15/24 fosfomycin tromethamine 3 gram 3 g PO FARMER@0900 07/31/23 03/15/24 oral packet Portable Oxygen E0431 12/24/23 03/15/24 amoxicillin 500 mg capsule 2,000 mg PO DIRECTED PRN 1 HR 03/15/24 03/15/24 PRIOR TO DENTAL APPT. bumetanide 2 mg tablet 2 mg PO BID 03/15/24 03/15/24 ipratropium 0.5 mg-albuterol 3 mg 3 ml NEB Q6H PRN shortness of 03/15/24 03/15/24 (2.5 mg base)/3 mL nebulization breath soln nystatin 100,000 unit/gram topical 1 applic topical TID PRN SKIN 03/15/24 03/15/24 powder IRRITATION, UNDER BREASTS, ABD FOLDS prednisone 10 mg tablet 10 mg PO DAILY 03/15/24 03/15/24 Previous Rx's Medication Instructions Recorded cholecalciferol (vitamin D3) 50 2,000 unit PO QAM #90 tabs 04/09/21 mcg (2,000 unit) tablet amlodipine 5 mg tablet (Norvasc) 5 mg PO QAM #30 tabs 06/22/23 Results & Data (ED) Vital Signs Vital Signs - 24 hr 03/15/24 18:14 03/15/24 18:14 03/15/24 18:14 Temperature Temperature Source Pulse Rate 93 H Pulse Rate [Apical] Respiratory Rate 26 H Respiratory Effort / Characteristics Short of Breath Labored Short of Breath Respiratory Depth Blood Pressure 137/67 Blood Pressure [Right Arm] Blood Pressure Mean 90 Blood Pressure Mean [Right Arm] Pulse Oximetry 55 L Oxygen Delivery Method Room Air Non-rebreather Oxygen Flow Rate 10 Sepsis Recent Fever Within 48 Hours No Sepsis New/Unexplained Change in Mental Status N/A Sepsis Action Taken by Nursing No Action Required Oxygen Flow Rate - Titration 8 03/15/24 18:14 03/15/24 18:14 03/15/24 18:43 Temperature Temperature Source Pulse Rate 90 Pulse Rate [Apical] Respiratory Rate 24 Respiratory Effort / Characteristics Respiratory Depth Blood Pressure Blood Pressure [Right Arm] 159/88 H Blood Pressure Mean Blood Pressure Mean [Right Arm] 111 Pulse Oximetry 95 95 Oxygen Delivery Method Oxymask Oxymask Oxygen Flow Rate 8 8 Sepsis Recent Fever Within 48 Hours Sepsis New/Unexplained Change in Mental Status Sepsis Action Taken by Nursing Oxygen Flow Rate - Titration 03/15/24 18:48 03/15/24 20:28 03/15/24 21:42 Temperature 36.5 C Temperature Source Oral Pulse Rate Pulse Rate [Apical] 75 76 Respiratory Rate 22 20 Respiratory Effort / Characteristics Respiratory Depth Normal Normal Blood Pressure Blood Pressure [Right Arm] 143/70 H 146/79 H Blood Pressure Mean Blood Pressure Mean [Right Arm] 94 101 Pulse Oximetry 95 92 Oxygen Delivery Method BiPAP BiPAP Oxygen Flow Rate Sepsis Recent Fever Within 48 Hours Sepsis New/Unexplained Change in Mental Status Sepsis Action Taken by Nursing Oxygen Flow Rate - Titration Laboratory Data 03/15/24 18:31 03/15/24 18:31 Lab Results 03/15/24 03/15/24 Range/Units 18:31 Unknown WBC 8.12 (4.8-10.8) K/ul RBC 3.33 L (4.20-5.40) M/uL Hgb 9.3 L (12.0-16.0) g/dl Hct 31.4 L (37.0-47.0) % MCV 94.3 (80.0-100.0) fL MCH 27.9 (25.0-34.0) pg MCHC 29.6 L (32.0-36.0) g/dL RDW Std Deviation 67.7 H (36.4-46.3) fL RDW Coeff of Patrica 19.7 H (11.5-14.5) % Plt Count 115 L (130-400) K/uL MPV 11.2 (9.4-12.4) fL Immature Gran % (Auto) 1.5 % Neut % (Auto) 83.3 % Lymph % (Auto) 8.3 % [place] % (Auto) 5.5 % Eos % (Auto) 1.2 % Baso % (Auto) 0.2 % Neut # (Auto) 6.76 H (1.40-6.50) K/uL Lymph # (Auto) 0.67 L (1.20-3.40) K/uL [place] # (Auto) 0.45 (0.11-0.59) K/uL Eos # (Auto) 0.10 (0.00-0.50) K/uL Baso # (Auto) 0.02 (0.00-0.20) K/uL Immature Gran # (Auto) 0.12 (0.01-0.20) K/uL Absolute Nucleated RBC 0.07 (0.00-0.12) K/uL Nucleated RBC % (auto) 0.9 % PT 10.7 (9.0-12.0) Seconds INR 1.0 (0.9-1.1) APTT 25 (21-31) Seconds PTT Ratio 0.9 VBG pH 7.29 L (7.36-7.41) VBG pCO2 82 H (38-50) mmHg VBG pO2 42 mmHg VBG HCO3 39 mmol/L VBG O2 Saturation 67.3 % VBG Base Excess 9.4 mEq/L Sodium 140 (136-145) mmol/L Potassium 3.6 (3.5-5.1) mmol/L Chloride 92 L (98-107) mmol/L Carbon Dioxide 39 H (21-32) mmol/L Anion Gap 9 (3-11) BUN 21 (6-23) mg/dl Creatinine 1.12 (0.6-1.2) mg/dl Est Cr Clr Drug Dosing 60.6 ml/min Est GFR ( Amer) 57.6 ml/min Est GFR (Non-Af Amer) 49.7 ml/min BUN/Creatinine Ratio 18.8 (10-20) Glucose 273 H (70-99(Fasting)) mg/dl Calcium 10.3 (8.6-10.3) mg/dl Magnesium 1.5 L (1.7-2.4) mg/dl Total Bilirubin 1.0 (0.2-1.0) mg/dl AST 46 H (13-39) U/L ALT 52 (7-52) U/L Alkaline Phosphatase 83 (34-104) U/L Troponin I High Sens 16.3 H (0-14) pg/ml B-Natriuretic Peptide 122 H (0-100) pg/ml Total Protein 8.2 (6.0-8.3) gm/dl Albumin 4.6 (3.4-5.0) gm/dl Globulin 3.6 (2.5-4.0) gm/dl Albumin/Globulin Ratio 1.3 (0.9-2) Procalcitonin 0.30 (0-0.5) ng/ml Urine Color Yellow Urine Appearance Clear (Clear) Urine pH 5.5 (4.5-7.5) Ur Specific [place] 1.015 (1.000-1.030) Urine Protein Trace H (Negative) Urine Glucose (UA) Trace H (Negative) Urine Ketones Trace H (Negative) Urine Blood Negative (Negative) Urine Nitrite Negative (Negative) Urine Bilirubin Negative (Negative) Urine Urobilinogen Negative (Negative) Ur Leukocyte Esterase 1+ H (Negative) Urine WBC (Auto) 21-50 H (0-5) /hpf Urine RBC (Auto) 0-2 (0-2) /hpf U Hyaline Cast (Auto) 0-2 (0-2) /lpf U Epithel Cells (Auto) 0-2 (0-2) /hpf Urine Bacteria (Auto) None Seen (None Seen) Adenovirus (PCR) Not Detected (NotDetected) B. pertussis DNA (PCR) Not Detected (NotDetected) B.parapertussis DNA PCR Not Detected (NotDetected) C. pneumoniae DNA (PCR) Not Detected (NotDetected) Coronavirus OC43 (PCR) Not Detected (NotDetected) Coronavirus HKU1 (PCR) Not Detected (NotDetected) Coronavirus 229E (PCR) Not Detected (NotDetected) SARS-CoV-2 (PCR) Not Detected (NotDetected) Coronavirus NL63 (PCR) Not Detected (NotDetected) Human Metapneumovir PCR Not Detected (NotDetected) Influenza Type A (PCR) Not Detected (NotDetected) Influenza Type B (PCR) Not Detected (NotDetected) M. pneumoniae (PCR) Not Detected (NotDetected) Parainfluenza 1 (PCR) Not Detected (NotDetected) Parainfluenza 2 (PCR) Not Detected (NotDetected) Parainfluenza 3 (PCR) Not Detected (NotDetected) Parainfluenza 4 (PCR) Not Detected (NotDetected) RSV (PCR) Not Detected (NotDetected) Entero/Rhino (PCR) Not Detected (NotDetected) Administered Medications Magnesium Sulfate/Dextrose (Magnesium Sulfate / D5w) 1 gm in 100 mls @ 50 mls/hr IV Q2H ADINA Stop: 03/16/24 01:14 Last Admin: 03/15/24 21:48 Dose: 50 mls/hr Documented By: MMG Discontinued Medications Methylprednisolone (Methylprednisolone 125 Mg/2 Ml Vial) 60 mg IV NOW STA Stop: 03/15/24 18:36 Last Admin: 03/15/24 19:08 Dose: 60 mg Documented By: MMG Imaging Data Radiologist's Impression: Chest X-Ray 03/15/24 18:14 XR chest 1V portable CLINICAL HISTORY: Dyspnea. COMPARISON STUDY: Chest CT July 22, 2023. Chest radiograph October 07, 2023. FINDINGS: Left subclavian pacer is in place. Low lung volumes are unchanged. Cardiomediastinal silhouette is stable. Patient is rotated. Interstitial thickening and alveolar opacities appear similar to prior exam. There is no pneumothorax or pleural effusion. IMPRESSION: 1. Persistent interstitial thickening and alveolar opacities. These findings are age indeterminate and could reflect chronic lung disease. However, a superimposed infectious process would be difficult to exclude. 2. Low lung volumes, unchanged. ACT 112: Negative or not required by law. Electronically signed by: Pro Joya M.D. 03/15/2024 6:57 PM Discharge Plan Visit Data Chief Complaint: Shortness of Breath/Dyspnea Stated Complaint: SOB ED Provider: Jeovanny Hale Discharge Problem: Acute on chronic respiratory failure with hypoxia, Interstitial lung disease Patient Disposition: Being Evaluated by Hospitalist Forms Stand Alone Forms: My [facility] [employer] Prescriptions Prescriptions: No Action cholecalciferol (vitamin D3) 50 mcg (2,000 unit) tablet 2,000 unit PO QAM Qty: 90 3RF omeprazole 20 mg capsule,delayed release(DR/EC) 20 mg PO BID (DME) Portable Oxygen E0431 Misc See Rx Instructions .Route Rx Instructions: 3lpm via nasal cannula. Test for portability (POC)-4lpm at rest and 6lpm with activity sertraline [Zoloft] 100 mg Tablet 100 mg PO QAM lorazepam 0.5 mg Tablet 0.5 mg PO BID Rx Instructions: takes twice a day folic acid 1 mg Tablet 1 mg PO QAM sotalol 80 mg tablet 80 mg PO BID cyclobenzaprine 5 mg tablet 5 mg PO BID PRN (Reason: Muscle Spasm) loratadine [Claritin] 10 mg Tablet 10 mg PO QAM acetaminophen [Tylenol] 325 mg Tablet 325 mg PO DIRECTED PRN (Reason: PAIN/FEVER) docusate sodium [Stool Softener] 100 mg Capsule 100 mg PO BID hydroxyzine HCl 25 mg tablet 25 mg PO HS PRN (Reason: Itching) albuterol sulfate 90 mcg/actuation HFA aerosol inhaler 2 puff INHALATION Q4H PRN (Reason: Wheezing) fluoride (sodium) [SF 5000 Plus] 1.1 % Cream 1 applic DENTAL BID gabapentin 300 mg capsule 300 mg PO TID amlodipine [Norvasc] 5 mg Tablet 5 mg PO QAM Qty: 30 1RF montelukast 10 mg tablet 10 mg PO QAM fosfomycin tromethamine 3 gram packet 3 g PO FARMER@0900 bumetanide 2 mg tablet 2 mg PO BID Rx Instructions: QAM & NOON amoxicillin 500 mg Capsule 2,000 mg PO DIRECTED PRN (Reason: 1 HR PRIOR TO DENTAL APPT.) nystatin 100,000 unit/gram powder 1 applic TOPICAL TID PRN (Reason: SKIN IRRITATION, UNDER BREASTS, ABD FOLDS) ipratropium-albuterol 0.5 mg-3 mg(2.5 mg base)/3 mL solution for nebulization 3 ml NEB Q6H PRN (Reason: shortness of breath) prednisone 10 mg Tablet 10 mg PO DAILY Referrals Referrals: Kat Hawthorne DO [Primary Care Provider] -
[2024-03-15 18:50] LABS: Basophils # (auto) 0.02 K/uL (0.00-0.20); Basophils % (auto) 0.2 %; Eosinophils % (auto) 1.2 %; Hematocrit (blood only) 31.4 % (37.0-47.0); Hemoglobin 9.3 g/dl (12.0-16.0); Immature Granulocytes # (auto) 0.12 K/uL (0.01-0.20); Immature Granulocytes % (auto) 1.5 %; Lymphocytes # (auto) 0.67 K/uL (1.20-3.40); Lymphocytes % (auto) 8.3 %; Mean Corpuscular Hemoglobin 27.9 pg (25.0-34.0); Mean Corpuscular Hgb Conc 29.6 g/dL (32.0-36.0); Mean Corpuscular Volume 94.3 fL (80.0-100.0); Mean Platelet Volume 11.2 fL (9.4-12.4); Monocytes # (auto) 0.45 K/uL (0.11-0.59); Monocytes % (auto) 5.5 %; Neutrophils # (auto) 6.76 K/uL (1.40-6.50); Neutrophils % (auto) 83.3 %; Nucleated RBC # (auto) 0.07 K/uL (0.00-0.12); Nucleated RBC % (auto) 0.9 %; Platelet Count 115 K/uL (130-400); RDW Coefficient of Variation 19.7 % (11.5-14.5); RDW Standard Deviation 67.7 fL (36.4-46.3); Red Blood Count 3.33 M/uL (4.20-5.40); White Blood Count 8.12 K/ul (4.8-10.8)
--- NOTE | 2024-03-15 18:58 | XRay Report ---
XR chest 1V portable CLINICAL HISTORY: Dyspnea. COMPARISON STUDY: Chest CT July 22, 2023. Chest radiograph October 07, 2023. FINDINGS: Left subclavian pacer is in place. Low lung volumes are unchanged. Cardiomediastinal silhou ette is stable. Patient is rotated. Interstitial thickening and alveolar opacities appear similar to prior exam. There is no pneumothorax or pleural effusion. IMPRESSION: 1. Persistent interstitial thickening and alveolar opacities. These findings are age indeterminate an d could reflect chronic lung disease. However, a superimposed infectious process would be difficult t o exclude. 2. Low lung volumes, unchanged. ACT 112: Negative or not required by law. Electronically signed by: Pro Joya M.D. 03/15/2024 6:57 PM
[2024-03-15 18:59] LABS: Partial Thromboplastin Ratio 0.9; Partial Thromboplastin Time 25 Seconds (21-31); Prothrombin Time 10.7 Seconds (9.0-12.0)
[2024-03-15] MEDS: methylPREDNISolone 125 MG/2 ML VIAL IV STA (19:08)
[2024-03-15 19:18] LABS: Albumin Globulin Ratio 1.3 (0.9-2); Albumin Level 4.6 gm/dl (3.4-5.0); BUN Creatinine Ratio 18.8 (10-20); Calcium 10.3 mg/dl (8.6-10.3); Creatinine Clr Calc Pharmacy 60.6 ml/min; Est GFR (African American) 57.6 ml/min; Est GFR (Non-African American) 49.7 ml/min; Globulin 3.6 gm/dl (2.5-4.0); Magnesium 1.5 mg/dl (1.7-2.4); Potassium 3.6 mmol/L (3.5-5.1); Total Protein 8.2 gm/dl (6.0-8.3)
[2024-03-15 19:24] LABS: Troponin I High Sensitivity 16.3 pg/ml (0-14)
[2024-03-15 19:48] LABS: Adenovirus PCR Not Detected (NotDetected); Bordetella parapertussis PCR Not Detected (NotDetected); Bordetella pertussis PCR Not Detected (NotDetected); Chlamydia pneumoniae PCR Not Detected (NotDetected); Coronavirus 229E PCR Not Detected (NotDetected); Coronavirus CoV-2 (COVID19)PCR Not Detected (NotDetected); Coronavirus HKU1 PCR Not Detected (NotDetected); Coronavirus NL63 PCR Not Detected (NotDetected); Coronavirus OC43PCR Not Detected (NotDetected); Human Metapneumovirus PCR Not Detected (NotDetected); Influenza A PCR Not Detected (NotDetected); Influenza B PCR Not Detected (NotDetected); Mycoplasma pneumoniae PCR Not Detected (NotDetected); Parainfluenza Virus 1 PCR Not Detected (NotDetected); Parainfluenza Virus 2 PCR Not Detected (NotDetected); Parainfluenza Virus 3 PCR Not Detected (NotDetected); Parainfluenza Virus 4 PCR Not Detected (NotDetected); Respiratory Syncytial VirusPCR Not Detected (NotDetected); Rhinovirus/Enterovirus PCR Not Detected (NotDetected)
--- NOTE | 2024-03-15 19:50 | History & Physical Report ---
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 Acute on chronic hypoxic respiratory failure Concern O2 concentrator was not working and O2 level was found to be in 50s today Denies any recent F/C, URI or productive sputum typical of a typical flair Viral resp panel negative, procal WNL, CXR with persistent interstitial thickening and alveolar opacities. These findings are age indeterminate and could reflect chronic lung disease Given 60mg IV solu-medrol in ED - will hold off on additional steroids or abx at this time given likely mechanical issue as above Initial VBG with pH 7.29, pCO2 82 Tolerating bipap without issue Repeat VBG at 2200 Routine pulm consult ILD Pulm HTN Follows with [facility], intermittently with [facility] pulm Continue home inhalers Baseline O2 is 4-5 L NC at rest and up to 10 L during exertion. HFpEF Appears euvolemic Continue home Bumex 2mg PO BID Low sodium diet H/o hemolytic anemia Hgb 9.3 (baseline 9-10). On prednisone taper per Dr. Marion, maintained at 10mg daily. Continue Paroxysmal atrial fibrillation Continue sotalol BID, not on anticoagulation due to h/o GI bleed Mood disorder Continue Zoloft, Ativan BID SSS S/p pacemaker placement NAFLD cirrhosis Appears compensated, continue low sodium diet CKD III Cr at baseline ~0.9-1.0. Continue to monitor with daily BMP BERRY Intolerant to CPAP, uses supplemental O2 at home. Continue bipap for now Hx of ESBL E coli UTI Continue Fosfomycin suppression qweekly (takes on Sundays) Hypomagnesemia Mg 1.5. Replacing Prediabetes A1c 6.1 in 2022, repeat in AM BSG elevated at 273 SSI while in-patient BSG AC HS DVT Ppx: SQ heparin (monitor with plt count 115) Code status: FULL PCP: Christoph Dispo: Admitted to med/tele History of Present Illness Chief Complaint: hypoxia Primary Care Provider: Kat Hawthorne DO This is a 68yo F with a PMH of ILD, pulm HTN, chronic hypoxic respiratory failure normally on 4-5L NC O2 at baseline, tachy-lakeisha syndrome s/p pacemaker placement, WEIR liver cirrhosis, HFpEF, HTN, paroxysmal atrial fibrillation not on anticoagulation due to chronic anemia, morbid obesity, CKD III and other prob lems listed below who presents with hypoxia from home. Was feeling well earlier until she got out of the shower and felt weak. Concerned that something could be wrong with her oxygen machine because she did not feel the typical air flow. She checked her machine and saw she was in 50s. Brought in by EMS for further evaluation and is now saturating at 95% on 8 L with oxymask. Denies any recent F/C or URI. Does not feel like a prior pneumonitis flair. Has been feeling well until today. No lightheadedness, CP, SOB, N/V, abd pain, dysuria, diarrhea or constipation. Follows with ILD clinic with Krysten. Has been tapered down to prednisone 10mg daily. Allergies Allergy/AdvReac Type Severity Reaction Status Date / Time levofloxacin Allergy Intermediate LE Verified 03/15/24 20:04 swelling and blistering paclitaxel [From Taxol] Allergy Intermediate facial Verified 03/15/24 20:04 flushing, bradycardia doxorubicin AdvReac Severe Hypoxia Verified 03/15/24 20:04 clindamycin AdvReac Intermediate PT Verified 03/15/24 20:04 CONTRACTED C-DIFF shellfish derived AdvReac Intermediate NAUSEA,DIARRHEA, Verified 03/15/24 20:04 VOMITING adhesive AdvReac Mild SKIN Verified 03/15/24 20:04 BLISTERS SOME TIMES Home Medications Medication Instructions Recorded Confirmed Type lorazepam 0.5 mg tablet 0.5 mg PO BID Anxiety 10/18/18 03/15/24 History sertraline 100 mg tablet (Zoloft) 100 mg PO QAM 10/18/18 03/15/24 History cyclobenzaprine 5 mg tablet 5 mg PO BID PRN Muscle Spasm 08/25/19 03/15/24 History omeprazole 20 mg capsule,delayed 20 mg PO BID 04/12/20 03/15/24 History release folic acid 1 mg tablet 1 mg PO QAM 05/08/20 03/15/24 History sotalol 80 mg tablet 80 mg PO BID 10/01/20 03/15/24 History cholecalciferol (vitamin D3) 50 2,000 unit PO QAM #90 tabs 04/09/21 03/15/24 Rx mcg (2,000 unit) tablet loratadine 10 mg tablet (Claritin) 10 mg PO QAM 09/18/22 03/15/24 History acetaminophen 325 mg tablet 325 mg PO DIRECTED PRN 02/27/23 03/15/24 History (Tylenol) PAIN/FEVER albuterol sulfate 90 mcg/actuation 2 puff inhalation Q4H PRN Wheezing 02/27/23 03/15/24 History aerosol inhaler docusate sodium 100 mg capsule 100 mg PO BID 02/27/23 03/15/24 History (Stool Softener) fluoride (sodium) 1.1 % dental 1 applic dental BID 02/27/23 03/15/24 History cream (SF 5000 Plus) hydroxyzine HCl 25 mg tablet 25 mg PO HS PRN Itching 02/27/23 03/15/24 History gabapentin 300 mg capsule 300 mg PO TID 06/17/23 03/15/24 History amlodipine 5 mg tablet (Norvasc) 5 mg PO QAM #30 tabs 06/22/23 03/15/24 Rx montelukast 10 mg tablet 10 mg PO QAM 07/22/23 03/15/24 History fosfomycin tromethamine 3 gram 3 g PO FARMER@0900 07/31/23 03/15/24 History oral packet Portable Oxygen E0431 12/24/23 03/15/24 History amoxicillin 500 mg capsule 2,000 mg PO DIRECTED PRN 1 HR 03/15/24 03/15/24 History PRIOR TO DENTAL APPT. bumetanide 2 mg tablet 2 mg PO BID 03/15/24 03/15/24 History ipratropium 0.5 mg-albuterol 3 mg 3 ml NEB Q6H PRN shortness of 03/15/24 03/15/24 History (2.5 mg base)/3 mL nebulization breath soln nystatin 100,000 unit/gram topical 1 applic topical TID PRN SKIN 03/15/24 03/15/24 History powder IRRITATION, UNDER BREASTS, ABD FOLDS prednisone 10 mg tablet 10 mg PO DAILY 03/15/24 03/15/24 History Past Med/Surg History Medical History (Updated 03/15/24 @ 20:48 by Marii Lawler PA-C) Mood disorder Hemolytic anemia Pulmonary HTN Paroxysmal atrial fibrillation Supracondylar fracture of right femur Choledocholithiasis with obstruction S/p ERCP with stent placement on 01/20/23 Liver cirrhosis secondary to WEIR Obesity (BMI 30-39.9) Chronic hypoxemic respiratory failure Interstitial lung disease Sick sinus syndrome Chronic right-sided HF (heart failure) Likely per cardio secondary to obesity hypo ventilatory syndrome/Pickwickian Ovarian cancer dx'd 07/2020 - surgery + chemo Osteoarthritis Anxiety and depression Restless leg syndrome History of kidney stones Pacemaker IMPLANTED APRIL 2020 FOR A-FIB/TACHY-LAKEISHA SYNDROME (FOLLOWS WITH DR. WELSH). 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 Lepe HTN (hypertension) GERD (gastroesophageal reflux disease) Depression Ventral hernia Surgical History S/P left knee arthroscopy History of vascular access device removed History of ERCP (~09/2020) History of appendectomy (~09/07/20) History of total hysterectomy with bilateral salpingo-oophorectomy (BSO) (~09/07/20) @ [facility] [place] at same time History of esophagogastroduodenoscopy (EGD) History of colonoscopy [place] teeth removed History of lithotripsy History of arthroscopy LEFT KNEE History of tonsillectomy History of herniorrhaphy VENTRAL HERNIA REPAIR= 04/27/17= GRADE VIEW 2, CLEMENTE#2, ETT 7.0 AT [facility] S/P adenoidectomy H/O arthroscopy of knee H/O gastric bypass "1980, reversed in same year" H/O cystoscopy Family History Mother Scleroderma Lupus Family history of reaction to anesthesia nausea Father Coronary heart disease Heart disease Brother Fatty liver Aunt Cancer unspecified Grandfather (Paternal) Heart disease Grandfather (Maternal) Lung disease Grandmother (Paternal) Stroke Grandmother (Maternal) Family history of diabetes mellitus Social History Smoking Status: Former smoker Tobacco Type: Cigarettes Age Started Using Tobacco: 26; Age Quit Using Tobacco: 38; Cigarettes Per Day: couple cigs on weekends in ; Second Hand Exposure: Yes; Do You Dip or Chew Tobacco: No; Hx Alcohol Use: No Hx Substance Use: No Preferred Language: Korean Communication Ability: Effective Visual Impairment: No Limitations 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 Physical Exam Physical Exam: Please see Dr. Luke' addendum for physical exam. Results & Data Results & Data Vital Signs (Past 12 Hours) Vital Signs Temp Pulse Resp BP BP Pulse Ox O2 Del Method 03/15/24 18:48 36.5 C 03/15/24 18:43 90 03/15/24 18:14 95 Oxymask 03/15/24 18:14 24 159/88 H 95 Oxymask 03/15/24 18:14 Non-rebreather 03/15/24 18:14 93 H 26 H 137/67 55 L Room Air O2 Flow Rate 03/15/24 18:48 03/15/24 18:43 03/15/24 18:14 8 03/15/24 18:14 8 03/15/24 18:14 10 03/15/24 18:14 Laboratory Results Short CBC 03/15/24 Range/Units 18:31 WBC 8.12 (4.8-10.8) K/ul Hgb 9.3 L (12.0-16.0) g/dl Hct 31.4 L (37.0-47.0) % Plt Count 115 L (130-400) K/uL BMP 03/15/24 18:31 Sodium 140 Potassium 3.6 Chloride 92 L Carbon Dioxide 39 H BUN 21 Creatinine 1.12 Glucose 273 H Calcium 10.3 Liver Function 03/15/24 Range/Units 18:31 Total Bilirubin 1.0 (0.2-1.0) mg/dl AST 46 H (13-39) U/L ALT 52 (7-52) U/L Alkaline Phosphatase 83 (34-104) U/L Albumin 4.6 (3.4-5.0) gm/dl Diagnostic Findings Chest X-Ray 03/15/24 18:14 XR chest 1V portable CLINICAL HISTORY: Dyspnea. COMPARISON STUDY: Chest CT July 22, 2023. Chest radiograph October 07, 2023. FINDINGS: Left subclavian pacer is in place. Low lung volumes are unchanged. Cardiomediastinal silhouette is stable. Patient is rotated. Interstitial thickening and alveolar opacities appear similar to prior exam. There is no pneumothorax or pleural effusion. IMPRESSION: 1. Persistent interstitial thickening and alveolar opacities. These findings are age indeterminate and could reflect chronic lung disease. However, a superimposed infectious process would be difficult to exclude. 2. Low lung volumes, unchanged. ACT 112: Negative or not required by law. Electronically signed by: rPo Joya M.D. 03/15/2024 6:57 PM Supervising Physician Co-Signing Physician Notes I have seen and discussed the case with the collaborating advanced practitioner. I agree with the above H&P. I have reviewed and confirmed the patients medical history, the findings on physical examination, and the patients diagnosis and treatment plan with Bucky MORAN and agree with the information documented. In short, Ms Bah is a 68 year old woman with multiple comorbidites including chronic hypoxic resp failure and hypersensitivity pneumonitis who is admitted for acute on chronic hypoxic/hypercapnic resp failure. Patient reports issue with O2 compressor, noting "less flow" recently despite being set on her 4-6L--she then attempted to shower, but felt worsening exertional dyspnea and was noted to be hypoxic to 50% and despite adjusting her concentrator she didn't feel like she was getting enough oxygen She denies fevers cough chills sputum production wheezing or other acute symptoms GENERAL APPEARANCE: AxOx4, on BIPAP HEENT: NC, AT. MMM. EOMI, clear conjunctiva, oropharynx clear. NECK: No stiffness or restricted ROM. HEART: Normal rate and regular rhythm, NAOMI++ LUNGS: CTAB, fin crackles L>R ABDOMEN: Soft, nontender, nondistended with good bowel sounds heard. BACK: No CVAT, no obvious deformity. EXTREMITIES: Without cyanosis, clubbing or edema. NEUROLOGICAL: Grossly nonfocal. Alert and oriented, moving all 4 extremities. CN not formally tested but appear grossly intact. Skin: wound on left lower extremity, appears to be healing with no sign of superimposed infection (comparison made by picture in EMR link from ID visit) #Acute on chronic hypoxia/hypercapnia #ILD/hypersensitivity pneumonitis diagnosed 2016 baseline level roughly 4-6L, reports feeling like "air" not flowing like it usually does - recently tapered the dose of prednisone to 10 mg (on chronic pred 2/2 hemolytic anemia); discontinued PJP prophylaxis recently - continue O2 supplementation 4-6 L at rest. Oxymizer use and 10 L during exertion. Repeat VBG Continue Bipap Hold on further steroids/abx given likely issue with device malfunction v exacerbation/pna #Paroxysmal atrial fibrillation/flutter with tachybrady syndrome S/P pacemaker implantation 04/2020. -Stopped coumadin due to anemia and bleeding intolerances. -Continue sotalol. Stable cardiac symptoms. #elevated trop likely demand iso hypoxia trend trop to peak, EKG #Chronic anemia, acquired hemolytic anemia #history of ovarian cancer - stable. Follows closely with hematology. #Morbid obesity with obstructive sleep apnea. Continue bipap #Hyperglycemia SSI, A1C #Hx of ESBL E coli UTI w/ nephrolithiasison fosfomycin suppression qweekly, Sundays Rest of plan as above I spent a total of 35 minutes coordinating, documenting, and providing care for this patient excluding time spent in the performance of separately billed services. All of the aforementioned completed outside of collaborating with the assigned advanced practitioner for a full treatment plan. I have reviewed the advanced practitioner's documentation, and I agree with, and take responsibility for the plan of care (7) HTN (hypertension) Hypertension type: unspecified Qualified Code(s): I10 - Essential (primary) hypertension
[2024-03-15 21:20] LABS: Appearance Urine Clear (Clear); Bacteria Urine Automated None Seen (None Seen); Bilirubin Urine Negative (Negative); Blood Urine Negative (Negative); Cast Urine Automated 0-2 /lpf (0-2); Color Urine Yellow; Epithelial Cell Urine Auto 0-2 /hpf (0-2); Glucose Urine UA Trace (Negative); Ketones Urine Trace (Negative); Leukocyte Esterase Urine 1+ (Negative); Nitrite Urine Negative (Negative); Protein Urine Trace (Negative); RBC Urine Automated 0-2 /hpf (0-2); Specific Gravity Urine 1.015 (1.000-1.030); Urobilinogen Urine Negative (Negative); WBC Urine Automated 21-50 /hpf (0-5); pH Urine 5.5 (4.5-7.5)
[2024-03-15] MEDS: MAGNESIUM SULFATE / D5W 1 GM/100 ML BAG IV SCH (21:48)
[2024-03-15] MEDS: FUROSEMIDE INJ 20 MG/2 ML VIAL IV ONE (22:11)
[2024-03-15] MEDS: POTASSIUM CHLORIDE / WTR 10 MEQ/100 ML PLCT IV SCH (22:11)
[2024-03-15 22:41] LABS: Base Excess ABG 13.5 mEq/L (-9-1.8); HCO3 ABG 41 mmol/L (19-24); Oxygen Saturation ABG 96.1 % (90-95); PCO2 ABG 65 mmHg (35-46); PO2 ABG 90 mmHg (80-95); pH ABG 7.41 (7.35-7.45)
[2024-03-15 22:44] LABS: Allen Test Pos (Pos)
[2024-03-15] MEDS: ALBUT/IPRATROP 3MG/0.5MG NEB 3 ML VIAL NEB STA (22:54)
[2024-03-16] MEDS ORDERED: CYCLOBENZAPRINE HCL 5 MG TAB PO PRN (00:04)
[2024-03-16] MEDS ORDERED: NYSTATIN POWDER 15GM BTL EXT PRN (00:04)
[2024-03-16] MEDS ORDERED: POLYETHYLENE (MIRALAX) 17 GM PACK PO PRN (00:04)
[2024-03-16] MEDS ORDERED: ALBUT/IPRATROP 3MG/0.5MG NEB 3 ML VIAL NEB PRN (00:04)
[2024-03-16] MEDS ORDERED: hydrOXYzine HCl 25 MG TAB PO PRN (00:04)
[2024-03-16] MEDS ORDERED: FLUORIDE DT SCH (00:04)
[2024-03-16] MEDS ORDERED: GLUCOSE 10 TAB/TUBE PO PRN (00:04)
[2024-03-16] MEDS ORDERED: CARBOHYDRATES FOR HYPOGLYCEMIA PO PRN (00:04)
[2024-03-16] MEDS ORDERED: DEXTROSE 50% 50 ML SYRINGE IV PRN (00:04)
[2024-03-16] MEDS ORDERED: ALBUTEROL HFA 8 GM INHALER INH PRN (00:04)
[2024-03-16] MEDS ORDERED: ONDANSETRON INJ 2 MG/ML 2 ML VIAL IV PRN (00:04)
[2024-03-16] MEDS ORDERED: GLUCOSE 40% GEL 15 GM TUBE PO PRN (00:04)
[2024-03-16] MEDS ORDERED: GLUCAGON FOR INJ 1 MG VIAL SQ PRN (00:04)
[2024-03-16] MEDS: PANTOprazole 40 MG TAB PO SCH (00:51)
[2024-03-16] MEDS: BUMETANIDE 1 MG TAB PO SCH (00:51)
[2024-03-16] MEDS: DOCUSATE SODIUM 100 MG CAP PO SCH (00:51)
[2024-03-16] MEDS: LORazepam 0.5 MG TAB PO SCH (01:25)
[2024-03-16] MEDS: SOTALOL HCL 80 MG TAB PO SCH (01:25)
[2024-03-16] MEDS: GABAPENTIN 300 MG CAP PO SCH (01:25)
[2024-03-16 06:28] LABS: Base Excess VBG 15.5 mEq/L; HCO3 VBG 44 mmol/L; Oxygen Saturation VBG 70.4 %; PCO2 VBG 71 mmHg (38-50); PO2 VBG 42 mmHg
[2024-03-16 07:10] LABS: Calcium 9.1 mg/dl (8.6-10.3)
[2024-03-16 07:17] LABS: Hematocrit (blood only) 26.7 % (37.0-47.0); Hemoglobin 8.3 g/dl (12.0-16.0); Mean Corpuscular Hemoglobin 28.6 pg (25.0-34.0); Mean Corpuscular Hgb Conc 31.1 g/dL (32.0-36.0); Mean Corpuscular Volume 92.1 fL (80.0-100.0); Mean Platelet Volume 10.7 fL (9.4-12.4); Nucleated RBC # (auto) 0.05 K/uL (0.00-0.12); Nucleated RBC % (auto) 0.9 %; Platelet Count 104 K/uL (130-400); RDW Coefficient of Variation 19.4 % (11.5-14.5); RDW Standard Deviation 65.4 fL (36.4-46.3); White Blood Count 5.76 K/ul (4.8-10.8)
[2024-03-16 07:28] LABS: BUN Creatinine Ratio 22.4 (10-20); Creatinine Clr Calc Pharmacy 69.3 ml/min; Est GFR (African American) 67.7 ml/min; Est GFR (Non-African American) 58.4 ml/min
[2024-03-16] MEDS ORDERED: PHARMACY GLYCEMIC MGMT CONSULT PRN (07:44)
[2024-03-16 07:51] LABS: Estimated Average Glucose 151 mg/dl; Hemoglobin A1C 6.9 % (4.5-5.6)
--- NOTE | 2024-03-16 08:25 | Pulmonary Consultation ---
Date of Consultation March 16, 2024 Assessment & Plan (1) Acute on chronic respiratory failure with hypoxia: (2) Acute respiratory failure with hypoxia and hypercapnia: (3) Hypersensitivity pneumonitis: (4) Chronic hypoxemic respiratory failure: (5) BERRY (obstructive sleep apnea): (6) Pulmonary HTN: (7) Steroid dependent: Plan IMPRESSION: 68-year-old female with a significant pulmonary history of hypersensitivity pneumonitis, chronic respiratory failure with hypoxia, chronic hypercapnic respiratory failure, pulmonary hypertension obstructive sleep apnea not currently treated with CPAP therapy, chronic steroid therapy, and obesity who presents in the setting of acute hypoxic respiratory failure with hypercapnia. RECOMMENDATIONS: 1. Acute on chronic respiratory failure with hypoxia and hypercapnia - Patient at her typical state of health up until 2 hours prior to arrival when she noticed a sensation of lightheadedness and checked her pulse ox which was found to be in the 50s. Uncertain if this is all driven by machine malfunction. She was cyanotic when she contacted EMS. She had no precipitating upper respiratory symptoms. No fever or chills. Procalcitonin not elevated. She has had no new or worsening cough symptoms are productive cough otherwise. No chest pain or pleuritic discomfort. Largely related to her past medical history of interstitial lung disease. Additionally, the patient has chronic hypercapnia which is likely contributing to her degree of hypoxia as well. Review of her chest films demonstrates no new or worsening infiltrative processes. She does have some LEFT greater than right pretibial edema. For the sake of completion and the complicated 68-year-old female worsening hypoxia abruptly, low threshold for CTA to evaluate thromboembolic process contributing. Would consider follow- up echocardiogram, however we know the patient has significant pulmonary hypertension which likely would not show any immediately helpful findings to predict PE process. Continue to wean down supplemental oxygen to her baseline 4 to 5 L at rest as tolerated. Patient would benefit from AVAPS at night given her degree of hypercapnia, degree of interstitial lung disease, and worsening hypoxia. We did have a lengthy discussion about this and she reports that this was discussed during her last visit at the ILD clinic. She is open to having this ordered. Due to chronic respiratory failure consequent to ILD, patient now requires a noninvasive home ventilator. Bilevel therapy with and without a rate would be ineffective as patient requires a volume targeted mode. Ventilation is required to decrease work of breathing and improve pulmonary status. Interruption of ventilator support would lead to decline of health status. [facility] be AVAPS-AE; Breath rate: auto; Inspiratory time:auto; Sigh: off; PS min: 5; PS max 25; EPAP min: 5; EPAP max: 20; AVAPS rate: 16 During sleep and as needed Patient is suffering from chronic respiratory failure due to restriction of the thoracic cage due to morbid obesity. Patient requires the use of noninvasive ventilation for recurrent hypercapnic respiratory failure with a PaCO2 of 82. Patient requires ventilation at pressures greater than 30mmHg to maintain achieve appropriate tidal volumes sufficient to provide oxygenation and ventilation. Traditional bilevel devices, which were tried and failed, will only provide a total airway max pressure of 30 mmHg therefore bilevel is an ineffective device for the patient. 2. Hypersensitivity pneumonitis - As previously diagnosed. She currently follows with the ILD clinic at [facility]. She has been titrated down from high- dose oral steroids. She is currently on 10 mg a day. She is off of her PJP prophylaxis at this point. Review of chest films demonstrates no acute infiltrative changes. Uncertain if decline in her steroid dosing contributed. Consideration for temporary burst course of prednisone in the interim until she is able to follow-up with her ILD specialists. 3. Obstructive sleep apnea - Previously reluctant to utilize CPAP. She is agreeable to AVAPS device. Can be arranged while inpatient. Can be arranged by primary service. 4. Pulmonary hypertension - Likely representing WHO group 2-3 in the setting of chronic hypertension, hypoxia, and interstitial lung disease. Continue with patient's daily diuresis. Would make more sense for the patient or on the dry side. 5. Steroid dependence - In the setting of hypersensitivity pneumonitis treatment. Chest imaging does not appear to demonstrate any adventitious like infections, however this is certainly something that patient is prone to. Thank you for allowing us to participate in the care of this pleasant patient. Pulmonary medicine will continue to follow along. Supervising Physician Co-Signing Physician Notes Patient seen and examined. EMR reviewed. Discussed with MARCIAL. Agree with assessment plan as noted. Patient with interstitial lung disease and chronic hypoxemic hypercarbic respiratory failure. She is improved clinically. Unclear if this is steroids or application of noninvasive positive pressure ventilation but she is back to her baseline oxygen requirement. Her x-ray does not look significantly different. At this point time I think transitioning her to oral prednisone with plans for rapid taper back to her baseline dose and setting her up for trilogy noninvasive nocturnal ventilator as well as assessing her oxygen concentrator at home would be appropriate. Will see if we can transition her to sitting in a chair. She is wheelchair dependent at baseline. If she does well, we may be able to transition her out of the hospital in short order. The above recommendations and plan were discussed with the patient at the bedside. Questions were answered to the best my ability. She expressed understanding and is in agreement with plan as outlined History of Present Illness Reason for Consultation: h/o ILD on 4-5L O2, acute on chronic resp failure Requesting Physician: Marii Lawler PA-C Attending Physician: Nixon Sherman MD History of Present Illness Patient is a 68-year-old female with a significant past medical history of hypersensitivity pneumonitis, chronic hypoxemic respiratory failure on 4 to 5 L nasal cannula at all times, BERRY unable to tolerate CPAP, pulmonary hypertension, CHF, obesity, and steroid dependence is managed primarily at the [facility] ILD clinic. She has recently been tapered down off an extensive course of steroids starting at 60 mg daily. She is currently at 10 mg daily. She is off of her PJP prophylaxis as of last week. Patient reports that she had been feeling her typical state of health yesterday, but during a shower she noticed that she was feeling lightheaded. She walks which was found to be in the 50s. She checked the flow of her oxygen concentrator which seem to be low. Eventually her numbers did improve, however when rechecking her device and changing her tubing, she reports decreased flow from the machine. She applied her portable concentrator and contacted EMS. She received supplemental oxygen in the form of high flow and eventually was transitioned to BiPAP given her elevated CO2 on VBG. She received a one-time dose of intravenous steroids. She wore the BiPAP machine overnight. She does admit that she feels better with the use of the device. She reports no precipitating symptoms of upper respiratory infection including fevers, chills, nasal congestion, cough, etc. She denies complaints of chest pain, palpitations, or hemoptysis. She did recently decrease her dose of prednisone earlier this week to 10 mg. Otherwise, there is been no significant changes in her medications otherwise. Allergies Allergy/AdvReac Type Severity Reaction Status Date / Time levofloxacin Allergy Intermediate LE Verified 03/15/24 20:04 swelling and blistering paclitaxel [From Taxol] Allergy Intermediate facial Verified 03/15/24 20:04 flushing, bradycardia doxorubicin AdvReac Severe Hypoxia Verified 03/15/24 20:04 clindamycin AdvReac Intermediate PT Verified 03/15/24 20:04 CONTRACTED C-DIFF shellfish derived AdvReac Intermediate NAUSEA,DIARRHEA, Verified 03/15/24 20:04 VOMITING adhesive AdvReac Mild SKIN Verified 03/15/24 20:04 BLISTERS SOME TIMES Home Medications Medication Instructions Recorded Confirmed Type lorazepam 0.5 mg tablet 0.5 mg PO BID Anxiety 10/18/18 03/15/24 History sertraline 100 mg tablet (Zoloft) 100 mg PO QAM 10/18/18 03/15/24 History cyclobenzaprine 5 mg tablet 5 mg PO BID PRN Muscle Spasm 08/25/19 03/15/24 History omeprazole 20 mg capsule,delayed 20 mg PO BID 04/12/20 03/15/24 History release folic acid 1 mg tablet 1 mg PO QAM 05/08/20 03/15/24 History sotalol 80 mg tablet 80 mg PO BID 10/01/20 03/15/24 History cholecalciferol (vitamin D3) 50 2,000 unit PO QAM #90 tabs 04/09/21 03/15/24 Rx mcg (2,000 unit) tablet loratadine 10 mg tablet (Claritin) 10 mg PO QAM 09/18/22 03/15/24 History acetaminophen 325 mg tablet 325 mg PO DIRECTED PRN 02/27/23 03/15/24 History (Tylenol) PAIN/FEVER albuterol sulfate 90 mcg/actuation 2 puff inhalation Q4H PRN Wheezing 02/27/23 03/15/24 History aerosol inhaler docusate sodium 100 mg capsule 100 mg PO BID 02/27/23 03/15/24 History (Stool Softener) fluoride (sodium) 1.1 % dental 1 applic dental BID 02/27/23 03/15/24 History cream (SF 5000 Plus) hydroxyzine HCl 25 mg tablet 25 mg PO HS PRN Itching 02/27/23 03/15/24 History gabapentin 300 mg capsule 300 mg PO TID 06/17/23 03/15/24 History amlodipine 5 mg tablet (Norvasc) 5 mg PO QAM #30 tabs 06/22/23 03/15/24 Rx montelukast 10 mg tablet 10 mg PO QAM 07/22/23 03/15/24 History fosfomycin tromethamine 3 gram 3 g PO FARMER@0900 07/31/23 03/15/24 History oral packet Portable Oxygen [id number] 12/24/23 03/15/24 History amoxicillin 500 mg capsule 2,000 mg PO DIRECTED PRN 1 HR 03/15/24 03/15/24 History PRIOR TO DENTAL APPT. bumetanide 2 mg tablet 2 mg PO BID 03/15/24 03/15/24 History ipratropium 0.5 mg-albuterol 3 mg 3 ml NEB Q6H PRN shortness of 03/15/24 03/15/24 History (2.5 mg base)/3 mL nebulization breath soln nystatin 100,000 unit/gram topical 1 applic topical TID PRN SKIN 03/15/24 03/15/24 History powder IRRITATION, UNDER BREASTS, ABD FOLDS prednisone 10 mg tablet 10 mg PO DAILY 03/15/24 03/15/24 History Patient History Medical History (Updated 03/15/24 @ 22:08 by Jeovanny Hale M.D.) Mood disorder Hemolytic anemia Pulmonary HTN Paroxysmal atrial fibrillation Supracondylar fracture of right femur Choledocholithiasis with obstruction S/p ERCP with stent placement on 01/20/23 Liver cirrhosis secondary to WEIR Obesity (BMI 30-39.9) Chronic hypoxemic respiratory failure Interstitial lung disease Sick sinus syndrome Chronic right-sided HF (heart failure) Likely per cardio secondary to obesity hypo ventilatory syndrome/Pickwickian Ovarian cancer dx'd 07/2020 - surgery + chemo Osteoarthritis Anxiety and depression Restless leg syndrome History of kidney stones Pacemaker IMPLANTED APRIL 2020 FOR A-FIB/TACHY-LAKEISHA SYNDROME (FOLLOWS WITH DR. WELSH). 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 Lepe HTN (hypertension) GERD (gastroesophageal reflux disease) Depression Ventral hernia Surgical History S/P left knee arthroscopy History of vascular access device removed History of ERCP (~09/2020) History of appendectomy (~09/07/20) History of total hysterectomy with bilateral salpingo-oophorectomy (BSO) (~09/07/20) @ [facility] [place] at same time History of esophagogastroduodenoscopy (EGD) History of colonoscopy [place] teeth removed History of lithotripsy History of arthroscopy LEFT KNEE History of tonsillectomy History of herniorrhaphy VENTRAL HERNIA REPAIR= 04/27/17= GRADE VIEW 2, CLEMENTE#2, ETT 7.0 AT [facility] S/P adenoidectomy H/O arthroscopy of knee H/O gastric bypass "1980, reversed in same year" H/O cystoscopy Family History Mother Scleroderma Lupus Family history of reaction to anesthesia nausea Father Coronary heart disease Heart disease Brother Fatty liver Aunt Cancer unspecified Grandfather (Paternal) Heart disease Grandfather (Maternal) Lung disease Grandmother (Paternal) Stroke Grandmother (Maternal) Family history of diabetes mellitus Social History Smoking Status: Never smoker Tobacco Type: Cigarettes Age Started Using Tobacco: 26; Age Quit Using Tobacco: 38; Cigarettes Per Day: couple cigs on weekends in ; Second Hand Exposure: Yes; Do You Dip or Chew Tobacco: No; Hx Alcohol Use: No Hx Substance Use: No Preferred Language: Georgian Communication Ability: Effective Visual Impairment: No Limitations Storeroom Clerk Required: No Beliefs That Will Affect Care: None marital status: Current Living Situation: Alone Current Living Situation Comment: home health current occupational status: retired How many Children do You have: 0 Feels Safe at Home: Yes Diet: regular during the past year weight has: remained stable Assistive Devices: BiPap Review of Systems Review of Systems: A complete 10 point review of systems was reviewed with the patient with pertinent positives and negatives as per history of present illness. All else were negative. Physical Exam Physical Exam: VITAL SIGNS - Vital signs and nursing notes were reviewed. GENERAL - 68-year-old female appearing her stated age who is in no acute distress. Communicates well with provider and answers questions appropriately. SKIN - Without rashes or lesions. Thinning of the skin with multiple ecchymotic areas. NOSE - Midline and without cyanosis. MOUTH/OROPHARYNX - Without perioral cyanosis. NECK - Neck with FROM. LUNGS - Auscultation reveals diffuse crackles throughout the posterior lung alexander. CARDIAC - RRR with S1/S2. No murmur, rubs, or gallops appreciated. ABDOMEN - Abdominal inspection demonstrates an obese abdomen. BS normoactive all four quadrants. No tenderness, palpable masses, or ascites noted. EXTREMITIES - Nail clubbing not present. No peripheral cyanosis. Bilateral pretibial edema present. +3/5 radial palpated throughout. PSYCH - A&Ox3 and cooperates fully with examiner. Pt is very pleasant and interacts well with examiner. Results & Data Results & Data Vital Signs (Past 12 Hours) Vital Signs Temp Pulse Pulse Resp BP BP Pulse Ox 03/16/24 07:20 67 03/16/24 03:39 75 22 93 03/16/24 03:37 03/16/24 03:30 36.4 C L 72 18 155/90 H 93 03/16/24 02:19 67 03/16/24 02:00 67 22 129/66 96 03/16/24 01:30 68 22 126/71 98 03/16/24 01:00 69 20 160/76 H 95 03/16/24 00:41 03/16/24 00:31 03/16/24 00:30 67 22 126/67 94 03/16/24 00:00 68 22 129/71 94 03/15/24 23:30 68 24 142/77 H 96 03/15/24 22:56 71 20 03/15/24 22:39 70 03/15/24 22:30 71 19 94 03/15/24 22:30 147/74 H 03/15/24 22:10 74 18 94 03/15/24 22:00 149/84 H 03/15/24 22:00 73 18 94 03/15/24 21:42 76 20 146/79 H 92 03/15/24 21:30 74 22 146/76 H 96 03/15/24 20:28 75 22 143/70 H 95 Pulse Ox O2 Del Method O2 Del Method FiO2 03/16/24 07:20 03/16/24 03:39 35 03/16/24 03:37 BiPAP 35 03/16/24 03:30 BiPAP 35 03/16/24 02:19 03/16/24 02:00 BiPAP 45 03/16/24 01:30 BiPAP 45 03/16/24 01:00 BiPAP 45 03/16/24 00:41 94 BiPAP 03/16/24 00:31 BiPAP 03/16/24 00:30 BiPAP 45 03/16/24 00:00 BiPAP 45 03/15/24 23:30 BiPAP 45 03/15/24 22:56 BiPAP 45 03/15/24 22:39 03/15/24 22:30 03/15/24 22:30 03/15/24 22:10 45 03/15/24 22:00 03/15/24 22:00 03/15/24 21:42 BiPAP 03/15/24 21:30 03/15/24 20:28 BiPAP PG Care Time/CCT Total # of Minutes Spent Total Time Spent with Patient: Total time spent is greater than 50% in coordination of care (as documented) at patient's floor/unit and/or counseling patient: Coding Level of Care Code 89435 INT INP/OBS CARE 3/75MIN Diagnoses Acute on chronic respiratory failure with hypoxia J96.21 Acute respiratory failure with hypoxia and hypercapnia J96.01; J96.02 Hypersensitivity pneumonitis J67.9 Chronic hypoxemic respiratory failure J96.11 BERRY (obstructive sleep apnea) G47.33 Pulmonary HTN I27.20 Steroid dependent F19.20
[2024-03-16] MEDS: INSULIN ASPART PER UNIT CHARGE SC SCH (08:30)
[2024-03-16] MEDS: LANTUS PER UNIT CHARGE SC STA (08:31)
[2024-03-16] MEDS: CHOLECALCIFEROL 25 MCG (1000 UNITS) TAB PO SCH (08:32)
[2024-03-16] MEDS: MONTELUKAST SODIUM 10 MG TABLET PO SCH (08:32)
[2024-03-16] MEDS: amLODIPine BESYLATE 5 MG TAB PO SCH (08:32)
[2024-03-16] MEDS: FOLIC ACID 1 MG TAB PO SCH (08:32)
[2024-03-16] MEDS: predniSONE 10 MG TABLET PO SCH (08:33)
[2024-03-16] MEDS: SERTRALINE HCL 100 MG TABLET PO SCH (08:35)
[2024-03-16] MEDS: HEPARIN SOD 5,000 UNIT/0.5 ML VIAL SQ SCH (08:35)
[2024-03-16] MEDS: ACETAMINOPHEN 325 MG TAB PO PRN (09:39)
--- NOTE | 2024-03-16 11:35 | Pharmacy Report ---
Pharmacy Glycemic Short Note 2 - Date of Service March 16, 2024 - Glycemic Short BSG Results (Last 24 hours): 03/15/24 03/16/24 03/16/24 18:31 06:10 07:21 Glucose 273 H 304 H* POC Glucose 316 H* 03/16/24 07:22 Glucose POC Glucose 330 H* OUTPATIENT ANTIDIABETIC REGIMEN: * N/A * A1c = 6.9% ASSESSMENT: * Patient admitted for acute hypoxemic, hypercapnic resp failure - possibly secondary to home 02 concentrator malfunction vs worsening of underlying ILD/hypersensitivity pneumonitis/pulm HTN * Patient has been hyperglycemic since admission, BSGs in upper 200s - low 300s. Likely due to stress of illness combined with IV Solu-Medrol admin in the ED yesterday evening. Of note her A1c has been progressively increasing and today's value of 6.9% is consistent with DM. Suspect body habitus combined with chronic steroids has led to worsening glycemic control as outpt. * Will initiate weight based basal/bolus SQ insulin dosing at this time. * Lantus "moderate" dose x 1 dose given this AM, followed by BID scaled dosing this evening as the effects of yesterday's Solu-Medrol dissipate * Novolog doses will also be set at "moderate" stress level to begin. PLAN FOR INPATIENT GLYCEMIC CONTROL: * Hold outpatient oral diabetes medications * Basal insulin * Lantus 20 units SQ x 1, then BID per the following scale: 0 units if BSG less than 110, 10 units if BSG 110-160, 20 units if BSG above 160 * Bolus insulin * NovoLog per scale ACHS or Q6hrs while NPO * Goal Range: Low 120 mg/dL - High 160 mg/dL * Correction Factor: 20 mg/dL/unit * Nutritional / Prandial insulin per carb ratio of 1 unit per 7 grams CHO consumed
--- NOTE | 2024-03-16 15:03 | Hospitalist Progress Note ---
Date of Service March 16, 2024 Assessment & Plan (1) Acute on chronic respiratory failure with hypoxia: (2) Tachy-lakeisha syndrome: (3) Liver cirrhosis secondary to WEIR: (4) Paroxysmal atrial fibrillation: (5) Chronic anemia: (6) Interstitial lung disease: (7) HTN (hypertension): (8) Mood disorder: Plan This is a 68yo F with a PMH of ILD, pulm HTN, chronic hypoxic respiratory failure normally on 4-5L NC O2 at baseline, tachy-lakeisha syndrome s/p pacemaker placement, WEIR liver cirrhosis, HFpEF, HTN, paroxysmal atrial fibrillation not on anticoagulation due to chronic anemia, morbid obesity, CKD III and other problems listed below who presents with hypoxia from home. Acute on chronic hypoxic respiratory failure History of hypersensitivity ILD (pneumonitis) Concern O2 concentrator was not working and O2 level was found to be in 50s Denies any recent F/C, URI or productive sputum typical of a typical flair Viral resp panel negative, Procal WNL, CXR personally reviewed - persistent interstitial thickening and alveolar opacities. These findings are age indeterminate and could reflect chronic lung disease Given 60mg IV solu-medrol in ED - will hold off on additional steroids or abx at this time given likely mechanical issue as above Patient evaluated by pulmonology. Recommend noninvasive home ventilator. Case management on board Oxygen requirement currently at baseline. Continue on prednisone 10 mg once a day. Note from [facility] ILD clinic from February 16 reviewed. HFpEF, compensated Appears euvolemic Continue home Bumex 2mg PO BID Low sodium diet H/o hemolytic anemia Hgb 9.3 (baseline 9-10). On prednisone taper per Dr. Marion, maintained at 10mg daily. Continue Paroxysmal atrial fibrillation Continue sotalol BID, not on anticoagulation due to h/o GI bleed Mood disorder Continue Zoloft, Ativan BID SSS S/p pacemaker placement NAFLD cirrhosis Appears compensated, continue low sodium diet CKD III Cr at baseline ~0.9-1.0. Continue to monitor with daily BMP BERRY Intolerant to CPAP, uses supplemental O2 at home. Continue bipap for now Hx of ESBL E coli UTI Continue Fosfomycin suppression qweekly (takes on Sundays) Type 2 DM HbA1c of 6.9% BSG elevated at 273 SSI while in-patient healthcare educator consulted DVT Ppx: SQ heparin Code status: Conditional PCP: Christoph Dispo: Admitted to med/tele Time spent evaluating patient, direct bedside care, chart review, placing orders, interpretation of diagnostic studies, discussion with consultants, patient, and family members, as well as other required patient management activities is 50 minutes Please note the above document was generated using voice recognition software. It may contain grammatical, syntax or spelling errors. Any formal questions or concerns about the content, text or information contained within the body of this dictation should be directly addressed to the provider for clarification Admission and Anticipated Discharge Date Admission Date: March 15, 2024 Subjective Patient seen and examined at bedside. She is sitting up on the bed comfortably. She is saturating well at 5 L of oxygen. Denies any shortness of breath or discomfort. Review of Systems Review of Systems: All systems reviewed & are unremarkable except as noted in Subjective Physical Exam Physical Exam: Constitutional: Alert oriented x 3; not in distress Respiratory: b/l diffuse crackles heard Cardiovascular: RRR, no murmur, no edema Vessels: no JVD or carotid bruit Chest: normal inspection of chest Abdomen: normal bowel sounds, soft, nontender, no hepatosplenomegaly Musculoskeletal: no cyanosis or clubbing, extremities motor strength 5/5 Skin: no rashes, warm and dry normal turgor Neurologic: PERRL, EOMI, accommodation nl, no face palsy, no dysarthria CN's II- XI intact bilaterally and moves all extremities Psychiatric: A+Ox3, euthymic affect Results & Data Results & Data Vital Signs (Past 12 Hours) Vital Signs Temp Pulse Pulse Resp BP Pulse Ox O2 Del Method 03/16/24 12:26 36.7 C 73 22 124/68 91 Nasal Cannula 03/16/24 08:45 Nasal Cannula 03/16/24 07:50 36.7 C 82 21 159/78 H 88 L Nasal Cannula 03/16/24 07:20 67 03/16/24 03:39 75 22 93 03/16/24 03:37 BiPAP 03/16/24 03:30 36.4 C L 72 18 155/90 H 93 BiPAP O2 Flow Rate FiO2 03/16/24 12:26 5 03/16/24 08:45 5 03/16/24 07:50 5 03/16/24 07:20 03/16/24 03:39 35 03/16/24 03:37 35 03/16/24 03:30 35 (7) HTN (hypertension) Hypertension type: unspecified Qualified Code(s): I10 - Essential (primary) hypertension
[2024-03-16] MEDS: LANTUS PER UNIT CHARGE SC SCH (20:59)
--- NOTE | 2024-03-17 06:13 | Electrocardiogram Report ---
Test Reason : Blood Pressure : / mmHG Vent. Rate : 092 BPM Atrial Rate : 092 BPM P-R Int : 128 ms QRS Dur : 084 ms QT Int : 364 ms P-R-T Axes : 036 -08 075 degrees QTc Int : 450 ms Poor data quality, interpretation may be adversely affected Normal sinus rhythm Left ventricular hypertrophy with repolarization abnormality ( R in aVL , [place] product , Romhilt-E stes ) Abnormal ECG When compared with ECG of 22-JUL-2023 13:00, No significant change Confirmed by Toan Carrion ([id number]) on 03/17/2024 6:12:52 AM Referred By: REFERRED SELF Confirmed By:Toan Carrion
--- NOTE | 2024-03-17 06:17 | Electrocardiogram Report ---
Test Reason : Blood Pressure : / mmHG Vent. Rate : 074 BPM Atrial Rate : 074 BPM P-R Int : 140 ms QRS Dur : 086 ms QT Int : 406 ms P-R-T Axes : 032 -10 074 degrees QTc Int : 450 ms Normal sinus rhythm Left ventricular hypertrophy with repolarization abnormality Abnormal ECG When compared with ECG of 15-MAR-2024 18:12, No significant change was found Confirmed by Toan Carrion ([id number]) on 03/17/2024 6:17:13 AM Referred By: REFERRED SELF Confirmed By:Toan Carrion
[2024-03-17 06:24] LABS: Hematocrit (blood only) 28.2 % (37.0-47.0); Hemoglobin 8.3 g/dl (12.0-16.0); Mean Corpuscular Hemoglobin 27.9 pg (25.0-34.0); Mean Corpuscular Hgb Conc 29.4 g/dL (32.0-36.0); Mean Corpuscular Volume 94.6 fL (80.0-100.0); Mean Platelet Volume 11.2 fL (9.4-12.4); Nucleated RBC # (auto) 0.02 K/uL (0.00-0.12); Nucleated RBC % (auto) 0.3 %; Platelet Count 104 K/uL (130-400); RDW Coefficient of Variation 19.9 % (11.5-14.5); RDW Standard Deviation 68.1 fL (36.4-46.3); Red Blood Count 2.98 M/uL (4.20-5.40); White Blood Count 6.22 K/ul (4.8-10.8)
[2024-03-17 06:49] LABS: BUN Creatinine Ratio 25.7 (10-20); Calcium 8.7 mg/dl (8.6-10.3); Creatinine Clr Calc Pharmacy 59.6 ml/min; Est GFR (Non-African American) 49.2 ml/min; Potassium 3.3 mmol/L (3.5-5.1)
--- NOTE | 2024-03-17 13:22 | Pulmonology Progress Note ---
Date of Service March 17, 2024 Assessment & Plan (1) Acute on chronic respiratory failure with hypoxia: (2) Acute respiratory failure with hypoxia and hypercapnia: (3) Hypersensitivity pneumonitis: (4) Chronic hypoxemic respiratory failure: (5) BERRY (obstructive sleep apnea): (6) Pulmonary HTN: (7) Steroid dependent: Plan IMPRESSION: 68-year-old female with a significant pulmonary history of hypersensitivity pneumonitis, chronic respiratory failure with hypoxia, chronic hypercapnic respiratory failure, pulmonary hypertension obstructive sleep apnea not currently treated with CPAP therapy, chronic steroid therapy, and obesity who presents in the setting of acute hypoxic respiratory failure with hypercapnia. RECOMMENDATIONS: 1. Acute on chronic respiratory failure with hypoxia and hypercapnia -continue oxygen titrated to keep saturations at or around 88 to 90%. Case management is working on ensuring the patient has an appropriate oxygen concentrator at home as well as working on getting her ASV. She can work with the [employer] to find an appropriate mask which will alleviate pressure and skin breakdown over the bridge of her nose. 2. Hypersensitivity pneumonitis - As previously diagnosed. She currently follows with the ILD clinic at [facility]. She has been titrated down from high- dose oral steroids. Her x-ray does not demonstrate any significant progression of interstitial lung disease and I do not think a higher dose of steroids is warranted at this time. Will defer additional immunosuppression to her outpatient ILD service at [facility]. 3. Obstructive sleep apnea -can follow-up with [facility]. 4. Pulmonary hypertension - Likely representing WHO group 2-3 in the setting of chronic hypertension, hypoxia, and interstitial lung disease. Continue with patient's daily diuresis. Would make more sense for the patient or on the dry side. 5. Steroid dependence - In the setting of hypersensitivity pneumonitis treatment. Chest imaging does not appear to demonstrate any adventitious like infections, however this is certainly something that patient is prone to. Thank you for allowing us to participate in the care of this pleasant patient. She appears to be at her pulmonary baseline. Pulmonary will sign off at this point in time. Feel free to contact us with questions or concerns. She can follow-up with her outpatient pulmonary providers in the [email or web address] system. Admission and Anticipated Discharge Date Admission Date: March 15, 2024 Subjective Patient seen and examined. EMR reviewed. The patient is sitting up in a chair. She used ASV last night and states she did reasonably well. She was uncomfortable with the mask as she states it caused some irritation over the bridge of her nose. She is open to using it going forward. Her oxygen is down to her baseline level. She is not coughing or wheezing. Review of Systems 2 Review of Systems: All systems reviewed & are unremarkable except as noted in Subjective Physical Exam 2 Physical Exam: VITAL SIGNS - Vital signs and nursing notes were reviewed. GENERAL - 68-year-old female appearing her stated age who is in no acute distress. Communicates well with provider and answers questions appropriately. SKIN - Without rashes or lesions. Thinning of the skin with multiple ecchymotic areas. NOSE - Midline and without cyanosis. MOUTH/OROPHARYNX - Without perioral cyanosis. NECK - Neck with FROM. LUNGS - Auscultation reveals diffuse crackles throughout the posterior lung alexander. CARDIAC - RRR with S1/S2. No murmur, rubs, or gallops appreciated. ABDOMEN - Abdominal inspection demonstrates an obese abdomen. BS normoactive all four quadrants. No tenderness, palpable masses, or ascites noted. EXTREMITIES - Nail clubbing not present. No peripheral cyanosis. Bilateral pretibial edema present. +3/5 radial palpated throughout. PSYCH - A&Ox3 and cooperates fully with examiner. Pt is very pleasant and interacts well with examiner. Results & Data Results & Data Vital Signs (Past 12 Hours) Vital Signs Temp Pulse Pulse Resp BP Pulse Ox O2 Del Method 03/17/24 11:31 95 03/17/24 11:20 36.6 C 66 19 139/66 96 Nasal Cannula 03/17/24 08:00 High Flow Nasal Cannula 03/17/24 07:25 36.4 C L 64 18 158/80 H 96 CPAP 03/17/24 03:28 37.0 C 65 18 145/82 H 100 CPAP 03/17/24 02:23 63 18 94 O2 Flow Rate 03/17/24 11:31 03/17/24 11:20 6.0 03/17/24 08:00 5 03/17/24 07:25 03/17/24 03:28 03/17/24 02:23 Laboratory Results 03/17/24 05:27 03/17/24 05:27 PG Care Time/CCT Total # of Minutes Spent Total Time Spent with Patient: Total time spent is greater than 50% in coordination of care (as documented) at patient's floor/unit and/or counseling patient: Coding Level of Care Code 88061 SUB INP/OBS CARE 2MIN Diagnoses Acute on chronic respiratory failure with hypoxia J96.21 Acute respiratory failure with hypoxia and hypercapnia J96.01; J96.02 Hypersensitivity pneumonitis J67.9 Chronic hypoxemic respiratory failure J96.11 BERRY (obstructive sleep apnea) G47.33 Pulmonary HTN I27.20 Steroid dependent F19.20
--- NOTE | 2024-03-17 15:20 | Pharmacy Report ---
Pharmacy Glycemic Short Note 2 - Date of Service March 17, 2024 - Glycemic Short BSG Results (Last 24 hours): 03/16/24 03/16/24 03/17/24 16:09 20:42 05:27 Glucose 156 H POC Glucose 165 H 176 H 03/17/24 03/17/24 07:50 12:05 Glucose POC Glucose 159 H 212 H OUTPATIENT ANTIDIABETIC REGIMEN: * N/A * A1c = 6.9% ASSESSMENT: 03/17: * Orin received 73 units of SQ insulin yesterday with significant improvement in glycemic control throughout the day. * 40 units of basal + 33 units of bolus * On prednisone 10 mg PO daily * Fasting BSG of 156 mg/dL this morning. Will continue Lantus dose per scale for another day until basal needs are better known. * Lunch BSG is elevated. Will tighten carb coverage. 03/16: * Patient admitted for acute hypoxemic, hypercapnic resp failure - possibly secondary to home 02 concentrator malfunction vs worsening of underlying ILD/hypersensitivity pneumonitis/pulm HTN * Patient has been hyperglycemic since admission, BSGs in upper 200s - low 300s. Likely due to stress of illness combined with IV Solu-Medrol admin in the ED yesterday evening. Of note her A1c has been progressively increasing and today's value of 6.9% is consistent with DM. Suspect body habitus combined with chronic steroids has led to worsening glycemic control as outpt. * Will initiate weight based basal/bolus SQ insulin dosing at this time. * Lantus "moderate" dose x 1 dose given this AM, followed by BID scaled dosing this evening as the effects of yesterday's Solu-Medrol dissipate * Novolog doses will also be set at "moderate" stress level to begin. PLAN FOR INPATIENT GLYCEMIC CONTROL: * Hold outpatient oral diabetes medications * Basal insulin * Lantus SQ BID: 0 units if BSG less than 110, 10 units if BSG 110-160, 20 units if BSG above 160 * Bolus insulin * NovoLog per scale ACHS or Q6hrs while NPO * Goal Range: Low 120 mg/dL - High 160 mg/dL * Correction Factor: 20 mg/dL/unit * Nutritional / Prandial insulin per carb ratio of 1 unit per 6 grams CHO consumed
--- NOTE | 2024-03-17 16:50 | Hospitalist Progress Note ---
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 Acute on chronic hypoxic respiratory failure History of hypersensitivity ILD (pneumonitis) Concern O2 concentrator was not working and O2 level was found to be in 50s Denies any recent F/C, URI or productive sputum typical of a typical flair Viral resp panel negative, Procal WNL, CXR personally reviewed - persistent interstitial thickening and alveolar opacities. These findings are age indeterminate and could reflect chronic lung disease Given 60mg IV solu-medrol in ED - will hold off on additional steroids or abx at this time given likely mechanical issue as above Patient evaluated by pulmonology. Recommend noninvasive home ventilator. Case management on board Oxygen requirement currently at baseline. Continue on prednisone 10 mg once a day. Note from [facility] ILD clinic from February 16 reviewed. HFpEF, compensated Appears euvolemic Continue home Bumex 2mg PO BID Low sodium diet H/o hemolytic anemia baseline 9-10). On prednisone taper per Dr. Marion, maintained at 10mg daily. Continue Paroxysmal atrial fibrillation Continue sotalol BID, not on anticoagulation due to h/o GI bleed Mood disorder Continue Zoloft, Ativan BID SSS S/p pacemaker placement NAFLD cirrhosis Appears compensated, continue low sodium diet CKD III Cr at baseline ~0.9-1.0. Continue to monitor with daily BMP BERRY Intolerant to CPAP, uses supplemental O2 at home. Continue bipap for now Hx of ESBL E coli UTI Continue Fosfomycin suppression qweekly (takes on Sundays) Type 2 DM HbA1c of 6.9% BSG elevated at 273 SSI while in-patient music educator consulted Discussed lifestyle interventions; Oral hypoglycemic agents could be considered as outpatient DVT Ppx: SQ heparin Code status: Conditional PCP: Chrisotph Dispo: Admitted to med/tele Time spent evaluating patient, direct bedside care, chart review, placing orders, interpretation of diagnostic studies, discussion with consultants, patient, and family members, as well as other required patient management activities is 50 minutes Please note the above document was generated using voice recognition software. It may contain grammatical, syntax or spelling errors. Any formal questions or concerns about the content, text or information contained within the body of this dictation should be directly addressed to the provider for clarification Admission and Anticipated Discharge Date Admission Date: March 15, 2024 Subjective Patient seen and examined at bedside. Comfortable; not in distress. Denies fever, chills, chest pain, shortness of breath, abdominal pain or urinary symptoms. No significant overnight events Review of Systems Review of Systems: All systems reviewed & are unremarkable except as noted in Subjective Physical Exam Physical Exam: Constitutional: Alert oriented x 3; not in distress Respiratory: b/l diffuse crackles heard Cardiovascular: RRR, no murmur, no edema Vessels: no JVD or carotid bruit Chest: normal inspection of chest Abdomen: normal bowel sounds, soft, nontender, no hepatosplenomegaly Musculoskeletal: no cyanosis or clubbing, extremities motor strength 5/5 Skin: no rashes, warm and dry normal turgor Neurologic: PERRL, EOMI, accommodation nl, no face palsy, no dysarthria CN's II- XI intact bilaterally and moves all extremities Psychiatric: A+Ox3, euthymic affect Results & Data Results & Data Vital Signs (Past 12 Hours) Vital Signs Temp Pulse Resp BP Pulse Ox O2 Del Method O2 Flow Rate 03/17/24 11:31 95 03/17/24 11:20 36.6 C 66 19 139/66 96 Nasal Cannula 6.0 03/17/24 08:00 High Flow Nasal Cannula 5 03/17/24 07:25 36.4 C L 64 18 158/80 H 96 CPAP (7) HTN (hypertension) Hypertension type: unspecified Qualified Code(s): I10 - Essential (primary) hypertension
--- NOTE | 2024-03-18 07:55 | Pulmonology Progress Note ---
Date of Service March 18, 2024 Assessment & Plan (1) Acute on chronic respiratory failure with hypoxia: (2) Acute respiratory failure with hypoxia and hypercapnia: (3) Hypersensitivity pneumonitis: (4) Chronic hypoxemic respiratory failure: (5) BERRY (obstructive sleep apnea): (6) Pulmonary HTN: (7) Steroid dependent: Plan IMPRESSION: 68-year-old female with a significant pulmonary history of hypersensitivity pneumonitis, chronic respiratory failure with hypoxia, chronic hypercapnic respiratory failure, pulmonary hypertension obstructive sleep apnea not currently treated with CPAP therapy, chronic steroid therapy, and obesity who presents in the setting of acute hypoxic respiratory failure with hypercapnia. RECOMMENDATIONS: 1. Acute on chronic respiratory failure with hypoxia and hypercapnia - Patient appears to be back at her baseline at this point. She reports feeling much better at this time. Again, goal saturation from 88 to 90%. She should be out of bed and active is much as tolerated. Hopeful for ASV prior to discharge, however if this becomes an issue, consideration for planning this as an outpatient may be appropriate to get the patient out of the hospital sooner. 2. Hypersensitivity pneumonitis - As previously diagnosed. She currently fol lows with the ILD clinic at [facility]. She has been titrated down from high- dose oral steroids. She is currently on 10 mg a day which she can continue. Further adjustments to these medications can be made by her ILD specialists at [place]. 3. Obstructive sleep apnea - Currently trying to obtain ASV. Can be managed by her primary pulmonary services at [place] in the outpatient setting. 4. Pulmonary hypertension - Likely representing WHO group 2-3 in the setting of chronic hypertension, hypoxia, and interstitial lung disease. Continue with patient's daily diuresis. Would make more sense for the patient or on the dry side. 5. Steroid dependence - In the setting of hypersensitivity pneumonitis treatment. Chest imaging does not appear to demonstrate any adventitious like infections, however this is certainly something that patient is prone to. Thank you for allowing us to participate in the care of this pleasant patient. Pulmonary medicine will sign off at this time. Please feel free to reach out to us with any questions or concerns. Admission and Anticipated Discharge Date Admission Date: March 15, 2024 Supervising Physician Co-Signing Physician Notes Seen and examined. Patient doing well. Anticipate discharge today. Home health to set up AVAPS and oxygen. She can follow-up with her [facility] pulmonary team. Pulmonary will sign off. Feel free to contact us with questions Subjective Patient seen and evaluated bedside this morning. She reports that she had a good night sleep despite the pressure across the top of her nose with a sore related to her mask. She does seem to be tolerating well otherwise. She states that she was out of bed most of the day yesterday. She is feeling back to her baseline at this time. She hopes to be discharged home soon. Physical Exam Physical Exam: VITAL SIGNS - Vital signs and nursing notes were reviewed. GENERAL - 68-year-old female appearing her stated age who is in no acute distress. Communicates well with provider and answers questions appropriately. LUNGS - Auscultation reveals diffuse crackles throughout the posterior lung alexander. CARDIAC - RRR with S1/S2. No murmur, rubs, or gallops appreciated. EXTREMITIES - Nail clubbing not present. No peripheral cyanosis. Bilateral pretibial edema present. +3/5 radial palpated throughout. PSYCH - A&Ox3 and cooperates fully with examiner. Pt is very pleasant and interacts well with examiner. Results & Data Results & Data Vital Signs (Past 12 Hours) Vital Signs Temp Pulse Pulse Resp BP Pulse Ox Pulse Ox 03/18/24 04:49 65 03/18/24 03:11 36.8 C 61 18 137/81 90 03/18/24 03:07 66 17 96 03/18/24 00:00 94 03/17/24 23:25 64 18 93 03/17/24 22:47 36.7 C 64 18 148/95 H 96 O2 Del Method O2 Del Method O2 Flow Rate 03/18/24 04:49 03/18/24 03:11 BiPAP 10 03/18/24 03:07 5 03/18/24 00:00 BiPAP 03/17/24 23:25 5 03/17/24 22:47 Nasal Cannula 6 PG Care Time/CCT Total # of Minutes Spent Total Time Spent with Patient: Total time spent is greater than 50% in coordination of care (as documented) at patient's floor/unit and/or counseling patient: Coding Level of Care Code 98707 SUB INP/OBS CARE 2/35MIN Diagnoses Acute on chronic respiratory failure with hypoxia J96.21 Acute respiratory failure with hypoxia and hypercapnia J96.01; J96.02 Hypersensitivity pneumonitis J67.9 Chronic hypoxemic respiratory failure J96.11 BERRY (obstructive sleep apnea) G47.33 Pulmonary HTN I27.20 Steroid dependent F19.20
--- NOTE | 2024-03-18 16:19 | Discharge Summary ---
Date of Service March 18, 2024 Admission HPI Per Admitting Provider This is a 68yo F with a PMH of ILD, pulm HTN, chronic hypoxic respiratory failure normally on 4-5L NC O2 at baseline, tachy-lakeisha syndrome s/p pacemaker placement, WEIR liver cirrhosis, HFpEF, HTN, paroxysmal atrial fibrillation not on anticoagulation due to chronic anemia, morbid obesity, CKD III and other problems listed below who presents with hypoxia from home. Was feeling well earlier until she got out of the shower and felt weak. Concerned that something could be wrong with her oxygen machine because she did not feel the typical air flow. She checked her machine and saw she was in 50s. Brought in by EMS for further evaluation and is now saturating at 95% on 8 L with oxymask. Denies any recent F/C or URI. Does not feel like a prior pneumonitis flair. Has been feeling well until today. No lightheadedness, CP, SOB, N/V, abd pain, dysuria, diarrhea or constipation. Follows with ILD clinic with Krysten. Has been tapered down to prednisone 10mg daily. Admission Exam Per Admitting Provider GENERAL APPEARANCE: AxOx4, on BIPAP HEENT: NC, AT. MMM. EOMI, clear conjunctiva, oropharynx clear. NECK: No stiffness or restricted ROM. HEART: Normal rate and regular rhythm, NAOMI++ LUNGS: CTAB, fin crackles L>R ABDOMEN: Soft, nontender, nondistended with good bowel sounds heard. BACK: No CVAT, no obvious deformity. EXTREMITIES: Without cyanosis, clubbing or edema. NEUROLOGICAL: Grossly nonfocal. Alert and oriented, moving all 4 extremities. CN not formally tested but appear grossly intact. Skin: wound on left lower extremity, appears to be healing with no sign of superimposed infection (comparison made by picture in EMR link from ID visit) Principal Diagnosis Acute on chronic hypoxic respiratory failure History of hypersensitivity ILD (pneumonitis) Discharge Exam Constitutional: Alert oriented x 3; not in distress Respiratory: b/l diffuse crackles heard Cardiovascular: RRR, no murmur, no edema Vessels: no JVD or carotid bruit Chest: normal inspection of chest Abdomen: normal bowel sounds, soft, nontender, no hepatosplenomegaly Musculoskeletal: no cyanosis or clubbing, extremities motor strength 5/5 Skin: no rashes, warm and dry normal turgor Neurologic: PERRL, EOMI, accommodation nl, no face palsy, no dysarthria CN's II- XI intact bilaterally and moves all extremities Psychiatric: A+Ox3, euthymic affect Discharge Data Allergies Allergy/AdvReac Type Severity Reaction Status Date / Time levofloxacin Allergy Intermediate LE Verified 03/15/24 20:04 swelling and blistering paclitaxel [From Taxol] Allergy Intermediate facial Verified 03/15/24 20:04 flushing, bradycardia doxorubicin AdvReac Severe Hypoxia Verified 03/15/24 20:04 clindamycin AdvReac Intermediate PT Verified 03/15/24 20:04 CONTRACTED C-DIFF shellfish derived AdvReac Intermediate NAUSEA,DIARRHEA, Verified 03/15/24 20:04 VOMITING adhesive AdvReac Mild SKIN Verified 03/15/24 20:04 BLISTERS SOME TIMES Consultations 03/15/24 19:49 ED Decision to Admit Stat 03/16/24 07:00 Consult Pulmonology Routine Diabetes Follow up Diabetes Follow-up Needed for Newly Diagnosed Diabetes Hospital Course (1) Acute on chronic respiratory failure with hypoxia: (2) Tachy-lakeisha syndrome: (3) Liver cirrhosis secondary to WEIR: (4) Paroxysmal atrial fibrillation: (5) Chronic anemia: (6) Interstitial lung disease: (7) HTN (hypertension): (8) Mood disorder: Plan This is a 68yo F with a PMH of ILD, pulm HTN, chronic hypoxic respiratory failure normally on 4-5L NC O2 at baseline, tachy-lakeisha syndrome s/p pacemaker placement, WEIR liver cirrhosis, HFpEF, HTN, paroxysmal atrial fibrillation not on anticoagulation due to chronic anemia, morbid obesity, CKD III and other problems listed below who presents with hypoxia from home. Acute on chronic hypoxic respiratory failure History of hypersensitivity ILD (pneumonitis) Concern O2 concentrator was not working and O2 level was found to be in 50s Denies any recent F/C, URI or productive sputum typical of a typical flair Viral resp panel negative, Procal WNL, CXR personally reviewed - persistent interstitial thickening and alveolar opacities. These findings are age indeterminate and could reflect chronic lung disease Patient evaluated by pulmonology. Recommend noninvasive home ventilator. Noninvasive home ventilator was arranged by case management along with arrangement of oxygen concentrator. Patient was discharged home with her brother No medication changes were done at discharge Type 2 DM HbA1c of 6.9% BSG elevated at 273 SSI while in-patient public health educator consulted Discussed lifestyle interventions; Oral hypoglycemic agents could be considered as outpatient when she follows up with her primary care doctor Please note the above document was generated using voice recognition software. It may contain grammatical, syntax or spelling errors. Any formal questions or concerns about the content, text or information contained within the body of this dictation should be directly addressed to the provider for clarification Total Time Total Time Spent Total Time Spent (In Minutes): 35 Total Time Includes: Examination of the Patient, Discharge Planning, Medication Reconciliation, Communication With Other Providers and Other Discharge Plan Discharge Items Patient Disposition: Home - Self-Care Reason For Visit: HYPOXIA Discharge Diagnosis: Acute on chronic hypoxic respiratory failure History of hypersensitivity ILD (pneumonitis) Activity: Resume your previous activity Non-emergency contact: Primary Care Provider Call non-emergency contact if: you have any medication questions and your symptoms worsen Follow-up/Referrals: Kat Hawthorne DO [Primary Care Provider] - (Date & Time 03/21/2024 11:10 AM Provider Kat Hawthorne DO Department [facility] ) Diet: Regular Addtl Attending Provider Instructions: You were admitted to the hospital due to low oxygen level likely due to faulty oxygen concentrator. You were evaluated by pulmonology during the hospitalization. They recommend breathing machine to be used at home to help with your breathing. Please follow-up with your primary care doctor as scheduled. Please follow-up with your Pulmonology doctor as well Pending Studies at Discharge: No Stand-Alone Forms: My [facility] [employer], Smoking Cessation Medications and DC Order Prescriptions: Continued cholecalciferol (vitamin D3) 50 mcg (2,000 unit) tablet 2,000 unit PO QAM Qty: 90 3RF omeprazole 20 mg capsule,delayed release(DR/EC) 20 mg PO BID (DME) Portable Oxygen E0431 Misc See Rx Instructions .Route Rx Instructions: 3lpm via nasal cannula. Test for portability (POC)-4lpm at rest and 6lpm with activity sertraline [Zoloft] 100 mg Tablet 100 mg PO QAM lorazepam 0.5 mg Tablet 0.5 mg PO BID Rx Instructions: takes twice a day folic acid 1 mg Tablet 1 mg PO QAM sotalol 80 mg tablet 80 mg PO BID cyclobenzaprine 5 mg tablet 5 mg PO BID PRN (Reason: Muscle Spasm) loratadine [Claritin] 10 mg Tablet 10 mg PO QAM acetaminophen [Tylenol] 325 mg Tablet 325 mg PO DIRECTED PRN (Reason: PAIN/FEVER) docusate sodium [Stool Softener] 100 mg Capsule 100 mg PO BID hydroxyzine HCl 25 mg tablet 25 mg PO HS PRN (Reason: Itching) albuterol sulfate 90 mcg/actuation HFA aerosol inhaler 2 puff INHALATION Q4H PRN (Reason: Wheezing) fluoride (sodium) [SF 5000 Plus] 1.1 % Cream 1 applic DENTAL BID gabapentin 300 mg capsule 300 mg PO TID amlodipine [Norvasc] 5 mg Tablet 5 mg PO QAM Qty: 30 1RF montelukast 10 mg tablet 10 mg PO QAM fosfomycin tromethamine 3 gram packet 3 g PO FARMER@0900 bumetanide 2 mg tablet 2 mg PO BID Rx Instructions: QAM & NOON amoxicillin 500 mg Capsule 2,000 mg PO DIRECTED PRN (Reason: 1 HR PRIOR TO DENTAL APPT.) nystatin 100,000 unit/gram powder 1 applic TOPICAL TID PRN (Reason: SKIN IRRITATION, UNDER BREASTS, ABD FOLDS) ipratropium-albuterol 0.5 mg-3 mg(2.5 mg base)/3 mL solution for nebulization 3 ml NEB Q6H PRN (Reason: shortness of breath) prednisone 10 mg Tablet 10 mg PO DAILY Discharge Orders: Discharge Order (Routine); Ordered 03/18/24 Ordered By: Nixon Sherman Admission Data Admit Date/Time: 03/15/24 20:22 Attending Provider: Nixon Sherman Admit Provider: Vanessa Luke Primary Care Provider: Kat Hawthorne Other Providers: Parag Kelly; Vanessa Luke Other Interventions: Discharge Summary Assessment (RN) Last Done: 03/18/24 11:22
== END 2024-03-18 13:15 | disposition home or self-care (01) | DRG 189 ==
LOC: ED 18:02 → EDINP 20:22 → SUATTDRO 20:22 → 1E 03-16 00:06 → 4W 03-16 18:16

== ENCOUNTER 2024-04-15 14:51 | Inpatient (IN) ==
[2024-04-15] MEDS: RAPID SEQUENCE INDUCTION BAG ONE (15:17)
--- NOTE | 2024-04-15 15:27 | Emergency Department Note ---
Impression & Plan Hypoxia, Anemia, SOB (shortness of breath), Respiratory acidosis ED Provider Note NAME: MICHELLE ARELLANO AGE: 68 SEX: F : 1955 ARRIVES VIA: Ambulance INFORMANT: [Patient] ED PROVIDER(S): [Freddie Roth MD] CHIEF COMPLAINT: Respiratory problems HISTORY OF PRESENT ILLNESS: The patient is a 68-year-old female who states that she has had a few days of increasing dyspnea. She has had low sats at night despite her noninvasive machine. The patient had to turn her oxygen up during the day, despite this increased O2 use, her sats have been low and she has been more short of breath. Today, her sats were quite low. EMS arrived and she was hypoxic on a good amount of O2. They placed her on CPAP/BiPAP and she felt better, the saturations improved. There has been no fever, no chest pain. The patient states she has not been coughing more. She states she has noticed some increased fatigue. PMHx/PSHx/Social Hx: See Below PHYSICAL EXAM: GENERAL: Patient is in no acute distress. BiPAP in place. HEENT: No acute trauma, normocephalic atraumatic, mucous membranes moist, no nasal congestion. NECK: No stridor, no adenopathy, no meningismus, trachea is midline. LUNGS: Crackles bilaterally, no wheezing, no obvious respiratory distress. HEART: Without murmurs gallops or rubs, regular rate and rhythm. ABDOMEN: Soft, nontender, no peritonitis. EXTREMITIES: No cyanosis, full range of motion of all the joints without pain or difficulty. NEUROLOGIC: Oriented x 3, no acute motor or sensory deficits, no focal weakness. SKIN: No jaundice, no diaphoresis. DIFFERENTIAL DIAGNOSIS: Exacerbation of underlying lung disease, pneumonia, bronchitis, anemia, cardiac ischemia, viral illness, CHF, among others. EMERGENCY DEPARTMENT PROCEDURES: MEDICAL DECISION MAKING: There is no leukocytosis. The patient was anemic however, this appears baseline when looking back at previous testing. Platelet count slightly low but not in need of urgent attention. No coagulopathy. VBG did show findings of respiratory acidosis. CO2 was elevated consistent with her CO2 retention noted on VBG. No renal failure. Lactic acid level was not elevated making severe sepsis unlikely. No concerning liver enzyme elevation. Troponin was slightly elevated, this is likely secondary to her hypoxia, cardiac injury was of course also considered a possibility. ECG though showed a normal sinus rhythm, no ischemia. BNP was somewhat elevated at 212, this could be consistent with some fluid overload. Urinalysis showed possible infection. Respiratory bio fire was negative. Chest x-ray showed diffuse parenchymal congestion and the film appears similar to previous films. On exam, the patient seemed to be doing well on BiPAP. The patient was brought in emergently. She was placed on BiPAP upon arrival. She has done well with BiPAP. She seems to be improving. The patient was given a DuoNeb. She received IV ceftriaxone as empiric antibiotic coverage. The patient is in need of a hospital stay. She has become hypoxic. She is more short of breath despite her at home device. She has required more oxygen than is typical for her. I spoke with the patient at length, I spoke with case management, the on-call hospitalist was consulted. Prior/Outside records/notes reviewed: Today's EMS notes describing her presentation and transport to this hospital. ECG per my interpretation: Indication was shortness of breath. The ECG shows a normal sinus rhythm with a rate of 76. There is LVH present. There is no acute ST elevation, no PVCs. The QTc is 432. Continuous Cardiac Monitoring per my interpretation: An order was placed for continuous cardiac monitoring. The monitor shows a rate of 74 with normal sinus rhythm. Imaging/x-ray results per my interpretation: Chest x-ray shows diffuse parenchymal congestion which appears some of the previous films, no obvious focal pneumonia. Chronic Medical/Social conditions affecting care: Advanced age. Chronic O2 use. Care/Management discussed with: Case management, the on-call hospitalist. Level of care consideration(s): After review of the information above and other included data: --I believe the patient requires escalation of care to admission Critical Care Note: I have personally spent 47 minutes of critical care time in the direct management of this patient. This includes bedside care, interpretation of diagnostic studies, and testing, discussion with consultants, patient, and family members, and other required patient management activities. This 47 minutes is in excess of all separately billable procedures. 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 WELSH). 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: underwent procedure without any complications; was monitored for 6 doses of sotalol before being discharged home Liver cirrhosis secondary to WEIR Paroxysmal atrial fibrillation Chronic anemia Obesity, morbid, BMI 40.0-49.9 (Chronic) Ovarian cancer (Acute) BERRY (obstructive sleep apnea) Chronic hypoxemic respiratory failure (Acute) Interstitial lung disease (Acute) Sick sinus syndrome BERRY (obstructive sleep apnea) On nocturnal O2 at 2lpm- could not tolerate CPAP per records Atrial fibrillation No AC due to GI bleed and anemia GERD (gastroesophageal reflux disease) (Chronic) HTN (hypertension) (Chronic) CKD (chronic kidney disease), stage III (Chronic) follows with Dr. Lepe H/O cystoscopy (Chronic) H/O gastric bypass (Chronic) "1980, reversed in same year" H/O arthroscopy of knee (Chronic) History of herniorrhaphy (Chronic) VENTRAL HERNIA REPAIR= 04/27/17= GRADE VIEW 2, CLEMENTE#2, ETT 7.0 AT [facility] Anemia (Chronic) hx blood transfusions Hgb baseline 8-9 Spinal stenosis (Chronic) HX On home oxygen therapy (Chronic) 3L/MIN NC PRN SOB Medical History Supracondylar fracture of right femur Choledocholithiasis with obstruction S/p ERCP with stent placement on 01/20/23 Obesity (BMI 30-39.9) Ovarian cancer dx'd 07/2020 - surgery + chemo Osteoarthritis Anxiety and depression Restless leg syndrome History of kidney stones History of renal calculi History of recurrent UTI (urinary tract infection) Spinal stenosis of lumbar region History of blood transfusion 05/2020 Kidney stones Irritable bowel syndrome (IBS) Anxiety Depression Ventral hernia Surgical History S/P left knee arthroscopy History of vascular access device removed History of ERCP (~09/2020) History of appendectomy (~09/07/20) History of total hysterectomy with bilateral salpingo-oophorectomy (BSO) (~09/07/20) @ [facility] with appy at same time History of esophagogastroduodenoscopy (EGD) History of colonoscopy [place] teeth removed S/P adenoidectomy Family History Mother Scleroderma Lupus Family history of reaction to anesthesia nausea Father Coronary heart disease Heart disease Brother Fatty liver Aunt Cancer unspecified Grandfather (Paternal) Heart disease Grandfather (Maternal) Lung disease Grandmother (Paternal) Stroke Grandmother (Maternal) Family history of diabetes mellitus Social History Smoking Status: Current every day smoker Tobacco Type: Cigarettes Age Started Using Tobacco: 26; Age Quit Using Tobacco: 38; Cigarettes Per Day: 10-20; Second Hand Exposure: No; Do You Dip or Chew Tobacco: No; Tobacco Cessation Education Requested by Patient: No Hx Alcohol Use: No Hx Substance Use: No Preferred Language: Danish Communication Ability: Effective Visual Impairment: No Limitations Customer Service Sales Associate Required: No Beliefs That Will Affect Care: None marital status: Current Living Situation: Alone Current Living Situation Comment: home health current occupational status: retired How many Children do You have: 0 Other Information That Helps Us Care for You: No Feels Safe at Home: Yes Safety Concerns: Feels Safe At This Time Diet: regular during the past year weight has: remained stable Assistive Devices: Glasses and Walker Allergies Allergies Allergy/AdvReac Type Severity Reaction Status Date / Time levofloxacin Allergy Intermediate LE Verified 03/22/24 10:18 swelling and blistering paclitaxel [From Taxol] Allergy Intermediate facial Verified 03/22/24 10:18 flushing, bradycardia doxorubicin AdvReac Severe Hypoxia Verified 03/22/24 10:18 clindamycin AdvReac Intermediate PT Verified 03/22/24 10:18 CONTRACTED C-DIFF shellfish derived AdvReac Intermediate NAUSEA,DIARRHEA, Verified 03/22/24 10:18 VOMITING adhesive AdvReac Mild SKIN Verified 03/22/24 10:18 BLISTERS SOME TIMES Home Meds Home Medications Medication Instructions Recorded Confirmed lorazepam 0.5 mg tablet 0.5 mg PO Q8 PRN Anxiety 10/18/18 04/15/24 sertraline 100 mg tablet (Zoloft) 100 mg PO QAM 10/18/18 04/15/24 cyclobenzaprine 5 mg tablet 5 mg PO BID PRN Muscle Spasm 08/25/19 04/15/24 omeprazole 20 mg capsule,delayed 20 mg PO BID 04/12/20 04/15/24 release folic acid 1 mg tablet 1 mg PO QAM 05/08/20 04/15/24 sotalol 80 mg tablet 80 mg PO BID 10/01/20 04/15/24 loratadine 10 mg tablet (Claritin) 10 mg PO QAM 09/18/22 04/15/24 acetaminophen 325 mg tablet 650 mg PO Q4 PRN PAIN/FEVER 02/27/23 04/15/24 (Tylenol) albuterol sulfate 90 mcg/actuation 2 puff inhalation Q4H PRN Wheezing 02/27/23 04/15/24 aerosol inhaler docusate sodium 100 mg capsule 100 mg PO BID 02/27/23 04/15/24 (Stool Softener) fluoride (sodium) 1.1 % dental 1 applic dental BID 02/27/23 04/15/24 cream (SF 5000 Plus) hydroxyzine HCl 25 mg tablet 25 mg PO HS PRN Itching 02/27/23 04/15/24 gabapentin 300 mg capsule 300 mg PO TID 06/17/23 04/15/24 montelukast 10 mg tablet 10 mg PO QAM 07/22/23 04/15/24 fosfomycin tromethamine 3 gram 3 g PO FARMER@0900 07/31/23 04/15/24 oral packet Portable Oxygen 12/24/23 04/15/24 amoxicillin 500 mg capsule 2,000 mg PO DIRECTED PRN 1 HR 03/15/24 04/15/24 PRIOR TO DENTAL APPT. bumetanide 2 mg tablet 2 mg PO BID 03/15/24 04/15/24 ipratropium 0.5 mg-albuterol 3 mg 3 ml NEB Q6H PRN shortness of 03/15/24 04/15/24 (2.5 mg base)/3 mL nebulization breath soln nystatin 100,000 unit/gram topical 1 applic topical TID PRN SKIN 03/15/24 04/15/24 powder IRRITATION, UNDER BREASTS, ABD FOLDS Previous Rx's Medication Instructions Recorded cholecalciferol (vitamin D3) 50 2,000 unit PO QAM #90 tabs 04/09/21 mcg (2,000 unit) tablet amlodipine 5 mg tablet (Norvasc) 5 mg PO QAM #30 tabs 06/22/23 Results & Data (ED) Vital Signs Vital Signs - 24 hr 04/15/24 15:01 04/15/24 15:01 04/15/24 15:01 Pulse Rate 74 Pulse Rate from SpO2 Sensor Respiratory Rate 18 24 Respiratory Effort / Characteristics Short of Breath SOB on Exertion Non-Labored Spontaneous Respiratory Depth Normal Normal Respiratory Pattern Regular Regular Blood Pressure 132/89 Blood Pressure Mean 103 Pulse Oximetry 97 97 Oxygen Delivery Method BiPAP Fraction of Inspired Oxygen 70 70 SaO2/FiO2 Ratio 138 Sepsis Recent Fever Within 48 Hours No Sepsis New/Unexplained Change in Mental Status No Sepsis Action Taken by Nursing No Action Required 04/15/24 15:15 04/15/24 15:29 04/15/24 15:33 Pulse Rate 73 75 72 Pulse Rate from SpO2 Sensor 73 72 Respiratory Rate 21 22 Respiratory Effort / Characteristics Respiratory Depth Respiratory Pattern Blood Pressure Blood Pressure Mean Pulse Oximetry 95 97 Oxygen Delivery Method Fraction of Inspired Oxygen SaO2/FiO2 Ratio Sepsis Recent Fever Within 48 Hours Sepsis New/Unexplained Change in Mental Status Sepsis Action Taken by Nursing 04/15/24 16:12 04/15/24 16:57 04/15/24 17:00 Pulse Rate 72 74 74 Pulse Rate from SpO2 Sensor 72 72 74 Respiratory Rate 22 20 25 H Respiratory Effort / Characteristics Respiratory Depth Respiratory Pattern Blood Pressure 141/80 H 148/69 H Blood Pressure Mean 100 101 Pulse Oximetry 92 92 92 Oxygen Delivery Method Fraction of Inspired Oxygen SaO2/FiO2 Ratio Sepsis Recent Fever Within 48 Hours Sepsis New/Unexplained Change in Mental Status Sepsis Action Taken by [facility] Medications Current Medication List: was personally reviewed by me Laboratory Data Attestation: I reviewed the patient's lab results. 04/16/24 04:11 04/16/24 04:11 Lab Results 04/15/24 04/15/24 04/15/24 Range/Units 15:09 15:21 15:33 WBC 9.32 (4.8-10.8) K/ul RBC 3.38 L (4.20-5.40) M/uL Hgb 9.3 L (12.0-16.0) g/dl Hct 32.2 L (37.0-47.0) % MCV 95.3 (80.0-100.0) fL MCH 27.5 (25.0-34.0) pg MCHC 28.9 L (32.0-36.0) g/dL RDW Std Deviation 74.5 H (36.4-46.3) fL RDW Coeff of Patrica 21.6 H (11.5-14.5) % Plt Count 114 L (130-400) K/uL MPV 11.3 (9.4-12.4) fL Immature Gran % (Auto) 1.9 % Neut % (Auto) 83.8 % Lymph % (Auto) 7.8 % [place] % (Auto) 4.7 % Eos % (Auto) 1.7 % Baso % (Auto) 0.1 % Neut # (Auto) 7.80 H (1.40-6.50) K/uL Lymph # (Auto) 0.73 L (1.20-3.40) K/uL [place] # (Auto) 0.44 (0.11-0.59) K/uL Eos # (Auto) 0.16 (0.00-0.50) K/uL Baso # (Auto) 0.01 (0.00-0.20) K/uL Immature Gran # (Auto) 0.18 (0.01-0.20) K/uL Absolute Nucleated RBC 0.06 (0.00-0.12) K/uL Nucleated RBC % (auto) 0.6 % Polychromasia 1+ Basophilic Stippling 1+ Anisocytosis Present Tear Drop Cells 1+ Stomatocytes 2+ PT 11.1 (9.0-12.0) Seconds INR 1.0 (0.9-1.1) APTT 27 (21-31) Seconds PTT Ratio 1.0 VBG pH 7.29 L (7.36-7.41) VBG pCO2 90 H (38-50) mmHg VBG pO2 40 mmHg VBG HCO3 43 mmol/L VBG O2 Saturation 66.2 % VBG Base Excess 12.6 mEq/L Sodium 140 (136-145) mmol/L Potassium 4.1 (3.5-5.1) mmol/L Chloride 95 L (98-107) mmol/L Carbon Dioxide 41 H* (21-32) mmol/L Anion Gap 4 (3-11) BUN 25 H (6-23) mg/dl Creatinine 0.78 (0.6-1.2) mg/dl Est Cr Clr Drug Dosing 86.2 ml/min Est GFR ( Amer) 89.3 ml/min Est GFR (Non-Af Amer) 77.0 ml/min BUN/Creatinine Ratio 32.1 H (10-20) Glucose 155 H (70-99(Fasting)) mg/dl Lactate 0.7 (0.4-2.0) mmol/L Calcium 9.8 (8.6-10.3) mg/dl Total Bilirubin 1.0 (0.2-1.0) mg/dl AST 24 (13-39) U/L ALT 23 (7-52) U/L Alkaline Phosphatase 69 (34-104) U/L Troponin I High Sens 14.9 H (0-14) pg/ml B-Natriuretic Peptide 212 H (0-100) pg/ml Total Protein 7.2 (6.0-8.3) gm/dl Albumin 3.9 (3.4-5.0) gm/dl Globulin 3.3 (2.5-4.0) gm/dl Albumin/Globulin Ratio 1.2 (0.9-2) Adenovirus (PCR) Not Detected (NotDetected) B. pertussis DNA (PCR) Not Detected (NotDetected) B.parapertussis DNA PCR Not Detected (NotDetected) C. pneumoniae DNA (PCR) Not Detected (NotDetected) Coronavirus OC43 (PCR) Not Detected (NotDetected) Coronavirus HKU1 (PCR) Not Detected (NotDetected) Coronavirus 229E (PCR) Not Detected (NotDetected) SARS-CoV-2 (PCR) Not Detected (NotDetected) Coronavirus NL63 (PCR) Not Detected (NotDetected) Human Metapneumovir PCR Not Detected (NotDetected) Influenza Type A (PCR) Not Detected (NotDetected) Influenza Type B (PCR) Not Detected (NotDetected) M. pneumoniae (PCR) Not Detected (NotDetected) Parainfluenza 1 (PCR) Not Detected (NotDetected) Parainfluenza 2 (PCR) Not Detected (NotDetected) Parainfluenza 3 (PCR) Not Detected (NotDetected) Parainfluenza 4 (PCR) Not Detected (NotDetected) RSV (PCR) Not Detected (NotDetected) Entero/Rhino (PCR) Not Detected (NotDetected) Administered Medications Albuterol (Albut/Ipratrop 3mg/0.5mg Neb 3 Ml Vial) 3 ml NEB Q4R [facility]; Protocol Stop: 05/16/24 06:59 Last Admin: 04/16/24 10:28 Dose: 3 ml Documented By: Admin: 04/16/24 07:50 Dose: Not Given Documented By: TRAM Amlodipine Besylate (Amlodipine Besylate 5 Mg Tab) 5 mg PO [facility]IM [facility] Stop: 05/16/24 08:59 Last Admin: 04/16/24 08:54 Dose: 5 mg Documented By: AM Budesonide (Budesonide 0.5 Mg/2 Ml Vial (Pulmicort)) 0.5 mg NEB BIDR [facility] Stop: 05/16/24 06:29 Last Admin: 04/16/24 07:49 Dose: 0.5 mg Documented By: TRAM Docusate Sodium (Docusate Sodium 100 Mg Cap) 100 mg PO BID [facility] Stop: 05/15/24 20:59 Last Admin: 04/16/24 08:54 Dose: 100 mg Documented By: Admin: 04/15/24 21:18 Dose: 100 mg Documented By: SUMAN Folic Acid (Folic Acid 1 Mg Tab) 1 mg PO QAM [facility] Stop: 05/16/24 08:59 Last Admin: 04/16/24 08:55 Dose: 1 mg Documented By: AM Formoterol Fumarate (Formoterol 20 Mcg/2 Ml Vial) 20 mcg NEB BIDR [facility] Stop: 05/16/24 06:59 Last Admin: 04/16/24 07:49 Dose: 20 mcg Documented By: TRAM Furosemide (Furosemide Inj 20 Mg/2 Ml Vial) 20 mg IV BID17 [facility] Stop: 05/16/24 08:59 Last Admin: 04/16/24 08:55 Dose: 20 mg Documented By: AM Gabapentin (Gabapentin 300 Mg Cap) 300 mg PO TID [facility] Stop: 05/15/24 20:59 Last Admin: 04/16/24 08:54 Dose: 300 mg Documented By: Admin: 04/15/24 21:18 Dose: 300 mg Documented By: SUMAN Heparin Sodium (Porcine) (Heparin Sod 5,000 Unit/0.5 Ml Vial) 5,000 units SQ Q8 [facility] Stop: 05/15/24 21:59 Last Admin: 04/16/24 05:55 Dose: 5,000 units Documented By: Admin: 04/15/24 21:20 Dose: 5,000 units Documented By: SUMAN Methylprednisolone 40 mg/ (Syringe) 0.64 mls @ 1.5 mls/min IV TID [facility] Stop: 05/15/24 20:59 Last Admin: 04/16/24 06:14 Dose: 1.5 mls/min Documented By: Admin: 04/15/24 21:19 Dose: 1.5 mls/min Documented By: SUMAN Insulin Aspart (Insulin Aspart Per Unit Charge) 0 units SC ACHS [facility] Stop: 05/15/24 20:59 Last Admin: 04/16/24 09:55 Dose: 10 units Documented By: AZEEM Co-signed By: TAMMY Admin: 04/15/24 21:10 Dose: 2 units Documented By: SUMAN Co-signed By: DIANA Loratadine (Loratadine 10 Mg Tab) 10 mg PO QAJIM [facility] Stop: 05/16/24 08:59 Last Admin: 04/16/24 08:55 Dose: 10 mg Documented By: AZEEM Montelukast Sodium (Montelukast Sodium 10 Mg Tablet) 10 mg PO QAM [facility] Stop: 05/16/24 08:59 Last Admin: 04/16/24 08:53 Dose: 10 mg Documented By: AZEEM Pantoprazole Sodium (Pantoprazole 40 Mg Tab) 40 mg PO BID [facility] Stop: 05/15/24 20:59 Last Admin: 04/16/24 08:54 Dose: 40 mg Documented By: Admin: 04/15/24 21:18 Dose: 40 mg Documented By: SUMAN Sertraline HCl (Sertraline Hcl 100 Mg Tablet) 100 mg PO QAM [facility] Stop: 05/16/24 08:59 Last Admin: 04/16/24 08:53 Dose: 100 mg Documented By: AZEEM Sotalol HCl (Sotalol Hcl 80 Mg Tab) 80 mg PO BID [facility] Stop: 05/15/24 20:59 Last Admin: 04/16/24 08:55 Dose: 80 mg Documented By: Admin: 04/15/24 21:19 Dose: 80 mg Documented By: SUMAN Vitamin D (Cholecalciferol 25 Mcg (1000 Units) Tab) 50 mcg PO QAM [facility] Stop: 05/16/24 08:59 Last Admin: 04/16/24 08:55 Dose: 50 mcg Documented By: AZEEM Discontinued Medications Albuterol (Albut/Ipratrop 3mg/0.5mg Neb 3 Ml Vial) 3 ml NEB NOW STA; Protocol Stop: 04/15/24 15:21 Last Admin: 04/15/24 15:30 Dose: 3 ml Documented By: GURVINDER Albuterol (Albut/Ipratrop 3mg/0.5mg Neb 3 Ml Vial) 3 ml NEB Q4H [facility]; Protocol Stop: 05/15/24 17:29 Last Admin: 04/16/24 04:00 Dose: 3 ml Documented By: Admin: 04/15/24 23:39 Dose: 3 ml Documented By: Admin: 04/15/24 20:00 Dose: 3 ml Documented By: RUSS Furosemide (Furosemide 40 Mg/4 Ml Vial) 20 mg IV TODAY@1724 [facility] Stop: 04/15/24 22:00 Last Admin: 04/15/24 21:08 Dose: 20 mg Documented By: SUMAN Ceftriaxone Sodium (Rocephin) 2,000 mg in 50 mls @ 100 mls/hr IV TODAY@1730 [facility] Stop: 04/15/24 21:00 Last Infusion: 04/15/24 21:15 Dose: Infused Documented By: Admin: 04/15/24 20:40 Dose: 100 mls/hr Documented By: SUMAN Azithromycin 500 mg/ Dextrose 255 mls @ 125 mls/hr IV Q24H [facility] Stop: 04/15/24 21:00 Last Infusion: 04/15/24 22:04 Dose: Infused Documented By: Admin: 04/15/24 19:52 Dose: 125 mls/hr Documented By: SUMAN Insulin Glargine (Lantus Per Unit Charge) 10 units SC 0900 ONE Stop: 04/16/24 09:01 Last Admin: 04/16/24 09:55 Dose: 10 units Documented By: AZEEM Co-signed By: [facility] Miscellaneous (Rapid Sequence Induction Bag) Confirm Administered Dose 1 each N/A .STK-MED ONE Stop: 04/15/24 14:39 Last Admin: 04/15/24 15:17 Dose: Not Given Documented By: GURVINDER Discharge Plan Visit Data Chief Complaint: Respiratory Problems Stated Complaint: RESPIRATORY PROBLEMS ED Provider: Freddie Roth Discharge Problem: Hypoxia, Anemia, SOB (shortness of breath), Respiratory acidosis Patient Disposition: Admitted As Inpatient Condition: Serious Discharge Instructions Interventions: ED Discharge Assessment Last Done: 04/15/24 18:33 Discharge Problem: Anemia Qualifiers: Anemia type: unspecified type Qualified Code(s): D64.9 - Anemia, unspecified
[2024-04-15] MEDS: ALBUT/IPRATROP 3MG/0.5MG NEB 3 ML VIAL NEB STA (15:30)
[2024-04-15 15:33] LABS: Basophils # (auto) 0.01 K/uL (0.00-0.20); Basophils % (auto) 0.1 %; Eosinophils # (auto) 0.16 K/uL (0.00-0.50); Eosinophils % (auto) 1.7 %; Hematocrit (blood only) 32.2 % (37.0-47.0); Hemoglobin 9.3 g/dl (12.0-16.0); Immature Granulocytes # (auto) 0.18 K/uL (0.01-0.20); Immature Granulocytes % (auto) 1.9 %; Lymphocytes # (auto) 0.73 K/uL (1.20-3.40); Lymphocytes % (auto) 7.8 %; Mean Corpuscular Hemoglobin 27.5 pg (25.0-34.0); Mean Corpuscular Hgb Conc 28.9 g/dL (32.0-36.0); Mean Corpuscular Volume 95.3 fL (80.0-100.0); Mean Platelet Volume 11.3 fL (9.4-12.4); Monocytes # (auto) 0.44 K/uL (0.11-0.59); Monocytes % (auto) 4.7 %; Neutrophils % (auto) 83.8 %; Nucleated RBC # (auto) 0.06 K/uL (0.00-0.12); Nucleated RBC % (auto) 0.6 %; Platelet Count 114 K/uL (130-400); RDW Coefficient of Variation 21.6 % (11.5-14.5); RDW Standard Deviation 74.5 fL (36.4-46.3); Red Blood Count 3.38 M/uL (4.20-5.40); White Blood Count 9.32 K/ul (4.8-10.8)
--- NOTE | 2024-04-15 15:36 | XRay Report ---
XR chest 1V portable HISTORY: 68 years-old Female Dyspnea acute shortness of breath COMPARISON: 03/15/2024 TECHNIQUE: AP view of the chest FINDINGS: Cardiac silhouette is enlarged. Dual-lead left subclavian pacer. Extensive interstitial and alveolar opacities are similar to prior. Bones appear grossly intact. Bones appear grossly intact. IMPRESSION: Stable appearance of the chest with mixed interstitial and alveolar opacities. This may b e related to chronic interstitial lung disease versus superimposed pneumonia. ACT 112: Negative or not required by law. The above report was generated using voice recognition software. It may contain grammatical, syntax o r spelling errors. Electronically signed by: Adi Luong M.D. 04/15/2024 3:34 PM
[2024-04-15 15:52] LABS: Base Excess VBG 12.6 mEq/L; HCO3 VBG 43 mmol/L; Oxygen Saturation VBG 66.2 %; PCO2 VBG 90 mmHg (38-50); PO2 VBG 40 mmHg; pH VBG 7.29 (7.36-7.41)
[2024-04-15 15:58] LABS: Anisocytosis Present; Basophilic Stippling 1+; Partial Thromboplastin Time 27 Seconds (21-31); Polychromasia 1+; Prothrombin Time 11.1 Seconds (9.0-12.0); Stomatocytes 2+; Tear Drop Cells 1+
[2024-04-15 16:14] LABS: Albumin Globulin Ratio 1.2 (0.9-2); Albumin Level 3.9 gm/dl (3.4-5.0); BUN Creatinine Ratio 32.1 (10-20); Calcium 9.8 mg/dl (8.6-10.3); Creatinine Clr Calc Pharmacy 86.2 ml/min; Est GFR (African American) 89.3 ml/min; Globulin 3.3 gm/dl (2.5-4.0); Potassium 4.1 mmol/L (3.5-5.1); Total Protein 7.2 gm/dl (6.0-8.3); Troponin I High Sensitivity 14.9 pg/ml (0-14)
[2024-04-15 16:27] LABS: Adenovirus PCR Not Detected (NotDetected); Bordetella parapertussis PCR Not Detected (NotDetected); Bordetella pertussis PCR Not Detected (NotDetected); Chlamydia pneumoniae PCR Not Detected (NotDetected); Coronavirus 229E PCR Not Detected (NotDetected); Coronavirus CoV-2 (COVID19)PCR Not Detected (NotDetected); Coronavirus HKU1 PCR Not Detected (NotDetected); Coronavirus NL63 PCR Not Detected (NotDetected); Coronavirus OC43PCR Not Detected (NotDetected); Human Metapneumovirus PCR Not Detected (NotDetected); Influenza A PCR Not Detected (NotDetected); Influenza B PCR Not Detected (NotDetected); Mycoplasma pneumoniae PCR Not Detected (NotDetected); Parainfluenza Virus 1 PCR Not Detected (NotDetected); Parainfluenza Virus 2 PCR Not Detected (NotDetected); Parainfluenza Virus 3 PCR Not Detected (NotDetected); Parainfluenza Virus 4 PCR Not Detected (NotDetected); Respiratory Syncytial VirusPCR Not Detected (NotDetected); Rhinovirus/Enterovirus PCR Not Detected (NotDetected)
[2024-04-15] MEDS ORDERED: ALUMINUM/MAGNESIUM SUSP 30 ML UDC PO PRN (17:18)
[2024-04-15] MEDS ORDERED: MoRPHine SULFATE 2 MG/ML CARP IV PRN (17:18)
[2024-04-15] MEDS ORDERED: ONDANSETRON INJ 2 MG/ML 2 ML VIAL IV PRN (17:18)
[2024-04-15] MEDS ORDERED: POLYETHYLENE (MIRALAX) 17 GM PACK PO PRN (17:18)
[2024-04-15] MEDS ORDERED: FUROSEMIDE 40 MG/4 ML VIAL IV ONE (17:24)
[2024-04-15] MEDS ORDERED: ACETAMINOPHEN 325 MG TAB PO PRN (17:26)
[2024-04-15] MEDS ORDERED: hydrOXYzine HCl 25 MG TAB PO PRN (17:26)
--- NOTE | 2024-04-15 17:42 | History & Physical Report ---
Date of Service April 15, 2024 Assessment & Plan (1) Hypersensitivity pneumonitis: (2) Acute respiratory failure with hypoxia and hypercapnia: (3) Acute exacerbation of CHF (congestive heart failure): Plan: Patient is a 68-year-old female with past medical history of chronic hypersensitive pneumonitis on 6 to 7 L of oxygen by nasal cannula, paroxysmal atrial fibrillation/flutter, not on anticoagulation due to chronic anemia and GI bleeding, tachybradycardia syndrome status post pacemaker, chronic HFpEF, hypertension, liver cirrhosis with WEIR, morbid obesity presents with shortness of breath and increasing fatigue gradually starting in the last 7 days. Patient had completed tapering course of steroids 6 days prior to admission. Acute on chronic hypercapnic respiratory failure History of chronic hypersensitive pneumonitis Possible pneumonia Possible acute on chronic diastolic heart failure Patient presented with shortness of breath for 1 day; at baseline she is on 6 to 7 L of oxygen by nasal cannula; desaturating to 70% ABG on admission showed acute on chronic hypercapnic respiratory failure with pH of 7.29 and pCO2 of 90 mmHg Chest x-ray shows interstitial and alveolar opacities; similar to findings previously on cxr Respiratory viral panel negative Will restart her on steroids with IV methylprednisolone 40 mg 3 times daily. Start on empiric antibiotic with ceftriaxone and Azithromycin for possible pneumonia Continue on BiPAP; repeat ABG in next 2 hours. Swithc to highflow nasal cannula when possible Diuresis with Lasix 20 mg twice a day duonebs every 4 hours Will consult pulmonology for additonal recommendation Paroxysmal atrial fibrillation EKG on admission personally reviewed; normal sinus rhythm; QTc of 432 Continue sotalol BID, not on anticoagulation due to h/o GI bleed Telemonitoring Mood disorder Continue Zoloft, Ativan BID SSS S/p pacemaker placement H/o hemolytic anemia baseline 9-10).Previously on prednisone for same. Currently off steroid. Started on methylprednisolone NAFLD cirrhosis Appears compensated, continue low sodium diet BERRY Intolerant to CPAP, uses supplemental O2 at home. Continue bipap for now Hx of ESBL E coli UTI Continue Fosfomycin suppression qweekly (takes on Sundays) Type 2 DM HbA1c of 6.9% last admission SSI while in-patient Discussed lifestyle interventions; Oral hypoglycemic agents could be considered as outpatient I discussed goals of care with patient and patient's brother at bedside. They both acknowledge patient's gradual decline in her health and respiratory status for the last several months. They will want to continue medical intervention for the time being. They both agree that she would not benefit from mechanical ventilation and CPR. DVT prophylaxis heparin DNR/DNI Time spent evaluating patient, direct bedside care, chart review, placing orders, interpretation of diagnostic studies, discussion with consultants, patient, and family members, as well as other required patient management activities is 75 minutes Please note the above document was generated using voice recognition software. It may contain grammatical, syntax or spelling errors. Any formal questions or concerns about the content, text or information contained within the body of this dictation should be directly addressed to the provider for clarification History of Present Illness Chief Complaint: Shortness of breath for 7 day Primary Care Provider: Kat Hawthorne, History obtained from chart review and interview with the patient Possible history of Patient was recently hospitalized in March; was arranged for ASV at the time of the discharge. Patient followed up with her primary care doctor; her Bumex dose was decreased once a day. She has not been able to follow-up with [facility] clinic since her last discharge She completed her tapering course of steroid 6 days back; she was on steroid since October of last year. She reports that she has been feeling worse since last several days; which coincided with stopping her steroid. Her oxygen saturation were reading around 75% on baseline oxygen. Patient called Krysten at home who recommended patient to go to the emergency department. She denies cough, fever, chills, sore throat chest pain or abdominal pain She reported increasing tiredness and fatigue. She also reports pain on her right shoulder during range of motion. On presentation to the ED, patient was normotensive afebrile. She was pale and tired; was placed on BiPAP. Her ABG revealed acute on chronic hypercapnic respiratory failure with pH of 7.29 and pCO2 of 90 mmHg. BNP was 212. BUN/creatinine within normal limits Chest x-ray personally reviewed; stable appearance of interstitial and alveolar opacities. Patient was referred for admission Patient was referred for admission Allergies Allergy/AdvReac Type Severity Reaction Status Date / Time levofloxacin Allergy Intermediate LE Verified 03/22/24 10:18 swelling and blistering paclitaxel [From Taxol] Allergy Intermediate facial Verified 03/22/24 10:18 flushing, bradycardia doxorubicin AdvReac Severe Hypoxia Verified 03/22/24 10:18 clindamycin AdvReac Intermediate PT Verified 03/22/24 10:18 CONTRACTED C-DIFF shellfish derived AdvReac Intermediate NAUSEA,DIARRHEA, Verified 03/22/24 10:18 VOMITING adhesive AdvReac Mild SKIN Verified 03/22/24 10:18 BLISTERS SOME TIMES Home Medications Medication Instructions Recorded Confirmed Type lorazepam 0.5 mg tablet 0.5 mg PO Q8 PRN Anxiety 10/18/18 04/15/24 History sertraline 100 mg tablet (Zoloft) 100 mg PO QAM 10/18/18 04/15/24 History cyclobenzaprine 5 mg tablet 5 mg PO BID PRN Muscle Spasm 08/25/19 04/15/24 History omeprazole 20 mg capsule,delayed 20 mg PO BID 04/12/20 04/15/24 History release folic acid 1 mg tablet 1 mg PO QAM 05/08/20 04/15/24 History sotalol 80 mg tablet 80 mg PO BID 10/01/20 04/15/24 History cholecalciferol (vitamin D3) 50 2,000 unit PO QAM #90 tabs 04/09/21 04/15/24 Rx mcg (2,000 unit) tablet loratadine 10 mg tablet (Claritin) 10 mg PO QAM 09/18/22 04/15/24 History acetaminophen 325 mg tablet 650 mg PO Q4 PRN PAIN/FEVER 02/27/23 04/15/24 History (Tylenol) albuterol sulfate 90 mcg/actuation 2 puff inhalation Q4H PRN Wheezing 02/27/23 04/15/24 History aerosol inhaler docusate sodium 100 mg capsule 100 mg PO BID 02/27/23 04/15/24 History (Stool Softener) fluoride (sodium) 1.1 % dental 1 applic dental BID 02/27/23 04/15/24 History cream (SF 5000 Plus) hydroxyzine HCl 25 mg tablet 25 mg PO HS PRN Itching 02/27/23 04/15/24 History gabapentin 300 mg capsule 300 mg PO TID 06/17/23 04/15/24 History amlodipine 5 mg tablet (Norvasc) 5 mg PO QAM #30 tabs 06/22/23 04/15/24 Rx montelukast 10 mg tablet 10 mg PO QAM 07/22/23 04/15/24 History fosfomycin tromethamine 3 gram 3 g PO FARMER@0900 07/31/23 04/15/24 History oral packet Portable Oxygen 12/24/23 04/15/24 History amoxicillin 500 mg capsule 2,000 mg PO DIRECTED PRN 1 HR 03/15/24 04/15/24 History PRIOR TO DENTAL APPT. bumetanide 2 mg tablet 2 mg PO BID 03/15/24 04/15/24 History ipratropium 0.5 mg-albuterol 3 mg 3 ml NEB Q6H PRN shortness of 03/15/24 04/15/24 History (2.5 mg base)/3 mL nebulization breath soln nystatin 100,000 unit/gram topical 1 applic topical TID PRN SKIN 03/15/24 04/15/24 History powder IRRITATION, UNDER BREASTS, ABD FOLDS Past Med/Surg History Problem List Mood disorder Steroid dependent Hypersensitivity pneumonitis Acute dyspnea (Acute) Acute respiratory failure with hypoxia and hypercapnia (Acute) Acute exacerbation of CHF (congestive heart failure) (Acute) Pacemaker IMPLANTED APRIL 2020 FOR A-FIB/TACHY-LAKEISHA SYNDROME (FOLLOWS WITH DR. WELSH). 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: underwent procedure without any complications; was monitored for 6 doses of sotalol before being discharged home Liver cirrhosis secondary to WEIR Paroxysmal atrial fibrillation Chronic anemia Obesity, morbid, BMI 40.0-49.9 (Chronic) Ovarian cancer (Acute) BERRY (obstructive sleep apnea) Chronic hypoxemic respiratory failure (Acute) Interstitial lung disease (Acute) Sick sinus syndrome BERRY (obstructive sleep apnea) On nocturnal O2 at 2lpm- could not tolerate CPAP per records Atrial fibrillation No AC due to GI bleed and anemia GERD (gastroesophageal reflux disease) (Chronic) HTN (hypertension) (Chronic) CKD (chronic kidney disease), stage III (Chronic) follows with Dr. Lepe H/O cystoscopy (Chronic) H/O gastric bypass (Chronic) "1980, reversed in same year" H/O arthroscopy of knee (Chronic) History of herniorrhaphy (Chronic) VENTRAL HERNIA REPAIR= 04/27/17= GRADE VIEW 2, CLEMENTE#2, ETT 7.0 AT [facility] Anemia (Chronic) hx blood transfusions Hgb baseline 8-9 Spinal stenosis (Chronic) HX On home oxygen therapy (Chronic) 3L/MIN NC PRN SOB Medical History Supracondylar fracture of right femur Choledocholithiasis with obstruction S/p ERCP with stent placement on 01/20/23 Obesity (BMI 30-39.9) Ovarian cancer dx'd 07/2020 - surgery + chemo Osteoarthritis Anxiety and depression Restless leg syndrome History of kidney stones History of renal calculi History of recurrent UTI (urinary tract infection) Spinal stenosis of lumbar region History of blood transfusion 05/2020 Kidney stones Irritable bowel syndrome (IBS) Anxiety Depression Ventral hernia Surgical History S/P left knee arthroscopy History of vascular access device removed History of ERCP (~09/2020) History of appendectomy (~09/07/20) History of total hysterectomy with bilateral salpingo-oophorectomy (BSO) (~09/07/20) @ [facility] [place] with appy at same time History of esophagogastroduodenoscopy (EGD) History of colonoscopy [place] teeth removed S/P adenoidectomy Family History Mother Scleroderma Lupus Family history of reaction to anesthesia nausea Father Coronary heart disease Heart disease Brother Fatty liver Aunt Cancer unspecified Grandfather (Paternal) Heart disease Grandfather (Maternal) Lung disease Grandmother (Paternal) Stroke Grandmother (Maternal) Family history of diabetes mellitus Social History Smoking Status: Never smoker Tobacco Type: Cigarettes Age Started Using Tobacco: 26; Age Quit Using Tobacco: 38; Cigarettes Per Day: couple cigs on weekends in ; Second Hand Exposure: Yes; Do You Dip or Chew Tobacco: No; Hx Alcohol Use: No Hx Substance Use: No Preferred Language: Kazakh Communication Ability: Effective Visual Impairment: No Limitations Chemical Dependency Therapist Required: No Beliefs That Will Affect Care: None marital status: Current Living Situation: Alone Current Living Situation Comment: home health current occupational status: retired How many Children do You have: 0 Feels Safe at Home: Yes Diet: regular during the past year weight has: remained stable Assistive Devices: BiPap, Oxygen - Continuous and Wheelchair Review of Systems Review of Systems: All systems reviewed & are unremarkable except as noted in Subjective Physical Exam Physical Exam: Constitutional: Alert, oriented x 3; appears tired. Comfortable on BiPAP Respiratory: Bilateral crackles heard in all lower lung base Cardiovascular: RRR, no murmur, no edema Vessels: no JVD or carotid bruit Abdomen: normal bowel sounds, soft, nontender, no hepatosplenomegaly Musculoskeletal: no cyanosis or clubbing, extremities motor strength 5/5 Skin: Multiple bruises all over her extremities. Trace pitting edema in bilateral lower extremity Neurologic: PERRL, EOMI, accommodation nl, no face palsy, no dysarthria CN's II- XI intact bilaterally and moves all extremities Psychiatric: A+Ox3, euthymic affect Results & Data Results & Data Vital Signs (Past 12 Hours) Vital Signs Pulse Resp BP Pulse Ox O2 Del Method FiO2 04/15/24 17:00 74 25 H 148/69 H 92 04/15/24 16:57 74 20 92 04/15/24 16:12 72 22 141/80 H 92 04/15/24 15:33 72 22 97 04/15/24 15:29 75 04/15/24 15:15 73 21 95 04/15/24 15:01 24 97 70 04/15/24 15:01 74 18 132/89 97 BiPAP 70
[2024-04-15 18:02] LABS: Base Excess ABG 12.9 mEq/L (-9-1.8); HCO3 ABG 40 mmol/L (19-24); Oxygen Saturation ABG 97.8 % (90-95); PCO2 ABG 62 mmHg (35-46); PO2 ABG 180 mmHg (80-95); pH ABG 7.42 (7.35-7.45)
[2024-04-15 18:13] LABS: Allen Test Pos (Pos)
[2024-04-15 19:23] LABS: Appearance Urine Cloudy (Clear); Bacteria Urine Automated 4+ (None Seen); Bilirubin Urine Negative (Negative); Blood Urine Trace (Negative); Cast Urine Automated 0-2 /lpf (0-2); Color Urine Dark Yellow; Epithelial Cell Urine Auto 0-2 /hpf (0-2); Glucose Urine UA Negative (Negative); Ketones Urine Negative (Negative); Leukocyte Esterase Urine 2+ (Negative); Nitrite Urine Negative (Negative); Protein Urine 1+ (Negative); RBC Urine Automated 0-2 /hpf (0-2); Specific Gravity Urine 1.021 (1.000-1.030); Urobilinogen Urine Negative (Negative); WBC Urine Automated >50 /hpf (0-5)
[2024-04-15] MEDS ORDERED: GLUCOSE 40% GEL 15 GM TUBE PO PRN (19:41)
[2024-04-15] MEDS ORDERED: GLUCAGON FOR INJ 1 MG VIAL SQ PRN (19:41)
[2024-04-15] MEDS ORDERED: PHARMACY GLYCEMIC MGMT CONSULT PRN (19:41)
[2024-04-15] MEDS ORDERED: DEXTROSE 50% 50 ML SYRINGE IV PRN (19:41)
[2024-04-15] MEDS ORDERED: GLUCOSE 10 TAB/TUBE PO PRN (19:41)
[2024-04-15] MEDS ORDERED: CARBOHYDRATES FOR HYPOGLYCEMIA PO PRN (19:41)
[2024-04-15] MEDS: AZITHROMYCIN 500 MG in DEXTROSE 5% 250 ML IV SCH (19:52)
[2024-04-15] MEDS: ALBUT/IPRATROP 3MG/0.5MG NEB 3 ML VIAL NEB SCH (20:00)
[2024-04-15] MEDS: cefTRIAXone SODIUM 2,000 MG/50 ML BAG IV SCH (20:40)
[2024-04-15] MEDS ORDERED: Nursing to Pharmacy Communication SCH (20:45)
[2024-04-15] MEDS ORDERED: methylPREDNISolone 125 MG/2 ML VIAL IV SCH (21:00)
[2024-04-15] MEDS: FUROSEMIDE 40 MG/4 ML VIAL IV SCH (21:08)
[2024-04-15] MEDS: INSULIN ASPART PER UNIT CHARGE SC SCH (21:10)
[2024-04-15] MEDS: PANTOprazole 40 MG TAB PO SCH (21:18)
[2024-04-15] MEDS: DOCUSATE SODIUM 100 MG CAP PO SCH (21:18)
[2024-04-15] MEDS: GABAPENTIN 300 MG CAP PO SCH (21:18)
[2024-04-15] MEDS: SOTALOL HCL 80 MG TAB PO SCH (21:19)
[2024-04-15] MEDS: methylPREDNISolone 40 MG in SYRINGE 0 ML IV SCH (21:19)
[2024-04-15] MEDS: HEPARIN SOD 5,000 UNIT/0.5 ML VIAL SQ SCH (21:20)
[2024-04-16 04:20] LABS: Base Excess ABG 13.4 mEq/L (-9-1.8); HCO3 ABG 43 mmol/L (19-24); PCO2 ABG 82 mmHg (35-46); PO2 ABG 56 mmHg (80-95); pH ABG 7.33 (7.35-7.45)
[2024-04-16 04:28] LABS: Oxygen Saturation ABG 89.1 % (90-95)
[2024-04-16 04:29] LABS: Allen Test Pos (Pos)
[2024-04-16 04:42] LABS: BUN Creatinine Ratio 31.8 (10-20); Calcium 9.3 mg/dl (8.6-10.3); Creatinine Clr Calc Pharmacy 79.5 ml/min; Est GFR (African American) 80.5 ml/min; Est GFR (Non-African American) 69.4 ml/min; Potassium 4.3 mmol/L (3.5-5.1)
[2024-04-16 05:08] LABS: Anisocytosis Present; Basophilic Stippling 1+; Basophils # (auto) 0.01 K/uL (0.00-0.20); Basophils % (auto) 0.1 %; Eosinophils # (auto) 0.01 K/uL (0.00-0.50); Eosinophils % (auto) 0.1 %; Hematocrit (blood only) 30.2 % (37.0-47.0); Hemoglobin 8.9 g/dl (12.0-16.0); Immature Granulocytes # (auto) 0.18 K/uL (0.01-0.20); Immature Granulocytes % (auto) 1.9 %; Lymphocytes # (auto) 0.35 K/uL (1.20-3.40); Lymphocytes % (auto) 3.8 %; Mean Corpuscular Hemoglobin 27.6 pg (25.0-34.0); Mean Corpuscular Hgb Conc 29.5 g/dL (32.0-36.0); Mean Corpuscular Volume 93.8 fL (80.0-100.0); Mean Platelet Volume 11.7 fL (9.4-12.4); Monocytes # (auto) 0.21 K/uL (0.11-0.59); Monocytes % (auto) 2.3 %; Neutrophils # (auto) 8.57 K/uL (1.40-6.50); Neutrophils % (auto) 91.8 %; Nucleated RBC # (auto) 0.02 K/uL (0.00-0.12); Nucleated RBC % (auto) 0.2 %; Platelet Count 104 K/uL (130-400); Polychromasia 2+; RDW Coefficient of Variation 21.2 % (11.5-14.5); RDW Standard Deviation 73.9 fL (36.4-46.3); Red Blood Count 3.22 M/uL (4.20-5.40); Stomatocytes 1+; White Blood Count 9.33 K/ul (4.8-10.8)
--- NOTE | 2024-04-16 05:47 | Electrocardiogram Report ---
Test Reason : Blood Pressure : / mmHG Vent. Rate : 076 BPM Atrial Rate : 076 BPM P-R Int : 142 ms QRS Dur : 088 ms QT Int : 384 ms P-R-T Axes : 031 -08 059 degrees QTc Int : 432 ms Normal sinus rhythm Possible Left atrial enlargement Left ventricular hypertrophy with repolarization abnormality ( R in aVL , [place] product , Romhilt-E stes ) Abnormal ECG When compared with ECG of 15-MAR-2024 21:39, Nonspecific T wave abnormality no longer evident in Anterior leads Confirmed by Toan Carrion ([id number]) on 04/16/2024 5:47:03 AM Referred By: REFERRED SELF Confirmed By:Toan Carrion
[2024-04-16 06:12] LABS: iSTAT Arterial Blood Gas HCO3 45 meg/L (19-24); iSTAT Arterial Blood Gas pCO2 93 mmHg (35-46); iSTAT Arterial Blood Gas pH 7.29 (7.35-7.45); iSTAT Arterial Blood Gas pO2 78 mmHg (80-95); iSTAT Carbon Dioxide > 40 mmol/L (24-31); iSTAT Hematocrit 29 % (37-47); iSTAT Hemoglobin 9.9 g/dl (12.0-16.0); iSTAT Potassium 4.2 mmol/L (3.3-5.0); iSTAT Sodium 137 mmol/L (135-144)
[2024-04-16 07:34] LABS: Base Excess ABG 15.4 mEq/L (-9-1.8); HCO3 ABG 44 mmol/L (19-24); Oxygen Saturation ABG 96.7 % (90-95); PCO2 ABG 83 mmHg (35-46); PO2 ABG 83 mmHg (80-95); pH ABG 7.33 (7.35-7.45)
[2024-04-16 07:35] LABS: Allen Test Pos (Pos)
[2024-04-16] MEDS: BUDESONIDE 0.5 MG/2 ML VIAL (PULMICORT) NEB SCH (07:49)
[2024-04-16] MEDS: FORMOTEROL 20 MCG/2 ML VIAL NEB SCH (07:49)
[2024-04-16] MEDS: ALBUT/IPRATROP 3MG/0.5MG NEB 3 ML VIAL NEB SCH (07:50)
[2024-04-16] MEDS ORDERED: CYCLOBENZAPRINE HCL 5 MG TAB PO PRN (08:00)
[2024-04-16] MEDS: MONTELUKAST SODIUM 10 MG TABLET PO SCH (08:53)
[2024-04-16] MEDS: SERTRALINE HCL 100 MG TABLET PO SCH (08:53)
[2024-04-16] MEDS: amLODIPine BESYLATE 5 MG TAB PO SCH (08:54)
[2024-04-16] MEDS: FUROSEMIDE INJ 20 MG/2 ML VIAL IV SCH (08:55)
[2024-04-16] MEDS: CHOLECALCIFEROL 25 MCG (1000 UNITS) TAB PO SCH (08:55)
[2024-04-16] MEDS: LORATADINE 10 MG TAB PO SCH (08:55)
[2024-04-16] MEDS: FOLIC ACID 1 MG TAB PO SCH (08:55)
[2024-04-16] MEDS: LANTUS PER UNIT CHARGE SC ONE (09:55)
--- NOTE | 2024-04-16 10:29 | Pulmonary Consultation ---
Date of Consultation April 16, 2024 Assessment & Plan (1) Acute on chronic respiratory failure with hypoxia and hypercapnia: (2) Steroid dependent: (3) Hypersensitivity pneumonitis: (4) Pulmonary HTN: (5) BERRY (obstructive sleep apnea): (6) Interstitial lung disease: Plan HRCT 10/26/2023 personally reviewed: Increased reticular markings interstitial thickening appreciated bilateral upper and lower lobes More pronounced in the upper lobes, no honeycombing Hedge cheese appearance Minimal mediastinal and hilar lymphadenopathy 2D echo 11/04/2023: EF 55-60%, PASP 60-65 mmHg, mild to moderate TR, mild concentric LVH Chest x-ray 04/15/2024 personally reviewed: Portable film, poor inspiratory effort, patchy alveolar opacities appreciated bilaterally, increased cardiac silhouette ABG 04/16/2024: 7.29/93/78 on 60% -- Acute on chronic hypoxic hypercapnic respiratory failure Multifactorial Does have chronic fibrotic hypersensitive pneumonitis Does have pulmonary hypertension as well BNP 212 Respiratory bio fire negative for everything, procalcitonin 0.25 --ILD/& pneumonitis Seems to be fibrotic component Follow-up with ILD clinic at [place] Used to be on chronic prednisone, she stated that it has been tapered off and she has been off of prednisone for 2 days. She was taking 10 mg on a daily basis -- Pulmonary hypertension Type II-type III Continue with diuresis --Metabolic alkalosis Likely compensated due to chronic respiratory acidosis -- BERRY Patient has gotten BiPAP recently but there is some issue and she has not been using it Plan: Continue with steroids BiPAP with tidal volume target of around 400-450 mL backup respiratory rate of 16. Continue with inhaled bronchodilators. Follow procalcitonin. Continue with antibiotics Recommend diuretics to keep the patient negative balance Recommend case management involved to see if he can figure out what the issue with her BiPAP Please note the above document was generated using voice recognition software. It may contain grammatical, syntax or spelling errors.Any formal questions or concerns about the content, text or information contained within the body of this dictation should be directly addressed to the provider for clarification. History of Present Illness Attending Physician: Nixon Sherman MD History of Present Illness 68-year-old female present to the hospital with complaints of worsening shortness of breath Past medical history of hypersensitivity pneumonitis, chronic hypoxemic respiratory failure on 4 to 5 L nasal cannula at all times, BERRY unable to tolerate CPAP, pulmonary hypertension, CHF, obesity, and steroid dependence Pulmonary consulted for hypoxia At the time of examination as patient's friend was in the room. She was on BiPAP 15/5, 60% saturating 97%. I went down to 45% and change the BiPAP setting to 16/6. She was still getting tidal volume around 450-500 mL She was on prednisone as per the ILD clinic at [place]. She just finished her tapering prednisone 2 days ago. She said that she started to have issues with her breathing approximately 4-5 days ago progressively getting worse Occasional cough with clear phlegm Denies any fever or chills No dysuria, no diarrhea. She does have BiPAP at home but there is some issue with it and has not been using it on a regular basis Social history: Social smoker quit a long time ago No pets or birds at home Allergies Allergy/AdvReac Type Severity Reaction Status Date / Time levofloxacin Allergy Intermediate LE Verified 03/22/24 10:18 swelling and blistering paclitaxel [From Taxol] Allergy Intermediate facial Verified 03/22/24 10:18 flushing, bradycardia doxorubicin AdvReac Severe Hypoxia Verified 03/22/24 10:18 clindamycin AdvReac Intermediate PT Verified 03/22/24 10:18 CONTRACTED C-DIFF shellfish derived AdvReac Intermediate NAUSEA,DIARRHEA, Verified 03/22/24 10:18 VOMITING adhesive AdvReac Mild SKIN Verified 03/22/24 10:18 BLISTERS SOME TIMES Home Medications Medication Instructions Recorded Confirmed Type lorazepam 0.5 mg tablet 0.5 mg PO Q8 PRN Anxiety 10/18/18 04/15/24 History sertraline 100 mg tablet (Zoloft) 100 mg PO QAM 10/18/18 04/15/24 History cyclobenzaprine 5 mg tablet 5 mg PO BID PRN Muscle Spasm 08/25/19 04/15/24 History omeprazole 20 mg capsule,delayed 20 mg PO BID 04/12/20 04/15/24 History release folic acid 1 mg tablet 1 mg PO QAM 05/08/20 04/15/24 History sotalol 80 mg tablet 80 mg PO BID 10/01/20 04/15/24 History cholecalciferol (vitamin D3) 50 2,000 unit PO QAM #90 tabs 04/09/21 04/15/24 Rx mcg (2,000 unit) tablet loratadine 10 mg tablet (Claritin) 10 mg PO QAM 09/18/22 04/15/24 History acetaminophen 325 mg tablet 650 mg PO Q4 PRN PAIN/FEVER 02/27/23 04/15/24 History (Tylenol) albuterol sulfate 90 mcg/actuation 2 puff inhalation Q4H PRN Wheezing 02/27/23 04/15/24 History aerosol inhaler docusate sodium 100 mg capsule 100 mg PO BID 02/27/23 04/15/24 History (Stool Softener) fluoride (sodium) 1.1 % dental 1 applic dental BID 02/27/23 04/15/24 History cream (SF 5000 Plus) hydroxyzine HCl 25 mg tablet 25 mg PO HS PRN Itching 02/27/23 04/15/24 History gabapentin 300 mg capsule 300 mg PO TID 06/17/23 04/15/24 History amlodipine 5 mg tablet (Norvasc) 5 mg PO QAM #30 tabs 06/22/23 04/15/24 Rx montelukast 10 mg tablet 10 mg PO QAM 07/22/23 04/15/24 History fosfomycin tromethamine 3 gram 3 g PO FARMER@0900 07/31/23 04/15/24 History oral packet Portable Oxygen 12/24/23 04/15/24 History amoxicillin 500 mg capsule 2,000 mg PO DIRECTED PRN 1 HR 03/15/24 04/15/24 History PRIOR TO DENTAL APPT. bumetanide 2 mg tablet 2 mg PO BID 03/15/24 04/15/24 History ipratropium 0.5 mg-albuterol 3 mg 3 ml NEB Q6H PRN shortness of 03/15/24 04/15/24 History (2.5 mg base)/3 mL nebulization breath soln nystatin 100,000 unit/gram topical 1 applic topical TID PRN SKIN 03/15/24 04/15/24 History powder IRRITATION, UNDER BREASTS, ABD FOLDS Patient History Medical History Supracondylar fracture of right femur Choledocholithiasis with obstruction S/p ERCP with stent placement on 01/20/23 Obesity (BMI 30-39.9) Ovarian cancer dx'd 07/2020 - surgery + chemo Osteoarthritis Anxiety and depression Restless leg syndrome History of kidney stones History of renal calculi History of recurrent UTI (urinary tract infection) Spinal stenosis of lumbar region History of blood transfusion 05/2020 Kidney stones Irritable bowel syndrome (IBS) Anxiety Depression Ventral hernia Surgical History S/P left knee arthroscopy History of vascular access device removed History of ERCP (~09/2020) History of appendectomy (~09/07/20) History of total hysterectomy with bilateral salpingo-oophorectomy (BSO) (~09/07/20[place] [facility] [place] History of esophagogastroduodenoscopy (EGD) History of colonoscopy [place] teeth removed S/P adenoidectomy Family History Mother Scleroderma Lupus Family history of reaction to anesthesia nausea Father Coronary heart disease Heart disease Brother Fatty liver Aunt Cancer unspecified Grandfather (Paternal) Heart disease Grandfather (Maternal) Lung disease Grandmother (Paternal) Stroke Grandmother (Maternal) Family history of diabetes mellitus Social History Smoking Status: Current every day smoker Tobacco Type: Cigarettes Age Started Using Tobacco: 26; Age Quit Using Tobacco: 38; Cigarettes Per Day: 10-20; Second Hand Exposure: No; Do You Dip or Chew Tobacco: No; Tobacco Cessation Education Requested by Patient: No Hx Alcohol Use: No Hx Substance Use: No Preferred Language: Setswana Communication Ability: Effective Visual Impairment: No Limitations Community Affairs Manager Required: No Beliefs That Will Affect Care: None marital status: Current Living Situation: Alone Current Living Situation Comment: home health current occupational status: retired How many Children do You have: 0 Other Information That Helps Us Care for You: No Feels Safe at Home: Yes Safety Concerns: Feels Safe At This Time Diet: regular during the past year weight has: remained stable Assistive Devices: Glasses and Walker Review of Systems 2 Review of Systems: All systems reviewed & are unremarkable except as noted in HPI & below Physical Exam 2 Physical Exam: Constitutional: No acute distress HEENT: EOMI, PERRLA Respiratory system: Decreased air entry bilaterally, no wheeze, no rhonchi, positive Velcro-like crackles appreciated bilaterally CVS: S1-S2 positive, no murmurs or gallops, distant heart sounds Abdomen: Soft, nontender, nondistended, positive bowel sounds x4 Extremities: +2 pulses bilaterally radialis/ dorsalis pedis, no cyanosis, minimal pitting edema bilateral lower extremity Neuro: Awake alert oriented x3 Psych: Normal mood and affect G/U: Positive Yuen Skin: no rashes, warm and dry (Ecchymosis appreciated on the dorsal aspect of bilateral hands more on the ) Lymphatic: no cervical or axillary lymphadenopathy Results & Data Results & Data Vital Signs (Past 12 Hours) Vital Signs Temp Pulse Pulse Resp BP Pulse Ox Pulse Ox 04/16/24 10:18 92 04/16/24 08:00 36.5 C 77 20 139/71 96 04/16/24 07:51 76 20 96 04/16/24 07:51 76 20 92 04/16/24 06:07 67 17 97 04/16/24 05:06 67 20 98 04/16/24 04:01 75 18 95 04/16/24 03:52 73 18 94 04/16/24 03:38 36.5 C 73 22 146/75 H 93 04/15/24 23:40 77 21 93 04/15/24 23:39 77 21 93 04/15/24 23:00 79 04/15/24 22:38 36.5 C 77 20 138/76 91 O2 Del Method O2 Del Method O2 Flow Rate FiO2 04/16/24 10:18 High Flow Nasal Cannula 40 04/16/24 08:00 BiPAP 04/16/24 07:51 50 04/16/24 07:51 BiPAP 50 04/16/24 06:07 60 04/16/24 05:06 60 04/16/24 04:01 BiPAP 60 04/16/24 03:52 60 04/16/24 03:38 BiPAP 04/15/24 23:40 60 04/15/24 23:39 BiPAP 60 04/15/24 23:00 04/15/24 22:38 BiPAP Laboratory Results 04/16/24 04:11 04/16/24 04:11 PG Care Time/CCT Total # of Minutes Spent Total Time Spent with Patient: Total time spent is greater than 50% in coordination of care (as documented) at patient's floor/unit and/or counseling patient: Coding Level of Care Code 62556 INT INP/OBS CARE 3/75MIN Diagnoses Acute on chronic respiratory failure with hypoxia and hypercapnia J96.21; J96.22 Steroid dependent F19.20 Hypersensitivity pneumonitis J67.9 Pulmonary HTN I27.20 BERRY (obstructive sleep apnea) G47.33 Interstitial lung disease J84.9
--- OUTSIDE RECORDS SUMMARY | 2024-04-16 12:30 | External Medical Summary | Summary of Care ---
Author Name Unknown Organization [facility] Address [address] [place] [place] [place] [address] Phone [phone] Care Team Providers Care Bag Valver Name Role Phone Kat Hawthorne DO Primary Care Provider [phone] Reason for Visit * Reason Onset Date Comments [facility]: Maintenance 03/08/2024 Encounter Details Date Type Department Care Team (Late st Contact Info) Description 03/08/2024 Telephone [facility], [facility] [address] [facility] [address] July Diaz, RN [address] [place] [place] [address] [facility]: Maintenance Allergies Active Allergy Reactions Criticality Noted Date Comments Adhesive Tape Low 09/25/2022 Other reaction(s): SKIN BLISTERS SOME TIMES; steri strips tolerated Clindamycin High 09/25/2022 Other reaction(s): PT CONTRACTED C-DIFF Clindamycin Hcl 04/18/2014 Pt states she developed c diff Doxorubicin Liposome 12/12/2020 Infusion reaction Doxorubicin 09/25/2022 Other reaction(s): Hypoxia Levofloxacin Edema Other High 04/17/2016 Other reaction(s): LE swelling and blistering Paclitaxel 11/15/2020 Severe infusion reaction Other reaction(s): facial flushing, bradycardia Shellfish Allergy 01/26/2017 Topical betadine tolerated Shellfish-Derived Products Low Other reaction(s): NAUSEA,DIARRHEA, VOMITING documented as of this encounter (statuses as of 04/08/2024) Medications Medication Sig Dispensed Refills Start Date End Date Status Cholecalciferol (VITAMIN D) 1000 UNITS Tablet Take 2 Tablets by mouth in the morning. Active Folic Acid 1 MG Oral TabletIndications:An emia, unspecified type Take 1 tablet by mouth once daily 90 Tablet 3 12/09/2021 Active Docusate Sodium 100 MG Oral Capsule Take 1 Capsule by mouth in the morning and 1 Capsule before bedtime. Active Loratadine 10 MG Oral Tablet (Claritin) Take by mouth 1 Tablet in the morning. 34 Tablet 5 06/26/2022 Active oxygen IN GASIndications:ILD (interstitial lung disease) (HCC),Chronic respiratory failure with hypoxia (HCC) Use 2 LPM with exertion and 3 LPM with sleep. Needs small portable tanks, standing concentrator DME: [facility] 1 Each 07/02/2022 Active Proventil HFA 108 (90 Base) MCG/ACT Inhalation Aerosol SolutionIndications: ILD (interstitial lung disease) (HCC) Inhale by mouth 2 Puffs every 4 hours as needed for Wheezing. 6.7 g 3 2022 Active Sertraline HCl 100 MG Oral Tablet (Zoloft)Indications: Depression with anxiety Take 1 Tablet by mouth in the morning. 90 Tablet 3 01/11/2023 Active SF 5000 Plus 1.1 % Dental Cream APPLY A THIN LAYER TO TOOTHBRUSH AND BRUSH ONCE DAILY FOR 2 MINUTES, SPIT OUT, DO NOT RINSE 12/29/2022 Active Gabapentin 300 MG Oral Capsule (Neurontin) Take 1 Capsule by mouth in the morning and 1 Capsule at noon and 1 Capsule before bedtime. 90 Capsule 10 04/16/2023 Active Acetaminophen 325 MG Oral Tablet (Tylenol) Take 1 Tablet by mouth every 6 hours as needed. Active Omeprazole 20 MG Oral Capsule Delayed Release (PriLOSEC) Take 1 Capsule by mouth in the morning and 1 Capsule before bedtime. 180 Capsule 3 04/23/2023 Active Naproxen Sodium 220 MG Oral Capsule Take 1 Capsule by mouth daily as needed for Pain. Active Probiotic Daily Oral Capsule Take 1 Capsule by mouth in the morning. Active Nystatin 743857 UNIT/GM External Powder (Nystop) Apply topically to affected area 3 times a day. 60 g 5 05/29/2023 Active Sotalol HCl 80 MG Oral Tablet (Betapace) Take 1 Tablet by mouth in the morning and 1 Tablet before bedtime. 180 Tablet 3 06/08/2023 Active Ipratropium-Albutero l 0.5-2.5 (3) MG/3ML Inhalation Solution Inhale 3 mL by mouth every 6 hours as needed. Active Montelukast Sodium 10 MG Oral Tablet (Singulair) Take 1 Tablet by mouth in the morning. 90 Tablet 3 07/16/2023 Active Amoxicillin 500 MG Oral Capsule (Amoxil) Take 4 Capsules by mouth as needed (one hour prior to dental procedure) for up to 1 dose. 4 Capsule 3 10/13/2023 Active Hydrocortisone (Perianal) 2.5 % External CreamIndications:Hem orrhoids, external without complications Administer into the rectum 2 times a day. 28 g 1 10/19/2023 Active predniSONE 20 MG Oral Tablet (Deltasone) Take 3 tablet daily for 1 month, 2.5 tablets daily for 1 month, 2 tablets daily for 1 month, then 1.5 tablets daily until next visit, every morning with food, as instructed. 300 Tablet 10/23/2023 Active Sulfamethoxazole-Tri methoprim 800-160 MG Oral Tablet (Bactrim DS) Take 1 Tablet by mouth once a day on Thursday, Thursday, and Thursday only. until gone. 15 Tablet 3 10/23/2023 Active Additional Information Patient not taking.Reported on 03/21/2024 amLODIPine Besylate 5 MG Oral Tablet (Norvasc) Take 1 Tablet by mouth in the morning. 90 Tablet 1 11/20/2023 Active Fosfomycin Tromethamine 3 GM Oral Packet (Monurol)Indications :Recurrent UTI Take 3 g by mouth once a week. 12 Packet 2 01/27/2024 Active Cyclobenzaprine HCl 5 MG Oral Tablet (Flexeril)Indication s:Generalized osteoarthritis Take 1 tablet by mouth twice daily as needed for muscle spasm 60 Tablet 2 01/29/2024 Active Bumetanide 2 MG Oral Tablet TAKE 1 TABLET BY MOUTH TWICE DAILY (IN THE MORNING AND AT NOON) 60 Tablet 5 03/07/2024 Active documented as of this encounter (statuses as of 04/08/2024) Active Problems Problem Noted Date Diagnosed Date Type 2 diabetes mellitus wit h diabetic chronic kidney disease 03/28/2024 Last Assessment & Plan: Likely secondary to extended use of steroids Recent A1c at 7.1 Will need ongoing monitoring and consider treatment if remains elevated Hepatic cirrhosis 03/28/2024 Last Assessment & Plan: Per CT, stable Unspecified mood (affective) disorder 03/21/2024 Acquired hemolytic anemia 12/29/2023 Last Assessment & Plan: Following with hem/onc Continues prednisone taper Pulmonary hypertension, unspecified 12/29/2023 Last Assessment & Plan: Continue diuretics Does not tolerate CPAP Atrial fibrillation 12/29/2023 Last Assessment & Plan: Rate controlled Not on anticoag due to anemia Morbid (severe) obesity due to excess calories 0 12/29/2023 Stage 3 chronic kidney disease 12/29/2023 Secondary esophageal varices without bleeding Last Assessment & Plan: H/o Most recent imaging without varices COPD, group B, by GOLD 2017 classification 07/20 Overview: Per COPD GOLD Classification History of kidney stones 06/23/2023 Choledocholithiasis 04/21/2023 Last Assessment & Plan: Has stents, hoping for a cholecystectomy in the fall No pain, no diarrhea currently Old HI (myocardial infarction) 04/14/2023 Hyperlipidemia 04/14/2023 History of recent blood transfusion 01/13/2023 S/P total knee arthroplasty, left 01/05/2023 Prediabetes 12/22/2022 Overview: Per Prediabetes protocol History of ovarian cancer 12/19/2022 Heart failure with preserved left ventricular function (HFpEF) 12/19/2022 Last Assessment & Plan: "RED FLAG" HF Symptoms: Leg Swelling (Examples: "I can't wear certain socks or shoes", "My pants feel tight") Increased dyspnea on exertion (Example: "I can't walk to the kitchen or up the stairs") Medication Regimen: Beta Juan Therapy: Sotalol LYDIA Inhibitor/ARB Therapy: No LYDIA/ARB/ARNI secondary to: h/o TYLER Diuretic therapy: Bumex SGLT2 Inhibitor: No Current SGLT2 (Describe in the Comments) Remote Patient Monitoring Vendor: [facility] Device(s): Continuous Monitoring Device Exacerbation Plan Contact the HF Provider for IV Lasix guidance Additional Comments: Euvolemic today Bumex recently reduced Chronic respiratory failure with hypoxia 022 Last Assessment & Plan: On continuous supplemental o2 at 6lpm Will order humidifier for concentrator ILD (interstitial lung disease) 06/05/2022 Last Assessment & Plan: Following with pulmonary ILD clinic Gradual improvement in breathing and functional capacity Prednisone dose at 10mg daily Presence of cardiac pacemaker 03/26/2021 Last Assessment & Plan: secondary to tachy-lakeisha syndrome PAF (paroxysmal atrial fibrillation) 03/01/2021 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 03/01/2021 S/P MONIKA-BSO (total abdominal hysterectomy and bilateral salpingo-oophorectomy) 09/04/2020 PAT (paroxysmal atrial tachycardia) 12/09/2019 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 Atypical atrial flutter 09/01/2019 Obstructive sleep apnea of adult 09/01/2019 Last Assessment & Plan: Recently started using NIV Working with respiratory therapy Nocturnal hypoxia 09/01/2019 GERD with esophagitis 08/01/2019 GENERAL OSTEOARTHROSIS 06/27/2003 GENERALIZED ANXIETY DIS 12/30/2001 Essential hypertension with goal blood pressure less than 130/80 documented as of this encounter (statuses as of 04/08/2024) Resolved Problems Problem Noted Date Diagnosed Date Resolved Date Acute on chronic diastolic C HF (congestive heart failure) 07/16/2023 03/21/2024 Closed fracture of right fem ur with routine healing 04/21/2023 05/04/2023 Last Assessment & Plan: Surgery with Dr. Shah on 03/03: Date of Operation: 03/03/2023 Pre-op Diagnosis: 1) Osteoporotic right distal femur fracture 2) Osteoarthritis of the right knee Post-op Diagnosis: Same Operation: 1) Resection of the right distal femur (approx 12 cm) 2) Right distal femoral replacement Surgeon: Cholo Shah MD Open wound of foot, right, s ubsequent encounter 04/21/2023 03/22/2024 Last Assessment & Plan: S/P wound vac placement at [facility] On doxycycline 100 mg BID x 14 days Chronic obstructive pulmonary disease 04/14/2023 07/23/2023 Overview: Per COPD GOLD Classification Hereditary hemolytic anemia, unspecified 04/14/2023 03/22/2024 Hypertension with congestive heart failure and renal failure 04/14/2023 04/21/2023 Hyponatremia 03/09/2023 04/21/2023 Acute blood loss anemia 03/04/202304/09 Age-related osteoporosis wit h current pathological fracture of right femur 03/01/2023 Postoperative anemia due to acute blood loss 3 04/21/2023 Current moderate episode of major depressive disorder without prior episode 12/19/2022 Severe obesity with body mas s index (BMI) of 35.0 to 39.9 with serious comorbidity 12/19/2022 Pulmonary HTN 06/05/2022 03/22/2024 Chronic kidney disease, stage 3a 08/19/2021 02/05/2022 Overview: Per CKD protocol duplicate Hypertensive heart disease with heart failure 03/01/20 21 12/16/2022 Overview: More specified code listed on PL Hypertensive kidney disease with stage 3a chronic kidney disease 09/17/2020 04/21/2023 Overview: Per CKD protocol Ovarian cancer on left 08/09/202003/18 Cancer Staging:Clinical stage from 09/04/2020:FIGO Stage IC2(cT1c2, cM0) - Signed by Harjeet Li MD on 09/12/2020 Overview: History - s/p surgery & treatment per SAFETY TECH note on 11/18/23 Ca 125: 68.8 U/mL Ca 19-9: 79.4 CEA: 10.2 Pelvic U/S: There is a heterogenous, solid and cystic mass measuring 13.7 x 9.5 x 11.4 cm. There may be a thick septation with a polypoid intraluminal mass. Ovarian malignancy is favored over necrotic myoma. CT A/P: Generalized nodular uterus with the uterus measuring 11.3 centimeters in anterior-posterior diameter, 11.4 centimeters in transverse diameter 12.6 centimeters in craniocaudal diameter. 09/04/2020: Exploratory laparotomy, total abdominal hysterectomy, bilateral salpingo-oophorectomy and omentectomy. Anemia in other chronic dise ases classified elsewhere 12/09/2019 03/22/2024 Last Assessment & Plan: Prednisone for hemolytic anemia Hg trending up 60 mg of prednisone currently Anemia 09/12/2019 03/22/2024 Hypertensive kidney disease with chronic kidney disease stage III 01/05/2019 09/20/2020 Overview: Per CKD protocol Recurrent UTI 03/09/2017 01/05/2019 Nephrolithiasis 12/29/2016 06/23/2023 Kidney disease, chronic, sta ge III (GFR 30-59 ml/min) 11/17/2016 01/18/2019 Overview: Per CKD protocol #1 Depression with anxiety 10/30/2015 03/0 06/2023 SOB (shortness of breath) 09/10/2012 Class 2 obesity in adult 04/23/201004/2022 Overview: Per Obesity Protocol, #19 ICD-10 update of inactive term MORE SPECIFIED CODE LISTED ON PL Notalgia Paresthetica (L) 06/23/2007 ADVANCE DIRECTIVE INFORMATION 05/07/2006 03/03/2018 Overview: Booklet given to pt today. Esophageal reflux 08/01/2019 Major depressive disorder Overview: ICD-10 update of inactive term documented as of this encounter (statuses as of 04/08/2024) Immunizations Name Administration Dates Next Due COVID-19 mRNA, LNP-s, No Pre serve, 2-Dose Series (LoveSurf) 08/23/2021,01/26/2021,01/05/2021 Pneumococcal Conjugate Vacc, 13 Valent (Prevnar) 09/03/2018 Pneumococcal Polysaccharide PPV23 (Pneumovax) 05/17/2020 Season Influenza, Quad, PF, Adjuvanted, 65+ Yrs, IM (FLUAD) 07/25/2020 Seasonal Influenza Virus Vac cine, Unspecified Formulation 09/03/2018,07/21/2017,07/09/2017,07/29,12/05/2015 Seasonal Influenza, PF, 6 M & above, IM , (FluLaval or Fluzone) 09/03/2018,07/21/2017 Seasonal Influenza, Quadriva lent Hd (Fluzone Hd) 07/16/2023,2022 Seasonal Influenza, Quadriva lent Hd, 65+ Yrs 08/16/2021 Seasonal Influenza, Quadriva lent, No Preserve, IM 07/29/2016,12/05/2015 Seasonal Influenza, Trivalen t, High Dose, No Preserve, IM 08/18/2019,09/03/2018 TDAP (age 10 and older)(Boostrix) 09/02/2021 TDAP, Age 7 and older, IM (Adacel) 02/27/2009(Grubbs: Patient Refused) Zoster Vaccine Recombinant (Shingrix) 06/03/2021 ,03/19/2021 documented as of this encounter Social History Tobacco Use Types Packs/Day Years Used Date Smoking Tobacco: Former Cigarettes 0 5 1 11/10/2005 - 09/10/2011 Passive Smoke Exposure: Never Smokeless Tobacco: Never Comments:Only smoked on week ends when went to bars. Alcohol Use Standard Drinks/Week Comments No 0 (1 standard drink = 0.6 oz pur e alcohol) PHQ-2 Answer Date Recorded PHQ Adult Total Score 1 03/21/2024 Hunger Vital Sign Answer Date Recorded Within the past 12 months, y ou worried that your food would run out before you got the money to buy more. Patient declined Within the past 12 months, t he food you bought just didn't last and you didn't have money to get more. Patient declined Sex and Gender Information Value Date Recorded Sex Assigned at Female 01/28/2023 10:58 AM EDT Gender Identity Female 01/28/2023 10:58 AM EDT Sexual Orientation Straight 09/02/2021 2: 54 PM EDT Job Start Date Occupation Industry Not on file Not on file Not on file documented as of this encounter Functional Status Functional Status Response Date of Assess ment Are you deaf or do you have serious difficulty h earing? No 02/28/2023 Are you blind or do you have serious difficulty seeing, even when wearing glasses? No 02/28/2023 Do you have serious difficul ty walking or climbing stairs? (5 years old or older) No 03/01/2023 Do you have difficulty dress ing or bathing? (5 years old or older) No 02/28/2023 Because of a physical, menta l, or emotional condition, do you have difficulty doing errands alone such as visiting a doctor s office or shopping? (15 years old or older) No 02/29/20 Cognitive Status Response Date of Assessm ent Because of a physical, menta l, or emotional condition, do you have serious difficulty concentrating, remembering, or making decisions? (5 years old or older) No 02/28/2023 documented as of this encounter Miscellaneous Notes * Telephone Encounter - July Diaz RN - 03/08/2024 12:33 PM EDT Juli I see in the last Pulmonary note that it was advised that pt should be referred to [facility] clinic for possible NIV for her hypercapnia. She has not heard anything about this yet. Can you please have this set up if that is going to be the plan for her? Thank you!! documented in this encounter Plan of Treatment Upcoming Encounters Date Type Department Care Team (Late st Contact Info) Description 05/05/2024 10:30 AM EDT Office Visit [facility] [address] Cholo Shah MD [address] [place] [address] 05/10/2024 10:30 AM EDT Office Visit Gynecology/Oncology, [place] [address] [place] [address] Jeanie Gunter PA-C [address] [place] [address] 08/29/2024 11:00 AM EDT Office Visit Cardiology, [facility] [address] [place] [address] Shilpi Bailey PA-C [address] [place] [address] 10/07/2024 11:50 AM EST Office Visit [facility] [address] [place] [id number] Kat Hawthorne, [address], [place] [id number] Scheduled Procedures Name Priority Associated Diagnoses Date/Ti me ESOPHAGOGASTRODUODENOSCOPY ( EGD), FLEXIBLE, TRANSORAL, ENDOSCOPIC ULTRASOUND Choledocholithiasis ENDOSCOPIC RETROGRADE CHOLANGIOPANCREATOGRAPHY (ERCP) DIAGNOSTIC Choledocholithiasis ESOPHAGOGASTRODUODENOSCOPY ( EGD), FLEXIBLE, TRANSORAL, DIAGNOSTIC Choledocholithiasis COLONOSCOPY FLEXIBLE PROXIMAL DIAGNOSTIC Recall Colon cancer screening Health Maintenance Due Date Last Done Comments DXA Scan 1953 Alpha-1 Antitrypsin 1971 Diabetic Foot Exam 1971 Cologuard 1998 Fecal Occult Blood Test 1998 Sigmoidoscopy 1998 Hepatitis B (1 of 3 - Risk 3-dose series) 2013 COVID-19 Vaccine ( season) 2023 08/23/2021, 08/02/2021, 01/26/2021, Additional history exists Diabetic Eye Exam 01/31/2024 01/30/2023, 08/16/2021 GFR 09/21/2024 03/21/2024, 04/0 06/2024, 12/09/2023, Additional history exists HbA1c 09/21/2024 03/21/2024, 02/0 07/2023, 05/27/2018, Additional history exists Mammogram 12/09/2024 12/09/2023, 04/10, 03/07/2021, Additional history exists CKD HGB USE SMARTSET 71930 03/21/202503/21, 02/15/2024, 02/15/2024, Additional history exists CKD PHOS USE SMARTSET 39545 03/21/202503/09, 03/16/2023, 03/15/2023, Additional history exists Depression Screening 03/21/2025 03/21/2024 O2 ASSESSMENT COMPLETED IN PAST YEAR FOR COPD 03/21/2025 03/21/2024 Albumin/Creatinine Ratio 03/22/2025 024, 09/04/2021, 01/27/2019, Additional history exists Lipid Panel 09/03/2027 09/03/2022, 09/09, 08/02/2019, Additional history exists Colonoscopy 07/27/2030 07/27/2020, 09/25/2017 Colorectal Cancer Screening 07/27/2030 DTaP,Tdap,and Td Vaccines (2 - Td or Tdap) 09/02/2031 09/02/2021 Pneumococcal Vaccine: 65+ Years Completed 05/17/2020, 09/03/2018 Zoster Vaccines Completed 06/03/2021, 03/19/2021 Influenza Vaccine (FLU shot) Completed 05/2023, 2022, 08/16/2021, Additional history exists GARDASIL-HPV IMMUNIZATION SERIES Aged Out No longer eligible based on patient's age to complete this topic MENINGOCOCCAL (MENACTRA/MENVEO) Aged Out No longer eligible based on patient's age to complete this topic documented as of this encounter Medical Devices Implanted Type Area Die Cast Technician Device Identifier Shelf Expiration Date Model / Serial / Lot Cement Bone Simplex Hv & G - [id number] Implanted:Qty: 2 on 01/05/2023 by Harley Nguyen DO at OR [facility] Left: Knee [employer] : [employer] 06/08/2024 6195-1-010 / / [id number] Component Femoral Size 5 - [id number] Implanted:Qty: 1 on 01/05/2023 by Harley Nguyen DO at OR [facility] Left: Knee [employer] : [employer] 08/09/2026 5510-F-501 / / [id number] Knee Tria Syetric X3 10x36 - [id number] Implanted:Qty: 1 on 01/05/2023 by Harley Nguyen DO at OR [facility] Left: Knee [employer] : [employer] 09/24/2027 5550-G-360 -E / / [id number] Baseplate Tib 5 Knee - [id number] Implanted:Qty: 1 on 01/05/2023 by Harley Nguyen DO at OR [facility] Left: Knee [employer] : [employer] 12/14/2027 5521-B-500 / / [id number] Knee X3 Ins Pos Cs Sz5 9 - [id number] Implanted:Qty: 1 on 01/05/2023 by Harley Nguyen DO at OR [facility] Left: Knee [employer] : [employer] 11/19/2027 5531-G-509 -E / / [id number] Cement Bone Full Mix Surg Simp - [id number] Implanted:Qty: 1 on 03/03/2023 by Cholo Shah MD [place] [facility] [place]: Knee [employer] : [employer] 05/08/2025 6191-1-010 / / [id number] Knee Tib Comp Poly Krh 8 Lg - [id number] Implanted:Qty: 1 on 03/03/2023 by Cholo Shah MD [place] [facility] [place]: Knee [employer] : [employer] 07/19/2023 6485-2-308 / / [id number] Knee Hrhk Mod Rot Hng Bushing - [id number] Implanted:Qty: 1 on 03/03/2023 by Cholo Shah MD at [place] [facility] [place]: Knee [employer] : [employer] 01/09/2027 6481-2-110 / / [id number] Knee Hrhk Mod Rot Hng Bushing - [id number] Implanted:Qty: 1 on 03/03/2023 by Cholo Shah MD [place] [facility] [place]: Knee [employer] : [employer] 11/21/2026 6481-2-110 / / [id number] Knee Stem Crv Mod Mrs 06r612 - [id number] Implanted:Qty: 1 on 03/03/2023 by Cholo Shah MD at [place] [facility] [place]: Knee [employer] : [employer] 10/02/2026 6485-3-715 / / [id number] Tib Mrh Cross Bear Long Xs/Xl - [id number] Implanted:Qty: 1 on 03/03/2023 by Cholo Shah MD at [place] [facility] [place]: Knee [employer] : [employer] 12/05/2025 6481-2-103 / / [id number] Knee Tib Bumper Rot Hng Nue - [id number] Implanted:Qty: 1 on 03/03/2023 by Cholo Shah MD at [place] [facility] [place]: Knee [employer] : [employer] 07/15/2027 6481-2-130 / / [id number] Distal Femoral Component Implanted:Qty: 1 on 03/03/2023 by Cholo Shah MD at [place] [facility] [place]: Knee [employer] : [employer] 08/23/2023 6495-2-040 / / [id number] Knee Axle Hrhk Rot Mod Hng - [id number] Implanted:Qty: 1 on 03/03/2023 by Cholo Shah MD at [place] [facility] [place]: Knee [employer] : [employer] 06/30/2027 6481-2-120 / / [id number] Restrictors Med Cmnt W908-6280 - [id number] Implanted:Qty: 1 on 03/03/2023 by Cholo Shah MD at [place] [facility] [place]: Knee [employer] : [employer] 11/18/2027 [id number] / / Cement Bone Full Mix Surg Simp - [id number] Implanted:Qty: 1 on 03/03/2023 by Cholo Shah MD at [place] [facility] [place]: Knee [employer] : [employer] 07/09/2025 6191-1-010 / / [id number] Cement Bone Full Mix Surg Simp - [id number] Implanted:Qty: 1 on 03/03/2023 by Cholo Shah MD at [place] [facility] [place]: Knee [employer] : [employer] 06/08/2025 6191-1-010 / / [id number] Cement Bone Full Mix Surg Simp - [id number] Implanted:Qty: 1 on 03/03/2023 by Cholo Shah MD at [place] [facility] [place]: Knee [employer] : [employer] 05/08/2025 6191-1-010 / / [id number] Knee Fem Gmrs Dis Std R - [id number] Implanted:Qty: 1 on 03/10/2023 by Cholo Shah MD at [place] [facility] [place]: Knee [employer] : [employer] 10/21/2027 6495-2-040 / / [id number] Knee Hrhk Mod Rot Hng Bushing - [id number] Implanted:Qty: 1 on 03/10/2023 by Cholo Shah MD at [place] [facility] [place]: Knee [employer] : [employer] 01/29/2027 6481-2-110 / / [id number] Knee Axle Hrhk Rot Mod Hng - [id number] Implanted:Qty: 1 on 03/10/2023 by Cholo Shah MD at [place] [facility] [place]: Knee [employer] : [employer] 09/15/2027 6481-2-120 / / [id number] Tib Mrh Cross Bear Long Xs/Xl - [id number] Implanted:Qty: 1 on 03/10/2023 by Cholo Shah MD at [place] [facility] [place]: Knee [employer] : [employer] 09/30/2027 6481-2-103 / / [id number] Knee Hrhk Mod Rot Hng Bushing - [id number] Implanted:Qty: 1 on 03/10/2023 by Cholo Shah MD at [place] [facility] [place]: Knee [employer] : ORTH[employer] 04/24/2027 6481-2-110 / / [id number] Knee Tib Bumper Rot Hng Nue - [id number] Implanted:Qty: 1 on 03/10/2023 by Cholo Shah MD at [facility] [address] Right: Knee [employer] : ORTH[employer] 10/15/2027 6481-2-130 / / [id number] documented as of this encounter Advance Directives Documents on File Type Date Recorded Patient 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 Question Answer Comments Discussion of Advance Directives occurred with: Patient * Full Code Date Activated Date Inactivated Comments 02/28/2023 6:10 PM 02/28/2023 6:12 PM This order r eflects the patients wishes and were consensually agreed upon. Question Answer Comments Discussion of Advance Direct tam occurred with: Not Discussed due to patient's condition * Full Code Date Activated Date Inactivated Comments 01/05/2023 4:03 PM 01/10/2023 4:25 PM This order re flects the patients wishes and were consensually agreed upon. Question Answer Comments Discussion of Advance Directives occurred with: Patient * Full Code Date Activated Date Inactivated Comments 09/04/2020 9:21 AM 09/05/2020 5:41 PM This order reflects the patients wishes and were consensually agreed upon. Care Teams Bag Valver Relationship Specialty Start Date End Date Kat Hawthorne DO [address] [place] [address] PCP - General Family Medicine 08/20/22 documented as of this encounter
--- OUTSIDE RECORDS SUMMARY | 2024-04-16 12:30 | External Medical Summary | Summary of Care ---
Author Name Unknown Organization [facility] Address [address] [place] [address] Phone [phone] Care Team Providers Care Sand Hauler Name Role Phone Kat Hawthorne DO Primary Care Provider [phone] Reason for Visit * Reason Onset Date Comments [facility]: Maintenance 04/06/2024 Encounter Details Date Type Department Care Team (Late st Contact Info) Description 04/06/2024 Telephone [facility], [facility] [address] [place] [address] [facility], Nurse [place] [id number] [place] [address] [facility]: Maintenance Allergies Active Allergy [...] as of this encounter (statuses as of 04/06/2024) Medications Medication Sig Dispensed Refills Start Date [...] Active oxygen IN GASIndications:ILD (interstitial lung disease) ([facility]),Chronic respiratory failure with hypoxia (HCC) Use 2 LPM with exertion and 3 LPM with sleep. Needs small portable tanks, standing concentrator DME: [facility] 1 Each 07/02/2022 Active Proventil HFA 108 (90 Base) MCG/ACT Inhalation Aerosol SolutionIndications: ILD (interstitial lung disease) ([facility]) Inhale by mouth 2 Puffs every 4 [...] by mouth in the morning. Active Nystatin 756250 UNIT/GM External Powder (Nystop) Apply topically to [...] muscle spasm 60 Tablet 2 01/29/2024 Active LORazepam 0.5 MG Oral Tablet (Ativan)Indications: BILLY (generalized anxiety disorder) Take 1 Tablet by mouth every 8 hours as needed for Anxiety. 60 Tablet 03/04/2024 Active Bumetanide 2 MG Oral Tablet TAKE 1 TABLET BY MOUTH TWICE DAILY (IN THE MORNING AND AT NOON) 60 Tablet 5 03/07/2024 Active hydrOXYzine HCl 25 MG Oral TabletIndications:Pr uritus TAKE 1 TABLET BY MOUTH AT BEDTIME NEEDED FOR ITCHING 30 Tablet 3 03/22/2024 Active documented as of this encounter (statuses as of 04/06/2024) Active Problems Problem Noted Date Diagnosed Date [...] fall No pain, no diarrhea currently Old ND (myocardial infarction) 04/14/2023 Hyperlipidemia 04/14/2023 History of [...] as of this encounter (statuses as of 04/06/2024) Resolved Problems Problem Noted Date Diagnosed Date [...] & Plan: S/P wound vac placement at [facility] On doxycycline 100 mg BID x 14 [...] History - s/p surgery & treatment per [employer] note on 11/18/23 Ca 125: 68.8 U/mL [...] as of this encounter (statuses as of 04/06/2024) Immunizations Name Administration Dates Next Due COVID-19 mRNA, LNP-s, No Pre serve, 2-Dose Series (Pfizer) 08/23/2021,01/26/2021,01/05/2021 Pneumococcal Conjugate Vacc, 13 Valent (Prevnar) [...] encounter Miscellaneous Notes * Telephone Encounter - Lizzette Stephens LPN - 04/06/2024 3:58 PM EDT Please discharge the patient from [facility]. Device(s) to be discontinued: all devices due to not using them . Thank you. Ok to d/c per SAMMY Pena * Telephone Encounter - Lizzette Stephens LPN - 04/06/2024 10:44 AM EDT Images from the original note were not included. [facility] Remote Patient Monitoring Spoke to patient she hasn't been wearing it and asking if it can be d/c Will send to care team Denies any issues at this time documented in this encounter Plan of Treatment Upcoming Encounters Date Type Department Care Team (Late st Contact Info) Description 05/05/2024 10:30 AM EDT Office Visit Orthopaedics, [place] [address], [place] [id number] Cholo Shah MD [address] [place] [address] 05/10/2024 10:30 AM EDT Office Visit Gynecology/Oncology, [place] [address] [place] [address] Jeanie Gunter PA-C [address] [place] [address] 08/29/2024 11:00 AM EDT Office Visit Cardiology, [facility] [address] [facility] [place] [address] Shilpi Bailey PA-C [address] [facility] [place] [address] 10/07/2024 11:50 AM EST Office Visit [facility] [address] [place] [id number] Kat Hawthorne DO [address] [place] [address] Scheduled Procedures Name Priority Associated Diagnoses Date/Ti [...] Additional history exists CKD HGB USE SMARTSET 70039 03/21/202503/21, 02/15/2024, 02/15/2024, Additional history exists CKD PHOS USE SMARTSET 41058 03/21/202503/09, 03/16/2023, 03/15/2023, Additional history exists Depression [...] this encounter Medical Devices Implanted Type Area Silk Presser Device Identifier Shelf Expiration Date Model / Serial / Lot Cement Bone Simplex Hv & G - [id number] Implanted:Qty: 2 on 01/05/2023 by Harley Nguyen, DO at OR [facility] Left: Knee [employer] : [employer] 06/08/2024 6195-1-010 / / [id number] Component Femoral Size 5 - [id number] Implanted:Qty: 1 on 01/05/2023 by Harley Nguyen DO at OR [facility] Left: Knee [employer] : [employer] 08/09/2026 5510-F-501 / / [id number] Knee Tria Syetric X3 10x36 - [id number] Implanted:Qty: 1 on 01/05/2023 by Harley Nguyen DO at OR [facility] Left: Knee [employer] : [employer] 09/24/2027 5550-G-360 -E / / [id number] Baseplate Tib 5 Knee - [id number] Implanted:Qty: 1 on 01/05/2023 by Harley Nguyen DO at OR [facility] Left: Knee [employer] : [employer] 12/14/2027 5521-B-500 / / [id number] Knee X3 Ins Pos Cs Sz5 9 - [id number] Implanted:Qty: 1 on 01/05/2023 by Harley Nguyen DO at OR [facility] Left: Knee [employer] : [employer] 11/19/2027 5531-G-509 -E / / [id number] Cement Bone Full Mix Surg Simp - [id number] Implanted:Qty: 1 on 03/03/2023 by Cholo Shah MD at OR [facility] Right: Knee [employer] : [employer] 05/08/2025 6191-1-010 / / [id number] Knee Tib Comp Poly Krh 8 Lg - [id number] Implanted:Qty: 1 on 03/03/2023 by Cholo Shah MD at OR [facility] Right: Knee [employer] : [employer] 07/19/2023 6485-2-308 / / [id number] Knee Hrhk Mod Rot Hng Bushing - [id number] Implanted:Qty: 1 on 03/03/2023 by Cholo Shah MD at OR [facility] Right: Knee [employer] : OR[employer] 01/09/2027 6481-2-110 / / [id number] Knee Hrhk Mod Rot Hng Bushing - [id number] Implanted:Qty: 1 on 03/03/2023 by Cholo Shah MD at OR [facility] Right: Knee [employer] : [employer] 11/21/2026 6481-2-110 / / [id number] Knee Stem Crv Mod Mrs 94m217 - [id number] Implanted:Qty: 1 on 03/03/2023 by Cholo Shah MD at OR [facility] Right: Knee [employer] : OR[employer] 10/02/2026 6485-3-715 / / [id number] Tib Mrh Cross Bear Long Xs/Xl - [id number] Implanted:Qty: 1 on 03/03/2023 by Cholo Shah MD at OR [facility] Right: Knee [employer] : OR[employer] 12/05/2025 6481-2-103 / / [id number] Knee Tib Bumper Rot Hng Nue - [id number] Implanted:Qty: 1 on 03/03/2023 by Cholo Shah MD at OR [facility] Right: Knee [employer] : ORTH[employer] 07/15/2027 6481-2-130 / / [id number] Distal Femoral Component Implanted:Qty: 1 on 03/03/2023 by Cholo Shah MD at OR [facility] Right: Knee [employer] : OR[employer] 08/23/2023 6495-2-040 / / [id number] Knee Axle Hrhk Rot Mod Hng - [id number] Implanted:Qty: 1 on 03/03/2023 by Cholo Shah MD at OR [facility] Right: Knee [employer] : OR[employer] 06/30/2027 6481-2-120 / / [id number] Restrictors Med Cmnt Y518-5850 - [id number] Implanted:Qty: 1 on 03/03/2023 by Cholo Shah MD at OR [facility] Right: Knee [employer] : ORTH[employer] 11/18/2027 U840-5422 / / Cement Bone Full Mix Surg Simp - [id number] Implanted:Qty: 1 on 03/03/2023 by Cholo Shah MD at OR [facility] Right: Knee [employer] : [employer] 07/09/2025 6191-1-010 / / [id number] Cement Bone Full Mix Surg Simp - [id number] Implanted:Qty: 1 on 03/03/2023 by Cholo Shah MD at OR [facility] Right: Knee [employer] : OR[employer] 06/08/2025 6191-1-010 / / [id number] Cement Bone Full Mix Surg Simp - [id number] Implanted:Qty: 1 on 03/03/2023 by Cholo Shah MD at OR [facility] Right: Knee [employer] : [employer] 05/08/2025 6191-1-010 / / [id number] Knee Fem Gmrs Dis Std R - [id number] Implanted:Qty: 1 on 03/10/2023 by Cholo Shah MD at OR [facility] Right: Knee [employer] : [employer] 10/21/2027 6495-2-040 / / [id number] Knee Hrhk Mod Rot Hng Bushing - [id number] Implanted:Qty: 1 on 03/10/2023 by Cholo Shah MD at OR [facility] Right: Knee [employer] : OR[employer] 01/29/2027 6481-2-110 / / [id number] Knee Axle Hrhk Rot Mod Hng - [id number] Implanted:Qty: 1 on 03/10/2023 by Cholo Shah MD at OR [facility] Right: Knee [employer] : [employer] 09/15/2027 6481-2-120 / / [id number] Tib Mrh Cross Bear Long Xs/Xl - [id number] Implanted:Qty: 1 on 03/10/2023 by Cholo Shah MD at OR [facility] Right: Knee [employer] : ORTH[employer] 09/30/2027 6481-2-103 / / [id number] Knee Hrhk Mod Rot Hng Bushing - [id number] Implanted:Qty: 1 on 03/10/2023 by Cholo Shah MD at OR [facility] Right: Knee [employer] : ORTH[employer] 04/24/2027 6481-2-110 / / [id number] Knee Tib Bumper Rot Hng Nue - [id number] Implanted:Qty: 1 on 03/10/2023 by Cholo Shah MD at OR [facility] Right: Knee [employer] : ORTH[employer] 10/15/2027 6481-2-130 / / [id number] documented as of this encounter Advance Directives Documents on File Type Date Recorded Patient Transplant Immunologist Expl 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 Care Teams Sand Hauler Relationship Specialty Start Date End Date Kat Hawthorne DO [address], [place] [id number] PCP - General Family Medicine 08/20/22 documented as of this encounter
--- OUTSIDE RECORDS SUMMARY | 2024-04-16 12:30 | External Medical Summary | Summary of Care ---
Author Name Unknown Organization [facility] Address [address] [place] [address] Phone [phone] Care Team Providers Care Glass Curvature Gauger Name Role Phone Antonia Hawthorne DO Primary Care Provider Reason for Visit * Reason Onset Date Comments Medication Refill 04/05/2024 Encounter Details Date Type Department Care Team (Late st Contact Info) Description 04/05/2024 Refill [facility] [address] [place] [address] Antonia Hawthorne DO [address] [place] [address] BILLY (generalized anxiety disorder) Allergies Active Allergy Reactions Criticality Noted Date [...] as of this encounter (statuses as of 04/07/2024) Medications Medication Sig Dispensed Refills Start Date End Date Status Cholecalciferol (VITAMIN D) 1000 UNITS Tablet Take 2 Tablets by mouth in the morning. Active Folic Acid 1 MG Oral TabletIndications:A nemia, unspecified type Take 1 tablet by mouth once daily 90 Tablet 3 2 Active Docusate Sodium 100 MG Oral Capsule Take 1 Capsule by mouth in the morning and 1 Capsule before bedtime. Active Loratadine 10 MG Oral Tablet (Claritin) Take by mouth 1 Tablet in the morning. 34 Tablet 5 2 Active oxygen IN GASIndications:ILD (interstitial lung disease) ([facility]),Chronic respiratory failure with hypoxia (HCC) Use 2 LPM with exertion and 3 LPM with sleep. Needs small portable tanks, standing concentrator DME: [facility] 1 Each 2 Active Proventil HFA 108 (90 Base) MCG/ACT Inhalation Aerosol SolutionIndications :ILD (interstitial lung disease) (HCC) Inhale by mouth 2 Puffs every 4 hours as needed for Wheezing. 6.7 g 3 2 Active Sertraline HCl 100 MG Oral Tablet (Zoloft)Indications :Depression with anxiety Take 1 Tablet by mouth in the morning. 90 Tablet 3 3 Active SF 5000 Plus 1.1 % Dental Cream APPLY A THIN LAYER TO TOOTHBRUSH AND BRUSH ONCE DAILY FOR 2 MINUTES, SPIT OUT, DO NOT RINSE 3 Active Gabapentin 300 MG Oral Capsule (Neurontin) Take 1 Capsule by mouth in the morning and 1 Capsule at noon and 1 Capsule before bedtime. 90 Capsule 10 3 Active Acetaminophen 325 MG Oral Tablet (Tylenol) Take 1 Tablet by mouth every 6 hours as needed. Active Omeprazole 20 MG Oral Capsule Delayed Release (PriLOSEC) Take 1 Capsule by mouth in the morning and 1 Capsule before bedtime. 180 Capsule 3 3 Active Naproxen Sodium 220 MG Oral Capsule Take 1 Capsule by mouth daily as needed for Pain. Active Probiotic Daily Oral Capsule Take 1 Capsule by mouth in the morning. Active Nystatin 137991 UNIT/GM External Powder (Nystop) Apply topically to affected area 3 times a day. 60 g 5 3 Active Sotalol HCl 80 MG Oral Tablet (Betapace) Take 1 Tablet by mouth in the morning and 1 Tablet before bedtime. 180 Tablet 3 3 Active Ipratropium-Albuter ol 0.5-2.5 (3) MG/3ML Inhalation Solution Inhale 3 mL by mouth every 6 hours as needed. Active Montelukast Sodium 10 MG Oral Tablet (Singulair) Take 1 Tablet by mouth in the morning. 90 Tablet 3 3 Active Amoxicillin 500 MG Oral Capsule (Amoxil) Take 4 Capsules by mouth as needed (one hour prior to dental procedure) for up to 1 dose. 4 Capsule 3 3 Active Hydrocortisone (Perianal) 2.5 % External CreamIndications:He morrhoids, external without complications Administer into the rectum 2 times a day. 28 g 1 3 Active predniSONE 20 MG Oral Tablet (Deltasone) Take 3 tablet daily for 1 month, 2.5 tablets daily for 1 month, 2 tablets daily for 1 month, then 1.5 tablets daily until next visit, every morning with food, as instructed. 300 Tablet 3 Active Sulfamethoxazole-Tr imethoprim 800-160 MG Oral Tablet (Bactrim DS) Take 1 Tablet by mouth once a day on Thursday, Thursday, and Thursday only. until gone. 15 Tablet 3 3 Active Additional Information Patient not taking.Reported on 03/21/2024 amLODIPine Besylate 5 MG Oral Tablet (Norvasc) Take 1 Tablet by mouth in the morning. 90 Tablet 1 4 Active Fosfomycin Tromethamine 3 GM Oral Packet (Monurol)Indication s:Recurrent UTI Take 3 g by mouth once a week. 12 Packet 2 4 10/05/20 24 Active Cyclobenzaprine HCl 5 MG Oral Tablet (Flexeril)Indicatio ns:Generalized osteoarthritis Take 1 tablet by mouth twice daily as needed for muscle spasm 60 Tablet 2 4 Active Bumetanide 2 MG Oral Tablet TAKE 1 TABLET BY MOUTH TWICE DAILY (IN THE MORNING AND AT NOON) 60 Tablet 5 4 Active hydrOXYzine HCl 25 MG Oral TabletIndications:P ruritus TAKE 1 TABLET BY MOUTH AT BEDTIME NEEDED FOR ITCHING 30 Tablet 3 4 Active LORazepam 0.5 MG Oral Tablet (Ativan)Indications :BILLY (generalized anxiety disorder) Take 1 Tablet by mouth every 8 hours as needed for Anxiety. 60 Tablet 4 Active LORazepam 0.5 MG Oral Tablet (Ativan)Indications :BILLY (generalized anxiety disorder) Take 1 Tablet by mouth every 8 hours as needed for Anxiety. 60 Tablet 4 04/05/20 24 Discontinu ed(Refill) documented as of this encounter (statuses as of 04/07/2024) Active Problems Problem Noted Date Diagnosed Date [...] fall No pain, no diarrhea currently Old LA (myocardial infarction) 04/14/2023 Hyperlipidemia 04/14/2023 History of [...] as of this encounter (statuses as of 04/07/2024) Resolved Problems Problem Noted Date Diagnosed Date [...] & Plan: S/P wound vac placement at [facility] On doxycycline 100 mg BID x 14 days Chronic obstructive pulmonary disease 04/14/2023 07/23/2023 Overview: Per COPD GOLD Classification Hereditary hemolytic anemia, unspecified 04/14/2023 03/22/2024 Hypertension with congestive heart failure and renal failure 04/14/2023 04/21/2023 Hyponatremia 03/09/2023 04/21/2023 Acute blood loss anemia 03/04/202304/09 Age-related osteoporosis wit h current pathological fracture of right femur 03/01/2023 Postoperative anemia due to acute blood loss 04/21/2023 Current moderate episode of major depressive [...] History - s/p surgery & treatment per [employer] note on 11/18/23 Ca 125: 68.8 U/mL [...] CKD protocol #1 Depression with anxiety 10/30/2015 03/3 SOB (shortness of breath) 09/10/2012 Class 2 obesity in adult 04/23/201004/2022 Overview: Per Obesity Protocol, #19 ICD-10 update of inactive term MORE SPECIFIED CODE LISTED ON PL Notalgia Paresthetica (L) 06/23/2007 ADVANCE DIRECTIVE INFORMATION 05/07/2006 03/03/2018 Overview: Booklet given to pt today. Esophageal reflux 08/01/2019 Major depressive disorder Overview: ICD-10 update of inactive term documented as of this encounter (statuses as of 04/07/2024) Immunizations Name Administration Dates Next Due COVID-19 mRNA, LNP-s, No Pre serve, 2-Dose Series (Caktus) 08/23/2021,01/26/2021,01/05/2021 Pneumococcal Conjugate Vacc, 13 Valent (Prevnar) [...] encounter Miscellaneous Notes * Telephone Encounter - Antonia Hawthorne DO - 04/07/2024 12:41 PM EDTSigned Prescriptions: Disp Refills LORazepam 0.5 MG Oral Tablet (Ativan) 60 Tab*0 Sig: Take 1 Tablet by mouth every 8 hours as needed for Anxiety. Authorizing Provider: ANTONIA HAWTHORNE * Telephone Encounter - Jesse Silvestre [facility] - 04/07/2024 8:04 AM EDT Pending Prescriptions: Disp Refills LORazepam 0.5 MG Oral Tablet (Ativan) 60 Tab*0 Sig: Take 1 Tablet by mouth every 8 hours as needed for Anxiety. * Telephone Encounter - Jesse Silvestre [facility] - 04/07/2024 8:00 AM EDT I have reviewed the patients controlled substance dispensing history in the Prescription Drug Monitoring Program in compliance with the [facility] regulations before prescribing a controlled substance. PDMP checked on 04/07/2024. Pending Prescriptions: Disp Refills LORazepam 0.5 MG Oral Tablet (Ativan) 60 Tab*0 Sig: Take 1 Tablet by mouth every 8 hours as needed for Anxiety. Last Visit: 03/21/2024 (in office), 12/04/2020 (telemedicine) Next Visit: 10/07/2024 Date medication was last filled: 03/04/2024 Date medication is due for refill: 03/23/2024 [facility]acy: [facility] [address] [place] [address] GISSELLE CHRISTIANSON Is this request for a controlled substance? Yes and Urine Drug Screen Not completed Toxicology results: Results for orders placed or performed during the hospital encounter of 02/28/23 TOXICOLOGY, URINE SCREEN W/ CONFIRMATION Result Value Amphetamines Screen, U Negative Benzodiazepines Screen, U Negative Cannabinoids Screen, U Negative Cocaine Metabolite Screen, U Negative Fentanyl Screen, U Positive (A) Hydrocodone Screen, U Positive (A) Methadone Metabolite Screen, U Negative Morphine/Codeine Screen, U Negative Oxycodone Screen, U Positive (A) Narrative Cutoff Concentrations: Drug Level Amphetamines 500 ng/mL Benzodiazepines 100 ng/mL Cannabinoids 50 ng/mL Cocaine Metabolite 150 ng/mL Fentanyl 1 ng/mL Hydrocodone / Hydromorphone 300 ng/mL Methadone Metabolite 100 ng/mL Morphine / Codeine 300 ng/mL Oxycodone / Oxymorphone 100 ng/mL Screening results are presumptive and can only be used for medical purposes. Positive screening results are reflexed to confirmatory testing. *Note: Due to a large number of results and/or encounters for the requested time period, some results have not been displayed. A complete set of results can be found in Results Review. Please approve if appropriate. Thank You, Jesse Silvestre, Pharm-D Clinical Pharmacist [facility] ([facility]) (Formerly Telepharmacy) [phone] 04/07/2024, 8:00 AM * Telephone Encounter - Princess Hardin PHARM Tech - 04/05/2024 2:58 PM EDT Did you pend patient's preferred pharmacy and medication before forwarding?yes Pharmacy: [facility] [address] [address] GISSELLE LEAL SAMMY Pending Prescriptions: Disp Refills LORazepam 0.5 MG Oral Tablet (Ativan) 60 Tab*0 Sig: Take 1 Tablet by mouth every 8 hours as needed for Anxiety. Last Visit: 03/21/2024 (in office), 12/04/2020 (telemedicine) Next Visit: 10/07/2024 If no future appointments scheduled, and last appointment is greater than a year ago, please schedule patient for a follow-up appointment Last date the medication was ordered: 03/04/2024 Is this request for a controlled substance?Yes, What was the last refill date 03/04/2024 w/ quantity 60 and dosage 0.5 and Urine Drug Screen Not completed Urine Drug Screen: Results for orders placed or performed during the hospital encounter of 02/28/23 TOXICOLOGY, URINE SCREEN W/ CONFIRMATION Result Value Amphetamines Screen, U Negative Benzodiazepines Screen, U Negative Cannabinoids Screen, U Negative Cocaine Metabolite Screen, U Negative Fentanyl Screen, U Positive (A) Hydrocodone Screen, U Positive (A) Methadone Metabolite Screen, U Negative Morphine/Codeine Screen, U Negative Oxycodone Screen, U Positive (A) Narrative Cutoff Concentrations: Drug Level Amphetamines 500 ng/mL Benzodiazepines 100 ng/mL Cannabinoids 50 ng/mL Cocaine Metabolite 150 ng/mL Fentanyl 1 ng/mL Hydrocodone / Hydromorphone 300 ng/mL Methadone Metabolite 100 ng/mL Morphine / Codeine 300 ng/mL Oxycodone / Oxymorphone 100 ng/mL Screening results are presumptive and can only be used for medical purposes. Positive screening results are reflexed to confirmatory testing. *Note: Due to a large number of results and/or encounters for the requested time period, some results have not been displayed. A complete set of results can be found in Results Review. Patient Phone Numbers Labs: Lab Results Component Value Date/Time CREAT 0.9 03/21/2024 12:19 PM CREAT 0.84 05/26/2023 12:00 AM CREAT 0.9 11/28/2020 08:44 AM POTASSIUM 3.8 03/21/2024 12:19 PM POTASSIUM 3.9 05/26/2023 12:00 AM POTASSIUM 5.1 11/28/2020 08:44 AM TSH 3.15 12/09/2019 09:55 AM LDLCALC 76 08/02/2019 11:00 AM LDLDIRECT 97 09/03/2022 01:57 PM ALT 49 (H) 02/15/2024 12:25 PM ALT 25 11/28/2020 08:44 AM HGBA1C 7.1 (H) 03/21/2024 12:19 PM HGBA1C 6.2 05/27/2018 09:52 AM documented in this encounter Plan of Treatment Upcoming Encounters Date Type Department Care Team (Late st Contact Info) Description 05/05/2024 10:30 AM EDT Office Visit Orthopaedics, [place] [address] [place] [address] Cholo Shah MD [address] [place] [address] 05/10/2024 10:30 AM EDT Office Visit Gynecology/Oncology, [place] [address] [place] [address] Jeanie Gunter PA-C [address], [place] [id number] 08/29/2024 11:00 AM EDT Office Visit Cardiology, [facility] [address] [place] [address] Shilpi Bailey PA-C [address] [place] [address] 10/07/2024 11:50 AM EST Office Visit [place] [address] [place] [address] Antonia Hawthorne, [address], [place] [phone] Scheduled Procedures Name Priority Associated Diagnoses Date/Ti [...] Additional history exists CKD HGB USE SMARTSET 14471 03/21/202503/21, 02/15/2024, 02/15/2024, Additional history exists CKD PHOS USE SMARTSET 54499 03/21/202503/09, 03/16/2023, 03/15/2023, Additional history exists Depression [...] this encounter Medical Devices Implanted Type Area Envelope Maker Device Identifier Shelf Expiration Date Model / Serial / Lot Cement Bone Simplex Hv & G - [id number] Implanted:Qty: 2 on 01/05/2023 by Harley Nguyen DO at OR [facility] Left: Knee [employer] : ORTHOPAED[employer] 06/08/2024 6195-1-010 / / [id number] Component Femoral Size 5 - [id number] Implanted:Qty: 1 on 01/05/2023 by Harley Nguyen DO at OR [facility] Left: Knee [employer] : ORTHOPAEDICS 08/09/2026 5510-F-501 / / [id number] Knee Tria Syetric X3 10x36 - [id number] Implanted:Qty: 1 on 01/05/2023 by Harley Nguyen DO at OR [facility] Left: Knee [employer] : ORTHOPA[employer] 09/24/2027 5550-G-360 -E / / [id number] Baseplate Tib 5 Knee - [id number] Implanted:Qty: 1 on 01/05/2023 by Harley Nguyen DO at OR [facility] Left: Knee [employer] : ORTHOPAEDICS 12/14/2027 5521-B-500 / / [id number] Knee X3 Ins Pos Cs Sz5 9 - [id number] Implanted:Qty: 1 on 01/05/2023 by Harley Nguyen DO at OR [facility] Left: Knee [employer] : ORTHOPAED[employer] 11/19/2027 5531-G-509 -E / / [id number] Cement Bone Full Mix Surg Simp - [id number] Implanted:Qty: 1 on 03/03/2023 by Cholo Shah MD at [place] [facility] Right: Knee [employer] : ORTHOPAEDICS 05/08/2025 6191-1-010 / / [id number] Knee Tib Comp Poly Krh 8 Lg - [id number] Implanted:Qty: 1 on 03/03/2023 by Cholo Shah MD at OR [facility] Right: Knee [employer] : ORTHOPAEDICS 07/19/2023 6485-2-308 / / [id number] Knee Hrhk Mod Rot Hng Bushing - [id number] Implanted:Qty: 1 on 03/03/2023 by Cholo Shah MD at OR [facility] Right: Knee [employer] : ORTHOPAEDICS 01/09/2027 6481-2-110 / / [id number] Knee Hrhk Mod Rot Hng Bushing - [id number] Implanted:Qty: 1 on 03/03/2023 by Cholo Shah MD at OR [facility] Right: Knee [employer] : ORTHOPAEDICS 11/21/2026 6481-2-110 / / [id number] Knee Stem Crv Mod Mrs 96a039 - [id number] Implanted:Qty: 1 on 03/03/2023 by Cholo Shah MD at [place] [facility] Right: Knee [employer] : ORTHOPAEDICS 10/02/2026 6485-3-715 / / [id number] Tib Mrh Cross Bear Long Xs/Xl - [id number] Implanted:Qty: 1 on 03/03/2023 by Cholo Shah MD at OR [facility] Right: Knee [employer] : ORTHOPAEDICS 12/05/2025 6481-2-103 / / [id number] Knee Tib Bumper Rot Hng Nue - [id number] Implanted:Qty: 1 on 03/03/2023 by Cholo Shah MD at [place] [facility] Right: Knee [employer] : ORTHOPAEDICS 07/15/2027 6481-2-130 / / [id number] Distal Femoral Component Implanted:Qty: 1 on 03/03/2023 by Cholo Shah MD at OR [facility] Right: Knee [employer] : ORTHOPAEDICS 08/23/2023 6495-2-040 / / [id number] Knee Axle Hrhk Rot Mod Hng - [id number] Implanted:Qty: 1 on 03/03/2023 by Cholo Shah MD at OR [facility] Right: Knee [employer] : ORTHOPAEDICS 06/30/2027 6481-2-120 / / [id number] Restrictors Med Cmnt L998-0162 - [id number] Implanted:Qty: 1 on 03/03/2023 by Cholo Shah MD at [place] [facility] Right: Knee [employer] : ORTHOPAEDICS 11/18/2027 Q031-0546 / / Cement Bone Full Mix Surg Simp - [id number] Implanted:Qty: 1 on 03/03/2023 by Cholo Shah MD at [place] [facility] Right: Knee [employer] : ORTHOPAEDICS 07/09/2025 6191-1-010 / / [id number] Cement Bone Full Mix Surg Simp - [id number] Implanted:Qty: 1 on 03/03/2023 by Cholo Shah MD at [place] [facility] Right: Knee [employer] : ORTHOPAEDICS 06/08/2025 6191-1010 / / [id number] Cement Bone Full Mix Surg Simp - [id number] Implanted:Qty: 1 on 03/03/2023 by Cholo Shah MD at [place] [facility] Right: Knee [employer] : ORTHOPAEDICS 05/08/2025 6191-1-010 / / [id number] Knee Fem Gmrs Dis Std R - [id number] Implanted:Qty: 1 on 03/10/2023 by Cholo Shah MD at [place] [facility] Right: Knee [employer] : ORTHOPAEDICS 10/21/2027 6495-2-040 / / [id number] Knee Hrhk Mod Rot Hng Bushing - [id number] Implanted:Qty: 1 on 03/10/2023 by Cholo Shah MD at [place] [facility] Right: Knee [employer] : ORTHOPAEDICS 01/29/2027 6481-2-110 / / [id number] Knee Axle Hrhk Rot Mod Hng - [id number] Implanted:Qty: 1 on 03/10/2023 by Cholo Shha MD at OR [facility] Right: Knee [employer] : ORTHOPAEDICS 09/15/2027 6481-2-120 / / [id number] Tib Mrh Cross Bear Long Xs/Xl - [id number] Implanted:Qty: 1 on 03/10/2023 by Cholo Shah MD at [place] [facility] Right: Knee [employer] : ORTHOPAEDICS 09/30/2027 6481-2-103 / / [id number] Knee Hrhk Mod Rot Hng Bushing - [id number] Implanted:Qty: 1 on 03/10/2023 by Cholo Shah MD at [place] [facility] Right: Knee [employer] : ORTHOPAEDICS 04/24/2027 6481-2-110 / / [id number] Knee Tib Bumper Issac Sungg Nue - [id number] Implanted:Qty: 1 on 03/10/2023 by Cholo Shah MD at OR [facility] Right: Knee [employer] : ORTHOPAEDICS 10/15/2027 6481-2-130 / / [id number] documented as of this encounter Visit Diagnoses Diagnosis BILLY (generalized anxiety disorder) Generalized anxiety disorder documented in this encounter Advance Directives Documents on File Type Date Recorded Patient Religious Educator Expl 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 Care Teams Glass Curvature Gauger Relationship Specialty Start Date End Date Antonia Hawthorne DO [address], [place] [id number] PCP - General Family Medicine 08/20/22 documented as of this encounter
--- OUTSIDE RECORDS SUMMARY | 2024-04-16 12:30 | External Medical Summary | Summary of Care ---
Author Name Unknown Organization [facility] Address [address] [place] [address] Phone [phone] Care Team Providers Care Sales Representative [employer] Name Role Phone Kat Hawthorne DO Primary Care Provider Reason for Visit * Reason Onset Date Comments Home Monitoring Orders Only 04/07/2024 Encounter Details Date Type Department Care Team (Late st Contact Info) Description 04/07/2024 Home Monitoring [facility] [address] [place] [address] Kat Hawthorne DO [address] [place] [address] Abnormal vital signs* Allergies Active Allergy Reactions Criticality Noted Date [...] Active oxygen IN GASIndications:ILD (interstitial lung disease) ([facility]),Chronic respiratory failure with hypoxia (HCC) Use 2 LPM with exertion and 3 LPM with sleep. Needs small portable tanks, standing concentrator DME: [facility] 1 Each 07/02/2022 Active Proventil HFA 108 (90 Base) MCG/ACT Inhalation Aerosol SolutionIndications: ILD (interstitial lung disease) ([facility]) Inhale by mouth 2 Puffs [...] by mouth in the morning. Active Nystatin 542494 UNIT/GM External Powder (Nystop) Apply topically to [...] fall No pain, no diarrhea currently Old MD (myocardial infarction) 04/14/2023 Hyperlipidemia 04/14/2023 History of [...] & Plan: S/P wound vac placement at [facility] On doxycycline 100 mg BID x [...] History - s/p surgery & treatment per SPOOL HAULER note on 11/18/23 Ca 125: 68.8 U/mL [...] No 02/28/2023 documented as of this encounter Progress Notes * Anabella Ortez OSA - 04/07/2024 8:27 AM EDT Patient has been discharged from the [place] [address] home monitoring program due to completion. documented in this encounter Plan of Treatment Upcoming Encounters Date Type Department Care Team (Late st Contact Info) Description 05/05/2024 10:30 AM EDT Office Visit Orthopaedics, [place] [address] [place] [address] Cholo Shah MD [address], [place] [id number] 05/10/2024 10:30 AM EDT Office Visit Gynecology/Oncology, [place] [address] [place] [address] Jeanie Gunter PA-C [address] [place] [address] 08/29/2024 11:00 AM EDT Office Visit Cardiology, [facility] [address] [place] [address] Shilpi Bailey PA-C [address] [place] [address] 10/07/2024 11:50 AM EST Office Visit [place] [address] [place] [address] Kat Hawthorne, [address] [place] [address] Scheduled Procedures Name Priority Associated Diagnoses Date/Ti [...] Additional history exists CKD HGB USE SMARTSET 91715 03/21/202503/21, 02/15/2024, 02/15/2024, Additional history exists CKD PHOS USE SMARTSET 46368 03/21/202503/09, 03/16/2023, 03/15/2023, Additional history exists Depression [...] this encounter Medical Devices Implanted Type Area Varnishing Unit Operator Device Identifier Shelf Expiration Date Model / Serial / Lot Cement Bone Simplex Hv & G - [id number] Implanted:Qty: 2 on 01/05/2023 by Harley Nguyen DO at OR [facility] Left: Knee ROSALIA : ORTHOPAEDICS 06/08/2024 6195-1-010 / / [id number] Component Femoral Size 5 - [id number] Implanted:Qty: 1 on 01/05/2023 by Harley Nguyen DO at OR [facility] Left: Knee ROSALIA : ORTHOPAEDICS 08/09/2026 5510-F-501 / / [id number] Knee Tria Syetric X3 10x36 - [id number] Implanted:Qty: 1 on 01/05/2023 by Harley Nguyen DO at OR [facility] Left: Knee ROSALIA : ORTHOPAEDICS 09/24/2027 5550-G-360 -E / / [id number] Baseplate Tib 5 Knee - [id number] Implanted:Qty: 1 on 01/05/2023 by Harley Nguyen DO at OR [facility] Left: Knee ROSALIA : ORTHOPAEDICS 12/14/2027 5521-B-500 / / [id number] Knee X3 Ins Pos Cs Sz5 9 - [id number] Implanted:Qty: 1 on 01/05/2023 by Harley Nguyen DO at OR [facility] Left: Knee ROSALIA : ORTHOPAEDICS 11/19/2027 5531-G-509 -E / / [id number] Cement Bone Full Mix Surg Simp - [id number] Implanted:Qty: 1 on 03/03/2023 by Cholo Shah MD at OR [facility] Right: Knee ROSALIA : ORTHOPAEDICS 05/08/2025 6191-1-010 / / [id number] Knee Tib Comp Poly Krh 8 Lg - [id number] Implanted:Qty: 1 on 03/03/2023 by Cholo Shah MD at OR [facility] Right: Knee ROSALIA : ORTHOPAEDICS 07/19/2023 6485-2-308 / / [id number] Knee Hrhk Mod Rot Hng Bushing - [id number] Implanted:Qty: 1 on 03/03/2023 by Cholo Shah MD at OR [facility] Right: Knee ROSALIA : ORTHOPAEDICS 01/09/2027 6481-2-110 / / [id number] Knee Hrhk Mod Rot Hng Bushing - [id number] Implanted:Qty: 1 on 03/03/2023 by Cholo Shah MD at OR [facility] Right: Knee ROSALIA : ORTHOPAEDICS 11/21/2026 6481-2-110 / / [id number] Knee Stem Crv Mod Mrs 03u771 - [id number] Implanted:Qty: 1 on 03/03/2023 by Cholo Shah MD at OR [facility] Right: Knee ROSALIA : ORTHOPAEDICS 10/02/2026 6485-3-715 / / [id number] Tib Mrh Cross Bear Long Xs/Xl - [id number] Implanted:Qty: 1 on 03/03/2023 by Cholo Shah MD at OR [facility] Right: Knee ROSALIA : ORTHOPAEDICS 12/05/2025 6481-2-103 / / [id number] Knee Tib Bumper Rot Hng Nue - [id number] Implanted:Qty: 1 on 03/03/2023 by Cholo Shah MD at OR [facility] Right: Knee ROSALIA : ORTHOPAEDICS 07/15/2027 6481-2-130 / / [id number] Distal Femoral Component Implanted:Qty: 1 on 03/03/2023 by Cholo Shah MD at OR [facility] Right: Knee ROSALIA : ORTHOPAEDICS 08/23/2023 6495-2-040 / / [id number] Knee Axle Hrhk Rot Mod Hng - [id number] Implanted:Qty: 1 on 03/03/2023 by Cholo Shah MD at OR [facility] Right: Knee ROSALIA : ORTHOPAEDICS 06/30/2027 6481-2-120 / / [id number] Restrictors Med Cmnt V668-6122 - [id number] Implanted:Qty: 1 on 03/03/2023 by Cholo Shah MD at OR [facility] Right: Knee ROSALIA : ORTHOPAEDICS 11/18/2027 D140-3574 / / Cement Bone Full Mix Surg Simp - [id number] Implanted:Qty: 1 on 03/03/2023 by Cholo Shah MD at OR [facility] Right: Knee ROSALIA : ORTHOPAEDICS 07/09/2025 6191-1-010 / / [id number] Cement Bone Full Mix Surg Simp - [id number] Implanted:Qty: 1 on 03/03/2023 by Cholo Shah MD at OR [facility] Right: Knee ROSALIA : ORTHOPAEDICS 06/08/2025 6191-1-010 / / [id number] Cement Bone Full Mix Surg Simp - [id number] Implanted:Qty: 1 on 03/03/2023 by Cholo Shah MD at OR [facility] Right: Knee ROSALIA : ORTHOPAEDICS 05/08/2025 6191-1-010 / / [id number] Knee Fem Gmrs Dis Std R - [id number] Implanted:Qty: 1 on 03/10/2023 by Cholo Shah MD at OR [facility] Right: Knee ROSALIA : ORTHOPAEDICS 10/21/2027 6495-2-040 / / [id number] Knee Hrhk Mod Rot Hng Bushing - [id number] Implanted:Qty: 1 on 03/10/2023 by Cholo Shah MD at OR [facility] Right: Knee ROSALIA : ORTHOPAEDICS 01/29/2027 6481-2-110 / / [id number] Knee Axle Hrhk Rot Mod Hng - [id number] Implanted:Qty: 1 on 03/10/2023 by Cholo Shah MD at OR [facility] Right: Knee ROSALIA : ORTHOPAEDICS 09/15/2027 6481-2-120 / / [id number] Tib Mrh Cross Bear Long Xs/Xl - [id number] Implanted:Qty: 1 on 03/10/2023 by Cholo Shah MD at OR [facility] Right: Knee ROSALIA : ORTHOPAEDICS 09/30/2027 6481-2-103 / / [id number] Knee Hrhk Mod Rot Hng Bushing - [id number] Implanted:Qty: 1 on 03/10/2023 by Cholo Shah MD at OR [facility] Right: Knee ORSALIA : ORTHOPAEDICS 04/24/2027 6481-2-110 / / [id number] Knee Tib Bumper Rot Hn Nue - [id number] Implanted:Qty: 1 on 03/10/2023 by Cholo Shah MD at OR [facility] Right: Knee ROSALIA : ORTHOPAEDICS 10/15/2027 6481-2-130 / / [id number] documented as of this encounter Visit Diagnoses Diagnosis Abnormal vital signs- Primary documented in this encounter Advance Directives Documents on File Type Date Recorded Patient Telephone Information Supervisor Expl 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 Care Teams Sales Representative [employer] Relationship Specialty Start Date End Date Kat Hawthorne DO [address] [facility] [place] [address] PCP - General Family Medicine 08/20/22 documented as of this encounter
--- OUTSIDE RECORDS SUMMARY | 2024-04-16 12:30 | External Medical Summary | Summary of Care ---
Author Name Unknown Organization [facility] Address [address] [place] [address] Phone [phone] Care Team Providers Care Photogravure Press Operator Name Role Phone Kat Hawthorne DO Primary Care Provider [phone] Reason for Visit * Reason Onset Date Comments [facility]: Maintenance 04/06/2024 Encounter Details Date Type Department Care Team (Late st Contact Info) Description 04/06/2024 Telephone [facility], [facility] [address] [place] [address] [facility], Nurse [place] [address] [place] [address] [facility]: Maintenance Allergies Active Allergy [...] Active oxygen IN GASIndications:ILD (interstitial lung disease) ([facility]),Chronic respiratory failure with hypoxia (HCC) Use 2 LPM with exertion and 3 LPM with sleep. Needs small portable tanks, standing concentrator DME: [facility] 1 Each 07/02/2022 Active Proventil HFA 108 (90 Base) MCG/ACT Inhalation Aerosol SolutionIndications: ILD (interstitial lung disease) ([facility]) Inhale by mouth 2 Puffs every 4 [...] by mouth in the morning. Active Nystatin 300711 UNIT/GM External Powder (Nystop) Apply topically to [...] fall No pain, no diarrhea currently Old [place] (myocardial infarction) 04/14/2023 Hyperlipidemia 04/14/2023 History of [...] & Plan: S/P wound vac placement at [facility] On doxycycline 100 mg BID x 14 [...] History - s/p surgery & treatment per [facility]ERTER note on 11/18/23 Ca 125: 68.8 U/mL [...] 08/18/2019,09/03/2018 TDAP (age 10 and older)(Boostrix) 09/02/2021 TDAP (age 11 and older)(Adacel) 02/27/2009(Defer red: Patient Refused) Zoster Vaccine Recombinant (Shingrix) 06/03/2021 [...] 05/05/2024 10:30 AM EDT Office Visit Orthopaedics, [place] [address] [place] [address] Cholo Shah MD [address] [place] [address] 05/10/2024 10:30 AM EDT Office Visit Gynecology/Oncology, [place] [address], [place] [address] Jeanie Gunter PA-C [address], [place] [address] 08/29/2024 11:00 AM EDT Office Visit Cardiology, [facility] [address] [place] [address] Shilpi Bailey PA-C [address] [facility] [place] [address] 10/07/2024 11:50 AM EST Office Visit [place] [address] [place] [address] Kat Hawthorne, [address] [place] [address] Scheduled Procedures Name Priority Associated Diagnoses Date/Ti [...] Additional history exists CKD HGB USE SMARTSET 28685 03/21/202503/21, 02/15/2024, 02/15/2024, Additional history exists CKD PHOS USE SMARTSET 74350 03/21/202503/09, 03/16/2023, 03/15/2023, Additional history exists Depression [...] this encounter Medical Devices Implanted Type Area Electrical Electronics Technician Device Identifier Shelf Expiration Date Model / Serial / Lot Cement Bone Simplex Hv & G - [id number] Implanted:Qty: 2 on 01/05/2023 by Harley Nguyen DO at OR [facility] Left: Knee ROSALIA : ORTHOPAEDICS 06/08/2024 6195-1-010 / / [id number] Component Femoral Size 5 - [id number] Implanted:Qty: 1 on 01/05/2023 by Harley Nguyen DO at OR [facility] Left: Knee ROSALIA : ORTHOPAEDICS 08/09/2026 5510-F-501 / / [id number] Knee Tria Syetric X3 10x36 - [id number] Implanted:Qty: 1 on 01/05/2023 by Harley Nguyen DO at OR [facility] Left: Knee ROSALIA : ORTHOPAEDICS 09/24/2027 5550-G-360 -E / / [id number] Baseplate Tib 5 Knee - [id number] Implanted:Qty: 1 on 01/05/2023 by Harley Nguyen DO at OR [facility] Left: Knee ROSALIA : ORTHOPAEDICS 12/14/2027 5521-B-500 / / [id number] Knee X3 Ins Pos Cs Sz5 9 - [id number] Implanted:Qty: 1 on 01/05/2023 by Harley Nguyen DO at OR [facility] Left: Knee ROSALIA : ORTHOPAEDICS 11/19/2027 5531-G-509 -E / / [id number] Cement Bone Full Mix Surg Simp - [id number] Implanted:Qty: 1 on 03/03/2023 by Cholo Shah MD at OR [facility] [place] [place] Right: Knee ROSALIA : ORTHOPAEDICS 05/08/2025 6191-1-010 / / [id number] Knee Tib Comp Poly Krh 8 Lg - [id number] Implanted:Qty: 1 on 03/03/2023 by Cholo Shah MD at [place] [facility] [place] Right: Knee ROSALIA : ORTHOPAEDICS 07/19/2023 6485-2-308 / / [id number] Knee Hrhk Mod Rot Hng Bushing - [id number] Implanted:Qty: 1 on 03/03/2023 by Cholo Shah MD at OR [facility] [place] Right: Knee ROSALIA : ORTHOPAEDICS 01/09/2027 6481-2-110 / / [id number] Knee Hrhk Mod Rot Hng Bushing - [id number] Implanted:Qty: 1 on 03/03/2023 by Cholo Shah MD at OR [facility] [place] Right: Knee ROSALIA : ORTHOPAEDICS 11/21/2026 6481-2-110 / / [id number] Knee Stem Crv Mod Mrs 21f505 - [id number] Implanted:Qty: 1 on 03/03/2023 by Cholo Shah MD at OR [facility] [place] Right: Knee ROSALIA : ORTHOPAEDICS 10/02/2026 6485-3-715 / / [id number] Tib Mrh Cross Bear Long Xs/Xl - [id number] Implanted:Qty: 1 on 03/03/2023 by Cholo Shah MD at OR [facility] [place] Right: Knee ROSALIA : ORTHOPAEDICS 12/05/2025 6481-2-103 / / [id number] Knee Tib Bumper Rot Hng Nue - [id number] Implanted:Qty: 1 on 03/03/2023 by Cholo Shah MD at OR [facility] [place] Right: Knee ROSALIA : ORTHOPAEDICS 07/15/2027 6481-2-130 / / [id number] Distal Femoral Component Implanted:Qty: 1 on 03/03/2023 by Cholo Shah MD at OR [facility] [place] Right: Knee ROSALIA : ORTHOPAEDICS 08/23/2023 6495-2-040 / / [id number] Knee Axle Hrhk Rot Mod Hng - [id number] Implanted:Qty: 1 on 03/03/2023 by Cholo Shah MD at OR [facility] [place] Right: Knee ROSALIA : ORTHOPAEDICS 06/30/2027 6481-2-120 / / [id number] Restrictors Med Cmnt S268-4436 - [id number] Implanted:Qty: 1 on 03/03/2023 by Cholo Shah MD at OR [facility] [place] Right: Knee ROSALIA : ORTHOPAEDICS 11/18/2027 P550-6514 / / Cement Bone Full Mix Surg Simp - [id number] Implanted:Qty: 1 on 03/03/2023 by Cholo Shah MD at OR [facility] [place] Right: Knee ROSALIA : ORTHOPAEDICS 07/09/2025 6191-1-010 / / [id number] Cement Bone Full Mix Surg Simp - [id number] Implanted:Qty: 1 on 03/03/2023 by Cholo Shah MD at OR [facility] [place] Right: Knee ROSALIA : ORTHOPAEDICS 06/08/2025 6191-1-010 / / [id number] Cement Bone Full Mix Surg Simp - [id number] Implanted:Qty: 1 on 03/03/2023 by Cholo Shah MD at OR [facility] [place] Right: Knee ROSALIA : ORTHOPAEDICS 05/08/2025 6191-1-010 / / [id number] Knee Fem Gmrs Dis Std R - [id number] Implanted:Qty: 1 on 03/10/2023 by Cholo Shah MD at OR [facility] [place] Right: Knee ROSALIA : ORTHOPAEDICS 10/21/2027 6495-2-040 / / [id number] Knee Hrhk Mod Rot Hng Bushing - [id number] Implanted:Qty: 1 on 03/10/2023 by Cholo Shah MD at OR [facility] [place] Right: Knee ROSALIA : ORTHOPAEDICS 01/29/2027 6481-2-110 / / [id number] Knee Axle Hrhk Rot Mod Hng - [id number] Implanted:Qty: 1 on 03/10/2023 by Cholo Shah MD at OR [facility] [place] Right: Knee ROSALIA : ORTHOPAEDICS 09/15/2027 6481-2-120 / / [id number] Tib Mrh Cross Bear Long Xs/Xl - [id number] Implanted:Qty: 1 on 03/10/2023 by Cholo Shah MD at [place] [facility] [place] Right: Knee ROSALIA : ORTHOPAEDICS 09/30/2027 6481-2-103 / / [id number] Knee Hrhk Mod Rot Hng Bushing - [id number] Implanted:Qty: 1 on 03/10/2023 by Cholo Shah MD at OR [facility] [place] Right: Knee ROSALIA : ORTHOPAEDICS 04/24/2027 6481-2-110 / / [id number] Knee Tib Bumper Issac Sungg Nue - [id number] Implanted:Qty: 1 on 03/10/2023 by Cholo Shah MD at [place] [facility] [place] Right: Knee ROSALIA : ORTHOPAEDICS 10/15/2027 6481-2-130 / / [id number] documented as of this encounter Advance Directives Documents on File Type Date Recorded Patient Manager Helpdesk Expl 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 Care Teams Photogravure Press Operator Relationship Specialty Start Date End Date Kat Hawthorne DO [address] [place] [address] PCP - General Family Medicine 08/20/22 documented as of this encounter
--- OUTSIDE RECORDS SUMMARY | 2024-04-16 12:30 | External Medical Summary | Summary of Care ---
Author Name Unknown Organization [facility] Address [address] [place] [address] Phone [phone] Care Team Providers Care Support Architect Name Role Phone Kat Hawthorne DO Primary Care Provider [phone] Reason for Visit * Reason Comments eRx-Medication Refill Encounter Details Date Type Department Care Team (Late st Contact Info) Description 04/07/2024 Refill [facility] [address] [place] [address] Kat Hawthorne DO [address] [place] [address] BILLY (generalized anxiety disorder) Allergies [...] by mouth in the morning. Active Nystatin 729203 UNIT/GM External Powder (Nystop) Apply topically to [...] once a week. 12 Packet 2 01/27/2024 4 Active Cyclobenzaprine HCl 5 MG Oral Tablet [...] FOR ITCHING 30 Tablet 3 03/22/2024 Active LORazepam 0.5 MG Oral Tablet (Ativan)Indications: BILLY (generalized anxiety disorder) Take 1 Tablet by mouth every 8 hours as needed for Anxiety. 60 Tablet 04/07/2024 Active documented as of this encounter (statuses [...] fall No pain, no diarrhea currently Old [place] (myocardial infarction) 04/14/2023 Hyperlipidemia 04/14/2023 History of [...] & Plan: S/P wound vac placement at [facility] On doxycycline 100 mg BID x [...] History - s/p surgery & treatment per STEAM FRAME OPERATOR note on 11/18/23 Ca 125: 68.8 U/mL [...] CKD protocol #1 Depression with anxiety 10/30/2015 0306/2023 SOB (shortness of breath) 09/10/2012 Class 2 [...] encounter Miscellaneous Notes * Telephone Encounter - Zachery Lindsey RPh - 04/08/2024 11:39 AM EDT Refused Prescriptions: Disp Refills LORazepam 0.5 MG Oral Tablet (Ativan) 60 Tab*0 Sig: TAKE 1 TABLET BY MOUTH EVERY 8 HOURS NEEDED FOR ANXIETYRefused By: ZACHERY LINDSEY for Refusal:Duplicate Request documented in this encounter Plan of Treatment Upcoming Encounters Date Type Department Care Team (Late st Contact Info) Description 05/05/2024 10:30 AM EDT Office Visit Orthopaedics, [place] [address] [place] [address] Cholo Shah MD [address] [place] [address] 05/10/2024 10:30 AM EDT Office Visit Gynecology/Oncology, [place] [address] [place] [address] Jeanie Gunter PA-C [address] [place] [address] 08/29/2024 11:00 AM EDT Office Visit Cardiology, [facility] [address] [place] [address] Shilpi Bailey PA-C [address] [place] [address] 10/07/2024 11:50 AM EST Office Visit [facility] [address] [place] [id number] Kat Hawthorne DO [address] [place] [address] Scheduled Procedures Name Priority Associated Diagnoses Date/Ti [...] Additional history exists CKD HGB USE SMARTSET 39438 03/21/202503/21, 02/15/2024, 02/15/2024, Additional history exists CKD PHOS USE SMARTSET 45640 03/21/202503/09, 03/16/2023, 03/15/2023, Additional history exists Depression [...] this encounter Medical Devices Implanted Type Area Policy Issue Clerk Device Identifier Shelf Expiration Date Model / Serial / Lot Cement Bone Simplex Hv & G - [id number] Implanted:Qty: 2 on 01/05/2023 by Harley Nguyen DO at OR [facility] Left: Knee ROSALIA : ORTHOPAEDICS 06/08/2024 6195-1-010 / / [id number] Femoral Size 5 - [id number] Implanted:Qty: 1 on 01/05/2023 by Harley Nguyen DO at OR [facility] Left: Knee ROSALIA : ORTHOPAEDICS 08/09/2026 5510-F-501 / / [id number] Knee Tria Syetric X3 10x36 - [id number] Implanted:Qty: 1 on 01/05/2023 by Harley Nguyen DO at OR [facility] Left: Knee ROSALIA : ORTHOPAEDICS 09/24/2027 5550-G-360 -E / / [id number] Baseplate Tib 5 Knee - [id number] Implanted:Qty: 1 on 01/05/2023 by Harley Nguyen DO at OR [facility] Left: Knee ROSALIA : ORTHOPAEDICS 12/14/2027 5521-B-500 / / [id number] Knee X3 Ins Pos Cs Sz5 9 - [id number] Implanted:Qty: 1 on 01/05/2023 by Harley Nguyen DO at OR [facility] Left: Knee ROSALIA : ORTHOPAEDICS 11/19/2027 5531-G-509 -E / / [id number] Cement Bone Full Mix Surg Simp - [id number] Implanted:Qty: 1 on 03/03/2023 by Cholo Shah MD at [place] [facility] Right: Knee ROSALIA : ORTHOPAEDICS 05/08/2025 6191-1-010 / / [id number] Knee Tib Comp Poly Krh 8 Lg - [id number] Implanted:Qty: 1 on 03/03/2023 by Cholo Shah MD at [place] [facility] Right: Knee ROSALIA : ORTHOPAEDICS 07/19/2023 6485-2-308 / / [id number] Knee Hrhk Mod Rot Hng Bushing - [id number] Implanted:Qty: 1 on 03/03/2023 by Cholo Shah MD at [place] [facility] Right: Knee ROSALIA : ORTHOPAEDICS 01/09/2027 6481-2-110 / / [id number] Knee Hrhk Mod Rot Hng Bushing - [id number] Implanted:Qty: 1 on 03/03/2023 by Cholo Shah MD at [place] [facility] Right: Knee ROSALIA : ORTHOPAEDICS 11/21/2026 6481-2-110 / / [id number] Knee Stem Crv Mod Mrs 13l052 - [id number] Implanted:Qty: 1 on 03/03/2023 by Cholo Shah MD at [place] [facility] Right: Knee ROSALIA : ORTHOPAEDICS 10/02/2026 6485-3-715 / / [id number] Tib Mrh Cross Bear Long Xs/Xl - [id number] Implanted:Qty: 1 on 03/03/2023 by Cholo Shah MD at [place] [facility] Right: Knee ROSALIA : ORTHOPAEDICS 12/05/2025 6481-2-103 / / [id number] Knee Tib Bumper Rot Hng Nue - [id number] Implanted:Qty: 1 on 03/03/2023 by Cholo Shah MD at [place] [facility] Right: Knee ROSALIA : ORTHOPAEDICS 07/15/2027 6481-2-130 / / [id number] Distal Femoral Component Implanted:Qty: 1 on 03/03/2023 by Cholo Shah MD at [place] [facility] Right: Knee ROSALIA : ORTHOPAEDICS 08/23/2023 6495-2-040 / / [id number] Knee Axle Hrhk Rot Mod Hng - [id number] Implanted:Qty: 1 on 03/03/2023 by Cholo Shah MD at [place] [facility] Right: Knee ROSALIA : ORTHOPAEDICS 06/30/2027 6481-2-120 / / [id number] Restrictors [facility] Cmnt G586-9554 - [id number] Implanted:Qty: 1 on 03/03/2023 by Cholo Shah MD at [place] [facility] Right: Knee ROSALIA : ORTHOPAEDICS 11/18/2027 X919-6995 / / Cement Bone Full Mix Surg Simp - [id number] Implanted:Qty: 1 on 03/03/2023 by Cholo Shah MD at [place] [facility] Right: Knee ROSALIA : ORTHOPAEDICS 07/09/2025 6191-1-010 / / [id number] Cement Bone Full Mix Surg Simp - [id number] Implanted:Qty: 1 on 03/03/2023 by Cholo Shah MD at [place] [facility] Right: Knee ROSALIA : ORTHOPAEDICS 06/08/2025 6191-1-010 / / [id number] Cement Bone Full Mix Surg Simp - [id number] Implanted:Qty: 1 on 03/03/2023 by Cholo Shah MD at [place] [facility] Right: Knee ROSALIA : ORTHOPAEDICS 05/08/2025 6191-1-010 / / [id number] Knee Fem Gmrs Dis Std R - [id number] Implanted:Qty: 1 on 03/10/2023 by Cholo Shah MD at [place] [facility] Right: Knee ROSALIA : ORTHOPAEDICS 10/21/2027 6495-2-040 / / [id number] Knee Hrhk Mod Rot Hng Bushing - [id number] Implanted:Qty: 1 on 03/10/2023 by Cholo Shah MD at [place] [facility] Right: Knee ROSALIA : ORTHOPAEDICS 01/29/2027 6481-2-110 / / [id number] Knee Axle Hrhk Rot Mod Hng - [id number] Implanted:Qty: 1 on 03/10/2023 by Cholo Shah MD at [place] [facility] Right: Knee ROSALIA : ORTHOPAEDICS 09/15/2027 6481-2-120 / / [id number] Tib Mrh Cross Bear Long Xs/Xl - [id number] Implanted:Qty: 1 on 03/10/2023 by Cholo Shah MD at [place] [facility] Right: Knee ROSALIA : ORTHOPAEDICS 09/30/2027 6481-2-103 / / [id number] Knee Hrhk Mod Rot Hng Bushing - [id number] Implanted:Qty: 1 on 03/10/2023 by Cholo Shah MD at [place] [facility] Right: Knee ROSALIA : ORTHOPAEDICS 04/24/2027 6481-2-110 / / [id number] Knee Tib Bumper Rot Hng Nue - [id number] Implanted:Qty: 1 on 03/10/2023 by Cholo Shah MD at [place] [facility] Right: Knee ROSALIA : ORTHOPAEDICS 10/15/2027 6481-2-130 / / [id number] documented as of this encounter Visit Diagnoses Diagnosis BILLY (generalized anxiety disorder) Generalized anxiety disorder documented in this encounter Advance Directives Documents on File Type Date Recorded Patient Nurses Superintendent Expl 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 Care Teams Support Architect Relationship Specialty Start Date End Date Kat Hawthorne DO [address] [place] [address] PCP - General Family Medicine 08/20/22 documented as of this encounter
--- OUTSIDE RECORDS SUMMARY | 2024-04-16 12:31 | External Medical Summary | Summary of Care ---
Author Name Unknown Organization [facility] Address [address] [place] [address] Phone [phone] Care Team Providers Care Supervisor Phosphorus Processing Name Role Phone Kat Hawthorne DO Primary Care Provider [phone] Reason for Visit * Reason Onset Date Comments [facility]: Maintenance 04/03/2024 Encounter Details Date Type Department Care Team (Late st Contact Info) Description 04/03/2024 5:45 PM EDT Scheduled Telephone [facility], [facility] [address] [place] [address] [facility], Nurse [address] [address] Allergies Active Allergy Reactions Criticality Noted Date [...] as of this encounter (statuses as of 04/03/2024) Medications Medication Sig Dispensed Refills Start Date [...] Active oxygen IN GASIndications:ILD (interstitial lung disease) ([facility]),Chronic respiratory failure with hypoxia (HCC) Use 2 LPM with exertion and 3 LPM with sleep. Needs small portable tanks, standing concentrator DME: [facility] 1 Each 07/02/2022 Active Proventil HFA 108 (90 Base) MCG/ACT Inhalation Aerosol SolutionIndications: ILD (interstitial lung disease) ([facility]) Inhale by mouth 2 Puffs [...] by mouth in the morning. Active Nystatin 010537 UNIT/GM External Powder (Nystop) Apply topically to [...] as of this encounter (statuses as of 04/03/2024) Active Problems Problem Noted Date Diagnosed Date [...] as of this encounter (statuses as of 04/03/2024) Resolved Problems Problem Noted Date Diagnosed Date [...] & Plan: S/P wound vac placement at [facility] On doxycycline 100 mg BID [...] History - s/p surgery & treatment per OPTICAL LENS MANUFACTURING TECH note on 11/18/23 Ca 125: 68.8 [...] as of this encounter (statuses as of 04/03/2024) Immunizations Name Administration Dates Next Due COVID-19 [...] encounter Miscellaneous Notes * Telephone Encounter - Rudy, Nataliya Hernandez RN - 04/03/2024 5:36 PM EDT Images from the original note were not included. [facility] Telephonic Nurse Follow-Up Call [facility] Subprogram: Focused Care Management (3-9 months) Follow Up Call Type: Weekend Call 174:PC to M# Spoke to patient. Patient identified by full name and date of Acute issue requiring follow-up call: Other: CHM trigger - hypoxia < 92% Objective: 03/21/2024 11:07 AM 03/08/2024 12:22 PM 02/19/2024 1:21 PM 02/17/2024 10:22 AM 02/16/2024 1:17 PM VITALS ACROSS ENCOUNTERS BP 122/64 124/62 126/68 131/72 120/58 Pulse 63 64 68 69 78 Weight 105.2 kg BMI 35.28 kg/m2 Remote Patient Monitoring: Current Health Device: see 24 trend below Oxygen Needs: NO CHANGE from baseline supplemental oxygen needs - 6-7 LPM DME Needs: NO DME needs identified Medications: No medication or dose adjustments made during acute episode Subjective: Condition Status: CHM trigger - hypoxia < 90%, actual 82-90 frequently Current Concerns: Has bursitis in R arm today - taking muscle relaxers today So asking if she could switch to opposite arm - told her that should not be a problem, just make sure charged before reapplies. No new acute concerns today Disposition: Issue resolved. All appropriate follow up scheduled. Continued use of RPM Future Visits Scheduled: Future Appointments-next 60 days Date/Time Provider Specialty Dept Phone 04/03/2024 5:45 PM [facility], Nurse [facility] [phone] 05/05/2024 10:30 AM Cholo Shah MD Orthopedics [phone] 05/10/2024 10:30 AM (Arrive by 10:15 AM) Jeanie Gunter PA-C Gynecology Oncology [phone] 08/29/2024 11:00 AM (Arrive by 10:45 AM) Shilpi Bailey PA-C Cardiology [phone] 10/07/2024 11:50 AM (Arrive by 11:35 AM) Kat Hawthorne, DO Family Medicine [phone] [facility] Garden Worker/ [facility] Toll Free Number: documented in this encounter Plan of Treatment Upcoming Encounters Date Type Department Care Team (Late st Contact Info) Description 05/05/2024 10:30 AM EDT Office Visit Orthopaedics, [place] [address] [place] [address] Cholo Shah MD [address] [place] [address] 05/10/2024 10:30 AM EDT Office Visit Gynecology/Oncology, [place] [address] [place] [address] Jeanie Gunter PA-C [address], [place] [id number] 08/29/2024 11:00 AM EDT Office Visit Cardiology, [facility] [address] [place] [address] Shilpi Bailey PA-C [address] [place] [address] 10/07/2024 11:50 AM EST Office Visit [place] [address] [place] [address] Kat Hawthorne, [address] [place], [place] [address] Scheduled Procedures Name Priority Associated Diagnoses Date/Ti [...] Additional history exists CKD HGB USE SMARTSET 40825 03/21/202503/21, 02/15/2024, 02/15/2024, Additional history exists CKD PHOS USE SMARTSET 52496 03/21/202503/09, 03/16/2023, 03/15/2023, Additional history exists Depression [...] this encounter Medical Devices Implanted Type Area Employee Relations Advisor Device Identifier Shelf Expiration Date Model / Serial / Lot Cement Bone Simplex Hv & G - [id number] Implanted:Qty: 2 on 01/05/2023 by Harley Nguyen DO at OR [facility] Left: Knee ROSALIA : ORTHOPAEDICS 06/08/2024 6195-1-010 / / [id number] Component Femoral Size 5 - [id number] Implanted:Qty: 1 on 01/05/2023 by Harley Nguyen DO at OR [facility] Left: Knee ROSALIA : ORTHOPAEDICS 08/09/2026 5510-F-501 / / [id number] Knee Tria Syetric X3 10x36 - [id number] Implanted:Qty: 1 on 01/05/2023 by Harley Nguyen DO at OR [facility] Left: Knee ROSALIA : ORTHOPAEDICS 09/24/2027 5550-G-360 -E / / [id number] Baseplate Tib 5 Knee - [id number] Implanted:Qty: 1 on 01/05/2023 by Harley Nguyen DO at OR [facility] Left: Knee ROSALIA : ORTHOPAEDICS 12/14/2027 5521-B-500 / / [id number] Knee X3 Ins Pos Cs Sz5 9 - [id number] Implanted:Qty: 1 on 01/05/2023 by Harley Nguyen DO at OR [facility] Left: Knee ROSALIA : ORTHOPAEDICS 11/19/2027 5531-G-509 -E / / [id number] Cement Bone Full Mix Surg Simp - [id number] Implanted:Qty: 1 on 03/03/2023 by Cholo Shah MD at OR [facility] Right: Knee ROSALIA : ORTHOPAEDICS 05/08/2025 6191-1-010 / / [id number] Knee Tib Comp Poly Krh 8 Lg - [id number] Implanted:Qty: 1 on 03/03/2023 by Cholo Shah MD at OR [facility] [facility] Right: Knee ROSALIA : ORTHOPAEDICS 07/19/2023 6485-2-308 / / [id number] Knee Hrhk Mod Rot Hng Bushing - [id number] Implanted:Qty: 1 on 03/03/2023 by Cholo Shah MD at OR [facility] Right: Knee ROSALIA : ORTHOPAEDICS 01/09/2027 6481-2-110 / / [id number] Knee Hrhk Mod Rot Hng Bushing - [id number] Implanted:Qty: 1 on 03/03/2023 by Cholo Shah MD at OR [facility] Right: Knee ROSALIA : ORTHOPAEDICS 11/21/2026 6481-2-110 / / [id number] Knee Stem Crv Mod Mrs 72n380 - [id number] Implanted:Qty: 1 on 03/03/2023 by Cholo Shah MD at OR [facility] [place] [facility] Right: Knee ROSALIA : ORTHOPAEDICS 10/02/2026 6485-3-715 / / [id number] Tib Mrh Cross Bear Long Xs/Xl - [id number] Implanted:Qty: 1 on 03/03/2023 by Cholo Shah MD at OR [facility] [place] [facility] Right: Knee ROSALIA : ORTHOPAEDICS 12/05/2025 6481-2-103 / / [id number] Knee Tib Bumper Rot Hng Nue - [id number] Implanted:Qty: 1 on 03/03/2023 by Cholo Shah MD at OR [facility] [place] Right: Knee ROSALIA : ORTHOPAEDICS 07/15/2027 6481-2-130 / / [id number] Distal Femoral Component Implanted:Qty: 1 on 03/03/2023 by Cholo Shah MD at OR [facility] [place] Right: Knee ROSALIA : ORTHOPAEDICS 08/23/2023 6495-2-040 / / [id number] Knee Axle Hrhk Rot Mod Hng - [id number] Implanted:Qty: 1 on 03/03/2023 by Cholo Shah MD at OR [facility] [place] Right: Knee ROSALIA : ORTHOPAEDICS 06/30/2027 6481-2-120 / / [id number] Restrictors Med Cmnt J227-0168 - [id number] Implanted:Qty: 1 on 03/03/2023 by Cholo Shah MD at OR [facility] Right: Knee ROSALIA : ORTHOPAEDICS 11/18/2027 J231-0443 / / Cement Bone Full Mix Surg Simp - [id number] Implanted:Qty: 1 on 03/03/2023 by Cholo Shah MD at OR [facility] [place] [facility] Right: Knee ROSALIA : ORTHOPAEDICS 07/09/2025 6191-1-010 / / [id number] Cement Bone Full Mix Surg Simp - [id number] Implanted:Qty: 1 on 03/03/2023 by Cholo Shah MD at OR [facility] Right: Knee ROSALIA : ORTHOPAEDICS 06/08/2025 6191-1-010 / / [id number] Cement Bone Full Mix Surg Simp - [id number] Implanted:Qty: 1 on 03/03/2023 by Cholo Shah MD at OR [facility] [place] [facility] Right: Knee ROSALIA : ORTHOPAEDICS 05/08/2025 6191-1-010 / / [id number] Knee Fem Gmrs Dis Std R - [id number] Implanted:Qty: 1 on 03/10/2023 by Cholo Shah MD at OR [facility] [facility] Right: Knee ROSALIA : ORTHOPAEDICS 10/21/2027 6495-2-040 / / [id number] Knee Hrhk Mod Rot Hng Bushing - [id number] Implanted:Qty: 1 on 03/10/2023 by Cholo Shah MD at OR [facility] [place] Right: Knee ROSALIA : ORTHOPAEDICS 01/29/2027 6481-2-110 / / [id number] Knee Axle Hrhk Rot Mod Hng - [id number] Implanted:Qty: 1 on 03/10/2023 by Cholo Shah MD at OR [facility] Right: Knee ROSALIA : ORTHOPAEDICS 09/15/2027 6481-2-120 / / [id number] Tib Mrh Cross Bear Long Xs/Xl - [id number] Implanted:Qty: 1 on 03/10/2023 by Cholo Shah MD at OR [facility] Right: Knee ROSALIA : ORTHOPAEDICS 09/30/2027 6481-2-103 / / [id number] Knee Hrhk Mod Rot Hng Bushing - [id number] Implanted:Qty: 1 on 03/10/2023 by Cholo Shah MD at OR [facility] Right: Knee ROSALIA : ORTHOPAEDICS 04/24/2027 6481-2-110 / / [id number] Knee Tib Bumper Rot Pinedag Nue - [id number] Implanted:Qty: 1 on 03/10/2023 by Cholo Shah MD at OR [facility] [place] [facility] Right: Knee ROSALIA : ORTHOPAEDICS 10/15/2027 6481-2-130 / / [id number] documented as of this encounter Advance Directives Documents on File Type Date Recorded Patient Receiving Operator Expl 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 Care Teams Supervisor Phosphorus Processing Relationship Specialty Start Date End Date Kat Hawthorne DO [address] [place] [address] PCP - General Family Medicine 08/20/22 documented as of this encounter
--- OUTSIDE RECORDS SUMMARY | 2024-04-16 12:31 | External Medical Summary | Summary of Care ---
Author Name Unknown Organization [facility] Address [address] [facility] [place] [address] Phone [phone] Care Team Providers Care Slab Lifting Supervisor Name Role Phone Kat Hawthorne DO Primary Care Provider Reason for Visit * Reason Onset Date Comments Encounter Created in Error 03/30/2024 Encounter Details Date Type Department Care Team ([facility] st Contact Info) Description 03/30/2024 9:15 AM EDT Scheduled Telephone [facility], [facility] [address] [place] [address] Coordinator, [facility] [address] [place] [address] Allergies Active Allergy Reactions Criticality Noted Date [...] as of this encounter (statuses as of 04/05/2024) Medications Medication Sig Dispensed Refills Start Date [...] by mouth in the morning. Active Nystatin 185556 UNIT/GM External Powder (Nystop) Apply topically to [...] as of this encounter (statuses as of 04/05/2024) Active Problems Problem Noted Date Diagnosed Date [...] as of this encounter (statuses as of 04/05/2024) Resolved Problems Problem Noted Date Diagnosed Date [...] History - s/p surgery & treatment per DELICATESSEN MANAGER note on 11/18/23 Ca 125: 68.8 U/mL [...] as of this encounter (statuses as of 04/05/2024) Immunizations Name Administration Dates Next Due COVID-19 [...] encounter Miscellaneous Notes * Telephone Encounter - Christie Shrestha OSA - 04/05/2024 8:14 AM EDT error documented in this encounter Plan of Treatment Upcoming Encounters Date Type Department Care Team (Late st Contact Info) Description 05/05/2024 10:30 AM EDT [facility] [address] [place] [address] Cholo Shah MD [address] [place] [address] 05/10/2024 10:30 AM EDT Office Visit Gynecology/Oncology, [place] [address] [place] [address] Jeanie Gunter PA-C [address] [place], [place] [id number] 08/29/2024 11:00 AM EDT Office Visit Cardiology, [facility] [address] [place] [address] Shilpi Bailey PA-C [address] [place] [address] 10/07/2024 11:50 AM EST Office Visit [place] [address] [place] [phone] Kat Hawthorne, [address], [place] [phone] Scheduled Procedures Name Priority Associated Diagnoses Date/Ti [...] Additional history exists CKD HGB USE SMARTSET 74683 03/21/202503/21, 02/15/2024, 02/15/2024, Additional history exists CKD PHOS USE SMARTSET 44095 03/21/202503/09, 03/16/2023, 03/15/2023, Additional history exists Depression [...] this encounter Medical Devices Implanted Type Area Package Collector Device Identifier Shelf Expiration Date Model / Serial / Lot Cement Bone Simplex Hv & G - [id number] Implanted:Qty: 2 on 01/05/2023 by Harley Nguyen DO at OR [facility] Left: Knee ROSALIA : ORTHOPAEDICS 06/08/2024 6195-1-010 / / [id number] Component Femoral Size 5 - [id number] Implanted:Qty: 1 on 01/05/2023 by Harley Nguyen DO at OR [facility] Left: Knee ROSALIA : ORTHOPAEDICS 08/09/2026 5510-F-501 / / [id number] Knee Tria Syetric X3 10x36 - [id number] Implanted:Qty: 1 on 01/05/2023 by Harley Nguyen DO at OR [facility] Left: Knee ROSALIA : ORTHOPAEDICS 09/24/2027 5550-G-360 -E / / [id number] Baseplate Tib 5 Knee - [id number] Implanted:Qty: 1 on 01/05/2023 by Harley Nguyen DO at OR [facility] Left: Knee ROSALIA : ORTHOPAEDICS 12/14/2027 5521-B-500 / / [id number] Knee X3 Ins Pos Cs Sz5 9 - [id number] Implanted:Qty: 1 on 01/05/2023 by Harlye Nguyen DO at OR [facility] Left: Knee ROSALIA : ORTHOPAEDICS 11/19/2027 5531-G-509 -E / / [id number] Cement Bone Full Mix Surg Simp - [id number] Implanted:Qty: 1 on 03/03/2023 by Cholo Shah MD at OR [facility] Right: Knee ROSALIA : ORTHOPAEDICS 05/08/2025 6191-1-010 / / [id number] Knee Tib Comp Poly Krh 8 Lg - [id number] Implanted:Qty: 1 on 03/03/2023 by Cholo Shah MD at OR [facility] Right: Knee ROSALIA : ORTHOPAEDICS 07/19/2023 6485-2-308 / / [id number] Knee Hrhk Mod Rot Hng Bushing - [id number] Implanted:Qty: 1 on 03/03/2023 by Cholo Shah MD at OR [facility] Right: Knee ROSALIA : ORTHOPAEDICS 01/09/2027 6481-2-110 / / [id number] Knee Hrhk Mod Rot Hng Bushing - [id number] Implanted:Qty: 1 on 03/03/2023 by Cholo Shah MD at OR [facility] Right: Knee ROSALIA : ORTHOPAEDICS 11/21/2026 6481-2-110 / / [id number] Knee Stem Crv Mod Mrs 56m922 - [id number] Implanted:Qty: 1 on 03/03/2023 by Cholo Shah MD at OR [facility] Right: Knee ROSALIA : ORTHOPAEDICS 10/02/2026 6485-3-715 / / [id number] Tib Mrh Cross Bear Long Xs/Xl - [id number] Implanted:Qty: 1 on 03/03/2023 by Cholo Shah MD at OR [facility] Right: Knee ROSALIA : ORTHOPAEDICS 12/05/2025 6481-2-103 / / [id number] Knee Tib Bumper Rot Hng Nue - [id number] Implanted:Qty: 1 on 03/03/2023 by Cholo Shah MD at OR [facility] Right: Knee ROSALIA : ORTHOPAEDICS 07/15/2027 6481-2-130 / / [id number] Distal Femoral Component Implanted:Qty: 1 on 03/03/2023 by Cholo Shah MD at OR [facility] Right: Knee ROSALIA : ORTHOPAEDICS 08/23/2023 6495-2-040 / / [id number] Knee Axle Hrhk Rot Mod Hng - [id number] Implanted:Qty: 1 on 03/03/2023 by Cholo Shah MD at OR [facility] Right: Knee ROSALIA : ORTHOPAEDICS 06/30/2027 6481-2-120 / / [id number] Restrictors Med Cmnt T433-9584 - [id number] Implanted:Qty: 1 on 03/03/2023 by Cholo Shah MD at OR [facility] Right: Knee ROSALIA : ORTHOPAEDICS 11/18/2027 E017-6280 / / Cement Bone Full Mix Surg Simp - [id number] Implanted:Qty: 1 on 03/03/2023 by Cholo Shah MD at OR [facility] Right: Knee ROSALIA : ORTHOPAEDICS 07/09/2025 6191-1-010 / / [id number] Cement Bone Full Mix Surg Simp - [id number] Implanted:Qty: 1 on 03/03/2023 by Cholo Shah MD at OR [facility] Right: Knee ROSALIA : ORTHOPAEDICS 06/08/2025 6191-1-010 / / [id number] Cement Bone Full Mix Surg Simp - [id number] Implanted:Qty: 1 on 03/03/2023 by Cholo Shah MD at OR [facility] Right: Knee ROSALIA : ORTHOPAEDICS 05/08/2025 6191-1-010 / / [id number] Knee Fem Gmrs Dis Std R - [id number] Implanted:Qty: 1 on 03/10/2023 by Cholo Shah MD at OR [facility] Right: Knee ROSALIA : ORTHOPAEDICS 10/21/2027 6495-2-040 / / [id number] Knee Hrhk Mod Rot Hng Bushing - [id number] Implanted:Qty: 1 on 03/10/2023 by Cholo Shah MD at OR [facility] Right: Knee ROSALIA : ORTHOPAEDICS 01/29/2027 6481-2-110 / / [id number] Knee Axle Hrhk Rot Mod Hng - [id number] Implanted:Qty: 1 on 03/10/2023 by Cholo Shah MD at OR [facility] Right: Knee ROSALIA : ORTHOPAEDICS 09/15/2027 6481-2-120 / / [id number] Tib Mrh Cross Bear Long Xs/Xl - [id number] Implanted:Qty: 1 on 03/10/2023 by Cholo Shah MD at OR [facility] Right: Knee ROSALIA : ORTHOPAEDICS 09/30/2027 6481-2-103 / / [id number] Knee Hrhk Mod Rot Hng Bushing - [id number] Implanted:Qty: 1 on 03/10/2023 by Cholo Shah MD at OR [facility] Right: Knee ROSALIA : ORTHOPAEDICS 04/24/2027 6481-2-110 / / [id number] Knee Tib Bumper Rot Hng Nue - [id number] Implanted:Qty: 1 on 03/10/2023 by Cholo Shah MD at OR [facility] Right: Knee ROSALIA : ORTHOPAEDICS 10/15/2027 6481-2-130 / / [id number] documented as of this encounter Advance Directives Documents on File Type Date Recorded Patient School Boat Driver Expl 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 Care Teams Slab Lifting Supervisor Relationship Specialty Start Date End Date Kat Hawthorne DO [address] [place] [address] PCP - General Family Medicine 08/20/22 documented as of this encounter
--- OUTSIDE RECORDS SUMMARY | 2024-04-16 12:31 | External Medical Summary | Summary of Care ---
Author Name Unknown Organization [facility] Address [address] [place] [address] Phone [phone] Care Team Providers Care Director Career Services Name Role Phone Kat Hawthorne DO Primary Care Provider [phone] Encounter Details Date Type Department Care Team (Late st Contact Info) Description 04/04/2024 Result Scan Unspecified Department Gemini Espinoza DO [address] [place] [address] <No scans attached> Allergies Active Allergy Reactions Criticality Noted Date [...] 01/26/2017 Topical betadine tolerated Shellfish-Derived Products Low 2 Other reaction(s): NAUSEA,DIARRHEA, VOMITING documented as of this encounter (statuses as of 04/04/2024) Medications Medication Sig Dispensed Refills Start Date [...] Active oxygen IN GASIndications:ILD (interstitial lung disease) ([facility]),Chronic respiratory failure with hypoxia (HCC) Use 2 LPM with exertion and 3 LPM with sleep. Needs small portable tanks, standing concentrator DME: [facility] 1 Each 07/02/2022 Active Proventil HFA 108 (90 Base) MCG/ACT Inhalation Aerosol SolutionIndications: ILD (interstitial lung disease) ([facility]) Inhale by mouth 2 Puffs every [...] by mouth in the morning. Active Nystatin 840160 UNIT/GM External Powder (Nystop) Apply topically to [...] as of this encounter (statuses as of 04/04/2024) Active Problems Problem Noted Date Diagnosed Date [...] fall No pain, no diarrhea currently Old ID (myocardial infarction) 04/14/2023 Hyperlipidemia 04/14/2023 History of [...] as of this encounter (statuses as of 04/04/2024) Resolved Problems Problem Noted Date Diagnosed Date [...] & Plan: S/P wound vac placement at [facility] On doxycycline 100 mg BID [...] duplicate Hypertensive heart disease with heart failure 03/01/2012/16/2022 Overview: More specified code listed on PL Hypertensive kidney disease with stage 3a chronic kidney disease 09/17/2020 04/21/2023 Overview: Per CKD protocol Ovarian cancer on left 08/09/202003/18 Cancer Staging:Clinical stage from 09/04/2020:FIGO Stage IC2(cT1c2, cM0) - Signed by Harjeet Li MD on 09/12/2020 Overview: History - s/p surgery & treatment per RN NEW GRAD note on 11/18/23 Ca 125: 68.8 U/mL [...] CKD protocol #1 Depression with anxiety 10/30/2015 03/06/2023 SOB (shortness of breath) 09/10/2012 Class 2 obesity in adult 04/23/201004/2022 Overview: Per Obesity Protocol, #19 ICD-10 update of inactive term MORE SPECIFIED CODE LISTED ON PL Notalgia Paresthetica (L) 06/23/2007 ADVANCE DIRECTIVE INFORMATION 05/07/2006 03/03/2018 Overview: Booklet given to pt today. Esophageal reflux 08/01/2019 Major depressive disorder Overview: ICD-10 update of inactive term documented as of this encounter (statuses as of 04/04/2024) Immunizations Name Administration Dates Next Due COVID-19 [...] No 02/28/2023 documented as of this encounter Plan of Treatment Upcoming Encounters Date Type Department Care Team (Late st Contact Info) Description 05/05/2024 10:30 AM EDT Office Visit Orthopaedics, [place] [address] [place] [address] Cholo Shah MD [address] [place] [address] 05/10/2024 10:30 AM EDT Office Visit Gynecology/Oncology, [place] [address] [place] [address] Jeanie Gunter PA-C [address] [place] [address] 08/29/2024 11:00 AM EDT Office Visit Cardiology, [facility] [address] [place] [address] Shilpi Bailey, [place] [address] [place] [address] 10/07/2024 11:50 AM EST Office Visit [facility] [address] [place] [phone] Kat Hawthorne, [address] [place] [address] Scheduled Procedures Name Priority Associated Diagnoses Date/Ti [...] Additional history exists CKD HGB USE SMARTSET 25058 03/21/202503/21, 02/15/2024, 02/15/2024, Additional history exists CKD PHOS USE SMARTSET 24259 03/21/202503/09, 03/16/2023, 03/15/2023, Additional history exists Depression [...] this encounter Medical Devices Implanted Type Area Gas Processing Plant Operator Device Identifier Shelf Expiration Date Model / Serial / Lot Cement Bone Simplex Hv & G - [id number] Implanted:Qty: 2 on 01/05/2023 by Harley Nguyen DO at OR [facility] Left: Knee ROSALIA : ORTHOPAEDICS 06/08/2024 6195-1-010 / / [id number] Component Femoral Size 5 - [id number] Implanted:Qty: 1 on 01/05/2023 by Harley Nguyen DO at OR [facility] Left: Knee ROSALIA : ORTHOPAEDICS 08/09/2026 5510-F-501 / / [id number] Knee Tria Syetric X3 10x36 - [id number] Implanted:Qty: 1 on 01/05/2023 by Harley Nguyen DO at OR [facility] Left: Knee ROSALIA : ORTHOPAEDICS 09/24/2027 5550-G-360 -E / / [id number] Baseplate Tib 5 Knee - [id number] Implanted:Qty: 1 on 01/05/2023 by Harley Nguyen DO at OR [facility] Left: Knee ROSALIA : ORTHOPAEDICS 12/14/2027 5521-B-500 / / [id number] Knee X3 Ins Pos Cs Sz5 9 - [id number] Implanted:Qty: 1 on 01/05/2023 by Harley Nguyen DO at OR [facility] Left: Knee ROSALIA : ORTHOPAEDICS 11/19/2027 5531-G-509 -E / / [id number] Cement Bone Full Mix Surg Simp - [id number] Implanted:Qty: 1 on 03/03/2023 by Cholo Shah MD at OR [facility] [place] Right: Knee ROSALIA : ORTHOPAEDICS 05/08/2025 6191-1-010 / / [id number] Knee Tib Comp Poly Krh 8 Lg - [id number] Implanted:Qty: 1 on 03/03/2023 by Cholo Shah MD at OR [facility] [place] Right: Knee ROSALIA : ORTHOPAEDICS 07/19/2023 6485-2-308 / / [id number] Knee Hrhk Mod Rot Hng Bushing - [id number] Implanted:Qty: 1 on 03/03/2023 by Cholo Shah MD at OR [facility] [place] Right: Knee ROSALIA : ORTHOPAEDICS 01/09/2027 6481-2-110 / / [id number] Knee Hrhk Mod Rot Hng Bushing - [id number] Implanted:Qty: 1 on 03/03/2023 by Cholo Shah MD at OR [facility] [place] Right: Knee ROSALIA : ORTHOPAEDICS 11/21/2026 6481-2-110 / / [id number] Knee Stem Crv Mod Mrs 60x623 - [id number] Implanted:Qty: 1 on 03/03/2023 by Cholo Shah MD at OR [facility] [place] Right: Knee ROSALIA : ORTHOPAEDICS 10/02/2026 6485-3-715 / / [id number] Tib Mrh Cross Bear Long Xs/Xl - [id number] Implanted:Qty: 1 on 03/03/2023 by Cholo Shah MD at OR [facility] [place] Right: Knee ROSALIA : ORTHOPAEDICS 12/05/2025 6481-2-103 / / [id number] Knee Tib Bumper Rot Hng Nue - [id number] Implanted:Qty: 1 on 03/03/2023 by Cholo Shah MD at OR [facility] [place] Right: Knee ROSALIA : ORTHOPAEDICS 07/15/2027 6481-2-130 / / [id number] Distal Femoral Component Implanted:Qty: 1 on 03/03/2023 by Cholo Shah MD at OR [facility] [place] Right: Knee ROSALIA : ORTHOPAEDICS 08/23/2023 6495-2-040 / / [id number] Knee Axle Hrhk Rot Mod Hng - [id number] Implanted:Qty: 1 on 03/03/2023 by Cholo Shah MD at OR [facility] [place] Right: Knee ROSALIA : ORTHOPAEDICS 06/30/2027 6481-2-120 / / [id number] Restrictors Med Cmnt I601-3928 - [id number] Implanted:Qty: 1 on 03/03/2023 by Cholo Shah MD at OR [facility] [place] Right: Knee ROSALIA : ORTHOPAEDICS 11/18/2027 N357-3800 / / Cement Bone Full Mix Surg Simp - [id number] Implanted:Qty: 1 on 03/03/2023 by Cholo Shah MD at OR [facility] [place] Right: Knee ROSALIA : ORTHOPAEDICS 07/09/2025 6191-1-010 / / [id number] Cement Bone Full Mix Surg Simp - [id number] Implanted:Qty: 1 on 03/03/2023 by Cholo Shah MD at OR [facility] [place] Right: Knee ROSALIA : ORTHOPAEDICS 06/08/2025 6191-1-010 / / [id number] Cement Bone Full Mix Surg Simp - [id number] Implanted:Qty: 1 on 03/03/2023 by Cholo Shah MD at OR [facility] [place] Right: Knee ROSALIA : ORTHOPAEDICS 05/08/2025 6191-1-010 / / [id number] Knee Fem Gmrs Dis Std R - [id number] Implanted:Qty: 1 on 03/10/2023 by Cholo Shah MD at OR [facility] [place] Right: Knee ROSALIA : ORTHOPAEDICS 10/21/2027 6495-2-040 / / [id number] Knee Hrhk Mod Rot Hng Bushing - [id number] Implanted:Qty: 1 on 03/10/2023 by Cholo Shah MD at OR [facility] [place] Right: Knee ROSALIA : ORTHOPAEDICS 01/29/2027 6481-2-110 / / [id number] Knee Axle Hrhk Rot Mod Hng - [id number] Implanted:Qty: 1 on 03/10/2023 by Cholo Shah MD at OR [facility] [place] Right: Knee ROSALIA : ORTHOPAEDICS 09/15/2027 6481-2-120 / / [id number] Tib Mrh Cross Bear Long Xs/Xl - [id number] Implanted:Qty: 1 on 03/10/2023 by Cholo Shah MD at OR [facility] [place] Right: Knee ROSALIA : ORTHOPAEDICS 09/30/2027 6481-2-103 / / [id number] Knee Hrhk Mod Rot Hng Bushing - [id number] Implanted:Qty: 1 on 03/10/2023 by Cholo Shah MD at OR [facility] [place] Right: Knee ROSALIA : ORTHOPAEDICS 04/24/2027 6481-2-110 / / [id number] Knee Tib Bumper Rot Hng Nue - [id number] Implanted:Qty: 1 on 03/10/2023 by Cholo Shah MD at OR [facility] [place] Right: Knee ROSALIA : ORTHOPAEDICS 10/15/2027 6481-2-130 / / [id number] documented as of this encounter Procedures Procedure Name Priority Date/Time Associated Diagnosis Comments CARDIOLOGY SCANNED RESULT 04/04/2024 documented in this encounter Results * CARDIOLOGY SCANNED RESULT (04/04/2024) 04/04/2024 Gemini Espinoza DO OTHER documented in this encounter Advance Directives Documents on File Type Date Recorded Patient Collision Repairer Expl 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 Care Teams Director Career Services Relationship Specialty Start Date End Date Kat Hawthorne DO [address] [facility] [place] [address] PCP - General Family Medicine 08/20/22 documented as of this encounter
--- OUTSIDE RECORDS SUMMARY | 2024-04-16 12:31 | External Medical Summary | Summary of Care ---
Author Name Unknown Organization [facility] Address [address] [facility] [address] Phone [phone] Care Team Providers Care Pipe Fitter Marine Name Role Phone Kat Hawthorne DO Primary Care Provider Reason for Visit * Reason Onset Date Comments Encounter Created in Error 03/31/2024 Encounter Details Date Type Department Care Team ([facility] st Contact Info) Description 03/31/2024 10:30 AM EDT [facility] [address] [place] [address] Coordinator, [facility] [address] [place] [address] Allergies Active Allergy Reactions Criticality Noted Date [...] by mouth in the morning. Active Nystatin 837207 UNIT/GM External Powder (Nystop) Apply topically to [...] fall No pain, no diarrhea currently Old [place] (myocardial infarction) 04/14/2023 Hyperlipidemia 04/14/2023 History of [...] & Plan: S/P wound vac placement at [facility] On doxycycline 100 mg BID [...] History - s/p surgery & treatment per ANCILLARY SERVICES MANAGER note on 11/18/23 Ca 125: 68.8 [...] Encounter - Christie Shrestha OSA - 04/05/2024 8:13 AM EDT error documented in this encounter Plan of Treatment Upcoming Encounters Date Type Department Care Team (Late st Contact Info) Description 05/05/2024 10:30 AM EDT [facility] [address] [place] [address] Cholo Shah MD [address] [place] [address] 05/10/2024 10:30 AM EDT Office Visit Gynecology/Oncology, [place] [address] [place] [address] Jeanie Gunter PA-C [address] [place], [place] [id number] 08/29/2024 11:00 AM EDT Office Visit Cardiology, [facility] [address] [place] [address] Shilpi Bailey PA-C [address] [facility] [place] [address] 10/07/2024 11:50 AM EST Office Visit [place] [address] [place] [id number] Kat Hawthorne, [address] [place] [address], [place] [id number] Scheduled Procedures Name Priority Associated Diagnoses Date/Ti [...] Additional history exists CKD HGB USE SMARTSET 35650 03/21/202503/21, 02/15/2024, 02/15/2024, Additional history exists CKD PHOS USE SMARTSET 06275 03/21/202503/09, 03/16/2023, 03/15/2023, Additional history exists Depression [...] this encounter Medical Devices Implanted Type Area Jewelry Setter Device Identifier Shelf Expiration Date Model / Serial / Lot Cement Bone Simplex Hv & G - [id number] Implanted:Qty: 2 on 01/05/2023 by Harley Nguyen DO at [facility] Left: Knee ROSALIA : ORTHOPAEDICS 06/08/2024 6195-1-010 / / [id number] Component Femoral Size 5 - [id number] Implanted:Qty: 1 on 01/05/2023 by Harley Nguyen DO at [facility] Left: Knee ROSALIA : ORTHOPAEDICS 08/09/2026 5510-F-501 / / [id number] Knee Tria Syetric X3 10x36 - [id number] Implanted:Qty: 1 on 01/05/2023 by Harley Nguyen DO at [facility] Left: Knee ROSALIA : ORTHOPAEDICS 09/24/2027 5550-G-360 -E / / [id number] Baseplate Tib 5 Knee - [id number] Implanted:Qty: 1 on 01/05/2023 by Harley Nguyen DO at [facility] Left: Knee ROSALIA : ORTHOPAEDICS 12/14/2027 5521-B-500 / / [id number] Knee X3 Ins Pos Cs Sz5 9 - [id number] Implanted:Qty: 1 on 01/05/2023 by Harley Nguyen DO at [facility] Left: Knee ROSALIA : ORTHOPAEDICS 11/19/2027 5531-G-509 -E / / [id number] Cement Bone Full Mix Surg Simp - [id number] Implanted:Qty: 1 on 03/03/2023 by [place] Shah [place] [facility] [place]nee ROS[employer]IA : ORTHOPAEDICS 05/08/2025 6191-1-010 / / [id number] Knee Tib Comp Poly Krh 8 Lg - [id number] Implanted:Qty: 1 on 03/03/2023 by Cholo Shah MD [place] [facility] Knee ROS[employer]IA : ORTHOPAEDICS 07/19/2023 6485-2-308 / / [id number] Knee Hrhk Mod Rot Hng Bushing - [id number] Implanted:Qty: 1 on 03/03/2023 by Cholo Shah MD at [place] [facility] [place]: Knee ROSALIA : ORTHOPAEDICS 01/09/2027 6481-2-110 / / [id number] Knee Hrhk Mod Rot Hng Bushing - [id number] Implanted:Qty: 1 on 03/03/2023 by Cholo Shah MD [place] [facility] [place]: Knee ROSALIA : ORTHOPAEDICS 11/21/2026 6481-2-110 / / [id number] Knee Stem Crv Mod Mrs 63g947 - [id number] Implanted:Qty: 1 on 03/03/2023 by Cholo Shah MD [place] [facility]: Knee ROSALIA : ORTHOPAEDICS 10/02/2026 6485-3-715 / / [id number] Tib Mrh Cross Bear Long Xs/Xl - [id number] Implanted:Qty: 1 on 03/03/2023 by Cholo Shah MD at [place] [facility] [place] Knee ROSALIA : ORTHOPAEDICS 12/05/2025 6481-2-103 / / [id number] Knee Tib Bumper Rot Hng Nue - [id number] Implanted:Qty: 1 on 03/03/2023 by Cholo Shah MD at [place] [facility] [place]: Knee ROSALIA : ORTHOPAEDICS 07/15/2027 6481-2-130 / / [id number] Distal Femoral Component Implanted:Qty: 1 on 03/03/2023 by Cholo Shah MD at [place] [facility] [place]: Knee ROSALIA : ORTHOPAEDICS 08/23/2023 6495-2-040 / / [id number] Knee Axle Hrhk Rot Mod Hng - [id number] Implanted:Qty: 1 on 03/03/2023 by Cholo Shah MD at [place] [facility] [place]: Knee ROSALIA : ORTHOPAEDICS 06/30/2027 6481-2-120 / / [id number] Restrictors Med Cmnt W949-1138 - [id number] Implanted:Qty: 1 on 03/03/2023 by Cholo Shah MD at [place] [facility] [place]: Knee ROS[employer]IA : ORTHOPAEDICS 11/18/2027 G188-1867 / / Cement Bone Full Mix Surg Simp - [id number] Implanted:Qty: 1 on 03/03/2023 by Cholo Shah MD at [place] [facility] [place]: Knee ROS[employer]IA : ORTHOPAEDICS 07/09/2025 6191-1-010 / / [id number] Cement Bone Full Mix Surg Simp - [id number] Implanted:Qty: 1 on 03/03/2023 by Cholo Shah MD at [place] [facility]: Knee ROSALIA : ORTHOPAEDICS 06/08/2025 6191-1-010 / / [id number] Cement Bone Full Mix Surg Simp - [id number] Implanted:Qty: 1 on 03/03/2023 by Cholo Shah MD at [place] [facility]: Knee ROSALIA : ORTHOPAEDICS 05/08/2025 6191-1-010 / / [id number] Knee Fem Gmrs Dis Std R - [id number] Implanted:Qty: 1 on 03/10/2023 by Cholo Shah MD at [place] [facility] [place]: Knee ROSALIA : ORTHOPAEDICS 10/21/2027 6495-2-040 / / [id number] Knee Hrhk Mod Rot Hng Bushing - [id number] Implanted:Qty: 1 on 03/10/2023 by Cholo Shah MD at [place] [facility] [place]: Knee ROSALIA : ORTHOPAEDICS 01/29/2027 6481-2-110 / / [id number] Knee Axle Hrhk Rot Mod Hng - [id number] Implanted:Qty: 1 on 03/10/2023 by Cholo Shah MD at [place] [facility]: Knee ROSALIA : ORTHOPAEDICS 09/15/2027 6481-2-120 / / [id number] Tib Mrh Cross Bear Long Xs/Xl - [id number] Implanted:Qty: 1 on 03/10/2023 by Cholo Shah MD at [place] [facility] [place]: Knee ROSALIA : ORTHOPAEDICS 09/30/2027 6481-2-103 / / [id number] Knee Hrhk Mod Rot Hng Bushing - [id number] Implanted:Qty: 1 on 03/10/2023 by Cholo Shah MD at [place] [facility]: Knee ROSALIA : ORTHOPAEDICS 04/24/2027 6481-2-110 / / [id number] Knee Tib Bumper Rot Hng Nue - [id number] Implanted:Qty: 1 on 03/10/2023 by Cholo Shah MD at [place] [facility]: Knee ROSALIA : ORTHOPAEDICS 10/15/2027 6481-2-130 / / [id number] documented as of this encounter Advance Directives Documents on File Type Date Recorded Patient Breeding Manager Expl 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 Care Teams Pipe Fitter Marine Relationship Specialty Start Date End Date Kat Hawthorne DO [address] [place] [address] PCP - General Family Medicine 08/20/22 documented as of this encounter
--- OUTSIDE RECORDS SUMMARY | 2024-04-16 12:32 | External Medical Summary | Summary of Care ---
Author Name Unknown Organization [facility] Address [address] [place] [address] Phone [phone] Care Team Providers Care Business Education Teacher Name Role Phone Kat Hawthorne DO Primary Care Provider [phone] Reason for Visit * Reason Onset Date Comments [facility]: Maintenance 03/29/2024 Encounter Details Date Type Department Care Team (Late st Contact Info) Description 03/29/2024 Telephone [facility], [facility] [address] [place] [address] Services, Scheduling [address] [place] [address] [facility]: Maintenance Allergies Active Allergy [...] as of this encounter (statuses as of 03/29/2024) Medications Medication Sig Dispensed Refills Start Date [...] Active oxygen IN GASIndications:ILD (interstitial lung disease) ([facility]),Chronic respiratory failure with hypoxia (HCC) Use 2 LPM with exertion and 3 LPM with sleep. Needs small portable tanks, standing concentrator DME: [facility] 1 Each 07/02/2022 Active Proventil HFA 108 (90 Base) MCG/ACT Inhalation Aerosol SolutionIndications: ILD (interstitial lung disease) ([facility]) Inhale by mouth 2 Puffs every 4 [...] by mouth in the morning. Active Nystatin 337044 UNIT/GM External Powder (Nystop) Apply topically to [...] as of this encounter (statuses as of 03/29/2024) Active Problems Problem Noted Date Diagnosed Date [...] fall No pain, no diarrhea currently Old [place] (myocardial infarction) 04/14/2023 Hyperlipidemia 04/14/2023 History of [...] as of this encounter (statuses as of 03/29/2024) Resolved Problems Problem Noted Date Diagnosed Date [...] & Plan: S/P wound vac placement at [facility] On doxycycline 100 mg BID x [...] History - s/p surgery & treatment per TECHNOLOGY ASSISTANT note on 11/18/23 Ca 125: 68.8 U/mL [...] as of this encounter (statuses as of 03/29/2024) Immunizations Name Administration Dates Next Due COVID-19 [...] Telephone Encounter - Christie Shrestha OSA - 03/29/2024 8:15 AM EDT Order for oxygen humidification submitted with via portal, patient has used [employer] for other oxygen supplies. Order ID -[id number] BERRY Lema documented in this encounter Plan of Treatment Upcoming Encounters Date Type Department Care Team (Late st Contact Info) Description 03/30/2024 9:15 AM EDT Scheduled Telephone [facility], [facility] [address] [facility] [place] [address] Coordinator, [place] [address] [facility] [place] [address] 03/31/2024 10:30 AM EDT Scheduled Telephone [facility], [address] [place] [address] Coordinator, [address] [place] [address] 04/01/2024 10:00 AM EDT Scheduled Telephone [facility], [facility] [address] [place] [address] Coordinator, [address] [place] [address] 05/05/2024 10:30 AM EDT Office Visit Orthopaedics, [place] [address] [place] [address] Cholo Shah MD [address] [place] [address] 05/10/2024 10:30 AM EDT Office Visit Gynecology/Oncology, [place] [address] [place] [address] Jeanie Gunter PA-C [address] [place] [address] 08/29/2024 11:00 AM EDT Office Visit Cardiology, [facility] [address] [facility] [place] [address] Shilpi Bailey PA-C [address] [facility] [place] [address] 10/07/2024 11:50 AM EST Office Visit [facility] [address] [place] [facility] [place] [address] Kat Hawthorne, [address] [place], [place] [id number] Scheduled Procedures Name Priority Associated Diagnoses Date/Ti [...] 05/27/2018, Additional history exists Mammogram 12/09/2024 12/09/2023, 0612/2021, 03/07/2021, Additional history exists CKD HGB USE SMARTSET 12754 03/21/202503/21, 02/15/2024, 02/15/2024, Additional history exists CKD PHOS USE SMARTSET 82538 03/21/202503/09, 03/16/2023, 03/15/2023, Additional history exists Depression [...] this encounter Medical Devices Implanted Type Area Lead Principal Technical Architect Device Identifier Shelf Expiration Date Model / Serial / Lot Cement Bone Simplex Hv & G - [id number] Implanted:Qty: 2 on 01/05/2023 by Harley Nguyen DO at [facility] Left: Knee ROSALIA : ORTHOPAEDICS 06/08/2024 6195-1-010 / / [id number] Component Femoral Size 5 - [id number] Implanted:Qty: 1 on 01/05/2023 by Harley Nguyen DO at [facility] Left: Knee ROSALIA : ORTHOPAEDICS 08/09/2026 5510-F-501 / / [id number] Knee Tria Syetric X3 10x36 - [id number] Implanted:Qty: 1 on 01/05/2023 by Harley Nguyen DO at [facility] Left: Knee ROSALIA : ORTHOPAEDICS 09/24/2027 5550-G-360 -E / / [id number] Baseplate Tib 5 Knee - [id number] Implanted:Qty: 1 on 01/05/2023 by Harley Nguyen DO at [facility] Left: Knee ROSALIA : ORTHOPAEDICS 12/14/2027 5521-B-500 / / [id number] Knee X3 Ins Pos Cs Sz5 9 - [id number] Implanted:Qty: 1 on 01/05/2023 by Harley Nguyen DO at [facility] Left: Knee ROS[employer]IA : ORTHOPAEDICS 11/19/2027 5531-G-509 -E / / [id number] Cement Bone Full Mix Surg Simp - [id number] Implanted:Qty: 1 on 03/03/2023 by Cholo Shah MD at [place] [facility] [place] Right: Knee ROSALIA : ORTHOPAEDICS 05/08/2025 6191-1-010 / / [id number] Knee Tib Comp Poly Krh 8 Lg - [id number] Implanted:Qty: 1 on 03/03/2023 by Cholo Shah MD at [place] [facility] [place] Right: Knee ROSALIA : ORTHOPAEDICS 07/19/2023 6485-2-308 / / [id number] Knee Hrhk Mod Rot Hng Bushing - [id number] Implanted:Qty: 1 on 03/03/2023 by Cholo Shah MD at [place] [facility] [place] Right: Knee ROSALIA : ORTHOPAEDICS 01/09/2027 6481-2-110 / / [id number] Knee Hrhk Mod Rot Hng Bushing - [id number] Implanted:Qty: 1 on 03/03/2023 by Cholo Shah MD at [place] [facility] [place] Right: Knee ROSALIA : ORTHOPAEDICS 11/21/2026 6481-2-110 / / [id number] Knee Stem Crv Mod Mrs 10c465 - [id number] Implanted:Qty: 1 on 03/03/2023 by Cholo Shah MD at [place] [facility] [place] Right: Knee ROSALIA : ORTHOPAEDICS 10/02/2026 6485-3-715 / / [id number] Tib Mrh Cross Bear Long Xs/Xl - [id number] Implanted:Qty: 1 on 03/03/2023 by Cholo Shah MD at [place] [facility] [place] Right: Knee ROSALIA : ORTHOPAEDICS 12/05/2025 6481-2-103 / / [id number] Knee Tib Bumper Rot Hng Nue - [id number] Implanted:Qty: 1 on 03/03/2023 by Cholo Shah MD at [place] [facility] [place] Right: Knee ROSALIA : ORTHOPAEDICS 07/15/2027 6481-2-130 / / [id number] Distal Femoral Component Implanted:Qty: 1 on 03/03/2023 by Cholo Shah MD at [place] [facility] [place] Right: Knee ROSALIA : ORTHOPAEDICS 08/23/2023 6495-2-040 / / [id number] Knee Axle Hrhk Rot Mod Hng - [id number] Implanted:Qty: 1 on 03/03/2023 by Cholo Shah MD at [place] [facility] [place] Right: Knee ROSALIA : ORTHOPAEDICS 06/30/2027 6481-2-120 / / [id number] Restrictors Med Cmnt B297-9098 - [id number] Implanted:Qty: 1 on 03/03/2023 by Cholo Shah MD at [place] [facility] [place] Right: Knee ROSALIA : ORTHOPAEDICS 11/18/2027 R521-9513 / / Cement Bone Full Mix Surg Simp - [id number] Implanted:Qty: 1 on 03/03/2023 by Cholo Shah MD at [place] [facility] [place] Right: Knee ROSALIA : ORTHOPAEDICS 07/09/2025 6191-1-010 / / [id number] Cement Bone Full Mix Surg Simp - [id number] Implanted:Qty: 1 on 03/03/2023 by Cholo Shah MD at [place] [facility] [place] Right: Knee ROSALIA : ORTHOPAEDICS 06/08/2025 6191-1-010 / / [id number] Cement Bone Full Mix Surg Simp - [id number] Implanted:Qty: 1 on 03/03/2023 by Cholo Shah MD at [place] [facility] [place] Right: Knee ROSALIA : ORTHOPAEDICS 05/08/2025 6191-1-010 / / [id number] Knee Fem Gmrs Dis Std R - [id number] Implanted:Qty: 1 on 03/10/2023 by Cholo Shah MD at [place] [facility] [place] Right: Knee ROSALIA : ORTHOPAEDICS 10/21/2027 6495-2-040 / / [id number] Knee Hrhk Mod Rot Hng Bushing - [id number] Implanted:Qty: 1 on 03/10/2023 by Cholo Shah MD at [place] [facility] [place] Right: Knee ROSALIA : ORTHOPAEDICS 01/29/2027 6481-2-110 / / [id number] Knee Axle Hrhk Rot Mod Hng - [id number] Implanted:Qty: 1 on 03/10/2023 by Cholo Shah MD at [place] [facility] [place] Right: Knee ROSALIA : ORTHOPAEDICS 09/15/2027 6481-2-120 / / [id number] Tib Mrh Cross Bear Long Xs/Xl - [id number] Implanted:Qty: 1 on 03/10/2023 by Cholo Shah MD at [place] [facility] [place] Right: Knee ROSALIA : ORTHOPAEDICS 09/30/2027 6481-2-103 / / [id number] Knee Hrhk Mod Rot Hng Bushing - [id number] Implanted:Qty: 1 on 03/10/2023 by Cholo Shah MD at [place] [facility] [place] Right: Knee ROSALIA : ORTHOPAEDICS 04/24/2027 6481-2-110 / / [id number] Knee Tib Bumper Rot Hng Nue - [id number] Implanted:Qty: 1 on 03/10/2023 by Cholo Shah MD at [place] [facility] [place] Right: Knee ROSALIA : ORTHOPAEDICS 10/15/2027 6481-2-130 / / [id number] documented as of this encounter Advance Directives Documents on File Type Date Recorded Patient Sausage Smoker Expl 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 Care Teams Business Education Teacher Relationship Specialty Start Date End Date Kat Hawthorne DO [address] [place] [facility] [place] [address] PCP - General Family Medicine 08/20/22 documented as of this encounter
--- OUTSIDE RECORDS SUMMARY | 2024-04-16 12:32 | External Medical Summary | Summary of Care ---
Author Name Unknown Organization [facility] Address [address] [place] [address] Phone [phone] Care Team Providers Care Wellness Coordinator Name Role Phone Kat Hawthorne DO Primary Care Provider [phone] Reason for Visit * Reason Onset Date Comments [facility]: Maintenance 03/27/2024 Encounter Details Date Type Department Care Team (Late st Contact Info) Description 03/27/2024 7:45 PM EDT Scheduled Telephone [facility], [facility] [address] [place] [address] [facility], Nurse [address] [address] Allergies Active Allergy Reactions Criticality Noted Date [...] as of this encounter (statuses as of 03/27/2024) Medications Medication Sig Dispensed Refills Start Date [...] IN GASIndications:ILD (interstitial lung disease) ([facility]),Chronic respiratory failure with hypoxia (HCC) Use 2 LPM with exertion and 3 LPM with sleep. Needs small portable tanks, standing concentrator DME: [employer] 1 Each 07/02/2022 Active Proventil HFA 108 (90 Base) MCG/ACT Inhalation Aerosol SolutionIndications: ILD (interstitial lung disease) ([facility]) Inhale by mouth 2 Puffs [...] by mouth in the morning. Active Nystatin 861927 UNIT/GM External Powder (Nystop) Apply topically to [...] as of this encounter (statuses as of 03/27/2024) Active Problems Problem Noted Date Diagnosed Date Unspecified mood (affective) disorder 03/21/2024 Acquired hemolytic [...] fall No pain, no diarrhea currently Old NM (myocardial infarction) 04/14/2023 Hyperlipidemia 04/14/2023 History of recent blood transfusion 01/13/2023 S/P total knee arthroplasty, left 01/05/2023 Prediabetes 12/22/2022 Overview: Per Prediabetes protocol History of ovarian cancer 12/19/2022 Heart failure with preserved left ventricular function (HFpEF) 12/19/2022 Chronic respiratory failure with hypoxia 022 Last Assessment & Plan: Continues on supplemental o2 at 4-6 lpm ILD (interstitial lung disease) 06/05/2022 Last Assessment & Plan: Following with pulmonary ILD clinic Recently started prednisone high dose taper, 60mg initially, tapering by 10mg monthly, currently at 40mg daily Gradual improvement in breathing and functional capacity Presence of cardiac pacemaker 03/26/2021 Last Assessment & Plan: secondary to tachy-lakeisha syndrome PAF (paroxysmal atrial fibrillation) 03/01/2021 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 03/01/2021 S/P MONIKA-BSO (total abdominal hysterectomy and bilateral salpingo-oophorectomy) 09/04/2020 PAT (paroxysmal atrial tachycardia) 12/09/2019 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 Atypical atrial flutter 09/01/2019 Obstructive sleep apnea of adult 09/01/2019 Last Assessment & Plan: Cannot tolerate the CPAP Uses oxygen at night 2 L NC Nocturnal hypoxia 09/01/2019 GERD with esophagitis 08/01/2019 GENERAL OSTEOARTHROSIS 06/27/2003 GENERALIZED ANXIETY DIS 12/30/2001 Essential hypertension with goal blood pressure less than 130/80 documented as of this encounter (statuses as of 03/27/2024) Resolved Problems Problem Noted Date Diagnosed Date [...] History - s/p surgery & treatment per SYSTEM INTEGRATION ENGINEER note on 11/18/23 Ca 125: 68.8 [...] Per CKD protocol #1 Depression with anxiety 10/30/201506/2023 SOB (shortness of breath) 09/10/2012 Class 2 obesity in adult 04/23/201004/2022 Overview: Per Obesity Protocol, #19 ICD-10 update of inactive term MORE SPECIFIED CODE LISTED ON PL Notalgia Paresthetica (L) 06/23/2007 ADVANCE DIRECTIVE INFORMATION 05/07/2006 03/03/2018 Overview: Booklet given to pt today. Esophageal reflux 08/01/2019 Major depressive disorder Overview: ICD-10 update of inactive term documented as of this encounter (statuses as of 03/27/2024) Immunizations Name Administration Dates Next Due COVID-19 mRNA, LNP-s, No Pre serve, 2-Dose Series ([employer]) 08/23/2021,01/26/2021,01/05/2021 Pneumococcal Conjugate Vacc, 13 Valent (Prevnar) [...] encounter Miscellaneous Notes * Telephone Encounter - Nataliya Grant RN - 03/27/2024 7:37 PM EDT Images from the original note were not included. [facility] Telephonic Nurse Follow-Up Call [facility] Subprogram: Focused Care Management (3-9 months) Follow Up Call Type: Weekend Call 1939:PC to M # Spoke to patient. Patient identified by full name and date of Acute issue requiring follow-up call: Remote Patient Monitoring Trigger - hypoxia < 90-92% Objective: 03/21/2024 11:07 AM 03/08/2024 12:22 PM 02/19/2024 1:21 PM 02/17/2024 10:22 AM 02/16/2024 1:17 PM VITALS ACROSS ENCOUNTERS BP 122/64 124/62 126/68 131/72 120/58 Pulse 63 64 68 69 78 Weight 105.2 kg BMI 35.28 kg/m2 Remote Patient Monitoring: Current Health Device: see graph of recent readings below Oxygen Needs: NO CHANGE from baseline supplemental oxygen needs - 6- 7 LPM continuously DME Needs: NO DME needs identified Medications: No medication or dose adjustments made during acute episode Subjective: Condition Status: [facility] trigger - hypoxia < 90-92%, actual 83-90 intermittently Current Concerns: New BIPAP - attempting to tolerate it Denies any respiratory distress Aware of [facility] palliative HV tomorrow Disposition: Issue resolved. All appropriate follow up scheduled. Continued use of RPM equipment Future Visits Scheduled: Future Appointments-next 60 days Date/Time Provider Specialty Dept Phone 03/27/2024 7:45 PM [facility], Nurse [facility] [phone] 03/28/2024 3:00 PM Sachin Pena PA-C [facility] [phone] 05/05/2024 10:30 AM Cholo Shah MD Orthopedics [phone] 05/10/2024 10:30 AM (Arrive by 10:15 AM) Jeanie Gunter PA-C Gynecology Oncology [phone] 08/29/2024 11:00 AM (Arrive by 10:45 AM) Shilpi Bailey PA-C Cardiology [phone] 10/07/2024 11:50 AM (Arrive by 11:35 AM) Kat Hawthorne, Family Medicine [phone] Anabella Grant RN [facility] Administrator Pesticide/ [facility] Toll Free Number: documented in this encounter Plan of Treatment Upcoming Encounters Date Type Department Care Team (Latest Contact Info) Description 03/28/2024 3:00 PM EDT Home Visit [facility], [facility] [address] [facility] [place] [address] Sachin Pena PA-C [address] [place] [place] [address] 04/18/2024 10:45 AM EDT Hospital Encounter [facility] Endoscopy [address], [facility], [address] [address] Fish Ahmadi MD [address] [id number] 04/18/2024 10:45 AM EDT - 04/18/2024 12:30 PM EDT Surgery [facility], Endoscopy [address], [facility] [address], [address] [address] Fish Ahmadi MD [address] [place] [address] ESOPHAGOGASTRODUODENOSCOPY (EGD), FLEXIBLE, TRANSORAL, ENDOSCOPIC ULTRASOUND 05/05/2024 10:30 AM EDT Office Visit Orthopaedics, [place] [address] [place] [address] Cholo Shah MD [address], [place] [id number] 05/10/2024 10:30 AM EDT Office Visit Gynecology/Oncol ogy, [place] [address], [place] [phone] Jeanie Gunter PA-C [address], [place] [id number] 08/29/2024 11:00 AM EDT Office Visit Cardiology, [facility] [address] [place] [address] Shilpi Bailey PA-C [address] [place] [address] 10/07/2024 11:50 AM EST Office Visit [place] [address] [place] [id number] Kat Hawthorne DO [address] [place] [address] Scheduled Procedures Name Priority Associated Diagnoses Date/Ti me ESOPHAGOGASTRODUODENOSCOPY ( EGD), FLEXIBLE, TRANSORAL, ENDOSCOPIC ULTRASOUND Choledocholithiasis 04/18/2024 10:45 AM EDT ENDOSCOPIC RETROGRADE CHOLANGIOPANCREATOGRAPHY (ERCP) DIAGNOSTIC Choledocholithiasis 04/18/2024 10:45 AM EDT ESOPHAGOGASTRODUODENOSCOPY ( EGD), FLEXIBLE, TRANSORAL, DIAGNOSTIC Choledocholithiasis 04/18/2024 10:45 AM EDT COLONOSCOPY FLEXIBLE PROXIMA L DIAGNOSTIC Recall Colon cancer screening Health Maintenance Due Date Last Done Comments DXA Scan 1953 Alpha-1 Antitrypsin 1971 Cologuard 1998 Fecal Occult Blood Test 1998 Sigmoidoscopy 1998 COVID-19 Vaccine ( season) 2023 08/23/2021, 08/02/2021, 01/26/2021, Additional history exists GFR 09/21/2024 03/21/2024, 04/0 06/2024, 12/09/2023, Additional history exists Mammogram 12/09/2024 12/09/2023, 04/10, 03/07/2021, Additional history exists CKD HGB USE SMARTSET 12109 03/21/202503/21, 02/15/2024, 02/15/2024, Additional history exists CKD PHOS USE SMARTSET 77358 03/21/202503/09, 03/16/2023, 03/15/2023, Additional history exists Depression Screening 03/21/2025 03/21/2024 HbA1c 03/21/2025 03/21/2024, 02/0 07/2023, 05/27/2018, Additional history exists O2 ASSESSMENT COMPLETED IN PAST YEAR FOR [...] on patient's age to complete this topic Hepatitis B Aged Out No longer eligi ble based on patient's age to complete this topic MENINGOCOCCAL (MENACTRA/MENVEO) Aged Out No longer eligible based on patient's age to complete this topic documented as of this encounter Medical Devices Implanted Type Area Gift Basket Packer Device Identifier Shelf Expiration Date Model / Serial / Lot Cement Bone Simplex Hv & G - [id number] Implanted:Qty: 2 on 01/05/2023 by Harley Nugyen DO at [place] [facility] Left: Knee [employer] : ORTH[employer]AED[employer] 06/08/2024 6195-1-010 / / [id number] Component Femoral Size 5 - [id number] Implanted:Qty: 1 on 01/05/2023 by Harley Nguyen DO at OR [facility] Left: Knee [employer] : ORTHOPAED[employer] 08/09/2026 5510-F-501 / / [id number] Knee Tria Syetric X3 10x36 - [id number] Implanted:Qty: 1 on 01/05/2023 by Harley Nguyen DO at [place] [facility] Left: Knee [employer] : ORTH[employer] 09/24/2027 5550-G-360 -E / / [id number] Baseplate Tib 5 Knee - [id number] Implanted:Qty: 1 on 01/05/2023 by Harley Nguyen DO at OR [facility] Left: Knee [employer] : ORTH[employer] 12/14/2027 5521-B-500 / / [id number] Knee X3 Ins Pos Cs Sz5 9 - [id number] Implanted:Qty: 1 on 01/05/2023 by Harley Nguyen DO at OR [facility] Left: Knee [employer] : ORTH[employer] 11/19/2027 5531-G-509 -E / / [id number] Cement Bone Full Mix Surg Simp - [id number] Implanted:Qty: 1 on 03/03/2023 by Cholo Shah MD at [place] [facility] Right: Knee [employer] : ORTH[employer] 05/08/2025 6191-1-010 / / [id number] Knee Tib Comp Poly Krh 8 Lg - [id number] Implanted:Qty: 1 on 03/03/2023 by Cholo Shah MD at [place] [facility] Right: Knee [employer] : ORTH[employer] 07/19/2023 6485-2-308 / / [id number] Knee Hrhk Mod Rot Hng Bushing - [id number] Implanted:Qty: 1 on 03/03/2023 by Cholo Shah MD at [place] [facility] Right: Knee [employer] : ORTHOPAED[employer] 01/09/2027 6481-2-110 / / [id number] Knee Hrhk Mod Rot Hng Bushing - [id number] Implanted:Qty: 1 on 03/03/2023 by Cholo Shah MD at [place] [facility] Right: Knee [employer] : ORTHOPAED[employer] 11/21/2026 6481-2-110 / / [id number] Knee Stem Crv Mod Mrs 04b436 - [id number] Implanted:Qty: 1 on 03/03/2023 by Cholo Shah MD at [place] [facility] Right: Knee [employer] : ORTHOPA[employer] 10/02/2026 6485-3-715 / / [id number] Tib Mrh Cross Bear Long Xs/Xl - [id number] Implanted:Qty: 1 on 03/03/2023 by Cholo Shah MD at [place] [facility] Right: Knee [employer] : ORTHOPAED[employer] 12/05/2025 6481-2-103 / / [id number] Knee Tib Bumper Rot Hng Nue - [id number] Implanted:Qty: 1 on 03/03/2023 by Cholo Shah MD at [place] [facility] Right: Knee [employer] : ORTHOPA[employer] 07/15/2027 6481-2-130 / / [id number] Distal Femoral Component Implanted:Qty: 1 on 03/03/2023 by Cholo Shah MD at [place] [facility] Right: Knee [employer] : ORTHOPA[employer]ICS 08/23/2023 6495-2-040 / / [id number] Knee Axle Hrhk Rot Mod Hng - [id number] Implanted:Qty: 1 on 03/03/2023 by Cholo Shah MD at [place] [facility] Right: Knee [employer] : ORTHOPAEDICS 06/30/2027 6481-2-120 / / [id number] Restrictors Med Cmnt G274-3383 - [id number] Implanted:Qty: 1 on 03/03/2023 by Cholo Shah MD at [place] [facility] Right: Knee [employer] : ORTHOPAEDICS 11/18/2027 J538-9448 / / Cement Bone Full Mix Surg Simp - [id number] Implanted:Qty: 1 on 03/03/2023 by Cholo Shah MD at [place] [facility] Right: Knee [employer] : ORTHOPAED[employer] 07/09/2025 6191-1-010 / / [id number] Cement Bone Full Mix Surg Simp - [id number] Implanted:Qty: 1 on 03/03/2023 by Cholo Shah MD at [place] [facility] Right: Knee [employer] : ORTHOPAEDICS 06/08/2025 6191-1-010 / / [id number] Cement Bone Full Mix Surg Simp - [id number] Implanted:Qty: 1 on 03/03/2023 by Cholo Shah MD at [place] [facility] Right: Knee [employer] : ORTHOPAED[employer] 05/08/2025 6191-1-010 / / [id number] Knee Fem Gmrs Dis Std R - [id number] Implanted:Qty: 1 on 03/10/2023 by Cholo Shah MD at [place] [facility] Right: Knee [employer] : ORTHOPA[employer] 10/21/2027 6495-2-040 / / [id number] Knee Hrhk Mod Rot Hng Bushing - [id number] Implanted:Qty: 1 on 03/10/2023 by Cholo Shah MD at [place] [facility] Right: Knee [employer] : ORTHOPAEDICS 01/29/2027 6481-2-110 / / [id number] Knee Axle Hrhk Rot Mod Hng - [id number] Implanted:Qty: 1 on 03/10/2023 by Cholo Shah MD at [place] [facility] Right: Knee [employer] : ORTHOPAEDICS 09/15/2027 6481-2-120 / / [id number] Tib Mrh Cross Bear Long Xs/Xl - [id number] Implanted:Qty: 1 on 03/10/2023 by Cholo Shah MD at [place] [facility] Right: Knee [employer] : ORTHOPAEDICS 09/30/2027 6481-2-103 / / [id number] Knee Hrhk Mod Rot Hng Bushing - [id number] Implanted:Qty: 1 on 03/10/2023 by Cholo Shah MD at [place] [facility] Right: Knee [employer] : ORTHOPAEDICS 04/24/2027 6481-2-110 / / [id number] Knee Tib Bumper Rot Hng Nue - [id number] Implanted:Qty: 1 on 03/10/2023 by Cholo Shah MD at [place] [facility] Right: Knee [employer] : ORTHOPAEDICS 10/15/2027 6481-2-130 / / [id number] documented as of this encounter Advance Directives Documents on File Type Date Recorded Patient Child Welfare Counselor Expl 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 Care Teams Wellness Coordinator Relationship Specialty Start Date End Date Kat Hawthorne DO [address] [facility] [place] [address] PCP - General Family Medicine 08/20/22 documented as of this encounter
--- OUTSIDE RECORDS SUMMARY | 2024-04-16 12:32 | External Medical Summary | Summary of Care ---
Author Name Unknown Organization [facility] Address [address] [place] [address] Phone [phone] Care Team Providers Care Bottom Wheeler Name Role Phone Kat Hawthorne DO Primary Care Provider + [phone] Reason for Referral * Evaluate & Treat - Unlimited Visits (Within 24 hrs (call dept; emergent)) - Authorized Specialty Diagnoses / Procedures Referred By Beau cedeno Referred To Contact Fashion Consultant Diagnoses ILD (interstitial lung disease) (HCC) Kapil Scott DO [address] [place] [address] Referral ID Status Reason Start Date Expiration Date Visits Requested Visits Authorized [id number] Authorized Specialty Services Required 03/08/2024 999 999 Question Answer Referral Priority Within 24 hrs (call dept; emergent) Program Type [facility] Current Health Device(s) Requested 01/06 Where should this appointment be scheduled? [facility] Alarm Settings Standard per protocol Comments Current Health Monitor Ordering Form: Method of Delivery: On-Hand Kit Delivery: "One of our team members will deliver the kit to your home and aide in the set up." Enrollment Diagnosis: Vital Sign Trending Anticipated Duration: 7-14 days Responsible Program: [facility] Reason for Visit * Reason Comments [facility]: Maintenance Encounter Details Date Type Department Care Team ([facility] st Contact Info) Description 03/08/2024 10:00 AM EDT [facility] Visit [facility] [address] [place] [address] July Diaz RN [address] [place] [address] ILD (interstitial lung disease) ([facility])* Allergies Active Allergy Reactions Criticality Noted Date [...] as of this encounter (statuses as of 03/31/2024) Medications Medication Sig Dispensed Refills Start Date [...] by mouth in the morning. Active Nystatin 045513 UNIT/GM External Powder (Nystop) Apply topically to [...] as of this encounter (statuses as of 03/31/2024) Active Problems Problem Noted Date Diagnosed Date [...] fall No pain, no diarrhea currently Old KS (myocardial infarction) 04/14/2023 Hyperlipidemia 04/14/2023 History of [...] as of this encounter (statuses as of 03/31/2024) Resolved Problems Problem Noted Date Diagnosed Date [...] Hyponatremia 03/09/2023 04/21/2023 Acute blood loss anemia 03/04/2023 0601/2023 Age-related osteoporosis wit h current pathological fracture [...] History - s/p surgery & treatment per [employer] [employer] [facility] note on 11/18/23 Ca 125: 68.8 U/mL [...] as of this encounter (statuses as of 03/31/2024) Immunizations Name Administration Dates Next Due COVID-19 [...] on file documented as of this encounter Last Filed Vital Signs Vital Sign Reading Time Taken Comments Blood Pressure 124/62 03/08/2024 12:22 PM EDT Pulse 64 03/08/2024 12:22 PM EDT Temperature 37.1 C (98.7 F) 03/08/2024 1 2:22 PM EDT Respiratory Rate 18 03/08/2024 12:2 2 PM EDT Oxygen Saturation 95% 03/08/2024 12: 22 PM EDT o2 on at 6 l/min via NC at rest Inhaled Oxygen Concentration - - Weight - - Height - - Body Mass Index - - documented in this encounter Functional Status Functional Status Response [...] as of this encounter Progress Notes * July Diaz RN - 03/08/2024 10:08 AM EDT Images from the original note were not included. [facility] Fashion Consultant Visit Date: 03/08/2024 Time: 10:09 AM Name: Orin Bah : 1955 Current Concerns: Pt seen for return RNCM visit Pt reports she has noticed that she has been more tired lately and also more winded Discussed last pulmonology appt notes It was advised that she uses oxygen at 4-5 L at rest and 10 L with activity She reports she does dip down to the 70's with activity but has not been increasing the oxygen as advised She also was referred to RF clinic for use of NIV but has not heard yet TE sent to pulm provider TAWANNA uRff regarding this Last Arterial blood gas was positive for hypercapnia Is wearing oxygen at 6 l/min at all times but has not been increasing for activities Will order M monitor for pulse ox trending Wound of anterior LLE is healing and no s/s of infection She is doing daily wound care of Contract Cloud ag and covering with bordered dressing She does not wish to have wound clinic or home health care involved Saw Cardio on 02/18 - no changes at that time Euvolemic today as well Lungs clear +1 LLE edema, trace RLE Physical Exam: BP 124/62 | Pulse 64 | Temp 37.1 C (98.7 F) | Resp 18 | LMP 07/05/2003 | SpO2 95% Comment: o2 on at 6 l/min via NC at rest Pain 0 Physical Exam Constitutional: General: She is not in acute distress. Appearance: She is obese. Cardiovascular: Rate and Rhythm: Normal rate and regular rhythm. Pulses: Normal pulses. Heart sounds: Normal heart sounds. Pulmonary: Effort: Pulmonary effort is normal. Breath sounds: Normal breath sounds. Comments: Mildly Diminished throughout Abdominal: Palpations: Abdomen is soft. Musculoskeletal: Right lower leg: Edema (trace) present. Left lower leg: Edema (+1) present. Skin: General: Skin is warm and dry. Neurological: Mental Status: She is alert and oriented to person, place, and time. Problems/Symptoms: Review of Systems Constitutional: Positive for fatigue. HENT: Negative. Eyes: Negative. Respiratory: Positive for shortness of breath (with min exertion). Cardiovascular: Positive for leg swelling. Gastrointestinal: Negative. Genitourinary: Negative. Musculoskeletal: Positive for arthralgias. Skin: Positive for wound (LLE). Neurological: Positive for weakness. Psychiatric/Behavioral: Negative. Medication Reconciliation: (See medication list) Does patient take medications as ordered: Yes Patient Well Being: PHQ2/9: No questionnaires available. No change in living situation Denies falls [facility]-10 Completed this Visit: No. Routine visit and No falls since last visit Advanced Care Planning: Living Will. and Healthcare POA. Reinforcement/Education: COPD: Pt instructed to: -Call with increased SOB, wheezing, chest tightness, increased cough, increased sputum with change in color or consistency and fever. -Wash hands often -Drink plenty of fluids -Use inhalers as directed, do not stop or skip doses -Avoid stress -Rest when tired or SOB -Avoid triggers -Clean inhalers once a week Reviewed HF symptom monitoring: -Weigh self daily in am, post-void and record -Do not add salt to food, avoid foods high in sodium -Limit fluids to 2 liters per day -Report the following: ->2 lb weight gain in one day or 5 lbs in a week to PCP -increased edema in feet, abdomen or hands -increased SOB and cough, especially if at night -increased fatigue or vertigo Educated on home safety: Create a fall proof home Clear floors of clutter, loose wires, throw rugs, and cords. Make sure halls, stairways, and entrances are well lit. Install a nightlight in your bedroom, hallway and bathroom. Install grab bars or handrails in the bathroom and on stairs. Use a non-skid tub/shower mat. Avoid climbing on a chair; instead use a step stool with a high handrail. Keep sidewalks and steps in good repair Keep steps and sidewalks free of snow and ice. Using aids to support and prevent falls If you have poor balance or have fallen in the past, consider additional support such as a cane or walker. Use a cane with good support and that is the proper length for you. Use a walker if a cane doesnt provide enough support. Avoid medications that increase the risk of falling by causing dizziness, change in sensation or slowed reflexes. Certain medicines may cause falls - blood pressure pills, heart medicines, water pills, or sleepingpills. Be sure to understand each medicine that you are taking and any side effects that may occur. Improve your balance and flexibility with muscle strengthening exercises. Ask your health care provider for some exercises that will be right for you. Reinforced safety education and fall prevention. and Reinforced medication regimen. Timing., Dosing., and Purspose. Treatment/Plan: Continue meds as prescribed/reviewed Continue with prednisone high dose taper and abx 3 days a week as advised by pulmonology Weigh self daily and record - usually does 3 days a week Elevate LE as much as follow Low Na diet Oxygen at 4 l/min via NC at rest and 10L with activity Proventil inhaler prn Nebulizer prn Wound care LLE -aquacel ag and cover with dsd daily after cleansing with wound wash - pt does not want HH or wound clinic at this time CHM monitor for pulse ox trending - referral placed Home Interventions Provided: Home Intervention: Wound Care and Other; eval Specialty Referral Placed Consulted PCP/Specialist Reinforced current Plan of Care, including self-management and medication regimen Patient's 'Red Flags': Increased SOB Pulse Ox consistently less than 90 with o2 on Redness, foul drainage, increased pain/edema of wound Patient Needs to Remember: Call [facility] at with any new or worsening health concerns or problems, red flag symptoms. Referrals Needed: Other CHM wearable device Follow Up: Is there cellular connectivity/connectivity in the home? Yes Does the patient have internet in the home? No Patient encouraged to call the intake phone number for all urgent but not emergent issues. Is the patient new to [facility] within the last 30 days? No, Assess appropriateness for upcoming telehealth visits. Cancel telehealth visits & schedule home visit with care steam engineer(s)as indicated. Provider is in agreement with Plan of Care: Yes Scheduled to follow up with patient in 3 weeks. July Diaz RN 03/08/2024 10:09 AM documented in this encounter Plan of Treatment Upcoming Encounters Date Type Department Care Team (Late st Contact Info) Description 04/01/2024 10:00 AM EDT Scheduled Telephone [facility], [facility] [address] [facility] [place] [address] Coordinator, [facility] [address] [facility] [place] [address] 05/05/2024 10:30 AM EDT Office Visit Orthopaedics, [place] [address] [place] [address] Cholo Shah MD [address] [place] [address] 05/10/2024 10:30 AM EDT Office Visit Gynecology/Oncology, [place] [address] [place] [address] Jeanie Gunter PA-C [address] [place] [address] 08/29/2024 11:00 AM EDT Office Visit Cardiology, [facility] [address] [place] [address] Shilpi Bailey, DEAN [address] [place] [address] 10/07/2024 11:50 AM EST Office Visit [place] [address] [place] [id number] Kat Hawthorne [address] [place] [address] Scheduled Procedures Name Priority Associated Diagnoses Date/Ti me ESOPHAGOGASTRODUODENOSCOPY ( EGD), FLEXIBLE, TRANSORAL, ENDOSCOPIC ULTRASOUND Choledocholithiasis ENDOSCOPIC RETROGRADE CHOLANGIOPANCREATOGRAPHY (ERCP) DIAGNOSTIC Choledocholithiasis ESOPHAGOGASTRODUODENOSCOPY ( EGD), FLEXIBLE, TRANSORAL, DIAGNOSTIC Choledocholithiasis COLONOSCOPY FLEXIBLE PROXIMAL DIAGNOSTIC Recall Colon cancer screening Scheduled Referrals Name Type Priority Associated Diagnoses Orde r Schedule REMOTE PATIENT MONITORING REFERRAL Referral Within 24 hrs (call dept; emergent) ILD (interstitial lung disease) (HCC) Ordered: 03/08/2024 Health Maintenance Due Date Last Done Comments [...] Additional history exists CKD HGB USE SMARTSET 73503 03/21/202503/21, 02/15/2024, 02/15/2024, Additional history exists CKD PHOS USE SMARTSET 02878 03/21/202503/09, 03/16/2023, 03/15/2023, Additional history exists Depression [...] this encounter Medical Devices Implanted Type Area Sr Technical Sales Consultant Device Identifier Shelf Expiration Date Model / Serial / Lot Cement Bone Simplex Hv & G - [id number] Implanted:Qty: 2 on 01/05/2023 by Harley Nguyen DO at OR [facility] Left: Knee [employer] : ORTH[employer] 06/08/2024 6195-1-010 / / [id number] Component Femoral Size 5 - [id number] Implanted:Qty: 1 on 01/05/2023 by Harley Nguyen DO at OR [facility] Left: Knee [employer] : ORTH[employer] 08/09/2026 5510-F-501 / / [id number] Knee Tria Syetric X3 10x36 - [id number] Implanted:Qty: 1 on 01/05/2023 by Harley Nguyen DO at OR [facility] Left: Knee [employer] : ORTH[employer] 09/24/2027 5550-G-360 -E / / [id number] Baseplate Tib 5 Knee - [id number] Implanted:Qty: 1 on 01/05/2023 by Harley Nguyen DO at OR [facility] Left: Knee [employer] : ORTH[employer] 12/14/2027 5521-B-500 / / [id number] Knee X3 Ins Pos Cs Sz5 9 - [id number] Implanted:Qty: 1 on 01/05/2023 by Harley Nguyen DO at OR [facility] Left: Knee [employer] : ORTH[employer] 11/19/2027 5531-G-509 -E / / [id number] Cement Bone Full Mix Surg Simp - [id number] Implanted:Qty: 1 on 03/03/2023 by Cholo Shah MD at OR [facility] [place] [place] Right: Knee [employer] : ORTHOPA[employer] 05/08/2025 6191-1-010 / / [id number] Knee Tib Comp Poly Krh 8 Lg - [id number] Implanted:Qty: 1 on 03/03/2023 by Cholo Shah MD at [facility] [place] [place] Right: Knee [employer] : ORTH[employer] 07/19/2023 6485-2-308 / / [id number] Knee Hrhk Mod Rot Hng Bushing - [id number] Implanted:Qty: 1 on 03/03/2023 by Cholo Shah MD at OR [facility] [place] [place] Right: Knee [employer] : ORTHOPAED[employer] 01/09/2027 6481-2-110 / / [id number] Knee Hrhk Mod Rot Hng Bushing - [id number] Implanted:Qty: 1 on 03/03/2023 by Cholo Shah MD at OR [facility] [place] [place] Right: Knee [employer] : ORTHOPAED[employer] 11/21/2026 6481-2-110 / / [id number] Knee Stem Crv Mod Mrs 07k528 - [id number] Implanted:Qty: 1 on 03/03/2023 by Cholo Shah MD at OR [facility] [place] [place] Right: Knee [employer] : ORTHOPA[employer] 10/02/2026 6485-3-715 / / [id number] Tib Mrh Cross Bear Long Xs/Xl - [id number] Implanted:Qty: 1 on 03/03/2023 by Cholo Shah MD at OR [facility] [place] [place] Right: Knee [employer] : ORTHOPAEDICS 12/05/2025 6481-2-103 / / [id number] Knee Tib Bumper Rot Hng Nue - [id number] Implanted:Qty: 1 on 03/03/2023 by Cholo Shah MD at OR [facility] [place] [place] Right: Knee [employer] : ORTHOPA[employer]ICS 07/15/2027 6481-2-130 / / [id number] Distal Femoral Component Implanted:Qty: 1 on 03/03/2023 by Cholo Shah MD at OR [facility] [place] [place] Right: Knee [employer] : ORTHOPA[employer] 08/23/2023 6495-2-040 / / [id number] Knee Axle Hrhk Rot Mod Hng - [id number] Implanted:Qty: 1 on 03/03/2023 by Cholo Shah MD at OR [facility] [place] [place] Right: Knee [employer] : ORTHOPA[employer] 06/30/2027 6481-2-120 / / [id number] Restrictors Med Cmnt D789-9882 - [id number] Implanted:Qty: 1 on 03/03/2023 by Cholo Shah MD at [facility] [place] [place] Right: Knee [employer] : ORTHOPAEDICS 11/18/2027 L318-9540 / / Cement Bone Full Mix Surg Simp - [id number] Implanted:Qty: 1 on 03/03/2023 by Cholo Shah MD at OR [facility] [place] [place] Right: Knee [employer] : ORTHOPA[employer] 07/09/2025 6191-1-010 / / [id number] Cement Bone Full Mix Surg Simp - [id number] Implanted:Qty: 1 on 03/03/2023 by Cholo Shah MD at [facility] [place] [place] Right: Knee [employer] : ORTHOPAEDICS 06/08/2025 6191-1-010 / / [id number] Cement Bone Full Mix Surg Simp - [id number] Implanted:Qty: 1 on 03/03/2023 by Cholo Shah MD at [facility] [place] [place] Right: Knee [employer] : ORTHOPAEDICS 05/08/2025 6191-1-010 / / [id number] Knee Fem Gmrs Dis Std R - [id number] Implanted:Qty: 1 on 03/10/2023 by Cholo Shah MD at [facility] [place] [place] Right: Knee [employer] : ORTHOPAEDICS 10/21/2027 6495-2-040 / / [id number] Knee Hrhk Mod Rot Hng Bushing - [id number] Implanted:Qty: 1 on 03/10/2023 by Cholo Shah MD at [facility] [place] [place] Right: Knee [employer] : ORTHOPAEDICS 01/29/2027 6481-2-110 / / [id number] Knee Axle Hrhk Rot Mod Hng - [id number] Implanted:Qty: 1 on 03/10/2023 by Cholo Shah MD at [facility] [place] [place] Right: Knee [employer] : ORTHOPAEDICS 09/15/2027 6481-2-120 / / [id number] Tib Mrh Cross Bear Long Xs/Xl - [id number] Implanted:Qty: 1 on 03/10/2023 by Cholo Shah MD at OR [facility] [place] [place] Right: Knee [employer] : ORTHOPAEDICS 09/30/2027 6481-2-103 / / [id number] Knee Hrhk Mod Rot Hng Bushing - [id number] Implanted:Qty: 1 on 03/10/2023 by Cholo Shah MD at [facility] [place] [place] Right: Knee [employer] : ORTHOPAEDICS 04/24/2027 6481-2-110 / / [id number] Knee Tib Bumper Rot Hng Nue - [id number] Implanted:Qty: 1 on 03/10/2023 by Cholo Shah MD at [facility] [place] [place] Right: Knee [employer] : ORTHOPAEDICS 10/15/2027 6481-2-130 / / [id number] documented as of this encounter Visit Diagnoses Diagnosis ILD (interstitial lung disease) (HCC)- Primary Postinflammatory pulmonary fibrosis documented in this encounter Advance Directives Documents on File Type Date Recorded Patient Microwave Remote Sensing Scientist Expl 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 Care Teams Bottom Wheeler Relationship Specialty Start Date End Date Kat Hawthorne DO [address] [place] [address] PCP - General Family Medicine 08/20/22 documented as of this encounter
--- OUTSIDE RECORDS SUMMARY | 2024-04-16 12:32 | External Medical Summary | Summary of Care ---
Author Name Unknown Organization [facility] Address [address] [place] [address] Phone [phone] Care Team Providers Care Chemistry Lecturer Name Role Phone Kat Hawthorne DO Primary Care Provider [phone] Encounter Details Date Type Department Care Team ([facility] st Contact Info) Description 03/24/2024 Orders Only PATIENT PORTAL DO NOT DELETE THIS DEPT USED BY [place] [id number] Allergies Active Allergy Reactions Criticality Noted Date [...] as of this encounter (statuses as of 03/24/2024) Medications Medication Sig Dispensed Refills Start Date End Date Status Cholecalciferol (VITAMIN D) 1000 UNITS Tablet Take 2 Tablets by mouth in the morning. 0 Active Folic Acid 1 MG Oral TabletIndications:An emia, unspecified type Take 1 tablet by mouth once daily 90 Tablet 3 12/09/2021 Active Docusate Sodium 100 MG Oral Capsule Take 1 Capsule by mouth in the morning and 1 Capsule before bedtime. 0 Active Loratadine 10 MG Oral Tablet (Claritin) Take by mouth 1 Tablet in the morning. 34 Tablet 5 06/26/2022 Active oxygen IN GASIndications:ILD (interstitial lung disease) ([facility]),Chronic respiratory failure with hypoxia (HCC) Use 2 LPM with exertion and 3 LPM with sleep. Needs small portable tanks, standing concentrator DME: [facility] 1 Each 0 07/02/2022 Active Proventil HFA 108 (90 Base) MCG/ACT Inhalation Aerosol SolutionIndications: ILD (interstitial lung disease) ([facility]) Inhale by mouth 2 Puffs every [...] 2 MINUTES, SPIT OUT, DO NOT RINSE 0 12/29/2022 Active Gabapentin 300 MG Oral Capsule (Neurontin) Take 1 Capsule by mouth in the morning and 1 Capsule at noon and 1 Capsule before bedtime. 90 Capsule 10 04/16/2023 Active Acetaminophen 325 MG Oral Tablet (Tylenol) Take 1 Tablet by mouth every 6 hours as needed. 0 Active Omeprazole 20 MG Oral Capsule Delayed Release (PriLOSEC) Take 1 Capsule by mouth in the morning and 1 Capsule before bedtime. 180 Capsule 3 04/23/2023 Active Naproxen Sodium 220 MG Oral Capsule Take 1 Capsule by mouth daily as needed for Pain. 0 Active Probiotic Daily Oral Capsule Take 1 Capsule by mouth in the morning. 0 Active Nystatin 120916 UNIT/GM External Powder (Nystop) Apply topically to affected area 3 times a day. 60 g 5 05/29/2023 Active Sotalol HCl 80 MG Oral Tablet (Betapace) Take 1 Tablet by mouth in the morning and 1 Tablet before bedtime. 180 Tablet 3 06/08/2023 Active Ipratropium-Albutero l 0.5-2.5 (3) MG/3ML Inhalation Solution Inhale 3 mL by mouth every 6 hours as needed. 0 Active Montelukast Sodium 10 MG Oral Tablet [...] morning with food, as instructed. 300 Tablet 0 10/23/2023 Active Sulfamethoxazole-Tri methoprim 800-160 MG Oral [...] hours as needed for Anxiety. 60 Tablet 0 03/04/2024 Active Bumetanide 2 MG Oral Tablet TAKE 1 TABLET BY MOUTH TWICE DAILY (IN THE MORNING AND AT NOON) 60 Tablet 5 03/07/2024 Active hydrOXYzine HCl 25 MG Oral TabletIndications:Pr uritus TAKE 1 TABLET BY MOUTH AT BEDTIME NEEDED FOR ITCHING 30 Tablet 3 03/22/2024 Active documented as of this encounter (statuses as of 03/24/2024) Active Problems Problem Noted Date Diagnosed Date [...] as of this encounter (statuses as of 03/24/2024) Resolved Problems Problem Noted Date Diagnosed Date [...] & Plan: S/P wound vac placement at [facility] On doxycycline 100 mg BID x 14 [...] History - s/p surgery & treatment per JEEP DRIVER note on 11/18/23 Ca 125: 68.8 U/mL [...] Per CKD protocol #1 Depression with anxiety 10/30/2015/06/2023 SOB (shortness of breath) 09/10/2012 Class 2 obesity in adult 04/23/201004/2022 Overview: Per Obesity Protocol, #19 ICD-10 update of inactive term MORE SPECIFIED CODE LISTED ON PL Notalgia Paresthetica (L) 06/23/2007 ADVANCE DIRECTIVE INFORMATION 05/07/2006 03/03/2018 Overview: Booklet given to pt today. Esophageal reflux 08/01/2019 Major depressive disorder Overview: ICD-10 update of inactive term documented as of this encounter (statuses as of 03/24/2024) Immunizations Name Administration Dates Next Due COVID-19 mRNA, LNP-s, No Pre serve, 2-Dose Series (Concuity) 08/23/2021,01/26/2021,01/05/2021 Pneumococcal Conjugate Vacc, 13 Valent (Prevnar) [...] (15 years old or older) No 02/29/20 23 Cognitive Status Response Date of Assessm ent Because of a physical, menta l, or emotional condition, do you have serious difficulty concentrating, remembering, or making decisions? (5 years old or older) No 02/28/2023 documented as of this encounter Plan of Treatment Upcoming Encounters Date Type Department Care Team (Latest Contact Info) Description 03/28/2024 3:00 PM EDT Home Visit [facility] [address] [place] [address] Sachin Pena PA-C [address] [place] [address] 04/18/2024 10:45 AM EDT Hospital Encounter ENDO [facility], Endoscopy Suite, [address], [address] [place] [address] Fish Ahmadi MD [address] [place] [address] 04/18/2024 10:45 AM EDT - 04/18/2024 12:30 PM EDT Surgery ENDO [facility], Endoscopy Suite, [address]AM [address], [address], [place] [phone] Fish Ahmadi MD [address], [place] [phone] ESOPHAGOGASTRODUODENOSCOPY (EGD), FLEXIBLE, TRANSORAL, ENDOSCOPIC ULTRASOUND 05/05/2024 10:30 AM EDT Office Visit Orthopaedics, [place] [address], [place] [phone] Cholo Shah MD [address], [place] [address] 05/10/2024 10:30 AM EDT Office Visit Gynecology/[facility] [address] [place] [address] Jeanie Gunter PA-C [address] [place] [address] 08/29/2024 11:00 AM EDT Office Visit Cardiology, [facility] [address] [facility] [place] [address] Shilpi Bailey PA-C [address] [place] [address] 10/07/2024 11:50 AM EST Office Visit [facility] [address] [place] [phone] Kat Hawthorne DO [address] [place] [address] Scheduled Procedures Name Priority Associated Diagnoses Date/Ti [...] 01/26/2021, Additional history exists GFR 09/21/2024 03/21/2024, 040 06/2024, 12/09/2023, Additional history exists Mammogram 12/09/2024 12/09/2023, 04/10, 03/07/2021, Additional history exists CKD HGB USE SMARTSET 25170 03/21/202503/21, 02/15/2024, 02/15/2024, Additional history exists CKD PHOS USE SMARTSET 86724 03/21/202503/09, 03/16/2023, 03/15/2023, Additional history exists Depression [...] this encounter Medical Devices Implanted Type Area Mask Design Engineer Device Identifier Shelf Expiration Date Model / Serial / Lot Cement Bone Simplex Hv & G - [id number] Implanted:Qty: 2 on 01/05/2023 by Harley Nguyen, DO at OR [facility] Left: Knee ROSALIA : ORTHOPAEDICS 06/08/2024 6195-1-010 / / [id number] Component Femoral Size 5 - [id number] Implanted:Qty: 1 on 01/05/2023 by Harley Nguyen DO at OR [facility] Left: Knee ROSALIA : ORTHOPAEDICS 08/09/2026 5510-F-501 / / [id number] Knee Tria Syetric X3 10x36 - [id number] Implanted:Qty: 1 on 01/05/2023 by Harley Nguyen DO at OR [facility] Left: Knee ROSALIA : ORTHOPAEDICS 09/24/2027 5550-G-360 -E / / [id number] Baseplate Tib 5 Knee - [id number] Implanted:Qty: 1 on 01/05/2023 by Harley Nguyen DO at OR [facility] Left: Knee ROSAILA : ORTHOPAEDICS 12/14/2027 5521-B-500 / / [id number] Knee X3 Ins Pos Cs Sz5 9 - [id number] Implanted:Qty: 1 on 01/05/2023 by Harley Nguyen DO at OR [facility] Left: Knee ROSALIA : ORTHOPAEDICS 11/19/2027 5531-G-509 -E / / [id number] Cement Bone Full Mix Surg Simp - [id number] Implanted:Qty: 1 on 03/03/2023 by Cholo Shah MD at OR [facility] Right: Knee ROSALIA : ORTHOPAEDICS 05/08/2025 6191-1-010 / / [id number] Knee Tib Comp Poly Krh 8 Lg - [id number] Implanted:Qty: 1 on 03/03/2023 by Cholo Shah MD at OR [facility] Right: Knee ROSALIA : ORTHOPAEDICS 07/19/2023 6485-2-308 / / [id number] Knee Hrhk Mod Rot Hng Bushing - [id number] Implanted:Qty: 1 on 03/03/2023 by Cholo Shah MD at OR [facility] Right: Knee ROSALIA : ORTHOPAEDICS 01/09/2027 6481-2-110 / / [id number] Knee Hrhk Mod Rot Hng Bushing - [id number] Implanted:Qty: 1 on 03/03/2023 by Cholo Shah MD at OR [facility] Right: Knee ROSALIA : ORTHOPAEDICS 11/21/2026 6481-2-110 / / [id number] Knee Stem Crv Mod Mrs 60s775 - [id number] Implanted:Qty: 1 on 03/03/2023 by Cholo Shah MD at OR [facility] Right: Knee ROSALIA : ORTHOPAEDICS 10/02/2026 6485-3-715 / / [id number] Tib Mrh Cross Bear Long Xs/Xl - [id number] Implanted:Qty: 1 on 03/03/2023 by Cholo Shah MD at OR [facility] Right: Knee ROSALIA : ORTHOPAEDICS 12/05/2025 6481-2-103 / / [id number] Knee Tib Bumper Rot Hng Nue - [id number] Implanted:Qty: 1 on 03/03/2023 by Cholo Shah MD at OR [facility] Right: Knee ROSALIA : ORTHOPAEDICS 07/15/2027 6481-2-130 / / [id number] Distal Femoral Component Implanted:Qty: 1 on 03/03/2023 by Cholo Shah MD at OR [facility] Right: Knee ROSALIA : ORTHOPAEDICS 08/23/2023 6495-2-040 / / [id number] Knee Axle Hrhk Rot Mod Hng - [id number] Implanted:Qty: 1 on 03/03/2023 by Cholo Shah MD at OR [facility] Right: Knee ROSALIA : ORTHOPAEDICS 06/30/2027 6481-2-120 / / [id number] Restrictors [facility] C[facility]nt F424-8816 - [id number] Implanted:Qty: 1 on 03/03/2023 by Cholo Shah MD at OR [facility] Right: Knee ROSALIA : ORTHOPAEDICS 11/18/2027 A256-5981 / / Cement Bone Full Mix Surg Simp - [id number] Implanted:Qty: 1 on 03/03/2023 by Cholo Shah MD at OR [facility] Right: Knee ROSALIA : ORTHOPAEDICS 07/09/2025 6191-1-010 / / [id number] Cement Bone Full Mix Surg Simp - [id number] Implanted:Qty: 1 on 03/03/2023 by Cholo Shah MD at OR [facility] Right: Knee ROSALIA : ORTHOPAEDICS 06/08/2025 6191-1-010 / / [id number] Cement Bone Full Mix Surg Simp - [id number] Implanted:Qty: 1 on 03/03/2023 by Cholo Shah MD at OR [facility] Right: Knee ROSALIA : ORTHOPAEDICS 05/08/2025 6191-1-010 / / [id number] Knee Fem Gmrs Dis Std R - [id number] Implanted:Qty: 1 on 03/10/2023 by Cholo Shah MD at OR [facility] Right: Knee ROSALIA : ORTHOPAEDICS 10/21/2027 6495-2-040 / / [id number] Knee Hrhk Mod Rot Hng Bushing - [id number] Implanted:Qty: 1 on 03/10/2023 by Cholo Shah MD at OR [facility] Right: Knee ROSALIA : ORTHOPAEDICS 01/29/2027 6481-2-110 / / [id number] Knee Axle Hrhk Rot Mod Hng - [id number] Implanted:Qty: 1 on 03/10/2023 by Cholo Shah MD at OR [facility] Right: Knee ROSALIA : ORTHOPAEDICS 09/15/2027 6481-2-120 / / [id number] Tib Mrh Cross Bear Long Xs/Xl - [id number] Implanted:Qty: 1 on 03/10/2023 by Cholo Shah MD at OR [facility] Right: Knee ROSALIA : ORTHOPAEDICS 09/30/2027 6481-2-103 / / [id number] Knee Hrhk Mod Rot Hng Bushing - [id number] Implanted:Qty: 1 on 03/10/2023 by Cholo Shah MD at OR [facility] Right: Knee ROSALIA : ORTHOPAEDICS 04/24/2027 6481-2-110 / / [id number] Knee Tib Bumper Rot Hng Nue - [id number] Implanted:Qty: 1 on 03/10/2023 by Cholo Shah MD at OR [facility] Right: Knee ROSALIA : ORTHOPAEDICS 10/15/2027 6481-2-130 / / [id number] documented as of this encounter Advance Directives Documents on File Type Date Recorded Patient Plan Rep Expl anation Advance Directives and Living Will 02/28/2023 ADVANCE DIRECTIVE / LIVING WILL Latest Code Status on File Code Status Date Activated Date Inactivated Comments No Code 02/28/2023 6:12 PM 03/18/2023 2:57 PM This order reflects the patients wishes and were consensually agreed upon. Question Answer Comments Discussion of Advance Directives occurred with: Patient Code Status History Code Status Date Activated Date Inactivated Comments Full Code 02/28/2023 6:10 PM 02/28/2023 6:12 PM This order reflects the patients wishes and were consensually agreed upon. Question Answer Comments Discussion of Advance Directives occurred with: Not Discussed due to patient's condition Full Code 01/05/2023 4:03 PM 01/10/2023 4:25 PM This o rder reflects the patients wishes and were consensually agreed upon. Question Answer Comments Discussion of Advance Directives occurred with: Patient Full Code 09/04/2020 9:21 AM 09/05/2020 5:41 PM Thi s order reflects the patients wishes and were consensually agreed upon. Care Teams Chemistry Lecturer Relationship Specialty Start Date End Date Kat Hawthorne DO [address] [place] [address] PCP - General Family Medicine 08/20/22 documented as of this encounter
--- OUTSIDE RECORDS SUMMARY | 2024-04-16 12:32 | External Medical Summary | Summary of Care ---
Author Name Unknown Organization [facility] Address [address] [place] [address] Phone [phone] Care Team Providers Care Distributor Operator Name Role Phone Kat Hawthorne DO Primary Care Provider [phone] Reason for Visit * Reason Onset Date Comments [facility]: Maintenance 03/28/2024 Encounter Details Date Type Department Care Team (Late st Contact Info) Description 03/28/2024 Telephone [facility], [facility] [address] [place] [address] [facility], Nurse [facility] [address] [place] [address] [facility]: Maintenance Allergies Active Allergy [...] as of this encounter (statuses as of 03/28/2024) Medications Medication Sig Dispensed Refills Start Date [...] IN GASIndications:ILD (interstitial lung disease) ([facility]),Chronic respiratory failure with hypoxia (HCC) Use 2 LPM with exertion and 3 LPM with sleep. Needs small portable tanks, standing concentrator DME: [facility] 1 Each 07/02/2022 Active Proventil HFA 108 (90 Base) MCG/ACT Inhalation Aerosol SolutionIndications: ILD (interstitial lung disease) ([facility]) Inhale by mouth 2 Puffs every 4 [...] by mouth in the morning. Active Nystatin 530677 UNIT/GM External Powder (Nystop) Apply topically to [...] as of this encounter (statuses as of 03/28/2024) Active Problems Problem Noted Date Diagnosed Date [...] fall No pain, no diarrhea currently Old DE (myocardial infarction) 04/14/2023 Hyperlipidemia 04/14/2023 History of [...] as of this encounter (statuses as of 03/28/2024) Resolved Problems Problem Noted Date Diagnosed Date [...] & Plan: S/P wound vac placement at [facility] On doxycycline 100 mg [...] History - s/p surgery & treatment per ABLE BODIED TANKERMAN note on 11/18/23 Ca 125: 68.8 U/mL [...] as of this encounter (statuses as of 03/28/2024) Immunizations Name Administration Dates Next Due COVID-19 mRNA, LNP-s, No Pre serve, 2-Dose Series (Gooddler) 08/23/2021,01/26/2021,01/05/2021 Pneumococcal Conjugate Vacc, 13 Valent (Prevnar) [...] Telephone Encounter - Lizzette Stephens LPN - 03/28/2024 10:02 AM EDT Images from the original note were not included. [facility] Remote Patient Monitoring Unable to contact patient: Trigger type: Abnormal reading(s): Device(s) Triggered: Current Health: Pulse Oximeter trigger: Oxygen saturation per oximeter: 88% Plan: Route to RNCM (Registered Nurse Television Repair Teacher) in care team Route to Advanced Practitioner in care team Left message to return call to [facility] Has appt with Sachin Pena later today documented in this encounter Plan of Treatment Upcoming Encounters Date Type Department Care Team (Latest Contact Info) Description 03/28/2024 3:00 PM EDT [facility] [place] [address] Sachin Pena PA-C [address] [place] [address] 04/18/2024 10:45 AM EDT Hospital Encounter ENDO [facility], Endoscopy Suite, HFAM 1, [address] [place] [address] Fish Ahmadi MD [address], [place] [address] 04/18/2024 10:45 AM EDT - 04/18/2024 12:30 PM EDT Surgery ENDO [facility], Endoscopy Suite, HFAM 1, [address], [place] [address] Fish Ahmadi MD [address], [place] [phone] ESOPHAGOGASTRODUODENOSCOPY (EGD), FLEXIBLE, TRANSORAL, ENDOSCOPIC ULTRASOUND 05/05/2024 10:30 AM EDT Office Visit Orthopaedics, [place] [address], [place] [phone] Cholo Shah MD [address], [place] [address] 05/10/2024 10:30 AM EDT Office Visit Gynecology/Oncol ogy, [place] [address], [place] [address] Jeanie Gunter PA-C [address], [place] [address] 08/29/2024 11:00 AM EDT [facility] [address] [facility]ilpi Bailey [facility]C [facility] [place] [address] 10/07/2024 11:50 AM EST Office Visit [facility] [address] [place] [phone] Kat Hawthorne DO [address] [place] [address] Scheduled Procedures Name Priority Associated Diagnoses Date/Ti [...] Additional history exists CKD HGB USE SMARTSET 86382 03/21/202503/21, 02/15/2024, 02/15/2024, Additional history exists CKD PHOS USE SMARTSET 18254 03/21/202503/09, 03/16/2023, 03/15/2023, Additional history exists Depression [...] this encounter Medical Devices Implanted Type Area Or First Assist Registered Nurse Device Identifier Shelf Expiration Date Model / Serial / Lot Cement Bone Simplex Hv & G - [id number] Implanted:Qty: 2 on 01/05/2023 by Harley Nguyen, at OR [facility] Left: Knee ROSALIA : ORTHOPAEDICS 06/08/2024 6195-1-010 / / [id number] Component Femoral Size 5 - [id number] Implanted:Qty: 1 on 01/05/2023 by Harley Nguyen DO at OR [facility] Left: Knee ROSALIA : ORTHOPAEDICS 08/09/2026 5510-F-501 / / [id number] Knee Tria Syetric X3 10x36 - [id number] Implanted:Qty: 1 on 01/05/2023 by Harley Nguyen DO at OR [facility] Left: Knee ROSALIA : ORTHOPAEDICS 09/24/2027 5550-G-360 -E / / [id number] Baseplate Tib 5 Knee - [id number] Implanted:Qty: 1 on 01/05/2023 by Harley Nguyen DO at OR [facility] Left: Knee ROSALIA : ORTHOPAEDICS 12/14/2027 5521-B-500 / / [id number] Knee X3 Ins Pos Cs Sz5 9 - [id number] Implanted:Qty: 1 on 01/05/2023 by Harley Nguyen DO at OR [facility] Left: Knee ROSALIA : ORTHOPAEDICS 11/19/2027 5531-G-509 -E / / [id number] Cement Bone Full Mix Surg Simp - [id number] Implanted:Qty: 1 on 03/03/2023 by Cholo Shah MD at OR [facility] Right: Knee ROSALIA : ORTHOPAEDICS 05/08/2025 6191-1-010 / / [id number] Knee Tib Comp Poly Krh 8 Lg - [id number] Implanted:Qty: 1 on 03/03/2023 by Cholo Shah MD at OR [facility] Right: Knee ROSALIA : ORTHOPAEDICS 07/19/2023 6485-2-308 / / [id number] Knee Hrhk Mod Rot Hng Bushing - [id number] Implanted:Qty: 1 on 03/03/2023 by Cholo Shah MD at OR [facility] Right: Knee ROSALIA : ORTHOPAEDICS 01/09/2027 6481-2-110 / / [id number] Knee Hrhk Mod Rot Hng Bushing - [id number] Implanted:Qty: 1 on 03/03/2023 by Cholo Shah MD at OR [facility] Right: Knee ROSALIA : ORTHOPAEDICS 11/21/2026 6481-2-110 / / [id number] Knee Stem Crv Mod Mrs 40k761 - [id number] Implanted:Qty: 1 on 03/03/2023 by Cholo Shah MD at OR [facility] Right: Knee ROSALIA : ORTHOPAEDICS 10/02/2026 6485-3-715 / / [id number] Tib Mrh Cross Bear Long Xs/Xl - [id number] Implanted:Qty: 1 on 03/03/2023 by Cholo Shah MD at OR [facility] Right: Knee ROSALIA : ORTHOPAEDICS 12/05/2025 6481-2-103 / / [id number] Knee Tib Bumper Rot Hng Nue - [id number] Implanted:Qty: 1 on 03/03/2023 by Cholo Shah MD at OR [facility] Right: Knee ROSALIA : ORTHOPAEDICS 07/15/2027 6481-2-130 / / [id number] Distal Femoral Component Implanted:Qty: 1 on 03/03/2023 by Cholo Shah MD at OR [facility] Right: Knee ROSALIA : ORTHOPAEDICS 08/23/2023 6495-2-040 / / [id number] Knee Axle Hrhk Rot Mod Hng - [id number] Implanted:Qty: 1 on 03/03/2023 by Cholo Shah MD at OR [facility] Right: Knee ROSALIA : ORTHOPAEDICS 06/30/2027 6481-2-120 / / [id number] Restrictors Med Cmnt Y691-9884 - [id number] Implanted:Qty: 1 on 03/03/2023 by Cholo Shah MD at OR [facility] Right: Knee ROSALIA : ORTHOPAEDICS 11/18/2027 V482-9628 / / Cement Bone Full Mix Surg Simp - [id number] Implanted:Qty: 1 on 03/03/2023 by Cholo Shah MD at OR [facility] Right: Knee ROSALIA : ORTHOPAEDICS 07/09/2025 6191-1-010 / / [id number] Cement Bone Full Mix Surg Simp - [id number] Implanted:Qty: 1 on 03/03/2023 by Cholo Shah MD at OR [facility] Right: Knee ROSALIA : ORTHOPAEDICS 06/08/2025 6191-1-010 / / [id number] Cement Bone Full Mix Surg Simp - [id number] Implanted:Qty: 1 on 03/03/2023 by Cholo Shah MD at OR [facility] Right: Knee ROSALIA : ORTHOPAEDICS 05/08/2025 6191-1-010 / / [id number] Knee Fem Gmrs Dis Std R - [id number] Implanted:Qty: 1 on 03/10/2023 by Cholo Shah MD at OR [facility] Right: Knee ROSALIA : ORTHOPAEDICS 10/21/2027 6495-2-040 / / [id number] Knee Hrhk Mod Rot Hng Bushing - [id number] Implanted:Qty: 1 on 03/10/2023 by Cholo Shah MD at OR [facility] Right: Knee ROSALIA : ORTHOPAEDICS 01/29/2027 6481-2-110 / / [id number] Knee Axle Hrhk Rot Mod Hng - [id number] Implanted:Qty: 1 on 03/10/2023 by Cholo Shah MD at OR [facility] Right: Knee ROSALIA : ORTHOPAEDICS 09/15/2027 6481-2-120 / / [id number] Tib Mrh Cross Bear Long Xs/Xl - [id number] Implanted:Qty: 1 on 03/10/2023 by Cholo Shah MD at OR [facility] Right: Knee ROSALIA : ORTHOPAEDICS 09/30/2027 6481-2-103 / / [id number] Knee Hrhk Mod Rot Hng Bushing - [id number] Implanted:Qty: 1 on 03/10/2023 by Cholo Shah MD at OR [facility] Right: Knee ROSALIA : ORTHOPAEDICS 04/24/2027 6481-2-110 / / [id number] Knee Tib Bumper Rot Hng Nue - [id number] Implanted:Qty: 1 on 03/10/2023 by Cholo Shah MD at OR [facility] Right: Knee ROSALIA : ORTHOPAEDICS 10/15/2027 6481-2-130 / / [id number] documented as of this encounter Advance Directives Documents on File Type Date Recorded Patient Hand Nailer Expl 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 Care Teams Distributor Operator Relationship Specialty Start Date End Date Kat Hawthorne DO [address] [place] [address] PCP - General Family Medicine 08/20/22 documented as of this encounter
--- OUTSIDE RECORDS SUMMARY | 2024-04-16 12:32 | External Medical Summary | Summary of Care ---
Author Name Unknown Organization [facility] Address [address] [place] [address] Phone [phone] Care Team Providers Care Licensed Sales Assistant Name Role Phone Kat Hawthorne DO Primary Care Provider [phone] Encounter Details Date Type Department Care Team (Late st Contact Info) Description 03/28/2024 3:00 PM EDT Home Visit [facility], [facility] [address] [place] [address] Sachin Pena PA-C [address] [place] [address] Chronic respiratory failure with hypoxia (HCC)*; ILD (interstitial lung disease) (HCC); Obstructive sleep apnea of adult; Heart failure with preserved left ventricular function (HFpEF) (HCC); Type 2 diabetes mellitus with diabetic chronic kidney disease, unspecified CKD stage, unspecified whether chcf insulin use (HCC); Old NC (myocardial infarction); Hepatic cirrhosis, unspecified hepatic cirrhosis type, unspecified whether ascites present (HCC); Advanced care planning/counseling discussion Allergies Active Allergy Reactions Criticality Noted Date [...] Active oxygen IN GASIndications:ILD (interstitial lung disease) ([facility]),Chronic respiratory failure with hypoxia (HCC) Use 2 LPM with exertion and 3 LPM with sleep. Needs small portable tanks, standing concentrator DME: [employer] 1 Each 07/02/2022 Active Proventil HFA 108 (90 Base) MCG/ACT Inhalation Aerosol SolutionIndications: ILD (interstitial lung disease) ([facility]) Inhale by mouth 2 Puffs [...] by mouth in the morning. Active Nystatin 259261 UNIT/GM External Powder (Nystop) Apply topically to [...] fall No pain, no diarrhea currently Old NC (myocardial infarction) 04/14/2023 Hyperlipidemia 04/14/2023 History of [...] & Plan: S/P wound vac placement at [facility] On doxycycline 100 mg BID [...] History - s/p surgery & treatment per [facility] note on 11/18/23 Ca 125: 68.8 U/mL [...] mRNA, LNP-s, No Pre serve, 2-Dose Series (Vigilent) 08/23/2021,01/26/2021,01/05/2021 Pneumococcal Conjugate Vacc, 13 Valent (Prevnar) [...] as of this encounter Progress Notes * Sachin Pena PA-C - 03/28/2024 1:49 PM EDT Images from the original note were not included. [facility] Problem Oriented Charting Provider Visit Date: 03/28/2024 Time: 1:[address] [facility] Sub-Program: Focused Care Management (3-9 months) Assessment and Plan #1 Chronic respiratory failure with hypoxia (HCC) (Primary) Assessment & Plan: On continuous supplemental o2 at 6lpm Will order humidifier for concentrator Orders: - Durable Medical Equipment #2 ILD (interstitial lung disease) (HCC) Assessment & Plan: Following with pulmonary ILD clinic Gradual improvement in breathing and functional capacity Prednisone dose at 10mg daily #3 Obstructive sleep apnea of adult Assessment & Plan: Recently started using NIV Working with respiratory therapy #4 Heart failure with preserved left ventricular function (HFpEF) (HCC) Assessment & Plan: "RED FLAG" HF Symptoms: [...] Additional Comments: Euvolemic today Bumex recently reduced #5 Type 2 diabetes mellitus with diabetic chronic kidney disease, unspecified CKD stage, unspecified whether buttermaker continuous churn insulin use (HCC) Assessment & Plan: Likely secondary to extended use of steroids Recent A1c at 7.1 Will need ongoing monitoring and consider treatment if remains elevated #6 Old NC (myocardial infarction) #7 Hepatic cirrhosis, unspecified hepatic cirrhosis type, unspecified whether ascites present (HCC) Assessment & Plan: Per CT, stable Additional Medical Decision Making: Lives alone in apartment, 1st floor Limited by SOB. Using continuous o2 at 6lpm. Using w/c for ambulation Working with respiratory therapy on NIV at home Continues on supplemental oxygen, monitors regularly will order humidifier for oxygen concentrator Recommended ayr gel Scheduled appointments in the next 60 days: Future Appointments-next 60 days Date/Time Provider Specialty Dept Phone 03/28/2024 3:00 PM Sachin Pena PA-C [facility] [phone] 05/05/2024 10:30 AM Cholo Shah MD Orthopedics [phone] 05/10/2024 10:30 AM (Arrive by 10:15 AM) Jeanie Gunter PA-C Gynecology Oncology [phone] 08/29/2024 11:00 AM (Arrive by 10:45 AM) Shilpi Bailey PA-C Cardiology [phone] 10/07/2024 11:50 AM (Arrive by 11:35 AM) aKt Hawthorne, [facility] Medicine [phone] A total of 30 minutes was spent face to face (via video-based telemedicine if designated as a telemedicine visit) Subjective Subjective Is this a Telemedicine Visit? No, this is an Home Visit. Reason For [facility] Visit: Transition of Care Current Concerns: Orin Bah is a 68 year old female seen today for a [facility] provider visit. PMH includes chronic resp failure with hypoxia, ILD, COPD, HTN, afib, pulmonary HTN, h/o ovarian cancer s/p MONIKA-BSO, BERRY, tachy-lakeisha syndrome s/p pacemaker 06/17-06/22/23 - [facility] - acute on chronic hypoxic resp failure 07/06-07/10/23 - [facility] - pneumonia, ILD, acute on chronic resp failure 07/22-08/11/23 - [facility] - acute on chronic respiratory failure 08/11-09/15/23 - [facility] 03/15-03/18/24 - [facility] - acute on chronic respiratory failure Today's concerns are: Recent admission to [facility] as above secondary to suspected oxygen concentrator failure at home Evaluated by pulmonary during visit, breathing imprvoed with supplemental o2 NIV setup for home use at discharge Patient reports breathing stable Was out for lunch with her brother prior to my visit She continues on o2 at 6lpm Has been working with respiratory therapy on NIV at home, although is unsure that she will tolerate In regards to prednisone, she is now tapered to 10mg daily Denies cough, chest pain, fever/chills Has decreased bumex from 4mg down to 2mg daily, edema unchanged Recently noted to have recurrent nose bleeds Is not on blood thinner Is using saline spray approx once daily Additional Objective Objective There were no vitals filed for this visit. Last Weights: Wt Readings from Last 3 Encounters: 02/17/24 105.2 kg (232 lb) 02/09/24 105.7 kg (233 lb) 01/27/24 105.7 kg (233 lb) Last BPs: BP Readings from Last 4 Encounters: 03/21/24 122/64 03/08/24 124/62 02/19/24 126/68 02/17/24 131/72 General: alert and no distress Neuro: alert & oriented x 3 with fluent speech Heart: no murmur and irregularly irregular Lungs: decreased breath sounds, no wheeze or rales Abdomen: abdomen soft, non-tender, obese, normal bowel sounds, and no rebound or guarding Ext: trace edema bilat LE Lab Review: I have reviewed the following results: Imaging results in the last [address] CHEST WO CONTRAST Result Date: 02/19/2024 IMPRESSION: 1. Diffuse interstitial lung disease. No significant change. 2. Cirrhosis with splenomegaly. 3. Pneumobilia. This could be related to previous me. 4. 1.4 cm right adrenal mass. Previous studies not available for direct comparison.Consider 12 month follow-up adrenal CT. (Reference: Remy) References: Remy EVANS, et al. Management of Incidental Adrenal Masses: A White Paper of the ACR Incidental Findings Committee. J Am Joyce Radiol. 2017;14(8):7030-3642. COMMENTS: Consistent with the [employer]'s Incidental Findings Committee white paper (J Am Joyce Radiol 2017): For any incidental adrenal lesion greater than or equal to 1 cm but less than or equal to 4 cm classified in this report as benign, likely benign, or containing fat (including classification asan adenoma or myelolipoma), no follow-up imaging is recommended per consensus recommendations basedon imaging criteria. Further lab evaluation could be pursued if warranted based on clinical findings. THIS DOCUMENT HAS BEEN ELECTRONICALLY SIGNED BY MICHAELA MCKEON MD XR TIB/FIB 2 VIEWS Result Date: 01/30/2024 IMPRESSION No radiographic evidence of acute osseous injury. XR KNEE 3 VIEWS Result Date: 01/15/2024 IMPRESSION No complication left total knee arthroplasty BMP results Recent Labs Units 03/21/24 1219 02/15/24 1225 12/09/23 1430 SODIUM - [facility] mmol/L 140 142 137 POTASSIUM - [facility] mmol/L 3.8 3.7 4.3 CHLORIDE - [facility] mmol/L 92* 96* 92* CO2 - [facility] mmol/L 36* 37* 33* CREATININE - [facility] mg/dL 0.9 1.0 1.1* BUN - [facility] mg/dL 26* 28* 41* CBC results Recent Labs Units 03/21/24 1219 02/15/24 1225 12/09/23 1430 WBC K/uL 8.13 7.91 7.32 HGB g/dL 8.8* 10.5* 11.3* HCT % 29.2* 35.4* 37.0 PLT K/uL 120* 124* 143 [facility]: [facility] Assessment: Assistive Devices Used in the Home: Manual Wheelchair Sachin Pena PA-C 1:49 PM *Communication sent to PCP (via [facility] if [facility]), [facility] Care Team members,relevant Specialty Care Physicians* documented in this encounter Miscellaneous Notes * ACP (Advance Care Planning) - Sachin Pena PA-C - 03/28/2024 10:55 PM EDT Patient-centered Communication 03/28/2024 The patient/surrogate voluntarily agreed to participate in advance care planning discussion. They were advised that this is a separate service which may incur out of pocket cost in the form of copayment and/or deductibles. Location: Home Individual(s) present for conversation: Patient Decisions Synopsis SmartLink Most Recent Value Past ~10 years 03/28/2024 22:53 Decisions CPR decision: Undecided about CPR 03/28/2024 Undecided about CPR Intubation/Mechanical Ventilation decision: Undecided about Intubation/mechanical ventilation 03/28/2024 Undecided about Intubation/mechanical ventilation Non-invasive ventilation or BIPAP decision: Patient chooses non-invasive ventilation. Select interventions below 03/28/2024 Patient chooses non-invasive ventilation. Select interventions below Non-Invasive Ventilation Interventions: Oxygen only;CPAP;BIPAP;NIV 03/28/2024 Oxygen only;CPAP;BIPAP;NIV Antibiotic therapy decision: Patient chooses Antibiotic therapy 09/17/2023 Artificial nutrition decision: Patient chooses Artificial nutrition 05/08/2023 IV hydration decision: Patient chooses IV hydration 09/17/2023 Chemotherapy decision: Patient chooses Chemotherapy 05/08/2023 Radiation therapy decision: Patient chooses Radiation therapy 05/08/2023 Surgical procedure(s) decision: Patient chooses Surgical procedure 05/08/2023 Blood transfusion decision: Patient chooses Blood transfusion 05/08/2023 Lab draw decision: Patient chooses Lab draws 05/08/2023 Transport decision: Patient chooses Transport 05/08/2023 Dialysis decision: Patient chooses Dialysis 05/08/2023 Additional Comments Synopsis [employer] Most Recent Value Past ~10 years 03/28/2024 22:53 Additional Comments Additional Comments: Undecided on goals of care. Will continue to discuss at f/u appointments. Did previously voice desire for DNR/DNI, but POLST never completed 03/28/2024 Undecided on goals of care. Will continue to discuss at f/u appointments. Did previously voice desire for DNR/DNI, but POLST never completed Discerning What Matters Most to the Patient: Synopsis Shop[employer] Most Recent Value Past ~10 years 09/17/2023 14:43 Discerning What Matters Most to the Patient In their own words, patient's UNDERSTANDING of their illness is: i have to be on oxygen all the time 09/17/2023 i have to be on oxygen all the time Their current SYMPTOMS include: Tiredness;Shortnes of breath 09/17/2023 Tiredness;Shortnes of breath They say their illness has CHANGED THEIR LIFE by: Less enjoyment (quality of life) 09/17/2023 Less enjoyment (quality of life) The patient thinks COMPLICATIONS in the future may be: More hospitalizations 09/17/2023 More hospitalizations The patient's HOPES are: Avoid intubation/mechanical ventilation 09/17/2023 Avoid intubation/mechanical ventilation Source: Content from [facility] Aligning Care With What Matters Most: Bridestoryopsis Shop[employer] Most Recent Value Past ~10 years 03/28/2024 22:53 Aligning Care With What Matters Most Interventions/Choices: CPR;Intubation/mechanical ventilation;Non-invasive ventilation or BIPAP 03/28/2024 CPR;Intubation/mechanical ventilation;Non-invasive ventilation or BIPAP Source: Content from [facility]pecting netomat Program 20 minutes spent in direct cccg-na-eulk discussion Sachin vargas PA-C * Assessment & Plan Note - Sachin Pena PA-C - 03/28/2024 10:51 PM EDT Associated Problem(s): Type 2 diabetes mellitus with diabetic chronic kidney disease (HCC) Likely secondary to extended use of steroids Recent A1c at 7.1 Will need ongoing monitoring and consider treatment if remains elevated * Assessment & Plan Note - Sachin Pena PA-C - 03/28/2024 10:48 PM EDT Associated Problem(s): Obstructive sleep apnea of adult Recently started using NIV Working with respiratory therapy * Assessment & Plan Note - Sachin Pena PA-C - 03/28/2024 10:48 PM EDT Associated Problem(s): ILD (interstitial lung disease) (HCC) Following with pulmonary ILD clinic Gradual improvement in breathing and functional capacity Prednisone dose at 10mg daily * Assessment & Plan Note - Sachin Pena PA-C - 03/28/2024 10:47 PM EDT Associated Problem(s): Hepatic cirrhosis (HCC) Per CT, stable * Assessment & Plan Note - Sachin Pena PA-C - 03/28/2024 10:47 PM EDT Associated Problem(s): Chronic respiratory failure with hypoxia (HCC) On continuous supplemental o2 at 6lpm Will order humidifier for concentrator * Assessment & Plan Note - Sachin Pena PA-C - 03/28/2024 10:47 PM EDT Associated Problem(s): Heart failure with preserved left ventricular function (HFpEF) (HCC) "RED FLAG" HF Symptoms: Leg Swelling (Examples: [...] Additional Comments: Euvolemic today Bumex recently reduced documented in this encounter Plan of Treatment Upcoming Encounters Date Type Department Care Team (Late st Contact Info) Description 05/05/2024 10:30 AM EDT Office Visit Orthopaedics, [place] [address] [place] [address] Cholo Shah MD [address] [place] [address] 05/10/2024 10:30 AM EDT Office Visit Gynecology/Oncology, [place] [address] [facility] [place] [address] Jeanie Gunter PA-C [address] [place] [address] 08/29/2024 11:00 AM EDT Office Visit Cardiology, [address] [place] [address] Shilpi Bailey PA-C [address] [place] [address] 10/07/2024 11:50 AM EST Office Visit [facility] [address] [facility], [place] [phone] Kat Hawthorne, DO [address] [facility], [place] [address] Scheduled Procedures Name Priority Associated Diagnoses Date/Ti [...] Additional history exists CKD HGB USE SMARTSET 17708 03/21/202503/21, 02/15/2024, 02/15/2024, Additional history exists CKD PHOS USE SMARTSET 13087 03/21/202503/09, 03/16/2023, 03/15/2023, Additional history exists Depression [...] this encounter Medical Devices Implanted Type Area Maintenance Groundman Device Identifier Shelf Expiration Date Model / Serial / Lot Cement Bone Simplex Hv & G - [id number] Implanted:Qty: 2 on 01/05/2023 by Harley Nguyen DO at [facility] Left: Knee [employer] : ORTH[employer] 06/08/2024 6195-1-010 / / [id number] Component Femoral Size 5 - [id number] Implanted:Qty: 1 on 01/05/2023 by Harley Nguyen DO at [facility] Left: Knee [employer] : ORTHOP[employer] 08/09/2026 5510-F-501 / / [id number] Knee Tria Syetric X3 10x36 - [id number] Implanted:Qty: 1 on 01/05/2023 by Harley Nguyen DO at [facility] Left: Knee [employer] : ORTH[employer] 09/24/2027 5550-G-360 -E / / [id number] Baseplate Tib 5 Knee - [id number] Implanted:Qty: 1 on 01/05/2023 by Harley Nguyen DO at [facility] Left: Knee [employer] : ORTH[employer] 12/14/2027 5521-B-500 / / [id number] Knee X3 Ins Pos Cs Sz5 9 - [id number] Implanted:Qty: 1 on 01/05/2023 by Harley Nguyen DO at [facility] Left: Knee [employer] : ORTH[employer] 11/19/2027 5531-G-509 -E / / [id number] Cement Bone Full Mix Surg Simp - [id number] Implanted:Qty: 1 on 03/03/2023 by Cholo Shah MD [place] [facility] [place]: Knee [employer] : ORTHOPA[employer]ICS 05/08/2025 6191-1-010 / / [id number] Knee Tib Comp Poly Krh 8 Lg - [id number] Implanted:Qty: 1 on 03/03/2023 by Cholo Shah MD [place] [facility] [place]: Knee [employer] : ORTH[employer] 07/19/2023 6485-2-308 / / [id number] Knee Hrhk Mod Rot Hng Bushing - [id number] Implanted:Qty: 1 on 03/03/2023 by Cholo Shah MD [place] [facility] [place]: Knee [employer] : ORTHOPAEDICS 01/09/2027 6481-2-110 / / [id number] Knee Hrhk Mod Rot Hng Bushing - [id number] Implanted:Qty: 1 on 03/03/2023 by Cholo Shah MD at [place] [facility] [place]: Knee [employer] : ORTHOPAEDICS 11/21/2026 6481-2-110 / / [id number] Knee Stem Crv Mod Mrs 43c978 - [id number] Implanted:Qty: 1 on 03/03/2023 by Cholo Shah MD [place] [facility] [place]: Knee [employer] : ORTHOPAEDICS 10/02/2026 6485-3-715 / / [id number] Tib Mrh Cross Bear Long Xs/Xl - [id number] Implanted:Qty: 1 on 03/03/2023 by Cholo Shah MD at [place] [facility] [place]: Knee [employer] : ORTHOPAEDICS 12/05/2025 6481-2-103 / / [id number] Knee Tib Bumper Rot Hng Nue - [id number] Implanted:Qty: 1 on 03/03/2023 by Cholo Shah MD at [place] [facility] [place] Right: Knee [employer] : ORTHOPAEDICS 07/15/2027 6481-2-130 / / [id number] Distal Femoral Component Implanted:Qty: 1 on 03/03/2023 by Cholo Shah MD at [place] [facility] [place]: Knee [employer] : ORTHOPA[employer]ICS 08/23/2023 6495-2-040 / / [id number] Knee Axle Hrhk Rot Mod Hng - [id number] Implanted:Qty: 1 on 03/03/2023 by Cholo Shah MD at [place] [facility] [place]: Knee [employer] : ORTHOPAEDICS 06/30/2027 6481-2-120 / / [id number] Restrictors Med Cmnt W704-0153 - [id number] Implanted:Qty: 1 on 03/03/2023 by Cholo Shah MD at [place] [facility] [place] Right: Knee [employer] : ORTHOPAEDICS 11/18/2027 C689-1102 / / Cement Bone Full Mix Surg Simp - [id number] Implanted:Qty: 1 on 03/03/2023 by Cholo Shah MD at [place] [facility] [place]: Knee [employer] : ORTHOPA[employer]ICS 07/09/2025 6191-1-010 / / [id number] Cement Bone Full Mix Surg Simp - [id number] Implanted:Qty: 1 on 03/03/2023 by Cholo Shah MD at [place] [facility] [place] Right: Knee [employer] : ORTHOPAEDICS 06/08/2025 6191-1-010 / / [id number] Cement Bone Full Mix Surg Simp - [id number] Implanted:Qty: 1 on 03/03/2023 by Cholo Shah MD at [place] [facility] [place]: Knee [employer] : ORTHOPAEDICS 05/08/2025 6191-1-010 / / [id number] Knee Fem Gmrs Dis Std R - [id number] Implanted:Qty: 1 on 03/10/2023 by Cholo Shah MD at [place] [facility] [place] Right: Knee [employer] : ORTHOPAEDICS 10/21/2027 6495-2-040 / / [id number] Knee Hrhk Mod Rot Hng Bushing - [id number] Implanted:Qty: 1 on 03/10/2023 by Cholo Shah MD at [place] [facility] [place] Right: Knee [employer] : ORTHOPAEDICS 01/29/2027 6481-2-110 / / [id number] Knee Axle Hrhk Rot Mod Hng - [id number] Implanted:Qty: 1 on 03/10/2023 by Cholo Shah MD at [place] [facility] [place] Right: Knee [employer] : ORTHOPAEDICS 09/15/2027 6481-2-120 / / [id number] Tib Mrh Cross Bear Long Xs/Xl - [id number] Implanted:Qty: 1 on 03/10/2023 by Cholo Shah MD at [place] [facility] [place] Right: Knee [employer] : ORTHOPAEDICS 09/30/2027 6481-2-103 / / [id number] Knee Hrhk Mod Rot Hng Bushing - [id number] Implanted:Qty: 1 on 03/10/2023 by Cholo Shah MD at [place] [facility] [place] Right: Knee [employer] : ORTHOPAEDICS 04/24/2027 6481-2-110 / / [id number] Knee Tib Bumper Rot Hng Nue - [id number] Implanted:Qty: 1 on 03/10/2023 by Cholo Shah MD at [place] [facility] [place] Right: Knee [employer] : ORTHOPAEDICS 10/15/2027 6481-2-130 / / [id number] documented as of this encounter Visit Diagnoses Diagnosis Chronic respiratory failure with hypoxia (HCC)- Primary Chronic respiratory failure ILD (interstitial lung disease) (HCC) Postinflammatory pulmonary fibrosis Obstructive sleep apnea of adult Obstructive sleep apnea (adult) (pediatric) Heart failure with preserved left ventricular function (HFpEF) (HCC) Heart failure, unspecified Type 2 diabetes mellitus with diabetic chronic kidney disease, unspecified CKD stage, unspecified whether chcf insulin use (HCC) Old NC (myocardial infarction) Old myocardial infarction Hepatic cirrhosis, unspecified hepatic cirrhosis type, unspecified whether ascites present (HCC) Advanced care planning/counseling discussion Other specified counseling documented in this encounter Advance Directives Documents on File Type Date Recorded Patient Physiognomist Expl 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 Care Teams Licensed Sales Assistant Relationship Specialty Start Date End Date Kat Hawthorne DO [address] [place] [address] PCP - General Family Medicine 08/20/22 documented as of this encounter
--- OUTSIDE RECORDS SUMMARY | 2024-04-16 12:32 | External Medical Summary | Summary of Care ---
Author Name Unknown Organization [facility] Address [address] [place] [address] Phone [phone] Care Team Providers Care Director Apparel Name Role Phone Kat Hawthorne DO Primary Care Provider [phone] Reason for Visit * Reason Onset Date Comments [facility]: Maintenance 04/02/2024 Encounter Details Date Type Department Care Team (Late st Contact Info) Description 04/02/2024 5:45 PM EDT Scheduled Telephone [facility], [facility] [address] [place] [address] [facility], Nurse [address] [address] Allergies Active Allergy Reactions Criticality Noted Date [...] as of this encounter (statuses as of 04/02/2024) Medications Medication Sig Dispensed Refills Start Date [...] Active oxygen IN GASIndications:ILD (interstitial lung disease) ([facility]),Chronic respiratory failure with hypoxia (HCC) Use 2 LPM with exertion and 3 LPM with sleep. Needs small portable tanks, standing concentrator DME: [employer] 1 Each 07/02/2022 Active Proventil HFA 108 (90 Base) MCG/ACT Inhalation Aerosol SolutionIndications: ILD (interstitial lung disease) ([facility]) Inhale by mouth 2 Puffs every 4 [...] by mouth in the morning. Active Nystatin 049249 UNIT/GM External Powder (Nystop) Apply topically to [...] as of this encounter (statuses as of 04/02/2024) Active Problems Problem Noted Date Diagnosed Date [...] fall No pain, no diarrhea currently Old DC (myocardial infarction) 04/14/2023 Hyperlipidemia 04/14/2023 History of [...] as of this encounter (statuses as of 04/02/2024) Resolved Problems Problem Noted Date Diagnosed Date [...] Plan: S/P wound vac placement at [facility] On doxycycline 100 mg BID x [...] History - s/p surgery & treatment per WATER PIPE INSTALLER note on 11/18/23 Ca 125: 68.8 U/mL [...] as of this encounter (statuses as of 04/02/2024) Immunizations Name Administration Dates Next Due COVID-19 [...] Encounter - Rudy, Nataliya Hernandez RN - 04/02/2024 5:38 PM EDT Images from the original note were not included. [facility] Telephonic Nurse Follow-Up Call [employer] Subprogram: Focused Care Management (3-9 months) Follow Up Call Type: Weekend Call 1752:PC to M # Spoke to patient. Patient identified by full name and date of Acute issue requiring follow-up call: Remote Patient Monitoring Trigger SPO2 < 92% Objective: 03/21/2024 11:07 AM 03/08/2024 12:22 PM 02/19/2024 1:21 PM 02/17/2024 10:22 AM 02/16/2024 1:17 PM VITALS ACROSS ENCOUNTERS BP 122/64 124/62 126/68 131/72 120/58 Pulse 63 64 68 69 78 Weight 105.2 kg BMI 35.28 kg/m2 Remote Patient Monitoring: Current Health Device: see 24 hr trend below Oxygen Needs: NO CHANGE from baseline supplemental oxygen needs 6-7 LPM DME Needs: NO DME needs identified Medications: No medication or dose adjustments made during acute episode Subjective: Condition Status: CHM trigger - SpO2 < 92% , actual 79-92 intermittently Current Concerns: Patient reports intermittent nasal congestion/nosebleeds And recent BIPAP start (getting use to device/wearing) Oxygen baseline 6-7 LPM Humidification already ordered, but not yet delivered No acute concerns noted today Questioning how much longer she has to wear RPM - will defer to primary team Disposition: Issue resolved. All appropriate follow up scheduled. Continued use of RPM Return w/[facility] to be scheduled - sent by [facility] AP for same Future Visits Scheduled: Future Appointments-next 60 days Date/Time Provider Specialty Dept Phone 04/02/2024 5:45 PM [facility], Nurse [facility] [phone] 05/05/2024 10:30 AM Cholo Shah MD Orthopedics [phone] 05/10/2024 10:30 AM (Arrive by 10:15 AM) Jeanie Gunter PA-C Gynecology Oncology [phone] 08/29/2024 11:00 AM (Arrive by 10:45 AM) Shilpi Bailey PA-C Cardiology [phone] 10/07/2024 11:50 AM (Arrive by 11:35 AM) Kat Hawthorne, DO Family Medicine [phone] Anabella Grant RN [facility] Senior Storage Engineer/ [facility] Toll Free Number: documented in this encounter Plan of Treatment Upcoming Encounters Date Type Department Care Team (Late st Contact Info) Description 05/05/2024 10:30 AM EDT Office Visit Orthopaedics, [place] [address] [place] [address] Cholo Shah MD [address] [place] [address] 05/10/2024 10:30 AM EDT Office Visit Gynecology/Oncology, [place] [address] [place] [address] Jeanie Gunter PA-C [address], [place] [phone] 08/29/2024 11:00 AM EDT Office Visit Cardiology, [facility] [address] [place] [address] Shilpi Bailey PA-C [address] [place] [address] 10/07/2024 11:50 AM EST Office Visit [place] [address] [place] [phone] Kat Hawthorne DO [facility] [place] [address] Scheduled Procedures Name Priority Associated Diagnoses Date/Ti [...] Additional history exists CKD HGB USE SMARTSET 74044 03/21/202503/21, 02/15/2024, 02/15/2024, Additional history exists CKD PHOS USE SMARTSET 69599 03/21/202503/09, 03/16/2023, 03/15/2023, Additional history exists Depression [...] this encounter Medical Devices Implanted Type Area Narrow Gauge Brakeman Device Identifier Shelf Expiration Date Model / Serial / Lot Cement Bone Simplex Hv & G - [id number] Implanted:Qty: 2 on 01/05/2023 by Harley Nguyen DO at [facility] Left: Knee ROSALIA : ORTHOPAEDICS 06/08/2024 6195-1-010 / / [id number] Femoral Size 5 - [id number] Implanted:Qty: 1 on 01/05/2023 by Harley Nguyen DO at OR [facility] Left: Knee ROSALIA : ORTHOPAEDICS 08/09/2026 5510-F-501 / / [id number] Knee Tria Syetric X3 10x36 - [id number] Implanted:Qty: 1 on 01/05/2023 by Harley Nguyen DO at OR [facility] Left: Knee ROSALIA : ORTHOPAEDICS 09/24/2027 5550-G-360 -E / / [id number] Baseplate Tib 5 Knee - [id number] Implanted:Qty: 1 on 01/05/2023 by Harley Nguyen DO at OR [facility] Left: Knee ROSALIA : ORTHOPAEDICS 12/14/2027 5521-B-500 / / [id number] Knee X3 Ins Pos Cs Sz5 9 - [id number] Implanted:Qty: 1 on 01/05/2023 by Harley Nguyen DO at OR [facility] Left: Knee ROSALIA : ORTHOPAEDICS 11/19/2027 5531-G-509 -E / / [id number] Cement Bone Full Mix Surg Simp - [id number] Implanted:Qty: 1 on 03/03/2023 by Cholo Shah MD at OR [facility] Right: Knee ROSALIA : ORTHOPAEDICS 05/08/2025 6191-1-010 / / [id number] Knee Tib Comp Poly Krh 8 Lg - [id number] Implanted:Qty: 1 on 03/03/2023 by Cholo Shah MD at OR [facility] Right: Knee ROSALIA : ORTHOPAEDICS 07/19/2023 6485-2-308 / / [id number] Knee Hrhk Mod Rot Hng Bushing - [id number] Implanted:Qty: 1 on 03/03/2023 by Cholo Shah MD at OR [facility] Right: Knee ROSALIA : ORTHOPAEDICS 01/09/2027 6481-2-110 / / [id number] Knee Hrhk Mod Rot Hng Bushing - [id number] Implanted:Qty: 1 on 03/03/2023 by Cholo Shah MD at OR [facility] Right: Knee ROSALIA : ORTHOPAEDICS 11/21/2026 6481-2-110 / / [id number] Knee Stem Crv Mod Mrs 90f208 - [id number] Implanted:Qty: 1 on 03/03/2023 by Cholo Shah MD at OR [facility] Right: Knee ROSALIA : ORTHOPAEDICS 10/02/2026 6485-3-715 / / [id number] Tib Mrh Cross Bear Long Xs/Xl - [id number] Implanted:Qty: 1 on 03/03/2023 by Cohlo Shah MD at OR [facility] Right: Knee ROSALIA : ORTHOPAEDICS 12/05/2025 6481-2-103 / / [id number] Knee Tib Bumper Rot Hng Nue - [id number] Implanted:Qty: 1 on 03/03/2023 by Cholo Shah MD at OR [facility] Right: Knee ROSALIA : ORTHOPAEDICS 07/15/2027 6481-2-130 / / [id number] Distal Femoral Component Implanted:Qty: 1 on 03/03/2023 by Cholo Shah MD at OR [facility] Right: Knee ROSALIA : ORTHOPAEDICS 08/23/2023 6495-2-040 / / [id number] Knee Axle Hrhk Rot Mod Hng - [id number] Implanted:Qty: 1 on 03/03/2023 by Cholo Shah MD at OR [facility] Right: Knee ROSALIA : ORTHOPAEDICS 06/30/2027 6481-2-120 / / [id number] Restrictors Med Cmnt S089-5214 - [id number] Implanted:Qty: 1 on 03/03/2023 by Cholo Shah MD at OR [facility] Right: Knee ROSALIA : ORTHOPAEDICS 11/18/2027 X895-1482 / / Cement Bone Full Mix Surg Simp - [id number] Implanted:Qty: 1 on 03/03/2023 by Cholo Shah MD at OR [facility] Right: Knee ROSALIA : ORTHOPAEDICS 07/09/2025 6191-1-010 / / [id number] Cement Bone Full Mix Surg Simp - [id number] Implanted:Qty: 1 on 03/03/2023 by Cholo Shah MD at OR [facility] Right: Knee ROSALIA : ORTHOPAEDICS 06/08/2025 6191-1-010 / / [id number] Cement Bone Full Mix Surg Simp - [id number] Implanted:Qty: 1 on 03/03/2023 by Cholo Shah MD at OR [facility] Right: Knee ROSALIA : ORTHOPAEDICS 05/08/2025 6191-1-010 / / [id number] Knee Fem Gmrs Dis Std R - [id number] Implanted:Qty: 1 on 03/10/2023 by Cholo Shah MD at OR [facility] Right: Knee ROSALIA : ORTHOPAEDICS 10/21/2027 6495-2-040 / / [id number] Knee Hrhk Mod Rot Hng Bushing - [id number] Implanted:Qty: 1 on 03/10/2023 by Cholo Shah MD at OR [facility] Right: Knee ROSALIA : ORTHOPAEDICS 01/29/2027 6481-2-110 / / [id number] Knee Axle Hrhk Rot Mod Hng - [id number] Implanted:Qty: 1 on 03/10/2023 by Cholo Shah MD at OR [facility] Right: Knee ROSALIA : ORTHOPAEDICS 09/15/2027 6481-2-120 / / [id number] Tib Mrh Cross Bear Long Xs/Xl - [id number] Implanted:Qty: 1 on 03/10/2023 by Cholo Shah MD at OR [facility] Right: Knee ROSALIA : ORTHOPAEDICS 09/30/2027 6481-2-103 / / [id number] Knee Hrhk Mod Rot Hng Bushing - [id number] Implanted:Qty: 1 on 03/10/2023 by Cholo Shah MD at OR [facility] Right: Knee ROSALIA : ORTHOPAEDICS 04/24/2027 6481-2-110 / / [id number] Knee Tib Bumper Issac Sungg Nue - [id number] Implanted:Qty: 1 on 03/10/2023 by Cholo Shah MD at OR [facility] Right: Knee ROSALIA : ORTHOPAEDICS 10/15/2027 6481-2-130 / / [id number] documented as of this encounter Advance Directives Documents on File Type Date Recorded Patient Banbury Mixer Operator Expl anation Advance Directives and Living [...] were consensually agreed upon. Care Teams Director Apparel Relationship Specialty Start Date End Date Kat Hawthorne DO [address] [address] PCP - General Family Medicine 08/20/22 documented as of this encounter
--- OUTSIDE RECORDS SUMMARY | 2024-04-16 12:33 | External Medical Summary | Summary of Care ---
Author Name Unknown Organization [facility] Address [address] [place] [address] Phone [phone] Care Team Providers Care Executive Director Of Marketing Name Role Phone Kat Hawthorne DO Primary Care Provider [phone] Reason for Visit * Reason Comments Outpatient Testing Encounter Details Date Type Department Care Team (Late st Contact Info) Description 03/22/2024 9:30 AM EDT Laboratory Laboratory, [address] [address] [address], Specimen Drop Off [place] [id number] [place] [address] Arrived Allergies Active Allergy Reactions Criticality Noted Date [...] as of this encounter (statuses as of 03/22/2024) Medications Medication Sig Dispensed Refills Start Date [facility]),Chronic respiratory failure with hypoxia ([facility]) Use 2 LPM with exertion and 3 [...] mouth in the morning. 0 Active Nystatin 103057 UNIT/GM External Powder (Nystop) Apply topically to [...] as of this encounter (statuses as of 03/22/2024) Active Problems Problem Noted Date Diagnosed Date [...] the fall No pain, no diarrhea currently Open wound of foot, right, subsequent encounter 04/21/2023 Last Assessment & Plan: S/P wound vac placement at [facility] On doxycycline 100 mg BID x 14 days Old AK (myocardial infarction) 04/14/2023 Hyperlipidemia 04/14/2023 Hereditary hemolytic anemia, unspecified 023 History of recent blood transfusion 01/13/2023 S/P total knee arthroplasty, left 01/05/2023 Prediabetes 12/22/2022 Overview: Per Prediabetes protocol History of ovarian cancer 12/19/2022 Heart failure with preserved left ventricular function (HFpEF) 12/19/2022 Severe obesity with body mas s index (BMI) of 35.0 to 39.9 with serious comorbidity 12/19/2022 Chronic respiratory failure with hypoxia 022 Last Assessment & Plan: Continues on supplemental o2 at 4-6 lpm ILD (interstitial lung disease) 06/05/2022 Last Assessment & Plan: Following with pulmonary ILD clinic Recently started prednisone high dose taper, 60mg initially, tapering by 10mg monthly, currently at 40mg daily Gradual improvement in breathing and functional capacity Pulmonary HTN 06/05/2022 Presence of cardiac pacemaker 03/26/2021 Last Assessment & Plan: secondary to tachy-lakeisha syndrome PAF (paroxysmal atrial fibrillation) 03/01/2021 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 03/01/2021 S/P MONIKA-BSO (total abdominal hysterectomy and bilateral salpingo-oophorectomy) 09/04/2020 PAT (paroxysmal atrial tachycardia) 12/09/2019 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 Anemia in other chronic diseases classified else where 12/09/2019 Last Assessment & Plan: Prednisone for hemolytic anemia Hg trending up 60 mg of prednisone currently Anemia 09/12/2019 Atypical atrial flutter 09/01/2019 Obstructive sleep apnea of adult 09/01/2019 Last Assessment & Plan: Cannot tolerate the CPAP Uses oxygen at night 2 L NC Nocturnal hypoxia 09/01/2019 GERD with esophagitis 08/01/2019 GENERAL OSTEOARTHROSIS 06/27/2003 GENERALIZED ANXIETY DIS 12/30/2001 Essential hypertension with goal blood pressure less than 130/80 documented as of this encounter (statuses as of 03/22/2024) Resolved Problems Problem Noted Date Diagnosed Date [...] distal femoral replacement Surgeon: Cholo Shah MD Chronic obstructive pulmonary disease 04/14/2023 07/23/2023 Overview: Per COPD GOLD Classification Hypertension with congestive heart failure and renal failure 04/14/2023 04/21/2023 Hyponatremia 03/09/2023 04/21/2023 Acute blood loss anemia 03/04/202304/09 Age-related osteoporosis wit h current pathological fracture of right femur 03/01/2023 Postoperative anemia due to acute blood loss 04/21/2023 Current moderate episode of major depressive disorder without prior episode 12/19/2022 Chronic kidney disease, stage 3a 08/19/2021 02/05/2022 [...] History - s/p surgery & treatment per DINKEY LOCOMOTIVE ENGINEER note on 11/18/23 Ca 125: 68.8 [...] total abdominal hysterectomy, bilateral salpingo-oophorectomy and omentectomy. Hypertensive kidney disease with chronic kidney disease [...] as of this encounter (statuses as of 03/22/2024) Immunizations Name Administration Dates Next Due COVID-19 mRNA, LNP-s, No Pre serve, 2-Dose Series (Silentium) 08/23/2021,01/26/2021,01/05/2021 Pneumococcal Conjugate Vacc, 13 Valent (Prevnar) [...] Department Care Team (Latest Contact Info) Description 03/25/2024 3:00 PM EDT Home Visit [facility] [address] [place] [address] Sachin Pena PA-C [address] [place] [address] 04/18/2024 10:45 AM EDT Hospital Encounter ENDO [facility], Endoscopy Suite, HFAM 1, [address] [place] [address] Fish Ahmadi MD [address] [place] [address] 04/18/2024 10:45 AM EDT - 04/18/2024 12:30 PM EDT Surgery ENDO [facility], Endoscopy Suite, HFAM 1, [address] [place] [address] Fish Ahmadi MD [address], [place] [phone] ESOPHAGOGASTRODUODENOSCOPY (EGD), FLEXIBLE, TRANSORAL, ENDOSCOPIC ULTRASOUND 05/05/2024 10:30 AM EDT Office Visit Orthopaedics, [place] [address] [place] [address] Cholo Shah MD [address], [place] [phone] 05/10/2024 10:30 AM EDT Office Visit Gynecology/[facility] [address] [place] [address] Jeanie Gunter PA-C [address] [place] [address] 08/29/2024 11:00 AM EDT Office Visit Cardiology, [facility] [address] [facility] [place] [address] Shilpi Bailey PA-C [address] [facility] [place] [address] 10/07/2024 11:50 AM EST Office Visit [facility] [address] [place] [phone] Kat Hawthorne [address], [place] [phone] Scheduled Procedures Name Priority Associated Diagnoses Date/Ti [...] Fecal Occult Blood Test 1998 Sigmoidoscopy 1998 Albumin/Creatinine Ratio 09/04/2022 021, 01/27/2019, 12/21/2017, Additional history exists COVID-19 Vaccine ( season) 2023 08/23/2021, 08/02/2021, 01/26/2021, Additional history exists GFR 09/21/2024 03/21/2024, 04/0 06/2024, 12/09/2023, Additional history exists Mammogram 12/09/2024 12/09/2023, 04/10, 03/07/2021, Additional history exists CKD HGB USE SMARTSET 41641 03/21/202503/21, 02/15/2024, 02/15/2024, Additional history exists CKD PHOS USE SMARTSET 97103 03/21/202503/09, 03/16/2023, 03/15/2023, Additional history exists Depression Screening 03/21/2025 03/21/2024 HbA1c 03/21/2025 03/21/2024, 07/2023, 05/27/2018, Additional history exists O2 ASSESSMENT COMPLETED IN PAST YEAR FOR COPD 03/21/2025 03/21/2024 Lipid Panel 09/03/2027 09/03/2022, 09/09, 08/02/2019, Additional [...] this encounter Medical Devices Implanted Type Area Analysis Lead Device Identifier Shelf Expiration Date Model / Serial / Lot Cement Bone Simplex Hv & G - [id number] Implanted:Qty: 2 on 01/05/2023 by Harley Nguyen, DO at OR [facility] Left: Knee ROSALIA : ORTHOPAEDICS 06/08/2024 6195-1-010 / / [id number] Component Femoral Size 5 - [id number] Implanted:Qty: 1 on 01/05/2023 by Harley Nguyen DO at OR [facility] Left: Knee ROSALIA : ORTHOPAEDICS 08/09/2026 5510-F-501 / / [id number] Knee Tria Syetric X3 10x36 - [id number] Implanted:Qty: 1 on 01/05/2023 by Harley Nguyen DO at OR [facility] Left: Knee ROSALIA : ORTHOPAEDICS 09/24/2027 5550-G-360 -E / / [id number] Baseplate Tib 5 Knee - [id number] Implanted:Qty: 1 on 01/05/2023 by Harley Nguyen DO at OR [facility] Left: Knee ROSALIA : ORTHOPAEDICS 12/14/2027 5521-B-500 / / [id number] Knee X3 Ins Pos Cs Sz5 9 - [id number] Implanted:Qty: 1 on 01/05/2023 by Harley Nguyen DO at OR [facility] Left: Knee ROSALIA : ORTHOPAEDICS 11/19/2027 5531-G-509 -E / / [id number] Cement Bone Full Mix Surg Simp - [id number] Implanted:Qty: 1 on 03/03/2023 by Cholo Shah MD at OR [facility] Right: Knee ROSALIA : ORTHOPAEDICS 05/08/2025 6191-1-010 / / [id number] Knee Tib Comp Poly Krh 8 Lg - [id number] Implanted:Qty: 1 on 03/03/2023 by Cholo Shah MD at OR [facility] Right: Knee ROSALIA : ORTHOPAEDICS 07/19/2023 6485-2-308 / / [id number] Knee Hrhk Mod Rot Hng Bushing - [id number] Implanted:Qty: 1 on 03/03/2023 by Cholo Shah MD at OR [facility] Right: Knee ROSALIA : ORTHOPAEDICS 01/09/2027 6481-2-110 / / [id number] Knee Hrhk Mod Rot Hng Bushing - [id number] Implanted:Qty: 1 on 03/03/2023 by Cholo Shah MD at OR [facility] Right: Knee ROSALIA : ORTHOPAEDICS 11/21/2026 6481-2-110 / / [id number] Knee Stem Crv Mod Mrs 34c654 - [id number] Implanted:Qty: 1 on 03/03/2023 by Cholo Shah MD at OR [facility] Right: Knee ROSALIA : ORTHOPAEDICS 10/02/2026 6485-3-715 / / [id number] Tib Mrh Cross Bear Long Xs/Xl - [id number] Implanted:Qty: 1 on 03/03/2023 by Cholo Shah MD at OR [facility] Right: Knee ROSALIA : ORTHOPAEDICS 12/05/2025 6481-2-103 / / [id number] Knee Tib Bumper Rot Hng Nue - [id number] Implanted:Qty: 1 on 03/03/2023 by Cholo Shah MD at OR [facility] Right: Knee ROSALIA : ORTHOPAEDICS 07/15/2027 6481-2-130 / / [id number] Distal Femoral Component Implanted:Qty: 1 on 03/03/2023 by Cholo Shah MD at OR [facility] Right: Knee ROSALIA : ORTHOPAEDICS 08/23/2023 6495-2-040 / / [id number] Knee Axle Hrhk Rot Mod Hng - [id number] Implanted:Qty: 1 on 03/03/2023 by Cholo Shah MD at OR [facility] Right: Knee ROSALIA : ORTHOPAEDICS 06/30/2027 6481-2-120 / / [id number] Restrictors Med Cmnt V792-6699 - [id number] Implanted:Qty: 1 on 03/03/2023 by Cholo Shah MD at OR [facility] Right: Knee ROSALIA : ORTHOPAEDICS 11/18/2027 M079-2700 / / Cement Bone Full Mix Surg Simp - [id number] Implanted:Qty: 1 on 03/03/2023 by Cholo Shah MD at OR [facility] Right: Knee ROSALIA : ORTHOPAEDICS 07/09/2025 6191-1-010 / / [id number] Cement Bone Full Mix Surg Simp - [id number] Implanted:Qty: 1 on 03/03/2023 by Cholo Shah MD at OR [facility] Right: Knee ROSALIA : ORTHOPAEDICS 06/08/2025 6191-1-010 / / [id number] Cement Bone Full Mix Surg Simp - [id number] Implanted:Qty: 1 on 03/03/2023 by Cholo Shah MD at OR [facility] Right: Knee ROSALIA : ORTHOPAEDICS 05/08/2025 6191-1-010 / / [id number] Knee Fem Gmrs Dis Std R - [id number] Implanted:Qty: 1 on 03/10/2023 by Cholo Shah MD at OR [facility] Right: Knee ROSALIA : ORTHOPAEDICS 10/21/2027 6495-2-040 / / [id number] Knee Hrhk Mod Rot Hng Bushing - [id number] Implanted:Qty: 1 on 03/10/2023 by Cholo Shah MD at OR [facility] Right: Knee ROSALIA : ORTHOPAEDICS 01/29/2027 6481-2-110 / / [id number] Knee Axle Hrhk Rot Mod Hng - [id number] Implanted:Qty: 1 on 03/10/2023 by Cholo Shah MD at OR [facility] Right: Knee ROSALIA : ORTHOPAEDICS 09/15/2027 6481-2-120 / / [id number] Tib Mrh Cross Bear Long Xs/Xl - [id number] Implanted:Qty: 1 on 03/10/2023 by Cholo Shah MD at OR [facility] Right: Knee ROSALIA : ORTHOPAEDICS 09/30/2027 6481-2-103 / / [id number] Knee Hrhk Mod Rot Hng Bushing - [id number] Implanted:Qty: 1 on 03/10/2023 by Cholo Shah MD at OR [facility] Right: Knee ROSALIA : ORTHOPAEDICS 04/24/2027 6481-2-110 / / [id number] Knee Tib Bumper Rot Hng Nue - [id number] Implanted:Qty: 1 on 03/10/2023 by Cholo Shah MD at OR [facility] Right: Knee ROSALIA : ORTHOPAEDICS 10/15/2027 6481-2-130 / / [id number] documented as of this encounter Advance Directives Documents on File Type Date Recorded Patient Brick Extruder Operator Expl 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 Care Teams Executive Director Of Marketing Relationship Specialty Start Date End Date Kat Hawthorne DO [address] [address] PCP - General Family Medicine 08/20/22 documented as of this encounter
--- OUTSIDE RECORDS SUMMARY | 2024-04-16 12:33 | External Medical Summary | Summary of Care ---
Author Name Unknown Organization [facility] Address [address] [place] [address] Phone [phone] Care Team Providers Care Counselling Psychologist Name Role Phone Kat Hawthorne DO Primary Care Provider [phone] Encounter Details Date Type Department Care Team (Late st Contact Info) Description 03/22/2024 Result Scan Unspecified Department Doni, Robert Rain MD [address] [place] [address] <No scans attached> Allergies Active Allergy Reactions [...] as of this encounter (statuses as of 03/23/2024) Medications Medication Sig Dispensed Refills Start Date [...] oxygen IN GASIndications:ILD (interstitial lung disease) ([facility]),Chronic respiratory failure with hypoxia (HCC) Use 2 LPM with exertion and 3 LPM with sleep. Needs small portable tanks, standing concentrator DME: [employer] 1 Each 0 07/02/2022 Active Proventil HFA 108 (90 Base) MCG/ACT Inhalation Aerosol SolutionIndications: ILD (interstitial lung disease) ([facility]) Inhale by mouth 2 Puffs [...] mouth in the morning. 0 Active Nystatin 691234 UNIT/GM External Powder (Nystop) Apply topically to [...] as of this encounter (statuses as of 03/23/2024) Active Problems Problem Noted Date Diagnosed Date [...] fall No pain, no diarrhea currently [place] (myocardial infarction) 04/14/2023 Hyperlipidemia 04/14/2023 History of [...] as of this encounter (statuses as of 03/23/2024) Resolved Problems Problem Noted Date Diagnosed Date [...] & Plan: S/P wound vac placement at [facility] On doxycycline 100 mg BID [...] History - s/p surgery & treatment per SHOW DESIGN SUPERVISOR note on 11/18/23 Ca 125: 68.8 U/mL [...] as of this encounter (statuses as of 03/23/2024) Immunizations Name Administration Dates Next Due COVID-19 [...] Description 03/28/2024 3:00 PM EDT Home Visit [facility] [address] [place] [address] Sachin Pena PA-C [address] [place] [address] 04/18/2024 10:45 AM EDT Hospital Encounter ENDO [facility], Endoscopy Suite, [address], [address] [place] [address] Fish Ahmadi MD [address] [place], [place] [id number] 04/18/2024 10:45 AM EDT - 04/18/2024 12:30 PM EDT Surgery ENDO [facility], Endoscopy [address], [address], [address] [place] [address] Fish Ahmadi MD [address], [place] [id number] ESOPHAGOGASTRODUODENOSCOPY (EGD), FLEXIBLE, TRANSORAL, ENDOSCOPIC ULTRASOUND 05/05/2024 10:30 AM EDT [facility] [address], [place] [phone] Cholo Shah MD [address], [place] [phone] 05/10/2024 10:30 AM EDT Office Visit Gynecology/Oncol [facility] [address] [place] [address] Jeanie Gunter PA-C [address] [place] [address] 08/29/2024 11:00 AM EDT Office Visit Cardiology, [facility] [address] [facility] [place] [address] Shilpi Bailey PA-C [address] [place] [address] 10/07/2024 11:50 AM EST Office Visit [place] [address] [place] [phone] Kat Hawthorne, [address], [place] [phone] Scheduled Procedures Name Priority Associated Diagnoses Date/Ti [...] 12/09/2023, Additional history exists Mammogram 12/09/2024 12/09/2023, 0612/2021, 03/07/2021, Additional history exists CKD HGB USE SMARTSET 86383 03/21/202503/21, 02/15/2024, 02/15/2024, Additional history exists CKD PHOS USE SMARTSET 41707 03/21/202503/09, 03/16/2023, 03/15/2023, Additional history exists Depression [...] this encounter Medical Devices Implanted Type Area Insemination Worker Device Identifier Shelf Expiration Date Model / Serial / Lot Cement Bone Simplex Hv & G - [id number] Implanted:Qty: 2 on 01/05/2023 by Harley Nguyen, DO at OR [facility] Left: Knee [employer] : [employer] 06/08/2024 6195-1-010 / / [id number] Femoral Size 5 - [id number] Implanted:Qty: 1 on 01/05/2023 by Harley Nguyen DO at OR [facility] Left: Knee [employer] : [employer] 08/09/2026 5510-F-501 / / [id number] Knee Tria Syetric X3 10x36 - [id number] Implanted:Qty: 1 on 01/05/2023 by Harley Nguyen DO at OR [facility] Left: Knee [employer] : [employer] 09/24/2027 5550-G-360 -E / / [id number] Baseplate Tib 5 Knee - [id number] Implanted:Qty: 1 on 01/05/2023 by Harley Nguyen DO at OR [facility] Left: Knee [employer] : [employer] 12/14/2027 5521-B-500 / / [id number] Knee X3 Ins Pos Cs Sz5 9 - [id number] Implanted:Qty: 1 on 01/05/2023 by Harley Nguyen DO at OR [facility] Left: Knee [employer] : [employer] 11/19/2027 5531-G-509 -E / / [id number] Cement Bone Full Mix Surg Simp - [id number] Implanted:Qty: 1 on 03/03/2023 by Cholo Shah MD at OR [facility] Right: Knee [employer] : [employer] 05/08/2025 6191-1-010 / / [id number] Knee Tib Comp Poly Krh 8 Lg - [id number] Implanted:Qty: 1 on 03/03/2023 by Cholo Shah MD at OR [facility] Right: Knee [employer] : [employer] 07/19/2023 6485-2-308 / / [id number] Knee Hrhk Mod Rot Hng Bushing - [id number] Implanted:Qty: 1 on 03/03/2023 by Cholo Shah MD at OR [facility] Right: Knee [employer] : [employer] 01/09/2027 6481-2-110 / / [id number] Knee Hrhk Mod Rot Hng Bushing - [id number] Implanted:Qty: 1 on 03/03/2023 by Cholo Shah MD at OR [facility] Right: Knee [employer] : [employer] 11/21/2026 6481-2-110 / / [id number] Knee Stem Crv Mod Mrs 47n671 - [id number] Implanted:Qty: 1 on 03/03/2023 by Cholo Shah MD at OR [facility] Right: Knee [employer] : [employer] 10/02/2026 6485-3-715 / / [id number] Tib Mrh Cross Bear Long Xs/Xl - [id number] Implanted:Qty: 1 on 03/03/2023 by Cholo Shah MD at OR [facility] Right: Knee [employer] : [employer] 12/05/2025 6481-2-103 / / [id number] Knee Tib Bumper Rot Hng Nue - [id number] Implanted:Qty: 1 on 03/03/2023 by Cholo Shah MD at OR [facility] Right: Knee [employer] : [employer] 07/15/2027 6481-2-130 / / [id number] Distal Femoral Component Implanted:Qty: 1 on 03/03/2023 by Cholo Shah MD at OR [facility] Right: Knee [employer] : [employer] 08/23/2023 6495-2-040 / / [id number] Knee Axle Hrhk Rot Mod Hng - [id number] Implanted:Qty: 1 on 03/03/2023 by Cholo Shah MD at OR [facility] Right: Knee [employer] : [employer] 06/30/2027 6481-2-120 / / [id number] Restrictors Med Cmnt B137-5707 - [id number] Implanted:Qty: 1 on 03/03/2023 by Cholo Shah MD at OR [facility] Right: Knee [employer] : [employer] 11/18/2027 W924-1198 / / Cement Bone Full Mix Surg Simp - [id number] Implanted:Qty: 1 on 03/03/2023 by Cholo Shah MD at OR [facility] Right: Knee [employer] : [employer] 07/09/2025 6191-1-010 / / [id number] Cement Bone Full Mix Surg Simp - [id number] Implanted:Qty: 1 on 03/03/2023 by Cholo Shah MD at OR [facility] Right: Knee [employer] : [employer] 06/08/2025 6191-1-010 / / [id number] Cement Bone Full Mix Surg Simp - [id number] Implanted:Qty: 1 on 03/03/2023 by Cholo Shah MD at OR [facility] Right: Knee [employer] : [employer] 05/08/2025 6191-1-010 / / [id number] Knee Fem Gmrs Dis Std R - [id number] Implanted:Qty: 1 on 03/10/2023 by Cholo Shah MD at OR [facility] Right: Knee [employer] : [employer] 10/21/2027 6495-2-040 / / [id number] Knee Hrhk Mod Rot Hng Bushing - [id number] Implanted:Qty: 1 on 03/10/2023 by Cholo Shah MD at OR [facility] Right: Knee [employer] : [employer] 01/29/2027 6481-2-110 / / [id number] Knee Axle Hrhk Rot Mod Hng - [id number] Implanted:Qty: 1 on 03/10/2023 by Cholo Shah MD at OR [facility] Right: Knee [employer] : [employer] 09/15/2027 6481-2-120 / / [id number] Tib Mrh Cross Bear Long Xs/Xl - [id number] Implanted:Qty: 1 on 03/10/2023 by Cholo Shah MD at OR [facility] Right: Knee [employer] : [employer] 09/30/2027 6481-2-103 / / [id number] Knee Hrhk Mod Rot Hng Bushing - [id number] Implanted:Qty: 1 on 03/10/2023 by Cholo Shah MD at OR [facility] Right: Knee [employer] : [employer]TH[employer] 04/24/2027 6481-2-110 / / [id number] Knee Tib Bumper Rot Hng Nue - [id number] Implanted:Qty: 1 on 03/10/2023 by Cholo Shah MD at OR [facility] Right: Knee [employer] : [employer] 10/15/2027 6481-2-130 / / [id number] documented as of this encounter Procedures Procedure Name Priority Date/Time Associated Diagnosis Comments OUTSIDE LAB RESULTS 03/22/2024 documented in this encounter Results * OUTSIDE LAB RESULTS (03/22/2024) 03/22/2024 Robert Marion MD LABORATORY documented in this encounter Advance Directives Documents on File Type Date Recorded Patient Lighter Expl 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 Care Teams Counselling Psychologist Relationship Specialty Start Date End Date Kat Hawthorne DO [address] [place] [address] PCP - General Family Medicine 08/20/22 documented as of this encounter
--- OUTSIDE RECORDS SUMMARY | 2024-04-16 12:33 | External Medical Summary | Summary of Care ---
Author Name Unknown Organization [facility] Address [address] [place] [address] Phone [phone] Care Team Providers Care Admission Specialist Name Role Phone Kat Hawthorne DO Primary Care Provider [phone] Reason for Visit * Reason Comments Hospital Follow-Up Pt here today for carlatal follow upPt has concerns about her follow up in [place]. Encounter Details Date Type Department Care Team (Latest Contact Info) Description 03/21/2024 11:10 AM EDT Office Visit [facility] [address] [place] [address] Kat Hawthorne DO [address] [place] [address] Chronic respiratory failure with hypoxia (HCC)*; Hyperlipidemia, unspecified hyperlipidemia type; Anemia in other chronic diseases classified elsewhere; ILD (interstitial lung disease) (HCC); PAF (paroxysmal atrial fibrillation) (HCC); Atrial fibrillation, unspecified type (HCC); Prediabetes; Unspecified mood (affective) disorder (HCC); Generalized anxiety disorder Allergies Active Allergy Reactions Criticality Noted Date [...] as of this encounter (statuses as of 03/21/2024) Medications Medication Sig Dispensed Refills Start Date [...] mouth in the morning. 0 Active Nystatin 389185 UNIT/GM External Powder (Nystop) Apply topically to [...] the morning. 90 Tablet 1 11/20/2023 Active hydrOXYzine HCl 25 MG Oral TabletIndications:Pr uritus TAKE 1 TABLET BY MOUTH AT BEDTIME NEEDED FOR ITCHING 30 Tablet 3 11/27/2023 Active Fosfomycin Tromethamine 3 GM Oral Packet [...] as of this encounter (statuses as of 03/21/2024) Active Problems Problem Noted Date Diagnosed Date [...] & Plan: S/P wound vac placement at [facility] On doxycycline 100 mg BID x 14 days Old AR (myocardial infarction) 04/14/2023 Hyperlipidemia 04/14/2023 Hereditary hemolytic [...] as of this encounter (statuses as of 03/21/2024) Resolved Problems Problem Noted Date Diagnosed Date [...] major depressive disorder without prior episode 12/19/2022 3 Chronic kidney disease, stage 3a 08/19/2021 02/05/2022 [...] History - s/p surgery & treatment 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 on 11/18/23 Ca 125: 68.8 [...] as of this encounter (statuses as of 03/21/2024) Immunizations Name Administration Dates Next Due COVID-19 mRNA, LNP-s, No Pre serve, 2-Dose Series ([facility]) 08/23/2021,01/26/2021,01/05/2021 Pneumococcal Conjugate Vacc, 13 Valent (Prevnar) [...] Sign Reading Time Taken Comments Blood Pressure 122/64 03/21/2024 11:07 AM EDT Pulse 63 03/21/2024 11:07 AM EDT Temperature 36.5 C (97.7 F) 03/21/2024 11:07 AM E DT Respiratory Rate 18 03/21/2024 11:07 AM EDT Oxygen Saturation 92% 03/21/2024 11:07 AM EDT Inhaled Oxygen Concentration - - Weight - [...] No 02/28/2023 documented as of this encounter Patient Instructions * Patient Instructions* Katie Mcneal LPN - 03/21/2024 11:13 AM EDT Osteoporosis: Screening for Bone Loss The strength of bones is measured by their density (thickness). High bone density means bones are less likely to fracture. If you are at risk for bone loss, your healthcare provider may refer you forbone density testing. Bone Density Testing Bone density testing is safe, quick, easy, and painless. Testing can detect osteoporosis before a fracture happens. It can also predict the risk of future fractures. And testing can measure the response to treatment. There are two types of tests that you may have: Peripheral tests are used for screening. They measure density in the finger, wrist, knee, fontana, or heel. A common peripheral test is the quantitative ultrasound (QUS). Central tests are used for diagnosis. They measure density in the hip or spine. The main centraltest is the dual energy x-ray absorptiometry (DXA). The DXA is the standard bone density test. Who Should Be Tested? All postmenopausal women under age 65, with one or more risk factors in addition to menopause. All women age 65 and older. Postmenopausal women with fractures. Women who are thinking about treatment for osteoporosis. Women who have been on hormone therapy for a long time. Men or women with certain medical conditions or who are taking certain medications (such as glucocorticoids or prednisone) for a long period. Common Testing Sites Any bone can fracture, but with osteoporosis some bones fracture more easily. These include bones in the spine, wrist, shoulder, and hip. Thats why bone density testing may be done at one or more of these sites. Understanding Your Results The results of your test may seem confusing at first. Dont be afraid to ask your provider to explain. Your bone mineral density (BMD) describes the thickness of the bone that was scanned. Your healthcare provider will compare your BMD with the BMD of young, healthy bone. The result is called a T-score. Bones remodel at different rates. So, a healthy T-score in the wrist doesnt mean the spine is also healthy. Thats why more than one site may be scanned. [id number] [place] [address]. All rights reserved. This information is not intended as a substitute for professional medical care. Always follow your healthcare professional's instructions documented in this encounter Progress Notes * Kat Hawthorne DO - 03/21/2024 11:55 AM EDT Subjective: Orin Bah is a 68 year old female. Chief Complaint Patient presents with Hospital Follow-Up Pt here today for hospital follow up Pt has concerns about her follow up in [place]. HPI: 68 year old female with hx of HTN, pulmonary hypertension, s/p pacemaker, Atrial flutter, Anemia, ILD and CRI. She was hospitalized last week for being short of breath after taking a nap. She looked and her oxygen was not working and her pulse ox was down to 50 %. She was taken to the ER via EMS. She is on 4- 5 L at baseline of oxygen. She was kept there for 3 days. Given steroids. And sent home with BiPap and oxygen concentrator. She follows with pulmonary in [place]. Presents today with her brother ,she is in wheel chair. On 6 L of oxgyen. She if feeling tired. Feels similar to when she needs blood transfusion. Her hbg was 8.3 in the hospital. She is only on 10 mg of steroids at this point. She is inquiring if she can lower her bumex to 1 time a day. As she is having some urinary incontinence. She has no swelling in her legs. She was on lasix in the past but had lower GFR. 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 Anemia in other chronic diseases classified elsewhere D63.8 S/P MONIKA-BSO (total abdominal hysterectomy and bilateral salpingo-oophorectomy) Z90.710, Z90.722, Z90.79 PAF (paroxysmal atrial fibrillation) ([facility]) I48.0 Morbid (severe) obesity with alveolar hypoventilation ([facility]) E66.2 Presence of cardiac pacemaker Z95.0 Chronic respiratory failure with hypoxia ([facility]) J96.11 ILD (interstitial lung disease) ([facility]) J84.9 Pulmonary HTN ([facility]) I27.20 History of ovarian cancer Z85.43 Heart failure with preserved left ventricular function (HFpEF) ([facility]) I50.30 Severe obesity with body mass index (BMI) of 35.0 to 39.9 with serious comorbidity ([facility]) E66.01 Prediabetes R73.03 S/P total knee arthroplasty, left Z96.652 History of recent blood transfusion Z92.89 Old AR (myocardial infarction) I25.2 Hyperlipidemia E78.5 Hereditary hemolytic anemia, unspecified ([facility]) D58.9 Choledocholithiasis K80.50 Open wound of foot, right, subsequent encounter S91.301D History of kidney stones Z87.442 Acute on chronic diastolic CHF (congestive heart failure) ([facility]) I50.33 COPD, group B, by GOLD 2017 classification ([facility]) J44.9 Secondary esophageal varices without bleeding ([facility]) I85.10 Acquired hemolytic anemia ([facility]) D59.9 Pulmonary hypertension, unspecified ([facility]) I27.20 Atrial fibrillation ([facility]) I48.91 Morbid (severe) obesity due to excess calories ([facility]) E66.01 Stage 3 chronic kidney disease ([facility]) N18.30 Current Outpatient Medications Medication Sig Dispense Refill Cholecalciferol (VITAMIN D) 1000 UNITS Tablet Take 2 Tablets by mouth in the morning. Folic Acid 1 MG Oral Tablet Take 1 tablet by mouth once daily 90 Tablet 3 Docusate Sodium 100 MG Oral Capsule Take 1 Capsule by mouth in the morning and 1 Capsule before bedtime. Loratadine 10 MG Oral Tablet (Claritin) Take by mouth 1 Tablet in the morning. 34 Tablet 5 oxygen IN GAS Use 2 LPM with exertion and 3 LPM with sleep. Needs small portable tanks, standing concentrator DME: [facility] 1 Each 0 Proventil HFA 108 (90 Base) MCG/ACT Inhalation Aerosol Solution Inhale by mouth 2 Puffs every 4 hours as needed for Wheezing. 6.7 g 3 Sertraline HCl 100 MG Oral Tablet (Zoloft) Take 1 Tablet by mouth in the morning. 90 Tablet 3 SF 5000 Plus 1.1 % Dental Cream APPLY A THIN LAYER TO TOOTHBRUSH AND BRUSH ONCE DAILY FOR 2 MINUTES, SPIT OUT, DO NOT RINSE Gabapentin 300 MG Oral Capsule (Neurontin) Take 1 Capsule by mouth in the morning and 1 Capsule at noon and 1 Capsule before bedtime. 90 Capsule 10 Acetaminophen 325 MG Oral Tablet (Tylenol) Take 1 Tablet by mouth every 6 hours as needed. Omeprazole 20 MG Oral Capsule Delayed Release (PriLOSEC) Take 1 Capsule by mouth in the morning and1 Capsule before bedtime. 180 Capsule 3 Naproxen Sodium 220 MG Oral Capsule Take 1 Capsule by mouth daily as needed for Pain. Nystatin 840393 UNIT/GM External Powder (Nystop) Apply topically to affected area 3 times a day. 60g 5 Sotalol HCl 80 MG Oral Tablet (Betapace) Take 1 Tablet by mouth in the morning and 1 Tablet before bedtime. 180 Tablet 3 Ipratropium-Albuterol 0.5-2.5 (3) MG/3ML Inhalation Solution Inhale 3 mL by mouth every 6 hours as needed. Montelukast Sodium 10 MG Oral Tablet (Singulair) Take 1 Tablet by mouth in the morning. 90 Tablet 3 Amoxicillin 500 MG Oral Capsule (Amoxil) Take 4 Capsules by mouth as needed (one hour prior to dental procedure) for up to 1 dose. 4 Capsule 3 Hydrocortisone (Perianal) 2.5 % External Cream Administer into the rectum 2 times a day. 28 g 1 predniSONE 20 MG Oral Tablet (Deltasone) Take 3 tablet daily for 1 month, 2.5 tablets daily for 1 month, 2 tablets daily for 1 month, then 1.5 tablets daily until next visit, every morning with food,as instructed. 300 Tablet 0 amLODIPine Besylate 5 MG Oral Tablet (Norvasc) Take 1 Tablet by mouth in the morning. 90 Tablet 1 hydrOXYzine HCl 25 MG Oral Tablet TAKE 1 TABLET BY MOUTH AT BEDTIME NEEDED FOR ITCHING 30 Tablet3 Fosfomycin Tromethamine 3 GM Oral Packet (Monurol) Take 3 g by mouth once a week. 12 Packet 2 Cyclobenzaprine HCl 5 MG Oral Tablet (Flexeril) Take 1 tablet by mouth twice daily as needed for muscle spasm 60 Tablet 2 LORazepam 0.5 MG Oral Tablet (Ativan) Take 1 Tablet by mouth every 8 hours as needed for Anxiety. 60 Tablet 0 Bumetanide 2 MG Oral Tablet TAKE 1 TABLET BY MOUTH TWICE DAILY (IN THE MORNING AND AT NOON) 60 Tablet 5 Probiotic Daily Oral Capsule Take 1 Capsule by mouth in the morning. (Patient not taking: Reported on 03/21/2024) Sulfamethoxazole-Trimethoprim 800-160 MG Oral Tablet (Bactrim DS) Take 1 Tablet by mouth once a dayon Thursday, Thursday, and Thursday only. until gone. (Patient not taking: Reported on 03/21/2024) 15 Tablet 3 No current facility-administered medications for this visit. Review of patient's allergies indicates: Allergen Reactions Clindamycin Other reaction(s): PT CONTRACTED C-DIFF Levofloxacin Edema Other Other reaction(s): LE swelling and blistering Clindamycin Hcl Pt states she developed c diff Doxil [Doxorubicin Liposome] Infusion reaction Doxorubicin Other reaction(s): Hypoxia Paclitaxel Severe infusion reaction Other reaction(s): facial flushing, bradycardia Shellfish Allergy Topical betadine tolerated Adhesive Tape Other reaction(s): SKIN BLISTERS SOME TIMES; steri strips tolerated Shellfish-Derived Products Other reaction(s): NAUSEA,DIARRHEA, VOMITING Objective: BP 122/64 | Pulse 63 | Temp 36.5 C (97.7 F) (Infrared ) | Resp 18 | LMP 07/05/2003 | SpO2 92% Physical Exam: General: alert, healthy, and no distress, on 6 L of oxygen via NC. Heart: regular rate & rhythm, no murmur, and no gallops Lungs: chest symmetric with normal AP diameter, no chest deformities noted, no chest wall tenderness, lungs clear to auscultation Abdomen: abdomen soft, non-tender, normal bowel sounds, and no masses or organomegaly Extremities: no edema, leg wound on the L, open area, not indurated. Does not appear infected. ASSESSMENT/PLAN: Chronic respiratory failure with hypoxia (HCC) (Primary) Hyperlipidemia, unspecified hyperlipidemia type Anemia in other chronic diseases classified elsewhere - CBC; Future; Expected date: 03/21/2024 - BASIC METABOLIC PANEL; Future; Expected date: 03/21/2024 - IRON SCREEN, INCLUDING TIBC; Future; Expected date: 03/21/2024 ILD (interstitial lung disease) (HCC) Cont follow-up with pulmonary. PAF (paroxysmal atrial fibrillation) (HCC) Atrial fibrillation, unspecified type (HCC) Stable. Not on blood thinner due to anemia. Prediabetes - HEMOGLOBIN A1C; Future; Expected date: 03/21/2024 Elevated glucose due to 60 mg steroids in the ER. Will repeat. Unspecified mood (affective) disorder (HCC) Stable. Generalized anxiety disorder Stable. I did suggest to cut down to 1 bumex per day, and if swelling occurs to increase back to her normaldose. For her leg, I did hive her silver dressing to change weekly. If still open in 1-2 weeks to consider wound care referral Follow Up: Return in about 4 months (around 07/22/2024). Kat Hawthorne DO * Katie Mcneal LPN - 03/21/2024 11:13 AM EDT Dexa scan ordered today. Provider aware. Katie Mcneal LPN documented in this encounter Nursing Notes * Katie Mcneal LPN - 03/21/2024 11:02 AM EDT Chief Complaint Patient presents with Hospital Follow-Up Pt here today for hospital follow up Pt has concerns about her follow up in [place]. documented in this encounter Plan of Treatment Upcoming Encounters Date Type Department Care Team (Latest Contact Info) Description 03/25/2024 3:00 PM EDT Home Visit [facility] [place], [facility] [address] [place] [address] Sachin Pena PA-C [address] [place] [address] 04/18/2024 10:45 AM EDT Hospital Encounter ENDO [facility], Endoscopy [address], [address] [address], [address] [place] [address] Fish Ahmadi MD [address] [place] [address] 04/18/2024 10:45 AM EDT - 04/18/2024 12:30 PM EDT Surgery ENDO [facility], Endoscopy [address], [address], [address] [place] [address] Fish Ahmadi MD [address] [place] [address] ESOPHAGOGASTRODUODENOSCOPY (EGD), FLEXIBLE, TRANSORAL, ENDOSCOPIC ULTRASOUND 05/05/2024 10:30 AM EDT [facility] [address], [place] [id number] Cholo Shah MD [address] [place] [address] 05/10/2024 10:30 AM EDT Office Visit Gynecology/Oncol [facility] [address] [place] [address] Jeanie Gunter PA-C [address] [place] [address] 08/29/2024 11:00 AM EDT Office Visit Cardiology, [facility] [address] [facility] [place] [address] Shilpi Bailey PA-C [address] [place] [address] 10/07/2024 11:50 AM EST Office Visit [place] [address] [place] [address] Kat Hawthorne DO [address] [place] [address] Pending Results Name Type Priority Associated Diagnoses Date /Time CBC Lab Routine Anemia in other chronic diseases classified elsewhere 03/21/2024 12:19 PM EDT BASIC METABOLIC PANEL Lab Routine Anemia in other chronic diseases classified elsewhere 03/21/2024 12:19 PM EDT IRON SCREEN, INCLUDING TIBC Lab Routine Anemia in other chronic diseases classified elsewhere 03/21/2024 12:19 PM EDT Scheduled Orders Name Type Priority Associated Diagnoses Orde r Schedule CBC Lab Routine Anemia in other chronic diseases classified elsewhere Expected: 03/21/2024 (Approximate), Expires: 03/21/2025 BASIC METABOLIC PANEL Lab Routine Anemia in other chronic diseases classified elsewhere Expected: 03/21/2024 (Approximate), Expires: 03/21/2025 IRON SCREEN, INCLUDING TIBC Lab Routine Anemia in other chronic diseases classified elsewhere Expected: 03/21/2024 (Approximate), Expires: 03/21/2025 Scheduled Procedures Name Priority Associated Diagnoses Date/Ti [...] 2023 08/23/2021, 08/02/2021, 01/26/2021, Additional history exists HbA1c 12/18/2023 12/18/2022, 05/09, 10/21/2016, Additional history exists CKD PHOS USE SMARTSET 06646 03/16/2024 05/0 06/2023, 03/15/2023, 03/14/2023, Additional history exists GFR 08/16/2024 02/15/2024, 11/11, 09/17/2023, Additional history exists Mammogram 12/09/2024 12/09/2023, 04/10, 03/07/2021, Additional history exists CKD HGB USE SMARTSET 46952 02/14/202502/14, 02/15/2024, 12/09/2023, Additional history exists Depression Screening 03/21/2025 03/21/2024 [...] this encounter Medical Devices Implanted Type Area Gum Cook Device Identifier Shelf Expiration Date Model / Serial / Lot Cement Bone Simplex Hv & G - [id number] Implanted:Qty: 2 on 01/05/2023 by Harley Nguyen, DO at OR [facility] Left: Knee [employer] : [employer] 06/08/2024 6195-1-010 / / [id number] Component Femoral Size 5 - [id number] Implanted:Qty: 1 on 01/05/2023 by Harley Nguyen, DO at OR [facility] Left: Knee [employer] : [employer] 08/09/2026 5510-F-501 / / [id number] Knee Tria Syetric X3 10x36 - [id number] Implanted:Qty: 1 on 01/05/2023 by Harley Nguyen, DO at [facility] Left: Knee [employer] : [employer] 09/24/2027 5550-G-360 -E / / [id number] Baseplate Tib 5 Knee - [id number] Implanted:Qty: 1 on 01/05/2023 by Harley Nguyen DO at OR [facility] Left: Knee [employer] : [employer] 12/14/2027 5521-B-500 / / [id number] Knee X3 Ins Pos Cs Sz5 9 - [id number] Implanted:Qty: 1 on 01/05/2023 by Harley Nguyen DO at OR [facility] Left: Knee [employer] : [employer] 11/19/2027 5531-G-509 -E / / [id number] Cement Bone Full Mix Surg Simp - [id number] Implanted:Qty: 1 on 03/03/2023 by Cholo Shah MD at OR [facility] Right: Knee [employer] : [employer] 05/08/2025 6191-1-010 / / [id number] Knee Tib Comp Poly Krh 8 Lg - [id number] Implanted:Qty: 1 on 03/03/2023 by Cholo Shah MD at OR [facility] Right: Knee [employer] : [employer] 07/19/2023 6485-2-308 / / [id number] Knee Hrhk Mod Rot Hng Bushing - [id number] Implanted:Qty: 1 on 03/03/2023 by Cholo Shah MD at OR [facility] Right: Knee [employer] : [employer] 01/09/2027 6481-2-110 / / [id number] Knee Hrhk Mod Rot Hng Bushing - [id number] Implanted:Qty: 1 on 03/03/2023 by Cholo Shah MD at OR [facility] Right: Knee [employer] : [employer] 11/21/2026 6481-2-110 / / [id number] Knee Stem Crv Mod Mrs 97b958 - [id number] Implanted:Qty: 1 on 03/03/2023 by Cholo Shah MD at OR [facility] Right: Knee [employer] : [employer] 10/02/2026 6485-3-715 / / [id number] Tib Mrh Cross Bear Long Xs/Xl - [id number] Implanted:Qty: 1 on 03/03/2023 by Cholo Shah MD at OR [facility] Right: Knee [employer] : [employer] 12/05/2025 6481-2-103 / / [id number] Knee Tib Bumper Rot Hng Nue - [id number] Implanted:Qty: 1 on 03/03/2023 by Cholo Shah MD at OR [facility] Right: Knee [employer] : [employer] 07/15/2027 6481-2-130 / / [id number] Distal Femoral Component Implanted:Qty: 1 on 03/03/2023 by Cholo Shah MD at OR [facility] Right: Knee [employer] : [employer] 08/23/2023 6495-2-040 / / [id number] Knee Axle Hrhk Rot Mod Hng - [id number] Implanted:Qty: 1 on 03/03/2023 by Cholo Shah MD at OR [facility] Right: Knee [employer] : [employer] 06/30/2027 6481-2-120 / / [id number] Restrictors Med Cmnt G357-5598 - [id number] Implanted:Qty: 1 on 03/03/2023 by Cholo Shah MD at OR [facility] Right: Knee [employer] : [employer] 11/18/2027 X136-8607 / / Cement Bone Full Mix Surg Simp - [id number] Implanted:Qty: 1 on 03/03/2023 by Cholo Shah MD at OR [facility] Right: Knee [employer] : [employer] 07/09/2025 6191-1-010 / / [id number] Cement Bone Full Mix Surg Simp - [id number] Implanted:Qty: 1 on 03/03/2023 by Cholo Shah MD at OR [facility] Right: Knee [employer] : [employer] 06/08/2025 6191-1-010 / / [id number] Cement Bone Full Mix Surg Simp - [id number] Implanted:Qty: 1 on 03/03/2023 by Cholo Shah MD at OR [facility] Right: Knee [employer] : [employer] 05/08/2025 6191-1-010 / / [id number] Knee Fem Gmrs Dis Std R - [id number] Implanted:Qty: 1 on 03/10/2023 by Cholo Shah MD at OR [facility] Right: Knee [employer] : [employer] 10/21/2027 6495-2-040 / / [id number] Knee Hrhk Mod Rot Hng Bushing - [id number] Implanted:Qty: 1 on 03/10/2023 by Cholo Shah MD at OR [facility] Right: Knee [employer] : [employer] 01/29/2027 6481-2-110 / / [id number] Knee Axle Hrhk Rot Mod Hng - [id number] Implanted:Qty: 1 on 03/10/2023 by Cholo Shah MD at OR [facility] Right: Knee [employer] : [employer] 09/15/2027 6481-2-120 / / [id number] Tib Mrh Cross Bear Long Xs/Xl - [id number] Implanted:Qty: 1 on 03/10/2023 by Cholo Shah MD at OR [facility] Right: Knee [employer] : [employer] 09/30/2027 6481-2-103 / / [id number] Knee Hrhk Mod Rot Hng Bushing - [id number] Implanted:Qty: 1 on 03/10/2023 by Cholo Shah MD at OR [facility] Right: Knee [employer] : [employer] 04/24/2027 6481-2-110 / / [id number] Knee Tib Bumper Rot Hng Nue - [id number] Implanted:Qty: 1 on 03/10/2023 by Chool Shah MD at OR [facility] Right: Knee [employer] : [employer] 10/15/2027 6481-2-130 / / [id number] documented as of this encounter Visit Diagnoses Diagnosis Chronic respiratory failure with hypoxia (HCC)- Primary Chronic respiratory failure Hyperlipidemia, unspecified hyperlipidemia type Anemia in other chronic diseases classified elsewhere ILD (interstitial lung disease) (HCC) Postinflammatory pulmonary fibrosis PAF (paroxysmal atrial fibrillation) (HCC) Atrial fibrillation Atrial fibrillation, unspecified type (HCC) Prediabetes Other abnormal glucose Unspecified mood (affective) disorder (HCC) Generalized anxiety disorder Choledocholithiasis Calculus of bile duct without mention of cholecystitis or obstruction documented in this encounter Advance Directives Documents on File Type Date Recorded Patient Biometrics Consultant Expl 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 Care Teams Admission Specialist Relationship Specialty Start Date End Date Kat Hawthorne DO [address] [facility] [place] [address] PCP - General Family Medicine 08/20/22 documented as of this encounter"
--- OUTSIDE RECORDS SUMMARY | 2024-04-16 12:33 | External Medical Summary ---
Author Name Unknown Address Unknown Organization K01:[facility] - [facility] [address] [address] Laboratory Report Ordering Provider Test Date Status GUME KNIGHTAnanya 03/22/2024 09:25:46 Final Normal: <30 mg/g creatinine< br/>High: 30-300 mg/g creatinine
Very High: >300 mg/g creatinine
Nephrotic: >2200 mg/g creatinine Observation Date Value Abnormality Reference (Units ) Status Albumin, Urine 03/22/2024 09:25:46 2.66 (mg/dL) Final Creatinine, Urine 03/22/2024 09:25:46 86 (mg/dL) Final Albumin/Creatinine [Mass Ratio] in Urine 03/22/2024 09:25:46 31 Above high normal <30 (mg/g Creat) Final Performing Location [facility] - [address] [place] [address]
--- OUTSIDE RECORDS SUMMARY | 2024-04-16 12:33 | External Medical Summary | Summary of Care ---
Author Name Unknown Organization [facility] Address [address] [place] [address] Phone [phone] Care Team Providers Care Event Specialist Food Demonstrator Name Role Phone Kat Hawthorne DO Primary Care Provider [phone] Reason for Visit * Reason Comments Hospital Follow-Up Pt here today for carlatal follow upPt has concerns about her follow up in [place]. Encounter Details Date Type Department Care Team (Latest Contact Info) Description 03/21/2024 11:10 AM EDT Office Visit [facility] [address] [place] [address] Kat Hawthorne DO [address] [place] [address] Chronic respiratory failure with hypoxia [...] mouth in the morning. 0 Active Nystatin 419165 UNIT/GM External Powder (Nystop) Apply topically to [...] & Plan: S/P wound vac placement at [facility] On doxycycline 100 mg BID x 14 days Old GA (myocardial infarction) 04/14/2023 Hyperlipidemia 04/14/2023 Hereditary hemolytic [...] Stage IC2(cT1c2, cM0) - Signed by Harjeet iL MD on 09/12/2020 Overview: History - s/p surgery & treatment per AUTOMOBILE RADIATOR MECHANIC note on 11/18/23 Ca 125: 68.8 U/mL [...] mRNA, LNP-s, No Pre serve, 2-Dose Series (Sales Rabbit) 08/23/2021,01/26/2021,01/05/2021 Pneumococcal Conjugate Vacc, 13 Valent (Prevnar) [...] more than one site may be scanned. [id number] [place] [address]. All rights reserved. This information is not [...] has concerns about her follow up in [place]. HPI: 68 year old female with hx [...] oxygen concentrator. She follows with pulmonary in [place]. 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 Anemia in other chronic diseases classified elsewhere D63.8 S/P MONIKA-BSO (total abdominal hysterectomy and bilateral salpingo-oophorectomy) Z90.710, Z90.722, Z90.79 PAF (paroxysmal atrial fibrillation) ([facility]) I48.0 Morbid (severe) obesity with alveolar hypoventilation ([facility]) E66.2 Presence of cardiac pacemaker Z95.0 Chronic respiratory failure with hypoxia ([facility]) J96.11 ILD (interstitial lung disease) ([facility]) J84.9 Pulmonary HTN ([facility]) I27.20 History of ovarian cancer Z85.43 Heart failure with preserved left ventricular function (HFpEF) ([facility]) I50.30 Severe obesity with body mass index (BMI) of 35.0 to 39.9 with serious comorbidity ([facility]) E66.01 Prediabetes R73.03 S/P total knee arthroplasty, left Z96.652 History of recent blood transfusion Z92.89 Old GA (myocardial infarction) I25.2 Hyperlipidemia E78.5 Hereditary hemolytic anemia, unspecified ([facility]) D58.9 Choledocholithiasis K80.50 Open wound of foot, right, subsequent encounter S91.301D History of kidney stones Z87.442 Acute on chronic diastolic CHF (congestive heart failure) ([facility]) I50.33 COPD, group B, by GOLD 2017 classification ([facility]) J44.9 Secondary esophageal varices without bleeding ([facility]) I85.10 Acquired hemolytic anemia ([facility]) D59.9 Pulmonary hypertension, unspecified ([facility]) I27.20 Atrial fibrillation ([facility]) I48.91 Morbid (severe) obesity due to excess calories ([facility]) E66.01 Stage 3 chronic kidney disease ([facility]) N18.30 Current Outpatient Medications Medication Sig Dispense [...] mouth daily as needed for Pain. Nystatin 341871 UNIT/GM External Powder (Nystop) Apply topically to [...] has concerns about her follow up in [place]. documented in this encounter Plan of Treatment Upcoming Encounters Date Type Department Care Team (Latest Contact Info) Description 03/25/2024 3:00 PM EDT Home Visit [facility], [facility] [address] [place] [address] Sachin Pena PA-C [address] [place] [place] [address] 04/18/2024 10:45 AM EDT Hospital Encounter [facility] Endoscopy Suite, HFAM 1, [address] [place] [address] Fish Ahmadi MD [address] [place] [address] 04/18/2024 10:45 AM EDT - 04/18/2024 12:30 PM EDT Surgery [facility] Endoscopy Suite, HFAM 1, [address] [place] [address] Fish Ahmadi MD [address] [place] [address] ESOPHAGOGASTRODUODENOSCOPY (EGD), FLEXIBLE, TRANSORAL, ENDOSCOPIC ULTRASOUND 05/05/2024 10:30 AM EDT [facility] [address] [place], [place] [id number] Cholo Shah MD [address] [place] [address] 05/10/2024 10:30 AM EDT Office Visit Gynecology/[facility]col [facility] [address] [place] [address] Jeanie Gunter PA-C [address] [place] [address] 08/29/2024 11:00 AM EDT Office Visit Cardiology, [facility] [address] [facility] [place] [address] Shilpi Bailey PA-C [address] [place] [address] 10/07/2024 11:50 AM EST Office Visit [place] [address] [place] [address] Kat Hawthorne DO [address] [place] [address] Pending Results Name Type Priority Associated Diagnoses [...] Additional history exists CKD PHOS USE SMARTSET 27072 03/16/2024 05/0 06/2023, 03/15/2023, 03/14/2023, Additional history exists GFR 08/16/2024 02/15/2024, 11/11, 09/17/2023, Additional history exists Mammogram 12/09/2024 12/09/2023, 04/10, 03/07/2021, Additional history exists CKD HGB USE SMARTSET 94872 02/14/202502/14, 02/15/2024, 12/09/2023, Additional history exists Depression [...] this encounter Medical Devices Implanted Type Area Actuarial Internship Device Identifier Shelf Expiration Date Model / Serial / Lot Cement Bone Simplex Hv & G - [id number] Implanted:Qty: 2 on 01/05/2023 by Harley Nguyen, DO at OR [facility] Left: Knee ROSALIA : ORTHOPAEDICS 06/08/2024 6195-1-010 / / [id number] Component Femoral Size 5 - [id number] Implanted:Qty: 1 on 01/05/2023 by Harley Nguyen, DO at OR [facility] Left: Knee ROS[employer]IA : ORTHOPAEDICS 08/09/2026 5510-F-501 / / [id number] Knee Tria Syetric X3 10x36 - [id number] Implanted:Qty: 1 on 01/05/2023 by Harley Nguyen, DO at OR [facility] Left: Knee ROS[employer]IA : ORTHOPAEDICS 09/24/2027 5550-G-360 -E / / [id number] Baseplate Tib 5 Knee - [id number] Implanted:Qty: 1 on 01/05/2023 by Harley Nguyen DO at OR [facility] Left: Knee ROSALIA : ORTHOPAEDICS 12/14/2027 5521-B-500 / / [id number] Knee X3 Ins Pos Cs Sz5 9 - [id number] Implanted:Qty: 1 on 01/05/2023 by Harley Nguyen DO at OR [facility] Left: Knee ROSALIA : ORTHOPAEDICS 11/19/2027 5531-G-509 -E / / [id number] Cement Bone Full Mix Surg Simp - [id number] Implanted:Qty: 1 on 03/03/2023 by Cholo Shah MD at [place] [facility] Right: Knee ROSALIA : ORTHOPAEDICS 05/08/2025 6191-1-010 / / [id number] Knee Tib Comp Poly Krh 8 Lg - [id number] Implanted:Qty: 1 on 03/03/2023 by Cholo Shah MD at [place] [facility] Right: Knee [employer]IA : ORTHOPAEDICS 07/19/2023 6485-2-308 / / [id number] Knee Hrhk Mod Rot Hng Bushing - [id number] Implanted:Qty: 1 on 03/03/2023 by Cholo Shah MD at [place] [facility] Right: Knee ROS[employer]IA : ORTHOPAEDICS 01/09/2027 6481-2-110 / / [id number] Knee Hrhk Mod Rot Hng Bushing - [id number] Implanted:Qty: 1 on 03/03/2023 by Cholo Shah MD at [place] [facility] Right: Knee ROS[employer]IA : ORTHOPAEDICS 11/21/2026 6481-2-110 / / [id number] Knee Stem Crv Mod Mrs 58s404 - [id number] Implanted:Qty: 1 on 03/03/2023 by Cholo Shah MD at [place] [facility] Right: Knee ROS[employer]IA : ORTHOPAEDICS 10/02/2026 6485-3-715 / / [id number] Tib Mrh Cross Bear Long Xs/Xl - [id number] Implanted:Qty: 1 on 03/03/2023 by Cholo Shah MD at [place] [facility] Right: Knee [employer]IA : ORTHOPAEDICS 12/05/2025 6481-2-103 / / [id number] Knee Tib Bumper Rot Hng Nue - [id number] Implanted:Qty: 1 on 03/03/2023 by Cholo Shah MD at [place] [facility] Right: Knee ROSALIA : ORTHOPAEDICS 07/15/2027 6481-2-130 / / [id number] Distal Femoral Component Implanted:Qty: 1 on 03/03/2023 by Cholo Shah MD at [place] [facility] Right: Knee ROS[employer]IA : ORTHOPAEDICS 08/23/2023 6495-2-040 / / [id number] Knee Axle Hrhk Rot Mod Hng - [id number] Implanted:Qty: 1 on 03/03/2023 by Cholo Shah MD at [place] [facility] Right: Knee [employer]IA : ORTHOPAEDICS 06/30/2027 6481-2-120 / / [id number] Restrictors Med Cmnt Y223-0217 - [id number] Implanted:Qty: 1 on 03/03/2023 by Cholo Shah MD at [place] [facility] Right: Knee ROS[employer]IA : ORTHOPAEDICS 11/18/2027 E279-7110 / / Cement Bone Full Mix Surg Simp - [id number] Implanted:Qty: 1 on 03/03/2023 by Cholo Shah MD at [place] [facility] Right: Knee ROSALIA : ORTHOPAEDICS 07/09/2025 6191-1-010 / / [id number] Cement Bone Full Mix Surg Simp - [id number] Implanted:Qty: 1 on 03/03/2023 by Cholo Shah MD at [place] [facility] Right: Knee ROSALIA : ORTHOPAEDICS 06/08/2025 6191-1-010 / / [id number] Cement Bone Full Mix Surg Simp - [id number] Implanted:Qty: 1 on 03/03/2023 by Cholo Shah MD at [place] [facility] Right: Knee ROSALIA : ORTHOPAEDICS 05/08/2025 6191-1-010 / / [id number] Knee Fem Gmrs Dis Std R - [id number] Implanted:Qty: 1 on 03/10/2023 by Cholo Shah MD at [place] [facility] Right: Knee ROSALIA : ORTHOPAEDICS 10/21/2027 6495-2-040 / / [id number] Knee Hrhk Mod Rot Hng Bushing - [id number] Implanted:Qty: 1 on 03/10/2023 by Cholo Shah MD at [place] [facility] Right: Knee ROSALIA : ORTHOPAEDICS 01/29/2027 6481-2-110 / / [id number] Knee Axle Hrhk Rot Mod Hng - [id number] Implanted:Qty: 1 on 03/10/2023 by Cholo Shah MD at [place] [facility] Right: Knee ROSALIA : ORTHOPAEDICS 09/15/2027 6481-2-120 / / [id number] Tib Mrh Cross Bear Long Xs/Xl - [id number] Implanted:Qty: 1 on 03/10/2023 by Cholo Shah MD at [place] [facility] Right: Knee ROSALIA : ORTHOPAEDICS 09/30/2027 6481-2-103 / / [id number] Knee Hrhk Mod Rot Hng Bushing - [id number] Implanted:Qty: 1 on 03/10/2023 by Cholo Shah MD at [place] [facility] Right: Knee ROSALIA : ORTHOPAEDICS 04/24/2027 6481-2-110 / / [id number] Knee Tib Bumper Rot Hng Nue - [id number] Implanted:Qty: 1 on 03/10/2023 by Cholo Shah MD at [place] [facility] Right: Knee ROSALIA : ORTHOPAEDICS 10/15/2027 6481-2-130 / / [id number] documented as of this encounter Visit Diagnoses [...] Documents on File Type Date Recorded Patient Otc Clerk Expl 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 Care Teams Event Specialist Food Demonstrator Relationship Specialty Start Date End Date Kat Hawthorne DO [address] [facility] [place] [address] PCP - General Family Medicine 08/20/22 documented as of this encounter"
--- OUTSIDE RECORDS SUMMARY | 2024-04-16 12:33 | External Medical Summary | Summary of Care ---
Author Name Unknown Organization [facility] Address [address] [place] [facility] [address] Phone [phone] Care Team Providers Care Junior Paralegal Name Role Phone Kat Hawthorne DO Primary Care Provider [phone] Reason for Visit * Reason Onset Date Comments [facility]: Screening 03/23/2024 Encounter Details Date Type Department Care Team ([facility] st Contact Info) Description 03/23/2024 Telephone [facility], [facility] [address] [facility] [place] [address] [facility], Nurse [facility] [address] [facility] [place] [address] [facility]: Screening Allergies Active Allergy Reactions Criticality Noted Date [...] Active oxygen IN GASIndications:ILD (interstitial lung disease) ([facility]),Chronic respiratory failure with hypoxia (HCC) Use 2 LPM with exertion and 3 LPM with sleep. Needs small portable tanks, standing concentrator DME: [facility] 1 Each 0 07/02/2022 Active Proventil HFA 108 (90 Base) MCG/ACT Inhalation Aerosol SolutionIndications: ILD (interstitial lung disease) ([facility]) Inhale by mouth 2 Puffs [...] mouth in the morning. 0 Active Nystatin 855495 UNIT/GM External Powder (Nystop) Apply topically to [...] & Plan: S/P wound vac placement at [facility] On doxycycline 100 mg [...] History - s/p surgery & treatment per JEWELRY SALES REPRESENTATIVE note on 11/18/23 Ca 125: 68.8 U/mL [...] mRNA, LNP-s, No Pre serve, 2-Dose Series (Orthomimetics) 08/23/2021,01/26/2021,01/05/2021 Pneumococcal Conjugate Vacc, 13 Valent (Prevnar) [...] encounter Miscellaneous Notes * Telephone Encounter - Gemini Murry LPN - 03/23/2024 12:06 PM EDT [facility] Remote Patient Monitoring Able to contact patient: Trigger type: No reading available: Device(s) with no reading available: Current Health Outcome: Suspect device needs troubleshooting: battery needs re charged, instructed to place in chgarger documented in this encounter Plan of Treatment Upcoming Encounters Date Type Department Care Team (Latest Contact Info) Description 03/28/2024 3:00 PM EDT [facility] [address] [email or web address] [place] [address] Sachin Pena PA-C [address] [facility] [place] [address] 04/18/2024 10:45 AM EDT Hospital Encounter [facility], Endoscopy Suite, HFAM 1, [address] [place] [address] Fish Ahmadi MD [address] [place] [address] 04/18/2024 10:45 AM EDT - 04/18/2024 12:30 PM EDT Surgery [facility], Endoscopy Suite, HFAM 1, [address] [place] [address] Fish Ahmadi MD [address] [place] [address] ESOPHAGOGASTRODUODENOSCOPY (EGD), FLEXIBLE, TRANSORAL, ENDOSCOPIC ULTRASOUND 05/05/2024 10:30 AM EDT Office Visit Orthopaedics, [place] [address], [place] [address] Cholo Shah MD [address] [place], [place] [address] 05/10/2024 10:30 AM EDT Office Visit Gynecology/Oncol ogy, [place] [address] [place], [place] [address] Jeanie Gunter PA-C [address], [place] [address] 08/29/2024 11:00 AM EDT Office Visit Cardiology, [facility] [address] [place] [address] Shilpi Bailey PA-C [address] [facility] [address] 10/07/2024 11:50 AM EST Office Visit [facility] [address] [place] [address] Kat Hawthorne DO [address] [place] [address] Scheduled Procedures Name Priority Associated Diagnoses Date/Ti [...] Additional history exists CKD HGB USE SMARTSET 27073 03/21/202503/21, 02/15/2024, 02/15/2024, Additional history exists CKD PHOS USE SMARTSET 52647 03/21/202503/09, 03/16/2023, 03/15/2023, Additional history exists Depression [...] this encounter Medical Devices Implanted Type Area Meat Specialist Device Identifier Shelf Expiration Date Model / Serial / Lot Cement Bone Simplex Hv & G - [id number] Implanted:Qty: 2 on 01/05/2023 by Harley Nguyen DO at OR [facility] Left: Knee ROSALIA : ORTHOPAEDICS 06/08/2024 6195-1-010 / / [id number] Component Femoral Size 5 - [id number] Implanted:Qty: 1 on 01/05/2023 by Harley Nguyen DO at OR [facility] Left: Knee ROSALIA : ORTHOPAEDICS 08/09/2026 5510-F-501 / / [id number] Knee Tria Syetric X3 10x36 - [id number] Implanted:Qty: 1 on 01/05/2023 by Harley Nguyen DO at OR [facility] Left: Knee ROSALIA : ORTHOPAEDICS 09/24/2027 5550-G-360 -E / / [id number] Baseplate Tib 5 Knee - [id number] Implanted:Qty: 1 on 01/05/2023 by Harley Nguyen DO at OR [facility] Left: Knee ROSALIA : ORTHOPAEDICS 12/14/2027 5521-B-500 / / [id number] Knee X3 Ins Pos Cs Sz5 9 - [id number] Implanted:Qty: 1 on 01/05/2023 by Harley Nguyen DO at OR [facility] Left: Knee ROS[employer]IA : ORTHOPAEDICS 11/19/2027 5531-G-509 -E / / [id number] Cement Bone Full Mix Surg Simp - [id number] Implanted:Qty: 1 on 03/03/2023 by Cholo Shah MD at [place] [facility] Right: Knee ROSALIA : ORTHOPAEDICS 05/08/2025 6191-1-010 / / [id number] Knee Tib Comp Poly Krh 8 Lg - [id number] Implanted:Qty: 1 on 03/03/2023 by Cholo Shah MD at [place] [facility] Right: Knee ROSALIA : ORTHOPAEDICS 07/19/2023 6485-2-308 / / [id number] Knee Hrhk Mod Rot Hng Bushing - [id number] Implanted:Qty: 1 on 03/03/2023 by Cholo Shah MD at OR [facility] Right: Knee ROSALIA : ORTHOPAEDICS 01/09/2027 6481-2-110 / / [id number] Knee Hrhk Mod Rot Hng Bushing - [id number] Implanted:Qty: 1 on 03/03/2023 by Cholo Shah MD at [place] [facility] Right: Knee ROSALIA : ORTHOPAEDICS 11/21/2026 6481-2-110 / / [id number] Knee Stem Crv Mod Mrs 96j586 - [id number] Implanted:Qty: 1 on 03/03/2023 by Cholo Shah MD at OR [facility] Right: Knee ROSALIA : ORTHOPAEDICS 10/02/2026 6485-3-715 / / [id number] Tib Mrh Cross Bear Long Xs/Xl - [id number] Implanted:Qty: 1 on 03/03/2023 by Cholo Shah MD at OR [facility] Right: Knee ROSALIA : ORTHOPAEDICS 12/05/2025 6481-2-103 / / [id number] Knee Tib Bumper Rot Hng Nue - [id number] Implanted:Qty: 1 on 03/03/2023 by Cholo Shah MD at OR [facility] Right: Knee ROSALIA : ORTHOPAEDICS 07/15/2027 6481-2-130 / / [id number] Distal Femoral Component Implanted:Qty: 1 on 03/03/2023 by Cholo Shah MD at OR [facility] Right: Knee ROSALIA : ORTHOPAEDICS 08/23/2023 6495-2-040 / / [id number] Knee Axle Hrhk Rot Mod Hng - [id number] Implanted:Qty: 1 on 03/03/2023 by Cholo Shah MD at OR [facility] Right: Knee ROSALIA : ORTHOPAEDICS 06/30/2027 6481-2-120 / / [id number] Restrictors Med Cmnt H021-9585 - [id number] Implanted:Qty: 1 on 03/03/2023 by Cholo Shah MD at OR [facility] Right: Knee ROSALIA : ORTHOPAEDICS 11/18/2027 U959-4654 / / Cement Bone Full Mix Surg Simp - [id number] Implanted:Qty: 1 on 03/03/2023 by Cholo Shah MD at OR [facility] Right: Knee ROSALIA : ORTHOPAEDICS 07/09/2025 6191-1-010 / / [id number] Cement Bone Full Mix Surg Simp - [id number] Implanted:Qty: 1 on 03/03/2023 by Cholo Shah MD at [place] [facility] Right: Knee ROSALIA : ORTHOPAEDICS 06/08/2025 6191-1-010 / / [id number] Cement Bone Full Mix Surg Simp - [id number] Implanted:Qty: 1 on 03/03/2023 by Cholo Shah MD at [place] [facility] Right: Knee ROSALIA : ORTHOPAEDICS 05/08/2025 6191-1-010 / / [id number] Knee Fem Gmrs Dis Std R - [id number] Implanted:Qty: 1 on 03/10/2023 by Cholo Shah MD at OR [facility] Right: Knee ROSALIA : ORTHOPAEDICS 10/21/2027 6495-2-040 / / [id number] Knee Hrhk Mod Rot Hng Bushing - [id number] Implanted:Qty: 1 on 03/10/2023 by Cholo Shah MD at [place] [facility] Right: Knee ROSALIA : ORTHOPAEDICS 01/29/2027 6481-2-110 / / [id number] Knee Axle Hrhk Rot Mod Hng - [id number] Implanted:Qty: 1 on 03/10/2023 by Cholo Shah MD at OR [facility] Right: Knee ROSALIA : ORTHOPAEDICS 09/15/2027 6481-2-120 / / [id number] Tib Mrh Cross Bear Long Xs/Xl - [id number] Implanted:Qty: 1 on 03/10/2023 by Cholo Shah MD at [place] [facility] Right: Knee ROSALIA : ORTHOPAEDICS 09/30/2027 6481-2-103 / / [id number] Knee Hrhk Mod Rot Hng Bushing - [id number] Implanted:Qty: 1 on 03/10/2023 by Cholo Shah MD at OR [facility] Right: Knee ROSALIA : ORTHOPAEDICS 04/24/2027 6481-2-110 / / [id number] Knee Tib Bumper Rot Hng Nue - [id number] Implanted:Qty: 1 on 03/10/2023 by Cholo Shah MD at OR [facility] Right: Knee ROSALIA : ORTHOPAEDICS 10/15/2027 6481-2-130 / / [id number] documented as of this encounter Advance Directives Documents on File Type Date Recorded Patient Supply Person Expl 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 Care Teams Junior Paralegal Relationship Specialty Start Date End Date Kat Hawthorne DO [address] [place] [place] [address] PCP - General Family Medicine 08/20/22 documented as of this encounter
--- OUTSIDE RECORDS SUMMARY | 2024-04-16 12:33 | External Medical Summary | Summary of Care ---
Author Name Unknown Organization [facility] Address [address] [place] [address] Phone [phone] Care Team Providers Care Pollution Control Chemist Name Role Phone Kat Hawthorne DO Primary Care Provider [phone] Reason for Visit * Reason Onset Date Comments Appointment 03/22/2024 Encounter Details Date Type Department Care Team ([facility] st Contact Info) Description 03/22/2024 Telephone [facility] [place] [address] [place] [address] [phone] Services, Scheduling [address] [place] [address] Appointment (/) Allergies Active Allergy Reactions Criticality Noted Date [...] oxygen IN GASIndications:ILD (interstitial lung disease) ([facility]),Chronic respiratory failure with hypoxia ([facility]) Use 2 LPM with exertion and 3 LPM with sleep. Needs small portable tanks, standing concentrator DME: [facility] 1 Each 0 07/02/2022 Active Proventil HFA 108 (90 Base) MCG/ACT Inhalation Aerosol SolutionIndications: ILD (interstitial lung disease) ([facility]) Inhale by mouth 2 [...] mouth in the morning. 0 Active Nystatin 829483 UNIT/GM External Powder (Nystop) Apply topically to [...] & Plan: S/P wound vac placement at [facility] On doxycycline 100 mg BID [...] History - s/p surgery & treatment per AUTO DAMAGE ESTIMATOR note on 11/18/23 Ca 125: 68.8 U/mL [...] mRNA, LNP-s, No Pre serve, 2-Dose Series (Molecular Templates) 08/23/2021,01/26/2021,01/05/2021 Pneumococcal Conjugate Vacc, 13 Valent (Prevnar) [...] encounter Miscellaneous Notes * Telephone Encounter - Katarzyna Grissom OSA - 03/22/2024 10:38 AM EDT Request form Urvashi Cervantes to cx the appt on 03/25 and rs it 03/28@3pm w/Jean per her direction and she didn't have access and asked me to do it Called and had to lmom of this change documented in this encounter Plan of Treatment Upcoming Encounters Date Type Department Care Team (Latest Contact Info) Description 03/28/2024 3:00 PM EDT Home Visit [facility] [address] [place] [address] Sachin Pena PA-C [address] [place] [address] 04/18/2024 10:45 AM EDT Hospital Encounter ENDO [facility], Endoscopy Suite, HFAM 1, [address] [place] [address] Fish Ahmadi MD [address] [place] [address] 04/18/2024 10:45 AM EDT - 04/18/2024 12:30 PM EDT Surgery ENDO [facility], Endoscopy Suite, HFAM 1, [address] [place] [address] Fish Ahmadi MD [address] [place] [address] ESOPHAGOGASTRODUODENOSCOPY (EGD), FLEXIBLE, TRANSORAL, ENDOSCOPIC ULTRASOUND 05/05/2024 10:30 AM EDT Office Visit Orthopaedics, [place] [address] [place] [address] Cholo Shah MD [address] [place] [address] 05/10/2024 10:30 AM EDT Office Visit Gynecology/Oncol ogy, [place] [address] [place] [address] Jeanie Gunter PA-C [address], [place] [phone] 08/29/2024 11:00 AM EDT Office Visit Cardiology, [facility] [address] [place] [address] Shilpi Bailey PA-C [address] [facility] [place] [address] 10/07/2024 11:50 AM EST Office Visit [place] [address] [place] [phone] Kat Hawthorne DO [address] [place] [address] Scheduled Procedures Name Priority Associated Diagnoses Date/Ti or ESOPHAGOGASTRODUODENOSCOPY ( EGD), FLEXIBLE, TRANSORAL, ENDOSCOPIC ULTRASOUND [...] Additional history exists CKD HGB USE SMARTSET 64230 03/21/202503/21, 02/15/2024, 02/15/2024, Additional history exists CKD PHOS USE SMARTSET 34421 03/21/202503/09, 03/16/2023, 03/15/2023, Additional history exists Depression [...] this encounter Medical Devices Implanted Type Area Clinical Laboratory Medical Director Device Identifier Shelf Expiration Date Model / Serial / Lot Cement Bone Simplex Hv & G - [id number] Implanted:Qty: 2 on 01/05/2023 by Harley Nguyen, at OR [facility] Left: Knee ROSALIA : ORTHOPAEDICS 06/08/2024 6195-1-010 / / [id number] Femoral Size 5 - [id number] Implanted:Qty: 1 on 01/05/2023 by Harley Nguyen DO at OR [facility] Left: Knee ROSALIA : ORTHOPAEDICS 08/09/2026 5510-F-501 / / [id number] Knee Tria Syetric X3 10x36 - [id number] Implanted:Qty: 1 on 01/05/2023 by Harley Nguyen DO at OR [facility] Left: Knee ROSALIA : ORTHOPAEDICS 09/24/2027 5550-G-360 -E / / [id number] Baseplate Tib 5 Knee - [id number] Implanted:Qty: 1 on 01/05/2023 by Harley Nguyen DO at OR [facility] Left: Knee ROSALIA : ORTHOPAEDICS 12/14/2027 5521-B-500 / / [id number] Knee X3 Ins Pos Cs Sz5 9 - [id number] Implanted:Qty: 1 on 01/05/2023 by Harley Nguyen DO at OR [facility] Left: Knee ROSALIA : ORTHOPAEDICS 11/19/2027 5531-G-509 -E / / [id number] Cement Bone Full Mix Surg Simp - [id number] Implanted:Qty: 1 on 03/03/2023 by Cholo Shah MD at [place] [facility] Right: Knee ROSALIA : ORTHOPAEDICS 05/08/2025 6191-1-010 / / [id number] Knee Tib Comp Poly Krh 8 Lg - [id number] Implanted:Qty: 1 on 03/03/2023 by Cholo Shah MD at [place] [facility] Right: Knee ROSALIA : ORTHOPAEDICS 07/19/2023 6485-2-308 / / [id number] Knee Hrhk Mod Rot Hng Bushing - [id number] Implanted:Qty: 1 on 03/03/2023 by Cholo Shah MD at OR [facility] Right: Knee ROSALIA : ORTHOPAEDICS 01/09/2027 6481-2-110 / / [id number] Knee Hrhk Mod Rot Hng Bushing - [id number] Implanted:Qty: 1 on 03/03/2023 by Cholo Shah MD at OR [facility] Right: Knee ROSALIA : ORTHOPAEDICS 11/21/2026 6481-2-110 / / [id number] Knee Stem Crv Mod Mrs 94r081 - [id number] Implanted:Qty: 1 on 03/03/2023 by Cholo Shah MD at OR [facility] Right: Knee ROSALIA : ORTHOPAEDICS 10/02/2026 6485-3-715 / / [id number] Tib Mrh Cross Bear Long Xs/Xl - [id number] Implanted:Qty: 1 on 03/03/2023 by Cholo Shah MD at OR [facility] Right: Knee ROSALIA : ORTHOPAEDICS 12/05/2025 6481-2-103 / / [id number] Knee Tib Bumper Rot Hng Nue - [id number] Implanted:Qty: 1 on 03/03/2023 by Cholo Shah MD at OR [facility] Right: Knee ROSALIA : ORTHOPAEDICS 07/15/2027 6481-2-130 / / [id number] Distal Femoral Component Implanted:Qty: 1 on 03/03/2023 by Cholo Shah MD at [place] [facility] Right: Knee ROSALIA : ORTHOPAEDICS 08/23/2023 6495-2-040 / / [id number] Knee Axle Hrhk Rot Mod Hng - [id number] Implanted:Qty: 1 on 03/03/2023 by Cholo Shah MD at OR [facility] Right: Knee ROSALIA : ORTHOPAEDICS 06/30/2027 6481-2-120 / / [id number] Restrictors Med Cmnt J744-7393 - [id number] Implanted:Qty: 1 on 03/03/2023 by Cholo Shah MD at OR [facility] Right: Knee ROSALIA : ORTHOPAEDICS 11/18/2027 L474-7871 / / Cement Bone Full Mix Surg Simp - [id number] Implanted:Qty: 1 on 03/03/2023 by Cholo Shah MD at OR [facility] Right: Knee ROSALIA : ORTHOPAEDICS 07/09/2025 6191-1-010 / / [id number] Cement Bone Full Mix Surg Simp - [id number] Implanted:Qty: 1 on 03/03/2023 by Cholo Shah MD at OR [facility] Right: Knee ROSALIA : ORTHOPAEDICS 06/08/2025 6191-1-010 / / [id number] Cement Bone Full Mix Surg Simp - [id number] Implanted:Qty: 1 on 03/03/2023 by Cholo Shah MD at OR [facility] Right: Knee ROSALIA : ORTHOPAEDICS 05/08/2025 6191-1-010 / / [id number] Knee Fem Gmrs Dis Std R - [id number] Implanted:Qty: 1 on 03/10/2023 by Cholo Shah MD at OR [facility] Right: Knee ROSALIA : ORTHOPAEDICS 10/21/2027 6495-2-040 / / [id number] Knee Hrhk Mod Rot Hng Bushing - [id number] Implanted:Qty: 1 on 03/10/2023 by Cholo Shah MD at OR [facility] Right: Knee ROSALIA : ORTHOPAEDICS 01/29/2027 6481-2-110 / / [id number] Knee Axle Hrhk Rot Mod Hng - [id number] Implanted:Qty: 1 on 03/10/2023 by Cholo Shah MD at OR [facility] Right: Knee ROSALIA : ORTHOPAEDICS 09/15/2027 6481-2-120 / / [id number] Tib Mrh Cross Bear Long Xs/Xl - [id number] Implanted:Qty: 1 on 03/10/2023 by Cholo Shah MD at OR [facility] Right: Knee ROSALIA : ORTHOPAEDICS 09/30/2027 6481-2-103 / / [id number] Knee Hrhk Mod Rot Hng Bushing - [id number] Implanted:Qty: 1 on 03/10/2023 by Cholo Shah MD at OR [facility] Right: Knee ROSALIA : ORTHOPAEDICS 04/24/2027 6481-2-110 / / [id number] Knee Tib Bumper Issac Montes - [id number] Implanted:Qty: 1 on 03/10/2023 by Cholo Shah MD at OR [facility] Right: Knee ROSALIA : ORTHOPAEDICS 10/15/2027 6481-2-130 / / [id number] documented as of this encounter Advance Directives Documents on File Type Date Recorded Patient Banana Room Cutter Expl 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 Care Teams Pollution Control Chemist Relationship Specialty Start Date End Date Kat Hawthorne DO [address] [place] [facility] [address] PCP - General Family Medicine 08/20/22 documented as of this encounter
--- OUTSIDE RECORDS SUMMARY | 2024-04-16 12:33 | External Medical Summary | Summary of Care ---
Author Name Unknown Organization [facility] Address [address] [place] [address] Phone [phone] Care Team Providers Care Teacher Nursery [employer] Name Role Phone Kat Hawthorne DO Primary Care Provider [phone] Reason for Visit * Reason Comments Outpatient Testing Encounter Details Date Type Department Care Team ([facility] st Contact Info) Description 03/21/2024 12:20 PM EDT Laboratory Laboratory, [place] [address] [place] [address] [place], [facility] [address] [place] [address] Prediabetes; Chronic kidney disease, unspecified CKD stage; Anemia in other chronic diseases classified elsewhere Allergies Active Allergy Reactions Criticality Noted Date [...] Active oxygen IN GASIndications:ILD (interstitial lung disease) ([facility]),Chronic respiratory failure with hypoxia ([facility]) Use 2 LPM with exertion and 3 LPM with sleep. Needs small portable tanks, standing concentrator DME: [facility] 1 Each 0 07/02/2022 Active Proventil HFA 108 (90 Base) MCG/ACT Inhalation Aerosol SolutionIndications: ILD (interstitial lung disease) ([facility]) Inhale by mouth 2 Puffs every [...] mouth in the morning. 0 Active Nystatin 530134 UNIT/GM External Powder (Nystop) Apply topically to [...] & Plan: S/P wound vac placement at [facility] On doxycycline 100 mg [...] History - s/p surgery & treatment per DESIGN DRAFTER note on 11/18/23 Ca 125: 68.8 U/mL [...] pur e alcohol) PHQ-2 Answer Date Recorded PHQ-2 Score 2 09/11/2020 Hunger Vital Sign Answer Date Recorded Within the past 12 months, y ou worried that your food would run out before you got the money to buy more. Never true 02/16/20 24 Within the past 12 months, t he food you bought just didn't last and you didn't have money to get more. Never true 02/16/2024 Sex and Gender Information Value Date Recorded [...] Description 03/25/2024 3:00 PM EDT [facility] Visit [facility] [address] [facility] [place] [address] Sachin Pena PA-C [address] [place] [address] 04/18/2024 10:45 AM EDT Hospital Encounter ENDO [facility], Endoscopy Suite, HFAM 1, [address] [place] [address] Fish Ahmadi MD [address], [place] [address] 04/18/2024 10:45 AM EDT - 04/18/2024 12:30 PM EDT Surgery ENDO [facility], Endoscopy Suite, HFAM 1, [address] [place] [address] Fish Ahmadi MD [address], [place] [address] ESOPHAGOGASTRODUODENOSCOPY (EGD), FLEXIBLE, TRANSORAL, ENDOSCOPIC ULTRASOUND 05/05/2024 10:30 AM EDT Office Visit [facility] [address] [place], [place] [phone] Cholo Shah MD [address] [place], [place] [address] 05/10/2024 10:30 AM EDT Office Visit Gynecology/[place]col [place] [address] [place], [place] [address] Jeanie Gunter PA-C [address] [place] [address] 08/29/2024 11:00 AM EDT Office Visit Cardiology, [facility] [address] [place] [address] Shilpi Bailey PA-C [address] [place] [address] 10/07/2024 11:50 AM EST Office Visit [facility] [address] [place] [phone] Kat Hawthorne [address] [place] [address] Pending Results Name Type Priority Associated Diagnoses Date /Time HEMOGLOBIN A1C Lab Routine Prediabetes 03/21/2024 12:19 PM EDT PHOSPHORUS Lab Routine Chronic kidney disease, unspecified CKD stage 03/21/2024 12:19 PM EDT CBC Lab Routine Anemia in other chronic diseases classified elsewhere 03/21/2024 12:19 PM EDT BASIC METABOLIC PANEL Lab Routine Anemia in other chronic diseases classified elsewhere 03/21/2024 12:19 PM EDT IRON SCREEN, INCLUDING TIBC Lab Routine Anemia in other chronic diseases classified elsewhere 03/21/2024 12:19 PM EDT Scheduled Procedures Name Priority Associated Diagnoses Date/Ti [...] Additional history exists CKD PHOS USE SMARTSET 45535 03/16/2024 05/0 06/2023, 03/15/2023, 03/14/2023, Additional history exists GFR 08/16/2024 02/15/2024, 11/11, 09/17/2023, Additional history exists Mammogram 12/09/2024 12/09/2023, 04/10, 03/07/2021, Additional history exists CKD HGB USE SMARTSET 52978 02/14/202502/14, 02/15/2024, 12/09/2023, Additional history exists Depression [...] this encounter Medical Devices Implanted Type Area Soil Conservation Technician Device Identifier Shelf Expiration Date Model / Serial / Lot Cement Bone Simplex Hv & G - [id number] Implanted:Qty: 2 on 01/05/2023 by Harley Nguyen DO at OR [facility] Left: Knee ROSALIA : ORTHOPAEDICS 06/08/2024 6195-1-010 / / [id number] Component Femoral Size 5 - [id number] Implanted:Qty: 1 on 01/05/2023 by Harley Nguyen DO at OR [facility] Left: Knee ROSALIA : ORTHOPAEDICS 08/09/2026 5510-F-501 / / [id number] Knee Tria Syetric X3 10x36 - [id number] Implanted:Qty: 1 on 01/05/2023 by Harley Nguyen DO at OR [facility] Left: Knee ROSALIA : ORTHOPAEDICS 09/24/2027 5550-G-360 -E / / [id number] Baseplate Tib 5 Knee - [id number] Implanted:Qty: 1 on 01/05/2023 by Harley Nguyen DO at OR [facility] Left: Knee ROSALIA : ORTHOPAEDICS 12/14/2027 5521-B-500 / / [id number] Knee X3 Ins Pos Cs Sz5 9 - [id number] Implanted:Qty: 1 on 01/05/2023 by Harley Nguyen DO at OR [facility] Left: Knee ROSALIA : ORTHOPAEDICS 11/19/2027 5531-G-509 -E / / [id number] Cement Bone Full Mix Surg Simp - [id number] Implanted:Qty: 1 on 03/03/2023 by Cholo Shah MD at OR [facility] Right: Knee ROSALIA : ORTHOPAEDICS 05/08/2025 6191-1-010 / / [id number] Knee Tib Comp Poly Krh 8 Lg - [id number] Implanted:Qty: 1 on 03/03/2023 by Cholo Shah MD at OR [facility] Right: Knee ROSALIA : ORTHOPAEDICS 07/19/2023 6485-2-308 / / [id number] Knee Hrhk Mod Rot Hng Bushing - [id number] Implanted:Qty: 1 on 03/03/2023 by Cholo Shah MD at OR [facility] Right: Knee ROSALIA : ORTHOPAEDICS 01/09/2027 6481-2-110 / / [id number] Knee Hrhk Mod Rot Hng Bushing - [id number] Implanted:Qty: 1 on 03/03/2023 by Cholo Shah MD at OR [facility] Right: Knee ROSALIA : ORTHOPAEDICS 11/21/2026 6481-2-110 / / [id number] Knee Stem Crv Mod Mrs 30k617 - [id number] Implanted:Qty: 1 on 03/03/2023 by Cholo Shah MD at OR [facility] Right: Knee ROSALIA : ORTHOPAEDICS 10/02/2026 6485-3-715 / / [id number] Tib Mrh Cross Bear Long Xs/Xl - [id number] Implanted:Qty: 1 on 03/03/2023 by Cholo Shah MD at OR [facility] Right: Knee ROSALIA : ORTHOPAEDICS 12/05/2025 6481-2-103 / / [id number] Knee Tib Bumper Rot Hng Nue - [id number] Implanted:Qty: 1 on 03/03/2023 by Cholo Shah MD at OR [facility] Right: Knee ROSALIA : ORTHOPAEDICS 07/15/2027 6481-2-130 / / [id number] Distal Femoral Component Implanted:Qty: 1 on 03/03/2023 by Cholo Shah MD at OR [facility] Right: Knee ROSALIA : ORTHOPAEDICS 08/23/2023 6495-2-040 / / [id number] Knee Axle Hrhk Rot Mod Hng - [id number] Implanted:Qty: 1 on 03/03/2023 by Cholo Shah MD at OR [facility] Right: Knee ROSALIA : ORTHOPAEDICS 06/30/2027 6481-2-120 / / [id number] Restrictors [facility] I703-7610 - [id number] Implanted:Qty: 1 on 03/03/2023 by Cholo Shah MD at OR [facility] Right: Knee ROSALIA : ORTHOPAEDICS 11/18/2027 M002-6221 / / Cement Bone Full Mix Surg Simp - [id number] Implanted:Qty: 1 on 03/03/2023 by Cholo Shah MD at OR [facility] Right: Knee ROSALIA : ORTHOPAEDICS 07/09/2025 6191-1-010 / / [id number] Cement Bone Full Mix Surg Simp - [id number] Implanted:Qty: 1 on 03/03/2023 by Cholo Shah MD at OR [facility] Right: Knee ROSALIA : ORTHOPAEDICS 06/08/2025 6191-1-010 / / [id number] Cement Bone Full Mix Surg Simp - [id number] Implanted:Qty: 1 on 03/03/2023 by Cholo Shah MD at OR [facility] Right: Knee ROSALIA : ORTHOPAEDICS 05/08/2025 6191-1-010 / / [id number] Knee Fem Gmrs Dis Std R - [id number] Implanted:Qty: 1 on 03/10/2023 by Cholo Shah MD at OR [facility] Right: Knee ROSALIA : ORTHOPAEDICS 10/21/2027 6495-2-040 / / [id number] Knee Hrhk Mod Rot Hng Bushing - [id number] Implanted:Qty: 1 on 03/10/2023 by Cholo Shah MD at OR [facility] Right: Knee ROSALIA : ORTHOPAEDICS 01/29/2027 6481-2-110 / / [id number] Knee Axle Hrhk Rot Mod Hng - [id number] Implanted:Qty: 1 on 03/10/2023 by Cholo Shah MD at OR [facility] Right: Knee ROSALIA : ORTHOPAEDICS 09/15/2027 6481-2-120 / / [id number] Tib Mrh Cross Bear Long Xs/Xl - [id number] Implanted:Qty: 1 on 03/10/2023 by Cholo Shah MD at OR [facility] Right: Knee ROSALIA : ORTHOPAEDICS 09/30/2027 6481-2-103 / / [id number] Knee Hrhk Mod Rot Hng Bushing - [id number] Implanted:Qty: 1 on 03/10/2023 by Cholo Shah MD at OR [facility] Right: Knee ROSALIA : ORTHOPAEDICS 04/24/2027 6481-2-110 / / [id number] Knee Tib Bumper Rot Hng Nue - [id number] Implanted:Qty: 1 on 03/10/2023 by Cholo Shah MD at OR [facility] Right: Knee ROSALIA : ORTHOPAEDICS 10/15/2027 6481-2-130 / / [id number] documented as of this encounter Visit Diagnoses Diagnosis Prediabetes Other abnormal glucose Chronic kidney disease, unspecified CKD stage Anemia in other chronic diseases classified elsewhere Choledocholithiasis Calculus of bile duct without mention of cholecystitis or obstruction documented in this encounter Advance Directives Documents on File Type Date Recorded Patient Runstitching Machine Operator Expl 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 Care Teams Teacher Nursery [employer] Relationship Specialty Start Date End Date Kta Hawthorne DO [address] [facility] [place] [address] PCP - General Family Medicine 08/20/22 documented as of this encounter
--- OUTSIDE RECORDS SUMMARY | 2024-04-16 12:33 | External Medical Summary | Summary of Care ---
Author Name Unknown Organization [facility] Address [address] [place] [address] Phone [phone] Care Team Providers Care Cadd Operator Name Role Phone Antonia Hawthorne DO Primary Care Provider [phone] Reason for Visit * Reason Comments eRx-Medication Refill Encounter Details Date Type Department Care Team (Late st Contact Info) Description 03/20/2024 Refill [facility] [address] [place] [address] Antonia Hawthorne DO [address] [place] [address] Pruritus Allergies Active Allergy Reactions Criticality Noted Date [...] 0 Active Folic Acid 1 MG Oral TabletIndications: Anemia, unspecified type Take 1 tablet by mouth once daily 90 Tablet 3 2 Active Docusate Sodium 100 MG Oral Capsule Take 1 Capsule by mouth in the morning and 1 Capsule before bedtime. 0 Active Loratadine 10 MG Oral Tablet (Claritin) Take by mouth 1 Tablet in the morning. 34 Tablet 5 2 Active oxygen IN GASIndications:ILD (interstitial lung disease) ([facility]),Chronic respiratory failure with hypoxia ([facility]) Use 2 LPM with exertion and 3 LPM with sleep. Needs small portable tanks, standing concentrator DME: [facility] 1 Each 0 2 Active Proventil HFA 108 (90 Base) MCG/ACT Inhalation Aerosol SolutionIndication s:ILD (interstitial lung disease) ([facility]) Inhale by mouth 2 Puffs every 4 hours as needed for Wheezing. 6.7 g 3 2 Active Sertraline HCl 100 MG Oral Tablet (Zoloft)Indication s:Depression with anxiety Take 1 Tablet by mouth in the morning. 90 Tablet 3 3 Active SF 5000 Plus 1.1 % Dental Cream APPLY A THIN LAYER TO TOOTHBRUSH AND BRUSH ONCE DAILY FOR 2 MINUTES, SPIT OUT, DO NOT RINSE 0 3 Active Gabapentin 300 MG Oral Capsule [...] mouth in the morning. 0 Active Nystatin 959323 UNIT/GM External Powder (Nystop) Apply topically to affected area 3 times a day. 60 g 5 3 Active Sotalol HCl 80 MG Oral Tablet (Betapace) Take 1 Tablet by mouth in the morning and 1 Tablet before bedtime. 180 Tablet 3 3 Active Ipratropium-Albute rol 0.5-2.5 (3) MG/3ML Inhalation Solution Inhale 3 [...] 3 Active Hydrocortisone (Perianal) 2.5 % External CreamIndications:H emorrhoids, external without complications Administer into the rectum 2 times a day. 28 g 1 3 Active predniSONE 20 MG Oral Tablet (Deltasone) Take 3 tablet daily for 1 month, 2.5 tablets daily for 1 month, 2 tablets daily for 1 month, then 1.5 tablets daily until next visit, every morning with food, as instructed. 300 Tablet 0 3 Active Sulfamethoxazole-T rimethoprim 800-160 MG Oral Tablet (Bactrim DS) Take 1 Tablet by mouth once a day on Thursday, Thursday, and Thursday only. until gone. 15 Tablet 3 3 Active Additional Information Patient not taking.Reported on 03/21/2024 amLODIPine Besylate 5 MG Oral Tablet (Norvasc) Take 1 Tablet by mouth in the morning. 90 Tablet 1 4 Active Fosfomycin Tromethamine 3 GM Oral Packet (Monurol)Indicatio ns:Recurrent UTI Take 3 g by mouth once a week. 12 Packet 2 4 10/05/20 24 Active Cyclobenzaprine HCl 5 MG Oral Tablet (Flexeril)Indicati ons:Generalized osteoarthritis Take 1 tablet by mouth twice daily as needed for muscle spasm 60 Tablet 2 4 Active LORazepam 0.5 MG Oral Tablet (Ativan)Indication s:BILLY (generalized anxiety disorder) Take 1 Tablet by mouth every 8 hours as needed for Anxiety. 60 Tablet 0 4 Active Bumetanide 2 MG Oral Tablet TAKE 1 TABLET BY MOUTH TWICE DAILY (IN THE MORNING AND AT NOON) 60 Tablet 5 4 Active hydrOXYzine HCl 25 MG Oral TabletIndications: Pruritus TAKE 1 TABLET BY MOUTH AT BEDTIME NEEDED FOR ITCHING 30 Tablet 3 4 Active hydrOXYzine HCl 25 MG Oral TabletIndications: Pruritus TAKE 1 TABLET BY MOUTH AT BEDTIME NEEDED FOR ITCHING 30 Tablet 3 4 03/22/20 24 Discontinued documented as of this encounter (statuses as [...] & Plan: S/P wound vac placement at [facility] On doxycycline 100 mg BID x 14 days Old [place] (myocardial infarction) 04/14/2023 Hyperlipidemia 04/14/2023 Hereditary hemolytic [...] History - s/p surgery & treatment per SHANK MAKER note on 11/18/23 Ca 125: 68.8 U/mL [...] mRNA, LNP-s, No Pre serve, 2-Dose Series ([place]) 08/23/2021,01/26/2021,01/05/2021 Pneumococcal Conjugate Vacc, 13 Valent (Prevnar) [...] encounter Miscellaneous Notes * Telephone Encounter - Anyi Garrido RPh - 03/22/2024 8:29 AM EDTSigned Prescriptions: Disp Refills hydrOXYzine HCl 25 MG Oral Tablet 30 Tab*3 Sig: TAKE 1 TABLET BYMOUTH AT BEDTIME NEEDED FOR ITCHINGAuthorizing Provider: ANTONIA HAWTHORNE User: ANYI GARRIDO documented in this encounter Plan of Treatment Upcoming Encounters Date Type Department Care Team (Latest Contact Info) Description 03/25/2024 3:00 PM EDT Home Visit [facility] [address] [address] Sachin Pena PA-C [address] [address] 04/18/2024 10:45 AM EDT Hospital Encounter ENDO [facility], Endoscopy Suite[facility] [address] [address] [facility] [address] Fish Ahmadi MD [address] [place] [address] 04/18/2024 10:45 AM EDT - 04/18/2024 12:30 PM EDT Surgery ENDO [facility], Endoscopy Suite, HFAM 1, [address] [place] [address] Fish Ahmadi MD [address] [place], [place] [id number] ESOPHAGOGASTRODUODENOSCOPY (EGD), FLEXIBLE, TRANSORAL, ENDOSCOPIC ULTRASOUND 05/05/2024 10:30 AM EDT Office Visit Orthopaedics, [place] [address] [place] [address] Cholo Shah MD [address] [place] [address] 05/10/2024 10:30 AM EDT Office Visit Gynecology/Oncol ogy, [place] [address] [place] [address] Jeanie Gunter PA-C [address] [place] [address], [place] [phone] 08/29/2024 11:00 AM EDT Office Visit [facility], [facility] [address] [facility] [address] Shilpi Bailey [facility]-C [address] [facility] [address] 10/07/2024 11:50 AM EST Office Visit [place] [address] [place] [phone] Antonia Hawthorne DO [address] [place] [address] Scheduled Procedures Name Priority Associated Diagnoses Date/Ti [...] Additional history exists CKD HGB USE SMARTSET 88157 03/21/202503/21, 02/15/2024, 02/15/2024, Additional history exists CKD PHOS USE SMARTSET 46010 03/21/202503/09, 03/16/2023, 03/15/2023, Additional history exists Depression [...] this encounter Medical Devices Implanted Type Area Ceramics Test Engineer Device Identifier Shelf Expiration Date Model / Serial / Lot Cement Bone Simplex Hv & G - [id number] Implanted:Qty: 2 on 01/05/2023 by Harley Nguyen DO at OR [facility] Left: Knee ROSALIA : ORTHOPAEDICS 06/08/2024 6195-1-010 / / [id number] Femoral Size 5 - [id number] Implanted:Qty: 1 on 01/05/2023 by Harley Nguyen DO at OR [facility] Left: Knee ROSALIA : ORTHOPAEDICS 08/09/2026 5510-F-501 / / [id number] Knee Tria Syetric X3 10x36 - [id number] Implanted:Qty: 1 on 01/05/2023 by Harley Nguyen DO at OR [facility] Left: Knee ROSALIA : ORTHOPAEDICS 09/24/2027 5550-G-360 -E / / [id number] Baseplate Tib 5 Knee - [id number] Implanted:Qty: 1 on 01/05/2023 by Hraley Nguyen DO at OR [facility] Left: Knee ROSALIA : ORTHOPAEDICS 12/14/2027 5521-B-500 / / [id number] Knee X3 Ins Pos Cs Sz5 9 - [id number] Implanted:Qty: 1 on 01/05/2023 by Harley Nguyen DO at OR [facility] Left: Knee ROSALIA : ORTHOPAEDICS 11/19/2027 5531-G-509 -E / / [id number] Cement Bone Full Mix Surg Simp - [id number] Implanted:Qty: 1 on 03/03/2023 by Cholo Shah MD at OR [facility] Right: Knee ROSALIA : ORTHOPAEDICS 05/08/2025 6191-1-010 / / [id number] Knee Tib Comp Poly Krh 8 Lg - [id number] Implanted:Qty: 1 on 03/03/2023 by Cholo Shah MD at OR [facility] Right: Knee ROSALIA : ORTHOPAEDICS 07/19/2023 6485-2-308 / / [id number] Knee Hrhk Mod Rot Hng Bushing - [id number] Implanted:Qty: 1 on 03/03/2023 by Cholo Shah MD at OR [facility] Right: Knee ROSALIA : ORTHOPAEDICS 01/09/2027 6481-2-110 / / [id number] Knee Hrhk Mod Rot Hng Bushing - [id number] Implanted:Qty: 1 on 03/03/2023 by Cholo Shah MD at OR [facility] Right: Knee ROSALIA : ORTHOPAEDICS 11/21/2026 6481-2-110 / / [id number] Knee Stem Crv Mod Mrs 73u490 - [id number] Implanted:Qty: 1 on 03/03/2023 by Cholo Shah MD at OR [facility] Right: Knee ROSALIA : ORTHOPAEDICS 10/02/2026 6485-3-715 / / [id number] Tib Mrh Cross Bear Long Xs/Xl - [id number] Implanted:Qty: 1 on 03/03/2023 by Cholo Shah MD at OR [facility] Right: Knee ROSALIA : ORTHOPAEDICS 12/05/2025 6481-2-103 / / [id number] Knee Tib Bumper Rot Hng Nue - [id number] Implanted:Qty: 1 on 03/03/2023 by Cholo Shah MD at OR [facility] Right: Knee ROSALIA : ORTHOPAEDICS 07/15/2027 6481-2-130 / / [id number] Distal Femoral Component Implanted:Qty: 1 on 03/03/2023 by Cholo Shah MD at OR [facility] Right: Knee ROSALIA : ORTHOPAEDICS 08/23/2023 6495-2-040 / / [id number] Knee Axle Hrhk Rot Mod Hng - [id number] Implanted:Qty: 1 on 03/03/2023 by Cholo Shah MD at OR [facility] Right: Knee ROSALIA : ORTHOPAEDICS 06/30/2027 6481-2-120 / / [id number] Restrictors Med Cmnt K452-8882 - [id number] Implanted:Qty: 1 on 03/03/2023 by Cholo Shah MD at OR [facility] Right: Knee ROSALIA : ORTHOPAEDICS 11/18/2027 T900-8709 / / Cement Bone Full Mix Surg Simp - [id number] Implanted:Qty: 1 on 03/03/2023 by Cholo Shah MD at OR [facility] Right: Knee ROS[employer]IA : ORTHOPAEDICS 07/09/2025 6191-1-010 / / [id number] Cement Bone Full Mix Surg Simp - [id number] Implanted:Qty: 1 on 03/03/2023 by Cholo Shah MD at OR [facility] Right: Knee ROS[employer]IA : ORTHOPAEDICS 06/08/2025 6191-1-010 / / [id number] Cement Bone Full Mix Surg Simp - [id number] Implanted:Qty: 1 on 03/03/2023 by Cholo Shah MD at OR [facility] Right: Knee ROSALIA : ORTHOPAEDICS 05/08/2025 6191-1-010 / / [id number] Knee Fem Gmrs Dis Std R - [id number] Implanted:Qty: 1 on 03/10/2023 by Cholo Shah MD at OR [facility] Right: Knee ROSALIA : ORTHOPAEDICS 10/21/2027 6495-2-040 / / [id number] Knee Hrhk Mod Rot Hng Bushing - [id number] Implanted:Qty: 1 on 03/10/2023 by Cholo Shah MD at OR [facility] Right: Knee ROSALIA : ORTHOPAEDICS 01/29/2027 6481-2-110 / / [id number] Knee Axle Hrhk Rot Mod Hng - [id number] Implanted:Qty: 1 on 03/10/2023 by Cholo Shah MD at OR [facility] Right: Knee ROSALIA : ORTHOPAEDICS 09/15/2027 6481-2-120 / / [id number] Tib Mrh Cross Bear Long Xs/Xl - [id number] Implanted:Qty: 1 on 03/10/2023 by Cholo Shah MD at OR [facility] Right: Knee ROSALIA : ORTHOPAEDICS 09/30/2027 6481-2-103 / / [id number] Knee Hrhk Mod Rot Hng Bushing - [id number] Implanted:Qty: 1 on 03/10/2023 by Cholo Shah MD at OR [facility] Right: Knee ROSALIA : ORTHOPAEDICS 04/24/2027 6481-2-110 / / [id number] Knee Tib Bumper Rot Hng Nue - [id number] Implanted:Qty: 1 on 03/10/2023 by Cholo Shah MD at OR [facility] Right: Knee ROSALIA : ORTHOPAEDICS 10/15/2027 6481-2-130 / / [id number] documented as of this encounter Visit Diagnoses Diagnosis Pruritus Unspecified pruritic disorder Choledocholithiasis Calculus of bile duct without mention of cholecystitis or obstruction documented in this encounter Advance Directives Documents on File Type Date Recorded Patient Caser Up Expl 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 Care Teams Cadd Operator Relationship Specialty Start Date End Date Antonia Hawthorne DO [address] [address] PCP - General Family Medicine 08/20/22 documented as of this encounter
--- OUTSIDE RECORDS SUMMARY | 2024-04-16 12:34 | External Medical Summary | Summary of Care ---
Author Name Unknown Organization [facility] Address [address] [place] [facility] [place] [facility] [place] [address] Phone [phone] Care Team Providers Care Flat Finisher Name Role Phone Kat Hawthorne DO Primary Care Provider [phone] Reason for Visit * Reason Onset Date Comments [facility]: Maintenance 03/21/2024 Encounter Details Date Type Department Care Team (Late st Contact Info) Description 03/21/2024 Telephone [facility], [facility] [address] [facility] [address] [address] [facility], Nurse [facility] [address] [facility] [address] [place] [address] [facility]: Maintenance Allergies Active Allergy [...] Active oxygen IN GASIndications:ILD (interstitial lung disease) ([facility]),Chronic respiratory failure with hypoxia ([facility]) Use 2 LPM with exertion and 3 LPM with sleep. Needs small portable tanks, standing concentrator DME: [facility] 1 Each 0 07/02/2022 Active Proventil HFA 108 (90 Base) MCG/ACT Inhalation Aerosol SolutionIndications: ILD (interstitial lung disease) ([facility]) Inhale by mouth 2 [...] mouth in the morning. 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.] Problem Noted Date Diagnosed Date Resolved Date Closed fracture of right fem ur with [...] History - s/p surgery & treatment per RENTAL SALES ASSOCIATE note on 11/18/23 Ca 125: [...] encounter Miscellaneous Notes * Telephone Encounter - Prema Daniels LPN - 03/21/2024 10:49 AM EDT Call to patient to schedule hospital JACOB Per RNCM could see patient Thursday at 10 am however patient has pulmonary appointment at 1030 which will not work. Scheduled for Thursday at 3 pm with Sachin Pena. Message left for patient to return call to [facility] for appointment date and time Prema Daniels LPN [facility] 03/21/2024,10:49 AM documented in this encounter Plan of Treatment Upcoming Encounters Date Type Department Care Team (Latest Contact Info) Description 03/25/2024 3:00 PM EDT [facility] [address] [facility] [address] [address] Sachin Pena PA-C [address] [address] 03/30/2024 12:10 PM EDT Office Visit [facility] [address] [place] [phone] Kat Hawthorne DO [address] [place] [address] 04/18/2024 10:45 AM EDT Hospital Encounter [facility], Endoscopy Suite, AM 1, [address] [place] [address] Fish Ahmadi MD [address] [place] [facility] [place] [address] 04/18/2024 10:45 AM EDT - 04/18/2024 12:30 PM EDT Surgery [facility]O [facility], Endoscopy Suite, HFAM 1, [address] [place] [address] Fish Ahmadi MD [address] [place], [place] [phone] ESOPHAGOGASTRODUODENOSCOPY (EGD), FLEXIBLE, TRANSORAL, ENDOSCOPIC ULTRASOUND 05/05/2024 10:30 AM EDT Office Visit Orthopaedics, [place] [address] [place], [place] [phone] Cholo Shah MD [address] [place] [address] 05/10/2024 10:30 AM EDT Office Visit Gynecology/Oncol ogy, [place] [address] [place] [address] Jeanie Gunter PA-C [address] [place], [place] [address] 08/29/2024 11:00 AM EDT Office Visit Cardiology, [facility] [address] [place] [address] Shilpi Bailey PA-C [address] [facility] [address] Scheduled Procedures Name Priority Associated Diagnoses Date/Ti [...] Additional history exists CKD PHOS USE SMARTSET 20038 03/16/2024 05/0 06/2023, 03/15/2023, 03/14/2023, Additional history exists GFR 08/16/2024 02/15/2024, 11/11, 09/17/2023, Additional history exists Mammogram 12/09/2024 12/09/2023, 04/10, 03/07/2021, Additional history exists CKD HGB USE SMARTSET 48666 02/14/202502/14, 02/15/2024, 12/09/2023, Additional history exists O2 ASSESSMENT COMPLETED IN PAST YEAR FOR COPD 03/08/2025 03/08/2024 Depression Screening 03/21/2025 03/21/2024, 09/11/20 20 Lipid Panel 09/03/2027 09/03/2022, 09/09, 08/02/2019, Additional [...] this encounter Medical Devices Implanted Type Area Editor Continuity And Script Device Identifier Shelf Expiration Date Model / Serial / Lot Cement Bone Simplex Hv & G - [id number] Implanted:Qty: 2 on 01/05/2023 by Harley Nguyen, at OR [facility] Left: Knee ROSALIA : ORTHOPAEDICS 06/08/2024 6195-1-010 / / [id number] Component Femoral Size 5 - [id number] Implanted:Qty: 1 on 01/05/2023 by Harley Nguyen, at OR [facility] Left: Knee ROSALIA : ORTHOPAEDICS 08/09/2026 5510-F-501 / / [id number] Knee Tria Syetric X3 10x36 - [id number] Implanted:Qty: 1 on 01/05/2023 by Harley Nguyen DO at OR [facility] Left: Knee ROSALIA : ORTHOPAEDICS 09/24/2027 5550-G-360 -E / / [id number] Baseplate Tib 5 Knee - [id number] Implanted:Qty: 1 on 01/05/2023 by Harley Nguyen DO at OR [facility] Left: Knee ROSALIA : ORTHOPAEDICS 12/14/2027 5521-B-500 / / [id number] Knee X3 Ins Pos Cs Sz5 9 - [id number] Implanted:Qty: 1 on 01/05/2023 by Harley Nguyen DO at OR [facility] Left: Knee ROSALIA : ORTHOPAEDICS 11/19/2027 5531-G-509 -E / / [id number] Cement Bone Full Mix Surg Simp - [id number] Implanted:Qty: 1 on 03/03/2023 by Cholo Shah MD at [place] [facility] Right: Knee ROSALIA : ORTHOPAEDICS 05/08/2025 6191-1-010 / / [id number] Knee Tib Comp Poly Krh 8 Lg - [id number] Implanted:Qty: 1 on 03/03/2023 by Cholo Shah MD at [place] [facility] Right: Knee ROSALIA : ORTHOPAEDICS 07/19/2023 6485-2-308 / / [id number] Knee Hrhk Mod Rot Hng Bushing - [id number] Implanted:Qty: 1 on 03/03/2023 by Cholo Shah MD at [place] [facility] Right: Knee ROSALIA : ORTHOPAEDICS 01/09/2027 6481-2-110 / / [id number] Knee Hrhk Mod Rot Hng Bushing - [id number] Implanted:Qty: 1 on 03/03/2023 by Cholo Shah MD at [place] [facility] Right: Knee ROSALIA : ORTHOPAEDICS 11/21/2026 6481-2-110 / / [id number] Knee Stem Crv Mod Mrs 32d125 - [id number] Implanted:Qty: 1 on 03/03/2023 by Cholo Shah MD at [place] [facility] Right: Knee ROSALIA : ORTHOPAEDICS 10/02/2026 6485-3-715 / / [id number] Tib Mrh Cross Bear Long Xs/Xl - [id number] Implanted:Qty: 1 on 03/03/2023 by Cholo Shah MD at [place] [facility] Right: Knee ROSALIA : ORTHOPAEDICS 12/05/2025 6481-2-103 / / [id number] Knee Tib Bumper Rot Hng Nue - [id number] Implanted:Qty: 1 on 03/03/2023 by Cholo Shah MD at [place] [facility] Right: Knee ROSALIA : ORTHOPAEDICS 07/15/2027 6481-2-130 / / [id number] Distal Femoral Component Implanted:Qty: 1 on 03/03/2023 by Cholo Shah MD at [place] [facility] Right: Knee ROSALIA : ORTHOPAEDICS 08/23/2023 6495-2-040 / / [id number] Knee Axle Hrhk Rot Mod Hng - [id number] Implanted:Qty: 1 on 03/03/2023 by Cholo Shah MD at [place] [facility] Right: Knee ROSALIA : ORTHOPAEDICS 06/30/2027 6481-2-120 / / [id number] Restrictors Med Cmnt Q461-8766 - [id number] Implanted:Qty: 1 on 03/03/2023 by Cholo Shah MD at [place] [facility] Right: Knee ROSALIA : ORTHOPAEDICS 11/18/2027 P527-1395 / / Cement Bone Full Mix Surg Simp - [id number] Implanted:Qty: 1 on 03/03/2023 by Cholo Shah MD at [place] [facility] Right: Knee ROSALIA : ORTHOPAEDICS 07/09/2025 6191-1-010 / / [id number] Cement Bone Full Mix Surg Simp - [id number] Implanted:Qty: 1 on 03/03/2023 by Cholo Shah MD at [place] [facility] Right: Knee ROSALIA : ORTHOPAEDICS 06/08/2025 6191-1-010 / / [id number] Cement Bone Full Mix Surg Simp - [id number] Implanted:Qty: 1 on 03/03/2023 by Cholo Shah MD at [place] [facility] Right: Knee ROSALIA : ORTHOPAEDICS 05/08/2025 6191-1-010 / / [id number] Knee Fem Gmrs Dis Std R - [id number] Implanted:Qty: 1 on 03/10/2023 by Cholo Shah MD at [place] [facility] Right: Knee ROSALIA : ORTHOPAEDICS 10/21/2027 6495-2-040 / / [id number] Knee Hrhk Mod Rot Hng Bushing - [id number] Implanted:Qty: 1 on 03/10/2023 by Cholo Shah MD at [place] [facility] Right: Knee ROSALIA : ORTHOPAEDICS 01/29/2027 6481-2-110 / / [id number] Knee Axle Hrhk Rot Mod Hng - [id number] Implanted:Qty: 1 on 03/10/2023 by Cholo Shah MD at [place] [facility] Right: Knee ROSALIA : ORTHOPAEDICS 09/15/2027 6481-2-120 / / [id number] Tib Mrh Cross Bear Long Xs/Xl - [id number] Implanted:Qty: 1 on 03/10/2023 by Cholo Shah MD at [place] [facility] Right: Knee ROSALIA : ORTHOPAEDICS 09/30/2027 6481-2-103 / / [id number] Knee Hrhk Mod Rot Hng Bushing - [id number] Implanted:Qty: 1 on 03/10/2023 by Cholo Shah MD at [place] [facility] Right: Knee ROSALIA : ORTHOPAEDICS 04/24/2027 6481-2-110 / / [id number] Knee Tib Bumper Rot Hng Nue - [id number] Implanted:Qty: 1 on 03/10/2023 by Cholo Shah MD at [place] [facility] Right: Knee ROSALIA : ORTHOPAEDICS 10/15/2027 6481-2-130 / / [id number] documented as of this encounter Advance Directives Documents on File Type Date Recorded Patient Stripping Shovel Operator Expl 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 Care Teams Flat Finisher Relationship Specialty Start Date End Date Kat Hawthorne DO [address] [address] PCP - General Family Medicine 08/20/22 documented as of this encounter
--- OUTSIDE RECORDS SUMMARY | 2024-04-16 12:34 | External Medical Summary | Summary of Care ---
Author Name Unknown Organization [facility] Address [address] [place] [address] Phone [phone] Care Team Providers Care Stem Dryer Maintainer Name Role Phone Kat Hawthorne DO Primary Care Provider [phone] Encounter Details Date Type Department Care Team (Late st Contact Info) Description 03/09/2024 9:30 AM EDT Home Visit Care Coordination and Integration [address], [place] [id number] Cinthya Weber [facility] Field Reviewer [address] [place] [address] Allergies Active Allergy Reactions Criticality Noted Date [...] as of this encounter (statuses as of 03/09/2024) Medications Medication Sig Dispensed Refills Start Date [...] Active oxygen IN GASIndications:ILD (interstitial lung disease) ([facility]),Chronic respiratory failure with hypoxia (HCC) Use 2 LPM with exertion and 3 LPM with sleep. Needs small portable tanks, standing concentrator DME: [facility] 1 Each 0 07/02/2022 Active Proventil HFA 108 (90 Base) MCG/ACT Inhalation Aerosol SolutionIndications: ILD (interstitial lung disease) ([facility]) Inhale by mouth 2 Puffs every 4 [...] mouth in the morning. 0 Active Nystatin 763090 UNIT/GM External Powder (Nystop) Apply topically to [...] until gone. 15 Tablet 3 10/23/2023 Active amLODIPine Besylate 5 MG Oral Tablet (Norvasc) [...] as of this encounter (statuses as of 03/09/2024) Active Problems Problem Noted Date Diagnosed Date [...] 100 mg BID x 14 days Old MD (myocardial infarction) 04/14/2023 Hyperlipidemia 04/14/2023 Hereditary hemolytic [...] (total abdominal hysterectomy and bilateral salpingo-oophorectomy) 09/04/2020 Ovarian cancer on left 08/09/2020 Cancer Staging:Clinical stage from 09/04/2020:FIGO Stage IC2(cT1c2, cM0) - Signed by Harjeet Li MD on 09/12/2020 Overview: Ca 125: 68.8 U/mL Ca 19-9: 79.4 CEA: 10.2 Pelvic U/S: There is a heterogenous, solid and cystic mass measuring 13.7 x 9.5 x 11.4 cm. There may be a thick septation with a polypoid intraluminal mass. Ovarian malignancy is favored over necrotic myoma. CT A/P:Generalized nodular uterus with the uterus measuring 11.3 centimeters in anterior-posterior diameter, 11.4 centimeters in transverse diameter 12.6 centimeters in craniocaudal diameter. 09/04/2020: Exploratory laparotomy, total abdominal hysterectomy, bilateral salpingo-oophorectomy and omentectomy. PAT (paroxysmal atrial tachycardia) 12/09/2019 Tachy-lakeisha syndrome [...] as of this encounter (statuses as of 03/09/2024) Resolved Problems Problem Noted Date Diagnosed Date [...] disease 09/17/2020 04/21/2023 Overview: Per CKD protocol Hypertensive kidney disease with chronic kidney disease [...] as of this encounter (statuses as of 03/09/2024) Immunizations Name Administration Dates Next Due COVID-19 mRNA, LNP-s, No Pre serve, 2-Dose Series ([employer]) 08/23/2021,01/26/2021,01/05/2021 Pneumococcal Conjugate Vacc, 13 Valent (Prevnar) [...] as of this encounter Progress Notes * Cinthya [facility] - 03/09/2024 12:35 PM EDT Telemedicine visit: No [facility] Field Reviewer (PRUDENCE) documentation: CHW hv to deliver and set up [employer] device. Transmitter was placed on windowsill in living room. Attained 3 solid blue lights. Organizational Development Director was placed in pt's bathroom per her request. Medium size band was used and place on right upper arm of pt. Instructions and demonstration provided on how to charge. Instructed not to wear in shower/tub. Pt demonstrated understanding of device. Instructed to reach out to CM if she has questions or problems. documented in this encounter Plan of Treatment Upcoming Encounters Date Type Department Care Team (Latest Contact Info) Description 03/30/2024 12:10 PM EDT Office Visit [place] [address] [place] [phone] Kat Hawthorne DO [address] [place] [address] 04/18/2024 10:45 AM EDT Hospital Encounter [facility], Endoscopy Suite, [facility], [address] [place] [address] Fish Ahmadi MD [address] [place] [address] 04/18/2024 10:45 AM EDT - 04/18/2024 12:30 PM EDT Surgery [facility], Endoscopy [address], [facility], [address] [place] [address] Fish Ahmadi MD [address] [place] [address] ESOPHAGOGASTRODUODENOSCOPY (EGD), FLEXIBLE, TRANSORAL, ENDOSCOPIC ULTRASOUND 05/05/2024 10:30 AM EDT Office Visit Orthopaedics, [place] [address] [place] [address] Cholo Shah MD [address] [place] [address] 05/10/2024 10:30 AM EDT Office Visit Gynecology/Oncol ogy, [place] [address], [place] [phone] Jeanie Gunter PA-C [address], [place] [phone] 08/29/2024 11:00 AM EDT Office Visit Cardiology, [facility] [address] [place] [address] Shilpi Bailey PA-C [address] [place] [address] Scheduled Procedures Name Priority Associated Diagnoses Date/Ti [...] Fecal Occult Blood Test 1998 Sigmoidoscopy 1998 Depression Screening 09/11/2021 09/11/2020 Albumin/Creatinine Ratio 09/04/2022 021, 01/27/2019, 12/21/2017, Additional history exists COVID-19 Vaccine ( season) 2023 08/23/2021, 08/02/2021, 01/26/2021, Additional history exists HbA1c 12/18/2023 12/18/2022, 05/09, 10/21/2016, Additional history exists O2 ASSESSMENT COMPLETED IN PAST YEAR FOR COPD 03/10/2024 03/10/2023 CKD PHOS USE SMARTSET 24543 03/16/2024 05/0 06/2023, 03/15/2023, 03/14/2023, Additional history exists GFR 08/16/2024 02/15/2024, 11/11, 09/17/2023, Additional history exists Mammogram 12/09/2024 12/09/2023, 04/10, 03/07/2021, Additional history exists CKD HGB USE SMARTSET 03590 02/14/202502/14, 02/15/2024, 12/09/2023, Additional history exists Lipid Panel 09/03/2027 09/03/2022, [...] this encounter Medical Devices Implanted Type Area Business Job Titles Device Identifier Shelf Expiration Date Model / Serial / Lot Cement Bone Simplex Hv & G - [id number] Implanted:Qty: 2 on 01/05/2023 by Harley Nguyen, at OR [facility] Left: Knee ROSALIA : ORTHOPAEDICS 06/08/2024 6195-1-010 / / [id number] Component Femoral Size 5 - [id number] Implanted:Qty: 1 on 01/05/2023 by Harley Nguyen DO at OR [facility] Left: Knee ROSALIA : ORTHOPAEDICS 08/09/2026 5510-F-501 / / [id number] Knee Tria Syetric X3 10x36 - [id number] Implanted:Qty: 1 on 01/05/2023 by Harley Nguyen DO at OR [facility] Left: Knee ROSALIA : ORTHOPAEDICS 09/24/2027 5550-G-360 -E / / [id number] Baseplate Tib 5 Knee - [id number] Implanted:Qty: 1 on 01/05/2023 by Harley Nguyen DO at OR [facility] Left: Knee ROSALIA : ORTHOPAEDICS 12/14/2027 5521-B-500 / / [id number] Knee X3 Ins Pos Cs Sz5 9 - [id number] Implanted:Qty: 1 on 01/05/2023 by Harley Nguyen DO at OR [facility] Left: Knee ROSALIA : ORTHOPAEDICS 11/19/2027 5531-G-509 -E / / [id number] Cement Bone Full Mix Surg Simp - [id number] Implanted:Qty: 1 on 03/03/2023 by Cholo Shah MD [place] [facility] [place]: Knee ROSALIA : ORTHOPAEDICS 05/08/2025 6191-1-010 / / [id number] Knee Tib Comp Poly Krh 8 Lg - [id number] Implanted:Qty: 1 on 03/03/2023 by Cholo Shah MD [place] [facility] [place]: Knee ROSALIA : ORTHOPAEDICS 07/19/2023 6485-2-308 / / [id number] Knee Hrhk Mod Rot Hng Bushing - [id number] Implanted:Qty: 1 on 03/03/2023 by Cholo Shah MD [place] [facility] [place]: Knee ROSALIA : ORTHOPAEDICS 01/09/2027 6481-2-110 / / [id number] Knee Hrhk Mod Rot Hng Bushing - [id number] Implanted:Qty: 1 on 03/03/2023 by Cholo Shah MD [place] [facility] [place]: Knee ROSALIA : ORTHOPAEDICS 11/21/2026 6481-2-110 / / [id number] Knee Stem Crv Mod Mrs 82q890 - [id number] Implanted:Qty: 1 on 03/03/2023 by Cholo Shah MD at [place] [facility] Right: Knee ROSALIA : ORTHOPAEDICS 10/02/2026 6485-3-715 / / [id number] Tib Mrh Cross Bear Long Xs/Xl - [id number] Implanted:Qty: 1 on 03/03/2023 by Cholo Shah MD at [place] [facility] Right: Knee ROSALIA : ORTHOPAEDICS 12/05/2025 6481-2-103 / / [id number] Knee Tib Bumper Rot Hng Nue - [id number] Implanted:Qty: 1 on 03/03/2023 by Cholo Shah MD at [place] [facility] Right: Knee ROSALIA : ORTHOPAEDICS 07/15/2027 6481-2-130 / / [id number] Distal Femoral Component Implanted:Qty: 1 on 03/03/2023 by Cholo Shah MD at [place] [facility] Right: Knee ROSALIA : ORTHOPAEDICS 08/23/2023 6495-2-040 / / [id number] Knee Axle Hrhk Rot Mod Hng - [id number] Implanted:Qty: 1 on 03/03/2023 by Cholo Shah MD at [place] [facility] Right: Knee ROSALIA : ORTHOPAEDICS 06/30/2027 6481-2-120 / / [id number] Restrictors Med Cmnt G517-4040 - [id number] Implanted:Qty: 1 on 03/03/2023 by Cholo Shah MD at [place] [facility] Right: Knee ROSALIA : ORTHOPAEDICS 11/18/2027 I310-3796 / / Cement Bone Full Mix Surg Simp - [id number] Implanted:Qty: 1 on 03/03/2023 by Cholo Shah MD at [place] [facility] Right: Knee ROSALIA : ORTHOPAEDICS 07/09/2025 6191-1-010 / / [id number] Cement Bone Full Mix Surg Simp - [id number] Implanted:Qty: 1 on 03/03/2023 by Cholo Shah MD at [place] [facility] Right: Knee ROSALIA : ORTHOPAEDICS 06/08/2025 6191-1-010 / / [id number] Cement Bone Full Mix Surg Simp - [id number] Implanted:Qty: 1 on 03/03/2023 by Cholo Shah MD at [place] [facility] Right: Knee ROSALIA : ORTHOPAEDICS 05/08/2025 6191-1-010 / / [id number] Knee Fem Gmrs Dis Std R - [id number] Implanted:Qty: 1 on 03/10/2023 by Cholo Shah MD at [place] [facility] Right: Knee ROSALIA : ORTHOPAEDICS 10/21/2027 6495-2-040 / / [id number] Knee Hrhk Mod Rot Hng Bushing - [id number] Implanted:Qty: 1 on 03/10/2023 by Cholo Shah MD at [place] [facility] Right: Knee ROSALIA : ORTHOPAEDICS 01/29/2027 6481-2-110 / / [id number] Knee Axle Hrhk Rot Mod Hng - [id number] Implanted:Qty: 1 on 03/10/2023 by Cholo Shah MD at [place] [facility] Right: Knee ROSALIA : ORTHOPAEDICS 09/15/2027 6481-2-120 / / [id number] Tib Mrh Cross Bear Long Xs/Xl - [id number] Implanted:Qty: 1 on 03/10/2023 by Cholo Shah MD at [place] [facility] Right: Knee ROSALIA : ORTHOPAEDICS 09/30/2027 6481-2-103 / / [id number] Knee Hrhk Mod Rot Hng Bushing - [id number] Implanted:Qty: 1 on 03/10/2023 by Cholo Shah MD at [place] [facility] Right: Knee ROSALIA : ORTHOPAEDICS 04/24/2027 6481-2-110 / / [id number] Knee Tib Bumper Rot Hng Nue - [id number] Implanted:Qty: 1 on 03/10/2023 by Cholo Shah MD at [place] [facility] Right: Knee ROSALIA : ORTHOPAEDICS 10/15/2027 6481-2-130 / / [id number] documented as of this encounter Advance Directives Documents on File Type Date Recorded Patient Assistant Prosecuting Attorney Expl 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 Care Teams Stem Dryer Maintainer Relationship Specialty Start Date End Date Kat Hawthorne DO [address] [place] [address] PCP - General Family Medicine 08/20/22 documented as of this encounter
--- OUTSIDE RECORDS SUMMARY | 2024-04-16 12:34 | External Medical Summary ---
Author Name Unknown Address Unknown Organization [id number]:[facility] [place] [address] [place] [address] Laboratory Report Ordering Provider Test Date Status ANTONIABRISA 03/21/2024 12:19:51 Final Observation Date Value Abnormality Reference (Units ) Status Iron 03/21/2024 12:19:51 77 33-151 (ug /dL) Final Iron-binding capacity 03/21/2024 12:19:51 266 250-425 (ug/dL) Final Transferrin Sat % 03/21/2024 12:19:51 29 15 -55 (%) Final Performing Location [facility] [address] [place] [address]
--- OUTSIDE RECORDS SUMMARY | 2024-04-16 12:34 | External Medical Summary ---
Author Name Unknown Address Unknown Organization K01:[facility] - [address] [place] [address] Laboratory Report Ordering Provider Test Date Status BRISA KNIGHT 03/21/2024 12:19:51 Final Observation Date Value Abnormality Reference (Units ) Status Phosphate 03/21/2024 12:19:51 3.5 2.5-4.8 (m g/dL) Final Performing Location [facility] - [address] [place] [id number]
--- OUTSIDE RECORDS SUMMARY | 2024-04-16 12:34 | External Medical Summary | Summary of Care ---
Author Name Unknown Organization [facility] Address [address] [place] [address] Phone [phone] Care Team Providers Care Research Geneticist Name Role Phone Kat Hawthorne DO Primary Care Provider [phone] Reason for Visit * Reason Onset Date Comments [facility]: Maintenance 03/17/2024 Encounter Details Date Type Department Care Team (Late st Contact Info) Description 03/17/2024 Telephone [facility], [facility] [address] [place] [address] [facility], Nurse [facility] [address] [place] [address] [facility]: Maintenance Allergies Active Allergy [...] as of this encounter (statuses as of 03/17/2024) Medications Medication Sig Dispensed Refills Start Date [...] Active oxygen IN GASIndications:ILD (interstitial lung disease) ([facility]),Chronic respiratory failure with hypoxia (HCC) Use [...] mouth in the morning. 0 Active Nystatin 512042 UNIT/GM External Powder (Nystop) Apply topically to [...] as of this encounter (statuses as of 03/17/2024) Active Problems Problem Noted Date Diagnosed Date [...] 100 mg BID x 14 days Old OK (myocardial infarction) 04/14/2023 Hyperlipidemia 04/14/2023 Hereditary hemolytic [...] as of this encounter (statuses as of 03/17/2024) Resolved Problems Problem Noted Date Diagnosed Date [...] as of this encounter (statuses as of 03/17/2024) Immunizations Name Administration Dates Next Due COVID-19 mRNA, LNP-s, No Pre serve, 2-Dose Series (Uncovet) 08/23/2021,01/26/2021,01/05/2021 Pneumococcal Conjugate Vacc, 13 Valent (Prevnar) [...] Telephone Encounter - Lizzette Stephens LPN - 03/17/2024 8:16 AM EDT Images from the original note were not included. [facility] Remote Patient Monitoring Able to contact patient: Trigger type: No reading available: Device(s) with no reading available: Current Health Outcome: Suspect device needs troubleshooting: Route to RNCM in care team Call to patient for device not transmitting She has been admitted to [facility] since 03/15 Added her to list to follow d/c Care team made aware documented in this encounter Plan of Treatment Upcoming Encounters Date Type Department Care Team (Latest Contact Info) Description 03/23/2024 9:30 AM EDT [facility] [address] [place] [address] Leigh Canales MD [address] [place] [address] 03/30/2024 12:10 PM EDT Office Visit [facility] [address] [place] [phone] Kat Hawthorne DO [address] [place] [address] 04/18/2024 10:45 AM EDT Hospital Encounter ENDO [facility], Endoscopy Suite, [facility], [address] [place] [address] Fish Ahmadi MD [address] [place] [address] 04/18/2024 10:45 AM EDT - 04/18/2024 12:30 PM EDT Surgery ENDO [facility], Endoscopy Suite, [facility] 1, [address] [place], [place] [phone] Fish Ahmadi MD [address] [place] [address] ESOPHAGOGASTRODUODENOSCOPY (EGD), FLEXIBLE, TRANSORAL, ENDOSCOPIC ULTRASOUND 05/05/2024 10:30 AM EDT Office Visit Orthopaedics, [place] [address] [place] [address] Cholo Shah MD [address], [place] [address] 05/10/2024 10:30 AM EDT Office Visit Gynecology/Oncol ogy, [place] [address], [place] [address] Jeanie Gunter PA-C [address], [place] [address] 08/29/2024 11:00 AM EDT Office Visit [facility] [address] [address] Shilpi Bailey PA-C [address] [facility] [place] [address] Scheduled Procedures Name Priority Associated Diagnoses Date/Ti vt ESOPHAGOGASTRODUODENOSCOPY ( EGD), FLEXIBLE, TRANSORAL, ENDOSCOPIC ULTRASOUND [...] Additional history exists CKD PHOS USE SMARTSET 23230 03/16/2024 05/0 06/2023, 03/15/2023, 03/14/2023, Additional history exists GFR 08/16/2024 02/15/2024, 11/11, 09/17/2023, Additional history exists Mammogram 12/09/2024 12/09/2023, 04/10, 03/07/2021, Additional history exists CKD HGB USE SMARTSET 78892 02/14/202502/14, 02/15/2024, 12/09/2023, Additional history exists O2 ASSESSMENT COMPLETED IN PAST YEAR FOR COPD 03/08/2025 03/08/2024 Lipid Panel 09/03/2027 09/03/2022, 09/09, 08/02/2019, Additional [...] this encounter Medical Devices Implanted Type Area Supervisor Research Kennel Device Identifier Shelf Expiration Date Model / Serial / Lot Cement Bone Simplex Hv & G - [id number] Implanted:Qty: 2 on 01/05/2023 by Harley Nguyen DO at OR [facility] Left: Knee ROSALIA : ORTHOPAEDICS 06/08/2024 6195-1-010 / / [id number] Component Femoral Size 5 - [id number] Implanted:Qty: 1 on 01/05/2023 by Harley Nguyen DO at OR [facility] Left: Knee ROSALIA : ORTHOPAEDICS 08/09/2026 5510-F-501 / / [id number] Knee Tria Syetric X3 10x36 - [id number] Implanted:Qty: 1 on 01/05/2023 by Harley Nguyen DO at OR [facility] Left: Knee ROSALIA : ORTHOPAEDICS 09/24/2027 5550-G-360 -E / / [id number] Baseplate Tib 5 Knee - [id number] Implanted:Qty: 1 on 01/05/2023 by Harley Nguyen DO at OR [facility] Left: Knee ROSALIA : ORTHOPAEDICS 12/14/2027 5521-B-500 / / [id number] Knee X3 Ins Pos Cs Sz5 9 - [id number] Implanted:Qty: 1 on 01/05/2023 by Harley Nguyen DO at OR [facility] Left: Knee ROSALIA : ORTHOPAEDICS 11/19/2027 5531-G-509 -E / / [id number] Cement Bone Full Mix Surg Simp - [id number] Implanted:Qty: 1 on 03/03/2023 by Cholo Shah MD at [place] [facility] Right: Knee ROSALIA : ORTHOPAEDICS 05/08/2025 6191-1-010 / / [id number] Knee Tib Comp Poly Krh 8 Lg - [id number] Implanted:Qty: 1 on 03/03/2023 by Cholo Shah MD at OR [facility] Right: Knee ROSALIA : ORTHOPAEDICS 07/19/2023 6485-2-308 / / [id number] Knee Hrhk Mod Rot Hng Bushing - [id number] Implanted:Qty: 1 on 03/03/2023 by Cholo Shah MD at OR [facility] Right: Knee ROSALIA : ORTHOPAEDICS 01/09/2027 6481-2-110 / / [id number] Knee Hrhk Mod Rot Hng Bushing - [id number] Implanted:Qty: 1 on 03/03/2023 by Cholo Shah MD at OR [facility] Right: Knee ROSALIA : ORTHOPAEDICS 11/21/2026 6481-2-110 / / [id number] Knee Stem Crv Mod Mrs 40p241 - [id number] Implanted:Qty: 1 on 03/03/2023 by Cholo Shah MD at OR [facility] Right: Knee ROSALIA : ORTHOPAEDICS 10/02/2026 6485-3-715 / / [id number] Tib Mrh Cross Bear Long Xs/Xl - [id number] Implanted:Qty: 1 on 03/03/2023 by Cholo Shah MD at OR [facility] Right: Knee ROSALIA : ORTHOPAEDICS 12/05/2025 6481-2-103 / / [id number] Knee Tib Bumper Rot Hng Nue - [id number] Implanted:Qty: 1 on 03/03/2023 by Cholo Shah MD at [place] [facility] Right: Knee ROSALIA : ORTHOPAEDICS 07/15/2027 6481-2-130 / / [id number] Distal Femoral Component Implanted:Qty: 1 on 03/03/2023 by Cholo Shah MD at [place] [facility] Right: Knee ROSALIA : ORTHOPAEDICS 08/23/2023 6495-2-040 / / [id number] Knee Axle Hrhk Rot Mod Hng - [id number] Implanted:Qty: 1 on 03/03/2023 by Cholo Shah MD at OR [facility] Right: Knee ROSALIA : ORTHOPAEDICS 06/30/2027 6481-2-120 / / [id number] Restrictors Med Cmnt R202-1266 - [id number] Implanted:Qty: 1 on 03/03/2023 by Cholo Shah MD at [place] [facility] Right: Knee ROSALIA : ORTHOPAEDICS 11/18/2027 Q366-5195 / / Cement Bone Full Mix Surg Simp - [id number] Implanted:Qty: 1 on 03/03/2023 by Cholo Shah MD at [place] [facility] Right: Knee ROSALIA : ORTHOPAEDICS 07/09/2025 6191-1-010 / / [id number] Cement Bone Full Mix Surg Simp - [id number] Implanted:Qty: 1 on 03/03/2023 by Cholo Shah MD at [place] [facility] Right: Knee ROSALIA : ORTHOPAEDICS 06/08/2025 6191-1-010 / / [id number] Cement Bone Full Mix Surg Simp - [id number] Implanted:Qty: 1 on 03/03/2023 by Cholo Shah MD at [place] [facility] Right: Knee ROSALIA : ORTHOPAEDICS 05/08/2025 6191-1-010 / / [id number] Knee Fem Gmrs Dis Std R - [id number] Implanted:Qty: 1 on 03/10/2023 by Cholo Shah MD at OR [facility] Right: Knee ROSALIA : ORTHOPAEDICS 10/21/2027 6495-2-040 / / [id number] Knee Hrhk Mod Rot Hng Bushing - [id number] Implanted:Qty: 1 on 03/10/2023 by Cholo Shah MD at OR [facility] Right: Knee ROSALIA : ORTHOPAEDICS 01/29/2027 6481-2-110 / / [id number] Knee Axle Hrhk Rot Mod Hng - [id number] Implanted:Qty: 1 on 03/10/2023 by Cholo Shah MD at OR [facility] Right: Knee ROSALIA : ORTHOPAEDICS 09/15/2027 6481-2-120 / / [id number] Tib Mrh Cross Bear Long Xs/Xl - [id number] Implanted:Qty: 1 on 03/10/2023 by Cholo Shah MD at OR [facility] Right: Knee ROSALIA : ORTHOPAEDICS 09/30/2027 6481-2-103 / / [id number] Knee Hrhk Mod Rot Hng Bushing - [id number] Implanted:Qty: 1 on 03/10/2023 by Cholo Shah MD at OR [facility] Right: Knee ROSALIA : ORTHOPAEDICS 04/24/2027 6481-2-110 / / [id number] Knee Tib Maymper Issac Montes - [id number] Implanted:Qty: 1 on 03/10/2023 by Cholo Shah MD at OR [facility] Right: Knee ROSALIA : ORTHOPAEDICS 10/15/2027 6481-2-130 / / [id number] documented as of this encounter Advance Directives Documents on File Type Date Recorded Patient Customs Import Specialist Expl 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 Care Teams Research Geneticist Relationship Specialty Start Date End Date Kat Hawthorne DO [address] [place] [address] PCP - General Family Medicine 08/20/22 documented as of this encounter
--- OUTSIDE RECORDS SUMMARY | 2024-04-16 12:34 | External Medical Summary | Summary of Care ---
Author Name Unknown Organization [facility] Address [address] [place] [address] Phone [phone] Care Team Providers Care Mortgage Loan Originator Name Role Phone Kat Hawthorne DO Primary Care Provider Reason for Visit * Reason Onset Date Comments Home Monitoring Orders Only 03/14/2024 Encounter Details Date Type Department Care Team (Late st Contact Info) Description 03/14/2024 Home Monitoring [facility] [address] [place] [address] Kat Hawthorne DO [address] [place] [address] Abnormal vital signs* Allergies Active Allergy Reactions [...] as of this encounter (statuses as of 03/14/2024) Medications Medication Sig Dispensed Refills Start Date [...] mouth in the morning. 0 Active Nystatin 808187 UNIT/GM External Powder (Nystop) Apply topically to [...] as of this encounter (statuses as of 03/14/2024) Active Problems Problem Noted Date Diagnosed Date [...] 100 mg BID x 14 days Old [place] (myocardial infarction) 04/14/2023 Hyperlipidemia 04/14/2023 Hereditary hemolytic [...] as of this encounter (statuses as of 03/14/2024) Resolved Problems Problem Noted Date Diagnosed Date [...] as of this encounter (statuses as of 03/14/2024) Immunizations Name Administration Dates Next Due COVID-19 mRNA, LNP-s, No Pre serve, 2-Dose Series (Hypori) 08/23/2021,01/26/2021,01/05/2021 Pneumococcal Conjugate Vacc, 13 Valent (Prevnar) [...] 03/23/2024 9:30 AM EDT Office Visit Pulmonary Medicine, [place] [address] [place] [address] Leigh Canales MD [address] [place] [address] 03/30/2024 12:10 PM EDT Office Visit [place] [address] [place] [phone] Kat Hawthorne DO [address] [place], [place] [phone] 04/18/2024 10:45 AM EDT Hospital Encounter [facility]O [facility], Endoscopy Suite, [facility], [address] [place], [place] [id number] Fish Ahmadi MD [address] [place] [address] 04/18/2024 10:45 AM EDT - 04/18/2024 12:30 PM EDT Surgery [facility], Endoscopy Suite, [facility], [address] [place] [address] Fish Ahmadi MD [address], [place] [phone] ESOPHAGOGASTRODUODENOSCOPY (EGD), FLEXIBLE, TRANSORAL, ENDOSCOPIC ULTRASOUND 05/05/2024 10:30 AM EDT Office Visit Orthopaedics, [place] [address], [place] [phone] Cholo Shah MD [address] [place] [address] 05/10/2024 10:30 AM EDT Office Visit Gynecology/[facility] [address] [place] [address] Jeanie Gunter PA-C [address] [place] [address] 08/29/2024 11:00 AM EDT Office Visit Cardiology, [facility] [address] [facility] [place] [address] Shilpi Bailey PA-C [address] [facility] [place] [address] Scheduled Procedures Name Priority Associated Diagnoses Date/Ti [...] Additional history exists CKD PHOS USE SMARTSET 42551 03/16/2024 05/0 06/2023, 03/15/2023, 03/14/2023, Additional history exists GFR 08/16/2024 02/15/2024, 11/11, 09/17/2023, Additional history exists Mammogram 12/09/2024 12/09/2023, 04/10, 03/07/2021, Additional history exists CKD HGB USE SMARTSET 00537 02/14/202502/14, 02/15/2024, 12/09/2023, Additional history exists O2 [...] this encounter Medical Devices Implanted Type Area Photograph Editor Device Identifier Shelf Expiration Date Model / Serial / Lot Cement Bone Simplex Hv & G - [id number] Implanted:Qty: 2 on 01/05/2023 by Harley Nguyen DO at OR [facility] Left: Knee ROSALIA : ORTHOPAEDICS 06/08/2024 6195-1-010 / / [id number] Component Femoral Size 5 - [id number] Implanted:Qty: 1 on 01/05/2023 by Harley Nguyen DO at OR [facility] Left: Knee ROSALIA : ORTHOPAEDICS 08/09/2026 5510-F-501 / / [id number] Knee Tria Syetric X3 10x36 - [id number] Implanted:Qty: 1 on 01/05/2023 by Harley Nguyen DO at OR [facility] Left: Knee ROSALIA : ORTHOPAEDICS 09/24/2027 5550-G-360 -E / / [id number] Baseplate Tib 5 Knee - [id number] Implanted:Qty: 1 on 01/05/2023 by Harley Nguyen DO at OR [facility] Left: Knee ROSALIA : ORTHOPAEDICS 12/14/2027 5521-B-500 / / [id number] Knee X3 Ins Pos Cs Sz5 9 - [id number] Implanted:Qty: 1 on 01/05/2023 by Harley Nguyen DO at OR [facility] Left: Knee ROSALIA : ORTHOPAEDICS 11/19/2027 5531-G-509 -E / / [id number] Cement Bone Full Mix Surg Simp - [id number] Implanted:Qty: 1 on 03/03/2023 by Cholo Shah MD at [place] [facility] [place]: Knee ROSALIA : ORTHOPAEDICS 05/08/2025 6191-1-010 / / [id number] Knee Tib Comp Poly Krh 8 Lg - [id number] Implanted:Qty: 1 on 03/03/2023 by Cholo Shah MD at [place] [facility] Right: Knee ROSALIA : ORTHOPAEDICS 07/19/2023 6485-2-308 / / [id number] Knee Hrhk Mod Rot Hng Bushing - [id number] Implanted:Qty: 1 on 03/03/2023 by Cholo Shah MD at [place] [facility] Right: Knee ROSALIA : ORTHOPAEDICS 01/09/2027 6481-2-110 / / [id number] Knee Hrhk Mod Rot Hng Bushing - [id number] Implanted:Qty: 1 on 03/03/2023 by Cholo Shah MD at [place] [facility] Right: Knee ROSALIA : ORTHOPAEDICS 11/21/2026 6481-2-110 / / [id number] Knee Stem Crv Mod Mrs 01w077 - [id number] Implanted:Qty: 1 on 03/03/2023 by Cholo Shah MD at [place] [facility] Right: Knee ROSALIA : ORTHOPAEDICS 10/02/2026 6485-3-715 / / [id number] Tib Mrh Cross Bear Long Xs/Xl - [id number] Implanted:Qty: 1 on 03/03/2023 by Cholo Shah MD at [place] [facility] Right: Knee ROSALIA : ORTHOPAEDICS 12/05/2025 6481-2-103 / / [id number] Knee Tib Bumper Rot Hng Nue - [id number] Implanted:Qty: 1 on 03/03/2023 by Cholo Shah MD at [place] [facility] Right: Knee ROSALIA : ORTHOPAEDICS 07/15/2027 6481-2-130 / / [id number] Distal Femoral Component Implanted:Qty: 1 on 03/03/2023 by Cholo Shah MD at [place] [facility] Right: Knee ROSALIA : ORTHOPAEDICS 08/23/2023 6495-2-040 / / [id number] Knee Axle Hrhk Rot Mod Hng - [id number] Implanted:Qty: 1 on 03/03/2023 by Cholo Shah MD at [place] [facility] Right: Knee ROSALIA : ORTHOPAEDICS 06/30/2027 6481-2-120 / / [id number] Restrictors Med Cmnt M255-4423 - [id number] Implanted:Qty: 1 on 03/03/2023 by Cholo Shah MD at [place] [facility] Right: Knee ROSALIA : ORTHOPAEDICS 11/18/2027 K088-9893 / / Cement Bone Full Mix Surg Simp - [id number] Implanted:Qty: 1 on 03/03/2023 by Cholo Shah MD at [place] [facility] Right: Knee ROSALIA : ORTHOPAEDICS 07/09/2025 6191-1-010 / / [id number] Cement Bone Full Mix Surg Simp - [id number] Implanted:Qty: 1 on 03/03/2023 by Cholo Shah MD at [place] [facility] Right: Knee ROSALIA : ORTHOPAEDICS 06/08/2025 6191-1-010 / / [id number] Cement Bone Full Mix Surg Simp - [id number] Implanted:Qty: 1 on 03/03/2023 by Cholo Shah MD at [place] [facility] Right: Knee ROSALIA : ORTHOPAEDICS 05/08/2025 6191-1-010 / / [id number] Knee Fem Gmrs Dis Std R - [id number] Implanted:Qty: 1 on 03/10/2023 by Cholo Shah MD at [place] [facility] Right: Knee ROSALIA : ORTHOPAEDICS 10/21/2027 6495-2-040 / / [id number] Knee Hrhk Mod Rot Hng Bushing - [id number] Implanted:Qty: 1 on 03/10/2023 by Cholo Shah MD at [place] [facility] Right: Knee ROSALIA : ORTHOPAEDICS 01/29/2027 6481-2-110 / / [id number] Knee Axle Hrhk Rot Mod Hng - [id number] Implanted:Qty: 1 on 03/10/2023 by Cholo Shah MD at [place] [facility] Right: Knee ROSALIA : ORTHOPAEDICS 09/15/2027 6481-2-120 / / [id number] Tib Mrh Cross Bear Long Xs/Xl - [id number] Implanted:Qty: 1 on 03/10/2023 by Cholo Shah MD at [place] [facility] Right: Knee ROSALIA : ORTHOPAEDICS 09/30/2027 6481-2-103 / / [id number] Knee Hrhk Mod Rot Hng Bushing - [id number] Implanted:Qty: 1 on 03/10/2023 by Cholo Shah MD at [place] [facility] Right: Knee ROSALIA : ORTHOPAEDICS 04/24/2027 6481-2-110 / / [id number] Knee Tib Bumper Rot Hng Nue - [id number] Implanted:Qty: 1 on 03/10/2023 by Cholo Shah MD at [place] [facility] Right: Knee ROSALIA : ORTHOPAEDICS 10/15/2027 6481-2-130 / / [id number] documented as of this encounter Visit Diagnoses Diagnosis Abnormal vital signs- Primary Choledocholithiasis Calculus of bile duct without mention of cholecystitis or obstruction documented in this encounter Advance Directives Documents on File Type Date Recorded Patient Horticulture/Floriculture Teacher Expl 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 Care Teams Mortgage Loan Originator Relationship Specialty Start Date End Date Kat Hawthorne DO [address] [place] [address] PCP - General Family Medicine 08/20/22 documented as of this encounter
--- OUTSIDE RECORDS SUMMARY | 2024-04-16 12:34 | External Medical Summary | Summary of Care ---
Author Name Unknown Organization [facility] Address [address] [place] [address] Phone [phone] Care Team Providers Care Hand Button Splitter Name Role Phone Kat Hawthorne DO Primary Care Provider [phone] Reason for Visit * Reason Onset Date Comments [facility]: Screening 03/14/2024 Encounter Details Date Type Department Care Team ([facility] st Contact Info) Description 03/14/2024 Telephone [facility], [facility] [address] [facility] [place] [address] Coordinator, [facility] [address] [facility] [place] [address] [facility]: Screening Allergies Active Allergy [...] mouth in the morning. 0 Active Nystatin 391670 UNIT/GM External Powder (Nystop) Apply topically to [...] & Plan: S/P wound vac placement at [facility] On doxycycline 100 mg BID x 14 days Old [place] (myocardial infarction) 04/14/2023 Hyperlipidemia 04/14/2023 Hereditary hemolytic [...] Telephone Encounter - Gemini Murry LPN - 03/14/2024 4:55 PM EDT Images from the original note were not included. [facility] Remote Patient Monitoring Unable to contact patient: Trigger type: Abnormal reading(s): Device(s) Triggered: Current Health: Pulse Oximeter trigger: Oxygen saturation per oximeter: 78 Pulse rate per oximeter: 70 Baseline oxygen requirements: Room air Plan: LM requesting return call, suspect wearable band needs repositioned. LM requesting return call. documented in this encounter Plan of Treatment Upcoming Encounters Date Type Department Care Team (Latest Contact Info) Description 03/23/2024 9:30 AM EDT Office Visit Pulmonary Medicine, [place] [address] [place] [address] Leigh Canales MD [address] [place] [address] 03/30/2024 12:10 PM EDT Office Visit [place] [address] [place] [phone] Kat Hawthorne DO [address] [place] [address] 04/18/2024 10:45 AM EDT Hospital Encounter [facility] Endoscopy Suite, [facility] 1, [address] [place] [address] Fish Ahmadi MD [address] [place] [address] 04/18/2024 10:45 AM EDT - 04/18/2024 12:30 PM EDT Surgery ENDO [facility], Endoscopy Suite, [facility] 1, [address], [place] [address] Fish Ahmadi MD [address] [place] [address] ESOPHAGOGASTRODUODENOSCOPY (EGD), FLEXIBLE, TRANSORAL, ENDOSCOPIC ULTRASOUND 05/05/2024 10:30 AM EDT Office Visit Orthopaedics, [place] [address] [place] [address] Cholo Shah MD [address], [place] [address] 05/10/2024 10:30 AM EDT Office Visit Gynecology/Oncol ogy, [place] [address] [place] [address] Jeanie Gunter PA-C [address] [place], [place] [address] 08/29/2024 11:00 AM EDT Office Visit Cardiology, [facility] [address] [place] [address] Shilpi Bailey PA-C [address] [place] [address] Scheduled Procedures Name Priority Associated Diagnoses Date/Ti ok ESOPHAGOGASTRODUODENOSCOPY ( EGD), FLEXIBLE, TRANSORAL, ENDOSCOPIC ULTRASOUND [...] Additional history exists CKD PHOS USE SMARTSET 30783 03/16/2024 05/0 06/2023, 03/15/2023, 03/14/2023, Additional history exists GFR 08/16/2024 02/15/2024, 11/11, 09/17/2023, Additional history exists Mammogram 12/09/2024 12/09/2023, 04/10, 03/07/2021, Additional history exists CKD HGB USE SMARTSET 24276 02/14/202502/14, 02/15/2024, 12/09/2023, Additional history exists O2 [...] this encounter Medical Devices Implanted Type Area Nuclear Waste Management Engineer Device Identifier Shelf Expiration Date Model / Serial / Lot Cement Bone Simplex Hv & G - [id number] Implanted:Qty: 2 on 01/05/2023 by Harley Nguyen DO at OR [facility] Left: Knee ROSALIA : ORTHOPAEDICS 06/08/2024 6195-1-010 / / [id number] Component Femoral Size 5 - [id number] Implanted:Qty: 1 on 01/05/2023 by Harley Nguyen DO at OR [facility] Left: Knee ROSALIA : ORTHOPAEDICS 08/09/2026 5510-F-501 / / [id number] Knee Tria Syetric X3 10x36 - [id number] Implanted:Qty: 1 on 01/05/2023 by Harley Nguyen DO at OR [facility] Left: Knee ROSALIA : ORTHOPAEDICS 09/24/2027 5550-G-360 -E / / [id number] Baseplate Tib 5 Knee - [id number] Implanted:Qty: 1 on 01/05/2023 by Harley Nguyen DO at OR [facility] Left: Knee ROSALIA : ORTHOPAEDICS 12/14/2027 5521-B-500 / / [id number] Knee X3 Ins Pos Cs Sz5 9 - [id number] Implanted:Qty: 1 on 01/05/2023 by Harley Nguyen DO at OR [facility] Left: Knee ROSALIA : ORTHOPAEDICS 11/19/2027 5531-G-509 -E / / [id number] Cement Bone Full Mix Surg Simp - [id number] Implanted:Qty: 1 on 03/03/2023 by Cholo Shah MD at [place] [facility] Right: Knee ROSALIA : ORTHOPAEDICS 05/08/2025 6191-1-010 / / [id number] Knee Tib Comp Poly Krh 8 Lg - [id number] Implanted:Qty: 1 on 03/03/2023 by Cholo Shah MD at [place] [facility] Right: Knee ROSALIA : ORTHOPAEDICS 07/19/2023 6485-2-308 / / [id number] Knee Hrhk Mod Rot Hng Bushing - [id number] Implanted:Qty: 1 on 03/03/2023 by Cholo Shah MD at [place] [facility] Right: Knee ROSALIA : ORTHOPAEDICS 01/09/2027 6481-2-110 / / [id number] Knee Hrhk Mod Rot Hng Bushing - [id number] Implanted:Qty: 1 on 03/03/2023 by Cholo Shah MD at [place] [facility] Right: Knee ROSALIA : ORTHOPAEDICS 11/21/2026 6481-2-110 / / [id number] Knee Stem Crv Mod Mrs [id number] - [id number] Implanted:Qty: 1 on 03/03/2023 by Cholo Shah MD at [place] [facility] Right: Knee ROSALIA : ORTHOPAEDICS 10/02/2026 6485-3-715 / / [id number] Tib Mrh Cross Bear Long Xs/Xl - [id number] Implanted:Qty: 1 on 03/03/2023 by Cholo Shah MD at [place] [facility] Right: Knee ROSALIA : ORTHOPAEDICS 12/05/2025 6481-2-103 / / [id number] Knee Tib Bumper Rot Hng Nue - [id number] Implanted:Qty: 1 on 03/03/2023 by Cholo Shah MD at [place] [facility] Right: Knee ROSALIA : ORTHOPAEDICS 07/15/2027 6481-2-130 / / [id number] Distal Femoral Component Implanted:Qty: 1 on 03/03/2023 by Cholo Shah MD at [place] [facility] Right: Knee ROSALIA : ORTHOPAEDICS 08/23/2023 6495-2-040 / / [id number] Knee Axle Hrhk Rot Mod Hng - [id number] Implanted:Qty: 1 on 03/03/2023 by Cholo Shah MD at [place] [facility] Right: Knee ROSALIA : ORTHOPAEDICS 06/30/2027 6481-2-120 / / [id number] Restrictors Med Cmnt Y072-2320 - [id number] Implanted:Qty: 1 on 03/03/2023 by Cholo Shah MD at [place] [facility] Right: Knee ROSALIA : ORTHOPAEDICS 11/18/2027 T741-0777 / / Cement Bone Full Mix Surg Simp - [id number] Implanted:Qty: 1 on 03/03/2023 by Cholo Shah MD at [place] [facility] Right: Knee ROSALIA : ORTHOPAEDICS 07/09/2025 6191-1-010 / / [id number] Cement Bone Full Mix Surg Simp - [id number] Implanted:Qty: 1 on 03/03/2023 by Cholo Shah MD at [place] [facility] Right: Knee ROSALIA : ORTHOPAEDICS 06/08/2025 6191-1-010 / / [id number] Cement Bone Full Mix Surg Simp - [id number] Implanted:Qty: 1 on 03/03/2023 by Cholo Shah MD at [place] [facility] Right: Knee ROSALIA : ORTHOPAEDICS 05/08/2025 6191-1-010 / / [id number] Knee Fem Gmrs Dis Std R - [id number] Implanted:Qty: 1 on 03/10/2023 by Cholo Shah MD at [place] [facility] Right: Knee ROSALIA : ORTHOPAEDICS 10/21/2027 6495-2-040 / / [id number] Knee Hrhk Mod Rot Hng Bushing - [id number] Implanted:Qty: 1 on 03/10/2023 by Cholo Shah MD at [place] [facility] Right: Knee ROSALIA : ORTHOPAEDICS 01/29/2027 6481-2-110 / / [id number] Knee Axle Hrhk Rot Mod Hng - [id number] Implanted:Qty: 1 on 03/10/2023 by Cholo Shah MD at [place] [facility] Right: Knee ROSALIA : ORTHOPAEDICS 09/15/2027 6481-2-120 / / [id number] Tib Mrh Cross Bear Long Xs/Xl - [id number] Implanted:Qty: 1 on 03/10/2023 by Cholo Shah MD at [place] [facility] Right: Knee ROSALIA : ORTHOPAEDICS 09/30/2027 6481-2-103 / / [id number] Knee Hrhk Mod Rot Hng Bushing - [id number] Implanted:Qty: 1 on 03/10/2023 by Cholo Shah MD at [place] [facility] Right: Knee ROSALIA : ORTHOPAEDICS 04/24/2027 6481-2-110 / / [id number] Knee Tib Bumper Issac Hayden Nutorsten - [id number] Implanted:Qty: 1 on 03/10/2023 by Cholo Shah MD at [place] [facility] Right: Knee ROSALIA : ORTHOPAEDICS 10/15/2027 6481-2-130 / / [id number] documented as of this encounter Advance Directives Documents on File Type Date Recorded Patient Sewer Hand Expl 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 Care Teams Hand Button Splitter Relationship Specialty Start Date End Date Kat Hawthorne DO [address] [facility] [address] PCP - General Family Medicine 08/20/22 documented as of this encounter
--- OUTSIDE RECORDS SUMMARY | 2024-04-16 12:34 | External Medical Summary ---
Author Name Unknown Address Unknown Organization [id number][place] [place] [address] [place] [address] Laboratory Report Ordering Provider Test Date Status BRISA KNIGHT 03/21/2024 12:19:51 Final Observation Date Value Abnormality Reference (Units ) Status BUN 03/21/2024 12:19:51 26 Above high normal 6-20 (mg/dL) Final Creatinine 03/21/2024 12:19:51 0.9 0.5-1.0 (mg/dL) Final Glomerular filtration rate/1.73 sq M.predicted [Volume Rate/Area] in Serum, Plasma or Blood by Creatinine-based formula (CKD-EPI) 03/21/2024 12:19:51 71 >=60 (mL/min) Final eGFR is calculated based on the CKD-EPI 2020 equation Sodium 03/21/2024 12:19:51 140 135-146 (m mol/L) Final Potassium 03/21/2024 12:19:51 3.8 3.5-5.1 (m mol/L) Final Cl 03/21/2024 12:19:51 92 Below low normal 98- 107 (mmol/L) Final CO2 03/21/2024 12:19:51 36 Above high normal 22 -32 (mmol/L) Final Anion gap 03/21/2024 12:19:51 12 7-15 (mmol /L) Final Glucose 03/21/2024 12:19:51 202 Above high normal 70 -120 (mg/dL) Final Calcium 03/21/2024 12:19:51 9.5 8.4-10.2 ( mg/dL) Final Performing Location [facility] [place] [address] [place] [address]
--- OUTSIDE RECORDS SUMMARY | 2024-04-16 12:34 | External Medical Summary ---
Author Name Unknown Address Unknown Organization K01:[facility]ORY [facility] [place] - [address] [facility] [address] [place] [address] Laboratory Report Ordering Provider Test Date Status BRISA KNIGHT 03/21/2024 12:19:51 Final Observation Date Value Abnormality Reference (Units ) Status WBC, Total 03/21/2024 12:19:51 8.13 4.00-10.80 (K/uL) Final RBC 03/21/2024 12:19:51 3.03 3.85-5.15 (M/uL) Final Hemoglobin 03/21/2024 12:19:51 8.8 Below low normal 12.0-15.3 (g/dL) Final HCT 03/21/2024 12:19:51 29.2 Below low normal 36.0-45.2 (%) Final MCV 03/21/2024 12:19:51 96.4 81.5-97.5 (fL) Final MCH 03/21/2024 12:19:51 29.0 27.0-34.0 (pg) Final MCHC 03/21/2024 12:19:51 30.1 32.0-36.0 (g/dL) Final RDW 03/21/2024 12:19:51 20.4 11.5-15.5 (%) Final Platelets 03/21/2024 12:19:51 120 Below low normal 140-400 (K/uL) Final MPV 03/21/2024 12:19:51 11.1 6.6-11.1 (fL) Final Nucleated erythrocytes/100 leukocytes [Ratio] in Blood by Automated count 03/21/2024 12:19:51 1 Above high normal <=0 (/100 WBCs) Final Performing Location LABOR[facility]ORY [facility] [place] - [address] [place] [address]
--- OUTSIDE RECORDS SUMMARY | 2024-04-16 12:34 | External Medical Summary | Summary of Care ---
Author Name Unknown Organization [facility] Address [address] [place] [facility] [place] [address] Phone [phone] Care Team Providers Care Nickel Operator Name Role Phone Kat Hawthorne DO Primary Care Provider [phone] Reason for Visit * Reason Onset Date Comments [facility]: Maintenance 03/11/2024 Encounter Details Date Type Department Care Team (Late st Contact Info) Description 03/11/2024 Telephone [facility], [facility] [address] [facility] [place] [address] [facility], Nurse [facility] [address] [facility] [place] [address] [facility]: Maintenance Allergies Active Allergy [...] as of this encounter (statuses as of 03/11/2024) Medications Medication Sig Dispensed Refills Start Date [...] IN GASIndications:ILD (interstitial lung disease) ([facility]),Chronic respiratory failure with hypoxia (HCC) Use 2 LPM with exertion and 3 LPM with sleep. Needs small portable tanks, standing concentrator DME: [facility] 1 Each 0 07/02/2022 Active Proventil HFA 108 (90 Base) MCG/ACT Inhalation Aerosol SolutionIndications: ILD (interstitial lung disease) ([facility]) Inhale by mouth 2 Puffs every 4 [...] mouth in the morning. 0 Active Nystatin 314449 UNIT/GM External Powder (Nystop) Apply topically to [...] as of this encounter (statuses as of 03/11/2024) Active Problems Problem Noted Date Diagnosed Date [...] & Plan: S/P wound vac placement at [facility] On doxycycline 100 mg BID x 14 [...] as of this encounter (statuses as of 03/11/2024) Resolved Problems Problem Noted Date Diagnosed Date [...] as of this encounter (statuses as of 03/11/2024) Immunizations Name Administration Dates Next Due COVID-19 [...] encounter Miscellaneous Notes * Telephone Encounter - Urvashi Moffett LPN - 03/11/2024 10:30 AM EDT [facility] Remote Patient Monitoring Able to contact patient: Trigger type: No reading available: Device(s) with no reading available: Current Health Spoke with Orin made aware we haven't received any recent readings patient states she dropped band when placing on kiln charger yesterday , patient will place band on kiln charger for a bout [address] back on , aware I will watch for readings to come thru and will call her back today documented in this encounter Plan of Treatment Upcoming Encounters Date Type Department Care Team (Latest Contact Info) Description 03/23/2024 9:30 AM EDT [facility] [address] [place] [address] Leigh Canales MD [address] [place] [address] 03/30/2024 12:10 PM EDT Office Visit [facility] [address] [place] [id number] Kat Hawthorne DO [address] [place] [address] 04/18/2024 10:45 AM EDT Hospital Encounter [facility], Endoscopy Suite, [facility] 1, [address] [place] [address] Fish Ahmadi MD [address] [place] [address] 04/18/2024 10:45 AM EDT - 04/18/2024 12:30 PM EDT Surgery ENDO [facility], Endoscopy Suite, [facility] 1, [address], [place] [id number] Fish Ahmadi MD [address] [place], [place] [phone] ESOPHAGOGASTRODUODENOSCOPY (EGD), FLEXIBLE, TRANSORAL, ENDOSCOPIC ULTRASOUND 05/05/2024 10:30 AM EDT Office Visit Orthopaedics, [place] [address], [place] [phone] Cholo Shah MD [address] [place], [place] [phone] 05/10/2024 10:30 AM EDT Office Visit Gynecology/Oncol ogy, [facility] [address], [place] [phone] Jeanie Gunter PA-C [address] [place], [place] [phone] 08/29/2024 11:00 AM EDT Office Visit [facility] [address] [place] [address] Shilpi Bailey PA-C [address] [facility] [address] Scheduled Procedures Name Priority Associated [...] COPD 03/10/2024 03/10/2023 CKD PHOS USE SMARTSET 86364 03/16/2024 05/0 06/2023, 03/15/2023, 03/14/2023, Additional history exists GFR 08/16/2024 02/15/2024, 11/11, 09/17/2023, Additional history exists Mammogram 12/09/2024 12/09/2023, 04/10, 03/07/2021, Additional history exists CKD HGB USE SMARTSET 38764 02/14/202502/14, 02/15/2024, 12/09/2023, Additional history exists Lipid [...] this encounter Medical Devices Implanted Type Area Drywall Installer Device Identifier Shelf Expiration Date Model / Serial / Lot Cement Bone Simplex Hv & G - [id number] Implanted:Qty: 2 on 01/05/2023 by Harley Nguyen, DO at OR [facility] Left: Knee ROSALIA : ORTHOPAEDICS 06/08/2024 6195-1-010 / / [id number] Component Femoral Size 5 - [id number] Implanted:Qty: 1 on 01/05/2023 by Harley Nguyen, at OR [facility] Left: Knee ROSALIA : ORTHOPAEDICS 08/09/2026 5510-F-501 / / [id number] Knee Tria Syetric X3 10x36 - [id number] Implanted:Qty: 1 on 01/05/2023 by Harley Nguyen, at OR [facility] Left: Knee ROSALIA : ORTHOPAEDICS 09/24/2027 5550-G-360 -E / / [id number] Baseplate Tib 5 Knee - [id number] Implanted:Qty: 1 on 01/05/2023 by Harley Nguyen DO at OR [facility] Left: Knee ROSALIA : ORTHOPAEDICS 12/14/2027 5521-B-500 / / [id number] Knee X3 Ins Pos Cs Sz5 9 - [id number] Implanted:Qty: 1 on 01/05/2023 by Harley Nguyen, at OR [facility] Left: Knee ROSALIA : ORTHOPAEDICS 11/19/2027 5531-G-509 -E / / [id number] Cement Bone Full Mix Surg Simp - [id number] Implanted:Qty: 1 on 03/03/2023 by Cholo Shah MD at [place] [facility] Right: Knee ROSALIA : ORTHOPAEDICS 05/08/2025 6191-1-010 / / [id number] Knee Tib Comp Poly Krh 8 Lg - [id number] Implanted:Qty: 1 on 03/03/2023 by Cholo Shah MD at OR [facility] Right: Knee ROS[employer]IA : ORTHOPAEDICS 07/19/2023 6485-2-308 / / [id number] Knee Hrhk Mod Rot Hng Bushing - [id number] Implanted:Qty: 1 on 03/03/2023 by Cholo Shah MD at [facility] Right: Knee ROSALIA : ORTHOPAEDICS 01/09/2027 6481-2-110 / / [id number] Knee Hrhk Mod Rot Hng Bushing - [id number] Implanted:Qty: 1 on 03/03/2023 by Cholo Shah MD at OR [facility] Right: Knee ROSALIA : ORTHOPAEDICS 11/21/2026 6481-2-110 / / [id number] Knee Stem Crv Mod Mrs 72p054 - [id number] Implanted:Qty: 1 on 03/03/2023 by Cholo Shah MD at OR [facility] Right: Knee ROSALIA : ORTHOPAEDICS 10/02/2026 6485-3-715 / / [id number] Tib Mrh Cross Bear Long Xs/Xl - [id number] Implanted:Qty: 1 on 03/03/2023 by Cholo Shah MD at OR [facility] Right: Knee ROSALIA : ORTHOPAEDICS 12/05/2025 6481-2-103 / / [id number] Knee Tib Bumper Rot Hng Nue - [id number] Implanted:Qty: 1 on 03/03/2023 by Cholo Shah MD at OR [facility] Right: Knee ROSALIA : ORTHOPAEDICS 07/15/2027 6481-2-130 / / [id number] Distal Femoral Component Implanted:Qty: 1 on 03/03/2023 by Cholo Shah MD at OR [facility] Right: Knee ROS[employer]IA : ORTHOPAEDICS 08/23/2023 6495-2-040 / / [id number] Knee Axle Hrhk Rot Mod Hng - [id number] Implanted:Qty: 1 on 03/03/2023 by Cholo Shah MD at OR [facility] Right: Knee ROSALIA : ORTHOPAEDICS 06/30/2027 6481-2-120 / / [id number] Restrictors Med Cmnt G603-1601 - [id number] Implanted:Qty: 1 on 03/03/2023 by Cholo Shah MD at OR [facility] Right: Knee ROS[employer]IA : ORTHOPAEDICS 11/18/2027 Y959-5452 / / Cement Bone Full Mix Surg Simp - [id number] Implanted:Qty: 1 on 03/03/2023 by Cholo Shah MD at [place] [facility] Right: Knee ROS[employer]IA : ORTHOPAEDICS 07/09/2025 6191-1-010 / / [id number] Cement Bone Full Mix Surg Simp - [id number] Implanted:Qty: 1 on 03/03/2023 by Cholo Shah MD at OR [facility] Right: Knee ROS[employer]IA : ORTHOPAEDICS 06/08/2025 6191-1-010 / / [id number] Cement Bone Full Mix Surg Simp - [id number] Implanted:Qty: 1 on 03/03/2023 by Cholo Shah MD at OR [facility] Right: Knee ROSALIA : ORTHOPAEDICS 05/08/2025 6191-1-010 / / [id number] Knee Fem Gmrs Dis Std R - [id number] Implanted:Qty: 1 on 03/10/2023 by Cholo Shah MD at OR [facility] Right: Knee ROS[employer]IA : ORTHOPAEDICS 10/21/2027 6495-2-040 / / [id number] Knee Hrhk Mod Rot Hng Bushing - [id number] Implanted:Qty: 1 on 03/10/2023 by Cholo Shah MD at OR [facility] Right: Knee ROS[employer]IA : ORTHOPAEDICS 01/29/2027 6481-2-110 / / [id number] Knee Axle Hrhk Rot Mod Hng - [id number] Implanted:Qty: 1 on 03/10/2023 by Cholo Shah MD at OR [facility] Right: Knee ROS[employer]IA : ORTHOPAEDICS 09/15/2027 6481-2-120 / / [id number] Tib Mrh Cross Bear Long Xs/Xl - [id number] Implanted:Qty: 1 on 03/10/2023 by Cholo Shah MD at OR [facility] Right: Knee ROSALIA : ORTHOPAEDICS 09/30/2027 6481-2-103 / / [id number] Knee Hrhk Mod Rot Hng Bushing - [id number] Implanted:Qty: 1 on 03/10/2023 by Cholo Shah MD at OR [facility] Right: Knee ROSALIA : ORTHOPAEDICS 04/24/2027 6481-2-110 / / [id number] Knee Tib Bumper Rot Pinedag Jyoti - [id number] Implanted:Qty: 1 on 03/10/2023 by Cholo Shah MD at OR [facility] Right: Knee ROSALIA : ORTHOPAEDICS 10/15/2027 6481-2-130 / / [id number] documented as of this encounter Advance Directives Documents on File Type Date Recorded Patient Extrusion Press Supervisor Expl 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 Care Teams Nickel Operator Relationship Specialty Start Date End Date Kat Hawthorne DO [address] [place] [address] PCP - General Family Medicine 08/20/22 documented as of this encounter
--- OUTSIDE RECORDS SUMMARY | 2024-04-16 12:34 | External Medical Summary | Summary of Care ---
Author Name Unknown Organization [facility] Address [address] [place] [address] Phone [phone] Care Team Providers Care Science Consultant Name Role Phone Kat Hawthorne DO Primary Care Provider [phone] Reason for Visit * Reason Onset Date Comments Home Monitoring Orders Only 03/14/2024 Encounter Details Date Type Department Care Team (Late st Contact Info) Description 03/14/2024 Home Monitoring [facility] [address] [place] [address] Kat Hawthorne DO [address] [place] [address] Abnormal vital signs* Allergies Active Allergy Reactions [...] Active oxygen IN GASIndications:ILD (interstitial lung disease) ([facility]),Chronic respiratory failure with hypoxia (HCC) Use [...] mouth in the morning. 0 Active Nystatin 762957 UNIT/GM External Powder (Nystop) Apply topically to [...] 100 mg BID x 14 days Old [place] (myocardial infarction) 04/14/2023 Hyperlipidemia 04/14/2023 Hereditary hemolytic [...] mRNA, LNP-s, No Pre serve, 2-Dose Series (OUYA) 08/23/2021,01/26/2021,01/05/2021 Pneumococcal Conjugate Vacc, 13 Valent (Prevnar) [...] 9:30 AM EDT Office Visit Pulmonary Medicine, [place] [address] [place] [address] Leigh Canales MD [address] [place] [address] 03/30/2024 12:10 PM EDT Office Visit [place] [address] [place] [phone] Kat Hawthorne DO [address], [place] [address] 04/18/2024 10:45 AM EDT Hospital Encounter [facility], Endoscopy Suite, [facility] 1, [address], [place] [address] Fish Ahmadi MD [address] [place] [address] 04/18/2024 10:45 AM EDT - 04/18/2024 12:30 PM EDT Surgery ENDO [facility], Endoscopy Suite, [facility] 1, [address] [place] [address] Fish Ahmadi MD [address] [place], [place] [address] ESOPHAGOGASTRODUODENOSCOPY (EGD), FLEXIBLE, TRANSORAL, ENDOSCOPIC ULTRASOUND 05/05/2024 10:30 AM EDT Office Visit Orthopaedics, [place] [address], [place] [phone] Cholo Shah MD [address] [place] [address] 05/10/2024 10:30 AM EDT Office Visit Gynecology/[facility]col [facility] [address] [place] [address] Jeanie Gunter PA-C [address] [place] [address] 08/29/2024 11:00 AM EDT Office Visit Cardiology, [facility] [address] [facility] [place] [address] Shilpi Bailey PA-C [address] [place] [address] Scheduled Procedures Name Priority Associated Diagnoses Date/Ti [...] Additional history exists CKD PHOS USE SMARTSET 19896 03/16/2024 05/0 06/2023, 03/15/2023, 03/14/2023, Additional history exists GFR 08/16/2024 02/15/2024, 11/11, 09/17/2023, Additional history exists Mammogram 12/09/2024 12/09/2023, 04/10, 03/07/2021, Additional history exists CKD HGB USE SMARTSET 12724 02/14/202502/14, 02/15/2024, 12/09/2023, Additional history exists O2 [...] this encounter Medical Devices Implanted Type Area Lard Tub Washer Device Identifier Shelf Expiration Date Model / Serial / Lot Cement Bone Simplex Hv & G - [id number] Implanted:Qty: 2 on 01/05/2023 by Harley Nguyen DO at OR [facility] Left: Knee ROSALIA : ORTHOPAEDICS 06/08/2024 6195-1-010 / / [id number] Component Femoral Size 5 - [id number] Implanted:Qty: 1 on 01/05/2023 by Harley Nguyen DO at OR [facility] Left: Knee ROSALIA : ORTHOPAEDICS 08/09/2026 5510-F-501 / / [id number] Knee Tria Syetric X3 10x36 - [id number] Implanted:Qty: 1 on 01/05/2023 by Harley Nguyen DO at OR [facility] Left: Knee ROSALIA : ORTHOPAEDICS 09/24/2027 5550-G-360 -E / / [id number] Baseplate Tib 5 Knee - [id number] Implanted:Qty: 1 on 01/05/2023 by Harley Nguyen DO at OR [facility] Left: Knee ROSALIA : ORTHOPAEDICS 12/14/2027 5521-B-500 / / [id number] Knee X3 Ins Pos Cs Sz5 9 - [id number] Implanted:Qty: 1 on 01/05/2023 by Harley Nguyen DO at OR [facility] Left: Knee ROSALIA : ORTHOPAEDICS 11/19/2027 5531-G-509 -E / / [id number] Cement Bone Full Mix Surg Simp - [id number] Implanted:Qty: 1 on 03/03/2023 by Cholo Shah MD at OR [facility] Right: Knee ROSALIA : ORTHOPAEDICS 05/08/2025 6191-1-010 / / [id number] Knee Tib Comp Poly Krh 8 Lg - [id number] Implanted:Qty: 1 on 03/03/2023 by Cholo Shah MD at OR [facility] Right: Knee ROSALIA : ORTHOPAEDICS 07/19/2023 6485-2-308 / / [id number] Knee Hrhk Mod Rot Hng Bushing - [id number] Implanted:Qty: 1 on 03/03/2023 by Cholo Shah MD at OR [facility] Right: Knee ROSALIA : ORTHOPAEDICS 01/09/2027 6481-2-110 / / [id number] Knee Hrhk Mod Rot Hng Bushing - [id number] Implanted:Qty: 1 on 03/03/2023 by Cholo Shah MD at OR [facility] Right: Knee ROSALIA : ORTHOPAEDICS 11/21/2026 6481-2-110 / / [id number] Knee Stem Crv Mod Mrs 97c743 - [id number] Implanted:Qty: 1 on 03/03/2023 by Cholo Shah MD at OR [facility] Right: Knee ROSALIA : ORTHOPAEDICS 10/02/2026 6485-3-715 / / [id number] Tib Mrh Cross Bear Long Xs/Xl - [id number] Implanted:Qty: 1 on 03/03/2023 by Cholo Shah MD at OR [facility] Right: Knee ROSALIA : ORTHOPAEDICS 12/05/2025 6481-2-103 / / [id number] Knee Tib Bumper Rot Hng Nue - [id number] Implanted:Qty: 1 on 03/03/2023 by Cholo Shah MD at OR [facility] Right: Knee ROSALIA : ORTHOPAEDICS 07/15/2027 6481-2-130 / / [id number] Distal Femoral Component Implanted:Qty: 1 on 03/03/2023 by Cholo Shah MD at OR [facility] Right: Knee ROSALIA : ORTHOPAEDICS 08/23/2023 6495-2-040 / / [id number] Knee Axle Hrhk Rot Mod Hng - [id number] Implanted:Qty: 1 on 03/03/2023 by Cholo Shah MD at OR [facility] Right: Knee ROSALIA : ORTHOPAEDICS 06/30/2027 6481-2-120 / / [id number] Restrictors Med Cmnt Z516-5686 - [id number] Implanted:Qty: 1 on 03/03/2023 by Cholo Shah MD at OR [facility] Right: Knee ROSALIA : ORTHOPAEDICS 11/18/2027 L937-9394 / / Cement Bone Full Mix Surg Simp - [id number] Implanted:Qty: 1 on 03/03/2023 by Cholo Shah MD at OR [facility] Right: Knee ROSALIA : ORTHOPAEDICS 07/09/2025 6191-1-010 / / [id number] Cement Bone Full Mix Surg Simp - [id number] Implanted:Qty: 1 on 03/03/2023 by Cholo Shah MD at OR [facility] Right: Knee ROSALIA : ORTHOPAEDICS 06/08/2025 6191-1-010 / / [id number] Cement Bone Full Mix Surg Simp - [id number] Implanted:Qty: 1 on 03/03/2023 by Cholo Shah MD at OR [facility] Right: Knee ROSALIA : ORTHOPAEDICS 05/08/2025 6191-1-010 / / [id number] Knee Fem Gmrs Dis Std R - [id number] Implanted:Qty: 1 on 03/10/2023 by Cholo Shah MD at OR [facility] Right: Knee ROSALIA : ORTHOPAEDICS 10/21/2027 6495-2-040 / / [id number] Knee Hrhk Mod Rot Hng Bushing - [id number] Implanted:Qty: 1 on 03/10/2023 by Cholo Shah MD at OR [facility] Right: Knee ROSALIA : ORTHOPAEDICS 01/29/2027 6481-2-110 / / [id number] Knee Axle Hrhk Rot Mod Hng - [id number] Implanted:Qty: 1 on 03/10/2023 by Cholo Shah MD at OR [facility] Right: Knee ROSALIA : ORTHOPAEDICS 09/15/2027 6481-2-120 / / [id number] Tib Mrh Cross Bear Long Xs/Xl - [id number] Implanted:Qty: 1 on 03/10/2023 by Cholo Shah MD at OR [facility] Right: Knee ROSALIA : ORTHOPAEDICS 09/30/2027 6481-2-103 / / [id number] Knee Hrhk Mod Rot Hng Bushing - [id number] Implanted:Qty: 1 on 03/10/2023 by Cholo Shah MD at OR [facility] Right: Knee ROSALIA : ORTHOPAEDICS 04/24/2027 6481-2-110 / / [id number] Knee Tib Bumper Rot Hng Nue - [id number] Implanted:Qty: 1 on 03/10/2023 by Cholo Shah MD at OR [facility] Right: Knee ROSALIA : ORTHOPAEDICS 10/15/2027 6481-2-130 / / [id number] documented as of this encounter Visit Diagnoses Diagnosis Abnormal vital signs- Primary Choledocholithiasis Calculus of bile duct without mention of cholecystitis or obstruction documented in this encounter Advance Directives Documents on File Type Date Recorded Patient Illusionist Expl 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 Care Teams Science Consultant Relationship Specialty Start Date End Date Kat Hawthorne DO [address] [place] [address] PCP - General Family Medicine 08/20/22 documented as of this encounter
--- OUTSIDE RECORDS SUMMARY | 2024-04-16 12:35 | External Medical Summary | Summary of Care ---
Author Name Unknown Organization [facility] Address [address] [place] [address] Phone [phone] Care Team Providers Care Delivery Architect Name Role Phone Kat Hawthorne DO Primary Care Provider Reason for Visit * Reason Onset Date Comments Home Monitoring Orders Only 03/09/2024 Encounter Details Date Type Department Care Team (Late st Contact Info) Description 03/09/2024 Home Monitoring [facility] [address] [place] [address] Kat Hawthoren DO [address] [place] [address] Abnormal vital signs* Allergies Active Allergy Reactions [...] Active oxygen IN GASIndications:ILD (interstitial lung disease) ([facility]),Chronic respiratory failure with hypoxia (HCC) [...] mouth in the morning. 0 Active Nystatin 319945 UNIT/GM External Powder (Nystop) Apply topically to [...] 100 mg BID x 14 days Old [place] (myocardial infarction) 04/14/2023 Hyperlipidemia 04/14/2023 Hereditary hemolytic [...] mRNA, LNP-s, No Pre serve, 2-Dose Series ([place]) 08/23/2021,01/26/2021,01/05/2021 Pneumococcal Conjugate Vacc, 13 Valent (Prevnar) [...] as of this encounter Progress Notes * Naomi Sepulveda OSA - 03/09/2024 8:20 AM EDT Patient has been successfully enrolled to the [id number] program and will be provided with the Glarity Wearable device to facilitate their participation in remote monitoring: [facility] wearable only Patient has been oriented to remote patient monitoring by their Otolaryngology Physician. The case packer and sealer has also provided the patient with instruction and education regarding the program. Current health to assist with initial device set-up. Delivery Method: On-Hand Kit Patient understands that this monitoring should not be used as a replacement for emergency and/or urgent care. If patient experiences any urgent symptoms, they are aware to call their review manager for additional instructions. In emergency situations, they will either call 911 or report directly to the ED for further evaluation. documented in this encounter Plan of Treatment Upcoming Encounters Date Type Department Care Team (Latest Contact Info) Description 4 9:30 AM EDT Home Visit Care Coordination and Integration [address] [place] [address] Cinthya Weber, Community [facility] Underground Distribution Engineer [address] [place] [address] 4 12:10 PM EDT Office Visit [facility] [address] [place] [address] Kat Hawthorne DO [address] [place] [address] 4 10:45 AM EDT Hospital En[place] [facility], HFAM 1, [address] [place] [address] Fish Ahmadi MD [address] [place] [address] 4 10:45 AM EDT - 4 12:30 PM EDT Surgery [place] [facility] Endoscopy Suite, AM 1, [address] [place] [address] Fish Ahmadi MD [address] [place] [address] ESOPHAGOGASTRODUODENOSCOPY (EGD), FLEXIBLE, TRANSORAL, ENDOSCOPIC ULTRASOUND 4 10:30 AM EDT Office Visit Orthopaedics, [place] [address] [place] [address] Cholo Shah MD [address] [place] [address] 4 10:30 AM EDT Office Visit Gynecology/Oncolo gy, [place] [address] [place] [address] Jeanie Guntre PA-C [address], [place] [id number] 4 11:00 AM EDT Office Visit Cardiology, [facility] [address] [place] [address] Shilpi Bailey PA-C [address] [place] [address] Scheduled Procedures Name Priority Associated Diagnoses [...] COPD 03/10/2024 03/10/2023 CKD PHOS USE SMARTSET 39868 03/16/2024 05/0 06/2023, 03/15/2023, 03/14/2023, Additional history exists GFR 08/16/2024 02/15/2024, 11/11, 09/17/2023, Additional history exists Mammogram 12/09/2024 12/09/2023, 04/10, 03/07/2021, Additional history exists CKD HGB USE SMARTSET 37425 02/14/202502/14, 02/15/2024, 12/09/2023, Additional history exists Lipid [...] this encounter Medical Devices Implanted Type Area Human Resources Trainer Device Identifier Shelf Expiration Date Model / Serial / Lot Cement Bone Simplex Hv & G - [id number] Implanted:Qty: 2 on 01/05/2023 by Harley Nguyen DO at OR [facility] Left: Knee ROSALIA : ORTHOPAEDICS 06/08/2024 6195-1-010 / / [id number] Component Femoral Size 5 - [id number] Implanted:Qty: 1 on 01/05/2023 by Harley Nguyen DO at OR [facility] Left: Knee ROSALIA : ORTHOPAEDICS 08/09/2026 5510-F-501 / / [id number] Knee Tria Syetric X3 10x36 - [id number] Implanted:Qty: 1 on 01/05/2023 by Harley Nguyen DO at OR [facility] Left: Knee ROSALIA : ORTHOPAEDICS 09/24/2027 5550-G-360 -E / / [id number] Baseplate Tib 5 Knee - [id number] Implanted:Qty: 1 on 01/05/2023 by Harley Nguyen DO at OR [facility] Left: Knee ROSALIA : ORTHOPAEDICS 12/14/2027 5521-B-500 / / [id number] Knee X3 Ins Pos Cs Sz5 9 - [id number] Implanted:Qty: 1 on 01/05/2023 by Harley Nguyen DO at OR [facility] Left: Knee ROSALIA : ORTHOPAEDICS 11/19/2027 5531-G-509 -E / / [id number] Cement Bone Full Mix Surg Simp - [id number] Implanted:Qty: 1 on 03/03/2023 by Cholo Shah MD [place] [facility] Right: Knee ROSALIA : ORTHOPAEDICS 05/08/2025 6191-1-010 / / [id number] Knee Tib Comp Poly Krh 8 Lg - [id number] Implanted:Qty: 1 on 03/03/2023 by Cholo Shah MD [place] [facility] [place] Knee ROSALIA : ORTHOPAEDICS 07/19/2023 6485-2-308 / / [id number] Knee Hrhk Mod Rot Hng Bushing - [id number] Implanted:Qty: 1 on 03/03/2023 by Cholo Shah MD [place] [facility] [place] Knee ROSALIA : ORTHOPAEDICS 01/09/2027 6481-2-110 / / [id number] Knee Hrhk Mod Rot Hng Bushing - [id number] Implanted:Qty: 1 on 03/03/2023 by Cholo Shah MD [place] [facility] [place]: Knee ROSALIA : ORTHOPAEDICS 11/21/2026 6481-2-110 / / [id number] Knee Stem Crv Mod Mrs 40h758 - [id number] Implanted:Qty: 1 on 03/03/2023 by Cholo Shah MD [place] [facility] [place]: Knee ROSALIA : ORTHOPAEDICS 10/02/2026 6485-3-715 / / [id number] Tib Mrh Cross Bear Long Xs/Xl - [id number] Implanted:Qty: 1 on 03/03/2023 by Cholo Shah MD at [place] [facility] [place]: Knee ROSALIA : ORTHOPAEDICS 12/05/2025 6481-2-103 / / [id number] Knee Tib Bumper Rot Hng Nue - [id number] Implanted:Qty: 1 on 03/03/2023 by Cholo Shah MD [place] [facility] Right: Knee ROSALIA : ORTHOPAEDICS 07/15/2027 6481-2-130 / / [id number] Distal Femoral Component Implanted:Qty: 1 on 03/03/2023 by Cholo Shah MD [place] [facility] [place]: Knee ROSALIA : ORTHOPAEDICS 08/23/2023 6495-2-040 / / [id number] Knee Axle Hrhk Rot Mod Hng - [id number] Implanted:Qty: 1 on 03/03/2023 by Cholo Shah MD [place] [facility] [place]: Knee ROSALIA : ORTHOPAEDICS 06/30/2027 6481-2-120 / / [id number] Restrictors Med Cmnt Q908-4346 - [id number] Implanted:Qty: 1 on 03/03/2023 by Cholo Shah MD [place] [facility] Right: Knee ROSALIA : ORTHOPAEDICS 11/18/2027 S533-2146 / / Cement Bone Full Mix Surg Simp - [id number] Implanted:Qty: 1 on 03/03/2023 by Cholo Shah MD [place] [facility] [place]: Knee ROSALIA : ORTHOPAEDICS 07/09/2025 6191-1-010 / / [id number] Cement Bone Full Mix Surg Simp - [id number] Implanted:Qty: 1 on 03/03/2023 by Cholo Shah MD [place] [facility] Right: Knee ROSALIA : ORTHOPAEDICS 06/08/2025 6191-1-010 / / [id number] Cement Bone Full Mix Surg Simp - [id number] Implanted:Qty: 1 on 03/03/2023 by Cholo Shah MD [place] [facility] [place] Knee ROSALIA : ORTHOPAEDICS 05/08/2025 6191-1-010 / / [id number] Knee Fem Gmrs Dis Std R - [id number] Implanted:Qty: 1 on 03/10/2023 by Cholo Shah MD [place] [facility] [place] Knee ROSALIA : ORTHOPAEDICS 10/21/2027 6495-2-040 / / [id number] Knee Hrhk Mod Rot Hng Bushing - [id number] Implanted:Qty: 1 on 03/10/2023 by Chool Shah MD [place] [facility] [place]: Knee ROSALIA : ORTHOPAEDICS 01/29/2027 6481-2-110 / / [id number] Knee Axle Hrhk Rot Mod Hng - [id number] Implanted:Qty: 1 on 03/10/2023 by Cholo Shah MD [place] [facility] [place]: Knee ROSALIA : ORTHOPAEDICS 09/15/2027 6481-2-120 / / [id number] Tib Mrh Cross Bear Long Xs/Xl - [id number] Implanted:Qty: 1 on 03/10/2023 by Cholo Shah MD [place] [facility] [place]: Knee ROSALIA : ORTHOPAEDICS 09/30/2027 6481-2-103 / / [id number] Knee Hrhk Mod Rot Hng Bushing - [id number] Implanted:Qty: 1 on 03/10/2023 by Cholo Shah MD [place] [facility] [place]: Knee ROSALIA : ORTHOPAEDICS 04/24/2027 6481-2-110 / / [id number] Knee Tib Bumper Rot Hng Nue - [id number] Implanted:Qty: 1 on 03/10/2023 by Cholo Shah MD [place] [facility] Right: Knee ROSALIA : ORTHOPAEDICS 10/15/2027 6481-2-130 / / [id number] documented as of this encounter Visit Diagnoses Diagnosis Abnormal vital signs- Primary Choledocholithiasis Calculus of bile duct without mention of cholecystitis or obstruction documented in this encounter Advance Directives Documents on File Type Date Recorded Patient Spray Unit Feeder Expl 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 Care Teams Delivery Architect Relationship Specialty Start Date End Date Kat Hawthorne DO [address] [place] [facility] [place] [address] PCP - General Family Medicine 08/20/22 documented as of this encounter
--- OUTSIDE RECORDS SUMMARY | 2024-04-16 12:35 | External Medical Summary | Summary of Care ---
Author Name Unknown Organization [facility] Address [address] [place] [address] Phone [phone] Care Team Providers Care Computer Aided Design Drafter Name Role Phone Kat Hawthorne DO Primary Care Provider Reason for Visit * Reason Onset Date Comments Health Maintenance 02/23/2024 Encounter Details Date Type Department Care Team (Late st Contact Info) Description 02/23/2024 Telephone [facility] [address] [place] [address] Kat Hawthorne DO [address] [place] [address] Health Maintenance Allergies Active Allergy Reactions Criticality Noted [...] as of this encounter (statuses as of 02/23/2024) Medications Medication Sig Dispensed Refills Start Date [...] Active oxygen IN GASIndications:ILD (interstitial lung disease) ([facility]),Chronic respiratory failure with hypoxia (HCC) Use 2 LPM with exertion and 3 LPM with sleep. Needs small portable tanks, standing concentrator DME: [facility] 1 Each 0 07/02/2022 Active Proventil HFA 108 (90 Base) MCG/ACT Inhalation Aerosol SolutionIndications: ILD (interstitial lung disease) ([facility]) Inhale by mouth 2 [...] mouth in the morning. 0 Active Nystatin 697637 UNIT/GM External Powder (Nystop) Apply topically to [...] the morning. 90 Tablet 3 07/16/2023 Active Bumetanide 2 MG Oral Tablet Take 1 Tablet by mouth 2 times a day in the morning and at noon. 60 Tablet 5 09/17/2023 Active Amoxicillin 500 MG Oral Capsule (Amoxil) [...] as needed for Anxiety. 60 Tablet 0 02/01/2024 Active documented as of this encounter (statuses as of 02/23/2024) Active Problems Problem Noted Date Diagnosed Date [...] & Plan: S/P wound vac placement at [facility] On doxycycline 100 mg BID x 14 days Old [place] (myocardial infarction) 04/14/2023 Hyperlipidemia 04/14/2023 Hereditary hemolytic [...] as of this encounter (statuses as of 02/23/2024) Resolved Problems Problem Noted Date Diagnosed Date [...] as of this encounter (statuses as of 02/23/2024) Immunizations Name Administration Dates Next Due COVID-19 mRNA, LNP-s, No Pre serve, 2-Dose Series ([place]) 08/23/2021,01/26/2021,01/05/2021 Pneumococcal Conjugate Vacc, 13 Valent (Prevnar) [...] encounter Miscellaneous Notes * Telephone Encounter - Pricilla Motta LPN - 02/23/2024 1:06 PM EDT Care Gaps Comprehensive Care Outreach Last Office/Telemedicine Visit: 10/19/2023 (in office), 12/04/2020 (telemedicine) Next Office Visit: 03/30/2024 Hemoglobin AIC Results: Lab Results Component Value Date/Time HEMOGLOBIN A1C - [facility] 5.8 (H) 12/18/2022 11:51 AM HEMOGLOBIN A1C - [facility] 6.2 05/27/2018 09:52 AM HEMOGLOBIN A1C - [facility] 6.4 10/21/2016 11:12 AM HEMOGLOBIN A1C - [facility] 6.4 07/29/2016 04:45 PM BP Readings from Last 1 Encounters: 02/19/24 126/68 Reviewed Health Maintenance below: Health Maintenance Topic Date Due DXA Scan Never done Alpha-1 Antitrypsin Never done Depression Screening 09/11/2021 Albumin/Creatinine Ratio 09/04/2022 COVID-19 Vaccine ( season) 2023 HbA1c 12/18/2023 O2 ASSESSMENT COMPLETED IN PAST YEAR FOR COPD 03/10/2024 CKD PHOS USE SMARTSET 87402 03/16/2024 Labs ordered will walk in [facility] Care Gap Outreach Action Taken: Spoke to patient documented in this encounter Plan of Treatment Upcoming Encounters Date Type Department Care Team (Latest Contact Info) Description 03/08/2024 10:00 AM EDT Home Visit [facility] [place] [address] [address] July Diaz, RN [address] [address] 03/30/2024 12:10 PM EDT Office Visit [facility] [address] [place] [facility] [id number] Kat Hawthorne DO [address] [place] [facility] [address] 04/18/2024 10:45 AM EDT Hospital Encounter [place]O [facility], Endoscopy Suite, HFAM 1, [address] [place] [facility] [place] [address] Fish Ahmadi MD [address] [place] [facility] [address] 04/18/2024 10:45 AM EDT - 04/18/2024 12:30 PM EDT Surgery ENDO [facility], Endoscopy Suite, HFAM 1, [address] [place] [facility] [place] [address] Fish Ahmadi MD [address] [place] [facility] [address] ESOPHAGOGASTRODUODENOSCOPY (EGD), FLEXIBLE, TRANSORAL, ENDOSCOPIC ULTRASOUND 05/05/2024 10:30 AM EDT Office Visit Orthopaedics, [place] [address] [facility], [place] [id number] Cholo Shah MD [address] [facility] [address] 05/10/2024 10:30 AM EDT Office Visit Gynecology/Oncol ogy, [place] [address] [place] [facility] [address] Jeanie Gunter PA-C [address] [facility], [place] [address] 08/29/2024 11:00 AM EDT Office Visit Cardiology, [facility] [address] [place] [address] Shilpi Bailey PA-C [address] [place] [address] Scheduled Orders Name Type Priority Associated Diagnoses Orde r Schedule HEMOGLOBIN A1C Lab Routine Prediabetes Expected: 03/24/2024, Expires: 02/22/2025 PHOSPHORUS Lab Routine Chronic kidney disease, unspecified CKD stage Expected: 03/24/2024, Expires: 02/22/2025 ALBUMIN / CREATININE RATIO, URINE Lab Routine Chronic kidney disease, unspecified CKD stage Expected: 03/24/2024 (Approximate), Expires: 02/22/2025 Scheduled Procedures Name Priority Associated Diagnoses Date/Ti id ESOPHAGOGASTRODUODENOSCOPY ( EGD), FLEXIBLE, TRANSORAL, ENDOSCOPIC ULTRASOUND [...] COPD 03/10/2024 03/10/2023 CKD PHOS USE SMARTSET 63880 03/16/2024 05/0 06/2023, 03/15/2023, 03/14/2023, Additional history exists GFR 08/16/2024 02/15/2024, 11/11, 09/17/2023, Additional history exists Mammogram 12/09/2024 12/09/2023, 06/12/2021, 03/07/2021, Additional history exists CKD HGB USE SMARTSET 24904 02/14/202502/14, 02/15/2024, 12/09/2023, Additional history exists Lipid [...] this encounter Medical Devices Implanted Type Area Bar Machine Operator Device Identifier Shelf Expiration Date Model / Serial / Lot Cement Bone Simplex Hv & G - [id number] Implanted:Qty: 2 on 01/05/2023 by Harley Nguyen DO at OR [facility] Left: Knee ROSALIA : ORTHOPAEDICS 06/08/2024 6195-1-010 / / [id number] Component Femoral Size 5 - [id number] Implanted:Qty: 1 on 01/05/2023 by Harley Nguyen DO at OR [facility] Left: Knee ROSALIA : ORTHOPAEDICS 08/09/2026 5510-F-501 / / [id number] Knee Tria Syetric X3 10x36 - [id number] Implanted:Qty: 1 on 01/05/2023 by Harley Nguyen DO at OR [facility] Left: Knee ROSALIA : ORTHOPAEDICS 09/24/2027 5550-G-360 -E / / [id number] Baseplate Tib 5 Knee - [id number] Implanted:Qty: 1 on 01/05/2023 by Harley Nguyen DO at OR [facility] Left: Knee ROSALIA : ORTHOPAEDICS 12/14/2027 5521-B-500 / / [id number] Knee X3 Ins Pos Cs Sz5 9 - [id number] Implanted:Qty: 1 on 01/05/2023 by Harley Nguyen DO at OR [facility] Left: Knee ROSALIA : ORTHOPAEDICS 11/19/2027 5531-G-509 -E / / [id number] Cement Bone Full Mix Surg Simp - [id number] Implanted:Qty: 1 on 03/03/2023 by Cholo Shah MD at OR [facility] Right: Knee ROSALIA : ORTHOPAEDICS 05/08/2025 6191-1-010 / / [id number] Knee Tib Comp Poly Krh 8 Lg - [id number] Implanted:Qty: 1 on 03/03/2023 by Cholo Shah MD at [place] [facility] Right: Knee ROSALIA : ORTHOPAEDICS 07/19/2023 6485-2-308 / / [id number] Knee Hrhk Mod Rot Hng Bushing - [id number] Implanted:Qty: 1 on 03/03/2023 by Cholo Shah MD at [place] [facility] Right: Knee ROSALIA : ORTHOPAEDICS 01/09/2027 6481-2-110 / / [id number] Knee Hrhk Mod Rot Hng Bushing - [id number] Implanted:Qty: 1 on 03/03/2023 by Cholo Shah MD at [place] [facility] Right: Knee ROSALIA : ORTHOPAEDICS 11/21/2026 6481-2-110 / / [id number] Knee Stem Crv Mod Mrs 12c433 - [id number] Implanted:Qty: 1 on 03/03/2023 by Cholo Shah MD at [place] [facility] Right: Knee ROSALIA : ORTHOPAEDICS 10/02/2026 6485-3-715 / / [id number] Tib Mrh Cross Bear Long Xs/Xl - [id number] Implanted:Qty: 1 on 03/03/2023 by Cholo Shah MD at [place] [facility] Right: Knee ROSALIA : ORTHOPAEDICS 12/05/2025 6481-2-103 / / [id number] Knee Tib Bumper Rot Hng Nue - [id number] Implanted:Qty: 1 on 03/03/2023 by Cholo Shah MD at [place] [facility] Right: Knee ROSALIA : ORTHOPAEDICS 07/15/2027 6481-2-130 / / [id number] Distal Femoral Component Implanted:Qty: 1 on 03/03/2023 by Cholo Shah MD at OR [facility] Right: Knee ROSALIA : ORTHOPAEDICS 08/23/2023 6495-2-040 / / [id number] Knee Axle Hrhk Rot Mod Hng - [id number] Implanted:Qty: 1 on 03/03/2023 by Cholo Shah MD at [place] [facility] Right: Knee ROSALIA : ORTHOPAEDICS 06/30/2027 6481-2-120 / / [id number] Restrictors Med Cmnt D352-5065 - [id number] Implanted:Qty: 1 on 03/03/2023 by Cholo Shah MD at [place] [facility] Right: Knee ROSALIA : ORTHOPAEDICS 11/18/2027 B524-7686 / / Cement Bone Full Mix Surg Simp - [id number] Implanted:Qty: 1 on 03/03/2023 by Cholo Shah MD at OR [facility] Right: Knee ROSALIA : ORTHOPAEDICS 07/09/2025 6191-1-010 / / [id number] Cement Bone Full Mix Surg Simp - [id number] Implanted:Qty: 1 on 03/03/2023 by Cholo Shah MD at [place] [facility] Right: Knee ROSALIA : ORTHOPAEDICS 06/08/2025 6191-1-010 / / [id number] Cement Bone Full Mix Surg Simp - [id number] Implanted:Qty: 1 on 03/03/2023 by Cholo Shah MD at OR [facility] Right: Knee ROSALIA : ORTHOPAEDICS 05/08/2025 6191-1-010 / / [id number] Knee Fem Gmrs Dis Std R - [id number] Implanted:Qty: 1 on 03/10/2023 by Cholo Shah MD at OR [facility] Right: Knee ROSALIA : ORTHOPAEDICS 10/21/2027 6495-2-040 / / [id number] Knee Hrhk Mod Rot Hng Bushing - [id number] Implanted:Qty: 1 on 03/10/2023 by Cholo Shah MD at OR [facility] Right: Knee ROSALIA : ORTHOPAEDICS 01/29/2027 6481-2-110 / / [id number] Knee Axle Hrhk Rot Mod Hng - [id number] Implanted:Qty: 1 on 03/10/2023 by Cholo Shah MD at OR [facility] Right: Knee ROSALIA : ORTHOPAEDICS 09/15/2027 6481-2-120 / / [id number] Tib Mrh Cross Bear Long Xs/Xl - [id number] Implanted:Qty: 1 on 03/10/2023 by Cholo Shah MD at OR [facility] Right: Knee ROSALIA : ORTHOPAEDICS 09/30/2027 6481-2-103 / / [id number] Knee Hrhk Mod Rot Hng Bushing - [id number] Implanted:Qty: 1 on 03/10/2023 by Cholo Shah MD at OR [facility] Right: Knee ROSALIA : ORTHOPAEDICS 04/24/2027 6481-2-110 / / [id number] Knee Tib Bumper Rot Hng Nue - [id number] Implanted:Qty: 1 on 03/10/2023 by Cholo Shah MD at OR [facility] Right: Knee ROSALIA : ORTHOPAEDICS 10/15/2027 6481-2-130 / / [id number] documented as of this encounter Visit Diagnoses Diagnosis Diabetes mellitus screening- Primary Screening for diabetes mellitus Chronic kidney disease, unspecified CKD stage Prediabetes Other abnormal glucose Choledocholithiasis Calculus of bile duct without mention of cholecystitis or obstruction documented in this encounter Advance Directives Documents on File Type Date Recorded Patient Certified Master Safe Technician Expl 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 Care Teams Computer Aided Design Drafter Relationship Specialty Start Date End Date Kat Hawthorne DO [address] [place] [facility] [place] [address] PCP - General Family Medicine 08/20/22 documented as of this encounter
--- OUTSIDE RECORDS SUMMARY | 2024-04-16 12:35 | External Medical Summary | Summary of Care ---
Author Name Unknown Organization [facility] Address [address] [place] [address] Phone [phone] Care Team Providers Care Natural Resources Engineer Name Role Phone Antonia Ledezma DO Primary Care Provider [phone] Reason for Visit * Reason Comments eRx-Medication Refill Encounter Details Date Type Department Care Team (Late st Contact Info) Description 03/04/2024 Refill [facility] [address] [place] [address] Antonia Ledezma DO [address] [place] [address] Allergies Active Allergy Reactions Criticality Noted Date [...] as of this encounter (statuses as of 03/07/2024) Medications Medication Sig Dispensed Refills Start Date [...] Active oxygen IN GASIndications:ILD (interstitial lung disease) ([facility]),Chronic respiratory failure with hypoxia ([facility]) Use 2 LPM with exertion and 3 LPM with sleep. Needs small portable tanks, standing concentrator DME: [facility] 1 Each 0 2 Active Proventil HFA 108 (90 Base) MCG/ACT Inhalation Aerosol SolutionIndication s:ILD (interstitial lung disease) ([facility]) Inhale by mouth 2 Puffs [...] mouth in the morning. 0 Active Nystatin 478833 UNIT/GM External Powder (Nystop) Apply topically to [...] until gone. 15 Tablet 3 3 Active amLODIPine Besylate 5 MG Oral Tablet (Norvasc) Take 1 Tablet by mouth in the morning. 90 Tablet 1 4 Active hydrOXYzine HCl 25 MG Oral TabletIndications: Pruritus TAKE 1 TABLET BY MOUTH AT BEDTIME NEEDED FOR ITCHING 30 Tablet 3 4 Active Fosfomycin Tromethamine 3 GM Oral [...] AT NOON) 60 Tablet 5 4 Active Bumetanide 2 MG Oral Tablet Take 1 Tablet by mouth 2 times a day in the morning and at noon. 60 Tablet 5 3 03/07/20 24 Discontinued documented as of this encounter (statuses as of 03/07/2024) Active Problems Problem Noted Date Diagnosed Date [...] & Plan: S/P wound vac placement at [facility] On doxycycline 100 mg BID x 14 days Old [place] (myocardial infarction) 04/14/2023 Hyperlipidemia 04/14/2023 Hereditary hemolytic [...] as of this encounter (statuses as of 03/07/2024) Resolved Problems Problem Noted Date Diagnosed Date [...] as of this encounter (statuses as of 03/07/2024) Immunizations Name Administration Dates Next Due COVID-19 mRNA, LNP-s, No Pre serve, 2-Dose Series (needmade) 08/23/2021,01/26/2021,01/05/2021 Pneumococcal Conjugate Vacc, 13 Valent (Prevnar) [...] Miscellaneous Notes * Telephone Encounter - Antonia Ledezma DO - 03/07/2024 9:58 AM EDTSigned Prescriptions: Disp Refills Bumetanide 2 MG Oral Tablet 60 Tab*5 Sig: TAKE 1 TABLET BY MOUTH TWICE DAILY (IN THE MORNING AND AT NOON) Authorizing Provider: ANTONIA LEDEZMA * Telephone Encounter - Bailey Soto [facility] - 03/05/2024 4:20 PM EDTPending Prescriptions: Disp Refills Bumetanide 2 MG Oral Tablet 60 Tab*5 Sig: TAKE 1 TABLET BY MOUTH TWICE DAILY (IN THE MORNING AND AT NOON) * Telephone Encounter - Bailey Soto RP - 03/05/2024 4:20 PM EDT Refill pharmacists currently not authorized to approve refills for this class of medication per refill protocol. Please approve if appropriate. Pending Prescriptions: Disp Refills Bumetanide 2 MG Oral Tablet 60 Tab*5 Sig: TAKE 1 TABLET BY MOUTH TWICE DAILY (IN THE MORNING AND AT NOON) 10/19/2023 (in office), 12/04/2020 (telemedicine) 03/30/2024 If no future appointments scheduled, and last appointment is greater than a year ago, please schedule patient for a follow-up appointment Last date the medication was ordered: 09/17/23 Pharmacy: [facility] [address] [place] [address] GISSELLE CHRISTIANSON Is this request for a controlled substance? no Urine Drug Screen: Results for orders placed [...] found in Results Review. Patient Phone Numbers [employer] [phone] Labs: Lab Results Component Value Date/Time CREAT 1.0 02/15/2024 12:25 PM CREAT 0.84 05/26/2023 12:00 AM CREAT 0.9 11/28/2020 08:44 AM POTASSIUM 3.7 02/15/2024 12:25 PM POTASSIUM 3.9 05/26/2023 12:00 AM POTASSIUM 5.1 11/28/2020 08:44 AM TSH 3.15 12/09/2019 09:55 AM LDLCALC 76 08/02/2019 11:00 AM LDLDIRECT 97 09/03/2022 01:57 PM ALT 49 (H) 02/15/2024 12:25 PM ALT 25 11/28/2020 08:44 AM HGBA1C 5.8 (H) 12/18/2022 11:51 AM HGBA1C 6.2 05/27/2018 09:52 AM documented in this encounter Plan of Treatment Upcoming Encounters Date Type Department Care Team (Latest Contact Info) Description 03/08/2024 10:00 AM EDT [facility] Visit [facility] [address] [facility] [place] [address] July Diaz RN [address] [facility] [place] [address] 03/30/2024 12:10 PM EDT Office Visit [facility] [address] [place] [address] Antonia Ledezma DO [address] [place] [address] 04/18/2024 10:45 AM EDT Hospital Encounter ENDO [facility], Endoscopy Suite, HFAM 1, [address] [place] [address] Fish Ahmadi MD [address] [place] [address] 04/18/2024 10:45 AM EDT - 04/18/2024 12:30 PM EDT Surgery ENDO [facility], Endoscopy Suite, HFAM 1, [address] [place] [address] Fish Ahmadi MD [address] [place] [address] ESOPHAGOGASTRODUODENOSCOPY (EGD), FLEXIBLE, TRANSORAL, ENDOSCOPIC ULTRASOUND 05/05/2024 10:30 AM EDT Office Visit Orthopaedics, [place] [address] [place] [address] Cholo Shah MD [address] [place] [address] 05/10/2024 10:30 AM EDT Office Visit Gynecology/Oncol ogy, [place] [address] [place] [address] Jeanie Gunter PA-C [address] [place], [place] [id number] 08/29/2024 11:00 AM EDT Office Visit Cardiology, [facility] [address] [place] [address] Shilpi Bailey PA-C [address] [place] [address] Scheduled Procedures Name Priority Associated Diagnoses Date/Ti [...] COPD 03/10/2024 03/10/2023 CKD PHOS USE SMARTSET 83259 03/16/2024 05/0 06/2023, 03/15/2023, 03/14/2023, Additional history exists GFR 08/16/2024 02/15/2024, 11/11, 09/17/2023, Additional history exists Mammogram 12/09/2024 12/09/2023, 04/10, 03/07/2021, Additional history exists CKD HGB USE SMARTSET 63672 02/14/202502/14, 02/15/2024, 12/09/2023, Additional history exists Lipid [...] this encounter Medical Devices Implanted Type Area Slunk Skin Curer Device Identifier Shelf Expiration Date Model / Serial / Lot Cement Bone Simplex Hv & G - [id number] Implanted:Qty: 2 on 01/05/2023 by Harley Nguyen, DO at OR [facility] Left: Knee ROSALIA : ORTHOPAEDICS 06/08/2024 6195-1-010 / / [id number] Femoral Size 5 - [id number] Implanted:Qty: 1 on 01/05/2023 by Harley Nguyen DO at OR [facility] Left: Knee ROSALIA : ORTHOPAEDICS 08/09/2026 5510-F-501 / / [id number] Knee Tria Syetric X3 10x36 - [id number] Implanted:Qty: 1 on 01/05/2023 by Harley Nguyen DO at OR [facility] Left: Knee ROSALIA : ORTHOPAEDICS 09/24/2027 5550-G-360 -E / / [id number] Baseplate Tib 5 Knee - [id number] Implanted:Qty: 1 on 01/05/2023 by Harley Nguyen DO at OR [facility] Left: Knee ROSALIA : ORTHOPAEDICS 12/14/2027 5521-B-500 / / [id number] Knee X3 Ins Pos Cs Sz5 9 - [id number] Implanted:Qty: 1 on 01/05/2023 by Harley Nguyen DO at OR [facility] Left: Knee ROSALIA : ORTHOPAEDICS 11/19/2027 5531-G-509 -E / / [id number] Cement Bone Full Mix Surg Simp - [id number] Implanted:Qty: 1 on 03/03/2023 by Cholo Shah MD at OR [facility] Right: Knee ROSALIA : ORTHOPAEDICS 05/08/2025 6191-1-010 / / [id number] Knee Tib Comp Poly Krh 8 Lg - [id number] Implanted:Qty: 1 on 03/03/2023 by Cholo Shah MD at OR [facility] Right: Knee ROS[employer]IA : ORTHOPAEDICS 07/19/2023 6485-2-308 / / [id number] Knee Hrhk Mod Rot Hng Bushing - [id number] Implanted:Qty: 1 on 03/03/2023 by Cholo Shah MD at OR [facility] Right: Knee ROSALIA : ORTHOPAEDICS 01/09/2027 6481-2-110 / / [id number] Knee Hrhk Mod Rot Hng Bushing - [id number] Implanted:Qty: 1 on 03/03/2023 by Cholo Shah MD at OR [facility] Right: Knee ROS[employer]IA : ORTHOPAEDICS 11/21/2026 6481-2-110 / / [id number] Knee Stem Crv Mod Mrs 04d421 - [id number] Implanted:Qty: 1 on 03/03/2023 by Cholo Shah MD at OR [facility] Right: Knee ROS[employer]IA : ORTHOPAEDICS 10/02/2026 6485-3-715 / / [id number] Tib Mrh Cross Bear Long Xs/Xl - [id number] Implanted:Qty: 1 on 03/03/2023 by Cholo Shah MD at OR [facility] Right: Knee ROS[employer]IA : ORTHOPAEDICS 12/05/2025 6481-2-103 / / [id number] Knee Tib Bumper Rot Hng Nue - [id number] Implanted:Qty: 1 on 03/03/2023 by Cholo Shha MD at OR [facility] Right: Knee ROSALIA : ORTHOPAEDICS 07/15/2027 6481-2-130 / / [id number] Distal Femoral Component Implanted:Qty: 1 on 03/03/2023 by Cholo Shah MD at OR [facility] Right: Knee ROS[employer]IA : ORTHOPAEDICS 08/23/2023 6495-2-040 / / [id number] Knee Axle Hrhk Rot Mod Hng - [id number] Implanted:Qty: 1 on 03/03/2023 by Cholo Shah MD at OR [facility] Right: Knee ROSALIA : ORTHOPAEDICS 06/30/2027 6481-2-120 / / [id number] Restrictors Med Cmnt Q545-8074 - [id number] Implanted:Qty: 1 on 03/03/2023 by Cholo Shah MD at OR [facility] Right: Knee ROSALIA : ORTHOPAEDICS 11/18/2027 W956-4609 / / Cement Bone Full Mix Surg Simp - [id number] Implanted:Qty: 1 on 03/03/2023 by Cholo Shah MD at OR [facility] Right: Knee ROSALIA : ORTHOPAEDICS 07/09/2025 6191-1-010 / / [id number] Cement Bone Full Mix Surg Simp - [id number] Implanted:Qty: 1 on 03/03/2023 by Cholo Shah MD at OR [facility] Right: Knee ROSALIA : ORTHOPAEDICS 06/08/2025 6191-1-010 / / [id number] Cement Bone Full Mix Surg Simp - [id number] Implanted:Qty: 1 on 03/03/2023 by Cholo Shah MD at OR [facility] Right: Knee ROSALIA : ORTHOPAEDICS 05/08/2025 6191-1-010 / / [id number] Knee Fem Gmrs Dis Std R - [id number] Implanted:Qty: 1 on 03/10/2023 by Cholo Shah MD at OR [facility] Right: Knee ROSALIA : ORTHOPAEDICS 10/21/2027 6495-2-040 / / [id number] Knee Hrhk Mod Rot Hng Bushing - [id number] Implanted:Qty: 1 on 03/10/2023 by Cholo Shah MD at OR [facility] Right: Knee ROSALIA : ORTHOPAEDICS 01/29/2027 6481-2-110 / / [id number] Knee Axle Hrhk Rot Mod Hng - [id number] Implanted:Qty: 1 on 03/10/2023 by Cholo Shah MD at OR [facility] Right: Knee ROSALIA : ORTHOPAEDICS 09/15/2027 6481-2-120 / / [id number] Tib Mrh Cross Bear Long Xs/Xl - [id number] Implanted:Qty: 1 on 03/10/2023 by Cholo Shah MD at OR [facility] Right: Knee ROSALIA : ORTHOPAEDICS 09/30/2027 6481-2-103 / / [id number] Knee Hrhk Mod Rot Hng Bushing - [id number] Implanted:Qty: 1 on 03/10/2023 by Cholo Shah MD at OR [facility] Right: Knee ROSALIA : ORTHOPAEDICS 04/24/2027 6481-2-110 / / [id number] Knee Tib Bumper Rot Hng Nue - [id number] Implanted:Qty: 1 on 03/10/2023 by Cholo Shah MD at OR [facility] Right: Knee ROSALIA : ORTHOPAEDICS 10/15/2027 6481-2-130 / / [id number] documented as of this encounter Advance Directives Documents on File Type Date Recorded Patient Underbaster Expl 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 Care Teams Natural Resources Engineer Relationship Specialty Start Date End Date Antonia Ledezma DO [address] [facility] [address] PCP - General Family Medicine 08/20/22 documented as of this encounter
--- OUTSIDE RECORDS SUMMARY | 2024-04-16 12:35 | External Medical Summary | Summary of Care ---
Author Name Unknown Organization [facility] Address [address] [place] [address] Phone [phone] Care Team Providers Care Stroke Belt Sander Operator Name Role Phone Antonia Ledezma DO Primary Care Provider [phone] Reason for Visit * Reason Onset Date Comments Medication Refill 03/02/2024 Encounter Details Date Type Department Care Team (Late st Contact Info) Description 03/02/2024 Refill [facility] [address] [place] [address] Antonia Ledezma DO [address] [place] [address] BILLY (generalized anxiety disorder) Allergies [...] as of this encounter (statuses as of 03/04/2024) Medications Medication Sig Dispensed Refills Start Date End Date Status Cholecalciferol (VITAMIN D) 1000 UNITS Tablet Take 2 Tablets by mouth in the morning. 0 Active Folic Acid 1 MG Oral TabletIndications:A [...] oxygen IN GASIndications:ILD (interstitial lung disease) ([facility]),Chronic respiratory failure with hypoxia ([facility]) [...] mouth in the morning. 0 Active Nystatin 145780 UNIT/GM External Powder (Nystop) Apply topically to [...] the morning. 90 Tablet 3 3 Active Bumetanide 2 MG Oral Tablet Take 1 Tablet by mouth 2 times a day in the morning and at noon. 60 Tablet 5 3 Active Amoxicillin 500 MG Oral Capsule [...] as instructed. 300 Tablet 0 3 Active Sulfamethoxazole-Tr imethoprim 800-160 MG Oral [...] for Anxiety. 60 Tablet 0 4 Active LORazepam 0.5 MG Oral Tablet (Ativan)Indications :BILLY (generalized anxiety disorder) Take 1 Tablet by mouth every 8 hours as needed for Anxiety. 60 Tablet 0 4 03/02/20 Discontinu ed(Refill) documented as of this encounter (statuses as of 03/04/2024) Active Problems Problem Noted Date Diagnosed Date [...] 100 mg BID x 14 days Old [place] (myocardial infarction) 04/14/2023 Hyperlipidemia 04/14/2023 Hereditary hemolytic [...] as of this encounter (statuses as of 03/04/2024) Resolved Problems Problem Noted Date Diagnosed Date [...] as of this encounter (statuses as of 03/04/2024) Immunizations Name Administration Dates Next Due COVID-19 [...] Telephone Encounter - Antonia Ledezma DO - 03/04/2024 9:39 AM EDTSigned Prescriptions: Disp Refills LORazepam 0.5 MG Oral Tablet (Ativan) 60 Tab*0 Sig: Take 1 Tablet by mouth every 8 hours as needed for Anxiety. Authorizing Provider: ANTONIA LEDEZMA * Telephone Encounter - Josie Rodriguez [facility] - 03/03/2024 12:07 PM EDT Pending Prescriptions: Disp Refills LORazepam 0.5 MG Oral Tablet (Ativan) 60 Tab*0 Sig: Take 1 Tablet by mouth every 8 hours as needed for Anxiety. * Telephone Encounter - Josie Rodriguez [facility] - 03/03/2024 12:06 PM EDT I have reviewed the patients controlled substance dispensing history in the Prescription Drug Monitoring Program in compliance with the [facility] regulations before prescribing a controlled substance. PDMP checked on 03/03/2024. Pending Prescriptions: Disp Refills LORazepam 0.5 MG Oral Tablet (Ativan) 60 Tab*0 Sig: Take 1 Tablet by mouth every 8 hours as needed for Anxiety. Last Visit: 10/19/2023 (in office), 12/04/2020 (telemedicine) Next Visit: 03/30/2024 Date medication was last filled: 01/31 Date medication is due for refill: 02/20 Pharmacy: [facility] [address] Is this request for a controlled substance? [...] in Results Review. Please approve if appropriate. Thanks, Josie Rodriguez PharmD Clinical Pharmacist [facility] ([facility]) (formerly Telepharmacy) [phone] 03/03/2024,12:06 PM * Telephone Encounter - Kalyani Costello, chute loader - 03/02/2024 9:51 AM EDT Did you pend patient's preferred pharmacy and medication before forwarding?yes Pharmacy: [facility] [address] [address] GISSELLE CHRISTIANSON Pending Prescriptions: Disp Refills LORazepam 0.5 MG Oral Tablet (Ativan) 60 Tab*0 Sig: Take 1 Tablet by mouth every 8 hours as needed for Anxiety. Last Visit: 10/19/2023 (in office), 12/04/2020 (telemedicine) Next Visit: 03/30/2024 If no future appointments scheduled, and last appointment is greater than a year ago, please schedule patient for a follow-up appointment Last date the medication was ordered: 02/01/2024 Is this request for a controlled substance?Take 1 Tablet by mouth every 8 hours as needed for Anxiety Urine Drug Screen: Results for orders placed [...] Description 03/08/2024 10:00 AM EDT [facility] Visit [facility] [place], [facility] [address] [facility] [place] [address] July Diaz RN [address] [facility] [place] [address] 03/30/2024 12:10 PM EDT Office Visit [place] [address] [place] [address] Antonia Ledezma DO [address] [place] [address] 04/18/2024 10:45 AM EDT Hospital Encounter ENDO [facility], Endoscopy Suite, HFAM 1, [address] [place] [address] Fish Ahmadi MD [address] [place] [address] 04/18/2024 10:45 AM EDT - 04/18/2024 12:30 PM EDT Surgery ENDO [facility], Endoscopy Suite, HFAM 1, [address] [place] [address] Fish Ahmadi MD [address] [place] [address] ESOPHAGOGASTRODUODENOSCOPY (EGD), FLEXIBLE, TRANSORAL, ENDOSCOPIC ULTRASOUND 05/05/2024 10:30 AM EDT Office Visit Orthopaedics, [place] [address] [place] [address] Cholo Shah MD [address] [place] [address] 05/10/2024 10:30 AM EDT Office Visit Gynecology/Oncol ogy, [place] [address], [place] [address] Jeanie Gunter PA-C [address] [place], [place] [address] 08/29/2024 11:00 AM EDT Office Visit Cardiology, [facility] [address], [place] [id number] Shilpi Bailey PA-C [address] [facility] [address] Scheduled Procedures Name Priority Associated Diagnoses Date/Ti [...] COPD 03/10/2024 03/10/2023 CKD PHOS USE SMARTSET 05324 03/16/2024 05/0 06/2023, 03/15/2023, 03/14/2023, Additional history exists GFR 08/16/2024 02/15/2024, 11/11, 09/17/2023, Additional history exists Mammogram 12/09/2024 12/09/2023, 04/10, 03/07/2021, Additional history exists CKD HGB USE SMARTSET 03870 02/14/202502/14, 02/15/2024, 12/09/2023, Additional history exists Lipid [...] encounter Medical Devices Implanted Type Area Clinical Research Assistant Device Identifier Shelf Expiration Date Model / Serial / Lot Cement Bone Simplex Hv & G - [id number] Implanted:Qty: 2 on 01/05/2023 by Harley Nguyen, DO at OR [facility] Left: Knee ROSALIA : ORTHOPAEDICS 06/08/2024 6195-1-010 / / [id number] Component Femoral Size 5 - [id number] Implanted:Qty: 1 on 01/05/2023 by Harley Nguyen DO at OR [facility] Left: Knee ROSALIA : ORTHOPAEDICS 08/09/2026 5510-F-501 / / [id number] Knee Tria Syetric X3 10x36 - [id number] Implanted:Qty: 1 on 01/05/2023 by Harley Nguyen DO at OR [facility] Left: Knee ROSALIA : ORTHOPAEDICS 09/24/2027 5550-G-360 -E / / [id number] Baseplate Tib 5 Knee - [id number] Implanted:Qty: 1 on 01/05/2023 by Harley Nguyen DO at OR [facility] Left: Knee ROSALIA : ORTHOPAEDICS 12/14/2027 5521-B-500 / / [id number] Knee X3 Ins Pos Cs Sz5 9 - [id number] Implanted:Qty: 1 on 01/05/2023 by Harley Nguyen DO at OR [facility] Left: Knee ROSALIA : ORTHOPAEDICS 11/19/2027 5531-G-509 -E / / [id number] Cement Bone Full Mix Surg Simp - [id number] Implanted:Qty: 1 on 03/03/2023 by Cholo Shah MD [place] [facility] Right: Knee ROSALIA : ORTHOPAEDICS 05/08/2025 6191-1-010 / / [id number] Knee Tib Comp Poly Krh 8 Lg - [id number] Implanted:Qty: 1 on 03/03/2023 by Cholo Shah MD [place] [facility] Right: Knee ROSALIA : ORTHOPAEDICS 07/19/2023 6485-2-308 / / [id number] Knee Hrhk Mod Rot Hng Bushing - [id number] Implanted:Qty: 1 on 03/03/2023 by Cholo Shah MD [place] [facility] Right: Knee ROSALIA : ORTHOPAEDICS 01/09/2027 6481-2-110 / / [id number] Knee Hrhk Mod Rot Hng Bushing - [id number] Implanted:Qty: 1 on 03/03/2023 by Cholo Shah MD at [place] [facility] Right: Knee ROS[employer]IA : ORTHOPAEDICS 11/21/2026 6481-2-110 / / [id number] Knee Stem Crv Mod Mrs 09x086 - [id number] Implanted:Qty: 1 on 03/03/2023 by Cholo Shah MD [place] [facility] Right: Knee ROSALIA : ORTHOPAEDICS 10/02/2026 6485-3-715 / / [id number] Tib Mrh Cross Bear Long Xs/Xl - [id number] Implanted:Qty: 1 on 03/03/2023 by Cholo Shah MD [place] [facility] Right: Knee ROSALIA : ORTHOPAEDICS 12/05/2025 6481-2-103 / / [id number] Knee Tib Bumper Rot Hng Nue - [id number] Implanted:Qty: 1 on 03/03/2023 by Cholo Shah MD [place] [facility] Right: Knee ROSALIA : ORTHOPAEDICS 07/15/2027 6481-2-130 / / [id number] Distal Femoral Component Implanted:Qty: 1 on 03/03/2023 by Cholo Shah MD [place] [facility] Right: Knee ROSALIA : ORTHOPAEDICS 08/23/2023 6495-2-040 / / [id number] Knee Axle Hrhk Rot Mod Hng - [id number] Implanted:Qty: 1 on 03/03/2023 by Cholo Shah MD [place] [facility] Right: Knee ROSALIA : ORTHOPAEDICS 06/30/2027 6481-2-120 / / [id number] Restrictors Med Cmnt W233-8272 - [id number] Implanted:Qty: 1 on 03/03/2023 by Cholo Shah MD [place] [facility] Right: Knee ROSALIA : ORTHOPAEDICS 11/18/2027 H726-5162 / / Cement Bone Full Mix Surg Simp - [id number] Implanted:Qty: 1 on 03/03/2023 by Cholo Shah MD [place] [facility] Right: Knee ROSALIA : ORTHOPAEDICS 07/09/2025 6191-1-010 / / [id number] Cement Bone Full Mix Surg Simp - [id number] Implanted:Qty: 1 on 03/03/2023 by Cholo Shah MD [place] [facility] Right: Knee ROSALIA : ORTHOPAEDICS 06/08/2025 6191-1-010 / / [id number] Cement Bone Full Mix Surg Simp - [id number] Implanted:Qty: 1 on 03/03/2023 by Cholo Shah MD [place] [facility] Right: Knee ROSALIA : ORTHOPAEDICS 05/08/2025 6191-1-010 / / [id number] Knee Fem Gmrs Dis Std R - [id number] Implanted:Qty: 1 on 03/10/2023 by Cholo Shah MD [place] [facility] Right: Knee ROSALIA : ORTHOPAEDICS 10/21/2027 6495-2-040 / / [id number] Knee Hrhk Mod Rot Hng Bushing - [id number] Implanted:Qty: 1 on 03/10/2023 by Cholo Shah MD [place] [facility] Right: Knee ROSALIA : ORTHOPAEDICS 01/29/2027 6481-2-110 / / [id number] Knee Axle Hrhk Rot Mod Hng - [id number] Implanted:Qty: 1 on 03/10/2023 by Cholo Shah MD [place] [facility] Right: Knee ROSALIA : ORTHOPAEDICS 09/15/2027 6481-2-120 / / [id number] Tib Mrh Cross Bear Long Xs/Xl - [id number] Implanted:Qty: 1 on 03/10/2023 by Cholo Shah MD [place] [facility] Right: Knee ROSALIA : ORTHOPAEDICS 09/30/2027 6481-2-103 / / [id number] Knee Hrhk Mod Rot Hng Bushing - [id number] Implanted:Qty: 1 on 03/10/2023 by Cholo Shah MD [place] [facility] Right: Knee ROSALIA : ORTHOPAEDICS 04/24/2027 6481-2-110 / / [id number] Knee Tib Bumper Rot Hng Nue - [id number] Implanted:Qty: 1 on 03/10/2023 by Cholo Shah MD at [facility] Right: Knee ROSALIA : ORTHOPAEDICS 10/15/2027 6481-2-130 / / [id number] documented as of this encounter Visit Diagnoses Diagnosis BILLY (generalized anxiety disorder) Generalized anxiety disorder Choledocholithiasis Calculus of bile duct without mention of cholecystitis or obstruction documented in this encounter Advance Directives Documents on File Type Date Recorded Patient Header Dock Expl 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 Care Teams Stroke Belt Sander Operator Relationship Specialty Start Date End Date Antonia Ledezma DO [address] [place] [address] PCP - General Family Medicine 08/20/22 documented as of this encounter
--- OUTSIDE RECORDS SUMMARY | 2024-04-16 12:36 | External Medical Summary | Summary of Care ---
Author Name Unknown Organization [facility] Address [address] [place] [address] Phone [phone] Care Team Providers Care Crop Grain Or Livestock Farmer Name Role Phone Antonia Hawthorne DO Primary Care Provider [phone] Reason for Visit * Reason Onset Date Comments Medication Refill 10/10/2023 Encounter Details Date Type Department Care Team (Late st Contact Info) Description 10/10/[address] [facility] [address] [place] [address] Antonia Hawthorne DO [address] [place] [address] GENERAL OSTEOARTHROSIS Allergies Active Allergy Reactions Criticality Noted Date [...] as of this encounter (statuses as of 02/09/2024) Medications Medication Sig Dispensed Refills Start Date End Date Status Cholecalciferol (VITAMIN D) 1000 UNITS Tablet Take 2 Tablets by mouth in the morning. 0 Active Folic Acid 1 MG Oral TabletIndications: Anemia, unspecified type Take 1 tablet by mouth once daily 90 Tablet 3 12/09/19 22 Active Docusate Sodium 100 MG Oral Capsule Take 1 Capsule by mouth in the morning and 1 Capsule before bedtime. 0 Active Loratadine 10 MG Oral Tablet (Claritin) Take by mouth 1 Tablet in the morning. 34 Tablet 5 06/26/20 22 Active oxygen IN GASIndications:ILD (interstitial lung disease) ([facility]),Chronic respiratory failure with hypoxia (HCC) Use 2 LPM with exertion and 3 LPM with sleep. Needs small portable tanks, standing concentrator DME: [facility] 1 Each 0 07/02/20 22 Active Proventil HFA 108 (90 Base) MCG/ACT Inhalation Aerosol SolutionIndication s:ILD (interstitial lung disease) ([facility]) Inhale by mouth 2 Puffs every 4 hours as needed for Wheezing. 6.7 g 3 08/20/20 22 Active Sertraline HCl 100 MG Oral Tablet (Zoloft)Indication s:Depression with anxiety Take 1 Tablet by mouth in the morning. 90 Tablet 3 01/12/20 23 Active SF 5000 Plus 1.1 % Dental Cream APPLY A THIN LAYER TO TOOTHBRUSH AND BRUSH ONCE DAILY FOR 2 MINUTES, SPIT OUT, DO NOT RINSE 0 12/29/19 23 Active Gabapentin 300 MG Oral Capsule (Neurontin) Take 1 Capsule by mouth in the morning and 1 Capsule at noon and 1 Capsule before bedtime. 90 Capsule 10 04/16/20 23 Active Acetaminophen 325 MG Oral Tablet (Tylenol) Take 1 Tablet by mouth every 6 hours as needed. 0 Active Omeprazole 20 MG Oral Capsule Delayed Release (PriLOSEC) Take 1 Capsule by mouth in the morning and 1 Capsule before bedtime. 180 Capsule 3 04/23/20 23 Active Naproxen Sodium 220 MG Oral Capsule Take 1 Capsule by mouth daily as needed for Pain. 0 Active Probiotic Daily Oral Capsule Take 1 Capsule by mouth in the morning. 0 Active Nystatin 835449 UNIT/GM External Powder (Nystop) Apply topically to affected area 3 times a day. 60 g 5 05/29/20 Active Sotalol HCl 80 MG Oral Tablet (Betapace) Take 1 Tablet by mouth in the morning and 1 Tablet before bedtime. 180 Tablet 3 06/08/20 Active Ipratropium-Albute rol 0.5-2.5 (3) MG/3ML Inhalation Solution Inhale 3 mL by mouth every 6 hours as needed. 0 Active Montelukast Sodium 10 MG Oral Tablet (Singulair) Take 1 Tablet by mouth in the morning. 90 Tablet 3 07/16/20 Active Bumetanide 2 MG Oral Tablet Take 1 Tablet by mouth 2 times a day in the morning and at noon. 60 Tablet 5 09/17/20 Active Cyclobenzaprine HCl 5 MG Oral Tablet (Flexeril)Indicati ons:Generalized osteoarthritis Take 1 tablet by mouth twice daily as needed for muscle spasm 60 Tablet 2 04/24/20 23 023 Discontinued(Re fill) hydrOXYzine HCl 25 MG Oral TabletIndications: Pruritus TAKE 1 TABLET BY MOUTH AT BEDTIME NEEDED FOR ITCHING 30 Tablet 3 06/03/20 23 024 Discontinued amLODIPine Besylate 5 MG Oral Tablet (Norvasc) Take 1 Tablet by mouth in the morning. 0 05/26/20 23 024 Discontinued(Re fill) predniSONE 10 MG Oral Tablet (Deltasone) Take 1 Tablet by mouth in the morning. 0 023 Discontinued(Me dication/Dose Changed) Magnesium Chloride 64 MG Oral Tablet Delayed Release Take 1 Tablet by mouth in the morning and 1 Tablet before bedtime. 0 023 Discontinued(Me dication List Clean Up) LORazepam 0.5 MG Oral Tablet (Ativan)Indication s:BILLY (generalized anxiety disorder) TAKE 1 TABLET BY MOUTH EVERY 8 HOURS NEEDED FOR ANXIETY 60 Tablet 0 07/06/20 23 023 Discontinued(Re fill) Cefdinir 300 MG Oral Capsule Take 1 Capsule by mouth in the morning and 1 Capsule before bedtime. 0 023 Discontinued(Di scharged) Fosfomycin Tromethamine 3 GM Oral Packet (Monurol)Indicatio ns:Recurrent UTI Take 3 g by mouth once a week. 4 Packet 5 07/28/20 23 024 Discontinued(Re fill) Hospital, Clinic, or Other Facility Administered Medication Ordered Dose Route Frequency Start Date End Date Status Albuterol Sulfate (Proventil) (2.5 MG/3ML) 0.083% inhalation solution 2.5 mgIndications:SOB (shortness of breath),ILD (interstitial lung disease) (HCC) 2.5 mg NEBULIZER PRN 11/24/2022 11/24/2023 Ended Albuterol Sulfate (Proventil) (5 MG/ML) 0.5% *conc* inhalation solution 2.5 mgIndications:SOB (shortness of breath),ILD (interstitial lung disease) (HCC) 2.5 mg NEBULIZER PRN 11/24/2022 11/24/2023 Ended Albuterol Sulfate (Proventil) (2.5 MG/3ML) 0.083% inhalation solution 2.5 mgIndications:SOB (shortness of breath),ILD (interstitial lung disease) (HCC),Nocturnal hypoxia,Chronic respiratory failure with hypoxia (HCC) 2.5 mg NEBULIZER PRN 11/24/2022 11/24/2023 Ended Albuterol Sulfate (Proventil) (5 MG/ML) 0.5% *conc* inhalation solution 2.5 mgIndications:SOB (shortness of breath),ILD (interstitial lung disease) (HCC),Nocturnal hypoxia,Chronic respiratory failure with hypoxia (HCC) 2.5 mg NEBULIZER PRN 11/24/2022 11/24/2023 Ended documented as of this encounter (statuses as of 02/09/2024) Active Problems Problem Noted Date Diagnosed Date [...] 100 mg BID x 14 days Old IL (myocardial infarction) 04/14/2023 Hyperlipidemia 04/14/2023 Hereditary hemolytic anemia, unspecified 023 History of recent blood transfusion 01/13/2023 S/P total knee arthroplasty, left 01/05/2023 Prediabetes 12/22/2022 Overview: Per Prediabetes protocol History of ovarian cancer 12/19/2022 Hypertensive heart disease with heart failure Severe obesity with body mas s index [...] as of this encounter (statuses as of 02/09/2024) Resolved Problems Problem Noted Date Diagnosed Date [...] as of this encounter (statuses as of 02/09/2024) Immunizations Name Administration Dates Next Due COVID-19 [...] Years Used Date Smoking Tobacco: Former Cigarettes 0.3 5 1 11/10/2005 - 09/10/2011 Passive Smoke Exposure: Never Smokeless Tobacco: Never Alcohol Use Standard Drinks/Week Comments No 0 (1 standard drink = 0.6 oz pur e alcohol) PHQ-2 Answer Date Recorded PHQ-2 Score 2 09/11/2020 Hunger Vital Sign Answer Date Recorded Within the past 12 months, y ou worried that your food would run out before you got the money to buy more. Never true 02/04/20 Within the past 12 months, t he food you bought just didn't last and you didn't have money to get more. Never true 02/03/2023 Sex and Gender Information Value Date Recorded [...] encounter Miscellaneous Notes * Telephone Encounter - Yanci Chaudhry LPN - 10/15/2023 3:17 PM EST Patient aware and verbalized understanding. States that she has been taking this for a couple of years now and if PCP does not want her to takeit, she wont. Please advise. * Telephone Encounter - Philly Boggs LPN - 10/15/2023 2:04 PM EST Attempted to call, no answer, left message to return call When patient calls back, please give the message * Telephone Encounter - Antonia Hawthorne DO - 10/12/2023 11:59 AM ESTRefused Prescriptions: Disp Refills Cyclobenzaprine HCl 5 MG Oral Tablet (Flex*60 Tab*2 Sig: Take 1 tablet by mouth twice daily as needed for muscle spasm Refused By: ANTONIA HAWTHORNE Reason for Refusal: Other (comment below) * Telephone Encounter - Antonia Hawthorne DO - 10/12/2023 11:59 AM EST Is she really taking this? She has heart conditions that iftaking this she needs to be very careful. * Telephone Encounter - Rose Streeter CPhT - 10/10/2023 11:33 AM EST Did you pend patient's preferred pharmacy and medication before forwarding?yes [facility] [phone] Pending Prescriptions: Disp Refills Cyclobenzaprine HCl 5 MG Oral Tablet (Fle*60 Tab*2 Sig: Take 1 tablet by mouth twice daily as needed for muscle spasm Last Visit: 09/17/2023 (in office), 12/04/2020 (telemedicine) Next Visit: 10/19/2023 If no future appointments scheduled, and last appointment is greater than a year ago, please schedule patient for a follow-up appointment Last date the medication was ordered: 04/24/2023 Is this request for a controlled substance?No Urine Drug Screen: Results for orders placed or performed during the hospital encounter of 02/28/23 TOXICOLOGY, URINE SCREEN W/ CONFIRMATION Result Value Amphetamine Negative Benzodiazepines Negative Cannabinoids Negative Cocaine Metabolite Negative Fentanyl Positive (A) Hydrocodone / Hydromorphone Positive (A) Methadone Metabolite Negative Morphine / Codeine Negative Oxycodone / Oxymorphone Positive (A) Narrative Cutoff Concentrations: Drug Level [...] Labs: Lab Results Component Value Date/Time CREAT 0.8 09/17/2023 03:15 PM CREAT 0.84 05/26/2023 12:00 AM CREAT 0.9 11/28/2020 08:44 AM POTASSIUM 4.9 09/17/2023 03:15 PM POTASSIUM 3.9 05/26/2023 12:00 AM POTASSIUM 5.1 11/28/2020 08:44 AM TSH 3.15 12/09/2019 09:55 AM LDLCALC 76 08/02/2019 11:00 AM LDLDIRECT 97 09/03/2022 01:57 PM ALT 58 (H) 09/17/2023 03:15 PM ALT 25 11/28/2020 08:44 AM HGBA1C 5.8 (H) 12/18/2022 11:51 AM HGBA1C 6.2 05/27/2018 09:52 AM documented in this encounter Plan of Treatment Upcoming Encounters Date Type Department Care Team (Latest Contact Info) Description 4 1:00 PM EDT Imaging Radiology [address] [address] 1:00 PM EDT Home Visit Care Coordination and Integration [address] [place] [facility] [place] [address] Cinthya Weber, Community Health Sql Programmer Analyst [address] [place] [address] 4 10:30 AM EDT Office Visit Pulmonary Medicine, [facility] [address] [place] [address] Raulito Cosme MD [address] [place] [address] 4 1:30 PM EDT Office Visit Cardiology, [facility] [address] [place] [address] Shilpi Bailey PATammiC [address] [place] [address] 4 10:00 AM EDT [facility] [address] [place] [address] July Diaz, RN [address] [place] [address] 4 12:10 PM EDT Office Visit [address] [id number] Antonia Hawthorne, [facility] [place] [address] 4 9:45 AM EDT Hospital Encounter [facility], Endoscopy Suite, [facility], [address] [place] [address] Fish Ahmadi MD [address] [place] [address] 4 9:45 AM EDT - 4 11:30 AM EDT Surgery [facility] Endoscopy [facility], [facility], [address] [place] [address] Fish Ahmadi MD [address] [place] [address] ESOPHAGOGASTRODUODENOSCOPY (EGD), FLEXIBLE, TRANSORAL, ENDOSCOPIC ULTRASOUND 4 10:30 AM EDT Office Visit Orthopaedics, [facility] [address] [place] [address] Cholo Shah MD [address], [place] [id number] 4 10:30 AM EDT Office Visit Gynecology/Oncolo gy, [facility] [address], [place] [id number] Jeanie Gunter PA-C [address], [place] [id number] Scheduled Procedures Name Priority Associated Diagnoses Date/Ti me ESOPHAGOGASTRODUODENOSCOPY ( EGD), FLEXIBLE, TRANSORAL, ENDOSCOPIC ULTRASOUND Choledocholithiasis 04/18/2024 9:45 AM EDT ENDOSCOPIC RETROGRADE CHOLANGIOPANCREATOGRAPHY (ERCP) DIAGNOSTIC Choledocholithiasis 04/18/2024 9:45 AM EDT ESOPHAGOGASTRODUODENOSCOPY ( EGD), FLEXIBLE, TRANSORAL, DIAGNOSTIC Choledocholithiasis 04/18/2024 9:45 AM EDT COLONOSCOPY FLEXIBLE PROXIMA L DIAGNOSTIC [...] COPD 03/10/2024 03/10/2023 CKD PHOS USE SMARTSET 32573 03/16/2024 05/0 06/2023, 03/15/2023, 03/14/2023, Additional history exists GFR 06/08/2024 12/09/2023, 1107/2023, 07/14/2023, Additional history exists CKD HGB USE SMARTSET 32407 12/09/202412/09, 12/09/2023, 09/17/2023, Additional history exists Mammogram 12/09/2024 12/09/2023, 04/10, 03/07/2021, Additional history exists Lipid Panel 09/03/2027 09/03/2022, [...] this encounter Medical Devices Implanted Type Area Grounds Worker Device Identifier Shelf Expiration Date Model / Serial / Lot Cement Bone Simplex Hv & G - [id number] Implanted:Qty: 2 on 01/05/2023 by Harley Nguyen, DO at OR [facility] Left: Knee [employer] : ORTH[employer] 06/08/2024 6195-1-010 / / [id number] Femoral Size 5 - [id number] Implanted:Qty: 1 on 01/05/2023 by Harley Nguyen DO at OR [facility] Left: Knee [employer] : OR[employer] 08/09/2026 5510-F-501 / / [id number] Knee Tria Syetric X3 10x36 - [id number] Implanted:Qty: 1 on 01/05/2023 by Harley Nguyen DO at OR [facility] Left: Knee [employer] : [employer] 09/24/2027 5550-G-360 -E / / [id number] Baseplate Tib 5 Knee - [id number] Implanted:Qty: 1 on 01/05/2023 by Harley Nguyen DO at OR [facility] Left: Knee [employer] : [employer] 12/14/2027 5521-B-500 / / [id number] Knee X3 Ins Pos Cs Sz5 9 - [id number] Implanted:Qty: 1 on 01/05/2023 by Harley Nguyen DO at OR [facility] Left: Knee [employer] : OR[employer] 11/19/2027 5531-G-509 -E / / [id number] Cement Bone Full Mix Surg Simp - [id number] Implanted:Qty: 1 on 03/03/2023 by Cholo Shah MD at OR [facility] Right: Knee [employer] : ORTH[employer] 05/08/2025 6191-1-010 / / [id number] Knee Tib Comp Poly Krh 8 Lg - [id number] Implanted:Qty: 1 on 03/03/2023 by Cholo Shah MD at OR [facility] Right: Knee [employer] : ORTH[employer] 07/19/2023 6485-2-308 / / [id number] Knee Hrhk Mod Rot Hng Bushing - [id number] Implanted:Qty: 1 on 03/03/2023 by Cholo Shah MD at OR [facility] Right: Knee [employer] : ORTH[employer] 01/09/2027 6481-2-110 / / [id number] Knee Hrhk Mod Rot Hng Bushing - [id number] Implanted:Qty: 1 on 03/03/2023 by Cholo Shah MD at OR [facility] Right: Knee [employer] : ORTH[employer] 11/21/2026 6481-2-110 / / [id number] Knee Stem Crv Mod Mrs 56r935 - [id number] Implanted:Qty: 1 on 03/03/2023 by Cholo Shah MD at OR [facility] Right: Knee [employer] : ORTH[employer] 10/02/2026 6485-3-715 / / [id number] Tib Mrh Cross Bear Long Xs/Xl - [id number] Implanted:Qty: 1 on 03/03/2023 by Cholo Shah MD at OR [facility] Right: Knee [employer] : ORTH[employer] 12/05/2025 6481-2-103 / / [id number] Knee Tib Bumper Rot Hng Nue - [id number] Implanted:Qty: 1 on 03/03/2023 by Cholo Shah MD at OR [facility] Right: Knee [employer] : ORTH[employer] 07/15/2027 6481-2-130 / / [id number] Distal Femoral Component Implanted:Qty: 1 on 03/03/2023 by Cholo Shah MD at OR [facility] Right: Knee [employer] : ORTH[employer] 08/23/2023 6495-2-040 / / [id number] Knee Axle Hrhk Rot Mod Hng - [id number] Implanted:Qty: 1 on 03/03/2023 by Cholo Shah MD at OR [facility] Right: Knee [employer] : ORTHOPA[employer] 06/30/2027 6481-2-120 / / [id number] Restrictors Med Cmnt X207-1581 - [id number] Implanted:Qty: 1 on 03/03/2023 by Cholo Shah MD at OR [facility] Right: Knee [employer] : ORTH[employer] 11/18/2027 V085-8476 / / Cement Bone Full Mix Surg Simp - [id number] Implanted:Qty: 1 on 03/03/2023 by Cholo Shah MD at OR [facility] Right: Knee [employer] : ORTH[employer] 07/09/2025 6191-1-010 / / [id number] Cement Bone Full Mix Surg Simp - [id number] Implanted:Qty: 1 on 03/03/2023 by Cholo Shah MD at OR [facility] Right: Knee [employer] : ORTH[employer] 06/08/2025 6191-1-010 / / [id number] Cement Bone Full Mix Surg Simp - [id number] Implanted:Qty: 1 on 03/03/2023 by Cholo Shah MD at OR [facility] Right: Knee [employer] : ORTH[employer] 05/08/2025 6191-1-010 / / [id number] Knee Fem Gmrs Dis Std R - [id number] Implanted:Qty: 1 on 03/10/2023 by Cholo Shah MD at OR [facility] Right: Knee [employer] : ORTHOPA[employer] 10/21/2027 6495-2-040 / / [id number] Knee Hrhk Mod Rot Hng Bushing - [id number] Implanted:Qty: 1 on 03/10/2023 by Cholo Shah MD at OR [facility] Right: Knee [employer] : ORTHOPA[employer] 01/29/2027 6481-2-110 / / [id number] Knee Axle Hrhk Rot Mod Hng - [id number] Implanted:Qty: 1 on 03/10/2023 by Cholo Shah MD at OR [facility] Right: Knee [employer] : ORTHOPA[employer] 09/15/2027 6481-2-120 / / [id number] Tib Mrh Cross Bear Long Xs/Xl - [id number] Implanted:Qty: 1 on 03/10/2023 by Cholo Shah MD at OR [facility] Right: Knee [employer] : ORTH[employer] 09/30/2027 6481-2-103 / / [id number] Knee Hrhk Mod Rot Hng Bushing - [id number] Implanted:Qty: 1 on 03/10/2023 by Cholo Shah MD at OR [facility] Right: Knee [employer] : ORTHOPA[employer] 04/24/2027 6481-2-110 / / [id number] Knee Tib Bumper Rot Hng Nue - [id number] Implanted:Qty: 1 on 03/10/2023 by Cholo Shah MD at OR [facility] Right: Knee [employer] : ORTHOPA[employer] 10/15/2027 6481-2-130 / / [id number] documented as of this encounter Visit Diagnoses Diagnosis GENERAL OSTEOARTHROSIS Generalized osteoarthrosis, unspecified site Choledocholithiasis Calculus of bile duct without mention of cholecystitis or obstruction documented in this encounter Advance Directives Documents on File Type Date Recorded Patient Political Anthropologist Expl 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 Care Teams Crop Grain Or Livestock Farmer Relationship Specialty Start Date End Date Antonia Hawthorne DO [address] [place] [address] PCP - General Family Medicine 08/20/22 documented as of this encounter
--- OUTSIDE RECORDS SUMMARY | 2024-04-16 12:36 | External Medical Summary | Summary of Care ---
Author Name Unknown Organization [facility] Address [address] [place] [address] Phone [phone] Care Team Providers Care Painting Manager Name Role Phone Kat Hawthorne DO Primary Care Provider [phone] Reason for Visit * Reason Comments Follow Up Over 1 year follow u p. Palpitations when stressed but not often. SOB a little worse then prior but recently saw Pulm. Denies chest pain, dizziness and edema. * Evaluate & Treat - Unlimited Visits (Within 10 days (routine)) - Authorized Specialty Diagnoses / Procedures Referred By Contact Referred To Contact Cardiovascular Medicine / Cardiology Diagnoses Pulmonary HTN (HCC) PAT (paroxysmal atrial tachycardia) (HCC) Kat Hawthorne, [address] [place] [address] Referral ID Status Reason Start Date Expiration Date Visits Requested Visits Authorized [id number] Authorized Specialty Services Required 3 [phone] Encounter Details Date Type Department Care Team (Late st Contact Info) Description 02/19/2024 1:30 PM EDT Office Visit Cardiology, [facility] [address] [place] [address] Shilpi Bailey PA-C [address] [place] [id number] PAF (paroxysmal atrial fibrillation) (HCC)*; Tachy-lakeisha syndrome (HCC); Presence of cardiac pacemaker; Essential hypertension with goal blood pressure less than 130/80; Heart failure with preserved left ventricular function (HFpEF) (HCC) Allergies Active Allergy Reactions Criticality Noted Date [...] as of this encounter (statuses as of 02/19/2024) Medications Medication Sig Dispensed Refills Start Date [...] Active oxygen IN GASIndications:ILD (interstitial lung disease) ([facility]),Chronic respiratory failure with hypoxia ([facility]) Use 2 LPM with exertion and 3 LPM with sleep. Needs small portable tanks, standing concentrator DME: [employer] 1 Each 0 07/02/2022 Active Proventil HFA 108 (90 Base) MCG/ACT Inhalation Aerosol SolutionIndications: ILD (interstitial lung disease) ([facility]) Inhale by mouth 2 Puffs [...] mouth in the morning. 0 Active Nystatin 704444 UNIT/GM External Powder (Nystop) Apply topically to [...] as of this encounter (statuses as of 02/19/2024) Active Problems Problem Noted Date Diagnosed Date [...] 100 mg BID x 14 days Old NM (myocardial infarction) 04/14/2023 Hyperlipidemia 04/14/2023 Hereditary hemolytic [...] as of this encounter (statuses as of 02/19/2024) Resolved Problems Problem Noted Date Diagnosed Date [...] as of this encounter (statuses as of 02/19/2024) Immunizations Name Administration Dates Next Due COVID-19 [...] Sign Reading Time Taken Comments Blood Pressure 126/68 02/19/2024 1:21 PM EDT Pulse 68 02/19/2024 1:21 PM EDT Temperature - - Respiratory Rate 17 02/19/2024 1:21 PM EDT Oxygen Saturation - - Inhaled Oxygen Concentration - - Weight - [...] as of this encounter Progress Notes * Shilpi Bailey PA-C - 02/19/2024 1:26 PM EDT Images from the original note were not included. 02/19/2024 Cardiology F/U: SUBJECTIVE: Patient is a 68-year-old female here today for routine cardiology f/u. Last clinic evaluation approx 6 months ago with the undersigned. History includes: Paroxysmal atrial tach Paroxysmal atrial fib/flutter controlled with sotalol. Not on anticoagulation due to chronic anemia(EPO injections) and GI bleeding History of tachybrady syndrome S/P pacemaker. History if interstitial lung disease, chronic respiratory failure on supplemental O2 - following with pulm Chronic HFpEF Hypertension Patient presents today feeling well from a cardiovascular standpoint. Stable but chronic shortness of breath reported. This is being followed closely by pulmonology. She will be starting BiPAP soon. Chronic CO2 retention noted on recent labs. Wearing supplemental O2. Weight is stable at home. No worsening lower extremity edema. Blood pressure well controlled. No recent chest pain. No recent palpitations or tachy palpitations. Taking meds as prescribed No palpitations, dizziness, syncope or near syncope. No orthopnea, PND, or increased lower extremity edema. No fever, chills, cough, hematochezia, melena, or hemoptysis. Review of Systems: See HPI for pertinent positives. All others negative, other than those noted in HPI. Cardiac Studies: EKG reviewed from [facility] dated Jul 2023: NSR with possible LVH No significant change QT/QTc 424/444 ms Device interrogation reviewed from Oct 2023: Appropriate function and battery longevity of 10.17 years. 54% atrial paced, less than 1% ventricular paced, 0% Afib burden. Echo report reviewed dated June 2023 at [facility]: Nuclear lexiscan stress test report reviewed dated May 2022: Interpretation Summary Lexiscan nuclear cardiac stress test negative for ischemia. Gated SPECT images reveals normal myocardial thickening and wall motion. The LV ejection fraction is calculated at 69% Echo report reviewed dated May 2022: Interpretation Summary The examination is adequate to evaluate the referral indication. The left ventricular cavity size is normal. The LV wall thickness is borderline increased (concentric). The left ventricular wall motion is normal. The qualitative LV ejection fraction is 60-64% (normal). The left ventricular diastolic function is mildly abnormal (grade I). Mild aortic valve sclerosis is present. There is moderate mitral annular calcification. The mitral valve leaflets thickness is mildly increased. Mitral stenosis is absent. Significant mitral regurgitation is absent. The estimated pulmonary artery systolic pressure is 36 mm Hg. EKG performed April 2022 Atrial-paced rhythm High QRS voltage may be normal variant or due to lve Cannot rule out Anterior infarct , age undetermined QT/QTC 456/459 milliseconds Abnormal ECG When compared with ECG of 26-SEP-2021 14:01, No significant change was found Echocardiogram report reviewed dated Nov 2020 Interpretation Summary The examination is adequate to evaluate the referral indication. The qualitative LV ejection fraction is 60-64% (normal). The left ventricular wall motion is normal. Mild mitral regurgitation is present. Trace tricuspid regurgitation. The estimated pulmonary artery systolic pressure is 39 mm Hg. Compared to prior study of 08/25/2019, there is no significant change. Nuclear stress test report reviewed dated April 2019 Interpretation Summary Myocardial perfusion imaging is normal. Overall left ventricular systolic function was normal without regional wall motion abnormalities. The left ventricular ejection fraction was 70%. There are no prior studies available for comparison. 2D echocardiogram report reviewed dated August 25, 2019 Interpretation Summary The rhythm during the transthoracic echo examination was atrial flutter with rapid ventricular response. The qualitative LV ejection fraction is 60-64% (normal). The left atrium is mildly enlarged (35-41 ml/m^2). Mild tricuspid regurgitation is present. The estimated pulmonary artery systolic pressure is 39 mm Hg. Dobutamine stress echo report November 25, 2016: The stress echo is negative for inducible ischemia. No arrhythmias. Normal HR and BP response to dobutamine infusion. At rest, normal LV chamber size and wall thickness. Normal LV systolic function without regional wall motion abnormality, EF 5560%. Grade I diastolic dysfunction. Poorly visualized valvular structures, no significant stenosis or regurgitation by Doppler. Patient Active Problem List Diagnosis Code Essential hypertension with goal blood pressure less than 130/80 I10 GENERALIZED ANXIETY DIS F41.1 GENERAL OSTEOARTHROSIS M15.9 GERD with esophagitis K21.00 Atypical atrial flutter ([facility]) I48.4 Obstructive sleep apnea of adult G47.33 Nocturnal hypoxia G47.34 Anemia D64.9 PAT (paroxysmal atrial tachycardia) ([facility]) I47.19 Tachy-lakeisha syndrome ([facility]) I49.5 Anemia in other chronic diseases classified elsewhere D63.8 Ovarian cancer on left ([facility]) C56.2 S/P MONIKA-BSO (total abdominal hysterectomy and bilateral salpingo-oophorectomy) Z90.710, Z90.722, Z90.79 PAF (paroxysmal atrial fibrillation) ([facility]) I48.0 Morbid (severe) obesity with alveolar hypoventilation ([facility]) E66.2 Presence of cardiac pacemaker Z95.0 Chronic respiratory failure with hypoxia ([facility]) J96.11 ILD (interstitial lung disease) ([facility]) J84.9 Pulmonary HTN ([facility]) I27.20 History of ovarian cancer Z85.43 Hypertensive heart disease with heart failure (HCC) I11.0 Severe obesity with body mass index (BMI) of 35.0 to 39.9 with serious comorbidity (HCC) E66.01 Prediabetes R73.03 S/P total knee arthroplasty, left Z96.652 History of recent blood transfusion Z92.89 Old NM (myocardial infarction) I25.2 Hyperlipidemia E78.5 Hereditary hemolytic anemia, unspecified (HCC) D58.9 Choledocholithiasis K80.50 Open wound of foot, right, subsequent encounter S91.301D History of kidney stones Z87.442 Acute on chronic diastolic CHF (congestive heart failure) (HCC) I50.33 COPD, group B, by GOLD 2017 classification (HCC) J44.9 Secondary esophageal varices without bleeding (HCC) I85.10 Acquired hemolytic anemia (HCC) D59.9 Pulmonary hypertension, unspecified (HCC) I27.20 Atrial fibrillation (HCC) I48.91 Morbid (severe) obesity due to excess calories (HCC) E66.01 Stage 3 chronic kidney disease (HCC) N18.30 Social History Tobacco Use Smoking status: Former Current packs/day: 0.00 Average packs/day: (0.1 ttl pk-yrs) Types: Cigarettes Start date: 09/10/2006 Quit date: 09/10/2011 Years since quittin.4 Passive exposure: Never Smokeless tobacco: Never Tobacco comments: Only smoked on weekends when went to bars. Vaping Use Vaping Use: Never used Substance Use Topics Alcohol use: No Drug use: No Past Surgical History: Procedure Laterality Date ARTHROPLASTY KNEE TOTAL Left 01/05/2023 ROBOTIC ARTHROPLASTY KNEE TOTAL performed by Harley Nguyen DO at OR [facility] ARTHROPLASTY KNEE TOTAL Right 03/03/2023 ARTHROPLASTY KNEE TOTAL performed by Cholo Shah MD at OR [facility] BONE DEBRIDEMENT, FIRST 20 CM2 Right 03/10/2023 DEBRIDEMENT SKIN SUBCUTANEOUS TISSUE MUSCLE AND BONE performed by Cholo Shah MD at OR [facility] COLONOSCOPY, DIAGNOSTIC (RECTUM) 09/25/2017 normal, repeat 10 yrs/[facility] CYSTOSCOPY Left 01/18/2016 stent removal EGD, FLEXIBLE, DIAGNOSTIC 09/25/2017 normal bx/[facility] EGD, FLEXIBLE, DIAGNOSTIC N/A 09/25/2022 small hiatal hernia/EGD/CO EGD, W/ENDOSCOPIC US N/A 01/20/2023 [facility], EGD/ EUS, reversed gastric bypass found , EUS - many stones found, fatty liver / no specimenscollected / ENDOSCOPY, ERCP, W/STONE REMOVAL N/A 01/20/2023 [facility], ERCP , Choledocholithiasis found & complete removal accomplished by biliary spihincterotomy, stent placed / no bx's / repeat ERCP 8 weeks follow up / EXPLORATION OF ABDOMEN N/A 09/04/2020 EXPLORATORY LAPAROTOMY performed by Harjeet Li MD at OR [facility] GASTRIC REVISION FOR OBESITY 1980 Gastric Bypass reversed same yr IMPLANTABLE ACCESS SYST PERC 10/22/2020 INFORMATION Left 04/2021 L pacemaker insertion @ [facility]. INJECT DX/THER SUBSTANCE INTERLAMINAR LUMBAR/SACRAL W IMAGE GUIDE 09/19/2021 INJECTION SPINE LUMBAR OR SACRAL performed by Camron Pathak DO at OR [facility] KNEE ARTHROSCOPY, DIAGNOSTIC 1999 Knee Arthroscopy MISCELLANEOUS ORDER ([facility] ONLY) 1979 gastric stapling REMOVAL OF KIDNEY STONE x2 REMOVAL OF TONSILS, AGE 12+ at age 10 REPAIR INITIAL INCISIONAL OR VENTRAL HERNIA; REDUCIBLE N/A 04/27/2017 REPAIR OF VENTRAL HERNIA [facility] DR. WORRE[facility] 04/27/17 REVISE KNEE JOINT REPLACEMENT Right 03/10/2023 TOTAL KNEE REVISION FEMUR AND TIBIA performed by Cholo Shah MD at OR [facility] TOTAL ABD HYSTERECTOMY W/WO REMOVAL OF TUBE(S) N/A 09/04/2020 TOTAL ABDOMINAL HYSTERECTOMY WITH OR WITHOUT TUBES AND OVARIES performed by Harjeet Li MD at OR [facility] Family History Problem Relation Age of Onset Lung Disorder Grandfather (Maternal) Stroke Grandmother (Paternal) Heart Disorder Grandfather (Paternal) Heart Disorder Father Musculo-skeletal Disorder Mother lupus and schleraderma Breast Cancer Aunt (Unspecified) pa aunt Other (skin disorders) Aunt (Unspecified) denies melanoma or other skin disorders Liver disease Brother fatty liver Cancer Nephew sarcoma of appendix Review of patient's allergies indicates: Allergen Reactions [...] tolerated Shellfish-Derived Products Other reaction(s): NAUSEA,DIARRHEA, VOMITING Current Outpatient Medications Medication Sig Dispense Refill [...] standing concentrator DME: [facility] 1 Each 0 Sertraline HCl 100 MG Oral Tablet (Zoloft) [...] 1 Capsule before bedtime. 90 Capsule 10 Omeprazole 20 MG Oral Capsule Delayed Release (PriLOSEC) Take 1 Capsule by mouth in the morning and1 Capsule before bedtime. 180 Capsule 3 Probiotic Daily Oral Capsule Take 1 Capsule by mouth in the morning. Nystatin 825375 UNIT/GM External Powder (Nystop) Apply topically to [...] mouth in the morning. 90 Tablet 3 Bumetanide 2 MG Oral Tablet Take 1 Tablet by mouth 2 times a day in the morning and at noon. 60 Tablet 5 predniSONE 20 MG Oral Tablet (Deltasone) Take 3 tablet daily for 1 month, 2.5 tablets daily for 1 month, 2 tablets daily for 1 month, then 1.5 tablets daily until next visit, every morning with food,as instructed. 300 Tablet 0 Sulfamethoxazole-Trimethoprim 800-160 MG Oral Tablet (Bactrim DS) Take 1 Tablet by mouth once a dayon Thursday, Thursday, and Thursday only. until gone. 15 Tablet 3 amLODIPine Besylate 5 MG Oral Tablet (Norvasc) [...] as needed for Anxiety. 60 Tablet 0 Proventil HFA 108 (90 Base) MCG/ACT Inhalation Aerosol Solution Inhale by mouth 2 Puffs every 4 hours as needed for Wheezing. 6.7 g 3 Acetaminophen 325 MG Oral Tablet (Tylenol) Take 1 Tablet by mouth every 6 hours as needed. Naproxen Sodium 220 MG Oral Capsule Take 1 Capsule by mouth daily as needed for Pain. Amoxicillin 500 MG Oral Capsule (Amoxil) Take 4 Capsules by mouth as needed (one hour prior to dental procedure) for up to 1 dose. 4 Capsule 3 Hydrocortisone (Perianal) 2.5 % External Cream Administer into the rectum 2 times a day. 28 g 1 No current facility-administered medications for this visit. OBJECTIVE/PHYSICAL EXAMINATION: BP 126/68 | Pulse 68 | Resp 17 | LMP 07/05/2003 Wt Readings from Last 3 Encounters: 02/17/24 105.2 kg (232 lb) 02/09/24 105.7 kg (233 lb) 01/27/24 105.7 kg (233 lb) General: NAD, AAO x3, well nourished. Obese. HEENT: Normocephalic. Atraumatic. Conjunctiva pink, noscleral icterus. No carotid bruits, the carotid upstrokes are brisk. No JVD. No HJR Heart: Regular,no arrhythmias normal S-1 and S-2. No murmurs or rubs appreciated. PMI is not displaced. No RV heave. Lungs: Decreased breath sounds bilaterally otherwise clear. Abdomen: Normal bowel sounds. Soft. Nontender. No masses or organomegaly. No abdominal bruits. Extremities: No edema. No clubbing, cyanosis. Pulses: radial=2/4. Neuro: No focal deficits. Labs: Latest Reference Range & Units 02/15/24 12:25 Sodium 135 - 146 mmol/L 142 Potassium 3.5 - 5.1 mmol/L 3.7 Chloride 98 - 107 mmol/L 96 (L) CO2 22 - 32 mmol/L 37 (H) BUN 6 - 20 mg/dL 28 (H) Creatinine 0.5 - 1.0 mg/dL 1.0 Estimated Glomerular Filtration Rate >=60 mL/min 61 Anion Gap 7 - 15 mmol/L 9 Glucose 70 - 120 mg/dL 135 (H) Calcium 8.4 - 10.2 mg/dL 9.9 (L): Data is abnormally low (H): Data is abnormally high ASSESSMENT: 68 year old female Paroxysmal atrial fibrillation/flutter with tachybrady syndrome S/P pacemaker implantation 04/2020. Stopped coumadin due to anemia and bleeding intolerances. Did not tolerate amiodarone due to GI issues and started sotalol April 2020. No significant afib burden on recent device interrogation. Continue sotalol. Chronic anemia - stable. Follows closely with hematology. Morbid obesity with obstructive sleep apnea. Interstitial lung disease chronic respiratory failure- follows with pulm CKD - stable Hypertension - controlled Ovarian CA - in remission PLAN: Stable cardiac symptoms. BP controlled. No recent atrial arrhythmias on device interrogation Stable QT/QTc measurements by prior EKG. Continue sotalol to maintained NSR. Anticoagulation contraindicated. Continue diuretics. Appears euvolemic. CHF tools discussed including daily weights, salt/sodium/fluid restriction, and use of diuretic protocol. Routine device interrogation every 3 months. The patient is to continue all current medications as listed above. No changes were made at today'svisit. Patient is being evaluated in the cardiology office for ongoing care/risk management for Afib; HTN;CHF; pacemaker. I spent a total of 30 minutes on the date of service in preparation, delivery, and documentation ofthe care provided to Orin Bah excluding any time spent in the performance of separately billed services. The patient agrees to the above plan and will call with additional questions or concerns. ER with all emergencies advised. Follow Up: Return in about 6 months (around 2024). Shilpi Bailey PA-C Department of Cardiology This chart was completed in part utilizing [employer] Speech Voice Recognition Software. Grammatical errors, random word insertions, prounoun errors, and incomplete sentences are an occasional consequence of this system due to software limitations, ambient noise, and hardware issues. Any formal questions or concerns about the content, text, or information contained within the body of this dictation should be directly addressed to the provider for clarification. documented in this encounter Nursing Notes * Jose Bryan LPN - 02/19/2024 1:21 PM EDT Patient identified by full name and date of Chief Complaint Patient presents with Follow Up Over 1 year follow up. Palpitations when stressed but not often. SOB a little worse then prior but recently saw Pulm. Denies chest pain, dizziness and edema. Examination Room: 1 Name: Orin Bah Date of : (1955). Reason for Visit: Follow up Interim Hospitalization(s): Denies Problems/Concerns: See chief complaint Chest Pain/SOB: See chief complaint [facility] Discussed: Yes [facility] is a way you can talk to your provider online through e-mail. Would you like to sign up? I can activate it for you? ALREADY ACTIVE Patient was instructed to not get up on the exam table until directed and assisted by their provider; patient is to remain seated in the chair/ wheelchair/ exam table for fall prevention and safety reasons. Patient is aware to have assistance to step down off exam table with personnel. Patient voiced full comprehension of instructions. documented in this encounter Plan of Treatment Upcoming Encounters Date Type Department Care Team (Latest Contact Info) Description 03/08/2024 10:00 AM EDT [facility] Visit [facility] [place] [address] [place] [address] July Diaz RN [address] [place] [address] 03/30/2024 12:10 PM EDT Office Visit [facility] [address] [place] [address] Kat Hawthorne DO [address] [place] [address] 04/18/2024 10:45 AM EDT Hospital Encounter ENDO [facility], Endoscopy Suite, [address], [address] [place] [address] Fish Ahmadi MD [address] [place] [address] 04/18/2024 10:45 AM EDT - 04/18/2024 12:30 PM EDT Surgery ENDO [facility], Endoscopy Suite, [address], [address] [place] [address] Fish Ahmadi MD [address] [place] [address] ESOPHAGOGASTRODUODENOSCOPY (EGD), FLEXIBLE, TRANSORAL, ENDOSCOPIC ULTRASOUND 05/05/2024 10:30 AM EDT Office Visit Orthopaedics, [place] [address] [place] [facility] [place] [address] Cholo Shah MD [address], [place] [id number] 05/10/2024 10:30 AM EDT Office Visit Gynecology/Oncol ogy, [place] [address] [facility], [place] [id number] Jeanie Gunter PA-C [address] [facility], [place] [id number] 08/29/2024 11:00 AM EDT Office Visit Cardiology, [facility] [address] [facility] [place] [address] Shilpi Bailey PA-C [address] [place] [address] Scheduled Procedures Name Priority Associated Diagnoses Date/Ti me ESOPHAGOGASTRODUODENOSCOPY ( EGD), FLEXIBLE, TRANSORAL, ENDOSCOPIC ULTRASOUND Choledocholithiasis 04/18/2024 10:45 AM EDT ENDOSCOPIC RETROGRADE CHOLANGIOPANCREATOGRAPHY (ERCP) DIAGNOSTIC Choledocholithiasis 04/18/2024 10:45 AM EDT ESOPHAGOGASTRODUODENOSCOPY ( EGD), FLEXIBLE, TRANSORAL, DIAGNOSTIC Choledocholithiasis 04/18/2024 10:45 AM EDT COLONOSCOPY FLEXIBLE PROXIMA L DIAGNOSTIC Recall Colon cancer screening Scheduled Referrals Name Type Priority Associated Diagnoses Orde r Schedule CARDIOLOGY REFERRAL OP Referral Within 10 days (routine) Pulmonary HTN (HCC) PAT (paroxysmal atrial tachycardia) Ordered: 10/19/2023 Health Maintenance Due Date Last Done Comments [...] COPD 03/10/2024 03/10/2023 CKD PHOS USE SMARTSET 88061 03/16/2024 05/0 06/2023, 03/15/2023, 03/14/2023, Additional history exists GFR 08/16/2024 02/15/2024, 11/11, 09/17/2023, Additional history exists Mammogram 12/09/2024 12/09/2023, 04/10, 03/07/2021, Additional history exists CKD HGB USE SMARTSET 39698 02/14/202502/14, 02/15/2024, 12/09/2023, Additional history exists Lipid [...] this encounter Medical Devices Implanted Type Area Millroom Supervisor Device Identifier Shelf Expiration Date Model / Serial / Lot Cement Bone Simplex Hv & G - [id number] Implanted:Qty: 2 on 01/05/2023 by Harley Nguyen, DO at OR [facility] Left: Knee [employer] : ORTHOPAEDICS 06/08/2024 6195-1-010 / / [id number] Component Femoral Size 5 - [id number] Implanted:Qty: 1 on 01/05/2023 by Harley Nguyen DO at OR [facility] Left: Knee [employer] : ORTHOPAEDICS 08/09/2026 5510-F-501 / / [id number] Knee Tria Syetric X3 10x36 - [id number] Implanted:Qty: 1 on 01/05/2023 by Harley Nguyen DO at OR [facility] Left: Knee [employer] : ORTHOPA[employer] 09/24/2027 5550-G-360 -E / / [id number] Baseplate Tib 5 Knee - [id number] Implanted:Qty: 1 on 01/05/2023 by Harley Nguyen DO at OR [facility] Left: Knee [employer] : ORTHOPAEDICS 12/14/2027 5521-B-500 / / [id number] Knee X3 Ins Pos Cs Sz5 9 - [id number] Implanted:Qty: 1 on 01/05/2023 by Harley Nguyen DO at OR [facility] Left: Knee [employer] : ORTHOPAEDICS 11/19/2027 5531-G-509 -E / / [id number] Cement Bone Full Mix Surg Simp - [id number] Implanted:Qty: 1 on 03/03/2023 by Cholo Shah MD at OR [facility] Right: Knee [employer] : ORTHOPAEDICS 05/08/2025 6191-1-010 / / [id number] Knee Tib Comp Poly Krh 8 Lg - [id number] Implanted:Qty: 1 on 03/03/2023 by Cholo Shah MD at OR [facility] Right: Knee [employer] : ORTHOPAEDICS 07/19/2023 6485-2-308 / / [id number] Knee Hrhk Mod Rot Hng Bushing - [id number] Implanted:Qty: 1 on 03/03/2023 by Cholo Shah MD at OR [facility] Right: Knee [employer] : ORTHOPAEDICS 01/09/2027 6481-2-110 / / [id number] Knee Hrhk Mod Rot Hng [place]ushing - [id number] Implanted:Qty: 1 on 03/03/2023 by Cholo Shah MD at OR [facility] Right: Knee [employer] : ORTHOPAEDICS 11/21/2026 6481-2-110 / / [id number] Knee Stem Crv Mod Mrs 54n445 - [id number] Implanted:Qty: 1 on 03/03/2023 by Cholo Shah MD at OR [facility] Right: Knee [employer] : ORTHOPAEDICS 10/02/2026 6485-3-715 / / [id number] Tib Mrh Cross Bear Long Xs/Xl - [id number] Implanted:Qty: 1 on 03/03/2023 by Cholo Shah MD at OR [facility] Right: Knee [employer] : ORTHOPAEDICS 12/05/2025 6481-2-103 / / [id number] Knee Tib Bumper Rot Hng Nue - [id number] Implanted:Qty: 1 on 03/03/2023 by Cholo Shah MD at OR [facility] Right: Knee [employer] : ORTHOPAEDICS 07/15/2027 6481-2-130 / / [id number] Distal Femoral Component Implanted:Qty: 1 on 03/03/2023 by Cholo Shah MD [facility] [facility] Right: Knee ROS[employer] : ORTHOPAEDICS 08/23/2023 6495-2-040 / / [id number] Knee Axle Hrhk Rot Mod Hng - [id number] Implanted:Qty: 1 on 03/03/2023 by Cholo Shah MD at [place] [facility] Right: Knee ROS[employer]IA : ORTHOPAEDICS 06/30/2027 6481-2-120 / / [id number] Restrictors Med Cmnt I885-0947 - [id number] Implanted:Qty: 1 on 03/03/2023 by Cholo Shah MD at [place] [facility] Right: Knee ROS[employer]IA : ORTHOPAEDICS 11/18/2027 P077-2905 / / Cement Bone Full Mix Surg Simp - [id number] Implanted:Qty: 1 on 03/03/2023 by Cholo Shah MD at [place] [facility] Right: Knee [employer] : ORTHOPAEDICS 07/09/2025 6191-1-010 / / [id number] Cement Bone Full Mix Surg Simp - [id number] Implanted:Qty: 1 on 03/03/2023 by Cholo Shah MD at [place] [facility] Right: Knee [employer] : ORTHOPAEDICS 06/08/2025 6191-1-010 / / [id number] Cement Bone Full Mix Surg Simp - [id number] Implanted:Qty: 1 on 03/03/2023 by Cholo Shah MD at [place] [facility] Right: Knee ROS[employer]IA : ORTHOPAEDICS 05/08/2025 6191-1-010 / / [id number] Knee Fem Gmrs Dis Std R - [id number] Implanted:Qty: 1 on 03/10/2023 by Cholo Shah MD at [place] [facility] Right: Knee ROS[employer]IA : ORTHOPAEDICS 10/21/2027 6495-2-040 / / [id number] Knee Hrhk Mod Rot Hng Bushing - [id number] Implanted:Qty: 1 on 03/10/2023 by Cholo Shah MD at [place] [facility] Right: Knee ROS[employer]IA : ORTHOPAEDICS 01/29/2027 6481-2-110 / / [id number] Knee Axle Hrhk Rot Mod Hng - [id number] Implanted:Qty: 1 on 03/10/2023 by Cholo Shah MD at [facility] Right: Knee ROS[employer]IA : ORTHOPAEDICS 09/15/2027 6481-2-120 / / [id number] Tib Mrh Cross Bear Long Xs/Xl - [id number] Implanted:Qty: 1 on 03/10/2023 by Cholo Shah MD at [facility] Right: Knee ROS[employer]IA : ORTHOPAEDICS 09/30/2027 6481-2-103 / / [id number] Knee Hrhk Mod Rot Hng Bushing - [id number] Implanted:Qty: 1 on 03/10/2023 by Cholo Shah MD at [place] [facility] Right: Knee ROS[employer]IA : ORTHOPAEDICS 04/24/2027 6481-2-110 / / [id number] Knee Tib Bumper Rot Hng Nue - [id number] Implanted:Qty: 1 on 03/10/2023 by Cholo Shah MD at [place] [facility] Right: Knee ROS[place]IA : ORTHOPAEDICS 10/15/2027 6481-2-130 / / [id number] documented as of this encounter Visit Diagnoses Diagnosis PAF (paroxysmal atrial fibrillation) (HCC)- Primary Atrial fibrillation Tachy-lakeisha syndrome (HCC) Sinoatrial node dysfunction Presence of cardiac pacemaker Cardiac pacemaker in situ Essential hypertension with goal blood pressure less than 130/80 Heart failure with preserved left ventricular function (HFpEF) (HCC) Heart failure, unspecified Choledocholithiasis Calculus of bile duct without mention of cholecystitis or obstruction documented in this encounter Advance Directives Documents on File Type Date Recorded Patient Grey Goods Tester Expl 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 Care Teams Painting Manager Relationship Specialty Start Date End Date Kat Hawthorne DO [address] [place] [id number] PCP - General Family Medicine 08/20/22 documented as of this encounter"
--- OUTSIDE RECORDS SUMMARY | 2024-04-16 12:36 | External Medical Summary ---
Author Name Unknown Address Unknown Organization K0G[facility] [place] [address] [place] [address] Laboratory Report Ordering Provider Test Date Status ANGEL GUERRERO 02/15/2024 12:25:37 Final Observation Date Value Abnormality Reference (Units ) Status BUN 02/15/2024 12:25:37 28 Above high normal 6-20 (mg/dL) Final Creatinine 02/15/2024 12:25:37 1.0 0.5-1.0 (mg/dL) Final Glomerular filtration rate/1.73 sq M.predicted [Volume Rate/Area] in Serum, Plasma or Blood by Creatinine-based formula (CKD-EPI) 02/15/2024 12:25:37 61 >=60 (mL/min) Final eGFR is calculated based on the CKD-EPI 2020 equation Sodium 02/15/2024 12:25:37 142 135-146 (m mol/L) Final Potassium 02/15/2024 12:25:37 3.7 3.5-5.1 (m mol/L) Final Cl 02/15/2024 12:25:37 96 Below low normal 98- 107 (mmol/L) Final CO2 02/15/2024 12:25:37 37 Above high normal 22 -32 (mmol/L) Final Anion gap 02/15/2024 12:25:37 9 7-15 (mmol /L) Final Glucose 02/15/2024 12:25:37 135 Above high normal 70 -120 (mg/dL) Final Albumin 02/15/2024 12:25:37 4.0 3.8-5.0 (g /dL) Final AST (Aspartate aminotransferase) 02/15/2024 12:25:37 36 Above high normal 10-35 (U/L) Final Alk Phos 02/15/2024 12:25:37 83 35-130 (U/ L) Final Bilirubin, Total 02/15/2024 12:25:37 0.5 <=1 .2 (mg/dL) Final Calcium 02/15/2024 12:25:37 9.9 8.4-10.2 ( mg/dL) Final Protein 02/15/2024 12:25:37 6.9 6.0-8.3 (g /dL) Final ALT (Alanine aminotransferase) 02/15/2024 12:25:37 49 Above high normal 10-35 (U/L) Final Performing Location [facility] [facility] [address]
--- OUTSIDE RECORDS SUMMARY | 2024-04-16 12:36 | External Medical Summary | Summary of Care ---
Author Name Unknown Organization [facility] Address [address] [place] [address] Phone [phone] Care Team Providers Care Chicken Dresser Name Role Phone Kat Hawthorne DO Primary Care Provider [phone] Reason for Visit * Reason Comments Pulmonary Function Test PFT without bron chodilator per provider's request. Oxygen Assessment Pt requested to do w alk in [place]. That is where she usually does her walk test and prefers to do there. Encounter Details Date Type Department Care Team (Latest Contact Info) Description 02/09/2024 1:00 PM EDT PulmDiagnostic Pulmonary Function Lab, [facility] [address] [place] [address] [place], [address] [facility] [place] [address] ILD (interstitial lung disease) ([facility])*; Chronic respiratory failure with hypoxia ([facility]) Allergies Active Allergy Reactions Criticality Noted Date [...] IN GASIndications:ILD (interstitial lung disease) ([facility]),Chronic respiratory failure with hypoxia (HCC) Use 2 LPM with exertion and 3 LPM with sleep. Needs small portable tanks, standing concentrator DME: [facility] 1 Each 0 07/02/2022 Active Proventil HFA 108 (90 Base) MCG/ACT Inhalation Aerosol SolutionIndications: ILD (interstitial lung disease) ([facility]) Inhale by mouth 2 Puffs every 4 [...] mouth in the morning. 0 Active Nystatin 450129 UNIT/GM External Powder (Nystop) Apply topically to [...] money to buy more. Never true 02/04/20 23 Within the past 12 months, t he [...] Sign Reading Time Taken Comments Blood Pressure - - Pulse - - Temperature - - Respiratory Rate - - Oxygen Saturation - - Inhaled Oxygen Concentration - - Weight 105.7 kg (233 lb) 02/09/2024 1:05 PM EDT Height 172.7 cm (5' 8") 02/09/2024 1:05 PM EDT Body Mass Index 35.43 02/09/2024 1:05 PM EDT documented in this encounter Functional Status Functional [...] No 02/28/2023 documented as of this encounter Nursing Notes * Maria A Tobin RRT - 02/09/2024 1:12 PM EDT Orin Bah was identified by name, Date of : (1955), and . Vitals were obtained for testing from pt. Requested to not be weighed. Body mass index is 35.43 kg/m. Pt has a0.01 ppd for 5 years smoking history and quit 12.4 years ago, Pt only smoked on weekends when went to bars. Pt wears 4 liters at rest, 5 liters at at night, and 5-7 liters with exertion. 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 Spirometry and DLCO performed without bronchodilator per providers request. Pt requested to do walk in [place]. That is where she usually does her walk test and prefers to do there. documented in this encounter Plan of Treatment Upcoming Encounters Date Type Department Care Team (Latest Contact Info) Description 1:00 PM EDT Imaging Radiology [address], [address] [place] [address] 4 1:00 PM EDT Home Visit Care Coordination and Integration [address] [place] [address] Cinthya Weber, [facility] [employer] Recovery Worker [address] [place] [address] 4 10:30 AM EDT Office Visit Pulmonary Medicine, [place] [address] [place] [facility] [place] [address] Raulito Cosme MD [address] [place] [address] 4 1:30 PM EDT Office Visit Cardiology, [facility] [address] [place] [address] Shilpi Bailey PA-C [address] [facility] [place] [address] 4 10:00 AM EDT Home Visit [facility], [facility] [address] [place] [address] July Diaz, RN [address] [place] [address] 4 12:10 PM EDT Office Visit [facility] [address] [place] [id number] Kat Hawthorne DO [address] [place] [address] 4 9:45 AM EDT Hospital Encounter ENDO [facility], Endoscopy Suite, [facility] 1, [address] [facility] [place] [address] Fish Ahmadi MD [address] [place] [address] 4 9:45 AM EDT - 4 11:30 AM EDT Surgery ENDO [facility], Endoscopy Suite, HFAM 1, [address] [place] [address] Fish Ahmadi MD [address] [place] [address] ESOPHAGOGASTRODUODENOSCOPY (EGD), FLEXIBLE, TRANSORAL, ENDOSCOPIC ULTRASOUND 4 10:30 AM EDT Office Visit Orthopaedics, [place] [address] [place] [address] Cholo Shah MD [address] [place] [address] 4 10:30 AM EDT Office Visit Gynecology/Oncolo , [place] [address] [place] [address] Jeanie Gunter PA-C [address] [place] [address] Pending Results Name Type Priority Associated Diagnoses Date /Time BASIC SPIROMETRY Procedures Routine ILD (interstitial lung disease) ([facility]) 02/09/2024 1:03 PM EDT DIFFUSION CAPACITY (DLCO) Procedures Routine ILD (interstitial lung disease) ([facility]) 02/09/2024 1:03 PM EDT Scheduled Procedures Name Priority Associated Diagnoses Date/Ti dc ESOPHAGOGASTRODUODENOSCOPY ( EGD), FLEXIBLE, TRANSORAL, ENDOSCOPIC ULTRASOUND [...] COPD 03/10/2024 03/10/2023 CKD PHOS USE SMARTSET 98825 03/16/202406/2023, 03/15/2023, 03/14/2023, Additional history exists GFR 06/08/2024 12/09/2023, 07/2023, 07/14/2023, Additional history exists CKD HGB USE SMARTSET 95079 12/09/202412/09, 12/09/2023, 09/17/2023, Additional history exists Mammogram [...] this encounter Medical Devices Implanted Type Area Sewing Machine Tester Device Identifier Shelf Expiration Date Model / Serial / Lot Cement Bone Simplex Hv & G - [id number] Implanted:Qty: 2 on 01/05/2023 by Harley Nguyen DO at OR [facility] Left: Knee ROSALIA : ORTHOPAEDICS 06/08/2024 6195-1-010 / / [id number] Component Femoral Size 5 - [id number] Implanted:Qty: 1 on 01/05/2023 by Harley Nguyen DO at OR [facility] Left: Knee ROSALIA : ORTHOPAEDICS 08/09/2026 5510-F-501 / / [id number] Knee Tria Syetric X3 10x36 - [id number] Implanted:Qty: 1 on 01/05/2023 by Harley Nguyen DO at OR [facility] Left: Knee ROSALIA : ORTHOPAEDICS 09/24/2027 5550-G-360 -E / / [id number] Baseplate Tib 5 Knee - [id number] Implanted:Qty: 1 on 01/05/2023 by Harley Nguyen DO at OR [facility] Left: Knee ROS[employer]IA : ORTHOPAEDICS 12/14/2027 5521-B-500 / / [id number] Knee X3 Ins Pos Cs Sz5 9 - [id number] Implanted:Qty: 1 on 01/05/2023 by Hraley Nguyen DO at OR [facility] Left: Knee ROS[employer]IA : ORTHOPAEDICS 11/19/2027 5531-G-509 -E / / [id number] Cement Bone Full Mix Surg Simp - [id number] Implanted:Qty: 1 on 03/03/2023 by Cholo Shah MD at OR [facility] Right: Knee ROS[employer]IA : ORTHOPAEDICS 05/08/2025 6191-1-010 / / [id number] Knee Tib Comp Poly Krh 8 Lg - [id number] Implanted:Qty: 1 on 03/03/2023 by Cholo Shah MD at OR [facility] Right: Knee ROS[employer]IA : ORTHOPAEDICS 07/19/2023 6485-2-308 / / [id number] Knee Hrhk Mod Rot Hng Bushing - [id number] Implanted:Qty: 1 on 03/03/2023 by Cholo Shah MD at OR [facility] Right: Knee ROS[employer]IA : ORTHOPAEDICS 01/09/2027 6481-2-110 / / [id number] Knee Hrhk Mod Rot Hng Bushing - [id number] Implanted:Qty: 1 on 03/03/2023 by Cholo Shah MD at OR [facility] Right: Knee ROS[employer] : ORTHOPAEDICS 11/21/2026 6481-2-110 / / [id number] Knee Stem Crv Mod Mrs 59t962 - [id number] Implanted:Qty: 1 on 03/03/2023 by Cholo Shah MD at OR [facility] Right: Knee [employer] : ORTHOPAEDICS 10/02/2026 6485-3-715 / / [id number] Tib Mrh Cross Bear Long Xs/Xl - [id number] Implanted:Qty: 1 on 03/03/2023 by Cholo Shah MD at OR [facility] Right: Knee ROS[employer] : ORTHOPAEDICS 12/05/2025 6481-2-103 / / [id number] Knee Tib Bumper Rot Hng Nue - [id number] Implanted:Qty: 1 on 03/03/2023 by Cholo Shah MD at OR [facility] Right: Knee ROS[employer] : ORTHOPAEDICS 07/15/2027 6481-2-130 / / [id number] Distal Femoral Component Implanted:Qty: 1 on 03/03/2023 by Cholo Shah MD at OR [facility] Right: Knee ROS[employer]IA : ORTHOPAEDICS 08/23/2023 6495-2-040 / / [id number] Knee Axle Hrhk Rot Mod Hng - [id number] Implanted:Qty: 1 on 03/03/2023 by Cholo Shah MD at OR [facility] Right: Knee ROSALIA : ORTHOPAEDICS 06/30/2027 6481-2-120 / / [id number] Restrictors Med Cmnt S774-6641 - [id number] Implanted:Qty: 1 on 03/03/2023 by Cholo Shah MD at OR [facility] Right: Knee ROS[employer] : ORTHOPAEDICS 11/18/2027 N822-2009 / / Cement Bone Full Mix Surg Simp - [id number] Implanted:Qty: 1 on 03/03/2023 by Cholo Shah MD at OR [facility] Right: Knee ROS[employer] : ORTHOPAEDICS 07/09/2025 6191-1-010 / / [id number] Cement Bone Full Mix Surg Simp - [id number] Implanted:Qty: 1 on 03/03/2023 by Cholo Shah MD at OR [facility] Right: Knee ROSALIA : ORTHOPAEDICS 06/08/2025 6191-1-010 / / [id number] Cement Bone Full Mix Surg Simp - [id number] Implanted:Qty: 1 on 03/03/2023 by Cholo Shah MD at OR [facility] Right: Knee ROSALIA : ORTHOPAEDICS 05/08/2025 6191-1-010 / / [id number] Knee Fem Gmrs Dis Std R - [id number] Implanted:Qty: 1 on 03/10/2023 by Cholo Shah MD at OR [facility] Right: Knee ROS[employer]IA : ORTHOPAEDICS 10/21/2027 6495-2-040 / / [id number] Knee Hrhk Mod Rot Hng Bushing - [id number] Implanted:Qty: 1 on 03/10/2023 by Cholo Shah MD at OR [facility] Right: Knee ROS[employer] : ORTHOPAEDICS 01/29/2027 6481-2-110 / / [id number] Knee Axle Hrhk Rot Mod Hng - [id number] Implanted:Qty: 1 on 03/10/2023 by Cholo Shah MD at OR [facility] Right: Knee ROS[employer] : ORTHOPAEDICS 09/15/2027 6481-2-120 / / [id number] Tib Mrh Cross Bear Long Xs/Xl - [id number] Implanted:Qty: 1 on 03/10/2023 by Cholo Shah MD at OR [facility] Right: Knee ROS[place] : ORTHOPAEDICS 09/30/2027 6481-2-103 / / [id number] Knee Hrhk Mod Rot Hng Bushing - [id number] Implanted:Qty: 1 on 03/10/2023 by Cholo Shah MD at OR [facility] Right: Knee ROSALIA : ORTHOPAEDICS 04/24/2027 6481-2-110 / / [id number] Knee Tib Bumper Issac Hayden Nue - [id number] Implanted:Qty: 1 on 03/10/2023 by Cholo Shah MD at OR [facility] Right: Knee ROS[place] : ORTHOPAEDICS 10/15/2027 6481-2-130 / / [id number] documented as of this encounter Procedures Procedure Name Priority Date/Time Associated Diagnosis Comments DIFFUSION CAPACITY (DLCO) Routine 02/09/2024 1:03 PM EDT ILD (interstitial lung disease) (HCC) BASIC SPIROMETRY Routine 02/09/2024 1:03 PM EDT ILD (interstitial lung disease) (HCC) documented in this encounter Visit Diagnoses Diagnosis ILD (interstitial lung disease) (HCC)- Primary Postinflammatory pulmonary fibrosis Chronic respiratory failure with hypoxia (HCC) Chronic respiratory failure Choledocholithiasis Calculus of bile duct without mention of cholecystitis or obstruction documented in this encounter Advance Directives Documents on File Type Date Recorded Patient Locomotive Lubricating Systems Clerk Expl 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 Care Teams Chicken Dresser Relationship Specialty Start Date End Date Kat Hawthorne DO [address] [place] [address] PCP - General Family Medicine 08/20/22 documented as of this encounter
--- OUTSIDE RECORDS SUMMARY | 2024-04-16 12:36 | External Medical Summary | Summary of Care ---
Author Name Unknown Organization [facility] Address [address] [place] [address] Phone [phone] Care Team Providers Care Watch Adjuster Name Role Phone Kat Hawthorne DO Primary Care Provider [phone] Reason for Visit * Reason Comments Follow Up ILD Encounter Details Date Type Department Care Team (Late st Contact Info) Description 02/17/2024 10:30 AM EDT Office Visit Pulmonary Medicine, [place] [address] [place] [address] Raulito Cosme MD [address] [place] [address] ILD (interstitial lung disease) (HCC)*; Chronic respiratory failure with hypoxia (HCC) Allergies Active Allergy Reactions Criticality Noted [...] as of this encounter (statuses as of 02/17/2024) Medications Medication Sig Dispensed Refills Start Date [...] IN GASIndications:ILD (interstitial lung disease) ([facility]),Chronic respiratory failure with hypoxia (HCC) Use 2 LPM with exertion and 3 LPM with sleep. Needs small portable tanks, standing concentrator DME: [facility] 1 Each 0 07/02/2022 Active Proventil HFA 108 (90 Base) MCG/ACT Inhalation Aerosol SolutionIndications: ILD (interstitial lung disease) ([facility]) Inhale by mouth 2 Puffs [...] mouth in the morning. 0 Active Nystatin 105351 UNIT/GM External Powder (Nystop) Apply topically to [...] as of this encounter (statuses as of 02/17/2024) Active Problems Problem Noted Date Diagnosed Date [...] 100 mg BID x 14 days Old CA (myocardial infarction) 04/14/2023 Hyperlipidemia 04/14/2023 Hereditary hemolytic anemia, unspecified 023 History of recent blood transfusion 01/13/2023 S/P total knee arthroplasty, left 01/05/2023 Prediabetes 12/22/2022 Overview: Per Prediabetes protocol History of ovarian cancer 12/19/2022 Hypertensive heart disease with heart failure 02 /08/2023 Severe obesity with body mas s index [...] as of this encounter (statuses as of 02/17/2024) Resolved Problems Problem Noted Date Diagnosed Date [...] as of this encounter (statuses as of 02/17/2024) Immunizations Name Administration Dates Next Due COVID-19 mRNA, LNP-s, No Pre serve, 2-Dose Series (Stick and Play) 08/23/2021,01/26/2021,01/05/2021 Pneumococcal Conjugate Vacc, 13 Valent (Prevnar) [...] Passive Smoke Exposure: Never Smokeless Tobacco: Never Tobacco Cessation:Counseling Given: Not Answered Comments:Only smoked on weekends when went to bars. Alcohol Use Standard [...] Sign Reading Time Taken Comments Blood Pressure 131/72 02/17/2024 10:22 AM EDT Pulse 69 02/17/2024 10:22 AM EDT Temperature 37.3 C (99.1 F) 02/17/2024 10:22 AM E DT Respiratory Rate - - Oxygen Saturation 96% 02/17/2024 10:22 AM EDT Inhaled Oxygen Concentration - - Weight 105.2 kg (232 lb) 02/17/2024 10:22 AM EDT Height - - Body Mass Index 35.28 02/09/2024 1:05 PM EDT documented in this [...] this encounter Patient Instructions * Patient Instructions* Kae Patel CRNP - 02/17/2024 11:17 AM EDT Continue prednisone at 20 mg x 2 weeks. Then decrease dose to 15 mg. Check in with your Reel Slitter to see what dose of Prednisone you should be on after this for your anemia. When you reduce the dose of prednisone to 15 mg / day you can stop the Bactrim. Continue the oxygen at 5 lpm at rest and 10 lpm with oxymizer with exertion. I will call you with the results from your ABG. Follow up with Dr. Cosme in 3 months. documented in this encounter Progress Notes * Kae Patel CRNP - 02/17/2024 12:32 PM EDT Latest Reference Range & Units 02/17/24 11:34 pH, Arterial 7.350 - 7.450 units 7.357 pCO2, Arterial 35.0 - 45.0 mmHg 67.4 (HH) pO2, Arterial 75.0 - 100.0 mmHg 105.0 (H) Patient contacted to make her aware of chronic hypercapnia. Will refer her to clinic for furtherevaluation / discussion of initiation of NIV. No further testing will be needed day of RF visit. TAWANNA Ordonez * Kae Patel CRNP - 02/17/2024 10:38 AM EDT Images from the original note were not included. PULMONARY MEDICINE OUTPATIENT CLINIC NOTE NAME: Orin Bah : 1955 02/17/2024 History: Ms. Bah is a 68 year old female seen today for follow-up of ILD. Initially started on O2 in 2015during hospital admission, told she had abnormal CT scan with "mosaic pattern". Followed with Dr. Lucas at [facility] and told she had HP. Patient has a history of chronic hypoxic RF, pulmonary HTN, paroxysmal atrial tachycardia, PAF, tachy-lakeisha syndrome cardiac pacer in situ, ovarian cancer s/p TAHBSO (2019), HTN, HFpEF, BERRY not on CPAP, hereditary hemolytic anemia, chronic anemia, knee replacement (12/2022) c/b anemia requiring blood transfusion. Readmitted several times from rehab for acute respiratory failure, CHF & fall w/ femur fx again requiring surgery with multiple transfusions. Required admission early fall 2022 for respiratory issues and treated with BPAP & HFNC. Case discussed in [facility] 10/23/2023, consensus was that bronch was too risky, patient advised to start prednisone taper as follows: 60 mg x 1 month, 50 mg x 1 month, 40 mg x 1 month, 30 mg x 1 month then follow up PFTs & CT Chest. Also started on Bactrim DS M/W/F. Last seen by Dr. Cosme and id on 12/17/2023 in ILD clinic. Advised to continue Prednisone taper and have re-evaluation by surgical team prior to surgery. Interim History: Reports that she has been feeling more "short winded" over the past week or so. Thinking this may be related to her hemoglobin dropping. ?? If this is related to her prednisone taper in setting of hemolytic anemia. Previously managed on 10 mg daily by her Reel Slitter. She is minimally active due to her oxygen levels being low. Normally wears 5 lpm O2 at rest, she has an oxymizer that she will use if she needs to walk any amount of distance. Usually doesn't increase her O2 flow. She mostly will stand and pivot or remains in her WC to perform chores around her home. She is able to dress and bathe herself. Continues to cook and wash her dishes. She will take her time and has minimal issues with her breathing related to this. Currently on prednisone 20 mg daily (since 02/12/2024), minimal change to her breathing with decreasing dose. She is taking the bactrim on //. Her surgery is scheduled for [place] at [facility]. MMRC Dyspnea Scale = 3 (I stop for breath after walking about 100 yards or after a few minutes on ground level) Respiratory Symptoms: Cough: rare Sputum: more in the morning, intermittent, will clear up with Mucinex Wheezing: denies Reflux: some breakthrough symptoms despite use of Omeprazole Sinus / Allergy symptoms: clear rhinorrhea, taking Claritin & Singulair Nocturnal: Endorses orthopnea with laying flat- sleeps with head elevated in power recliner. Deniesparoxysmal nocturnal dyspnea. 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 Residence: former apartment- had mold in her kitchen; none in current home; lived in sister's basement for a year- it was damp Birds / Pets: none Past Medical History: Past Medical History: Diagnosis Date Acute blood loss anemia 03/04/2023 Anemia Anxiety Cancer (HCC) ovarian Class 2 obesity in adult 04/23/2010 Per Obesity Protocol, #19 ICD-10 update of inactive term MORE SPECIFIED CODE LISTED ON PL Clostridium difficile infection Depressive disorder, not elsewhere classified Dysmenorrhea Esophageal reflux HTN, goal below 140/90 Hypertension with congestive heart failure and renal failure (HCC) 04/14/2023 Hypertensive kidney disease with stage 3a chronic kidney disease (HCC) 09/17/2020 Per CKD protocol Hyponatremia 03/09/2023 Kidney disease, chronic, stage III (GFR 30-59 ml/min) ([facility]) Kidney stone Lumbar stenosis Nephrolithiasis 12/29/2016 Nocturnal hypoxia 09/01/2019 OA (osteoarthritis) Obesity, morbid (more than 100 lbs over ideal weight or BMI > 40) ([facility]) 04/23/2010 Per Obesity Protocol, #19 ICD-10 update of inactive term BERRY (obstructive sleep apnea) PAF (paroxysmal atrial fibrillation) ([facility]) Recurrent UTI Sciatica SOB (shortness of breath) 09/10/2012 Medications: Current Outpatient Medications Medication Sig Dispense Refill [...] by mouth daily as needed for Pain. Probiotic Daily Oral Capsule Take 1 Capsule by mouth in the morning. Nystatin 740728 UNIT/GM External Powder (Nystop) Apply topically to [...] morning and at noon. 60 Tablet 5 Amoxicillin 500 MG Oral Capsule (Amoxil) Take [...] as needed for Anxiety. 60 Tablet 0 No current facility-administered medications for this visit. Review of Systems: Constitutional: Denies f/s/c. Weight stable. Appetite preserved. Skin: Denies rashes or lesions. HEENT: Denies excessive dry eye, bleeding gums, dry mouth or hoarseness. Denies difficulty swallowing. (+) intermittent nose bleeds Cardiac: Denies chest pain, palpitations, or edema. No dizziness with standing. Resp: See History Abd: Denies pain, nausea, vomiting, diarrhea, constipation, bloody or black tarry stools. Neuro: Denies headaches, numbness, tingling, loss of balance Musculoskeletal: Denies muscle pain, cramps, or weakness. Denies new joint pain or red swollen joints. Remainder of the ROS as above or is negative / non contributory. Exam: BP 131/72 | Pulse 69 | Temp 37.3 C (99.1 F) (Tympanic) | Wt 105.2 kg (232 lb) | LMP 07/05/2003 | SpO2 96% | BMI 35.28 kg/m | BSA 2.25 m General: Alert, no apparent distress, in WC on O2 Eyes: Conjunctiva are pink and non-injected, sclera clear Oropharynx: No exudate, no erythema. Buccal mucosa normal, tongue very dry & large for oral cavity Neck: Supple, thyroid normal size, non-tender Lymph: No palpable cervical or supraclavicular lymphadenopathy Cardiac: Regular rate & rhythm, no murmur Resp: Respirations even and unlabored. Decreased breath sounds throughout, bibasilar crackles to auscultation. No wheezes or rhonchi auscultated. Pulses: radial=2/4 bilaterally Abdomen: abdomen soft,non-tender,+bowel sounds Extremities: no joint deformities, no appreciable edema- BLE wrapped. No clubbing, no cyanosis. (+)scattered ecchymosis BUE Neurologic: Alert & oriented x 3 with fluent speech, gait- not assessed Skin: Skin color pale, warm, dry Labs: Latest Reference Range & Units 07/03/23 14:30 09/17/23 15:15 BNP, NT-Pro <300 pg/mL 626 (H) 2,147 (H) Latest Reference Range & Units 02/15/24 12:25 CO2 22 - 32 mmol/L 37 (H) BUN 6 - 20 mg/dL 28 (H) Creatinine 0.5 - 1.0 mg/dL 1.0 Estimated Glomerular Filtration Rate >=60 mL/min 61 Latest Reference Range & Units 02/15/24 12:25 HGB 12.0 - 15.3 g/dL 10.5 (L) HCT 36.0 - 45.2 % 35.4 (L) Latest Reference Range & Units 02/15/24 12:25 AST 10 - 35 U/L 36 (H) ALT 10 - 35 U/L 49 (H) Alkaline Phosphatase 35 - 130 U/L [address]: 06/23/2023: IMPRESSION: 1. Progression of interstitial and fibrotic disease compared to previous. There is some air trapping on expiratory views 2. Increased ground-glass and reticulonodular markings especially at the lung bases may represent progression of disease versus superimposed atypical or viral infiltrate. Recommend attention on follow-up. CT Chest: 02/15/2024: reviewed with Dr. Cosme PFTs: 12/10/2016 05/13/2023 02/09/2024 FVC 2.59(72%) 1.43(43%) 1.12(34%) FEV1 2.09(75%) 1.08(42%) 0.90(35%) Obs Index 81 75 80 TLC 4.30(77%) DLCO 12.80(61%)scottie 8.42(40%) 3MWT: 10/22/2023: OXIMETRY: 70% at rest on room air OXIMETRY - OXYGEN 4 L/MIN: 92% at rest, 86% after a 1.5 minute walk OXIMETRY - OXYGEN 6 L/MIN w/ oxymizer: 96% at rest, 82% after a 2 minute walk OXIMETRY - OXYGEN 10 L/MIN w/ oxymizer: 98% at rest, 85% after a 2 minute walk. Echo: 06/18/2023: Assessment: DPLD--> presumed CHP; no significant improvement of imaging and noted decline of PFTs despite use of high dose prednisone Chronic hypoxic RF--> wearing 4-5 lpm ATC; does not routinely ambulate around her home; has highflow O2 concentrator if needed Concern for chronic hypercapnia--> FEV1 < 1, previous evidence of elevated CO2 and serum [id number] in setting of obesity, although on loop diuretics Hereditary hemolytic anemia following with Hematology--> baseline use of prednisone 10 mg / day Obesity--> Body mass index is 35.28 kg/m. ECHO evidence of mild PH Previous placement of biliary stent w/ plan for removal and placement of axial stent--> currently scheduled for procedure in [place] at [facility], would recommend in person evaluation by surgical and anesthesia teams prior to procedure Plan: Continue Prednisone 20 mg x 2 weeks and then decrease to 15 mg / week. Discontinue Bactrim when prednisone is decreased to 15 mg / week. Follow up with Reel Slitter as to how far the prednisone should be tapered. From Pulmonary perspective, no need for continued steroid use. Continue to increase activity as able with use of appropriate O2 support. Continue O2 at 4-5 lpm at rest and 10 lpm w/ oxymizer with exertion. Obtain ABG while in clinic today to assess for hypercapnia. Re-evaluation by surgical and anesthesia teams. Remain UTD with age appropriate cancer screenings and vaccinations. Follow Up: Return in about 3 months (around 05/18/2024) for Clinic Visit. | For: Clinic Visit | Check-out note: Follow up in ILD clinic in 3 months. Encouraged patient to call with any further questions or concerns. All of the above was discussed with the patient. All questions answered to apparent satisfaction. I spent a total of 20-29 minutes (exact time 25 mins) on the date of service in preparation, delivery, and documentation of the care provided to Orin Bah excluding any time spent in the performance of separately billed services. TAWANNA Ordonez Pulmonary Medicine [facility] * Raulito Cosme MD - 02/17/2024 10:35 AM EDT ILD clinic staff note: I have reviewed the advanced practitioner's documentation on the date of service referenced in note, and I agree with, and take responsibility for the plan of care. Orin is a 68 year female who is currently being treated for presumed CHP with prednisone since October 2023. She returns for follow-up after PFT and CT. Interval history: Reports no significant change in her breathing. Reports dyspnea upon moderate exertion. She is ableto vacuum the house and cook and clean dishes. Continues to use O2 as prescribed. Minimal cough. GERD is well controlled on PPI. On 4LPM of O2. Sleeps in the chair and uses 4-5 L of O2 at night. No infections or hospitalization. Still awaiting her AXIOS stent placement. Had PFTs and CT scan of the chest and the results summarized below. They were reviewed with her as well. Blood pressure 131/72, pulse 69, temperature 37.3 C (99.1 F), temperature source Tympanic, weight 105.2 kg (232 lb), last menstrual period 07/05/2003, SpO2 96%. Obese neck. No JVD. Bilateral posterior crackles. Ejection systolic murmur in precordial region. Mild leg edema. No clubbing. No focal deficits. Wearing nasal cannula O2 sitting in a wheelchair. Data: CT chest 07/01 Bilateral ground-glass and reticular opacities with areas of focal air trapping predominantly involving upper and middle lung zones. There is airway centric disease. No significant honeycomb changes.No nodular disease. When compared to prior CT scan done in 2021 and earlier-there appears to be a significant progression of disease. CT chest 03/02 Bilateral upper lobe predominant ground-glass and reticular opacities with areas of focal air trapping appear largely unchanged when compared to CT scan done in 07/01. Overall disease burden is largely unchanged. PFT FEV1 FVC Ratio TLC DLCO 2016 2.09L (75%) 2.59L (72%) 81 07/01 1.08L (42%) 1.43L (43%) 75 4.30L (77%) 57% predicted - high RV and RV/TLC ratio 03/02 0.90L (35%) 1.12L (34%) 80 40% predicted Negative PEDRO and RF Echo 07/01: Mild grade 1 diastolic dysfunction. PASP of 40 mm Hg 3MWT: 10/22/2023: OXIMETRY: 70% at rest on room air OXIMETRY - OXYGEN 4 L/MIN: 92% at rest, 86% after a 1.5 minute walk OXIMETRY - OXYGEN 6 L/MIN w/ oxymizer: 96% at rest, 82% after a 2 minute walk OXIMETRY - OXYGEN 10 L/MIN w/ oxymizer: 98% at rest, 85% after a 2 minute walk. Impression: Diffuse parenchymal lung disease - overall disease appears progressive based upon her O2 requirements, symptoms as well as pulmonary function testing trend. CT scan demonstrates pattern that may suggest presence of chronic HP with areas of focal air trapping and upper and mid zone predominance of infiltrate which are airway centric in nature. Overall, she does not appear to have any significant improvement in the burden of interstitial lungdisease despite treatment with steroids for about 4+ months. Given the lack of therapeutic efficacy, as well as weight gain, it is reasonable to taper the prednisone. She was on 10 mg of prednisone daily for autoimmune hemolytic anemia and I have advised her to check in with her die designer for steroid dose needed for treatment of her anemia. Given severity of her disease and significantly low FVC, I am uncertain about benefit of anti fibrotic medication. She is at risk for hypercapnia due to her body habitus as well as significantly low FVC. This will be assessed and if her pCO2 is noted to be high, she may benefit from NIV. Plan: - tapered the dose of prednisone to 15 mg. Advised her to check in with the die designer regarding long-term prednisone dose for her hemolytic anemia. - discontinue PJP prophylaxis. - obtain ABG. - continue O2 supplementation 4-6 L at rest. Oxymizer use and 10 L during exertion. - supportive care for underlying interstitial lung disease. - rest as per nurse practitioner's note. Follow Up: Return in about 3 months (around 05/18/2024) for Clinic Visit. | For: Clinic Visit | Check-out note: Follow up in ILD clinic in 3 months. Please put patient on the schedule for ABG today. I spent a total of 40-54 minutes (exact time 45 mins) on the date of service in preparation, delivery, and documentation of the care provided to Orin Bah excluding any time spent in the performance of separately billed services. Raulito Cosme MD Pulmonary Medicine, [address] [address] documented in this encounter Plan of Treatment Upcoming Encounters Date Type Department Care Team (Latest Contact Info) Description 4 3:30 PM EDT PulmDiagnostic Pulmonary Function Lab, [address] [address] 1, Pft [address] [address] ILD (interstitial lung disease) (HCC)*; Chronic respiratory failure with hypoxia (HCC) 4 1:30 PM EDT Office Visit Cardiology, [facility] [address] [place] [address] Shilpi Bailey PA-C [address] [place] [address] 4 10:00 AM EDT Home Visit [facility], [facility] [address] [address] July Diaz, RN [address] [place] [address] 4 12:10 PM EDT Office Visit [facility] [address] [place] [id number] Kat Hawthorne DO [address] [place] [address] 4 9:45 AM EDT Hospital Encounter [facility], Endoscopy Suite, [facility] 1, [address] [place] [address] Fish Ahmadi MD [address] [place] [address] 4 9:45 AM EDT - 4 11:30 AM EDT Surgery ENDO [facility], Endoscopy Suite, [facility] 1, [address], [place] [id number] Fish Ahmadi MD [address], [place] [phone] ESOPHAGOGASTRODUODENOSCOPY (EGD), FLEXIBLE, TRANSORAL, ENDOSCOPIC ULTRASOUND 4 10:30 AM EDT Office Visit Orthopaedics, [facility] [address], [place] [id number] Cholo Shah MD [address], [place] [id number] 4 10:30 AM EDT Office Visit Gynecology/Onco logy, [place] [address] [place] [address] Jeanie Gunter PA-C [address] [place] [address] Scheduled Procedures Name Priority Associated Diagnoses Date/Ti [...] COPD 03/10/2024 03/10/2023 CKD PHOS USE SMARTSET 67866 03/16/2024 05/0 06/2023, 03/15/2023, 03/14/2023, Additional history exists GFR 08/16/2024 02/15/2024, 11/11, 09/17/2023, Additional history exists Mammogram 12/09/2024 12/09/2023, 04/10, 03/07/2021, Additional history exists CKD HGB USE SMARTSET 89501 02/14/202502/14, 02/15/2024, 12/09/2023, Additional history exists Lipid [...] this encounter Medical Devices Implanted Type Area Global Marketing Operations Manager Device Identifier Shelf Expiration Date Model / Serial / Lot Cement Bone Simplex Hv & G - [id number] Implanted:Qty: 2 on 01/05/2023 by Harley Nguyen DO at OR [facility] Left: Knee ROSALIA : ORTH[employer] 06/08/2024 6195-1-010 / / [id number] Femoral Size 5 - [id number] Implanted:Qty: 1 on 01/05/2023 by Harley Nguyen DO at OR [facility] Left: Knee RSOALIA : ORTH[employer] 08/09/2026 5510-F-501 / / [id number] Knee Tria Syetric X3 10x36 - [id number] Implanted:Qty: 1 on 01/05/2023 by Harley Nguyen DO at OR [facility] Left: Knee [employer]IA : ORTH[employer] 09/24/2027 5550-G-360 -E / / [id number] Baseplate Tib 5 Knee - [id number] Implanted:Qty: 1 on 01/05/2023 by Harley Nguyen DO at OR [facility] Left: Knee ROS[employer]IA : ORTH[employer] 12/14/2027 5521-B-500 / / [id number] Knee X3 Ins Pos Cs Sz5 9 - [id number] Implanted:Qty: 1 on 01/05/2023 by Harley Nguyen DO at OR [facility] Left: Knee [employer]IA : ORTH[employer] 11/19/2027 5531-G-509 -E / / [id number] Cement Bone Full Mix Surg Simp - [id number] Implanted:Qty: 1 on 03/03/2023 by Cholo Shah MD at [place] [facility] Right: Knee [employer]IA : ORTH[employer] 05/08/2025 6191-1-010 / / [id number] Knee Tib Comp Poly Krh 8 Lg - [id number] Implanted:Qty: 1 on 03/03/2023 by Cholo Shah MD at [place] [facility] Right: Knee [employer]IA : ORTH[employer] 07/19/2023 6485-2-308 / / [id number] Knee Hrhk Mod Rot Hng Bushing - [id number] Implanted:Qty: 1 on 03/03/2023 by Cholo Shah MD at [place] [facility] Right: Knee [employer]IA : ORTHOPA[employer]ICS 01/09/2027 6481-2-110 / / [id number] Knee Hrhk Mod Rot Hng Bushing - [id number] Implanted:Qty: 1 on 03/03/2023 by Cholo Shah MD at [place] [facility] Right: Knee [employer]IA : ORTHOPA[employer] 11/21/2026 6481-2-110 / / [id number] Knee Stem Crv Mod Mrs 01x107 - [id number] Implanted:Qty: 1 on 03/03/2023 by Cholo Shah MD at [place] [facility] Right: Knee [employer]IA : ORTH[employer] 10/02/2026 6485-3-715 / / [id number] Tib Mrh Cross Bear Long Xs/Xl - [id number] Implanted:Qty: 1 on 03/03/2023 by Cholo Shah MD at [place] [facility] Right: Knee [employer]IA : ORTH[employer] 12/05/2025 6481-2-103 / / [id number] Knee Tib Bumper Rot Hng Nue - [id number] Implanted:Qty: 1 on 03/03/2023 by Cholo Shah MD at [place] [facility] Right: Knee [employer]IA : ORTH[employer] 07/15/2027 6481-2-130 / / [id number] Distal Femoral Component Implanted:Qty: 1 on 03/03/2023 by Cholo Shah MD at [place] [facility] Right: Knee [employer]IA : ORTH[employer] 08/23/2023 6495-2-040 / / [id number] Knee Axle Hrhk Rot Mod Hng - [id number] Implanted:Qty: 1 on 03/03/2023 by Cholo Shah MD at [place] [facility] Right: Knee [employer]IA : ORTH[employer] 06/30/2027 6481-2-120 / / [id number] Restrictors Med Cmnt Z500-2696 - [id number] Implanted:Qty: 1 on 03/03/2023 by Cholo Shah MD at [place] [facility] Right: Knee [employer]IA : ORTHOPA[employer]ICS 11/18/2027 [id number] / / Cement Bone Full Mix Surg Simp - [id number] Implanted:Qty: 1 on 03/03/2023 by Cholo Shah MD at [place] [facility] Right: Knee [employer]IA : ORTHOPA[employer]ICS 07/09/2025 6191-1-010 / / [id number] Cement Bone Full Mix Surg Simp - [id number] Implanted:Qty: 1 on 03/03/2023 by Cholo Shah MD at [place] [facility] Right: Knee [employer]IA : ORTHOPA[employer]ICS 06/08/2025 6191-1-010 / / [id number] Cement Bone Full Mix Surg Simp - [id number] Implanted:Qty: 1 on 03/03/2023 by Cholo Shah MD at [place] [facility] Right: Knee [employer]IA : ORTHOPA[employer]ICS 05/08/2025 6191-1-010 / / [id number] Knee Fem Gmrs Dis Std R - [id number] Implanted:Qty: 1 on 03/10/2023 by Cholo Shah MD at [place] [facility] Right: Knee ROS[employer]IA : ORTHOPA[employer]ICS 10/21/2027 6495-2-040 / / [id number] Knee Hrhk Mod Rot Hng Bushing - [id number] Implanted:Qty: 1 on 03/10/2023 by Cholo Shah MD at [place] [facility] Right: Knee ROSALIA : ORTHOPAEDICS 01/29/2027 6481-2-110 / / [id number] Knee Axle Hrhk Rot Mod Hng - [id number] Implanted:Qty: 1 on 03/10/2023 by Cohlo Shah MD [place] [facility] [place]: Knee ROSALIA : ORTHOPAEDICS 09/15/2027 6481-2-120 / / [id number] Tib Mrh Cross Bear Long Xs/Xl - [id number] Implanted:Qty: 1 on 03/10/2023 by Cholo Shah MD [place] [facility] [place]: Knee ROSALIA : ORTHOPAEDICS 09/30/2027 6481-2-103 / / [id number] Knee Hrhk Mod Rot Hng Bushing - [id number] Implanted:Qty: 1 on 03/10/2023 by Cholo Shah MD [place] [facility] [place]: Knee ROSALIA : ORTHOPAEDICS 04/24/2027 6481-2-110 / / [id number] Knee Tib Bumper Rot Hng Nue - [id number] Implanted:Qty: 1 on 03/10/2023 by Cholo Shah MD [place] [facility] [place]: Knee ROSALIA : ORTHOPAEDICS 10/15/2027 6481-2-130 / / [id number] documented as of this encounter Results * (ABNORMAL) BLOOD GAS, ARTERIAL (02/17/2024 11:34 AM EDT) [facility] Temperature 37.0 C 02/17/2024 11:48 AM EDT LABORATORY [facility] pH, Arterial 7.357 7.350 - 7.450 units 02/17/2024 11:48 AM EDT LABORATORY C pCO2, Arterial 67.4(HH) 35.0 - 45.0 mmHg 02/17/2024 11:48 AM EDT LAB[facility] pO2, Arterial 105.0(H) 75.0 - 100.0 mmHg 02/17/2024 11:48 AM EDT LAB[facility] Base Excess, Arterial 9.8(H) -2.0 - 2.0 mmol/L 02/17/2024 11:48 AM EDT [facility] HGB 10.6(L) 12.0 - 15.3 g/dL 02/17/2024 11:48 AM EDT [facility] Oxyhemoglobin, Arterial 94.0 94.0 - 99.0 % total Hgb 02/17/2024 11:48 AM EDT [facility] Carboxyhemoglob in, Whole Blood 0.2 <=1.5 % total Hgb 02/17/2024 11:48 AM EDT [facility] Comment:Smokers: 0-9.0 % Methemoglobin, Whole Blood 0.6 <=1.5 % total Hgb 02/17/2024 11:48 AM EDT [facility] Reduced Hemoglobin, Arterial 5.2(H) 0.0 - 5.0 % total Hgb 02/17/2024 11:48 AM EDT [facility] O2 Content, Arterial 14.1(L) 15.0 - 24.0 %vol 02/17/2024 11:48 AM EDT [facility] FiO2 Not Provided % 02/17/2024 11:48 AM EDT [facility] O2 Flow, Arterial Not Provided L/min 02/17/2024 11:48 AM EDT [facility] Bicarbonate, Whole Blood 36.9(H) 23.0 - 31.0 mmol/L 02/17/2024 11:48 AM EDT [facility] Blood Arterial blood specimen / Unknown Arterial Puncture / Unknown 02/17/2024 11:34 AM EDT 02/17/2024 11:44 AM EDT Kae STACY LAB BLOOD ORDERABLES Performing Organization Address City/State/[facility] Co de Phone Number [facility] [address] [place] [address] documented in this encounter Visit Diagnoses Diagnosis ILD (interstitial lung disease) (HCC)- Primary Postinflammatory pulmonary fibrosis Chronic respiratory failure with hypoxia (HCC) Chronic respiratory failure ILD (interstitial lung disease) (HCC)- Primary Postinflammatory pulmonary fibrosis Chronic respiratory failure with hypoxia (HCC) Chronic respiratory failure Choledocholithiasis Calculus of bile duct without mention of cholecystitis or obstruction documented in this encounter Advance Directives Documents on File Type Date Recorded Patient Rn Lactation Consultant Expl 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 Care Teams Watch Adjuster Relationship Specialty Start Date End Date Kat Hawthorne DO [address] [address] PCP - General Family Medicine 08/20/22 documented as of this encounter
--- OUTSIDE RECORDS SUMMARY | 2024-04-16 12:36 | External Medical Summary | Summary of Care ---
Author Name Unknown Organization [facility] Address [address] [place] [address] Phone [phone] Care Team Providers Care Chief School Finance Officer Name Role Phone Kat Hawthorne DO Primary Care Provider [phone] Reason for Visit * Reason Comments Outpatient Testing Encounter Details Date Type Department Care Team (Late st Contact Info) Description 02/15/2024 12:30 PM EDT Laboratory Laboratory, [facility] [address] [place] [phone] [facility] [address] [place] [address] Hemolytic anemia (HCC) Allergies Active Allergy Reactions Criticality Noted [...] as of this encounter (statuses as of 02/15/2024) Medications Medication Sig Dispensed Refills Start Date [...] [facility]),Chronic respiratory failure with hypoxia (HCC) Use 2 LPM with exertion and 3 LPM with sleep. Needs small portable tanks, standing concentrator DME: [facility] 1 Each 0 07/02/2022 Active Proventil HFA 108 (90 Base) MCG/ACT Inhalation Aerosol SolutionIndications: ILD (interstitial lung disease) ([facility] [...] mouth in the morning. 0 Active Nystatin 260500 UNIT/GM External Powder (Nystop) Apply topically to [...] as of this encounter (statuses as of 02/15/2024) Active Problems Problem Noted Date Diagnosed Date [...] & Plan: S/P wound vac placement at [facility] On doxycycline 100 mg BID x 14 days Old IA (myocardial infarction) 04/14/2023 Hyperlipidemia 04/14/2023 Hereditary hemolytic [...] as of this encounter (statuses as of 02/15/2024) Resolved Problems Problem Noted Date Diagnosed Date [...] as of this encounter (statuses as of 02/15/2024) Immunizations Name Administration Dates Next Due COVID-19 mRNA, LNP-s, No Pre serve, 2-Dose Series ([employer]) 08/23/2021,01/26/2021,01/05/2021 Pneumococcal Conjugate Vacc, 13 Valent (Prevnar) [...] Description 4 1:00 PM EDT Imaging Radiology [facility] [address] [address] ILD (interstitial lung disea se) ([facility]) 4 1:00 PM EDT Home Visit Care Coordination and Integration [address] [place] [address] Cinthya Weber, Community Health Adjunct Political Science Instructor [address] [place] [address] 4 10:30 AM EDT Office Visit Pulmonary Medicine, [place] [address] [place] [address] Raulito Cosme MD [address] [place] [address] 4 1:30 PM EDT Office Visit Cardiology, [facility] [address] [address] Shilpi Bailey PA-C [address] [address] 4 10:00 AM EDT Home Visit [facility] [address] [address] July Diaz, RN [address] [address] 4 12:10 PM EDT Office Visit [address] [phone] Kat Hawthorne, DO [address] [place] [address] 4 9:45 AM EDT Hospital Encounter ENDO [facility], Endoscopy Suite, HFAM 1, [address] [facility] [place] [address] Fish Ahmadi MD [address] [place] [address] 4 9:45 AM EDT - 4 11:30 AM EDT Surgery ENDO [facility], Endoscopy Suite, HFAM 1, [address] [place] [place] [address] Fish Ahmadi MD [address] [place] [address] ESOPHAGOGASTRODUODENOSCOPY (EGD), FLEXIBLE, TRANSORAL, ENDOSCOPIC ULTRASOUND 4 10:30 AM EDT Office Visit Orthopaedics, [place] [address] [facility] [place] [place] [address] Cholo Shah MD [address] [place] [address] 4 10:30 AM EDT Office Visit Gynecology/Oncolo , [place] [address] [place] [address] Jeanie Gunter PA-C [address] [place] [address] Pending Results Name Type Priority Associated Diagnoses Date /Time CBC WITH WBC DIFFERENTIAL Lab STAT Hemolytic anemia (HCC) 02/15/2024 12:25 PM EDT COMPREHENSIVE METABOLIC PANEL Lab STAT Hemolytic anemia ([facility]) 02/15/2024 12:25 PM EDT LD Lab STAT Hemolytic anemia ([facility]) 02/15/2024 12:25 PM EDT RETICULOCYTE PANEL Lab STAT Hemolytic anemia ([facility]) 02/15/2024 12:25 PM EDT HAPTOGLOBIN Lab STAT Hemolytic anemia ([facility]) 02/15/2024 12:25 PM EDT CBC Lab STAT Hemolytic anemia (HCC) 02/15/2024 12:25 PM EDT DIFFERENTIAL, AUTOMATED Lab STAT Hemolytic anemia (HCC) 02/15/2024 12:25 PM EDT Scheduled Procedures Name Priority Associated [...] COPD 03/10/2024 03/10/2023 CKD PHOS USE SMARTSET 72862 03/16/2024 0506/2023, 03/15/2023, 03/14/2023, Additional history exists GFR 06/08/2024 12/09/2023, 07/2023, 07/14/2023, Additional history exists CKD HGB USE SMARTSET 21962 12/09/202412/09, 12/09/2023, 09/17/2023, Additional history exists Mammogram [...] this encounter Medical Devices Implanted Type Area Sales Program Coordinator Device Identifier Shelf Expiration Date Model / Serial / Lot Cement Bone Simplex Hv & G - [id number] Implanted:Qty: 2 on 01/05/2023 by Harley Nguyen DO at OR [facility] Left: Knee ROSALIA : ORTHOPAEDICS 06/08/2024 6195-1-010 / / [id number] Component Femoral Size 5 - [id number] Implanted:Qty: 1 on 01/05/2023 by Harley Nguyen DO at OR [facility] Left: Knee ROSALIA : ORTHOPAEDICS 08/09/2026 5510-F-501 / / [id number] Knee Tria Syetric X3 10x36 - [id number] Implanted:Qty: 1 on 01/05/2023 by Harley Nguyen DO at OR [facility] Left: Knee ROSALIA : ORTHOPAEDICS 09/24/2027 5550-G-360 -E / / [id number] Baseplate Tib 5 Knee - [id number] Implanted:Qty: 1 on 01/05/2023 by Harley Nguyen DO at OR [facility] Left: Knee ROSALIA : ORTHOPAEDICS 12/14/2027 5521-B-500 / / [id number] Knee X3 Ins Pos Cs Sz5 9 - [id number] Implanted:Qty: 1 on 01/05/2023 by Harley Nguyen DO at OR [facility] Left: Knee ROSALIA : ORTHOPAEDICS 11/19/2027 5531-G-509 -E / / [id number] Cement Bone Full Mix Surg Simp - [id number] Implanted:Qty: 1 on 03/03/2023 by Cholo Shah MD at [place] [facility] Right: Knee ROSALIA : ORTHOPAEDICS 05/08/2025 6191-1-010 / / [id number] Knee Tib Comp Poly Krh 8 Lg - [id number] Implanted:Qty: 1 on 03/03/2023 by Cholo Shah MD at [place] [facility] Right: Knee ROSALIA : ORTHOPAEDICS 07/19/2023 6485-2-308 / / [id number] Knee Hrhk Mod Rot Hng Bushing - [id number] Implanted:Qty: 1 on 03/03/2023 by Cholo Shah MD at [place] [facility] Right: Knee ROSALIA : ORTHOPAEDICS 01/09/2027 6481-2-110 / / [id number] Knee Hrhk Mod Rot Hng Bushing - [id number] Implanted:Qty: 1 on 03/03/2023 by Cholo Shha MD at [place] [facility] Right: Knee ROSALIA : ORTHOPAEDICS 11/21/2026 6481-2-110 / / [id number] Knee Stem Crv Mod Mrs 24j500 - [id number] Implanted:Qty: 1 on 03/03/2023 by Cholo Shah MD at [place] [facility] Right: Knee ROSALIA : ORTHOPAEDICS 10/02/2026 6485-3-715 / / [id number] Tib Mrh Cross Bear Long Xs/Xl - [id number] Implanted:Qty: 1 on 03/03/2023 by Cholo Shah MD at [place] [facility] Right: Knee ROSALIA : ORTHOPAEDICS 12/05/2025 6481-2-103 / / [id number] Knee Tib Bumper Rot Hng Nue - [id number] Implanted:Qty: 1 on 03/03/2023 by Cholo Shah MD at [place] [facility] Right: Knee ROSALIA : ORTHOPAEDICS 07/15/2027 6481-2-130 / / [id number] Distal Femoral Component Implanted:Qty: 1 on 03/03/2023 by Cholo Shah MD at [place] [facility] Right: Knee ROSALIA : ORTHOPAEDICS 08/23/2023 6495-2-040 / / [id number] Knee Axle Hrhk Rot Mod Hng - [id number] Implanted:Qty: 1 on 03/03/2023 by Cholo Shah MD at [place] [facility] Right: Knee ROSALIA : ORTHOPAEDICS 06/30/2027 6481-2-120 / / [id number] Restrictors Med Cmnt Z357-2468 - [id number] Implanted:Qty: 1 on 03/03/2023 by Cholo Shah MD at [place] [facility] Right: Knee ROSALIA : ORTHOPAEDICS 11/18/2027 I808-3262 / / Cement Bone Full Mix Surg Simp - [id number] Implanted:Qty: 1 on 03/03/2023 by Cholo Shah MD at [place] [facility] Right: Knee ROSALIA : ORTHOPAEDICS 07/09/2025 6191-1-010 / / [id number] Cement Bone Full Mix Surg Simp - [id number] Implanted:Qty: 1 on 03/03/2023 by Cholo Shah MD at [place] [facility] Right: Knee ROSALIA : ORTHOPAEDICS 06/08/2025 6191-1-010 / / [id number] Cement Bone Full Mix Surg Simp - [id number] Implanted:Qty: 1 on 03/03/2023 by Cholo Shah MD at [place] [facility] Right: Knee ROSALIA : ORTHOPAEDICS 05/08/2025 6191-1-010 / / [id number] Knee Fem Gmrs Dis Std R - [id number] Implanted:Qty: 1 on 03/10/2023 by Cholo Shah MD at [place] [facility] Right: Knee ROSALIA : ORTHOPAEDICS 10/21/2027 6495-2-040 / / [id number] Knee Hrhk Mod Rot Hng Bushing - [id number] Implanted:Qty: 1 on 03/10/2023 by Cholo Shah MD at [place] [facility] Right: Knee ROSALIA : ORTHOPAEDICS 01/29/2027 6481-2-110 / / [id number] Knee Axle Hrhk Rot Mod Hng - [id number] Implanted:Qty: 1 on 03/10/2023 by Cholo Shah MD at [place] [facility] Right: Knee ROSALIA : ORTHOPAEDICS 09/15/2027 6481-2-120 / / [id number] Tib Mrh Cross Bear Long Xs/Xl - [id number] Implanted:Qty: 1 on 03/10/2023 by Cholo Shah MD at [place] [facility] Right: Knee ROSALIA : ORTHOPAEDICS 09/30/2027 6481-2-103 / / [id number] Knee Hrhk Mod Rot Hng Bushing - [id number] Implanted:Qty: 1 on 03/10/2023 by Cholo Shah MD at [place] [facility] Right: Knee ROSALIA : ORTHOPAEDICS 04/24/2027 6481-2-110 / / [id number] Knee Tib Bumper Rot Hng Nue - [id number] Implanted:Qty: 1 on 03/10/2023 by Cholo Shah MD at [place] [facility] Right: Knee ROSALIA : ORTHOPAEDICS 10/15/2027 6481-2-130 / / [id number] documented as of this encounter Visit Diagnoses Diagnosis ILD (interstitial lung disease) (HCC) Postinflammatory pulmonary fibrosis Hemolytic anemia (HCC) Acquired hemolytic anemia, unspecified Choledocholithiasis Calculus of bile duct without mention of cholecystitis or obstruction documented in this encounter Advance Directives Documents on File Type Date Recorded Patient Counter Sales Representative Expl 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 Care Teams Chief School Finance Officer Relationship Specialty Start Date End Date Kat Hawthorne DO [address] [place] [facility] [place] [address] PCP - General Family Medicine 08/20/22 documented as of this encounter
--- OUTSIDE RECORDS SUMMARY | 2024-04-16 12:36 | External Medical Summary ---
Author Name Unknown Address Unknown Organization K01:LABORATORY C - [address] [place] [address] Laboratory Report Ordering Provider Test Date Status ANGEL GUERRERO 02/15/2024 12:25:37 Final Observation Date Value Abnormality Reference (Units ) Status Haptoglobin 02/15/2024 12:25:37 56 30-200 ( mg/dL) Final Performing Location [facility] - [address] [place] [address]
--- OUTSIDE RECORDS SUMMARY | 2024-04-16 12:36 | External Medical Summary ---
Author Name Unknown Address Unknown Organization K01:LABORATORY [facility] - [address] [facility] [address] Laboratory Report Ordering Provider Test Date Status RADHA MILES 02/17/2024 11:34:00 Final Observation Date Value Abnormality Reference (Units) Status Body temperature 02/17/2024 11:34:00 37.0 (C) Final pH of Arterial blood 02/17/2024 11:34:00 7.357 7.350-7.450 (units) Final Carbon dioxide [Partial pressure] in Arterial blood 02/17/2024 11:34:00 67.4 Above upper panic limits 35.0-45.0 (mmHg) Final Oxygen [Partial pressure] in Arterial blood 02/17/2024 11:34:00 105.0 Above high normal 75.0-100.0 (mmHg) Final Base excess, Arterial 02/17/2024 11:34:00 9.8 Above high normal -2.0-2.0 (mmol/L) Final Hemoglobin [Mass/volume] in Blood by Oximetry 02/17/2024 11:34:00 10.6 Below low normal 12.0-15.3 (g/dL) Final Oxyhemoglobin, Arterial (FO2HB) 02/17/2024 11:34:00 94.0 94.0-99.0 (% total Hgb) Final Carboxyhemoglobin 02/17/2024 11:34:00 0.2 <=1.5 (% total Hgb) Final Smokers: 0-9.0 % Methemoglobin 02/17/2024 11:34:00 0.6 <=1.5 (% total Hgb) Final Deoxyhemoglobin/Hemog lobin.total in Arterial blood 02/17/2024 11:34:00 5.2 Above high normal 0.0-5.0 (% total Hgb) Final Oxygen content in Arterial blood 02/17/2024 11:34:00 14.1 Below low normal 15.0-24.0 (%vol) Final Oxygen/Total gas setting [Volume Fraction] Ventilator 02/17/2024 11:34:00 Not Provided (%) Final O2 FLOW, ARTERIAL - [facility] 02/17/2024 11:34:00 Not Provided (L/min) Final Bicarbonate, Venous, POC (i-STAT) 02/17/2024 11:34:00 36.9 Above high normal 23.0-31.0 (mmol/L) Final Performing Location LABORATORY [facility] - [address] [facility] [address]
--- OUTSIDE RECORDS SUMMARY | 2024-04-16 12:36 | External Medical Summary | Summary of Care ---
Author Name Unknown Organization [facility] Address [address] [place] [address] Phone [phone] Care Team Providers Care Unit Nurse Name Role Phone Kat Hawthorne DO Primary Care Provider [phone] Encounter Details Date Type Department Care Team (Late st Contact Info) Description 02/16/2024 1:00 PM EDT Home Visit Care Coordination and Integration [address], [place] [id number] Cinthya Weber [facility] Health Transportation Equipment Painter [address] [place] [address] Allergies Active Allergy Reactions Criticality Noted Date [...] as of this encounter (statuses as of 02/16/2024) Medications Medication Sig Dispensed Refills Start Date [...] mouth in the morning. 0 Active Nystatin 452488 UNIT/GM External Powder (Nystop) Apply topically to [...] as of this encounter (statuses as of 02/16/2024) Active Problems Problem Noted Date Diagnosed Date [...] as of this encounter (statuses as of 02/16/2024) Resolved Problems Problem Noted Date Diagnosed Date [...] as of this encounter (statuses as of 02/16/2024) Immunizations Name Administration Dates Next Due COVID-19 mRNA, LNP-s, No Pre serve, 2-Dose Series ([employer]) 08/23/2021,01/26/2021,01/05/2021 Pneumococcal Conjugate Vacc, 13 Valent (Prevnar) [...] Sign Reading Time Taken Comments Blood Pressure 120/58 02/16/2024 1:17 PM EDT Pulse 78 02/16/2024 1:17 PM EDT Temperature 36.2 C (97.1 F) 02/16/2024 1:17 PM ED T Respiratory Rate 20 02/16/2024 1:17 PM EDT Oxygen Saturation 94% 02/16/2024 1:17 PM EDT Inhaled Oxygen Concentration - - Weight [...] this encounter Progress Notes * Cinthya Weber [facility] Health Transportation Equipment Painter - 02/16/2024 1:09 PM EDT Telemedicine visit: No [facility] Transportation Equipment Painter (PRUDENCE) documentation: CHW HV per July Diaz RNCM Pt. States she had some diarrhea last week, but feels better this week. She also said she was feeling sluggish. CHW survey completed Denies any new falls SDOH completed TUG test was deferred due to pt. Stating she doesn't really walk. Confirmed pt had contact information for CM Electronically signed by Cinthya Weber [facility] Health Transportation Equipment Painter at 02/16/2024 1:53 PM EDT documented in this encounter Plan of Treatment Upcoming Encounters Date Type Department Care Team (Latest Contact Info) Description 02/17/2024 10:30 AM EDT Office Visit Pulmonary Medicine, [facility] [address] [place] [address] Raulito Cosme MD [address] [place] [address] 02/19/2024 1:30 PM EDT Office Visit Cardiology, [facility] [address] [place] [address] Shilpi Bailey PA-C [address] [place] [address] 03/08/2024 10:00 AM EDT Home Visit [facility] [address] [facility] [place] [address] July Diaz, RN [address] [facility] [place] [address] 03/30/2024 12:10 PM EDT Office Visit [facility] [address] [place] [id number] Kat Hawthorne DO [address] [place] [address] 04/18/2024 9:45 AM EDT Hospital [place] [facility], [facility] 1, [address] [place] [facility] [place] [address] Fish Ahmadi MD [address] [place] [facility] [place] [place] [address] 04/18/2024 9:45 AM EDT - 04/18/2024 11:30 AM EDT Surgery [place] [facility] Suite, [facility]AM 1, [address] [facility], [place] [address] Fish Ahmadi MD [address] [place] [facility] [place] [address] ESOPHAGOGASTRODUODENOSCOPY (EGD), FLEXIBLE, TRANSORAL, ENDOSCOPIC ULTRASOUND 05/05/2024 10:30 AM EDT Office Visit Orthopaedics, [facility] [address] [place] [address] Cholo Shah MD [address] [facility] [place] [address] 05/10/2024 10:30 AM EDT Office Visit Gynecology/Oncol ogy, [facility] [address] [place] [address] Jeanie Gunter PA-C [address] [facility], [place] [id number] Scheduled Procedures Name Priority Associated Diagnoses Date/Ti [...] COPD 03/10/2024 03/10/2023 CKD PHOS USE SMARTSET 96702 03/16/2024 05/0 06/2023, 03/15/2023, 03/14/2023, Additional history exists GFR 08/16/2024 02/15/2024, 11/11, 09/17/2023, Additional history exists Mammogram 12/09/2024 12/09/2023, 04/10, 03/07/2021, Additional history exists CKD HGB USE SMARTSET 53657 02/14/202502/14, 02/15/2024, 12/09/2023, Additional history exists Lipid [...] this encounter Medical Devices Implanted Type Area Manager Applied Device Identifier Shelf Expiration Date Model / Serial / Lot Cement Bone Simplex Hv & G - [id number] Implanted:Qty: 2 on 01/05/2023 by Harley Nguyen DO at OR [facility] Left: Knee ROSALIA : ORTHOPAEDICS 06/08/2024 6195-1-010 / / [id number] Femoral Size 5 - [id number] Implanted:Qty: 1 on 01/05/2023 by Harley Nguyen DO at OR [facility] Left: Knee ROSALIA : ORTHOPAEDICS 08/09/2026 5510-F-501 / / [id number] Knee Tria Syetric X3 10x36 - [id number] Implanted:Qty: 1 on 01/05/2023 by Harley Nguyen DO at OR [facility] Left: Knee ROSALIA : ORTHOPAEDICS 09/24/2027 5550-G-360 -E / / [id number] Baseplate Tib 5 Knee - [id number] Implanted:Qty: 1 on 01/05/2023 by Harley Nguyen DO at OR [facility] Left: Knee ROSALIA : ORTHOPAEDICS 12/14/2027 5521-B-500 / / [id number] Knee X3 Ins Pos Cs Sz5 9 - [id number] Implanted:Qty: 1 on 01/05/2023 by Harley Nguyen DO at OR [facility] Left: Knee ROSALIA : ORTHOPAEDICS 11/19/2027 5531-G-509 -E / / [id number] Cement Bone Full Mix Surg Simp - [id number] Implanted:Qty: 1 on 03/03/2023 by Cholo Shah MD [place] [facility] [place]: Knee ROSALIA : ORTHOPAEDICS 05/08/2025 6191-1-010 / / [id number] Knee Tib Comp Poly Krh 8 Lg - [id number] Implanted:Qty: 1 on 03/03/2023 by Cholo Shah MD [place] [facility] [place]: Knee ROSALIA : ORTHOPAEDICS 07/19/2023 6485-2-308 / / [id number] Knee Hrhk Mod Rot Hng Bushing - [id number] Implanted:Qty: 1 on 03/03/2023 by Cholo Shah MD [place] [facility] [place]: Knee ROSALIA : ORTHOPAEDICS 01/09/2027 6481-2-110 / / [id number] Knee Hrhk Mod Rot Hng Bushing - [id number] Implanted:Qty: 1 on 03/03/2023 by Cholo Shah MD [place] [facility] [place]: Knee ROSALIA : ORTHOPAEDICS 11/21/2026 6481-2-110 / / [id number] Knee Stem Crv Mod Mrs 84h950 - [id number] Implanted:Qty: 1 on 03/03/2023 by Cholo Shah MD [place] [facility] [place]: Knee ROSALIA : ORTHOPAEDICS 10/02/2026 6485-3-715 / / [id number] Tib Mrh Cross Bear Long Xs/Xl - [id number] Implanted:Qty: 1 on 03/03/2023 by Cholo Shah MD [place] [facility] [place]: Knee ROSALIA : ORTHOPAEDICS 12/05/2025 6481-2-103 / / [id number] Knee Tib Bumper Rot Hng Nue - [id number] Implanted:Qty: 1 on 03/03/2023 by Cholo Shah MD [place] [facility] [place]: Knee ROSALIA : ORTHOPAEDICS 07/15/2027 6481-2-130 / / [id number] Distal Femoral Component Implanted:Qty: 1 on 03/03/2023 by Cholo Shah MD [place] [facility] [place]: Knee ROSALIA : ORTHOPAEDICS 08/23/2023 6495-2-040 / / [id number] Knee Axle Hrhk Rot Mod Hng - [id number] Implanted:Qty: 1 on 03/03/2023 by Cholo Shah MD [place] [facility] [place]: Knee ROSALIA : ORTHOPAEDICS 06/30/2027 6481-2-120 / / [id number] Restrictors Med Cmnt W620-7770 - [id number] Implanted:Qty: 1 on 03/03/2023 by Cholo Shah MD [place] [facility] [place]: Knee ROSALIA : ORTHOPAEDICS 11/18/2027 S421-0778 / / Cement Bone Full Mix Surg Simp - [id number] Implanted:Qty: 1 on 03/03/2023 by Cholo Shha MD [place] [facility] [place]: Knee ROSALIA : ORTHOPAEDICS 07/09/2025 6191-1-010 / / [id number] Cement Bone Full Mix Surg Simp - [id number] Implanted:Qty: 1 on 03/03/2023 by Cholo Shah MD [place] [facility] [place]: Knee ROSALIA : ORTHOPAEDICS 06/08/2025 6191-1-010 / / [id number] Cement Bone Full Mix Surg Simp - [id number] Implanted:Qty: 1 on 03/03/2023 by Cholo Shah MD [place] [facility] [place]: Knee ROSALIA : ORTHOPAEDICS 05/08/2025 6191-1-010 / / [id number] Knee Fem Gmrs Dis Std R - [id number] Implanted:Qty: 1 on 03/10/2023 by Cholo Shah MD [place] [facility] [place]: Knee ROSALIA : ORTHOPAEDICS 10/21/2027 6495-2-040 / / [id number] Knee Hrhk Mod Rot Hng Bushing - [id number] Implanted:Qty: 1 on 03/10/2023 by Cholo Shah MD [place] [facility] [place]: Knee ROSALIA : ORTHOPAEDICS 01/29/2027 6481-2-110 / / [id number] Knee Axle Hrhk Rot Mod Hng - [id number] Implanted:Qty: 1 on 03/10/2023 by Cholo Shah MD [place] [facility] [place]: Knee ROSALIA : ORTHOPAEDICS 09/15/2027 6481-2-120 / / [id number] Tib Mrh Cross Bear Long Xs/Xl - [id number] Implanted:Qty: 1 on 03/10/2023 by Cholo Shah MD [place] [facility] [place]: Knee ROSALIA : ORTHOPAEDICS 09/30/2027 6481-2-103 / / [id number] Knee Hrhk Mod Rot Hng Bushing - [id number] Implanted:Qty: 1 on 03/10/2023 by Cholo Shah MD [place] [facility] [place]: Knee ROSALIA : ORTHOPAEDICS 04/24/2027 6481-2-110 / / [id number] Knee Tib Bumper Rot Hng Nue - [id number] Implanted:Qty: 1 on 03/10/2023 by Cholo Shah MD [place] [facility] [place]: Knee ROSALIA : ORTHOPAEDICS 10/15/2027 6481-2-130 / / [id number] documented as of this encounter Advance Directives Documents on File Type Date Recorded Patient Popped Corn Oven Attendant Expl 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 Care Teams Unit Nurse Relationship Specialty Start Date End Date Kat Hawthorne DO [address] [place] [address] PCP - General Family Medicine 08/20/22 documented as of this encounter
--- OUTSIDE RECORDS SUMMARY | 2024-04-16 12:36 | External Medical Summary | Summary of Care ---
Author Name Unknown Organization [facility] Address [address] [place] [address] Phone [phone] Care Team Providers Care Door Tender Name Role Phone Kat Hawthorne DO Primary Care Provider Reason for Visit * Reason Comments Pulmonary Function Test Encounter Details Date Type Department Care Team (Latest Contact Info) Description 02/17/2024 3:30 PM EDT PulmDiagnostic Pulmonary Function Lab, [place] [address] [place] [address] 1, Pft Room [address] [place] [address] ILD (interstitial lung disease) (HCC)*; Chronic respiratory [...] Active oxygen IN GASIndications:ILD (interstitial lung disease) ([facility]),Chronic respiratory failure with hypoxia (HCC) Use 2 LPM with exertion and 3 LPM with sleep. Needs small portable tanks, standing concentrator DME: [facility] 1 Each 0 07/02/2022 Active Proventil HFA 108 (90 Base) MCG/ACT Inhalation Aerosol SolutionIndications: ILD (interstitial lung disease) ([facility]) Inhale by mouth 2 Puffs [...] mouth in the morning. 0 Active Nystatin 428804 UNIT/GM External Powder (Nystop) Apply topically to [...] mRNA, LNP-s, No Pre serve, 2-Dose Series ([employer]) 08/23/2021,01/26/2021,01/05/2021 Pneumococcal Conjugate Vacc, 13 Valent (Prevnar) [...] as of this encounter Nursing Notes * Michelle Stephens RRT-STRAPPING MACHINE TENDER - 02/17/2024 12:07 PM EDT Patient identified by name and date of . Abg with direct O2 saturation drawn from right radial artery. Positive milad test. documented in this encounter Plan of Treatment Upcoming Encounters Date Type Department Care Team (Latest Contact Info) Description 02/19/2024 1:30 PM EDT Office Visit Cardiology, [facility] [address] [facility] [place] [address] Shilpi Bailey PA-C [address] [place] [address] 03/08/2024 10:00 AM EDT Home Visit [facility] [address] [facility] [place] [address] July Diaz, RN [address] [place] [address] 03/30/2024 12:10 PM EDT Office Visit [facility] [address] [place] [address] Kat Hawthorne DO [address] [place] [address] 04/18/2024 9:45 AM EDT Hospital Encounter ENDO [facility], Endoscopy Suite, HFAM 1, [address] [place] [id number] Fish Ahmadi MD [address] [place] [address] 04/18/2024 9:45 AM EDT - 04/18/2024 11:30 AM EDT Surgery ENDO [facility], Endoscopy Suite, HFAM 1, [address] [place] [address] Fish Ahmadi MD [address] [place] [address] ESOPHAGOGASTRODUODENOSCOPY (EGD), FLEXIBLE, TRANSORAL, ENDOSCOPIC ULTRASOUND 05/05/2024 10:30 AM EDT Office Visit Orthopaedics, [place] [address] [place] [address] Cholo Shah MD [address] [place] [address] 05/10/2024 10:30 AM EDT Office Visit Gynecology/Oncol ogy, [place] [address] [place] [address] Jeanie Gunter PA-C [address] [place], [place] [phone] Scheduled Procedures Name Priority Associated Diagnoses Date/Ti [...] COPD 03/10/2024 03/10/2023 CKD PHOS USE SMARTSET 53235 03/16/2024 05/0 06/2023, 03/15/2023, 03/14/2023, Additional history exists GFR 08/16/2024 02/15/2024, 11/11, 09/17/2023, Additional history exists Mammogram 12/09/2024 12/09/2023, 04/10, 03/07/2021, Additional history exists CKD HGB USE SMARTSET 86055 02/14/202502/14, 02/15/2024, 12/09/2023, Additional history exists Lipid [...] this encounter Medical Devices Implanted Type Area Bench Worker Device Identifier Shelf Expiration Date Model / Serial / Lot Cement Bone Simplex Hv & G - [id number] Implanted:Qty: 2 on 01/05/2023 by Harley Nguyen DO at OR [facility] Left: Knee ROSALIA : ORTHOPAEDICS 06/08/2024 6195-1-010 / / [id number] Component Femoral Size 5 - [id number] Implanted:Qty: 1 on 01/05/2023 by Harley Nguyen DO at OR [facility] Left: Knee ROSALIA : ORTHOPAEDICS 08/09/2026 5510-F-501 / / [id number] Knee Tria Syetric X3 10x36 - [id number] Implanted:Qty: 1 on 01/05/2023 by Harley Nguyen DO at OR [facility] Left: Knee ROSALIA : ORTHOPAEDICS 09/24/2027 5550-G-360 -E / / [id number] Baseplate Tib 5 Knee - [id number] Implanted:Qty: 1 on 01/05/2023 by Harley Nguyen DO at OR [facility] Left: Knee ROSALIA : ORTHOPAEDICS 12/14/2027 5521-B-500 / / [id number] Knee X3 Ins Pos Cs Sz5 9 - [id number] Implanted:Qty: 1 on 01/05/2023 by Harley Nguyen DO at OR [facility] Left: Knee ROSALIA : ORTHOPAEDICS 11/19/2027 5531-G-509 -E / / [id number] Cement Bone Full Mix Surg Simp - [id number] Implanted:Qty: 1 on 03/03/2023 by Cholo Shah MD at [place] [facility] Right: Knee ROSALIA : ORTHOPAEDICS 05/08/2025 6191-1-010 / / [id number] Knee Tib Comp Poly Krh 8 Lg - [id number] Implanted:Qty: 1 on 03/03/2023 by Cholo Shah MD at [place] [facility] Right: Knee ROSALIA : ORTHOPAEDICS 07/19/2023 6485-2-308 / / [id number] Knee Hrhk Mod Rot Hng Bushing - [id number] Implanted:Qty: 1 on 03/03/2023 by Cholo Shah MD at OR [facility] Right: Knee ROSALIA : ORTHOPAEDICS 01/09/2027 6481-2-110 / / [id number] Knee Hrhk Mod Rot Hng Bushing - [id number] Implanted:Qty: 1 on 03/03/2023 by Cholo Shah MD at OR [facility] Right: Knee ROSALIA : ORTHOPAEDICS 11/21/2026 6481-2-110 / / [id number] Knee Stem Crv Mod Mrs 58i772 - [id number] Implanted:Qty: 1 on 03/03/2023 by Cholo Shah MD at OR [facility] Right: Knee ROSALIA : ORTHOPAEDICS 10/02/2026 6485-3-715 / / [id number] Tib Mrh Cross Bear Long Xs/Xl - [id number] Implanted:Qty: 1 on 03/03/2023 by Cholo Shah MD at OR [facility] Right: Knee ROSALIA : ORTHOPAEDICS 12/05/2025 6481-2-103 / / [id number] Knee Tib Bumper Rot Hng Nue - [id number] Implanted:Qty: 1 on 03/03/2023 by Cholo Shah MD at OR [facility] Right: Knee ROSALIA : ORTHOPAEDICS 07/15/2027 6481-2-130 / / [id number] Distal Femoral Component Implanted:Qty: 1 on 03/03/2023 by Cholo Shah MD at OR [facility] Right: Knee ROSALIA : ORTHOPAEDICS 08/23/2023 6495-2-040 / / [id number] Knee Axle Hrhk Rot Mod Hng - [id number] Implanted:Qty: 1 on 03/03/2023 by Cholo Shah MD at OR [facility] Right: Knee ROSALIA : ORTHOPAEDICS 06/30/2027 6481-2-120 / / [id number] Restrictors Med Cmnt V806-4731 - [id number] Implanted:Qty: 1 on 03/03/2023 by Cholo Shah MD at OR [facility] Right: Knee ROSALIA : ORTHOPAEDICS 11/18/2027 G997-0844 / / Cement Bone Full Mix Surg Simp - [id number] Implanted:Qty: 1 on 03/03/2023 by Cholo Shah MD at OR [facility] Right: Knee ROSALIA : ORTHOPAEDICS 07/09/2025 6191-1-010 / / [id number] Cement Bone Full Mix Surg Simp - [id number] Implanted:Qty: 1 on 03/03/2023 by Cholo Shah MD at OR [facility] Right: Knee ROSALIA : ORTHOPAEDICS 06/08/2025 6191-1-010 / / [id number] Cement Bone Full Mix Surg Simp - [id number] Implanted:Qty: 1 on 03/03/2023 by Cholo Shah MD at OR [facility] Right: Knee ROSALIA : ORTHOPAEDICS 05/08/2025 6191-1-010 / / [id number] Knee Fem Gmrs Dis Std R - [id number] Implanted:Qty: 1 on 03/10/2023 by Cholo Shah MD at OR [facility] Right: Knee ROSALIA : ORTHOPAEDICS 10/21/2027 6495-2-040 / / [id number] Knee Hrhk Mod Rot Hng Bushing - [id number] Implanted:Qty: 1 on 03/10/2023 by Cholo Shah MD at OR [facility] Right: Knee ROSALIA : ORTHOPAEDICS 01/29/2027 6481-2-110 / / [id number] Knee Axle Hrhk Rot Mod Hng - [id number] Implanted:Qty: 1 on 03/10/2023 by Cholo Shah MD at OR [facility] Right: Knee ROSALIA : ORTHOPAEDICS 09/15/2027 6481-2-120 / / [id number] Tib Mrh Cross Bear Long Xs/Xl - [id number] Implanted:Qty: 1 on 03/10/2023 by Cholo Shah MD at OR [facility] Right: Knee ROSALIA : ORTHOPAEDICS 09/30/2027 6481-2-103 / / [id number] Knee Hrhk Mod Rot Hng Bushing - [id number] Implanted:Qty: 1 on 03/10/2023 by Cholo Shah MD at OR [facility] Right: Knee ROSALIA : ORTHOPAEDICS 04/24/2027 6481-2-110 / / [id number] Knee Tib Bumper Rot Hng Nue - [id number] Implanted:Qty: 1 on 03/10/2023 by Cholo Shah MD at OR [facility] Right: Knee ROSALIA : ORTHOPAEDICS 10/15/2027 6481-2-130 / / [id number] documented as of this encounter Procedures Procedure Name Priority Date/Time Associated Diagnosis Comments BLOOD GAS, ARTERIAL Routine 02/17/2024 1 1:34 AM EDT ILD (interstitial lung disease) (HCC) Chronic respiratory failure with hypoxia (HCC) documented in this encounter Results * (ABNORMAL) BLOOD GAS, ARTERIAL (02/17/2024 11:34 AM EDT) Temperature 37.0 C 02/17/2024 11:48 AM EDT LAB[facility] pH, Arterial 7.357 7.350 - 7.450 units 02/17/2024 11:48 AM EDT [facility] pCO2, Arterial 67.4(HH) 35.0 - 45.0 mmHg 02/17/2024 11:48 AM EDT [facility] pO2, Arterial 105.0(H) 75.0 - 100.0 mmHg 02/17/2024 11:48 AM EDT [facility] Base Excess, Arterial 9.8(H) -2.0 - 2.0 [...] AM EDT Kae STACY LAB BLOOD ORDERABLES [facility] [address] [place] [address] documented in this encounter Visit Diagnoses Diagnosis ILD (interstitial lung disease) (HCC)- Primary Postinflammatory pulmonary fibrosis Chronic respiratory failure with hypoxia (HCC) Chronic respiratory failure Choledocholithiasis Calculus of bile duct without mention of cholecystitis or obstruction documented in this encounter Advance Directives Documents on File Type Date Recorded Patient Research Executive Expl 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 Care Teams Door Tender Relationship Specialty Start Date End Date Kat Hawthorne DO [address] [place], [place] [phone] PCP - General Family Medicine 08/20/22 documented as of this encounter
--- OUTSIDE RECORDS SUMMARY | 2024-04-16 12:36 | External Medical Summary ---
Author Name Unknown Address Unknown Organization [id number]:[facility]ATORY [facility] [place] [address] [place] [address] Laboratory Report Ordering Provider Test Date Status ANGEL GUERRERO 02/15/2024 12:25:37 Final Observation Date Value Abnormality Reference (Units ) Status Retic, % (auto) 02/15/2024 12:25:37 2.82 Above high normal 0.80-1.90 (%) Final Reticulocytes, Absolute 02/15/2024 12:25:37 100.4 Above high normal 31.3-100.1 (K/uL) Final Reticulocyte fraction, immature 02/15/2024 12:25:37 24.2 Above high normal 2.5-20.6 (%) Final Reticulocyte HGB 02/15/2024 12:25:37 29.5 Below low normal 29.7-37.4 (pg) Final Performing Location [facility] [place] [facility] [address] [facility] [place] [id number]
--- OUTSIDE RECORDS SUMMARY | 2024-04-16 12:36 | External Medical Summary ---
Author Name Unknown Address Unknown Organization [id number][facility] [address] [place] [address] Laboratory Report Ordering Provider Test Date Status ANGEL GUERRERO 02/15/2024 12:25:37 Final Observation Date Value Abnormality Reference (Units ) Status WBC, Total 02/15/2024 12:25:37 7.91 4.00-10.8 0 (K/uL) Final RBC 02/15/2024 12:25:37 3.57 3.85-5.15 (M/uL) Final Hemoglobin 02/15/2024 12:25:37 10.5 Below low normal 12 .0-15.3 (g/dL) Final HCT 02/15/2024 12:25:37 35.4 Below low normal 36. 0-45.2 (%) Final MCV 02/15/2024 12:25:37 99.2 81.5-97.5 (fL) Final MCH 02/15/2024 12:25:37 29.4 27.0-34.0 (pg) Final MCHC 02/15/2024 12:25:37 29.7 32.0-36.0 (g/dL) Final RDW 02/15/2024 12:25:37 20.0 11.5-15.5 (%) Final Platelets 02/15/2024 12:25:37 124 Below low normal 140 -400 (K/uL) Final Results rechecked.
null MPV 02/15/2024 12:25:37 11.9 6.6-11.1 ( fL) Final Performing Location LABORATORY [facility] [place] [address] - [address] [place] [address]
--- OUTSIDE RECORDS SUMMARY | 2024-04-16 12:37 | External Medical Summary | Summary of Care ---
Author Name Unknown Organization [facility] Address [address] [place] [address] Phone [phone] Care Team Providers Care Hvac Commercial Salesperson Name Role Phone Kat Hawthorne DO Primary Care Provider [phone] Reason for Visit * Reason Comments Pulmonary Function Test PFT without bron chodilator per provider's request. Oxygen Assessment Pt requested to do w alk in [place]. That is where she usually does her walk test and prefers to do there. Encounter Details Date Type Department Care Team (Latest Contact Info) Description 02/09/2024 1:00 PM EDT PulmDiagnostic Pulmonary Function Lab, [facility] [address] [facility] [place] [address] [place], Pft 132 [facility] [place] [address] ILD (interstitial lung disease) ([facility]; Chronic respiratory failure with hypoxia ([facility]) Allergies Active Allergy Reactions Criticality Noted Date [...] mouth in the morning. 0 Active Nystatin 727301 UNIT/GM External Powder (Nystop) Apply topically to [...] & Plan: S/P wound vac placement at [facility] On doxycycline 100 mg BID [...] liters with exertion. 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 Spirometry and DLCO performed without bronchodilator per providers request. Pt requested to do walk in [place]. That is where she usually does her walk test and prefers to do there. documented in this encounter Plan of Treatment Upcoming Encounters Date Type Department Care Team (Latest Contact Info) Description 1:00 PM EDT Imaging Radiology [address], [address] [place] [address] 4 1:00 PM EDT Home Visit Care Coordination and Integration [address] [place] [address] Cinthya Weber, Community Health Hr Coordinator [address] [place] [address] 4 10:30 AM EDT Office Visit Pulmonary Medicine, [place] [address] [facility] [place] [address] Raulito Cosme MD [address] [place] [address] 4 1:30 PM EDT Office Visit Cardiology, [facility] [address] [facility] [place] [address] Shilpi Bailey PA-C [address] [place] [address] 4 10:00 AM EDT Home Visit [facility], [facility] [address] [facility] [place] [address] July Diaz, RN [address] [place] [address] 4 12:10 PM EDT Office Visit [facility] [address] [place] [id number] Kat Hawthorne DO [address] [place] [address] 4 9:45 AM EDT Hospital Encounter ENDO [facility], Endoscopy Suite, HFAM 1, [address] [facility] [place] [address] Fish Ahmadi MD [address] [place] [address] 4 9:45 AM EDT - 4 11:30 AM EDT Surgery [place] [facility] Endoscopy Suite, HFAM 1, [address] [place] [address] Fish Amhadi MD [address] [place] [address] ESOPHAGOGASTRODUODENOSCOPY (EGD), FLEXIBLE, TRANSORAL, ENDOSCOPIC ULTRASOUND 4 10:30 AM EDT Office Visit Orthopaedics, [place] [address] [place] [address] Cholo Shah MD [address] [place] [address] 4 10:30 AM EDT Office Visit Gynecology/Oncolo , [place] [address] [place] [address] Jeanie Gunter PA-C [address] [place] [address] Pending Results Name Type Priority Associated Diagnoses Date /Time BASIC SPIROMETRY Procedures Routine ILD (interstitial lung disease) ([facility]) 02/09/2024 1:03 PM EDT DIFFUSION CAPACITY (DLCO) Procedures Routine ILD (interstitial lung disease) ([facility]) 02/09/2024 1:03 PM EDT Scheduled Procedures Name Priority Associated Diagnoses Date/Ti wa ESOPHAGOGASTRODUODENOSCOPY ( EGD), FLEXIBLE, TRANSORAL, ENDOSCOPIC ULTRASOUND [...] COPD 03/10/2024 03/10/2023 CKD PHOS USE SMARTSET 61679 03/16/202406/2023, 03/15/2023, 03/14/2023, Additional history exists GFR 06/08/2024 12/09/2023, 07/2023, 07/14/2023, Additional history exists CKD HGB USE SMARTSET 96568 12/09/202412/09, 12/09/2023, 09/17/2023, Additional history exists Mammogram [...] this encounter Medical Devices Implanted Type Area Recycling Collections Driver Device Identifier Shelf Expiration Date Model / Serial / Lot Cement Bone Simplex Hv & G - [id number] Implanted:Qty: 2 on 01/05/2023 by Harley Nguyen DO at OR [facility] Left: Knee ROSALIA : ORTHOPAEDICS 06/08/2024 6195-1-010 / / [id number] Component Femoral Size 5 - [id number] Implanted:Qty: 1 on 01/05/2023 by Harley Nguyen DO at OR [facility] Left: Knee ROSALIA : ORTHOPAEDICS 08/09/2026 5510-F-501 / / [id number] Knee Tria Syetric X3 10x36 - [id number] Implanted:Qty: 1 on 01/05/2023 by Harley Nguyen DO at OR [facility] Left: Knee ROSALIA : ORTHOPAEDICS 09/24/2027 5550-G-360 -E / / [id number] Baseplate Tib 5 Knee - [id number] Implanted:Qty: 1 on 01/05/2023 by Harlye Nguyen DO at OR [facility] Left: Knee ROSALIA : ORTHOPAEDICS 12/14/2027 5521-B-500 / / [id number] Knee X3 Ins Pos Cs Sz5 9 - [id number] Implanted:Qty: 1 on 01/05/2023 by Harley Nguyen DO at OR [facility] Left: Knee ROSALIA : ORTHOPAEDICS 11/19/2027 5531-G-509 -E / / [id number] Cement Bone Full Mix Surg Simp - [id number] Implanted:Qty: 1 on 03/03/2023 by Cholo Shah MD [place] [facility] [place]: Knee ROSALIA : ORTHOPAEDICS 05/08/2025 6191-1-010 / / [id number] Knee Tib Comp Poly Krh 8 Lg - [id number] Implanted:Qty: 1 on 03/03/2023 by Cholo Shah MD [place] [facility] [place]: Knee ROS[employer]IA : ORTHOPAEDICS 07/19/2023 6485-2-308 / / [id number] Knee Hrhk Mod Rot Hng Bushing - [id number] Implanted:Qty: 1 on 03/03/2023 by Cholo Shah MD [place] [facility] [place]: Knee ROS[employer]IA : ORTHOPAEDICS 01/09/2027 6481-2-110 / / [id number] Knee Hrhk Mod Rot Hng Bushing - [id number] Implanted:Qty: 1 on 03/03/2023 by Cholo Shah MD [place] [facility] Right: Knee ROSALIA : ORTHOPAEDICS 11/21/2026 6481-2-110 / / [id number] Knee Stem Crv Mod Mrs 06t186 - [id number] Implanted:Qty: 1 on 03/03/2023 by Cholo Shah MD [place] [facility] [place]: Knee ROSALIA : ORTHOPAEDICS 10/02/2026 6485-3-715 / / [id number] Tib Mrh Cross Bear Long Xs/Xl - [id number] Implanted:Qty: 1 on 03/03/2023 by Cholo Shah MD [place] [facility] [place]: Knee ROSALIA : ORTHOPAEDICS 12/05/2025 6481-2-103 / / [id number] Knee Tib Bumper Rot Hng Nue - [id number] Implanted:Qty: 1 on 03/03/2023 by Cholo Shah MD [place] [facility] Right: Knee ROSALIA : ORTHOPAEDICS 07/15/2027 6481-2-130 / / [id number] Distal Femoral Component Implanted:Qty: 1 on 03/03/2023 by Cholo Shah MD [place] [facility] [place]: Knee ROSALIA : ORTHOPAEDICS 08/23/2023 6495-2-040 / / [id number] Knee Axle Hrhk Rot Mod Hng - [id number] Implanted:Qty: 1 on 03/03/2023 by Cholo Shah MD [place] [facility] [place]: Knee ROSALIA : ORTHOPAEDICS 06/30/2027 6481-2-120 / / [id number] Restrictors Med Cmnt X031-3645 - [id number] Implanted:Qty: 1 on 03/03/2023 by Cholo Shah MD [place] [facility] Right: Knee ROS[employer]IA : ORTHOPAEDICS 11/18/2027 L354-2357 / / Cement Bone Full Mix Surg Simp - [id number] Implanted:Qty: 1 on 03/03/2023 by Cholo Shah MD [place] [facility] [place]: Knee ROS[employer]IA : ORTHOPAEDICS 07/09/2025 6191-1-010 / / [id number] Cement Bone Full Mix Surg Simp - [id number] Implanted:Qty: 1 on 03/03/2023 by Cholo Shah MD [place] [facility] [place]: Knee ROS[employer]IA : ORTHOPAEDICS 06/08/2025 6191-1-010 / / [id number] Cement Bone Full Mix Surg Simp - [id number] Implanted:Qty: 1 on 03/03/2023 by Cholo Shah MD [place] [facility] [place]: Knee ROS[employer]IA : ORTHOPAEDICS 05/08/2025 6191-1-010 / / [id number] Knee Fem Gmrs Dis Std R - [id number] Implanted:Qty: 1 on 03/10/2023 by Cholo Shah MD [place] [facility] [place]: Knee ROS[employer]IA : ORTHOPAEDICS 10/21/2027 6495-2-040 / / [id number] Knee Hrhk Mod Rot Hng Bushing - [id number] Implanted:Qty: 1 on 03/10/2023 by Cholo Shah MD [place] [facility] [place]: Knee ROS[employer]IA : ORTHOPAEDICS 01/29/2027 6481-2-110 / / [id number] Knee Axle Hrhk Rot Mod Hng - [id number] Implanted:Qty: 1 on 03/10/2023 by Cholo Shah MD [place] [facility] [place]: Knee ROSALIA : ORTHOPAEDICS 09/15/2027 6481-2-120 / / [id number] Tib Mrh Cross Bear Long Xs/Xl - [id number] Implanted:Qty: 1 on 03/10/2023 by Cholo Shah MD [place] [facility] [place]: Knee ROSALIA : ORTHOPAEDICS 09/30/2027 6481-2-103 / / [id number] Knee Hrhk Mod Rot Hng Bushing - [id number] Implanted:Qty: 1 on 03/10/2023 by Cholo Shah MD [place] [facility] Right: Knee ROSALIA : ORTHOPAEDICS 04/24/2027 6481-2-110 / / [id number] Knee Tib Bumper Issac Hayden Nue - [id number] Implanted:Qty: 1 on 03/10/2023 by Cholo Shah MD [place] [facility] [place]: Knee ROSALIA : ORTHOPAEDICS 10/15/2027 6481-2-130 / / [id number] documented as of this encounter Procedures Procedure [...] Documents on File Type Date Recorded 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 Care Teams Hvac Commercial Salesperson Relationship Specialty Start Date End Date Kat Hawthorne DO [address] [place] [address] PCP - General Family Medicine 08/20/22 documented as of this encounter
--- OUTSIDE RECORDS SUMMARY | 2024-04-16 12:37 | External Medical Summary | Summary of Care ---
Author Name Unknown Organization [facility] Address [address] [place] [address] Phone [phone] Care Team Providers Care Calendar Control Clerk Blood Bank Name Role Phone Kat Hawthorne DO Primary Care Provider [phone] Reason for Visit * Reason Comments Pulmonary Function Test PFT without bron chodilator per provider's request. Oxygen Assessment Pt requested to do w alk in [place]. That is where she usually does her walk test and prefers to do there. Encounter Details Date Type Department Care Team (Latest Contact Info) Description 02/09/2024 1:00 PM EDT PulmDiagnostic Pulmonary Function Lab, [facility] 132 [facility] [place] [address] [place], [address]ft 132 [facility] [place] [address] ILD (interstitial lung disease) ([facility])*; Chronic respiratory failure with hypoxia ([facility]) Allergies Active Allergy Reactions Criticality Noted Date [...] IN GASIndications:ILD (interstitial lung disease) ([facility]),Chronic respiratory failure with hypoxia (HCC) Use 2 LPM with exertion and 3 LPM with sleep. Needs small portable tanks, standing concentrator DME: [facility] 1 Each 0 07/02/2022 Active Proventil HFA 108 (90 Base) MCG/ACT Inhalation Aerosol SolutionIndications: ILD (interstitial lung disease) ([facility]) Inhale by mouth 2 Puffs every [...] mouth in the morning. 0 Active Nystatin 717952 UNIT/GM External Powder (Nystop) Apply topically to [...] & Plan: S/P wound vac placement at [facility] On doxycycline 100 mg BID x 14 days Old [place] (myocardial infarction) 04/14/2023 Hyperlipidemia 04/14/2023 Hereditary hemolytic [...] liters with exertion. 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 Spirometry and DLCO performed without bronchodilator per providers request. Pt requested to do walk in [place]. That is where she usually does her walk test and prefers to do there. documented in this encounter Plan of Treatment Upcoming Encounters Date Type Department Care Team (Latest Contact Info) Description 1:00 PM EDT Imaging Radiology [address], [address] [place] [address] 4 1:00 PM EDT Home Visit Care Coordination and Integration [address] [place] [address] Cinthya Weber, Community Health Call Center Receptionist [address] [place] [address] 4 10:30 AM EDT Office Visit Pulmonary Medicine, [place] [address] [place] [facility] [place] [address] Raulito Cosme MD [address] [place] [address] 4 1:30 PM EDT Office Visit Cardiology, [facility] [address] [facility] [place] [address] Shilpi Bailey PA-C [address] [facility] [place] [address] 4 10:00 AM EDT Home Visit [facility], [facility] [address] [facility] [place] [address] July Diaz, RN [address] [place] [address] 4 12:10 PM EDT Office Visit [facility] [address] [place] [address] Kat Hawthorne DO [address] [place] [address] 4 9:45 AM EDT Hospital Encounter ENDO [facility], Endoscopy Suite, HFAM 1, [address] [facility] [place] [address] Fish Ahmadi MD [address] [place] [address] 4 9:45 AM EDT - 4 11:30 AM EDT Surgery ENDO [facility], Endoscopy Suite, HFAM 1, [address] [place] [address] Fish Ahmadi MD [address] [place] [address] ESOPHAGOGASTRODUODENOSCOPY (EGD), FLEXIBLE, TRANSORAL, ENDOSCOPIC ULTRASOUND 4 10:30 AM EDT Office Visit Orthopaedics, [place] [address] [place] [address] Cholo Shah MD [address] [place] [address] 4 10:30 AM EDT Office Visit Gynecology/Oncolo , [place] [address] [place] [address] Jeanie Gunter PA-C [address] [place] [address] Pending Results Name Type Priority Associated Diagnoses Date /Time BASIC SPIROMETRY Procedures Routine ILD (interstitial lung disease) ([facility]) 02/09/2024 1:03 PM EDT DIFFUSION CAPACITY (DLCO) Procedures Routine ILD (interstitial lung disease) ([facility]) 02/09/2024 1:03 PM EDT Scheduled Procedures Name Priority Associated Diagnoses Date/Ti nd ESOPHAGOGASTRODUODENOSCOPY ( EGD), FLEXIBLE, TRANSORAL, ENDOSCOPIC ULTRASOUND [...] COPD 03/10/2024 03/10/2023 CKD PHOS USE SMARTSET 66740 03/16/202406/2023, 03/15/2023, 03/14/2023, Additional history exists GFR 06/08/2024 12/09/2023, 07/2023, 07/14/2023, Additional history exists CKD HGB USE SMARTSET 88401 12/09/202412/09, 12/09/2023, 09/17/2023, Additional history exists Mammogram [...] this encounter Medical Devices Implanted Type Area Airplane Tester Device Identifier Shelf Expiration Date Model / Serial / Lot Cement Bone Simplex Hv & G - [id number] Implanted:Qty: 2 on 01/05/2023 by Harley Nguyen DO at OR [facility] Left: Knee [employer]IA : ORTHOPAEDICS 06/08/2024 6195-1-010 / / [id number] Component Femoral Size 5 - [id number] Implanted:Qty: 1 on 01/05/2023 by Harley Nguyen DO at OR [facility] Left: Knee [employer]IA : ORTHOPAEDICS 08/09/2026 5510-F-501 / / [id number] Knee Tria Syetric X3 10x36 - [id number] Implanted:Qty: 1 on 01/05/2023 by Harley Nguyen DO at OR [facility] Left: Knee [employer]IA : ORTHOPAEDICS 09/24/2027 5550-G-360 -E / / [id number] Baseplate Tib 5 Knee - [id number] Implanted:Qty: 1 on 01/05/2023 by Harley Nguyen DO at OR [facility] Left: Knee ROS[employer]IA : ORTHOPAEDICS 12/14/2027 5521-B-500 / / [id number] Knee X3 Ins Pos Cs Sz5 9 - [id number] Implanted:Qty: 1 on 01/05/2023 by Harley Nguyen DO at OR [facility] Left: Knee ROS[employer]IA : ORTHOPAEDICS 11/19/2027 5531-G-509 -E / / [id number] Cement Bone Full Mix Surg Simp - [id number] Implanted:Qty: 1 on 03/03/2023 by Cholo Shah MD at OR [facility] Right: Knee ROSALIA : ORTHOPAEDICS 05/08/2025 6191-1-010 / / [id number] Knee Tib Comp Poly Krh 8 Lg - [id number] Implanted:Qty: 1 on 03/03/2023 by Cholo Shah MD at OR [facility] Right: Knee ROSALIA : ORTHOPAEDICS 07/19/2023 6485-2-308 / / [id number] Knee Hrhk Mod Rot Hng Bushing - [id number] Implanted:Qty: 1 on 03/03/2023 by Cholo hSah MD at OR [facility] Right: Knee ROS[employer]IA : ORTHOPAEDICS 01/09/2027 6481-2-110 / / [id number] Knee Hrhk Mod Rot Hng Bushing - [id number] Implanted:Qty: 1 on 03/03/2023 by Cholo Shah MD at OR [facility] Right: Knee ROSALIA : ORTHOPAEDICS 11/21/2026 6481-2-110 / / [id number] Knee Stem Crv Mod Mrs 64f220 - [id number] Implanted:Qty: 1 on 03/03/2023 by Cohlo Shah MD at OR [facility] Right: Knee ROSALIA : ORTHOPAEDICS 10/02/2026 6485-3-715 / / [id number] Tib Mrh Cross Bear Long Xs/Xl - [id number] Implanted:Qty: 1 on 03/03/2023 by Cholo Shah MD at OR [facility] Right: Knee ROS[employer]IA : ORTHOPAEDICS 12/05/2025 6481-2-103 / / [id number] Knee Tib Bumper Rot Hng Nue - [id number] Implanted:Qty: 1 on 03/03/2023 by Cholo Shah MD at OR [facility] Right: Knee ROSALIA : ORTHOPAEDICS 07/15/2027 6481-2-130 / / [id number] Distal Femoral Component Implanted:Qty: 1 on 03/03/2023 by Cholo Shah MD at OR [facility] Right: Knee ROSALIA : ORTHOPAEDICS 08/23/2023 6495-2-040 / / [id number] Knee Axle Hrhk Rot Mod Hng - [id number] Implanted:Qty: 1 on 03/03/2023 by Cholo Shah MD at OR [facility] Right: Knee ROSALIA : ORTHOPAEDICS 06/30/2027 6481-2-120 / / [id number] Restrictors Med Cmnt W094-2144 - [id number] Implanted:Qty: 1 on 03/03/2023 by Cholo Shah MD at OR [facility] Right: Knee ROSALIA : ORTHOPAEDICS 11/18/2027 B399-8074 / / Cement Bone Full Mix Surg Simp - [id number] Implanted:Qty: 1 on 03/03/2023 by Cholo Shah MD at OR [facility] Right: Knee ROSALIA : ORTHOPAEDICS 07/09/2025 6191-1-010 / / [id number] Cement Bone Full Mix Surg Simp - [id number] Implanted:Qty: 1 on 03/03/2023 by Cholo Shah MD at OR [facility] Right: Knee ROSALIA : ORTHOPAEDICS 06/08/2025 6191-1-010 / / [id number] Cement Bone Full Mix Surg Simp - [id number] Implanted:Qty: 1 on 03/03/2023 by Cholo Shah MD at OR [facility] Right: Knee ROSALIA : ORTHOPAEDICS 05/08/2025 6191-1-010 / / [id number] Knee Fem Gmrs Dis Std R - [id number] Implanted:Qty: 1 on 03/10/2023 by Cholo Shah MD at OR [facility] Right: Knee ROSALIA : ORTHOPAEDICS 10/21/2027 6495-2-040 / / [id number] Knee Hrhk Mod Rot Hng Bushing - [id number] Implanted:Qty: 1 on 03/10/2023 by Cholo Shah MD at OR [facility] Right: Knee ROSALIA : ORTHOPAEDICS 01/29/2027 6481-2-110 / / [id number] Knee Axle Hrhk Rot Mod Hng - [id number] Implanted:Qty: 1 on 03/10/2023 by Cholo Shah MD at OR [facility] Right: Knee ROS[employer]IA : ORTHOPAEDICS 09/15/2027 6481-2-120 / / [id number] Tib Mrh Cross Bear Long Xs/Xl - [id number] Implanted:Qty: 1 on 03/10/2023 by Cholo Shah MD at OR [facility] Right: Knee ROS[employer]IA : ORTHOPAEDICS 09/30/2027 6481-2-103 / / [id number] Knee Hrhk Mod Rot Hng Bushing - [id number] Implanted:Qty: 1 on 03/10/2023 by Cholo Shah MD at OR [facility] Right: Knee ROS[employer]IA : ORTHOPAEDICS 04/24/2027 6481-2-110 / / [id number] Knee Tib Bumper Issac Hayden Nue - [id number] Implanted:Qty: 1 on 03/10/2023 by Cholo Shah MD at OR [facility] Right: Knee ROS[employer]IA : ORTHOPAEDICS 10/15/2027 6481-2-130 / / [id number] documented as of this encounter Procedures Procedure [...] Documents on File Type Date Recorded Patient Store Coordinator Expl 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 Care Teams Calendar Control Clerk Blood Bank Relationship Specialty Start Date End Date Kat Hawthorne DO [address] [place] [address] PCP - General Family Medicine 08/20/22 documented as of this encounter
--- OUTSIDE RECORDS SUMMARY | 2024-04-16 12:37 | External Medical Summary | Summary of Care ---
Author Name Unknown Organization [facility] Address [address] [place] [address] Phone [phone] Care Team Providers Care Optical Dispenser Name Role Phone Antonia Hawthorne DO Primary Care Provider Reason for Visit * Reason Onset Date Comments Medication Refill 01/29/2024 Encounter Details Date Type Department Care Team (Late st Contact Info) Description 01/29/2024 Refill [facility] [address] [place] [address] Antonia Hawthorne DO [address] [place] [address] GENERAL OSTEOARTHROSIS Allergies Active Allergy [...] as of this encounter (statuses as of 01/29/2024) Medications Medication Sig Dispensed Refills Start Date [...] Active oxygen IN GASIndications:ILD (interstitial lung disease) ([facility]),Chronic respiratory failure with hypoxia (HCC) Use 2 LPM with exertion and 3 LPM with sleep. Needs small portable tanks, standing concentrator DME: [facility] 1 Each 0 2 Active Proventil HFA 108 (90 Base) MCG/ACT Inhalation Aerosol SolutionIndications :ILD (interstitial lung disease) ([facility]) Inhale by mouth 2 [...] mouth in the morning. 0 Active Nystatin 884427 UNIT/GM External Powder (Nystop) Apply topically to [...] for Anxiety. 60 Tablet 0 4 Active Fosfomycin Tromethamine 3 GM Oral Packet (Monurol)Indication s:Recurrent UTI Take 3 g by mouth once a week. 12 Packet 2 4 10/05/20 24 Active Cyclobenzaprine HCl 5 MG Oral Tablet (Flexeril)Indicatio ns:Generalized osteoarthritis Take 1 tablet by mouth twice daily as needed for muscle spasm 60 Tablet 2 4 Active Cyclobenzaprine HCl 5 MG Oral Tablet (Flexeril)Indicatio ns:Generalized osteoarthritis Take 1 tablet by mouth twice daily as needed for muscle spasm 60 Tablet 2 3 01/29/20 24 Discontinu ed(Refill) documented as of this encounter (statuses as of 01/29/2024) Active Problems Problem Noted Date Diagnosed Date [...] & Plan: S/P wound vac placement at [facility] On doxycycline 100 mg BID x [address] (myocardial infarction) 04/14/2023 Hyperlipidemia 04/14/2023 Hereditary hemolytic [...] as of this encounter (statuses as of 01/29/2024) Resolved Problems Problem Noted Date Diagnosed Date [...] as of this encounter (statuses as of 01/29/2024) Immunizations Name Administration Dates Next Due COVID-19 [...] Telephone Encounter - Antonia Hawthorne DO - 01/29/2024 10:38 AM EDTSigned Prescriptions: Disp Refills Cyclobenzaprine HCl 5 MG Oral Tablet (Flex*60 Tab*2 Sig: Take 1 tablet by mouth twice daily as needed for muscle spasm Authorizing Provider: ANTONIA HAWTHORNE * Telephone Encounter - Bailey San CPhT - 01/29/2024 10:23 AM EDT Did you pend patient's preferred pharmacy and medication before forwarding?yes Pharmacy: [facility] [phone] Pending Prescriptions: Disp Refills Cyclobenzaprine HCl 5 MG Oral Tablet (Fle*60 Tab*2 Sig: Take 1 tablet by mouth twice daily as needed for muscle spasm Last Visit: 10/19/2023 (in office), 12/04/2020 (telemedicine) Next Visit: 03/30/2024 If no future appointments scheduled, and last appointment is greater than a year ago, please schedule patient for a follow-up appointment Last date the medication was ordered: 10/19/2023 Is this request for a controlled substance?No [...] Labs: Lab Results Component Value Date/Time CREAT 1.1 (H) 12/09/2023 02:30 PM CREAT 0.84 05/26/2023 12:00 AM CREAT 0.9 11/28/2020 08:44 AM POTASSIUM 4.3 12/09/2023 02:30 PM POTASSIUM 3.9 05/26/2023 12:00 AM POTASSIUM 5.1 11/28/2020 08:44 AM TSH 3.15 12/09/2019 09:55 AM LDLCALC 76 08/02/2019 11:00 AM LDLDIRECT 97 09/03/2022 01:57 PM ALT 48 (H) 12/09/2023 02:30 PM ALT 25 11/28/2020 08:44 AM HGBA1C 5.8 (H) 12/18/2022 11:51 AM HGBA1C 6.2 05/27/2018 09:52 AM documented in this encounter Plan of Treatment Upcoming Encounters Date Type Department Care Team (Latest Contact Info) Description 02/09/20 24 1:00 PM EDT PulmDiagnostic Pulmonary Function Lab, [facility] [address] [facility] [place] [address] [place], [address] [place], [place] [address] 02/15/20 24 1:00 PM EDT Imaging Radiology [facility] [address] [place] [address] 02/16/20 24 1:00 PM EDT Home Visit [facility] [address] [place] [address] Cinthya Weber, [facility] Foot Miter Operator [address] [place] [address] 02/17/20 24 10:30 AM EDT Office Visit Pulmonary Medicine, [place] [address] [place] [address] Raulito Cosme MD [address] [place] [address] 02/19/20 24 1:30 PM EDT [facility] [place] [address] Shilpi Bailey, PATammiC [address] [facility] [place] [address] 03/08/20 24 10:00 AM EDT Home Visit [facility], [facility] [place] [address] July Diaz, RN [address] [facility] [place] [address] 03/30/20 24 12:10 PM EDT Office Visit [facility] [address] [place] [id number] Antonia Hawthorne, [address] [place] [address] 04/18/20 9:45 AM EDT Hospital Encounter [facility], Endoscopy Suite, [facility] 1, [address] [place] [address] Fish Ahmadi MD [address] [place] [address] 04/18/20 9:45 AM EDT - 04/18/20 11:30 AM EDT Surgery [facility], Endoscopy Suite, [facility] 1, [address] [place] [address] Fish Ahmadi MD [address], [place] [id number] ESOPHAGOGASTRODUODENOSCOPY (EGD), FLEXIBLE, TRANSORAL, ENDOSCOPIC ULTRASOUND 05/05/20 10:30 AM EDT Office Visit Orthopaedics, [place] [address] [place] [address] Cholo Shah MD [address] [place] [address] 05/10/20 10:30 AM EDT Office Visit Gynecology/Oncol ogy, [place] [address] [place] [address] Jeanie Gunter PA-C [address] [place] [address] Scheduled Procedures Name Priority Associated Diagnoses Date/Ti [...] COPD 03/10/2024 03/10/2023 CKD PHOS USE SMARTSET 45809 03/16/2024 050 06/2023, 03/15/2023, 03/14/2023, Additional history exists GFR 06/08/2024 12/09/2023, 07/2023, 07/14/2023, Additional history exists CKD HGB USE SMARTSET 53903 12/09/202412/09, 12/09/2023, 09/17/2023, Additional history exists Mammogram [...] this encounter Medical Devices Implanted Type Area Buncher Machine Device Identifier Shelf Expiration Date Model / Serial / Lot Cement Bone Simplex Hv & G - [id number] Implanted:Qty: 2 on 01/05/2023 by Harley Nguyen DO at OR [facility] Left: Knee [employer] : [employer]TH[employer] 06/08/2024 6195-1-010 / / [id number] Component Femoral Size 5 - [id number] Implanted:Qty: 1 on 01/05/2023 by Harley Nguyen DO at OR [facility] Left: Knee [employer] : [employer]TH[employer] 08/09/2026 5510-F-501 / / [id number] Knee Tria Syetric X3 10x36 - [id number] Implanted:Qty: 1 on 01/05/2023 by Harley Nguyen DO at OR [facility] Left: Knee [employer] : [employer] 09/24/2027 5550-G-360 -E / / [id number] Baseplate Tib 5 Knee - [id number] Implanted:Qty: 1 on 01/05/2023 by Harley Nguyen DO at OR [facility] Left: Knee [employer] : [employer] 12/14/2027 5521-B-500 / / [id number] Knee X3 Ins Pos Cs Sz5 9 - [id number] Implanted:Qty: 1 on 01/05/2023 by Harley Nguyen DO at OR [facility] Left: Knee [employer] : [employer] 11/19/2027 5531-G-509 -E / / [id number] Cement Bone Full Mix Surg Simp - [id number] Implanted:Qty: 1 on 03/03/2023 by Cholo Shah MD at [place] [facility] Right: Knee [employer] : [employer] 05/08/2025 6191-1-010 / / [id number] Knee Tib Comp Poly Krh 8 Lg - [id number] Implanted:Qty: 1 on 03/03/2023 by Cholo Shah MD at [place] [facility] Right: Knee [employer] : [employer] 07/19/2023 6485-2-308 / / [id number] Knee Hrhk Mod Rot Hng Bushing - [id number] Implanted:Qty: 1 on 03/03/2023 by Cholo Shah MD at [place] [facility] Right: Knee [employer] : [employer]TH[employer] 01/09/2027 6481-2-110 / / [id number] Knee Hrhk Mod Rot Hng Bushing - [id number] Implanted:Qty: 1 on 03/03/2023 by Cholo Shah MD at [place] [facility] Right: Knee [employer] : [employer]TH[employer] 11/21/2026 6481-2-110 / / [id number] Knee Stem Crv Mod Mrs 54i825 - [id number] Implanted:Qty: 1 on 03/03/2023 by Cholo Shah MD at [place] [facility] Right: Knee [employer] : [employer]TH[employer] 10/02/2026 6485-3-715 / / [id number] Tib Mrh Cross Bear Long Xs/Xl - [id number] Implanted:Qty: 1 on 03/03/2023 by Cholo Shah MD at [place] [facility] Right: Knee [employer] : [employer]TH[employer] 12/05/2025 6481-2-103 / / [id number] Knee Tib Bumper Rot Hng Nue - [id number] Implanted:Qty: 1 on 03/03/2023 by Cholo Shah MD at [place] [facility] Right: Knee [employer] : [employer]TH[employer] 07/15/2027 6481-2-130 / / [id number] Distal Femoral Component Implanted:Qty: 1 on 03/03/2023 by Cholo Shah MD at [place] [facility] Right: Knee [employer] : [employer]TH[employer] 08/23/2023 6495-2-040 / / [id number] Knee Axle Hrhk Rot Mod Hng - [id number] Implanted:Qty: 1 on 03/03/2023 by Cholo Shah MD at [place] [facility] Right: Knee [employer] : [employer]TH[employer] 06/30/2027 6481-2-120 / / [id number] Restrictors Med Cmnt K115-9471 - [id number] Implanted:Qty: 1 on 03/03/2023 by Cholo Shah MD at [place] [facility] Right: Knee [employer] : ORTH[employer] 11/18/2027 G429-2963 / / Cement Bone Full Mix Surg Simp - [id number] Implanted:Qty: 1 on 03/03/2023 by Cholo Shah MD at [place] [facility] Right: Knee [employer] : [employer]TH[employer] 07/09/2025 6191-1-010 / / [id number] Cement Bone Full Mix Surg Simp - [id number] Implanted:Qty: 1 on 03/03/2023 by Cholo Shah MD at [place] [facility] Right: Knee [employer] : [employer]TH[employer] 06/08/2025 6191-1-010 / / [id number] Cement Bone Full Mix Surg Simp - [id number] Implanted:Qty: 1 on 03/03/2023 by Cholo Shah MD at [place] [facility] Right: Knee [employer] : ORTH[employer] 05/08/2025 6191-1-010 / / [id number] Knee Fem Gmrs Dis Std R - [id number] Implanted:Qty: 1 on 03/10/2023 by Cholo Shah MD at [place] [facility] Right: Knee [employer] : ORTH[employer] 10/21/2027 6495-2-040 / / [id number] Knee Hrhk Mod Rot Hng Bushing - [id number] Implanted:Qty: 1 on 03/10/2023 by Cholo Shah MD at [place] [facility] Right: Knee [employer] : ORTH[employer] 01/29/2027 6481-2-110 / / [id number] Knee Axle Hrhk Rot Mod Hng - [id number] Implanted:Qty: 1 on 03/10/2023 by Cholo Shah MD at [place] [facility] Right: Knee [employer] : ORTH[employer] 09/15/2027 6481-2-120 / / [id number] Tib Mrh Cross Bear Long Xs/Xl - [id number] Implanted:Qty: 1 on 03/10/2023 by Cholo Shah MD at [place] [facility] Right: Knee [employer] : ORTHOPAEDICS 09/30/2027 6481-2-103 / / [id number] Knee Hrhk Mod Rot Hng Bushing - [id number] Implanted:Qty: 1 on 03/10/2023 by Cholo Shah MD at [place] [facility] Right: Knee [employer] : ORTHOPA[employer]ICS 04/24/2027 6481-2-110 / / [id number] Knee Tib Bumper Issac Montes - [id number] Implanted:Qty: 1 on 03/10/2023 by Cholo Shah MD at [place] [facility] Right: Knee [employer] : ORTHOPAED[employer] 10/15/2027 6481-2-130 / / [id number] documented as of this encounter Visit Diagnoses Diagnosis GENERAL OSTEOARTHROSIS Generalized osteoarthrosis, unspecified site Choledocholithiasis Calculus of bile duct without mention of cholecystitis or obstruction documented in this encounter Advance Directives Documents on File Type Date Recorded Patient Mat Cutter Expl 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 Care Teams Optical Dispenser Relationship Specialty Start Date End Date Antonia Hawthorne DO [address] [place] [address] PCP - General Family Medicine 08/20/22 documented as of this encounter
--- OUTSIDE RECORDS SUMMARY | 2024-04-16 12:37 | External Medical Summary | Summary of Care ---
Author Name Unknown Organization [facility] Address [address] [place] [address] Phone [phone] Care Team Providers Care Ethologist Name Role Phone Kat Hawthorne DO Primary Care Provider [phone] Reason for Visit * Reason Comments Follow Up Encounter Details Date Type Department Care Team ([facility] st Contact Info) Description 01/27/2024 12:40 PM EDT Office Visit Infectious Disease [facility] [address] [place] [address] Trish Mock MD [address] [place] [address] Fall, initial encounter*; Recurrent UTI Allergies Active Allergy Reactions Criticality Noted Date [...] as of this encounter (statuses as of 01/27/2024) Medications Medication Sig Dispensed Refills Start Date [...] Active oxygen IN GASIndications:ILD (interstitial lung disease) ([facility]),Chronic respiratory failure with hypoxia ([facility]) Use 2 LPM with exertion and 3 LPM with sleep. Needs small portable tanks, standing concentrator DME: [employer] 1 Each 0 2 Active Proventil HFA 108 (90 Base) MCG/ACT Inhalation Aerosol SolutionIndications :ILD (interstitial lung disease) ([facility]) Inhale by mouth 2 Puffs every [...] mouth in the morning. 0 Active Nystatin 362128 UNIT/GM External Powder (Nystop) Apply topically to [...] a day. 28 g 1 3 Active Cyclobenzaprine HCl 5 MG Oral Tablet (Flexeril)Indicatio ns:Generalized osteoarthritis Take 1 tablet by mouth twice daily as needed for muscle spasm 60 Tablet 2 3 Active predniSONE 20 MG Oral Tablet [...] 12 Packet 2 4 10/05/20 24 Active Fosfomycin Tromethamine 3 GM Oral Packet (Monurol)Indication s:Recurrent UTI Take 3 g by mouth once a week. 4 Packet 1 4 01/27/20 24 Discontinu ed(Refill) documented as of this encounter (statuses as of 01/27/2024) Active Problems Problem Noted Date Diagnosed Date [...] as of this encounter (statuses as of 01/27/2024) Resolved Problems Problem Noted Date Diagnosed Date [...] as of this encounter (statuses as of 01/27/2024) Immunizations Name Administration Dates Next Due COVID-19 [...] Sign Reading Time Taken Comments Blood Pressure 122/62 01/27/2024 12:42 PM EDT Pulse 62 01/27/2024 12:42 PM EDT Temperature 37 C (98.6 F) 01/27/2024 12: 42 PM EDT Respiratory Rate 16 01/27/2024 12:4 2 PM EDT Oxygen Saturation 92% 01/27/2024 12: 42 PM EDT 5 liters of oxygen Inhaled Oxygen Concentration - - Weight 105.7 kg (233 lb) 01/27/2024 12: 42 PM EDT Height 170.2 cm (5' 7") 01/27/2024 12:4 2 PM EDT Body Mass Index 36.49 01/27/2024 12:42 PM EDT documented in this encounter Functional [...] as of this encounter Progress Notes * Trish Mock MD - 01/27/2024 12:45 PM EDT Images from the original note were not included. INFECTIOUS DISEASE [facility]: Orin Bah is a 68 year old female here for follow up of recurrent UTI HPI: 68 y/o F PMHx recurrent ESBL E coli UTI w/ nephrolithiasis on fosfomycin suppression since 2021, depression, esophageal reflux, HTN, fatty liver w/ cirrhosis, chronic hypoxic respiratory failurew/ ILD, L TKA (12/2021), and morbid obesity. Patient is on oral suppressive therapy with fosfomycin once a week on Sundays Patient reports she injured her left leg and would like it looked at .She is chronically on bactrim for PJP prophylaxis Review of patient's allergies indicates: Allergen Reactions [...] Capsule by mouth in the morning. Nystatin 637521 UNIT/GM External Powder (Nystop) Apply topically to [...] morning and at noon. 60 Tablet 5 Hydrocortisone (Perianal) 2.5 % External Cream Administer into the rectum 2 times a day. 28 g 1 Cyclobenzaprine HCl 5 MG Oral Tablet (Flexeril) Take 1 tablet by mouth twice daily as needed for muscle spasm 60 Tablet 2 predniSONE 20 MG Oral Tablet (Deltasone) Take [...] AT BEDTIME NEEDED FOR ITCHING 30 Tablet3 LORazepam 0.5 MG Oral Tablet (Ativan) Take 1 Tablet by mouth every 8 hours as needed for Anxiety. 60 Tablet 0 Fosfomycin Tromethamine 3 GM Oral Packet (Monurol) Take 3 g by mouth once a week. 4 Packet 1 Amoxicillin 500 MG Oral Capsule (Amoxil) Take 4 Capsules by mouth as needed (one hour prior to dental procedure) for up to 1 dose. 4 Capsule 3 No current facility-administered medications for this visit. 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 Anemia in other chronic diseases classified elsewhere D63.8 Ovarian cancer on left (HCC) C56.2 S/P MONIKA-BSO (total abdominal hysterectomy and bilateral salpingo-oophorectomy) Z90.710, Z90.722, Z90.79 PAF (paroxysmal atrial fibrillation) (HCC) I48.0 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) E66.2 Presence of cardiac pacemaker Z95.0 Chronic respiratory failure with hypoxia (HCC) J96.11 ILD (interstitial lung disease) (HCC) J84.9 Pulmonary HTN (HCC) I27.20 History of ovarian cancer Z85.43 Hypertensive heart disease with heart failure (HCC) I11.0 Severe obesity with body mass index (BMI) of 35.0 to 39.9 with serious comorbidity ([facility]) E66.01 Prediabetes R73.03 S/P total knee arthroplasty, left Z96.652 History of recent blood transfusion Z92.89 Old HI (myocardial infarction) I25.2 Hyperlipidemia E78.5 Hereditary hemolytic anemia, unspecified ([facility]) D58.9 Choledocholithiasis K80.50 Open wound of foot, right, subsequent encounter S91.301D History of kidney stones Z87.442 Acute on chronic diastolic CHF (congestive heart failure) ([facility]) I50.33 COPD, group B, by GOLD 2017 classification ([facility]) J44.9 Secondary esophageal varices without bleeding ([facility]) I85.10 Acquired hemolytic anemia ([facility]) D59.9 Pulmonary hypertension, unspecified (HCC) I27.20 Atrial fibrillation (HCC) I48.91 Morbid (severe) obesity due to excess calories ([facility]) E66.01 Stage 3 chronic kidney disease (HCC) N18.30 Review of Systems: Constitutional ROS: No change in weight and No fevers, sweats, or chills Skin/Integumentary ROS: Positive for circular lesion to left lower extremity Rest of ROS negative LMP 07/05/2003 PHYSICAL EXAM: General: alert, no distress, well nourished, well developed, comfortable, and cooperative Head: Normocephalic Eye Exam: PERRLA Heart: regular rate & rhythm Lungs: normal respiratory rate and rhythm Abdomen: abdomen soft and obese Extremities: non healing wound to LLE Skin: circular lesion to LLE LABS: Labs reviewed as indicated below:I have reviewed her labs and my personal interpretation is no leukocytosis WBC 7320 MICROBIOLOGY DATA: I have reviewed her cultures and my personal interpretation is no recent positive urine cultures IMAGING: I have reviewed her imaging and my personal interpretation is non healing wound to LLE ASSESSMENT:Patient with history of recurrent UTI's starting on oral fosfomycin once weekly by Dr Williamson .Patient has been on fosfomycin since 2021 with no further UTI's p/w for refills and evaluation of her LLE wound .The leg does not appear infected but the wound has lingered for a month an so will obtain an x- ray of her LLE .Fosfomycin refills discussed resistance possibility PLAN: Continue present medication(s): Patient education: recurrent UTIs Obtain X-ray of LLE Continue fosfomycin Follow up: in 6 month(s) Trish Mock MD Infectious Disease [address] [address] documented in this encounter Nursing Notes * Barbara Santos LPN - 01/27/2024 12:40 PM EDT Patient presents today for a follow up. She wanted to discuss refilling her fosfomycin. She also has a wound on her leg that she wants to have looked at. documented in this encounter Plan of Treatment Upcoming Encounters Date Type Department Care Team (Latest Contact Info) Description 02/09/20 1:00 PM EDT PulmDiagnostic Pulmonary Function Lab, [facility] [address] [facility] [place] [address] [place], [address] [facility] [place] [address] 02/15/20 24 1:00 PM EDT Imaging Radiology [facility] [address] [facility] [place] [address] 02/16/20 24 1:00 PM EDT [facility] [address] [facility] [address] Cinthya Weber, Community Health Oncology Patient Navigator [address] [place] [address] 02/17/20 24 10:30 AM EDT Office Visit Pulmonary Medicine, [place] [address] [place] [address] Raulito Cosme MD [address] [place] [address] 02/19/20 24 1:30 PM EDT Office Visit Cardiology, [facility] [address] [place] [address] Shilpi Bailey PA-C [address] [place] [address] 03/08/20 10:00 AM EDT [facility] [address] [place] [address] July Diaz RN [address] [place] [address] 03/30/20 24 12:10 PM EDT Office Visit [address] [address] Kat Hawthorne, DO [facility] [place] [address] 04/18/20 24 9:45 AM EDT Hospital Encounter [facility], [facility], [address] [place] [address] Fish Ahmadi MD [address] [place] [address] 04/18/20 24 9:45 AM EDT - 04/18/20 24 11:30 AM EDT Surgery [facility]O [facility], [facility], [address] [place] [address] Fish Ahmadi MD [address] [place] [address] ESOPHAGOGASTRODUODENOSCOPY (EGD), FLEXIBLE, TRANSORAL, ENDOSCOPIC ULTRASOUND 05/05/20 10:30 AM EDT Office Visit Orthopaedics, [facility] [address] [place] [address] Cholo Shah MD [address] [place] [address] 05/10/20 10:30 AM EDT Office Visit Gynecology/Oncol ogy, [facility] [address], [place] [id number] Jeanie Gunter PA-C [address] [place], [place] [id number] Pending Results Name Type Priority Associated Diagnoses Date /Time XR TIB/FIB 2 VIEWS Medical Imaging Routine Fall, initial encounter 01/27/2024 1:22 PM EDT Scheduled Procedures Name Priority Associated [...] COPD 03/10/2024 03/10/2023 CKD PHOS USE SMARTSET 17908 03/16/2024 0506/2023, 03/15/2023, 03/14/2023, Additional history exists GFR 06/08/2024 12/09/2023, 07/2023, 07/14/2023, Additional history exists CKD HGB USE SMARTSET 03496 12/09/202412/09, 12/09/2023, 09/17/2023, Additional history exists Mammogram [...] this encounter Medical Devices Implanted Type Area Miter Operator Device Identifier Shelf Expiration Date Model / Serial / Lot Cement Bone Simplex Hv & G - [id number] Implanted:Qty: 2 on 01/05/2023 by Harley Nguyen, at OR [facility] Left: Knee [employer] : [employer] 06/08/2024 6195-1-010 / / [id number] Component Femoral Size 5 - [id number] Implanted:Qty: 1 on 01/05/2023 by Harley Nguyen DO at OR [facility] Left: Knee [employer] : [employer] 08/09/2026 5510-F-501 / / [id number] Knee Tria Syetric X3 10x36 - [id number] Implanted:Qty: 1 on 01/05/2023 by Harley Nguyen DO at OR [facility] Left: Knee [employer] : [employer] 09/24/2027 5550-G-360 -E / / [id number] Baseplate Tib 5 Knee - [id number] Implanted:Qty: 1 on 01/05/2023 by Harley Nguyen DO at OR [facility] Left: Knee [employer] : [employer] 12/14/2027 5521-B-500 / / [id number] Knee X3 Ins Pos Cs Sz5 9 - [id number] Implanted:Qty: 1 on 01/05/2023 by Harley Nguyen DO at OR [facility] Left: Knee [employer] : [employer] 11/19/2027 5531-G-509 -E / / [id number] Cement Bone Full Mix Surg Simp - [id number] Implanted:Qty: 1 on 03/03/2023 by Cholo Shah MD at OR [facility] Right: Knee [employer] : OR[employer] 05/08/2025 6191-1-010 / / [id number] Knee Tib Comp Poly Krh 8 Lg - [id number] Implanted:Qty: 1 on 03/03/2023 by Cholo Shah MD at OR [facility] Right: Knee [employer] : OR[employer] 07/19/2023 6485-2-308 / / [id number] Knee Hrhk Mod Rot Hng Bushing - [id number] Implanted:Qty: 1 on 03/03/2023 by Cholo Shah MD at OR [facility] Right: Knee [employer] : ORTH[employer] 01/09/2027 6481-2-110 / / [id number] Knee Hrhk Mod Rot Hng Bushing - [id number] Implanted:Qty: 1 on 03/03/2023 by Cholo Shah MD at OR [facility] Right: Knee [employer] : ORTH[employer] 11/21/2026 6481-2-110 / / [id number] Knee Stem Crv Mod Mrs 66m124 - [id number] Implanted:Qty: 1 on 03/03/2023 by Cholo Shah MD at OR [facility] Right: Knee [employer] : ORTH[employer] 10/02/2026 6485-3-715 / / [id number] Tib Mrh Cross Bear Long Xs/Xl - [id number] Implanted:Qty: 1 on 03/03/2023 by Cholo Shah MD at OR [facility] Right: Knee [employer] : OR[employer] 12/05/2025 6481-2-103 / / [id number] Knee Tib Bumper Rot Hng Nue - [id number] Implanted:Qty: 1 on 03/03/2023 by Cholo Shah MD at OR [facility] Right: Knee [employer] : ORTH[employer] 07/15/2027 6481-2-130 / / [id number] Distal Femoral Component Implanted:Qty: 1 on 03/03/2023 by Cholo Shah MD at OR [facility] Right: Knee [employer] : ORTH[employer] 08/23/2023 6495-2-040 / / [id number] Knee Axle Hrhk Rot Mod Hng - [id number] Implanted:Qty: 1 on 03/03/2023 by Cholo Shah MD at OR [facility] Right: Knee [employer] : ORTH[employer] 06/30/2027 6481-2-120 / / [id number] Restrictors Med Cmnt T675-2693 - [id number] Implanted:Qty: 1 on 03/03/2023 by Cholo Shah MD at OR [facility] Right: Knee [employer] : ORTH[employer] 11/18/2027 U353-6930 / / Cement Bone Full Mix Surg Simp - [id number] Implanted:Qty: 1 on 03/03/2023 by Cholo Shah MD at OR [facility] Right: Knee [employer] : ORTH[employer] 07/09/2025 6191-1-010 / / [id number] Cement Bone Full Mix Surg Simp - [id number] Implanted:Qty: 1 on 03/03/2023 by Cholo Shah MD at OR [facility] Right: Knee [employer] : ORTH[employer] 06/08/2025 6191-1-010 / / [id number] Cement Bone Full Mix Surg Simp - [id number] Implanted:Qty: 1 on 03/03/2023 by Cholo Shah MD at OR [facility] Right: Knee [employer] : ORTH[employer] 05/08/2025 6191-1-010 / / [id number] Knee Fem Gmrs Dis Std R - [id number] Implanted:Qty: 1 on 03/10/2023 by Cholo Shah MD at OR [facility] Right: Knee [employer] : ORTH[employer] 10/21/2027 6495-2-040 / / [id number] Knee Hrhk Mod Rot Hng Bushing - [id number] Implanted:Qty: 1 on 03/10/2023 by Cholo Shah MD at OR [facility] Right: Knee [employer] : ORTHOPA[employer] 01/29/2027 6481-2-110 / / [id number] Knee Axle Hrhk Rot Mod Hng - [id number] Implanted:Qty: 1 on 03/10/2023 by Cholo Shah MD at OR [facility] Right: Knee [employer] : ORTHOPA[employer] 09/15/2027 6481-2-120 / / [id number] Tib Mrh Cross Bear Long Xs/Xl - [id number] Implanted:Qty: 1 on 03/10/2023 by Cholo Shah MD at OR [facility] Right: Knee [employer] : ORTHOPAEDICS 09/30/2027 6481-2-103 / / [id number] Knee Hrhk Mod Rot Hng Bushing - [id number] Implanted:Qty: 1 on 03/10/2023 by Cholo Shah MD at OR [facility] Right: Knee [employer] : ORTHOPAEDICS 04/24/2027 6481-2-110 / / [id number] Knee Tib Bumper Rot Hng Nue - [id number] Implanted:Qty: 1 on 03/10/2023 by Cholo Shah MD at OR [facility] Right: Knee [employer] : ORTHOPAED[employer] 10/15/2027 6481-2-130 / / [id number] documented as of this encounter Visit Diagnoses Diagnosis Fall, initial encounter- Primary Recurrent UTI Urinary tract infection, site not specified Choledocholithiasis Calculus of bile duct without mention of cholecystitis or obstruction documented in this encounter Advance Directives Documents on File Type Date Recorded 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 Care Teams Ethologist Relationship Specialty Start Date End Date Kat Hawthorne DO [address] [place] [address] PCP - General Family Medicine 08/20/22 documented as of this encounter
--- OUTSIDE RECORDS SUMMARY | 2024-04-16 12:37 | External Medical Summary | Summary of Care ---
Author Name Unknown Organization [facility] Address [address] [place] [facility] [place] [address] Phone [phone] Care Team Providers Care International Operations Manager Name Role Phone Kat Hawthorne DO Primary Care Provider [phone] Reason for Visit * Reason Comments [facility]: Maintenance Encounter Details Date Type Department Care Team ([facility] st Contact Info) Description 01/26/2024 10:00 AM EDT Home Visit [facility], [facility] [address] [place] [address] July Diaz, RN [address] [place] [address] Allergies Active Allergy Reactions Criticality Noted Date [...] as of this encounter (statuses as of 01/26/2024) Medications Medication Sig Dispensed Refills Start Date [...] mouth in the morning. 0 Active Nystatin 703255 UNIT/GM External Powder (Nystop) Apply topically to [...] a day. 28 g 1 10/19/2023 Active Cyclobenzaprine HCl 5 MG Oral Tablet (Flexeril)Indication s:Generalized osteoarthritis Take 1 tablet by mouth twice daily as needed for muscle spasm 60 Tablet 2 10/19/2023 Active predniSONE 20 MG Oral Tablet [...] FOR ITCHING 30 Tablet 3 11/27/2023 Active LORazepam 0.5 MG Oral Tablet (Ativan)Indications: BILLY (generalized anxiety disorder) Take 1 Tablet by mouth every 8 hours as needed for Anxiety. 60 Tablet 0 12/28/2023 Active Fosfomycin Tromethamine 3 GM Oral Packet (Monurol)Indications :Recurrent UTI Take 3 g by mouth once a week. 4 Packet 1 01/08/2024 Active documented as of this encounter (statuses as of 01/26/2024) Active Problems Problem Noted Date Diagnosed Date [...] 100 mg BID x 14 days Old ID (myocardial infarction) 04/14/2023 Hyperlipidemia 04/14/2023 Hereditary hemolytic [...] as of this encounter (statuses as of 01/26/2024) Resolved Problems Problem Noted Date Diagnosed Date [...] as of this encounter (statuses as of 01/26/2024) Immunizations Name Administration Dates Next Due COVID-19 mRNA, LNP-s, No Pre serve, 2-Dose Series (Thinktwice) 08/23/2021,01/26/2021,01/05/2021 Pneumococcal Conjugate Vacc, 13 Valent (Prevnar) [...] Sign Reading Time Taken Comments Blood Pressure 126/62 01/26/2024 10:58 AM EDT Pulse 76 01/26/2024 10:58 AM EDT Temperature 35.8 C (96.4 F) 01/26/2024 1 0:58 AM EDT Respiratory Rate 18 01/26/2024 10:5 8 AM EDT Oxygen Saturation 95% 01/26/2024 10: 58 AM EDT o2 on at 5 l/min via nc Inhaled Oxygen Concentration - - Weight 105.7 kg (233 lb) 01/26/2024 10: 58 AM EDT Height - - Body Mass Index 36.49 11/18/2023 1:49 PM EST documented in this encounter Functional Status Functional [...] Progress Notes * July Diaz RN - 01/26/2024 10:38 AM EDT Images from the original note were not included. [facility] Flight Test Data Acquisition Technician Visit Date: 01/26/2024 Time: 10:38 AM Name: Orin Bah : 1955 Current Concerns: Pt seen for return RNCM visit She states over the weekend she was feeling more fatigued, low energy, but it is feeling better today States she was able to do more this morning Reports breathing has been at baseline Wearing oxygen at 5 l/min via nc States when she goes for long rides in the car she wears it at 4 l/min via nc - keeps it at 5 for activity - sometimes goes up to 6 with showering Pt still has hematoma on LLE - it is open and had large clot covering the wound base It does have some bleeding She is applying aquacel ag and bandage Discussed HH referral and possible wound clinic for debridement and she she refuses at this time. States it has been getting smaller and she has no issues doing wound care. There are no s/s of infection She would like to continue to do what she is doing and if needs more help will call in to [facility] Physical Exam: BP 126/62 | Pulse 76 | Temp 35.8 C (96.4 F) | Resp 18 | Wt 105.7 kg (233 lb) | LMP 07/05/2003 |SpO2 95% Comment: o2 on at 5 l/min via nc | BMI 36.49 kg/m | BSA 2.24 m Pain 0 Physical Exam Constitutional: General: She is not in acute distress. Cardiovascular: Rate and Rhythm: Normal rate and regular rhythm. Pulses: Normal pulses. Heart sounds: Normal heart sounds. Pulmonary: Effort: Pulmonary effort is normal. Breath sounds: Normal breath sounds. Abdominal: Palpations: Abdomen is soft. Musculoskeletal: Left lower leg: Edema (+1) present. Skin: General: Skin is warm and dry. Neurological: Mental Status: She is alert and oriented to person, place, and time. Problems/Symptoms: Review of Systems Constitutional: Negative. HENT: Negative. Respiratory: Positive for shortness of breath (VINSON - at basesline). Cardiovascular: Positive for leg swelling. Gastrointestinal: Negative. Genitourinary: Negative. Musculoskeletal: Positive for arthralgias. Skin: Positive for wound (LLE). Neurological: Negative. Psychiatric/Behavioral: Negative. Medication Reconciliation: (See medication list) Does patient take medications as ordered: Yes Patient Well Being: PHQ2/9: No questionnaires available. No change in living situation Denies falls [facility] Completed this Visit: No. Routine visit and No falls since last visit Advanced Care Planning: Living Will. and Healthcare POA. Reinforcement/Education: Educated on home safety: Create a fall [...] exercises that will be right for you. COPD: Pt instructed to: -Call with increased [...] if at night -increased fatigue or vertigo Reinforced safety education and fall prevention. and [...] Proventil inhaler prn Nebulizer prn Wound care [facility] and cover with dsd daily after cleansing with wound wash - pt does not want HH or wound clinic at this time Home Interventions Provided: Home Intervention: Wound Care and Other; eval Reinforced current Plan of Care, including self-management and medication regimen Patient's 'Red Flags': Increased SOB Pulse ox consistently less than 90 with o2 on Redness, foul drainage, increased pain/edema of wound Patient Needs to Remember: Call [facility] at with any new or worsening health concerns or problems, red flag symptoms. Referrals Needed: Other none Follow Up: Is there cellular connectivity/connectivity in the home? Yes Does the patient have internet in the home? No Patient encouraged to call the intake phone number for all urgent but not emergent issues. Is the patient new to [facility] within the last 30 days? No, Assess appropriateness for upcoming telehealth visits. Cancel telehealth visits & schedule home visit with care horses or mules teamster(s)as indicated. Provider is in agreement with Plan of Care: Yes Scheduled to follow up with patient in 3 weeks with PRUDENCE, 3 weeks after with RNCM . July Diaz RN 01/26/2024 10:38 AM documented in this encounter Plan of Treatment Upcoming Encounters Date Type Department Care Team (Latest Contact Info) Description 01/27/20 12:40 PM EDT Office Visit Infectious Disease [facility] [address] [place] [address] Trish Mock MD [address] [place] [address] 02/09/20 1:00 PM EDT PulmDiagnostic Pulmonary Function Lab, [facility] [address] [address] [place] [address] [place], [address] [address] [facility] [address] 02/15/20 1:00 PM EDT Imaging Radiology [address] [facility] [place] [address] 02/16/20 1:00 PM EDT Home Visit Care Coordination and Integration [address] [place] [address] Cinthya [facility] [address] [place] [address] 02/17/20 10:30 AM EDT Office Visit Pulmonary Medicine, [place] [address] [facility] [place] [address] Raulito Cosme MD [address] [place] [address] 02/19/20 1:30 PM EDT Office Visit Cardiology, [facility] [address] [facility] [place] [address] Shilpi Bailey PA-C [address] [place] [address] 03/08/20 10:00 AM EDT Home Visit [facility] [place], [facility] [address] [place] [address] July Diaz RN [address] [facility] [place] [address] 03/30/20 12:10 PM EDT Office Visit [place] [address] [place] [address] Kat Hawthorne [address] [place] [address] 04/18/20 9:45 AM EDT Hospital Encounter ENDO [facility], Endoscopy Suite, HFAM [address], [address] [place] [address] Fish Ahmadi MD [address] [place] [address] 04/18/20 9:45 AM EDT - 04/18/20 11:30 AM EDT Surgery ENDO [facility], Endoscopy Suite, [address], [address] [place] [address] Fish Ahmadi MD [address] [place], [place] [id number] ESOPHAGOGASTRODUODENOSCOPY (EGD), FLEXIBLE, TRANSORAL, ENDOSCOPIC ULTRASOUND 05/05/20 10:30 AM EDT Office Visit [facility] [address] [place] [address] Cholo Shah MD [address] [place] [address] 05/10/20 10:30 AM EDT Office Visit Gynecology/Oncol [facility] [address] [place] [address] Jeanie Gunter PA-C [address] [place] [address] Scheduled Procedures Name Priority Associated Diagnoses Date/Ti [...] COPD 03/10/2024 03/10/2023 CKD PHOS USE SMARTSET 18683 03/16/2024 050 06/2023, 03/15/2023, 03/14/2023, Additional history exists GFR 06/08/2024 12/09/2023, 07/2023, 07/14/2023, Additional history exists CKD HGB USE SMARTSET 25917 12/09/202412/09, 12/09/2023, 09/17/2023, Additional history exists Mammogram [...] this encounter Medical Devices Implanted Type Area Digital Content Producer Device Identifier Shelf Expiration Date Model / Serial / Lot Cement Bone Simplex Hv & G - [id number] Implanted:Qty: 2 on 01/05/2023 by Harley Nguyen DO at OR [facility] Left: Knee [employer] : [employer] 06/08/2024 6195-1-010 / / [id number] Femoral Size 5 - [id number] Implanted:Qty: 1 on 01/05/2023 by Harley Nguyen DO at OR [facility] Left: Knee [employer] : [employer] 08/09/2026 5510-F-501 / / [id number] Knee Tria Syetric X3 10x36 - [id number] Implanted:Qty: 1 on 01/05/2023 by Harley Nguyen DO at OR [facility] Left: Knee [employer] : [employer] 09/24/2027 5550-G-360 -E / / [id number] Baseplate Tib 5 Knee - [id number] Implanted:Qty: 1 on 01/05/2023 by Harley Nguyen DO at OR [facility] Left: Knee [employer] : [employer] 12/14/2027 5521-B-500 / / [id number] Knee X3 Ins Pos Cs Sz5 9 - [id number] Implanted:Qty: 1 on 01/05/2023 by Harley Nguyen DO at OR [facility] Left: Knee [employer] : [employer] 11/19/2027 5531-G-509 -E / / [id number] Cement Bone Full Mix Surg Simp - [id number] Implanted:Qty: 1 on 03/03/2023 by Cholo Shah MD at OR [facility] Right: Knee [employer] : [employer] 05/08/2025 6191-1-010 / / [id number] Knee Tib Comp Poly Krh 8 Lg - [id number] Implanted:Qty: 1 on 03/03/2023 by Cholo Shah MD at OR [facility] Right: Knee [employer] : [employer] 07/19/2023 6485-2-308 / / [id number] Knee Hrhk Mod Rot Hng Bushing - [id number] Implanted:Qty: 1 on 03/03/2023 by Cholo Shah MD at OR [facility] Right: Knee [employer] : [employer] 01/09/2027 6481-2-110 / / [id number] Knee Hrhk Mod Rot Hng Bushing - [id number] Implanted:Qty: 1 on 03/03/2023 by Cholo Shah MD at OR [facility] Right: Knee [employer] : [employer] 11/21/2026 6481-2-110 / / [id number] Knee Stem Crv Mod Mrs 60s873 - [id number] Implanted:Qty: 1 on 03/03/2023 by Cholo Shah MD at OR [facility] Right: Knee [employer] : [employer] 10/02/2026 6485-3-715 / / [id number] Tib Mrh Cross Bear Long Xs/Xl - [id number] Implanted:Qty: 1 on 03/03/2023 by Cholo Shah MD at OR [facility] Right: Knee [employer] : [employer] 12/05/2025 6481-2-103 / / [id number] Knee Tib Bumper Rot Hng Nue - [id number] Implanted:Qty: 1 on 03/03/2023 by Cholo Shah MD at OR [facility] Right: Knee [employer] : [employer] 07/15/2027 6481-2-130 / / [id number] Distal Femoral Component Implanted:Qty: 1 on 03/03/2023 by Cholo Shah MD at OR [facility] Right: Knee [employer] : [employer] 08/23/2023 6495-2-040 / / [id number] Knee Axle Hrhk Rot Mod Hng - [id number] Implanted:Qty: 1 on 03/03/2023 by Cholo Shah MD at OR [facility] Right: Knee [employer] : [employer] 06/30/2027 6481-2-120 / / [id number] Restrictors Med Cmnt Q822-1503 - [id number] Implanted:Qty: 1 on 03/03/2023 by Cholo Shah MD at OR [facility] Right: Knee [employer] : [employer] 11/18/2027 K422-7021 / / Cement Bone Full Mix Surg Simp - [id number] Implanted:Qty: 1 on 03/03/2023 by Cholo Shah MD at OR [facility] Right: Knee [employer] : [employer] 07/09/2025 6191-1-010 / / [id number] Cement Bone Full Mix Surg Simp - [id number] Implanted:Qty: 1 on 03/03/2023 by Cholo Shah MD at OR [facility] Right: Knee [employer] : [employer] 06/08/2025 6191-1-010 / / [id number] Cement Bone Full Mix Surg Simp - [id number] Implanted:Qty: 1 on 03/03/2023 by Cholo Shah MD at OR [facility] Right: Knee [employer] : [employer] 05/08/2025 6191-1-010 / / [id number] Knee Fem Gmrs Dis Std R - [id number] Implanted:Qty: 1 on 03/10/2023 by Cholo Shah MD at OR [facility] Right: Knee [employer] : [employer] 10/21/2027 6495-2-040 / / [id number] Knee Hrhk Mod Rot Hng Bushing - [id number] Implanted:Qty: 1 on 03/10/2023 by Cholo Shah MD at OR [facility] Right: Knee [employer] : [employer] 01/29/2027 6481-2-110 / / [id number] Knee Axle Hrhk Rot Mod Hng - [id number] Implanted:Qty: 1 on 03/10/2023 by Cholo Shah MD at OR [facility] Right: Knee [employer] : [employer] 09/15/2027 6481-2-120 / / [id number] Tib Mrh Cross Bear Long Xs/Xl - [id number] Implanted:Qty: 1 on 03/10/2023 by Cholo Shah MD at OR [facility] Right: Knee [employer] : [employer] 09/30/2027 6481-2-103 / / [id number] Knee Hrhk Mod Rot Hng Bushing - [id number] Implanted:Qty: 1 on 03/10/2023 by Cholo Shah MD at OR [facility] Right: Knee [employer] : [employer] 04/24/2027 6481-2-110 / / [id number] Knee Tib Bumper Rot Hng Nue - [id number] Implanted:Qty: 1 on 03/10/2023 by Cholo Shah MD at OR [facility] Right: Knee [employer] : [employer] 10/15/2027 6481-2-130 / / [id number] documented as of this encounter Advance Directives Documents on File Type Date Recorded Patient Review Specialist Expl 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 Care Teams International Operations Manager Relationship Specialty Start Date End Date Kat Hawthorne DO [address] [facility] [place] [id number] PCP - General Family Medicine 08/20/22 documented as of this encounter"
--- OUTSIDE RECORDS SUMMARY | 2024-04-16 12:37 | External Medical Summary | Summary of Care ---
Author Name Unknown Organization [facility] Address [address] [place] [address] Phone [phone] Care Team Providers Care Range Examiner Name Role Phone Kat Hawthorne DO Primary Care Provider [phone] Reason for Visit * Reason Onset Date Comments Test Results 02/01/2024 Encounter Details Date Type Department Care Team ([facility] st Contact Info) Description 02/01/2024 Telephone Infectious Disease, [place] [address], [place] [id number] Trish Mock MD [address] [place] [address] Test Results Allergies Active Allergy Reactions Criticality Noted Date [...] as of this encounter (statuses as of 02/01/2024) Medications Medication Sig Dispensed Refills Start Date [...] mouth in the morning. 0 Active Nystatin 223623 UNIT/GM External Powder (Nystop) Apply topically to [...] as of this encounter (statuses as of 02/01/2024) Active Problems Problem Noted Date Diagnosed Date [...] & Plan: S/P wound vac placement at [facility] On doxycycline 100 mg BID x 14 days Old [place] (myocardial infarction) 04/14/2023 Hyperlipidemia 04/14/2023 Hereditary hemolytic [...] as of this encounter (statuses as of 02/01/2024) Resolved Problems Problem Noted Date Diagnosed Date [...] as of this encounter (statuses as of 02/01/2024) Immunizations Name Administration Dates Next Due COVID-19 mRNA, LNP-s, No Pre serve, 2-Dose Series (Vaughn Burton) 08/23/2021,01/26/2021,01/05/2021 Pneumococcal Conjugate Vacc, 13 Valent (Prevnar) [...] encounter Miscellaneous Notes * Telephone Encounter - Trish Mock MD - 02/01/2024 4:27 PM EDT Called and LM regarding x-ray that was done at [facility] which did not reveal any bone involvement or fluid collection documented in this encounter Plan of Treatment Upcoming Encounters Date Type Department Care Team (Latest Contact Info) Description 02/09/20 1:00 PM EDT PulmDiagnostic Pulmonary Function Lab, [facility] [address] [facility] [place] [address] [address], [address] [facility] [place] [address] 02/15/20 1:00 PM EDT Imaging Radiology [facility]st [facility] [address] [facility] [place] [address] 02/16/20 24 1:00 PM EDT Home Visit Care Coordination and Integration [address] [place] [facility] [place] [address] Cinthya Weber, Community Health Farmworker [place] [address] [place] [address] 02/17/20 24 10:30 AM EDT Office Visit Pulmonary Medicine, [place] [address] [place] [address] Raulito Cosme MD [address] [place] [facility] [place] [address] 02/19/20 24 1:30 PM EDT Office Visit Cardiology, [facility] [address] [facility] [place] [address] Shilpi Bailey PA-C [address] [facility] [place] [address] 03/08/20 24 10:00 AM EDT [facility], [facility] [address] [facility] [place] [address] July Diaz RN [address] [place] [address] 03/30/20 24 12:10 PM EDT Office Visit [facility] [address] [place] [facility] [place] [id number] Kat Hawthorne DO [address] [place] [facility] [place] [address] 04/18/20 24 9:45 AM EDT Hospital Encounter [facility], Endoscopy Suite, HFAM 1, [address] [place] [address] Fish Ahmadi MD [address] [place] [address] 04/18/20 24 9:45 AM EDT - 04/18/20 24 11:30 AM EDT Surgery ENDO [facility], Endoscopy Suite, HFAM 1, [address], [place] [address] Fish Ahmadi MD [address] [place] [address] ESOPHAGOGASTRODUODENOSCOPY (EGD), FLEXIBLE, TRANSORAL, ENDOSCOPIC ULTRASOUND 05/05/20 24 10:30 AM EDT Office Visit Orthopaedics, [place] [address], [place] [id number] Cholo Shah MD [address] [place] [address] 05/10/20 24 10:30 AM EDT Office Visit Gynecology/Oncol ogy, [place] [address] [place] [address] Jeanie Gunter PA-C [address] [place] [address] Scheduled Procedures Name Priority Associated Diagnoses Date/Ti [...] COPD 03/10/2024 03/10/2023 CKD PHOS USE SMARTSET 92674 03/16/2024 0506/2023, 03/15/2023, 03/14/2023, Additional history exists GFR 06/08/2024 12/09/2023, 07/2023, 07/14/2023, Additional history exists CKD HGB USE SMARTSET 42066 12/09/202412/09, 12/09/2023, 09/17/2023, Additional history exists Mammogram [...] this encounter Medical Devices Implanted Type Area Vp Director Of Creative Strategy Device Identifier Shelf Expiration Date Model / Serial / Lot Cement Bone Simplex Hv & G - [id number] Implanted:Qty: 2 on 01/05/2023 by Harley Nguyen, DO at OR [facility] Left: Knee ROSALIA : ORTHOPAEDICS 06/08/2024 6195-1-010 / / [id number] Component Femoral Size 5 - [id number] Implanted:Qty: 1 on 01/05/2023 by Harley Nguyen DO at OR [facility] Left: Knee ROSALIA : ORTHOPAEDICS 08/09/2026 5510-F-501 / / [id number] Knee Tria Syetric X3 10x36 - [id number] Implanted:Qty: 1 on 01/05/2023 by Harley Nguyen DO at OR [facility] Left: Knee ROSALIA : ORTHOPAEDICS 09/24/2027 5550-G-360 -E / / [id number] Baseplate Tib 5 Knee - [id number] Implanted:Qty: 1 on 01/05/2023 by Harley Nguyen DO at OR [facility] Left: Knee ROSALIA : ORTHOPAEDICS 12/14/2027 5521-B-500 / / [id number] Knee X3 Ins Pos Cs Sz5 9 - [id number] Implanted:Qty: 1 on 01/05/2023 by Harley Nguyen DO at OR [facility] Left: Knee ROSALIA : ORTHOPAEDICS 11/19/2027 5531-G-509 -E / / [id number] Cement Bone Full Mix Surg Simp - [id number] Implanted:Qty: 1 on 03/03/2023 by Cholo Shah MD at [place] [facility] Right: Knee ROSALIA : ORTHOPAEDICS 05/08/2025 6191-1-010 / / [id number] Knee Tib Comp Poly Krh 8 Lg - [id number] Implanted:Qty: 1 on 03/03/2023 by Cholo Shah MD at [place] [facility] Right: Knee ROSALIA : ORTHOPAEDICS 07/19/2023 6485-2-308 / / [id number] Knee Hrhk Mod Rot Hng Bushing - [id number] Implanted:Qty: 1 on 03/03/2023 by Cholo Shah MD at [place] [facility] Right: Knee ROSALIA : ORTHOPAEDICS 01/09/2027 6481-2-110 / / [id number] Knee Hrhk Mod Rot Hng Bushing - [id number] Implanted:Qty: 1 on 03/03/2023 by Cholo Shah MD at [place] [facility] Right: Knee ROSALIA : ORTHOPAEDICS 11/21/2026 6481-2-110 / / [id number] Knee Stem Crv Mod Mrs 72j501 - [id number] Implanted:Qty: 1 on 03/03/2023 by Cholo Shah MD at [place] [facility] Right: Knee ROSALIA : ORTHOPAEDICS 10/02/2026 6485-3-715 / / [id number] Tib Mrh Cross Bear Long Xs/Xl - [id number] Implanted:Qty: 1 on 03/03/2023 by Cholo Shah MD at [place] [facility] Right: Knee ROSALIA : ORTHOPAEDICS 12/05/2025 6481-2-103 / / [id number] Knee Tib Bumper Rot Hng Nue - [id number] Implanted:Qty: 1 on 03/03/2023 by Cholo Shah MD at [place] [facility] Right: Knee ROSALIA : ORTHOPAEDICS 07/15/2027 6481-2-130 / / [id number] Distal Femoral Component Implanted:Qty: 1 on 03/03/2023 by Cholo hSah MD at [place] [facility] Right: Knee ROSALIA : ORTHOPAEDICS 08/23/2023 6495-2-040 / / [id number] Knee Axle Hrhk Rot Mod Hng - [id number] Implanted:Qty: 1 on 03/03/2023 by Cholo Shah MD at [place] [facility] Right: Knee ROSALIA : ORTHOPAEDICS 06/30/2027 6481-2-120 / / [id number] Restrictors Med Cmnt O411-1619 - [id number] Implanted:Qty: 1 on 03/03/2023 by Cholo Shah MD at [place] [facility] Right: Knee ROSALIA : ORTHOPAEDICS 11/18/2027 W969-3103 / / Cement Bone Full Mix Surg Simp - [id number] Implanted:Qty: 1 on 03/03/2023 by Cholo Shah MD at [place] [facility] Right: Knee ROSALIA : ORTHOPAEDICS 07/09/2025 6191-1-010 / / [id number] Cement Bone Full Mix Surg Simp - [id number] Implanted:Qty: 1 on 03/03/2023 by Cholo Shah MD at [place] [facility] Right: Knee ROSALIA : ORTHOPAEDICS 06/08/2025 6191-1-010 / / [id number] Cement Bone Full Mix Surg Simp - [id number] Implanted:Qty: 1 on 03/03/2023 by Cholo Shah MD at [place] [facility] Right: Knee ROSALIA : ORTHOPAEDICS 05/08/2025 6191-1-010 / / [id number] Knee Fem Gmrs Dis Std R - [id number] Implanted:Qty: 1 on 03/10/2023 by Cholo Shah MD at [place] [facility] Right: Knee ROSALIA : ORTHOPAEDICS 10/21/2027 6495-2-040 / / [id number] Knee Hrhk Mod Rot Hng Bushing - [id number] Implanted:Qty: 1 on 03/10/2023 by Cholo Shah MD at [place] [facility] Right: Knee ROSALIA : ORTHOPAEDICS 01/29/2027 6481-2-110 / / [id number] Knee Axle Hrhk Rot Mod Hng - [id number] Implanted:Qty: 1 on 03/10/2023 by Cholo Shah MD at [place] [facility] Right: Knee ROSALIA : ORTHOPAEDICS 09/15/2027 6481-2-120 / / [id number] Tib Mrh Cross Bear Long Xs/Xl - [id number] Implanted:Qty: 1 on 03/10/2023 by Cholo Shah MD at [place] [facility] Right: Knee ROSALIA : ORTHOPAEDICS 09/30/2027 6481-2-103 / / [id number] Knee Hrhk Mod Rot Hng Bushing - [id number] Implanted:Qty: 1 on 03/10/2023 by Cholo Shah MD at [place] [facility] Right: Knee ROSALIA : ORTHOPAEDICS 04/24/2027 6481-2-110 / / [id number] Knee Tib Bumper Rot Hng Nue - [id number] Implanted:Qty: 1 on 03/10/2023 by Cholo Shah MD at [place] [facility] Right: Knee ROSALIA : ORTHOPAEDICS 10/15/2027 6481-2-130 / / [id number] documented as of this encounter Advance Directives Documents on File Type Date Recorded Patient Oceanographer Geological Expl 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 Care Teams Range Examiner Relationship Specialty Start Date End Date Kat Hawthorne DO [address] [place] [facility] [place] [address] PCP - General Family Medicine 08/20/22 documented as of this encounter
--- OUTSIDE RECORDS SUMMARY | 2024-04-16 12:37 | External Medical Summary | Summary of Care ---
Author Name Unknown Organization [facility] Address [address] [place] [address] Phone [phone] Care Team Providers Care Charge Lpn Name Role Phone Antonia Hawthorne DO Primary Care Provider Reason for Visit * Reason Onset Date Comments Medication Refill 01/29/2024 Encounter Details Date Type Department Care Team (Late st Contact Info) Description 01/29/2024 Refill [facility] [address] [place] [address] Antonia Hawthorne DO [address] [place] [address] BILLY (generalized anxiety disorder) Allergies [...] Inhalation Aerosol SolutionIndication s:ILD (interstitial lung disease) ([facility] [...] mouth in the morning. 0 Active Nystatin 339935 UNIT/GM External Powder (Nystop) Apply topically to affected area 3 times a day. 60 g 5 05/29/2023 Active Sotalol HCl 80 MG Oral Tablet (Betapace) Take 1 Tablet by mouth in the morning and 1 Tablet before bedtime. 180 Tablet 3 06/08/2023 Active Ipratropium-Albute rol 0.5-2.5 (3) MG/3ML Inhalation [...] 10/13/2023 Active Hydrocortisone (Perianal) 2.5 % External CreamIndications:H [...] as instructed. 300 Tablet 0 10/23/2023 Active Sulfamethoxazole-T rimethoprim 800-160 MG Oral Tablet (Bactrim DS) Take 1 Tablet by mouth once a day on Thursday, Thursday, and Thursday only. until gone. 15 Tablet 3 10/23/2023 Active amLODIPine Besylate 5 MG Oral Tablet (Norvasc) Take 1 Tablet by mouth in the morning. 90 Tablet 1 11/20/2023 Active hydrOXYzine HCl 25 MG Oral TabletIndications: Pruritus TAKE 1 TABLET BY MOUTH AT BEDTIME NEEDED FOR ITCHING 30 Tablet 3 11/27/2023 Active Fosfomycin Tromethamine 3 GM Oral Packet (Monurol)Indicatio ns:Recurrent UTI Take 3 g by mouth once a week. 12 Packet 2 01/27/2024 10/05/20 24 Active LORazepam 0.5 MG Oral Tablet (Ativan)Indication s:BILLY (generalized anxiety disorder) Take 1 Tablet by mouth every 8 hours as needed for Anxiety. 60 Tablet 0 02/01/2024 Active LORazepam 0.5 MG Oral Tablet (Ativan)Indication s:BILLY (generalized anxiety disorder) Take 1 Tablet by mouth every 8 hours as needed for Anxiety. 60 Tablet 0 12/28/2023 01/29/20 24 Discontinu ed(Refill) documented as of [...] & Plan: S/P wound vac placement at [facility] On doxycycline 100 mg BID x 14 days Old [place] (myocardial infarction) 04/14/2023 Hyperlipidemia 04/14/2023 Hereditary hemolytic [...] mRNA, LNP-s, No Pre serve, 2-Dose Series ([place]) 08/23/2021,01/26/2021,01/05/2021 Pneumococcal Conjugate Vacc, 13 Valent (Prevnar) [...] Telephone Encounter - Antonia Hawthorne DO - 02/01/2024 1:44 PM EDTSigned Prescriptions: Disp Refills LORazepam 0.5 MG Oral Tablet (Ativan) 60 Tab*0 Sig: Take 1 Tablet by mouth every 8 hours as needed for Anxiety. Authorizing Provider: ANTONIA HAWTHORNE * Telephone Encounter - Bonnie Melgar [facility] - 01/30/2024 8:09 AM EDTPending Prescriptions: Disp Refills LORazepam 0.5 MG Oral Tablet (Ativan) 60 Tab*0 Sig: Take 1 Tablet by mouth every 8 hours as needed for Anxiety. * Telephone Encounter - Bonnie Melgar [facility] - 01/30/2024 8:08 AM EDT I have reviewed the patients controlled substance dispensing history in the Prescription Drug Monitoring Program in compliance with the [facility] regulations before prescribing a controlled substance. PDMP checked on 01/30/2024. Pending Prescriptions: Disp Refills LORazepam 0.5 MG Oral Tablet (Ativan) 60 Tab*0 Sig: Take 1 Tablet by mouth every 8 hours as needed for Anxiety. Last Visit: 10/19/2023 (in office), 12/04/2020 (telemedicine) Next Visit: 03/30/2024 Date medication was last filled: 12/31/23 Date medication is due for refill: 01/19/24 Pharmacy: [facility] [address] [place] [address] Lalo CHRISTIANSON Is this request for a controlled substance? Yes and Urine Drug Screen was completed Toxicology results: Results for orders placed [...] Review. Please approve if appropriate. Thank You, Bonnie Melgar [facility] Clinical Pharmacist [facility] ([facility]) (formerly Telepharmacy) [phone] 01/30/2024, 8:08 AM * Telephone Encounter - Bailey San CPhT - 01/29/2024 10:24 AM EDT Did you pend patient's preferred pharmacy and medication before forwarding?yes Pharmacy: [facility] [address] [place] [address] Lalo CHRISTIANSON Pending Prescriptions: Disp Refills LORazepam 0.5 MG Oral Tablet (Ativan) 60 Tab*0 Sig: Take 1 Tablet by mouth every 8 hours as needed for Anxiety. Last Visit: 10/19/2023 (in office), 12/04/2020 (telemedicine) Next Visit: 03/30/2024 If no future appointments scheduled, and last appointment is greater than a year ago, please schedule patient for a follow-up appointment Last date the medication was ordered: 12/28/2023 Is this request for a controlled substance?Yes, What was the last refill date 12/28/2023 w/ [id number] and dosage 0.5mg and Urine Drug Screen Not completed Urine [...] 1:00 PM EDT PulmDiagnostic Pulmonary Function Lab, [facility] [address] [facility] [place] [address] [address], [address] [place] [address] 02/15/20 1:00 PM EDT Imaging Radiology [facility]st [facility] [address] [place] [address] 02/16/20 1:00 PM EDT Home Visit Care Coordination and Integration [address] [place] [address] Cinthya Weber, Community Health Traffic Lieutenant [address] [place] [address] 02/17/20 10:30 AM EDT Office Visit Pulmonary Medicine, [place] [address] [facility] [place] [address] Raulito Cosme MD [address] [place] [address] 02/19/20 1:30 PM EDT Office Visit Cardiology, [facility] [address] [facility] [place] [address] Shilpi Bailey, BOBBYC [address] [facility] [place] [address] 03/08/20 24 10:00 AM EDT [facility], [facility] [address] [place] [address] July Diaz, RN [address] [facility] [address] 03/30/20 24 12:10 PM EDT Office Visit [facility] [address] [place] [address] Antonia Hawthorne DO [address] [place] [address] 04/18/20 24 9:45 AM EDT Hospital Encounter [facility], Endoscopy Suite, HFAM 1, [address] [place] [address] Fish Ahmadi MD [address] [place] [address] 04/18/20 24 9:45 AM EDT - 04/18/20 24 11:30 AM EDT Surgery ENDO [facility], Endoscopy Suite, HFAM 1, [address] [facility], [place] [address] Fish Ahmadi MD [address] [place] [address] ESOPHAGOGASTRODUODENOSCOPY (EGD), FLEXIBLE, TRANSORAL, ENDOSCOPIC ULTRASOUND 05/05/20 24 10:30 AM EDT Office Visit Orthopaedics, [place] [address] [place] [facility] [place] [address] Cholo Shah MD [address] [facility], [place] [address] 05/10/20 24 10:30 AM EDT Office Visit Gynecology/Oncol ogy, [place] [address] [place] [facility] [place] [address] Jeanie Gunter PA-C [address] [facility], [place] [address] Scheduled Procedures Name Priority Associated Diagnoses Date/Ti [...] COPD 03/10/2024 03/10/2023 CKD PHOS USE SMARTSET 91757 03/16/2024 0506/2023, 03/15/2023, 03/14/2023, Additional history exists GFR 06/08/2024 12/09/2023, 07/2023, 07/14/2023, Additional history exists CKD HGB USE SMARTSET 09333 12/09/202412/09, 12/09/2023, 09/17/2023, Additional history exists Mammogram [...] this encounter Medical Devices Implanted Type Area Power Shovel Mechanic Device Identifier Shelf Expiration Date Model / Serial / Lot Cement Bone Simplex Hv & G - [id number] Implanted:Qty: 2 on 01/05/2023 by Harley Nguyen DO at OR [facility] Left: Knee ROSALIA : ORTHOPAEDICS 06/08/2024 6195-1-010 / / [id number] Component Femoral Size 5 - [id number] Implanted:Qty: 1 on 01/05/2023 by Harley Nguyen DO at OR [facility] Left: Knee ROSALIA : ORTHOPAEDICS 08/09/2026 5510-F-501 / / [id number] Knee Tria Syetric X3 10x36 - [id number] Implanted:Qty: 1 on 01/05/2023 by Harley Nguyen DO at OR [facility] Left: Knee ROSALIA : ORTHOPAEDICS 09/24/2027 5550-G-360 -E / / [id number] Baseplate Tib 5 Knee - [id number] Implanted:Qty: 1 on 01/05/2023 by Harley Nguyen DO at OR [facility] Left: Knee ROSALIA : ORTHOPAEDICS 12/14/2027 5521-B-500 / / [id number] Knee X3 Ins Pos Cs Sz5 9 - [id number] Implanted:Qty: 1 on 01/05/2023 by Harley Nguyen DO at OR [facility] Left: Knee ROSALIA : ORTHOPAEDICS 11/19/2027 5531-G-509 -E / / [id number] Cement Bone Full Mix Surg Simp - [id number] Implanted:Qty: 1 on 03/03/2023 by Cholo Shah MD at [place] [facility] Right: Knee ROSALIA : ORTHOPAEDICS 05/08/2025 6191-1-010 / / [id number] Knee Tib Comp Poly Krh 8 Lg - [id number] Implanted:Qty: 1 on 03/03/2023 by Cholo Shah MD at [place] [facility] Right: Knee ROSALIA : ORTHOPAEDICS 07/19/2023 6485-2-308 / / [id number] Knee Hrhk Mod Rot Hng Bushing - [id number] Implanted:Qty: 1 on 03/03/2023 by Cholo Shah MD at [place] [facility] Right: Knee ROSALIA : ORTHOPAEDICS 01/09/2027 6481-2-110 / / [id number] Knee Hrhk Mod Rot Hng Bushing - [id number] Implanted:Qty: 1 on 03/03/2023 by Cholo Shah MD at [place] [facility] Right: Knee ROSALIA : ORTHOPAEDICS 11/21/2026 6481-2-110 / / [id number] Knee Stem Crv Mod Mrs 71f821 - [id number] Implanted:Qty: 1 on 03/03/2023 by Cholo Shah MD at [place] [facility] Right: Knee ROSALIA : ORTHOPAEDICS 10/02/2026 6485-3-715 / / [id number] Tib Mrh Cross Bear Long Xs/Xl - [id number] Implanted:Qty: 1 on 03/03/2023 by Cholo Shah MD at [place] [facility] Right: Knee ROSALIA : ORTHOPAEDICS 12/05/2025 6481-2-103 / / [id number] Knee Tib Bumper Rot Hng Nue - [id number] Implanted:Qty: 1 on 03/03/2023 by Cholo Shah MD at [place] [facility] Right: Knee ROSALIA : ORTHOPAEDICS 07/15/2027 6481-2-130 / / [id number] Distal Femoral Component Implanted:Qty: 1 on 03/03/2023 by Cholo Shah MD at [place] [facility] Right: Knee ROSALIA : ORTHOPAEDICS 08/23/2023 6495-2-040 / / [id number] Knee Axle Hrhk Rot Mod Hng - [id number] Implanted:Qty: 1 on 03/03/2023 by Cholo Shah MD at [place] [facility] Right: Knee ROSALIA : ORTHOPAEDICS 06/30/2027 6481-2-120 / / [id number] Restrictors Med Cmnt T678-1032 - [id number] Implanted:Qty: 1 on 03/03/2023 by Cholo Shah MD at [place] [facility] Right: Knee ROSALIA : ORTHOPAEDICS 11/18/2027 U211-6053 / / Cement Bone Full Mix Surg Simp - [id number] Implanted:Qty: 1 on 03/03/2023 by Cholo Shah MD at [place] [facility] Right: Knee ROSALIA : ORTHOPAEDICS 07/09/2025 6191-1-010 / / [id number] Cement Bone Full Mix Surg Simp - [id number] Implanted:Qty: 1 on 03/03/2023 by Cholo Shah MD at [place] [facility] Right: Knee ROSALIA : ORTHOPAEDICS 06/08/2025 6191-1-010 / / [id number] Cement Bone Full Mix Surg Simp - [id number] Implanted:Qty: 1 on 03/03/2023 by Cholo Shah MD at [place] [facility] Right: Knee RSOALIA : ORTHOPAEDICS 05/08/2025 6191-1-010 / / [id number] Knee Fem Gmrs Dis Std R - [id number] Implanted:Qty: 1 on 03/10/2023 by Cholo Shah MD at [place] [facility] Right: Knee ROSALIA : ORTHOPAEDICS 10/21/2027 6495-2-040 / / [id number] Knee Hrhk Mod Rot Hng Bushing - [id number] Implanted:Qty: 1 on 03/10/2023 by Cholo Shah MD at [place] [facility] Right: Knee ROSALIA : ORTHOPAEDICS 01/29/2027 6481-2-110 / / [id number] Knee Axle Hrhk Rot Mod Hng - [id number] Implanted:Qty: 1 on 03/10/2023 by Cholo Shah MD at [place] [facility] Right: Knee ROSALIA : ORTHOPAEDICS 09/15/2027 6481-2-120 / / [id number] Tib Mrh Cross Bear Long Xs/Xl - [id number] Implanted:Qty: 1 on 03/10/2023 by Cholo Shah MD at [place] [facility] Right: Knee ROSALIA : ORTHOPAEDICS 09/30/2027 6481-2-103 / / [id number] Knee Hrhk Mod Rot Hng Bushing - [id number] Implanted:Qty: 1 on 03/10/2023 by Cholo Shah MD at [place] [facility] Right: Knee ROSALIA : ORTHOPAEDICS 04/24/2027 6481-2-110 / / [id number] Knee Tib Bumper Rot Hng Nue - [id number] Implanted:Qty: 1 on 03/10/2023 by Cholo Shah MD at [place] [facility] Right: Knee ROSALIA : ORTHOPAEDICS 10/15/2027 6481-2-130 / / [id number] documented as of this encounter Visit Diagnoses Diagnosis BILLY (generalized anxiety disorder) Generalized anxiety disorder Choledocholithiasis Calculus of bile duct without mention of cholecystitis or obstruction documented in this encounter Advance Directives Documents on File Type Date Recorded Patient Senior Accounting Analyst Expl 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 Care Teams Charge Lpn Relationship Specialty Start Date End Date Antonia Hawthorne DO [address] [place] [address] PCP - General Family Medicine 08/20/22 documented as of this encounter
--- OUTSIDE RECORDS SUMMARY | 2024-04-16 12:38 | External Medical Summary | Summary of Care ---
Author Name Unknown Organization [facility] Address [address] [place] [address] Phone [phone] Care Team Providers Care Material Requisitioner Name Role Phone Kat Hawthorne DO Primary Care Provider Reason for Visit * Reason Onset Date Comments Encounter Created in Error 01/15/2024 Encounter Details Date Type Department Care Team (Late st Contact Info) Description 01/15/2024 Telephone [facility] [address] [place] [address] Kat Hawthorne DO [address] [place] [address] Encounter Created in Error Allergies Active Allergy Reactions Criticality Noted Date [...] as of this encounter (statuses as of 01/15/2024) Medications Medication Sig Dispensed Refills Start Date [...] IN GASIndications:ILD (interstitial lung disease) ([facility]),Chronic respiratory failure with hypoxia (HCC) Use 2 LPM with exertion and 3 LPM with sleep. Needs small portable tanks, standing concentrator DME: [facility] 1 Each 0 07/02/2022 Active Proventil HFA 108 (90 Base) MCG/ACT Inhalation Aerosol SolutionIndications: ILD (interstitial lung disease) ([facility]) Inhale by mouth 2 Puffs every [...] mouth in the morning. 0 Active Nystatin 321113 UNIT/GM External Powder (Nystop) Apply topically to [...] as of this encounter (statuses as of 01/15/2024) Active Problems Problem Noted Date Diagnosed Date [...] & Plan: S/P wound vac placement at [facility] On doxycycline 100 mg [...] as of this encounter (statuses as of 01/15/2024) Resolved Problems Problem Noted Date Diagnosed Date [...] as of this encounter (statuses as of 01/15/2024) Immunizations Name Administration Dates Next Due COVID-19 mRNA, LNP-s, No Pre serve, 2-Dose Series ([employer]) 08/23/2021,01/26/2021,01/05/2021 Pneumococcal Conjugate Vacc, 13 Valent (Prevnar) [...] shopping? (15 years old or older) No 04/22/20 23 Cognitive Status Response Date of Assessm ent Because of a physical, menta l, or emotional condition, do you have serious difficulty concentrating, remembering, or making decisions? (5 years old or older) No 02/28/2023 documented as of this encounter Plan of Treatment Upcoming Encounters Date Type Department Care Team (Latest Contact Info) Description 4 1:00 PM EDT PulmDiagnostic Pulmonary Function Lab, [facility] [address] [facility] [place] [address] [address], [address] [facility] [place] [address] 4 1:00 PM EDT Imaging Radiology [facility] [address] [facility] [place] [address] 4 10:30 AM EDT Office Visit Pulmonary Medicine, [facility] [address] [place] [facility] [place] [address] Raulito Cosme MD [address] [place] [address] 4 1:30 PM EDT Office Visit Cardiology, [facility] [address] [facility] [place] [address] Shilpi Bailey PA-C [address] [place] [address] 4 12:10 PM EDT Office Visit [facility] [address] [place] [id number] Kat Hawthorne DO [address] [place] [address] 4 9:45 AM EDT Hospital Encounter [facility], [facility] [address], [address] [place] [address] Fish Ahmadi MD [address] [place] [address] 4 9:45 AM EDT - 4 11:30 AM EDT Surgery ENDO [facility] Endoscopy [address], [facility] [address], [address] [place], [place] [id number] Fish Ahmadi MD [address], [place] [id number] ESOPHAGOGASTRODUODENOSCOPY (EGD), FLEXIBLE, TRANSORAL, ENDOSCOPIC ULTRASOUND 4 10:30 AM EDT Office Visit Orthopaedics, [facility] [address] [place] [address] Cholo Shah MD [address] [place] [address] 4 10:30 AM EDT Office Visit Gynecology/Onco logy, [facility] [address] [place] [address] Jeanie Gunter PA-C [address], [place] [id number] Scheduled Procedures Name Priority Associated Diagnoses Date/Ti [...] COPD 03/10/2024 03/10/2023 CKD PHOS USE SMARTSET 05974 03/16/2024 050 06/2023, 03/15/2023, 03/14/2023, Additional history exists GFR 06/08/2024 12/09/2023, 07/2023, 07/14/2023, Additional history exists CKD HGB USE SMARTSET 99416 12/09/202412/09, 12/09/2023, 09/17/2023, Additional history exists Mammogram [...] this encounter Medical Devices Implanted Type Area Strategic Marketing Leader Device Identifier Shelf Expiration Date Model / Serial / Lot Cement Bone Simplex Hv & G - [id number] Implanted:Qty: 2 on 01/05/2023 by Harley Nguyen DO at OR [facility] Left: Knee [employer] : [employer] 06/08/2024 6195-1-010 / / [id number] Component Femoral Size 5 - [id number] Implanted:Qty: 1 on 01/05/2023 by Harley Nguyen DO at OR [facility] Left: Knee [employer] : [employer] 08/09/2026 5510-F-501 / / [id number] Knee Tria Syetric X3 10x36 - [id number] Implanted:Qty: 1 on 01/05/2023 by Harley Nguyen DO at OR [facility] Left: Knee [employer] : [employer] 09/24/2027 5550-G-360 -E / / [id number] Baseplate Tib 5 Knee - [id number] Implanted:Qty: 1 on 01/05/2023 by Harley Nguyen DO at OR [facility] Left: Knee [employer] : [employer] 12/14/2027 5521-B-500 / / [id number] Knee X3 Ins Pos Cs Sz5 9 - [id number] Implanted:Qty: 1 on 01/05/2023 by Harley Nguyen DO at OR [facility] Left: Knee [employer] : [employer] 11/19/2027 5531-G-509 -E / / [id number] Cement Bone Full Mix Surg Simp - [id number] Implanted:Qty: 1 on 03/03/2023 by Cholo Shah MD at [place] [facility] Right: Knee [employer] : [employer] 05/08/2025 6191-1-010 / / [id number] Knee Tib Comp Poly Krh 8 Lg - [id number] Implanted:Qty: 1 on 03/03/2023 by Cholo Shah MD at [place] [facility] Right: Knee [employer] : [employer] 07/19/2023 6485-2-308 / / [id number] Knee Hrhk Mod Rot Hng Bushing - [id number] Implanted:Qty: 1 on 03/03/2023 by Cholo Shah MD at [place] [facility] Right: Knee [employer] : [employer] 01/09/2027 6481-2-110 / / [id number] Knee Hrhk Mod Rot Hng Bushing - [id number] Implanted:Qty: 1 on 03/03/2023 by Cholo Shah MD at [place] [facility] Right: Knee [employer] : [employer] 11/21/2026 6481-2-110 / / [id number] Knee Stem Crv Mod Mrs 89p896 - [id number] Implanted:Qty: 1 on 03/03/2023 by Cholo Shah MD at [place] [facility] Right: Knee [employer] : [employer]TH[employer] 10/02/2026 6485-3-715 / / [id number] Tib Mrh Cross Bear Long Xs/Xl - [id number] Implanted:Qty: 1 on 03/03/2023 by Cholo Shah MD at [place] [facility] Right: Knee [employer] : ORTH[employer] 12/05/2025 6481-2-103 / / [id number] Knee Tib Bumper Rot Hng Nue - [id number] Implanted:Qty: 1 on 03/03/2023 by Cholo Shah MD at [place] [facility] Right: Knee [employer] : [employer]TH[employer] 07/15/2027 6481-2-130 / / [id number] Distal Femoral Component Implanted:Qty: 1 on 03/03/2023 by Cholo Shah MD at [place] [facility] Right: Knee [employer] : [employer]TH[employer] 08/23/2023 6495-2-040 / / [id number] Knee Axle Hrhk Rot Mod Hng - [id number] Implanted:Qty: 1 on 03/03/2023 by Cholo Shah MD at [place] [facility] Right: Knee [employer] : [employer]TH[employer] 06/30/2027 6481-2-120 / / [id number] Restrictors Med Cmnt Z077-6240 - [id number] Implanted:Qty: 1 on 03/03/2023 by Cholo Shah MD at [place] [facility] Right: Knee [employer] : [employer]TH[employer] 11/18/2027 X627-4806 / / Cement Bone Full Mix Surg Simp - [id number] Implanted:Qty: 1 on 03/03/2023 by Cholo Shah MD at [place] [facility] Right: Knee [employer] : [employer]TH[employer] 07/09/2025 6191-1-010 / / [id number] Cement Bone Full Mix Surg Simp - [id number] Implanted:Qty: 1 on 03/03/2023 by Cholo Shah MD at [place] [facility] Right: Knee [employer] : [employer]TH[employer] 06/08/2025 6191-1-010 / / [id number] Cement Bone Full Mix Surg Simp - [id number] Implanted:Qty: 1 on 03/03/2023 by Cholo Shah MD at [place] [facility] Right: Knee [employer] : [employer]TH[employer] 05/08/2025 6191-1-010 / / [id number] Knee Fem Gmrs Dis Std R - [id number] Implanted:Qty: 1 on 03/10/2023 by Cholo Shah MD at [place] [facility] Right: Knee [employer] : [employer] 10/21/2027 6495-2-040 / / [id number] Knee Hrhk Mod Rot Hng Bushing - [id number] Implanted:Qty: 1 on 03/10/2023 by Cholo Shah MD at [place] [facility] Right: Knee [employer]ASLIA : ORTHOPAEDICS 01/29/2027 6481-2-110 / / [id number] Knee Axle Hrhk Rot Mod Hng - [id number] Implanted:Qty: 1 on 03/10/2023 by Cholo Shah MD at [place] [facility] Right: Knee [employer] : [employer]TH[employer] 09/15/2027 6481-2-120 / / [id number] Tib Mrh Cross Bear Long Xs/Xl - [id number] Implanted:Qty: 1 on 03/10/2023 by Cholo Shah MD at [place] [facility] Right: Knee [employer] : [employer] 09/30/2027 6481-2-103 / / [id number] Knee Hrhk Mod Rot Hng Bushing - [id number] Implanted:Qty: 1 on 03/10/2023 by Cholo Shah MD at [place] [facility] Right: Knee [employer] : ORTH[employer] 04/24/2027 6481-2-110 / / [id number] Knee Tib Bumper Rot Hng Nue - [id number] Implanted:Qty: 1 on 03/10/2023 by Cohlo Shah MD at [place] [facility] Right: Knee [employer] : [employer]TH[employer] 10/15/2027 6481-2-130 / / [id number] documented as of this encounter Advance Directives Documents on File Type Date Recorded Patient Paint Grinder Expl 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 Care Teams Material Requisitioner Relationship Specialty Start Date End Date aKt Hawthorne DO [address] [place] [address] PCP - General Family Medicine 08/20/22 documented as of this encounter
--- OUTSIDE RECORDS SUMMARY | 2024-04-16 12:38 | External Medical Summary | Summary of Care ---
Author Name Unknown Organization [facility] Address [address] [place] [address] Phone [phone] Care Team Providers Care Director Information Security Name Role Phone Kat Hawthorne DO Primary Care Provider [phone] Reason for Visit * Reason Comments Follow Up Left knee Encounter Details Date Type Department Care Team (Late st Contact Info) Description 01/14/2024 11:00 AM EST Office Visit Orthopaedics [facility] [address] [place] [address] Harley Nguyen DO [address] [place] [address] S/P TKR (total knee replacement), left* Allergies Active Allergy Reactions Criticality Noted Date [...] as of this encounter (statuses as of 01/14/2024) Medications Medication Sig Dispensed Refills Start Date [...] mouth in the morning. 0 Active Nystatin 812729 UNIT/GM External Powder (Nystop) Apply topically to [...] as of this encounter (statuses as of 01/14/2024) Active Problems Problem Noted Date Diagnosed Date [...] as of this encounter (statuses as of 01/14/2024) Resolved Problems Problem Noted Date Diagnosed Date [...] as of this encounter (statuses as of 01/14/2024) Immunizations Name Administration Dates Next Due COVID-19 mRNA, LNP-s, No Pre serve, 2-Dose Series (CloudOn) 08/23/2021,01/26/2021,01/05/2021 Pneumococcal Conjugate Vacc, 13 Valent (Prevnar) [...] as of this encounter Progress Notes * Wendy Harley Lowry, DO - 01/14/2024 11:21 AM EST ORTHOPAEDIC SURGERY - Clinic Note SUBJECTIVE: Orin Bah is a 68 year old female. Chief Complaint Patient presents with Follow Up Left knee HPI: She presents today for 1 year follow-up after left knee replacement. She is doing well with respect to her knee. She is pleased with her pain relief. She has no concerns with respect to her leftknee. Of note she reported bumping her lower leg along the corner of her recliner. She reports developing a small hematoma. She does not report breaking the skin. Review of Systems: Constitutional ROS: No fevers, sweats, or chills Cardiovascular ROS: No chest pain Gastrointestinal ROS: No abdominal pain Musculoskeletal/Extremities ROS: No pain Neurologic ROS: No numbness or tingling Review of patient's allergies indicates: Allergen Reactions [...] the morning. (Patient not taking: Reported on 11/18/2023) Nystatin 935154 UNIT/GM External Powder (Nystop) Apply topically to [...] mouth once a week. 4 Packet 1 No current facility-administered medications for this [...] Z90.79 PAF (paroxysmal atrial fibrillation) ([facility]) I48.0 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) E66.2 Presence of cardiac pacemaker Z95.0 Chronic respiratory failure with hypoxia (HCC) J96.11 ILD (interstitial lung disease) ([facility]) J84.9 Pulmonary HTN (HCC) I27.20 History of ovarian cancer Z85.43 Hypertensive heart disease with heart failure (HCC) I11.0 Severe obesity with body mass index (BMI) of 35.0 to 39.9 with serious comorbidity (HCC) E66.01 Prediabetes R73.03 S/P total knee arthroplasty, left Z96.652 History of recent blood transfusion Z92.89 Old [place] (myocardial infarction) I25.2 Hyperlipidemia E78.5 Hereditary hemolytic anemia, unspecified (HCC) D58.9 Choledocholithiasis K80.50 Open wound of foot, right, subsequent encounter S91.301D History of kidney stones Z87.442 Acute on chronic diastolic CHF (congestive heart failure) ([facility]) I50.33 COPD, group B, by GOLD 2017 classification ([facility]) J44.9 Secondary esophageal varices without bleeding ([facility]) I85.10 Acquired hemolytic anemia ([facility]) D59.9 Pulmonary hypertension, unspecified ([facility]) I27.20 Atrial fibrillation ([facility]) I48.91 Morbid (severe) obesity due to excess calories ([facility]) E66.01 Stage 3 chronic kidney disease ([facility]) N18.30 Past Medical History: Diagnosis Date Acute blood loss anemia 03/04/2023 Anemia Anxiety Cancer ([facility]) ovarian Class 2 obesity in adult 04/23/2010 Per Obesity Protocol, #19 ICD-10 update of inactive term MORE SPECIFIED CODE LISTED ON PL Clostridium difficile infection Depressive disorder, not elsewhere classified Dysmenorrhea Esophageal reflux HTN, goal below 140/90 Hypertension with congestive heart failure and renal failure ([facility]) 04/14/2023 Hypertensive kidney disease with stage 3a chronic kidney disease ([facility]) 09/17/2020 Per CKD protocol Hyponatremia 03/09/2023 Kidney disease, chronic, stage III (GFR 30-59 ml/min) ([facility]) Kidney stone Lumbar stenosis Nephrolithiasis 12/29/2016 Nocturnal hypoxia 09/01/2019 OA (osteoarthritis) Obesity, morbid (more than 100 lbs over ideal weight or BMI > 40) ([facility]) 04/23/2010 Per Obesity Protocol, #19 ICD-10 update of inactive term BERRY (obstructive sleep apnea) PAF (paroxysmal atrial fibrillation) ([facility]) Recurrent UTI Sciatica SOB (shortness of breath) 09/10/2012 Past Surgical History: Procedure Laterality Date ARTHROPLASTY KNEE TOTAL Left 01/05/2023 ROBOTIC ARTHROPLASTY KNEE TOTAL performed by Harley Nguyen DO at OR [facility] ARTHROPLASTY KNEE TOTAL Right 03/03/2023 ARTHROPLASTY KNEE TOTAL performed by Cholo Shah MD at OR [facility] BONE DEBRIDEMENT, FIRST 20 CM2 Right 03/10/2023 DEBRIDEMENT SKIN SUBCUTANEOUS TISSUE MUSCLE AND BONE performed by Cholo Shah MD at OR [facility] COLONOSCOPY, DIAGNOSTIC (RECTUM) 09/25/2017 normal, repeat 10 yrs/[facility] CYSTOSCOPY Left 01/18/2016 stent removal EGD, FLEXIBLE, DIAGNOSTIC 09/25/2017 normal bx/[facility] EGD, FLEXIBLE, DIAGNOSTIC N/A 09/25/2022 small hiatal hernia/EGD/ME EGD, W/ENDOSCOPIC US N/A 01/20/2023 [facility], EGD/ EUS, reversed gastric bypass found , EUS - many stones found, fatty liver / no specimenscollected / ENDOSCOPY, ERCP, W/STONE REMOVAL N/A 01/20/2023 [facility], ERCP , Choledocholithiasis found & complete removal accomplished by biliary spihincterotomy, stent placed / no bx's / repeat ERCP 8 weeks follow up / EXPLORATION OF ABDOMEN N/A 09/04/2020 EXPLORATORY LAPAROTOMY performed by Harjeet Li MD at OR [facility] GASTRIC REVISION FOR OBESITY 1980 Gastric Bypass reversed same yr IMPLANTABLE ACCESS SYST PERC 10/22/2020 INFORMATION Left 04/2021 L pacemaker insertion @ [facility]. INJECT DX/THER SUBSTANCE INTERLAMINAR LUMBAR/SACRAL W IMAGE GUIDE 09/19/2021 INJECTION SPINE LUMBAR OR SACRAL performed by Camron Pathak DO at OR [facility] KNEE ARTHROSCOPY, DIAGNOSTIC 1999 Knee Arthroscopy MISCELLANEOUS ORDER ([facility] ONLY) 1979 gastric stapling REMOVAL OF KIDNEY STONE x2 REMOVAL OF TONSILS, AGE 12+ at age 10 REPAIR INITIAL INCISIONAL OR VENTRAL HERNIA; REDUCIBLE N/A 04/27/2017 REPAIR OF VENTRAL HERNIA [facility] DR. WORRELL 04/27/17 REVISE KNEE JOINT REPLACEMENT Right 03/10/2023 TOTAL KNEE REVISION FEMUR AND TIBIA performed by Cholo Shah MD at OR [facility] TOTAL ABD HYSTERECTOMY W/WO REMOVAL OF TUBE(S) N/A 09/04/2020 TOTAL ABDOMINAL HYSTERECTOMY WITH OR WITHOUT TUBES AND OVARIES performed by Harjeet Li MD at OR [facility] Social History Tobacco Use Smoking status: Former Current packs/day: 0.00 Average packs/day: 0.3 packs/day for 5.0 years (1.3 ttl pk-yrs) Types: Cigarettes Start date: 09/10/2006 Quit date: 09/10/2011 Years since quittin.3 Passive exposure: Never Smokeless tobacco: Never Vaping Use Vaping Use: Never used Substance Use Topics Alcohol use: No Drug use: No Family history: Noncontributory OBJECTIVE: Diagnostic Testing: Updated x-rays of the left knee were obtained, viewed and interpreted in the office today demonstrating evidence of stable total knee prosthesis in anatomic alignment without evidence of hardware complication or prosthetic loosening. Vital Signs: LMP 07/05/2003 Physical Exam: Examination of the left knee reveals well-healed surgical scar without evidence complication. She exhibits full extension and flexion to about 110. She has full quad strength. Collateral stability intact. Sensation intact pulses palpable. She does have a small localize subcutaneous hematoma involving the anterolateral lower leg there is no evidence of erythema. Resolving ecchymosis noted. ASSESSMENT: S/P TKR (total knee replacement), left (Primary) - XR KNEE 3 VIEWS Follow Up: Return in about 2 years (around 01/13/2026). PLAN: She is doing well with respect to her left knee replacement 1 year ago. She will continue activities as tolerated. I will see her back in 2 years for re- evaluation with repeat x-rays left knee. All questions answered. This chart was completed in part utilizing [employer] Speech Voice Recognition Software. Grammatical errors, random word insertions, pronoun errors, and incomplete sentences are an occasional consequence of this system due to software limitations, ambient noise, and hardware issues. Any formal questions or concerns about the content, text, or information contained within the body of this dictation should be directly addressed to the provider for clarification. Harley Nguyen DO 01/14/2024 11:21 AM documented in this encounter Nursing Notes * Radha Escalona MED ASSIST - 01/14/2024 11:03 AM EST Pt presents today for left TKA, DOS 01/05/23. Pt states she has a bump on her leg, about 2 weeks ago she was about to fall and landed on the lever for the chair on her fontana. documented in this encounter Plan of Treatment Upcoming Encounters Date Type Department Care Team (Latest Contact Info) Description 4 1:00 PM EDT PulmDiagnostic Pulmonary Function Lab, [facility] [address] [facility] [place] [address] [address], [address] [facility] [place] [address] 4 1:00 PM EDT Imaging Radiology [facility] [address] [facility] [place] [address] 4 10:30 AM EDT Office Visit Pulmonary Medicine, [place] [address] [place] [address] Raulito Cosme MD [address] [place] [address] 4 1:30 PM EDT Office Visit Cardiology, [facility] [address] [facility] [place] [address] Shilpi Bailey, DEAN [address] [place] [address] 4 12:10 PM EDT Office Visit [place] [address] [place] [address] Kat Hawthorne, [facility] [place] [address] 4 9:45 AM EDT Hospital Encounter ENDO [facility], Endoscopy Suite, [facility] [address], [address] [place] [address] Fish Ahmadi MD [address] [place] [address] 4 9:45 AM EDT - 4 11:30 AM EDT Surgery ENDO [facility], Endoscopy Suite, [facility] [address], [address] [place] [address] Fish Ahmadi MD [address] [place] [address] ESOPHAGOGASTRODUODENOSCOPY (EGD), FLEXIBLE, TRANSORAL, ENDOSCOPIC ULTRASOUND 4 10:30 AM EDT Office Visit Orthopaedics, [place] [address] [place] [address] Cholo Shah MD [address] [place] [address] 4 10:30 AM EDT Office Visit Gynecology/Onco logy, [place] [address] [place] [address] Jeanie Gunter PA-C [address] [place], [place] [id number] Pending Results Name Type Priority Associated Diagnoses Date /Time XR KNEE 3 VIEWS Medical Imaging Routine S/P TKR (total knee replacement), left 01/14/2024 11:16 AM EST Scheduled Procedures Name Priority Associated Diagnoses Date/Ti nh ESOPHAGOGASTRODUODENOSCOPY ( EGD), FLEXIBLE, TRANSORAL, ENDOSCOPIC ULTRASOUND [...] COPD 03/10/2024 03/10/2023 CKD PHOS USE SMARTSET 37538 03/16/202406/2023, 03/15/2023, 03/14/2023, Additional history exists GFR 06/08/2024 12/09/2023, 07/2023, 07/14/2023, Additional history exists CKD HGB USE SMARTSET 32832 12/09/202412/09, 12/09/2023, 09/17/2023, Additional history exists Mammogram [...] this encounter Medical Devices Implanted Type Area Costume Shop Coordinator Device Identifier Shelf Expiration Date Model / Serial / Lot Cement Bone Simplex Hv & G - [id number] Implanted:Qty: 2 on 01/05/2023 by Harley Nguyen DO at OR [facility] Left: Knee [employer] : ORTHOPAEDICS 06/08/2024 6195-1-010 / / [id number] Component Femoral Size 5 - [id number] Implanted:Qty: 1 on 01/05/2023 by Harley Nguyen DO at OR [facility] Left: Knee [employer] : ORTHOPAEDICS 08/09/2026 5510-F-501 / / [id number] Knee Tria Syetric X3 10x36 - [id number] Implanted:Qty: 1 on 01/05/2023 by Harley Nguyen DO at OR [facility] Left: Knee [employer] : ORTHOPAEDICS 09/24/2027 5550-G-360 -E / / [id number] Baseplate Tib 5 Knee - [id number] Implanted:Qty: 1 on 01/05/2023 by Harley Nguyen DO at OR [facility] Left: Knee [employer] : ORTHOPAEDICS 12/14/2027 5521-B-500 / / [id number] Knee X3 Ins Pos Cs Sz5 9 - [id number] Implanted:Qty: 1 on 01/05/2023 by Harley Nguyen DO at OR [facility] Left: Knee [employer] : ORTHOPAEDICS 11/19/2027 5531-G-509 -E / / [id number] Cement Bone Full Mix Surg Simp - [id number] Implanted:Qty: 1 on 03/03/2023 by Cholo Shah MD at OR [facility] Right: Knee [employer] : ORTHOPAEDICS 05/08/2025 6191-1-010 / / [id number] Knee Tib Comp Poly Krh 8 Lg - [id number] Implanted:Qty: 1 on 03/03/2023 by Cholo Shah MD at OR [facility] Right: Knee [employer] : ORTHOPAEDICS 07/19/2023 6485-2-308 / / [id number] Knee Hrhk Mod Rot Hng Bushing - [id number] Implanted:Qty: 1 on 03/03/2023 by Cholo Shah MD at OR [facility] Right: Knee [employer] : ORTHOPAEDICS 01/09/2027 6481-2-110 / / [id number] Knee Hrhk Mod Rot Hng Bushing - [id number] Implanted:Qty: 1 on 03/03/2023 by Cholo Shah MD at OR [facility] Right: Knee [employer] : ORTHOPAEDICS 11/21/2026 6481-2-110 / / [id number] Knee Stem Crv Mod Mrs 09i171 - [id number] Implanted:Qty: 1 on 03/03/2023 by Cholo Shah MD at OR [facility] Right: Knee [employer] : ORTHOPAEDICS 10/02/2026 6485-3-715 / / [id number] Tib Mrh Cross Bear Long Xs/Xl - [id number] Implanted:Qty: 1 on 03/03/2023 by Cholo Shah MD at OR [facility] Right: Knee [employer] : ORTHOPAEDICS 12/05/2025 6481-2-103 / / [id number] Knee Tib Bumper Rot Hng Nue - [id number] Implanted:Qty: 1 on 03/03/2023 by Cholo Shah MD at OR [facility] Right: Knee [employer] : ORTHOPAEDICS 07/15/2027 6481-2-130 / / [id number] Distal Femoral Component Implanted:Qty: 1 on 03/03/2023 by Cholo Shah MD at OR [facility] Right: Knee [employer] : ORTHOPAEDICS 08/23/2023 6495-2-040 / / [id number] Knee Axle Hrhk Rot Mod Hng - [id number] Implanted:Qty: 1 on 03/03/2023 by Cholo Shah MD at OR [facility] Right: Knee [employer] : ORTHOPAEDICS 06/30/2027 6481-2-120 / / [id number] Restrictors Med Cmnt G857-6425 - [id number] Implanted:Qty: 1 on 03/03/2023 by Cholo Shah MD at OR [facility] Right: Knee [employer] : ORTHOPAEDICS 11/18/2027 L963-6636 / / Cement Bone Full Mix Surg Simp - [id number] Implanted:Qty: 1 on 03/03/2023 by Cholo Shah MD at OR [facility] Right: Knee [employer] : ORTHOPAEDICS 07/09/2025 6191-1-010 / / [id number] Cement Bone Full Mix Surg Simp - [id number] Implanted:Qty: 1 on 03/03/2023 by Cholo Shah MD at OR [facility] Right: Knee [employer] : ORTHOPAEDICS 06/08/2025 6191-1-010 / / [id number] Cement Bone Full Mix Surg Simp - [id number] Implanted:Qty: 1 on 03/03/2023 by Cholo Shah MD at OR [facility] Right: Knee [employer] : ORTHOPAEDICS 05/08/2025 6191-1-010 / / [id number] Knee Fem Gmrs Dis Std R - [id number] Implanted:Qty: 1 on 03/10/2023 by Cholo Shah MD at OR [facility] Right: Knee [employer] : ORTHOPAEDICS 10/21/2027 6495-2-040 / / [id number] Knee Hrhk Mod Rot Hng Bushing - [id number] Implanted:Qty: 1 on 03/10/2023 by Cholo Shah MD at OR [facility] Right: Knee [employer] : ORTHOPAEDICS 01/29/2027 6481-2-110 / / [id number] Knee Axle Hrhk Rot Mod Hng - [id number] Implanted:Qty: 1 on 03/10/2023 by Cholo Shah MD at OR [facility] Right: Knee [employer] : ORTHOPAEDICS 09/15/2027 6481-2-120 / / [id number] Tib Mrh Cross Bear Long Xs/Xl - [id number] Implanted:Qty: 1 on 03/10/2023 by Cholo Shah MD at OR [facility] Right: Knee [employer] : ORTHOPAEDICS 09/30/2027 6481-2-103 / / [id number] Knee Hrhk Mod Rot Hng Bushing - [id number] Implanted:Qty: 1 on 03/10/2023 by Cholo Shah MD at OR [facility] Right: Knee [employer] : ORTHOPAEDICS 04/24/2027 6481-2-110 / / [id number] Knee Tib Bumper Rot Hng Nue - [id number] Implanted:Qty: 1 on 03/10/2023 by Cholo Shah MD at OR [facility] Right: Knee [employer] : ORTHOPAEDICS 10/15/2027 6481-2-130 / / [id number] documented as of this encounter Visit Diagnoses Diagnosis S/P TKR (total knee replacement), left- Primary Choledocholithiasis Calculus of bile duct without mention of cholecystitis or obstruction documented in this encounter Advance Directives Documents on File Type Date Recorded Patient 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 Care Teams Director Information Security Relationship Specialty Start Date End Date Kat Hawthorne DO [address] [place] [address] PCP - General Family Medicine 08/20/22 documented as of this encounter
--- OUTSIDE RECORDS SUMMARY | 2024-04-16 12:38 | External Medical Summary | Summary of Care ---
Author Name Unknown Organization [facility] Address [address] [place] [address] Phone [phone] Care Team Providers Care Slip Cover Operator Name Role Phone Kat Hawthorne DO Primary Care Provider [phone] Reason for Visit * Reason Onset Date Comments Med Request 01/07/2024 Encounter Details Date Type Department Care Team ([facility] st Contact Info) Description 01/07/2024 Telephone Infectious Disease, [place] [address], [place] [phone] Gordon Williamson MD [address], [place] [phone] Med Request Allergies Active Allergy Reactions Criticality Noted Date [...] as of this encounter (statuses as of 01/08/2024) Medications Medication Sig Dispensed Refills Start Date [...] Inhalation Aerosol SolutionIndications :ILD (interstitial lung disease) ([facility]) Inhale [...] mouth in the morning. 0 Active Nystatin 453545 UNIT/GM External Powder (Nystop) Apply topically to [...] once a week. 4 Packet 1 4 Active Fosfomycin Tromethamine 3 GM Oral Packet (Monurol)Indication s:Recurrent UTI Take 3 g by mouth once a week. 4 Packet 5 3 01/08/20 24 Discontinu ed(Refill) documented as of this encounter (statuses as of 01/08/2024) Active Problems Problem Noted Date Diagnosed Date [...] as of this encounter (statuses as of 01/08/2024) Resolved Problems Problem Noted Date Diagnosed Date [...] as of this encounter (statuses as of 01/08/2024) Immunizations Name Administration Dates Next Due COVID-19 mRNA, LNP-s, No Pre serve, 2-Dose Series ([employer]) 08/23/2021,01/26/2021,01/05/2021 Pneumococcal Conjugate Vacc, 13 Valent (Prevnar) [...] encounter Miscellaneous Notes * Telephone Encounter - Maureen Taveras OSA - 01/08/2024 1:42 PM EST Medication: fosfomycin Diagnosis: uti 30-Day Supply Date of Last Visit: 06/24/2022 Date of Next Visit: over due. Called and left message for patient to call in. Sending letter * Telephone Encounter - Rhea Grijalva OSA - 01/07/2024 1:17 PM EST The patient needs a script for Fosfomycin sent to [facility]. documented in this encounter Plan of Treatment Upcoming Encounters Date Type Department Care Team (Latest Contact Info) Description 4 11:00 AM EST Office Visit Orthopaedics [facility] [address] [facility] [place] [address] Harley Nguyen, DO [address] [place] [address] 4 1:00 PM EDT PulmDiagnostic Pulmonary Function Lab, [facility] 132 [facility] [place] [address] [address], [address] [place] [address] 4 1:00 PM EDT Imaging Radiology [facility] 1st [facility] 132 [place] [address] 4 10:30 AM EDT Office Visit Pulmonary Medicine, [place] [address] [place] [address] Raulito Cosme MD [address] [place] [address] 4 1:30 PM EDT Office Visit Cardiology, [facility] 132 [place] [address] Shilpi Bailey PA-C 132 [facility] [place] [address] 4 12:10 PM EDT Office Visit [place] [address] [place] [phone] Kat Hawthorne, [address] [place] [address] 4 9:45 AM EDT Hospital Encounter [facility] Endoscopy Suite, HFAM 1, [address] [place] [address] Fish Ahmadi MD [address] [place] [address] 4 9:45 AM EDT - 4 11:30 AM EDT Surgery [facility] Endoscopy Suite, HFAM 1, [address] [place] [address] Fish Ahmadi MD [address] [place], [place] [phone] ESOPHAGOGASTRODUODENOSCOPY (EGD), FLEXIBLE, TRANSORAL, ENDOSCOPIC ULTRASOUND 4 10:30 AM EDT Office Visit Orthopaedics, [place] [address], [place] [phone] Cholo Shah MD [address] [place] [address] 10:30 AM EDT Office Visit Gynecology/Onco Cam maki [address] [place] [address] Jeanie Gunter PA-C [address], [place] [phone] Scheduled Procedures Name Priority Associated Diagnoses Date/Ti [...] COPD 03/10/2024 03/10/2023 CKD PHOS USE SMARTSET 21708 03/16/2024 050 06/2023, 03/15/2023, 03/14/2023, Additional history exists GFR 06/08/2024 12/09/2023, 1107/2023, 07/14/2023, Additional history exists CKD HGB USE SMARTSET 69760 12/09/202412/09, 12/09/2023, 09/17/2023, Additional history exists Mammogram [...] this encounter Medical Devices Implanted Type Area Drilling Assistant Device Identifier Shelf Expiration Date Model / Serial / Lot Cement Bone Simplex Hv & G - [id number] Implanted:Qty: 2 on 01/05/2023 by Harley Nguyen, DO at OR [facility] Left: Knee ROSALIA : ORTHOPAEDICS 06/08/2024 6195-1-010 / / [id number] Component Femoral Size 5 - [id number] Implanted:Qty: 1 on 01/05/2023 by Harley Nguyen DO at OR [facility] Left: Knee ROSALIA : ORTHOPAEDICS 08/09/2026 5510-F-501 / / [id number] Knee Tria Syetric X3 10x36 - [id number] Implanted:Qty: 1 on 01/05/2023 by Harley Nguyen DO at OR [facility] Left: Knee ROSALIA : ORTHOPAEDICS 09/24/2027 5550-G-360 -E / / [id number] Baseplate Tib 5 Knee - [id number] Implanted:Qty: 1 on 01/05/2023 by Harley Nguyen DO at OR [facility] Left: Knee ROSALIA : ORTHOPAEDICS 12/14/2027 5521-B-500 / / [id number] Knee X3 Ins Pos Cs Sz5 9 - [id number] Implanted:Qty: 1 on 01/05/2023 by Harley Nguyen DO at OR [facility] Left: Knee ROSALIA : ORTHOPAEDICS 11/19/2027 5531-G-509 -E / / [id number] Cement Bone Full Mix Surg Simp - [id number] Implanted:Qty: 1 on 03/03/2023 by Cohlo Shah MD [place] [facility] Right: Knee ROSALIA : ORTHOPAEDICS 05/08/2025 6191-1-010 / / [id number] Knee Tib Comp Poly Krh 8 Lg - [id number] Implanted:Qty: 1 on 03/03/2023 by Cholo Shah MD [place] [facility] Right: Knee ROSALIA : ORTHOPAEDICS 07/19/2023 6485-2-308 / / [id number] Knee Hrhk Mod Rot Hng Bushing - [id number] Implanted:Qty: 1 on 03/03/2023 by Cholo Shah MD [place] [facility] Right: Knee ROSALAI : ORTHOPAEDICS 01/09/2027 6481-2-110 / / [id number] Knee Hrhk Mod Rot Hng Bushing - [id number] Implanted:Qty: 1 on 03/03/2023 by Cholo Shah MD [place] [facility] Right: Knee ROSALIA : ORTHOPAEDICS 11/21/2026 6481-2-110 / / [id number] Knee Stem Crv Mod Mrs 53f144 - [id number] Implanted:Qty: 1 on 03/03/2023 by Cholo Shah MD [place] [facility] Right: Knee ROSALIA : ORTHOPAEDICS 10/02/2026 6485-3-715 / / [id number] Tib Mrh Cross Bear Long Xs/Xl - [id number] Implanted:Qty: 1 on 03/03/2023 by Cholo Shah MD [place] [facility] Right: Knee ROSALIA : ORTHOPAEDICS 12/05/2025 6481-2-103 / / [id number] Knee Tib Bumper Rot Hng Nue - [id number] Implanted:Qty: 1 on 03/03/2023 by Cholo Shah MD [place] [facility] Right: Knee ROSALIA : ORTHOPAEDICS 07/15/2027 6481-2-130 / / [id number] Distal Femoral Component Implanted:Qty: 1 on 03/03/2023 by Cholo Shah MD [place] [facility] [place]: Knee ROSALIA : ORTHOPAEDICS 08/23/2023 6495-2-040 / / [id number] Knee Axle Hrhk Rot Mod Hng - [id number] Implanted:Qty: 1 on 03/03/2023 by Cholo Shah MD [place] [facility] [place]: Knee ROSALIA : ORTHOPAEDICS 06/30/2027 6481-2-120 / / [id number] Restrictors Med Cmnt P197-8743 - [id number] Implanted:Qty: 1 on 03/03/2023 by Cholo Shah MD [place] [facility] Right: Knee ROSALIA : ORTHOPAEDICS 11/18/2027 C270-9863 / / Cement Bone Full Mix Surg Simp - [id number] Implanted:Qty: 1 on 03/03/2023 by Cholo Shah MD [place] [facility] [place]: Knee ROSALIA : ORTHOPAEDICS 07/09/2025 6191-1-010 / / [id number] Cement Bone Full Mix Surg Simp - [id number] Implanted:Qty: 1 on 03/03/2023 by Cholo Shah MD [place] [facility] [place]: Knee ROSALIA : ORTHOPAEDICS 06/08/2025 6191-1-010 / / [id number] Cement Bone Full Mix Surg Simp - [id number] Implanted:Qty: 1 on 03/03/2023 by Cholo Shah MD [place] [facility] Right: Knee ROSALIA : ORTHOPAEDICS 05/08/2025 6191-1-010 / / [id number] Knee Fem Gmrs Dis Std R - [id number] Implanted:Qty: 1 on 03/10/2023 by Cholo Shah MD [place] [facility] [place]: Knee ROSALIA : ORTHOPAEDICS 10/21/2027 6495-2-040 / / [id number] Knee Hrhk Mod Rot Hng Bushing - [id number] Implanted:Qty: 1 on 03/10/2023 by Cholo Shah MD [place] [facility] Right: Knee ROSALIA : ORTHOPAEDICS 01/29/2027 6481-2-110 / / [id number] Knee Axle Hrhk Rot Mod Hng - [id number] Implanted:Qty: 1 on 03/10/2023 by Cholo Shah MD [place] [facility] Right: Knee ROSALIA : ORTHOPAEDICS 09/15/2027 6481-2-120 / / [id number] Tib Mrh Cross Bear Long Xs/Xl - [id number] Implanted:Qty: 1 on 03/10/2023 by Cholo Shah MD [place] [facility] Right: Knee ROSALIA : ORTHOPAEDICS 09/30/2027 6481-2-103 / / [id number] Knee Hrhk Mod Rot Hng Bushing - [id number] Implanted:Qty: 1 on 03/10/2023 by Cholo Shah MD [place] [facility] Right: Knee ROSALIA : ORTHOPAEDICS 04/24/2027 6481-2-110 / / [id number] Knee Tib Bumper Rot Hng Nue - [id number] Implanted:Qty: 1 on 03/10/2023 by Cholo Shah MD [place] [facility] Right: Knee ROSALIA : ORTHOPAEDICS 10/15/2027 6481-2-130 / / [id number] documented as of this encounter Visit Diagnoses Diagnosis Recurrent UTI Urinary tract infection, site not specified Choledocholithiasis Calculus of bile duct without mention of cholecystitis or obstruction documented in this encounter Advance Directives Documents on File Type Date Recorded Patient Hazmat Tanker Driver Expl 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 Care Teams Slip Cover Operator Relationship Specialty Start Date End Date Kat Hawthorne DO [address] [facility] [place] [address] PCP - General Family Medicine 08/20/22 documented as of this encounter
--- OUTSIDE RECORDS SUMMARY | 2024-04-16 12:38 | External Medical Summary | Summary of Care ---
Author Name Unknown Organization [facility] Address [address] [place] [address] Phone [phone] Care Team Providers Care Ssas Developer Name Role Phone Kat Hawthorne DO Primary Care Provider [phone] Reason for Visit * Reason Onset Date Comments Med Request 01/07/2024 Encounter Details Date Type Department Care Team ([facility] st Contact Info) Description 01/07/2024 Telephone Infectious Disease, [place] [address], [place] [phone] Gordon Williamson MD [address], [place] [phone] Med Request Allergies Active Allergy Reactions Criticality [...] IN GASIndications:ILD (interstitial lung disease) ([facility]),Chronic respiratory failure with hypoxia (HCC) Use 2 LPM with exertion and 3 LPM with sleep. Needs small portable tanks, standing concentrator DME: [facility] 1 Each 0 2 Active Proventil HFA 108 (90 Base) MCG/ACT Inhalation Aerosol SolutionIndications :ILD (interstitial lung disease) ([facility]) Inhale by mouth 2 Puffs every 4 [...] mouth in the morning. 0 Active Nystatin 097677 UNIT/GM External Powder (Nystop) Apply topically to [...] & Plan: S/P wound vac placement at [facility] [[email or web address]] On doxycycline 100 mg BID x 14 days Old VT (myocardial infarction) 04/14/2023 Hyperlipidemia 04/14/2023 Hereditary hemolytic [...] mRNA, LNP-s, No Pre serve, 2-Dose Series ([employer] 08/23/2021,01/26/2021,01/05/2021 Pneumococcal Conjugate Vacc, 13 Valent (Prevnar) [...] a script for Fosfomycin sent to the [facility]. documented in this encounter Plan of Treatment Upcoming Encounters Date Type Department Care Team (Latest Contact Info) Description 4 11:00 AM EST Office Visit Orthopaedics [facility] 132 [facility] [place] [address] Harley Nguyen, DO [address] [place] [address] 4 1:00 PM EDT PulmDiagnostic Pulmonary Function Lab, [facility] 132 [facility] [place] [address] [address], [address] [place] [address] 4 1:00 PM EDT Imaging Radiology [facility] 1st [facility] 132 [place] [address] 4 10:30 AM EDT Office Visit Pulmonary Medicine, [place] [address] [place] [address] Raulito Cosme MD [address] [place] [address] 4 1:30 PM EDT Office Visit Cardiology, [facility] [address] [place] [address] Shilpi Bailey PA-C 132 [place] [address] 4 12:10 PM EDT Office Visit [place] [address] [place] [phone] Kat Hawthorne, [address] [place] [address] 4 9:45 AM EDT Hospital Encounter [facility]O [facility], Endoscopy Suite, HFAM 1, [address] [place] [address] Fish Ahmadi MD [address] [place] [address] 4 9:45 AM EDT - 4 11:30 AM EDT Surgery ENDO [facility], Endoscopy Suite, HFAM 1, [address] [place] [address] Fish Ahmadi MD [address], [place] [phone] ESOPHAGOGASTRODUODENOSCOPY (EGD), FLEXIBLE, TRANSORAL, ENDOSCOPIC ULTRASOUND 4 10:30 AM EDT Office Visit Orthopaedics, [place] [address] [place], [place] [address] Cholo Shah MD [address] [place] [address] 10:30 AM EDT Office Visit Gynecology/Onco Cam maki [address] [place] [address] Jeanie Gunter PA-C [address], [place] [phone] Scheduled Procedures Name Priority Associated Diagnoses Date/Ti [...] COPD 03/10/2024 03/10/2023 CKD PHOS USE SMARTSET 49731 03/16/2024 050 06/2023, 03/15/2023, 03/14/2023, Additional history exists GFR 06/08/2024 12/09/2023, 1107/2023, 07/14/2023, Additional history exists CKD HGB USE SMARTSET 17933 12/09/202412/09, 12/09/2023, 09/17/2023, Additional history exists Mammogram [...] this encounter Medical Devices Implanted Type Area Radio Communications Superintendent Device Identifier Shelf Expiration Date Model / Serial / Lot Cement Bone Simplex Hv & G - [id number] Implanted:Qty: 2 on 01/05/2023 by Harley Nguyen, DO at OR [facility] Left: Knee ROSALIA : ORTHOPAEDICS 06/08/2024 6195-1-010 / / [id number] Femoral Size 5 - [id number] Implanted:Qty: 1 on 01/05/2023 by Harley Nguyen DO at OR [facility] Left: Knee ROSALIA : ORTHOPAEDICS 08/09/2026 5510-F-501 / / [id number] Knee Tria Syetric X3 10x36 - [id number] Implanted:Qty: 1 on 01/05/2023 by Harley Nguyen DO at OR [facility] Left: Knee ROSALIA : ORTHOPAEDICS 09/24/2027 5550-G-360 -E / / [id number] Baseplate Tib 5 Knee - [id number] Implanted:Qty: 1 on 01/05/2023 by Harley Nguyen DO at OR [facility] Left: Knee ROSALIA : ORTHOPAEDICS 12/14/2027 5521-B-500 / / [id number] Knee X3 Ins Pos Cs Sz5 9 - [id number] Implanted:Qty: 1 on 01/05/2023 by Harley Nguyen DO at OR [facility] Left: Knee ROSALIA : ORTHOPAEDICS 11/19/2027 5531-G-509 -E / / [id number] Cement Bone Full Mix Surg Simp - [id number] Implanted:Qty: 1 on 03/03/2023 by Cholo Shah MD at [place] [facility] Right: Knee ROSALIA : ORTHOPAEDICS 05/08/2025 6191-1-010 / / [id number] Knee Tib Comp Poly Krh 8 Lg - [id number] Implanted:Qty: 1 on 03/03/2023 by Cholo Shah MD at OR [facility] Right: Knee ROSALIA : ORTHOPAEDICS 07/19/2023 6485-2-308 / / [id number] Knee Hrhk Mod Rot Hng Bushing - [id number] Implanted:Qty: 1 on 03/03/2023 by Cholo Shah MD at OR [facility] Right: Knee ROSALIA : ORTHOPAEDICS 01/09/2027 6481-2-110 / / [id number] Knee Hrhk Mod Rot Hng Bushing - [id number] Implanted:Qty: 1 on 03/03/2023 by Cholo Shah MD at OR [facility] Right: Knee ROSALIA : ORTHOPAEDICS 11/21/2026 6481-2-110 / / [id number] Knee Stem Crv Mod Mrs 15q122 - [id number] Implanted:Qty: 1 on 03/03/2023 by Cholo Shah MD at OR [facility] Right: Knee ROSALIA : ORTHOPAEDICS 10/02/2026 6485-3-715 / / [id number] Tib Mrh Cross Bear Long Xs/Xl - [id number] Implanted:Qty: 1 on 03/03/2023 by Cholo Shah MD at OR [facility] Right: Knee ROSALIA : ORTHOPAEDICS 12/05/2025 6481-2-103 / / [id number] Knee Tib Bumper Rot Hng Nue - [id number] Implanted:Qty: 1 on 03/03/2023 by Cholo Shah MD at OR [facility] Right: Knee ROSALIA : ORTHOPAEDICS 07/15/2027 6481-2-130 / / [id number] Distal Femoral Component Implanted:Qty: 1 on 03/03/2023 by Cholo Shah MD at OR [facility] Right: Knee ROSALIA : ORTHOPAEDICS 08/23/2023 6495-2-040 / / [id number] Knee Axle Hrhk Rot Mod Hng - [id number] Implanted:Qty: 1 on 03/03/2023 by Cholo Shah MD at OR [facility] Right: Knee ROSALIA : ORTHOPAEDICS 06/30/2027 6481-2-120 / / [id number] Restrictors Med Cmnt K849-5994 - [id number] Implanted:Qty: 1 on 03/03/2023 by Cholo Shah MD at OR [facility] Right: Knee ROSALIA : ORTHOPAEDICS 11/18/2027 C628-8759 / / Cement Bone Full Mix Surg Simp - [id number] Implanted:Qty: 1 on 03/03/2023 by Cholo Shah MD at OR [facility] Right: Knee ROSALIA : ORTHOPAEDICS 07/09/2025 6191-1-010 / / [id number] Cement Bone Full Mix Surg Simp - [id number] Implanted:Qty: 1 on 03/03/2023 by Cholo Shah MD at OR [facility] Right: Knee ROSALIA : ORTHOPAEDICS 06/08/2025 6191-1-010 / / [id number] Cement Bone Full Mix Surg Simp - [id number] Implanted:Qty: 1 on 03/03/2023 by Cholo Shah MD at OR [facility] Right: Knee ROSALIA : ORTHOPAEDICS 05/08/2025 6191-1-010 / / [id number] Knee Fem Gmrs Dis Std R - [id number] Implanted:Qty: 1 on 03/10/2023 by Cholo Shah MD at OR [facility] Right: Knee ROSALIA : ORTHOPAEDICS 10/21/2027 6495-2-040 / / [id number] Knee Hrhk Mod Rot Hng Bushing - [id number] Implanted:Qty: 1 on 03/10/2023 by Cholo Shah MD at OR [facility] Right: Knee ROSALIA : ORTHOPAEDICS 01/29/2027 6481-2-110 / / [id number] Knee Axle Hrhk Rot Mod Hng - [id number] Implanted:Qty: 1 on 03/10/2023 by Cholo Shah MD at OR [facility] Right: Knee ROSALIA : ORTHOPAEDICS 09/15/2027 6481-2-120 / / [id number] Tib Mrh Cross Bear Long Xs/Xl - [id number] Implanted:Qty: 1 on 03/10/2023 by Cholo Shah MD at OR [facility] Right: Knee ROSALIA : ORTHOPAEDICS 09/30/2027 6481-2-103 / / [id number] Knee Hrhk Mod Rot Hng Bushing - [id number] Implanted:Qty: 1 on 03/10/2023 by Cholo Shah MD at OR [facility] Right: Knee ROSALIA : ORTHOPAEDICS 04/24/2027 6481-2-110 / / [id number] Knee Tib Bumper Rot Hng Nue - [id number] Implanted:Qty: 1 on 03/10/2023 by Cholo Shah MD at OR [facility] Right: Knee ROSALIA : ORTHOPAEDICS 10/15/2027 6481-2-130 / / [id number] documented as of this encounter Visit Diagnoses Diagnosis Recurrent UTI Urinary tract infection, site not specified Choledocholithiasis Calculus of bile duct without mention of cholecystitis or obstruction documented in this encounter Advance Directives Documents on File Type Date Recorded Patient Inspector Firearms Expl 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 Care Teams Ssas Developer Relationship Specialty Start Date End Date Kat Hawthorne DO [address] [facility] [place] [address] PCP - General Family Medicine 08/20/22 documented as of this encounter
--- OUTSIDE RECORDS SUMMARY | 2024-04-16 12:38 | External Medical Summary | Summary of Care ---
Author Name Unknown Organization [facility] Address [address] [place] [address] Phone [phone] Care Team Providers Care Billing Representative Name Role Phone Kat Hawthorne DO Primary Care Provider [phone] Encounter Details Date Type Department Care Team ([facility] st Contact Info) Description 01/12/2024 Patient Reported Data Patient Survey Ortho FORCE Allergies Active Allergy Reactions Criticality Noted Date [...] as of this encounter (statuses as of 01/21/2024) Medications Medication Sig Dispensed Refills Start Date [...] Inhalation Aerosol SolutionIndications: ILD (interstitial lung disease) ([facility]) Inhale by mouth 2 Puffs every [...] mouth in the morning. 0 Active Nystatin 995819 UNIT/GM External Powder (Nystop) Apply topically to [...] as of this encounter (statuses as of 01/21/2024) Active Problems Problem Noted Date Diagnosed Date [...] as of this encounter (statuses as of 01/21/2024) Resolved Problems Problem Noted Date Diagnosed Date [...] as of this encounter (statuses as of 01/21/2024) Immunizations Name Administration Dates Next Due COVID-19 mRNA, LNP-s, No Pre serve, 2-Dose Series (Avtozaper) 08/23/2021,01/26/2021,01/05/2021 Pneumococcal Conjugate Vacc, 13 Valent (Prevnar) [...] Department Care Team (Latest Contact Info) Description 12:40 PM EDT Office Visit Infectious Disease [facility] [address] [place] [address] Trish Mock MD [address] [place] [address] 4 1:00 PM EDT PulmDiagnostic Pulmonary Function Lab, [facility] [address] [place] [address] West, [address] [place] [address] 4 1:00 PM EDT Imaging Radiology [facility]st [facility] [address] [place] [address] 4 10:30 AM EDT Office Visit Pulmonary Medicine, [place] [address] [place] [address] Raulito Cosme MD [address] [place] [address] 4 1:30 PM EDT Office Visit Cardiology, [facility] [address] [place] [address] Shilpi Bailey PA-C [address] [facility] [place] [address] 4 12:10 PM EDT Office Visit [facility] [address] [place] [address] Kat Hawthorne, [address] [place] [address] 4 9:45 AM EDT Hospital Encounter [facility], Endoscopy Suite, [facility] 1, [address], [place] [address] Fish Ahmadi MD [address] [place] [address] 4 9:45 AM EDT - 4 11:30 AM EDT Surgery ENDO [facility], Endoscopy Suite, HFAM 1, [address] [place] [address] Fish Ahmadi MD [address] [place] [address] ESOPHAGOGASTRODUODENOSCOPY (EGD), FLEXIBLE, TRANSORAL, ENDOSCOPIC ULTRASOUND 4 10:30 AM EDT Office Visit Orthopaedics, [place] [address] [place] [address] Cholo Shah MD [address] [place] [address] 4 10:30 AM EDT Office Visit Gynecology/Onco logy, [place] [address] [place] [address] Jeanie Gunter PA-C [address], [place] [id number] Scheduled Procedures Name Priority Associated Diagnoses Date/Ti [...] COPD 03/10/2024 03/10/2023 CKD PHOS USE SMARTSET 55403 03/16/2024 0506/2023, 03/15/2023, 03/14/2023, Additional history exists GFR 06/08/2024 12/09/2023, 07/2023, 07/14/2023, Additional history exists CKD HGB USE SMARTSET 05689 12/09/202412/09, 12/09/2023, 09/17/2023, Additional history exists Mammogram [...] this encounter Medical Devices Implanted Type Area Production Boring Machine Operator Device Identifier Shelf Expiration Date Model / Serial / Lot Cement Bone Simplex Hv & G - [id number] Implanted:Qty: 2 on 01/05/2023 by Harley Nguyen DO at OR [facility] Left: Knee ROSALIA : ORTHOPAEDICS 06/08/2024 6195-1-010 / / [id number] Component Femoral Size 5 - [id number] Implanted:Qty: 1 on 01/05/2023 by Harley Nguyen DO at OR [facility] Left: Knee ROSALIA : ORTHOPAEDICS 08/09/2026 5510-F-501 / / [id number] Knee Tria Syetric X3 10x36 - [id number] Implanted:Qty: 1 on 01/05/2023 by Harley Nguyen DO at OR [facility] Left: Knee ROSALIA : ORTHOPAEDICS 09/24/2027 5550-G-360 -E / / [id number] Baseplate Tib 5 Knee - [id number] Implanted:Qty: 1 on 01/05/2023 by Harley Nguyen DO at OR [facility] Left: Knee ROSALIA : ORTHOPAEDICS 12/14/2027 5521-B-500 / / [id number] Knee X3 Ins Pos Cs Sz5 9 - [id number] Implanted:Qty: 1 on 01/05/2023 by Harley Nguyen DO at OR [facility] Left: Knee ROSALIA : ORTHOPAEDICS 11/19/2027 5531-G-509 -E / / [id number] Cement Bone Full Mix Surg Simp - [id number] Implanted:Qty: 1 on 03/03/2023 by Chloo Shah MD at OR [facility] Right: Knee ROSALIA : ORTHOPAEDICS 05/08/2025 6191-1-010 / / [id number] Knee Tib Comp Poly Krh 8 Lg - [id number] Implanted:Qty: 1 on 03/03/2023 by Cholo Shah MD at OR [facility] Right: Knee ROSALIA : ORTHOPAEDICS 07/19/2023 6485-2-308 / / [id number] Knee Hrhk Mod Rot Hng Bushing - [id number] Implanted:Qty: 1 on 03/03/2023 by Cholo Shah MD at OR [facility] Right: Knee ROSALIA : ORTHOPAEDICS 01/09/2027 6481-2-110 / / [id number] Knee Hrhk Mod Rot Hng Bushing - [id number] Implanted:Qty: 1 on 03/03/2023 by Cholo Shah MD at OR [facility] Right: Knee ROSALIA : ORTHOPAEDICS 11/21/2026 6481-2-110 / / [id number] Knee Stem Crv Mod Mrs 63w032 - [id number] Implanted:Qty: 1 on 03/03/2023 by Cholo Shah MD at OR [facility] Right: Knee ROSALIA : ORTHOPAEDICS 10/02/2026 6485-3-715 / / [id number] Tib Mrh Cross Bear Long Xs/Xl - [id number] Implanted:Qty: 1 on 03/03/2023 by Cholo Shah MD at OR [facility] Right: Knee ROSALIA : ORTHOPAEDICS 12/05/2025 6481-2-103 / / [id number] Knee Tib Bumper Rot Hng Nue - [id number] Implanted:Qty: 1 on 03/03/2023 by Cholo Shah MD at OR [facility] Right: Knee ROSALIA : ORTHOPAEDICS 07/15/2027 6481-2-130 / / [id number] Distal Femoral Component Implanted:Qty: 1 on 03/03/2023 by Cholo Shah MD at OR [facility] Right: Knee ROSALIA : ORTHOPAEDICS 08/23/2023 6495-2-040 / / [id number] Knee Axle Hrhk Rot Mod Hng - [id number] Implanted:Qty: 1 on 03/03/2023 by Cholo Shah MD at OR [facility] Right: Knee ROSALIA : ORTHOPAEDICS 06/30/2027 6481-2-120 / / [id number] Restrictors Med Cmnt Q809-4998 - [id number] Implanted:Qty: 1 on 03/03/2023 by Cholo Shah MD at OR [facility] Right: Knee ROSALIA : ORTHOPAEDICS 11/18/2027 [id number] / / Cement Bone Full Mix Surg Simp - [id number] Implanted:Qty: 1 on 03/03/2023 by Cholo Shah MD at OR [facility] Right: Knee ROSALIA : ORTHOPAEDICS 07/09/2025 6191-1-010 / / [id number] Cement Bone Full Mix Surg Simp - [id number] Implanted:Qty: 1 on 03/03/2023 by Cholo Shah MD at OR [facility] Right: Knee ROSALIA : ORTHOPAEDICS 06/08/2025 6191-1-010 / / [id number] Cement Bone Full Mix Surg Simp - [id number] Implanted:Qty: 1 on 03/03/2023 by Cholo Shah MD at OR [facility] Right: Knee ROSALIA : ORTHOPAEDICS 05/08/2025 6191-1-010 / / [id number] Knee Fem Gmrs Dis Std R - [id number] Implanted:Qty: 1 on 03/10/2023 by Cholo Shah MD at OR [facility] Right: Knee ROSALIA : ORTHOPAEDICS 10/21/2027 6495-2-040 / / [id number] Knee Hrhk Mod Rot Hng Bushing - [id number] Implanted:Qty: 1 on 03/10/2023 by Cholo Shah MD at OR [facility] Right: Knee ROSALIA : ORTHOPAEDICS 01/29/2027 6481-2-110 / / [id number] Knee Axle Hrhk Rot Mod Hng - [id number] Implanted:Qty: 1 on 03/10/2023 by Cholo Shah MD at OR [facility] Right: Knee ROSALIA : ORTHOPAEDICS 09/15/2027 6481-2-120 / / [id number] Tib Mrh Cross Bear Long Xs/Xl - [id number] Implanted:Qty: 1 on 03/10/2023 by Cholo Shah MD at OR [facility] Right: Knee ROSALIA : ORTHOPAEDICS 09/30/2027 6481-2-103 / / [id number] Knee Hrhk Mod Rot Hng Bushing - [id number] Implanted:Qty: 1 on 03/10/2023 by Cholo Shah MD at OR [facility] Right: Knee ROSALIA : ORTHOPAEDICS 04/24/2027 6481-2-110 / / [id number] Knee Tib Bumper Rot Hng Nue - [id number] Implanted:Qty: 1 on 03/10/2023 by Cholo Shah MD at OR [facility] Right: Knee ROSALIA : ORTHOPAEDICS 10/15/2027 6481-2-130 / / [id number] documented as of this encounter Advance Directives Documents on File Type Date Recorded Patient Crosstie Inspector Expl 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 Care Teams Billing Representative Relationship Specialty Start Date End Date Kat Hawthorne DO [address] [place] [address] PCP - General Family Medicine 08/20/22 documented as of this encounter
--- OUTSIDE RECORDS SUMMARY | 2024-04-16 12:39 | External Medical Summary | Summary of Care ---
Author Name Unknown Organization [facility] Address [address] [place] [address] Phone [phone] Care Team Providers Care Black Top Machine Operator Name Role Phone Antonia Hawthorne DO Primary Care Provider Reason for Visit * Reason Onset Date Comments Medication Refill 12/25/2023 Status Check 12/25/2023 Encounter Details Date Type Department Care Team (Late st Contact Info) Description 12/25/[address] [facility] [address] [place] [address] Antonia Hawthorne [address] [place] [address] BILLY (generalized anxiety disorder) Allergies [...] as of this encounter (statuses as of 12/31/2023) Medications Medication Sig Dispensed Refills Start Date [...] oxygen IN GASIndications:ILD (interstitial lung disease) ([facility]),Chronic respiratory failure with hypoxia (HCC) [...] mouth in the morning. 0 Active Nystatin 103466 UNIT/GM External Powder (Nystop) Apply topically to [...] the morning. 90 Tablet 3 3 Active Fosfomycin Tromethamine 3 GM Oral Packet (Monurol)Indication s:Recurrent UTI Take 3 g by mouth once a week. 4 Packet 5 3 Active Bumetanide 2 MG Oral Tablet [...] needed for Anxiety. 60 Tablet 0 4 12/25/19 24 Discontinu ed(Refill) documented as of this encounter (statuses as of 12/31/2023) Active Problems Problem Noted Date Diagnosed Date [...] as of this encounter (statuses as of 12/31/2023) Resolved Problems Problem Noted Date Diagnosed Date [...] as of this encounter (statuses as of 12/31/2023) Immunizations Name Administration Dates Next Due COVID-19 [...] encounter Miscellaneous Notes * Telephone Encounter - Princess Hardin manager car - 12/31/2023 2:44 PM EST Pt calling to request Lorazepam. Informed pt that RX is available at their pharmacy. Pt verbalized understanding and stated they will check with their pharmacy regarding this medication. Called pharmacy to confirm refills were there due to patient being told they were not. Pharmacy confirmed they would have ready in one hour Thank you, Princess Hardin Molecular Physicist I [facility] ([facility])(formerly Telepharmacy) 12/31/2023,2:44 PM * Telephone Encounter - Gloria Hyatt CPhT - 12/28/2023 3:49 PM EST Patients pharmacy calling to verify patients most recent and upcoming office visit. Thank you, Gloria Hyatt Crm Analyst I [facility] (Formerly Telepharmacy) 12/28/2023, 3:49 PM * Telephone Encounter - Antonia Hawthorne DO - 12/28/2023 8:43 AM ESTSigned Prescriptions: Disp Refills LORazepam 0.5 MG Oral Tablet (Ativan) 60 Tab*0 Sig: Take 1 Tablet by mouth every 8 hours as needed for Anxiety. Authorizing Provider: ANTONIA HAWTHORNE * Telephone Encounter - Pa Hua [facility] - 12/25/2023 3:30 PM ESTPending Prescriptions: Disp Refills LORazepam 0.5 MG Oral Tablet (Ativan) 60 Tab*0 Sig: Take 1 Tablet by mouth every 8 hours as needed for Anxiety. * Telephone Encounter - Pa Hua [facility] - 12/25/2023 3:29 PM EST I have reviewed the patients controlled substance dispensing history in the Prescription Drug Monitoring Program in compliance with the [facility] regulations before prescribing a controlled substance. PDMP checked on 12/25/2023. Pending Prescriptions: Disp Refills LORazepam 0.5 MG Oral Tablet (Ativan) 60 Tab*0 Sig: Take 1 Tablet by mouth every 8 hours as needed for Anxiety. Last Visit: 10/19/2023 (in office), 12/04/2020 (telemedicine) Next Visit: 03/30/2024 Date medication was last filled: 11-23-23 Date medication is due for refill: 12-13-23 Pharmacy: [facility] [address] [address] Is this request for a [...] Results Review. Please approve if appropriate. Thanks, Pa Hua, Sherrill.Ph. Clinical Pharmacist [facility] [phone] ext [phone] 12/25/2023,3:29 PM * Telephone Encounter - Patricia Carrera CPhT - 12/25/2023 11:10 AM EST Did you pend patient's preferred pharmacy and medication before forwarding?yes Pharmacy: [facility] [id number] Pending Prescriptions: Disp Refills LORazepam 0.5 MG Oral Tablet (Ativan) 60 Tab*0 Sig: Take 1 Tablet by mouth every 8 hours as needed for Anxiety. Last Visit: 10/19/2023 (in office), 12/04/2020 (telemedicine) Next Visit: 03/30/2024 If no future appointments scheduled, and last appointment is greater than a year ago, please schedule patient for a follow-up appointment Last date the medication was ordered: 11/23/23 Is this request for a controlled substance?Take [...] 4 11:00 AM EST Office Visit Orthopaedics [facility] [address] [facility] [place] [address] Harley Nguyen, [address] [place] [address] 4 1:00 PM EDT PulmDiagnostic Pulmonary Function Lab, [facility] [place] [place] [address] [address], [address] [place] [address] 4 1:00 PM EDT Imaging Radiology [facility] 1st [facility] [address] [facility] [place] [address] 4 10:30 AM EDT Office Visit Pulmonary Medicine, [place] [address] [place] [address] Raulito Cosme MD [address] [facility] [place] [address] 4 1:30 PM EDT Office Visit Cardiology, [facility] [address] [facility] [place] [address] Shilpi Bailey PA-C 132 [facility] [place] [address] 4 12:10 PM EDT Office Visit [place] [address] [place] [address] Antonia Hawthorne, [place] [address] 4 9:00 AM EDT Hospital Encounter [facility], Endoscopy Suite, [facility]AM 1, [address] [facility] [id number] Fish Ahmadi MD [address] [facility] [place] [address] 4 9:00 AM EDT - 4 10:45 AM EDT Surgery [facility], Endoscopy Suite, HFAM 1, [address] [place] [address] Fish Ahmadi MD [address] [place] [address] ESOPHAGOGASTRODUODENOSCOPY (EGD), FLEXIBLE, TRANSORAL, ENDOSCOPIC ULTRASOUND 4 10:30 AM EDT Office Visit Orthopaedics, [place] [address] [place] [address] Cholo Shah MD [address] [place] [address] 4 10:30 AM EDT Office Visit Gynecology/Onco logy, [place] [address] [place] [address] Jeanie Gunter PA-C [address] [place], [place] [address] Scheduled Procedures Name Priority Associated Diagnoses Date/Ti me ESOPHAGOGASTRODUODENOSCOPY ( EGD), FLEXIBLE, TRANSORAL, ENDOSCOPIC ULTRASOUND Choledocholithiasis 04/18/2024 9:00 AM EDT ENDOSCOPIC RETROGRADE CHOLANGIOPANCREATOGRAPHY (ERCP) DIAGNOSTIC Choledocholithiasis 04/18/2024 9:00 AM EDT ESOPHAGOGASTRODUODENOSCOPY ( EGD), FLEXIBLE, TRANSORAL, DIAGNOSTIC Choledocholithiasis 04/18/2024 9:00 AM EDT COLONOSCOPY FLEXIBLE PROXIMA L DIAGNOSTIC Recall Colon cancer screening Health Maintenance Due Date Last Done Comments DXA Scan 1953 Alpha-1 Antitrypsin 1971 Cologuard 1998 Fecal Occult Blood Test 1998 Sigmoidoscopy 1998 Depression Screening 09/11/2021 09/11/2020 Albumin/Creatinine Ratio 09/04/2022 021, 01/27/2019, 12/21/2017, Additional history exists *BISPHONATE OR OTHER ACCEPTABLE MEDICATION NEEDED FOR OSTEOPOROSIS (REFER TO SMARTSET #1146) 03/07/2023 COVID-19 Vaccine ( season) 2023 08/23/2021, 08/02/2021, 01/26/2021, Additional history exists HbA1c 12/18/2023 12/18/2022, 05/09, 10/21/2016, Additional history exists O2 ASSESSMENT COMPLETED IN PAST YEAR FOR COPD 03/10/2024 03/10/2023 GFR 06/08/2024 12/09/2023, 11/0 07/2023, 07/14/2023, Additional history exists Mammogram 12/09/2024 12/09/2023, 04/10, [...] this encounter Medical Devices Implanted Type Area Customer Support Associate Device Identifier Shelf Expiration Date Model / Serial / Lot Cement Bone Simplex Hv & G - [id number] Implanted:Qty: 2 on 01/05/2023 by Harley Nguyen DO at OR [facility] Left: Knee ROSALIA : ORTHOPAEDICS 06/08/2024 6195-1-010 / / [id number] Component Femoral Size 5 - [id number] Implanted:Qty: 1 on 01/05/2023 by Harley Nguyen DO at OR [facility] Left: Knee ROSALIA : ORTHOPAEDICS 08/09/2026 5510-F-501 / / [id number] Knee Tria Syetric X3 10x36 - [id number] Implanted:Qty: 1 on 01/05/2023 by Harley Nguyen DO at OR [facility] Left: Knee ROSALIA : ORTHOPAEDICS 09/24/2027 5550-G-360 -E / / [id number] Baseplate Tib 5 Knee - [id number] Implanted:Qty: 1 on 01/05/2023 by Harley Nguyen DO at OR [facility] Left: Knee ROSALIA : ORTHOPAEDICS 12/14/2027 5521-B-500 / / [id number] Knee X3 Ins Pos Cs Sz5 9 - [id number] Implanted:Qty: 1 on 01/05/2023 by Harley Nguyen DO at OR [facility] Left: Knee ROSALIA : ORTHOPAEDICS 11/19/2027 5531-G-509 -E / / [id number] Cement Bone Full Mix Surg Simp - [id number] Implanted:Qty: 1 on 03/03/2023 by Cholo Shah MD at [place] [facility] Right: Knee ROSALIA : ORTHOPAEDICS 05/08/2025 6191-1-010 / / [id number] Knee Tib Comp Poly Krh 8 Lg - [id number] Implanted:Qty: 1 on 03/03/2023 by Cholo Shah MD at [place] [facility] Right: Knee ROSALIA : ORTHOPAEDICS 07/19/2023 6485-2-308 / / [id number] Knee Hrhk Mod Rot Hng Bushing - [id number] Implanted:Qty: 1 on 03/03/2023 by Cholo Shah MD at [place] [facility] Right: Knee ROSALIA : ORTHOPAEDICS 01/09/2027 6481-2-110 / / [id number] Knee Hrhk Mod Rot Hng Bushing - [id number] Implanted:Qty: 1 on 03/03/2023 by Cholo Shah MD at [place] [facility] Right: Knee ROSALIA : ORTHOPAEDICS 11/21/2026 6481-2-110 / / [id number] Knee Stem Crv Mod Mrs 78a676 - [id number] Implanted:Qty: 1 on 03/03/2023 by Cholo Shah MD at [place] [facility] Right: Knee ROSALIA : ORTHOPAEDICS 10/02/2026 6485-3-715 / / [id number] Tib Mrh Cross Bear Long Xs/Xl - [id number] Implanted:Qty: 1 on 03/03/2023 by Cholo Shah MD at [place] [facility] Right: Knee ROSALIA : ORTHOPAEDICS 12/05/2025 6481-2-103 / / [id number] Knee Tib Bumper Rot Hng Nue - [id number] Implanted:Qty: 1 on 03/03/2023 by Cholo Shah MD at [place] [facility] Right: Knee ROSALIA : ORTHOPAEDICS 07/15/2027 6481-2-130 / / [id number] Distal Femoral Component Implanted:Qty: 1 on 03/03/2023 by Cholo Shah MD at [place] [facility] Right: Knee ROSALIA : ORTHOPAEDICS 08/23/2023 6495-2-040 / / [id number] Knee Axle Hrhk Rot Mod Hng - [id number] Implanted:Qty: 1 on 03/03/2023 by Cholo Shah MD at [place] [facility] Right: Knee ROSALIA : ORTHOPAEDICS 06/30/2027 6481-2-120 / / [id number] Restrictors Med Cmnt O416-5234 - [id number] Implanted:Qty: 1 on 03/03/2023 by Cholo Shah MD at [place] [facility] Right: Knee ROSALIA : ORTHOPAEDICS 11/18/2027 Q554-8989 / / Cement Bone Full Mix Surg Simp - [id number] Implanted:Qty: 1 on 03/03/2023 by Cholo Shah MD at [place] [facility] Right: Knee ROSALIA : ORTHOPAEDICS 07/09/2025 6191-1-010 / / [id number] Cement Bone Full Mix Surg Simp - [id number] Implanted:Qty: 1 on 03/03/2023 by Cholo Shah MD at [place] [facility] Right: Knee ROSALIA : ORTHOPAEDICS 06/08/2025 6191-1-010 / / [id number] Cement Bone Full Mix Surg Simp - [id number] Implanted:Qty: 1 on 03/03/2023 by Cholo Shah MD at [place] [facility] Right: Knee ROSALIA : ORTHOPAEDICS 05/08/2025 6191-1-010 / / [id number] Knee Fem Gmrs Dis Std R - [id number] Implanted:Qty: 1 on 03/10/2023 by Cholo Shah MD at [place] [facility] Right: Knee ROSALIA : ORTHOPAEDICS 10/21/2027 6495-2-040 / / [id number] Knee Hrhk Mod Rot Hng Bushing - [id number] Implanted:Qty: 1 on 03/10/2023 by Cholo Shah MD at [place] [facility] Right: Knee ROSALIA : ORTHOPAEDICS 01/29/2027 6481-2-110 / / [id number] Knee Axle Hrhk Rot Mod Hng - [id number] Implanted:Qty: 1 on 03/10/2023 by Cholo Shah MD at [place] [facility] Right: Knee ROSALIA : ORTHOPAEDICS 09/15/2027 6481-2-120 / / [id number] Tib Mrh Cross Bear Long Xs/Xl - [id number] Implanted:Qty: 1 on 03/10/2023 by Cholo Shah MD at [place] [facility] Right: Knee ROSALIA : ORTHOPAEDICS 09/30/2027 6481-2-103 / / [id number] Knee Hrhk Mod Rot Hng Bushing - [id number] Implanted:Qty: 1 on 03/10/2023 by Cholo Shah MD at [place] [facility] Right: Knee ROSALIA : ORTHOPAEDICS 04/24/2027 6481-2-110 / / [id number] Knee Tib Bumper Rot Hng Nue - [id number] Implanted:Qty: 1 on 03/10/2023 by Cholo Shah MD at [place] [facility] Right: Knee ROSALIA : ORTHOPAEDICS 10/15/2027 6481-2-130 / / [id number] documented as of this encounter Visit Diagnoses Diagnosis BILLY (generalized anxiety disorder) Generalized anxiety disorder Choledocholithiasis Calculus of bile duct without mention of cholecystitis or obstruction documented in this encounter Advance Directives Documents on File Type Date Recorded Patient Cna Expl 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 Care Teams Black Top Machine Operator Relationship Specialty Start Date End Date Antonia Hawthorne DO [address] [facility] [place] [address] PCP - General Family Medicine 08/20/22 documented as of this encounter
--- NOTE | 2024-04-16 14:09 | Hospitalist Progress Note ---
Date of Service April 16, 2024 Assessment & Plan (1) Hypersensitivity pneumonitis: (2) Acute respiratory failure with hypoxia and hypercapnia: (3) Acute exacerbation of CHF (congestive heart failure): Plan: Patient is a 68-year-old female with past medical history of chronic hypersensitive pneumonitis on 6 to 7 L of oxygen by nasal cannula, paroxysmal atrial fibrillation/flutter, not on anticoagulation due to chronic anemia and GI bleeding, tachybradycardia syndrome status post pacemaker, chronic HFpEF, hypertension, liver cirrhosis with WEIR, morbid obesity presents with shortness of breath and increasing fatigue gradually starting in the last 7 days. Patient had completed tapering course of steroids 6 days prior to admission. Acute on chronic hypercapnic respiratory failure History of chronic hypersensitive pneumonitis Possible pneumonia Possible acute on chronic diastolic heart failure Patient presented with shortness of breath for 1 day; at baseline she is on 6 to 7 L of oxygen by nasal cannula; desaturating to 70% ABG on admission showed acute on chronic hypercapnic respiratory failure with pH of 7.29 and pCO2 of 90 mmHg Chest x-ray shows interstitial and alveolar opacities; similar to findings previously on cxr Respiratory viral panel negative Continue with IV methylprednisolone 40 mg 3 times daily. Continue with ceftriaxone and Azithromycin for possible pneumonia Continue on BiPAP while sleeping, switch to high flow when eating. Continue Diuresis with Lasix 20 mg twice a day Duonebs every 4 hours Pulmonology on board; will follow recommendation Paroxysmal atrial fibrillation EKG on admission personally reviewed; normal sinus rhythm; QTc of 432 Continue sotalol BID, not on anticoagulation due to h/o GI bleed Telemonitoring Mood disorder Continue Zoloft, Ativan BID SSS S/p pacemaker placement H/o hemolytic anemia baseline 9-10).Previously on prednisone for same. Currently off steroid. Started on methylprednisolone NAFLD cirrhosis Appears compensated, continue low sodium diet BERRY Intolerant to CPAP, uses supplemental O2 at home. Continue bipap for now Hx of ESBL E coli UTI Continue Fosfomycin suppression qweekly (takes on Sundays) Type 2 DM HbA1c of 6.9% last admission SSI while in-patient Discussed lifestyle interventions; Oral hypoglycemic agents could be considered as outpatient I discussed goals of care with patient and patient's brother at bedside at the time of admission. They both acknowledge patient's gradual decline in her health and respiratory status for the last several months. They will want to continue medical intervention for the time being. They both agree that she would not benefit from mechanical ventilation and CPR. DVT prophylaxis heparin DNR/DNI Time spent evaluating patient, direct bedside care, chart review, placing orders, interpretation of diagnostic studies, discussion with consultants, patient, and family members, as well as other required patient management activities is 50 minutes Please note the above document was generated using voice recognition software. It may contain grammatical, syntax or spelling errors. Any formal questions or concerns about the content, text or information contained within the body of this dictation should be directly addressed to the provider for clarification Admission and Anticipated Discharge Date Admission Date: April 15, 2024 Subjective Patient seen and examined at bedside. She is on BiPAP; appears comfortable on it. She denies any increasing shortness of breath. Review of Systems Review of Systems: All systems reviewed & are unremarkable except as noted in Subjective Physical Exam Physical Exam: Constitutional: Alert, oriented x 3; appears tired. Comfortable on BiPAP Respiratory: Bilateral crackles heard in all lower lung base Cardiovascular: RRR, no murmur, no edema Vessels: no JVD or carotid bruit Abdomen: normal bowel sounds, soft, nontender, no hepatosplenomegaly Musculoskeletal: no cyanosis or clubbing, extremities motor strength 5/5 Skin: Multiple bruises all over her extremities. Trace pitting edema in bilateral lower extremity Neurologic: PERRL, EOMI, accommodation nl, no face palsy, no dysarthria CN's II- XI intact bilaterally and moves all extremities Psychiatric: A+Ox3, euthymic affect Results & Data Results & Data Vital Signs (Past 12 Hours) Vital Signs Temp Pulse Pulse Resp BP Pulse Ox Pulse Ox 04/16/24 11:00 36.6 C 78 18 138/74 97 04/16/24 10:31 68 20 92 04/16/24 10:31 68 20 04/16/24 10:31 69 04/16/24 10:22 04/16/24 10:18 92 04/16/24 08:00 36.5 C 77 20 139/71 96 04/16/24 07:51 76 20 96 04/16/24 07:51 76 20 92 04/16/24 06:07 67 17 97 04/16/24 05:06 67 20 98 04/16/24 04:01 75 18 95 04/16/24 03:52 73 18 94 04/16/24 03:38 36.5 C 73 22 146/75 H 93 O2 Del Method O2 Del Method O2 Flow Rate O2 Flow Rate FiO2 04/16/24 11:00 BiPAP 04/16/24 10:31 50 04/16/24 10:31 BiPAP 50 04/16/24 10:31 04/16/24 10:22 High Flow Nasal Cannula 40 70 04/16/24 10:18 High Flow Nasal Cannula 40 04/16/24 08:00 BiPAP 04/16/24 07:51 50 04/16/24 07:51 BiPAP 50 04/16/24 06:07 60 04/16/24 05:06 60 04/16/24 04:01 BiPAP 60 04/16/24 03:52 60 04/16/24 03:38 BiPAP
--- OUTSIDE RECORDS SUMMARY | 2024-04-16 15:46 | External Medical Summary | Summary of Care ---
Author Name Unknown Organization [facility] Address [address] [place] [facility] [place] [place] [address] Phone [phone] Care Team Providers Care Pilling Machine Operator Name Role Phone Kat Hawthorne DO Primary Care Provider [phone] Reason for Visit * Reason Onset Date Comments [facility]: Acute 04/15/2024 Encounter Details Date Type Department Care Team (Late st Contact Info) Description 04/15/2024 Telephone [facility], [facility] [address] [facility] [place] [address] Coordinator, [facility] [address] [facility] [place] [address] [facility]: Acute Allergies Active Allergy Reactions Criticality Noted Date [...] as of this encounter (statuses as of 04/15/2024) Medications Medication Sig Dispensed Refills Start Date [...] IN GASIndications:ILD (interstitial lung disease) ([facility]),Chronic respiratory failure with hypoxia (HCC) Use 2 LPM with exertion and 3 LPM with sleep. Needs small portable tanks, standing concentrator DME: [employer] 1 Each 07/02/2022 Active Proventil HFA 108 (90 Base) MCG/ACT Inhalation Aerosol SolutionIndications: ILD (interstitial lung disease) ([facility]) Inhale by mouth 2 Puffs every 4 [...] by mouth in the morning. Active Nystatin 782700 UNIT/GM External Powder (Nystop) Apply topically to [...] as of this encounter (statuses as of 04/15/2024) Active Problems Problem Noted Date Diagnosed Date [...] as of this encounter (statuses as of 04/15/2024) Resolved Problems Problem Noted Date Diagnosed Date [...] History - s/p surgery & treatment per SHIP'S ENGINEER note on 11/18/23 Ca 125: 68.8 [...] as of this encounter (statuses as of 04/15/2024) Immunizations Name Administration Dates Next Due COVID-19 [...] encounter Miscellaneous Notes * Telephone Encounter - Gabby Zamarripa RN - 04/15/2024 11:54 AM EDT [facility] upper doubler Acute Call Date: 04/15/2024 Time: 11:55 AM Name: Orin Warren Niurka : 1955 Caller: Orin Relationship to : self HPI: Orin Bah is a 68 year old female that is calling [facility] to report she feels "really winded today". More SOB on any exertion,and has a little wheezing. Denies fever, cough or chest congestion. No chest pain or edema. Patient did state her right arm is hurting all week but "she thinks it is her bursitis." Speaking clearly in full sentences. She increased her oxygen to 9 liters, normally has it on at 7 liters. Ox sat readings are only around 75%, normally they are around 90%. She did just wake up a little while ago and did not take any of her medications, inhalers or nebulizer's yet today. Informed patient I will schedule her for a HV today but maybe she should go to the ED. Patient prefers to wait and see if a home visit can be arranged, she will take her morning medications now and use her nebulizer. Nursing Assessment: Patient's chief complaint for this call: Shortness of breath Pain Has pain Pain level: 5 Location: right arm Quality of Pain: aching Does the pain radiate: No Baseline Assessment Able to performing ADLs at baseline (walking, daily tasks, etc.): Yes Chief Complaint is related to a chronic condition: Unknown Patient prescribed oxygen? Yes, 9L/min Patient has been ordered DME equipment (assistive devices, respiratory equipment, etc.): Yes Describe DME devices: oxygen and nebulizer Patient is using DME device as directed: Yes Medication Reconciliation: (See medication list) Received flu shot this season: Yes Taking medication as ordered: Yes Medications ordered/taking to treat reason for call: Yes, PRN medication(s) Ipratropium -Albuterol nebulizer Heart failure symptoms: Unknown COPD exacerbation symptoms: Unknown Reinforcement Education: Continue oxygen Monitor ox sat readings Limit activities Take morning medications including nebulizer treatment Treatment/Plan: (need to report) Level of call: Acute Appointment scheduled for same day: Yes Sausage Linker: July MCHUGH Await [facility] [place] Follow up weekend phone calls Gabby Zamarripa RN Manual Lathe Operator [facility] Communication Note Name: Orin Bah Situation: 68 year old female called stating she is " really winded today". Turned oxygen up to 9 liters, normally has it on at 7 liters Ox sat readings around 75%, normally around 90%. Denies cough, chest congestion, fever, chest pain or edema. Speaking clearly in full sentences. Has pain in the right arm all week, stated it's her bursitis "acting up." She did not take any morning medications yet. Advised to take all morning medications now including nebulizer treatment. Suggested she maybe should go to the ED , would rather wait for a HV . Background: HX PAT, A Fib/ Flutter, HF, HTN, pacemaker, old NH, esophageal varices, chronic respiratory failure, COPD, interstitial lung disease, DM, CKD Assessment: SOB today, pt turned oxygen up to 9 liters from 7 liters. Ox sat around 75%, normally only around 90% Recommendation: HV today or ED Care team availability: July Diaz RNCM will have HV in about an hour Patient called back and aware of HV, she stated after nebulizer treatment ox sat went up to around 90% but the went back down to 75% She doesn't feel any worse , going to have lunch now. Advised if condition worsens before RNCM arrives to call 911 and go to ED. Gabby Zamarripa switch repairerManual Lathe Operator [facility] documented in this encounter Plan of Treatment Upcoming Encounters Date Type Department Care Team (Late st Contact Info) Description 04/15/2024 1:30 PM EDT Home Visit [facility], [facility] [address] [place] [address] July Diaz RN [address] [facility] [place] [address] 04/16/2024 2:00 PM EDT Scheduled Telephone [facility], [facility] [address] [place] [address] [facility], Nurse [facility] [address] [facility] [place] [address] 04/17/2024 12:00 PM EDT Scheduled Telephone [facility], [facility] [address] [place] [address] [facility] Nurse [facility] [address] [place] [address] 05/05/2024 10:30 AM EDT Office Visit Orthopaedics, [place] [address] [place] [address] Cholo Shah MD [address] [place] [address] 05/10/2024 10:30 AM EDT Office Visit Gynecology/Oncology, [place] [address] [place] [address] Jeanie Gunter PA-C [address], [place] [id number] 08/29/2024 11:00 AM EDT Office Visit Cardiology, [facility] [address] [facility] [place] [address] Shilpi Bailey PA-C 132 [facility] [address] 10/07/2024 11:50 AM EST Office Visit [place] [address] [place] [id number] Kat Hawthorne, [address] [place] [address] Scheduled Procedures Name Priority Associated Diagnoses Date/Ti [...] 05/27/2018, Additional history exists Mammogram 12/09/2024 12/09/2023, 11/11, 04/30/2022, Additional history exists Diabetic Eye Exam 03/10/2025 03/10/2024, , 01/30/2023, Additional history exists CKD HGB USE SMARTSET 70137 03/21/202503/21, 02/15/2024, 02/15/2024, Additional history exists CKD PHOS USE SMARTSET 77645 03/21/202503/09, 03/16/2023, 03/15/2023, Additional history exists Depression [...] this encounter Medical Devices Implanted Type Area Rehab Office Coordinator Device Identifier Shelf Expiration Date Model / Serial / Lot Cement Bone Simplex Hv & G - [id number] Implanted:Qty: 2 on 01/05/2023 by Harley Nguyen DO at OR [facility] Left: Knee [employer] : ORTH[employer]AED[employer] 06/08/2024 6195-1-010 / / [id number] Component Femoral Size 5 - [id number] Implanted:Qty: 1 on 01/05/2023 by Harley Nguyen DO at OR [facility] Left: Knee [employer] : ORTHOPA[employer] 08/09/2026 5510-F-501 / / [id number] Knee Tria Syetric X3 10x36 - [id number] Implanted:Qty: 1 on 01/05/2023 by Harley Nguyen DO at OR [facility] Left: Knee [employer] : ORTHOPAEDICS 09/24/2027 5550-G-360 -E / / [id number] Baseplate Tib 5 Knee - [id number] Implanted:Qty: 1 on 01/05/2023 by Harley Nguyen DO at OR [facility] Left: Knee [employer] : ORTHOPA[employer]ICS 12/14/2027 5521-B-500 / / [id number] Knee X3 Ins Pos Cs Sz5 9 - [id number] Implanted:Qty: 1 on 01/05/2023 by Harley Nguyen DO at OR [facility] Left: Knee [employer] : ORTHOPAED[employer] 11/19/2027 5531-G-509 -E / / [id number] Cement Bone Full Mix Surg Simp - [id number] Implanted:Qty: 1 on 03/03/2023 by Cholo Shah MD at OR [facility] Right: Knee [employer] : ORTHOPAEDICS 05/08/2025 6191-1-010 / / [id number] Knee Tib Comp Poly Krh 8 Lg - [id number] Implanted:Qty: 1 on 03/03/2023 by Cholo Shah MD at OR [facility] Right: Knee [employer] : ORTHOPAEDICS 07/19/2023 6485-2-308 / / [id number] Knee Hrhk Mod Rot Hng Bushing - [id number] Implanted:Qty: 1 on 03/03/2023 by Cholo Shah MD at OR [facility] Right: Knee [employer] : ORTHOPAEDICS 01/09/2027 6481-2-110 / / [id number] Knee Hrhk Mod Rot Hng Bushing - [id number] Implanted:Qty: 1 on 03/03/2023 by Cholo Shah MD at OR [facility] Right: Knee [employer] : ORTHOPAEDICS 11/21/2026 6481-2-110 / / [id number] Knee Stem Crv Mod Mrs 80u966 - [id number] Implanted:Qty: 1 on 03/03/2023 by Cholo Shah MD at OR [facility] Right: Knee [employer] : ORTHOPAEDICS 10/02/2026 6485-3-715 / / [id number] Tib Mrh Cross Bear Long Xs/Xl - [id number] Implanted:Qty: 1 on 03/03/2023 by Cholo Shah MD at OR [facility] Right: Knee [employer] : ORTHOPAEDICS 12/05/2025 6481-2-103 / / [id number] Knee Tib Bumper Rot Hng Nue - [id number] Implanted:Qty: 1 on 03/03/2023 by Cholo Shah MD at OR [facility] Right: Knee [employer] : ORTHOPAEDICS 07/15/2027 6481-2-130 / / [id number] Distal Femoral Component Implanted:Qty: 1 on 03/03/2023 by Cholo Shah MD at OR [facility] Right: Knee [employer] : ORTHOPAEDICS 08/23/2023 6495-2-040 / / [id number] Knee Axle Hrhk Rot Mod Hng - [id number] Implanted:Qty: 1 on 03/03/2023 by Cholo Shah MD at OR [facility] Right: Knee [employer] : ORTHOPAEDICS 06/30/2027 6481-2-120 / / [id number] Restrictors Med Cmnt H636-7568 - [id number] Implanted:Qty: 1 on 03/03/2023 by Cholo Shah MD at OR [facility] Right: Knee [employer] : ORTHOPAEDICS 11/18/2027 [id number] / / Cement Bone Full Mix Surg Simp - [id number] Implanted:Qty: 1 on 03/03/2023 by Cholo Shah MD at OR [facility] Right: Knee [employer] : ORTHOPAEDICS 07/09/2025 6191-1-010 / / [id number] Cement Bone Full Mix Surg Simp - [id number] Implanted:Qty: 1 on 03/03/2023 by Cholo Shah MD at OR [facility] Right: Knee [employer] : ORTHOPAEDICS 06/08/2025 6191-1-010 / / [id number] Cement Bone Full Mix Surg Simp - [id number] Implanted:Qty: 1 on 03/03/2023 by Cholo Shah MD at [facility] Right: Knee [employer] : ORTHOPAEDICS 05/08/2025 6191-1-010 / / [id number] Knee Fem Gmrs Dis Std R - [id number] Implanted:Qty: 1 on 03/10/2023 by Cholo Shah MD at [facility] Right: Knee [employer] : ORTHOPAEDICS 10/21/2027 6495-2-040 / / [id number] Knee Hrhk Mod Rot Hng Bushing - [id number] Implanted:Qty: 1 on 03/10/2023 by Cholo Shah MD at OR [facility] Right: Knee [employer] : ORTHOPAEDICS 01/29/2027 6481-2-110 / / [id number] Knee Axle Hrhk Rot Mod Hng - [id number] Implanted:Qty: 1 on 03/10/2023 by Cholo Shah MD at OR [facility] Right: Knee [employer] : ORTHOPAEDICS 09/15/2027 6481-2-120 / / [id number] Tib Mrh Cross Bear Long Xs/Xl - [id number] Implanted:Qty: 1 on 03/10/2023 by Cholo Shah MD at OR [facility] Right: Knee [employer] : ORTHOPAEDICS 09/30/2027 6481-2-103 / / [id number] Knee Hrhk Mod Rot Hng Bushing - [id number] Implanted:Qty: 1 on 03/10/2023 by Cholo Shah MD at [facility] Right: Knee [employer] : ORTHOPAEDICS 04/24/2027 6481-2-110 / / [id number] Knee Tib Bumper Rot Hng Nue - [id number] Implanted:Qty: 1 on 03/10/2023 by Cholo Shah MD at OR [facility] Right: Knee [employer] : ORTHOPAEDICS 10/15/2027 6481-2-130 / / [id number] documented as of this encounter Advance Directives Documents on File Type Date Recorded Patient Pullman Car Clerk Expl 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 Care Teams Pilling Machine Operator Relationship Specialty Start Date End Date Kat Hawthorne DO [address] [place] [address] PCP - General Family Medicine 08/20/22 documented as of this encounter
[2024-04-16] MEDS: cefTRIAXone SODIUM 2,000 MG/50 ML BAG IV SCH (17:09)
[2024-04-16] MEDS: AZITHROMYCIN 500 MG in DEXTROSE 5% 250 ML IV SCH (17:50)
[2024-04-16] MEDS: LANTUS PER UNIT CHARGE SC SCH (21:08)
[2024-04-16] MEDS: LORazepam 0.5 MG TAB PO PRN (21:10)
[2024-04-16] MEDS: INSULIN ASPART PER UNIT CHARGE SC SCH (23:50)
[2024-04-17 07:48] LABS: Basophils # (auto) 0.01 K/uL (0.00-0.20); Basophils % (auto) 0.2 %; Hemoglobin 8.1 g/dl (12.0-16.0); Immature Granulocytes % (auto) 2.1 %; Lymphocytes % (auto) 8.3 %; Mean Corpuscular Volume 93.4 fL (80.0-100.0); Mean Platelet Volume 10.7 fL (9.4-12.4); Monocytes # (auto) 0.28 K/uL (0.11-0.59); Monocytes % (auto) 5.8 %; Neutrophils # (auto) 4.02 K/uL (1.40-6.50); Neutrophils % (auto) 83.6 %; Nucleated RBC # (auto) 0.02 K/uL (0.00-0.12); Nucleated RBC % (auto) 0.4 %; Platelet Count 96 K/uL (130-400); RDW Coefficient of Variation 20.7 % (11.5-14.5); RDW Standard Deviation 71.5 fL (36.4-46.3); Red Blood Count 2.89 M/uL (4.20-5.40); White Blood Count 4.81 K/ul (4.8-10.8)
[2024-04-17 08:11] LABS: Polychromasia 1+; Stomatocytes 1+; Tear Drop Cells 1+
[2024-04-17 08:23] LABS: BUN Creatinine Ratio 41.8 (10-20); Calcium 9.2 mg/dl (8.6-10.3); Creatinine Clr Calc Pharmacy 68.5 ml/min; Est GFR (African American) 67.7 ml/min; Est GFR (Non-African American) 58.4 ml/min; Potassium 3.9 mmol/L (3.5-5.1)
[2024-04-17] MEDS: LANTUS PER UNIT CHARGE SC SCH (08:37)
[2024-04-17] MEDS: LIDOCAINE 5% 1 PATCH TD SCH (10:45)
--- NOTE | 2024-04-17 10:47 | Pulmonology Progress Note ---
Date of Service April 17, 2024 Assessment & Plan (1) Acute on chronic respiratory failure with hypoxia and hypercapnia: (2) Steroid dependent: (3) Hypersensitivity pneumonitis: (4) Pulmonary HTN: (5) BERRY (obstructive sleep apnea): (6) Interstitial lung disease: Plan HRCT 10/26/2023 personally reviewed: Increased reticular markings interstitial thickening appreciated bilateral upper and lower lobes More pronounced in the upper lobes, no honeycombing Hedge cheese appearance Minimal mediastinal and hilar lymphadenopathy 2D echo 11/04/2023: EF 55-60%, PASP 60-65 mmHg, mild to moderate TR, mild concentric LVH Chest x-ray 04/15/2024 personally reviewed: Portable film, poor inspiratory effort, patchy alveolar opacities appreciated bilaterally, increased cardiac silhouette ABG 04/16/2024: 7.29/93/78 on 60% -- Acute on chronic hypoxic hypercapnic respiratory failure Multifactorial Hypoxia: does have chronic fibrotic hypersensitive pneumonitis Does have pulmonary hypertension as well Hypercapnia. Noncompliance with BiPAP [facility] BNP 212 Respiratory bio fire negative for everything, procalcitonin 0.25 --ILD/& pneumonitis Seems to be fibrotic component Follow-up with ILD clinic at [place] Used to be on chronic prednisone, she stated that it has been tapered off and she has been off of prednisone for 2 days. She was taking 10 mg on a daily basis -- Pulmonary hypertension Type II-type III Continue with diuresis --Metabolic alkalosis Likely compensated due to chronic respiratory acidosis -- BERRY Patient has gotten BiPAP recently but there is some issue and she has not been using it Plan: Continue with steroids, decrease it to 40 mg twice daily. Repeat ABG in the morning. If the pH is greater than 7.4 then a dose of acetazolamide will be considered BiPAP with tidal volume target of around 400-450 mL backup respiratory rate of 16. Continue with inhaled bronchodilators. Continue with antibiotics Recommend diuretics to keep the patient negative balance, strict in and out Recommend case management involved to see if he can figure out what the issue with her BiPAP Please note the above document was generated using voice recognition software. It may contain grammatical, syntax or spelling errors.Any formal questions or concerns about the content, text or information contained within the body of this dictation should be directly addressed to the provider for clarification. Admission and Anticipated Discharge Date Admission Date: April 15, 2024 Subjective Patient seen and examined at bedside. No acute distress, nursing was overnight. She was saturating 93-94% on 8 L nasal cannula She was sitting on the chair. She stated she feeling much better compared to when she came to the hospital Denies any chest pain. Coughing up clear phlegm Appetite is fair. No nausea or vomiting Review of Systems 2 Review of Systems: All systems reviewed & are unremarkable except as noted in Subjective Physical Exam 2 Physical Exam: Constitutional: No acute distress HEENT: EOMI, PERRLA Respiratory system: Decreased air entry bilaterally, no wheeze, no rhonchi, positive Velcro-like crackles appreciated bilaterally CVS: S1-S2 positive, no murmurs or gallops, distant heart sounds Abdomen: Soft, nontender, nondistended, positive bowel sounds x4 Extremities: +2 pulses bilaterally radialis/ dorsalis pedis, no cyanosis, minimal pitting edema bilateral lower extremity Neuro: Awake alert oriented x3 Psych: Normal mood and affect G/U: Positive pure Wick catheter Skin: no rashes, warm and dry (Ecchymosis appreciated on the dorsal aspect of bilateral hands more on the ) Lymphatic: no cervical or axillary lymphadenopathy Results & Data Results & Data Vital Signs (Past 12 Hours) Vital Signs Temp Pulse Pulse Resp BP Pulse Ox O2 Del Method 04/17/24 09:43 Nasal Cannula 04/17/24 08:00 36.5 C 60 20 132/83 94 BiPAP 04/17/24 07:24 60 18 97 04/17/24 07:24 60 18 97 BiPAP 04/17/24 03:11 66 18 96 04/17/24 03:09 66 16 96 BiPAP 04/17/24 03:08 36.8 C 64 18 125/76 98 BiPAP 04/17/24 00:28 72 19 97 04/16/24 23:40 70 O2 Flow Rate FiO2 04/17/24 09:43 6 04/17/24 08:00 04/17/24 07:24 40 04/17/24 07:24 50 04/17/24 03:11 50 04/17/24 03:09 50 04/17/24 03:08 04/17/24 00:28 50 04/16/24 23:40 Laboratory Results 04/17/24 07:01 04/17/24 07:01 PG Care Time/CCT Total # of Minutes Spent Total Time Spent with Patient: Total time spent is greater than 50% in coordination of care (as documented) at patient's floor/unit and/or counseling patient: Coding Level of Care Code 62464 SUB INP/OBS CARE 3/50MIN Diagnoses Acute on chronic respiratory failure with hypoxia and hypercapnia J96.21; J96.22 Steroid dependent F19.20 Hypersensitivity pneumonitis J67.9 Pulmonary HTN I27.20 BERRY (obstructive sleep apnea) G47.33 Interstitial lung disease J84.9
--- NOTE | 2024-04-17 11:24 | XRay Report ---
RIGHT SHOULDER 3 VIEWS CLINICAL HISTORY: Right shoulder pain. FINDINGS: 3 views of the right shoulder are obtained. Correlation is made with chest x-ray dated 2023. The skeletal structures are osteopenic. There is no radiographic evidence of fracture or disloc ation. Productive degenerative change is noted at the acromioclavicular joint. Mild arthritic change is seen at the glenohumeral articulation. The overlying soft tissues are within normal limits. The he art is enlarged and pacemaker leads are partially imaged. Right-sided airspace opacities are again no elsa. IMPRESSION: 1. No acute bony abnormality is identified. 2. Cardiomegaly and right-sided airspace opacities are again noted and were better assessed on the re cent chest x-ray. Electronically signed by: Freddie Mae M.D. 04/17/2024 11:23 AM
--- NOTE | 2024-04-17 13:40 | Hospitalist Progress Note ---
Date of Service April 17, 2024 Assessment & Plan (1) Hypersensitivity pneumonitis: (2) Acute respiratory failure with hypoxia and hypercapnia: (3) Acute exacerbation of CHF (congestive heart failure): Plan: Patient is a 68-year-old female with past medical history of chronic hypersensitive pneumonitis on 6 to 7 L of oxygen by nasal cannula, paroxysmal atrial fibrillation/flutter, not on anticoagulation due to chronic anemia and GI bleeding, tachybradycardia syndrome status post pacemaker, chronic HFpEF, hypertension, liver cirrhosis with WEIR, morbid obesity presents with shortness of breath and increasing fatigue gradually starting in the last 7 days. Patient had completed tapering course of steroids 6 days prior to admission. Acute on chronic hypercapnic respiratory failure History of chronic hypersensitive pneumonitis Possible pneumonia Possible acute on chronic diastolic heart failure Patient presented with shortness of breath for 1 day; at baseline she is on 6 to 7 L of oxygen by nasal cannula; desaturating to 70% ABG on admission showed acute on chronic hypercapnic respiratory failure with pH of 7.29 and pCO2 of 90 mmHg Chest x-ray shows interstitial and alveolar opacities; similar to findings previously on cxr Respiratory viral panel negative Decrease IV methylprednisolone to 40 mg twice daily. Will continue on antibiotic for total of 5 days Continue diuresis with Lasix Continue BiPAP while sleeping Will need close follow-up with [facility] clinic as outpatient. Paroxysmal atrial fibrillation EKG on admission personally reviewed; normal sinus rhythm; QTc of 432 Continue sotalol BID, not on anticoagulation due to h/o GI bleed Telemonitoring Mood disorder Continue Zoloft, Ativan BID SSS S/p pacemaker placement H/o hemolytic anemia baseline 9-10).Previously on prednisone for same. Currently off steroid. Started on methylprednisolone NAFLD cirrhosis Appears compensated, continue low sodium diet BERRY Intolerant to CPAP, uses supplemental O2 at home. Continue bipap for now Hx of ESBL E coli UTI Continue Fosfomycin suppression qweekly (takes on Sundays) Type 2 DM HbA1c of 6.9% last admission SSI while in-patient Discussed lifestyle interventions; Oral hypoglycemic agents could be considered as outpatient I discussed goals of care with patient and patient's brother at bedside at the time of admission. They both acknowledge patient's gradual decline in her health and respiratory status for the last several months. They will want to continue medical intervention for the time being. They both agree that she would not benefit from mechanical ventilation and CPR. DVT prophylaxis heparin DNR/DNI Time spent evaluating patient, direct bedside care, chart review, placing orders, interpretation of diagnostic studies, discussion with consultants, patient, and family members, as well as other required patient management activities is 50 minutes Please note the above document was generated using voice recognition software. It may contain grammatical, syntax or spelling errors. Any formal questions or concerns about the content, text or information contained within the body of this dictation should be directly addressed to the provider for clarification Admission and Anticipated Discharge Date Admission Date: April 15, 2024 Subjective Seen and examined at bedside. She is sitting up on the chair comfortably; not in distress. Her oxygen requirement has decreased to 8 to 10 L by high flow nasal cannula She reports that she is feeling better. Review of Systems Review of Systems: All systems reviewed & are unremarkable except as noted in Subjective Physical Exam Physical Exam: Constitutional: Alert, oriented x 3; appears tired. Comfortable on BiPAP Respiratory: Bilateral crackles heard in all lower lung base Cardiovascular: RRR, no murmur, no edema Vessels: no JVD or carotid bruit Abdomen: normal bowel sounds, soft, nontender, no hepatosplenomegaly Musculoskeletal: no cyanosis or clubbing, extremities motor strength 5/5 Skin: Multiple bruises all over her extremities. Trace pitting edema in bilateral lower extremity Neurologic: PERRL, EOMI, accommodation nl, no face palsy, no dysarthria CN's II- XI intact bilaterally and moves all extremities Psychiatric: A+Ox3, euthymic affect Results & Data Results & Data Vital Signs (Past 12 Hours) Vital Signs Temp Pulse Pulse Resp BP Pulse Ox Pulse Ox 04/17/24 11:54 36.7 C 74 20 129/73 96 04/17/24 11:51 36.5 C 63 18 141/66 H 95 04/17/24 11:35 78 18 97 04/17/24 10:00 91 04/17/24 09:43 04/17/24 08:00 36.5 C 60 20 132/83 94 04/17/24 07:24 60 18 97 04/17/24 07:24 60 18 97 04/17/24 03:11 66 18 96 04/17/24 03:09 66 16 96 04/17/24 03:08 36.8 C 64 18 125/76 98 O2 Del Method O2 Del Method O2 Flow Rate O2 Flow Rate FiO2 04/17/24 11:54 Nasal Cannula 04/17/24 11:51 Nasal Cannula 04/17/24 11:35 Nasal Cannula 8 04/17/24 10:00 High Flow Nasal Cannula 7 04/17/24 09:43 Nasal Cannula 6 04/17/24 08:00 BiPAP 04/17/24 07:24 40 04/17/24 07:24 BiPAP 50 04/17/24 03:11 50 04/17/24 03:09 BiPAP 50 04/17/24 03:08 BiPAP
--- NOTE | 2024-04-17 14:34 | Pharmacy Report ---
Pharmacy Glycemic Short Note 2 - Date of Service April 17, 2024 - Glycemic Short BSG Results (Last 24 hours): 04/16/24 04/16/24 04/16/24 16:25 20:12 23:44 Glucose POC Glucose 148 H 251 H 201 H 04/17/24 04/17/24 04/17/24 04:25 07:01 07:27 Glucose 155 H POC Glucose 203 H 169 H 04/17/24 11:16 Glucose POC Glucose 212 H OUTPATIENT ANTIDIABETIC REGIMEN: * None * A1c = 6.9% (03/16/24) ASSESSMENT: * Orin is a 68 yo T2DM admitted with acute on chronic hypoxic hypercapnic respiratory failure. She has been started on IV antibiotics and IV steroids. * Patient received a total of 70 units of insulin yesterday with poor glycemic control; 30 units basal + 40 units bolus. * Fasting BSG of 169 mg/dL this morning - above goal, however, significantly improved from 257 mg/dL. Will continue to dose Lantus per BSG scale. * Persistent post prandial BSG elevation. Tightened Novolog parameters further today. Solu medrol IV decreased from TID to BID. PLAN FOR INPATIENT GLYCEMIC CONTROL: * Hold outpatient oral diabetes medications * Basal insulin * Lantus 10-5-20 units SQ BID * Bolus insulin * NovoLog per scale ACHS or Q6hrs while NPO * Goal Range: Low 120 mg/dL - High 150 mg/dL * Correction Factor: 15 mg/dL/unit * Nutritional / Prandial insulin per carb ratio of 1 unit per 3 grams CHO consumed
[2024-04-17] MEDS: methylPREDNISolone 40 MG in SYRINGE 0 ML IV SCH (21:07)
[2024-04-18 06:49] LABS: Hematocrit (blood only) 30.7 % (37.0-47.0); Hemoglobin 9.1 g/dl (12.0-16.0); Immature Granulocytes # (auto) 0.13 K/uL (0.01-0.20); Immature Granulocytes % (auto) 1.9 %; Lymphocytes # (auto) 0.51 K/uL (1.20-3.40); Lymphocytes % (auto) 7.4 %; Mean Corpuscular Hemoglobin 27.7 pg (25.0-34.0); Mean Corpuscular Hgb Conc 29.6 g/dL (32.0-36.0); Mean Corpuscular Volume 93.6 fL (80.0-100.0); Mean Platelet Volume 11.8 fL (9.4-12.4); Monocytes # (auto) 0.35 K/uL (0.11-0.59); Monocytes % (auto) 5.1 %; Neutrophils # (auto) 5.94 K/uL (1.40-6.50); Neutrophils % (auto) 85.6 %; Nucleated RBC # (auto) 0.03 K/uL (0.00-0.12); Nucleated RBC % (auto) 0.4 %; Platelet Count 124 K/uL (130-400); RDW Coefficient of Variation 21.2 % (11.5-14.5); RDW Standard Deviation 73.5 fL (36.4-46.3); Red Blood Count 3.28 M/uL (4.20-5.40); White Blood Count 6.93 K/ul (4.8-10.8)
[2024-04-18 07:02] LABS: Base Excess ABG 12.1 mEq/L (-9-1.8); HCO3 ABG 40 mmol/L (19-24); PCO2 ABG 66 mmHg (35-46); PO2 ABG 57 mmHg (80-95); pH ABG 7.39 (7.35-7.45)
[2024-04-18 07:15] LABS: Anisocytosis Present; Polychromasia 1+; Stomatocytes 1+; Tear Drop Cells 1+
[2024-04-18 07:32] LABS: Allen Test Pos (Pos); Oxygen Saturation ABG 87.8 % (90-95)
[2024-04-18 07:40] LABS: Calcium 9.4 mg/dl (8.6-10.3); Creatinine Clr Calc Pharmacy 57.9 ml/min; Est GFR (African American) 55.8 ml/min; Est GFR (Non-African American) 48.2 ml/min; Potassium 4.1 mmol/L (3.5-5.1)
--- NOTE | 2024-04-18 10:32 | Pulmonology Progress Note ---
Date of Service April 18, 2024 Assessment & Plan (1) Acute on chronic respiratory failure with hypoxia and hypercapnia: (2) Steroid dependent: (3) Hypersensitivity pneumonitis: (4) Pulmonary HTN: (5) BERRY (obstructive sleep apnea): (6) Interstitial lung disease: Plan HRCT 10/26/2023 personally reviewed: Increased reticular markings interstitial thickening appreciated bilateral upper and lower lobes More pronounced in the upper lobes, no honeycombing Hedge cheese appearance Minimal mediastinal and hilar lymphadenopathy 2D echo 11/04/2023: EF 55-60%, PASP 60-65 mmHg, mild to moderate TR, mild concentric LVH Chest x-ray 04/15/2024 personally reviewed: Portable film, poor inspiratory effort, patchy alveolar opacities appreciated bilaterally, increased cardiac silhouette ABG 04/16/2024: 7.29/93/78 on 60% -- Acute on chronic hypoxic hypercapnic respiratory failure Multifactorial Hypoxia: does have chronic fibrotic hypersensitive pneumonitis Does have pulmonary hypertension as well Hypercapnia. Noncompliance with BiPAP [facility] BNP 212 Respiratory bio fire negative for everything, procalcitonin 0.25 --ILD/hypersensitive pneumonitis Seems to be fibrotic component Follow-up with [facility] clinic at [place] Used to be on chronic prednisone, she stated that it has been tapered off and she has been off of prednisone for 2 days. She was taking 10 mg on a daily basis -- Pulmonary hypertension Type II-type III Continue with diuresis --Metabolic alkalosis Likely compensated due to chronic respiratory acidosis -- BERRY Patient has gotten BiPAP recently but there is some issue and she has not been using it Plan: Decrease Solu-Medrol to 40 mg daily. Give acetazolamide 250 mg IV 1 dose today given the pH was 7.39 today. BiPAP with tidal volume target of around 400-450 mL backup respiratory rate of 16. Continue with inhaled bronchodilators. On discharge would recommend 40 mg of prednisone for 5 days then 20 mg for 5 days, and then 10 mg till she sees her sweatband separator/ILD clinic Continue with antibiotics Recommend diuretics to keep the patient negative balance, strict in and out Case discussed with primary team No further recommendation from pulmonary perspective, will sign off Please call directly with any questions Please note the above document was generated using voice recognition software. It may contain grammatical, syntax or spelling errors.Any formal questions or concerns about the content, text or information contained within the body of this dictation should be directly addressed to the provider for clarification. Admission and Anticipated Discharge Date Admission Date: April 15, 2024 Subjective Patient seen and examined at bedside. No acute distress, no adverse events overnight She uses BiPAP at night. She was saturating 100% while getting nebulizer treatment She slept well with the BiPAP. Denies any cough, shortness of breath is improved No headache or blurry vision Fair appetite, no nausea vomiting Review of Systems 2 Review of Systems: All systems reviewed & are unremarkable except as noted in Subjective Physical Exam 2 Physical Exam: Constitutional: No acute distress HEENT: EOMI, PERRLA Respiratory system: Decreased air entry bilaterally, no wheeze, no rhonchi, positive faint Velcro-like crackles appreciated bilaterally CVS: S1-S2 positive, no murmurs or gallops, distant heart sounds Abdomen: Soft, nontender, nondistended, positive bowel sounds x4 Extremities: +2 pulses bilaterally radialis/ dorsalis pedis, no cyanosis, minimal pitting edema bilateral lower extremity Neuro: Awake alert oriented x3 Psych: Normal mood and affect G/U: Positive pure Wick catheter Skin: no rashes, warm and dry (Ecchymosis appreciated on the dorsal aspect of bilateral hands more on the ) Lymphatic: no cervical or axillary lymphadenopathy Results & Data Results & Data Vital Signs (Past 12 Hours) Vital Signs Temp Pulse Pulse Resp BP Pulse Ox O2 Del Method 04/18/24 07:22 66 18 87 L Nasal Cannula 04/18/24 07:14 36.5 C 66 20 134/83 90 High Flow Nasal Cannula 04/18/24 03:43 36.5 C 61 20 142/76 H 92 BiPAP 04/18/24 03:09 63 17 93 04/18/24 03:08 63 17 93 BiPAP 04/17/24 23:48 36.4 C L 61 21 132/76 91 BiPAP 04/17/24 23:24 65 20 97 BiPAP 04/17/24 23:20 65 20 97 O2 Flow Rate FiO2 04/18/24 07:22 8 04/18/24 07:14 04/18/24 03:43 04/18/24 03:09 45 04/18/24 03:08 45 04/17/24 23:48 04/17/24 23:24 45 04/17/24 23:20 45 Laboratory Results 04/18/24 06:32 04/18/24 06:32 PG Care Time/CCT Total # of Minutes Spent Total Time Spent with Patient: Total time spent is greater than 50% in coordination of care (as documented) at patient's floor/unit and/or counseling patient: Coding Level of Care Code 03987 SUB INP/OBS CARE 2/35MIN Diagnoses Acute on chronic respiratory failure with hypoxia and hypercapnia J96.21; J96.22 Steroid dependent F19.20 Hypersensitivity pneumonitis J67.9 Pulmonary HTN I27.20 BERRY (obstructive sleep apnea) G47.33 Interstitial lung disease J84.9
[2024-04-18] MEDS: acetaZOLAMIDE 250 MG in SYRINGE 0 ML IV ONE (14:33)
--- NOTE | 2024-04-18 14:55 | Pharmacy Report ---
Pharmacy Glycemic Short Note 2 - Date of Service April 18, 2024 - Glycemic Short BSG Results (Last 24 hours): 04/17/24 04/17/24 04/18/24 16:08 20:48 06:32 Glucose 159 H POC Glucose 89 166 H 04/18/24 04/18/24 07:12 11:06 Glucose POC Glucose 172 H 129 H OUTPATIENT ANTIDIABETIC REGIMEN: * None * A1c = 6.9% (03/16/24) ASSESSMENT: 04/18 * Patient received total of 74 units of insulin yesterday of which 30 units were basal * Fasting BSG 159 mg/dL - continue with Lantus 15 units this AM * Steroids now changing to once daily, will scale back on basal and keep just AM basal for now * Loosened CF/CR slightly 04/17 * Orin is a 68 yo T2DM admitted with acute on chronic hypoxic hypercapnic respiratory failure. She has been started on IV antibiotics and IV steroids. * Patient received a total of 70 units of insulin yesterday with poor glycemic control; 30 units basal + 40 units bolus. * Fasting BSG of 169 mg/dL this morning - above goal, however, significantly improved from 257 mg/dL. Will continue to dose Lantus per BSG scale. * Persistent post prandial BSG elevation. Tightened Novolog parameters further today. Solu medrol IV decreased from TID to BID. PLAN FOR INPATIENT GLYCEMIC CONTROL: * Hold outpatient oral diabetes medications * Basal insulin * Lantus 15 units daily * Bolus insulin * NovoLog per scale ACHS or Q6hrs while NPO * Goal Range: Low 120 mg/dL - High 150 mg/dL * Correction Factor: 20 mg/dL/unit * Nutritional / Prandial insulin per carb ratio of 1 unit per 7 grams CHO consumed
--- NOTE | 2024-04-18 14:58 | Hospitalist Progress Note ---
Date of Service April 18, 2024 Assessment & Plan (1) Hypersensitivity pneumonitis: (2) Acute respiratory failure with hypoxia and hypercapnia: (3) Acute exacerbation of CHF (congestive heart failure): Plan: Patient is a 68-year-old female with past medical history of chronic hypersensitive pneumonitis on 6 to 7 L of oxygen by nasal cannula, paroxysmal atrial fibrillation/flutter, not on anticoagulation due to chronic anemia and GI bleeding, tachybradycardia syndrome status post pacemaker, chronic HFpEF, hypertension, liver cirrhosis with WEIR, morbid obesity presents with shortness of breath and increasing fatigue gradually starting in the last 7 days. Patient had completed tapering course of steroids 6 days prior to admission. Acute on chronic hypercapnic respiratory failure History of chronic hypersensitive pneumonitis Possible pneumonia Possible acute on chronic diastolic heart failure Patient presented with shortness of breath for 1 day; at baseline she is on 6 to 7 L of oxygen by nasal cannula; desaturating to 70% ABG on admission showed acute on chronic hypercapnic respiratory failure with pH of 7.29 and pCO2 of 90 mmHg Chest x-ray shows interstitial and alveolar opacities; similar to findings previously on cxr Respiratory viral panel negative Decrease IV methylprednisolone to 40 mg once daily. Will continue on antibiotic for total of 5 days One dose of acetazolamide ordered as per pulmonology recommendation. continue home bumex. Continue BiPAP while sleeping Will need close follow-up with [facility] clinic as outpatient. Kae STACY from IL[facility] clinic updated. Patient was seen by her in February 2024. PT OT ordered Paroxysmal atrial fibrillation EKG on admission personally reviewed; normal sinus rhythm; QTc of 432 Continue sotalol BID, not on anticoagulation due to h/o GI bleed Telemonitoring Mood disorder Continue Zoloft, Ativan BID SSS S/p pacemaker placement H/o hemolytic anemia baseline 9-10).Previously on prednisone for same. Currently off steroid. Started on methylprednisolone NAFLD cirrhosis Appears compensated, continue low sodium diet BERRY Intolerant to CPAP, uses supplemental O2 at home. Continue bipap for now Hx of ESBL E coli UTI Continue Fosfomycin suppression qweekly (takes on Sundays) Type 2 DM HbA1c of 6.9% last admission SSI while in-patient Discussed lifestyle interventions; Oral hypoglycemic agents could be considered as outpatient I discussed goals of care with patient and patient's brother at bedside at the time of admission. They both acknowledge patient's gradual decline in her health and respiratory status for the last several months. They will want to continue medical intervention for the time being. They both agree that she would not benefit from mechanical ventilation and CPR. DVT prophylaxis heparin DNR/DNI Time spent evaluating patient, direct bedside care, chart review, placing orders, interpretation of diagnostic studies, discussion with consultants, patient, and family members, as well as other required patient management activities is 50 minutes Please note the above document was generated using voice recognition software. It may contain grammatical, syntax or spelling errors. Any formal questions or concerns about the content, text or information contained within the body of this dictation should be directly addressed to the provider for clarification Admission and Anticipated Discharge Date Admission Date: April 15, 2024 Subjective Patient seen and examined at bedside She is comfortably sitting up on the chair at the side of the bed Oxygen requirement of 13 to 15 L of oxygen by nasal cannula No significant event overnight Review of Systems Review of Systems: All systems reviewed & are unremarkable except as noted in Subjective Physical Exam Physical Exam: Constitutional: Alert, oriented x 3; appears tired. Comfortable on BiPAP Respiratory: Bilateral crackles heard in all lower lung base Cardiovascular: RRR, no murmur, no edema Vessels: no JVD or carotid bruit Abdomen: normal bowel sounds, soft, nontender, no hepatosplenomegaly Musculoskeletal: no cyanosis or clubbing, extremities motor strength 5/5 Skin: Multiple bruises all over her extremities. Trace pitting edema in bilateral lower extremity Neurologic: PERRL, EOMI, accommodation nl, no face palsy, no dysarthria CN's II- XI intact bilaterally and moves all extremities Psychiatric: A+Ox3, euthymic affect Results & Data Results & Data Vital Signs (Past 12 Hours) Vital Signs Temp Pulse Pulse Resp BP Pulse Ox O2 Del Method 04/18/24 14:39 36.4 C L 65 18 129/75 98 High Flow Nasal Cannula 04/18/24 11:15 75 18 97 Nasal Cannula 04/18/24 11:09 36.4 C L 63 18 120/65 99 High Flow Nasal Cannula 04/18/24 07:30 Nasal Cannula, BiPAP, High Flow Nasal Cannula 04/18/24 07:22 66 18 87 L Nasal Cannula 04/18/24 07:14 36.5 C 66 20 134/83 90 High Flow Nasal Cannula 04/18/24 03:43 36.5 C 61 20 142/76 H 92 BiPAP 04/18/24 03:09 63 17 93 04/18/24 03:08 63 17 93 BiPAP O2 Flow Rate FiO2 04/18/24 14:39 12 04/18/24 11:15 15 04/18/24 11:09 15 04/18/24 07:30 8 04/18/24 07:22 8 04/18/24 07:14 04/18/24 03:43 04/18/24 03:09 45 04/18/24 03:08 45
[2024-04-19 08:07] LABS: Hematocrit (blood only) 32.3 % (37.0-47.0); Hemoglobin 9.5 g/dl (12.0-16.0); Mean Corpuscular Hemoglobin 27.7 pg (25.0-34.0); Mean Corpuscular Hgb Conc 29.4 g/dL (32.0-36.0); Mean Corpuscular Volume 94.2 fL (80.0-100.0); Mean Platelet Volume 11.7 fL (9.4-12.4); Nucleated RBC # (auto) 0.06 K/uL (0.00-0.12); Nucleated RBC % (auto) 0.8 %; Platelet Count 153 K/uL (130-400); RDW Coefficient of Variation 21.7 % (11.5-14.5); RDW Standard Deviation 75.7 fL (36.4-46.3); Red Blood Count 3.43 M/uL (4.20-5.40); White Blood Count 7.59 K/ul (4.8-10.8)
[2024-04-19 08:18] LABS: BUN Creatinine Ratio 37.8 (10-20); Calcium 10.2 mg/dl (8.6-10.3); Creatinine Clr Calc Pharmacy 60.5 ml/min; Est GFR (African American) 58.3 ml/min; Est GFR (Non-African American) 50.3 ml/min
[2024-04-19 08:37] LABS: Anisocytosis Present; Basophilic Stippling 1+; Basophils # (auto) 0.02 K/uL (0.00-0.20); Basophils % (auto) 0.3 %; Eosinophils # (auto) 0.09 K/uL (0.00-0.50); Eosinophils % (auto) 1.2 %; Hypogranular Neutrophils 1+; Immature Granulocytes # (auto) 0.12 K/uL (0.01-0.20); Immature Granulocytes % (auto) 1.6 %; Lymphocytes # (auto) 1.29 K/uL (1.20-3.40); Monocytes # (auto) 0.75 K/uL (0.11-0.59); Monocytes % (auto) 9.9 %; Neutrophils # (auto) 5.32 K/uL (1.40-6.50); Polychromasia 2+; Stomatocytes 1+; Tear Drop Cells 1+
[2024-04-19] MEDS: methylPREDNISolone 40 MG in SYRINGE 0 ML IV SCH (09:17)
[2024-04-19] MEDS: BUMETANIDE 1 MG TAB PO SCH (09:19)
[2024-04-19] MEDS: LANTUS PER UNIT CHARGE SC SCH (09:23)
[2024-04-19] MEDS: ACETAMINOPHEN 325 MG TAB PO PRN (14:25)
--- NOTE | 2024-04-19 14:36 | Hospitalist Progress Note ---
Date of Service April 19, 2024 Assessment & Plan (1) Hypersensitivity pneumonitis: (2) Acute respiratory failure with hypoxia and hypercapnia: (3) Acute exacerbation of CHF (congestive heart failure): Plan: Patient is a 68-year-old female with past medical history of chronic hypersensitive pneumonitis on 6 to 7 L of oxygen by nasal cannula, paroxysmal atrial fibrillation/flutter, not on anticoagulation due to chronic anemia and GI bleeding, tachybradycardia syndrome status post pacemaker, chronic HFpEF, hypertension, liver cirrhosis with WEIR, morbid obesity presents with shortness of breath and increasing fatigue gradually starting in the last 7 days. Patient had completed tapering course of steroids 6 days prior to admission. Acute on chronic hypercapnic respiratory failure History of chronic hypersensitive pneumonitis Possible pneumonia Possible acute on chronic diastolic heart failure Patient presented with shortness of breath for 1 day; at baseline she is on 6 to 7 L of oxygen by nasal cannula; desaturating to 70% ABG on admission showed acute on chronic hypercapnic respiratory failure with pH of 7.29 and pCO2 of 90 mmHg Chest x-ray shows interstitial and alveolar opacities; similar to findings previously on cxr Respiratory viral panel negative Decrease IV methylprednisolone to 40 mg once daily.At discharge; pulmonology recommends 40 mg prednisone for 5 days, 20 mg for 5 days and then 10 mg until patient sees pulmonology/allergy clinic. Home BiPAP reviewed by respiratory therapist seen patient. Patient was able to tolerate her home BiPAP in the hospital. Discussed with her outpatient ILD provider for follow-up. Patient to have a close follow-up next week after discharge Wean oxygen as tolerated Plan to treat with antibiotics for total of 5 days Paroxysmal atrial fibrillation EKG on admission personally reviewed; normal sinus rhythm; QTc of 432 Continue sotalol BID, not on anticoagulation due to h/o GI bleed Telemonitoring Mood disorder Continue Zoloft, Ativan BID SSS S/p pacemaker placement H/o hemolytic anemia baseline 9-10).Previously on prednisone for same. Currently off steroid. Started on methylprednisolone NAFLD cirrhosis Appears compensated, continue low sodium diet BERRY Intolerant to CPAP, uses supplemental O2 at home. Hx of ESBL E coli UTI Continue Fosfomycin suppression qweekly (takes on Sundays) Type 2 DM HbA1c of 6.9% last admission SSI while in-patient Discussed lifestyle interventions; Oral hypoglycemic agents could be considered as outpatient I discussed goals of care with patient and patient's brother at bedside at the time of admission. They both acknowledge patient's gradual decline in her health and respiratory status for the last several months. They will want to continue medical intervention for the time being. They both agree that she would not benefit from mechanical ventilation and CPR. DVT prophylaxis heparin DNR/DNI Dispositionpatient's oxygen requirement downtrending; she is getting closer to her baseline of 6 to 7 L at rest. Possible discharge in a.m. depending on clinical improvement. She needs close follow-up with pulmonology[facility] Time spent evaluating patient, direct bedside care, chart review, placing orders, interpretation of diagnostic studies, discussion with consultants, patient, and family members, as well as other required patient management activities is 50 minutes Please note the above document was generated using voice recognition software. It may contain grammatical, syntax or spelling errors. Any formal questions or concerns about the content, text or information contained within the body of this dictation should be directly addressed to the provider for clarification Admission and Anticipated Discharge Date Admission Date: April 15, 2024 Subjective Patient seen and examined at bedside. She reports that she is feeling much better Oxygen requirement has improved No significant events overnight Review of Systems Review of Systems: All systems reviewed & are unremarkable except as noted in Subjective Physical Exam Physical Exam: Constitutional: Alert, oriented x 3; appears tired. Comfortable on BiPAP Respiratory: Bilateral crackles heard in lower lung bases Cardiovascular: RRR, no murmur, no edema Vessels: no JVD or carotid bruit Abdomen: normal bowel sounds, soft, nontender, no hepatosplenomegaly Musculoskeletal: no cyanosis or clubbing, extremities motor strength 5/5 Skin: Multiple bruises all over her extremities. Trace pitting edema in bilateral lower extremity Neurologic: PERRL, EOMI, accommodation nl, no face palsy, no dysarthria CN's II- XI intact bilaterally and moves all extremities Psychiatric: A+Ox3, euthymic affect Results & Data Results & Data Vital Signs (Past 12 Hours) Vital Signs Temp Pulse Resp BP Pulse Ox O2 Del Method O2 Flow Rate 04/19/24 11:17 36.5 C 65 19 124/76 92 Nasal Cannula 04/19/24 11:03 61 18 93 Nasal Cannula 04/19/24 07:33 36.5 C 63 17 137/71 96 Nasal Cannula 24 07:27 High Flow Nasal Cannula 10 04/19/24 07:15 71 18 92 Nasal Cannula 04/19/24 03:08 36.4 C L 60 18 121/70 93 BiPAP 04/19/24 02:48 6 04/19/24 02:47 79 18 90 CPAP 6
[2024-04-19] MEDS: ADVANCED PROBIOTIC 625 MG CAPSULE PO SCH (23:22)
[2024-04-20 07:31] LABS: Hematocrit (blood only) 26.8 % (37.0-47.0); Mean Corpuscular Hemoglobin 27.5 pg (25.0-34.0); Mean Corpuscular Hgb Conc 29.9 g/dL (32.0-36.0); Mean Corpuscular Volume 92.1 fL (80.0-100.0); Mean Platelet Volume 10.7 fL (9.4-12.4); Nucleated RBC # (auto) 0.04 K/uL (0.00-0.12); Nucleated RBC % (auto) 0.7 %; Platelet Count 112 K/uL (130-400); RDW Coefficient of Variation 21.2 % (11.5-14.5); Red Blood Count 2.91 M/uL (4.20-5.40); White Blood Count 5.91 K/ul (4.8-10.8)
[2024-04-20 07:49] LABS: BUN Creatinine Ratio 38.5 (10-20); Calcium 9.7 mg/dl (8.6-10.3); Creatinine Clr Calc Pharmacy 64.5 ml/min; Est GFR (Non-African American) 54.4 ml/min; Potassium 3.5 mmol/L (3.5-5.1)
[2024-04-20 07:56] LABS: ALC (manual) 0.89 K/uL (1.2-3.4); ANC (manual) 4.73 K/uL (1.4-6.5); Basophils # (manual) 0.06 K/uL (0-0.2); Basophils % (manual) 1 %; Hypochromasia Present; Lymphocytes # (manual) 0.89 K/uL (1.2-3.4); Lymphocytes % (manual) 15 %; Monocytes # (manual) 0.24 K/uL (0.11-0.59); Monocytes % (manual) 4 %; Neutrophils # (manual) 4.73 K/uL (1.40-6.50); Neutrophils % (manual) 80 %; Polychromasia 1+; Stomatocytes 2+; Tear Drop Cells 1+
--- NOTE | 2024-04-20 09:04 | Pharmacy Report ---
Pharmacy Glycemic Short Note 2 - Date of Service April 20, 2024 - Glycemic Short BSG Results (Last 24 hours): 04/19/24 04/19/24 04/19/24 11:46 17:13 20:18 Glucose POC Glucose 186 H 161 H 126 H 04/20/24 04/20/24 07:00 07:28 Glucose 129 H POC Glucose 136 H OUTPATIENT ANTIDIABETIC REGIMEN: * None * A1c = 6.9% (03/16/24) ASSESSMENT: 04/19 * Blood sugars reasonably controlled yesterday w/ high of 186 mg/dL at lunchtime * Received 40 units of insulin (15 units of basal and 25 units of bolus) * Carb ratio tightened yesterday and lunchtime and will continue * Remains on Solu-medrol 40 mg IV daily 04/18 * Patient received total of 74 units of insulin yesterday of which 30 units were basal * Fasting BSG 159 mg/dL - continue with Lantus 15 units this AM * Steroids now changing to once daily, will scale back on basal and keep just AM basal for now * Loosened CF/CR slightly 04/17 * Orin is a 68 yo T2DM admitted with acute on chronic hypoxic hypercapnic respiratory failure. She has been started on IV antibiotics and IV steroids. * Patient received a total of 70 units of insulin yesterday with poor glycemic control; 30 units basal + 40 units bolus. * Fasting BSG of 169 mg/dL this morning - above goal, however, significantly improved from 257 mg/dL. Will continue to dose Lantus per BSG scale. * Persistent post prandial BSG elevation. Tightened Novolog parameters further today. Solu medrol IV decreased from TID to BID. PLAN FOR INPATIENT GLYCEMIC CONTROL: * Hold outpatient oral diabetes medications * Basal insulin * Lantus 15 units daily * Bolus insulin * NovoLog per scale ACHS or Q6hrs while NPO * Goal Range: Low 120 mg/dL - High 150 mg/dL * Correction Factor: 20 mg/dL/unit * Nutritional / Prandial insulin per carb ratio of 1 unit per 6 grams CHO consumed
--- NOTE | 2024-04-20 11:08 | Discharge Summary ---
Date of Service April 20, 2024 Admission HPI Per Admitting Provider Patient was recently hospitalized in March; was arranged for ASV at the time of the discharge. Patient followed up with her primary care doctor; her Bumex dose was decreased once a day. She has not been able to follow-up with [facility] clinic since her last discharge She completed her tapering course of steroid 6 days back; she was on steroid since October of last year. She reports that she has been feeling worse since last several days; which coincided with stopping her steroid. Her oxygen saturation were reading around 75% on baseline oxygen. Patient called [facility] at home who recommended patient to go to the emergency department. She denies cough, fever, chills, sore throat chest pain or abdominal pain She reported increasing tiredness and fatigue. She also reports pain on her right shoulder during range of motion. On presentation to the ED, patient was normotensive afebrile. She was pale and tired; was placed on BiPAP. Her ABG revealed acute on chronic hypercapnic respiratory failure with pH of 7. 29 and pCO2 of 90 mmHg. BNP was 212. BUN/creatinine within normal limits Chest x-ray personally reviewed; stable appearance of interstitial and alveolar opacities. Patient was referred for admission Patient was referred for admission Principal Diagnosis Acute on chronic hypoxic and hypercarbic respiratory failure in the setting of chronic interstitial lung disease Discharge Exam Constitutional: Alert HEENT: Mucous membranes moist. Lungs: Clear to auscultation, decreased, overall fairly good airflow considering her interstitial lung disease CV: S1-S2, regular Abdomen: Soft, nontender, nondistended Extremities: No significant edema Neuro: No focal deficits Psych: Cooperative, normal mood Discharge Data Allergies Allergy/AdvReac Type Severity Reaction Status Date / Time levofloxacin Allergy Intermediate LE Verified 03/22/24 10:18 swelling and blistering paclitaxel [From Taxol] Allergy Intermediate facial Verified 03/22/24 10:18 flushing, bradycardia doxorubicin AdvReac Severe Hypoxia Verified 03/22/24 10:18 clindamycin AdvReac Intermediate PT Verified 03/22/24 10:18 CONTRACTED C-DIFF shellfish derived AdvReac Intermediate NAUSEA,DIARRHEA, Verified 03/22/24 10:18 VOMITING adhesive AdvReac Mild SKIN Verified 03/22/24 10:18 BLISTERS SOME TIMES Consultations 04/15/24 16:51 ED Decision to Admit Stat 04/16/24 08:00 Consult Pulmonology Routine Ordered Studies Reviewed pertinent studies Hospital Course (1) Hypersensitivity pneumonitis: (2) Acute respiratory failure with hypoxia and hypercapnia: (3) Acute exacerbation of CHF (congestive heart failure): Plan Patient was admitted to the hospital. She is supported with oxygen. She is placed on IV steroids and nebulizer treatments. Pulmonary consultation was obtained who agreed with the current treatment and recommended prolonged steroid taper. She was also diuresed with some additional IV diuretics. Through the course of her hospitalization her acute respiratory failure and acute shortness of breath rapidly improved. She was titrated down to her usual oxygen. On the day of discharge patient reports that she is at her baseline chronic shortness of breath with activity. Care management was involved in her care we have coordinated for her to have home health care and to have televisits with interstitial lung clinic at [employer]. Otherwise she can transition to oral medications. And be discharged home with outpatient follow-up as coordinate. Home Health Attestation I certify that this patient is under my care and that I, or a physicians management assistant working with me, had a face to-face encounter that meets the home health [id number] encounter requirements with this patient. The encounter with the patient was in whole, or in part, for the following medical condition, which is the primary reason for home health care (list medical condition): I certify that, based on my findings, the following services are medically necessary home health services: My clinical findings support the need for the above services because: Further, I certify that my clinical findings support that this patient is homebound (i.e. absences from home require considerable and taxing effort and are for medical reasons or congregational services or infrequently or of short duration when for other reasons) because: Certification for Home Health Services: Based on the above findings, I certify that this patient is confined to the home and needs intermittent [facility] care, physical therapy and/or speech therapy or continues to need occupational therapy. The patient is under my care, and I have initiated the establishment of the plan of care. This patient will be followed by a physician who will periodically review the plan of care. Total Time Total Time Spent Total Time Spent (In Minutes): 40 minutes Discharge Plan Discharge Items Patient Disposition: Home - Home Health Services Reason For Visit: ACUTE ON CHRONIC HYPERCAPNIC RESPIRATORY FAILURE Discharge Diagnosis: Acute on chronic hypercapnic and hypoxic respiratory failure Interstitial lung disease Pulmonary pretension WEIR Acute on chronic heart failure Chronic atrial fibrillation Chronic renal failure stage III Condition on Discharge: Fair Activity: Resume your previous activity Activity Comment: Activity as tolerated, anticipate you will get short of breath and have low Lifting: Gradually increase as tolerated Non-emergency contact: Primary Care Provider Call non-emergency contact if: you have any medication questions, your symptoms worsen and you have a fever Follow-up/Referrals: Kat Hawthorne, [Primary Care Provider] - Diet: Carb Consistent or DM2 Addtl Attending Provider Instructions: Follow-up with interstitial lung disease clinic/pulmonary as coordinated through [facility] at home Pending Studies at Discharge: No Stand-Alone Forms: My [employer], Smoking Cessation Medications and DC Order Prescriptions: New budesonide 0.5 mg/2 mL Suspension For Nebulization 0.5 mg NEB BIDR Qty: 60 1RF lidocaine 5 % Adhesive Patch,Medicated 1 patch transdermal QAM Qty: 30 0RF prednisone 10 mg tablet 10 mg PO DIRECTED Qty: 50 0RF Rx Instructions: see taper instructions Take 4 tablets for 5 days then 3 tablets for 5 days then 2 tablets for 5 days then 1 tablet for 5 days then stop Continued cholecalciferol (vitamin D3) 50 mcg (2,000 unit) tablet 2,000 unit PO QAM Qty: 90 3RF omeprazole 20 mg capsule,delayed release(DR/EC) 20 mg PO BID (DME) Portable Oxygen Misc See Rx Instructions .Route Rx Instructions: 3lpm via nasal cannula. Test for portability (POC)-4lpm at rest and 6lpm with activity sertraline [Zoloft] 100 mg Tablet 100 mg PO QAM lorazepam 0.5 mg Tablet 0.5 mg PO Q8 PRN (Reason: Anxiety) folic acid 1 mg Tablet 1 mg PO QAM sotalol 80 mg tablet 80 mg PO BID cyclobenzaprine 5 mg tablet 5 mg PO BID PRN (Reason: Muscle Spasm) loratadine [Claritin] 10 mg Tablet 10 mg PO QAM acetaminophen [Tylenol] 325 mg Tablet 650 mg PO Q4 PRN (Reason: PAIN/FEVER) docusate sodium [Stool Softener] 100 mg Capsule 100 mg PO BID hydroxyzine HCl 25 mg tablet 25 mg PO HS PRN (Reason: Itching) albuterol sulfate 90 mcg/actuation HFA aerosol inhaler 2 puff INHALATION Q4H PRN (Reason: Wheezing) fluoride (sodium) [SF 5000 Plus] 1.1 % Cream 1 applic DENTAL BID gabapentin 300 mg capsule 300 mg PO TID amlodipine [Norvasc] 5 mg Tablet 5 mg PO QAM Qty: 30 1RF montelukast 10 mg tablet 10 mg PO QAM bumetanide 2 mg tablet 2 mg PO BID Rx Instructions: QAM & NOON amoxicillin 500 mg Capsule 2,000 mg PO DIRECTED PRN (Reason: 1 HR PRIOR TO DENTAL APPT.) nystatin 100,000 unit/gram powder 1 applic TOPICAL TID PRN (Reason: SKIN IRRITATION, UNDER BREASTS, ABD FOLDS) ipratropium-albuterol 0.5 mg-3 mg(2.5 mg base)/3 mL solution for nebulization 3 ml NEB Q6H PRN (Reason: shortness of breath) Discontinued fosfomycin tromethamine 3 gram packet 3 g PO FARMER@0900 Discharge Orders: Discharge Order (Routine); Ordered 04/20/24 Ordered By: Farhan Mcadams Admission Data Admit Date/Time: 04/15/24 17:18 Attending Provider: Farhan Mcadams Admit Provider: Nixon Sherman Primary Care Provider: Kat Hawthorne Other Providers: Nixon Sherman; Anders Silva
== END 2024-04-20 13:21 | disposition home health service (06) | DRG 189 ==
LOC: ED 14:51 → SUATTDRO 17:18 → 2S 17:18

== ENCOUNTER 2024-07-24 20:26 | Inpatient (IN) ==
--- OUTSIDE RECORDS SUMMARY | 2024-07-24 20:34 | External Medical Summary ---
Author Name Unknown Address Unknown Organization [id number]:[facility] [id number] [place] [id number] Laboratory Report Ordering Provider Test Date Status JOVANNA GUERREROON 07/21/2024 13:48:25 Final Observation Date Value Abnormality Reference (Units ) Status SYNC LEUKOCYTES IN BLOOD BY AUTOMATED COUNT 07/21/2024 13:48:25 9.72 4.00-10.80 (K/uL) Final Neutrophils/100 leukocytes in Blood by Manual count 07/21/2024 13:48:25 85.0 Above high normal 40.0-75.0 (%) Final Lymphocytes/100 leukocytes in Blood by Manual count 07/21/2024 13:48:25 6.0 Below low normal 18.0-42.0 (%) Final Monocytes/100 leukocytes in Blood by Manual count 07/21/2024 13:48:25 6.0 1.0-11.0 (%) Final Basophils/100 leukocytes in Blood by Manual count 07/21/2024 13:48:25 1.0 0.0-2.0 (%) Final Metamyelocytes/100 leukocytes in Blood by Manual count 07/21/2024 13:48:25 2.0 Above high normal <=0.0 (%) Final Neutrophils [#/volume] in Blood by Manual count 07/21/2024 13:48:25 8.26 Above high normal 1.80-7.70 (K/uL) Final Lymphocytes [#/volume] in Blood by Manual count 07/21/2024 13:48:25 0.58 Below low normal 1.00-4.80 (K/uL) Final Monocytes [#/volume] in Blood by Manual count 07/21/2024 13:48:25 0.58 0.00-1.10 (K/uL) Final Basophils [#/volume] in Blood by Manual count 07/21/2024 13:48:25 0.10 0.00-0.20 (K/uL) Final Metamyelocytes [#/volume] in Blood by Manual count 07/21/2024 13:48:25 0.19 Above high normal <=0.00 (K/uL) Final Nucleated erythrocytes/100 leukocytes [Ratio] in Blood by Automated count 07/21/2024 13:48:25 1 Above high normal <=0 (/100 WBCs) Final Acanthocytes [Presence] in Blood by Light microscopy 07/21/2024 13:48:25 Moderate Abnormal None Seen Final Polychromasia [Presence] in Blood by Light microscopy 07/21/2024 13:48:25 Moderate Abnormal None Seen Final Schistocytes 07/21/2024 13:48:25 Few Abnormal None Seen Final Neutrophils.agranular [Presence] in Blood by Light microscopy 07/21/2024 13:48:25 Present Abnormal None Seen Final Performing Location [facility] [id number] [place] [address]
--- OUTSIDE RECORDS SUMMARY | 2024-07-24 20:34 | External Medical Summary | Summary of Care ---
Author Name Unknown Organization [facility] Address [address] [place] [address] Phone [phone] Care Team Providers Care Cooking Instructor Name Role Phone MichaelKat king Salma ALARCON Primary Care Provider [phone] Reason for Visit * Reason Comments Outpatient Testing Encounter Details Date Type Department Care Team (Late st Contact Info) Description 07/21/2024 1:40 PM EDT Laboratory Laboratory [facility] [place] [address] [place] [phone] [place], [address] [place] [address] History of recent blood transfusion; Acquired hemolytic anemia (HCC) Allergies Active Allergy Reactions Criticality Noted Date Comments Adhesive Tape Low 09/25/2022 Other reaction(s): SKIN BLISTERS SOME TIMES; steri strips tolerated Other Reaction(s): SKIN BLISTERS SOME TIMES Clindamycin High 09/25/2022 Other reaction(s): PT CONTRACTED C-DIFF Clindamycin Hcl 04/18/2014 Pt states she developed c diff Doxorubicin Liposome 12/12/2020 Infusion reaction Doxorubicin 09/25/2022 Other reaction(s): Hypoxia Levofloxacin Edema Other High 04/17/2016 Other reaction(s): LE swelling and blistering Paclitaxel 11/15/2020 Severe infusion reaction Other reaction(s): facial flushing, bradycardia Shellfish Allergy 01/26/2017 Topical betadine tolerated Shellfish-Derived Products High Other reaction(s): NAUSEA,DIARRHEA, VOMITING Other Reaction(s): NAUSEA,DIARRHEA, VOMITING documented as of this encounter (statuses as of 07/21/2024) Medications Medication Sig Dispensed Refills Start Date [...] IN GASIndications:ILD (interstitial lung disease) ([facility]),Chronic respiratory failure with hypoxia ([facility]) Use 2 LPM with exertion and 3 LPM with sleep. Needs small portable tanks, standing concentrator DME: [employer] 1 Each 07/02/2022 Active Proventil HFA 108 (90 Base) MCG/ACT Inhalation Aerosol SolutionIndications: ILD (interstitial lung disease) ([facility]) Inhale by mouth 2 Puffs every 4 hours as needed for Wheezing. 6.7 g 3 2022 Active SF 5000 Plus 1.1 % Dental Cream APPLY A THIN LAYER TO TOOTHBRUSH AND BRUSH ONCE DAILY FOR 2 MINUTES, SPIT OUT, DO NOT RINSE 12/29/2022 Active Acetaminophen 325 MG Oral Tablet (Tylenol) Take 1 Tablet by mouth every 6 hours as needed. Active Naproxen Sodium 220 MG Oral Capsule Take 1 Capsule by mouth daily as needed for Pain. Active Probiotic Daily Oral Capsule Take 1 Capsule by mouth in the morning. Active Nystatin 228474 UNIT/GM External Powder (Nystop) Apply topically to [...] the morning. 90 Tablet 3 07/16/2023 Active Hydrocortisone (Perianal) 2.5 % External CreamIndications:Hem orrhoids, external without complications Administer into the rectum 2 times a day. 28 g 1 10/19/2023 Active Fosfomycin Tromethamine 3 GM Oral Packet (Monurol)Indications :Recurrent UTI Take 3 g by mouth once a week. 12 Packet 2 01/27/2024 Active Bumetanide 2 MG Oral Tablet TAKE 1 TABLET BY MOUTH TWICE DAILY (IN THE MORNING AND AT NOON) 60 Tablet 5 03/07/2024 Active hydrOXYzine HCl 25 MG Oral TabletIndications:Pr uritus TAKE 1 TABLET BY MOUTH AT BEDTIME NEEDED FOR ITCHING 30 Tablet 3 03/22/2024 Active metFORMIN HCl ER 500 MG Oral Tablet Extended Release 24 Hour (Glucophage XR)Indications:Type 2 diabetes mellitus with chronic kidney disease, without long-term current use of insulin, unspecified CKD stage (HCC) Take 1 Tablet by mouth in the morning. 30 Tablet 11 04/27/2024 Active Sertraline HCl 100 MG Oral Tablet (Zoloft)Indications: Depression with anxiety Take 1 Tablet by mouth in the morning. 90 Tablet 3 04/30/2024 Active amLODIPine Besylate 5 MG Oral Tablet (Norvasc) TAKE 1 TABLET BY MOUTH IN THE MORNING 90 Tablet 1 05/10/2024 Active predniSONE 10 MG Oral Tablet (Deltasone)Indicatio ns:Acquired hemolytic anemia (HCC) Take 1 Tablet by mouth in the morning. 30 Tablet 05/11/2024 Active Budesonide 0.5 MG/2ML Inhalation Suspension (Pulmicort) Inhale 0.5 mg via nebulizer in the morning. 180 mL 3 05/23/2024 Active Cyclobenzaprine HCl 5 MG Oral Tablet (Flexeril)Indication s:Generalized osteoarthritis Take 1 tablet by mouth twice daily as needed for muscle spasm 60 Tablet 2 06/06/2024 Active Gabapentin 300 MG Oral Capsule (Neurontin) TAKE 1 CAPSULE BY MOUTH THREE TIMES DAILY 90 Capsule 9 06/15/2024 Active Omeprazole 20 MG Oral Capsule Delayed Release (PriLOSEC) Take 1 capsule by mouth twice daily 180 Capsule 1 07/07/2024 Active LORazepam 0.5 MG Oral Tablet (Ativan)Indications: BILLY (generalized anxiety disorder) TAKE 1 TABLET BY MOUTH EVERY 8 HOURS NEEDED FOR ANXIETY 60 Tablet 07/07/2024 Active Amoxicillin 500 MG Oral Capsule (Amoxil) Take 4 Capsules by mouth as needed (one hour prior to dental procedure). 4 Capsule 3 07/05/2024 Active documented as of this encounter (statuses as of 07/21/2024) Active Problems Problem Noted Date Diagnosed Date [...] fall No pain, no diarrhea currently Old WA (myocardial infarction) 04/14/2023 Hyperlipidemia 04/14/2023 History of recent blood transfusion 01/13/2023 S/P total knee arthroplasty, left 01/05/2023 History of ovarian cancer 12/19/2022 Heart failure [...] Health Device(s): Continuous Monitoring Device Exacerbation Plan Anticipated IV lasix dose :200mg Additional Comments: Euvolemic today Chronic respiratory failure with hypoxia 022 Last Assessment & Plan: On continuous o2 supplement, 6lpm Using NIV qhs ILD (interstitial lung disease) 06/05/2022 Last Assessment & Plan: Following with pulmonary ILD clinic Prednisone dose at 10mg daily Presence of [...] GERD with esophagitis 08/01/2019 GENERAL OSTEOARTHROSIS 06/27/2003 Last Assessment & Plan: Continue topical lidocaine prn Recommended to decrease use of advil and increase use of APAP Patient getting some relief with ice prn Will place ortho ref for eval, possible injections GENERALIZED ANXIETY DIS 12/30/2001 Essential hypertension with goal blood pressure less than 130/80 documented as of this encounter (statuses as of 07/21/2024) Resolved Problems Problem Noted Date Diagnosed Date [...] anemia due to acute blood loss 04/21/2023 Prediabetes 12/22/2022 04/21/2024 Overview: Per Prediabetes protocol Current moderate episode of major depressive disorder [...] History - s/p surgery & treatment per ARCHITECTURE PROFESSOR note on 11/18/23 Ca 125: 68.8 U/mL [...] as of this encounter (statuses as of 07/21/2024) Immunizations Name Administration Dates Next Due COVID-19 mRNA, LNP-s, No Pre serve, 2-Dose Series (Opeepl) 08/23/2021,01/26/2021,01/05/2021 Pneumococcal Conjugate Vacc, 13 Valent (Prevnar) 09/03/2018 Pneumococcal Polysaccharide PPV23 (Pneumovax) 05/17/2020 Season Influenza, Quad, PF, Adjuvanted, 65+ Yrs, IM (FLUAD) 07/25/2020 Seasonal Influenza Virus Vac cine, Unspecified Formulation 09/03/2018,07/21/2017,07/09/2017,07/29,12/05/2015 Seasonal Influenza, High Dos e, Trivalent, PF, IM (Fluzone HD) 08/18/2019,09/03/2018 Seasonal Influenza, PF, 6 M & above, IM , (FluLaval or Fluzone) 09/03/2018,07/21/2017 Seasonal Influenza, Quadriva lent Hd (Fluzone Hd) 07/16/2023,2022 Seasonal Influenza, Quadriva lent Hd, 65+ Yrs 08/16/2021 Seasonal Influenza, Quadriva lent, No Preserve, IM 07/29/2016,12/05/2015 TDAP (age 10 and older)(Boostrix) 09/02/2021 TDAP, [...] have money to get more. Patient declined Childcare Answer Date Recorded Do you feel overwhelmed with taking care of a child, family member or friend? No 03/21/2024 Does your family need help f inding childcare? (Household - for ages 0-17 years) Not on file 03/21/2024 Clothing Answer Date Recorded Have you been unable to get clothing when it was really needed? No 03/21/2024 Is your family able to get c lothes or diapers when needed? (Household - for ages 0-17 years) Not on file 03/21/2024 Personal Safety Answer Date Recorded Do you feel unsafe or have concerns for your saf ety? No 03/21/2024 Do you have concerns for you r family's safety? (Household - for ages 0-17 years) Not on file 03/21/2024 Utilities Answer Date Recorded Do you have trouble paying y our heating, water, or electric bill? No 03/21/2024 Is your family able to pay t he heat, water, or electric bill? (Household - for ages 0-17 years) Not on file 03/21/2024 Does your family have access to good internet? (Household - for ages 0-17 years) Not on file 03/21/2024 Employment Status Answer Date Recorded Are you unemployed or without regular income? No 03/21/2024 Does the household have a re gular source of income? (Household - for ages 0-17 years) Not on file 03/21/2024 Social Connections Answer Date Recorded How often do you feel lonely or isolated from th ose around you? Never 03/21/2024 Financial Resource Strain Answer Date R ecorded Do you have any trouble payi ng for your medications, or do you think you might in the future? No 03/21/2024 Does your family have troubl e paying for medicine? (Household - for ages 0-17 years) Not on file 03/21/2024 Transportation Needs Answer Date Record ed READ ONLY Do you have troubl e getting a ride to medical visits or work? Never True 03/21/2024 Does your family have a hard time getting a ride to doctors visits? (Household - for ages 0-17 years) Not on file 03/21/2024 Has lack of transportation k ept you from medical appointments, meetings, work, or from getting things needed for daily living? Check all that apply. (Adult - for ages 18 years and over) Not on file 03/21/2024 Do you (or your family) have trouble finding or paying for a ride (transportation)? (Household - for ages 0-17 years) Not on file 03/21/2024 Housing Stability Answer Date Recorded Do you currently live in a s helter or have no steady place to sleep at night? No 03/21/2024 READ ONLY Do you think you a re at risk of becoming homeless? No 03/21/2024 Does your family worry about paying for your home or becoming homeless? (Household - for ages 0-17 years) Not on file 0 03/21/2024 Are you homeless or worried that you might be in the future? (Adult - for ages 18 years and over) Not on file Are you (or your family) santosh eless or worried that you might be in the future? (Household - for ages 0-17 years) Not on file Food Insecurity Answer Date Recorded Do you need food for this week? No 03/21/2024 Are you able to get enough f ood for your family? (Household - for ages 0-17 years) Not on file 03/21/2024 Does your family need food t his week? (Household - for ages 0-17 years) Not on file 03/21/2024 Do you always have enough fo od for your family? (Household - for ages 0-17 years) Not on file 03/21/2024 Sex and Gender Information Value Date Recorded [...] Care Team (Late st Contact Info) Description 07/27/2024 12:00 PM EDT Home Visit [facility] [address] [address] July Diaz RN [address] [address] 08/22/2024 2:15 PM EDT Office Visit Hematology/Oncology [facility] [address] [place] [phone] Robert Marion MD [address] [place] [address] 08/29/2024 11:00 AM EDT Office Visit Cardiology, [facility] [address] [place] [address] Shilpi Bailey PA-C [address] [place] [address] 10/07/2024 11:50 AM EST Office Visit [facility] [address] [place] [phone] Kat Hawthorne DO [address] [place] [address] Pending Results Name Type Priority Associated Diagnoses Date /Time CBC WITH WBC DIFFERENTIAL Lab STAT History of recent blood transfusion Acquired hemolytic anemia (HCC) 07/21/2024 1:48 PM EDT COMPREHENSIVE METABOLIC PANEL Lab STAT History of recent blood transfusion Acquired hemolytic anemia (HCC) 07/21/2024 1:48 PM EDT CBC Lab STAT History of recent blood transfusion Acquired hemolytic anemia (HCC) 07/21/2024 1:48 PM EDT DIFFERENTIAL, AUTOMATED Lab STAT History of recent blood transfusion Acquired hemolytic anemia (HCC) 07/21/2024 1:48 PM EDT Scheduled Procedures Name Priority Associated Diagnoses Date/Ti me ESOPHAGOGASTRODUODENOSCOPY ( EGD), FLEXIBLE, TRANSORAL, ENDOSCOPIC ULTRASOUND Choledocholithiasis ENDOSCOPIC RETROGRADE CHOLANGIOPANCREATOGRAPHY (ERCP) DIAGNOSTIC Choledocholithiasis ESOPHAGOGASTRODUODENOSCOPY ( EGD), FLEXIBLE, TRANSORAL, DIAGNOSTIC Choledocholithiasis COLONOSCOPY FLEXIBLE PROXIMAL DIAGNOSTIC Recall Colon cancer screening Health Maintenance Due Date Last Done Comments DXA Scan 1953 Alpha-1 Antitrypsin 1971 Cologuard 1998 Fecal Occult Blood Test 1998 Sigmoidoscopy 1998 Hepatitis B Vaccine (1 of 3 - Risk 3-dose series) 2013 Adult Wellness Visit 2019 COVID-19 Vaccine ( season) 2024 08/23/2021, 08/02/2021, 01/26/2021, Additional history exists Influenza Vaccine (FLU shot) (#1) 2024 07/16/2023, 2022, 08/16/2021, Additional history exists HbA1c 09/21/2024 03/21/2024, 02/0 07/2023, 05/27/2018, Additional history exists Mammogram 12/09/2024 12/09/2023, 11/11, 04/30/2022, Additional history exists GFR 01/04/2025 07/04/2024, 04/10, 03/21/2024, Additional history exists Diabetic Eye Exam 03/10/2025 03/10/2024, , 01/30/2023, Additional history exists CKD PHOS USE SMARTSET 38787 03/21/202503/09, 03/16/2023, 03/15/2023, Additional history exists Depression Screening 03/21/2025 03/21/2024 Albumin/Creatinine Ratio 03/22/202503/22/2 024, 09/04/2021, 01/27/2019, Additional history exists Diabetic Foot Exam 04/27/2025 04/27/2024 O2 ASSESSMENT COMPLETED IN PAST YEAR FOR COPD 06/17/2025 06/17/2024 CKD HGB USE SMARTSET 77769 07/04/202507/04, 07/04/2024, 06/20/2024, Additional history exists Lipid Panel 09/03/2027 09/03/2022, 09/09, 08/02/2019, Additional history exists Colonoscopy 07/27/2030 07/27/2020, 09/25/2017 Colorectal Cancer Screening 07/27/2030 DTap/Tdap Vaccines (2 - Td or Tdap) 09/02/2031 09/02/2021 Pneumococcal Vaccine: 65+ Years Completed 05/17/2020, 09/03/2018 Zoster Vaccines Completed 06/03/2021, 03/19/2021 HPV (Gardasil) Vaccine Aged Out No lo nger eligible based on patient's age to complete this topic MENINGOCOCCAL (MENACTRA/MENVEO) Aged Out No longer eligible based on patient's age to complete this topic documented as of this encounter Medical Devices Implanted Type Area Mental Health Program Manager Device Identifier Shelf Expiration Date Model / Serial / Lot Cement Bone Simplex Hv & G - [id number] Implanted:Qty: 2 on 01/05/2023 by Harley Nguyen DO at OR [facility] Left: Knee [employer] : [employer] 06/08/2024 6195-1-010 / / [id number] Component Femoral Size 5 - [id number] Implanted:Qty: 1 on 01/05/2023 by Harley Nguyen DO at OR [facility] Left: Knee [employer] : [employer] 08/09/2026 5510-F-501 / / [id number] Knee Tria Syetric X3 10x36 - [id number] Implanted:Qty: 1 on 01/05/2023 by Harley Nguyen DO at OR [facility] Left: Knee [employer] : [employer] 09/24/2027 5550-G-360 -E / / [id number] Baseplate Tib 5 Knee - [id number] Implanted:Qty: 1 on 01/05/2023 by Harley Nguyen DO at OR [facility] Left: Knee [employer] : [employer] 12/14/2027 5521-B-500 / / [id number] Knee X3 Ins Pos Cs Sz5 9 - [id number] Implanted:Qty: 1 on 01/05/2023 by Harley Nguyen DO at OR [facility] Left: Knee [employer] : [employer] 11/19/2027 5531-G-509 -E / / [id number] Cement Bone Full Mix Surg Simp - [id number] Implanted:Qty: 1 on 03/03/2023 by Cholo Shah MD at [place] [facility] Right: Knee [employer] : [employer] 05/08/2025 6191-1-010 / / [id number] Knee Tib Comp Poly Krh 8 Lg - [id number] Implanted:Qty: 1 on 03/03/2023 by Cholo Shah MD at [place] [facility] Right: Knee [employer] : [employer] 07/19/2023 6485-2-308 / / [id number] Knee Hrhk Mod Rot Hng Bushing - [id number] Implanted:Qty: 1 on 03/03/2023 by Cholo Shah MD at [place] [facility] Right: Knee [employer] : [employer] 01/09/2027 6481-2-110 / / [id number] Knee Hrhk Mod Rot Hng Bushing - [id number] Implanted:Qty: 1 on 03/03/2023 by Cholo Shah MD at [place] [facility] Right: Knee [employer] : [employer] 11/21/2026 6481-2-110 / / [id number] Knee Stem Crv Mod Mrs 52p841 - [id number] Implanted:Qty: 1 on 03/03/2023 by Cholo Shha MD at [place] [facility] Right: Knee [employer] : [employer] 10/02/2026 6485-3-715 / / [id number] Tib Mrh Cross Bear Long Xs/Xl - [id number] Implanted:Qty: 1 on 03/03/2023 by Cholo Shah MD at [place] [facility] Right: Knee [employer] : [employer] 12/05/2025 6481-2-103 / / [id number] Knee Tib Bumper Rot Hng Nue - [id number] Implanted:Qty: 1 on 03/03/2023 by Cholo Shah MD at [place] [facility] Right: Knee [employer] : [employer] 07/15/2027 6481-2-130 / / [id number] Distal Femoral Component Implanted:Qty: 1 on 03/03/2023 by Cholo Shah MD at [place] [facility] Right: Knee [employer] : [employer] 08/23/2023 6495-2-040 / / [id number] Knee Axle Hrhk Rot Mod Hng - [id number] Implanted:Qty: 1 on 03/03/2023 by Cholo Shah MD at [place] [facility] Right: Knee [employer] : [employer] 06/30/2027 6481-2-120 / / [id number] Restrictors Med Cmnt I799-8790 - [id number] Implanted:Qty: 1 on 03/03/2023 by Cholo Shah MD at [place] [facility] Right: Knee [employer] : ORTH[employer] 11/18/2027 [id number] / / Cement Bone Full Mix Surg Simp - [id number] Implanted:Qty: 1 on 03/03/2023 by Cholo Shah MD at [place] [facility] Right: Knee [employer] : [employer] 07/09/2025 6191-1-010 / / [id number] Cement Bone Full Mix Surg Simp - [id number] Implanted:Qty: 1 on 03/03/2023 by Cholo Shah MD at [place] [facility] Right: Knee [employer] : ORTH[employer] 06/08/2025 6191--010 / / [id number] Cement Bone Full Mix Surg Simp - [id number] Implanted:Qty: 1 on 03/03/2023 by Cholo Shah MD at [place] [facility] Right: Knee [employer] : OR[employer] 05/08/2025 6191--010 / / [id number] Knee Fem Gmrs Dis Std R - [id number] Implanted:Qty: 1 on 03/10/2023 by Cholo Shah MD at [place] [facility] Right: Knee [employer] : ORTH[employer] 10/21/2027 6495-2-040 / / [id number] Knee Hrhk Mod Rot Hng Bushing - [id number] Implanted:Qty: 1 on 03/10/2023 by Cholo Shah MD at [place] [facility] Right: Knee [employer] : ORTH[employer] 01/29/2027 6481-2-110 / / [id number] Knee Axle Hrhk Rot Mod Hng - [id number] Implanted:Qty: 1 on 03/10/2023 by Cholo Shah MD at [place] [facility] Right: Knee [employer] : ORTH[employer] 09/15/2027 6481-2-120 / / [id number] Tib Mrh Cross Bear Long Xs/Xl - [id number] Implanted:Qty: 1 on 03/10/2023 by Cholo Shah MD at [place] [facility] Right: Knee [employer] : ORTH[employer] 09/30/2027 6481-2-103 / / [id number] Knee Hrhk Mod Rot Hng Bushing - [id number] Implanted:Qty: 1 on 03/10/2023 by Cholo Shah MD at [place] [facility] Right: Knee [employer] : ORTHOPAEDICS 04/24/2027 6481-2-110 / / [id number] Knee Tib Bumper Issac Hng Nue - [id number] Implanted:Qty: 1 on 03/10/2023 by Cholo Shah MD at [facility] Right: Knee [employer] : ORTHOP[employer] 10/15/2027 6481-2-130 / / [id number] documented as of this encounter Visit Diagnoses Diagnosis History of recent blood transfusion Acquired hemolytic anemia (HCC) Acquired hemolytic anemia, unspecified documented in this encounter Advance Directives Documents on File Type Date Recorded 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 Care Teams Cooking Instructor Relationship Specialty Start Date End Date Kat Hawthorne DO [address] [facility] [place] [address] PCP - General Family Medicine 08/20/22 documented as of this encounter
--- OUTSIDE RECORDS SUMMARY | 2024-07-24 20:35 | External Medical Summary ---
Author Name Unknown Address Unknown Organization [facility] [address] [place] [address] Laboratory Report Ordering Provider Test Date Status ANGEL GUERRERO 07/21/2024 13:48:25 Final Observation Date Value Abnormality Reference (Units ) Status BUN 07/21/2024 13:48:25 26 Above high normal 6-20 (mg/dL) Final Creatinine 07/21/2024 13:48:25 0.9 0.5-1.0 (mg/dL) Final Glomerular filtration rate/1.73 sq M.predicted [Volume Rate/Area] in Serum, Plasma or Blood by Creatinine-based formula (CKD-EPI) 07/21/2024 13:48:25 66 >=60 (mL/min) Final eGFR is calculated based on the CKD-EPI 2020 equation. Sodium 07/21/2024 13:48:25 142 135-146 (m mol/L) Final Potassium 07/21/2024 13:48:25 4.3 3.5-5.1 (m mol/L) Final Cl 07/21/2024 13:48:25 98 98-107 (mm ol/L) Final CO2 07/21/2024 13:48:25 32 22-32 (mmo l/L) Final Anion gap 07/21/2024 13:48:25 12 7-15 (mmol /L) Final Glucose 07/21/2024 13:48:25 204 Above high normal 70 -120 (mg/dL) Final Albumin 07/21/2024 13:48:25 4.3 3.8-5.0 (g /dL) Final AST (Aspartate aminotransferase) 07/21/2024 13:48:25 41 Above high normal 10-35 (U/L) Final Alk Phos 07/21/2024 13:48:25 120 35-130 (U/ L) Final Bilirubin, Total 07/21/2024 13:48:25 0.6 <=1 .2 (mg/dL) Final Calcium 07/21/2024 13:48:25 9.8 8.4-10.2 ( mg/dL) Final Protein 07/21/2024 13:48:25 7.5 6.0-8.3 (g /dL) Final ALT (Alanine aminotransferase) 07/21/2024 13:48:25 24 10-35 (U/L) Carlos A real Performing Location [facility] [address] [place] [address]
--- OUTSIDE RECORDS SUMMARY | 2024-07-24 20:35 | External Medical Summary | Summary of Care ---
Author Name Unknown Organization [facility] Address [address] [place] [address] Phone [phone] Care Team Providers Care Joint Finisher Name Role Phone Kat Hawthorne Primary Care Provider [phone] Encounter Details Date Type Department Care Team (Late st Contact Info) Description 07/04/2024 Patient Reported Data Patient Survey Ortho OBERD Allergies Active Allergy Reactions Criticality Noted Date [...] as of this encounter (statuses as of 07/04/2024) Medications Medication Sig Dispensed Refills Start Date [...] by mouth in the morning. Active Nystatin 424655 UNIT/GM External Powder (Nystop) Apply topically to [...] muscle spasm 60 Tablet 2 06/06/2024 Active LORazepam 0.5 MG Oral Tablet (Ativan)Indications: BILLY (generalized anxiety disorder) Take 1 Tablet by mouth every 8 hours as needed for Anxiety. 60 Tablet 06/08/2024 Active Gabapentin 300 MG Oral Capsule (Neurontin) TAKE 1 CAPSULE BY MOUTH THREE TIMES DAILY 90 Capsule 9 06/15/2024 Active documented as of this encounter (statuses as of 07/04/2024) Active Problems Problem Noted Date Diagnosed Date [...] as of this encounter (statuses as of 07/04/2024) Resolved Problems Problem Noted Date Diagnosed Date [...] History - s/p surgery & treatment per INFECTION PREVENTION COORDINATOR note on 11/18/23 Ca 125: 68.8 U/mL [...] as of this encounter (statuses as of 07/04/2024) Immunizations Name Administration Dates Next Due COVID-19 [...] Care Team (Late st Contact Info) Description 08/22/2024 2:15 PM EDT Office Visit Hematology/Oncology [facility] [address] [facility] [place] [phone] Robert Marion MD [address] [facility] [place] [address] 08/29/2024 11:00 AM EDT Office Visit Cardiology, [facility] [address] [address] Shilpi Bailey PA-C [address] [place] [address] 10/07/2024 11:50 AM EST [facility] Visit [facility] [address] [facility] [phone] Kat Hawthorne DO [address] [facility] [place] [address] Scheduled Procedures Name Priority Associated Diagnoses Date/Ti [...] Wellness Visit 2019 COVID-19 Vaccine ( season) 2023 08/23/2021, 08/02/2021, 01/26/2021, Additional history exists Influenza Vaccine (FLU shot) (#1) 2024 07/16/2023, 2022, 08/16/2021, Additional history exists HbA1c 09/21/2024 03/21/2024, 02/0 07/2023, 05/27/2018, Additional history exists Mammogram 12/09/2024 12/09/2023, 11/11, 04/30/2022, Additional history exists GFR 01/04/2025 07/04/2024, 04/10, 03/21/2024, Additional history exists Diabetic Eye Exam 03/10/2025 03/10/2024, , 01/30/2023, Additional history exists CKD PHOS USE SMARTSET 09616 03/21/202503/09, 03/16/2023, 03/15/2023, Additional history exists Depression Screening 03/21/2025 03/21/2024 Albumin/Creatinine Ratio 03/22/2025 024, 09/04/2021, 01/27/2019, Additional history exists Diabetic Foot Exam 04/27/2025 04/27/2024 O2 ASSESSMENT COMPLETED IN PAST YEAR FOR COPD 06/13/2025 06/13/2024 CKD HGB USE SMARTSET 40069 07/04/202507/04, 07/04/2024, 06/20/2024, Additional history exists Lipid [...] encounter Medical Devices Implanted Type Area Gas Stove Servicer Helper Device Identifier Shelf Expiration Date Model / Serial / Lot Cement Bone Simplex Hv & G - [id number] Implanted:Qty: 2 on 01/05/2023 by Harley Nguyen, DO at OR [facility] Left: Knee ROSALIA : ORTHOPAEDICS 06/08/2024 6195-1-010 / / [id number] Component Femoral Size 5 - [id number] Implanted:Qty: 1 on 01/05/2023 by Harley Nguyen, DO at OR [facility] Left: Knee ROSALIA : ORTHOPAEDICS 08/09/2026 5510-F-501 / / [id number] Knee Tria Syetric X3 10x36 - [id number] Implanted:Qty: 1 on 01/05/2023 by Harley Nguyen DO at OR [facility] Left: Knee ROSALIA : ORTHOPAEDICS 09/24/2027 5550-G-360 -E / / [id number] Baseplate Tib 5 Knee - [id number] Implanted:Qty: 1 on 01/05/2023 by Harley Nguyen DO at OR [facility] Left: Knee ROSALIA : ORTHOPAEDICS 12/14/2027 5521-B-500 / / [id number] Knee X3 Ins Pos Cs Sz5 9 - [id number] Implanted:Qty: 1 on 01/05/2023 by Harley Nguyen DO at OR [facility] Left: Knee ROSALIA : ORTHOPAEDICS 11/19/2027 5531-G-509 -E / / [id number] Cement Bone Full Mix Surg Simp - [id number] Implanted:Qty: 1 on 03/03/2023 by Cholo Shah MD at OR [facility] Right: Knee ROSALIA : ORTHOPAEDICS 05/08/2025 6191-1-010 / / [id number] Knee Tib Comp Poly Krh 8 Lg - [id number] Implanted:Qty: 1 on 03/03/2023 by Cholo Shah MD at OR [facility] Right: Knee ROSALIA : ORTHOPAEDICS 07/19/2023 6485-2-308 / / [id number] Knee Hrhk Mod Rot Hng Bushing - [id number] Implanted:Qty: 1 on 03/03/2023 by Cholo Shah MD at OR [facility] Right: Knee ROSALIA : ORTHOPAEDICS 01/09/2027 6481-2-110 / / [id number] Knee Hrhk Mod Rot Hng Bushing - [id number] Implanted:Qty: 1 on 03/03/2023 by Cholo Shah MD at OR [facility] Right: Knee ROSALIA : ORTHOPAEDICS 11/21/2026 6481-2-110 / / [id number] Knee Stem Crv Mod Mrs [id number] - [id number] Implanted:Qty: 1 on 03/03/2023 by Cholo Shah MD at OR [facility] Right: Knee ROSALIA : ORTHOPAEDICS 10/02/2026 6485-3-715 / / [id number] Tib Mrh Cross Bear Long Xs/Xl - [id number] Implanted:Qty: 1 on 03/03/2023 by Cholo Shah MD at OR [facility] Right: Knee ROSALIA : ORTHOPAEDICS 12/05/2025 6481-2-103 / / [id number] Knee Tib Bumper Rot Hng Nue - [id number] Implanted:Qty: 1 on 03/03/2023 by Cholo Shah MD at OR [facility] Right: Knee ROSALIA : ORTHOPAEDICS 07/15/2027 6481-2-130 / / [id number] Distal Femoral Component Implanted:Qty: 1 on 03/03/2023 by Cholo Shah MD at OR [facility] Right: Knee ROSALIA : ORTHOPAEDICS 08/23/2023 6495-2-040 / / [id number] Knee Axle Hrhk Rot Mod Hng - [id number] Implanted:Qty: 1 on 03/03/2023 by Cholo Shah MD at OR [facility] Right: Knee ROSALIA : ORTHOPAEDICS 06/30/2027 6481-2-120 / / [id number] Restrictors Med Cmnt T136-5198 - [id number] Implanted:Qty: 1 on 03/03/2023 by Cholo Shah MD at OR [facility] Right: Knee ROSALIA : ORTHOPAEDICS 11/18/2027 C695-8687 / / Cement Bone Full Mix Surg Simp - [id number] Implanted:Qty: 1 on 03/03/2023 by Cholo hSah MD at OR [facility] Right: Knee ROSALIA : ORTHOPAEDICS 07/09/2025 6191-1-010 / / [id number] Cement Bone Full Mix Surg Simp - [id number] Implanted:Qty: 1 on 03/03/2023 by Cholo Shah MD at OR [facility] Right: Knee ROSALIA : ORTHOPAEDICS 06/08/2025 6191-1-010 / / [id number] Cement Bone Full Mix Surg Simp - [id number] Implanted:Qty: 1 on 03/03/2023 by Cholo Shah MD at OR [facility] Right: Knee ROSALIA : ORTHOPAEDICS 05/08/2025 6191-1-010 / / [id number] Knee Fem Gmrs Dis Std R - [id number] Implanted:Qty: 1 on 03/10/2023 by Cholo Shah MD at OR [facility] Right: Knee ROSALIA : ORTHOPAEDICS 10/21/2027 6495-2-040 / / [id number] Knee Hrhk Mod Rot Hng Bushing - [id number] Implanted:Qty: 1 on 03/10/2023 by Cholo Shah MD at OR [facility] Right: Knee ROSALIA : ORTHOPAEDICS 01/29/2027 6481-2-110 / / [id number] Knee Axle Hrhk Rot Mod Hng - [id number] Implanted:Qty: 1 on 03/10/2023 by Cholo Shah MD at OR [facility] Right: Knee ROSALIA : ORTHOPAEDICS 09/15/2027 6481-2-120 / / [id number] Tib Mrh Cross Bear Long Xs/Xl - [id number] Implanted:Qty: 1 on 03/10/2023 by Cholo Shah MD at OR [facility] Right: Knee ROSALIA : ORTHOPAEDICS 09/30/2027 6481-2-103 / / [id number] Knee Hrhk Mod Rot Hng Bushing - [id number] Implanted:Qty: 1 on 03/10/2023 by Cholo Shah MD at OR [facility] Right: Knee ROSALIA : ORTHOPAEDICS 04/24/2027 6481-2-110 / / [id number] Knee Tib Bumper Rot Hng Nue - [id number] Implanted:Qty: 1 on 03/10/2023 by Cholo Shah MD at OR [facility] Right: Knee ROSALIA : ORTHOPAEDICS 10/15/2027 6481-2-130 / / [id number] documented as of this encounter Advance Directives Documents on File Type Date Recorded Patient Audio Visual Coordinator Expl 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 Care Teams Joint Finisher Relationship Specialty Start Date End Date Kat Hawthorne DO [address] [facility] [place] [address] PCP - General Family Medicine 08/20/22 documented as of this encounter
--- OUTSIDE RECORDS SUMMARY | 2024-07-24 20:35 | External Medical Summary ---
Author Name Unknown Address Unknown Organization K09:[facility] [place] [address] Laboratory Report Ordering Provider Test Date Status ANGEL GUERRERO 07/21/2024 13:48:25 Final Observation Date Value Abnormality Reference (Units ) Status WBC, Total 07/21/2024 13:48:25 9.72 4.00-10.8 0 (K/uL) Final RBC 07/21/2024 13:48:25 3.45 3.85-5.15 (M/uL) Final Hemoglobin 07/21/2024 13:48:25 9.5 Below low normal 12 .0-15.3 (g/dL) Final HCT 07/21/2024 13:48:25 33.8 Below low normal 36. 0-45.2 (%) Final MCV 07/21/2024 13:48:25 98.0 81.5-97.5 (fL) Final MCH 07/21/2024 13:48:25 27.5 27.0-34.0 (pg) Final MCHC 07/21/2024 13:48:25 28.1 32.0-36.0 (g/dL) Final RDW 07/21/2024 13:48:25 23.5 11.5-15.5 (%) Final Platelets 07/21/2024 13:48:25 132 Below low normal 140 -400 (K/uL) Final MPV 07/21/2024 13:48:25 11.2 6.6-11.1 ( fL) Final Performing Location [facility] [place] [address]
--- OUTSIDE RECORDS SUMMARY | 2024-07-24 20:35 | External Medical Summary | Summary of Care ---
Author Name Unknown Organization [facility] Address [address] [place] [address] Phone [phone] Care Team Providers Care Multimedia Editor Name Role Phone Antonia Ledezma DO Primary Care Provider [phone] Reason for Visit * Reason Comments eRx-Medication Refill Encounter Details Date Type Department Care Team (Late st Contact Info) Description 07/05/2024 Refill [facility] [address] [place] [address] Antonia Ledezma DO [address] [place] [address] BILLY (generalized anxiety disorder) Allergies [...] as of this encounter (statuses as of 07/07/2024) Medications Medication Sig Dispensed Refills Start Date End Date Status Cholecalciferol (VITAMIN D) 1000 UNITS Tablet Take 2 Tablets by mouth in the morning. Active Folic Acid 1 MG Oral TabletIndications: [...] IN GASIndications:ILD (interstitial lung disease) ([facility]),Chronic respiratory failure with hypoxia (HCC) Use 2 LPM with exertion and 3 LPM with sleep. Needs small portable tanks, standing concentrator DME: [facility] 1 Each 2 Active Proventil HFA 108 (90 Base) MCG/ACT Inhalation Aerosol SolutionIndication s:ILD (interstitial lung disease) ([facility]) Inhale by mouth 2 Puffs every 4 hours as needed for Wheezing. 6.7 g 3 2 Active SF 5000 Plus 1.1 % Dental Cream APPLY A THIN LAYER TO TOOTHBRUSH AND BRUSH ONCE DAILY FOR 2 MINUTES, SPIT OUT, DO NOT RINSE 3 Active Acetaminophen 325 MG Oral Tablet (Tylenol) Take 1 Tablet by mouth every 6 hours as needed. Active Naproxen Sodium 220 MG Oral Capsule Take 1 Capsule by mouth daily as needed for Pain. Active Probiotic Daily Oral Capsule Take 1 Capsule by mouth in the morning. Active Nystatin 199974 UNIT/GM External Powder (Nystop) Apply topically to [...] the morning. 90 Tablet 3 3 Active Hydrocortisone (Perianal) 2.5 % External CreamIndications:H emorrhoids, external without complications Administer into the rectum 2 times a day. 28 g 1 3 Active Fosfomycin Tromethamine 3 GM Oral Packet (Monurol)Indicatio ns:Recurrent UTI Take 3 g by mouth once a week. 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 30 Tablet 11 4 Active Sertraline HCl 100 MG Oral Tablet (Zoloft)Indication s:Depression with anxiety Take 1 Tablet by mouth in the morning. 90 Tablet 3 4 Active amLODIPine Besylate 5 MG Oral Tablet (Norvasc) TAKE 1 TABLET BY MOUTH IN THE MORNING 90 Tablet 1 4 Active predniSONE 10 MG Oral Tablet (Deltasone)Indicat ions:Acquired hemolytic anemia (HCC) Take 1 Tablet by mouth in the morning. 30 Tablet 4 Active Budesonide 0.5 MG/2ML Inhalation Suspension (Pulmicort) Inhale 0.5 mg via nebulizer in the morning. 180 mL 3 4 Active Cyclobenzaprine HCl 5 MG Oral Tablet (Flexeril)Indicati ons:Generalized osteoarthritis Take 1 tablet by mouth twice daily as needed for muscle spasm 60 Tablet 2 4 Active Gabapentin 300 MG Oral Capsule (Neurontin) TAKE 1 CAPSULE BY MOUTH THREE TIMES DAILY 90 Capsule 9 4 Active Omeprazole 20 MG Oral Capsule Delayed Release (PriLOSEC) Take 1 capsule by mouth twice daily 180 Capsule 1 4 Active LORazepam 0.5 MG Oral Tablet (Ativan)Indication s:BILLY (generalized anxiety disorder) TAKE 1 TABLET BY MOUTH EVERY 8 HOURS NEEDED FOR ANXIETY 60 Tablet 4 Active Amoxicillin 500 MG Oral Capsule (Amoxil) Take 4 Capsules by mouth as needed (one hour prior to dental procedure). 4 Capsule 3 4 Active Omeprazole 20 MG Oral Capsule Delayed Release (PriLOSEC) Take 1 Capsule by mouth in the morning and 1 Capsule before bedtime. 180 Capsule 3 3 07/07/20 24 Discontinued LORazepam 0.5 MG Oral Tablet (Ativan)Indication s:BILLY (generalized anxiety disorder) Take 1 Tablet by mouth every 8 hours as needed for Anxiety. 60 Tablet 4 07/07/20 24 Discontinued documented as of this encounter (statuses as of 07/07/2024) Active Problems Problem Noted Date Diagnosed Date [...] as of this encounter (statuses as of 07/07/2024) Resolved Problems Problem Noted Date Diagnosed Date [...] & Plan: S/P wound vac placement at [facility] On doxycycline 100 mg BID x [...] History - s/p surgery & treatment per BLOOD COORDINATOR note on 11/18/23 Ca 125: 68.8 [...] as of this encounter (statuses as of 07/07/2024) Immunizations Name Administration Dates Next Due COVID-19 mRNA, LNP-s, No Pre serve, 2-Dose Series (Doppelgames) 08/23/2021,01/26/2021,01/05/2021 Pneumococcal Conjugate Vacc, 13 Valent (Prevnar) [...] TDAP, Age 7 and older, IM (Adacel) 02/27/2009(De ferred: Patient Refused) Zoster Vaccine Recombinant (Shingrix) 06/03/2021 [...] Telephone Encounter - Antonia Ledezma DO - 07/07/2024 12:56 PM EDTSigned Prescriptions: Disp Refills Omeprazole 20 MG Oral Capsule Delayed Rele*180 Ca*1 Sig: Take 1 capsule by mouth twice daily Authorizing Provider: ANTONIA LEDEZAM Ordering User: ADI MONTES LORazepam 0.5 MG Oral Tablet (Ativan) 60 Tab*0 Sig: TAKE 1 TABLET BY MOUTH EVERY 8 HOURS NEEDED FOR ANXIETY Authorizing Provider: ANTONIA LEDEZMA * Telephone Encounter - Adi Montes [facility] - 07/07/2024 9:48 AM EDTPending Prescriptions: Disp Refills LORazepam 0.5 MG Oral Tablet (Ativan) 60 Tab*0 Sig: TAKE 1 TABLET BY MOUTH EVERY 8 HOURS NEEDED FOR ANXIETY Signed Prescriptions: Disp Refills Omeprazole 20 MG Oral Capsule Delayed Rele*180 Ca*1 Sig: Take 1 capsule by mouth twice daily Authorizing Provider: ANTONIA LEDEZMA Ordering User: ADI LYLES * Telephone Encounter - Adi Montes [facility] - 07/07/2024 9:45 AM EDT I have reviewed the patients controlled substance dispensing history in the Prescription Drug Monitoring Program in compliance with the [facility] regulations before prescribing a controlled substance. PDMP checked on 07/07/2024. Pending Prescriptions: Disp Refills LORazepam 0.5 MG Oral Tablet (Ativan) [Ph*60 Tab*0 Sig: TAKE 1 TABLET BY MOUTH EVERY 8 HOURS NEEDED FOR ANXIETY Signed Prescriptions: Disp Refills Omeprazole 20 MG Oral Capsule Delayed Rele*180 Ca*1 Sig: Take 1 capsule by mouth twice daily Authorizing Provider: ANTONIA LEDEZMA Ordering User: ADI MONTES Last Visit: 04/27/2024 (in office), 12/04/2020 (telemedicine) Next Visit: 10/07/2024 Date medication was last filled: 06/08/2024 Date medication is due for refill: 07/07/2024 Pharmacy: [facility] [address] [address] [address] Is this request for a [...] Results Review. Please approve if appropriate. Thanks, Adi Montes Pharm.D. Clinical Pharmacist [facility] ([facility]) [phone] 07/07/2024, 9:45 AM documented in this encounter Plan of Treatment Upcoming Encounters Date Type Department Care Team (Late st Contact Info) Description 08/22/2024 2:15 PM EDT Office Visit [facility]ology[facility] [address] [place] [phone] Robert Marion MD [address] [place] [address] 08/29/2024 11:00 AM EDT Office Visit Cardiology, [facility] [address] [place] [address] Shilpi Bailey, DEAN [address] [place] [address] 10/07/2024 11:50 AM EST Office Visit [facility] [address] [place] [phone] Antonia Ledezma [address] [place] [address] Scheduled Procedures Name Priority Associated Diagnoses Date/Ti [...] Additional history exists CKD PHOS USE SMARTSET 35403 03/21/202503/09, 03/16/2023, 03/15/2023, Additional history exists Depression Screening 03/21/2025 03/21/2024 Albumin/Creatinine Ratio 03/22/202503/22/ 024, 09/04/2021, 01/27/2019, Additional history exists Diabetic Foot Exam 04/27/2025 04/27/2024 O2 ASSESSMENT COMPLETED IN PAST YEAR FOR COPD 06/13/2025 06/13/2024 CKD HGB USE SMARTSET 25071 07/04/202507/04, 07/04/2024, 06/20/2024, Additional history exists Lipid [...] this encounter Medical Devices Implanted Type Area Powder Coater Device Identifier Shelf Expiration Date Model / Serial / Lot Cement Bone Simplex Hv & G - [id number] Implanted:Qty: 2 on 01/05/2023 by Harley Nguyen DO at OR [facility] Left: Knee ROSALIA : ORTHOPAEDICS 06/08/2024 6195-1-010 / / [id number] Component Femoral Size 5 - [id number] Implanted:Qty: 1 on 01/05/2023 by Harley Nguyen DO at OR [facility] Left: Knee ROSALIA : ORTHOPAEDICS 08/09/2026 5510-F-501 / / [id number] Knee Tria Syetric X3 10x36 - [id number] Implanted:Qty: 1 on 01/05/2023 by Harley Nguyen DO at OR [facility] Left: Knee ROSALIA : ORTHOPAEDICS 09/24/2027 5550-G-360 -E / / [id number] Baseplate Tib 5 Knee - [id number] Implanted:Qty: 1 on 01/05/2023 by Harley Nguyen DO at OR [facility] Left: Knee ROSALIA : ORTHOPAEDICS 12/14/2027 5521-B-500 / / [id number] Knee X3 Ins Pos Cs Sz5 9 - [id number] Implanted:Qty: 1 on 01/05/2023 by Harley Nguyen DO at OR [facility] Left: Knee ROSALIA : ORTHOPAEDICS 11/19/2027 5531-G-509 -E / / [id number] Cement Bone Full Mix Surg Simp - [id number] Implanted:Qty: 1 on 03/03/2023 by Cholo Shah MD at [place] [facility] Right: Knee ROSALIA : ORTHOPAEDICS 05/08/2025 6191-1-010 / / [id number] Knee Tib Comp Poly Krh 8 Lg - [id number] Implanted:Qty: 1 on 03/03/2023 by Cholo Shah MD at OR [facility] Right: Knee ROSALIA : ORTHOPAEDICS 07/19/2023 6485-2-308 / / [id number] Knee Hrhk Mod Rot Hng Bushing - [id number] Implanted:Qty: 1 on 03/03/2023 by Cholo Shah MD at OR [facility] Right: Knee ROSALIA : ORTHOPAEDICS 01/09/2027 6481-2-110 / / [id number] Knee Hrhk Mod Rot Hng Bushing - [id number] Implanted:Qty: 1 on 03/03/2023 by Cholo Shah MD at OR [facility] Right: Knee ROSALIA : ORTHOPAEDICS 11/21/2026 6481-2-110 / / [id number] Knee Stem Crv Mod Mrs 29i672 - [id number] Implanted:Qty: 1 on 03/03/2023 by Cholo Shah MD at OR [facility] Right: Knee ROSALIA : ORTHOPAEDICS 10/02/2026 6485-3-715 / / [id number] Tib Mrh Cross Bear Long Xs/Xl - [id number] Implanted:Qty: 1 on 03/03/2023 by Cholo Shah MD at OR [facility] Right: Knee ROSALIA : ORTHOPAEDICS 12/05/2025 6481-2-103 / / [id number] Knee Tib Bumper Rot Hng Nue - [id number] Implanted:Qty: 1 on 03/03/2023 by Cholo Shah MD at OR [facility] Right: Knee ROSALIA : ORTHOPAEDICS 07/15/2027 6481-2-130 / / [id number] Distal Femoral Component Implanted:Qty: 1 on 03/03/2023 by Cholo Shah MD at OR [facility] Right: Knee ROSALIA : ORTHOPAEDICS 08/23/2023 6495-2-040 / / [id number] Knee Axle Hrhk Rot Mod Hng - [id number] Implanted:Qty: 1 on 03/03/2023 by Cholo Shah MD at OR [facility] Right: Knee ROSALIA : ORTHOPAEDICS 06/30/2027 6481-2-120 / / [id number] Restrictors Med Cmnt J113-3646 - [id number] Implanted:Qty: 1 on 03/03/2023 by Cholo Shah MD at OR [facility] Right: Knee ROSALIA : ORTHOPAEDICS 11/18/2027 O507-8079 / / Cement Bone Full Mix Surg Simp - [id number] Implanted:Qty: 1 on 03/03/2023 by Cholo Shah MD at OR [facility] Right: Knee ROSALIA : ORTHOPAEDICS 07/09/2025 6191-1-010 / / [id number] Cement Bone Full Mix Surg Simp - [id number] Implanted:Qty: 1 on 03/03/2023 by Cholo Shah MD at OR [facility] Right: Knee ROSALIA : ORTHOPAEDICS 06/08/2025 6191-1-010 / / [id number] Cement Bone Full Mix Surg Simp - [id number] Implanted:Qty: 1 on 03/03/2023 by Cholo Shah MD at OR [facility] Right: Knee ROSALIA : ORTHOPAEDICS 05/08/2025 6191-1-010 / / [id number] Knee Fem Gmrs Dis Std R - [id number] Implanted:Qty: 1 on 03/10/2023 by Cholo Shah MD at OR [facility] Right: Knee ROSALIA : ORTHOPAEDICS 10/21/2027 6495-2-040 / / [id number] Knee Hrhk Mod Rot Hng Bushing - [id number] Implanted:Qty: 1 on 03/10/2023 by Cholo Shah MD at OR [facility] Right: Knee ROSALIA : ORTHOPAEDICS 01/29/2027 6481-2-110 / / [id number] Knee Axle Hrhk Rot Mod Hng - [id number] Implanted:Qty: 1 on 03/10/2023 by Cholo Shah MD at OR [facility] Right: Knee ROSALIA : ORTHOPAEDICS 09/15/2027 6481-2-120 / / [id number] Tib Mrh Cross Bear Long Xs/Xl - [id number] Implanted:Qty: 1 on 03/10/2023 by Cholo Shah MD at OR [facility] Right: Knee ROSALIA : ORTHOPAEDICS 09/30/2027 6481-2-103 / / [id number] Knee Hrhk Mod Rot Hng Bushing - [id number] Implanted:Qty: 1 on 03/10/2023 by Cholo Shah MD at OR [facility] Right: Knee ROSALIA : ORTHOPAEDICS 04/24/2027 6481-2-110 / / [id number] Knee Tib Bumper Rot Hng Nue - [id number] Implanted:Qty: 1 on 03/10/2023 by Cholo Shah MD at OR [facility] Right: Knee ROSALIA : ORTHOPAEDICS 10/15/2027 6481-2-130 / / [id number] documented as of this encounter Visit Diagnoses Diagnosis BILLY (generalized anxiety disorder) Generalized anxiety disorder documented in this encounter Advance Directives Documents on File Type Date Recorded Patient Archeologist Expl 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 Care Teams Multimedia Editor Relationship Specialty Start Date End Date Antonia Ledezma DO [address] [place] [address] PCP - General Family Medicine 08/20/22 documented as of this encounter
--- OUTSIDE RECORDS SUMMARY | 2024-07-24 20:35 | External Medical Summary | Summary of Care ---
Author Name Unknown Organization [facility] Address [address] [place] [address] Phone [phone] Care Team Providers Care Route Carrier Name Role Phone Kat Hawthorne Primary Care Provider Reason for Visit * Reason Comments [facility]: Maintenance Encounter Details Date Type Department Care Team (Late st Contact Info) Description 06/17/2024 2:30 PM EDT Home Visit [facility], [facility] [address] [place] [address] July Diaz, RN [address] [place] [address] Allergies Active Allergy Reactions Criticality Noted Date [...] as of this encounter (statuses as of 07/12/2024) Medications Medication Sig Dispensed Refills Start Date [...] IN GASIndications:ILD (interstitial lung disease) ([facility]),Chronic respiratory failure with hypoxia (HCC) Use 2 LPM with exertion and 3 LPM with sleep. Needs small portable tanks, standing concentrator DME: [facility] 1 Each 07/02/2022 Active Proventil HFA 108 (90 Base) MCG/ACT Inhalation Aerosol SolutionIndications: ILD (interstitial lung disease) ([facility]) Inhale by mouth 2 Puffs every 4 [...] by mouth in the morning. Active Nystatin 885043 UNIT/GM External Powder (Nystop) Apply topically to [...] as of this encounter (statuses as of 07/12/2024) Active Problems Problem Noted Date Diagnosed Date [...] fall No pain, no diarrhea currently Old [place] (myocardial infarction) 04/14/2023 Hyperlipidemia 04/14/2023 History of [...] as of this encounter (statuses as of 07/12/2024) Resolved Problems Problem Noted Date Diagnosed Date [...] History - s/p surgery & treatment per BAND TOP MAKER note on 11/18/23 Ca 125: 68.8 [...] as of this encounter (statuses as of 07/12/2024) Immunizations Name Administration Dates Next Due COVID-19 [...] Age 7 and older, IM (Adacel) 02/27/2009(De jose f: Patient Refused) Zoster Vaccine Recombinant (Shingrix) 06/03/2021 [...] No 03/21/2024 Does the household have a [facility] source of income? (Household - for ages [...] Reading Time Taken Comments Blood Pressure 126/68 06/17/2024 2:14 PM EDT Pulse 62 06/17/2024 2:14 PM EDT Temperature 36.1 C (97 F) 06/17/2024 2:1 4 PM EDT Respiratory Rate 18 06/17/2024 2:14 PM EDT Oxygen Saturation 91% 06/17/2024 2:1 4 PM EDT o2 on at 6 l/min via nc Inhaled Oxygen Concentration - - Weight 103.9 kg (229 lb) 06/17/2024 2:1 4 PM EDT Height - - Body Mass Index 34.82 02/09/2024 1:05 PM EDT documented in this [...] Progress Notes * July Diaz RN - 07/12/2024 2:12 PM EDT [facility] Briquetting Machine Operator Visit Date: 06/17/2024 Time: 2:12 PM Name: Orin Bah : 1955 Current Concerns: Pt seen for return RNCM visit Wearing oxygen at 6 l/min via NC States she puts it up to 8 l/min with activity when she remembers She often gets SOB with activity but it has been at baseline Using NIV at night LE edema has been at baseline Stopped taking stool softeners after started Metformin - not having diarrhea but does not need the stool softeners as bowels are moving more regularly Appetite has decreased some - wt was 229 lbs yesterday Crackles of lungs - scattered Physical Exam: BP 126/68 | Pulse 62 | Temp 36.1 C (97 F) | Resp 18 | Wt 103.9 kg (229 lb) | LMP 07/05/2003 | SpO2 91% Comment: o2 on at 6 l/min via nc | BMI 34.82 kg/m | BSA 2.23 m Pain 0 Physical Exam Constitutional: General: She is not in acute distress. Appearance: She is obese. Cardiovascular: Rate and Rhythm: Normal rate and regular rhythm. Pulses: Normal pulses. Heart sounds: Normal heart sounds. Pulmonary: Effort: Pulmonary effort is normal. Breath sounds: Rales (scattered) present. Abdominal: Palpations: Abdomen is soft. Musculoskeletal: Right lower leg: Edema (trace) present. Left lower leg: Edema (trace) present. Skin: General: Skin is warm and dry. Neurological: Mental Status: She is alert and oriented to person, place, and time. Problems/Symptoms: Review of Systems Constitutional: Positive for fatigue. HENT: Negative. Respiratory: Positive for shortness of breath ([facility] - at baseline). Cardiovascular: Positive for leg swelling. Gastrointestinal: Negative. Genitourinary: Negative. Musculoskeletal: Positive for arthralgias and gait problem. Psychiatric/Behavioral: Negative. Medication Reconciliation: (See medication list) Does patient take medications as ordered: Yes Patient Well Being: PHQ2/9: No questionnaires available. No change in living situation Denies recent falls [facility] Completed this Visit: No. Routine visit and No falls since last visit Advanced Care Planning: Living Will. Reinforcement/Education: Educated on home safety: Create a [...] exercises that will be right for you. Reviewed HF symptom monitoring: -Weigh self daily [...] if at night -increased fatigue or vertigo COPD: Pt instructed to: -Call with increased SOB, wheezing, chest tightness, increased cough, increased sputum with change in color or consistency and fever. -Wash hands often -Drink plenty of fluids -Use inhalers as directed, do not stop or skip doses -Avoid stress -Rest when tired or SOB -Avoid triggers -Clean inhalers once a week Reinforced safety education and fall prevention. and Reinforced medication regimen. Timing., Dosing., and Purspose. Treatment/Plan: Continue meds as prescribed/reviewed Weigh self daily and record - usually does 3 days a week Elevate LE as much as follow Low Na diet Oxygen at 6 l/min via NC at rest and 10L with activity Proventil inhaler prn Nebulizer prn Home Interventions Provided: Home Intervention: Other; eval Reinforced current Plan of Care, including self-management and medication regimen Patient's 'Red Flags': Increased SOB Pulse Ox consistently less than 90 with o2 on Redness, foul drainage, increased pain/edema of wound Patient Needs to Remember: Call [facility] at with any new or worsening health concerns or problems, red flag symptoms. Referrals Needed: Other none Follow Up: Is there cellular connectivity/connectivity in the home? No Does the patient have internet in the home? No Patient encouraged to call the intake phone number for all urgent but not emergent issues. Is the patient new to [facility] within the last 30 days? No, Assess appropriateness for upcoming telehealth visits. Cancel telehealth visits & schedule home visit with care steam tank operator(s)as indicated. Provider is in agreement with Plan of Care: Yes Scheduled to follow up with patient in one month. July Diaz RN 06/17/2024 2:12 PM documented in this encounter Plan of Treatment Upcoming Encounters Date Type Department Care Team (Late st Contact Info) Description 07/27/2024 12:00 PM EDT Home Visit [facility] [place], [facility] [address] [place] [address] July Diaz RN [address] [place] [address] 08/22/2024 2:15 PM EDT Office Visit Hematology/Oncology [facility] [address] [facility] [place] [phone] Robert Marion MD [address] [facility] [place] [address] 08/29/2024 11:00 AM EDT Office Visit Cardiology, [facility] [address] [address] Shilpi Bailey PA-C [address] [place] [address] 10/07/2024 11:50 AM EST [facility] Visit [facility] [address] [facility] [phone] Kat Hawthorne DO [address] [facility] [place] [address] Scheduled Procedures Name Priority Associated Diagnoses Date/Ti [...] Additional history exists CKD PHOS USE SMARTSET 60618 03/21/202503/09, 03/16/2023, 03/15/2023, Additional history exists Depression Screening 03/21/2025 03/21/2024 Albumin/Creatinine Ratio 03/22/2025 024, 09/04/2021, 01/27/2019, Additional history exists Diabetic Foot Exam 04/27/2025 04/27/2024 O2 ASSESSMENT COMPLETED IN PAST YEAR FOR COPD 06/13/2025 06/13/2024 CKD HGB USE SMARTSET 20489 07/04/202507/04, 07/04/2024, 06/20/2024, Additional history exists Lipid [...] this encounter Medical Devices Implanted Type Area Enterprise Account Executive Device Identifier Shelf Expiration Date Model / Serial / Lot Cement Bone Simplex Hv & G - [id number] Implanted:Qty: 2 on 01/05/2023 by Harley Nguyen, at OR [facility] Left: Knee ROSALIA : ORTHOPAEDICS 06/08/2024 6195-1-010 / / [id number] Component Femoral Size 5 - [id number] Implanted:Qty: 1 on 01/05/2023 by Harley Nguyen DO at OR [facility] Left: Knee ROSALIA : ORTHOPAEDICS 08/09/2026 5510-F-501 / / [id number] Knee Tria Syetric X3 10x36 - [id number] Implanted:Qty: 1 on 01/05/2023 by Harley Nguyen DO at OR [facility] Left: Knee ROSALIA : ORTHOPAEDICS 09/24/2027 5550-G-360 -E / / [id number] Baseplate Tib 5 Knee - [id number] Implanted:Qty: 1 on 01/05/2023 by Harley Nguyen DO at OR [facility] Left: Knee ROSALIA : ORTHOPAEDICS 12/14/2027 5521-B-500 / / [id number] Knee X3 Ins Pos Cs Sz5 9 - [id number] Implanted:Qty: 1 on 01/05/2023 by Harley Nguyen DO at OR [facility] Left: Knee ROSALIA : ORTHOPAEDICS 11/19/2027 5531-G-509 -E / / [id number] Cement Bone Full Mix Surg Simp - [id number] Implanted:Qty: 1 on 03/03/2023 by Cholo Shah MD [facility] [place] [facility] Right: Knee ROSALIA : ORTHOPAEDICS 05/08/2025 6191-1-010 / / [id number] Knee Tib Comp Poly Krh 8 Lg - [id number] Implanted:Qty: 1 on 03/03/2023 by Cholo Shah MD at [place] [facility] Right: Knee ROSALIA : ORTHOPAEDICS 07/19/2023 6485-2-308 / / [id number] Knee Hrhk Mod Rot Hng Bushing - [id number] Implanted:Qty: 1 on 03/03/2023 by Cholo Shah MD at [place] [facility] Right: Knee ROSALIA : ORTHOPAEDICS 01/09/2027 6481-2-110 / / [id number] Knee Hrhk Mod Rot Hng Bushing - [id number] Implanted:Qty: 1 on 03/03/2023 by Cholo Shah MD at [place] [facility] Right: Knee ROSALIA : ORTHOPAEDICS 11/21/2026 6481-2-110 / / [id number] Knee Stem Crv Mod Mrs 59b044 - [id number] Implanted:Qty: 1 on 03/03/2023 by Cholo Shah MD at [place] [facility] Right: Knee ROSALIA : ORTHOPAEDICS 10/02/2026 6485-3-715 / / [id number] Tib Mrh Cross Bear Long Xs/Xl - [id number] Implanted:Qty: 1 on 03/03/2023 by Cholo Shah MD at [place] [facility] Right: Knee ROSALIA : ORTHOPAEDICS 12/05/2025 6481-2-103 / / [id number] Knee Tib Bumper Rot Hng Nue - [id number] Implanted:Qty: 1 on 03/03/2023 by Cholo Shah MD at [place] [facility] Right: Knee ROSALIA : ORTHOPAEDICS 07/15/2027 6481-2-130 / / [id number] Distal Femoral Component Implanted:Qty: 1 on 03/03/2023 by Cholo Shah MD at [place] [facility] Right: Knee ROSALIA : ORTHOPAEDICS 08/23/2023 6495-2-040 / / [id number] Knee Axle Hrhk Rot Mod Hng - [id number] Implanted:Qty: 1 on 03/03/2023 by Cholo Shah MD at [place] [facility] Right: Knee ROSALIA : ORTHOPAEDICS 06/30/2027 6481-2-120 / / [id number] Restrictors Med Cmnt P960-5492 - [id number] Implanted:Qty: 1 on 03/03/2023 by Cholo Shah MD at [place] [facility] Right: Knee ROSALIA : ORTHOPAEDICS 11/18/2027 I873-6790 / / Cement Bone Full Mix Surg Simp - [id number] Implanted:Qty: 1 on 03/03/2023 by Cholo Shah MD at [place] [facility] Right: Knee ROSALIA : ORTHOPAEDICS 07/09/2025 6191-1-010 / / [id number] Cement Bone Full Mix Surg Simp - [id number] Implanted:Qty: 1 on 03/03/2023 by Cholo Shah MD at [place] [facility] Right: Knee ROSALIA : ORTHOPAEDICS 06/08/2025 6191-1-010 / / [id number] Cement Bone Full Mix Surg Simp - [id number] Implanted:Qty: 1 on 03/03/2023 by Cholo Shah MD at [place] [facility] Right: Knee ROSALIA : ORTHOPAEDICS 05/08/2025 6191-1-010 / / [id number] Knee Fem Gmrs Dis Std R - [id number] Implanted:Qty: 1 on 03/10/2023 by Cholo Shah MD at [place] [facility] Right: Knee ROSALIA : ORTHOPAEDICS 10/21/2027 6495-2-040 / / [id number] Knee Hrhk Mod Rot Hng Bushing - [id number] Implanted:Qty: 1 on 03/10/2023 by Cholo Shah MD at [place] [facility] Right: Knee ROSALIA : ORTHOPAEDICS 01/29/2027 6481-2-110 / / [id number] Knee Axle Hrhk Rot Mod Hng - [id number] Implanted:Qty: 1 on 03/10/2023 by Cholo Shah MD at [place] [facility] Right: Knee ROSALIA : ORTHOPAEDICS 09/15/2027 6481-2-120 / / [id number] Tib Mrh Cross Bear Long Xs/Xl - [id number] Implanted:Qty: 1 on 03/10/2023 by Cholo Shah MD at [place] [facility] Right: Knee ROSALIA : ORTHOPAEDICS 09/30/2027 6481-2-103 / / [id number] Knee Hrhk Mod Rot Hng Bushing - [id number] Implanted:Qty: 1 on 03/10/2023 by Cholo Shah MD at [place] [facility] Right: Knee ROSALIA : ORTHOPAEDICS 04/24/2027 6481-2-110 / / [id number] Knee Tib Bumper Rot Hng Nue - [id number] Implanted:Qty: 1 on 03/10/2023 by Cholo Shah MD at [place] [facility] Right: Knee ROSALIA : ORTHOPAEDICS 10/15/2027 6481-2-130 / / [id number] documented as of this encounter Advance Directives Documents on File Type Date Recorded Patient Cable Maintainer Expl 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 Care Teams Route Carrier Relationship Specialty Start Date End Date Kat Hawthorne DO [address] [facility] [place] [id number] PCP - General Family Medicine 08/20/22 documented as of this encounter
--- OUTSIDE RECORDS SUMMARY | 2024-07-24 20:35 | External Medical Summary | Summary of Care ---
Author Name Unknown Organization [facility] Address [address] [place] [address] Phone [phone] Care Team Providers Care Distillery Miller Helper Name Role Phone Kat Hawthorne Primary Care Provider [phone] Encounter Details Date Type Department Care Team [...] Inhalation Aerosol SolutionIndications: ILD (interstitial lung disease) ([facility]) Inhale by mouth 2 Puffs every [...] by mouth in the morning. Active Nystatin 001065 UNIT/GM External Powder (Nystop) Apply topically to [...] History - s/p surgery & treatment per DIRECTOR OF LOSS PREVENTION note on 11/18/23 Ca 125: 68.8 U/mL [...] 08/22/2024 2:15 PM EDT Office Visit Hematology/Oncology [facility] [address] [facility] [address] [place] [phone] Robert Marion MD [address] [facility] [place] [address] 08/29/2024 11:00 AM EDT Office Visit Cardiology, [facility] [address] [address] Shilpi Bailey PA-C [address] [place] [address] 10/07/2024 11:50 AM EST [facility] [address] [facility] [phone] Kat Hawthorne DO [address] [facility] [place] [address] Scheduled Procedures Name Priority Associated Diagnoses Date/Ti [...] Additional history exists CKD PHOS USE SMARTSET 29287 03/21/202503/09, 03/16/2023, 03/15/2023, Additional history exists Depression Screening 03/21/2025 03/21/2024 Albumin/Creatinine Ratio 03/22/2025 024, 09/04/2021, 01/27/2019, Additional history exists Diabetic Foot Exam 04/27/2025 04/27/2024 O2 ASSESSMENT COMPLETED IN PAST YEAR FOR COPD 06/13/2025 06/13/2024 CKD HGB USE SMARTSET 23159 07/04/202507/04, 07/04/2024, 06/20/2024, Additional history exists Lipid [...] this encounter Medical Devices Implanted Type Area Air Chipper Device Identifier Shelf Expiration Date Model / Serial / Lot Cement Bone Simplex Hv & G - [id number] Implanted:Qty: 2 on 01/05/2023 by Harley Nguyen, DO at OR [facility] Left: Knee ROSALIA : ORTHOPAEDICS 06/08/2024 6195-1-010 / / [id number] Component Femoral Size 5 - [id number] Implanted:Qty: 1 on 01/05/2023 by Harley Nguyen, DO at OR [facility] Left: Knee ROSALIA : ORTHOPAEDICS 08/09/2026 5510-F-501 / / [id number] Knee Tria Syetric X3 10x36 - [id number] Implanted:Qty: 1 on 01/05/2023 by Harley Nguyen DO at OR [facility] Left: Knee ROSALIA : ORTHOPAEDICS 09/24/2027 5550-G-360 -E / / [id number] Baseplate Tib 5 Knee - [id number] Implanted:Qty: 1 on 01/05/2023 by Harley Nguyen DO at OR [facility] Left: Knee ROSALIA : ORTHOPAEDICS 12/14/2027 5521-B-500 / / [id number] Knee X3 Ins Pos Cs Sz5 9 - [id number] Implanted:Qty: 1 on 01/05/2023 by Harley Nguyen DO at OR [facility] Left: Knee ROSALIA : ORTHOPAEDICS 11/19/2027 5531-G-509 -E / / [id number] Cement Bone Full Mix Surg Simp - [id number] Implanted:Qty: 1 on 03/03/2023 by Cholo Shah MD [place] [facility] [place]: Knee ROSALIA : ORTHOPAEDICS 05/08/2025 6191-1-010 / / [id number] Knee Tib Comp Poly Krh 8 Lg - [id number] Implanted:Qty: 1 on 03/03/2023 by Cholo Shah MD [place] [facility] [place]: Knee ROSALIA : ORTHOPAEDICS 07/19/2023 6485-2-308 / / [id number] Knee Hrhk Mod Rot Hng Bushing - [id number] Implanted:Qty: 1 on 03/03/2023 by Cholo Shah MD [place] [facility] [place]: Knee ROSALIA : ORTHOPAEDICS 01/09/2027 6481-2-110 / / [id number] Knee Hrhk Mod Rot Hng Bushing - [id number] Implanted:Qty: 1 on 03/03/2023 by Cholo Shah MD [place] [facility] Right: Knee ROSALIA : ORTHOPAEDICS 11/21/2026 6481-2-110 / / [id number] Knee Stem Crv Mod Mrs 87g227 - [id number] Implanted:Qty: 1 on 03/03/2023 by Cholo Shah MD [place] [facility] Right: Knee ROSALIA : ORTHOPAEDICS 10/02/2026 6485-3-715 / / [id number] Tib Mrh Cross Bear Long Xs/Xl - [id number] Implanted:Qty: 1 on 03/03/2023 by Cholo Shah MD at [place] [facility] Right: Knee ROSALIA : ORTHOPAEDICS 12/05/2025 6481-2-103 / / [id number] Knee Tib Bumper Rot Hng Nue - [id number] Implanted:Qty: 1 on 03/03/2023 by Cholo Shah MD [place] [facility] Right: Knee ROASLIA : ORTHOPAEDICS 07/15/2027 6481-2-130 / / [id number] Distal Femoral Component Implanted:Qty: 1 on 03/03/2023 by Cholo Shah MD [place] [facility] Right: Knee ROSALIA : ORTHOPAEDICS 08/23/2023 6495-2-040 / / [id number] Knee Axle Hrhk Rot Mod Hng - [id number] Implanted:Qty: 1 on 03/03/2023 by Cholo Shah MD [place] [facility] [place]: Knee ROSALIA : ORTHOPAEDICS 06/30/2027 6481-2-120 / / [id number] Restrictors Med Cmnt J831-5011 - [id number] Implanted:Qty: 1 on 03/03/2023 by Cholo Shah MD [place] [facility] Right: Knee ROSALIA : ORTHOPAEDICS 11/18/2027 A933-6858 / / Cement Bone Full Mix Surg Simp - [id number] Implanted:Qty: 1 on 03/03/2023 by Cholo Shah MD [place] [facility] [place]: Knee ROSALIA : ORTHOPAEDICS 07/09/2025 6191-1-010 / / [id number] Cement Bone Full Mix Surg Simp - [id number] Implanted:Qty: 1 on 03/03/2023 by Cholo Shah MD [place] [facility] Right: Knee ROSALIA : ORTHOPAEDICS 06/08/2025 6191-1-010 / / [id number] Cement Bone Full Mix Surg Simp - [id number] Implanted:Qty: 1 on 03/03/2023 by Cholo Shah MD at [place] [facility] Right: Knee ROSALIA : ORTHOPAEDICS 05/08/2025 6191-1-010 / / [id number] Knee Fem Gmrs Dis Std R - [id number] Implanted:Qty: 1 on 03/10/2023 by Cholo Shah MD [place] [facility] Right: Knee ROSALIA : ORTHOPAEDICS 10/21/2027 6495-2-040 / / [id number] Knee Hrhk Mod Rot Hng Bushing - [id number] Implanted:Qty: 1 on 03/10/2023 by Cholo Shah MD at [place] [facility] Right: Knee ROSALIA : ORTHOPAEDICS 01/29/2027 6481-2-110 / / [id number] Knee Axle Hrhk Rot Mod Hng - [id number] Implanted:Qty: 1 on 03/10/2023 by Cholo Shah MD [place] [facility] Right: Knee ROSALIA : ORTHOPAEDICS 09/15/2027 6481-2-120 / / [id number] Tib Mrh Cross Bear Long Xs/Xl - [id number] Implanted:Qty: 1 on 03/10/2023 by Cholo Shah MD at [place] [facility] Right: Knee ROSALIA : ORTHOPAEDICS 09/30/2027 6481-2-103 / / [id number] Knee Hrhk Mod Rot Hng Bushing - [id number] Implanted:Qty: 1 on 03/10/2023 by Chool Shah MD at [place] [facility] Right: Knee ROSALIA : ORTHOPAEDICS 04/24/2027 6481-2-110 / / [id number] Knee Tib Bumper Rot Hng Nue - [id number] Implanted:Qty: 1 on 03/10/2023 by Cholo Shah MD [place] [facility] Right: Knee ROSALIA : ORTHOPAEDICS 10/15/2027 6481-2-130 / / [id number] documented as of this encounter Advance Directives Documents on File Type Date Recorded Patient Fretted Instrument Maker Hand Expl 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 Care Teams Distillery Miller Helper Relationship Specialty Start Date End Date Kat Hawthorne DO [address] [facility] [place] [address] PCP - General Family Medicine 08/20/22 documented as of this encounter
--- OUTSIDE RECORDS SUMMARY | 2024-07-24 20:35 | External Medical Summary | Summary of Care ---
Author Name Unknown Organization [facility] Address [address] [place] [address] Phone [phone] Care Team Providers Care Rehabilitation Manager Name Role Phone Kat Hawthorne Primary Care Provider [phone] Encounter Details Date Type Department Care Team [...] GASIndications:ILD (interstitial lung disease) ([facility]),Chronic respiratory failure with hypoxia (HCC) Use 2 LPM with exertion and 3 LPM with sleep. Needs small portable tanks, standing concentrator DME: [facility] 1 Each 07/02/2022 Active Proventil HFA 108 (90 Base) MCG/ACT Inhalation Aerosol SolutionIndications: ILD (interstitial lung disease) ([facility]) Inhale by mouth 2 Puffs every [...] by mouth in the morning. Active Nystatin 081980 UNIT/GM External Powder (Nystop) Apply topically to [...] fall No pain, no diarrhea currently [place] (myocardial infarction) 04/14/2023 Hyperlipidemia 04/14/2023 History of [...] Plan: S/P wound vac placement at [facility] On doxycycline 100 mg BID x [...] History - s/p surgery & treatment per PROPRIETARY TRADER note on 11/18/23 Ca 125: 68.8 U/mL [...] 08/22/2024 2:15 PM EDT Office Visit Hematology/Oncology [facility] [address] [facility] [place] [place] [phone] Robert Marion MD [address] [facility] [place] [address] 08/29/2024 11:00 AM EDT Office Visit Cardiology, [facility] [address] [address] Shilpi Bailey PA-C [address] [place] [address] 10/07/2024 11:50 AM EST Office Visit Located Within [facility] [address] [place] [phone] Kat Hawthorne DO [address] [facility] [place] [address] Scheduled Procedures Name Priority Associated Diagnoses Date/Ti [...] Additional history exists CKD PHOS USE SMARTSET 13526 03/21/202503/09, 03/16/2023, 03/15/2023, Additional history exists Depression Screening 03/21/2025 03/21/2024 Albumin/Creatinine Ratio 03/22/2025 024, 09/04/2021, 01/27/2019, Additional history exists Diabetic Foot Exam 04/27/2025 04/27/2024 O2 ASSESSMENT COMPLETED IN PAST YEAR FOR COPD 06/13/2025 06/13/2024 CKD HGB USE SMARTSET 13771 07/04/202507/04, 07/04/2024, 06/20/2024, Additional history exists Lipid [...] this encounter Medical Devices Implanted Type Area Scene And Lighting Design Lecturer Device Identifier Shelf Expiration Date Model / Serial / Lot Cement Bone Simplex Hv & G - [id number] Implanted:Qty: 2 on 01/05/2023 by Harley Nguyen, DO at OR [facility] Left: Knee ROSALIA : ORTHOPAEDICS 06/08/2024 6195-1-010 / / [id number] Component Femoral Size 5 - [id number] Implanted:Qty: 1 on 01/05/2023 by Harley Nguyen, DO at OR [facility] Left: Knee [employer] : ORTHOPAEDICS 08/09/2026 5510-F-501 / / [id number] Knee Tria Syetric X3 10x36 - [id number] Implanted:Qty: 1 on 01/05/2023 by Harley Nguyen DO at OR [facility] Left: Knee [employer] : ORTHOPAEDICS 09/24/2027 5550-G-360 -E / / [id number] Baseplate Tib 5 Knee - [id number] Implanted:Qty: 1 on 01/05/2023 by Harley Nguyen DO at OR [facility] Left: Knee [employer] : ORTHOPAEDICS 12/14/2027 5521-B-500 / / [id number] Knee X3 Ins Pos Cs Sz5 9 - [id number] Implanted:Qty: 1 on 01/05/2023 by Harley Nguyen DO at OR [facility] Left: Knee [employer] : ORTHOPAED[employer] 11/19/2027 5531-G-509 -E / / [id number] Cement Bone Full Mix Surg Simp - [id number] Implanted:Qty: 1 on 03/03/2023 by Cholo Shah MD at OR [facility] [place] [place] Right: Knee [employer] : ORTHOPAEDICS 05/08/2025 6191-1-010 / / [id number] Knee Tib Comp Poly Krh 8 Lg - [id number] Implanted:Qty: 1 on 03/03/2023 by Cholo Shah MD at OR [facility] [place] [place] Right: Knee [employer] : ORTHOPAEDICS 07/19/2023 6485-2-308 / / [id number] Knee Hrhk Mod Rot Hng Bushing - [id number] Implanted:Qty: 1 on 03/03/2023 by Cholo Shah MD at OR [facility] [place] [place] Right: Knee [employer] : ORTHOPAEDICS 01/09/2027 6481-2-110 / / [id number] Knee Hrhk Mod Rot Hng Bushing - [id number] Implanted:Qty: 1 on 03/03/2023 by Cholo Shah MD at OR [facility] [place] [place] Right: Knee [employer] : ORTHOPAEDICS 11/21/2026 6481-2-110 / / [id number] Knee Stem Crv Mod Mrs 40x863 - [id number] Implanted:Qty: 1 on 03/03/2023 by Cholo Shah MD at OR [facility] [place] [place] Right: Knee [employer] : ORTHOPAEDICS 10/02/2026 6485-3-715 / / [id number] Tib Mrh Cross Bear Long Xs/Xl - [id number] Implanted:Qty: 1 on 03/03/2023 by Cholo Shah MD at OR [facility] [place] [place] Right: Knee [employer] : ORTHOPAEDICS 12/05/2025 6481-2-103 / / [id number] Knee Tib Bumper Rot Hng Nue - [id number] Implanted:Qty: 1 on 03/03/2023 by Cholo Shah MD at OR [facility] [place] [place] Right: Knee [employer] : ORTHOPAEDICS 07/15/2027 6481-2-130 / / [id number] Distal Femoral Component Implanted:Qty: 1 on 03/03/2023 by Cholo Shah MD at OR [facility] [place] [place] Right: Knee [employer] : ORTHOPAEDICS 08/23/2023 6495-2-040 / / [id number] Knee Axle Hrhk Rot Mod Hng - [id number] Implanted:Qty: 1 on 03/03/2023 by Cholo Shah MD at OR [facility] [place] [place] Right: Knee [employer] : ORTHOPAEDICS 06/30/2027 6481-2-120 / / [id number] Restrictors Med Cmnt E503-0554 - [id number] Implanted:Qty: 1 on 03/03/2023 by Cholo Shah MD at OR [facility] [place] [place] Right: Knee [employer] : ORTHOPAEDICS 11/18/2027 M882-9834 / / Cement Bone Full Mix Surg Simp - [id number] Implanted:Qty: 1 on 03/03/2023 by Cholo Shah MD at OR [facility] [place] [place] Right: Knee [employer] : ORTHOPAEDICS 07/09/2025 6191-1-010 / / [id number] Cement Bone Full Mix Surg Simp - [id number] Implanted:Qty: 1 on 03/03/2023 by Cholo Shah MD at OR [facility] [place] [place] Right: Knee [employer] : ORTHOPAEDICS 06/08/2025 6191-1-010 / / [id number] Cement Bone Full Mix Surg Simp - [id number] Implanted:Qty: 1 on 03/03/2023 by Cholo Shah MD at OR [facility] [place] [place] Right: Knee [employer] : ORTHOPAEDICS 05/08/2025 6191-1-010 / / [id number] Knee Fem Gmrs Dis Std R - [id number] Implanted:Qty: 1 on 03/10/2023 by Cholo Shah MD at OR [facility] [place] [place] Right: Knee [employer] : ORTHOPAEDICS 10/21/2027 6495-2-040 / / [id number] Knee Hrhk Mod Rot Hng Bushing - [id number] Implanted:Qty: 1 on 03/10/2023 by Cholo Shah MD at OR [facility] [place] [place] Right: Knee [employer] : ORTHOPAEDICS 01/29/2027 6481-2-110 / / [id number] Knee Axle Hrhk Rot Mod Hng - [id number] Implanted:Qty: 1 on 03/10/2023 by Cholo Shah MD at OR [facility] [place] [place] Right: Knee [employer] : ORTHOPAEDICS 09/15/2027 6481-2-120 / / [id number] Tib Mrh Cross Bear Long Xs/Xl - [id number] Implanted:Qty: 1 on 03/10/2023 by Cholo Shah MD at OR [facility] [place] [place] Right: Knee [employer]IA : ORTHOPAEDICS 09/30/2027 6481-2-103 / / [id number] Knee Hrhk Mod Rot Hng Bushing - [id number] Implanted:Qty: 1 on 03/10/2023 by Cholo Shah MD at OR [facility] [place] [place] Right: Knee [employer]IA : ORTHOPAEDICS 04/24/2027 6481-2-110 / / [id number] Knee Tib Bumper Rot Hng Nue - [id number] Implanted:Qty: 1 on 03/10/2023 by Cholo Shah MD at OR [facility] [place] [place] Right: Knee [employer]IA : ORTHOPAEDICS 10/15/2027 6481-2-130 / / [id number] documented as of this encounter Advance Directives Documents on File Type Date Recorded Patient Osteopathy Doctor Expl 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 Care Teams Rehabilitation Manager Relationship Specialty Start Date End Date Kat Hawthorne DO [address] [facility] [place] [address] PCP - General Family Medicine 08/20/22 documented as of this encounter
--- OUTSIDE RECORDS SUMMARY | 2024-07-24 20:35 | External Medical Summary | Summary of Care ---
Author Name Unknown Organization [facility] Address [address] [place] [address] Phone [phone] Care Team Providers Care Chronic Manager Name Role Phone Kat Hawthorne Primary Care Provider [phone] Encounter Details Date Type Department Care Team [...] by mouth in the morning. Active Nystatin 585518 UNIT/GM External Powder (Nystop) Apply topically to [...] History - s/p surgery & treatment per LUGGAGE LINER note on 11/18/23 Ca 125: 68.8 U/mL [...] 08/22/2024 2:15 PM EDT Office Visit Hematology/Oncology [facility] [address] [facility] [place] [place] [phone] Robert Marion MD [address] [facility] [place] [address] 08/29/2024 11:00 AM EDT Office Visit Cardiology, [facility] [address] [address] Shilpi Bailey PA-C [address] [place] [address] 10/07/2024 11:50 AM EST [facility] [address] [facility] [phone] Kat Hawthorne DO [address] [facility] [place] [address] Scheduled Procedures Name Priority Associated Diagnoses Date/Ti [...] Additional history exists CKD PHOS USE SMARTSET 15067 03/21/202503/09, 03/16/2023, 03/15/2023, Additional history exists Depression Screening 03/21/2025 03/21/2024 Albumin/Creatinine Ratio 03/22/2025 024, 09/04/2021, 01/27/2019, Additional history exists Diabetic Foot Exam 04/27/2025 04/27/2024 O2 ASSESSMENT COMPLETED IN PAST YEAR FOR COPD 06/13/2025 06/13/2024 CKD HGB USE SMARTSET 55942 07/04/202507/04, 07/04/2024, 06/20/2024, Additional history exists Lipid [...] this encounter Medical Devices Implanted Type Area Computational Mathematician Device Identifier Shelf Expiration Date Model / Serial / Lot Cement Bone Simplex Hv & G - [id number] Implanted:Qty: 2 on 01/05/2023 by Harley Nguyen, DO at OR [facility] Left: Knee [employer]IA : ORTHOPAEDICS 06/08/2024 6195-1-010 / / [id number] Component Femoral Size 5 - [id number] Implanted:Qty: 1 on 01/05/2023 by Harley Nguyen, DO at OR [facility] Left: Knee [employer]IA : ORTHOPAEDICS 08/09/2026 5510-F-501 / / [id number] Knee Tria Syetric X3 10x36 - [id number] Implanted:Qty: 1 on 01/05/2023 by Harley Nguyen DO at OR [facility] Left: Knee [employer] : ORTHOPAEDICS 09/24/2027 5550-G-360 -E / / [id number] Baseplate Tib 5 Knee - [id number] Implanted:Qty: 1 on 01/05/2023 by Harley Nguyen DO at OR [facility] Left: Knee [employer]IA : ORTHOPAEDICS 12/14/2027 5521-B-500 / / [id number] Knee X3 Ins Pos Cs Sz5 9 - [id number] Implanted:Qty: 1 on 01/05/2023 by Harley Nguyen DO at OR [facility] Left: Knee [employer] : ORTHOPAEDICS 11/19/2027 5531-G-509 -E / / [id number] Cement Bone Full Mix Surg Simp - [id number] Implanted:Qty: 1 on 03/03/2023 by Cholo Shah MD at OR [facility] Right: Knee ROSALIA : ORTHOPAEDICS 05/08/2025 6191-1-010 / / [id number] Knee Tib Comp Poly Krh 8 Lg - [id number] Implanted:Qty: 1 on 03/03/2023 by Cholo Shah MD at OR [facility] Right: Knee [employer]IA : ORTHOPAEDICS 07/19/2023 6485-2-308 / / [id number] Knee Hrhk Mod Rot Hng Bushing - [id number] Implanted:Qty: 1 on 03/03/2023 by Cholo Shah MD at OR [facility] Right: Knee [employer]IA : ORTHOPAEDICS 01/09/2027 6481-2-110 / / [id number] Knee Hrhk Mod Rot Hng Bushing - [id number] Implanted:Qty: 1 on 03/03/2023 by Cholo Shah MD at OR [facility] Right: Knee [employer] : ORTHOPAEDICS 11/21/2026 6481-2-110 / / [id number] Knee Stem Crv Mod Mrs 48j421 - [id number] Implanted:Qty: 1 on 03/03/2023 by Cholo Shah MD at OR [facility] Right: Knee [employer] : ORTHOPAEDICS 10/02/2026 6485-3-715 / / [id number] Tib Mrh Cross Bear Long Xs/Xl - [id number] Implanted:Qty: 1 on 03/03/2023 by Cholo Shah MD at OR [facility] Right: Knee [employer] : ORTHOPAEDICS 12/05/2025 6481-2-103 / / [id number] Knee Tib Bumper Rot Hng Nue - [id number] Implanted:Qty: 1 on 03/03/2023 by Cholo Shah MD at OR [facility] Right: Knee [employer] : ORTHOPAEDICS 07/15/2027 6481-2-130 / / [id number] Distal Femoral Component Implanted:Qty: 1 on 03/03/2023 by Cholo Shah MD at OR [facility] Right: Knee [employer] : ORTHOPAEDICS 08/23/2023 6495-2-040 / / [id number] Knee Axle Hrhk Rot Mod Hng - [id number] Implanted:Qty: 1 on 03/03/2023 by Cholo Shah MD at OR [facility] Right: Knee [employer] : ORTHOPAEDICS 06/30/2027 6481-2-120 / / [id number] Restrictors Med Cmnt S227-9594 - [id number] Implanted:Qty: 1 on 03/03/2023 by Cholo Shah MD at OR [facility] Right: Knee [employer] : ORTHOPAEDICS 11/18/2027 R706-4674 / / Cement Bone Full Mix Surg Simp - [id number] Implanted:Qty: 1 on 03/03/2023 by Cholo Shah MD at OR [facility] Right: Knee [employer] : ORTHOPAEDICS 07/09/2025 6191-1-010 / / [id number] Cement Bone Full Mix Surg Simp - [id number] Implanted:Qty: 1 on 03/03/2023 by Cholo Shah MD at OR [facility] Right: Knee [employer] : ORTHOPAEDICS 06/08/2025 6191-1-010 / / [id number] Cement Bone Full Mix Surg Simp - [id number] Implanted:Qty: 1 on 03/03/2023 by Cholo Shah MD at OR [facility] Right: Knee [employer] : ORTHOPAEDICS 05/08/2025 6191-1-010 / / [id number] Knee Fem Gmrs Dis Std R - [id number] Implanted:Qty: 1 on 03/10/2023 by Cholo Shah MD at OR [facility] Right: Knee [employer] : ORTHOPAEDICS 10/21/2027 6495-2-040 / / [id number] Knee Hrhk Mod Rot Hng Bushing - [id number] Implanted:Qty: 1 on 03/10/2023 by Cholo Shah MD at OR [facility] Right: Knee [employer] : ORTHOPAEDICS 01/29/2027 6481-2-110 / / [id number] Knee Axle Hrhk Rot Mod Hng - [id number] Implanted:Qty: 1 on 03/10/2023 by Cholo Shah MD at OR [facility] Right: Knee [employer] : ORTHOPAEDICS 09/15/2027 6481-2-120 / / [id number] Tib Mrh Cross Bear Long Xs/Xl - [id number] Implanted:Qty: 1 on 03/10/2023 by Cholo Shah MD at OR [facility] Right: Knee [employer]IA : ORTHOPAEDICS 09/30/2027 6481-2-103 / / [id number] Knee Hrhk Mod Rot Hng Bushing - [id number] Implanted:Qty: 1 on 03/10/2023 by Cholo Shah MD at OR [facility] Right: Knee [employer]IA : ORTHOPAEDICS 04/24/2027 6481-2-110 / / [id number] Knee Tib Bumper Rot Hng Nue - [id number] Implanted:Qty: 1 on 03/10/2023 by Cholo Shah MD at OR [facility] Right: Knee [employer]IA : ORTHOPAEDICS 10/15/2027 6481-2-130 / / [id number] documented as of this encounter Advance Directives Documents on File Type Date Recorded Patient Senior Controller Expl 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 Care Teams Chronic Manager Relationship Specialty Start Date End Date Kat Hawthorne DO [address] [facility] [place] [address] PCP - General Family Medicine 08/20/22 documented as of this encounter
--- OUTSIDE RECORDS SUMMARY | 2024-07-24 20:35 | External Medical Summary | Summary of Care ---
Author Name Unknown Organization [facility] Address [address] [place] [address] Phone [phone] Care Team Providers Care Shaper And Presser Name Role Phone Kat Hawthorne Primary Care Provider [phone] Reason for Visit * Reason Onset Date Comments Med Request 07/05/2024 Patient has call ed in and is asking for a refill for her dentist appointment on 08/01/24 for an antibiotic from her Knee surgery by Dr Shah. Encounter Details Date Type Department Care Team (Late st Contact Info) Description 07/05/2024 Telephone [facility] [address] [place] [address] Cholo Shah MD [address], [place] [id number] Med Request (Patient has called in and is ... Allergies Active Allergy Reactions Criticality Noted Date [...] 01/26/2017 Topical betadine tolerated Shellfish-Derived Products High 2 Other reaction(s): NAUSEA,DIARRHEA, VOMITING Other Reaction(s): NAUSEA,DIARRHEA, VOMITING documented as of this encounter (statuses as of 07/05/2024) Medications Medication Sig Dispensed Refills Start Date [...] by mouth in the morning. Active Nystatin 288307 UNIT/GM External Powder (Nystop) Apply topically to [...] 4 Active predniSONE 10 MG Oral Tablet (Deltasone)Indicati ons:Acquired hemolytic anemia (HCC) Take 1 Tablet by [...] needed for Anxiety. 60 Tablet 4 Active Gabapentin 300 MG Oral Capsule (Neurontin) TAKE 1 CAPSULE BY MOUTH THREE TIMES DAILY 90 Capsule 9 4 Active Amoxicillin 500 MG Oral Capsule (Amoxil) Take 4 Capsules by mouth as needed (one hour prior to dental procedure). 4 Capsule 3 4 Active Amoxicillin 500 MG Oral Capsule (Amoxil) Take 4 Capsules by mouth as needed (one hour prior to dental procedure) for up to 1 dose. 4 Capsule 3 3 07/05/20 24 Discontinu ed(Refill) documented as of this encounter (statuses as of 07/05/2024) Active Problems Problem Noted Date Diagnosed Date [...] fall No pain, no diarrhea currently Old GA (myocardial infarction) 04/14/2023 Hyperlipidemia 04/14/2023 History of [...] as of this encounter (statuses as of 07/05/2024) Resolved Problems Problem Noted Date Diagnosed Date [...] & Plan: S/P wound vac placement at [facility] On doxycycline 100 mg BID x [...] History - s/p surgery & treatment per SKIN INSTALLER note on 11/18/23 Ca 125: 68.8 [...] as of this encounter (statuses as of 07/05/2024) Immunizations Name Administration Dates Next Due COVID-19 mRNA, LNP-s, No Pre serve, 2-Dose Series (Feedo) 08/23/2021,01/26/2021,01/05/2021 Pneumococcal Conjugate Vacc, 13 Valent (Prevnar) [...] encounter Miscellaneous Notes * Telephone Encounter - Cholo Shah MD - 07/05/2024 5:24 PM EDT I have signed a prescription for the patient, for her dental prophylaxis. I called the patient's mobile number and left a recorded message informing her that the prescription is refilled. Cholo Shah MD * Telephone Encounter - Ingrid Patel OSA - 07/05/2024 2:11 PM EDT Patient has called in and is asking for a refill for her dentist appointment on 08/01/24 for an antibiotic from her Knee surgery by Dr Shah. Please send this to [facility] in [facility]. The fax [phone] and their phone is # [phone]. Please advice if this can be done and return her call back to this mobile # [phone] so she knows when she can pick it up. documented in this encounter Plan of Treatment Upcoming Encounters Date Type Department Care Team (Late st Contact Info) Description 08/22/2024 2:15 PM EDT Office Visit Hematology/Oncology [facility] [address] [place] [phone] Robert Marion MD [address] [facility] [address] [place] [address] 08/29/2024 11:00 AM EDT Office Visit Cardiology, [facility] [address] [place] [address] Shilpi Bailey PA-C [address] [facility] [place] [address] 10/07/2024 11:50 AM EST Office Visit [facility] [address] [place] [phone] aKt Hawthorne DO [address] [place] [address] Scheduled Procedures Name Priority Associated Diagnoses Date/Ti [...] Additional history exists CKD PHOS USE SMARTSET 38888 03/21/202503/09, 03/16/2023, 03/15/2023, Additional history exists Depression Screening 03/21/2025 03/21/2024 Albumin/Creatinine Ratio 03/22/2025 024, 09/04/2021, 01/27/2019, Additional history exists Diabetic Foot Exam 04/27/2025 04/27/2024 O2 ASSESSMENT COMPLETED IN PAST YEAR FOR COPD 06/13/2025 06/13/2024 CKD HGB USE SMARTSET 17385 07/04/202507/04, 07/04/2024, 06/20/2024, Additional history exists Lipid [...] this encounter Medical Devices Implanted Type Area Duck Farmer Device Identifier Shelf Expiration Date Model / Serial / Lot Cement Bone Simplex Hv & G - [id number] Implanted:Qty: 2 on 01/05/2023 by Harley Nguyen, DO at OR [facility] Left: Knee ROSALIA : ORTHOPAEDICS 06/08/2024 6195-1-010 / / [id number] Component Femoral Size 5 - [id number] Implanted:Qty: 1 on 01/05/2023 by Harley Nguyen, DO at OR [facility] Left: Knee ROSALIA : ORTHOPAEDICS 08/09/2026 5510-F-501 / / [id number] Knee Tria Syetric X3 10x36 - [id number] Implanted:Qty: 1 on 01/05/2023 by Harley Nguyen, DO at OR [facility] Left: Knee ROSALIA : ORTHOPAEDICS 09/24/2027 5550-G-360 -E / / [id number] Baseplate Tib 5 Knee - [id number] Implanted:Qty: 1 on 01/05/2023 by Harley Nguyen, DO at OR [facility] Left: Knee ROSALIA : ORTHOPAEDICS 12/14/2027 5521-B-500 / / [id number] Knee X3 Ins Pos Cs Sz5 9 - [id number] Implanted:Qty: 1 on 01/05/2023 by Harley Nguyen, DO at OR [facility] Left: Knee ROSALIA : ORTHOPAEDICS 11/19/2027 5531-G-509 -E / / [id number] Cement Bone Full Mix Surg Simp - [id number] Implanted:Qty: 1 on 03/03/2023 by Cholo Shah MD [place] [facility] Right: Knee ROSALIA : ORTHOPAEDICS 05/08/2025 6191-1-010 / / [id number] Knee Tib Comp Poly Krh 8 Lg - [id number] Implanted:Qty: 1 on 03/03/2023 by Cholo Shah MD [place] [facility] Right: Knee ROSALIA : ORTHOPAEDICS 07/19/2023 6485-2-308 / / [id number] Knee Hrhk Mod Rot Hng Bushing - [id number] Implanted:Qty: 1 on 03/03/2023 by Cholo Shah MD [place] [facility] Right: Knee ROSALIA : ORTHOPAEDICS 01/09/2027 6481-2-110 / / [id number] Knee Hrhk Mod Rot Hng Bushing - [id number] Implanted:Qty: 1 on 03/03/2023 by Cholo Shah MD at [place] [facility] Right: Knee ROS[employer]IA : ORTHOPAEDICS 11/21/2026 6481-2-110 / / [id number] Knee Stem Crv Mod Mrs 48s971 - [id number] Implanted:Qty: 1 on 03/03/2023 by Cholo Shah MD at [place] [facility] Right: Knee ROS[employer]IA : ORTHOPAEDICS 10/02/2026 6485-3-715 / / [id number] Tib Mrh Cross Bear Long Xs/Xl - [id number] Implanted:Qty: 1 on 03/03/2023 by Cholo Shah MD at [place] [facility] Right: Knee ROS[employer]IA : ORTHOPAEDICS 12/05/2025 6481-2-103 / / [id number] Knee Tib Bumper Rot Hng Nue - [id number] Implanted:Qty: 1 on 03/03/2023 by Cholo Shah MD at [place] [facility] Right: Knee ROS[employer]IA : ORTHOPAEDICS 07/15/2027 6481-2-130 / / [id number] Distal Femoral Component Implanted:Qty: 1 on 03/03/2023 by Cholo Shah MD at [place] [facility] Right: Knee ROSALIA : ORTHOPAEDICS 08/23/2023 6495-2-040 / / [id number] Knee Axle Hrhk Rot Mod Hng - [id number] Implanted:Qty: 1 on 03/03/2023 by Cholo Shah MD at [place] [facility] Right: Knee ROSALIA : ORTHOPAEDICS 06/30/2027 6481-2-120 / / [id number] Restrictors Med Cmnt R154-6946 - [id number] Implanted:Qty: 1 on 03/03/2023 by Cholo Shah MD at [place] [facility] Right: Knee ROS[employer]IA : ORTHOPAEDICS 11/18/2027 B270-2117 / / Cement Bone Full Mix Surg Simp - [id number] Implanted:Qty: 1 on 03/03/2023 by Cholo Shah MD at [place] [facility] Right: Knee ROS[employer]IA : ORTHOPAEDICS 07/09/2025 6191-1-010 / / [id number] Cement Bone Full Mix Surg Simp - [id number] Implanted:Qty: 1 on 03/03/2023 by Cholo Shah MD at [place] [facility] Right: Knee ROSALIA : ORTHOPAEDICS 06/08/2025 6191-1-010 / / [id number] Cement Bone Full Mix Surg Simp - [id number] Implanted:Qty: 1 on 03/03/2023 by Cholo Shah MD at [place] [facility] Right: Knee ROS[employer]IA : ORTHOPAEDICS 05/08/2025 6191-1-010 / / [id number] Knee Fem Gmrs Dis Std R - [id number] Implanted:Qty: 1 on 03/10/2023 by Cholo Shah MD at [place] [facility] Right: Knee ROSALIA : ORTHOPAEDICS 10/21/2027 6495-2-040 / / [id number] Knee Hrhk Mod Rot Hng Bushing - [id number] Implanted:Qty: 1 on 03/10/2023 by Cholo Shah MD at [place] [facility] Right: Knee ROSALIA : ORTHOPAEDICS 01/29/2027 6481-2-110 / / [id number] Knee Axle Hrhk Rot Mod Hng - [id number] Implanted:Qty: 1 on 03/10/2023 by Cholo Shah MD at [place] [facility] Right: Knee ROSALIA : ORTHOPAEDICS 09/15/2027 6481-2-120 / / [id number] Tib Mrh Cross Bear Long Xs/Xl - [id number] Implanted:Qty: 1 on 03/10/2023 by Cholo Shah MD at [place] [facility] Right: Knee ROSALIA : ORTHOPAEDICS 09/30/2027 6481-2-103 / / [id number] Knee Hrhk Mod Rot Hng Bushing - [id number] Implanted:Qty: 1 on 03/10/2023 by Cholo Shah MD at [place] [facility] Right: Knee ROSALIA : ORTHOPAEDICS 04/24/2027 6481-2-110 / / [id number] Knee Tib Bumper Rot Hng Nue - [id number] Implanted:Qty: 1 on 03/10/2023 by Cholo Shah MD at [place] [facility] Right: Knee ROSALIA : ORTHOPAEDICS 10/15/2027 6481-2-130 / / [id number] documented as of this encounter Advance Directives Documents on File Type Date Recorded 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 Care Teams Shaper And Presser Relationship Specialty Start Date End Date Kat Hawthorne DO [address] [facility] [address] PCP - General Family Medicine 08/20/22 documented as of this encounter
--- OUTSIDE RECORDS SUMMARY | 2024-07-24 20:36 | External Medical Summary | Summary of Care ---
Author Name Unknown Organization [facility] Address [address] [place] [address] Phone [phone] Care Team Providers Care Slunk Skinner Name Role Phone Kat Hawthorne Primary Care Provider [phone] Encounter Details Date Type Department Care Team [...] IN GASIndications:ILD (interstitial lung disease) ([facility]),Chronic respiratory failure with hypoxia (HCC) Use 2 LPM with exertion and 3 LPM with sleep. Needs small portable tanks, standing concentrator DME: [facility] 1 Each 07/02/2022 Active Proventil HFA 108 (90 Base) MCG/ACT Inhalation Aerosol SolutionIndications: ILD (interstitial lung disease) ([facility]) Inhale by mouth 2 Puffs [...] by mouth in the morning. Active Nystatin 415615 UNIT/GM External Powder (Nystop) Apply topically to [...] fall No pain, no diarrhea currently Old [place] (myocardial infarction) 04/14/2023 Hyperlipidemia 04/14/2023 History of [...] & Plan: S/P wound vac placement at [facility] On doxycycline 100 mg BID x 14 [...] History - s/p surgery & treatment per ELECTRICAL ASSEMBLY SUPERVISOR note on 11/18/23 Ca 125: 68.8 [...] 08/22/2024 2:15 PM EDT Office Visit Hematology/Oncology [facility] [address] [facility] [address] [place] [phone] Robert Marion MD [address] [facility] [place] [address] 08/29/2024 11:00 AM EDT Office Visit Cardiology, [facility] [address] [place] [address] Shilpi Bailey PA-C [address] [place] [address] 10/07/2024 11:50 AM EST Office Visit [facility] [address] [phone] Kat Hawthorne DO [address] [facility] [place] [address] Scheduled Procedures Name Priority Associated Diagnoses Date/Ti [...] Additional history exists CKD PHOS USE SMARTSET 68618 03/21/202503/09, 03/16/2023, 03/15/2023, Additional history exists Depression Screening 03/21/2025 03/21/2024 Albumin/Creatinine Ratio 03/22/2025 024, 09/04/2021, 01/27/2019, Additional history exists Diabetic Foot Exam 04/27/2025 04/27/2024 O2 ASSESSMENT COMPLETED IN PAST YEAR FOR COPD 06/13/2025 06/13/2024 CKD HGB USE SMARTSET 23652 07/04/202507/04, 07/04/2024, 06/20/2024, Additional history exists Lipid [...] this encounter Medical Devices Implanted Type Area Systematic Theology Professor Device Identifier Shelf Expiration Date Model / Serial / Lot Cement Bone Simplex Hv & G - [id number] Implanted:Qty: 2 on 01/05/2023 by Harley Nguyen, DO at OR [facility] Left: Knee ROSALIA : ORTHOPAEDICS 06/08/2024 6195-1-010 / / [id number] Femoral Size 5 - [id number] Implanted:Qty: 1 on 01/05/2023 by Harley Nguyen, DO at OR [facility] Left: Knee ROSALIA : ORTHOPAEDICS 08/09/2026 5510-F-501 / / [id number] Knee Tria Syetric X3 10x36 - [id number] Implanted:Qty: 1 on 01/05/2023 by Harley Nguyen DO at OR [facility] Left: Knee ROSALIA : ORTHOPAEDICS 09/24/2027 5550-G-360 -E / / [id number] Baseplate Tib 5 Knee - [id number] Implanted:Qty: 1 on 01/05/2023 by Harley Nguyen DO at OR [facility] Left: Knee ROSALIA : ORTHOPAEDICS 12/14/2027 5521-B-500 / / [id number] Knee X3 Ins Pos Cs Sz5 9 - [id number] Implanted:Qty: 1 on 01/05/2023 by Harley Nguyen DO at OR [facility] Left: Knee ROSALIA : ORTHOPAEDICS 11/19/2027 5531-G-509 -E / / [id number] Cement Bone Full Mix Surg Simp - [id number] Implanted:Qty: 1 on 03/03/2023 by Cholo Shah MD at OR [facility] Right: Knee ROSALIA : ORTHOPAEDICS 05/08/2025 6191-1-010 / / [id number] Knee Tib Comp Poly Krh 8 Lg - [id number] Implanted:Qty: 1 on 03/03/2023 by Cholo Shah MD at OR [facility] Right: Knee ROSALIA : ORTHOPAEDICS 07/19/2023 6485-2-308 / / [id number] Knee Hrhk Mod Rot Hng Bushing - [id number] Implanted:Qty: 1 on 03/03/2023 by Cholo Shah MD at OR [facility] Right: Knee ROSALIA : ORTHOPAEDICS 01/09/2027 6481-2-110 / / [id number] Knee Hrhk Mod Rot Hng Bushing - [id number] Implanted:Qty: 1 on 03/03/2023 by Cholo Shah MD at OR [facility] Right: Knee ROSALIA : ORTHOPAEDICS 11/21/2026 6481-2-110 / / [id number] Knee Stem Crv Mod Mrs 30u695 - [id number] Implanted:Qty: 1 on 03/03/2023 by Cholo Shah MD at OR [facility] Right: Knee ROSALIA : ORTHOPAEDICS 10/02/2026 6485-3-715 / / [id number] Tib Mrh Cross Bear Long Xs/Xl - [id number] Implanted:Qty: 1 on 03/03/2023 by Cholo Shah MD at OR [facility] Right: Knee ROSALIA : ORTHOPAEDICS 12/05/2025 6481-2-103 / / [id number] Knee Tib Bumper Rot Hng Nue - [id number] Implanted:Qty: 1 on 03/03/2023 by Cholo Shah MD at OR [facility] Right: Knee ROSALIA : ORTHOPAEDICS 07/15/2027 6481-2-130 / / [id number] Distal Femoral Component Implanted:Qty: 1 on 03/03/2023 by Cholo Shah MD at OR [facility] Right: Knee ROSALIA : ORTHOPAEDICS 08/23/2023 6495-2-040 / / [id number] Knee Axle Hrhk Rot Mod Hng - [id number] Implanted:Qty: 1 on 03/03/2023 by Cholo Shah MD at OR [facility] Right: Knee ROSALIA : ORTHOPAEDICS 06/30/2027 6481-2-120 / / [id number] Restrictors Med Cmnt C891-1987 - [id number] Implanted:Qty: 1 on 03/03/2023 by Cholo Shah MD at OR [facility] Right: Knee ROSALIA : ORTHOPAEDICS 11/18/2027 H493-4375 / / Cement Bone Full Mix Surg Simp - [id number] Implanted:Qty: 1 on 03/03/2023 by Cholo Shah MD at OR [facility] Right: Knee ROSALIA : ORTHOPAEDICS 07/09/2025 6191-1-010 / / [id number] Cement Bone Full Mix Surg Simp - [id number] Implanted:Qty: 1 on 03/03/2023 by Cholo Shah MD at OR [facility] Right: Knee ROSALIA : ORTHOPAEDICS 06/08/2025 6191-1-010 / / [id number] Cement Bone Full Mix Surg Simp - [id number] Implanted:Qty: 1 on 03/03/2023 by Cholo Shah MD at OR [facility] Right: Knee ROSALIA : ORTHOPAEDICS 05/08/2025 6191-1-010 / / [id number] Knee Fem Gmrs Dis Std R - [id number] Implanted:Qty: 1 on 03/10/2023 by Cholo Shah MD at OR [facility] Right: Knee ROSALIA : ORTHOPAEDICS 10/21/2027 6495-2-040 / / [id number] Knee Hrhk Mod Rot Hng Bushing - [id number] Implanted:Qty: 1 on 03/10/2023 by Cholo Shah MD at OR [facility] Right: Knee ROSALIA : ORTHOPAEDICS 01/29/2027 6481-2-110 / / [id number] Knee Axle Hrhk Rot Mod Hng - [id number] Implanted:Qty: 1 on 03/10/2023 by Cholo Shah MD at OR [facility] Right: Knee ROSALIA : ORTHOPAEDICS 09/15/2027 6481-2-120 / / [id number] Tib Mrh Cross Bear Long Xs/Xl - [id number] Implanted:Qty: 1 on 03/10/2023 by Cholo Shah MD at OR [facility] Right: Knee ROSALIA : ORTHOPAEDICS 09/30/2027 6481-2-103 / / [id number] Knee Hrhk Mod Rot Hng Bushing - [id number] Implanted:Qty: 1 on 03/10/2023 by Cholo Shah MD at OR [facility] Right: Knee ROSALIA : ORTHOPAEDICS 04/24/2027 6481-2-110 / / [id number] Knee Tib Bumper Rot Hng Nue - [id number] Implanted:Qty: 1 on 03/10/2023 by Cholo Shah MD at OR [facility] Right: Knee ROSALIA : ORTHOPAEDICS 10/15/2027 6481-2-130 / / [id number] documented as of this encounter Advance Directives Documents on File Type Date Recorded Patient Clinical Documentation Nurse Expl 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 Care Teams Slunk Skinner Relationship Specialty Start Date End Date Kat Hawthorne DO [address] [facility] [place] [address] PCP - General Family Medicine 08/20/22 documented as of this encounter
--- OUTSIDE RECORDS SUMMARY | 2024-07-24 20:36 | External Medical Summary | Summary of Care ---
Author Name Unknown Organization [facility] Address [address] [place] [address] Phone [phone] Care Team Providers Care Bpo Specialist Name Role Phone Kat Hawthorne Primary Care Provider [phone] Reason for Visit * Reason Comments Joint Pain Right shoulder Encounter Details Date Type Department Care Team (Latest Contact Info) Description 07/04/2024 10:00 AM EDT Office Visit [facility]opa[facility] [address] [place] [address] Davon Fulton MD [address] [place] [phone] Musculoskeletal pain of right upper extremity*; Nontraumatic complete tear of right rotator cuff Allergies Active Allergy Reactions Criticality Noted Date [...] IN GASIndications:ILD (interstitial lung disease) ([facility]),Chronic respiratory failure with hypoxia (HCC) Use 2 LPM with exertion and 3 LPM with sleep. Needs small portable tanks, standing concentrator DME: [employer] 1 Each 07/02/2022 Active Proventil HFA 108 (90 Base) MCG/ACT Inhalation Aerosol SolutionIndications: ILD (interstitial lung disease) ([facility]) Inhale by mouth 2 Puffs [...] by mouth in the morning. Active Nystatin 385310 UNIT/GM External Powder (Nystop) Apply topically to [...] History - s/p surgery & treatment per [facility] [facility] note on 11/18/23 Ca 125: 68.8 U/mL [...] as of this encounter Progress Notes * Davon Fulton MD - 07/04/2024 11:08 AM EDT CHIEF COMPLAINT: Chief Complaint Patient presents with Joint Pain Right shoulder Impression: (M79.601) Musculoskeletal pain of right upper extremity (primary encounter diagnosis) (M75.121) Nontraumatic complete tear of right rotator cuff Plan: We discussed the diagnosis and treatment options with the patient today. Patient's shoulders pain is consistent with chronic rotator cuff tear. Her complaint of biceps pain are secondary to the strap from the monitor. At this time we would notrecommend any further treatment except for ice and home therapy program for the shoulder. Patient would benefit from a home therapy program. She states that she is unable to travel secondary to be in in the wheelchair and on oxygen. Follow Up: Return if symptoms worsen or fail to improve.. If her symptoms of pain in the shoulder worsen she may benefit from a cortisone injection. There are no Patient Instructions on file for this visit. HISTORY OF PRESENT ILLNESS: Orin Bah is a 68 year old right hand dominant female in a wheelchair and on home oxygen who presents to orthopedic Sports Medicine for consultation at the request of Kat Hawthorne DO to uswith a history of right shoulder pain. Patient presents today stating that she had to wear arm monitor with a tight strap. She feels that may have started pain over the right biceps area. That is where she localizes symptoms. She has also had chronic pain in the right shoulder. States he has had difficulty with lifting the arm up. She feels this may have been aggravated by the arm strap. She has had no formal treatment for the right shoulder. She states she has had a rotator cuff tear on the left and has undergone some exercises in the past. Wakes at night? no. Physical Therapy? no. Injections? no. Nursing Notes: Brooke Reeves, OUTSIDE INSTALLATION MACHINIST 07/04/24 1006 Signed Right shoulder pain, wore monitor for [facility] for 3 weeks pain when reaching rquested xrays from [facility] 07/01/24. Pt is RHD. Past Surgical History: Procedure Laterality Date ARTHROPLASTY KNEE TOTAL Left 01/05/2023 ROBOTIC ARTHROPLASTY KNEE TOTAL performed by Harley Nguyen DO at OR [facility] ARTHROPLASTY KNEE TOTAL Right 03/03/2023 ARTHROPLASTY KNEE TOTAL performed by Cholo Shah MD at OR [facility] BONE DEBRIDEMENT, FIRST 20 CM2 Right 03/10/2023 DEBRIDEMENT SKIN SUBCUTANEOUS TISSUE MUSCLE AND BONE performed by Cholo Shah MD at OR [facility] COLONOSCOPY, DIAGNOSTIC (RECTUM) 09/25/2017 normal, repeat 10 yrs/[facility] CYSTOSCOPY Left 01/18/2016 stent removal EGD, FLEXIBLE, DIAGNOSTIC 09/25/2017 normal bx/[facility] EGD, FLEXIBLE, DIAGNOSTIC N/A 09/25/2022 small hiatal hernia/EGD/[place] EGD, W/ENDOSCOPIC US N/A 01/20/2023 [facility], EGD/ EUS, reversed gastric bypass found , EUS - many stones found, fatty liver / no specimenscollected / ENDOSCOPY, ERCP, W/STONE REMOVAL N/A 01/20/2023 [facility], ERCP , Choledocholithiasis found & complete removal accomplished by biliary spihincterotomy, stent placed / no bx's / repeat ERCP 8 weeks follow up / EXPLORATION OF ABDOMEN N/A 09/04/2020 EXPLORATORY LAPAROTOMY performed by Harjeet Li MD at OR [facility] GASTRIC REVISION FOR OBESITY 1980 Gastric Bypass reversed same yr IMPLANTABLE ACCESS SYST PERC 10/22/2020 INFORMATION Left 04/2021 L pacemaker insertion @ [facility]. INJECT DX/THER SUBSTANCE INTERLAMINAR LUMBAR/SACRAL W IMAGE GUIDE 09/19/2021 INJECTION SPINE LUMBAR OR SACRAL performed by Camron Pathak DO at OR [facility] KNEE ARTHROSCOPY, DIAGNOSTIC 1999 Knee Arthroscopy MISCELLANEOUS ORDER ([facility] ONLY) 1979 gastric stapling REMOVAL OF KIDNEY STONE x2 REMOVAL OF TONSILS, AGE 12+ at age 10 REPAIR INITIAL INCISIONAL OR VENTRAL HERNIA; REDUCIBLE N/A 04/27/2017 REPAIR OF VENTRAL HERNIA [facility] DR. WORRELL 04/27/17 REVISE KNEE JOINT REPLACEMENT Right 03/10/2023 TOTAL KNEE REVISION FEMUR AND TIBIA performed by Cholo Shah MD at OR [facility] TOTAL ABD HYSTERECTOMY W/WO REMOVAL OF TUBE(S) N/A 09/04/2020 TOTAL ABDOMINAL HYSTERECTOMY WITH OR WITHOUT TUBES AND OVARIES performed by Harjeet Li MD at OR [facility] Review of patient's allergies indicates: Allergen Reactions Clindamycin Other reaction(s): PT CONTRACTED C-DIFF Levofloxacin Edema Other Other reaction(s): LE swelling and blistering Shellfish-Derived Products Other reaction(s): NAUSEA,DIARRHEA, VOMITING Other Reaction(s): NAUSEA,DIARRHEA, VOMITING Clindamycin Hcl Pt states she developed c diff Doxil [Doxorubicin Liposome] Infusion reaction Doxorubicin Other reaction(s): Hypoxia Paclitaxel Severe infusion reaction Other reaction(s): facial flushing, bradycardia Shellfish Allergy Topical betadine tolerated Adhesive Tape Other reaction(s): SKIN BLISTERS SOME TIMES; steri strips tolerated Other Reaction(s): SKIN BLISTERS SOME TIMES Current Outpatient Medications Medication Sig Dispense Refill [...] as needed for Wheezing. 6.7 g 3 SF 5000 Plus 1.1 % Dental Cream APPLY A THIN LAYER TO TOOTHBRUSH AND BRUSH ONCE DAILY FOR 2 MINUTES, SPIT OUT, DO NOT RINSE Acetaminophen 325 MG Oral Tablet (Tylenol) Take [...] Capsule by mouth in the morning. Nystatin 955281 UNIT/GM External Powder (Nystop) Apply topically to [...] 2 times a day. 28 g 1 Fosfomycin Tromethamine 3 GM Oral Packet (Monurol) Take 3 g by mouth once a week. 12 Packet 2 Bumetanide 2 MG Oral Tablet TAKE 1 TABLET BY MOUTH TWICE DAILY (IN THE MORNING AND AT NOON) 60 Tablet 5 hydrOXYzine HCl 25 MG Oral Tablet TAKE 1 TABLET BY MOUTH AT BEDTIME NEEDED FOR ITCHING 30 Tablet3 metFORMIN HCl ER 500 MG Oral Tablet Extended Release 24 Hour (Glucophage XR) Take 1 Tablet by mouthin the morning. 30 Tablet 11 Sertraline HCl 100 MG Oral Tablet (Zoloft) Take 1 Tablet by mouth in the morning. 90 Tablet 3 amLODIPine Besylate 5 MG Oral Tablet (Norvasc) TAKE 1 TABLET BY MOUTH IN THE MORNING 90 Tablet 1 predniSONE 10 MG Oral Tablet (Deltasone) Take 1 Tablet by mouth in the morning. 30 Tablet 0 Budesonide 0.5 MG/2ML Inhalation Suspension (Pulmicort) Inhale 0.5 mg via nebulizer in the morning.180 mL 3 Cyclobenzaprine HCl 5 MG Oral Tablet (Flexeril) Take 1 tablet by mouth twice daily as needed for muscle spasm 60 Tablet 2 LORazepam 0.5 MG Oral Tablet (Ativan) Take 1 Tablet by mouth every 8 hours as needed for Anxiety. 60 Tablet 0 Gabapentin 300 MG Oral Capsule (Neurontin) TAKE 1 CAPSULE BY MOUTH THREE TIMES DAILY 90 Capsule 9 No current facility-administered medications for this visit. Social History Socioeconomic History Marital status: Tobacco Use Smoking status: Former Current packs/day: 0.00 Average packs/day: (0.1 ttl pk-yrs) Types: Cigarettes Start date: 09/10/2006 Quit date: 09/10/2011 Years since quittin.8 Passive exposure: Never Smokeless tobacco: Never Tobacco comments: Only smoked on weekends when went to bars. Vaping Use Vaping status: Never Used Substance and Sexual Activity Alcohol use: No Drug use: No Sexual activity: Not Currently Partners: Male Social History Narrative No pets No mold Social Determinants of Health Financial Resource Strain: Low Risk (03/21/2024) Financial Resource Strain Do you have any trouble paying for your medications, or do you think you might in the future? (Adult - for ages 18 years and over): No Food Insecurity: No Food Insecurity (03/21/2024) Food Insecurity Do you need food for this week? (Adult - for ages 18 years and over): No Transportation Needs: No Transportation Needs (03/21/2024) Transportation Needs Do you have trouble getting a ride to medical visits or work? (Adult - for ages 18 years and over):Never True Social Connections: Socially Integrated (03/21/2024) Social Connections How often do you feel lonely or isolated from those around you? (Adult - for ages 18 years and over): Never Housing Stability: Low Risk (03/21/2024) Housing Stability Do you currently live in a fpc or have no steady place to sleep at night? (Adult - for ages 18 years and over): No Do you think you are at risk of becoming homeless? (Adult - for ages 18 years and over): No Family History Problem Relation Name Age of Onset Lung Disorder Grandfather (Maternal) Stroke Grandmother (Paternal) Heart Disorder Grandfather (Paternal) Heart Disorder Father Musculo-skeletal Disorder Mother lupus and schleraderma Breast Cancer Aunt (Unspecified) pa aunt Other (skin disorders) Aunt (Unspecified) denies melanoma or other skin disorders Liver disease Brother fatty liver Cancer Nephew sarcoma of appendix Past Medical History: Diagnosis Date Acute blood loss anemia 03/04/2023 Acute on chronic diastolic CHF (congestive heart failure) ([facility]) 03/21/2024 Adding I50.33-Acute on chronic diastolic CHF (congestive heart failure) ([facility]) Dx to History Anemia Anemia in other chronic diseases classified elsewhere Anxiety Cancer ([facility]) ovarian Class 2 obesity in adult 04/23/2010 Per Obesity Protocol, #19 ICD-10 update of inactive term MORE SPECIFIED CODE LISTED ON PL Clostridium difficile infection Depressive disorder, not elsewhere classified Dysmenorrhea Esophageal reflux Hereditary hemolytic anemia, unspecified ([facility]) HTN, goal below 140/90 Hypertension with congestive heart failure and renal failure ([facility]) 04/14/2023 Hypertensive kidney disease with stage 3a chronic kidney disease ([facility]) 09/17/2020 Per CKD protocol Hyponatremia 03/09/2023 Kidney disease, chronic, stage III (GFR 30-59 ml/min) ([facility]) Kidney stone Lumbar stenosis Nephrolithiasis 12/29/2016 Nocturnal hypoxia 09/01/2019 OA (osteoarthritis) Obesity, morbid (more than 100 lbs over ideal weight or BMI > 40) ([facility]) 04/23/2010 Per Obesity Protocol, #19 ICD-10 update of inactive term Open wound of foot, right, subsequent encounter BERRY (obstructive sleep apnea) Ovarian cancer on left ([facility]) History - s/p surgery & treatment per [employer] note on 11/18/23 Ca 125: 68.8 U/mL Ca 19-9: 79.4 CEA: 10.2 Pelvic U/S: There is a heterogenous, solid and cystic mass measuring 13.7 x 9.5 x 11.4 cm. There may be a thick septation with a polypoid intraluminal mass. Ovarian malignancy is favored over necrotic myoma. CT A/P: Generalized nodular uterus with the uterus measuring 11.3 centimeters in a PAF (paroxysmal atrial fibrillation) (HCC) Recurrent UTI Sciatica SOB (shortness of breath) 09/10/2012 ROS: Constitional: No change in weight, No weakness, No fatigue, and No fevers, sweats, or chills Skin: No edema, No rash, and No itching Psychiatric: No depression, No anxiety, and No psychosis Xray: I personally reviewed the xrays. Patient underwent x-rays of the right shoulder the x-rays doshow evidence of narrowing of the subacromial space consistent with a chronic rotator cuff tear. Noevidence of fracture. No dislocation. PHYSICAL EXAM: General: generally well-nourished and in no acute distress HEENT: normocephalic, atraumatic, EOMI, sclera anicteric. Psych: mood and affect normal , cooperative Card: Peripheral pulses: normal in affected extremity (s) Resp: equal chest rise, non-tachypneic, non-labored breathing Skin: no rash, normal Neuro: Coordination: normal; Sensation: normal on affected extremity (s) Skin: normal. C-Spine evaluation: Does patient have neck symptoms and/or numbness/tingling in upper extremities: no Inspection: bilateral and symmetrical without apparent abnormality Exam is limited secondary to patient in the wheelchair Shoulder ROM: Pain out of proportion ABD (170') - Right - 50 degrees Left - 100 degrees ER (40') - Right - 20 degrees Left - 20 degrees Passive ER -Bilateral and equal IR (T10) - not assessed FF (180') - Right - 90 degrees Left - 100 degrees Scapular elevation with forward flexion:negativeBilateral Tenderness/Location: yes - SS , IS, Biceps , AC , and Traps/Levs Inspection AC Joint Prominence: normal Cross-arm maneuver: positive Impingement sign: positive Sulcus sign: negative Lift-off test: negative Apprehension:negative [place]'s test: negative Load and shift: negative Speed's test: negative Drop-arm test: negative Instability Testing: Shoulder instability testing: not examined negative scapular winging negative scapular dyskinesis Strength: Testing limited secondary to wheelchair ABD: Right - 4/5 Left - 4/5 ER: Right - 5/5 Left - 5/5 IR: Right - 5/5 Left - 5/5 Biceps: Right - 5/5 Left - 5/5 "Empty can": Right - 3/5 Left - 3/5 Neurovascular assessment: negative for deficit Neck ROM: Extension 10 Flexion to the chest Spurlings test: Right negative Left negative Lateral bending and rotation pain: right negative left negative TTP: negative Ligamentous laxity testing: negative Bilateral Davon Fulton MD [facility]opa[facility] [address] [facility] [place] [address] Orthopedic Sports Medicine Surgery 07/04/2024 11:08 AM This chart was completed in part utilizing [employer] Speech Voice Recognition Software. Grammatical errors, random [...] documented in this encounter Nursing Notes * Brooke Reeves LPN - 07/04/2024 9:59 AM EDT Right shoulder pain, wore monitor for [facility] for 3 weeks pain when reaching rquested xrays from [facility] 07/01/24. Pt is RHD. documented in this encounter Plan of Treatment Upcoming Encounters Date Type Department Care Team (Late st Contact Info) Description 08/22/2024 2:15 PM EDT Office Visit Hematology/Oncology [facility] [place] [address] [place] [phone] Robert Marion MD [address] [place] [address] 08/29/2024 11:00 AM EDT Office Visit Cardiology, [facility] [address] [facility] [place] [address] Shilpi Bailey PA-C [address] [place] [address] 10/07/2024 11:50 AM EST Office Visit [facility] [address] [facility], [place] [phone] Kat Hawthorne DO [address] [facility] [place] [address] Pending Results Name Type Priority Associated Diagnoses Date /Time XR SHOULDER, 2 OR MORE VIEWS Medical Imaging Routine 07/04/2024 10:34 AM EDT XR SHOULDER, 2 OR MORE VIEWS Medical Imaging Routine 07/04/2024 11:10 AM EDT Scheduled Procedures Name Priority Associated Diagnoses [...] Additional history exists CKD PHOS USE SMARTSET 84988 03/21/202503/09, 03/16/2023, 03/15/2023, Additional history exists Depression Screening 03/21/2025 03/21/2024 Albumin/Creatinine Ratio 03/22/2025 024, 09/04/2021, 01/27/2019, Additional history exists Diabetic Foot Exam 04/27/2025 04/27/2024 O2 ASSESSMENT COMPLETED IN PAST YEAR FOR COPD 06/13/2025 06/13/2024 CKD HGB USE SMARTSET 54984 07/04/202507/04, 07/04/2024, 06/20/2024, Additional history exists Lipid [...] this encounter Medical Devices Implanted Type Area Shop Mechanic Device Identifier Shelf Expiration Date Model / Serial / Lot Cement Bone Simplex Hv & G - [id number] Implanted:Qty: 2 on 01/05/2023 by Harley Nguyen, DO at OR [facility] Left: Knee [employer] : ORTH[employer] 06/08/2024 6195-1-010 / / [id number] Femoral Size 5 - [id number] Implanted:Qty: 1 on 01/05/2023 by Harley Nguyen DO at OR [facility] Left: Knee [employer] : ORTH[employer] 08/09/2026 5510-F-501 / / [id number] Knee Tria Syetric X3 10x36 - [id number] Implanted:Qty: 1 on 01/05/2023 by Harley Nguyen DO at OR [facility] Left: Knee [employer] : ORTH[employer] 09/24/2027 5550-G-360 -E / / [id number] Baseplate Tib 5 Knee - [id number] Implanted:Qty: 1 on 01/05/2023 by Harley Nguyen DO at OR [facility] Left: Knee [employer] : OR[employer] 12/14/2027 5521-B-500 / / [id number] Knee X3 Ins Pos Cs Sz5 9 - [id number] Implanted:Qty: 1 on 01/05/2023 by Harley Nguyen DO at OR [facility] Left: Knee [employer] : OR[employer] 11/19/2027 5531-G-509 -E / / [id number] Cement Bone Full Mix Surg Simp - [id number] Implanted:Qty: 1 on 03/03/2023 by Cholo Shah MD at OR [facility] Right: Knee [employer] : ORTH[employer] 05/08/2025 6191-1-010 / / [id number] Knee Tib Comp Poly Krh 8 Lg - [id number] Implanted:Qty: 1 on 03/03/2023 by Cholo Shah MD at OR [facility] Right: Knee [employer] : ORTH[employer] 07/19/2023 6485-2-308 / / [id number] Knee Hrhk Mod Rot Hng Bushing - [id number] Implanted:Qty: 1 on 03/03/2023 by Cholo Shah MD at OR [facility] Right: Knee [employer] : ORTHOPA[employer] 01/09/2027 6481-2-110 / / [id number] Knee Hrhk Mod Rot Hng Bushing - [id number] Implanted:Qty: 1 on 03/03/2023 by Cholo Shah MD at OR [facility] Right: Knee [employer] : ORTHOPA[employer] 11/21/2026 6481-2-110 / / [id number] Knee Stem Crv Mod Mrs 14h460 - [id number] Implanted:Qty: 1 on 03/03/2023 by Cholo Shah MD at OR [facility] Right: Knee [employer] : ORTHOPA[employer] 10/02/2026 6485-3-715 / / [id number] Tib Mrh Cross Bear Long Xs/Xl - [id number] Implanted:Qty: 1 on 03/03/2023 by Cholo Shah MD at OR [facility] Right: Knee [employer] : ORTH[employer] 12/05/2025 6481-2-103 / / [id number] Knee Tib Bumper Rot Hng Nue - [id number] Implanted:Qty: 1 on 03/03/2023 by Cholo Shah MD at OR [facility] Right: Knee [employer] : ORTH[employer] 07/15/2027 6481-2-130 / / [id number] Distal Femoral Component Implanted:Qty: 1 on 03/03/2023 by Cholo Shah MD at OR [facility] Right: Knee [employer] : ORTH[employer] 08/23/2023 6495-2-040 / / [id number] Knee Axle Hrhk Rot Mod Hng - [id number] Implanted:Qty: 1 on 03/03/2023 by Cholo Shah MD at OR [facility] Right: Knee [employer] : ORTHOPA[employer] 06/30/2027 6481-2-120 / / [id number] Restrictors Med Cmnt I110-6866 - [id number] Implanted:Qty: 1 on 03/03/2023 by Cholo Shah MD at OR [facility] Right: Knee [employer] : ORTHOPA[employer] 11/18/2027 [id number] / / Cement Bone Full Mix Surg Simp - [id number] Implanted:Qty: 1 on 03/03/2023 by Cholo Shah MD at OR [facility] Right: Knee [employer] : ORTHOPA[employer] 07/09/2025 6191-1-010 / / [id number] Cement Bone Full Mix Surg Simp - [id number] Implanted:Qty: 1 on 03/03/2023 by Cholo Shah MD at OR [facility] Right: Knee [employer] : ORTHOPA[employer] 06/08/2025 6191-1-010 / / [id number] Cement Bone Full Mix Surg Simp - [id number] Implanted:Qty: 1 on 03/03/2023 by Cholo Shah MD at OR [facility] Right: Knee [employer] : ORTHOPA[employer] 05/08/2025 6191-1-010 / / [id number] Knee Fem Gmrs Dis Std R - [id number] Implanted:Qty: 1 on 03/10/2023 by Cholo Shah MD at OR [facility] Right: Knee [employer] : ORTH[employer] 10/21/2027 6495-2-040 / / [id number] Knee Hrhk Mod Rot Hng Bushing - [id number] Implanted:Qty: 1 on 03/10/2023 by Cholo Shah MD at OR [facility] Right: Knee [employer] : ORTHOPA[employer] 01/29/2027 6481-2-110 / / [id number] Knee Axle Hrhk Rot Mod Hng - [id number] Implanted:Qty: 1 on 03/10/2023 by Cholo Shah MD at OR [facility] Right: Knee [employer] : ORTHOPA[employer] 09/15/2027 6481-2-120 / / [id number] Tib Mrh Cross Bear Long Xs/Xl - [id number] Implanted:Qty: 1 on 03/10/2023 by Cholo Shah MD at OR [facility] Right: Knee [employer] : ORTH[employer] 09/30/2027 6481-2-103 / / [id number] Knee Hrhk Mod Rot Hng Bushing - [id number] Implanted:Qty: 1 on 03/10/2023 by Cholo Shah MD at OR [facility] Right: Knee [employer] : ORTHOPAEDICS 04/24/2027 6481-2-110 / / [id number] Knee Tib Bumper Rot Hng Nue - [id number] Implanted:Qty: 1 on 03/10/2023 by Cholo Shah MD at OR [facility] Right: Knee [employer] : ORTHOPAEDICS 10/15/2027 6481-2-130 / / [id number] documented as of this encounter Visit Diagnoses Diagnosis Musculoskeletal pain of right upper extremity- Primary Nontraumatic complete tear of right rotator cuff documented in this encounter Advance Directives Documents on File Type Date Recorded 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 Care Teams Bpo Specialist Relationship Specialty Start Date End Date Kat Hawthorne DO [address] [place] [address] PCP - General Family Medicine 08/20/22 documented as of this encounter
--- OUTSIDE RECORDS SUMMARY | 2024-07-24 20:36 | External Medical Summary | Summary of Care ---
Author Name Unknown Organization [facility] Address [address] [place] [address] Phone [phone] Care Team Providers Care Ebd Special Education Teacher Name Role Phone Kat Hawthorne Primary Care Provider [phone] Encounter Details Date Type Department Care Team [...] Active oxygen IN GASIndications:ILD (interstitial lung disease) ([facility]),Chronic respiratory failure with hypoxia (HCC) Use 2 LPM with exertion and 3 LPM with sleep. Needs small portable tanks, standing concentrator DME: Careplus 1 Each 07/02/2022 Active Proventil HFA 108 (90 Base) MCG/ACT Inhalation Aerosol SolutionIndications: ILD (interstitial lung disease) ([facility]) Inhale by mouth 2 Puffs every 4 [...] by mouth in the morning. Active Nystatin 738722 UNIT/GM External Powder (Nystop) Apply topically to [...] fall No pain, no diarrhea currently Old [place] (myocardial infarction) 04/14/2023 Hyperlipidemia 04/14/2023 History of [...] & Plan: S/P wound vac placement at [facility] On doxycycline 100 mg BID x [...] History - s/p surgery & treatment per [employer] note on 11/18/23 Ca 125: 68.8 U/mL [...] 08/22/2024 2:15 PM EDT Office Visit Hematology/Oncology [facility] [address] [facility] [place] [phone] Robert Marion MD [address] [facility] [place] [address] 08/29/2024 11:00 AM EDT Office Visit Cardiology, [facility] [address] [address] Shilpi Bailey PA-C [address] [place] [address] 10/07/2024 11:50 AM EST [facility] [address] [facility] [phone] Kat Hawthorne DO [address] [facility] [place] [address] Scheduled Procedures Name Priority Associated Diagnoses Date/Ti [...] Additional history exists CKD PHOS USE SMARTSET 07440 03/21/202503/09, 03/16/2023, 03/15/2023, Additional history exists Depression Screening 03/21/2025 03/21/2024 Albumin/Creatinine Ratio 03/22/2025 024, 09/04/2021, 01/27/2019, Additional history exists Diabetic Foot Exam 04/27/2025 04/27/2024 O2 ASSESSMENT COMPLETED IN PAST YEAR FOR COPD 06/13/2025 06/13/2024 CKD HGB USE SMARTSET 35755 07/04/202507/04, 07/04/2024, 06/20/2024, Additional history exists Lipid [...] this encounter Medical Devices Implanted Type Area Offset Press Operator Helper Device Identifier Shelf Expiration Date Model / Serial / Lot Cement Bone Simplex Hv & G - [id number] Implanted:Qty: 2 on 01/05/2023 by Harley Nguyen, DO at OR [facility] Left: Knee ROSALIA : ORTHOPAEDICS 06/08/2024 6195-1-010 / / [id number] Component Femoral Size 5 - [id number] Implanted:Qty: 1 on 01/05/2023 by Harley Nguyen, DO at OR [facility] Left: Knee ROSALIA : ORTHOPAEDICS 08/09/2026 5510-F-501 / / [id number] Knee Tria Syetric X3 10x36 - [id number] Implanted:Qty: 1 on 01/05/2023 by Harley Nguyen DO at OR [facility] Left: Knee ROSALIA : ORTHOPAEDICS 09/24/2027 5550-G-360 -E / / [id number] Baseplate Tib 5 Knee - [id number] Implanted:Qty: 1 on 01/05/2023 by Harley Nguyen DO at OR [facility] Left: Knee ROSALIA : ORTHOPAEDICS 12/14/2027 5521-B-500 / / [id number] Knee X3 Ins Pos Cs Sz5 9 - [id number] Implanted:Qty: 1 on 01/05/2023 by Harley Nguyen DO at OR [facility] Left: Knee ROSALIA : ORTHOPAEDICS 11/19/2027 5531-G-509 -E / / [id number] Cement Bone Full Mix Surg Simp - [id number] Implanted:Qty: 1 on 03/03/2023 by Cholo Shah [place] [facility] [place]: Knee ROSALIA : ORTHOPAEDICS 05/08/2025 6191-1-010 / / [id number] Knee Tib Comp Poly Krh 8 Lg - [id number] Implanted:Qty: 1 on 03/03/2023 by Cholo Shah MD [place] [facility] [place]: Knee ROSALIA : ORTHOPAEDICS 07/19/2023 6485-2-308 / / [id number] Knee Hrhk Mod Rot Hng Bushing - [id number] Implanted:Qty: 1 on 03/03/2023 by Cholo Shah MD [place] [facility] [place]: Knee ROSALIA : ORTHOPAEDICS 01/09/2027 6481-2-110 / / [id number] Knee Hrhk Mod Rot Hng Bushing - [id number] Implanted:Qty: 1 on 03/03/2023 by Cholo Shah MD [place] [facility] [place]: Knee ROSALIA : ORTHOPAEDICS 11/21/2026 6481-2-110 / / [id number] Knee Stem Crv Mod Mrs 10v687 - [id number] Implanted:Qty: 1 on 03/03/2023 by Cholo Shah MD [place] [facility] [place]: Knee ROSALIA : ORTHOPAEDICS 10/02/2026 6485-3-715 / / [id number] Tib Mrh Cross Bear Long Xs/Xl - [id number] Implanted:Qty: 1 on 03/03/2023 by Cholo Shah MD [place] [facility] [place]: Knee ROSALIA : ORTHOPAEDICS 12/05/2025 6481-2-103 / / [id number] Knee Tib Bumper Rot Hng Nue - [id number] Implanted:Qty: 1 on 03/03/2023 by Cholo Shah MD [place] [facility] [place]: Knee ROSALIA : ORTHOPAEDICS 07/15/2027 6481-2-130 / / [id number] Distal Femoral Component Implanted:Qty: 1 on 03/03/2023 by Cholo Shah MD [place] [facility] [place]: Knee ROSALIA : ORTHOPAEDICS 08/23/2023 6495-2-040 / / [id number] Knee Axle Hrhk Rot Mod Hng - [id number] Implanted:Qty: 1 on 03/03/2023 by Cholo Shah MD [place] [facility] [place]: Knee ROSALIA : ORTHOPAEDICS 06/30/2027 6481-2-120 / / [id number] Restrictors Med Cmnt D140-1447 - [id number] Implanted:Qty: 1 on 03/03/2023 by Cholo Shah MD [place] [facility] [place]: Knee ROSALIA : ORTHOPAEDICS 11/18/2027 E083-1598 / / Cement Bone Full Mix Surg Simp - [id number] Implanted:Qty: 1 on 03/03/2023 by Cholo Shah MD [place] [facility] [place]: Knee ROSALIA : ORTHOPAEDICS 07/09/2025 6191-1-010 / / [id number] Cement Bone Full Mix Surg Simp - [id number] Implanted:Qty: 1 on 03/03/2023 by Cholo Shah MD [place] [facility] [place]: Knee ROSALIA : ORTHOPAEDICS 06/08/2025 6191-1-010 / / [id number] Cement Bone Full Mix Surg Simp - [id number] Implanted:Qty: 1 on 03/03/2023 by Cholo Shah MD [place] [facility] [place]: Knee ROSALIA : ORTHOPAEDICS 05/08/2025 6191-1-010 / / [id number] Knee Fem Gmrs Dis Std R - [id number] Implanted:Qty: 1 on 03/10/2023 by Cholo Shah MD [place] [facility] [place]: Knee ROSALIA : ORTHOPAEDICS 10/21/2027 6495-2-040 / / [id number] Knee Hrhk Mod Rot Hng Bushing - [id number] Implanted:Qty: 1 on 03/10/2023 by Cholo Shah MD [place] [facility] [place]: Knee ROSALIA : ORTHOPAEDICS 01/29/2027 6481-2-110 / / [id number] Knee Axle Hrhk Rot Mod Hng - [id number] Implanted:Qty: 1 on 03/10/2023 by Cholo Shah MD [place] [facility] [place]: Knee ROSALIA : ORTHOPAEDICS 09/15/2027 6481-2-120 / / [id number] Tib Mrh Cross Bear Long Xs/Xl - [id number] Implanted:Qty: 1 on 03/10/2023 by Cholo Shah MD [place] [facility] [place]: Knee ROSALIA : ORTHOPAEDICS 09/30/2027 6481-2-103 / / [id number] Knee Hrhk Mod Rot Hng Bushing - [id number] Implanted:Qty: 1 on 03/10/2023 by Cholo Shah MD [place] [facility] [place]: Knee ROSALIA : ORTHOPAEDICS 04/24/2027 6481-2-110 / / [id number] Knee Tib Bumper Rot Hng Nue - [id number] Implanted:Qty: 1 on 03/10/2023 by Cholo Shah MD [place] [facility] Right: Knee ROSALIA : ORTHOPAEDICS 10/15/2027 6481-2-130 / / [id number] documented as of this encounter Advance Directives Documents on File Type Date Recorded Patient Retail Support Specialist Expl 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 Care Teams Ebd Special Education Teacher Relationship Specialty Start Date End Date Kat Hawthorne DO [address] [facility] [place] [address] PCP - General Family Medicine 08/20/22 documented as of this encounter
--- OUTSIDE RECORDS SUMMARY | 2024-07-24 20:36 | External Medical Summary | Summary of Care ---
Author Name Unknown Organization [facility] Address [address] [place] [address] Phone [phone] Care Team Providers Care Belt Operator Name Role Phone Kat Hawthorne Primary Care Provider [phone] Encounter Details Date Type Department Care Team [...] Active oxygen IN GASIndications:ILD (interstitial lung disease) ([facility]),Chronic respiratory failure with hypoxia (HCC) Use 2 LPM with exertion and 3 LPM with sleep. Needs small portable tanks, standing concentrator DME: Careplus 1 Each 07/02/2022 Active Proventil HFA 108 (90 Base) MCG/ACT Inhalation Aerosol SolutionIndications: ILD (interstitial lung disease) ([facility]) Inhale by mouth 2 Puffs [...] by mouth in the morning. Active Nystatin 810253 UNIT/GM External Powder (Nystop) Apply topically to [...] fall No pain, no diarrhea currently Old [place] (myocardial infarction) 04/14/2023 Hyperlipidemia 04/14/2023 History of [...] History - s/p surgery & treatment per [employer] note on 11/18/23 Ca 125: 68.8 U/mL [...] 08/22/2024 2:15 PM EDT Office Visit Hematology/Oncology [facility] [address] [facility] [address] [place] [phone] Robert Marion MD [address] [facility] [place] [address] 08/29/2024 11:00 AM EDT Office Visit Cardiology, [facility] [address] [address] Shlipi Bailey PA-C [address] [place] [address] 10/07/2024 11:50 AM EST [facility] [address] [facility] [phone] Kat Hawthorne DO [address] [facility] [place] [address] Scheduled Procedures Name Priority Associated Diagnoses Date/Ti [...] Additional history exists CKD PHOS USE SMARTSET 79770 03/21/202503/09, 03/16/2023, 03/15/2023, Additional history exists Depression Screening 03/21/2025 03/21/2024 Albumin/Creatinine Ratio 03/22/2025 024, 09/04/2021, 01/27/2019, Additional history exists Diabetic Foot Exam 04/27/2025 04/27/2024 O2 ASSESSMENT COMPLETED IN PAST YEAR FOR COPD 06/13/2025 06/13/2024 CKD HGB USE SMARTSET 27457 07/04/202507/04, 07/04/2024, 06/20/2024, Additional history exists Lipid [...] this encounter Medical Devices Implanted Type Area Returns Clerk Device Identifier Shelf Expiration Date Model / Serial / Lot Cement Bone Simplex Hv & G - [id number] Implanted:Qty: 2 on 01/05/2023 by Harley Nguyen, DO at OR [facility] Left: Knee ROSALIA : ORTHOPAEDICS 06/08/2024 6195-1-010 / / [id number] Component Femoral Size 5 - [id number] Implanted:Qty: 1 on 01/05/2023 by Harley Nguyen, DO at OR [facility] Left: Knee ROSALIA : ORTHOPAEDICS 08/09/2026 5510-F-501 / / [id number] Knee Tria Syetric X3 10x36 - [id number] Implanted:Qty: 1 on 01/05/2023 by Harley Nguyen DO at OR [facility] Left: Knee ROSALIA : ORTHOPAEDICS 09/24/2027 5550-G-360 -E / / [id number] Baseplate Tib 5 Knee - [id number] Implanted:Qty: 1 on 01/05/2023 by Harley Nguyen DO at OR [facility] Left: Knee ROSALIA : ORTHOPAEDICS 12/14/2027 5521-B-500 / / [id number] Knee X3 Ins Pos Cs Sz5 9 - [id number] Implanted:Qty: 1 on 01/05/2023 by Harley Nguyen DO at OR [facility] Left: Knee ROSALIA : ORTHOPAEDICS 11/19/2027 5531-G-509 -E / / [id number] Cement Bone Full Mix Surg Simp - [id number] Implanted:Qty: 1 on 03/03/2023 [place] [facility] [place] Knee ROSALIA : ORTHOPAEDICS 05/08/2025 6191-1-010 / / [id number] Knee Tib Comp Poly Krh 8 Lg - [id number] Implanted:Qty: 1 on 03/03/2023 by Cholo Shah [place] [facility] [place]: Knee ROSALIA : ORTHOPAEDICS 07/19/2023 6485-2-308 / / [id number] Knee Hrhk Mod Rot Hng Bushing - [id number] Implanted:Qty: 1 on 03/03/2023 by Cholo Shah [place] [facility] [place]: Knee ROSALIA : ORTHOPAEDICS 01/09/2027 6481-2-110 / / [id number] Knee Hrhk Mod Rot Hng Bushing - [id number] Implanted:Qty: 1 on 03/03/2023 by Cholo Shah [place] [facility] [place]: Knee RSOALIA : ORTHOPAEDICS 11/21/2026 6481-2-110 / / [id number] Knee Stem Crv Mod Mrs 91m164 - [id number] Implanted:Qty: 1 on 03/03/2023 by Cholo Shah MD [place] [facility] [place]: Knee ROSALIA : ORTHOPAEDICS 10/02/2026 6485-3-715 / / [id number] Tib Mrh Cross Bear Long Xs/Xl - [id number] Implanted:Qty: 1 on 03/03/2023 by Cholo Shah MD [place] [facility] [place]: Knee ROSALIA : ORTHOPAEDICS 12/05/2025 6481-2-103 / / [id number] Knee Tib Bumper Rot Hng Nue - [id number] Implanted:Qty: 1 on 03/03/2023 by Cholo Shah MD [place] [facility] [place]: Knee ROSALIA : ORTHOPAEDICS 07/15/2027 6481-2-130 / / [id number] Distal Femoral Component Implanted:Qty: 1 on 03/03/2023 by Cholo Shah MD [place] [facility] [place]: Knee ROSALIA : ORTHOPAEDICS 08/23/2023 6495-2-040 / / [id number] Knee Axle Hrhk Rot Mod Hng - [id number] Implanted:Qty: 1 on 03/03/2023 by Cholo Shah MD [place] [facility] [place]: Knee ROSALIA : ORTHOPAEDICS 06/30/2027 6481-2-120 / / [id number] Restrictors Med Cmnt W960-8921 - [id number] Implanted:Qty: 1 on 03/03/2023 by Cholo Shah MD [place] [facility] [place]: Knee ROSALIA : ORTHOPAEDICS 11/18/2027 D135-2275 / / Cement Bone Full Mix Surg Simp - [id number] Implanted:Qty: 1 on 03/03/2023 by Cholo Shah MD [place] [facility] [place]: Knee ROSALIA : ORTHOPAEDICS 07/09/2025 6191-1-010 / / [id number] Cement Bone Full Mix Surg Simp - [id number] Implanted:Qty: 1 on 03/03/2023 by Cholo Shah MD [place] [facility] [place]: Knee ROSALIA : ORTHOPAEDICS 06/08/2025 6191-1-010 / / [id number] Cement Bone Full Mix Surg Simp - [id number] Implanted:Qty: 1 on 03/03/2023 by Cholo Shah MD [place] [facility] [place]: Knee ROSALIA : ORTHOPAEDICS 05/08/2025 6191-1-010 / / [id number] Knee Fem Gmrs Dis Std R - [id number] Implanted:Qty: 1 on 03/10/2023 by Cholo Shah MD [place] [facility] [place]: Knee ROSALIA : ORTHOPAEDICS 10/21/2027 6495-2-040 / / [id number] Knee Hrhk Mod Rot Hng Bushing - [id number] Implanted:Qty: 1 on 03/10/2023 by Cholo Shah MD [place] [facility] [place]: Knee ROSALIA : ORTHOPAEDICS 01/29/2027 6481-2-110 / / [id number] Knee Axle Hrhk Rot Mod Hng - [id number] Implanted:Qty: 1 on 03/10/2023 by Cholo Shah MD [place] [facility] [place]: Knee ROSALIA : ORTHOPAEDICS 09/15/2027 6481-2-120 / / [id number] Tib Mrh Cross Bear Long Xs/Xl - [id number] Implanted:Qty: 1 on 03/10/2023 by Cholo Shah MD [place] [facility] [place]: Knee ROSALIA : ORTHOPAEDICS 09/30/2027 6481-2-103 / / [id number] Knee Hrhk Mod Rot Hng Bushing - [id number] Implanted:Qty: 1 on 03/10/2023 by Cholo Shah MD [place] [facility] [place]: Knee ROSALIA : ORTHOPAEDICS 04/24/2027 6481-2-110 / / [id number] Knee Tib Bumper Rot Hng Nue - [id number] Implanted:Qty: 1 on 03/10/2023 by Cholo Shah MD [place] [facility] [place]: Knee ROSALIA : ORTHOPAEDICS 10/15/2027 6481-2-130 / / [id number] documented as of this encounter Advance Directives Documents on File Type Date Recorded Patient Pipeline Superintendent Division Expl 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 Care Teams Belt Operator Relationship Specialty Start Date End Date Kat Hawthorne DO [address] [facility] [place] [address] PCP - General Family Medicine 08/20/22 documented as of this encounter
--- OUTSIDE RECORDS SUMMARY | 2024-07-24 20:36 | External Medical Summary | Summary of Care ---
Author Name Unknown Organization [facility] Address [address] [place] [address] Phone [phone] Care Team Providers Care Duralumin Mechanic Name Role Phone Kat Hawthorne [place] ALARCON Primary Care Provider [phone] Encounter Details Date Type Department Care Team (Late st Contact Info) Description 07/04/2024 Telephone Orthopaedics [facility] [address] [place] [address] Davon Fulton MD [address] [employer] [place] [phone] Allergies Active Allergy Reactions Criticality Noted Date [...] by mouth in the morning. Active Nystatin 310904 UNIT/GM External Powder (Nystop) Apply topically to [...] fall No pain, no diarrhea currently Old [place] (myocardial infarction) 04/14/2023 Hyperlipidemia 04/14/2023 History of [...] & Plan: S/P wound vac placement at [facility] On doxycycline 100 mg BID x [...] - s/p surgery & treatment per RN IV THERAPY note on 11/18/23 Ca 125: 68.8 U/mL [...] mRNA, LNP-s, No Pre serve, 2-Dose Series ([employer]) 08/23/2021,01/26/2021,01/05/2021 Pneumococcal Conjugate Vacc, 13 Valent (Prevnar) [...] encounter Miscellaneous Notes * Telephone Encounter - Brooke Reeves LPN - 07/04/2024 11:29 AM EDT Left message referring pt to [facility] - [phone]. Brooke Graf LPN documented in this encounter Plan of Treatment Upcoming Encounters Date Type Department Care Team (Late st Contact Info) Description 08/22/2024 2:15 PM EDT Office Visit Hematology/Oncology [facility] [address] [place] [phone] Robert Marion MD [address] [place] [address] 08/29/2024 11:00 AM EDT Office Visit Cardiology, [facility] [address] [place] [address] Shilpi Bailey PA-C [address] [place] [address] 10/07/2024 11:50 AM EST Office Visit [facility] [address] [place] [phone] Kat Hawthorne DO [address] [place] [address] Scheduled Procedures Name Priority Associated Diagnoses Date/Ti [...] 08/16/2021, Additional history exists HbA1c 09/21/2024 03/21/2024, 07/2023, 05/27/2018, Additional history exists Mammogram 12/09/2024 12/09/2023, 11/11, 04/30/2022, Additional history exists GFR 01/04/2025 07/04/2024, 04/10, 03/21/2024, Additional history exists Diabetic Eye Exam 03/10/2025 03/10/2024, , 01/30/2023, Additional history exists CKD PHOS USE SMARTSET 32677 03/21/202503/09, 03/16/2023, 03/15/2023, Additional history exists Depression Screening 03/21/2025 03/21/2024 Albumin/Creatinine Ratio 03/22/2025 024, 09/04/2021, 01/27/2019, Additional history exists Diabetic Foot Exam 04/27/2025 04/27/2024 O2 ASSESSMENT COMPLETED IN PAST YEAR FOR COPD 06/13/2025 06/13/2024 CKD HGB USE SMARTSET 69874 07/04/202507/04, 07/04/2024, 06/20/2024, Additional history exists Lipid [...] this encounter Medical Devices Implanted Type Area Folder Seamer Device Identifier Shelf Expiration Date Model / Serial / Lot Cement Bone Simplex Hv & G - [id number] Implanted:Qty: 2 on 01/05/2023 by Harley Nguyen, DO at OR [facility] Left: Knee ROSALIA : ORTHOPAEDICS 06/08/2024 6195-1-010 / / [id number] Component Femoral Size 5 - [id number] Implanted:Qty: 1 on 01/05/2023 by Harley Nguyen DO at OR [facility] Left: Knee ROSALIA : ORTHOPAEDICS 08/09/2026 5510-F-501 / / [id number] Knee Tria Syetric X3 10x36 - [id number] Implanted:Qty: 1 on 01/05/2023 by Harley Nguyen DO at OR [facility] Left: Knee ROSALIA : ORTHOPAEDICS 09/24/2027 5550-G-360 -E / / [id number] Baseplate Tib 5 Knee - [id number] Implanted:Qty: 1 on 01/05/2023 by Harley Nguyen DO at OR [facility] Left: Knee ROSALIA : ORTHOPAEDICS 12/14/2027 5521-B-500 / / [id number] Knee X3 Ins Pos Cs Sz5 9 - [id number] Implanted:Qty: 1 on 01/05/2023 by Harley Nguyen DO at OR [facility] Left: Knee ROSALIA : ORTHOPAEDICS 11/19/2027 5531-G-509 -E / / [id number] Cement Bone Full Mix Surg Simp - [id number] Implanted:Qty: 1 on 03/03/2023 by [place] Shah [place] [facility] [place]: Knee ROSALIA : ORTHOPAEDICS 05/08/2025 6191-1-010 / / [id number] Knee Tib Comp Poly Krh 8 Lg - [id number] Implanted:Qty: 1 on 03/03/2023 by Cholo Shah [place] [facility] [place]: Knee ROSALIA : ORTHOPAEDICS 07/19/2023 6485-2-308 / / [id number] Knee Hrhk Mod Rot Hng Bushing - [id number] Implanted:Qty: 1 on 03/03/2023 by Cholo Shah MD [place] [facility] [place]: Knee ROSALIA : ORTHOPAEDICS 01/09/2027 6481-2-110 / / [id number] Knee Hrhk Mod Rot Hng Bushing - [id number] Implanted:Qty: 1 on 03/03/2023 by Cholo Shah MD [place] [facility] [place]: Knee ROSALIA : ORTHOPAEDICS 11/21/2026 6481-2-110 / / [id number] Knee Stem Crv Mod Mrs 10n880 - [id number] Implanted:Qty: 1 on 03/03/2023 by Cholo Shah MD [place] [facility] [place]: Knee ROSALIA : ORTHOPAEDICS 10/02/2026 6485-3-715 / / [id number] Tib Mrh Cross Bear Long Xs/Xl - [id number] Implanted:Qty: 1 on 03/03/2023 by Cholo Shah MD [place] [facility] [place]: Knee ROSALIA : ORTHOPAEDICS 12/05/2025 6481-2-103 / / [id number] Knee Tib Bumper Rot Hng Nue - [id number] Implanted:Qty: 1 on 03/03/2023 by Cholo Shah MD [place] [facility] [place]: Knee ROSALIA : ORTHOPAEDICS 07/15/2027 6481-2-130 / / [id number] Distal Femoral Component Implanted:Qty: 1 on 03/03/2023 by Cholo Shah MD [place] [facility] [place]: Knee ROSALIA : ORTHOPAEDICS 08/23/2023 6495-2-040 / / [id number] Knee Axle Hrhk Rot Mod Hng - [id number] Implanted:Qty: 1 on 03/03/2023 by Cholo Shah MD [place] [facility] [place]: Knee ROSALIA : ORTHOPAEDICS 06/30/2027 6481-2-120 / / [id number] Restrictors Med Cmnt C443-6760 - [id number] Implanted:Qty: 1 on 03/03/2023 by Cholo Shah MD [place] [facility] [place]: Knee ROSALIA : ORTHOPAEDICS 11/18/2027 C458-6107 / / Cement Bone Full Mix Surg Simp - [id number] Implanted:Qty: 1 on 03/03/2023 by Cholo Shah MD [place] [facility] [place]: Knee ROSALIA : ORTHOPAEDICS 07/09/2025 6191-1-010 / / [id number] Cement Bone Full Mix Surg Simp - [id number] Implanted:Qty: 1 on 03/03/2023 by Cholo Shah MD [place] [facility] [place]: Knee ROSALIA : ORTHOPAEDICS 06/08/2025 6191-1-010 / / [id number] Cement Bone Full Mix Surg Simp - [id number] Implanted:Qty: 1 on 03/03/2023 by Cholo Shah [place] [facility] [place] Knee [facility] : ORTHOPAEDICS 05/08/2025 6191-1-010 / / [id number] Knee Fem Gmrs Dis Std R - [id number] Implanted:Qty: 1 on 03/10/2023 by Cholo Shah [place] [facility] [place] Knee [facility] : ORTHOPA[employer]ICS 10/21/2027 6495-2-040 / / [id number] Knee Hrhk Mod Rot Hng Bushing - [id number] Implanted:Qty: 1 on 03/10/2023 by Cholo Shah [place] [facility] [place] Knee [facility] : ORTHOPA[employer] 01/29/2027 6481-2-110 / / [id number] Knee Axle Hrhk Rot Mod Hng - [id number] Implanted:Qty: 1 on 03/10/2023 by Cholo Shah [place] [facility] [place] Knee [facility] : [employer]THOPA[employer] 09/15/2027 6481-2-120 / / [id number] Tib Mrh Cross Bear Long Xs/Xl - [id number] Implanted:Qty: 1 on 03/10/2023 by Cholo Shah [place] [facility] [place] Knee [facility] : [employer]THOPA[employer] 09/30/2027 6481-2-103 / / [id number] Knee Hrhk Mod Rot Hng Bushing - [id number] Implanted:Qty: 1 on 03/10/2023 by Cholo Shah [place] [facility] [place] Knee [facility] : ORTHOPAEDICS 04/24/2027 6481-2-110 / / [id number] Knee Tib Bumper Rot Hng Nue - [id number] Implanted:Qty: 1 on 03/10/2023 by Cholo Shah [place] [facility] [place] Knee [facility] : ORTHOPA[employer] 10/15/2027 6481-2-130 / / [id number] documented as of this encounter Advance Directives Documents on File Type Date Recorded Patient Government Service Executive Expl 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 Care Teams Duralumin Mechanic Relationship Specialty Start Date End Date Kat Hawthorne DO [address] [place] [id number] PCP - General Family Medicine 08/20/22 documented as of this encounter
--- OUTSIDE RECORDS SUMMARY | 2024-07-24 20:36 | External Medical Summary | Summary of Care ---
Author Name Unknown Organization [facility] Address [address] [place] [address] Phone [phone] Care Team Providers Care Rail Car Mechanic Name Role Phone Kat Hawthorne DO Primary Care Provider [phone] Reason for Referral * Evaluate & Treat - Unlimited Visits (Within 10 days (routine)) - Authorized Specialty Diagnoses / Procedures Referred By Beau cedeno Referred To Contact HOME CARE / Home Care Diagnoses Musculoskeletal pain of right upper extremity Nontraumatic complete tear of right rotator cuff Davon Fulton MD [address] [place] [address] [facility] [address] [place] [address] Referral ID Status Reason Start Date Expiration Date Visits Requested Visits Authorized [id number] Authorized Specialty Services Required 07/04/2024 999 999 Question Answer Referral Priority Within 10 days (routine) Where should this appointment be scheduled? Krysten Comments Documentation of Vgrh-cj-Qycc Encounter Addendum Patient Name: Orin Bah I certify that this patient is under my care and that I, or a nurse practitioner or physician's social human services assistants working with me, had a ukuv-mq-pvvb encounter that meets the physician zdrz-kt-arom encounter requirements with this patient on: 07/04/2024 The encounter with the patient was in whole, or in part, for the following medical condition, which is the primary reason for home health care (List medical condition): ADL dysfunction I certify that, based on my findings, the following services are medically necessary home health services: Physical Therapy To provide the following care/treatments: (All hospitalists not following the patient after discharge should complete this section): Primary Care Physician to follow home care plan of care after discharge: My clinical findings support the need for the above services because: right shoulder decreased ROM Further, I certify that my clinical findings support that this patient is homebound (i.e. 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 Physician Signature: Date of Signature: Physician Printed Name: Chloe Rosas LPN Reason for Visit * Reason Comments Joint Pain Right shoulder Encounter Details Date Type Department Care Team (Late st Contact Info) Description 07/04/2024 10:00 AM EDT Office Visit Orthopaedics [facility] [address] [place] [address] Davon Fulton MD [address] [place] [phone] Nontraumatic complete tear of right rotator cuff*; Musculoskeletal pain of right upper extremity Allergies Active Allergy Reactions Criticality Noted Date [...] by mouth in the morning. Active Nystatin 669921 UNIT/GM External Powder (Nystop) Apply topically to [...] & Plan: S/P wound vac placement at [facility] On doxycycline 100 mg BID x 14 [...] History - s/p surgery & treatment per ACOUSTICAL TILE PATTERNMAKER note on 11/18/23 Ca 125: 68.8 U/mL [...] mRNA, LNP-s, No Pre serve, 2-Dose Series (mCASH) 08/23/2021,01/26/2021,01/05/2021 Pneumococcal Conjugate Vacc, 13 Valent (Prevnar) [...] Physical Therapy? no. Injections? no. Nursing Notes: Chloe Rosas, RACHEAL 07/04/24 1006 Signed Right shoulder pain, wore monitor for [facility] for 3 weeks pain when reaching rquested xrays from [facility] 07/01/24. Pt is RHD. Past Surgical History: Procedure Laterality Date ARTHROPLASTY KNEE TOTAL Left 01/05/2023 ROBOTIC ARTHROPLASTY KNEE TOTAL performed by Harley Nguyen DO at OR [facility] ARTHROPLASTY KNEE TOTAL Right 03/03/2023 ARTHROPLASTY KNEE TOTAL performed by Cholo Shah MD at OR [facility] BONE DEBRIDEMENT, FIRST 20 CM2 Right 03/10/2023 DEBRIDEMENT SKIN SUBCUTANEOUS TISSUE MUSCLE AND BONE performed by Cholo Shah MD at OR [facility] COLONOSCOPY, DIAGNOSTIC (RECTUM) 09/25/2017 normal, repeat 10 yrs/[facility] CYSTOSCOPY Left 01/18/2016 stent removal EGD, FLEXIBLE, DIAGNOSTIC 09/25/2017 normal bx/[facility] EGD, FLEXIBLE, DIAGNOSTIC N/A 09/25/2022 small hiatal hernia/EGD/VT EGD, W/ENDOSCOPIC US N/A 01/20/2023 [facility], EGD/ EUS, reversed gastric bypass found , EUS - many stones found, fatty liver / no specimenscollected / ENDOSCOPY, ERCP, W/STONE REMOVAL N/A 01/20/2023 [facility], ERCP , Choledocholithiasis found & complete removal accomplished by biliary spihincterotomy, stent placed / no bx's / repeat ERCP 8 weeks follow up / EXPLORATION OF ABDOMEN N/A 09/04/2020 EXPLORATORY LAPAROTOMY performed by Harjeet Li MD at OR [facility] GASTRIC REVISION FOR OBESITY 1980 Gastric Bypass reversed same yr IMPLANTABLE ACCESS SYST PERC 10/22/2020 INFORMATION Left 04/2021 L pacemaker insertion @ [facility]. INJECT DX/THER SUBSTANCE INTERLAMINAR LUMBAR/SACRAL W IMAGE GUIDE 09/19/2021 INJECTION SPINE LUMBAR OR SACRAL performed by Camron Pathak DO at OR [facility] KNEE ARTHROSCOPY, DIAGNOSTIC 1999 Knee Arthroscopy MISCELLANEOUS ORDER ([facility] ONLY) 1979 gastric stapling REMOVAL OF KIDNEY STONE x2 REMOVAL OF TONSILS, AGE 12+ at age 10 REPAIR INITIAL INCISIONAL OR VENTRAL HERNIA; REDUCIBLE N/A 04/27/2017 REPAIR OF VENTRAL HERNIA [facility] DR. WORRELL 04/27/17 REVISE KNEE JOINT REPLACEMENT Right 03/10/2023 TOTAL KNEE REVISION FEMUR AND TIBIA performed by Cholo Shah MD at OR [facility] TOTAL ABD HYSTERECTOMY W/WO REMOVAL OF TUBE(S) N/A 09/04/2020 TOTAL ABDOMINAL HYSTERECTOMY WITH OR WITHOUT TUBES AND OVARIES performed by Harjeet Li MD at OR [facility] Review of patient's allergies indicates: Allergen Reactions [...] Capsule by mouth in the morning. Nystatin [id number] UNIT/GM External Powder (Nystop) Apply topically to [...] Stability Do you currently live in a care home or have no steady place to sleep [...] on chronic diastolic CHF (congestive heart failure) ([facility]) 03/21/2024 Adding I50.33-Acute on chronic diastolic CHF (congestive heart failure) ([facility]) Dx to History Anemia Anemia in other chronic diseases classified elsewhere Anxiety Cancer ([facility]) ovarian Class 2 obesity in adult 04/23/2010 Per Obesity Protocol, #19 ICD-10 update of inactive term MORE SPECIFIED CODE LISTED ON PL Clostridium difficile infection Depressive disorder, not elsewhere classified Dysmenorrhea Esophageal reflux Hereditary hemolytic anemia, unspecified ([facility]) HTN, goal below 140/90 Hypertension with congestive heart failure and renal failure ([facility]) 04/14/2023 Hypertensive kidney disease with stage 3a chronic kidney disease ([facility]) 09/17/2020 Per CKD protocol Hyponatremia 03/09/2023 Kidney disease, chronic, stage III (GFR 30-59 ml/min) ([facility]) Kidney stone Lumbar stenosis Nephrolithiasis 12/29/2016 Nocturnal hypoxia 09/01/2019 OA (osteoarthritis) Obesity, morbid (more than 100 lbs over ideal weight or BMI > 40) ([facility]) 04/23/2010 Per Obesity Protocol, #19 ICD-10 update of inactive term Open wound of foot, right, subsequent encounter BERRY (obstructive sleep apnea) Ovarian cancer on left (HCC) History - s/p surgery & treatment per ACOUSTICAL TILE PATTERNMAKER note on 11/18/23 Ca 125: 68.8 U/mL [...] Sulcus sign: negative Lift-off test: negative Apprehension:negative Redwood's test: negative Load and shift: negative Speed's [...] testing: negative Bilateral Davon Fulton MD Orthopaedics [address] [address] Orthopedic Sports Medicine Surgery 07/04/2024 11:08 AM This chart was completed in part utilizing [employer] Speech Voice Recognition Software. Grammatical errors, random [...] documented in this encounter Nursing Notes * Chloe Rosas LPN - 07/04/2024 9:59 AM EDT Right shoulder pain, wore monitor for [facility] for 3 weeks pain when reaching rquested xrays from [facility] 07/01/24. Pt is RHD. documented in this encounter Miscellaneous Notes * Addendum Note - Chloe Rosas LPN - 07/04/2024 2:06 PM EDTAddended by: CHLOE ROSAS on: 07/04/2024 02:06 PM Modules accepted: Orders documented in this encounter Plan of Treatment Upcoming Encounters Date Type Department Care Team (Late st Contact Info) Description 08/22/2024 2:15 PM EDT Office Visit Hematology/Oncology [facility] [address] [facility] [place] [phone] Robert Marion MD [address] [facility] [place] [address] 08/29/2024 11:00 AM EDT Office Visit Cardiology, [facility] [address] [facility] [place] [address] Shilpi Bailey PA-C [address] [facility] [place] [address] 10/07/2024 11:50 AM EST Office Visit [place] [address] [place] [address] Kat Hawthorne, [address] [place] [address] Pending Results Name Type Priority Associated Diagnoses [...] Type Priority Associated Diagnoses Orde r Schedule HOME HEALTH REFERRAL OP Referral Within 10 days (routine) Musculoskeletal pain of right upper extremity Nontraumatic complete tear of right rotator cuff Ordered: 07/04/2024 Health Maintenance Due Date Last Done Comments [...] Additional history exists CKD PHOS USE SMARTSET 15845 03/21/202503/09, 03/16/2023, 03/15/2023, Additional history exists Depression Screening 03/21/2025 03/21/2024 Albumin/Creatinine Ratio 03/22/202503/22/2 024, 09/04/2021, 01/27/2019, Additional history exists Diabetic Foot Exam 04/27/2025 04/27/2024 O2 ASSESSMENT COMPLETED IN PAST YEAR FOR COPD 06/13/2025 06/13/2024 CKD HGB USE SMARTSET 52549 07/04/202507/04, 07/04/2024, 06/20/2024, Additional history exists Lipid [...] this encounter Medical Devices Implanted Type Area Older Adult Social Work Specialist Device Identifier Shelf Expiration Date Model / Serial / Lot Cement Bone Simplex Hv & G - [id number] Implanted:Qty: 2 on 01/05/2023 by Harley Nguyen, at OR [facility] Left: Knee ROSALIA : ORTHOPAEDICS 06/08/2024 6195-1-010 / / [id number] Component Femoral Size 5 - [id number] Implanted:Qty: 1 on 01/05/2023 by Harley Nguyen DO at OR [facility] Left: Knee ROSALIA : ORTHOPAEDICS 08/09/2026 5510-F-501 / / [id number] Knee Tria Syetric X3 10x36 - [id number] Implanted:Qty: 1 on 01/05/2023 by Harley Nguyen DO at OR [facility] Left: Knee ROSALIA : ORTHOPAEDICS 09/24/2027 5550-G-360 -E / / [id number] Baseplate Tib 5 Knee - [id number] Implanted:Qty: 1 on 01/05/2023 by Harley Nguyen DO at OR [facility] Left: Knee ROSALIA : ORTHOPAEDICS 12/14/2027 5521-B-500 / / [id number] Knee X3 Ins Pos Cs Sz5 9 - [id number] Implanted:Qty: 1 on 01/05/2023 by Harley Nguyen DO at OR [facility] Left: Knee ROSALIA : ORTHOPAEDICS 11/19/2027 5531-G-509 -E / / [id number] Cement Bone Full Mix Surg Simp - [id number] Implanted:Qty: 1 on 03/03/2023 by Cholo Shah MD at OR [facility] Right: Knee ROSALIA : ORTHOPAEDICS 05/08/2025 6191-1-010 / / [id number] Knee Tib Comp Poly Krh 8 Lg - [id number] Implanted:Qty: 1 on 03/03/2023 by Cholo Shah MD at OR [facility] Right: Knee ROSALIA : ORTHOPAEDICS 07/19/2023 6485-2-308 / / [id number] Knee Hrhk Mod Rot Hng Bushing - [id number] Implanted:Qty: 1 on 03/03/2023 by Cholo Shah MD at OR [facility] Right: Knee ROSALIA : ORTHOPAEDICS 01/09/2027 6481-2-110 / / [id number] Knee Hrhk Mod Rot Hng Bushing - [id number] Implanted:Qty: 1 on 03/03/2023 by Cholo Shah MD at OR [facility] Right: Knee ROSALIA : ORTHOPAEDICS 11/21/2026 6481-2-110 / / [id number] Knee Stem Crv Mod Mrs 42q079 - [id number] Implanted:Qty: 1 on 03/03/2023 by Cholo Shah MD at OR [facility] Right: Knee ROSALIA : ORTHOPAEDICS 10/02/2026 6485-3-715 / / [id number] Tib Mrh Cross Bear Long Xs/Xl - [id number] Implanted:Qty: 1 on 03/03/2023 by Cholo Shah MD at OR [facility] Right: Knee ROSALIA : ORTHOPAEDICS 12/05/2025 6481-2-103 / / [id number] Knee Tib Bumper Rot Hng Nue - [id number] Implanted:Qty: 1 on 03/03/2023 by Cholo Shah MD at OR [facility] Right: Knee ROSALIA : ORTHOPAEDICS 07/15/2027 6481-2-130 / / [id number] Distal Femoral Component Implanted:Qty: 1 on 03/03/2023 by Cholo Shah MD at OR [facility] Right: Knee ROSALIA : ORTHOPAEDICS 08/23/2023 6495-2-040 / / [id number] Knee Axle Hrhk Rot Mod Hng - [id number] Implanted:Qty: 1 on 03/03/2023 by Cholo Shah MD at OR [facility] Right: Knee ROSALIA : ORTHOPAEDICS 06/30/2027 6481-2-120 / / [id number] Restrictors Med Cmnt M652-6389 - [id number] Implanted:Qty: 1 on 03/03/2023 by Cholo Shah MD at OR [facility] Right: Knee ROSALIA : ORTHOPAEDICS 11/18/2027 Q029-6564 / / Cement Bone Full Mix Surg Simp - [id number] Implanted:Qty: 1 on 03/03/2023 by Cholo Shah MD at OR [facility] Right: Knee ROSALIA : ORTHOPAEDICS 07/09/2025 6191-1-010 / / [id number] Cement Bone Full Mix Surg Simp - [id number] Implanted:Qty: 1 on 03/03/2023 by Cholo Shah MD at OR [facility] Right: Knee ROSALIA : ORTHOPAEDICS 06/08/2025 6191-1-010 / / [id number] Cement Bone Full Mix Surg Simp - [id number] Implanted:Qty: 1 on 03/03/2023 by Cholo Shah MD at OR [facility] Right: Knee ROSALIA : ORTHOPAEDICS 05/08/2025 6191-1-010 / / [id number] Knee Fem Gmrs Dis Std R - [id number] Implanted:Qty: 1 on 03/10/2023 by Cholo Shah MD at OR [facility] Right: Knee ROSALIA : ORTHOPAEDICS 10/21/2027 6495-2-040 / / [id number] Knee Hrhk Mod Rot Hng Bushing - [id number] Implanted:Qty: 1 on 03/10/2023 by Cholo Shah MD at OR [facility] Right: Knee ROSALIA : ORTHOPAEDICS 01/29/2027 6481-2-110 / / [id number] Knee Axle Hrhk Rot Mod Hng - [id number] Implanted:Qty: 1 on 03/10/2023 by Cholo Shah MD at OR [facility] Right: Knee ROSALIA : ORTHOPAEDICS 09/15/2027 6481-2-120 / / [id number] Tib Mrh Cross Bear Long Xs/Xl - [id number] Implanted:Qty: 1 on 03/10/2023 by Cholo Shah MD at OR [facility] Right: Knee ROSALIA : ORTHOPAEDICS 09/30/2027 6481-2-103 / / [id number] Knee Hrhk Mod Rot Hng Bushing - [id number] Implanted:Qty: 1 on 03/10/2023 by Cholo Shah MD at OR [facility] Right: Knee ROSALIA : ORTHOPAEDICS 04/24/2027 6481-2-110 / / [id number] Knee Tib Bumper Rot Hng Nue - [id number] Implanted:Qty: 1 on 03/10/2023 by Cholo Shah MD at OR [facility] Right: Knee ROSALIA : ORTHOPAEDICS 10/15/2027 6481-2-130 / / [id number] documented as of this encounter Visit Diagnoses Diagnosis Nontraumatic complete tear of right rotator cuff- Primary Musculoskeletal pain of right upper extremity documented in this encounter Advance Directives Documents on File Type Date Recorded Patient Chief Contract Officer Expl 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 Care Teams Rail Car Mechanic Relationship Specialty Start Date End Date Kat Hawthorne DO [address] [facility] [address] PCP - General Family Medicine 08/20/22 documented as of this encounter
--- OUTSIDE RECORDS SUMMARY | 2024-07-24 20:36 | External Medical Summary | Summary of Care ---
Author Name Unknown Organization [facility] Address [address] [place] [address] Phone [phone] Care Team Providers Care Institutional Research Director Name Role Phone Kat Hawthorne [place] ALARCON Primary Care Provider [phone] Encounter Details Date Type Department Care Team (Late st Contact Info) Description 07/04/[address] [facility] [address] [place] [address] Davon Fulton MD [address] [place] [address] Allergies Active Allergy Reactions [...] by mouth in the morning. Active Nystatin 209696 UNIT/GM External Powder (Nystop) Apply topically to [...] fall No pain, no diarrhea currently Old MA (myocardial infarction) 04/14/2023 Hyperlipidemia 04/14/2023 History of [...] History - s/p surgery & treatment per TUBE SIZER OPERATOR note on 11/18/23 Ca 125: 68.8 [...] mRNA, LNP-s, No Pre serve, 2-Dose Series (Variab.ly) 08/23/2021,01/26/2021,01/05/2021 Pneumococcal Conjugate Vacc, 13 Valent (Prevnar) [...] Encounter - Brooke Reeves LPN - 07/04/2024 2:41 PM EDT Successfully faxed home health referral , insurance details and today's office note to [facility] ( 12 page) to [phone]. Brooke Graf LPN * Telephone Encounter - Brooke Reeves LPN - 07/04/2024 11:29 AM EDT Left message referring pt to [facility] - [phone]. Brooke Graf LPN documented in this encounter Plan of Treatment Upcoming Encounters Date Type Department Care Team (Late st Contact Info) Description 08/22/2024 2:15 PM EDT Office Visit Hematology/Oncology [facility] [address] [facility] [place], [place] [address] Robert Marion MD [address] [facility] [place] [address] 08/29/2024 11:00 AM EDT Office Visit Cardiology, [facility] [address] [place] [address] Shilpi Bailey PA-C [address] [place] [address] 10/07/2024 11:50 AM EST Office Visit [facility] [address] [place] [phone] Kat Hawthorne DO [address] [place] [address] Scheduled Procedures Name Priority Associated Diagnoses Date/Ti [...] Additional history exists CKD PHOS USE SMARTSET 05831 03/21/202503/09, 03/16/2023, 03/15/2023, Additional history exists Depression Screening 03/21/2025 03/21/2024 Albumin/Creatinine Ratio 03/22/2025 024, 09/04/2021, 01/27/2019, Additional history exists Diabetic Foot Exam 04/27/2025 04/27/2024 O2 ASSESSMENT COMPLETED IN PAST YEAR FOR COPD 06/13/2025 06/13/2024 CKD HGB USE SMARTSET 35008 07/04/202507/04, 07/04/2024, 06/20/2024, Additional history exists Lipid [...] this encounter Medical Devices Implanted Type Area Dairy Helper Device Identifier Shelf Expiration Date Model / Serial / Lot Cement Bone Simplex Hv & G - [id number] Implanted:Qty: 2 on 01/05/2023 by Harley Nguyen DO at OR [facility] Left: Knee ROSALIA : ORTHOPAEDICS 06/08/2024 6195-1-010 / / [id number] Femoral Size 5 - [id number] Implanted:Qty: 1 on 01/05/2023 by Harley Nguyen DO at OR [facility] Left: Knee ROSALIA : ORTHOPAEDICS 08/09/2026 5510-F-501 / / [id number] Knee Tria Syetric X3 10x36 - [id number] Implanted:Qty: 1 on 01/05/2023 by Harley Nguyen DO at OR [facility] Left: Knee ROSALIA : ORTHOPAEDICS 09/24/2027 5550-G-360 -E / / [id number] Baseplate Tib 5 Knee - [id number] Implanted:Qty: 1 on 01/05/2023 by Harley Nguyen DO at OR [facility] Left: Knee ROSALIA : ORTHOPAEDICS 12/14/2027 5521-B-500 / / [id number] Knee X3 Ins Pos Cs Sz5 9 - [id number] Implanted:Qty: 1 on 01/05/2023 by Harley Nguyen DO at OR [facility] Left: Knee ROSALIA : ORTHOPAEDICS 11/19/2027 5531-G-509 -E / / [id number] Cement Bone Full Mix Surg Simp - [id number] Implanted:Qty: 1 on 03/03/2023 by Cholo Shah MD at OR [facility] Right: Knee ROSALIA : ORTHOPAEDICS 05/08/2025 6191-1-010 / / [id number] Knee Tib Comp Poly Krh 8 Lg - [id number] Implanted:Qty: 1 on 03/03/2023 by Cholo Shah MD at OR [facility] Right: Knee ROSALIA : ORTHOPAEDICS 07/19/2023 6485-2-308 / / [id number] Knee Hrhk Mod Rot Hng Bushing - [id number] Implanted:Qty: 1 on 03/03/2023 by Cholo Shah MD at OR [facility] Right: Knee ROSALIA : ORTHOPAEDICS 01/09/2027 6481-2-110 / / [id number] Knee Hrhk Mod Rot Hng Bushing - [id number] Implanted:Qty: 1 on 03/03/2023 by Cholo Shah MD at OR [facility] Right: Knee ROSALIA : ORTHOPAEDICS 11/21/2026 6481-2-110 / / [id number] Knee Stem Crv Mod Mrs 71u991 - [id number] Implanted:Qty: 1 on 03/03/2023 by Cholo Shah MD at OR [facility] Right: Knee ROSALIA : ORTHOPAEDICS 10/02/2026 6485-3-715 / / [id number] Tib Mrh Cross Bear Long Xs/Xl - [id number] Implanted:Qty: 1 on 03/03/2023 by Cholo Shah MD at OR [facility] Right: Knee ROSALIA : ORTHOPAEDICS 12/05/2025 6481-2-103 / / [id number] Knee Tib Bumper Rot Hng Nue - [id number] Implanted:Qty: 1 on 03/03/2023 by Cholo Shah MD at OR [facility] Right: Knee ROSALIA : ORTHOPAEDICS 07/15/2027 6481-2-130 / / [id number] Distal Femoral Component Implanted:Qty: 1 on 03/03/2023 by Cholo Shah MD at OR [facility] Right: Knee ROSALIA : ORTHOPAEDICS 08/23/2023 6495-2-040 / / [id number] Knee Axle Hrhk Rot Mod Hng - [id number] Implanted:Qty: 1 on 03/03/2023 by Cholo Shah MD at OR [facility] Right: Knee ROSALIA : ORTHOPAEDICS 06/30/2027 6481-2-120 / / [id number] Restrictors Med Cmnt K747-5713 - [id number] Implanted:Qty: 1 on 03/03/2023 by Cholo Shah MD at OR [facility] Right: Knee ROSALIA : ORTHOPAEDICS 11/18/2027 U930-2068 / / Cement Bone Full Mix Surg Simp - [id number] Implanted:Qty: 1 on 03/03/2023 by Cholo Shah MD at OR [facility] Right: Knee ROSALIA : ORTHOPAEDICS 07/09/2025 6191-1-010 / / [id number] Cement Bone Full Mix Surg Simp - [id number] Implanted:Qty: 1 on 03/03/2023 by Cholo Shah MD at OR [facility] Right: Knee ROSALIA : ORTHOPAEDICS 06/08/2025 6191-1-010 / / [id number] Cement Bone Full Mix Surg Simp - [id number] Implanted:Qty: 1 on 03/03/2023 by Cholo Shah MD at OR [facility] Right: Knee ROSALIA : ORTHOPAEDICS 05/08/2025 6191-1-010 / / [id number] Knee Fem Gmrs Dis Std R - [id number] Implanted:Qty: 1 on 03/10/2023 by Cholo Shah MD at OR [facility] Right: Knee ROSALIA : ORTHOPAEDICS 10/21/2027 6495-2-040 / / [id number] Knee Hrhk Mod Rot Hng Bushing - [id number] Implanted:Qty: 1 on 03/10/2023 by Cholo Shah MD at OR [facility] Right: Knee ROSALIA : ORTHOPAEDICS 01/29/2027 6481-2-110 / / [id number] Knee Axle Hrhk Rot Mod Hng - [id number] Implanted:Qty: 1 on 03/10/2023 by Cholo Shah MD at OR [facility] Right: Knee ROSALIA : ORTHOPAEDICS 09/15/2027 6481-2-120 / / [id number] Tib Mrh Cross Bear Long Xs/Xl - [id number] Implanted:Qty: 1 on 03/10/2023 by Cholo Shah MD at OR [facility] Right: Knee ROSALIA : ORTHOPAEDICS 09/30/2027 6481-2-103 / / [id number] Knee Hrhk Mod Rot Hng Bushing - [id number] Implanted:Qty: 1 on 03/10/2023 by Cholo Shah MD at OR [facility] Right: Knee ROSALIA : ORTHOPAEDICS 04/24/2027 6481-2-110 / / [id number] Knee Tib Bumper Rot Hng Nue - [id number] Implanted:Qty: 1 on 03/10/2023 by Cholo Shah MD at OR [facility] Right: Knee ROSALIA : ORTHOPAEDICS 10/15/2027 6481-2-130 / / [id number] documented as of this encounter Advance Directives Documents on File Type Date Recorded Patient Manager File Expl 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 Care Teams Institutional Research Director Relationship Specialty Start Date End Date Kat Hawthorne DO [address] [facility] [address] PCP - General Family Medicine 08/20/22 documented as of this encounter
--- OUTSIDE RECORDS SUMMARY | 2024-07-24 20:36 | External Medical Summary | Summary of Care ---
Author Name Unknown Organization [facility] Address [address] [place] [address] Phone [phone] Care Team Providers Care Pet Feeder Name Role Phone Kat Hawthorne Salma ALARCON Primary Care Provider Reason for Visit * Reason Comments Outpatient Testing Encounter Details Date Type Department Care Team (Late st Contact Info) Description 07/04/2024 11:20 AM EDT Laboratory Laboratory, [facility] [address] [place] [id number] [facility] [address] [place] [address] History of recent blood transfusion; Acquired hemolytic [...] IN GASIndications:ILD (interstitial lung disease) ([facility]),Chronic respiratory failure with hypoxia (HCC) Use 2 LPM with exertion and 3 LPM with sleep. Needs small portable tanks, standing concentrator DME: [employer] 1 Each 07/02/2022 Active Proventil HFA 108 (90 Base) MCG/ACT Inhalation Aerosol SolutionIndications: ILD (interstitial lung disease) ([facility]) Inhale by mouth 2 Puffs every [...] by mouth in the morning. Active Nystatin 548405 UNIT/GM External Powder (Nystop) Apply topically to [...] fall No pain, no diarrhea currently [place] (myocardial infarction) 04/14/2023 Hyperlipidemia 04/14/2023 History of [...] & Plan: S/P wound vac placement at [facility] On doxycycline 100 mg BID [...] History - s/p surgery & treatment per SECTION WEAVER note on 11/18/23 Ca 125: 68.8 U/mL [...] mRNA, LNP-s, No Pre serve, 2-Dose Series ([employer]) 08/23/2021,01/26/2021,01/05/2021 Pneumococcal Conjugate Vacc, 13 Valent (Prevnar) [...] 08/22/2024 2:15 PM EDT Office Visit Hematology/Oncology [facility] [address] [place] [address] Robert Marion MD [address] [place] [address] 08/29/2024 11:00 AM EDT Office Visit Cardiology, [facility] [address] [place] [address] Shilpi Bailey PA-C [address] [place] [address] 10/07/2024 11:50 AM EST Office Visit [facility] [address] [place] [address] Kat Hawthorne DO [address] [place] [address] Pending Results Name Type Priority Associated Diagnoses Date /Time CBC WITH WBC DIFFERENTIAL Lab STAT History of recent blood transfusion Acquired hemolytic anemia (HCC) 07/04/2024 11:20 AM EDT COMPREHENSIVE METABOLIC PANEL Lab STAT History of recent blood transfusion Acquired hemolytic anemia (HCC) 07/04/2024 11:20 AM EDT CBC Lab STAT History of recent blood transfusion Acquired hemolytic anemia (HCC) 07/04/2024 11:20 AM EDT DIFFERENTIAL, AUTOMATED Lab STAT History of recent blood transfusion Acquired hemolytic anemia (HCC) 07/04/2024 11:20 AM EDT Scheduled Procedures Name Priority Associated [...] 03/21/2024, 02/0 07/2023, 05/27/2018, Additional history exists GFR 11/01/2024 05/02/2024, 03/09, 02/15/2024, Additional history exists Mammogram 12/09/2024 12/09/2023, 11/11, 04/30/2022, Additional history exists Diabetic Eye Exam 03/10/2025 03/10/2024, , 01/30/2023, Additional history exists CKD PHOS USE SMARTSET 06991 03/21/202503/09, 03/16/2023, 03/15/2023, Additional history exists Depression Screening 03/21/2025 03/21/2024 Albumin/Creatinine Ratio 03/22/2025 024, 09/04/2021, 01/27/2019, Additional history exists Diabetic Foot Exam 04/27/2025 04/27/2024 O2 ASSESSMENT COMPLETED IN PAST YEAR FOR COPD 06/13/2025 06/13/2024 CKD HGB USE SMARTSET 81248 06/20/202506/20, 06/20/2024, 06/06/2024, Additional history exists Lipid Panel 09/03/2027 09/03/2022, [...] this encounter Medical Devices Implanted Type Area Delicatessen Manager Device Identifier Shelf Expiration Date Model / Serial / Lot Cement Bone Simplex Hv & G - [id number] Implanted:Qty: 2 on 01/05/2023 by Harley Nguyen, DO at [facility] Left: Knee ROSALIA : ORTHOPAEDICS 06/08/2024 6195-1-010 / / [id number] Component Femoral Size 5 - [id number] Implanted:Qty: 1 on 01/05/2023 by Harley Nguyen DO at OR [facility] Left: Knee [employer]IA : ORTHOPAEDICS 08/09/2026 5510-F-501 / / [id number] Knee Tria Syetric X3 10x36 - [id number] Implanted:Qty: 1 on 01/05/2023 by Harley Nguyen DO at OR [facility] Left: Knee [employer]IA : ORTHOPAEDICS 09/24/2027 5550-G-360 -E / / [id number] Baseplate Tib 5 Knee - [id number] Implanted:Qty: 1 on 01/05/2023 by Harley Nguyen DO at OR [facility] Left: Knee [employer]IA : ORTHOPAEDICS 12/14/2027 5521-B-500 / / [id number] Knee X3 Ins Pos Cs Sz5 9 - [id number] Implanted:Qty: 1 on 01/05/2023 by Harley Nguyen DO at OR [facility] Left: Knee [employer]IA : ORTHOPAEDICS 11/19/2027 5531-G-509 -E / / [id number] Cement Bone Full Mix Surg Simp - [id number] Implanted:Qty: 1 on 03/03/2023 by Cholo Shah MD at [place] [facility] Right: Knee ROS[employer]IA : ORTHOPAEDICS 05/08/2025 6191-1-010 / / [id number] Knee Tib Comp Poly Krh 8 Lg - [id number] Implanted:Qty: 1 on 03/03/2023 by Cholo Shah MD at [place] [facility] Right: Knee [employer]IA : ORTHOPAEDICS 07/19/2023 6485-2-308 / / [id number] Knee Hrhk Mod Rot Hng Bushing - [id number] Implanted:Qty: 1 on 03/03/2023 by Cholo Shah MD at [place] [facility] Right: Knee ROS[employer]IA : ORTHOPAEDICS 01/09/2027 6481-2-110 / / [id number] Knee Hrhk Mod Rot Hng Bushing - [id number] Implanted:Qty: 1 on 03/03/2023 by Cholo Shah MD at [place] [facility] Right: Knee [employer]IA : ORTHOPAEDICS 11/21/2026 6481-2-110 / / [id number] Knee Stem Crv Mod Mrs 04h015 - [id number] Implanted:Qty: 1 on 03/03/2023 by Cholo Shah MD at [place] [facility] Right: Knee ROS[employer]IA : ORTHOPAEDICS 10/02/2026 6485-3-715 / / [id number] Tib Mrh Cross Bear Long Xs/Xl - [id number] Implanted:Qty: 1 on 03/03/2023 by Cholo Shah MD at [place] [facility] Right: Knee [employer]IA : ORTHOPAEDICS 12/05/2025 6481-2-103 / / [id number] Knee Tib Bumper Rot Hng Nue - [id number] Implanted:Qty: 1 on 03/03/2023 by Cholo Shah MD at [place] [facility] Right: Knee [employer]IA : ORTHOPAEDICS 07/15/2027 6481-2-130 / / [id number] Distal Femoral Component Implanted:Qty: 1 on 03/03/2023 by Cholo Shah MD at [place] [facility] Right: Knee [employer]IA : ORTHOPAEDICS 08/23/2023 6495-2-040 / / [id number] Knee Axle Hrhk Rot Mod Hng - [id number] Implanted:Qty: 1 on 03/03/2023 by Cholo Shah MD at [place] [facility] Right: Knee ROS[employer]IA : ORTHOPAEDICS 06/30/2027 6481-2-120 / / [id number] Restrictors Med Cmnt U337-3822 - [id number] Implanted:Qty: 1 on 03/03/2023 by Cholo Shah MD at [place] [facility] Right: Knee [employer]IA : ORTHOPAEDICS 11/18/2027 Y337-3318 / / Cement Bone Full Mix Surg Simp - [id number] Implanted:Qty: 1 on 03/03/2023 by Cholo Shah MD at [place] [facility] Right: Knee [employer]IA : ORTHOPAEDICS 07/09/2025 6191-1-010 / / [id number] Cement Bone Full Mix Surg Simp - [id number] Implanted:Qty: 1 on 03/03/2023 by Cholo Shah MD at [place] [facility] Right: Knee [employer]IA : ORTHOPAEDICS 06/08/2025 6191-1-010 / / [id number] Cement Bone Full Mix Surg Simp - [id number] Implanted:Qty: 1 on 03/03/2023 by Cholo Shah MD at [place] [facility] Right: Knee [employer]IA : ORTHOPAEDICS 05/08/2025 6191-1-010 / / [id number] Knee Fem Gmrs Dis Std R - [id number] Implanted:Qty: 1 on 03/10/2023 by Cholo Shah MD at [place] [facility] Right: Knee [employer]IA : ORTHOPAEDICS 10/21/2027 6495-2-040 / / [id number] Knee Hrhk Mod Rot Hng Bushing - [id number] Implanted:Qty: 1 on 03/10/2023 by Cholo Shah MD at [place] [facility] Right: Knee [employer]IA : ORTHOPAEDICS 01/29/2027 6481-2-110 / / [id number] Knee Axle Hrhk Rot Mod Hng - [id number] Implanted:Qty: 1 on 03/10/2023 by Cholo Shah MD at [place] [facility] Right: Knee [employer]IA : ORTHOPAEDICS 09/15/2027 6481-2-120 / / [id number] Tib Mrh Cross Bear Long Xs/Xl - [id number] Implanted:Qty: 1 on 03/10/2023 by Cholo Shah MD at [place] [facility] Right: Knee ROS[employer]IA : ORTHOPAEDICS 09/30/2027 6481-2-103 / / [id number] Knee Hrhk Mod Rot Hng Bushing - [id number] Implanted:Qty: 1 on 03/10/2023 by Cholo Shah MD at [place] [facility] Right: Knee ROSALIA : ORTHOPAEDICS 04/24/2027 6481-2-110 / / [id number] Knee Tib Bumper Rot Hng Nue - [id number] Implanted:Qty: 1 on 03/10/2023 by Cholo Shah MD at [place] [facility] Right: Knee ROS[employer]IA : ORTHOPAEDICS 10/15/2027 6481-2-130 / / [id number] documented as of this encounter Visit Diagnoses Diagnosis History of recent blood transfusion Acquired hemolytic anemia (HCC) Acquired hemolytic anemia, unspecified documented in this encounter Advance Directives Documents on File Type Date Recorded Patient Kitchen Steward Expl 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 Care Teams Pet Feeder Relationship Specialty Start Date End Date Kat Hawthorne DO [address] [place] [address] PCP - General Family Medicine 08/20/22 documented as of this encounter
--- OUTSIDE RECORDS SUMMARY | 2024-07-24 20:37 | External Medical Summary | Summary of Care ---
Author Name Unknown Organization [facility] Address [address] [place] [address] Phone [phone] Care Team Providers Care Punchboard Inserter Name Role Phone Kat Hawthorne Primary Care Provider [phone] Reason for Visit * Reason Comments Outpatient Testing Encounter Details Date Type Department Care Team (Late st Contact Info) Description 06/20/2024 10:10 AM EDT Laboratory Laboratory, [facility] [address] [place] [id number] [facility] [address] [place] [address] Anemia in other chronic diseases classified elsewhere; Acquired hemolytic anemia (HCC) Allergies Active Allergy [...] as of this encounter (statuses as of 06/20/2024) Medications Medication Sig Dispensed Refills Start Date [...] by mouth in the morning. Active Nystatin 880834 UNIT/GM External Powder (Nystop) Apply topically to [...] as of this encounter (statuses as of 06/20/2024) Active Problems Problem Noted Date Diagnosed Date [...] as of this encounter (statuses as of 06/20/2024) Resolved Problems Problem Noted Date Diagnosed Date [...] History - s/p surgery & treatment per WOUND/OSTOMY CLINICAL NURSE SPECIALIST note on 11/18/23 Ca 125: 68.8 U/mL [...] as of this encounter (statuses as of 06/20/2024) Immunizations Name Administration Dates Next Due COVID-19 mRNA, LNP-s, No Pre serve, 2-Dose Series ([email or web address]) 08/23/2021,01/26/2021,01/05/2021 Pneumococcal Conjugate Vacc, 13 Valent (Prevnar) [...] 08/22/2024 2:15 PM EDT Office Visit Hematology/Oncology [facility] [address] [place] [address] Robert Marion MD [address] [place] [address] 08/29/2024 11:00 AM EDT Office Visit Cardiology, [facility] [address] [place] [address] Shilpi Bailey PA-C [address] [address] 10/07/2024 11:50 AM EST Office Visit [facility] [address] [place] [address] Kat Hawthorne DO [address] [place] [address] Pending Results Name Type Priority Associated Diagnoses Date /Time CBC WITH WBC DIFFERENTIAL Lab STAT Anemia in other chronic diseases classified elsewhere Acquired hemolytic anemia (HCC) 06/20/2024 10:03 AM EDT CBC Lab STAT Anemia in other chronic diseases classified elsewhere Acquired hemolytic anemia (HCC) 06/20/2024 10:03 AM EDT DIFFERENTIAL, AUTOMATED Lab STAT Anemia in other chronic diseases classified elsewhere Acquired hemolytic anemia (HCC) 06/20/2024 10:03 AM EDT Scheduled Procedures Name Priority Associated [...] Additional history exists CKD PHOS USE SMARTSET 81907 03/21/202503/09, 03/16/2023, 03/15/2023, Additional history exists Depression Screening 03/21/2025 03/21/2024 Albumin/Creatinine Ratio 03/22/2025 024, 09/04/2021, 01/27/2019, Additional history exists Diabetic Foot Exam 04/27/2025 04/27/2024 CKD HGB USE SMARTSET 30823 06/06/202506/06, 06/06/2024, 05/24/2024, Additional history exists O2 ASSESSMENT COMPLETED IN PAST YEAR FOR COPD 06/13/2025 06/13/2024 Lipid Panel 09/03/2027 09/03/2022, 09/09, 08/02/2019, Additional [...] this encounter Medical Devices Implanted Type Area Technical Support Intern Device Identifier Shelf Expiration Date Model / Serial / Lot Cement Bone Simplex Hv & G - [id number] Implanted:Qty: 2 on 01/05/2023 by Harley Nguyen, at OR [facility] Left: Knee ROS[employer]IA : ORTHOPAEDICS 06/08/2024 6195-1-010 / / [id number] Femoral Size 5 - [id number] Implanted:Qty: 1 on 01/05/2023 by Harley Nguyen DO at OR [facility] Left: Knee [employer]IA : ORTHOPAEDICS 08/09/2026 5510-F-501 / / [id number] Knee Tria Syetric X3 10x36 - [id number] Implanted:Qty: 1 on 01/05/2023 by Harley Nguyen DO at OR [facility] Left: Knee ROS[employer]IA : ORTHOPAEDICS 09/24/2027 5550-G-360 -E / / [id number] Baseplate Tib 5 Knee - [id number] Implanted:Qty: 1 on 01/05/2023 by Harley Nguyen DO at OR [facility] Left: Knee ROS[employer]IA : ORTHOPAEDICS 12/14/2027 5521-B-500 / / [id number] Knee X3 Ins Pos Cs Sz5 9 - [id number] Implanted:Qty: 1 on 01/05/2023 by Harley Nguyen DO at OR [facility] Left: Knee [employer]IA : ORTHOPAEDICS 11/19/2027 5531-G-509 -E / / [id number] Cement Bone Full Mix Surg Simp - [id number] Implanted:Qty: 1 on 03/03/2023 by Cholo Shah MD at [place] [facility] Right: Knee [employer]IA : ORTHOPAEDICS 05/08/2025 6191-1-010 / / [id number] Knee Tib Comp Poly Krh 8 Lg - [id number] Implanted:Qty: 1 on 03/03/2023 by Cholo Shah MD at [place] [facility] Right: Knee [employer]IA : ORTHOPAEDICS 07/19/2023 6485-2-308 / / [id number] Knee Hrhk Mod Rot Hng Bushing - [id number] Implanted:Qty: 1 on 03/03/2023 by Cholo Shah MD at [place] [facility] Right: Knee [employer] : ORTHOPAEDICS 01/09/2027 6481-2-110 / / [id number] Knee Hrhk Mod Rot Hng Bushing - [id number] Implanted:Qty: 1 on 03/03/2023 by Cholo Shah MD at [place] [facility] Right: Knee [employer] : ORTHOPAEDICS 11/21/2026 6481-2-110 / / [id number] Knee Stem Crv Mod Mrs 42p237 - [id number] Implanted:Qty: 1 on 03/03/2023 by Cholo Shah MD at [place] [facility] Right: Knee [employer] : ORTHOPAEDICS 10/02/2026 6485-3-715 / / [id number] Tib Mrh Cross Bear Long Xs/Xl - [id number] Implanted:Qty: 1 on 03/03/2023 by Cholo Shah MD at [place] [facility] Right: Knee [employer] : ORTHOPAEDICS 12/05/2025 6481-2-103 / / [id number] Knee Tib Bumper Rot Hng Nue - [id number] Implanted:Qty: 1 on 03/03/2023 by Cholo Shah MD at [place] [facility] Right: Knee [employer]IA : ORTHOPAEDICS 07/15/2027 6481-2-130 / / [id number] Distal Femoral Component Implanted:Qty: 1 on 03/03/2023 by Cholo Shah MD at [place] [facility] Right: Knee [employer] : ORTHOPAEDICS 08/23/2023 6495-2-040 / / [id number] Knee Axle Hrhk Rot Mod Hng - [id number] Implanted:Qty: 1 on 03/03/2023 by Cholo Shah MD at [place] [facility] Right: Knee [employer]IA : ORTHOPAEDICS 06/30/2027 6481-2-120 / / [id number] Restrictors Med Cmnt X483-8352 - [id number] Implanted:Qty: 1 on 03/03/2023 by Cholo Shah MD at [place] [facility] Right: Knee [employer]IA : ORTHOPAEDICS 11/18/2027 V174-4394 / / Cement Bone Full Mix Surg Simp - [id number] Implanted:Qty: 1 on 03/03/2023 by Cholo Shah MD at [place] [facility] Right: Knee [employer]IA : ORTHOPAEDICS 07/09/2025 6191-1-010 / / [id number] Cement Bone Full Mix Surg Simp - [id number] Implanted:Qty: 1 on 03/03/2023 by Cholo Shah MD at [place] [facility] Right: Knee [employer]IA : ORTHOPAEDICS 06/08/2025 6191-1-010 / / [id number] Cement Bone Full Mix Surg Simp - [id number] Implanted:Qty: 1 on 03/03/2023 by Cholo Shah MD at [place] [facility] Right: Knee [employer]IA : ORTHOPAEDICS 05/08/2025 6191-1-010 / / [id number] Knee Fem Gmrs Dis Std R - [id number] Implanted:Qty: 1 on 03/10/2023 by Cholo Shah MD at [place] [facility] Right: Knee ROS[employer]IA : ORTHOPAEDICS 10/21/2027 6495-2-040 / / [id number] Knee Hrhk Mod Rot Hng Bushing - [id number] Implanted:Qty: 1 on 03/10/2023 by Cholo Shah MD at [place] [facility] Right: Knee [employer]IA : ORTHOPAEDICS 01/29/2027 6481-2-110 / / [id number] Knee Axle Hrhk Rot Mod Hng - [id number] Implanted:Qty: 1 on 03/10/2023 by Cholo Shah MD at [place] [facility] Right: Knee [employer]IA : ORTHOPAEDICS 09/15/2027 6481-2-120 / / [id number] Tib Mrh Cross Bear Long Xs/Xl - [id number] Implanted:Qty: 1 on 03/10/2023 by Cholo Shah MD at [place] [facility] Right: Knee ROS[employer]IA : ORTHOPAEDICS 09/30/2027 6481-2-103 / / [id number] Knee Hrhk Mod Rot Hng Bushing - [id number] Implanted:Qty: 1 on 03/10/2023 by Cholo Shah MD at [place] [facility] Right: Knee [employer]IA : ORTHOPAEDICS 04/24/2027 6481-2-110 / / [id number] Knee Tib Bumper Rot Hng Nue - [id number] Implanted:Qty: 1 on 03/10/2023 by Cholo Shah MD at [place] [facility] Right: Knee [employer]IA : ORTHOPAEDICS 10/15/2027 6481-2-130 / / [id number] documented as of this encounter Visit Diagnoses Diagnosis Anemia in other chronic diseases classified elsewhere Acquired hemolytic anemia (HCC) Acquired hemolytic anemia, unspecified documented in this encounter Advance Directives Documents on File Type Date Recorded Patient Crew Caller Expl 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 Care Teams Punchboard Inserter Relationship Specialty Start Date End Date Kat Hawthorne DO [address] [place] [address] PCP - General Family Medicine 08/20/22 documented as of this encounter
--- OUTSIDE RECORDS SUMMARY | 2024-07-24 20:37 | External Medical Summary | Summary of Care ---
Author Name Unknown Organization [facility] Address [address] [place] [address] Phone [phone] Care Team Providers Care Front End Assistant Name Role Phone Kat Hawthorne Primary Care Provider Reason for Visit * Reason Onset Date Comments Order Request 06/15/2024 Kash Encounter Details Date Type Department Care Team (Late st Contact Info) Description 06/15/2024 Telephone Pulmonary Medicine, [facility] [address], [place] [phone] Leigh Canales MD [address] [place] [address] Order Request (Kash) Allergies Active Allergy Reactions Criticality Noted Date [...] as of this encounter (statuses as of 06/15/2024) Medications Medication Sig Dispensed Refills Start Date [...] (interstitial lung disease) ([facility]),Chronic respiratory failure with hypoxia ([facility]) Use 2 LPM with exertion and 3 LPM with sleep. Needs small portable tanks, standing concentrator DME: [facility] 1 Each 2 Active Proventil HFA 108 (90 Base) MCG/ACT Inhalation Aerosol SolutionIndication s:ILD (interstitial lung disease) ([facility]) Inhale by mouth 2 Puffs every 4 [...] by mouth in the morning. Active Nystatin 443213 UNIT/GM External Powder (Nystop) Apply topically to [...] Capsule before bedtime. 90 Capsule 10 3 06/15/20 24 Discontinued documented as of this encounter (statuses as of 06/15/2024) Active Problems Problem Noted Date Diagnosed Date [...] fall No pain, no diarrhea currently Old [place] (myocardial infarction) 04/14/2023 Hyperlipidemia 04/14/2023 History of [...] as of this encounter (statuses as of 06/15/2024) Resolved Problems Problem Noted Date Diagnosed Date [...] Plan: S/P wound vac placement at [facility] On doxycycline 100 mg BID x [...] History - s/p surgery & treatment per SHOVEL LOG LOADER OPERATOR note on 11/18/23 Ca 125: 68.8 [...] as of this encounter (statuses as of 06/15/2024) Immunizations Name Administration Dates Next Due COVID-19 mRNA, LNP-s, No Pre serve, 2-Dose Series ([employer]) 08/23/2021,01/26/2021,01/05/2021 Pneumococcal Conjugate Vacc, 13 Valent (Prevnar) [...] encounter Miscellaneous Notes * Telephone Encounter - Natty Vasquez RRT-CHAINSTITCH BINDER - 06/15/2024 10:24 AM EDT Order for NIV setting changes have been faxed to [facility]. Message sent to Marcio Magdaleno , to inform us when changes are made. documented in this encounter Plan of Treatment Upcoming Encounters Date Type Department Care Team (Late st Contact Info) Description 06/17/2024 2:30 PM EDT Home Visit [facility] [address] [place] [address] July Diaz RN [address] [place] [address] 08/22/2024 2:15 PM EDT Office Visit Hematology/Oncology [facility] [address] [facility] [place] [phone] Robert Marion MD [address] [facility] [place] [address] 08/29/2024 11:00 AM EDT Office Visit Cardiology, [facility] [address] [place] [address] Shilpi Bailey PA-C [address] [place] [address] 10/07/2024 11:50 AM EST Office Visit [facility] [address] [place] [address] Kat Hawthorne, [address] [place] [address] Scheduled Procedures Name Priority Associated Diagnoses Date/Ti [...] Additional history exists CKD PHOS USE SMARTSET 79858 03/21/202503/09, 03/16/2023, 03/15/2023, Additional history exists Depression Screening 03/21/2025 03/21/2024 Albumin/Creatinine Ratio 03/22/202503/22/2 024, 09/04/2021, 01/27/2019, Additional history exists Diabetic Foot Exam 04/27/2025 04/27/2024 CKD HGB USE SMARTSET 19248 06/06/202506/06, 06/06/2024, 05/24/2024, Additional history exists O2 [...] this encounter Medical Devices Implanted Type Area Furniture Restorer Device Identifier Shelf Expiration Date Model / Serial / Lot Cement Bone Simplex Hv & G - [id number] Implanted:Qty: 2 on 01/05/2023 by Harley Nguyen DO at OR [facility] Left: Knee ROSALIA : ORTHOPAEDICS 06/08/2024 6195-1-010 / / [id number] Component Femoral Size 5 - [id number] Implanted:Qty: 1 on 01/05/2023 by Harley Nguyen DO at OR [facility] Left: Knee ROSALIA : ORTHOPAEDICS 08/09/2026 5510-F-501 / / [id number] Knee Tria Syetric X3 10x36 - [id number] Implanted:Qty: 1 on 01/05/2023 by Harley Nguyen DO at OR [facility] Left: Knee ROSALIA : ORTHOPAEDICS 09/24/2027 5550-G-360 -E / / [id number] Baseplate Tib 5 Knee - [id number] Implanted:Qty: 1 on 01/05/2023 by Harley Nguyen DO at OR [facility] Left: Knee ROSALIA : ORTHOPAEDICS 12/14/2027 5521-B-500 / / [id number] Knee X3 Ins Pos Cs Sz5 9 - [id number] Implanted:Qty: 1 on 01/05/2023 by Harley Nguyen DO at OR [facility] Left: Knee ROSALIA : ORTHOPAEDICS 11/19/2027 5531-G-509 -E / / [id number] Cement Bone Full Mix Surg Simp - [id number] Implanted:Qty: 1 on 03/03/2023 by Cholo Shah MD at OR [facility] Right: Knee ROSALIA : ORTHOPAEDICS 05/08/2025 6191-1-010 / / [id number] Knee Tib Comp Poly Krh 8 Lg - [id number] Implanted:Qty: 1 on 03/03/2023 by Cholo Shah MD at OR [facility] Right: Knee ROSALIA : ORTHOPAEDICS 07/19/2023 6485-2-308 / / [id number] Knee Hrhk Mod Rot Hng Bushing - [id number] Implanted:Qty: 1 on 03/03/2023 by Cholo Shah MD at OR [facility] Right: Knee ROSALIA : ORTHOPAEDICS 01/09/2027 6481-2-110 / / [id number] Knee Hrhk Mod Rot Hng Bushing - [id number] Implanted:Qty: 1 on 03/03/2023 by Cholo Shah MD at OR [facility] Right: Knee ROSALIA : ORTHOPAEDICS 11/21/2026 6481-2-110 / / [id number] Knee Stem Crv Mod Mrs 05p998 - [id number] Implanted:Qty: 1 on 03/03/2023 by Cholo Shah MD at OR [facility] Right: Knee ROSALIA : ORTHOPAEDICS 10/02/2026 6485-3-715 / / [id number] Tib Mrh Cross Bear Long Xs/Xl - [id number] Implanted:Qty: 1 on 03/03/2023 by Cholo Shah MD at OR [facility] Right: Knee ROSALIA : ORTHOPAEDICS 12/05/2025 6481-2-103 / / [id number] Knee Tib Bumper Rot Hng Nue - [id number] Implanted:Qty: 1 on 03/03/2023 by Cholo Shah MD at OR [facility] Right: Knee ROSALIA : ORTHOPAEDICS 07/15/2027 6481-2-130 / / [id number] Distal Femoral Component Implanted:Qty: 1 on 03/03/2023 by Cholo Shah MD at OR [facility] Right: Knee ROSALIA : ORTHOPAEDICS 08/23/2023 6495-2-040 / / [id number] Knee Axle Hrhk Rot Mod Hng - [id number] Implanted:Qty: 1 on 03/03/2023 by Cholo Shah MD at OR [facility] Right: Knee ROSALIA : ORTHOPAEDICS 06/30/2027 6481-2-120 / / [id number] Restrictors Med Cmnt L200-6169 - [id number] Implanted:Qty: 1 on 03/03/2023 by Cholo Shah MD at OR [facility] Right: Knee ROSALIA : ORTHOPAEDICS 11/18/2027 S468-6813 / / Cement Bone Full Mix Surg Simp - [id number] Implanted:Qty: 1 on 03/03/2023 by Cholo Shah MD at OR [facility] Right: Knee ROSALIA : ORTHOPAEDICS 07/09/2025 6191-1-010 / / [id number] Cement Bone Full Mix Surg Simp - [id number] Implanted:Qty: 1 on 03/03/2023 by Cholo Shah MD at OR [facility] Right: Knee ROSALIA : ORTHOPAEDICS 06/08/2025 6191-1-010 / / [id number] Cement Bone Full Mix Surg Simp - [id number] Implanted:Qty: 1 on 03/03/2023 by Cholo Shah MD at OR [facility] Right: Knee ROSALIA : ORTHOPAEDICS 05/08/2025 6191-1-010 / / [id number] Knee Fem Gmrs Dis Std R - [id number] Implanted:Qty: 1 on 03/10/2023 by Cholo Shah MD at OR [facility] Right: Knee ROSALIA : ORTHOPAEDICS 10/21/2027 6495-2-040 / / [id number] Knee Hrhk Mod Rot Hng Bushing - [id number] Implanted:Qty: 1 on 03/10/2023 by Cholo Shah MD at OR [facility] Right: Knee ROSALIA : ORTHOPAEDICS 01/29/2027 6481-2-110 / / [id number] Knee Axle Hrhk Rot Mod Hng - [id number] Implanted:Qty: 1 on 03/10/2023 by Cholo Shah MD at OR [facility] Right: Knee ROSALIA : ORTHOPAEDICS 09/15/2027 6481-2-120 / / [id number] Tib Mrh Cross Bear Long Xs/Xl - [id number] Implanted:Qty: 1 on 03/10/2023 by Cholo Shah MD at OR [facility] Right: Knee ROSALIA : ORTHOPAEDICS 09/30/2027 6481-2-103 / / [id number] Knee Hrhk Mod Rot Hng Bushing - [id number] Implanted:Qty: 1 on 03/10/2023 by Cholo Shah MD at OR [facility] Right: Knee ROSALIA : ORTHOPAEDICS 04/24/2027 6481-2-110 / / [id number] Knee Tib Bumper Rot Hng Nue - [id number] Implanted:Qty: 1 on 03/10/2023 by Cholo Shah MD at OR [facility] Right: Knee ROSALIA : ORTHOPAEDICS 10/15/2027 6481-2-130 / / [id number] documented as of this encounter Advance Directives Documents on File Type Date Recorded Patient Junior Network Administrator Expl 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 Care Teams Front End Assistant Relationship Specialty Start Date End Date Kat Hawthorne DO [address] [facility] [place] [address] PCP - General Family Medicine 08/20/22 documented as of this encounter
--- OUTSIDE RECORDS SUMMARY | 2024-07-24 20:37 | External Medical Summary ---
Author Name Unknown Address Unknown Organization K0G[facility] [address] [place] [address] Laboratory Report Ordering Provider Test Date Status ANGEL GUERRERO 07/04/2024 11:20:00 Final Observation Date Value Abnormality Reference (Units ) Status WBC, Total 07/04/2024 11:20:00 10.79 4.00-10.8 0 (K/uL) Final RBC 07/04/2024 11:20:00 3.47 3.85-5.15 (M/uL) Final Hemoglobin 07/04/2024 11:20:00 9.8 Below low normal 12 .0-15.3 (g/dL) Final HCT 07/04/2024 11:20:00 33.7 Below low normal 36. 0-45.2 (%) Final MCV 07/04/2024 11:20:00 97.1 81.5-97.5 (fL) Final MCH 07/04/2024 11:20:00 28.2 27.0-34.0 (pg) Final MCHC 07/04/2024 11:20:00 29.1 32.0-36.0 (g/dL) Final RDW 07/04/2024 11:20:00 21.6 11.5-15.5 (%) Final Platelets 07/04/2024 11:20:00 130 Below low normal 140 -400 (K/uL) Final MPV 07/04/2024 11:20:00 11.9 6.6-11.1 ( fL) Final Performing Location [facility] [address] [place] [address]
--- OUTSIDE RECORDS SUMMARY | 2024-07-24 20:37 | External Medical Summary | Summary of Care ---
Author Name Unknown Organization [facility] Address [address] [place] [address] Phone [phone] Care Team Providers Care Senior Mainframe Programmer Analyst Name Role Phone Antonia Hawthorne DO Primary Care Provider [phone] Reason for Visit * Reason Comments eRx-Medication Refill Encounter Details Date Type Department Care Team (Late st Contact Info) Description 06/12/2024 Refill [facility] [address] [place] [address] Antonia Hawthorne DO [address] [place] [address] Allergies Active Allergy Reactions Criticality [...] ([facility]),Chronic respiratory failure with hypoxia ([facility]) Use 2 LPM with exertion and 3 LPM with sleep. Needs small portable tanks, standing concentrator DME: [facility]plus 1 Each 2 Active Proventil HFA 108 (90 Base) MCG/ACT Inhalation Aerosol SolutionIndication s:ILD (interstitial lung disease) ([facility]) Inhale [...] by mouth in the morning. Active Nystatin 991075 UNIT/GM External Powder (Nystop) Apply topically to [...] Active LORazepam 0.5 MG Oral Tablet (Ativan)Indication s:BILYL (generalized anxiety disorder) Take 1 Tablet by mouth every 8 hours as needed for Anxiety. 60 Tablet 4 Active Gabapentin 300 MG Oral Capsule (Neurontin) TAKE 1 CAPSULE BY MOUTH THREE TIMES DAILY 90 Capsule 9 4 Active Gabapentin 300 MG Oral Capsule [...] fall No pain, no diarrhea currently Old [place] (myocardial infarction) 04/14/2023 Hyperlipidemia 04/14/2023 History of [...] History - s/p surgery & treatment per WAX PUMPER note on 11/18/23 Ca 125: 68.8 U/mL [...] Telephone Encounter - Antonia Hawthorne DO - 06/15/2024 10:33 AM EDTSigned Prescriptions: Disp Refills Gabapentin 300 MG Oral Capsule (Neurontin) 90 Cap*9 Sig: TAKE 1 CAPSULE BY MOUTH THREE TIMES DAILY Authorizing Provider: ANTONIA HAWTHORNE * Telephone Encounter - Bonnie Melgar [facility] - 06/14/2024 7:49 AM EDTPending Prescriptions: Disp Refills Gabapentin 300 MG Oral Capsule (Neurontin) 90 Cap*9 Sig: TAKE 1 CAPSULE BY MOUTH THREE TIMES DAILY * Telephone Encounter - Bonnie Melgar [facility] - 06/14/2024 7:49 AM EDT [facility] is currently not authorized to approve refills for the pended medication(s) per refill protocol. Please approve if appropriate. Did you pend patient's preferred pharmacy and medication before forwarding?yes [facility] [id number] [facility] Pending Prescriptions: Disp Refills Gabapentin 300 MG Oral Capsule (Neurontin) 90 Cap*9 Sig: TAKE 1 CAPSULE BY MOUTH THREE TIMES DAILY Last Visit: 04/27/2024 (in office), 12/04/2020 (telemedicine) Next Visit: 10/07/2024 If no future appointments scheduled, and last appointment is greater than a year ago, please schedule patient for a follow-up appointment Last date the medication was ordered: 04/16/23 Is this request for a controlled substance?No [...] Labs: Lab Results Component Value Date/Time CREAT 1.3 (H) 05/02/2024 12:08 PM CREAT 0.84 05/26/2023 12:00 AM CREAT 0.9 11/28/2020 08:44 AM POTASSIUM 4.3 05/02/2024 12:08 PM POTASSIUM 3.9 05/26/2023 12:00 AM POTASSIUM 5.1 11/28/2020 08:44 AM TSH 3.15 12/09/2019 09:55 AM LDLCALC 76 08/02/2019 11:00 AM LDLDIRECT 97 09/03/2022 01:57 PM ALT 36 (H) 05/02/2024 12:08 PM ALT 25 11/28/2020 08:44 AM HGBA1C 7.1 (H) 03/21/2024 12:19 PM HGBA1C 6.2 05/27/2018 09:52 AM Thank You, Bonnie Melgar [facility] Pharmacist Telepharmacy [phone] 06/14/2024, 7:49 AM documented in this encounter Plan of Treatment Upcoming Encounters Date Type Department Care Team (Late st Contact Info) Description 06/17/2024 2:30 PM EDT [facility] Visit [facility] [address] [place] [address] July Diaz, RN [address] [place] [address] 08/22/2024 2:15 PM EDT Office Visit Hematology/Oncology [facility] [address] [facility] [place], [place] [address] Robert Marion MD [address] [facility] [place] [address] 08/29/2024 11:00 AM EDT Office Visit Cardiology, [facility] [address] [facility] [place] [address] Shilpi Bailey PA-C [address] [place] [address] 10/07/2024 11:50 AM EST Office Visit [facility] [address] [place] [phone] Antonia Hawthorne DO [address] [place] [address] Scheduled Procedures Name Priority Associated Diagnoses Date/Ti [...] Additional history exists CKD PHOS USE SMARTSET 00456 03/21/202503/09, 03/16/2023, 03/15/2023, Additional history exists Depression Screening 03/21/2025 03/21/2024 Albumin/Creatinine Ratio 03/22/2025 024, 09/04/2021, 01/27/2019, Additional history exists Diabetic Foot Exam 04/27/2025 04/27/2024 CKD HGB USE SMARTSET 85526 06/06/202506/06, 06/06/2024, 05/24/2024, Additional history exists O2 [...] this encounter Medical Devices Implanted Type Area Weir Fisherman Device Identifier Shelf Expiration Date Model / Serial / Lot Cement Bone Simplex Hv & G - [id number] Implanted:Qty: 2 on 01/05/2023 by Harley Nguyen, DO at OR [facility] Left: Knee ROSALIA : ORTHOPAEDICS 06/08/2024 6195-1-010 / / [id number] Component Femoral Size 5 - [id number] Implanted:Qty: 1 on 01/05/2023 by Harley Nguyen DO at OR [facility] Left: Knee ROSALIA : ORTHOPAEDICS 08/09/2026 5510-F-501 / / [id number] Knee Tria Syetric X3 10x36 - [id number] Implanted:Qty: 1 on 01/05/2023 by Harley Nguyen DO at OR [facility] Left: Knee ROSALIA : ORTHOPAEDICS 09/24/2027 5550-G-360 -E / / [id number] Baseplate Tib 5 Knee - [id number] Implanted:Qty: 1 on 01/05/2023 by Harley Nguyen DO at OR [facility] Left: Knee ROSALIA : ORTHOPAEDICS 12/14/2027 5521-B-500 / / [id number] Knee X3 Ins Pos Cs Sz5 9 - [id number] Implanted:Qty: 1 on 01/05/2023 by Harley Nguyen DO at OR [facility] Left: Knee ROSALIA : ORTHOPAEDICS 11/19/2027 5531-G-509 -E / / [id number] Cement Bone Full Mix Surg Simp - [id number] Implanted:Qty: 1 on 03/03/2023 by Cholo Shah MD at OR [facility] Right: Knee ROSALIA : ORTHOPAEDICS 05/08/2025 6191-1-010 / / [id number] Knee Tib Comp Poly Krh 8 Lg - [id number] Implanted:Qty: 1 on 03/03/2023 by Cholo Shah MD at OR [facility] Right: Knee ROSALIA : ORTHOPAEDICS 07/19/2023 6485-2-308 / / [id number] Knee Hrhk Mod Rot Hng Bushing - [id number] Implanted:Qty: 1 on 03/03/2023 by Cholo Shah MD at OR [facility] Right: Knee ROSALIA : ORTHOPAEDICS 01/09/2027 6481-2-110 / / [id number] Knee Hrhk Mod Rot Hng Bushing - [id number] Implanted:Qty: 1 on 03/03/2023 by Cholo Shah MD at OR [facility] Right: Knee ROSALIA : ORTHOPAEDICS 11/21/2026 6481-2-110 / / [id number] Knee Stem Crv Mod Mrs 73c631 - [id number] Implanted:Qty: 1 on 03/03/2023 by Cholo Shah MD at OR [facility] Right: Knee ROSALIA : ORTHOPAEDICS 10/02/2026 6485-3-715 / / [id number] Tib Mrh Cross Bear Long Xs/Xl - [id number] Implanted:Qty: 1 on 03/03/2023 by Cholo Shah MD at OR [facility] Right: Knee ROSALIA : ORTHOPAEDICS 12/05/2025 6481-2-103 / / [id number] Knee Tib Bumper Rot Hng Nue - [id number] Implanted:Qty: 1 on 03/03/2023 by Cholo Shah MD at OR [facility] Right: Knee ROSALIA : ORTHOPAEDICS 07/15/2027 6481-2-130 / / [id number] Distal Femoral Component Implanted:Qty: 1 on 03/03/2023 by Cholo Shah MD at OR [facility] Right: Knee ROSALIA : ORTHOPAEDICS 08/23/2023 6495-2-040 / / [id number] Knee Axle Hrhk Rot Mod Hng - [id number] Implanted:Qty: 1 on 03/03/2023 by Cholo Shah MD at OR [facility] Right: Knee ROSALIA : ORTHOPAEDICS 06/30/2027 6481-2-120 / / [id number] Restrictors Med Cmnt C369-5048 - [id number] Implanted:Qty: 1 on 03/03/2023 by Cholo Shah MD at OR [facility] Right: Knee ROSALIA : ORTHOPAEDICS 11/18/2027 A278-9341 / / Cement Bone Full Mix Surg Simp - [id number] Implanted:Qty: 1 on 03/03/2023 by Cholo Shah MD at OR [facility] Right: Knee ROSALIA : ORTHOPAEDICS 07/09/2025 6191-1-010 / / [id number] Cement Bone Full Mix Surg Simp - [id number] Implanted:Qty: 1 on 03/03/2023 by Cholo Shah MD at OR [facility] Right: Knee ROSALIA : ORTHOPAEDICS 06/08/2025 6191-1-010 / / [id number] Cement Bone Full Mix Surg Simp - [id number] Implanted:Qty: 1 on 03/03/2023 by Cholo Shah MD at OR [facility] Right: Knee ROSALIA : ORTHOPAEDICS 05/08/2025 6191-1-010 / / [id number] Knee Fem Gmrs Dis Std R - [id number] Implanted:Qty: 1 on 03/10/2023 by Cholo Shah MD at OR [facility] Right: Knee ROSALIA : ORTHOPAEDICS 10/21/2027 6495-2-040 / / [id number] Knee Hrhk Mod Rot Hng Bushing - [id number] Implanted:Qty: 1 on 03/10/2023 by Cholo Shah MD at OR [facility] Right: Knee ROSALIA : ORTHOPAEDICS 01/29/2027 6481-2-110 / / [id number] Knee Axle Hrhk Rot Mod Hng - [id number] Implanted:Qty: 1 on 03/10/2023 by Cholo Shah MD at OR [facility] Right: Knee ROSALIA : ORTHOPAEDICS 09/15/2027 6481-2-120 / / [id number] Tib Mrh Cross Bear Long Xs/Xl - [id number] Implanted:Qty: 1 on 03/10/2023 by Cholo Shah MD at OR [facility] Right: Knee ROSALIA : ORTHOPAEDICS 09/30/2027 6481-2-103 / / [id number] Knee Hrhk Mod Rot Hng Bushing - [id number] Implanted:Qty: 1 on 03/10/2023 by Cholo Shah MD at OR [facility] Right: Knee ROSALIA : ORTHOPAEDICS 04/24/2027 6481-2-110 / / [id number] Knee Tib Bumper Rot Hng Nue - [id number] Implanted:Qty: 1 on 03/10/2023 by Cholo Shah MD at [facility] Right: Knee ROSALIA : ORTHOPAEDICS 10/15/2027 6481-2-130 / / [id number] documented as of this encounter Advance Directives Documents on File Type Date Recorded Patient Tree Expert Expl 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 Care Teams Senior Mainframe Programmer Analyst Relationship Specialty Start Date End Date Antonia Hawthorne DO [address] [place] [address] PCP - General Family Medicine 08/20/22 documented as of this encounter
--- OUTSIDE RECORDS SUMMARY | 2024-07-24 20:37 | External Medical Summary | Summary of Care ---
Author Name Unknown Organization [facility] Address [address] [place] [address] Phone [phone] Care Team Providers Care Senior Clinical Sas Programmer Name Role Phone Kat Hawthorne Primary Care Provider Reason for Visit * Reason Comments Joint Pain Right shoulder Encounter Details Date Type Department Care Team (Latest Contact Info) Description 07/04/2024 10:00 AM EDT Office Visit Orthopaedics [facility] [address] [place] [address] Davon Fulton MD [address] [place] [...] oxygen IN GASIndications:ILD (interstitial lung disease) ([facility]),Chronic respiratory failure with hypoxia (HCC) Use 2 LPM with exertion and 3 LPM with sleep. Needs small portable tanks, standing concentrator DME: [employer] 1 Each 07/02/2022 Active Proventil HFA 108 (90 Base) MCG/ACT Inhalation Aerosol SolutionIndications: ILD (interstitial lung disease) ([facility]) Inhale by mouth 2 Puffs [...] by mouth in the morning. Active Nystatin 720347 UNIT/GM External Powder (Nystop) Apply topically to [...] & Plan: S/P wound vac placement at [facility] On doxycycline 100 mg BID [...] History - s/p surgery & treatment per WIRE STRIPPING MACHINE OPERATOR note on 11/18/23 Ca 125: [...] no. Injections? no. Nursing Notes: Brooke Reeves, SUSTAINABILITY PROJECT COORDINATOR 07/04/24 1006 Signed Right shoulder pain, wore monitor for [facility] for 3 weeks pain when reaching rquested xrays from [facility] 07/01/24. Pt is RHD. Past Surgical History: Procedure Laterality Date ARTHROPLASTY KNEE TOTAL Left 01/05/2023 ROBOTIC ARTHROPLASTY KNEE TOTAL performed by Harley Nguyen DO at OR [facility] ARTHROPLASTY KNEE TOTAL Right 03/03/2023 ARTHROPLASTY KNEE TOTAL performed by Cholo Shah MD [place] [facility] [place] DEBRIDEMENT, FIRST 20 CM2 Right 03/10/2023 DEBRIDEMENT SKIN SUBCUTANEOUS TISSUE MUSCLE AND BONE performed by Cholo Shah MD [place] [facility] [place]ONOSCOPY, DIAGNOSTIC (RECTUM) 09/25/2017 normal, repeat 10 yrs/[facility] CYSTOSCOPY Left 01/18/2016 stent removal EGD, FLEXIBLE, DIAGNOSTIC 09/25/2017 normal bx/[facility] EGD, FLEXIBLE, DIAGNOSTIC N/A 09/25/2022 small hiatal hernia/EGD/TX EGD, W/ENDOSCOPIC US N/A 01/20/2023 [facility] [...] performed by Harjeet Li MD [place] [facility] [place]IC REVISION FOR OBESITY 1980 Gastric Bypass reversed same yr IMPLANTABLE ACCESS SYST PERC 10/22/2020 INFORMATION Left 04/2021 L pacemaker insertion @ [facility]. INJECT DX/THER SUBSTANCE INTERLAMINAR LUMBAR/SACRAL W IMAGE GUIDE 09/19/2021 INJECTION SPINE LUMBAR OR SACRAL performed by Camron Pathak DO at OR [facility] KNEE ARTHROSCOPY, DIAGNOSTIC 1999 Knee Arthroscopy MISCELLANEOUS ORDER ([facility] ONLY) 1979 gastric stapling REMOVAL OF KIDNEY STONE x2 REMOVAL OF TONSILS, AGE 12+ at age 10 REPAIR INITIAL INCISIONAL OR VENTRAL HERNIA; REDUCIBLE N/A 04/27/2017 REPAIR OF VENTRAL HERNIA [facility] DR. WORRELL 04/27/17 REVISE KNEE JOINT REPLACEMENT Right 03/10/2023 TOTAL KNEE REVISION FEMUR AND TIBIA performed by Cholo Shah MD [place] [facility] [place]OTAL ABD HYSTERECTOMY W/WO REMOVAL OF TUBE(S) N/A 09/04/2020 TOTAL ABDOMINAL HYSTERECTOMY WITH OR WITHOUT TUBES AND OVARIES performed by Harjeet Li MD [place] [facility] Review of patient's allergies indicates: Allergen Reactions [...] Capsule by mouth in the morning. Nystatin 795304 UNIT/GM External Powder (Nystop) Apply topically to [...] Stability Do you currently live in a nursing home or have no steady place to [...] on chronic diastolic CHF (congestive heart failure) ([facility]) 03/21/2024 Adding I50.33-Acute on chronic diastolic CHF (congestive heart failure) ([facility]) Dx to History Anemia Anemia in other chronic diseases classified elsewhere Anxiety Cancer ([facility]) ovarian Class 2 obesity in adult 04/23/2010 Per Obesity Protocol, #19 ICD-10 update of inactive term MORE SPECIFIED CODE LISTED ON PL Clostridium difficile infection Depressive disorder, not elsewhere classified Dysmenorrhea Esophageal reflux Hereditary hemolytic anemia, unspecified ([facility]) HTN, goal below 140/90 Hypertension with congestive heart failure and renal failure ([facility]) 04/14/2023 Hypertensive kidney disease with stage 3a chronic kidney disease ([facility]) 09/17/2020 Per CKD protocol Hyponatremia 03/09/2023 Kidney disease, chronic, stage III (GFR 30-59 ml/min) ([facility]) Kidney stone Lumbar stenosis Nephrolithiasis 12/29/2016 Nocturnal hypoxia 09/01/2019 OA (osteoarthritis) Obesity, morbid (more than 100 lbs over ideal weight or BMI > 40) ([facility]) 04/23/2010 Per Obesity Protocol, #19 ICD-10 update of inactive term Open wound of foot, right, subsequent encounter BERRY (obstructive sleep apnea) Ovarian cancer on left ([facility]) History - s/p surgery & treatment per WIRE STRIPPING MACHINE OPERATOR note on 11/18/23 Ca 125: [...] Sulcus sign: negative Lift-off test: negative Apprehension:negative [place]'s test: negative Load and shift: negative Speed's [...] testing: negative Bilateral Davon Fulton MD Orthopaedics [facility] [address] [facility] [place] [address] Orthopedic Sports Medicine Surgery 07/04/2024 11:08 AM This chart was completed in part utilizing [employer] Speech Voice Recognition Software. Grammatical errors, random [...] PM EDT Office Visit Hematology/Oncology [facility] [place] [address] [place] [phone] Robert Marion MD [address] [place] [address] 08/29/2024 11:00 AM EDT Office Visit Cardiology, [facility] [address] [facility] [place] [address] Shilpi Bailey PA-C [address] [place] [address] 10/07/2024 11:50 AM EST Office Visit [facility] [address] [facility], [place] [phone] Kat Hawthorne DO [address] [place] [address] Pending Results Name Type Priority Associated Diagnoses [...] Additional history exists CKD PHOS USE SMARTSET 01996 03/21/202503/09, 03/16/2023, 03/15/2023, Additional history exists Depression Screening 03/21/2025 03/21/2024 Albumin/Creatinine Ratio 03/22/2025 024, 09/04/2021, 01/27/2019, Additional history exists Diabetic Foot Exam 04/27/2025 04/27/2024 O2 ASSESSMENT COMPLETED IN PAST YEAR FOR COPD 06/13/2025 06/13/2024 CKD HGB USE SMARTSET 27268 06/20/202506/20, 06/20/2024, 06/06/2024, Additional history exists Lipid [...] this encounter Medical Devices Implanted Type Area Beater Engineer Device Identifier Shelf Expiration Date Model / Serial / Lot Cement Bone Simplex Hv & G - [id number] Implanted:Qty: 2 on 01/05/2023 by Harley Nguyen, DO at OR [facility] Left: Knee ROSALIA : ORTHOPAEDICS 06/08/2024 6195-1-010 / / [id number] Component Femoral Size 5 - [id number] Implanted:Qty: 1 on 01/05/2023 by Harley Nguyen DO at OR [facility] Left: Knee [employer]IA : ORTHOPAEDICS 08/09/2026 5510-F-501 / / [id number] Knee Tria Syetric X3 10x36 - [id number] Implanted:Qty: 1 on 01/05/2023 by Harley Nguyen DO at OR [facility] Left: Knee [employer] : ORTHOPAEDICS 09/24/2027 5550-G-360 -E / / [id number] Baseplate Tib 5 Knee - [id number] Implanted:Qty: 1 on 01/05/2023 by Harely Nguyen DO at OR [facility] Left: Knee [employer] : ORTHOPAEDICS 12/14/2027 5521-B-500 / / [id number] Knee X3 Ins Pos Cs Sz5 9 - [id number] Implanted:Qty: 1 on 01/05/2023 by Harley Nguyen DO at OR [facility] Left: Knee [employer]IA : ORTHOPAEDICS 11/19/2027 5531-G-509 -E / / [id number] Cement Bone Full Mix Surg Simp - [id number] Implanted:Qty: 1 on 03/03/2023 by Cholo Shah [place] [facility] [place]: Knee [employer]IA : ORTHOPAEDICS 05/08/2025 6191-1-010 / / [id number] Knee Tib Comp Poly Krh 8 Lg - [id number] Implanted:Qty: 1 on 03/03/2023 by Cholo Shah [place] [facility] [place]: Knee [employer] : ORTHOPAEDICS 07/19/2023 6485-2-308 / / [id number] Knee Hrhk Mod Rot Hng Bushing - [id number] Implanted:Qty: 1 on 03/03/2023 by Cholo Shah [place] [facility] [place]: Knee [employer] : ORTHOPAEDICS 01/09/2027 6481-2-110 / / [id number] Knee Hrhk Mod Rot Hng Bushing - [id number] Implanted:Qty: 1 on 03/03/2023 by Cholo Shha MD [place] [facility] [place]: Knee [employer]IA : ORTHOPAEDICS 11/21/2026 6481-2-110 / / [id number] Knee Stem Crv Mod Mrs 97f757 - [id number] Implanted:Qty: 1 on 03/03/2023 by Cholo Shah MD [place] [facility] [place]: Knee [employer] : ORTHOPAEDICS 10/02/2026 6485-3-715 / / [id number] Tib Mrh Cross Bear Long Xs/Xl - [id number] Implanted:Qty: 1 on 03/03/2023 by Cholo Shah MD [place] [facility] [place]: Knee [employer] : ORTHOPAEDICS 12/05/2025 6481-2-103 / / [id number] Knee Tib Bumper Rot Hng Nue - [id number] Implanted:Qty: 1 on 03/03/2023 by Cholo Shah MD [place] [facility] [place]: Knee [employer] : ORTHOPAEDICS 07/15/2027 6481-2-130 / / [id number] Distal Femoral Component Implanted:Qty: 1 on 03/03/2023 by Cholo Shah [place] [facility] [place]: Knee [employer]IA : ORTHOPAEDICS 08/23/2023 6495-2-040 / / [id number] Knee Axle Hrhk Rot Mod Hng - [id number] Implanted:Qty: 1 on 03/03/2023 by Cholo Shah [place] [facility] [place]: Knee [employer]IA : ORTHOPAEDICS 06/30/2027 6481-2-120 / / [id number] Restrictors Med Cmnt M445-2756 - [id number] Implanted:Qty: 1 on 03/03/2023 by Cholo Shah MD [place] [facility] [place]: Knee [employer] : ORTHOPAEDICS 11/18/2027 G468-1128 / / Cement Bone Full Mix Surg Simp - [id number] Implanted:Qty: 1 on 03/03/2023 by Cholo Shah MD [place] [facility] [place]: Knee [employer] : ORTHOPAEDICS 07/09/2025 6191-1-010 / / [id number] Cement Bone Full Mix Surg Simp - [id number] Implanted:Qty: 1 on 03/03/2023 by Cholo Shah MD [place] [facility] [place]: Knee [employer] : ORTHOPAEDICS 06/08/2025 6191-1-010 / / [id number] Cement Bone Full Mix Surg Simp - [id number] Implanted:Qty: 1 on 03/03/2023 by Cholo Shah MD [place] [facility] [place]: Knee [employer]IA : ORTHOPAEDICS 05/08/2025 6191-1-010 / / [id number] Knee Fem Gmrs Dis Std R - [id number] Implanted:Qty: 1 on 03/10/2023 by Cholo Shah MD [place] [facility] [place]: Knee [employer]IA : ORTHOPAEDICS 10/21/2027 6495-2-040 / / [id number] Knee Hrhk Mod Rot Hng Bushing - [id number] Implanted:Qty: 1 on 03/10/2023 by Cholo Shah MD [place] [facility] [place]: Knee [employer]IA : ORTHOPAEDICS 01/29/2027 6481-2-110 / / [id number] Knee Axle Hrhk Rot Mod Hng - [id number] Implanted:Qty: 1 on 03/10/2023 by Cholo Shah MD [place] [facility] [place]: Knee [employer]IA : ORTHOPAEDICS 09/15/2027 6481-2-120 / / [id number] Tib Mrh Cross Bear Long Xs/Xl - [id number] Implanted:Qty: 1 on 03/10/2023 by Cholo Shah MD [place] [facility] [place]: Knee [employer]IA : ORTHOPAEDICS 09/30/2027 6481-2-103 / / [id number] Knee Hrhk Mod Rot Hng Bushing - [id number] Implanted:Qty: 1 on 03/10/2023 by Cholo Shah MD [place] [facility] [place]: Knee ROS[employer]IA : ORTHOPAEDICS 04/24/2027 6481-2-110 / / [id number] Knee Tib Bumper Rot Hng Nue - [id number] Implanted:Qty: 1 on 03/10/2023 by Cholo Shah MD [place] [facility] [place]: Knee [employer]IA : ORTHOPAEDICS 10/15/2027 6481-2-130 / / [id number] documented as of this encounter Visit Diagnoses Diagnosis Musculoskeletal pain of right upper extremity- Primary Nontraumatic complete tear of right rotator cuff documented in this encounter Advance Directives Documents on File Type Date Recorded Patient Hand I Thermal Cutter Expl anation Advance Directives and Living [...] were consensually agreed upon. Care Teams Senior Clinical Sas Programmer Relationship Specialty Start Date End Date Kat Hawthorne DO [address] [place] [address] PCP - General Family Medicine 08/20/22 documented as of this encounter
--- OUTSIDE RECORDS SUMMARY | 2024-07-24 20:37 | External Medical Summary ---
Author Name Unknown Address Unknown Organization K01:[facility] [place] [address] [facility] [place] [address] Laboratory Report Ordering Provider Test Date Status BOBBY LEMON 06/20/2024 10:03:53 Final Observation Date Value Abnormality Reference (Units ) Status SYNC LEUKOCYTES IN BLOOD BY AUTOMATED COUNT 06/20/2024 10:03:53 8.46 4.00-10.80 (K/uL) Final Neutrophils/100 leukocytes in Blood by Manual count 06/20/2024 10:03:53 82.0 Above high normal 40.0-75.0 (%) Final Lymphocytes/100 leukocytes in Blood by Manual count 06/20/2024 10:03:53 11.0 Below low normal 18.0-42.0 (%) Final Monocytes/100 leukocytes in Blood by Manual count 06/20/2024 10:03:53 5.0 1.0-11.0 (%) Final Metamyelocytes/100 leukocytes in Blood by Manual count 06/20/2024 10:03:53 1.0 Above high normal <=0.0 (%) Final Myelocytes/100 leukocytes in Blood by Manual count 06/20/2024 10:03:53 1.0 Above high normal <=0.0 (%) Final Neutrophils [#/volume] in Blood by Manual count 06/20/2024 10:03:53 6.94 1.80-7.70 (K/uL) Final Lymphocytes [#/volume] in Blood by Manual count 06/20/2024 10:03:53 0.93 Below low normal 1.00-4.80 (K/uL) Final Monocytes [#/volume] in Blood by Manual count 06/20/2024 10:03:53 0.42 0.00-1.10 (K/uL) Final Metamyelocytes [#/volume] in Blood by Manual count 06/20/2024 10:03:53 0.08 Above high normal <=0.00 (K/uL) Final Myelocytes [#/volume] in Blood by Manual count 06/20/2024 10:03:53 0.08 Above high normal <=0.00 (K/uL) Final Performing Location [facility] [place] [address] [facility] [address]
--- OUTSIDE RECORDS SUMMARY | 2024-07-24 20:37 | External Medical Summary ---
Author Name Unknown Address Unknown Organization K0G:[facility] - [address] [place] [address] Laboratory Report Ordering Provider Test Date Status ANGEL GUERRERO 07/04/2024 11:20:00 Final Observation Date Value Abnormality Reference (Units ) Status BUN 07/04/2024 11:20:00 24 Above high normal 6-20 (mg/dL) Final Creatinine 07/04/2024 11:20:00 1.0 0.5-1.0 (mg/dL) Final Glomerular filtration rate/1.73 sq M.predicted [Volume Rate/Area] in Serum, Plasma or Blood by Creatinine-based formula (CKD-EPI) 07/04/2024 11:20:00 64 >=60 (mL/min) Final eGFR is calculated based on the CKD-EPI 2020 equation. Sodium 07/04/2024 11:20:00 141 135-146 (m mol/L) Final Potassium 07/04/2024 11:20:00 4.2 3.5-5.1 (m mol/L) Final Cl 07/04/2024 11:20:00 97 Below low normal 98- 107 (mmol/L) Final CO2 07/04/2024 11:20:00 37 Above high normal 22 -32 (mmol/L) Final Anion gap 07/04/2024 11:20:00 7 7-15 (mmol /L) Final Glucose 07/04/2024 11:20:00 157 Above high normal 70 -120 (mg/dL) Final Albumin 07/04/2024 11:20:00 4.1 3.8-5.0 (g /dL) Final AST (Aspartate aminotransferase) 07/04/2024 11:20:00 40 Above high normal 10-35 (U/L) Final Alk Phos 07/04/2024 11:20:00 132 Above high normal 35 -130 (U/L) Final Bilirubin, Total 07/04/2024 11:20:00 0.5 <=1 .2 (mg/dL) Final Calcium 07/04/2024 11:20:00 10.0 8.4-10.2 ( mg/dL) Final Protein 07/04/2024 11:20:00 7.3 6.0-8.3 (g /dL) Final ALT (Alanine aminotransferase) 07/04/2024 11:20:00 31 10-35 (U/L) Carlos A real Performing Location LAB[facility]ORY [place] [address] - [address] [facility] [place] [address]
--- OUTSIDE RECORDS SUMMARY | 2024-07-24 20:37 | External Medical Summary ---
Author Name Unknown Address Unknown Organization K01[place] [place] [facility] [address] [facility] [address] Laboratory Report Ordering Provider Test Date Status BOBBY LEMON 06/20/2024 10:03:53 Final Observation Date Value Abnormality Reference (Units ) Status WBC, Total 06/20/2024 10:03:53 8.46 4.00-10.8 0 (K/uL) Final RBC 06/20/2024 10:03:53 3.43 3.85-5.15 (M/uL) Final Hemoglobin 06/20/2024 10:03:53 9.7 Below low normal 12 .0-15.3 (g/dL) Final HCT 06/20/2024 10:03:53 32.7 Below low normal 36. 0-45.2 (%) Final MCV 06/20/2024 10:03:53 95.3 81.5-97.5 (fL) Final MCH 06/20/2024 10:03:53 28.3 27.0-34.0 (pg) Final MCHC 06/20/2024 10:03:53 29.7 32.0-36.0 (g/dL) Final RDW 06/20/2024 10:03:53 21.8 11.5-15.5 (%) Final Platelets 06/20/2024 10:03:53 126 Below low normal 140 -400 (K/uL) Final MPV 06/20/2024 10:03:53 Final No result - abnormal platele t distribution. Nucleated erythrocytes/100 leukocytes [Ratio] in Blood by Automated count 06/20/2024 10:03:53 1 Above high normal <=0 (/100 WBCs) Final Performing Location [facility] [place] [address] [facility] [address]
--- OUTSIDE RECORDS SUMMARY | 2024-07-24 20:37 | External Medical Summary ---
Author Name Unknown Address Unknown Organization K0G:[facility] - [address] [place] [address] Laboratory Report Ordering Provider Test Date Status ANGEL GUERRERO 07/04/2024 11:20:00 Final Observation Date Value Abnormality Reference (Units ) Status SYNC LEUKOCYTES IN BLOOD BY AUTOMATED COUNT 07/04/2024 11:20:00 10.79 4.00-10.80 (K/uL) Final Neutrophils/100 leukocytes in Blood by Manual count 07/04/2024 11:20:00 89.0 Above high normal 40.0-75.0 (%) Final Lymphocytes/100 leukocytes in Blood by Manual count 07/04/2024 11:20:00 7.0 Below low normal 18.0-42.0 (%) Final Monocytes/100 leukocytes in Blood by Manual count 07/04/2024 11:20:00 2.0 1.0-11.0 (%) Final Metamyelocytes/100 leukocytes in Blood by Manual count 07/04/2024 11:20:00 2.0 Above high normal <=0.0 (%) Final Neutrophils [#/volume] in Blood by Manual count 07/04/2024 11:20:00 9.60 Above high normal 1.80-7.70 (K/uL) Final Lymphocytes [#/volume] in Blood by Manual count 07/04/2024 11:20:00 0.76 Below low normal 1.00-4.80 (K/uL) Final Monocytes [#/volume] in Blood by Manual count 07/04/2024 11:20:00 0.22 0.00-1.10 (K/uL) Final Metamyelocytes [#/volume] in Blood by Manual count 07/04/2024 11:20:00 0.22 Above high normal <=0.00 (K/uL) Final Nucleated erythrocytes/100 leukocytes [Ratio] in Blood by Automated count 07/04/2024 11:20:00 Final Acanthocytes [Presence] in Blood by Light microscopy 07/04/2024 11:20:00 Moderate Abnormal None Seen Final Schistocytes 07/04/2024 11:20:00 Few Abnormal None Seen Final Performing Location LABORATORY [place] [address] - [address] [facility] [address]
--- OUTSIDE RECORDS SUMMARY | 2024-07-24 20:37 | External Medical Summary | Summary of Care ---
Author Name Unknown Organization [facility] Address [address] [place] [address] Phone [phone] Care Team Providers Care Custom Stock Maker Name Role Phone Cassidypriscilla Katdee dee Marsh DO Primary Care Provider [phone] Encounter Details Date Type Department Care Team (Late st Contact Info) Description 06/26/2024 Result Scan Unspecified Department Gemini Espinoza DO [address] [place], [place] [phone] <No scans attached> Allergies Active Allergy Reactions [...] as of this encounter (statuses as of 06/26/2024) Medications Medication Sig Dispensed Refills Start Date [...] by mouth in the morning. Active Nystatin 292517 UNIT/GM External Powder (Nystop) Apply topically to [...] as of this encounter (statuses as of 06/26/2024) Active Problems Problem Noted Date Diagnosed Date [...] fall No pain, no diarrhea currently Old CO (myocardial infarction) 04/14/2023 Hyperlipidemia 04/14/2023 History of [...] as of this encounter (statuses as of 06/26/2024) Resolved Problems Problem Noted Date Diagnosed Date [...] History - s/p surgery & treatment per CLIMATOLOGY PROFESSOR note on 11/18/23 Ca 125: 68.8 [...] as of this encounter (statuses as of 06/26/2024) Immunizations Name Administration Dates Next Due COVID-19 [...] 07/04/2024 10:00 AM EDT Office Visit Orthopaedics [facility] [address] [place] [address] Davon Fulton MD [address] [place] [phone] 08/22/2024 2:15 PM EDT Office Visit Hematology/Oncology [facility] [place] [address] [place] [address] Robert Marion MD [address] [place] [address] 08/29/2024 11:00 AM EDT Office Visit Cardiology, [facility] [address] [place] [address] Shilpi Bailey PA-C [address] [place] [address] 10/07/2024 11:50 AM EST Office Visit [facility] [address] [facility], [place] [phone] Kat Hawthorne, [address] [facility], [place] [address] Scheduled Procedures Name Priority Associated Diagnoses Date/Ti [...] Additional history exists CKD PHOS USE SMARTSET 97248 03/21/202503/09, 03/16/2023, 03/15/2023, Additional history exists Depression Screening 03/21/2025 03/21/2024 Albumin/Creatinine Ratio 03/22/2025 024, 09/04/2021, 01/27/2019, Additional history exists Diabetic Foot Exam 04/27/2025 04/27/2024 O2 ASSESSMENT COMPLETED IN PAST YEAR FOR COPD 06/13/2025 06/13/2024 CKD HGB USE SMARTSET 04154 06/20/202506/20, 06/20/2024, 06/06/2024, Additional history exists Lipid [...] this encounter Medical Devices Implanted Type Area Clinic Physician Director Device Identifier Shelf Expiration Date Model / Serial / Lot Cement Bone Simplex Hv & G - [id number] Implanted:Qty: 2 on 01/05/2023 by Harley Nguyen, DO at OR [facility] Left: Knee ROSALIA : ORTHOPAEDICS 06/08/2024 6195-1-010 / / [id number] Femoral Size 5 - [id number] Implanted:Qty: 1 on 01/05/2023 by Harley Nguyen, at OR [facility] Left: Knee ROSALIA : ORTHOPAEDICS 08/09/2026 5510-F-501 / / [id number] Knee Tria Syetric X3 10x36 - [id number] Implanted:Qty: 1 on 01/05/2023 by Harley Nguyen DO at OR [facility] Left: Knee ROSALIA : ORTHOPAEDICS 09/24/2027 5550-G-360 -E / / [id number] Baseplate Tib 5 Knee - [id number] Implanted:Qty: 1 on 01/05/2023 by Harley Nguyen DO at OR [facility] Left: Knee ROSALIA : ORTHOPAEDICS 12/14/2027 5521-B-500 / / [id number] Knee X3 Ins Pos Cs Sz5 9 - [id number] Implanted:Qty: 1 on 01/05/2023 by Harley Nguyen DO at OR [facility] Left: Knee ROSALIA : ORTHOPAEDICS 11/19/2027 5531-G-509 -E / / [id number] Cement Bone Full Mix Surg Simp - [id number] Implanted:Qty: 1 on 03/03/2023 by Cholo Shah MD at [place] [facility] [place] Right: Knee ROSALIA : ORTHOPAEDICS 05/08/2025 6191-1-010 / / [id number] Knee Tib Comp Poly Krh 8 Lg - [id number] Implanted:Qty: 1 on 03/03/2023 by Cholo Shah MD at [place] [facility] [place] Right: Knee ROSALIA : ORTHOPAEDICS 07/19/2023 6485-2-308 / / [id number] Knee Hrhk Mod Rot Hng Bushing - [id number] Implanted:Qty: 1 on 03/03/2023 by Cholo Shah MD at [place] [facility] [place] Right: Knee ROSALIA : ORTHOPAEDICS 01/09/2027 6481-2-110 / / [id number] Knee Hrhk Mod Rot Hng Bushing - [id number] Implanted:Qty: 1 on 03/03/2023 by Cholo Shah MD at [place] [facility] [place] Right: Knee ROSALIA : ORTHOPAEDICS 11/21/2026 6481-2-110 / / [id number] Knee Stem Crv Mod Mrs 72k360 - [id number] Implanted:Qty: 1 on 03/03/2023 by Cholo Shah MD at [place] [facility] [place] Right: Knee ROSALIA : ORTHOPAEDICS 10/02/2026 6485-3-715 / / [id number] Tib Mrh Cross Bear Long Xs/Xl - [id number] Implanted:Qty: 1 on 03/03/2023 by Cholo Shah MD at [place] [facility] [place] Right: Knee ROSALIA : ORTHOPAEDICS 12/05/2025 6481-2-103 / / [id number] Knee Tib Bumper Rot Hng Nue - [id number] Implanted:Qty: 1 on 03/03/2023 by Cholo Shah MD at [place] [facility] [place] Right: Knee ROSALIA : ORTHOPAEDICS 07/15/2027 6481-2-130 / / [id number] Distal Femoral Component Implanted:Qty: 1 on 03/03/2023 by Cholo Shah MD at [place] [facility] [place] Right: Knee ROSALIA : ORTHOPAEDICS 08/23/2023 6495-2-040 / / [id number] Knee Axle Hrhk Rot Mod Hng - [id number] Implanted:Qty: 1 on 03/03/2023 by Cholo Shah MD at [place] [facility] [place] Right: Knee ROSALIA : ORTHOPAEDICS 06/30/2027 6481-2-120 / / [id number] Restrictors Med Cmnt V075-9994 - [id number] Implanted:Qty: 1 on 03/03/2023 by Cholo Shah MD at [place] [facility] [place] Right: Knee ROSALIA : ORTHOPAEDICS 11/18/2027 I795-8954 / / Cement Bone Full Mix Surg Simp - [id number] Implanted:Qty: 1 on 03/03/2023 by Cholo Shah MD at [place] [facility] [place] Right: Knee ROSALIA : ORTHOPAEDICS 07/09/2025 6191-1-010 / / [id number] Cement Bone Full Mix Surg Simp - [id number] Implanted:Qty: 1 on 03/03/2023 by Cholo Shah MD at [place] [facility] [place] Right: Knee ROSALIA : ORTHOPAEDICS 06/08/2025 6191-1-010 / / [id number] Cement Bone Full Mix Surg Simp - [id number] Implanted:Qty: 1 on 03/03/2023 by Cholo Shah MD at [place] [facility] [place] Right: Knee ROSALIA : ORTHOPAEDICS 05/08/2025 6191-1-010 / / [id number] Knee Fem Gmrs Dis Std R - [id number] Implanted:Qty: 1 on 03/10/2023 by Cholo Shah MD at [place] [facility] [place] Right: Knee ROSALIA : ORTHOPAEDICS 10/21/2027 6495-2-040 / / [id number] Knee Hrhk Mod Rot Hng Bushing - [id number] Implanted:Qty: 1 on 03/10/2023 by Cholo Shah MD at [place] [facility] [place] Right: Knee ROSALIA : ORTHOPAEDICS 01/29/2027 6481-2-110 / / [id number] Knee Axle Hrhk Rot Mod Hng - [id number] Implanted:Qty: 1 on 03/10/2023 by Cholo Shah MD at [place] [facility] [place] Right: Knee ROSALIA : ORTHOPAEDICS 09/15/2027 6481-2-120 / / [id number] Tib Mrh Cross Bear Long Xs/Xl - [id number] Implanted:Qty: 1 on 03/10/2023 by Cholo Shah MD at [place] [facility] [place] Right: Knee ROSALIA : ORTHOPAEDICS 09/30/2027 6481-2-103 / / [id number] Knee Hrhk Mod Rot Hng Bushing - [id number] Implanted:Qty: 1 on 03/10/2023 by Cholo Shah MD at [place] [facility] [place] Right: Knee ROSALIA : ORTHOPAEDICS 04/24/2027 6481-2-110 / / [id number] Knee Tib Bumper Rot Hng Nue - [id number] Implanted:Qty: 1 on 03/10/2023 by Cholo Shah MD at [place] [facility] [place] Right: Knee ROSALIA : ORTHOPAEDICS 10/15/2027 6481-2-130 / / [id number] documented as of this encounter Procedures Procedure Name Priority Date/Time Associated Diagnosis Comments CARDIOLOGY SCANNED RESULT 06/26/2024 documented in this encounter Results * CARDIOLOGY SCANNED RESULT (06/26/2024) 06/26/2024 Gemini Espinoza DO OTHER documented in this encounter Advance Directives Documents on File Type Date Recorded 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 Care Teams Custom Stock Maker Relationship Specialty Start Date End Date Kat Hawthorne DO [address] [place] [address] PCP - General Family Medicine 08/20/22 documented as of this encounter
--- OUTSIDE RECORDS SUMMARY | 2024-07-24 20:37 | External Medical Summary | Summary of Care ---
Author Name Unknown Organization [facility] Address [address] [place] [address] Phone [phone] Care Team Providers Care Ditcher Operator Name Role Phone MichaelKat king Salma ALARCON Primary Care Provider Encounter Details Date Type Department Care Team (Late st Contact Info) Description 07/04/2024 Orders Only Hematology/Oncology Treatment, [place] [address] [place] [address] Robert Marion MD [address] [place] [address] History of recent blood transfusion*; Acquired hemolytic anemia (HCC) Allergies Active Allergy [...] Active oxygen IN GASIndications:ILD (interstitial lung disease) ([facility]),Chronic respiratory failure with hypoxia (HCC) Use 2 LPM with exertion and 3 LPM with sleep. Needs small portable tanks, standing concentrator DME: [facility] 1 Each 07/02/2022 Active Proventil HFA 108 (90 Base) MCG/ACT Inhalation Aerosol SolutionIndications: ILD (interstitial lung disease) ([facility]) Inhale by mouth 2 Puffs [...] by mouth in the morning. Active Nystatin 466706 UNIT/GM External Powder (Nystop) Apply topically to [...] & Plan: S/P wound vac placement at [facility] On doxycycline 100 mg BID [...] History - s/p surgery & treatment per INTERNAL COMMUNICATIONS SPECIALIST note on 11/18/23 Ca 125: 68.8 [...] mRNA, LNP-s, No Pre serve, 2-Dose Series ([employer]) 08/23/2021,01/26/2021,01/05/2021 Pneumococcal Conjugate Vacc, 13 Valent (Prevnar) [...] 2:15 PM EDT Office Visit Hematology/Oncology [facility] [address] [place] [phone] Robert Marion MD [address] [place] [address] 08/29/2024 11:00 AM EDT Office Visit Cardiology, [facility] [address] [place] [address] Shilpi Bailey PA-C [address] [place] [address] 10/07/2024 11:50 AM EST Office Visit Family Practice, [place] [address] [place] [address] Kat Hawthorne DO [address] [place] [address] Pending Results Name Type Priority Associated Diagnoses Date /Time CBC WITH WBC DIFFERENTIAL Lab STAT History of recent blood transfusion Acquired hemolytic anemia (HCC) 07/04/2024 11:20 AM EDT COMPREHENSIVE METABOLIC PANEL Lab STAT History of recent blood transfusion Acquired hemolytic anemia (HCC) 07/04/2024 11:20 AM EDT Scheduled Orders Name Type Priority Associated Diagnoses Orde r Schedule CBC WITH WBC DIFFERENTIAL Lab STAT History of recent blood transfusion Acquired hemolytic anemia (HCC) Every Week for 10 Occurrences starting 07/04/2024 until 07/04/2025 COMPREHENSIVE METABOLIC PANEL Lab STAT History of recent blood transfusion Acquired hemolytic anemia (HCC) Every Week for 10 Occurrences starting 07/04/2024 until 07/04/2025 Scheduled Procedures Name Priority Associated Diagnoses Date/Ti [...] Additional history exists CKD PHOS USE SMARTSET 68380 03/21/202503/09, 03/16/2023, 03/15/2023, Additional history exists Depression Screening 03/21/2025 03/21/2024 Albumin/Creatinine Ratio 03/22/2025 024, 09/04/2021, 01/27/2019, Additional history exists Diabetic Foot Exam 04/27/2025 04/27/2024 O2 ASSESSMENT COMPLETED IN PAST YEAR FOR COPD 06/13/2025 06/13/2024 CKD HGB USE SMARTSET 80354 06/20/202506/20, 06/20/2024, 06/06/2024, Additional history exists Lipid [...] this encounter Medical Devices Implanted Type Area Water Conservation Specialist Device Identifier Shelf Expiration Date Model / Serial / Lot Cement Bone Simplex Hv & G - [id number] Implanted:Qty: 2 on 01/05/2023 by Harley Nguyen, at OR [facility] Left: Knee ROSALIA : ORTHOPAEDICS 06/08/2024 6195-1-010 / / [id number] Component Femoral Size 5 - [id number] Implanted:Qty: 1 on 01/05/2023 by Harley Nguyen DO at OR [facility] Left: Knee ROSALIA : ORTHOPAEDICS 08/09/2026 5510-F-501 / / [id number] Knee Tria Syetric X3 10x36 - [id number] Implanted:Qty: 1 on 01/05/2023 by Harley Nguyen DO at OR [facility] Left: Knee ROSALIA : ORTHOPAEDICS 09/24/2027 5550-G-360 -E / / [id number] Baseplate Tib 5 Knee - [id number] Implanted:Qty: 1 on 01/05/2023 by Harley Nguyen DO at OR [facility] Left: Knee ROSALIA : ORTHOPAEDICS 12/14/2027 5521-B-500 / / [id number] Knee X3 Ins Pos Cs Sz5 9 - [id number] Implanted:Qty: 1 on 01/05/2023 by Harley Nguyen DO at OR [facility] Left: Knee ROSALIA : ORTHOPAEDICS 11/19/2027 5531-G-509 -E / / [id number] Cement Bone Full Mix Surg Simp - [id number] Implanted:Qty: 1 on 03/03/2023 by Cholo Shah MD at OR [facility] Right: Knee ROSALIA : ORTHOPAEDICS 05/08/2025 6191-1-010 / / [id number] Knee Tib Comp Poly Krh 8 Lg - [id number] Implanted:Qty: 1 on 03/03/2023 by Cholo Shah MD at OR [facility] Right: Knee ROSALIA : ORTHOPAEDICS 07/19/2023 6485-2-308 / / [id number] Knee Hrhk Mod Rot Hng Bushing - [id number] Implanted:Qty: 1 on 03/03/2023 by Cholo Shah MD at OR [facility] Right: Knee ROSALIA : ORTHOPAEDICS 01/09/2027 6481-2-110 / / [id number] Knee Hrhk Mod Rot Hng Bushing - [id number] Implanted:Qty: 1 on 03/03/2023 by Cholo Shah MD at OR [facility] Right: Knee ROSALIA : ORTHOPAEDICS 11/21/2026 6481-2-110 / / [id number] Knee Stem Crv Mod Mrs 34o490 - [id number] Implanted:Qty: 1 on 03/03/2023 by Cholo Shah MD at OR [facility] Right: Knee ROSALIA : ORTHOPAEDICS 10/02/2026 6485-3-715 / / [id number] Tib Mrh Cross Bear Long Xs/Xl - [id number] Implanted:Qty: 1 on 03/03/2023 by Cholo Shah MD at OR [facility] Right: Knee ROSALIA : ORTHOPAEDICS 12/05/2025 6481-2-103 / / [id number] Knee Tib Bumper Rot Hng Nue - [id number] Implanted:Qty: 1 on 03/03/2023 by Cholo Shah MD at OR [facility] Right: Knee ROSALIA : ORTHOPAEDICS 07/15/2027 6481-2-130 / / [id number] Distal Femoral Component Implanted:Qty: 1 on 03/03/2023 by Cholo Shah MD at OR [facility] Right: Knee ROSAILA : ORTHOPAEDICS 08/23/2023 6495-2-040 / / [id number] Knee Axle Hrhk Rot Mod Hng - [id number] Implanted:Qty: 1 on 03/03/2023 by Cholo Shah MD at OR [facility] Right: Knee ROSALIA : ORTHOPAEDICS 06/30/2027 6481-2-120 / / [id number] Restrictors Med Cmnt G050-3935 - [id number] Implanted:Qty: 1 on 03/03/2023 by Cholo Shah MD at OR [facility] Right: Knee ROSALIA : ORTHOPAEDICS 11/18/2027 U953-7876 / / Cement Bone Full Mix Surg Simp - [id number] Implanted:Qty: 1 on 03/03/2023 by Cholo Shah MD at OR [facility] Right: Knee ROSALIA : ORTHOPAEDICS 07/09/2025 6191-1-010 / / [id number] Cement Bone Full Mix Surg Simp - [id number] Implanted:Qty: 1 on 03/03/2023 by Cholo Shah MD at OR [facility] Right: Knee ROSALIA : ORTHOPAEDICS 06/08/2025 6191-1-010 / / [id number] Cement Bone Full Mix Surg Simp - [id number] Implanted:Qty: 1 on 03/03/2023 by Cholo Shah MD at OR [facility] Right: Knee ROSALIA : ORTHOPAEDICS 05/08/2025 6191-1-010 / / [id number] Knee Fem Gmrs Dis Std R - [id number] Implanted:Qty: 1 on 03/10/2023 by Cholo Shah MD at OR [facility] Right: Knee ROSALIA : ORTHOPAEDICS 10/21/2027 6495-2-040 / / [id number] Knee Hrhk Mod Rot Hng Bushing - [id number] Implanted:Qty: 1 on 03/10/2023 by Cholo Shah MD at OR [facility] Right: Knee ROSALIA : ORTHOPAEDICS 01/29/2027 6481-2-110 / / [id number] Knee Axle Hrhk Rot Mod Hng - [id number] Implanted:Qty: 1 on 03/10/2023 by Cholo Shah MD at OR [facility] Right: Knee ROSALIA : ORTHOPAEDICS 09/15/2027 6481-2-120 / / [id number] Tib Mrh Cross Bear Long Xs/Xl - [id number] Implanted:Qty: 1 on 03/10/2023 by Cholo Shah MD at OR [facility] Right: Knee ROSALIA : ORTHOPAEDICS 09/30/2027 6481-2-103 / / [id number] Knee Hrhk Mod Rot Hng Bushing - [id number] Implanted:Qty: 1 on 03/10/2023 by Cholo Shah MD at OR [facility] Right: Knee ROSALIA : ORTHOPAEDICS 04/24/2027 6481-2-110 / / [id number] Knee Tib Bumper Rot Hng Nue - [id number] Implanted:Qty: 1 on 03/10/2023 by Cholo Shah MD at OR [facility] Right: Knee ROSALIA : ORTHOPAEDICS 10/15/2027 6481-2-130 / / [id number] documented as of this encounter Visit Diagnoses Diagnosis History of recent blood transfusion- Primary Acquired hemolytic anemia (HCC) Acquired hemolytic anemia, unspecified documented in this encounter Advance Directives Documents on File Type Date Recorded 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 Care Teams Ditcher Operator Relationship Specialty Start Date End Date Kat Hawthorne DO [address] [facility] [address] PCP - General Family Medicine 08/20/22 documented as of this encounter
--- OUTSIDE RECORDS SUMMARY | 2024-07-24 20:37 | External Medical Summary | Summary of Care ---
Author Name Unknown Organization [facility] Address [address] [place] [address] Phone [phone] Care Team Providers Care Immigration Attorney Name Role Phone Kat Hawthorne Primary Care Provider Reason for Visit * Reason Comments Joint Pain Right shoulder Encounter Details Date Type Department Care Team (Latest Contact Info) Description 07/04/2024 10:00 AM EDT Office Visit Orthopaedics [facility] [address] [place] [address] Davon Fulton MD [address] [place] [...] Active oxygen IN GASIndications:ILD (interstitial lung disease) ([facility]),Chronic respiratory failure with hypoxia (HCC) Use 2 LPM with exertion and 3 LPM with sleep. Needs small portable tanks, standing concentrator DME: [facility] 1 Each 07/02/2022 Active Proventil HFA 108 (90 Base) MCG/ACT Inhalation Aerosol SolutionIndications: ILD (interstitial lung disease) ([facility]) Inhale by mouth 2 Puffs every 4 [...] by mouth in the morning. Active Nystatin 764707 UNIT/GM External Powder (Nystop) Apply topically to [...] History - s/p surgery & treatment per MEDICAL SECRETARY TEACHER note on 11/18/23 Ca 125: 68.8 U/mL [...] no. Injections? no. Nursing Notes: Brooke Reeves, JEWELRY INSPECTOR 07/04/24 1006 Signed Right shoulder pain, wore monitor for [facility] for 3 weeks pain when reaching rquested xrays from [facility] 07/01/24. Pt is RHD. Past Surgical History: Procedure Laterality Date ARTHROPLASTY KNEE TOTAL Left 01/05/2023 ROBOTIC ARTHROPLASTY KNEE TOTAL performed by Harley Nguyen DO at OR [facility] ARTHROPLASTY KNEE TOTAL Right 03/03/2023 ARTHROPLASTY KNEE TOTAL performed by Cholo Shah MD at OR [facility] BONE DEBRIDEMENT, FIRST 20 CM2 Right 03/10/2023 DEBRIDEMENT SKIN SUBCUTANEOUS TISSUE MUSCLE AND BONE performed by Cholo Shah MD at OR [facility] COLONOSCOPY, DIAGNOSTIC (RECTUM) 09/25/2017 normal, repeat 10 yrs/[facility] CYSTOSCOPY Left 01/18/2016 stent removal EGD, FLEXIBLE, DIAGNOSTIC 09/25/2017 normal bx/[facility] EGD, FLEXIBLE, DIAGNOSTIC N/A 09/25/2022 small hiatal hernia/EGD/NH EGD, W/ENDOSCOPIC US N/A 01/20/2023 [facility], EGD/ EUS, reversed gastric bypass found , EUS - many stones found, fatty liver / no specimenscollected / ENDOSCOPY, ERCP, W/STONE REMOVAL N/A 01/20/2023 [facility], ERCP , Choledocholithiasis found & complete removal accomplished by biliary spihincterotomy, stent placed / no bx's / repeat ERCP 8 weeks follow up / EXPLORATION OF ABDOMEN N/A 09/04/2020 EXPLORATORY LAPAROTOMY performed by Harjeet Li MD at OR [facility] GASTRIC REVISION FOR OBESITY 1980 Gastric Bypass reversed same yr IMPLANTABLE ACCESS SYST PERC 10/22/2020 INFORMATION Left 04/2021 L pacemaker insertion @ [facility]. INJECT DX/THER SUBSTANCE INTERLAMINAR LUMBAR/SACRAL W IMAGE GUIDE 09/19/2021 INJECTION SPINE LUMBAR OR SACRAL performed by Camron Pathak DO at OR [facility] KNEE ARTHROSCOPY, DIAGNOSTIC 1999 Knee Arthroscopy MISCELLANEOUS ORDER ([facility] ONLY) 1979 gastric stapling REMOVAL OF KIDNEY STONE x2 REMOVAL OF TONSILS, AGE 12+ at age 10 REPAIR INITIAL INCISIONAL OR VENTRAL HERNIA; REDUCIBLE N/A 04/27/2017 REPAIR OF VENTRAL HERNIA [facility] DR. WORRELL 04/27/17 REVISE KNEE JOINT REPLACEMENT Right 03/10/2023 TOTAL KNEE REVISION FEMUR AND TIBIA performed by Cholo Shah MD at OR [facility] TOTAL ABD HYSTERECTOMY W/WO REMOVAL OF TUBE(S) N/A 09/04/2020 TOTAL ABDOMINAL HYSTERECTOMY WITH OR WITHOUT TUBES AND OVARIES performed by Harjeet Li MD at OR [facility] Review of patient's allergies indicates: Allergen Reactions [...] Capsule by mouth in the morning. Nystatin 232222 UNIT/GM External Powder (Nystop) Apply topically to [...] Stability Do you currently live in a long-term or have no steady place to sleep [...] on chronic diastolic CHF (congestive heart failure) ([facility]) 03/21/2024 Adding I50.33-Acute on chronic diastolic CHF (congestive heart failure) ([facility]) Dx to History Anemia Anemia in other chronic diseases classified elsewhere Anxiety Cancer ([facility]) ovarian Class 2 obesity in adult 04/23/2010 Per Obesity Protocol, #19 ICD-10 update of inactive term MORE SPECIFIED CODE LISTED ON PL Clostridium difficile infection Depressive disorder, not elsewhere classified Dysmenorrhea Esophageal reflux Hereditary hemolytic anemia, unspecified ([facility]) HTN, goal below 140/90 Hypertension with congestive heart failure and renal failure ([facility]) 04/14/2023 Hypertensive kidney disease with stage 3a chronic kidney disease ([facility]) 09/17/2020 Per CKD protocol Hyponatremia 03/09/2023 Kidney disease, chronic, stage III (GFR 30-59 ml/min) ([facility]) Kidney stone Lumbar stenosis Nephrolithiasis 12/29/2016 Nocturnal hypoxia 09/01/2019 OA (osteoarthritis) Obesity, morbid (more than 100 lbs over ideal weight or BMI > 40) ([facility]) 04/23/2010 Per Obesity Protocol, #19 ICD-10 update of inactive term Open wound of foot, right, subsequent encounter BERRY (obstructive sleep apnea) Ovarian cancer on left ([facility]) History - s/p surgery & treatment per MEDICAL SECRETARY TEACHER note on 11/18/23 Ca 125: 68.8 U/mL [...] Sulcus sign: negative Lift-off test: negative Apprehension:negative Harwood's test: negative Load and shift: negative Speed's [...] testing: negative Bilateral Davon Fulton MD Orthopaedics [facility] [address] [facility] [place] [address] Orthopedic Sports Medicine Surgery 07/04/2024 11:08 AM This chart was completed in part utilizing Music Messenger (MM) Speech Voice Recognition Software. Grammatical errors, random [...] weeks pain when reaching rquested xrays from [facility] 07/01/24. Pt is RHD. documented in this encounter Plan of Treatment Upcoming Encounters Date Type Department Care Team (Late st Contact Info) Description 08/22/2024 2:15 PM EDT Office Visit Hematology/Oncology [facility] [address] [place] [phone] Robert Marion MD [address] [place] [address] 08/29/2024 11:00 AM EDT Office Visit Cardiology, [facility] [address] [facility] [place] [address] Shilpi Bailey PA-C [address] [place] [address] 10/07/2024 11:50 AM EST [facility] [address] [facility], [place] [phone] Kat Hawthorne DO [address] [facility] [place] [address] Pending Results Name Type Priority Associated Diagnoses [...] Additional history exists CKD PHOS USE SMARTSET 70698 03/21/202503/09, 03/16/2023, 03/15/2023, Additional history exists Depression Screening 03/21/2025 03/21/2024 Albumin/Creatinine Ratio 03/22/2025 024, 09/04/2021, 01/27/2019, Additional history exists Diabetic Foot Exam 04/27/2025 04/27/2024 O2 ASSESSMENT COMPLETED IN PAST YEAR FOR COPD 06/13/2025 06/13/2024 CKD HGB USE SMARTSET 66516 06/20/202506/20, 06/20/2024, 06/06/2024, Additional history exists Lipid [...] this encounter Medical Devices Implanted Type Area Statistical Reporting Analyst Device Identifier Shelf Expiration Date Model / Serial / Lot Cement Bone Simplex Hv & G - [id number] Implanted:Qty: 2 on 01/05/2023 by Harley Nguyen, DO at OR [facility] Left: Knee ROSALIA : ORTHOPAEDICS 06/08/2024 6195-1-010 / / [id number] Femoral Size 5 - [id number] Implanted:Qty: 1 on 01/05/2023 by Harley Nguyen DO at OR [facility] Left: Knee ROSALIA : ORTHOPAEDICS 08/09/2026 5510-F-501 / / [id number] Knee Tria Syetric X3 10x36 - [id number] Implanted:Qty: 1 on 01/05/2023 by Harley Nguyen DO at OR [facility] Left: Knee ROSALIA : ORTHOPAEDICS 09/24/2027 5550-G-360 -E / / [id number] Baseplate Tib 5 Knee - [id number] Implanted:Qty: 1 on 01/05/2023 by Harley Nguyen DO at OR [facility] Left: Knee ROSALIA : ORTHOPAEDICS 12/14/2027 5521-B-500 / / [id number] Knee X3 Ins Pos Cs Sz5 9 - [id number] Implanted:Qty: 1 on 01/05/2023 by Harley Nguyen DO at OR [facility] Left: Knee ROSALIA : ORTHOPAEDICS 11/19/2027 5531-G-509 -E / / [id number] Cement Bone Full Mix Surg Simp - [id number] Implanted:Qty: 1 on 03/03/2023 by Cholo Shah MD at OR [facility] Right: Knee ROSALIA : ORTHOPAEDICS 05/08/2025 6191-1-010 / / [id number] Knee Tib Comp Poly Krh 8 Lg - [id number] Implanted:Qty: 1 on 03/03/2023 by Cholo Shah MD at OR [facility] Right: Knee ROSALIA : ORTHOPAEDICS 07/19/2023 6485-2-308 / / [id number] Knee Hrhk Mod Rot Hng Bushing - [id number] Implanted:Qty: 1 on 03/03/2023 by Cholo Shah MD at OR [facility] Right: Knee ROSALIA : ORTHOPAEDICS 01/09/2027 6481-2-110 / / [id number] Knee Hrhk Mod Rot Hng Bushing - [id number] Implanted:Qty: 1 on 03/03/2023 by Cholo Shah MD at OR [facility] Right: Knee ROSALIA : ORTHOPAEDICS 11/21/2026 6481-2-110 / / [id number] Knee Stem Crv Mod Mrs 01c886 - [id number] Implanted:Qty: 1 on 03/03/2023 by Cholo Shah MD at OR [facility] Right: Knee ROSALIA : ORTHOPAEDICS 10/02/2026 6485-3-715 / / [id number] Tib Mrh Cross Bear Long Xs/Xl - [id number] Implanted:Qty: 1 on 03/03/2023 by Cholo Shah MD at OR [facility] Right: Knee ROSALIA : ORTHOPAEDICS 12/05/2025 6481-2-103 / / [id number] Knee Tib Bumper Rot Hng Nue - [id number] Implanted:Qty: 1 on 03/03/2023 by Cholo Shah MD at OR [facility] Right: Knee ROSALIA : ORTHOPAEDICS 07/15/2027 6481-2-130 / / [id number] Distal Femoral Component Implanted:Qty: 1 on 03/03/2023 by Cholo Shah MD at OR [facility] Right: Knee ROSALIA : ORTHOPAEDICS 08/23/2023 6495-2-040 / / [id number] Knee Axle Hrhk Rot Mod Hng - [id number] Implanted:Qty: 1 on 03/03/2023 by Cholo Shah MD at OR [facility] Right: Knee ROSALIA : ORTHOPAEDICS 06/30/2027 6481-2-120 / / [id number] Restrictors Med Cmnt F616-3736 - [id number] Implanted:Qty: 1 on 03/03/2023 by Cholo Shah MD at OR [facility] Right: Knee ROSALIA : ORTHOPAEDICS 11/18/2027 [id number] / / Cement Bone Full Mix Surg Simp - [id number] Implanted:Qty: 1 on 03/03/2023 by Cholo Shah MD at OR [facility] Right: Knee ROSALIA : ORTHOPAEDICS 07/09/2025 6191-1-010 / / [id number] Cement Bone Full Mix Surg Simp - [id number] Implanted:Qty: 1 on 03/03/2023 by Cholo Shah MD at OR [facility] Right: Knee ROSALIA : ORTHOPAEDICS 06/08/2025 6191-1-010 / / [id number] Cement Bone Full Mix Surg Simp - [id number] Implanted:Qty: 1 on 03/03/2023 by Cholo Shah MD at OR [facility] Right: Knee ROSALIA : ORTHOPAEDICS 05/08/2025 6191-1-010 / / [id number] Knee Fem Gmrs Dis Std R - [id number] Implanted:Qty: 1 on 03/10/2023 by Cholo Shah MD at OR [facility] Right: Knee RSOALIA : ORTHOPAEDICS 10/21/2027 6495-2-040 / / [id number] Knee Hrhk Mod Rot Hng Bushing - [id number] Implanted:Qty: 1 on 03/10/2023 by Cholo Shah MD at OR [facility] Right: Knee ROSALIA : ORTHOPAEDICS 01/29/2027 6481-2-110 / / [id number] Knee Axle Hrhk Rot Mod Hng - [id number] Implanted:Qty: 1 on 03/10/2023 by Cholo Shah MD at OR [facility] Right: Knee ROSALIA : ORTHOPAEDICS 09/15/2027 6481-2-120 / / [id number] Tib Mrh Cross Bear Long Xs/Xl - [id number] Implanted:Qty: 1 on 03/10/2023 by Cholo Shah MD at OR [facility] Right: Knee ROSALIA : ORTHOPAEDICS 09/30/2027 6481-2-103 / / [id number] Knee Hrhk Mod Rot Hng Bushing - [id number] Implanted:Qty: 1 on 03/10/2023 by Cholo Shah MD at OR [facility] Right: Knee ROSALIA : ORTHOPAEDICS 04/24/2027 6481-2-110 / / [id number] Knee Tib Bumper Rot Hng Nue - [id number] Implanted:Qty: 1 on 03/10/2023 by Cholo Shah MD at OR [facility] Right: Knee ROSALIA : ORTHOPAEDICS 10/15/2027 6481-2-130 / / [id number] documented as of this encounter Visit Diagnoses Diagnosis Musculoskeletal pain of right upper extremity- Primary Nontraumatic complete tear of right rotator cuff documented in this encounter Advance Directives Documents on File Type Date Recorded 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 Care Teams Immigration Attorney Relationship Specialty Start Date End Date Kat Hawthorne DO [address] [place] [address] PCP - General Family Medicine 08/20/22 documented as of this encounter
--- OUTSIDE RECORDS SUMMARY | 2024-07-24 20:38 | External Medical Summary | Summary of Care ---
Author Name Unknown Organization [facility] Address [address] [place] [address] Phone [phone] Care Team Providers Care Printing Specialist Name Role Phone Antonia Hawthorne DO Primary Care Provider Reason for Visit * Reason Onset Date Comments Medication Refill 06/06/2024 Encounter Details Date Type Department Care Team (Late st Contact Info) Description 06/06/2024 Refill [facility] [address] [place] [address] Antonia Hawthorne DO [address] [place] [address] GENERAL OSTEOARTHROSIS Allergies Active Allergy [...] as of this encounter (statuses as of 06/06/2024) Medications Medication Sig Dispensed Refills Start Date [...] by mouth in the morning. Active Nystatin 052363 UNIT/GM External Powder (Nystop) Apply topically to [...] the morning. 90 Tablet 3 4 Active LORazepam 0.5 MG Oral Tablet (Ativan)Indications :BILLY (generalized anxiety disorder) Take 1 Tablet by mouth every 8 hours as needed for Anxiety. 60 Tablet 4 Active amLODIPine Besylate 5 MG Oral [...] for muscle spasm 60 Tablet 2 4 06/06/20 24 Discontinu ed(Refill) documented as of this encounter (statuses as of 06/06/2024) Active Problems Problem Noted Date Diagnosed Date [...] as of this encounter (statuses as of 06/06/2024) Resolved Problems Problem Noted Date Diagnosed Date [...] History - s/p surgery & treatment per AERONAUTICAL ENGINEERING TECHNOLOGIST note on 11/18/23 Ca 125: 68.8 U/mL [...] as of this encounter (statuses as of 06/06/2024) Immunizations Name Administration Dates Next Due COVID-19 mRNA, LNP-s, No Pre serve, 2-Dose Series (Tangible Cryptography) 08/23/2021,01/26/2021,01/05/2021 Pneumococcal Conjugate Vacc, 13 Valent (Prevnar) [...] Telephone Encounter - Antonia Hawthorne DO - 06/06/2024 2:53 PM EDTSigned Prescriptions: Disp Refills Cyclobenzaprine HCl 5 MG Oral Tablet (Flex*60 Tab*2 Sig: Take 1 tablet by mouth twice daily as needed for muscle spasm Authorizing Provider: ANTONIA HAWTHORNE * Telephone Encounter - Reyna Messina, headliner installer - 06/06/2024 9:33 AM EDT Did you pend patient's preferred pharmacy and medication before forwarding?yes Pharmacy: [facility] [id number] Pending Prescriptions: Disp Refills Cyclobenzaprine HCl 5 MG Oral Tablet (Fle*60 Tab*2 Sig: Take 1 tablet by mouth twice daily as needed for muscle spasm Last Visit: 04/27/2024 (in office), 12/04/2020 (telemedicine) Next Visit: 10/07/2024 If no future appointments scheduled, and last appointment is greater than a year ago, please schedule patient for a follow-up appointment Last date the medication was ordered: 01/29/2024 Is this request for a controlled substance?No [...] Care Team (Late st Contact Info) Description 06/27/2024 4:00 PM EDT Home Visit [facility] at [facility] [address] [address] July Diaz RN [address] [place] [address] 08/22/2024 2:15 PM EDT Office Visit Hematology/Oncology [facility] [address] [facility] [place] [phone] Robert Marion MD [address] [facility] [address] 08/29/2024 11:00 AM EDT Office Visit Cardiology, [facility] [address] [address] Shilpi Bailey, PACastillo [address] [address] 10/07/2024 11:50 AM EST [address] [address] Antonia Hawthorne, DO [address], [place] [phone] Scheduled Procedures Name Priority Associated Diagnoses Date/Ti [...] 2023 08/23/2021, 08/02/2021, 01/26/2021, Additional history exists *COPD SEVERITY VERIFIED BY PFT 05/22/2024 *CXR OR CT FOR COPD EVER 05/22/2024 Influenza Vaccine (FLU shot) (#1) 2024 07/16/2023, 2022, 08/16/2021, Additional history exists HbA1c 09/21/2024 03/21/2024, 02/0 07/2023, 05/27/2018, Additional history exists GFR 11/01/2024 05/02/2024, 03/09, 02/15/2024, Additional history exists Mammogram 12/09/2024 12/09/2023, 11/11, 04/30/2022, Additional history exists Diabetic Eye Exam 03/10/2025 03/10/2024, , 01/30/2023, Additional history exists CKD PHOS USE SMARTSET 99207 03/21/202503/09, 03/16/2023, 03/15/2023, Additional history exists Depression Screening 03/21/2025 03/21/2024 Albumin/Creatinine Ratio 03/22/20252 024, 09/04/2021, 01/27/2019, Additional history exists Diabetic Foot Exam 04/27/2025 04/27/2024 O2 ASSESSMENT COMPLETED IN PAST YEAR FOR COPD 05/25/2025 05/25/2024 CKD HGB USE SMARTSET 96092 06/06/202506/06, 06/06/2024, 05/24/2024, Additional history exists Lipid Panel 09/03/2027 09/03/2022, 09/09, 08/02/2019, Additional history exists Colonoscopy 07/27/2030 07/27/2020, 09/25/2017 Colorectal Cancer Screening 07/27/2030 DTaP,Tdap,and Td Vaccines (2 - Td or Tdap) 09/02/2031 09/02/2021 Pneumococcal Vaccine: 65+ Years Completed 05/17/2020, 09/03/2018 Zoster Vaccines Completed 06/03/2021, 03/19/2021 *BASELINE EKG FOR HTN Completed 02/28/2023 , 04/17/2022, 09/26/2021, Additional history exists HPV (Gardasil) Vaccine Aged Out No lo nger eligible based on patient's age to complete this topic MENINGOCOCCAL (MENACTRA/MENVEO) Aged Out No longer eligible based on patient's age to complete this topic documented as of this encounter Medical Devices Implanted Type Area Transportation Maintenance Worker Device Identifier Shelf Expiration Date Model / Serial / Lot Cement Bone Simplex Hv & G - [id number] Implanted:Qty: 2 on 01/05/2023 by Harley Nguyen DO at OR [facility] Left: Knee ROSALIA : ORTHOPAEDICS 06/08/2024 6195-1-010 / / [id number] Component Femoral Size 5 - [id number] Implanted:Qty: 1 on 01/05/2023 by Harley Nguyen DO at OR [facility] Left: Knee ROSALIA : ORTHOPAEDICS 08/09/2026 5510-F-501 / / [id number] Knee Tria Syetric X3 10x36 - [id number] Implanted:Qty: 1 on 01/05/2023 by Harley Nguyen DO at OR [facility] Left: Knee ROSALIA : ORTHOPAEDICS 09/24/2027 5550-G-360 -E / / [id number] Baseplate Tib 5 Knee - [id number] Implanted:Qty: 1 on 01/05/2023 by Harley Nguyen DO at OR [facility] Left: Knee ROSALIA : ORTHOPAEDICS 12/14/2027 5521-B-500 / / [id number] Knee X3 Ins Pos Cs Sz5 9 - [id number] Implanted:Qty: 1 on 01/05/2023 by Harley Nguyen, at OR [facility] Left: Knee ROSALIA : ORTHOPAEDICS 11/19/2027 5531-G-509 -E / / [id number] Cement Bone Full Mix Surg Simp - [id number] Implanted:Qty: 1 on 03/03/2023 by Cholo Shah MD at OR [facility] Right: Knee ROSALIA : ORTHOPAEDICS 05/08/2025 6191-1-010 / / [id number] Knee Tib Comp Poly Krh 8 Lg - [id number] Implanted:Qty: 1 on 03/03/2023 by Cholo Shah MD at OR [facility] Right: Knee ROSALIA : ORTHOPAEDICS 07/19/2023 6485-2-308 / / [id number] Knee Hrhk Mod Rot Hng Bushing - [id number] Implanted:Qty: 1 on 03/03/2023 by Cholo Shah MD at OR [facility] Right: Knee ROSALIA : ORTHOPAEDICS 01/09/2027 6481-2-110 / / [id number] Knee Hrhk Mod Rot Hng Bushing - [id number] Implanted:Qty: 1 on 03/03/2023 by Cholo Shah MD at OR [facility] Right: Knee ROSALIA : ORTHOPAEDICS 11/21/2026 6481-2-110 / / [id number] Knee Stem Crv Mod Mrs 51w312 - [id number] Implanted:Qty: 1 on 03/03/2023 by Cholo Shah MD at OR [facility] Right: Knee ROSALIA : ORTHOPAEDICS 10/02/2026 6485-3-715 / / [id number] Tib Mrh Cross Bear Long Xs/Xl - [id number] Implanted:Qty: 1 on 03/03/2023 by Cholo Shah MD at OR [facility] Right: Knee ROSALIA : ORTHOPAEDICS 12/05/2025 6481-2-103 / / [id number] Knee Tib Bumper Rot Hng Nue - [id number] Implanted:Qty: 1 on 03/03/2023 by Cholo Shah MD at OR [facility] Right: Knee ROSALIA : ORTHOPAEDICS 07/15/2027 6481-2-130 / / [id number] Distal Femoral Component Implanted:Qty: 1 on 03/03/2023 by Cholo Shah MD at OR [facility] Right: Knee ROSALIA : ORTHOPAEDICS 08/23/2023 6495-2-040 / / [id number] Knee Axle Hrhk Rot Mod Hng - [id number] Implanted:Qty: 1 on 03/03/2023 by Cholo Shah MD at OR [facility] Right: Knee ROSALIA : ORTHOPAEDICS 06/30/2027 6481-2-120 / / [id number] Restrictors Med Cmnt M507-5618 - [id number] Implanted:Qty: 1 on 03/03/2023 by Cholo Shah MD at OR [facility] Right: Knee ROSALIA : ORTHOPAEDICS 11/18/2027 R605-6492 / / Cement Bone Full Mix Surg Simp - [id number] Implanted:Qty: 1 on 03/03/2023 by Cholo Shah MD at OR [facility] Right: Knee ROSALIA : ORTHOPAEDICS 07/09/2025 6191-1-010 / / [id number] Cement Bone Full Mix Surg Simp - [id number] Implanted:Qty: 1 on 03/03/2023 by Cholo Shah MD at OR [facility] Right: Knee ROSALIA : ORTHOPAEDICS 06/08/2025 6191-1-010 / / [id number] Cement Bone Full Mix Surg Simp - [id number] Implanted:Qty: 1 on 03/03/2023 by Cholo Shah MD at OR [facility] Right: Knee ROSALIA : ORTHOPAEDICS 05/08/2025 6191-1-010 / / [id number] Knee Fem Gmrs Dis Std R - [id number] Implanted:Qty: 1 on 03/10/2023 by Cholo Shah MD at OR [facility] Right: Knee ROSALIA : ORTHOPAEDICS 10/21/2027 6495-2-040 / / [id number] Knee Hrhk Mod Rot Hng Bushing - [id number] Implanted:Qty: 1 on 03/10/2023 by Cholo Shah MD at OR [facility] Right: Knee ROSALIA : ORTHOPAEDICS 01/29/2027 6481-2-110 / / [id number] Knee Axle Hrhk Rot Mod Hng - [id number] Implanted:Qty: 1 on 03/10/2023 by Cholo Shah MD at OR [facility] Right: Knee ROSALIA : ORTHOPAEDICS 09/15/2027 6481-2-120 / / [id number] Tib Mrh Cross Bear Long Xs/Xl - [id number] Implanted:Qty: 1 on 03/10/2023 by Cholo Shah MD at OR [facility] Right: Knee ROSALIA : ORTHOPAEDICS 09/30/2027 6481-2-103 / / [id number] Knee Hrhk Mod Rot Hng Bushing - [id number] Implanted:Qty: 1 on 03/10/2023 by Cholo Shah MD at OR [facility] Right: Knee ORSALIA : ORTHOPAEDICS 04/24/2027 6481-2-110 / / [id number] Knee Tib Bumper Rot Hng Nue - [id number] Implanted:Qty: 1 on 03/10/2023 by Cholo Shah MD at OR [facility] [place] Right: Knee ROSALIA : ORTHOPAEDICS 10/15/2027 6481-2-130 / / [id number] documented as of this encounter Visit Diagnoses Diagnosis GENERAL OSTEOARTHROSIS Generalized osteoarthrosis, unspecified site documented in this encounter Advance Directives Documents on File Type Date Recorded 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 Care Teams Printing Specialist Relationship Specialty Start Date End Date Antonia Hawthorne DO [address] [facility] [place] [address] PCP - General Family Medicine 08/20/22 documented as of this encounter
--- OUTSIDE RECORDS SUMMARY | 2024-07-24 20:38 | External Medical Summary | Summary of Care ---
Author Name Unknown Organization [facility] Address [address] [place] [address] Phone [phone] Care Team Providers Care Candy Attendant Name Role Phone Kat Hawthorne Primary Care Provider [phone] Encounter Details Date Type Department Care Team (Late st Contact Info) Description 05/30/2024 Result Scan Unspecified Department <No scans attached> Allergies Active Allergy Reactions [...] as of this encounter (statuses as of 06/09/2024) Medications Medication Sig Dispensed Refills Start Date [...] Inhalation Aerosol SolutionIndications :ILD (interstitial lung disease) ([facility]) Inhale by mouth 2 Puffs every [...] by mouth in the morning. Active Nystatin 851693 UNIT/GM External Powder (Nystop) Apply topically to affected area 3 times a day. 60 g 5 05/29/2023 Active Sotalol HCl 80 MG Oral Tablet (Betapace) Take 1 Tablet by mouth in the morning and 1 Tablet before bedtime. 180 Tablet 3 06/08/2023 Active Ipratropium-Albuter ol 0.5-2.5 (3) MG/3ML Inhalation [...] 10/13/2023 Active Hydrocortisone (Perianal) 2.5 % External CreamIndications:He [...] 03/07/2024 Active hydrOXYzine HCl 25 MG Oral TabletIndications:P [...] 05/10/2024 Active predniSONE 10 MG Oral Tablet (Deltasone)Indicati ons:Acquired hemolytic anemia (HCC) Take 1 Tablet by mouth in the morning. 30 Tablet 05/11/2024 Active Budesonide 0.5 MG/2ML Inhalation Suspension (Pulmicort) Inhale 0.5 mg via nebulizer in the morning. 180 mL 3 05/23/2024 Active documented as of this encounter (statuses as of 06/09/2024) Active Problems Problem Noted Date Diagnosed Date [...] fall No pain, no diarrhea currently Old [place] (myocardial infarction) 04/14/2023 Hyperlipidemia 04/14/2023 History of [...] as of this encounter (statuses as of 06/09/2024) Resolved Problems Problem Noted Date Diagnosed Date [...] History - s/p surgery & treatment per FOLLOW UP REP note on 11/18/23 Ca 125: 68.8 U/mL [...] as of this encounter (statuses as of 06/09/2024) Immunizations Name Administration Dates Next Due COVID-19 [...] Age 7 and older, IM (Adacel) 02/27/2009(De juand: Patient Refused) Zoster Vaccine Recombinant (Shingrix) 06/03/2021 [...] Care Team (Late st Contact Info) Description 06/13/2024 11:30 AM EDT Office Visit Pulmonary Medicine, [place] [address] [place] [address] Leigh Canales MD [address] [place] [address] 06/27/2024 4:00 PM EDT [facility] Visit [facility] [address] [facility] [place] [address] July Diaz RN 132 [facility] [place] [address] 07/04/2024 11:00 AM EDT PulmDiagnostic Pulmonary Function Lab, [address] [address], Pft Room [address] [place] [address] 08/22/2024 2:15 PM EDT Office Visit Hematology/On[facility] [address] [place] [phone] Robert Marion MD [address] [place] [address] 08/29/2024 11:00 AM EDT Office Visit Cardiology, [facility] [address] [place] [address] Shilpi Bailey PA-C [address] [place] [address] 10/07/2024 11:50 AM EST Office Visit [facility] [address] [place] [phone] Kat Hawthorne DO [address] [place] [address] Scheduled Procedures Name Priority Associated Diagnoses Date/Ti [...] Additional history exists CKD PHOS USE SMARTSET 11977 03/21/202503/09, 03/16/2023, 03/15/2023, Additional history exists Depression Screening 03/21/2025 03/21/2024 Albumin/Creatinine Ratio 03/22/2025 024, 09/04/2021, 01/27/2019, Additional history exists Diabetic Foot Exam 04/27/2025 04/27/2024 O2 ASSESSMENT COMPLETED IN PAST YEAR FOR COPD 05/25/2025 05/25/2024 CKD HGB USE SMARTSET 84935 06/06/202506/06, 06/06/2024, 05/24/2024, Additional history exists Lipid [...] this encounter Medical Devices Implanted Type Area Applied Behavior Specialist Device Identifier Shelf Expiration Date Model / Serial / Lot Cement Bone Simplex Hv & G - [id number] Implanted:Qty: 2 on 01/05/2023 by Harley Nguyen, DO at OR [facility] Left: Knee ROSALIA : ORTHOPAEDICS 06/08/2024 6195-1-010 / / [id number] Femoral Size 5 - [id number] Implanted:Qty: 1 on 01/05/2023 by Harley Nguyen, at OR [facility] Left: Knee ROSALIA : ORTHOPAEDICS 08/09/2026 5510-F-501 / / [id number] Knee Tria Syetric X3 10x36 - [id number] Implanted:Qty: 1 on 01/05/2023 by Harley Nguyen DO at OR [facility] Left: Knee ROSALIA : ORTHOPAEDICS 09/24/2027 5550-G-360 -E / / [id number] Baseplate Tib 5 Knee - [id number] Implanted:Qty: 1 on 01/05/2023 by Harley Nguyen DO at OR [facility] Left: Knee ROSALIA : ORTHOPAEDICS 12/14/2027 5521-B-500 / / [id number] Knee X3 Ins Pos Cs Sz5 9 - [id number] Implanted:Qty: 1 on 01/05/2023 by Harley Nguyen DO at OR [facility] Left: Knee ROSALIA : ORTHOPAEDICS 11/19/2027 5531-G-509 -E / / [id number] Cement Bone Full Mix Surg Simp - [id number] Implanted:Qty: 1 on 03/03/2023 by Cholo Shah MD [place] [facility] Knee ROSALIA : ORTHOPAEDICS 05/08/2025 6191-1-010 / / [id number] Knee Tib Comp Poly Krh 8 Lg - [id number] Implanted:Qty: 1 on 03/03/2023 by Cholo Shah MD [place] [facility] [place]: Knee ROS[employer]IA : ORTHOPAEDICS 07/19/2023 6485-2-308 / / [id number] Knee Hrhk Mod Rot Hng Bushing - [id number] Implanted:Qty: 1 on 03/03/2023 by Cholo Shah MD [place] [facility] [place] Knee ROSALIA : ORTHOPAEDICS 01/09/2027 6481-2-110 / / [id number] Knee Hrhk Mod Rot Hng Bushing - [id number] Implanted:Qty: 1 on 03/03/2023 by Cholo Shah MD [place] [facility] [place]: Knee ROSALIA : ORTHOPAEDICS 11/21/2026 6481-2-110 / / [id number] Knee Stem Crv Mod Mrs 42h133 - [id number] Implanted:Qty: 1 on 03/03/2023 by Cholo Shah MD [place] [facility] [place]: Knee ROSALIA : ORTHOPAEDICS 10/02/2026 6485-3-715 / / [id number] Tib Mrh Cross Bear Long Xs/Xl - [id number] Implanted:Qty: 1 on 03/03/2023 by Cholo Shah MD at [place] [facility] [place]: Knee ROSALIA : ORTHOPAEDICS 12/05/2025 6481-2-103 / / [id number] Knee Tib Bumper Rot Hng Nue - [id number] Implanted:Qty: 1 on 03/03/2023 by Cholo Shah MD at [place] [facility] [place]: Knee ROSALIA : ORTHOPAEDICS 07/15/2027 6481-2-130 / / [id number] Distal Femoral Component Implanted:Qty: 1 on 03/03/2023 by Cholo Shah MD [place] [facility] [place]: Knee ROSALIA : ORTHOPAEDICS 08/23/2023 6495-2-040 / / [id number] Knee Axle Hrhk Rot Mod Hng - [id number] Implanted:Qty: 1 on 03/03/2023 by Cholo Shah MD [place] [facility] [place]: Knee ROSALIA : ORTHOPAEDICS 06/30/2027 6481-2-120 / / [id number] Restrictors Med Cmnt R294-0739 - [id number] Implanted:Qty: 1 on 03/03/2023 by Cholo Shah MD [place] [facility] [place]: Knee ROSALIA : ORTHOPAEDICS 11/18/2027 O262-2632 / / Cement Bone Full Mix Surg Simp - [id number] Implanted:Qty: 1 on 03/03/2023 by Cholo Shah MD [place] [facility] [place]: Knee ROSALIA : ORTHOPAEDICS 07/09/2025 6191-1-010 / / [id number] Cement Bone Full Mix Surg Simp - [id number] Implanted:Qty: 1 on 03/03/2023 by Cholo Shah MD [place] [facility] [place]: Knee ROSALIA : ORTHOPAEDICS 06/08/2025 6191-1-010 / / [id number] Cement Bone Full Mix Surg Simp - [id number] Implanted:Qty: 1 on 03/03/2023 by Cholo Shah MD at [place] [facility] [place]: Knee ROSALIA : ORTHOPAEDICS 05/08/2025 6191-1-010 / / [id number] Knee Fem Gmrs Dis Std R - [id number] Implanted:Qty: 1 on 03/10/2023 by Cholo Shah MD at [place] [facility] [place]: Knee ROSALIA : ORTHOPAEDICS 10/21/2027 6495-2-040 / / [id number] Knee Hrhk Mod Rot Hng Bushing - [id number] Implanted:Qty: 1 on 03/10/2023 by Cholo Shah MD at [place] [facility] [place]: Knee ROSALIA : ORTHOPAEDICS 01/29/2027 6481-2-110 / / [id number] Knee Axle Hrhk Rot Mod Hng - [id number] Implanted:Qty: 1 on 03/10/2023 by Cholo Shah MD at [place] [facility] [place]: Knee ROSALIA : ORTHOPAEDICS 09/15/2027 6481-2-120 / / [id number] Tib Mrh Cross Bear Long Xs/Xl - [id number] Implanted:Qty: 1 on 03/10/2023 by Cholo Shah MD at [place] [facility] [place]: Knee ROSALIA : ORTHOPAEDICS 09/30/2027 6481-2-103 / / [id number] Knee Hrhk Mod Rot Hng Bushing - [id number] Implanted:Qty: 1 on 03/10/2023 by Cholo Shah MD at [place] [facility] [place]: Knee ROSALIA : ORTHOPAEDICS 04/24/2027 6481-2-110 / / [id number] Knee Tib Bumper Rot Hng Nue - [id number] Implanted:Qty: 1 on 03/10/2023 by Cholo Shah MD at [place] [facility] [place]: Knee ROSALIA : ORTHOPAEDICS 10/15/2027 6481-2-130 / / [id number] documented as of this encounter Procedures Procedure Name Priority Date/Time Associated Diagnosis Comments OUTSIDE LAB RESULTS 05/30/2024 documented in this encounter Results * OUTSIDE LAB RESULTS (05/30/2024) 05/30/2024 No Physician Data Unknown LABORATORY documented in this encounter Advance Directives Documents on File Type Date Recorded 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 Care Teams Candy Attendant Relationship Specialty Start Date End Date Kat Hawthorne DO [address] [place] [address] PCP - General Family Medicine 08/20/22 documented as of this encounter
--- OUTSIDE RECORDS SUMMARY | 2024-07-24 20:38 | External Medical Summary | Summary of Care ---
Author Name Unknown Organization [facility] Address [address] [place] [address] Phone [phone] Care Team Providers Care Collections Specialist Name Role Phone Rodrigobrandy Kat Salma ALARCON Primary Care Provider [phone] Reason for Visit * Reason Onset Date Comments Appointment 06/10/2024 Encounter Details Date Type Department Care Team (Late st Contact Info) Description 06/10/2024 Telephone [facility] [place] [address] [place] [address] Services, Scheduling [address] [place] [address] Appointment Allergies Active Allergy Reactions Criticality Noted Date [...] as of this encounter (statuses as of 06/10/2024) Medications Medication Sig Dispensed Refills Start Date [...] ([facility]),Chronic respiratory failure with hypoxia (HCC) Use 2 LPM with exertion and 3 LPM with sleep. Needs small portable tanks, standing concentrator DME: [facility] 1 Each 07/02/2022 Active Proventil HFA 108 (90 Base) MCG/ACT Inhalation Aerosol SolutionIndications: ILD (interstitial lung disease) ([facility]) Inhale [...] by mouth in the morning. Active Nystatin 989354 UNIT/GM External Powder (Nystop) Apply topically to [...] needed for Anxiety. 60 Tablet 06/08/2024 Active documented as of this encounter (statuses as of 06/10/2024) Active Problems Problem Noted Date Diagnosed Date [...] as of this encounter (statuses as of 06/10/2024) Resolved Problems Problem Noted Date Diagnosed Date [...] History - s/p surgery & treatment per SCREEN CLEANER note on 11/18/23 Ca 125: 68.8 U/mL [...] as of this encounter (statuses as of 06/10/2024) Immunizations Name Administration Dates Next Due COVID-19 mRNA, LNP-s, No Pre serve, 2-Dose Series ([employer]) 08/23/2021,01/26/2021,01/05/2021 Pneumococcal Conjugate Vacc, 13 Valent (Prevnar) [...] encounter Miscellaneous Notes * Telephone Encounter - Domi Ahumada OSA - 06/10/2024 10:51 AM EDT Per request to rs pt to be seen by Salma Diaz on 06/27. Rs pt to be seen on 06/17 at 2:30. Pt confirmednew date and time works for her. documented in this encounter Plan of Treatment Upcoming Encounters Date Type Department Care Team (Late st Contact Info) Description 06/13/2024 11:30 AM EDT Office Visit Pulmonary Medicine, [place] [address] [facility] [address] Leigh Canales MD [address] [facility] [place] [address] 06/17/2024 2:30 PM EDT Home Visit enrique at [address] [place] [address] July Diaz, RN [address] [place] [address] 07/04/2024 11:00 AM EDT PulmDiagnostic Pulmonary Function Lab, [address] [address], Pft Room [address] [place] [address] 08/22/2024 2:15 PM EDT Office Visit Hematology/Oncology [facility] [address] [facility] [place] [phone] Robert Marion MD [address] [facility] [place] [address] 08/29/2024 11:00 AM EDT Office Visit Cardiology, [facility] [address] [place] [address] Shilpi Bailey PA-C [address] [place] [address] 10/07/2024 11:50 AM EST Office Visit [address] [phone] Kat Hawthorne, [address] [place] [address] Scheduled Procedures Name Priority Associated Diagnoses Date/Ti [...] Risk 3-dose series) 2013 COVID-19 Vaccine ( - season) 2023 08/23/2021, 08/02/2021, 01/26/2021, Additional history exists Influenza Vaccine (FLU shot) (#1) 2024 07/16/2023, 2022, 08/16/2021, Additional history exists HbA1c 09/21/2024 03/21/2024, 02/0 07/2023, 05/27/2018, Additional history exists GFR 11/01/2024 05/02/2024, 03/09, 02/15/2024, Additional history exists Mammogram 12/09/2024 12/09/2023, 11/11, 04/30/2022, Additional history exists Diabetic Eye Exam 03/10/2025 03/10/2024, , 01/30/2023, Additional history exists CKD PHOS USE SMARTSET 38821 03/21/202503/09, 03/16/2023, 03/15/2023, Additional history exists Depression Screening 03/21/2025 03/21/2024 Albumin/Creatinine Ratio 03/22/202503/22/2 024, 09/04/2021, 01/27/2019, Additional history exists Diabetic Foot Exam 04/27/2025 04/27/2024 O2 ASSESSMENT COMPLETED IN PAST YEAR FOR COPD 05/25/2025 05/25/2024 CKD HGB USE SMARTSET 63223 06/06/202506/06, 06/06/2024, 05/24/2024, Additional history exists Lipid [...] this encounter Medical Devices Implanted Type Area Fish Flipper Device Identifier Shelf Expiration Date Model / Serial / Lot Cement Bone Simplex Hv & G - [id number] Implanted:Qty: 2 on 01/05/2023 by Harley Nguyen DO at OR [facility] Left: Knee ROSALIA : ORTHOPAEDICS 06/08/2024 6195-1-010 / / [id number] Femoral Size 5 - [id number] Implanted:Qty: 1 on 01/05/2023 by Harley Nguyen DO at OR [facility] Left: Knee ROSALIA : ORTHOPAEDICS 08/09/2026 5510-F-501 / / [id number] Knee Tria Syetric X3 10x36 - [id number] Implanted:Qty: 1 on 01/05/2023 by Harley Nguyen DO at OR [facility] Left: Knee ROSALIA : ORTHOPAEDICS 09/24/2027 5550-G-360 -E / / [id number] Baseplate Tib 5 Knee - [id number] Implanted:Qty: 1 on 01/05/2023 by Harley Nguyen DO at OR [facility] Left: Knee ROSALIA : ORTHOPAEDICS 12/14/2027 5521-B-500 / / [id number] Knee X3 Ins Pos Cs Sz5 9 - [id number] Implanted:Qty: 1 on 01/05/2023 by Harley Nguyen DO at OR [facility] Left: Knee ROSALIA : ORTHOPAEDICS 11/19/2027 5531-G-509 -E / / [id number] Cement Bone Full Mix Surg Simp - [id number] Implanted:Qty: 1 on 03/03/2023 by [place] Shah MD [place] [facility] [place]: Knee ROSALIA : ORTHOPAEDICS 05/08/2025 6191-1-010 / / [id number] Knee Tib Comp Poly Krh 8 Lg - [id number] Implanted:Qty: 1 on 03/03/2023 by Cholo Shah MD [place] [facility] [place]: Knee ROSALIA : ORTHOPAEDICS 07/19/2023 6485-2-308 / / [id number] Knee Hrhk Mod Rot Hng Bushing - [id number] Implanted:Qty: 1 on 03/03/2023 by Cholo Shah MD [place] [facility] [place]: Knee ROSALIA : ORTHOPAEDICS 01/09/2027 6481-2-110 / / [id number] Knee Hrhk Mod Rot Hng Bushing - [id number] Implanted:Qty: 1 on 03/03/2023 by Cholo Shah MD [place] [facility] [place]: Knee ROSALIA : ORTHOPAEDICS 11/21/2026 6481-2-110 / / [id number] Knee Stem Crv Mod Mrs 14k777 - [id number] Implanted:Qty: 1 on 03/03/2023 by Cholo Shah MD [place] [facility] [place]: Knee ROSALIA : ORTHOPAEDICS 10/02/2026 6485-3-715 / / [id number] Tib Mrh Cross Bear Long Xs/Xl - [id number] Implanted:Qty: 1 on 03/03/2023 by Cholo Shah MD [place] [facility] [place]: Knee ROSALIA : ORTHOPAEDICS 12/05/2025 6481-2-103 / / [id number] Knee Tib Bumper Rot Hng Nue - [id number] Implanted:Qty: 1 on 03/03/2023 by Cholo Shah MD [place] [facility] [place]: Knee ROSALIA : ORTHOPAEDICS 07/15/2027 6481-2-130 / / [id number] Distal Femoral Component Implanted:Qty: 1 on 03/03/2023 by Cholo Shah MD [place] [facility] [place]: Knee ROSALIA : ORTHOPAEDICS 08/23/2023 6495-2-040 / / [id number] Knee Axle Hrhk Rot Mod Hng - [id number] Implanted:Qty: 1 on 03/03/2023 by Cholo Shah MD [place] [facility] [place]: Knee ROSALIA : ORTHOPAEDICS 06/30/2027 6481-2-120 / / [id number] Restrictors Med Cmnt F448-0717 - [id number] Implanted:Qty: 1 on 03/03/2023 by Cholo Shah MD [place] [facility] [place]: Knee ROSALIA : ORTHOPAEDICS 11/18/2027 T362-7583 / / Cement Bone Full Mix Surg Simp - [id number] Implanted:Qty: 1 on 03/03/2023 by Cholo Shah MD [place] [facility] [place]: Knee ROSALIA : ORTHOPAEDICS 07/09/2025 6191-1-010 / / [id number] Cement Bone Full Mix Surg Simp - [id number] Implanted:Qty: 1 on 03/03/2023 by Cholo Shah MD [place] [facility] [place]: Knee ROSALIA : ORTHOPAEDICS 06/08/2025 6191-1-010 / / [id number] Cement Bone Full Mix Surg Simp - [id number] Implanted:Qty: 1 on 03/03/2023 by Cholo Shah MD [place] [facility] [place]: Knee ROSALIA : ORTHOPAEDICS 05/08/2025 6191-1-010 / / [id number] Knee Fem Gmrs Dis Std R - [id number] Implanted:Qty: 1 on 03/10/2023 by Cholo Shah MD [place] [facility] [place]: Knee ROASLIA : ORTHOPAEDICS 10/21/2027 6495-2-040 / / [id number] Knee Hrhk Mod Rot Hng Bushing - [id number] Implanted:Qty: 1 on 03/10/2023 by Cholo Shah MD [place] [facility] [place]: Knee ROSALIA : ORTHOPAEDICS 01/29/2027 6481-2-110 / / [id number] Knee Axle Hrhk Rot Mod Hng - [id number] Implanted:Qty: 1 on 03/10/2023 by Cholo Shah MD [place] [facility] [place]: Knee ROSALIA : ORTHOPAEDICS 09/15/2027 6481-2-120 / / [id number] Tib Mrh Cross Bear Long Xs/Xl - [id number] Implanted:Qty: 1 on 03/10/2023 by Cholo Shah MD [place] [facility] [place]: Knee ROSALIA : ORTHOPAEDICS 09/30/2027 6481-2-103 / / [id number] Knee Hrhk Mod Rot Hng Bushing - [id number] Implanted:Qty: 1 on 03/10/2023 by Cholo Shah MD [place] [facility] [place]: Knee ROSALIA : ORTHOPAEDICS 04/24/2027 6481-2-110 / / [id number] Knee Tib Bumper Rot Hng Nue - [id number] Implanted:Qty: 1 on 03/10/2023 by Cholo Shah MD [place] [facility] [place]: Knee ROASLIA : ORTHOPAEDICS 10/15/2027 6481-2-130 / / [id number] documented as of this encounter Advance Directives Documents on File Type Date Recorded Patient Book Binder Expl 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 Care Teams Collections Specialist Relationship Specialty Start Date End Date Kat Hawthorne DO [address] [place] [facility] [place] [address] PCP - General Family Medicine 08/20/22 documented as of this encounter
--- OUTSIDE RECORDS SUMMARY | 2024-07-24 20:38 | External Medical Summary | Summary of Care ---
Author Name Unknown Organization [facility] Address [address] [place] [address] Phone [phone] Care Team Providers Care Weed Controller Name Role Phone Antonia Hawthorne DO Primary Care Provider [phone] Reason for Visit * Reason Onset Date Comments Medication Refill 06/06/2024 Encounter Details Date Type Department Care Team (Late st Contact Info) Description 06/06/2024 Refill [facility] [address] [place] [address] Antonia Hawthorne DO [address] [place] [address] BILLY (generalized anxiety disorder) Allergies [...] as of this encounter (statuses as of 06/08/2024) Medications Medication Sig Dispensed Refills Start Date [...] Inhalation Aerosol SolutionIndications :ILD (interstitial lung disease) ([facility]) Inhale [...] by mouth in the morning. Active Nystatin 740949 UNIT/GM External Powder (Nystop) Apply topically to [...] as needed for Anxiety. 60 Tablet 4 06/06/20 24 Discontinu ed(Refill) documented as of this encounter (statuses as of 06/08/2024) Active Problems Problem Noted Date Diagnosed Date [...] as of this encounter (statuses as of 06/08/2024) Resolved Problems Problem Noted Date Diagnosed Date [...] History - s/p surgery & treatment per CORPORATE TRAINER note on 11/18/23 Ca 125: 68.8 U/mL [...] as of this encounter (statuses as of 06/08/2024) Immunizations Name Administration Dates Next Due COVID-19 mRNA, LNP-s, No Pre serve, 2-Dose Series ([employer]) 08/23/2021,01/26/2021,01/05/2021 Pneumococcal Conjugate Vacc, 13 Valent (Prevnar) [...] Telephone Encounter - Antonia Hawthorne DO - 06/08/2024 2:25 PM EDTSigned Prescriptions: Disp Refills LORazepam 0.5 MG Oral Tablet (Ativan) 60 Tab*0 Sig: Take 1 Tablet by mouth every 8 hours as needed for Anxiety. Authorizing Provider: ANTONIA HAWTHORNE * Telephone Encounter - Cheryl Munoz [facility] - 06/07/2024 9:30 AM EDTPending Prescriptions: Disp Refills LORazepam 0.5 MG Oral Tablet (Ativan) 60 Tab*0 Sig: Take 1 Tablet by mouth every 8 hours as needed for Anxiety. * Telephone Encounter - Cheryl Munoz [facility] - 06/07/2024 9:29 AM EDT I have reviewed the patients controlled substance dispensing history in the Prescription Drug Monitoring Program in compliance with the [facility] regulations before prescribing a controlled substance. PDMP checked on 06/07/2024. Pending Prescriptions: Disp Refills LORazepam 0.5 MG Oral Tablet (Ativan) 60 Tab*0 Sig: Take 1 Tablet by mouth every 8 hours as needed for Anxiety. Last Visit: 04/27/2024 (in office), 12/04/2020 (telemedicine) Next Visit: 10/07/2024 Date medication was last filled: 05/09/24 Date medication is due for refill: 05/28/24 [facility]acy: [facility] [address] [address] [place] Is this request for a controlled substance? [...] Results Review. Please approve if appropriate. Thanks, Cheryl Munoz Clinical Pharmacist [facility] ([facility]) [phone] 06/07/2024, 9:29 AM * Telephone Encounter - Reyna Messina, product marketing engineer - 06/06/2024 9:34 AM EDT Did you pend patient's preferred pharmacy and medication before forwarding?yes [facility] [address] [address] [address] [facility] Pending Prescriptions: Disp Refills LORazepam 0.5 MG Oral Tablet (Ativan) 60 Tab*0 Sig: Take 1 Tablet by mouth every 8 hours as needed for Anxiety. Last Visit: 04/27/2024 (in office), 12/04/2020 (telemedicine) Next Visit: 10/07/2024 If no future appointments scheduled, and last appointment is greater than a year ago, please schedule patient for a follow-up appointment Last date the medication was ordered: 05/09/2024 Is this request for a controlled substance?Yes, What was the last refill date 05/09/2024 w/ quantity 60 and dosage 0.5 mg and Urine Drug Screen Not completed Urine [...] Description 06/27/2024 4:00 PM EDT [facility] Visit [facility] [address] [place] [address] July Diaz, RN [address] [place] [address] [address] 08/22/2024 2:15 PM EDT Office Visit Hematology/Oncology [facility] [address] [facility], [place] [address] Robert Marion MD [address], [place] [address] 08/29/2024 11:00 AM EDT Office Visit Cardiology, [facility] [address] [facility] [place] [address] Shilpi Bailey PA-C [address] [place] [address] 10/07/2024 11:50 AM EST Office Visit [facility] [address] [place] [phone] Antonia Hawthorne DO [address] [place] [address] Scheduled Procedures Name Priority Associated Diagnoses Date/Ti [...] Additional history exists CKD PHOS USE SMARTSET 01489 03/21/202503/09, 03/16/2023, 03/15/2023, Additional history exists Depression Screening 03/21/2025 03/21/2024 Albumin/Creatinine Ratio 03/22/202503/22/ 024, 09/04/2021, 01/27/2019, Additional history exists Diabetic Foot Exam 04/27/2025 04/27/2024 O2 ASSESSMENT COMPLETED IN PAST YEAR FOR COPD 05/25/2025 05/25/2024 CKD HGB USE SMARTSET 15584 06/06/202506/06, 06/06/2024, 05/24/2024, Additional history exists Lipid Panel 09/03/2027 09/03/2022, 09/09, 08/02/2019, Additional history exists Colonoscopy 07/27/2030 07/27/2020, 09/25/2017 Colorectal Cancer Screening 07/27/2030 DTaP,Tdap,and Td Vaccines (2 - Td or Tdap) 09/02/2031 09/02/2021 Pneumococcal Vaccine: 65+ Years Completed 05/17/2020, 09/03/2018 Zoster Vaccines Completed 06/03/2021, 03/19/2021 Hepatitis C Screening Completed 12/18/2022 , 12/18/2022, 12/18/2022, Additional history exists *BASELINE EKG FOR HTN Completed 02/28/2023 , 04/17/2022, 09/26/2021, Additional history exists HPV (Gardasil) Vaccine Aged Out No lo nger eligible based on patient's age to complete this topic MENINGOCOCCAL (MENACTRA/MENVEO) Aged Out No longer eligible based on patient's age to complete this topic documented as of this encounter Medical Devices Implanted Type Area Political Worker Device Identifier Shelf Expiration Date Model / Serial / Lot Cement Bone Simplex Hv & G - [id number] Implanted:Qty: 2 on 01/05/2023 by Harley Nguyen, DO at OR [facility] Left: Knee ROSALIA : ORTHOPAEDICS 06/08/2024 6195-1-010 / / [id number] Component Femoral Size 5 - [id number] Implanted:Qty: 1 on 01/05/2023 by Harley Nguyen, at OR [facility] Left: Knee [employer] : ORTHOPAEDICS 08/09/2026 5510-F-501 / / [id number] Knee Tria Syetric X3 10x36 - [id number] Implanted:Qty: 1 on 01/05/2023 by Harley Nguyen, at OR [facility] Left: Knee [employer] : ORTHOPAEDICS 09/24/2027 5550-G-360 -E / / [id number] Baseplate Tib 5 Knee - [id number] Implanted:Qty: 1 on 01/05/2023 by Harley Nguyen DO at OR [facility] Left: Knee [employer] : ORTHOPAEDICS 12/14/2027 5521-B-500 / / [id number] Knee X3 Ins Pos Cs Sz5 9 - [id number] Implanted:Qty: 1 on 01/05/2023 by Harley Nguyen, at OR [facility] Left: Knee [employer] : ORTHOPAEDICS 11/19/2027 5531-G-509 -E / / [id number] Cement Bone Full Mix Surg Simp - [id number] Implanted:Qty: 1 on 03/03/2023 by Cholo Shah MD [place] [facility] [place] Knee [employer] : ORTHOPAEDICS 05/08/2025 6191-1-010 / / [id number] Knee Tib Comp Poly Krh 8 Lg - [id number] Implanted:Qty: 1 on 03/03/2023 by Cholo Shah MD [place] [facility] [place]: Knee [employer] : ORTHOPAEDICS 07/19/2023 6485-2-308 / / [id number] Knee Hrhk Mod Rot Hng Bushing - [id number] Implanted:Qty: 1 on 03/03/2023 by Cholo Shah MD [place] [facility] [place]: Knee [employer] : ORTHOPAEDICS 01/09/2027 6481-2-110 / / [id number] Knee Hrhk Mod Rot Hng Bushing - [id number] Implanted:Qty: 1 on 03/03/2023 by Cholo Shah MD [place] [facility] [place]: Knee [employer] : ORTHOPAEDICS 11/21/2026 6481-2-110 / / [id number] Knee Stem Crv Mod Mrs 29i219 - [id number] Implanted:Qty: 1 on 03/03/2023 by Cholo Shah MD [place] [facility] [place]: Knee [employer] : ORTHOPAEDICS 10/02/2026 6485-3-715 / / [id number] Tib Mrh Cross Bear Long Xs/Xl - [id number] Implanted:Qty: 1 on 03/03/2023 by Cholo Shah MD [place] [facility] [place]: Knee [employer] : ORTHOPAEDICS 12/05/2025 6481-2-103 / / [id number] Knee Tib Bumper Rot Hng Nue - [id number] Implanted:Qty: 1 on 03/03/2023 by Cholo Shah MD [place] [facility] [place]: Knee [employer] : ORTHOPAEDICS 07/15/2027 6481-2-130 / / [id number] Distal Femoral Component Implanted:Qty: 1 on 03/03/2023 by Cholo Shah MD [place] [facility] [place]: Knee [employer] : ORTHOPAEDICS 08/23/2023 6495-2-040 / / [id number] Knee Axle Hrhk Rot Mod Hng - [id number] Implanted:Qty: 1 on 03/03/2023 by Cholo Shah MD [place] [facility] [place]: Knee [employer] : ORTHOPAEDICS 06/30/2027 6481-2-120 / / [id number] Restrictors Med Cmnt M296-2669 - [id number] Implanted:Qty: 1 on 03/03/2023 by Cholo Shah MD [place] [facility] [place]: Knee [employer] : ORTHOPAEDICS 11/18/2027 L686-8979 / / Cement Bone Full Mix Surg Simp - [id number] Implanted:Qty: 1 on 03/03/2023 by Cholo Shah MD [place] [facility] [place]: Knee [employer] : ORTHOPAEDICS 07/09/2025 6191-1-010 / / [id number] Cement Bone Full Mix Surg Simp - [id number] Implanted:Qty: 1 on 03/03/2023 by Cholo Shah MD [place] [facility] [place]: Knee [employer] : ORTHOPAEDICS 06/08/2025 6191-1-010 / / [id number] Cement Bone Full Mix Surg Simp - [id number] Implanted:Qty: 1 on 03/03/2023 by Cholo Shah MD [place] [facility] [place]: Knee [employer] : ORTHOPAEDICS 05/08/2025 6191-1-010 / / [id number] Knee Fem Gmrs Dis Std R - [id number] Implanted:Qty: 1 on 03/10/2023 by Cholo Shah MD [place] [facility] [place]: Knee [employer] : ORTHOPAEDICS 10/21/2027 6495-2-040 / / [id number] Knee Hrhk Mod Rot Hng Bushing - [id number] Implanted:Qty: 1 on 03/10/2023 by Cholo Shah MD [place] [facility] [place]: Knee [employer] : ORTHOPAEDICS 01/29/2027 6481-2-110 / / [id number] Knee Axle Hrhk Rot Mod Hng - [id number] Implanted:Qty: 1 on 03/10/2023 by Cholo Shah MD [place] [facility] [place]: Knee [employer] : ORTHOPAEDICS 09/15/2027 6481-2-120 / / [id number] Tib Mrh Cross Bear Long Xs/Xl - [id number] Implanted:Qty: 1 on 03/10/2023 by Cholo Shah MD [place] [facility] [place]: Knee [employer] : ORTHOPAEDICS 09/30/2027 6481-2-103 / / [id number] Knee Hrhk Mod Rot Hng Bushing - [id number] Implanted:Qty: 1 on 03/10/2023 by Cholo Shah MD [place] [facility] [place]: Knee [employer]IA : ORTHOPAEDICS 04/24/2027 6481-2-110 / / [id number] Knee Tib Maymper Issac Hayden Nue - [id number] Implanted:Qty: 1 on 03/10/2023 by Cholo Shah MD [place] [facility] [place]: Knee [employer] : ORTHOPAEDICS 10/15/2027 6481-2-130 / / [id number] documented as of this encounter Visit Diagnoses Diagnosis BILLY (generalized anxiety disorder) Generalized anxiety disorder documented in this encounter Advance Directives Documents on File Type Date Recorded Patient Glassblower Expl 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 Care Teams Weed Controller Relationship Specialty Start Date End Date Antonia Hawthorne DO [address] [facility] [place] [phone] PCP - General Family Medicine 08/20/22 documented as of this encounter
--- OUTSIDE RECORDS SUMMARY | 2024-07-24 20:38 | External Medical Summary | Summary of Care ---
Author Name Unknown Organization [facility] Address [address] [place] [address] Phone [phone] Care Team Providers Care Fireman Helper Name Role Phone Kat Hawthorne Primary Care Provider Reason for Visit * Reason Onset Date Comments Mycode Lab Reorder 06/13/2024 Encounter Details Date Type Department Care Team (Late st Contact Info) Description 06/13/2024 Orders Only Outcomes Research Department [address] [place] [address] Shilpi Escalante CHRA MyCode Research Other*[id number]* Allergies Active Allergy Reactions Criticality Noted Date [...] as of this encounter (statuses as of 06/13/2024) Medications Medication Sig Dispensed Refills Start Date [...] Active oxygen IN GASIndications:ILD (interstitial lung disease) ([facility]),Chronic respiratory failure with hypoxia (HCC) [...] by mouth in the morning. Active Nystatin 917455 UNIT/GM External Powder (Nystop) Apply topically to [...] as of this encounter (statuses as of 06/13/2024) Active Problems Problem Noted Date Diagnosed Date [...] fall No pain, no diarrhea currently Old AL (myocardial infarction) 04/14/2023 Hyperlipidemia 04/14/2023 History of [...] as of this encounter (statuses as of 06/13/2024) Resolved Problems Problem Noted Date Diagnosed Date [...] Plan: S/P wound vac placement at [facility] On doxycycline 100 mg BID x [...] History - s/p surgery & treatment per BUTTON PUSHER note on 11/18/23 Ca 125: 68.8 U/mL [...] as of this encounter (statuses as of 06/13/2024) Immunizations Name Administration Dates Next Due COVID-19 mRNA, LNP-s, No Pre serve, 2-Dose Series ([facility]) 08/23/2021,01/26/2021,01/05/2021 Pneumococcal Conjugate Vacc, 13 Valent (Prevnar) [...] of this encounter Progress Notes * Shilpi Escalante CHRA - 06/13/2024 1:44 PM EDT MyCode lab reordered. documented in this encounter Plan of Treatment Upcoming Encounters Date Type Department Care Team (Late st Contact Info) Description 06/17/2024 2:30 PM EDT Home Visit [facility] [address] [address] July Diaz RN [address] [address] 08/22/2024 2:15 PM EDT Office Visit Hematology/Oncology [facility] [place] [address] [place] [phone] Robert Marion MD [address] [facility] [place] [address] 08/29/2024 11:00 AM EDT [facility] [address] [facility] [place] [address] Shilpi Bailey PA-C [address] [place] [address] 10/07/2024 11:50 AM EST Office Visit [facility] [address] [place] [phone] Kat Hawthorne DO [address] [place] [address] Scheduled Orders Name Type Priority Associated Diagnoses Orde r Schedule MYCODE SUBSEQUENT ADULT Lab Routine MyCode Research Other*[id number] Every 6 Months for 2 Occurrences starting 06/13/2024 until 07/03/2025 Scheduled Procedures Name Priority Associated Diagnoses Date/Ti [...] Additional history exists CKD PHOS USE SMARTSET 75360 03/21/202503/09, 03/16/2023, 03/15/2023, Additional history exists Depression Screening 03/21/2025 03/21/2024 Albumin/Creatinine Ratio 03/22/202503/22/ 024, 09/04/2021, 01/27/2019, Additional history exists Diabetic Foot Exam 04/27/2025 04/27/2024 CKD HGB USE SMARTSET 88954 06/06/202506/06, 06/06/2024, 05/24/2024, Additional history exists O2 [...] this encounter Medical Devices Implanted Type Area Talent Recruiter Device Identifier Shelf Expiration Date Model / Serial / Lot Cement Bone Simplex Hv & G - [id number] Implanted:Qty: 2 on 01/05/2023 by Harley Nguyen DO at OR [facility] Left: Knee [employer]IA : ORTHOPAEDICS 06/08/2024 6195-1-010 / / [id number] Component Femoral Size 5 - [id number] Implanted:Qty: 1 on 01/05/2023 by Harley Nguyen DO at OR [facility] Left: Knee [employer]IA : ORTHOPAEDICS 08/09/2026 5510-F-501 / / [id number] Knee Tria Syetric X3 10x36 - [id number] Implanted:Qty: 1 on 01/05/2023 by Harley Nguyen DO at OR [facility] Left: Knee [employer]IA : ORTHOPAEDICS 09/24/2027 5550-G-360 -E / / [id number] Baseplate Tib 5 Knee - [id number] Implanted:Qty: 1 on 01/05/2023 by Harley Nguyen DO at OR [facility] Left: Knee [employer]IA : ORTHOPAEDICS 12/14/2027 5521-B-500 / / [id number] Knee X3 Ins Pos Cs Sz5 9 - [id number] Implanted:Qty: 1 on 01/05/2023 by Harley Nguyen DO at OR [facility] Left: Knee [employer]IA : ORTHOPAEDICS 11/19/2027 5531-G-509 -E / / [id number] Cement Bone Full Mix Surg Simp - [id number] Implanted:Qty: 1 on 03/03/2023 by Cholo Shah MD at [place] [facility] Right: Knee ROS[employer]IA : ORTHOPAEDICS 05/08/2025 6191-1-010 / / [id number] Knee Tib Comp Poly Krh 8 Lg - [id number] Implanted:Qty: 1 on 03/03/2023 by Cholo Shah MD at [place] [facility] Right: Knee [employer]IA : ORTHOPAEDICS 07/19/2023 6485-2-308 / / [id number] Knee Hrhk Mod Rot Hng Bushing - [id number] Implanted:Qty: 1 on 03/03/2023 by Cholo Shah MD at OR [facility] Right: Knee [employer]IA : ORTHOPAEDICS 01/09/2027 6481-2-110 / / [id number] Knee Hrhk Mod Rot Hng Bushing - [id number] Implanted:Qty: 1 on 03/03/2023 by Cholo Shah MD at OR [facility] Right: Knee [employer]IA : ORTHOPAEDICS 11/21/2026 6481-2-110 / / [id number] Knee Stem Crv Mod Mrs 31l400 - [id number] Implanted:Qty: 1 on 03/03/2023 by Cholo Shah MD at OR [facility] Right: Knee [employer]IA : ORTHOPAEDICS 10/02/2026 6485-3-715 / / [id number] Tib Mrh Cross Bear Long Xs/Xl - [id number] Implanted:Qty: 1 on 03/03/2023 by Cholo Shah MD at OR [facility] Right: Knee [employer]IA : ORTHOPAEDICS 12/05/2025 6481-2-103 / / [id number] Knee Tib Bumper Rot Hng Nue - [id number] Implanted:Qty: 1 on 03/03/2023 by Cholo Shah MD at OR [facility] Right: Knee [employer]IA : ORTHOPAEDICS 07/15/2027 6481-2-130 / / [id number] Distal Femoral Component Implanted:Qty: 1 on 03/03/2023 by Cholo Shah MD at OR [facility] Right: Knee [employer]IA : ORTHOPAEDICS 08/23/2023 6495-2-040 / / [id number] Knee Axle Hrhk Rot Mod Hng - [id number] Implanted:Qty: 1 on 03/03/2023 by Cholo Shah MD at OR [facility] Right: Knee [employer]IA : ORTHOPAEDICS 06/30/2027 6481-2-120 / / [id number] Restrictors Med Cmnt T916-0331 - [id number] Implanted:Qty: 1 on 03/03/2023 by Cholo Shah MD at OR [facility] Right: Knee [employer]IA : ORTHOPAEDICS 11/18/2027 C937-9132 / / Cement Bone Full Mix Surg Simp - [id number] Implanted:Qty: 1 on 03/03/2023 by Cholo Shah MD at OR [facility] Right: Knee [employer] : ORTHOPAEDICS 07/09/2025 6191-1-010 / / [id number] Cement Bone Full Mix Surg Simp - [id number] Implanted:Qty: 1 on 03/03/2023 by Cholo Shah MD at OR [facility] Right: Knee [employer]IA : ORTHOPAEDICS 06/08/2025 6191-1-010 / / [id number] Cement Bone Full Mix Surg Simp - [id number] Implanted:Qty: 1 on 03/03/2023 by Cholo Shah MD at [place] [facility] Right: Knee [employer]IA : ORTHOPAEDICS 05/08/2025 6191-1-010 / / [id number] Knee Fem Gmrs Dis Std R - [id number] Implanted:Qty: 1 on 03/10/2023 by Cholo Shah MD at [place] [facility] Right: Knee ROS[employer]IA : ORTHOPAEDICS 10/21/2027 6495-2-040 / / [id number] Knee Hrhk Mod Rot Hng Bushing - [id number] Implanted:Qty: 1 on 03/10/2023 by Cholo Shah MD at OR [facility] Right: Knee ROS[employer]IA : ORTHOPAEDICS 01/29/2027 6481-2-110 / / [id number] Knee Axle Hrhk Rot Mod Hng - [id number] Implanted:Qty: 1 on 03/10/2023 by Cholo Shah MD at OR [facility] Right: Knee ROS[employer]IA : ORTHOPAEDICS 09/15/2027 6481-2-120 / / [id number] Tib Mrh Cross Bear Long Xs/Xl - [id number] Implanted:Qty: 1 on 03/10/2023 by Cholo Shah MD at [place] [facility] Right: Knee ROSALIA : ORTHOPAEDICS 09/30/2027 6481-2-103 / / [id number] Knee Hrhk Mod Rot Hng Bushing - [id number] Implanted:Qty: 1 on 03/10/2023 by Cholo Shah MD at OR [facility] Right: Knee ROS[employer]IA : ORTHOPAEDICS 04/24/2027 6481-2-110 / / [id number] Knee Tib Bumper Rot Hng Nue - [id number] Implanted:Qty: 1 on 03/10/2023 by Cholo Shah MD at OR [facility] Right: Knee ROSALIA : ORTHOPAEDICS 10/15/2027 6481-2-130 / / [id number] documented as of this encounter Visit Diagnoses Diagnosis MyCode Research Other*[id number]- Primary documented in this encounter Advance Directives Documents on File Type Date Recorded Patient Instrumentation Manager Expl 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 Care Teams Fireman Helper Relationship Specialty Start Date End Date Kat Hawthorne DO [address] [facility] [place] [address] PCP - General Family Medicine 08/20/22 documented as of this encounter
--- OUTSIDE RECORDS SUMMARY | 2024-07-24 20:38 | External Medical Summary | Summary of Care ---
Author Name Unknown Organization [facility] Address [address] [place] [address] Phone [phone] Care Team Providers Care Loose Hand Packer Name Role Phone Kat Hawthorne Salma ALARCON Primary Care Provider [phone] Reason for Visit * Reason Onset Date Comments Appointment 06/08/2024 Encounter Details Date Type Department Care Team (Late st Contact Info) Description 06/08/2024 Telephone Pulmonary Medicine, [place] [address], [place] [phone] Raulito Cosme MD [address] [place] [address] Appointment Allergies Active Allergy Reactions Criticality Noted [...] ([facility]),Chronic respiratory failure with hypoxia ([facility]) Use 2 LPM with exertion [...] by mouth in the morning. Active Nystatin 782499 UNIT/GM External Powder (Nystop) Apply topically to [...] & Plan: S/P wound vac placement at [facility] On doxycycline 100 mg BID [...] History - s/p surgery & treatment per [employer]IT [employer]LLER note on 11/18/23 Ca 125: 68.8 U/mL [...] mRNA, LNP-s, No Pre serve, 2-Dose Series ([employer]) 08/23/2021,01/26/2021,01/05/2021 Pneumococcal Conjugate Vacc, 13 Valent (Prevnar) [...] do you feel lonely or isolated from ose around you? Never 03/21/2024 Financial Resource [...] encounter Miscellaneous Notes * Telephone Encounter - Charity Hsu OSA - 06/08/2024 3:28 PM EDT Called to schedule her an appt . There was no answer I left her a message letting her know that shewas scheduled for 07/07 at 11 for her ABG and then in the RF clinic with Dr. Canales. Left a LMOM about her appt documented in this encounter Plan of Treatment Upcoming Encounters Date Type Department Care Team (Late st Contact Info) Description 06/27/2024 4:00 PM EDT Home Visit [facility] [address] [address] July Diaz RN [address] [address] 07/04/2024 11:00 AM EDT PulmDiagnostic Pulmonary Function Lab, [place] [address] [place] [address] 3, [address]ft Room [address] [place] [address] 08/22/2024 2:15 PM EDT Office Visit Hematology/Oncology [facility] [address] [facility] [place] [phone] Robert Marion MD [address] [facility] [place] [address] 08/29/2024 11:00 AM EDT Office Visit Cardiology, [facility] [address] [facility] [place] [address] Shilpi Bailey PA-C [address] [place] [address] 10/07/2024 11:50 AM EST Office Visit [place] [address] [place] [phone] Kat Hawthorne DO [address] [place] [address] Scheduled Procedures Name Priority Associated Diagnoses Date/Ti ct ESOPHAGOGASTRODUODENOSCOPY ( EGD), FLEXIBLE, TRANSORAL, ENDOSCOPIC ULTRASOUND [...] Additional history exists CKD PHOS USE SMARTSET 34928 03/21/202503/09, 03/16/2023, 03/15/2023, Additional history exists Depression Screening 03/21/2025 03/21/2024 Albumin/Creatinine Ratio 03/22/202503/22/2 024, 09/04/2021, 01/27/2019, Additional history exists Diabetic Foot Exam 04/27/2025 04/27/2024 O2 ASSESSMENT COMPLETED IN PAST YEAR FOR COPD 05/25/2025 05/25/2024 CKD HGB USE SMARTSET 59624 06/06/202506/06, 06/06/2024, 05/24/2024, Additional history exists Lipid [...] this encounter Medical Devices Implanted Type Area Commercial Artist Lettering Device Identifier Shelf Expiration Date Model / Serial / Lot Cement Bone Simplex Hv & G - [id number] Implanted:Qty: 2 on 01/05/2023 by Harley Nguyen, at OR [facility] Left: Knee [employer] : [employer] 06/08/2024 6195-1-010 / / [id number] Femoral Size 5 - [id number] Implanted:Qty: 1 on 01/05/2023 by Harley Nguyen DO at OR [facility] Left: Knee [employer] : [employer] 08/09/2026 5510-F-501 / / [id number] Knee Tria Syetric X3 10x36 - [id number] Implanted:Qty: 1 on 01/05/2023 by Harley Nguyen DO at OR [facility] Left: Knee [employer] : [employer] 09/24/2027 5550-G-360 -E / / [id number] Baseplate Tib 5 Knee - [id number] Implanted:Qty: 1 on 01/05/2023 by Harley Nguyen DO at OR [facility] Left: Knee [employer] : [employer] 12/14/2027 5521-B-500 / / [id number] Knee X3 Ins Pos Cs Sz5 9 - [id number] Implanted:Qty: 1 on 01/05/2023 by Harley Nguyen DO at OR [facility] Left: Knee [employer] : [employer] 11/19/2027 5531-G-509 -E / / [id number] Cement Bone Full Mix Surg Simp - [id number] Implanted:Qty: 1 on 03/03/2023 by Cholo Shah MD at [place] [facility] Right: Knee [employer] : [employer] 05/08/2025 6191-1-010 / / [id number] Knee Tib Comp Poly Krh 8 Lg - [id number] Implanted:Qty: 1 on 03/03/2023 by Cholo Shah MD at [place] [facility] Right: Knee [employer] : [employer] 07/19/2023 6485-2-308 / / [id number] Knee Hrhk Mod Rot Hng Bushing - [id number] Implanted:Qty: 1 on 03/03/2023 by Cholo Shah MD at [place] [facility] Right: Knee [employer] : [employer] 01/09/2027 6481-2-110 / / [id number] Knee Hrhk Mod Rot Hng Bushing - [id number] Implanted:Qty: 1 on 03/03/2023 by Cholo Shah MD at [place] [facility] Right: Knee [employer] : [employer] 11/21/2026 6481-2-110 / / [id number] Knee Stem Crv Mod Mrs 61t933 - [id number] Implanted:Qty: 1 on 03/03/2023 by Cholo Shah MD at [place] [facility] Right: Knee [employer] : [employer] 10/02/2026 6485-3-715 / / [id number] Tib Mrh Cross Bear Long Xs/Xl - [id number] Implanted:Qty: 1 on 03/03/2023 by Cholo Shah MD at [place] [facility] Right: Knee [employer] : [employer] 12/05/2025 6481-2-103 / / [id number] Knee Tib Bumper Rot Hng Nue - [id number] Implanted:Qty: 1 on 03/03/2023 by Cholo Shah MD at [place] [facility] Right: Knee [employer] : [employer] 07/15/2027 6481-2-130 / / [id number] Distal Femoral Component Implanted:Qty: 1 on 03/03/2023 by Cholo Shah MD at [place] [facility] Right: Knee [employer] : [employer] 08/23/2023 6495-2-040 / / [id number] Knee Axle Hrhk Rot Mod Hng - [id number] Implanted:Qty: 1 on 03/03/2023 by Cholo Shah MD at [place] [facility] Right: Knee [employer] : [employer] 06/30/2027 6481-2-120 / / [id number] Restrictors Med Cmnt N727-5245 - [id number] Implanted:Qty: 1 on 03/03/2023 by Cholo Shah MD at [place] [facility] Right: Knee [employer] : [employer] 11/18/2027 O234-1341 / / Cement Bone Full Mix Surg Simp - [id number] Implanted:Qty: 1 on 03/03/2023 by Cholo Shah MD at [place] [facility] Right: Knee [employer] : [employer] 07/09/2025 6191-1-010 / / [id number] Cement Bone Full Mix Surg Simp - [id number] Implanted:Qty: 1 on 03/03/2023 by Cholo hSah MD at [place] [facility] Right: Knee [employer] : [employer] 06/08/2025 6191-1-010 / / [id number] Cement Bone Full Mix Surg Simp - [id number] Implanted:Qty: 1 on 03/03/2023 by Cholo Shah MD at [place] [facility] Right: Knee [employer] : [employer] 05/08/2025 6191-1-010 / / [id number] Knee Fem Gmrs Dis Std R - [id number] Implanted:Qty: 1 on 03/10/2023 by Cholo Shah MD at [place] [facility] Right: Knee [employer] : [employer] 10/21/2027 6495-2-040 / / [id number] Knee Hrhk Mod Rot Hng Bushing - [id number] Implanted:Qty: 1 on 03/10/2023 by Cholo Shah MD at [place] [facility] Right: Knee [employer] : [employer] 01/29/2027 6481-2-110 / / [id number] Knee Axle Hrhk Rot Mod Hng - [id number] Implanted:Qty: 1 on 03/10/2023 by Cholo Shah MD at [place] [facility] Right: Knee [employer] : [employer] 09/15/2027 6481-2-120 / / [id number] Tib Mrh Cross Bear Long Xs/Xl - [id number] Implanted:Qty: 1 on 03/10/2023 by Cholo Shah MD at [place] [facility] Right: Knee [employer] : [employer] 09/30/2027 6481-2-103 / / [id number] Knee Hrhk Mod Rot Hng Bushing - [id number] Implanted:Qty: 1 on 03/10/2023 by Cholo Shah MD at [place] [facility] Right: Knee [employer] : [employer] 04/24/2027 6481-2-110 / / [id number] Knee Tib Bumper Rot Hng Nue - [id number] Implanted:Qty: 1 on 03/10/2023 by Cholo Shah MD at [place] [facility] Right: Knee [employer] : [employer] 10/15/2027 6481-2-130 / / [id number] documented as of this encounter Advance Directives Documents on File Type Date Recorded 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 Care Teams Loose Hand Packer Relationship Specialty Start Date End Date Kat Hawthorne, DO [address] [place] [address] PCP - General Family Medicine 08/20/22 documented as of this encounter
--- OUTSIDE RECORDS SUMMARY | 2024-07-24 20:38 | External Medical Summary | Summary of Care ---
Author Name Unknown Organization [facility] Address [address] [place] [address] Phone [phone] Care Team Providers Care Reference And Instruction Librarian Name Role Phone Kat Hawthorne Salma ALARCON Primary Care Provider Reason for Visit * Reason Comments Follow Up Encounter Details Date Type Department Care Team (Late st Contact Info) Description 06/13/2024 11:30 AM EDT Office Visit Pulmonary Medicine, [place] [address] [place] [address] Leigh Canales MD [address] [place] [address] Chronic respiratory failure with hypoxia and hypercapnia (HCC)*; ILD (interstitial lung disease) (HCC); Obesity (BMI 30-39.9); Pulmonary hypertension (HCC); Nocturnal hypoxia Allergies Active Allergy Reactions Criticality Noted Date [...] by mouth in the morning. Active Nystatin 271352 UNIT/GM External Powder (Nystop) Apply topically to [...] History - s/p surgery & treatment per MICROELECTRONICS TECHNICIAN note on 11/18/23 Ca 125: 68.8 U/mL [...] mRNA, LNP-s, No Pre serve, 2-Dose Series ([employer]) 08/23/2021,01/26/2021,01/05/2021 Pneumococcal Conjugate Vacc, 13 Valent (Prevnar) [...] Sign Reading Time Taken Comments Blood Pressure 122/60 06/13/2024 11:21 AM EDT Pulse 64 06/13/2024 11:21 AM EDT Temperature - - Respiratory Rate - - Oxygen Saturation 94% 06/13/2024 11:21 AM EDT 4 LITERS OF OXYGEN Inhaled Oxygen Concentration - - Weight - [...] * Patient Instructions* Kae Patel CRNP - 06/13/2024 12:57 PM EDT Continue to use machine and oxygen as you currently are. I will send message to [employer] for Radha to change the settings on your machine. Please obtain arterial blood gas 2 months after the changes are made to the machine. You can take the order I gave you and have this done at [facility]. Please email if you have any issues prior to the next visit. Follow up with Dr. Canales and I in 3 months via video visit. documented in this encounter Progress Notes * Leigh Canales MD - 06/13/2024 4:12 PM EDT I have reviewed the advanced practitioner's documentation on the date of service referenced in note, and I agree with, and take responsibility for the plan of care. Ms. 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 Oxygen: Currently on 6 LPM at rest and 8 LPM with activity. NIV: On astral, DME adapt, download reviewed ABG done outside reviewed some improvement in CO2 from 68 to 63 mm, but remains hypercapnic Labs: Lab Results Component Value Date/Time CO2 - [facility] 33 (H) 05/02/2024 12:08 PM CO2 - [facility] 36 (H) 03/21/2024 12:19 PM CO2 - [facility] 37 (H) 02/15/2024 12:25 PM CO2 - [facility] 27 11/28/2020 08:44 AM CO2 - [facility] 26 11/15/2020 09:46 AM CO2 - [facility] 26 11/07/2020 07:51 AM Lab Results Component Value Date/Time HGB 9.8 (L) 06/06/2024 10:27 AM HGB 10.0 (L) 05/24/2024 01:47 PM HGB 9.8 (L) 05/16/2024 10:10 AM HGB 10.6 (L) 02/17/2024 11:34 AM HGB 9.4 (A) 05/26/2023 12:00 AM HGB 8.0 (A) 04/03/2023 12:00 AM HGB 8.1 (A) 03/31/2023 12:00 AM HGB 8.7 (L) 12/05/2020 10:33 AM HGB 8.9 (L) 11/28/2020 08:44 AM HGB 8.6 (L) 11/21/2020 08:17 AM 07/03/2023 CXR: Report with areas of peripheral patchy density, likely pneumonia with mild cardiomegaly 02/15/[address]: Diffuse interstitial lung disease. No significant change. Cirrhosis with splenomegaly. 02/09/24 PFTs: Spirometry shows normal obstructive index, reduced FVC of 34%, diffusion capacity uncorrected for hemoglobin is moderately reduced at 40% 06/18/23 Echo: EF 60-65%, mild MR, TR, mild PH with PASP 40 mm, grade 1 diastolic dysfunction Encounter Diagnoses Name Primary? Chronic respiratory failure with hypoxia and hypercapnia (HCC) Yes ILD (interstitial lung disease) (HCC) Obesity (BMI 30-39.9) Pulmonary hypertension (HCC) Nocturnal hypoxia Plan: Continue vent at night, will adjust settings to increase minimum pressure support given persistent hypercapnia Patient congratulated on use of NIV Discussed with patient and her in great detail regarding management of chronic hypercapnic respiratory failure and the importance of using vent Continue O2 as tolerated Follow-up in clinic in 3 months, can do tele visit with ABG done at outside center prior to the visit Encouraged patient to call with any further questions or concerns. All of the above was discussed with the patient. All questions answered to apparent satisfaction. Leigh aCnales MD Pulmonary Medicine [facility] * Kae Patel CRNP - 06/13/2024 11:30 AM EDT Images from the original note were not included. PULMONARY MEDICINE OUTPATIENT CLINIC NOTE Clinic NAME: Orin Bah : 1955 06/13/2024 History: Ms. Bah is a 68 year old female seen today for follow-up of chronic hypoxic / hypercapnic respiratory failure. Patient has a history of chronic hypoxic / hypercapnic RF (on O2 since 2015), pulmonary HTN, paroxysmal atrial tachycardia, PAF, tachy-lakeisha syndrome cardiac pacer in situ, ovarian cancer s/p TAHBSO (2019), HTN, HFpEF, BERRY, hereditary hemolytic anemia (on chronic prednisone, follows with Hematology), chronic anemia, knee replacement (12/2022) c/b anemia requiring blood transfusion. Readmitted several times from rehab for acute respiratory failure, CHF & fall w/ femur fx again requiring surgery with multiple transfusions. Required admission early fall 2022 for respiratory issues and treated with BPAP & HFNC. Evaluated in ILD clinic for her HP, trialed on high dose steroids x 3 months with no improvement of symptoms or radiology. Steroids tapered to normal daily dose and advised to follow up in RF clinic for supportive care of hypercapnia. Sent home on NIV 03/2024 by [facility]. Last seen by me 05/18/2024 s/p HD. Interim History: Overall she is doing ok. The past few days feels a bit "tighter" in the chest. Turned her O2 up to 7 lpm the past 2 nights. Did not try her DuoNeb. Did not notice decreased saturations. Denies worsening brain fog, memory impairment or day time sleepiness. Wearing O2 at 6 lpm at rest and 8-10 lpm with activity. Is able to stand and pivot and will dress / shower in chair. Has difficulty with mobility in R foot. No URI since last visit. No need for abx or additional steroids since last visit. MMRC Dyspnea Scale = 4 (I am too breathless to leave the house or I am breathless when dressing) Respiratory Symptoms: Cough: denies Sputum: a little phlegmy in the mornings Wheezing: denies Reflux: some breakthrough symptoms despite use of Omeprazole Sinus / Allergy symptoms: clear rhinorrhea, taking Claritin & Singulair Inhaled therapies: DuoNeb--> using 1-2 times per day Albuterol NIV / O2 Requirements: DME: [employer] Astral 150 RT: Radha Clemente Serial number: [id number] Nocturnal: Endorses orthopnea with laying flat- sleeps with head elevated in power recliner. Deniesparoxysmal nocturnal dyspnea. Current mask is a hybrid FF mask and reports tolerating the mask with minimal leaking. Sleep Schedule: Bedtime: 0736-2793 Puts the mask on around 0100, likes to read prior to bed TONNY: unclear, will normally doze off while reading or doing crossword puzzle Wake time: varies, usually around 3319-3596 Nocturnal awakenings: rare Daytime Naps: not usually Exacerbation Hx: Hospitalized at [facility] x 2 (03/2024). Initial hospitalization occurred due to malfunction of her O2 concentrator. They noted her hypercapnia during hospital admission and qualified her for NIV. She was sent home on ASV mode. She was also advised to discontinue her Prednisone by someone in her Hem/Onc physician's office. Within about 3 weeks she was found to have significant anemia and worsening of her hypercapnia requiring re-admission. Her case was discussed with me via TT from [facility] and advised she should be switched to a VAPs mode targeting minimum 8 ml/kg. She has remained on 10 mg prednisone since HD. 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 Residence: former apartment- had mold in her kitchen; none in current home; lived in sister's basement for a year- it was damp Birds / Pets: none Past Medical History: Past Medical History: Diagnosis Date Acute blood loss anemia 03/04/2023 Acute on chronic diastolic CHF (congestive heart failure) ([facility]) 03/21/2024 Adding I50.33-Acute on chronic diastolic CHF (congestive heart failure) ([facility]) Dx to History Anemia Anemia in other chronic diseases classified elsewhere Anxiety Cancer ([facility]) ovarian Class 2 obesity in adult 04/23/2010 Per Obesity Protocol, #19 ICD-10 update of inactive term MORE SPECIFIED CODE LISTED ON PL Clostridium difficile infection Depressive disorder, not elsewhere classified Dysmenorrhea Esophageal reflux Hereditary hemolytic anemia, unspecified ([facility]) HTN, goal below 140/90 Hypertension with congestive heart failure and renal failure ([facility]) 04/14/2023 Hypertensive kidney disease with stage 3a chronic kidney disease ([facility]) 09/17/2020 Per CKD protocol Hyponatremia 03/09/2023 Kidney disease, chronic, stage III (GFR 30-59 ml/min) ([facility]) Kidney stone Lumbar stenosis Nephrolithiasis 12/29/2016 Nocturnal hypoxia 09/01/2019 OA (osteoarthritis) Obesity, morbid (more than 100 lbs over ideal weight or BMI > 40) ([facility]) 04/23/2010 Per Obesity Protocol, #19 ICD-10 update of inactive term Open wound of foot, right, subsequent encounter BERRY (obstructive sleep apnea) Ovarian cancer on left ([facility]) History - s/p surgery & treatment per MICROELECTRONICS TECHNICIAN note on 11/18/23 Ca 125: 68.8 U/mL [...] centimeters in a PAF (paroxysmal atrial fibrillation) ([facility]) Recurrent UTI Sciatica SOB (shortness [...] Capsule by mouth in the morning. Nystatin 480674 UNIT/GM External Powder (Nystop) Apply topically to [...] Denies difficulty swallowing. (+) intermittent nose bleeds - improved with humidification added to O2 Cardiac: Denies chest pain, palpitations, or (+) some BLE edema- stable per child care group leader. No dizziness with standing. Resp: See History Abd: Denies pain, nausea, vomiting, diarrhea, constipation. Neuro: Denies headaches, numbness, tingling, loss of balance Musculoskeletal: Denies muscle pain, cramps, or (+) generalized weakness. Remainder of the ROS as above or is negative / non contributory. Review of Systems: Constitutional: Denies f/s/c. Weight stable. Appetite preserved. HEENT: Denies excessive dry eye, dry mouth or hoarseness. Denies difficulty swallowing. Cardiac: Denies chest pain, palpitations, (+) BLE edema. No dizziness with standing. Resp: See History Abd: Denies pain, nausea, vomiting, diarrhea, constipation. Neuro: Denies headaches, numbness, tingling, (+) gait / balance is poor Musculoskeletal: Denies muscle pain, cramps, or weakness. Remainder of the ROS as above or is negative / non contributory. Exam: BP 122/60 | Pulse 64 | LMP 07/05/2003 | SpO2 94% Comment: 4 LITERS OF OXYGEN General: Alert, no apparent distress, in WC on O2 Eyes: Conjunctiva are pink and non-injected, sclera clear Oropharynx: No exudate,no erythema. Buccal mucosa normal, + tongue is dry Neck: Supple, thyroid normal size, non-tender Lymph: No palpable cervical or supraclavicular lymphadenopathy Cardiac: Regular rate & rhythm, no murmurs Resp: Respirations even and unlabored. Very decreased breath sounds to auscultation, bibasilar crackles. No wheezes or rhonchi auscultated. Pulses: radial=2/4 bilaterally Abdomen: abdomen soft,non-tender,+bowel sounds Extremities: no joint deformities, (+) BLE edema- wrapped. No clubbing, no cyanosis. Neurologic: Alert & oriented x 3 with fluent speech,gait normal. Skin: Skin color normal / pale, warm, dry Labs: AB05/30/2024: pH 7.37, pCO2 63mmHg, pO2 79mmHg Latest Reference Range & Units Most Recent pH, Arterial 7.350 - 7.450 units 7.357 02/17/24 11:34 pCO2, Arterial 35.0 - 45.0 mmHg 67.4 (HH) 02/17/24 11:34 pO2, Arterial 75.0 - 100.0 mmHg 105.0 (H) 02/17/24 11:[address]: 06/23/2023: IMPRESSION: 1. Progression of interstitial and fibrotic disease compared to previous. There is some air trapping on expiratory views 2. Increased ground-glass and reticulonodular markings especially at the lung bases may represent progression of disease versus superimposed atypical or viral infiltrate. Recommend attention on follow-up. CT Chest: 02/15/2024: IMPRESSION: 1. Diffuse interstitial lung disease. No significant change. 2. Cirrhosis with splenomegaly. 3. Pneumobilia. This could be related to previous me. 4. 1.4 cm right adrenal mass. Previous studies not available for direct comparison.Consider 12 month follow-up adrenal CT. (Reference: [facility] PFTs: 12/10/2016 05/13/2023 02/09/2024 FVC 2.59(72%) 1.43(43%) [...] a 2 [address]. Echo: 06/18/2023: Assessment: Chronic hypoxic / hypercapnic RF --> continued improvement of CO2 since switch to iVAPS moved, CO2 still elevated at 63 mm Hg, patient compliance is good, will make some adjustments to settings, reviewed with patient and brother at length need to wear device with any sleep and goal of 8 hours per night. Also reviewed s/s of worsening hypercapnia. DPLD--> presumed CHP, not responsive to steroids Hereditary hemolytic anemia following with Hematology--> stable on daily low dose Prednisone Obesity--> BMI: 35.34 ECHO evidence of mild PH Decreased functional capacity Plan: Adjust NIV settings as follows: Min PS: 12, Max PS: 20, Max EPAP: 10 Continue O2 at 6 lpm at rest and with NIV, 8-10 lpm with exertion. Goal SpO2 88-93%. No ILD specific treatment. Continue prednisone per Hem/Onc. ABG 2 months after change in NIV settings. Hard copy of order provided to patient to take to [facility]. Continue to increase activity as able with use of appropriate O2 support. Follow Up: Return in about 3 months (around 09/13/2024) for Video to Home. | For: Video to Home | Check-out note: Follow up in RF clinic with Dr. Canales in 3 months via tele-med visit. Please cancel ABG that is currently scheduled end of this month. Print AVS with patient instructions. Encouraged patient to call with any further questions or concerns. All of the above was discussed with the patient. All questions answered to apparent satisfaction. I spent a total of 40-54 minutes (exact time 45 mins) on the date of service in preparation, delivery, and documentation of the care provided to Orin Bah excluding any time spent in the performance of separately billed services or time spent by another provider/QHP. TAWANNA Ordonez Pulmonary Medicine [facility] documented in this encounter Plan of Treatment Upcoming Encounters Date Type Department Care Team (Late st Contact Info) Description 06/17/2024 2:30 PM EDT Home Visit [facility] [address] [address] July Diaz, RN [address] [address] 08/22/2024 2:15 PM EDT Office Visit Hematology/Oncology Michelle Moran Jeann[place] [address] [place] [phone] Robert Marion MD [address] [place] [address] 08/29/2024 11:00 AM EDT Office Visit Cardiology, [facility] [address] [facility] [address] Shilpi Bailey PA-C [address] [facility] [place] [place] [address] 10/07/2024 11:50 AM EST Office Visit [place] [address] [place] [phone] Kat Hawthorne, [address] [place] [address] Scheduled Orders Name Type Priority Associated Diagnoses Orde r Schedule BLOOD GAS, ARTERIAL Lab Routine ILD (interstitial lung disease) (HCC) Chronic respiratory failure with hypoxia and hypercapnia (HCC) Expected: 08/13/2024 (Approximate), Expires: 06/13/2025 Scheduled Procedures Name Priority Associated Diagnoses Date/Ti [...] Additional history exists CKD PHOS USE SMARTSET 61876 03/21/202503/09, 03/16/2023, 03/15/2023, Additional history exists Depression Screening 03/21/2025 03/21/2024 Albumin/Creatinine Ratio 03/22/202503/22/2 024, 09/04/2021, 01/27/2019, Additional history exists Diabetic Foot Exam 04/27/2025 04/27/2024 CKD HGB USE SMARTSET 14378 06/06/202506/06, 06/06/2024, 05/24/2024, Additional history exists O2 [...] this encounter Medical Devices Implanted Type Area Rug Cleaning Supervisor Device Identifier Shelf Expiration Date Model / Serial / Lot Cement Bone Simplex Hv & G - [id number] Implanted:Qty: 2 on 01/05/2023 by Harley Nguyen DO at OR [facility] Left: Knee [employer]IA : [employer] 06/08/2024 6195-1-010 / / [id number] Component Femoral Size 5 - [id number] Implanted:Qty: 1 on 01/05/2023 by Harley Nguyen DO at OR [facility] Left: Knee [employer] : [employer] 08/09/2026 5510-F-501 / / [id number] Knee Tria Syetric X3 10x36 - [id number] Implanted:Qty: 1 on 01/05/2023 by Harley Nguyen DO at OR [facility] Left: Knee [employer] : [employer] 09/24/2027 5550-G-360 -E / / [id number] Baseplate Tib 5 Knee - [id number] Implanted:Qty: 1 on 01/05/2023 by Harley Nguyen DO at OR [facility] Left: Knee [employer] : [employer] 12/14/2027 5521-B-500 / / [id number] Knee X3 Ins Pos Cs Sz5 9 - [id number] Implanted:Qty: 1 on 01/05/2023 by Harley Nguyen DO at OR [facility] Left: Knee [employer] : [employer] 11/19/2027 5531-G-509 -E / / [id number] Cement Bone Full Mix Surg Simp - [id number] Implanted:Qty: 1 on 03/03/2023 by Cholo Shah MD at [facility] Right: Knee [employer] : [employer] 05/08/2025 6191-1-010 / / [id number] Knee Tib Comp Poly Krh 8 Lg - [id number] Implanted:Qty: 1 on 03/03/2023 by Cholo Shah MD at OR [facility] Right: Knee [employer] : [employer] 07/19/2023 6485-2-308 / / [id number] Knee Hrhk Mod Rot Hng Bushing - [id number] Implanted:Qty: 1 on 03/03/2023 by Cholo Shah MD at OR [facility] Right: Knee [employer] : [employer] 01/09/2027 6481-2-110 / / [id number] Knee Hrhk Mod Rot Hng Bushing - [id number] Implanted:Qty: 1 on 03/03/2023 by Cholo Shah MD at OR [facility] Right: Knee [employer] : [employer] 11/21/2026 6481-2-110 / / [id number] Knee Stem Crv Mod Mrs 44r210 - [id number] Implanted:Qty: 1 on 03/03/2023 by Cholo Shah MD at OR [facility] Right: Knee [employer] : [employer] 10/02/2026 6485-3-715 / / [id number] Tib Mrh Cross Bear Long Xs/Xl - [id number] Implanted:Qty: 1 on 03/03/2023 by Cholo hSah MD at OR [facility] Right: Knee [employer] : [employer] 12/05/2025 6481-2-103 / / [id number] Knee Tib Bumper Rot Hng Nue - [id number] Implanted:Qty: 1 on 03/03/2023 by Cholo Shah MD at OR [facility] Right: Knee [employer] : [employer] 07/15/2027 6481-2-130 / / [id number] Distal Femoral Component Implanted:Qty: 1 on 03/03/2023 by Cholo Shah MD at OR [facility] Right: Knee [employer] : [employer] 08/23/2023 6495-2-040 / / [id number] Knee Axle Hrhk Rot Mod Hng - [id number] Implanted:Qty: 1 on 03/03/2023 by Cholo Shah MD at OR [facility] Right: Knee [employer] : [employer] 06/30/2027 6481-2-120 / / [id number] Restrictors Med Cmnt L523-9975 - [id number] Implanted:Qty: 1 on 03/03/2023 by Cholo Shah MD at [facility] Right: Knee [employer] : [employer] 11/18/2027 L526-0830 / / Cement Bone Full Mix Surg Simp - [id number] Implanted:Qty: 1 on 03/03/2023 by Cholo Shah MD at [facility] Right: Knee [employer] : [employer] 07/09/2025 6191-1-010 / / [id number] Cement Bone Full Mix Surg Simp - [id number] Implanted:Qty: 1 on 03/03/2023 by Cholo Shah MD at [facility] Right: Knee [employer] : [employer] 06/08/2025 6191-1-010 / / [id number] Cement Bone Full Mix Surg Simp - [id number] Implanted:Qty: 1 on 03/03/2023 by Cholo Shah MD at [place] [facility] Right: Knee [employer] : [employer] 05/08/2025 6191-1-010 / / [id number] Knee Fem Gmrs Dis Std R - [id number] Implanted:Qty: 1 on 03/10/2023 by Cholo Shah MD at [facility] Right: Knee [employer] : [employer] 10/21/2027 6495-2-040 / / [id number] Knee Hrhk Mod Rot Hng Bushing - [id number] Implanted:Qty: 1 on 03/10/2023 by Cholo Shah MD at [place] [facility] Right: Knee [employer] : [employer] 01/29/2027 6481-2-110 / / [id number] Knee Axle Hrhk Rot Mod Hng - [id number] Implanted:Qty: 1 on 03/10/2023 by Cholo Shah MD at OR [facility] Right: Knee [employer] : [employer] 09/15/2027 6481-2-120 / / [id number] Tib Mrh Cross Bear Long Xs/Xl - [id number] Implanted:Qty: 1 on 03/10/2023 by Cholo Shah MD at [place] [facility] Right: Knee [employer] : [employer] 09/30/2027 6481-2-103 / / [id number] Knee Hrhk Mod Rot Hng Bushing - [id number] Implanted:Qty: 1 on 03/10/2023 by Cholo Shah MD at [place] [facility] Right: Knee [employer] : [employer] 04/24/2027 6481-2-110 / / [id number] Knee Tib Tomas Hayden Nue - [id number] Implanted:Qty: 1 on 03/10/2023 by Cholo Shah MD at [place] [facility] Right: Knee [employer]IA : [employer] 10/15/2027 6481-2-130 / / [id number] documented as of this encounter Visit Diagnoses Diagnosis Chronic respiratory failure with hypoxia and hypercapnia (HCC)- Primary ILD (interstitial lung disease) (HCC) Postinflammatory pulmonary fibrosis Obesity (BMI 30-39.9) Obesity, unspecified Pulmonary hypertension (HCC) Other chronic pulmonary heart diseases Nocturnal hypoxia Hypoxemia documented in this encounter Advance Directives Documents on File Type Date Recorded Patient Rope Cutter Expl 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 Care Teams Reference And Instruction Librarian Relationship Specialty Start Date End Date Kat Hawthorne DO [address] [facility] [place] [address] PCP - General Family Medicine 08/20/22 documented as of this encounter
--- OUTSIDE RECORDS SUMMARY | 2024-07-24 20:39 | External Medical Summary ---
Author Name Unknown Address Unknown Organization [facility] [address] [place] [address] Laboratory Report Ordering Provider Test Date Status BOBBY LEMON 06/06/2024 10:27:37 Final Observation Date Value Abnormality Reference (Units ) Status SYNC LEUKOCYTES IN BLOOD BY AUTOMATED COUNT 06/06/2024 10:27:37 8.58 4.00-10.80 (K/uL) Final Neutrophils/100 leukocytes in Blood by Manual count 06/06/2024 10:27:37 77.0 Above high normal 40.0-75.0 (%) Final Lymphocytes/100 leukocytes in Blood by Manual count 06/06/2024 10:27:37 11.0 Below low normal 18.0-42.0 (%) Final Monocytes/100 leukocytes in Blood by Manual count 06/06/2024 10:27:37 8.0 1.0-11.0 (%) Final Eosinophils/100 leukocytes in Blood by Manual count 06/06/2024 10:27:37 1.0 0.0-6.0 (%) Final Metamyelocytes/100 leukocytes in Blood by Manual count 06/06/2024 10:27:37 3.0 Above high normal <=0.0 (%) Final Neutrophils [#/volume] in Blood by Manual count 06/06/2024 10:27:37 6.61 1.80-7.70 (K/uL) Final Lymphocytes [#/volume] in Blood by Manual count 06/06/2024 10:27:37 0.94 Below low normal 1.00-4.80 (K/uL) Final Monocytes [#/volume] in Blood by Manual count 06/06/2024 10:27:37 0.69 0.00-1.10 (K/uL) Final Eosinophils [#/volume] in Blood by Manual count 06/06/2024 10:27:37 0.09 0.00-0.70 (K/uL) Final Metamyelocytes [#/volume] in Blood by Manual count 06/06/2024 10:27:37 0.26 Above high normal <=0.00 (K/uL) Final Nucleated erythrocytes/100 leukocytes [Ratio] in Blood by Automated count 06/06/2024 10:27:37 Final Schistocytes 06/06/2024 10:27:37 Few Abnormal None Seen Final Performing Location [facility] [address] [place] [address]
--- OUTSIDE RECORDS SUMMARY | 2024-07-24 20:39 | External Medical Summary | Summary of Care ---
Author Name Unknown Organization [facility] Address [address] [place] [address] Phone [phone] Care Team Providers Care Veterinary Technician Assistant Name Role Phone MichaelKat king Salma ALARCON Primary Care Provider [phone] Reason for Visit * Reason Comments Outpatient Testing Encounter Details Date Type Department Care Team (Late st Contact Info) Description 06/06/2024 10:30 AM EDT Laboratory Laboratory [facility] [place] [address] [place] [id number] [place], [address] [place] [address] Anemia in other chronic diseases classified elsewhere; [...] by mouth in the morning. Active Nystatin 693212 UNIT/GM External Powder (Nystop) Apply topically to [...] the morning. 90 Tablet 3 04/30/2024 Active LORazepam 0.5 MG Oral Tablet (Ativan)Indications: BILLY (generalized anxiety disorder) Take 1 Tablet by mouth every 8 hours as needed for Anxiety. 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 on 11/18/23 Ca 125: 68.8 [...] mRNA, LNP-s, No Pre serve, 2-Dose Series (Next 1 Interactive) 08/23/2021,01/26/2021,01/05/2021 Pneumococcal Conjugate Vacc, 13 Valent (Prevnar) [...] Description 06/27/2024 4:00 PM EDT Home Visit [facility] [address] [address] July Diaz RN [address] [address] 08/22/2024 2:15 PM EDT Office Visit Hematology/Oncology [facility] [address] [place] [phone] Robert Marion MD [address] [place] [address] 08/29/2024 11:00 AM EDT Office Visit Cardiology, [facility] [address] [place] [address] Shilpi Bailey PA-C [address] [place] [address] 10/07/2024 11:50 AM EST Office Visit [facility] [address] [place] [phone] Kat Hawthorne DO [address] [place] [address] Pending Results Name Type Priority Associated Diagnoses Date /Time CBC WITH WBC DIFFERENTIAL Lab STAT Anemia in other chronic diseases classified elsewhere Acquired hemolytic anemia (HCC) 06/06/2024 10:27 AM EDT CBC Lab STAT Anemia in other chronic diseases classified elsewhere Acquired hemolytic anemia (HCC) 06/06/2024 10:27 AM EDT DIFFERENTIAL, AUTOMATED Lab STAT Anemia in other chronic diseases classified elsewhere Acquired hemolytic anemia (HCC) 06/06/2024 10:27 AM EDT DIFFERENTIAL, TECHNOLOGIST REVIEW Lab Routine Anemia in other chronic diseases classified elsewhere Acquired hemolytic anemia (HCC) 06/06/2024 10:27 AM EDT Scheduled Procedures Name Priority Associated [...] Additional history exists CKD PHOS USE SMARTSET 02322 03/21/202503/09, 03/16/2023, 03/15/2023, Additional history exists Depression Screening 03/21/2025 03/21/2024 Albumin/Creatinine Ratio 03/22/202503/22/2 024, 09/04/2021, 01/27/2019, Additional history exists Diabetic Foot Exam 04/27/2025 04/27/2024 CKD HGB USE SMARTSET 97725 05/24/202505/24, 05/24/2024, 05/16/2024, Additional history exists O2 ASSESSMENT COMPLETED IN PAST YEAR FOR COPD 05/25/2025 05/25/2024 Lipid Panel 09/03/2027 09/03/2022, 09/09, 08/02/2019, Additional [...] this encounter Medical Devices Implanted Type Area [employer]otive Glazier Device Identifier Shelf Expiration Date Model / Serial / Lot Cement Bone Simplex Hv & G - [id number] Implanted:Qty: 2 on 01/05/2023 by Harley Nguyen DO at OR [facility] Left: Knee [employer]IA : [employer]TH[employer] 06/08/2024 6195-1-010 / / [id number] Component Femoral Size 5 - [id number] Implanted:Qty: 1 on 01/05/2023 by Harley Nguyen DO at OR [facility] Left: Knee [employer] : [employer] 08/09/2026 5510-F-501 / / [id number] Knee Tria Syetric X3 10x36 - [id number] Implanted:Qty: 1 on 01/05/2023 by Harley Nguyen DO at OR [facility] Left: Knee [employer] : [employer] 09/24/2027 5550-G-360 -E / / [id number] Baseplate Tib 5 Knee - [id number] Implanted:Qty: 1 on 01/05/2023 by Harley Nguyen DO at OR [facility] Left: Knee [employer] : [employer] 12/14/2027 5521-B-500 / / [id number] Knee X3 Ins Pos Cs Sz5 9 - [id number] Implanted:Qty: 1 on 01/05/2023 by Harley Nguyen DO at OR [facility] Left: Knee [employer] : [employer] 11/19/2027 5531-G-509 -E / / [id number] Cement Bone Full Mix Surg Simp - [id number] Implanted:Qty: 1 on 03/03/2023 by Cholo Shah MD [place] [facility] [place] Knee [employer] : [employer] 05/08/2025 6191-1-010 / / [id number] Knee Tib Comp Poly Krh 8 Lg - [id number] Implanted:Qty: 1 on 03/03/2023 by Cholo Shah MD [place] [facility] [place] Knee [employer] : [employer] 07/19/2023 6485-2-308 / / [id number] Knee Hrhk Mod Rot Hng Bushing - [id number] Implanted:Qty: 1 on 03/03/2023 by Cholo Shah MD [place] [facility] [place]: Knee [employer] : [employer] 01/09/2027 6481-2-110 / / [id number] Knee Hrhk Mod Rot Hng Bushing - [id number] Implanted:Qty: 1 on 03/03/2023 by Cholo Shah MD [place] [facility] [place]: Knee [employer] : [employer] 11/21/2026 6481-2-110 / / [id number] Knee Stem Crv Mod Mrs 01c334 - [id number] Implanted:Qty: 1 on 03/03/2023 by Cholo Shah MD [place] [facility] [place]: Knee [employer] : [employer] 10/02/2026 6485-3-715 / / [id number] Tib Mrh Cross Bear Long Xs/Xl - [id number] Implanted:Qty: 1 on 03/03/2023 by Cholo Shah MD [place] [facility] [place]: Knee [employer] : [employer] 12/05/2025 6481-2-103 / / [id number] Knee Tib Bumper Rot Hng Nue - [id number] Implanted:Qty: 1 on 03/03/2023 by Cholo Shah MD [place] [facility] [place]: Knee [employer] : [employer] 07/15/2027 6481-2-130 / / [id number] Distal Femoral Component Implanted:Qty: 1 on 03/03/2023 by Cholo Shah MD [place] [facility] [place]: Knee [employer] : [employer] 08/23/2023 6495-2-040 / / [id number] Knee Axle Hrhk Rot Mod Hng - [id number] Implanted:Qty: 1 on 03/03/2023 by Cholo Shah MD [place] [facility] [place]: Knee [employer] : [employer] 06/30/2027 6481-2-120 / / [id number] Restrictors Med Cmnt D618-3433 - [id number] Implanted:Qty: 1 on 03/03/2023 by Cholo Shah MD [place] [facility] [place]: Knee [employer] : [employer]TH[employer] 11/18/2027 [id number] / / Cement Bone Full Mix Surg Simp - [id number] Implanted:Qty: 1 on 03/03/2023 by Cholo Shah MD [place] [facility] [place]: Knee [employer] : [employer] 07/09/2025 6191-1-010 / / [id number] Cement Bone Full Mix Surg Simp - [id number] Implanted:Qty: 1 on 03/03/2023 by Cholo Shah MD [place] [facility] [place]: Knee [employer] : ORTH[employer] 06/08/2025 6191-1-010 / / [id number] Cement Bone Full Mix Surg Simp - [id number] Implanted:Qty: 1 on 03/03/2023 by Cholo Shah MD [place] [facility] [place]: Knee [employer] : ORTH[employer] 05/08/2025 6191-1-010 / / [id number] Knee Fem Gmrs Dis Std R - [id number] Implanted:Qty: 1 on 03/10/2023 by Cholo Shah MD [place] [facility] [place]: Knee [employer] : [employer] 10/21/2027 6495-2-040 / / [id number] Knee Hrhk Mod Rot Hng Bushing - [id number] Implanted:Qty: 1 on 03/10/2023 by Cholo Shah MD [place] [facility] [place]: Knee [employer] : ORTH[employer] 01/29/2027 6481-2-110 / / [id number] Knee Axle Hrhk Rot Mod Hng - [id number] Implanted:Qty: 1 on 03/10/2023 by Cholo Shah MD [place] [facility] [place]: Knee [employer] : [employer]TH[employer] 09/15/2027 6481-2-120 / / [id number] Tib Mrh Cross Bear Long Xs/Xl - [id number] Implanted:Qty: 1 on 03/10/2023 by Cholo Shah MD [place] [facility] [place]: Knee [employer] : ORTH[employer] 09/30/2027 6481-2-103 / / [id number] Knee Hrhk Mod Rot Hng Nargis - [id number] Implanted:Qty: 1 on 03/10/2023 by Cholo Shah MD [place] [facility] [place]: Knee [employer] : ORTHOPAEDICS 04/24/2027 6481-2-110 / / [id number] Knee Tib Bumper Rot Hng Nue - [id number] Implanted:Qty: 1 on 03/10/2023 by Cholo Shah MD [place] [facility] [place] Knee [employer] : ORTHOPA[employer] 10/15/2027 6481-2-130 / / [id number] documented as of this encounter Visit Diagnoses Diagnosis Anemia in other chronic diseases classified elsewhere Acquired hemolytic anemia (HCC) Acquired hemolytic anemia, unspecified documented in this encounter Advance Directives Documents on File Type Date Recorded Patient Diamond Cleaver Expl 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 Care Teams Veterinary Technician Assistant Relationship Specialty Start Date End Date Kat Hawthorne DO [address] [place] [facility] [address] PCP - General Family Medicine 08/20/22 documented as of this encounter
--- OUTSIDE RECORDS SUMMARY | 2024-07-24 20:39 | External Medical Summary ---
Author Name Unknown Address Unknown Organization [facility] [place] [address] Laboratory Report Ordering Provider Test Date Status BOBBY LEMON 06/06/2024 10:27:37 Final Observation Date Value Abnormality Reference (Units ) Status WBC, Total 06/06/2024 10:27:37 8.58 4.00-10.8 0 (K/uL) Final RBC 06/06/2024 10:27:37 3.51 3.85-5.15 (M/uL) Final Hemoglobin 06/06/2024 10:27:37 9.8 Below low normal 12 .0-15.3 (g/dL) Final HCT 06/06/2024 10:27:37 33.7 Below low normal 36. 0-45.2 (%) Final MCV 06/06/2024 10:27:37 96.0 81.5-97.5 (fL) Final MCH 06/06/2024 10:27:37 27.9 27.0-34.0 (pg) Final MCHC 06/06/2024 10:27:37 29.1 32.0-36.0 (g/dL) Final RDW 06/06/2024 10:27:37 21.7 11.5-15.5 (%) Final Platelets 06/06/2024 10:27:37 118 Below low normal 140 -400 (K/uL) Final MPV 06/06/2024 10:27:37 10.3 6.6-11.1 ( fL) Final Performing Location [facility] [place] [address]
--- NOTE | 2024-07-24 20:44 | Emergency Department Note ---
Impression & Plan Acute on chronic respiratory failure with hypoxia and hypercapnia, Pneumonia, Sepsis, Fall ED Provider Note NAME: MICHELLE ARELLANO AGE: 68 SEX: F : 1955 ARRIVES VIA: Ambulance INFORMANT: Patient ED PROVIDER(S): Darrell Huff MD CHIEF COMPLAINT: Sepsis, PNA PLAN: Disposition: Admit MEDICAL DECISION MAKING: The patient is a pleasant 68-year-old woman with a past medical history of chronic respiratory failure on oxygen, hypersensitivity pneumonitis, CHF, pulmonary hypertension, paroxysmal atrial fibrillation, BERRY, CKD, spinal stenosis, who presents to emergency department via EMS for evaluation of acute on chronic respiratory failure in the setting of the patient falling in her bathroom when she attempted to get her pants up and lost her balance falling forward and was unable to get up. The patient was found to be in the 80s on her 7 L nasal cannula and was placed on nonrebreather gradually improving to the low 90s. Patient reports she has felt ill over the past week with generalized bodyaches, feverishness, cough but denies productive sputum. She denies any urinary symptoms. On evaluation, the patient is ill-appearing, uncomfortable but no distress, afebrile with O2 saturation in the mid 90s on nonrebreather but quickly desaturating when was transition to Ventimask. She has wheezes of bilateral lung alexander. Patient appears euvolemic to slightly hypervolemic. EKG without overt acute ischemia. Chest x-ray with patchy bilateral airspace opacities similar to prior which may reflect chronic lung disease though pneumonia is not excluded per my preliminary independent or potation. WBC within normal limits with neutrophil predominance but no left shift, nonspecific. H/H 9.1/32 similar to prior. Platelets 1 23K, similar to prior. VBG with pCO2 of 80 and pH of 7.3 similar to prior in the setting of chronic hypercapnia and reflected with bicarb of 39 on chemistry. Otherwise no better metabolic acidosis. Lactic acid was 2.1 improving to 1.0 after initial treatment. Electrolytes and LFTs unremarkable. High-sensitivity troponin 21, nonspecific. BNP is 360 increased from prior values and nonspecific. Patient reports her weight has been stable. Procalcitonin is not elevated. Lipase is normal. Respiratory BioFire was negative. CT of the head negative for acute abnormalities per my preliminary independent or potation. CT of the chest and CT of the pelvis were also ordered. [facility] the patient for admission. CT of the head subsequent negative for acute normalities. CT of the chest to further characterize his lung findings and is consistent with multifocal pneumonia. CT abd pelvis negative for acute intra-abdominal process, Incidental findings noted. Empiric treatment initiated with IV ceftriaxone and doxycycline. Patient was also treated with Solu-Medrol and DuoNeb for component bronchospasm. IV fluids deferred given hypervolemic appearance. Further management per admitting team. Triage Nursing notes reviewed and agree them. Prior/external medical records reviewed Vital Signs: reviewed Differential diagnosis: Sepsis, UTI, pneumonia, metabolic, electrolyte abnormalities, cardiac sources, intracerebral event, toxicologic, neurologic, as well as other pathologies. ER treatment provided: See below. Diagnostics interpreted by me: ECG: Normal sinus rhythm, 70 bpm, LVH, no overt ST elevation or depression, QTc 451, QRS 90. Cardiac Monitoring: An order for continuous cardiac monitoring was placed and demonstrated Normal sinus rhythm, 70 bpm, no ectopy. Laboratory studies: See below Imaging studies: See below Consultation(s): [facility] the [facility] for admission. HPI: The patient is a pleasant 68-year-old woman with a past medical history of chronic respiratory failure on oxygen, hypersensitivity pneumonitis, CHF, pulmonary hypertension, paroxysmal atrial fibrillation, BERRY, CKD, spinal stenosis, who presents to emergency department via EMS for evaluation of acute on chronic respiratory failure in the setting of the patient falling in her bathroom when she attempted to get her pants up and lost her balance falling forward and was unable to get up. The patient was found to be in the 80s on her 7 L nasal cannula and was placed on nonrebreather gradually improving to the low 90s. Patient reports she has felt ill over the past week with generalized bodyaches, feverishness, cough but denies productive sputum. She denies any urinary symptoms. ROS: See above HPI for pertinent positives & negatives. A total of 10 systems reviewed and were otherwise negative. VITALS:See Below PHYSICAL EXAMINATION: GENERAL: Awake, alert, ill-appearing, in no distress, BMI HENT: Normocephalic, atraumatic. Oropharynx unremarkable. EYES: Normal conjunctiva. Sclera non-icteric. NECK: Supple. No nuchal rigidity. FROM. No JVD. RESPIRATORY: Wheezes of bilateral lung alexander with mild increased work of breathing. CARDIAC: Regular rate, normal rhythm. Extremities warm and well perfused. Pulses equal. ABDOMEN: Soft, non-distended. No tenderness to palpation. No rebound or guarding. No masses. MUSCULOSKELETAL: Chest examination reveals no tenderness. The back is symmetrical on inspection without obvious abnormality. There is no CVA tenderness to palpation. No joint edema. LOWER EXTREMITIES: Calves are equal size bilaterally and non-tender. 1+ bilateral lower extremity pitting edema. Edema. No discoloration. NEURO: Normal sensorium. No sensory or motor deficits noted. SKIN: No rash or jaundice noted. ED COURSE: Critical Care: I have personally spent greater than 35 minutes of critical care time in the direct management of this patient. This includes bedside care, interpretation of diagnostic studies, and testing, discussion with consultants, patient, and family members, and other required patient management activities. This 35 minutes is in excess of all separately billable procedures. 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 WELSH). 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: underwent procedure without any complications; was monitored for 6 doses of sotalol before being discharged home Liver cirrhosis secondary to WEIR Paroxysmal atrial fibrillation Chronic anemia Obesity, morbid, BMI 40.0-49.9 (Chronic) Ovarian cancer (Acute) BERRY (obstructive sleep apnea) Chronic hypoxemic respiratory failure (Acute) Interstitial lung disease (Acute) Sick sinus syndrome BERRY (obstructive sleep apnea) On nocturnal O2 at 2lpm- could not tolerate CPAP per records Atrial fibrillation No AC due to GI bleed and anemia GERD (gastroesophageal reflux disease) (Chronic) HTN (hypertension) (Chronic) CKD (chronic kidney disease), stage III (Chronic) follows with Dr. Lepe H/O cystoscopy (Chronic) H/O gastric bypass (Chronic) "1980, reversed in same year" H/O arthroscopy of knee (Chronic) History of herniorrhaphy (Chronic) VENTRAL HERNIA REPAIR= 04/27/17= GRADE VIEW 2, CLEMENTE#2, ETT 7.0 AT [facility] Anemia (Chronic) hx blood transfusions Hgb baseline 8-9 Spinal stenosis (Chronic) HX On home oxygen therapy (Chronic) 3L/MIN NC PRN SOB Medical History Supracondylar fracture of right femur Choledocholithiasis with obstruction S/p ERCP with stent placement on 01/20/23 Obesity (BMI 30-39.9) Ovarian cancer dx'd 07/2020 - surgery + chemo Osteoarthritis Anxiety and depression Restless leg syndrome History of kidney stones History of renal calculi History of recurrent UTI (urinary tract infection) Spinal stenosis of lumbar region History of blood transfusion 05/2020 Kidney stones Irritable bowel syndrome (IBS) Anxiety Depression Ventral hernia Surgical History S/P left knee arthroscopy History of vascular access device removed History of ERCP (~09/2020) History of appendectomy (~09/07/20) History of total hysterectomy with bilateral salpingo-oophorectomy (BSO) (~09/07/20) @ [facility] [place] with appy at same time History of esophagogastroduodenoscopy (EGD) History of colonoscopy [place] teeth removed S/P adenoidectomy Family History Mother Scleroderma Lupus Family history of reaction to anesthesia nausea Father Coronary heart disease Heart disease Brother Fatty liver Aunt Cancer unspecified Grandfather (Paternal) Heart disease Grandfather (Maternal) Lung disease Grandmother (Paternal) Stroke Grandmother (Maternal) Family history of diabetes mellitus Social History Smoking Status: Never smoker Tobacco Type: Cigarettes Age Started Using Tobacco: 26; Age Quit Using Tobacco: 38; Cigarettes Per Day: 10-20; Second Hand Exposure: No; Do You Dip or Chew Tobacco: No; Hx Alcohol Use: No Hx Substance Use: No Preferred Language: Libyan Communication Ability: Effective Visual Impairment: No Limitations Equipment Associate Required: No Beliefs That Will Affect Care: None marital status: Current Living Situation: Alone Current Living Situation Comment: home health current occupational status: retired How many Children do You have: 0 Feels Safe at Home: Yes Diet: regular during the past year weight has: remained stable Assistive Devices: Oxygen - Continuous, Wheelchair and Other Allergies Allergies Allergy/AdvReac Type Severity Reaction Status Date / Time levofloxacin Allergy Intermediate LE Verified 03/22/24 10:18 swelling and blistering paclitaxel [From Taxol] Allergy Intermediate facial Verified 03/22/24 10:18 flushing, bradycardia doxorubicin AdvReac Severe Hypoxia Verified 03/22/24 10:18 clindamycin AdvReac Intermediate PT Verified 03/22/24 10:18 CONTRACTED C-DIFF shellfish derived AdvReac Intermediate NAUSEA,DIARRHEA, Verified 03/22/24 10:18 VOMITING adhesive AdvReac Mild SKIN Verified 03/22/24 10:18 BLISTERS SOME TIMES Home Meds Home Medications Medication Instructions Recorded Confirmed amlodipine 5 mg tablet 5 mg PO DAILY 07/25/24 07/25/24 amoxicillin 500 mg capsule 2,000 mg PO UD 07/25/24 07/25/24 budesonide 0.5 mg/2 mL suspension 0.5 mg inhalation DAILYBB 07/25/24 07/25/24 for nebulization bumetanide 2 mg tablet 2 mg PO BID 07/25/24 07/25/24 cyclobenzaprine 5 mg tablet 5 mg PO BID PRN muscle spasms 07/25/24 07/25/24 fosfomycin tromethamine 3 gram 3 g PO WK 07/25/24 07/25/24 oral packet gabapentin 300 mg capsule 300 mg PO TID 07/25/24 07/25/24 hydroxyzine HCl 25 mg tablet 25 mg PO HS PRN Itching 07/25/24 07/25/24 ipratropium 0.5 mg-albuterol 3 mg 3 ml inhalation QID PRN sob 07/25/24 07/25/24 (2.5 mg base)/3 mL nebulization soln lorazepam 0.5 mg tablet 0.5 mg PO TID PRN Anxiety 07/25/24 07/25/24 metformin 500 mg tablet,extended 500 mg PO DAILY 07/25/24 07/25/24 release 24 hr montelukast 10 mg tablet 10 mg PO DAILY 07/25/24 07/25/24 omeprazole 20 mg capsule,delayed 20 mg PO BID 07/25/24 07/25/24 release prednisone 10 mg tablet 10 mg PO DAILY 07/25/24 07/25/24 sertraline 100 mg tablet 100 mg PO DAILY 07/25/24 07/25/24 sotalol 80 mg tablet 80 mg PO BID 07/25/24 07/25/24 Results & Data (ED) Vital Signs Vital Signs - 24 hr 07/24/24 20:24 07/24/24 20:30 07/24/24 20:30 Temperature 36.9 C Temperature Source Oral Pulse Rate 79 Pulse Rate [Left] Pulse Rhythm Pulse Rhythm [Left] Pulse Strength [Left] Respiratory Rate 13 18 Respiratory Effort / Characteristics Non-Labored Spontaneous Spontaneous Respiratory Depth Normal Deep Respiratory Pattern Regular Blood Pressure 140/88 Blood Pressure [Left Arm] 140/88 Blood Pressure Mean 105 Blood Pressure Mean [Left Arm] 105 Pulse Oximetry 97 91 Oxygen Delivery Method Room Air Non-rebreather Oxygen Flow Rate 15 Fraction of Inspired Oxygen Sepsis Recent Fever Within 48 Hours No Sepsis New/Unexplained Change in Mental Status No Sepsis Action Taken by Nursing No Action Required Oxygen Flow Rate - Titration Pulse Oximetry Post Tiitration 07/24/24 20:35 07/24/24 20:36 07/24/24 20:38 Temperature Temperature Source Pulse Rate Pulse Rate [Left] Pulse Rhythm Pulse Rhythm [Left] Pulse Strength [Left] Respiratory Rate Respiratory Effort / Characteristics Respiratory Depth Respiratory Pattern Blood Pressure Blood Pressure [Left Arm] Blood Pressure Mean Blood Pressure Mean [Left Arm] Pulse Oximetry 91 64 L 98 Oxygen Delivery Method Oxymask Non-rebreather Oxymask Non-rebreather Non-rebreather Oxygen Flow Rate 15 10 15 Fraction of Inspired Oxygen Sepsis Recent Fever Within 48 Hours Sepsis New/Unexplained Change in Mental Status Sepsis Action Taken by Nursing Oxygen Flow Rate - Titration 10 15 Pulse Oximetry Post Tiitration 54 L 88 L 07/24/24 20:42 07/24/24 20:54 07/24/24 22:24 Temperature Temperature Source Pulse Rate 78 Pulse Rate [Left] 78 Pulse Rhythm Regular Pulse Rhythm [Left] Regular Pulse Strength [Left] Normal Respiratory Rate 20 Respiratory Effort / Characteristics Non-Labored Spontaneous Respiratory Depth Normal Respiratory Pattern Regular Blood Pressure Blood Pressure [Left Arm] 146/67 H Blood Pressure Mean Blood Pressure Mean [Left Arm] 93 Pulse Oximetry 95 93 Oxygen Delivery Method Oxymask Oxymask Oxygen Flow Rate 15 Fraction of Inspired Oxygen Sepsis Recent Fever Within 48 Hours Sepsis New/Unexplained Change in Mental Status Sepsis Action Taken by Nursing Oxygen Flow Rate - Titration Pulse Oximetry Post Tiitration 07/25/24 00:00 07/25/24 00:15 Temperature Temperature Source Pulse Rate 75 Pulse Rate [Left] 81 Pulse Rhythm Pulse Rhythm [Left] Regular Pulse Strength [Left] Normal Respiratory Rate 20 19 Respiratory Effort / Characteristics Non-Labored Spontaneous Spontaneous Respiratory Depth Normal Normal Respiratory Pattern Regular Blood Pressure Blood Pressure [Left Arm] Blood Pressure Mean Blood Pressure Mean [Left Arm] Pulse Oximetry 95 97 Oxygen Delivery Method Oxymask BiPAP Oxygen Flow Rate Fraction of Inspired Oxygen 70 Sepsis Recent Fever Within 48 Hours Sepsis New/Unexplained Change in Mental Status Sepsis Action Taken by Nursing Oxygen Flow Rate - Titration Pulse Oximetry Post Tiitration Laboratory Data Attestation: I reviewed the patient's lab results. 07/24/24 20:43 07/24/24 20:43 Lab Results 07/24/24 07/24/24 07/24/24 Range/Units 20:43 21:37 22:59 WBC 9.73 (4.8-10.8) K/ul RBC 3.37 L (4.20-5.40) M/uL Hgb 9.1 L (12.0-16.0) g/dl Hct 32.2 L (37.0-47.0) % MCV 95.5 (80.0-100.0) fL MCH 27.0 (25.0-34.0) pg MCHC 28.3 L (32.0-36.0) g/dL RDW Std Deviation 81.6 H (36.4-46.3) fL RDW Coeff of Patrica 23.2 H (11.5-14.5) % Plt Count 123 L (130-400) K/uL Immature Gran % (Auto) 1.7 % Neut % (Auto) 88.0 % Lymph % (Auto) 3.7 % Bland % (Auto) 6.0 % Eos % (Auto) 0.4 % Baso % (Auto) 0.2 % Neut # (Auto) 8.56 H (1.40-6.50) K/uL Lymph # (Auto) 0.36 L (1.20-3.40) K/uL Bland # (Auto) 0.58 (0.11-0.59) K/uL Eos # (Auto) 0.04 (0.00-0.50) K/uL Baso # (Auto) 0.02 (0.00-0.20) K/uL Immature Gran # (Auto) 0.17 (0.01-0.20) K/uL Absolute Nucleated RBC 0.06 (0.00-0.12) K/uL Nucleated RBC % (auto) 0.6 % Polychromasia 1+ Basophilic Stippling 1+ Anisocytosis Present Tear Drop Cells 1+ Stomatocytes 2+ PT Cancelled INR Cancelled VBG pH 7.33 L (7.36-7.41) VBG pCO2 80 H (38-50) mmHg VBG pO2 47 mmHg VBG HCO3 42 mmol/L VBG O2 Saturation 76.2 % VBG Base Excess 12.5 mEq/L Sodium 139 (136-145) mmol/L Potassium 4.5 (3.5-5.1) mmol/L Chloride 94 L (98-107) mmol/L Carbon Dioxide 39 H (21-32) mmol/L Anion Gap 6 (3-11) BUN 28 H (6-23) mg/dl Creatinine 0.89 (0.6-1.2) mg/dl Est Cr Clr Drug Dosing Not Reportable Est GFR ( Amer) 76.1 ml/min Est GFR (Non-Af Amer) 65.7 ml/min BUN/Creatinine Ratio 31.5 H (10-20) Glucose 203 H (70-99(Fasting)) mg/dl Lactate 2.1 H* 1.0 (0.4-2.0) mmol/L Calcium 9.4 (8.6-10.3) mg/dl Magnesium 1.8 (1.7-2.4) mg/dl Total Bilirubin 0.8 (0.2-1.0) mg/dl Direct Bilirubin 0.2 (0-0.2) mg/dl AST 22 (13-39) U/L ALT 23 (7-52) U/L Alkaline Phosphatase 92 (34-104) U/L Troponin I High Sens 21.3 H 26.3 H (0-14) pg/ml B-Natriuretic Peptide 360 H (0-100) pg/ml Total Protein 7.3 (6.0-8.3) gm/dl Albumin 4.3 (3.4-5.0) gm/dl Lipase 14 (11-82) U/L Procalcitonin 0.23 (0-0.5) ng/ml Adenovirus (PCR) Not Detected (NotDetected) B. pertussis DNA (PCR) Not Detected (NotDetected) B.parapertussis DNA PCR Not Detected (NotDetected) C. pneumoniae DNA (PCR) Not Detected (NotDetected) Coronavirus OC43 (PCR) Not Detected (NotDetected) Coronavirus HKU1 (PCR) Not Detected (NotDetected) Coronavirus 229E (PCR) Not Detected (NotDetected) SARS-CoV-2 (PCR) Not Detected (NotDetected) Coronavirus NL63 (PCR) Not Detected (NotDetected) Human Metapneumovir PCR Not Detected (NotDetected) Influenza Type A (PCR) Not Detected (NotDetected) Influenza Type B (PCR) Not Detected (NotDetected) M. pneumoniae (PCR) Not Detected (NotDetected) Parainfluenza 1 (PCR) Not Detected (NotDetected) Parainfluenza 2 (PCR) Not Detected (NotDetected) Parainfluenza 3 (PCR) Not Detected (NotDetected) Parainfluenza 4 (PCR) Not Detected (NotDetected) RSV (PCR) Not Detected (NotDetected) Entero/Rhino (PCR) Not Detected (NotDetected) 07/24/24 Range/Units 23:42 WBC (4.8-10.8) K/ul RBC (4.20-5.40) M/uL Hgb (12.0-16.0) g/dl Hct (37.0-47.0) % MCV (80.0-100.0) fL MCH (25.0-34.0) pg MCHC (32.0-36.0) g/dL RDW Std Deviation (36.4-46.3) fL RDW Coeff of Patrica (11.5-14.5) % Plt Count (130-400) K/uL Immature Gran % (Auto) % Neut % (Auto) % Lymph % (Auto) % Bland % (Auto) % Eos % (Auto) % Baso % (Auto) % Neut # (Auto) (1.40-6.50) K/uL Lymph # (Auto) (1.20-3.40) K/uL Bland # (Auto) (0.11-0.59) K/uL Eos # (Auto) (0.00-0.50) K/uL Baso # (Auto) (0.00-0.20) K/uL Immature Gran # (Auto) (0.01-0.20) K/uL Absolute Nucleated RBC (0.00-0.12) K/uL Nucleated RBC % (auto) % Polychromasia Basophilic Stippling Anisocytosis Tear Drop Cells Stomatocytes PT 11.6 INR 1.1 VBG pH (7.36-7.41) VBG pCO2 (38-50) mmHg VBG pO2 mmHg VBG HCO3 mmol/L VBG O2 Saturation % VBG Base Excess mEq/L Sodium (136-145) mmol/L Potassium (3.5-5.1) mmol/L Chloride (98-107) mmol/L Carbon Dioxide (21-32) mmol/L Anion Gap (3-11) BUN (6-23) mg/dl Creatinine (0.6-1.2) mg/dl Est Cr Clr Drug Dosing Est GFR ( Amer) ml/min Est GFR (Non-Af Amer) ml/min BUN/Creatinine Ratio (10-20) Glucose (70-99(Fasting)) mg/dl Lactate (0.4-2.0) mmol/L Calcium (8.6-10.3) mg/dl Magnesium (1.7-2.4) mg/dl Total Bilirubin (0.2-1.0) mg/dl Direct Bilirubin (0-0.2) mg/dl AST (13-39) U/L ALT (7-52) U/L Alkaline Phosphatase (34-104) U/L Troponin I High Sens (0-14) pg/ml B-Natriuretic Peptide (0-100) pg/ml Total Protein (6.0-8.3) gm/dl Albumin (3.4-5.0) gm/dl Lipase (11-82) U/L Procalcitonin (0-0.5) ng/ml Adenovirus (PCR) (NotDetected) B. pertussis DNA (PCR) (NotDetected) B.parapertussis DNA PCR (NotDetected) C. pneumoniae DNA (PCR) (NotDetected) Coronavirus OC43 (PCR) (NotDetected) Coronavirus HKU1 (PCR) (NotDetected) Coronavirus 229E (PCR) (NotDetected) SARS-CoV-2 (PCR) (NotDetected) Coronavirus NL63 (PCR) (NotDetected) Human Metapneumovir PCR (NotDetected) Influenza Type A (PCR) (NotDetected) Influenza Type B (PCR) (NotDetected) M. pneumoniae (PCR) (NotDetected) Parainfluenza 1 (PCR) (NotDetected) Parainfluenza 2 (PCR) (NotDetected) Parainfluenza 3 (PCR) (NotDetected) Parainfluenza 4 (PCR) (NotDetected) RSV (PCR) (NotDetected) Entero/Rhino (PCR) (NotDetected) Administered Medications Discontinued Medications Albuterol (Albut/Ipratrop 3mg/0.5mg Neb 3 Ml Vial) 3 ml NEB NOW STA; Protocol Stop: 07/24/24 20:43 Last Admin: 07/24/24 20:59 Dose: 3 ml Documented By: QI Ceftriaxone Sodium (Rocephin) 2,000 mg in 50 mls @ 100 mls/hr IV NOW STA Stop: 07/24/24 23:52 Last Infusion: 07/25/24 00:25 Dose: Infused Documented By: Admin: 07/24/24 23:46 Dose: 100 mls/hr Documented By: QI Doxycycline Hyclate 100 mg/ (Dextrose) 100 mls @ 50 mls/hr IV NOW STA Stop: 07/25/24 01:22 Last Infusion: 07/25/24 02:21 Dose: Infused Documented By: Admin: 07/25/24 00:05 Dose: 50 mls/hr Documented By: QI Piperacillin Sod/Tazobactam Sod (Zosyn) 4.5 gm in 100 mls @ 200 mls/hr IV NOW STA Stop: 07/25/24 02:06 Last Admin: 07/25/24 02:24 Dose: 200 mls/hr Documented By: QI Ioversol (Optiray 320 125ml) 119 ml IV ONCE ONE Stop: 07/24/24 22:21 Last Admin: 07/24/24 22:20 Dose: 119 ml Documented By: LUIS Methylprednisolone (Methylprednisolone 125 Mg/2 Ml Vial) 125 mg IV NOW STA Stop: 07/24/24 20:43 Last Admin: 07/24/24 20:59 Dose: 125 mg Documented By: QI Imaging Data Radiologist's Impression: Chest CTA 07/24/24 21:29 Exam(s): CTA CHEST IV Amt: 119 ml optiray 320 EXAM: CT Angiography Chest With Intravenous Contrast CLINICAL HISTORY: Reason for exam: hypoxia, r/o PE. TECHNIQUE: Axial computed tomographic angiography images of the chest with intravenous contrast. CTDI is 33.01 mGy and DLP is 1692.92 mGy-cm. Automated exposure control was utilized for the study. A dose lowering technique was utilized adhering to the principles of ALARA. MIP reconstructed images were created and reviewed. COMPARISON: No relevant prior studies available. FINDINGS: Pulmonary arteries: Unremarkable. No pulmonary embolism. Aorta: Atherosclerotic changes of the aorta. No thoracic aortic aneurysm. Lungs: Mild ground-glass airspace attenuation with patchy consolidations, concerning for multilobar pneumonia. Pleural space: See below. Heart: Cardiomegaly. No significant pericardial effusion. No evidence of RV dysfunction. Bones/joints: Degenerative changes of the spine. No acute fracture. No dislocation. Soft tissues: Unremarkable. Lymph nodes: Unremarkable. No enlarged lymph nodes. Gallbladder and bile ducts: Cholecystectomy. Spleen: Splenomegaly measures up to 19.1 cm. Stomach and bowel: Ramiro-en-Y gastric bypass. Trace RIGHT pleural effusion. Tubes, lines and devices: Pacemaker leads. IMPRESSION: Mild ground-glass airspace attenuation with patchy consolidations, concerning for multilobar pneumonia. Electronically signed by: David Mixon MD 07/25/24 00:[address] 07/24/24 21:29 Exam(s): CT HEAD Without Contrast EXAM: CT Head Without Intravenous Contrast CLINICAL HISTORY: Reason for exam: fall, weakness. TECHNIQUE: Axial computed tomography images of the head/brain without intravenous contrast. CTDI is 36.9 mGy and DLP is 546.36 mGy-cm. Automated exposure control was utilized for the study. A dose lowering technique was utilized adhering to the principles of ALARA. COMPARISON: No relevant prior studies available. FINDINGS: No acute intracranial hemorrhage. No midline shift or mass effect. The territorial moore-white matter differentiation is maintained throughout. The ventricles and sulci are commensurate with age. The visualized orbits appear grossly unremarkable. The calvarium is intact. The visualized paranasal sinuses and mastoid air cells are grossly clear. IMPRESSION: No acute intracranial hemorrhage, midline shift, or mass effect. Electronically signed by: David Mixon MD 07/25/24 00:20 AM Abdomen/Pelvis CT 07/24/24 21:31 Exam(s): CT ABDOMEN + PELVIS With Contrast IV Amt: 119 ml optiray 320 EXAM: CT Abdomen and Pelvis With Intravenous Contrast CLINICAL HISTORY: Reason for exam: sepsis, ?uti. TECHNIQUE: Axial computed tomography images of the abdomen and pelvis with intravenous contrast. CTDI is 33.01 mGy and DLP is 1692.92 mGy-cm. Automated exposure control was utilized for the study. A dose lowering technique was utilized adhering to the principles of ALARA. CONTRAST: Patient received 119 ml optiray 320 of IV contrast COMPARISON: No relevant prior studies available. FINDINGS: Lung bases: Unremarkable. No mass. No consolidation. ABDOMEN: Liver: Hepatic steatosis. Gallbladder and bile ducts: Common bile duct stent. No calcified stones. Pancreas: Unremarkable. No mass. No ductal dilation. Spleen: Splenomegaly measuring up to 16.3 cm. Adrenals: Unremarkable. No mass. Kidneys and ureters: Bilateral nonobstructing renal stones, measuring up to approximately 1.6 cm. Stomach and bowel: Diverticulosis, without acute diverticulitis. No small bowel obstruction. No free intraperitoneal air. PELVIS: Appendix: No findings to suggest acute appendicitis. Bladder: Unremarkable. No mass. Reproductive: Hysterectomy. ABDOMEN and PELVIS: Intraperitoneal space: Unremarkable. No free air. No significant fluid collection. Bones/joints: Degenerative changes of the spine. No acute fracture. No dislocation. Soft tissues: Unremarkable. Vasculature: Atherosclerotic changes of the aorta. No abdominal aortic aneurysm. Lymph nodes: Unremarkable. No enlarged lymph nodes. IMPRESSION: 1. Hepatic steatosis. 2. Common bile duct stent. 3. Splenomegaly measuring up to 16.3 cm. 4. Bilateral nonobstructing renal stones, measuring up to approximately 1.6 cm. 5. Hysterectomy. 6. Diverticulosis, without acute diverticulitis. No small bowel obstruction. No free intraperitoneal air. Electronically signed by: David Mixon MD 07/25/24 01:02 AM Discharge Plan Visit Data Chief Complaint: Shortness of Breath/Dyspnea Stated Complaint: FALL, WEAKNESS, SOB ED Provider: Darrell Huff Discharge Problem: Acute on chronic respiratory failure with hypoxia and hypercapnia, Pneumonia, Sepsis, Fall Patient Disposition: Admitted As Inpatient Discharge Instructions Interventions: ED Discharge Assessment Last Done: 07/25/24 02:04 Discharge Problem: Pneumonia Qualifiers: Pneumonia type: due to unspecified organism Laterality: bilateral Lung location: unspecified part of lung Qualified Code(s): J18.9 - Pneumonia, unspecified organism Sepsis Qualifiers: Sepsis type: sepsis due to unspecified organism Sepsis acute organ dysfunction status: with acute organ dysfunction Severe sepsis acute organ dysfunction type: acute respiratory failure Acute respiratory failure type: with hypoxia Severe sepsis shock status: without septic shock Qualified Code(s): A41.9 - Sepsis, unspecified organism Fall Qualifiers: Encounter type: initial encounter Qualified Code(s): W19.XXXA - Unspecified fall, initial encounter
[2024-07-24] MEDS: methylPREDNISolone 125 MG/2 ML VIAL IV STA (20:59)
[2024-07-24] MEDS: ALBUT/IPRATROP 3MG/0.5MG NEB 3 ML VIAL NEB STA (20:59)
[2024-07-24 21:14] LABS: Hematocrit (blood only) 32.2 % (37.0-47.0); Hemoglobin 9.1 g/dl (12.0-16.0); Mean Corpuscular Hgb Conc 28.3 g/dL (32.0-36.0); Mean Corpuscular Volume 95.5 fL (80.0-100.0); Nucleated RBC # (auto) 0.06 K/uL (0.00-0.12); Nucleated RBC % (auto) 0.6 %; Platelet Count 123 K/uL (130-400); RDW Coefficient of Variation 23.2 % (11.5-14.5); RDW Standard Deviation 81.6 fL (36.4-46.3); Red Blood Count 3.37 M/uL (4.20-5.40); White Blood Count 9.73 K/ul (4.8-10.8)
[2024-07-24 21:25] LABS: Alanine Aminotransferase 23 U/L (7-52); Albumin Level 4.3 gm/dl (3.4-5.0); Alkaline Phosphatase 92 U/L (34-104); Anion Gap 6 (3-11); Aspartate Aminotransferase 22 U/L (13-39); BUN Creatinine Ratio 31.5 (10-20); Bilirubin Direct 0.2 mg/dl (0-0.2); Bilirubin,Total 0.8 mg/dl (0.2-1.0); Blood Urea Nitrogen 28 mg/dl (6-23); Calcium 9.4 mg/dl (8.6-10.3); Carbon Dioxide 39 mmol/L (21-32); Chloride 94 mmol/L (98-107); Est GFR (African American) 76.1 ml/min; Est GFR (Non-African American) 65.7 ml/min; Glucose 203 mg/dl (70-99(Fasting)); Lipase 14 U/L (11-82); Magnesium 1.8 mg/dl (1.7-2.4); Potassium 4.5 mmol/L (3.5-5.1); Sodium 139 mmol/L (136-145); Total Protein 7.3 gm/dl (6.0-8.3)
[2024-07-24 21:32] LABS: Troponin I High Sensitivity 21.3 pg/ml (0-14)
[2024-07-24 21:46] LABS: Base Excess VBG 12.5 mEq/L; HCO3 VBG 42 mmol/L; Oxygen Saturation VBG 76.2 %; PCO2 VBG 80 mmHg (38-50); PO2 VBG 47 mmHg; pH VBG 7.33 (7.36-7.41)
[2024-07-24 21:59] LABS: Adenovirus PCR Not Detected (NotDetected); Bordetella parapertussis PCR Not Detected (NotDetected); Bordetella pertussis PCR Not Detected (NotDetected); Chlamydia pneumoniae PCR Not Detected (NotDetected); Coronavirus 229E PCR Not Detected (NotDetected); Coronavirus CoV-2 (COVID19)PCR Not Detected (NotDetected); Coronavirus HKU1 PCR Not Detected (NotDetected); Coronavirus NL63 PCR Not Detected (NotDetected); Coronavirus OC43PCR Not Detected (NotDetected); Human Metapneumovirus PCR Not Detected (NotDetected); Influenza A PCR Not Detected (NotDetected); Influenza B PCR Not Detected (NotDetected); Mycoplasma pneumoniae PCR Not Detected (NotDetected); Parainfluenza Virus 1 PCR Not Detected (NotDetected); Parainfluenza Virus 2 PCR Not Detected (NotDetected); Parainfluenza Virus 3 PCR Not Detected (NotDetected); Parainfluenza Virus 4 PCR Not Detected (NotDetected); Respiratory Syncytial VirusPCR Not Detected (NotDetected); Rhinovirus/Enterovirus PCR Not Detected (NotDetected)
[2024-07-24] MEDS: OPTIRAY 320 125ml IV ONE (22:20)
[2024-07-24 23:03] LABS: Anisocytosis Present; Basophilic Stippling 1+; Basophils # (auto) 0.02 K/uL (0.00-0.20); Basophils % (auto) 0.2 %; Eosinophils # (auto) 0.04 K/uL (0.00-0.50); Eosinophils % (auto) 0.4 %; Immature Granulocytes # (auto) 0.17 K/uL (0.01-0.20); Immature Granulocytes % (auto) 1.7 %; Lymphocytes # (auto) 0.36 K/uL (1.20-3.40); Lymphocytes % (auto) 3.7 %; Monocytes # (auto) 0.58 K/uL (0.11-0.59); Neutrophils # (auto) 8.56 K/uL (1.40-6.50); Polychromasia 1+; Stomatocytes 2+; Tear Drop Cells 1+
[2024-07-24] MEDS: cefTRIAXone SODIUM 2,000 MG/50 ML BAG IV STA (23:46)
[2024-07-25] MEDS: DOXYCYCLINE HYCLATE 100 MG in DEXTROSE 5% MINI-B 100 ML IV STA (00:05)
--- NOTE | 2024-07-25 00:21 | CT Scan Report ---
Exam(s): CT HEAD Without Contrast EXAM: CT Head Without Intravenous Contrast CLINICAL HISTORY: Reason for exam: fall, weakness. TECHNIQUE: Axial computed tomography images of the head/brain without intravenous contrast. CTDI is 36.9 mGy and DLP is 546.36 mGy-cm. Automated exposure control was utilized for the study. A dose lowering technique was utilized adhering to the principles of ALARA. COMPARISON: No relevant prior studies available. FINDINGS: No acute intracranial hemorrhage. No midline shift or mass effect. The territorial moore-white matter differentiation is maintained throughout. The ventricles and sulci are commensurate with age. The visualized orbits appear grossly unremarkable. The calvarium is intact. The visualized paranasal sinuses and mastoid air cells are grossly clear. IMPRESSION: No acute intracranial hemorrhage, midline shift, or mass effect. Electronically signed by: Daivd Mixon MD 07/25/24 00:20 AM
--- NOTE | 2024-07-25 00:44 | History & Physical Report ---
Date of Service July 25, 2024 Assessment & Plan (1) Acute on chronic respiratory failure with hypoxia and hypercapnia: Plan: 68-year-old female with past medical history significant for chronic respiratory failure with hypoxia, interstitial lung disease, hypersensitivity pneumonitis, obstructive sleep apnea, COPD, morbid obesity, CHF with preserved left ventricular function, paroxysmal atrial fibrillation, tachybradycardia syndrome, paroxysmal atrial tachycardia, status post pacemaker, hypertension, history of secondary esophageal varices without bleeding, pulmonary hypertension, history of CAD, history of GERD with esophagitis, history of choledocholithiasis, hepatic cirrhosis, CKD stage III, osteoarthrosis, acquired hemolytic anemia, BILLY, history of ovarian cancer, history of kidney stones, history of unspecified mood disorder, who lives alone at home and is wheelchair-bound and on oxygen 6 to 7 L at home is brought in because of fall and hypoxia. Patient states last couple of days feeling weak and loss of appetite. And feeling feverish. And feeling short of breath. Her oxygen saturation reading in the 80s. She lives alone but brother lives close by. She can transfer to the wheelchair. She was on the commode and when she was trying to get up her knees buckled and she fell down. And she called the EMS. For EMS she was hypoxic and she was placed on nonrebreather mask and brought him to the ER. When trying to place her mask Ventimask she was desaturating in the ER. Patient denies any cough. Has some headache. Vision is okay. No runny nose or sore throat. Denies any chest pain. No nausea. No abdominal pain. Micturating a lot and she attributed it to water pill. Normal bowel movements. Able to give her history. Acute on chronic respiratory failure with hypoxia and hypercapnia History of interstitial lung disease hypersensitive pneumonitis Multifocal pneumonia and ILD flare Follows with [facility] pulmonary On home oxygen 6 L at rest and 8 to 10 L with exertion. Last few months she is on BiPAP in the nighttime and sometimes in daytime Wheelchair-bound because of the pulmonary issues Currently requiring non breather mask Will place on BiPAP IV Solu-Medrol 40 mg 3 times daily and nebs [id number] Continue home inhalers CTA chest multifocal pneumonia Will continue with Zosyn and Doxy Initial lactic acid 2.1 repeat is 1 Respiratory bio fire negative Pulmonary consult in a.m. Close monitoring telemetry Chronic diastolic CHF Continue home Bumex Obstructive sleep apnea On BiPAP nightly Paroxysmal atrial fibrillation Paroxysmal atrial tachycardia Tachybradycardia syndrome Status post pacemaker On sotalol Not on anticoagulation secondary to chronic anemia and GI bleeding History of ovarian cancer Status post bilateral salpingo-oophorectomy and hysterectomy Treated with single agent carboplatin Follows with heme-onc History of hemolytic anemia On prednisone 10 mg daily which will be held currently as patient getting Solu- Medrol Hemoglobin 9.1 around baseline CKD stage III Creatinine 0.8 today Will follow labs Bilateral nonobstructing renal stones 1.6 cm Follow-up with urology Splenomegaly Needs follow-up Mood disorder On Zoloft and Ativan as needed Hypertension On amlodipine and Bumex Will monitor GERD On omeprazole Diabetes Hold metformin Sliding scale Will monitor Thrombocytopenia Platelets 123 Chronic Follow labs DVT prophylaxis Lovenox Monitor platelets Disposition Telemetry CODE STATUS full code if there is chance of recovery as per my discussion with the patient History of Present Illness Chief Complaint: Shortness of breath Primary Care Provider: Kat Hawthorne DO 68-year-old female with past medical history significant for chronic respiratory failure with hypoxia, interstitial lung disease, hypersensitivity pneumonitis, obstructive sleep apnea, COPD, morbid obesity, CHF with preserved left ventricular function, paroxysmal atrial fibrillation, tachybradycardia syndrome, paroxysmal atrial tachycardia, status post pacemaker, hypertension, history of secondary esophageal varices without bleeding, pulmonary hypertension, history of CAD, history of GERD with esophagitis, history of choledocholithiasis, hepatic cirrhosis, CKD stage III, osteoarthrosis, acquired hemolytic anemia, BILLY , history of ovarian cancer, history of kidney stones, history of unspecified mood disorder, who lives alone at home and is wheelchair-bound and on oxygen 6 to 7 L at home is brought in because of fall and hypoxia. Patient states last couple of days feeling weak and loss of appetite. And feeling feverish. And feeling short of breath. Her oxygen saturation reading in the 80s. She lives alone but brother lives close by. She can transfer to the wheelchair. She was on the commode and when she was trying to get up her knees buckled and she fell down. And she called the EMS. For EMS she was hypoxic and she was placed on nonrebreather mask and brought him to the ER. When trying to place her mask Ventimask she was desaturating in the ER. Patient denies any cough. Has some headache. Vision is okay. No runny nose or sore throat. Denies any chest pain. No nausea. No abdominal pain. Micturating a lot and she attributed it to water pill. Normal bowel movements. Able to give her history. Past medical history. As mentioned above Past surgical history. Bilateral knee arthroplasty. Right bone debridement. Colonoscopy. Cystoscopy. EGD with endoscopic ultrasound. ERCP with stone removal. Expiratory laparotomy. Gastric revision for obesity. Pacemaker placement. Injection of lumbosacral spine. Tonsillectomy. Inguinal hernia repair. Revision of the right knee joint. Removal of kidney stones x 2. Total abdominal hysterectomy with removal of tubes. Social history. Lives alone. Quit smoking . Smoked for 5 years. No alcohol use. No drug use. Family history. Aunt had breast cancer. Nephew had sarcoma of appendix. Father had heart disorder. Mother had lupus and scleroderma. Paternal grandfather had heart disorder. Brother had fatty liver. Allergies Allergy/AdvReac Type Severity Reaction Status Date / Time levofloxacin Allergy Intermediate LE Verified 03/22/24 10:18 swelling and blistering paclitaxel [From Taxol] Allergy Intermediate facial Verified 03/22/24 10:18 flushing, bradycardia doxorubicin AdvReac Severe Hypoxia Verified 03/22/24 10:18 clindamycin AdvReac Intermediate PT Verified 03/22/24 10:18 CONTRACTED C-DIFF shellfish derived AdvReac Intermediate NAUSEA,DIARRHEA, Verified 03/22/24 10:18 VOMITING adhesive AdvReac Mild SKIN Verified 03/22/24 10:18 BLISTERS SOME TIMES Home Medications Medication Instructions Recorded Confirmed Type amlodipine 5 mg tablet 5 mg PO DAILY 07/25/24 07/25/24 History amoxicillin 500 mg capsule 2,000 mg PO UD 07/25/24 07/25/24 History budesonide 0.5 mg/2 mL suspension 0.5 mg inhalation DAILYBB 07/25/24 07/25/24 History for nebulization bumetanide 2 mg tablet 2 mg PO BID 07/25/24 07/25/24 History cyclobenzaprine 5 mg tablet 5 mg PO BID PRN muscle spasms 07/25/24 07/25/24 History fosfomycin tromethamine 3 gram 3 g PO WK 07/25/24 07/25/24 History oral packet gabapentin 300 mg capsule 300 mg PO TID 07/25/24 07/25/24 History hydroxyzine HCl 25 mg tablet 25 mg PO HS PRN Itching 07/25/24 07/25/24 History ipratropium 0.5 mg-albuterol 3 mg 3 ml inhalation QID PRN sob 07/25/24 07/25/24 History (2.5 mg base)/3 mL nebulization soln lorazepam 0.5 mg tablet 0.5 mg PO TID PRN Anxiety 07/25/24 07/25/24 History metformin 500 mg tablet,extended 500 mg PO DAILY 07/25/24 07/25/24 History release 24 hr montelukast 10 mg tablet 10 mg PO DAILY 07/25/24 07/25/24 History omeprazole 20 mg capsule,delayed 20 mg PO BID 07/25/24 07/25/24 History release prednisone 10 mg tablet 10 mg PO DAILY 07/25/24 07/25/24 History sertraline 100 mg tablet 100 mg PO DAILY 07/25/24 07/25/24 History sotalol 80 mg tablet 80 mg PO BID 07/25/24 07/25/24 History Past Med/Surg History Problem List (Updated 07/25/24 @ 02:50 by Darrell Huff MD) Fall (Acute) Sepsis (Acute) Pneumonia (Acute) Acute on chronic respiratory failure with hypoxia and hypercapnia (Acute) Acute on chronic respiratory failure with hypoxia and hypercapnia Respiratory acidosis (Acute) Anemia (Acute) Mood disorder Steroid dependent Hypersensitivity pneumonitis Acute dyspnea (Acute) Acute respiratory failure with hypoxia and hypercapnia (Acute) Acute exacerbation of CHF (congestive heart failure) (Acute) Pacemaker IMPLANTED APRIL 2020 FOR A-FIB/TACHY-LAKEISHA SYNDROME (FOLLOWS WITH DR. WELSH). 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: underwent procedure without any complications; was monitored for 6 doses of sotalol before being discharged home Liver cirrhosis secondary to WEIR Paroxysmal atrial fibrillation Chronic anemia Obesity, morbid, BMI 40.0-49.9 (Chronic) Ovarian cancer (Acute) BERRY (obstructive sleep apnea) Chronic hypoxemic respiratory failure (Acute) Interstitial lung disease (Acute) Sick sinus syndrome BERRY (obstructive sleep apnea) On nocturnal O2 at 2lpm- could not tolerate CPAP per records Atrial fibrillation No AC due to GI bleed and anemia GERD (gastroesophageal reflux disease) (Chronic) HTN (hypertension) (Chronic) CKD (chronic kidney disease), stage III (Chronic) follows with Dr. Lepe H/O cystoscopy (Chronic) H/O gastric bypass (Chronic) "1980, reversed in same year" H/O arthroscopy of knee (Chronic) History of herniorrhaphy (Chronic) VENTRAL HERNIA REPAIR= 04/27/17= GRADE VIEW 2, CLEMENTE#2, ETT 7.0 AT [facility] Anemia (Chronic) hx blood transfusions Hgb baseline 8-9 Spinal stenosis (Chronic) HX On home oxygen therapy (Chronic) 3L/MIN NC PRN SOB Medical History Supracondylar fracture of right femur Choledocholithiasis with obstruction S/p ERCP with stent placement on 01/20/23 Obesity (BMI 30-39.9) Ovarian cancer dx'd 07/2020 - surgery + chemo Osteoarthritis Anxiety and depression Restless leg syndrome History of kidney stones History of renal calculi History of recurrent UTI (urinary tract infection) Spinal stenosis of lumbar region History of blood transfusion 05/2020 Kidney stones Irritable bowel syndrome (IBS) Anxiety Depression Ventral hernia Surgical History S/P left knee arthroscopy History of vascular access device removed History of ERCP (~09/2020) History of appendectomy (~09/07/20) History of total hysterectomy with bilateral salpingo-oophorectomy (BSO) (~09/07/20) @ [facility] with appy at same time History of esophagogastroduodenoscopy (EGD) History of colonoscopy Beason teeth removed S/P adenoidectomy Family History Mother Scleroderma Lupus Family history of reaction to anesthesia nausea Father Coronary heart disease Heart disease Brother Fatty liver Aunt Cancer unspecified Grandfather (Paternal) Heart disease Grandfather (Maternal) Lung disease Grandmother (Paternal) Stroke Grandmother (Maternal) Family history of diabetes mellitus Social History Smoking Status: Never smoker Tobacco Type: Cigarettes Age Started Using Tobacco: 26; Age Quit Using Tobacco: 38; Cigarettes Per Day: 10-20; Second Hand Exposure: No; Do You Dip or Chew Tobacco: No; Hx Alcohol Use: No Hx Substance Use: No Preferred Language: Mohawk Communication Ability: Effective Visual Impairment: No Limitations Conduit Helper Required: No Beliefs That Will Affect Care: None marital status: Current Living Situation: Alone Current Living Situation Comment: home health current occupational status: retired How many Children do You have: 0 Feels Safe at Home: Yes Diet: regular during the past year weight has: remained stable Assistive Devices: Oxygen - Continuous, Wheelchair and Other Review of Systems Review of Systems: All systems reviewed & are unremarkable except as noted in HPI & below Physical Exam Physical Exam: General- Not in acute distress Head- atraumatic Eyes- PERRL. ENT- oropharynx dry Neck- supple, no JVD. Lungs- diminished b/l breath sounds, mild crackles at bases Heart- regular rhythm; no murmur, no gallop. Abdomen- normal bowel sounds, soft, nontender, no distension Extremities- mild b/l lower extremity edema present, no erythema seen Neuro- alert, oriented PERRL, no facial palsy; no dysarthria; moves extremities Results & Data Results & Data Vital Signs (Past 12 Hours) Vital Signs Temp Pulse Pulse Resp BP BP Pulse Ox 07/24/24 22:24 78 20 146/67 H 93 07/24/24 20:54 78 07/24/24 20:42 95 07/24/24 20:38 98 07/24/24 20:36 64 L 07/24/24 20:35 91 07/24/24 20:30 36.9 C 79 18 140/88 91 07/24/24 20:24 13 140/88 97 O2 Del Method O2 Flow Rate 07/24/24 22:24 Oxymask 07/24/24 20:54 07/24/24 20:42 Oxymask 07/24/24 20:38 Non-rebreather 07/24/24 20:36 Oxymask, Non-rebreather 10 07/24/24 20:35 Oxymask, Non-rebreather 07/24/24 20:30 Non-rebreather 15 07/24/24 20:24 Room Air Diagnostic Findings Laboratory Results WBC 9.73 K/ul (4.8-10.8) 07/24/24 20:43 RBC 3.37 M/uL (4.20-5.40) L 07/24/24 20:43 Hgb 9.1 g/dl (12.0-16.0) L 07/24/24 20:43 Hct 32.2 % (37.0-47.0) L 07/24/24 20:43 MCV 95.5 fL (80.0-100.0) 07/24/24 20:43 MCH 27.0 pg (25.0-34.0) 07/24/24 20:43 MCHC 28.3 g/dL (32.0-36.0) L 07/24/24 20:43 RDW Std Deviation 81.6 fL (36.4-46.3) H 07/24/24 20:43 RDW Coeff of Patrica 23.2 % (11.5-14.5) H 07/24/24 20:43 Plt Count 123 K/uL (130-400) L 07/24/24 20:43 Immature Gran % (Auto) 1.7 % 07/24/24 20:43 Neut % (Auto) 88.0 % 07/24/24 20:43 Lymph % (Auto) 3.7 % 07/24/24 20:43 [place] % (Auto) 6.0 % 07/24/24 20:43 Eos % (Auto) 0.4 % 07/24/24 20:43 Baso % (Auto) 0.2 % 07/24/24 20:43 Neut # (Auto) 8.56 K/uL (1.40-6.50) H 07/24/24 20:43 Lymph # (Auto) 0.36 K/uL (1.20-3.40) L 07/24/24 20:43 [place] # (Auto) 0.58 K/uL (0.11-0.59) 07/24/24 20:43 Eos # (Auto) 0.04 K/uL (0.00-0.50) 07/24/24 20:43 Baso # (Auto) 0.02 K/uL (0.00-0.20) 07/24/24 20:43 Immature Gran # (Auto) 0.17 K/uL (0.01-0.20) 07/24/24 20:43 Absolute Nucleated RBC 0.06 K/uL (0.00-0.12) 07/24/24 20:43 Nucleated RBC % (auto) 0.6 % 07/24/24 20:43 Polychromasia 1+ 07/24/24 20:43 Basophilic Stippling 1+ 07/24/24 20:43 Anisocytosis Present 07/24/24 20:43 Tear Drop Cells 1+ 07/24/24 20:43 Stomatocytes 2+ 07/24/24 20:43 PT 11.6 Seconds (9.0-12.0) 07/24/24 23:42 INR 1.1 (0.9-1.1) 07/24/24 23:42 VBG pH 7.33 (7.36-7.41) L 07/24/24 21:37 VBG pCO2 80 mmHg (38-50) H 07/24/24 21:37 VBG pO2 47 mmHg 07/24/24 21:37 VBG HCO3 42 mmol/L 07/24/24 21:37 VBG O2 Saturation 76.2 % 07/24/24 21:37 VBG Base Excess 12.5 mEq/L 07/24/24 21:37 Sodium 139 mmol/L (136-145) 07/24/24 20:43 Potassium 4.5 mmol/L (3.5-5.1) 07/24/24 20:43 Chloride 94 mmol/L (98-107) L 07/24/24 20:43 Carbon Dioxide 39 mmol/L (21-32) H 07/24/24 20:43 Anion Gap 6 (3-11) 07/24/24 20:43 BUN 28 mg/dl (6-23) H 07/24/24 20:43 Creatinine 0.89 mg/dl (0.6-1.2) 07/24/24 20:43 Est Cr Clr Drug Dosing Not Reportable 07/24/24 20:43 Est GFR ( Amer) 76.1 ml/min 07/24/24 20:43 Est GFR (Non-Af Amer) 65.7 ml/min 07/24/24 20:43 BUN/Creatinine Ratio 31.5 (10-20) H 07/24/24 20:43 Glucose 203 mg/dl (70-99(Fasting)) H 07/24/24 20:43 Lactate 1.0 mmol/L (0.4-2.0) 07/24/24 22:59 Calcium 9.4 mg/dl (8.6-10.3) 07/24/24 20:43 Magnesium 1.8 mg/dl (1.7-2.4) 07/24/24 20:43 Total Bilirubin 0.8 mg/dl (0.2-1.0) 07/24/24 20:43 Direct Bilirubin 0.2 mg/dl (0-0.2) 07/24/24 20:43 AST 22 U/L (13-39) 07/24/24 20:43 ALT 23 U/L (7-52) 07/24/24 20:43 Alkaline Phosphatase 92 U/L (34-104) 07/24/24 20:43 Troponin I High Sens 26.3 pg/ml (0-14) H 07/24/24 22:59 B-Natriuretic Peptide 360 pg/ml (0-100) H 07/24/24 20:43 Total Protein 7.3 gm/dl (6.0-8.3) 07/24/24 20:43 Albumin 4.3 gm/dl (3.4-5.0) 07/24/24 20:43 Lipase 14 U/L (11-82) 07/24/24 20:43 Procalcitonin 0.23 ng/ml (0-0.5) 07/24/24 20:43 Adenovirus (PCR) Not Detected (NotDetected) 07/24/24 20:43 B. pertussis DNA (PCR) Not Detected (NotDetected) 07/24/24 20:43 B.parapertussis DNA PCR Not Detected (NotDetected) 07/24/24 20:43 C. pneumoniae DNA (PCR) Not Detected (NotDetected) 07/24/24 20:43 Coronavirus OC43 (PCR) Not Detected (NotDetected) 07/24/24 20:43 Coronavirus HKU1 (PCR) Not Detected (NotDetected) 07/24/24 20:43 Coronavirus 229E (PCR) Not Detected (NotDetected) 07/24/24 20:43 SARS-CoV-2 (PCR) Not Detected (NotDetected) 07/24/24 20:43 Coronavirus NL63 (PCR) Not Detected (NotDetected) 07/24/24 20:43 Human Metapneumovir PCR Not Detected (NotDetected) 07/24/24 20:43 Influenza Type A (PCR) Not Detected (NotDetected) 07/24/24 20:43 Influenza Type B (PCR) Not Detected (NotDetected) 07/24/24 20:43 M. pneumoniae (PCR) Not Detected (NotDetected) 07/24/24 20:43 Parainfluenza 1 (PCR) Not Detected (NotDetected) 07/24/24 20:43 Parainfluenza 2 (PCR) Not Detected (NotDetected) 07/24/24 20:43 Parainfluenza 3 (PCR) Not Detected (NotDetected) 07/24/24 20:43 Parainfluenza 4 (PCR) Not Detected (NotDetected) 07/24/24 20:43 RSV (PCR) Not Detected (NotDetected) 07/24/24 20:43 Entero/Rhino (PCR) Not Detected (NotDetected) 07/24/24 20:43 Impressions Chest CTA 07/24/24 21:29 Exam(s): CTA CHEST IV Amt: 119 ml optiray 320 EXAM: CT Angiography Chest With Intravenous Contrast CLINICAL HISTORY: Reason for exam: hypoxia, r/o PE. TECHNIQUE: Axial computed tomographic angiography images of the chest with intravenous contrast. CTDI is 33.01 mGy and DLP is 1692.92 mGy-cm. Automated exposure control was utilized for the study. A dose lowering technique was utilized adhering to the principles of ALARA. MIP reconstructed images were created and reviewed. COMPARISON: No relevant prior studies available. FINDINGS: Pulmonary arteries: Unremarkable. No pulmonary embolism. Aorta: Atherosclerotic changes of the aorta. No thoracic aortic aneurysm. Lungs: Mild ground-glass airspace attenuation with patchy consolidations, concerning for multilobar pneumonia. Pleural space: See below. Heart: Cardiomegaly. No significant pericardial effusion. No evidence of RV dysfunction. Bones/joints: Degenerative changes of the spine. No acute fracture. No dislocation. Soft tissues: Unremarkable. Lymph nodes: Unremarkable. No enlarged lymph nodes. Gallbladder and bile ducts: Cholecystectomy. Spleen: Splenomegaly measures up to 19.1 cm. Stomach and bowel: Ramiro-en-Y gastric bypass. Trace RIGHT pleural effusion. Tubes, lines and devices: Pacemaker leads. IMPRESSION: Mild ground-glass airspace attenuation with patchy consolidations, concerning for multilobar pneumonia. Electronically signed by: David Mixon MD 07/25/24 00:[address] 07/24/24 21:29 Exam(s): CT HEAD Without Contrast EXAM: CT Head Without Intravenous Contrast CLINICAL HISTORY: Reason for exam: fall, weakness. TECHNIQUE: Axial computed tomography images of the head/brain without intravenous contrast. CTDI is 36.9 mGy and DLP is 546.36 mGy-cm. Automated exposure control was utilized for the study. A dose lowering technique was utilized adhering to the principles of ALARA. COMPARISON: No relevant prior studies available. FINDINGS: No acute intracranial hemorrhage. No midline shift or mass effect. The territorial moore-white matter differentiation is maintained throughout. The ventricles and sulci are commensurate with age. The visualized orbits appear grossly unremarkable. The calvarium is intact. The visualized paranasal sinuses and mastoid air cells are grossly clear. IMPRESSION: No acute intracranial hemorrhage, midline shift, or mass effect. Electronically signed by: David Mixon MD 07/25/24 00:20 AM ECG Additional Comments: ECG normal sinus rhythm rate of 78. Left ventricular hypertrophy. No significant change was found. QTc 451 Code Status & VTE Plan VTE Prophylaxis Plan VTE Prophylaxis will be ordered: Yes
[2024-07-25 00:50] LABS: INR 1.1 (0.9-1.1); Prothrombin Time 11.6 Seconds (9.0-12.0)
--- NOTE | 2024-07-25 00:57 | CT Scan Report ---
Exam(s): CTA CHEST IV Amt: 119 ml optiray 320 EXAM: CT Angiography Chest With Intravenous Contrast CLINICAL HISTORY: Reason for exam: hypoxia, r/o PE. TECHNIQUE: Axial computed tomographic angiography images of the chest with intravenous contrast. CTDI is 33.01 mGy and DLP is 1692.92 mGy-cm. Automated exposure control was utilized for the study. A dose lowering technique was utilized adhering to the principles of ALARA. MIP reconstructed images were created and reviewed. COMPARISON: No relevant prior studies available. FINDINGS: Pulmonary arteries: Unremarkable. No pulmonary embolism. Aorta: Atherosclerotic changes of the aorta. No thoracic aortic aneurysm. Lungs: Mild ground-glass airspace attenuation with patchy consolidations, concerning for multilobar pneumonia. Pleural space: See below. Heart: Cardiomegaly. No significant pericardial effusion. No evidence of RV dysfunction. Bones/joints: Degenerative changes of the spine. No acute fracture. No dislocation. Soft tissues: Unremarkable. Lymph nodes: Unremarkable. No enlarged lymph nodes. Gallbladder and bile ducts: Cholecystectomy. Spleen: Splenomegaly measures up to 19.1 cm. Stomach and bowel: Ramiro-en-Y gastric bypass. Trace RIGHT pleural effusion. Tubes, lines and devices: Pacemaker leads. IMPRESSION: Mild ground-glass airspace attenuation with patchy consolidations, concerning for multilobar pneumonia. Electronically signed by: David Mixon MD 07/25/24 00:56 AM
--- NOTE | 2024-07-25 01:03 | CT Scan Report ---
Exam(s): CT ABDOMEN + PELVIS With Contrast IV Amt: 119 ml optiray 320 EXAM: CT Abdomen and Pelvis With Intravenous Contrast CLINICAL HISTORY: Reason for exam: sepsis, ?uti. TECHNIQUE: Axial computed tomography images of the abdomen and pelvis with intravenous contrast. CTDI is 33.01 mGy and DLP is 1692.92 mGy-cm. Automated exposure control was utilized for the study. A dose lowering technique was utilized adhering to the principles of ALARA. CONTRAST: Patient received 119 ml optiray 320 of IV contrast COMPARISON: No relevant prior studies available. FINDINGS: Lung bases: Unremarkable. No mass. No consolidation. ABDOMEN: Liver: Hepatic steatosis. Gallbladder and bile ducts: Common bile duct stent. No calcified stones. Pancreas: Unremarkable. No mass. No ductal dilation. Spleen: Splenomegaly measuring up to 16.3 cm. Adrenals: Unremarkable. No mass. Kidneys and ureters: Bilateral nonobstructing renal stones, measuring up to approximately 1.6 cm. Stomach and bowel: Diverticulosis, without acute diverticulitis. No small bowel obstruction. No free intraperitoneal air. PELVIS: Appendix: No findings to suggest acute appendicitis. Bladder: Unremarkable. No mass. Reproductive: Hysterectomy. ABDOMEN and PELVIS: Intraperitoneal space: Unremarkable. No free air. No significant fluid collection. Bones/joints: Degenerative changes of the spine. No acute fracture. No dislocation. Soft tissues: Unremarkable. Vasculature: Atherosclerotic changes of the aorta. No abdominal aortic aneurysm. Lymph nodes: Unremarkable. No enlarged lymph nodes. IMPRESSION: 1. Hepatic steatosis. 2. Common bile duct stent. 3. Splenomegaly measuring up to 16.3 cm. 4. Bilateral nonobstructing renal stones, measuring up to approximately 1.6 cm. 5. Hysterectomy. 6. Diverticulosis, without acute diverticulitis. No small bowel obstruction. No free intraperitoneal air. Electronically signed by: David Mixon MD 07/25/24 01:02 AM
[2024-07-25] MEDS ORDERED: CARBOHYDRATES FOR HYPOGLYCEMIA PO PRN (02:04)
[2024-07-25] MEDS ORDERED: hydrOXYzine HCl 25 MG TAB PO PRN (02:04)
[2024-07-25] MEDS ORDERED: GLUCOSE 40% GEL 15 GM TUBE PO PRN (02:04)
[2024-07-25] MEDS ORDERED: GLUCOSE 10 TAB/TUBE PO PRN (02:04)
[2024-07-25] MEDS ORDERED: POLYETHYLENE (MIRALAX) 17 GM PACK PO PRN (02:04)
[2024-07-25] MEDS ORDERED: CYCLOBENZAPRINE HCL 5 MG TAB PO PRN (02:04)
[2024-07-25] MEDS ORDERED: NITROGLYCERIN SL 0.4 MG/TAB TAB SL PRN (02:04)
[2024-07-25] MEDS ORDERED: GLUCAGON FOR INJ 1 MG VIAL SQ PRN (02:04)
[2024-07-25] MEDS ORDERED: DEXTROSE 50% 50 ML SYRINGE IV PRN (02:04)
[2024-07-25] MEDS: PIPERACILLIN/TAZOBACTAM 4.5 GM/100 ML BAG IV STA (02:24)
[2024-07-25 03:48] LABS: Appearance Urine Cloudy (Clear); Bacteria Urine Automated 4+ (None Seen); Bilirubin Urine Negative (Negative); Blood Urine Trace (Negative); Cast Urine Automated 0-2 /lpf (0-2); Color Urine Yellow; Epithelial Cell Urine Auto 0-2 /hpf (0-2); Glucose Urine UA Negative (Negative); Ketones Urine Negative (Negative); Leukocyte Esterase Urine 2+ (Negative); Nitrite Urine Positive (Negative); Protein Urine 1+ (Negative); Specific Gravity Urine > 1.045 (1.000-1.030); Urobilinogen Urine Negative (Negative); WBC Urine Automated >50 /hpf (0-5)
[2024-07-25] MEDS: methylPREDNISolone 40 MG in SYRINGE 0 ML IV SCH (05:24)
--- NOTE | 2024-07-25 06:58 | XRay Report ---
XR chest 1V portable HISTORY: 68 years-old Female Sepsis acute sepsis COMPARISON: CT chest 07/24/2024 and also 10/26/2023 TECHNIQUE: AP view of the chest FINDINGS: Dual-lead left subclavian pacer. Cardiomegaly. Chronic interstitial lung disease. The patient is rota elsa toward the left. Pulmonary vascular congestion. A pneumothorax or lobar airspace consolidation. T race pleural effusions. Bones appear grossly intact. IMPRESSION: 1. Cardiomegaly with pulmonary vascular congestion and trace pleural effusions. 2. Chronic interstitial lung disease. ACT 112: Negative or not required by law. The above report was generated using voice recognition software. It may contain grammatical, syntax o r spelling errors. Electronically signed by: Adi Luong M.D. 07/25/2024 6:57 AM
[2024-07-25] MEDS: ALBUT/IPRATROP 3MG/0.5MG NEB 3 ML VIAL NEB SCH (07:46)
[2024-07-25] MEDS: BUDESONIDE 0.5 MG/2 ML VIAL (PULMICORT) INH SCH (07:46)
[2024-07-25 07:58] LABS: Estimated Average Glucose 128 mg/dl; Hemoglobin A1C 6.1 % (4.5-5.6)
[2024-07-25] MEDS: ENOXAPARIN INJ 40 MG/0.4 ML SYR SQ SCH (08:34)
[2024-07-25] MEDS: BUMETANIDE 1 MG TAB PO SCH (08:35)
[2024-07-25] MEDS: MONTELUKAST SODIUM 10 MG TABLET PO SCH (08:35)
[2024-07-25] MEDS: SOTALOL HCL 80 MG TAB PO SCH (08:35)
[2024-07-25] MEDS: PANTOprazole 40 MG TAB PO SCH (08:35)
[2024-07-25] MEDS: SERTRALINE HCL 100 MG TABLET PO SCH (08:35)
[2024-07-25] MEDS: amLODIPine BESYLATE 5 MG TAB PO SCH (08:35)
[2024-07-25] MEDS: GABAPENTIN 300 MG CAP PO SCH (08:35)
[2024-07-25] MEDS: LORazepam 0.5 MG TAB PO PRN (08:40)
[2024-07-25] MEDS: PIPERACILLIN/TAZOBACTAM 4.5 GM/100 ML BAG IV SCH (08:48)
[2024-07-25] MEDS ORDERED: methylPREDNISolone 125 MG/2 ML VIAL IV SCH (09:00)
--- NOTE | 2024-07-25 09:17 | Hospitalist Progress Note ---
Date of Service July 25, 2024 Assessment & Plan (1) Acute on chronic respiratory failure with hypoxia and hypercapnia: (2) Suspected urinary tract infection: (3) Fall: (4) Interstitial lung disease: (5) Chronic right-sided HF (heart failure): (6) Pulmonary HTN: (7) Liver cirrhosis secondary to WEIR: (8) Paroxysmal atrial fibrillation: Plan Patient presents with acute on chronic hypoxic and hypercarbic respiratory failure in the setting of suspected urinary tract infection weakness, dizziness and fall in the bathroom. Some evidence of some mild volume overload as well. Patient remains critically ill, more dependent on BiPAP than usual, needs hospital level care and interventions and specialty consultation Continue to support with oxygen and BiPAP. Patient is on 6 to 10 L at home Continue with Zosyn, patient history of Pseudomonas UTI, transition to oral doxycycline Give a one-time dose of IV Bumex in addition to her oral Bumex for some mildly elevated BNP and evidence of pleural effusion on CT scan Continue IV steroids for exacerbation of interstitial lung disease, await further input from pulmonary Pulmonary consultation pending Increase insulin coverage strength, anticipate hyperglycemia in the setting of high-dose steroids Monitor urine and blood cultures Therapies Care management to assist with discharge planning. Reviewed advanced directives with patient. Previously she had been DNR. Patient confirms again this hospitalization that she would not want aggressive life resuscitative measures including CPR and mechanical intubation and ventilation 52 minutes spent on care and coordination of care at the bedside, review of EMR, communication with medical team Admission and Anticipated Discharge Date Admission Date: July 25, 2024 Subjective Patient states she is feeling a little bit better. She reports that main reason she came to the emergency room is that she had a fall while standing up off the toilet she felt a little lightheaded and dizzy. She did state over the last few days has been wearing 7 L of oxygen at rest versus 6 L and has used her BiPAP a little bit more. Physical Exam Physical Exam: Constitutional: Alert, moderate distress off of the BiPAP HEENT: Mucous membranes moist. Lungs: Decreased breath sounds, prolonged expiratory phase, diffuse crackles throughout CV: S1-S2, regular Abdomen: Soft, nontender, nondistended Extremities: Trace pretibial edema Neuro: No focal deficits Psych: Cooperative, normal mood Results & Data Results & Data Vital Signs (Past 12 Hours) Vital Signs Pulse Pulse Resp BP Pulse Ox O2 Del Method FiO2 07/25/24 08:12 66 17 138/54 L 97 BiPAP 70 07/25/24 07:47 60 18 96 70 07/25/24 07:47 70 18 96 BiPAP 70 07/25/24 03:28 68 20 144/76 H 97 BiPAP 07/25/24 02:45 71 18 90 70 07/25/24 02:04 BiPAP 07/25/24 02:00 71 16 144/76 H 91 BiPAP 07/25/24 01:05 70 07/25/24 00:15 75 19 97 70 07/25/24 00:00 81 20 95 Oxymask, BiPAP 07/24/24 22:24 78 20 146/67 H 93 Oxymask Diagnostic Findings Reviewed imaging, laboratory and diagnostic studies. Pertinent findings as below. Hemoglobin stable Venous pCO2 essentially at baseline Glucoses reviewed Urinalysis noted (3) Fall Encounter type: initial encounter Qualified Code(s): W19.XXXA - Unspecified fall, initial encounter
[2024-07-25] MEDS: INSULIN ASPART PER UNIT CHARGE SC SCH (09:25)
[2024-07-25] MEDS: BUMETANIDE 2 MG in SYRINGE 0 ML IV ONE (10:22)
[2024-07-25] MEDS ORDERED: DOXYCYCLINE HYCLATE 100 MG in DEXTROSE 5% MINI-B 100 ML IV SCH (12:00)
[2024-07-25 12:10] LABS: iSTAT Hemoglobin 10.9 g/dl (12.0-16.0); iSTAT Ionized Calcium 1.09 mmol/l (1.12-1.32); iSTAT Potassium 4.7 mmol/L (3.3-5.0)
--- NOTE | 2024-07-25 13:47 | Pulmonary Consultation ---
Date of Consultation July 25, 2024 Assessment & Plan (1) Acute respiratory failure with hypoxia and hypercapnia: (2) Hypersensitivity pneumonitis: Plan Impression: 68-year-old female with history of hypersensitivity pneumonitis and concomitant hypoxemic and hypercarbic respiratory failure. She is currently being followed by the [facility] ILD clinic and has had prednisone tapered significantly. Her CT scan does not show significant changes in the fibrotic interstitial changes noted previously and I do not suspect that she has had significant progression of her disease at this point in time. There is no evidence of a flare of her ILD and no indication for steroids currently. She is being treated for possible urinary tract infection and has Pseudomonas in the past. I do not think she currently has a pulmonary infection Recommendations: 1. Hypersensitivity pneumonitis: CT scans independently reviewed and appear to be stable compared to prior imaging studies. Given this finding, I will discontinue the steroids back to her baseline dose. She can follow-up with the [facility] outpatient ILD clinic for additional management in the future. Patient is not a transplant candidate. Can continue to use bronchodilators on an as-needed basis but do not think they need to be scheduled 2. With the lack of fever, normal procalcitonin, and absence of white blood cell count, no antibiotics are needed from a pulmonary standpoint. Will defer to the primary admitting service given the potential source. 3. Hypoxemic and hypercarbic respiratory failure. Given her significant hypercarbia would not try and target oxygen saturations much above 88 to 89%. Patient appears to have responded favorably. Will plan on weaning her off of CPAP BiPAP to oxygen and see how she does. Again would not target oxygen saturations above 89%. 4. Feel her symptoms may be related to fluid overload and she has received an extra dose of Bumex. Would agree with that for now with continued goals at net -1 to 1.5 L per 24 hours. Close attention to electrolytes and kidney function as diuresis progresses is recommended. The above recommendations and plan were extensively discussed with the patient at bedside. Questions were answered to the best my ability. She expressed understanding and is in agreement with the plan as outlined. History of Present Illness Attending Physician: Farhan Mcadams, DO History of Present Illness Asked by hospitalist to assist in evaluation management this patient with chronic hypersensitivity pneumonitis and fibrotic lung disease with concomitant sleep disordered breathing followed by [facility] he was admitted with increasing shortness of breath and a possible UTI. History is obtained from discussion with the patient as well as review the electronic medical record. Patient is a 68-year-old female who typically follows with the [facility] ILD clinic. She has a history of hypoxemic and hypercarbic respiratory failure. She had been intermittently on steroids. She has had multiple admissions to the hospital due to progressive shortness of breath and does have positive airway pressure which she uses nightly. She had been on a higher dose steroids but more recently recently was seen in the pulmonary clinic and had her steroids tapered with anticipation to decrease by 10 mg monthly. She was readmitted to the hospital back in March. She was again admitted in April and presented to the emergency room early this morning with complaints of shortness of breath and weakness. She lives independently but spends majority of her time in a wheelchair. She initially was placed on a nonrebreather which was then transitioned to BiPAP which she has been on since arrival in the emergency room. She was treated empirically with a dose of steroids as well as broad-spectrum antibiotics in the form of doxycycline and Zosyn. Lab studies were remarkable for an elevated BNP and a negative procalcitonin and normal white blood cell count. On my assessment the emergency room the patient is currently on BiPAP 5/5 at 60% and sleeping comfortably. She is easily arousable. She has no respiratory distress and is talking in full sentences with a fullface BiPAP in place. She does not report any dietary indiscretion or significant change in her lower extremity edema. She denies fevers chills night sweats or other constitutional symptoms at home. Allergies Allergy/AdvReac Type Severity Reaction Status Date / Time levofloxacin Allergy Intermediate LE Verified 03/22/24 10:18 swelling and blistering paclitaxel [From Taxol] Allergy Intermediate facial Verified 03/22/24 10:18 flushing, bradycardia doxorubicin AdvReac Severe Hypoxia Verified 03/22/24 10:18 clindamycin AdvReac Intermediate PT Verified 03/22/24 10:18 CONTRACTED C-DIFF shellfish derived AdvReac Intermediate NAUSEA,DIARRHEA, Verified 03/22/24 10:18 VOMITING adhesive AdvReac Mild SKIN Verified 03/22/24 10:18 BLISTERS SOME TIMES Home Medications Medication Instructions Recorded Confirmed Type amlodipine 5 mg tablet 5 mg PO DAILY 07/25/24 07/25/24 History amoxicillin 500 mg capsule 2,000 mg PO UD 07/25/24 07/25/24 History budesonide 0.5 mg/2 mL suspension 0.5 mg inhalation DAILYBB 07/25/24 07/25/24 History for nebulization bumetanide 2 mg tablet 2 mg PO BID 07/25/24 07/25/24 History cyclobenzaprine 5 mg tablet 5 mg PO BID PRN muscle spasms 07/25/24 07/25/24 History fosfomycin tromethamine 3 gram 3 g PO WK 07/25/24 07/25/24 History oral packet gabapentin 300 mg capsule 300 mg PO TID 07/25/24 07/25/24 History hydroxyzine HCl 25 mg tablet 25 mg PO HS PRN Itching 07/25/24 07/25/24 History ipratropium 0.5 mg-albuterol 3 mg 3 ml inhalation QID PRN sob 07/25/24 07/25/24 History (2.5 mg base)/3 mL nebulization soln lorazepam 0.5 mg tablet 0.5 mg PO TID PRN Anxiety 07/25/24 07/25/24 History metformin 500 mg tablet,extended 500 mg PO DAILY 07/25/24 07/25/24 History release 24 hr montelukast 10 mg tablet 10 mg PO DAILY 07/25/24 07/25/24 History omeprazole 20 mg capsule,delayed 20 mg PO BID 07/25/24 07/25/24 History release prednisone 10 mg tablet 10 mg PO DAILY 07/25/24 07/25/24 History sertraline 100 mg tablet 100 mg PO DAILY 07/25/24 07/25/24 History sotalol 80 mg tablet 80 mg PO BID 07/25/24 07/25/24 History Patient History Medical History Supracondylar fracture of right femur Choledocholithiasis with obstruction S/p ERCP with stent placement on 01/20/23 Obesity (BMI 30-39.9) Ovarian cancer dx'd 07/2020 - surgery + chemo Osteoarthritis Anxiety and depression Restless leg syndrome History of kidney stones History of renal calculi History of recurrent UTI (urinary tract infection) Spinal stenosis of lumbar region History of blood transfusion 05/2020 Kidney stones Irritable bowel syndrome (IBS) Anxiety Depression Ventral hernia Surgical History S/P left knee arthroscopy History of vascular access device removed History of ERCP (~09/2020) History of appendectomy (~09/07/20) History of total hysterectomy with bilateral salpingo-oophorectomy (BSO) (~09/07/20) @ [facility] with appy at same time History of esophagogastroduodenoscopy (EGD) History of colonoscopy [place] teeth removed S/P adenoidectomy Family History Mother Scleroderma Lupus Family history of reaction to anesthesia nausea Father Coronary heart disease Heart disease Brother Fatty liver Aunt Cancer unspecified Grandfather (Paternal) Heart disease Grandfather (Maternal) Lung disease Grandmother (Paternal) Stroke Grandmother (Maternal) Family history of diabetes mellitus Social History Smoking Status: Unknown if ever smoked Tobacco Type: Cigarettes Age Started Using Tobacco: 26; Age Quit Using Tobacco: 38; Cigarettes Per Day: 10-20; Second Hand Exposure: No; Do You Dip or Chew Tobacco: No; Hx Alcohol Use: No Hx Substance Use: No Preferred Language: Icelandic Communication Ability: Effective Visual Impairment: No Limitations Grocery Specialist Required: No Beliefs That Will Affect Care: None marital status: Current Living Situation: Alone Current Living Situation Comment: home health current occupational status: retired How many Children do You have: 0 Feels Safe at Home: Yes Diet: regular during the past year weight has: remained stable Assistive Devices: Oxygen - Continuous Review of Systems Review of Systems: Please refer to admission H&P. No additions or deletions Physical Exam Constitutional: WD/WN, vitals as above Neck: trachea midline, no thyromegaly Respiratory: no respiratory distress, no labored breathing, no cough and not tachypneic Auscultation: + crackles; no wheezes Cardiovascular: RRR, no murmur, no edema Rate/Rhythm: regular rate and regular rhythm Gastrointestinal (Abdomen): normal bowel sounds, soft, nontender, no hepatosplenomegaly Musculoskeletal: no cyanosis or clubbing, extremities motor strength 5/5 Neurologic: patellar DTR's 2+ bilat, sensation intact and PERRL, EOMI, accommodation nl, no face palsy, no dysarthria Psychiatric: A+Ox3, euthymic affect Results & Data Results & Data Vital Signs (Past 12 Hours) Vital Signs Pulse Pulse Resp BP Pulse Ox O2 Del Method FiO2 07/25/24 12:29 BiPAP 65 07/25/24 12:29 95 H 20 148/89 H 95 BiPAP 65 07/25/24 10:56 63 20 95 BiPAP 60 07/25/24 10:55 63 20 96 60 07/25/24 09:22 67 07/25/24 08:12 66 17 138/54 L 97 BiPAP 70 07/25/24 07:47 60 18 96 70 07/25/24 07:47 70 18 96 BiPAP 70 07/25/24 03:28 68 20 144/76 H 97 BiPAP 07/25/24 02:45 71 18 90 70 07/25/24 02:04 BiPAP 07/25/24 02:00 71 16 144/76 H 91 BiPAP Critical Care Results & Data Vital Signs (Past 12 Hours) Vital Signs Pulse Pulse Resp BP Pulse Ox O2 Del Method FiO2 07/25/24 12:29 BiPAP 65 07/25/24 12:29 95 H 20 148/89 H 95 BiPAP 65 07/25/24 10:56 63 20 95 BiPAP 60 07/25/24 10:55 63 20 96 60 07/25/24 09:22 67 07/25/24 08:12 66 17 138/54 L 97 BiPAP 70 07/25/24 07:47 60 18 96 70 07/25/24 07:47 70 18 96 BiPAP 70 07/25/24 03:28 68 20 144/76 H 97 BiPAP 07/25/24 02:45 71 18 90 70 07/25/24 02:04 BiPAP 07/25/24 02:00 71 16 144/76 H 91 BiPAP Lab & Micro Results (Past 24 Hours) RBC 3.37 M/uL (4.20-5.40) L 07/24/24 WBC 9.73 K/ul (4.8-10.8) 07/24/24 Hgb 9.1 g/dl (12.0-16.0) L 07/24/24 Hct 32.2 % (37.0-47.0) L 07/24/24 MCV 95.5 fL (80.0-100.0) 07/24/24 MCH 27.0 pg (25.0-34.0) 07/24/24 MCHC 28.3 g/dL (32.0-36.0) L 07/24/24 RDW Standard Deviation 81.6 fL (36.4-46.3) H 07/24/24 RDW Coefficient of Variation 23.2 % (11.5-14.5) H 07/24/24 Plt Count 123 K/uL (130-400) L 07/24/24 Nucleated Red Blood Cells % (auto) 0.6 % 07/24 Nucleated RBC Absolute Count (auto) 0.06 K/uL (0.00-0.12) 0 07/24/24 Neutrophils (%) (Auto) 88.0 % 07/24/24 Lymphocytes (%) (Auto) 3.7 % 07/24/24 Monocytes # (Auto) 0.58 K/uL (0.11-0.59) 07/24/24 Eosinophils # (Auto) 0.04 K/uL (0.00-0.50) 07/24/24 Immature Granulocyte % (Auto) 1.7 % 07/24/24 Neutrophils # (Auto) 8.56 K/uL (1.40-6.50) H 07/24/24 Lymphocytes # (Auto) 0.36 K/uL (1.20-3.40) L 07/24/24 Monocytes # (Auto) 0.58 K/uL (0.11-0.59) 07/24/24 Eosinophils # (Auto) 0.04 K/uL (0.00-0.50) 07/24/24 Basophils # (Auto) 0.02 K/uL (0.00-0.20) 07/24/24 Immature Granulocyte # (Auto) 0.17 K/uL (0.01-0.20) 4 Polychromasia 1+ 07/24/24 Basophilic Stippling 1+ 07/24/24 Anisocytosis Present 07/24/24 Tear Drop Cells 1+ 07/24/24 Stomatocytes 2+ 07/24/24 Na 139 mmol/L (136-145) 07/24/24 K 4.5 mmol/L (3.5-5.1) 07/24/24 Cl 94 mmol/L (98-107) L 07/24/24 CO2 39 mmol/L (21-32) H 07/24/24 Anion Gap 6 (3-11) 07/24/24 BUN 28 mg/dl (6-23) H 07/24/24 Creatinine 0.89 mg/dl (0.6-1.2) 07/24/24 Estimated GFR ( Amer) 76.1 ml/min 07/24/24 Estimated GFR (Non-Af Amer) 65.7 ml/min 07/24/24 BUN/Creatinine Ratio 31.5 (10-20) H 07/24/24 Glu 203 mg/dl (70-99(Fasting)) H 07/24/24 Ca 9.4 mg/dl (8.6-10.3) 07/24/24 Total Bilirubin 0.8 mg/dl (0.2-1.0) 07/24/24 Direct Bilirubin 0.2 mg/dl (0-0.2) 07/24/24 AST 22 U/L (13-39) 07/24/24 ALT 23 U/L (7-52) 07/24/24 Alkaline Phosphatase 92 U/L (34-104) 07/24/24 TP 7.3 gm/dl (6.0-8.3) 07/24/24 Albumin 4.3 gm/dl (3.4-5.0) 07/24/24 Mg 1.8 mg/dl (1.7-2.4) 07/24/24 20:43 Calcium Level 9.4 mg/dl (8.6-10.3) 07/24/24 20:43 Prothromb Time International Ratio 1.1 (0.9-1.1) 07/24/24 23:4 2 Venous Blood pH 7.33 (7.36-7.41) L 07/24/24 21:37 Venous Blood Partial Pressure CO2 80 mmHg (38-50) H 07/24/24 21 :37 Venous Blood Partial Pressure O2 47 mmHg 07/24/24 21:37 Venous Blood HCO3 42 mmol/L 07/24/24 21:37 Venous Blood Base Excess 12.5 mEq/L 07/24/24 21:37 Venous Blood Oxygen Saturation 76.2 % 07/24/24 21:37 Diagnostic Findings (Past 24 Hours) Chest X-Ray 07/24/24 20:42 XR chest 1V portable HISTORY: 68 years-old Female Sepsis acute sepsis COMPARISON: CT chest 07/24/2024 and also 10/26/2023 TECHNIQUE: AP view of the chest FINDINGS: Dual-lead left subclavian pacer. Cardiomegaly. Chronic interstitial lung disease. The patient is rotated toward the left. Pulmonary vascular congestion. A pneumothorax or lobar airspace consolidation. Trace pleural effusions. Bones appear grossly intact. IMPRESSION: 1. Cardiomegaly with pulmonary vascular congestion and trace pleural effusions. 2. Chronic interstitial lung disease. ACT 112: Negative or not required by law. The above report was generated using voice recognition software. It may contain grammatical, syntax or spelling errors. Electronically signed by: Adi Luong M.D. 07/25/2024 6:57 AM Chest CTA 07/24/24 21:29 Exam(s): CTA CHEST IV Amt: 119 ml optiray 320 EXAM: CT Angiography Chest With Intravenous Contrast CLINICAL HISTORY: Reason for exam: hypoxia, r/o PE. TECHNIQUE: Axial computed tomographic angiography images of the chest with intravenous contrast. CTDI is 33.01 mGy and DLP is 1692.92 mGy-cm. Automated exposure control was utilized for the study. A dose lowering technique was utilized adhering to the principles of ALARA. MIP reconstructed images were created and reviewed. COMPARISON: No relevant prior studies available. FINDINGS: Pulmonary arteries: Unremarkable. No pulmonary embolism. Aorta: Atherosclerotic changes of the aorta. No thoracic aortic aneurysm. Lungs: Mild ground-glass airspace attenuation with patchy consolidations, concerning for multilobar pneumonia. Pleural space: See below. Heart: Cardiomegaly. No significant pericardial effusion. No evidence of RV dysfunction. Bones/joints: Degenerative changes of the spine. No acute fracture. No dislocation. Soft tissues: Unremarkable. Lymph nodes: Unremarkable. No enlarged lymph nodes. Gallbladder and bile ducts: Cholecystectomy. Spleen: Splenomegaly measures up to 19.1 cm. Stomach and bowel: Ramiro-en-Y gastric bypass. Trace RIGHT pleural effusion. Tubes, lines and devices: Pacemaker leads. IMPRESSION: Mild ground-glass airspace attenuation with patchy consolidations, concerning for multilobar pneumonia. Electronically signed by: David Mixon MD 07/25/24 00:[address] 07/24/24 21:29 Exam(s): CT HEAD Without Contrast EXAM: CT Head Without Intravenous Contrast CLINICAL HISTORY: Reason for exam: fall, weakness. TECHNIQUE: Axial computed tomography images of the head/brain without intravenous contrast. CTDI is 36.9 mGy and DLP is 546.36 mGy-cm. Automated exposure control was utilized for the study. A dose lowering technique was utilized adhering to the principles of ALARA. COMPARISON: No relevant prior studies available. FINDINGS: No acute intracranial hemorrhage. No midline shift or mass effect. The territorial moore-white matter differentiation is maintained throughout. The ventricles and sulci are commensurate with age. The visualized orbits appear grossly unremarkable. The calvarium is intact. The visualized paranasal sinuses and mastoid air cells are grossly clear. IMPRESSION: No acute intracranial hemorrhage, midline shift, or mass effect. Electronically signed by: David Mixon MD 07/25/24 00:20 AM Abdomen/Pelvis CT 07/24/24 21:31 Exam(s): CT ABDOMEN + PELVIS With Contrast IV Amt: 119 ml optiray 320 EXAM: CT Abdomen and Pelvis With Intravenous Contrast CLINICAL HISTORY: Reason for exam: sepsis, ?uti. TECHNIQUE: Axial computed tomography images of the abdomen and pelvis with intravenous contrast. CTDI is 33.01 mGy and DLP is 1692.92 mGy-cm. Automated exposure control was utilized for the study. A dose lowering technique was utilized adhering to the principles of ALARA. CONTRAST: Patient received 119 ml optiray 320 of IV contrast COMPARISON: No relevant prior studies available. FINDINGS: Lung bases: Unremarkable. No mass. No consolidation. ABDOMEN: Liver: Hepatic steatosis. Gallbladder and bile ducts: Common bile duct stent. No calcified stones. Pancreas: Unremarkable. No mass. No ductal dilation. Spleen: Splenomegaly measuring up to 16.3 cm. Adrenals: Unremarkable. No mass. Kidneys and ureters: Bilateral nonobstructing renal stones, measuring up to approximately 1.6 cm. Stomach and bowel: Diverticulosis, without acute diverticulitis. No small bowel obstruction. No free intraperitoneal air. PELVIS: Appendix: No findings to suggest acute appendicitis. Bladder: Unremarkable. No mass. Reproductive: Hysterectomy. ABDOMEN and PELVIS: Intraperitoneal space: Unremarkable. No free air. No significant fluid collection. Bones/joints: Degenerative changes of the spine. No acute fracture. No dislocation. Soft tissues: Unremarkable. Vasculature: Atherosclerotic changes of the aorta. No abdominal aortic aneurysm. Lymph nodes: Unremarkable. No enlarged lymph nodes. IMPRESSION: 1. Hepatic steatosis. 2. Common bile duct stent. 3. Splenomegaly measuring up to 16.3 cm. 4. Bilateral nonobstructing renal stones, measuring up to approximately 1.6 cm. 5. Hysterectomy. 6. Diverticulosis, without acute diverticulitis. No small bowel obstruction. No free intraperitoneal air. Electronically signed by: David Mixon MD 07/25/24 01:02 AM I & O Totals 24 Hours 07/24/24 07/25/24 07/26/24 06:59 06:59 06:59 Intake Total 250 / 250 Balance 250 / 250 Cumulative 07/24/24 20:18 thru 07/25/24 12:29 Intake Total 250 Balance 250 RT Ventilator Mngmt (Last Documented) Ventilator Ordered Settings Respiratory Rate 20 07/25/24 12:29 Fraction of Inspired Oxygen 65 07/25/24 12:29 Ventilator - PT Measurements Respiratory Rate 20 PG Care Time/CCT Total # of Minutes Spent Total Time Spent with Patient: Total time spent is greater than 50% in coordination of care (as documented) at patient's floor/unit and/or counseling patient: Coding Level of Care Code 50491 INT INP/OBS CARE 3/75MIN Diagnoses Acute respiratory failure with hypoxia and hypercapnia J96.01; J96.02 Hypersensitivity pneumonitis J67.9
[2024-07-25] MEDS: ALBUT/IPRATROP 3MG/0.5MG NEB 3 ML VIAL NEB PRN (14:20)
[2024-07-25] MEDS: DOXYCYCLINE HYCLATE 100 MG CAP PO SCH (20:24)
--- NOTE | 2024-07-26 06:36 | Electrocardiogram Report ---
Test Reason : Blood Pressure : */* mmHG Vent. Rate : 78 BPM Atrial Rate : 78 BPM P-R Int : 138 ms QRS Dur : 90 ms QT Int : 396 ms P-R-T Axes : 20 -10 72 degrees QTcB Int : 451 ms Normal sinus rhythm Left ventricular hypertrophy with repolarization abnormality ( R in aVL ) Abnormal ECG When compared with ECG of 15-Apr-2024 15:00, No significant change was found Confirmed by Liborio Ghotra ([id number]) on 07/26/2024 6:36:48 AM Referred By: REFERRED SELF Confirmed By: Liborio Ghotra
[2024-07-26 07:24] LABS: Hematocrit (blood only) 26.4 % (37.0-47.0); Hemoglobin 7.9 g/dl (12.0-16.0); Mean Corpuscular Hemoglobin 27.4 pg (25.0-34.0); Mean Corpuscular Hgb Conc 29.9 g/dL (32.0-36.0); Mean Corpuscular Volume 91.7 fL (80.0-100.0); Nucleated RBC # (auto) 0.03 K/uL (0.00-0.12); Nucleated RBC % (auto) 0.6 %; Platelet Count 108 K/uL (130-400); RDW Coefficient of Variation 22.8 % (11.5-14.5); Red Blood Count 2.88 M/uL (4.20-5.40); White Blood Count 5.32 K/ul (4.8-10.8)
[2024-07-26 07:51] LABS: BUN Creatinine Ratio 36.4 (10-20); Calcium 9.2 mg/dl (8.6-10.3); Creatinine Clr Calc Pharmacy 58.7 ml/min; Est GFR (African American) 60.9 ml/min; Est GFR (Non-African American) 52.6 ml/min; Magnesium 1.8 mg/dl (1.7-2.4); Potassium 3.7 mmol/L (3.5-5.1)
[2024-07-26] MEDS: predniSONE 10 MG TABLET PO SCH (09:03)
--- NOTE | 2024-07-26 10:17 | Pulmonology Progress Note ---
Date of Service July 26, 2024 Assessment & Plan (1) Acute respiratory failure with hypoxia and hypercapnia: (2) Hypersensitivity pneumonitis: Plan Impression: 68-year-old female with history of hypersensitivity pneumonitis and concomitant hypoxemic and hypercarbic respiratory failure. She is currently being followed by the [facility] ILD clinic and has had prednisone tapered significantly. Her CT scan does not show significant changes in the fibrotic interstitial changes noted previously and I do not suspect that she has had significant progression of her disease at this point in time. There is no evidence of a flare of her ILD and no indication for steroids currently. She is being treated for possible urinary tract infection and has Pseudomonas in the past. I do not think she currently has a pulmonary infection. She does appear mildly fluid overloaded and diuresis has been initiated which seems to have offered her some clinical improvement. Recommendations: 1. Hypersensitivity pneumonitis: Stable. Continue outpatient dose of steroids. She can follow-up with the [facility] outpatient ILD clinic for additional management in the future. Patient is not a transplant candidate. Can continue to use bronchodilators on an as-needed basis but do not think they need to be scheduled 2. Hypoxemic and hypercarbic respiratory failure. Given her significant hypercarbia would not try and target oxygen saturations much above 88 to 89%. Patient appears to have responded favorably. Will plan on weaning her off of CPAP BiPAP to oxygen and see how she does. Again would not target oxygen saturations above 89%. 3. Continue diuresis as tolerated. Would try and target 1 to 2 L net negative per 24 hours. The above recommendations and plan were extensively discussed with the patient at bedside. Questions were answered to the best my ability. She expressed understanding and is in agreement with the plan as outlined. Once her oxygen requirement can be safely met at home and that the patient can demonstrate ability to care for self at home, disposition can be considered. She can follow-up in the outpatient setting with [facility] pulmonary with whom she is established Admission and Anticipated Discharge Date Admission Date: July 25, 2024 Subjective Patient seen and examined. EMR reviewed. The patient sitting up in a chair. She feels her breathing is better but not quite back to baseline. She did desaturate down into the 70s despite 6 L of nasal cannula while transferring from bed to chair. Had to be bumped up transiently to 15 L and now back to 10. She is not coughing or expectorating phlegm. She denies any chest pain or palpitations. No wheezing. Review of Systems 2 Review of Systems: All systems reviewed & are unremarkable except as noted in Subjective Physical Exam 2 Constitutional: WD/WN, vitals as above Neck: trachea midline, no thyromegaly Respiratory: no respiratory distress, no labored breathing, no cough and not tachypneic Auscultation: + crackles; no wheezes Cardiovascular: RRR, no murmur, no edema Rate/Rhythm: regular rate and regular rhythm Gastrointestinal (Abdomen): normal bowel sounds, soft, nontender, no hepatosplenomegaly Musculoskeletal: no cyanosis or clubbing, extremities motor strength 5/5 Neurologic: patellar DTR's 2+ bilat, sensation intact and PERRL, EOMI, accommodation nl, no face palsy, no dysarthria Psychiatric: A+Ox3, euthymic affect Results & Data Results & Data Vital Signs (Past 12 Hours) Vital Signs Temp Pulse Pulse Resp BP BP Pulse Ox 07/26/24 07:47 07/26/24 07:25 63 23 98 07/26/24 07:23 63 23 98 07/26/24 07:21 36.4 C L 65 18 138/81 90 07/26/24 04:23 36.8 C 64 19 135/80 95 07/26/24 03:51 62 16 92 07/25/24 23:23 68 07/25/24 22:55 07/25/24 22:30 36.9 C 66 20 113/63 93 07/25/24 22:16 62 19 94 O2 Del Method O2 Flow Rate FiO2 07/26/24 07:47 High Flow Nasal Cannula 40 65 07/26/24 07:25 High Flow Nasal Cannula 40 65 07/26/24 07:23 High Flow Nasal Cannula 40 65 07/26/24 07:21 BiPAP 07/26/24 04:23 BiPAP 07/26/24 03:51 50 07/25/24 23:23 07/25/24 22:55 BiPAP, High Flow Nasal Cannula 30 07/25/24 22:30 BiPAP 07/25/24 22:16 50 Laboratory Results 07/26/24 06:52 07/26/24 06:52 Diagnostic Findings No new imaging PG Care Time/CCT Total # of Minutes Spent Total Time Spent with Patient: Total time spent is greater than 50% in coordination of care (as documented) at patient's floor/unit and/or counseling patient: Coding Level of Care Code 47694 SUB INP/OBS CARE 2/35MIN Diagnoses Acute respiratory failure with hypoxia and hypercapnia J96.01; J96.02 Hypersensitivity pneumonitis J67.9
--- NOTE | 2024-07-26 12:46 | Hospitalist Progress Note ---
Date of Service July 26, 2024 Assessment & Plan (1) Acute on chronic respiratory failure with hypoxia and hypercapnia: (2) Urinary tract infection: (3) Fall: (4) Interstitial lung disease: (5) Chronic right-sided HF (heart failure): (6) Pulmonary HTN: (7) Liver cirrhosis secondary to WEIR: (8) Paroxysmal atrial fibrillation: Plan Patient with acute on chronic hypoxic and hypercarbic respiratory failure most likely exacerbated by urinary tract infection Continue antibiotics Monitor urine cultures Encourage activity Try to titrate oxygen to her usual home oxygen Anticipate possible discharge home tomorrow on oral antibiotics pending sensitivities Admission and Anticipated Discharge Date Admission Date: July 25, 2024 Subjective Patient is feeling a bit stronger. Denies any chest pain. Feels her breathing is somewhat improved Physical Exam Physical Exam: Constitutional: Alert HEENT: Mucous membranes moist. Lungs: Decreased breath sounds, no wheezes, chronic crackles CV: S1-S2, regular Abdomen: Soft, nontender, nondistended Extremities: No significant edema Neuro: No focal deficits Psych: Cooperative, normal mood Results & Data Results & Data Vital Signs (Past 12 Hours) Vital Signs Temp Pulse Pulse Resp BP Pulse Ox O2 Del Method 07/26/24 11:29 36.5 C 70 18 136/83 64 L Nasal Cannula 07/26/24 10:44 62 07/26/24 07:47 High Flow Nasal Cannula 07/26/24 07:25 63 23 98 High Flow Nasal Cannula 07/26/24 07:23 63 23 98 High Flow Nasal Cannula 07/26/24 07:21 36.4 C L 65 18 138/81 90 BiPAP 07/26/24 04:23 36.8 C 64 19 135/80 95 BiPAP 07/26/24 03:51 62 16 92 O2 Flow Rate FiO2 07/26/24 11:29 10 07/26/24 10:44 07/26/24 07:47 40 65 07/26/24 07:25 40 65 07/26/24 07:23 40 65 07/26/24 07:21 07/26/24 04:23 07/26/24 03:51 50 Diagnostic Findings Reviewed imaging, laboratory and diagnostic studies. Pertinent findings as below. Urine culture gram-negative bacilli Hemoglobin 7.9, approximately baseline Carbon dioxide 42, baseline (3) Fall Encounter type: initial encounter Qualified Code(s): W19.XXXA - Unspecified fall, initial encounter
[2024-07-27 08:40] LABS: BUN Creatinine Ratio 35.7 (10-20); Calcium 9.3 mg/dl (8.6-10.3); Creatinine Clr Calc Pharmacy 64.1 ml/min; Est GFR (African American) 67.7 ml/min; Est GFR (Non-African American) 58.4 ml/min; Magnesium 1.8 mg/dl (1.7-2.4); Potassium 3.6 mmol/L (3.5-5.1)
[2024-07-27] MEDS: cefTRIAXone SODIUM 2,000 MG/50 ML BAG IV SCH (08:58)
[2024-07-27] MEDS: ACETAMINOPHEN 325 MG TAB PO PRN (09:08)
--- NOTE | 2024-07-27 09:19 | Hospitalist Progress Note ---
Date of Service July 27, 2024 Assessment & Plan (1) Acute on chronic respiratory failure with hypoxia and hypercapnia: (2) Urinary tract infection: (3) Fall: (4) Interstitial lung disease: (5) Chronic right-sided HF (heart failure): (6) Pulmonary HTN: (7) Liver cirrhosis secondary to WEIR: (8) Paroxysmal atrial fibrillation: Plan Patient steadily improving from urinary tract infection. Respiratory status is improving as UTI is improved Transition and narrow antibiotics to Rocephin Continue doxycycline for empiric lung coverage Encourage activity Titrate oxygen down to baseline Instructed patient that she should anticipate discharge home tomorrow Admission and Anticipated Discharge Date Admission Date: July 25, 2024 Subjective Patient states she still feels a bit fatigued and weak. Physical Exam Physical Exam: Constitutional: Alert, nontoxic in appearance HEENT: Mucous membranes moist. Lungs: Decreased breath sounds, prolonged expiratory phase, diffuse crackles throughout CV: S1-S2, regular Abdomen: Soft, nontender, nondistended Extremities: No significant edema Neuro: No focal deficits Psych: Cooperative, normal mood Results & Data Results & Data Vital Signs (Past 12 Hours) Vital Signs Temp Pulse Pulse Resp BP Pulse Ox O2 Del Method 07/27/24 07:26 36.5 C 66 17 134/76 93 High Flow Nasal Cannula 07/27/24 07:04 66 20 93 Nasal Cannula 07/27/24 02:56 64 23 90 07/27/24 00:00 60 24 94 O2 Flow Rate FiO2 07/27/24 07:26 07/27/24 07:04 13 07/27/24 02:56 50 07/27/24 00:00 50 Diagnostic Findings Reviewed imaging, laboratory and diagnostic studies. Pertinent findings as below. Urine culture reviewed Klebsiella growing, sensitivities reviewed BMP at baseline (3) Fall Encounter type: initial encounter Qualified Code(s): W19.XXXA - Unspecified fall, initial encounter
--- NOTE | 2024-07-27 10:07 | Pulmonology Progress Note ---
Date of Service July 27, 2024 Assessment & Plan (1) Acute respiratory failure with hypoxia and hypercapnia: (2) Hypersensitivity pneumonitis: Plan Impression: 68-year-old female with history of hypersensitivity pneumonitis and concomitant hypoxemic and hypercarbic respiratory failure. She is currently being followed by the [facility] ILD clinic and has had prednisone tapered significantly. Her CT scan does not show significant changes in the fibrotic interstitial changes noted previously and I do not suspect that she has had significant progression of her disease at this point in time. There is no evidence of a flare of her ILD and no indication for steroids currently. She is being treated for possible urinary tract infection and has Pseudomonas in the past. I do not think she currently has a pulmonary infection. She does appear mildly fluid overloaded and diuresis has been initiated which seems to have offered her some clinical improvement. Recommendations: 1. Hypersensitivity pneumonitis: Stable. Continue outpatient dose of steroids. She can follow-up with the [facility] outpatient ILD clinic for additional management in the future. Patient is not a transplant candidate. Can continue to use bronchodilators on an as-needed basis but do not think they need to be scheduled 2. Hypoxemic and hypercarbic respiratory failure. Given her significant hypercarbia would not try and target oxygen saturations much above 88 to 89%. Patient appears to have responded favorably. Continue nocturnal noninvasive positive pressure ventilation. Her hypoxemia is partly attributable to her elevated CO2 and this will not correct with supplemental oxygen. Again would not target oxygen saturations above 89%. 3. Continue diuresis as tolerated. Would try and target 1 to 2 L net negative per 24 hours. May consider 1 or 2 doses of Diamox if contraction alkalosis becomes a problematic The above recommendations and plan were extensively discussed with the patient at bedside. Questions were answered to the best my ability. She can follow-up in the outpatient setting with [facility] pulmonary with whom she is established. Will follow peripherally. Feel free to contact us with questions or concerns Admission and Anticipated Discharge Date Admission Date: July 25, 2024 Subjective Patient seen and examined. EMR reviewed. The patient is sitting up in bed. She is breathing comfortably. She is on 10 L oxygen. Her baseline is typically 6-7. She is not reporting any cough or sputum production. She did have antibiotics adjusted. She denies chest pain or palpitation Review of Systems 2 Review of Systems: All systems reviewed & are unremarkable except as noted in Subjective Physical Exam 2 Constitutional: WD/WN, vitals as above Neck: trachea midline, no thyromegaly Respiratory: no respiratory distress, no labored breathing, no cough and not tachypneic Auscultation: + crackles; no wheezes Cardiovascular: RRR, no murmur, no edema Rate/Rhythm: regular rate and regular rhythm Gastrointestinal (Abdomen): normal bowel sounds, soft, nontender, no hepatosplenomegaly Musculoskeletal: no cyanosis or clubbing, extremities motor strength 5/5 Neurologic: patellar DTR's 2+ bilat, sensation intact and PERRL, EOMI, accommodation nl, no face palsy, no dysarthria Psychiatric: A+Ox3, euthymic affect Results & Data Results & Data Vital Signs (Past 12 Hours) Vital Signs Temp Pulse Pulse Resp BP Pulse Ox O2 Del Method 07/27/24 07:26 36.5 C 66 17 134/76 93 High Flow Nasal Cannula 07/27/24 07:04 66 20 93 Nasal Cannula 07/27/24 02:56 64 23 90 07/27/24 00:00 60 24 94 O2 Flow Rate FiO2 07/27/24 07:26 07/27/24 07:04 13 07/27/24 02:56 50 07/27/24 00:00 50 Laboratory Results 07/26/24 06:52 07/27/24 07:46 Diagnostic Findings No new imaging PG Care Time/CCT Total # of Minutes Spent Total Time Spent with Patient: Total time spent is greater than 50% in coordination of care (as documented) at patient's floor/unit and/or counseling patient: Coding Level of Care Code 89789 SUB INP/OBS CARE 2/35MIN Diagnoses Acute respiratory failure with hypoxia and hypercapnia J96.01; J96.02 Hypersensitivity pneumonitis J67.9
[2024-07-28 07:56] VITALS: PULSE 76; RESP 18; TEMP 98.1; O2SAT 90
[2024-07-28] MEDS: ADVANCED PROBIOTIC 625 MG CAPSULE PO SCH (11:47)
--- NOTE | 2024-07-28 11:55 | Discharge Summary ---
Discharge Summary Date of Service July 28, 2024 Principal Dx & Hospital Course #1 = Principal Diagnosis (1) Acute on chronic respiratory failure with hypoxia and hypercapnia: (2) Urinary tract infection: (3) Fall: (4) Interstitial lung disease: (5) Chronic right-sided HF (heart failure): (6) Pulmonary HTN: (7) Liver cirrhosis secondary to WEIR: (8) Paroxysmal atrial fibrillation: Plan Patient presented to the emergency room with acute weakness and inability to get out of the bathroom and a fall. Patient has known chronic hypoxic and hypercarbic respiratory failure on 6 to 10 L of oxygen at home and this seemed to be exacerbated and urinalysis consistent with urinary tract infection. Patient was admitted to the hospital. Continued on antibiotics for presumed urinary tract infection. She was supported with oxygen which at times required BiPAP and high flow. Pulmonary consultation was obtained. She was initially treated with high-dose steroids. For concerns of possibly exacerbation of her interstitial lung disease. Evaluated by pulmonary did not feel as though she had any progression or exacerbation of her interstitial lung disease. They recommended continue her usual home dose of prednisone and titrating her oxygen to her base oxygen flow. Urine culture did grow Klebsiella. Antibiotics were adjusted based on sensitivities. She completed a full course of IV antibiotics for urinary tract infection here in the hospital. She was titrated down to her usual oxygen flow. On the day of discharge she was feeling improved. Strength was returning to her baseline. She felt confident she can manage at home. Some probiotic was added to her medical regimen as well in the setting of antibiotic induced loose stool. Anticipate this will improve not that she has completed the course of antibiotics. She will follow-up with outpatient providers as previous coordinated. Notes For Next Care Provider Medication Changes From Visit Probiotic added Admission HPI Per Admitting Provider 68-year-old female with past medical history significant for chronic respiratory failure with hypoxia, interstitial lung disease, hypersensitivity pneumonitis, obstructive sleep apnea, COPD, morbid obesity, CHF with preserved left ventricular function, paroxysmal atrial fibrillation, tachybradycardia syndrome, paroxysmal atrial tachycardia, status post pacemaker, hypertension, history of secondary esophageal varices without bleeding, pulmonary hypertension, history of CAD, history of GERD with esophagitis, history of choledocholithiasis, hepatic cirrhosis, CKD stage III, osteoarthrosis, acquired hemolytic anemia, BILLY, history of ovarian cancer, history of kidney stones, history of unspecified mood disorder, who lives alone at home and is wheelchair-bound and on oxygen 6 to 7 L at home is brought in because of fall and hypoxia. Patient states last couple of days feeling weak and loss of appetite. And feeling feverish. And feeling short of breath. Her oxygen saturation reading in the 80s. She lives alone but brother lives close by. She can transfer to the wheelchair. She was on the commode and when she was trying to get up her knees buckled and she fell down. And she called the EMS. For EMS she was hypoxic and she was placed on no nrebreather mask and brought him to the ER. When trying to place her mask Ventimask she was desaturating in the ER. Patient denies any cough. Has some headache. Vision is okay. No runny nose or sore throat. Denies any chest pain. No nausea. No abdominal pain. Micturating a lot and she attributed it to water pill. Normal bowel movements. Able to give her history. Past medical history. As mentioned above Past surgical history. Bilateral knee arthroplasty. Right bone debridement. Colonoscopy. Cystoscopy. EGD with endoscopic ultrasound. ERCP with stone removal. Expiratory laparotomy. Gastric revision for obesity. Pacemaker placement. Injection of lumbosacral spine. Tonsillectomy. Inguinal hernia repair. Revision of the right knee joint. Removal of kidney stones x 2. Total abdominal hysterectomy with removal of tubes. Social history. Lives alone. Quit smoking . Smoked for 5 years. No alcohol use. No drug use. Family history. Aunt had breast cancer. Nephew had sarcoma of appendix. Father had heart disorder. Mother had lupus and scleroderma. Paternal grandfather had heart disorder. Brother had fatty liver. Admission Exam Per Admitting Provider See H&P Discharge Exam Constitutional: Alert HEENT: Mucous membranes moist. Lungs: Decreased breath sounds, prolonged expiratory phase, fine, chronic crackles throughout, no wheezes CV: S1-S2, regular Abdomen: Soft, nontender, nondistended Extremities: No significant edema Neuro: No focal deficits Psych: Cooperative, normal mood Updated Medication List Medication Instructions Recorded Confirmed Type amlodipine 5 mg tablet 5 mg PO DAILY 07/25/24 07/25/24 History amoxicillin 500 mg capsule 2,000 mg PO UD 07/25/24 07/25/24 History budesonide 0.5 mg/2 mL suspension 0.5 mg inhalation DAILYBB 07/25/24 07/25/24 History for nebulization bumetanide 2 mg tablet 2 mg PO BID 07/25/24 07/25/24 History cyclobenzaprine 5 mg tablet 5 mg PO BID PRN muscle spasms 07/25/24 07/25/24 His tory fosfomycin tromethamine 3 gram 3 g PO WK 07/25/24 07/25/24 History oral packet gabapentin 300 mg capsule 300 mg PO TID 07/25/24 07/25/24 History hydroxyzine HCl 25 mg tablet 25 mg PO HS PRN Itching 07/25/24 07/25/24 History ipratropium 0.5 mg-albuterol 3 mg 3 ml inhalation QID PRN sob 07/25/24 07/25/24 History (2.5 mg base)/3 mL nebulization soln lorazepam 0.5 mg tablet 0.5 mg PO TID PRN Anxiety 07/25/24 07/25/24 History metformin 500 mg tablet,extended 500 mg PO DAILY 07/25/24 07/25/24 History release 24 hr montelukast 10 mg tablet 10 mg PO DAILY 07/25/24 07/25/24 History omeprazole 20 mg capsule,delayed 20 mg PO BID 07/25/24 07/25/24 History release prednisone 10 mg tablet 10 mg PO DAILY 07/25/24 07/25/24 History sertraline 100 mg tablet 100 mg PO DAILY 07/25/24 07/25/24 History sotalol 80 mg tablet 80 mg PO BID 07/25/24 07/25/24 History Lactobacillus acidophilus 10 100 mmu cells (0.01 x 10 billion 07/28/24 Rx billion cell capsule (Probiotic) cell) PO BID #60 caps Hospital Stay Data Consultations 07/25/24 08:00 Consult Pulmonology Routine Diagnostic Imagining Performed 07/24/24 21:29 CT angio chest PE protocol Stat CT head/brain wo con Stat 07/24/24 21:31 CT abd pelvis IV con only Stat Reviewed imaging, laboratory and diagnostic studies. Pertinent findings as below. Urine culture Klebsiella sensitive to Zosyn and Rocephin which she received here in the hospital Blood culture no growth to date Pending Results Patient Have Any Pending Studies at Discharge: No Discharge Instructions Given to Patient (Per Discharging Provider) You completed a course of antibiotics for your urinary tract infection in the hospital Continue your usual home oxygen at your usual flow 6 to 10 L Home Health Attestation I certify that this patient is under my care and that I, or a physicians physical therapist assistant working with me, had a face to-face encounter that meets the home health [id number] encounter requirements with this patient. The encounter with the patient was in whole, or in part, for the following medic al condition, which is the primary reason for home health care (list medical condition): I certify that, based on my findings, the following services are medically necessary home health services: My clinical findings support the need for the above services because: Further, I certify that my clinical findings support that this patient is homebound (i.e. absences from home require considerable and taxing effort and are for medical reasons or catholic services or infrequently or of short duration when for other reasons) because: Certification for Home Health Services: Based on the above findings, I certify that this patient is confined to the home and needs intermittent snf care, physical therapy and/or speech therapy or continues to need occupational therapy. The patient is under my care, and I have initiated the establishment of the plan of care. This patient will be followed by a physician who will periodically review the plan of care. Total Time Total Time Spent Total Time Spent (In Minutes): 26
[2024-07-28 11:58] VITALS: BP 149/83
== END 2024-07-28 13:04 | disposition home health service (06) | DRG 189 ==
LOC: ED 20:26 → EDINP 07-25 00:19 → 2S 07-25 02:04 → 3W 07-26 14:10